=== PATIENT | male | born 1960 | race African-American/Black ===

== ENCOUNTER 2016-05-21 05:55 | Inpatient (IN) | payer OTHER ==
[2016-05-21 06:09] VITALS: BMI 34.2
[2016-05-21] MEDS ORDERED: ASPIRIN 81 MG CHEWABLE TABLETS PO ONE (06:12)
--- NOTE | 2016-05-21 06:12 | PDOC ---
History of Present Illness - General Chief Complaint: Chest Pain Stated Complaint: CHEST PAIN Time Seen by Provider: 05/21/16 06:07 History Source: Patient Exam Limitations: No Limitations - History of Present Illness Initial Comments: CHIEF COMPLAINT: 56 y/o afebrile male with PMH asthma, HLD, HTN, NIDDM, angina , ACS with 3 prior MIs (not currently on an anticoagulant) c/o chest tightness and SOB. HISTORY OF PRESENT ILLNESS: The patient states he woke up with his symptoms, took a shower and while in the shower began feeling lightheaded. He states he' s had a productive cough of green sputum for the past 2 days and currently has a slight headache. He denies fever, chills, syncope, runny nose, n/v/d, palpitations, abd pain, back pain. PCP is Dr. Hernandez. No Director Mortgage currently. Vital signs on arrival are notable for pulse of 110, temp of 99.3, BP of 190/ 127. REVIEW OF SYSTEMS: GENERAL/CONSTITUTIONAL: No fever/chills. No weakness. No weight change. HEAD, EYES, EARS, NOSE AND THROAT: No change in vision. No ear pain or discharge. No sore throat. CARDIOVASCULAR: +chest pain and shortness of breath. RESPIRATORY: +productive cough of green sputum. No wheezing or hemoptysis. GASTROINTESTINAL: No abd pain, nausea, vomiting, diarrhea. GENITOURINARY: No dysuria, frequency, or change in urination. MUSCULOSKELETAL: No joint or muscle swelling or pain. No neck or back pain. SKIN: No rash or easy bruising. NEUROLOGIC: +headache. No vertigo, loss of consciousness, or loss of sensation. PHYSICAL EXAM: GENERAL: The patient is awake, alert, and fully oriented, in no acute distress. HEAD: Normal with no signs of trauma. ENT: Pupils equal, round and reactive to light, extraocular movements intact, sclera anicteric, conjunctiva clear. Neck supple. LUNGS: Clear to auscultation bilaterally. Normal excursion. No respiratory distress or use of accessory muscles. Cough with deep inspiration. CV: Rapid rate/regular rhythm, S1/S2, no MRG. Cap refill < 2 sec. ABDOMEN: Soft, non-distended, non-tender even to deep palpation, no hepatomegaly or splenomegaly, no masses. EXTREMITIES: Normal range of motion, no edema. NEUROLOGICAL: Normal speech, normal gait. CN II-XII grossly intact. PSYCH: Normal mood, normal affect. SKIN: Warm, dry, normal turgor, no rashes or lesions noted. Past History - Past Medical History Allergies/Adverse Reactions: Allergies Allergy/AdvReac Type Severity Reaction Status Date / Time IRMA Inhibitors Allergy Verified 02/18/16 16:56 Home Medications: Ambulatory Orders Albuterol Sulfate Inhaler - [Ventolin HFA Inhaler -] 2 inh PO Q4H #1 inh Atorvastatin Ca [Lipitor] 40 mg PO HS 30 Days 12/19/15 Nicotine [Nicotine Patch] 1 each TD DAILY 14 Days 12/19/15 Amlodipine Besylate [Norvasc -] 10 mg PO DAILY #30 tablet 02/22/16 Carvedilol [Coreg -] 25 mg PO BID #30 tablet 02/22/16 Furosemide [Lasix -] 40 mg PO BID@0600,1400 #60 tablet 02/22/16 Glipizide Xl [Glucotrol Xl -] 5 mg PO DAILY@0700 #60 tab.er.24 02/22/16 Hydralazine HCl [Apresoline -] 100 mg PO TID #180 tablet 02/22/16 Isosorbide Mononitrate [Imdur -] 30 mg PO DAILY #30 tab.sr.24h 02/22/16 Spironolactone [Aldactone] 50 mg PO DAILY #30 tablet 02/22/16 Valsartan [Diovan] 320 mg PO DAILY #60 tablet 02/22/16 Anemia: No Asthma: No Cancer: No Cardiac Disorders: Yes (CARDIOMEGALY, heart attack-1995, no stents) CVA: No COPD: No CHF: No Dementia: No Diabetes: Yes GI Disorders: No Disorders: No HTN: Yes Hypercholesterolemia: Yes Kidney Stones: No Liver Disease: No Suicide Attempt (Hx): No Seizures: No Thyroid Disease: No - Surgical History Abdominal Surgery: No Appendectomy: No Cardiac Surgery: No Cholecystectomy: No Lung Surgery: No Neurologic Surgery: No Orthopedic Surgery: Yes (old orthopedic injury fractured left ankle x2) - Reproductive History Testicular Surgery: No - Immunization History Immunization Up to Date: Yes - Psycho/Social/Smoking Cessation Hx Anxiety: No Suicidal Ideation: No Smoking Status: No Smoking History: Unknown if ever smoked Have you smoked in the past 12 months: Yes Number of Cigarettes Smoked Daily: 4 'Breaking Loose' booklet given: 02/18/16 Hx Alcohol Use: No Drug/Substance Use Hx: No Substance Use Type: Cocaine Hx Substance Use Treatment: No Cardiac Specific PMH - Complaint Specific PMHX Pacemaker: No *Physical Exam - Vital Signs Last Vital Signs Temp Pulse Resp BP Pulse Ox 99.3 F 112 H 14 190/127 97 05/21/16 06:05 05/21/16 06:05 05/21/16 06:05 05/21/16 06:05 05/21/16 06:05 Heart Score/ECG Review - ECG Intrepretation Comment:: Twelve-lead EKG was performed and reviewed by Dr. Craig. There is sinus tachycardia. The axis is normal. The intervals are normal. There is a nonspecific T wave abnormality. Impression: Abnormal twelve-lead EKG ED Treatment Course - LABORATORY CBC & Chemistry Diagram: 05/21/16 05:17 05/21/16 05:17 - ADDITIONAL ORDERS Additional order review: 05/21/16 05:17 RBC 3.78 L MCV 90.2 MCHC 32.6 RDW 14.4 MPV 7.2 L Neutrophils % Y Lymphocytes % Y - RADIOLOGY Radiology Studies Ordered: Category Date Time Status CHEST PA & LAT [RAD] Stat Radiology 05/21/16 06:12 Taken - Medications Given in the ED: ED Medications Discontinued Medications Generic Name Dose Route Start Last Admin Trade Name Freq PRN Reason Stop Dose Admin Aspirin 162 mg 05/21/16 06:12 05/21/16 06:52 Asa - PO 05/21/16 06:13 162 mg ONCE ONE Administration Nitroglycerin 1 inch 05/21/16 06:24 05/21/16 06:52 Nitro-Bid 2% Paste - TD 05/21/16 06:25 1 inch ONCE ONE Administration Medical Decision Making - Medical Decision Making A/P: 56 y/o tachycardic male with CP and SOB this morning with 2 days of green productive cough. Will do Chest pain and Septic work up. CXR IMPRESSION: Minimal bilateral pleural effusions with questionable left basilar infiltrate. I am signing this patient out to my colleague: MAHENDRA Mckoy In brief, this patient is being seen in the ED for a chief complaint of: CP and SOB I have completed the initial assessment interview note and have ordered: Labs, EKG, CXR, UA, ASA, 1 inch nitro paste I have reviewed the following results: EKG, CXR Pending results are: rest Please call the PCP: Mary Plan for disposition is as follows: Pending *DC/Admit/Observation/Transfer Diagnosis at time of Disposition: Chest pain, Shortness of breath - Referrals Referrals: Lenny Hernandez MD [Primary Care Provider] -
--- NOTE | 2016-05-21 06:22 | PDOC ---
*Physical Exam - Vital Signs Last Vital Signs Temp Pulse Resp BP Pulse Ox 99.3 F 112 H 14 190/127 97 05/21/16 06:05 05/21/16 06:05 05/21/16 06:05 05/21/16 06:05 05/21/16 06:05 Medical Decision Making - Medical Decision Making 05/21/16 06:22 agree with care from ADELA Henning *DC/Admit/Observation/Transfer Diagnosis at time of Disposition: Chest pain, Shortness of breath - Referrals Referrals: Lenny Hernandez MD [Primary Care Provider] - - Patient Instructions - Post Discharge Activity
[2016-05-21] MEDS ORDERED: NITROGLYCERIN 2% OINTMENT - 1GM PACKET TD ONE (06:24)
[2016-05-21 06:35] LABS: MCH 29.4 pg (25.7-33.7); MCHC 32.6 g/dl (32.0-35.9); MEAN CELL VOLUME 90.2 fl (80-96); MEAN PLT VOLUME 7.2 fl (7.5-11.1); PLATELET COUNT 441 K/MM3 (134-434); RDW 14.4 % (11.9-15.9); WHITE BLOOD COUNT 14.5 K/mm3 (4.0-10.0)
[2016-05-21 06:48] LABS: INR 1.18 (0.82-1.09)
[2016-05-21 06:59] LABS: ALBUMIN 3.4 g/dl (3.4-5.0); BILIRUBIN,TOTAL 0.6 mg/dL (0.2-1.0); CALCIUM 8.5 mg/dL (8.5-10.1); CREATININE 1.5 mg/dL (0.7-1.3); MAGNESIUM 2.3 mg/dL (1.8-2.4); TOT PROT 7.4 g/dl (6.4-8.2)
[2016-05-21 07:01] LABS: TROPONIN I 0.05 ng/ml (0.00-0.05)
--- NOTE | 2016-05-21 07:40 | PDOC ---
*Physical Exam - Vital Signs Last Vital Signs Temp Pulse Resp BP Pulse Ox 99.3 F 103 H 20 178/128 98 05/21/16 06:05 05/21/16 07:31 05/21/16 07:31 05/21/16 07:31 05/21/16 07:31 ED Treatment Course - LABORATORY CBC & Chemistry Diagram: 05/21/16 05:17 05/21/16 05:17 - ADDITIONAL ORDERS Additional order review: Laboratory Results 05/21/16 05/21/16 05/21/16 05:17 05:17 05:17 INR Sodium Potassium Chloride Carbon Dioxide Anion Gap BUN Creatinine Creat Clearance w eGFR Random Glucose Lactic Acid 1.295 Calcium Magnesium Total Bilirubin AST ALT Alkaline Phosphatase Creatine Kinase Creatine Kinase Index CK-MB (CK-2) CK-MB (CK-2) Rel Index Cancelled Troponin I Total Protein Albumin Blood Type O POSITIVE Antibody Screen Negative 05/21/16 05/21/16 05:17 05:17 INR 1.18 H Sodium 139 Potassium 4.2 Chloride 103 Carbon Dioxide 23 Anion Gap 13 BUN 12 D Creatinine 1.5 H Creat Clearance w eGFR 48.59 Random Glucose 228 H D Lactic Acid Calcium 8.5 Magnesium 2.3 Total Bilirubin 0.6 AST 34 D ALT 54 Alkaline Phosphatase 166 H Creatine Kinase 181 D Creatine Kinase Index 0.8 CK-MB (CK-2) 1.400 CK-MB (CK-2) Rel Index Troponin I 0.05 D Total Protein 7.4 Albumin 3.4 Blood Type Antibody Screen 05/21/16 05:17 RBC 3.78 L MCV 90.2 MCHC 32.6 RDW 14.4 MPV 7.2 L Neutrophils % 72.0 Lymphocytes % 21.0 Monocytes % 6.0 Eosinophils % 1.0 - Medications Given in the ED: ED Medications Discontinued Medications Generic Name Dose Route Start Last Admin Trade Name Freq PRN Reason Stop Dose Admin Aspirin 162 mg 05/21/16 06:12 05/21/16 06:52 Asa - PO 05/21/16 06:13 162 mg ONCE ONE Administration Nitroglycerin 1 inch 05/21/16 06:24 05/21/16 06:52 Nitro-Bid 2% Paste - TD 05/21/16 06:25 1 inch ONCE ONE Administration Medical Decision Making - Medical Decision Making 05/21/16 07:40 Signout received from ADELA Henning. Briefly, this is a 56 year old male with a history of asthma, HLD, HTN, NIDDM, angina, CAD with 3 prior MIs who presented to the ED overnight complaining of chest tightness, SOB, and cough productive of green sputum. V/s on arrival were notable for BP 190/127 and P 112. BP did not improve significantly with administration of 1" nitro paste. ASA given. Labs notable for WBC 14.5, Cr 1.5 (baseline), troponin 0.[address] Hernandez. He does not follow with a information systems consultant. Xray reviewed with radiologist: Left base infiltrate, pulmonary vascular congestion, small pleural effusions L>R. Patient re-examined and complaining of chest pain. EKG repeated: Sinus tachycardia at 101bpm with 1.5mm JADA in V3, TWI in V5 V6, inferior q waves all seen on prior EKG of seen on prior EKG of 03/21/25 Plan: -Ceftriaxone/Azithromycin for CAP -20mg Lasix IVP x 1 -Administer home Coreg/hydralazine/aldtactone/Diovan/Imdur -Admit *DC/Admit/Observation/Transfer Diagnosis at time of Disposition: Chest pain, Shortness of breath, Hypertensive urgency Pneumonia Qualifiers: Pneumonia type: due to unspecified organism Laterality: left Lung location: lower lobe of lung Qualified Code(s): J18.1 - Lobar pneumonia, unspecified organism - Discharge Dispostion Admit: Yes - Referrals - Patient Instructions - Post Discharge Activity
[2016-05-21] MEDS ORDERED: AZITHROMYCIN IVPB 500 MG in DEXTROSE 5%-WATER - 250 ML IVPB ONE (07:43)
[2016-05-21] MEDS ORDERED: CEFTRIAXONE 1 GM in DEXTROSE 5%-WATER - 50 ML IVPB ONE (07:43)
[2016-05-21] MEDS ORDERED: FUROSEMIDE 40 MG/4 ML INJECTABLE VIAL IVPUSH ONE (07:46)
[2016-05-21] MEDS ORDERED: ISOSORBIDE MONONITRATE 30 MG TAB.SR.24H (FP) PO ONE (07:57)
[2016-05-21] MEDS ORDERED: SPIRONOLACTONE 25 MG TABLET (FP) PO ONE (07:57)
[2016-05-21] MEDS ORDERED: amLODIPine BESYLATE 10 MG TABLET (FP) PO ONE (07:57)
[2016-05-21] MEDS ORDERED: CARVEDILOL 25 MG TABLET (FP) PO ONE (07:57)
[2016-05-21] MEDS ORDERED: VALSARTAN 160 MG TABLET (UD) PO ONE (07:57)
[2016-05-21 09:16] LABS: URINE APPEARANCE CLEAR; URINE BILIRUBIN NEGATIVE (NEGATIVE); URINE BLOOD NEGATIVE (NEGATIVE); URINE COLOR STRAW; URINE GLUCOSE (UA) 1+ (NEGATIVE); URINE KETONE NEGATIVE (NEGATIVE); URINE LEUK ESTERASE NEGATIVE (NEGATIVE); URINE NITRITE NEGATIVE (NEGATIVE); URINE UROBILINOGEN NEGATIVE E.U./dl (0.2-1.0)
[2016-05-21 09:17] LABS: URINE PROTEIN 1+ (NEGATIVE)
[2016-05-21 10:02] LABS: URINE HYALINE CAST 3 /lpf; URINE RBC <1 /hpf (0-3)
--- NOTE | 2016-05-21 10:17 | PN ---
Progress Note (short form) - Note Progress Note: IMP: Chronic uncontrolled HTN CAD, non-obstructive Chronic Diastolic CHF secondary to HTN heart dz DM CKD Dilated aortic root, mild PNA Cocaine abuse REC: IV Lasix Abx as per primary team Utox Last admission regimen included: Diovan 320, Hydralazine 100mg TID, Norvasc 10, Aldactone 50 and Coreg 25 BID. Would try to avoid beta blockers with hx cocaine use.
--- NOTE | 2016-05-21 10:20 | HP ---
CHIEF COMPLAINT: midsternal chest pain and shortness of breath on exertion PCP: Dr. Hernandez HISTORY OF PRESENT ILLNESS: This is a 56 year old male with a past medical history of MIx3 (no cardiac stents), HTN, CKD, HLD, AAA 3.6 cm, cardiomegaly who presented to the ED today with a one day history of CP and SOB and cough beginning last evening. Pt was at home relaxing when pain occurred. Denies abdominal pain, N/V/D, fever. ER course was notable for: (1) BP 190/127 treated with 1" NTG paste and home meds restarted with current relief of 139/79 (2) troponin negative 0.05 (3) CXR with finding of LLL PNA on ceftriaxone and zithromax Recent Travel: pt denies PAST MEDICAL HISTORY: CA x 3 NIDDM HTN CKD HLD AAA 3.6cm on 08/03/15 chronic lower back pain PAST SURGICAL HISTORY: R Testicular torsion s/p repair Social History: Smokinppw Alcohol: 3 beers almost every day ( had 2 last evening) Drugs: marijuana daily, h/o cocaine, last use 05/17/16 Family History: mother alive with HTN father in his 20s or 30s, carbon monoxide poisoning 2 brothers, 1 with knee problems, 1 with HTN 1 sister with HTN and DM allergies: IRMA Inhibitors Allergy (Verified 02/18/16 16:56) HOME MEDICATIONS: Home Medications Medication Instructions Recorded Albuterol Sulfate Inhaler - 2 inh PO Q4H #1 inh 12/05/15 [Ventolin HFA Inhaler -] Atorvastatin Ca [Lipitor] 40 mg PO HS 30 Days 12/19/15 Nicotine [Nicotine Patch] 1 each TD DAILY 14 Days 12/19/15 Amlodipine Besylate [Norvasc -] 10 mg PO DAILY #30 tablet 02/22/16 Carvedilol [Coreg -] 25 mg PO BID #30 tablet 02/22/16 Furosemide [Lasix -] 40 mg PO BID@0600,1400 #60 tablet 02/22/16 Glipizide Xl [Glucotrol Xl -] 5 mg PO DAILY@0700 #60 tab.er.24 02/22/16 Hydralazine HCl [Apresoline -] 100 mg PO TID #180 tablet 02/22/16 Isosorbide Mononitrate [Imdur -] 30 mg PO DAILY #30 tab.sr.24h 02/22/16 Spironolactone [Aldactone] 50 mg PO DAILY #30 tablet 02/22/16 Valsartan [Diovan] 320 mg PO DAILY #60 tablet 02/22/16 REVIEW OF SYSTEMS CONSTITUTIONAL: Absent: fever, chills, diaphoresis, +generalized weakness, malaise, loss of appetite, weight change HEENT: Absent: rhinorrhea, nasal congestion, throat pain, throat swelling, difficulty swallowing, mouth swelling, ear pain, eye pain, visual changes CARDIOVASCULAR: Absent: , syncope, palpitations, irregular heart rate, lightheadedness, peripheral edema with + CP RESPIRATORY: Absent: , dyspnea with exertion, orthopnea, wheezing, stridor, hemoptysis with + sob, cough GASTROINTESTINAL: Absent: abdominal pain, abdominal distension, nausea, vomiting, diarrhea, constipation, melena, hematochezia GENITOURINARY: Absent: dysuria, frequency, urgency, hesitancy, hematuria, flank pain, genital pain MUSCULOSKELETAL: Absent: myalgia, arthralgia, joint swelling, back pain, neck pain SKIN: Absent: rash, itching, pallor HEMATOLOGIC/IMMUNOLOGIC: Absent: easy bleeding, easy bruising, lymphadenopathy, frequent infections ENDOCRINE: Absent: unexplained weight gain, unexplained weight loss, heat intolerance, cold intolerance NEUROLOGIC: Absent: headache, focal weakness or paresthesias, dizziness, unsteady gait, seizure, mental status changes, bladder or bowel incontinence PSYCHIATRIC: Absent: anxiety, depression, suicidal or homicidal ideation, hallucinations. PHYSICAL EXAMINATION GENERAL: Awake, alert, and fully oriented, in no acute distress. HEAD: Normal with no signs of trauma. EYES: Pupils equal, round and reactive to light, extraocular movements intact, sclera anicteric, conjunctiva clear. No lid lag. EARS, NOSE, THROAT: Ears normal, nares patent, oropharynx clear without exudates. Moist mucous membranes. NECK: Normal range of motion, supple without lymphadenopathy, JVD, or masses. LUNGS: Breath sounds equal, diminished bilaterally to auscultation. No wheezes, and no crackles. No accessory muscle use. On 4 L n/c HEART: Regular rate and rhythm, normal S1 and S2 without murmur, rub or gallop. ABDOMEN: Soft, nontender, not distended, normoactive bowel sounds, no guarding, no rebound, no masses. No hepatomegaly or splenomegaly. MUSCULOSKELETAL: Normal range of motion at all joints. No bony deformities or tenderness. No CVA tenderness. UPPER EXTREMITIES: 2+ pulses, warm, well-perfused. No cyanosis. No clubbing. No peripheral edema. LOWER EXTREMITIES: 2+ pulses, warm, well-perfused. No calf tenderness. No peripheral edema. NEUROLOGICAL: Cranial nerves II-XII intact. Normal speech. Normal gait. PSYCHIATRIC: Cooperative. Good eye contact. Appropriate mood and affect. SKIN: Warm, dry, normal turgor, no rashes or lesions noted, normal capillary refill. ASSESSMENT/PLAN: 1. Sepsis 2nd to CAP -ceftriaxone 1 gm and azithromycin 250 mg daily -follow blood cultures -monitor WBC, temp 2. Drug abuse -cessation discussion 3. chest pain -monitor cardiac on telemetry for arrythmia -cardiology consult -trend troponins -continue home meds 4. HTN -continue hypertension home meds -monitor trends of blood pressures -educate compliance with medications 5. smoking -cessation discussion 6. NIDDM -nutrition education -fingerstick monitoring -hold home med -insulin sliding scale -DM diet 7. CKD -avoid nephrotoxic meds as possible -at baseline 8. Prophylaxis -SQ heparin 5000 bid -early ambulation Visit type - Emergency Visit Emergency Visit: Yes ED Registration Date: 05/21/16 Care time: The patient presented to the Emergency Department on the above date and was hospitalized for further evaluation of their emergent condition. - New Patient This patient is new to me today: Yes Date on this admission: 05/21/16 - Critical Care Critical Care patient: No
[2016-05-21] MEDS ORDERED: ALBUTEROL SO4 6.7 GM HFA INHALER IH PRN (11:02)
[2016-05-21] MEDS ORDERED: NICOTINE TD SCH (11:15)
--- NOTE | 2016-05-21 11:26 | EKG ---
Test Reason : Blood Pressure : / mmHG Vent. Rate : 112 BPM Atrial Rate : 112 BPM P-R Int : 158 ms QRS Dur : 090 ms QT Int : 354 ms P-R-T Axes : 054 027 040 degrees QTc Int : 483 ms SINUS TACHYCARDIA POSSIBLE LEFT ATRIAL ENLARGEMENT NONSPECIFIC T WAVE ABNORMALITY ABNORMAL ECG WHEN COMPARED WITH ECG OF 19-FEB-2016 09:33, PREMATURE VENTRICULAR COMPLEXES ARE NO LONGER PRESENT Confirmed by KIKI CHILDRESS, NIK ([id number]) on 05/21/2016 11:25:59 AM Referred By: Confirmed By:NIK SWANSON MD
--- NOTE | 2016-05-21 11:29 | EKG ---
Test Reason : Blood Pressure : / mmHG Vent. Rate : 101 BPM Atrial Rate : 101 BPM P-R Int : 164 ms QRS Dur : 100 ms QT Int : 372 ms P-R-T Axes : 056 019 035 degrees QTc Int : 482 ms SINUS TACHYCARDIA POSSIBLE LEFT ATRIAL ENLARGEMENT NONSPECIFIC T WAVE ABNORMALITY ABNORMAL ECG WHEN COMPARED WITH ECG OF 21-MAY-2016 06:03, NO SIGNIFICANT CHANGE WAS FOUND Confirmed by NIK SWANSON MD ([id number]) on 05/21/2016 11:28:51 AM Referred By: Confirmed By:NIK SWANSON MD
[2016-05-21 11:57] LABS: URINE MARIJUANA THC NEGATIVE ng/ml (CUTOFF=50)
[2016-05-21 13:04] LABS: TROPONIN I 0.04 ng/ml (0.00-0.05)
[2016-05-21] MEDS: hydrALAZINE HCL 50 MG TABLET (FP) PO SCH ×2 (14:01→21:04)
[2016-05-21] MEDS: FUROSEMIDE 40 MG TABLET (FP) PO SCH (14:01)
--- NOTE | 2016-05-21 14:19 | CONS ---
DATE OF CONSULTATION: 05/21/2016 REQUESTING PROVIDER: Elvira Mckoy NP REASON FOR CONSULTATION: Hypertensive urgency. HISTORY OF PRESENT ILLNESS: This 56-year-old man with chronic diastolic CHF secondary to chronic uncontrolled hypertension, hypertensive heart disease, nonadherence to medical therapy, diabetes, chronic renal insufficiency, anemia, moderate 2-vessel CAD on catheterization in 2010, mildly dilated ascending aorta , who presented to the ER with several days of cough, chills, found to have right lower lobe infiltrate on chest x-ray. Blood pressure was found to be markedly elevated 178/128. He states he has not been taking his medications regularly and used cocaine 3-4 days ago. He denies edema, PND, orthopnea, or syncope. No recent palpitations. PAST MEDICAL HISTORY: As above. ALLERGIES: He is allergic to IRMA INHIBITORS. MEDICATIONS: His oral antihypertensive regimen on the last admission included Coreg 25 b.i.d., Diovan 320, hydralazine 100 mg 3 times daily, Norvasc 10 daily, Lasix 40 daily, Aldactone 50 daily. FAMILY HISTORY: Noncontributory. SOCIAL HISTORY: He smokes 1 pack of cigarettes per week. He uses cocaine, lastly 3 days ago. He drinks beer daily. PHYSICAL EXAMINATION: Vital signs: Temperature 99.3, blood pressure 170/120, pulse 103, O2 saturation 98 on room air. HEENT: Anicteric. Neck: No bruits. 2+ carotid pulses. Heart: S1, S2, regular. S4 gallop. Chest: Rales at the right base. Abdomen: Soft. Extremities: No edema. DIAGNOSTIC DATA: EKG with sinus tachycardia, non-specific ST changes. LABORATORIES: White count 14.5, hematocrit 34, platelets 441. INR 1.2. Sodium 139, creatinine 1.5, alkaline phosphatase 166, CK troponin negative. BNP 1650. Urine with 1+ protein, 1+ glucose. IMPRESSION: 1. Pneumonia. 2. Chronic uncontrolled hypertension. 3. Coronary artery disease, nonobstructive. 4. Chronic diastolic CHF secondary to hypertensive heart disease. 5. Diabetes. 6. Chronic renal insufficiency. 7. Mildly dilated aortic root. 8. Cocaine abuse. RECOMMENDATIONS: 1. IV Lasix. 2. Antibiotics as per primary team. 3. Check uTox. 4. Oral antihypertensive regimen. Last admission included Diovan 320, hydralazine 100 t.i.d., Norvasc 10, Aldactone 50, and carvedilol 25 b.i.d. Will try to avoid beta-blockers if possible given his history of cocaine use; if to be resumed would use agent with mixed alpha and beta effect Thank you for the consultation. LETTY JESUS M.D. [id number] MTDD
[2016-05-21] MEDS ORDERED: INSULIN (NOVOLOG) ASPART 100 UNITS/ML 10ML VIAL ONE (17:40)
[2016-05-21] MEDS: INSULIN SLIDING SCALE (NOVOLOG) 1 VIAL SQ SCH ×2 (17:46→21:49)
[2016-05-21] MEDS: HEPARIN NA (PORCINE) 5,000 UNITS/ML 1ML VIAL SQ SCH (17:47)
[2016-05-21] MEDS: ATORVASTATIN CA 40 MG TABLET (FP) PO SCH (21:04)
[2016-05-21] MEDS ORDERED: CARVEDILOL 25 MG TABLET (FP) PO SCH (22:00)
[2016-05-22] MEDS: HEPARIN NA (PORCINE) 5,000 UNITS/ML 1ML VIAL SQ SCH ×3 (03:38→17:44)
[2016-05-22] MEDS: FUROSEMIDE 40 MG TABLET (FP) PO SCH ×2 (05:51→13:10)
[2016-05-22] MEDS: hydrALAZINE HCL 50 MG TABLET (FP) PO SCH ×3 (05:52→21:53)
[2016-05-22] MEDS: INSULIN SLIDING SCALE (NOVOLOG) 1 VIAL SQ SCH ×4 (06:06→21:58)
[2016-05-22 07:34] LABS: BASOPHIL 0.6 % (0-2.0); EOSINOPHIL 2.6 % (0-4.5); MCH 30.1 pg (25.7-33.7); MCHC 32.3 g/dl (32.0-35.9); MEAN CELL VOLUME 93.2 fl (80-96); MEAN PLT VOLUME 7.7 fl (7.5-11.1); NEUTROPHILS 70.1 % (42.8-82.8); PLATELET COUNT 389 K/MM3 (134-434); RDW 14.6 % (11.9-15.9); WHITE BLOOD COUNT 9.1 K/mm3 (4.0-10.0)
[2016-05-22 08:20] LABS: BILIRUBIN,TOTAL 0.4 mg/dL (0.2-1.0); CALCIUM 8.8 mg/dL (8.5-10.1); CREATININE 1.4 mg/dL (0.7-1.3); TOT PROT 6.9 g/dl (6.4-8.2)
[2016-05-22] MEDS: VALSARTAN 160 MG TABLET (UD) PO SCH ×2 (08:25→09:42)
[2016-05-22] MEDS: SPIRONOLACTONE 25 MG TABLET (FP) PO SCH ×2 (08:25→09:43)
[2016-05-22] MEDS: ISOSORBIDE MONONITRATE 30 MG TAB.SR.24H (FP) PO SCH ×2 (08:25→09:39)
[2016-05-22] MEDS: amLODIPine BESYLATE 10 MG TABLET (FP) PO SCH ×2 (08:26→09:38)
[2016-05-22] MEDS: NICOTINE 14 MG/24 HOURS TOPICAL PATCH TD SCH (09:33)
--- NOTE | 2016-05-22 09:33 | PN ---
Progress Note, Physician Chief Complaint: feeling better TELE: 7 beat runs NSVT - Current Medication List Current Medications: Active Medications Albuterol Sulfate (Ventolin Hfa Inhaler -) 2 puff IH Q4H PRN PRN Reason: WHEEZING Amlodipine Besylate (Norvasc -) 10 mg PO DAILY [facility] Last Admin: 05/22/16 08:26 Dose: 10 mg Aspirin (Ecotrin -) 81 mg PO DAILY [facility] Atorvastatin Calcium (Lipitor -) 40 mg PO HS [facility] Last Admin: 05/21/16 21:04 Dose: 40 mg Furosemide (Lasix -) 40 mg PO BID@0600,1400 [facility] Last Admin: 05/22/16 05:51 Dose: 40 mg Heparin Sodium (Porcine) (Heparin -) 5,000 unit SQ Q8H-IV [facility] Last Admin: 05/22/16 03:38 Dose: 5,000 unit Hydralazine HCl (Apresoline -) 100 mg PO TID [facility] Last Admin: 05/22/16 05:52 Dose: 100 mg Azithromycin 250 mg/ Dextrose 250 mls @ 250 mls/hr IVPB DAILY [facility] Stop: 05/25/16 10:59 Ceftriaxone Sodium (Rocephin 1gm Ivpb (Pre-Docked)) 50 mls @ 100 mls/hr IVPB DAILY [facility] Insulin Aspart (Novolog Vial Sliding Scale -) 0 vial SQ ACHS [facility] PRN Reason: Protocol Last Admin: 05/22/16 06:06 Dose: 4 units Isosorbide Mononitrate (Imdur -) 30 mg PO DAILY [facility] Last Admin: 05/22/16 08:25 Dose: 30 mg Nicotine (Nicoderm Patch -) 14 mg TD DAILY [facility] Spironolactone (Aldactone -) 50 mg PO DAILY [facility] Last Admin: 05/22/16 08:25 Dose: 50 mg Valsartan (Diovan -) 320 mg PO DAILY [facility] Last Admin: 05/22/16 08:25 Dose: 320 mg - Objective Vital Signs: Vital Signs Temperature 97.8 F 05/22/16 07:39 Pulse Rate 94 H 05/22/16 07:39 Respiratory Rate 18 05/22/16 07:39 Blood Pressure 164/117 05/22/16 07:39 O2 Sat by Pulse Oximetry (%) 97 05/21/16 21:00 Constitutional: Yes: No Distress Cardiovascular: Yes: Regular Rate and Rhythm Respiratory: Yes: CTA Bilaterally Gastrointestinal: Yes: Soft Edema: No Neurological: Yes: Alert Labs: CBC, BMP 05/22/16 05:10 05/22/16 05:10 INR, PTT INR 1.18 (0.82-1.09) H 05/21/16 05:17 Assessment/Plan Chronic uncontrolled HTN CAD, non-obstructive NSVT Chronic Diastolic CHF secondary to HTN heart dz DM CKD Dilated aortic root, mild PNA Cocaine abuse REC: IV Lasix Change Norvasc to Procardia Repeat echo Keep lytes normalized Abx as per primary team Utox + cocaine, avoid beta blockers
[2016-05-22] MEDS: CEFTRIAXONE 50 ML IVPB SCH (09:34)
[2016-05-22] MEDS: ASPIRIN COATED 81 MG TABLET.EC PO SCH (09:34)
[2016-05-22] MEDS ORDERED: NIFEdipine E.R. 30 MG TABLET (FP) PO SCH (10:00)
[2016-05-22] MEDS: AZITHROMYCIN IVPB 250 MG in DEXTROSE 5%-WATER - 250 ML IVPB SCH (10:30)
[2016-05-22 11:57] LABS: MAGNESIUM 2.3 mg/dL (1.8-2.4)
[2016-05-22 13:35] LABS: TROPONIN I 0.02 ng/ml (0.00-0.05)
--- NOTE | 2016-05-22 17:07 | PN ---
Physical Exam: SUBJECTIVE: Patient seen and examined at bedside wants to go home "I Feel Great" telemetry reviewed shows NSVT OBJECTIVE: Vital Signs Period Temp Pulse Resp BP Sys/Caal Pulse Ox Last 24 Hr 97.4 F-99.1 F 86-94 18-20 164-173/103-117 96-97 GENERAL: The patient is awake, alert, and fully oriented, in no acute distress. ENT: moist mucous membranes. NECK: Trachea midline, full range of motion, supple. LUNGS: Breath sounds equal, clear to auscultation bilaterally HEART: Regular rate and rhythm, S1, S2 without murmur. No JVD no hepatojugular reflux ABDOMEN: Soft, nontender, nondistended, normoactive bowel sounds, no guarding, no rebound EXTREMITIES: Trace non pitting LLE edema. 1+ pitting RLE edema NEUROLOGICAL: Cranial nerves II through XII grossly intact. Normal speech PSYCH: Normal mood, normal affect. Laboratory Results - last 24 hr 05/21/16 05/22/16 05/22/16 21:35 05:10 05:10 WBC 9.1 D RBC 3.80 L Hgb 11.4 L Hct 35.4 MCV 93.2 MCHC 32.3 RDW 14.6 Plt Count 389 MPV 7.7 Neutrophils % 70.1 Lymphocytes % 20.7 Monocytes % 6.0 Eosinophils % 2.6 D Basophils % 0.6 Sodium 139 Potassium 4.2 Chloride 103 Carbon Dioxide 27 Anion Gap 9 BUN 17 D Creatinine 1.4 H Creat Clearance w eGFR 52.62 POC Glucometer 265 Random Glucose 199 H Hemoglobin A1c % Calcium 8.8 Magnesium 2.3 Total Bilirubin 0.4 D AST 21 D ALT 45 Alkaline Phosphatase 150 H Creatine Kinase 103 Troponin I 0.02 D Total Protein 6.9 Albumin 3.0 L Triglycerides 181 H D Cholesterol 177 D Total LDL Cholesterol 97 D HDL Cholesterol 40 D 05/22/16 05/22/16 05/22/16 05:10 05:35 05:49 WBC RBC Hgb Hct MCV MCHC RDW Plt Count MPV Neutrophils % Lymphocytes % Monocytes % Eosinophils % Basophils % Sodium Potassium Chloride Carbon Dioxide Anion Gap BUN Creatinine Creat Clearance w eGFR POC Glucometer 233 Random Glucose Hemoglobin A1c % 6.7 H Calcium Magnesium Cancelled Total Bilirubin AST ALT Alkaline Phosphatase Creatine Kinase Troponin I Total Protein Albumin Triglycerides Cholesterol Total LDL Cholesterol HDL Cholesterol 05/22/16 05/22/16 11:52 15:30 WBC RBC Hgb Hct MCV MCHC RDW Plt Count MPV Neutrophils % Lymphocytes % Monocytes % Eosinophils % Basophils % Sodium Potassium Chloride Carbon Dioxide Anion Gap BUN Creatinine Creat Clearance w eGFR POC Glucometer 255 148 Random Glucose Hemoglobin A1c % Calcium Magnesium Total Bilirubin AST ALT Alkaline Phosphatase Creatine Kinase Troponin I Total Protein Albumin Triglycerides Cholesterol Total LDL Cholesterol HDL Cholesterol Active Medications Generic Name Dose Route Start Last Admin Trade Name Freq PRN Reason Stop Dose Admin Albuterol Sulfate 2 puff 05/21/16 11:02 Ventolin Hfa Inhaler - IH Q4H PRN WHEEZING Aspirin 81 mg 05/22/16 10:00 05/22/16 09:34 Ecotrin - PO 81 mg DAILY PUSHPA Administration Atorvastatin Calcium 40 mg 05/21/16 22:00 05/21/16 21:04 Lipitor - PO 40 mg HS PUSHPA Administration Furosemide 40 mg 05/21/16 14:00 05/22/16 13:10 Lasix - PO 40 mg BID@0600,1400 PUSHPA Administration Heparin Sodium (Porcine) 5,000 unit 05/21/16 18:00 05/22/16 09:34 Heparin - SQ 5,000 unit Q8H-IV PUSHPA Administration Hydralazine HCl 100 mg 05/21/16 14:00 05/22/16 13:10 Apresoline - PO 100 mg TID PUSHPA Administration Azithromycin 250 mg/ Dextrose 250 mls @ 250 mls/hr 05/22/16 10:00 05/22/16 10: 30 IVPB 05/25/16 10:59 250 mls/hr DAILY PUSHPA Administration Ceftriaxone Sodium 50 mls @ 100 mls/hr 05/22/16 10:00 05/22/16 09:34 Rocephin 1gm Ivpb (Pre-Docked) IVPB 100 mls/hr DAILY PUSHPA Administration Insulin Aspart 0 vial 05/21/16 16:30 05/22/16 16:05 Novolog Vial Sliding Scale - SQ Not Given ACHS PUSHPA Protocol Isosorbide Mononitrate 30 mg 05/22/16 10:00 05/22/16 09:39 Imdur - PO Not Given DAILY PUSHPA Nicotine 14 mg 05/22/16 10:00 05/22/16 09:33 Nicoderm Patch - TD 14 mg DAILY PUSHPA Administration Nifedipine 30 mg 05/22/16 16:00 Procardia Xl - PO DAILY [facility] Nifedipine 60 mg 05/23/16 10:00 Procardia Xl - PO DAILY PUSHPA Spironolactone 50 mg 05/22/16 10:00 05/22/16 09:43 Aldactone - PO Not Given DAILY PUSHPA Valsartan 320 mg 05/22/16 10:00 05/22/16 09:42 Diovan - PO Not Given DAILY PUSHPA ASSESSMENT/PLAN: 56M with extensive cardiac history presents to the hospital with chest pain in the setting of recent cocaine use and sepsis found to have a Pneumonia. Sepsis secondary to community acquired pneumonia: leukocystosis resolved tachycardia resolved continue ceftriaxone and azithromycin day 2 trend CBC atypical chest pain: r/o ACS troponin negative x3 lipid profile noted HbA1C 6.7 cardiology consult appreciated possibly secondary to recent cocaine use avoid beta blockers due to recent cocaine use CAD: s/p OH x3 in the past continue baby aspirin continue antihypertensives continue statin cardiology consult appreciated Chronic diastolic CHF: Continue lasix IV per cardiology Echo done and results noted: concentric Moderate LVH. LVEF WNL Moderate MR trace TR Trace AR no beta ar as recent cocaine use uncontrolled hypertension: SBP still in 160's-170's will give another dose of procardia 30mg now and increase procardia to 60mg po daily continue hydralazine continue Imdur Continue diovan continue aldactone continue lasix DM: fingersticks for BGM ACHS ISS Diabetic diet HLD: lipid profile noted continue statin CKD: patient has a documented history of chronic kidney disease Cr today is 1.4 which seems to be around his baseline after reviewing his labs on previous visits renally dose all medications avoid nephrotoxic meds Nicotine dependance: nicotine patch patient counselled in detail about harmful effects of smoking does not seem interested in smoking cessation Cocaine abuse: counselled in detail about the harmful cardiac effects especially given the fact that he has an extensive cardiac history including heart failure patient states he is not a regular user. i continued to explain that even occasional use can lead to cardiac complications including OH and sudden cardiac abdominal aortic aneurysm: 3.6cm will need outpatient follow up and routine ultrasonography for monitoring as patient is a smoker FEN: No IVF no electrolyte issues Diabetic diet PPx: HSQ no GI PPx needed as no major or minor criteria met no need for physical therapy as patient is ambulating will assess need for PT consult on a daily basis Visit type - Emergency Visit Emergency Visit: Yes ED Registration Date: 05/21/16 Care time: The patient presented to the Emergency Department on the above date and was hospitalized for further evaluation of their emergent condition. - New Patient This patient is new to me today: Yes Date on this admission: 05/22/16 - Critical Care Critical Care patient: No - Discharge Referral Physician Referral: Lenny Esquivel MD ([facility]) (this is his PMD )
[2016-05-22] MEDS ORDERED: NIFEdipine E.R. 30 MG TABLET (FP) PO ONE ×2 (17:10→17:15)
--- NOTE | 2016-05-22 17:14 | PN ---
Teaching Attending Note Name of Resident: Lavell Castro ATTENDING PHYSICIAN STATEMENT I saw and evaluated the patient. I reviewed the resident's note and discussed the case with the resident. I agree with the resident's findings and plan as documented. Patient is comfortable, no further chest pain, but c/o headache due to nitro- paste Vital Signs Temperature 99.1 F 05/22/16 13:36 Pulse Rate 86 05/22/16 13:36 Respiratory Rate 18 05/22/16 09:00 Blood Pressure 171/110 05/22/16 13:36 O2 Sat by Pulse Oximetry (%) 96 05/22/16 09:00 CBCD WBC 9.1 K/mm3 (4.0-10.0) D 05/22/16 05:10 RBC 3.80 M/mm3 (4.00-5.60) L 05/22/16 05:10 Hgb 11.4 GM/dL (11.7-16.9) L 05/22/16 05:10 Hct 35.4 % (35.4-49) 05/22/16 05:10 MCV 93.2 fl (80-96) 05/22/16 05:10 MCHC 32.3 g/dl (32.0-35.9) 05/22/16 05:10 RDW 14.6 % (11.9-15.9) 05/22/16 05:10 Plt Count 389 K/MM3 (134-434) 05/22/16 05:10 MPV 7.7 fl (7.5-11.1) 05/22/16 05:10 CMP Sodium 139 mmol/L (136-145) 05/22/16 05:10 Potassium 4.2 mmol/L (3.5-5.1) 05/22/16 05:10 Chloride 103 mmol/L (98-107) 05/22/16 05:10 Carbon Dioxide 27 mmol/L (21-32) 05/22/16 05:10 Anion Gap 9 (8-16) 05/22/16 05:10 BUN 17 mg/dL (7-18) D 05/22/16 05:10 Creatinine 1.4 mg/dL (0.7-1.3) H 05/22/16 05:10 Creat Clearance w eGFR 52.62 (>60) 05/22/16 05:10 Random Glucose 199 mg/dL (74-106) H 05/22/16 05:10 Calcium 8.8 mg/dL (8.5-10.1) 05/22/16 05:10 Total Bilirubin 0.4 mg/dL (0.2-1.0) D 05/22/16 05:10 AST 21 U/L (15-37) D 05/22/16 05:10 ALT 45 U/L (12-78) 05/22/16 05:10 Alkaline Phosphatase 150 U/L (45-117) H 05/22/16 05:10 Total Protein 6.9 g/dl (6.4-8.2) 05/22/16 05:10 Albumin 3.0 g/dl (3.4-5.0) L 05/22/16 05:10 CARDIAC ENZYMES Creatine Kinase 103 IU/L (39-308) 05/22/16 05:10 Troponin I 0.02 ng/ml (0.00-0.05) D 05/22/16 05:10 Current Medications Generic Name Dose Route Start Last Admin Trade Name Freq PRN Reason Stop Dose Admin Albuterol Sulfate 2 puff 05/21/16 11:02 Ventolin Hfa Inhaler - IH Q4H PRN WHEEZING Aspirin 81 mg 05/22/16 10:00 05/22/16 09:34 Ecotrin - PO 81 mg DAILY PUSHPA Administration Atorvastatin Calcium 40 mg 05/21/16 22:00 05/21/16 21:04 Lipitor - PO 40 mg HS PUSHPA Administration Furosemide 40 mg 05/21/16 14:00 05/22/16 13:10 Lasix - PO 40 mg BID@0600,1400 PUSHPA Administration Heparin Sodium (Porcine) 5,000 unit 05/21/16 18:00 05/22/16 09:34 Heparin - SQ 5,000 unit Q8H-IV PUSHPA Administration Hydralazine HCl 100 mg 05/21/16 14:00 05/22/16 13:10 Apresoline - PO 100 mg TID PUSHPA Administration Azithromycin 250 mg/ Dextrose 250 mls @ 250 mls/hr 05/22/16 10:00 05/22/16 10: 30 IVPB 05/25/16 10:59 250 mls/hr DAILY PUSHPA Administration Ceftriaxone Sodium 50 mls @ 100 mls/hr 05/22/16 10:00 05/22/16 09:34 Rocephin 1gm Ivpb (Pre-Docked) IVPB 100 mls/hr DAILY PUSHPA Administration Insulin Aspart 0 vial 05/21/16 16:30 05/22/16 16:05 Novolog Vial Sliding Scale - SQ Not Given ACHS PUSHPA Protocol Isosorbide Mononitrate 30 mg 05/22/16 10:00 05/22/16 09:39 Imdur - PO Not Given DAILY PUSHPA Nicotine 14 mg 05/22/16 10:00 05/22/16 09:33 Nicoderm Patch - TD 14 mg DAILY PUSHPA Administration Nifedipine 60 mg 05/23/16 10:00 Procardia Xl - PO DAILY PUSHPA Nifedipine 30 mg 05/22/16 17:10 Procardia Xl - PO 05/22/16 17:11 ONCE ONE Spironolactone 50 mg 05/22/16 10:00 05/22/16 09:43 Aldactone - PO Not Given DAILY [facility] Valsartan 320 mg 05/22/16 10:00 05/22/16 09:42 Diovan - PO Not Given DAILY [facility] Home Medications Medication Instructions Recorded Albuterol Sulfate Inhaler - 2 inh PO Q4H #1 inh 12/05/15 [Ventolin HFA Inhaler -] Atorvastatin Ca [Lipitor] 40 mg PO HS 30 Days 12/19/15 Nicotine [Nicotine Patch] 1 each TD DAILY 14 Days 12/19/15 Amlodipine Besylate [Norvasc -] 10 mg PO DAILY #30 tablet 02/22/16 Carvedilol [Coreg -] 25 mg PO BID #30 tablet 02/22/16 Furosemide [Lasix -] 40 mg PO BID@0600,1400 #60 tablet 02/22/16 Glipizide Xl [Glucotrol Xl -] 5 mg PO DAILY@0700 #60 tab.er.24 02/22/16 Hydralazine HCl [Apresoline -] 100 mg PO TID #180 tablet 02/22/16 Isosorbide Mononitrate [Imdur -] 30 mg PO DAILY #30 tab.sr.24h 02/22/16 Spironolactone [Aldactone] 50 mg PO DAILY #30 tablet 02/22/16 Valsartan [Diovan] 320 mg PO DAILY #60 tablet 02/22/16 CXR: CM, Left basilar infiltrate ASSESSMENT AND PLAN: # Acute left basilar Infiltrate ; Pneumonia on IV antibiotic Rocephin/Zithromax continue # Acute chest pain most likely due to cocaine use with hx of CAD, AAA bypass continue ASA, LAsix continue Cardiology consult, seen by . # Hypertensive Urgency on Diovan , Procardia xl 60mg added, Hydralazine # T2DM on sliding scale continue # Cocaine abuse ,Coreg was on hold due to Cocaine use DVT Px; continue Coumadin
[2016-05-22] MEDS: ATORVASTATIN CA 40 MG TABLET (FP) PO SCH (21:53)
[2016-05-23] MEDS: HEPARIN NA (PORCINE) 5,000 UNITS/ML 1ML VIAL SQ SCH ×2 (01:23→09:03)
[2016-05-23] MEDS: hydrALAZINE HCL 50 MG TABLET (FP) PO SCH (06:04)
[2016-05-23] MEDS: INSULIN SLIDING SCALE (NOVOLOG) 1 VIAL SQ SCH (06:05)
[2016-05-23] MEDS: FUROSEMIDE 40 MG TABLET (FP) PO SCH (06:11)
[2016-05-23 08:14] LABS: MCH 29.7 pg (25.7-33.7); MCHC 32.2 g/dl (32.0-35.9); MEAN PLT VOLUME 7.5 fl (7.5-11.1); PLATELET COUNT 463 K/MM3 (134-434); RDW 14.4 % (11.9-15.9); WHITE BLOOD COUNT 10.7 K/mm3 (4.0-10.0)
[2016-05-23 08:45] LABS: ALBUMIN 3.3 g/dl (3.4-5.0); CALCIUM 9.4 mg/dL (8.5-10.1)
[2016-05-23 08:49] LABS: BILIRUBIN,TOTAL 0.7 mg/dL (0.2-1.0); CREATININE 1.5 mg/dL (0.7-1.3); TOT PROT 7.5 g/dl (6.4-8.2)
[2016-05-23] MEDS: NICOTINE 14 MG/24 HOURS TOPICAL PATCH TD SCH (09:03)
[2016-05-23] MEDS: VALSARTAN 160 MG TABLET (UD) PO SCH (09:03)
[2016-05-23] MEDS: ASPIRIN COATED 81 MG TABLET.EC PO SCH (09:03)
[2016-05-23] MEDS: SPIRONOLACTONE 25 MG TABLET (FP) PO SCH (09:03)
[2016-05-23] MEDS: ISOSORBIDE MONONITRATE 30 MG TAB.SR.24H (FP) PO SCH (09:03)
[2016-05-23 09:15] VITALS: TEMP 98
[2016-05-23] MEDS ORDERED: PT OWN MED DRAWER 7, Y5N ONE (09:29)
--- NOTE | 2016-05-23 09:40 | PN ---
Teaching Attending Note Name of Resident: Lavell Castro ATTENDING PHYSICIAN STATEMENT I saw and evaluated the patient. I reviewed the resident's note and discussed the case with the resident. I agree with the resident's findings and plan as documented. Patient is comfortable with no acute distress, wants to go home. Vital Signs Temperature 98 F 05/23/16 09:15 Pulse Rate 98 H 05/23/16 09:15 Respiratory Rate 18 05/23/16 09:15 Blood Pressure 165/100 05/23/16 09:15 O2 Sat by Pulse Oximetry (%) 96 05/22/16 21:00 CBCD WBC 10.7 K/mm3 (4.0-10.0) H 05/23/16 06:07 RBC 4.27 M/mm3 (4.00-5.60) 05/23/16 06:07 Hgb 12.7 GM/dL (11.7-16.9) D 05/23/16 06:07 Hct 39.3 % (35.4-49) 05/23/16 06:07 MCV 92.0 fl (80-96) 05/23/16 06:07 MCHC 32.2 g/dl (32.0-35.9) 05/23/16 06:07 RDW 14.4 % (11.9-15.9) 05/23/16 06:07 Plt Count 463 K/MM3 (134-434) H 05/23/16 06:07 MPV 7.5 fl (7.5-11.1) 05/23/16 06:07 CMP Sodium 137 mmol/L (136-145) 05/23/16 06:07 Potassium 4.1 mmol/L (3.5-5.1) 05/23/16 06:07 Chloride 99 mmol/L (98-107) 05/23/16 06:07 Carbon Dioxide 28 mmol/L (21-32) 05/23/16 06:07 Anion Gap 10 (8-16) 05/23/16 06:07 BUN 14 mg/dL (7-18) 05/23/16 06:07 Creatinine 1.5 mg/dL (0.7-1.3) H 05/23/16 06:07 Creat Clearance w eGFR 48.59 (>60) 05/23/16 06:07 Random Glucose 159 mg/dL (74-106) H D 05/23/16 06:07 Calcium 9.4 mg/dL (8.5-10.1) 05/23/16 06:07 Total Bilirubin 0.7 mg/dL (0.2-1.0) D 05/23/16 06:07 AST 15 U/L (15-37) D 05/23/16 06:07 ALT 40 U/L (12-78) 05/23/16 06:07 Alkaline Phosphatase 156 U/L (45-117) H 05/23/16 06:07 Total Protein 7.5 g/dl (6.4-8.2) 05/23/16 06:07 Albumin 3.3 g/dl (3.4-5.0) L 05/23/16 06:07 CARDIAC ENZYMES Creatine Kinase 103 IU/L (39-308) 05/22/16 05:10 Troponin I 0.02 ng/ml (0.00-0.05) D 05/22/16 05:10 Current Medications Generic Name Dose Route Start Last Admin Trade Name Freq PRN Reason Stop Dose Admin Albuterol Sulfate 2 puff 05/21/16 11:02 Ventolin Hfa Inhaler - IH Q4H PRN WHEEZING Aspirin 81 mg 05/22/16 10:00 05/23/16 09:03 Ecotrin - PO 81 mg DAILY PUSHPA Administration Atorvastatin Calcium 40 mg 05/21/16 22:00 05/22/16 21:53 Lipitor - PO 40 mg HS PUSHPA Administration Furosemide 40 mg 05/21/16 14:00 05/23/16 06:11 Lasix - PO 40 mg BID@0600,1400 PUSHPA Administration Heparin Sodium (Porcine) 5,000 unit 05/21/16 18:00 05/23/16 09:03 Heparin - SQ 5,000 unit Q8H-IV PUSHPA Administration Hydralazine HCl 100 mg 05/21/16 14:00 05/23/16 06:04 Apresoline - PO 100 mg TID PUSHPA Administration Azithromycin 250 mg/ Dextrose 250 mls @ 250 mls/hr 05/22/16 10:00 05/22/16 10: 30 IVPB 05/25/16 10:59 250 mls/hr DAILY PUSHPA Administration Ceftriaxone Sodium 50 mls @ 100 mls/hr 05/22/16 10:00 05/22/16 09:34 Rocephin 1gm Ivpb (Pre-Docked) IVPB 100 mls/hr DAILY PUSHPA Administration Insulin Aspart 0 vial 05/21/16 16:30 05/23/16 06:05 Novolog Vial Sliding Scale - SQ 2 units ACHS PUSHPA Administration Protocol Isosorbide Mononitrate 30 mg 05/22/16 10:00 05/23/16 09:03 Imdur - PO 30 mg DAILY PUSHPA Administration Nicotine 14 mg 05/22/16 10:00 05/23/16 09:03 Nicoderm Patch - TD 14 mg DAILY PUSHPA Administration Nifedipine 60 mg 05/23/16 10:00 05/23/16 09:03 Procardia Xl - PO 60 mg DAILY PUSHPA Administration Spironolactone 50 mg 05/22/16 10:00 05/23/16 09:03 Aldactone - PO 50 mg DAILY PUSHPA Administration Valsartan 320 mg 05/22/16 10:00 05/23/16 09:03 Diovan - PO 320 mg DAILY PUSHPA Administration Home Medications Medication Instructions Recorded Glipizide Xl [Glucotrol Xl -] 5 mg PO DAILY@0700 #60 tab.er.24 02/22/16 Albuterol Sulfate Inhaler - 2 inh PO Q4H #1 inh 05/23/16 [Ventolin HFA Inhaler -] Aspirin Coated [Ecotrin -] 81 mg PO DAILY #30 tab 05/23/16 Atorvastatin Ca [Lipitor] 40 mg PO HS #30 tablet 05/23/16 Carvedilol 12.5 mg PO BID #60 tablet 05/23/16 Cefuroxime Axetil [Ceftin -] 500 mg PO Q12H #10 tablet 05/23/16 Furosemide [Lasix -] 40 mg PO DAILY #30 tablet 05/23/16 Hydralazine HCl [Apresoline -] 100 mg PO TID #180 tablet 05/23/16 Isosorbide Mononitrate [Imdur -] 30 mg PO DAILY #30 tab 05/23/16 Nifedipine ER [Procardia XL -] 60 mg PO DAILY #30 tab 05/23/16 Spironolactone [Aldactone] 50 mg PO DAILY #30 tablet 05/23/16 Valsartan [Diovan] 320 mg PO DAILY #60 tablet 05/23/16 CXR: CM, Left basilar infiltrate ASSESSMENT AND PLAN: This is a 56 year old male with a past medical history of MIx3 (no cardiac stents), HTN, CKD, HLD, AAA 3.6 cm, cardiomegaly who presented to the ED today with a one day history of CP and SOB and cough beginning last evening. # Acute left basilar Infiltrate ; Pneumonia . will discharge the patient on Ceftin 500mg po bid for 5 more days received Zitromax in the hospital. # Acute chest pain most likely due to cocaine use with hx of CAD, AAA bypass continue ASA, LAsix continue also will continue oreg 12.5mg po bid, discussed with , decreased the dose from 25mg to 12.5mg since Procardia Xl was increased to 60mg. # Hypertensive Urgency on Diovan , Procardia xl 60mg added, Hydralazine continue ; BP was on high side since patient was just getting his meds to take. # Cocaine abuse , patient was adviced to stop doing cocaine even occasionally as per will dicharge the patient
--- NOTE | 2016-05-23 09:42 | DS ---
Physical Exam: SUBJECTIVE: Patient seen and examined at bedside feels well wants to go home OBJECTIVE: Vital Signs Period Temp Pulse Resp BP Sys/Caal Pulse Ox Last 24 Hr 98 F-978.2 F 86-100 18-20 146-171/97-110 96 PHYSICAL EXAM GENERAL: The patient is awake, alert, and fully oriented, in no acute distress. ENT: moist mucous membranes. NECK: Trachea midline, full range of motion, supple. LUNGS: Breath sounds equal, clear to auscultation bilaterally HEART: Regular rate and rhythm, S1, S2 without murmur. No JVD no hepatojugular reflux ABDOMEN: Soft, nontender, nondistended, normoactive bowel sounds, no guarding, no rebound EXTREMITIES: Trace edema bilateral lower extremities-improved NEUROLOGICAL: Cranial nerves II through XII grossly intact. Normal speech PSYCH: Normal mood, normal affect. LABS Laboratory Results - last 24 hr 05/22/16 05/22/16 05/22/16 05:10 05:10 05:35 WBC RBC Hgb Hct MCV MCHC RDW Plt Count MPV Sodium Potassium Chloride Carbon Dioxide Anion Gap BUN Creatinine Creat Clearance w eGFR POC Glucometer Random Glucose Hemoglobin A1c % 6.7 H Calcium Magnesium 2.3 Cancelled Total Bilirubin AST ALT Alkaline Phosphatase Creatine Kinase 103 Troponin I 0.02 D Total Protein Albumin 05/22/16 05/22/16 05/22/16 11:52 15:30 21:56 WBC RBC Hgb Hct MCV MCHC RDW Plt Count MPV Sodium Potassium Chloride Carbon Dioxide Anion Gap BUN Creatinine Creat Clearance w eGFR POC Glucometer 255 148 251 Random Glucose Hemoglobin A1c % Calcium Magnesium Total Bilirubin AST ALT Alkaline Phosphatase Creatine Kinase Troponin I Total Protein Albumin 05/23/16 05/23/16 05/23/16 05:58 06:07 06:07 WBC 10.7 H RBC 4.27 Hgb 12.7 D Hct 39.3 MCV 92.0 MCHC 32.2 RDW 14.4 Plt Count 463 H MPV 7.5 Sodium 137 Potassium 4.1 Chloride 99 Carbon Dioxide 28 Anion Gap 10 BUN 14 Creatinine 1.5 H Creat Clearance w eGFR 48.59 POC Glucometer 165 Random Glucose 159 H D Hemoglobin A1c % Calcium 9.4 Magnesium Total Bilirubin 0.7 D AST 15 D ALT 40 Alkaline Phosphatase 156 H Creatine Kinase Troponin I Total Protein 7.5 Albumin 3.3 L HOSPITAL COURSE: Date of Admission:05/21/16 Date of Discharge: 05/23/16 56M with multiple medical problems presented to the hospital with chest pain and shortness of breath. Also found to be in hypertensive urgency. Met SIRS criteria with WBC count of 14 and tachycardia on presentation found to have possible PNA on CXR and treated for community acquired pneumonia. ACS ruled out as troponins negative x3. Found to have positive Utox for cocaine. patient admitted to mixing it with a cigarette and smoking it. COunselled extensively on drug and smoking cessation. Patient seen by cardiology and blood pressure was managed with medication adjusted. patient given follow up with cardiology. Asymptomatic currently. Stable for discharge. Minutes to complete discharge: 50 Discharge Summary Reason For Visit: HYPERTENSIVE,CHEST PAIN,PNEUMONIA Current Active Problems Abdominal pain (Acute) Acute on chronic diastolic (congestive) heart failure (Acute) CAP (community acquired pneumonia) (Acute) CHF (congestive heart failure) (Acute) Chest pain (Acute) Chest pain at rest (Acute) Cocaine abuse (Acute) Cocaine dependence (Acute) Cocaine dependence in early, early partial, sustained full, or sustained partial remission (Acute 09/05/13) DVT prophylaxis (Acute) Hypertensive emergency (Acute) Hypertensive urgency (Acute) Orthopnea (Acute) Pneumonia (Acute) Pulmonary edema (Acute) Reactive airway disease (Acute) Shortness of breath (Acute) Abnormal EKG (Chronic) CKD (chronic kidney disease) stage 3, GFR 30-59 ml/min (Chronic) Diabetes (Chronic) HTN (hypertension) (Chronic 09/05/13) History of myocardial infarction (Chronic) Hyperglycemia due to type 2 diabetes mellitus (Chronic) Hyperlipidemia (Chronic 09/05/13) Nicotine dependence (Chronic 09/05/13) Uncontrolled type 2 diabetes mellitus (Chronic) Condition: Guarded - Instructions Diet, Activity, Other Instructions: eat a low sodium low sugar low carbohydrate and low fat diet if you experience symptoms again go to the nearest emergency room continue your medications as prescribed you must take your medications follow up with the heart doctos call Dr. Knight or Dr. Orquidea ambriz and make an appointment for 1-2 weeks from now do not use any more drugs especially cocaine feel better and good luck follow up with Dr. Esquivel in 1-2 weeks you have a one month supple for all medications Referrals: Lenny Hernandez MD [Primary Care Provider] - 2 Weeks Mingo Knight MD [Staff Physician] - 2 Weeks (please call for appointment with either Dr. Knight or Dr. Adhikari ) Disposition: HOME - Home Medications Comprehensive Discharge Medication List: Ambulatory Orders Glipizide Xl [Glucotrol Xl -] 5 mg PO DAILY@0700 #60 tab.er.24 02/22/16 Albuterol Sulfate Inhaler - [Ventolin HFA Inhaler -] 2 inh PO Q4H #1 inh Aspirin Coated [Ecotrin -] 81 mg PO DAILY #30 tab 05/23/16 Atorvastatin Ca [Lipitor] 40 mg PO HS #30 tablet 05/23/16 Carvedilol 12.5 mg PO BID #60 tablet 05/23/16 Cefuroxime Axetil [Ceftin -] 500 mg PO Q12H #10 tablet 05/23/16 Furosemide [Lasix -] 40 mg PO DAILY #30 tablet 05/23/16 Hydralazine HCl [Apresoline -] 100 mg PO TID #180 tablet 05/23/16 Isosorbide Mononitrate [Imdur -] 30 mg PO DAILY #30 tab 05/23/16 Nifedipine ER [Procardia XL -] 60 mg PO DAILY #30 tab 05/23/16 Spironolactone [Aldactone] 50 mg PO DAILY #30 tablet 05/23/16 Valsartan [Diovan] 320 mg PO DAILY #60 tablet 05/23/16 This patient is new to me today: No Emergency Visit: Yes ED Registration Date: 05/21/16 Care time: The patient presented to the Emergency Department on the above date and was hospitalized for further evaluation of their emergent condition. Critical Care patient: No - Discharge Referral Referred to [facility] Yes Physician Referral: Lenny Esquivel MD ([facility]) (this is his PMD )
--- NOTE | 2016-05-23 09:42 | PN ---
Progress Note, Physician Chief Complaint: feels well wants to go home has important housing meeting TELE: NSr, NSVT Echo : nl EF - Current Medication List Current Medications: Active Medications Albuterol Sulfate (Ventolin Hfa Inhaler -) 2 puff IH Q4H PRN PRN Reason: WHEEZING Aspirin (Ecotrin -) 81 mg PO DAILY [facility] Last Admin: 05/23/16 09:03 Dose: 81 mg Atorvastatin Calcium (Lipitor -) 40 mg PO HS [facility] Last Admin: 05/22/16 21:53 Dose: 40 mg Furosemide (Lasix -) 40 mg PO BID@0600,1400 [facility] Last Admin: 05/23/16 06:11 Dose: 40 mg Heparin Sodium (Porcine) (Heparin -) 5,000 unit SQ Q8H-IV [facility] Last Admin: 05/23/16 09:03 Dose: 5,000 unit Hydralazine HCl (Apresoline -) 100 mg PO TID [facility] Last Admin: 05/23/16 06:04 Dose: 100 mg Azithromycin 250 mg/ Dextrose 250 mls @ 250 mls/hr IVPB DAILY [facility] Stop: 05/25/16 10:59 Last Admin: 05/22/16 10:30 Dose: 250 mls/hr Ceftriaxone Sodium (Rocephin 1gm Ivpb (Pre-Docked)) 50 mls @ 100 mls/hr IVPB DAILY [facility] Last Admin: 05/22/16 09:34 Dose: 100 mls/hr Insulin Aspart (Novolog Vial Sliding Scale -) 0 vial SQ ACHS [facility] PRN Reason: Protocol Last Admin: 05/23/16 06:05 Dose: 2 units Isosorbide Mononitrate (Imdur -) 30 mg PO DAILY [facility] Last Admin: 05/23/16 09:03 Dose: 30 mg Nicotine (Nicoderm Patch -) 14 mg TD DAILY [facility] Last Admin: 05/23/16 09:03 Dose: 14 mg Nifedipine (Procardia Xl -) 60 mg PO DAILY [facility] Last Admin: 05/23/16 09:03 Dose: 60 mg Spironolactone (Aldactone -) 50 mg PO DAILY [facility] Last Admin: 05/23/16 09:03 Dose: 50 mg Valsartan (Diovan -) 320 mg PO DAILY [facility] Last Admin: 05/23/16 09:03 Dose: 320 mg - Objective Vital Signs: Vital Signs Temperature 98 F 05/23/16 09:15 Pulse Rate 98 H 05/23/16 09:15 Respiratory Rate 18 05/23/16 09:15 Blood Pressure 165/100 05/23/16 09:15 O2 Sat by Pulse Oximetry (%) 96 05/22/16 21:00 Constitutional: Yes: No Distress Cardiovascular: Yes: Regular Rate and Rhythm Respiratory: Yes: CTA Bilaterally Gastrointestinal: Yes: Soft Edema: No Neurological: Yes: Alert, Oriented Labs: CBC, BMP 05/23/16 06:07 05/23/16 06:07 INR, PTT INR 1.18 (0.82-1.09) H 05/21/16 05:17 Laboratory Tests 05/21/16 05/21/16 05/22/16 05:17 12:00 05:10 WBC Hct Plt Count Potassium Creatinine Troponin I 0.05 D 0.04 0.02 D 05/23/16 05/23/16 06:07 06:07 WBC 10.7 H Hct 39.3 Plt Count 463 H Potassium 4.1 Creatinine 1.5 H Troponin I Assessment/Plan Assessment/Plan Chronic uncontrolled HTN CAD, non-obstructive NSVT Chronic Diastolic CHF secondary to HTN heart dz DM CKD Dilated aortic root, mild PNA Cocaine abuse REC: Titrated Procardia EF nl and cardiac enzymes Nl Ok to d/c home with close outpatient f/u. Strongly counselled on importance of cessation of his occasional recreational cocain use. Explained possible lethal side effects and interaction with meds. Reasonable to resume Coreg (mixed beta and some alpha effect) as he was on it before. Outpatient stress test recommended and d/w patient and he assured me he would f/ u in office in 1-2 weeks.
[2016-05-23] MEDS ORDERED: NIFEdipine E.R 60 MG TABLET (UD) PO SCH (10:00)
[2016-05-23 11:14] VITALS: BP 160/90; PULSE 90
[2016-05-23] MEDS: AZITHROMYCIN IVPB 250 MG in DEXTROSE 5%-WATER - 250 ML IVPB SCH (11:22)
[2016-05-23] MEDS: CEFTRIAXONE 50 ML IVPB SCH (11:22)
== END 2016-05-23 11:27 | disposition home or self-care (01) | DRG 720 ==
LOC: JER 05:55 → JERBED 09:22 → J4W 11:56
PROVIDERS: ADMIT Internal Medicine; ATTEND Internal Medicine
DX: A41.9 Sepsis, unspecified organism (principal); J18.9 Pneumonia, unspecified organism; J90 Pleural effusion, not elsewhere classified; E78.5 Hyperlipidemia, unspecified; I25.10 Atherosclerotic heart disease of native coronary artery without angina pectoris; I25.2 Old myocardial infarction; I50.32 Chronic diastolic (congestive) heart failure; I12.9 Hypertensive chronic kidney disease with stage 1 through stage 4 chronic kidney disease, or unspecified chronic kidney disease; E11.22 Type 2 diabetes mellitus with diabetic chronic kidney disease; N18.9 Chronic kidney disease, unspecified; F14.10 Cocaine abuse, uncomplicated; I47.1 Supraventricular tachycardia; I16.0 Hypertensive urgency
CPT/HCPCS: 36415; 71020-TC; 80053; 80061; 80307; 81003; 81015; 82550; 82553; 83036; 83605; 83721; 83735; 83880; 84484; 85025; 85027; 85610; 86850; 86900; 86901; 87040; 93005; 93010; 93306-TC; 99284-25; J1644

== ENCOUNTER 2016-09-09 09:00 | Inpatient (IN) | payer OTHER ==
[2016-09-09 09:17] VITALS: BMI 34.2
--- NOTE | 2016-09-09 09:33 | PDOC ---
Attending Attestation - Resident Resident Name: Najma Fang - ED Attending Attestation I have performed the following: I have examined & evaluated the patient, The case was reviewed & discussed with the resident, I agree w/resident's findings & plan, Exceptions are as noted - HPI HPI: 09/09/16 10:37 56y M hx of htn, hl, cad s/p multiple MIs (no stetnts, last cath ~4 yrs ago and was negative), cocaine use (last use last week) presents with chest pain and sob. Pt endorses a chest sharp tightness/sob since awakening this morning. No associated diarphoesis, n/v, cough, hemoptysis, leg swelling. on exam pt in no distress, his vitals noted to be mild tachycardic, otherwise well apeparing. vitals noted for severe hypertension - [t states he hasnt had any of his meds in ~1 week since moving out of his house and being unabl to find his meds. ekg noted for sinus tach but no changes from prior ekg bp noted severely htn - pt given labetalol 20mg for control as pt unclera which meds he is on pts PMD is dr. Matthew but states he has not seen him since last year hypertensive emergency chest pain - will r/o acs, considered PE/dissection, however do not feel his clnical symptoms and presentation c/w with dissection 09/09/16 11:25 trop neg x 1 pt will be placed in observation in cardiac telemetry for management of hypertensive emergency and ACS risk stratefication CRITICAL CARE DOCUMENTATION: I spent ~35 minutes of Critical Care time, excluding separately billable procedures, involving high complexity decision making to assess, manipulate and support vital system function(s) to treat single or multiple vital organ system failure and/or to prevent further life threatening deterioration of the patient' s condition. - Physicial Exam PE: 09/10/16 08:03 see above - Medical Decision Making 09/10/16 08:03 see above Heart Score/ECG Review - ECG Impressions Comment:: 09/09/16 10:31 Twelve-lead EKG was performed and reviewed by me. There is normal sinus rhythm with a rate of 110 q waves in III Nonspecific T wave change No significant change when compare with prior ekg in 04/2016
[2016-09-09 09:58] LABS: BASOPHIL 0.5 % (0-2.0); EOSINOPHIL 0.6 % (0-4.5); MCHC 32.9 g/dl (32.0-35.9); MEAN CELL VOLUME 94.2 fl (80-96); MEAN PLT VOLUME 7.9 fl (7.5-11.1); NEUTROPHILS 79.6 % (42.8-82.8); PLATELET COUNT 278 K/MM3 (134-434); RDW 14.4 % (11.9-15.9); WHITE BLOOD COUNT 11.5 K/mm3 (4.0-10.0)
[2016-09-09] MEDS ORDERED: morphine CARPU-JECT 4 MG/1 ML DISP.SYRIN IVPUSH ONE (10:00)
[2016-09-09] MEDS ORDERED: LABETALOL HCL 5 MG/1 ML (100MG/20 ML VIAL) IVPUSH ONE (10:00)
[2016-09-09] MEDS ORDERED: LABETALOL HCL 5 MG/1 ML (200MG/40ML VIAL) IVPB ONE (10:06)
[2016-09-09] MEDS ORDERED: morphine CARPU-JECT 4 MG/1 ML DISP.SYRIN ONE (10:06)
[2016-09-09] MEDS ORDERED: ALBUTEROL SO4 2.5/IPRATROPIUM 0.5 INH SOL 3 ML VIAL.NEB. NEB ONE (10:15)
[2016-09-09 10:19] LABS: INR 1.07 (0.82-1.09); PROTHROMBIN TIME (PATIENT) 11.8 SEC (9.98-11.88)
[2016-09-09 10:23] LABS: ALBUMIN 3.3 g/dl (3.4-5.0); ANION GAP 10 (8-16); BILIRUBIN,TOTAL 0.7 mg/dL (0.2-1.0); CALCIUM 8.9 mg/dL (8.5-10.1); CO2 21 mmol/L (21-32); CREATININE 1.4 mg/dL (0.7-1.3); GLUCOSE,RANDOM 162 mg/dL (74-106); SGOT/AST 27 U/L (15-37); SGPT/ALT 37 U/L (12-78); TOT PROT 7.3 g/dl (6.4-8.2)
[2016-09-09 10:26] LABS: ALK PHOS 139 U/L (45-117); TROPONIN I 0.03 ng/ml (0.00-0.05)
--- NOTE | 2016-09-09 10:43 | PDOC ---
History of Present Illness <MarybelCordell - Last Filed: 09/09/16 12:42> <Najma Fang - Last Filed: 09/09/16 14:33> - General Chief Complaint: Chest Pain Stated Complaint: CHEST PAIN, SOB ` Time Seen by Provider: 09/09/16 09:19 - History of Present Illness Initial Comments: 09/09/16 10:36 This is a 56 yo male with h/o HTN, ACS (prior PA x3), HLD, NIDDM, asthma, cocaine use (most recently last week), and medication non-adherence (especially in the past week) who presents c/o chest pain. The onset was today at 7 am while he was getting his little nephew dressed to go [facility]. It is 8/10, constant, worsens when he walks, feels as if someone is sticking a pin in his heart on the left side of his chest, and it radiates to his left mid-back and left upper abdomen. He has not taken any medications for the pain or other symptoms this morning. He denies any tearing or ripping sensation, and denies radiation to the jaw or shoulder/arm. He states that this pain is the same as prior episodes of chest pain for which he has been admitted here at [facility] for hypertensive emergency. He denies that this pain is similar to that from his prior heart attacks. The patient notes SOB, wheezing, cough productive of yellow sputum, mild headache and mild sweats today, as well as recent mild swelling in the extremities and subjective weight gain over the past few days. He denies fever, chills, nausea, vomiting, diarrhea, constipation, numbness, tingling, focal weakness, or other symptoms. He also recalls that over the past week, he has not been taking any of his normal medications because he moved out of his mother's residence, is now living alone in an apartment, and does not know where his medications are. (Najma Fang) Past History <Cordell No - Last Filed: 09/09/16 12:42> - Past Medical History Anemia: No Asthma: No Cancer: No Cardiac Disorders: Yes (CARDIOMEGALY, heart attack-1995, no stents) CVA: No COPD: No CHF: No Dementia: No Diabetes: Yes GI Disorders: No Disorders: No HTN: Yes Hypercholesterolemia: Yes Kidney Stones: No Liver Disease: No Suicide Attempt (Hx): No Seizures: No Thyroid Disease: No - Surgical History Abdominal Surgery: No Appendectomy: No Cardiac Surgery: No Cholecystectomy: No Lung Surgery: No Neurologic Surgery: No Orthopedic Surgery: Yes (old orthopedic injury fractured left ankle x2) - Reproductive History Testicular Surgery: No - Immunization History Immunization Up to Date: Yes - Psycho/Social/Smoking Cessation Hx Anxiety: No Suicidal Ideation: No Smoking Status: No Smoking History: Former smoker Have you smoked in the past 12 months: Yes Number of Cigarettes Smoked Daily: 4 Information on smoking cessation initiated: No 'Breaking Loose' booklet given: 02/18/16 Hx Alcohol Use: No Drug/Substance Use Hx: No Substance Use Type: Cocaine Hx Substance Use Treatment: No <Najma Fang - Last Filed: 09/09/16 14:33> - Past Medical History Allergies/Adverse Reactions: Allergies Allergy/AdvReac Type Severity Reaction Status Date / Time IRMA Inhibitors Allergy Verified 09/09/16 09:17 Home Medications: Ambulatory Orders Glipizide Xl [Glucotrol Xl -] 5 mg PO DAILY@0700 #60 tab.er.24 02/22/16 Albuterol Sulfate Inhaler - [Ventolin HFA Inhaler -] 2 inh PO Q4H #1 inh Aspirin Coated [Ecotrin -] 81 mg PO DAILY #30 tab 05/23/16 Atorvastatin Ca [Lipitor] 40 mg PO HS #30 tablet 05/23/16 Carvedilol 12.5 mg PO BID #60 tablet 05/23/16 Furosemide [Lasix -] 40 mg PO DAILY #30 tablet 05/23/16 Hydralazine HCl [Apresoline -] 100 mg PO TID #180 tablet 05/23/16 Isosorbide Mononitrate [Imdur -] 30 mg PO DAILY #30 tab 05/23/16 Nifedipine ER [Procardia XL -] 60 mg PO DAILY #30 tab 05/23/16 Spironolactone [Aldactone] 50 mg PO DAILY #30 tablet 05/23/16 Valsartan [Diovan] 320 mg PO DAILY #60 tablet 05/23/16 Cardiac Specific PMH - Complaint Specific PMHX Pacemaker: No <Najma Fang - Last Filed: 09/09/16 14:33> Review of Systems - Review of Systems Able to Perform ROS?: Yes Is the patient limited Maori proficient: Yes Constitutional: Yes: Other (mild sweats). No: Chills, Fever, Unexplained wgt Loss HEENTM: No: Nose Congestion, Throat Pain Respiratory: Yes: Cough (past day only), Shortness of Breath, Wheezing, Productive cough (yellow-whie phlegm) Cardiac (ROS): Yes: Chest Pain, Edema. No: Palpitations ABD/GI: No: Constipated, Diarrhea, Nausea, Vomiting : No: Burning, Dysuria Musculoskeletal: No: Back Pain, Neck Pain Integumentary: No: Bruising, Rash Neurological: Yes: Headache. No: Numbness, Tingling, Weakness, Dizziness Endocrine: Yes: Excessive Sweating (this morning, mild), Unexplained Weight Gain (subjective over the past few days). No: Unexplained Weight Loss <FangNajma - Last Filed: 09/09/16 14:33> *Physical Exam - Physical Exam General Appearance: Yes: Nourished, Mild Distress, Obese, Other (conversive and appropriate male) HEENT: positive: EOMI, Normal Voice, Hearing Grossly Normal. negative: Scleral Icterus (R), Scleral Icterus (L), Nasal Congestion Neck: positive: Trachea midline, Supple. negative: Tender, Rigid Respiratory/Chest: positive: Lungs Clear, Rapid RR, Wheezing (end expiratory, mild). negative: Respiratory Distress, Crackles, Rhonchi, Stridor Cardiovascular: positive: Regular Rhythm, Regular Rate, Tachycardia, Other ( radial pulses 2+ symmetric bilaterally) Gastrointestinal/Abdominal: positive: Normal Bowel Sounds, Soft. negative: Tender, Organomegaly, Pulsatile Mass, Guarding Musculoskeletal: positive: Normal Inspection. negative: CVA Tenderness, Decreased Range of Motion, Vertebral Tenderness Extremity: positive: Normal Capillary Refill, Normal Inspection, Normal Range of Motion. negative: Tender, Cyanosis Integumentary: positive: Normal Color, Dry, Warm. negative: Erythema, Rash, Bruising Neurologic: positive: welfare specialist II-XII NML intact, Fully Oriented, Alert, Normal Mood/ Affect, Normal Response, Motor Strength 5/5. negative: Numbness, Sensory Deficit, Disoriented <Fang,Najma - Last Filed: 09/09/16 14:33> - Vital Signs Last Vital Signs Temp Pulse Resp BP Pulse Ox 98.9 F 92 H 18 176/140 100 09/09/16 09:13 09/09/16 12:07 09/09/16 12:07 09/09/16 12:07 09/09/16 12:07 ED Treatment Course - LABORATORY CBC & Chemistry Diagram: 09/09/16 09:46 09/09/16 09:46 <Cordell No - Last Filed: 09/09/16 12:42> - LABORATORY CBC & Chemistry Diagram: 09/09/16 09:46 09/09/16 09:46 <Najma Fang - Last Filed: 09/09/16 14:33> - ADDITIONAL ORDERS Additional order review: Laboratory Results 09/09/16 09/09/16 09/09/16 09:54 09:46 09:46 INR 1.07 Sodium 138 Potassium 3.8 Chloride 107 Carbon Dioxide 21 D Anion Gap 10 BUN 16 Creatinine 1.4 H Creat Clearance w eGFR 52.62 Random Glucose 162 H Calcium 8.9 Total Bilirubin 0.7 AST 27 D ALT 37 Alkaline Phosphatase 139 H Creatine Kinase 96 Troponin I 0.03 D B-Natriuretic Peptide 2154.04 H Total Protein 7.3 Albumin 3.3 L Urine Color Yellow Urine Appearance Clear Urine pH 5.0 Urine Protein Negative Urine Glucose (UA) Negative Urine Ketones Trace H Urine Blood 1+ H Urine Nitrite Negative Urine Bilirubin Negative Urine Urobilinogen Negative Ur Leukocyte Esterase Negative Urine RBC <1 Urine WBC 1 Hyaline Casts 1 Urine Mucus Rare 09/09/16 09:46 RBC 3.77 L MCV 94.2 MCHC 32.9 RDW 14.4 MPV 7.9 Neutrophils % 79.6 Lymphocytes % 11.0 D Monocytes % 8.3 Eosinophils % 0.6 Basophils % 0.5 - Medications Given in the ED: ED Medications Discontinued Medications Generic Name Dose Route Start Last Admin Trade Name Freq PRN Reason Stop Dose Admin Aspirin 162 mg 09/09/16 13:04 09/09/16 13:28 Asa - PO 09/09/16 13:05 162 mg ONCE ONE Administration Atorvastatin Calcium 80 mg 09/09/16 13:30 09/09/16 14:16 Lipitor - PO 09/09/16 13:31 80 mg ONCE ONE Administration Furosemide 40 mg 09/09/16 13:30 09/09/16 13:29 Lasix Injection - IVPUSH 09/09/16 13:31 40 mg ONCE ONE Administration Labetalol HCl 20 mg 09/09/16 10:00 09/09/16 10:14 Normodyne Injection - IVPUSH 09/09/16 10:01 20 mg ONCE ONE Administration Morphine Sulfate 4 mg 09/09/16 10:00 09/09/16 10:13 Morphine Injection - IVPUSH 09/09/16 10:01 4 mg ONCE ONE Administration Medical Decision Making <Cordell No - Last Filed: 09/09/16 12:42> <Najma Fang - Last Filed: 09/09/16 14:33> - Medical Decision Making 56 yo male with c/o ACS, HTN with hypertensive emergency, HLD, cocaine use who p /w chest pain. Has not taken antihypertensives or other meds x1 week. Reports headache but in ED there are no neuro focal deficits, pulse asymmetry, cardiac exam findings. Primary concern is for hypertensive emergency given that the patient's initial BP is 227/149 and Pt has CP. Also considered on ddx are aortic dissection, PE, ACS, pneumothorax, pneumonia, chest wall pain. Unlikely to be AD d/t lack of neurological findings, tearing/ripping sensation, or pulse strength asymmetry (2+ BUE radial). No mediastinal widening on CXR, no e/o pneumothorax or obvious e/o pneumonia. Compression of the chest wall does not reproduce the CC. The patient is in the Well's score low-risk category for PE and does not have signs/symptoms or hx risky for DVT. Tachycardia resolves with improved symptom control. Troponin is negative, EKG shows no new ST-T changes or other ischemic changes. BNP is >2000. The patient is admitted to telemetry by Dr. Quevedo. (Najma Fang) *DC/Admit/Observation/Transfer - Discharge Dispostion Admit: Yes <Cordell No - Last Filed: 09/09/16 12:42> - Discharge Dispostion Admit: Yes <Najma Fang - Last Filed: 09/09/16 14:33> Diagnosis at time of Disposition: History of myocardial infarction, Hypertensive emergency Chest pain Qualifiers: Chest pain type: unspecified Qualified Code(s): R07.9 - Chest pain, unspecified - Discharge Dispostion Condition at time of disposition: Guarded - Referrals - Attestations Physician Attestion: 09/09/16 14:31 I, Dr. Najma Fang, attest that this document has been prepared under my direction and personally reviewed by me in its entirety. I further attest, that it accurately reflects all work, treatment, procedures and medical decision -making performed by me. (Najma Fang)
[2016-09-09 11:04] LABS: URINE APPEARANCE CLEAR; URINE BILIRUBIN NEGATIVE (NEGATIVE); URINE COLOR YELLOW; URINE GLUCOSE (UA) NEGATIVE (NEGATIVE); URINE KETONE TRACE (NEGATIVE); URINE LEUK ESTERASE NEGATIVE (NEGATIVE); URINE NITRITE NEGATIVE (NEGATIVE); URINE PROTEIN NEGATIVE (NEGATIVE); URINE UROBILINOGEN NEGATIVE mg/dL (0.2-1.0)
[2016-09-09 11:10] LABS: URINE BLOOD 1+ (NEGATIVE)
[2016-09-09 11:35] LABS: URINE HYALINE CAST 1 /lpf; URINE MUCUS RARE; URINE RBC <1 /hpf (0-3); URINE WBC 1 /hpf (3-5)
--- NOTE | 2016-09-09 12:57 | HP ---
CHIEF COMPLAINT: " I have chest pain and cough" PCP: Dr Haile HISTORY OF PRESENT ILLNESS: This is a 56 yo M with PMH of HTN, admitted for HTN urgency and PNA 05/09, ACS ( CA x3), HLD, NIDDM, asthma, cocaine use (most recently smoked last week), daily EtOH use and medication non-adherence (especially in the past week) who presents due to chest pain since 7 am that started during activity of daily living. He describes pain as mid sternal, nonradiating, pressure like, aggravated by deep inspiration, constant, 8/10. He has pain like this at the time of his last admission mentioned above. He reports associated resting sob, severe exertional dyspnea (walks 3 steps before breaking), palpitations, dizziness and new cough productive of yellow sputum. He reports increased abd distention over past few days. He denies f/c, recent abx use or sick contacts. He denies recent travel, hospitalization, leg pain or swelling, hemoptysis. He states that he has not taken any of his meds for the past week. he denies loss of appetite, n/v, diarrhea, constipation, melena, hematochezia, dysuria, hematuria. His chest pain stooped with morphine adm. ER course was notable for: (1)labs (2)EKG : no change from prior, no acs, no new strain CXR cardiomegaly, L atrium is larger than 3 mo ago (3)nebs, morphine Recent Travel: denies PAST MEDICAL HISTORY: as above PAST SURGICAL HISTORY: denies Social History: lives at home, recently moved Smoking: daily 5 cig/day x 35 yrs Alcohol: 4 beers/day Drugs: smokes cocaine Family History: HTN, DM Allergies IRMA Inhibitors Allergy (Verified 09/09/16 09:17) HOME MEDICATIONS: Home Medications Medication Instructions Recorded Glipizide Xl [Glucotrol Xl -] 5 mg PO DAILY@0700 #60 tab.er.24 02/22/16 Albuterol Sulfate Inhaler - 2 inh PO Q4H #1 inh 05/23/16 [Ventolin HFA Inhaler -] Aspirin Coated [Ecotrin -] 81 mg PO DAILY #30 tab 05/23/16 Atorvastatin Ca [Lipitor] 40 mg PO HS #30 tablet 05/23/16 Carvedilol 12.5 mg PO BID #60 tablet 05/23/16 Furosemide [Lasix -] 40 mg PO DAILY #30 tablet 05/23/16 Hydralazine HCl [Apresoline -] 100 mg PO TID #180 tablet 05/23/16 Isosorbide Mononitrate [Imdur -] 30 mg PO DAILY #30 tab 05/23/16 Nifedipine ER [Procardia XL -] 60 mg PO DAILY #30 tab 05/23/16 Spironolactone [Aldactone] 50 mg PO DAILY #30 tablet 05/23/16 Valsartan [Diovan] 320 mg PO DAILY #60 tablet 05/23/16 REVIEW OF SYSTEMS CONSTITUTIONAL: Absent: fever, chills, diaphoresis,loss of appetite, weight change HEENT: Absent: rhinorrhea, nasal congestion, throat pain CARDIOVASCULAR: Absent: syncope, peripheral edema RESPIRATORY: Absent: hemoptysis GASTROINTESTINAL: Absent: abdominal pain, abdominal distension, nausea, vomiting, diarrhea, constipation, melena, hematochezia GENITOURINARY: Absent: dysuria MUSCULOSKELETAL: Absent: back pain, neck pain SKIN: Absent: rash, itching, pallor HEMATOLOGIC/IMMUNOLOGIC: Absent: frequent infections ENDOCRINE: Absent: unexplained weight gain, unexplained weight loss NEUROLOGIC: Absent: headache, focal weakness or paresthesias, dizziness, PSYCHIATRIC: Absent: anxiety, depression PHYSICAL EXAMINATION Vital Signs - 24 hr 09/09/16 09/09/16 09/09/16 09:13 09:54 10:18 Temperature 98.9 F Pulse Rate 111 H 110 H Pulse Rate [ 96 H Apical] Respiratory 18 22 Rate Blood Pressure 202/121 227/149 Blood Pressure 207/138 [Left Arm] O2 Sat by Pulse 96 98 Oximetry (%) 09/09/16 12:07 Temperature Pulse Rate Pulse Rate [ 92 H Apical] Respiratory 18 Rate Blood Pressure Blood Pressure 176/140 [Left Arm] O2 Sat by Pulse 100 Oximetry (%) GENERAL: Awake, alert, and fully oriented, in no acute distress. HEAD: Normal with no signs of trauma. EYES: Pupils equal, round and reactive to light, extraocular movements intact, sclera anicteric, conjunctiva clear. No lid lag Fundoscopic exam unremarkable. EARS, NOSE, THROAT: Moist mucous membranes. NECK: supple +JVD at 30 degree incline, + hepatojugular reflex LUNGS: diffuse expiratory wheezes, LLL crackles, RLL ronchi HEART: Regular rate and rhythm, normal S1 and S2 ABDOMEN: Soft, nontender, not distended, normoactive bowel sounds, no guarding, no rebound, no masses. No hepatomegaly or splenomegaly. MUSCULOSKELETAL: Normal range of motion at all joints. No bony deformities or tenderness. No CVA tenderness. UPPER EXTREMITIES: 2+ pulses, warm, well-perfused. No cyanosis. No clubbing. No peripheral edema. LOWER EXTREMITIES: 2+ pulses, warm, well-perfused. No calf tenderness. No peripheral edema. NEUROLOGICAL: Cranial nerves II-XII intact. Normal speech. Normal gait. PSYCHIATRIC: Cooperative. Good eye contact. Appropriate mood and affect. SKIN: Warm, dry, normal turgor, no rashes or lesions noted, normal capillary refill. Laboratory Results - last 24 hr 09/09/16 09/09/16 09/09/16 09:46 09:46 09:46 WBC 11.5 H RBC 3.77 L Hgb 11.7 Hct 35.5 MCV 94.2 MCH 31.0 MCHC 32.9 RDW 14.4 Plt Count 278 D MPV 7.9 Neutrophils % 79.6 Lymphocytes % 11.0 D Monocytes % 8.3 Eosinophils % 0.6 Basophils % 0.5 INR 1.07 Sodium 138 Potassium 3.8 Chloride 107 Carbon Dioxide 21 D Anion Gap 10 BUN 16 Creatinine 1.4 H Creat Clearance w eGFR 52.62 Random Glucose 162 H Calcium 8.9 Total Bilirubin 0.7 AST 27 D ALT 37 Alkaline Phosphatase 139 H Creatine Kinase 96 Troponin I 0.03 D B-Natriuretic Peptide 2154.04 H Total Protein 7.3 Albumin 3.3 L Urine Color Urine Appearance Urine pH Urine Protein Urine Glucose (UA) Urine Ketones Urine Blood Urine Nitrite Urine Bilirubin Urine Urobilinogen Ur Leukocyte Esterase Urine RBC Urine WBC Hyaline Casts Urine Mucus 09/09/16 09:54 WBC RBC Hgb Hct MCV MCH MCHC RDW Plt Count MPV Neutrophils % Lymphocytes % Monocytes % Eosinophils % Basophils % INR Sodium Potassium Chloride Carbon Dioxide Anion Gap BUN Creatinine Creat Clearance w eGFR Random Glucose Calcium Total Bilirubin AST ALT Alkaline Phosphatase Creatine Kinase Troponin I B-Natriuretic Peptide Total Protein Albumin Urine Color Yellow Urine Appearance Clear Urine pH 5.0 Urine Protein Negative Urine Glucose (UA) Negative Urine Ketones Trace H Urine Blood 1+ H Urine Nitrite Negative Urine Bilirubin Negative Urine Urobilinogen Negative Ur Leukocyte Esterase Negative Urine RBC <1 Urine WBC 1 Hyaline Casts 1 Urine Mucus Rare ASSESSMENT/PLAN: 56M with extensive cardiac history presents to the hospital with chest pain in the setting of recent cocaine use and sepsis found to have a Pneumonia. Pleuritic chest pain in setting of prior CA and chronic HFPEF -unlikely ACS (EKG negative, trop #1 negative), trend trop -possibly exacerbated HFPEF; patient exhibits LV strain pattern on EKG, has inlarged LA (new) and cardiomegaly (stable) on CXR, vesssel cephalizationon CXR (stable) and a severely hypertrophied LV with dilated LA and dilated IVC on bedside echo performed by resident; BNP >2100 above baseline of 1600. -will diurese with IV lasix, fluid restrict to 1L daily, record I and O, weights -has been medication noncompliant, will restart asa, statin, coreg, arb, imdur in addition to IV lasix -cardiologyconsult -last TTE 05/09 shows normal ef, moderately hypertrophic LV, normal LA; Repeat TTE -TFT, Lipid panel, A1c -potentially needs stress test Sepsis secondary to recurrent community acquired pneumonia in smoker: -leukocystosis 11.5 with neutropenic predominance, tachypnea, new productive cought, R basilar ronhi -cxr negative for infiltrate but PNA tends to appear later on imaging -treated 05/08 with rocephin and axithro, will initiate levaquin IV -sputum and blood sulture -esr r/o vasculitis Hypertensive urgency -s/o labetalol IV in ED -likley due to med noncompliance -resume hime meds as above, diurese RLQ pain -+ ultrasound murphys -bedside US distended gb withslightly thickened wall, no sludge or stones, normal ducts -normal t cesar -possible pain due to ischemic cholecystitis due to CHF exacerbation, trend bili -levaquin is adequate ppx coverage ETOH dependance -librium protocol -Dr Farr consult FEN: fluid restrict lytes stable Diabetic Na restricted diet ppi, hep Dispo: adm tele Problem List - Problem (1) Abdominal pain Code(s): R10.9 - UNSPECIFIED ABDOMINAL PAIN (2) Acute on chronic diastolic (congestive) heart failure Code(s): I50.33 - ACUTE ON CHRONIC DIASTOLIC (CONGESTIVE) HEART FAILURE (3) CAP (community acquired pneumonia) Code(s): J18.9 - PNEUMONIA, UNSPECIFIED ORGANISM (4) CHF (congestive heart failure) Code(s): I50.9 - HEART FAILURE, UNSPECIFIED Qualifiers: Congestive heart failure type: unspecified congestive heart failure type Congestive heart failure chronicity: unspecified congestive heart failure chronicity Qualified Code(s): I50.9 - Heart failure, unspecified (5) Chest pain Code(s): R07.9 - CHEST PAIN, UNSPECIFIED Qualifiers: Chest pain type: unspecified Qualified Code(s): R07.9 - Chest pain, unspecified (6) Cocaine abuse Code(s): F14.10 - COCAINE ABUSE, UNCOMPLICATED (7) DVT prophylaxis Code(s): PBV8591 - (8) Pulmonary edema Code(s): J81.1 - CHRONIC PULMONARY EDEMA Qualifiers: Chronicity: acute Qualified Code(s): J81.0 - Acute pulmonary edema (9) Abnormal EKG Code(s): R94.31 - ABNORMAL ELECTROCARDIOGRAM [ECG] [EKG] (10) CKD (chronic kidney disease) stage 3, GFR 30-59 ml/min Code(s): N18.3 - CHRONIC KIDNEY DISEASE, STAGE 3 (MODERATE) (11) Diabetes Code(s): E11.9 - TYPE 2 DIABETES MELLITUS WITHOUT COMPLICATIONS Qualifiers: Diabetes mellitus type: type 2 Chronic kidney disease stage: stage 2 ( mild) (12) HTN (hypertension) Code(s): I10 - ESSENTIAL (PRIMARY) HYPERTENSION Qualifiers: Hypertension type: essential hypertension Qualified Code(s): I10 - Essential (primary) hypertension (13) History of myocardial infarction Code(s): I25.2 - OLD MYOCARDIAL INFARCTION (14) Hyperlipidemia Code(s): E78.5 - HYPERLIPIDEMIA, UNSPECIFIED Qualifiers: Hyperlipidemia type: pure hypercholesterolemia (15) Nicotine dependence Code(s): F17.200 - NICOTINE DEPENDENCE, UNSPECIFIED, UNCOMPLICATED Qualifiers : Nicotine product type: cigarettes (16) Alcohol dependence with uncomplicated withdrawal Code(s): F10.230 - ALCOHOL DEPENDENCE WITH WITHDRAWAL, UNCOMPLICATED (17) Hypertensive urgency Code(s): I16.0 - HYPERTENSIVE URGENCY (18) Pneumonia Code(s): J18.9 - PNEUMONIA, UNSPECIFIED ORGANISM Qualifiers: Pneumonia type: due to unspecified organism Laterality: left Lung location: lower lobe of lung Qualified Code(s): J18.1 - Lobar pneumonia, unspecified organism (19) Shortness of breath Code(s): R06.02 - SHORTNESS OF BREATH (20) Alcohol dependence Code(s): F10.20 - ALCOHOL DEPENDENCE, UNCOMPLICATED Visit type - Emergency Visit Emergency Visit: Yes ED Registration Date: 09/09/16 Care time: The patient presented to the Emergency Department on the above date and was hospitalized for further evaluation of their emergent condition. - New Patient This patient is new to me today: Yes Date on this admission: 09/09/16 - Critical Care Critical Care patient: No
[2016-09-09] MEDS ORDERED: ASPIRIN 81 MG CHEWABLE TABLETS PO ONE (13:04)
[2016-09-09] MEDS ORDERED: ISOSORBIDE MONONITRATE 60 MG TAB.SR.24H (FP) PO ONE (13:23)
[2016-09-09] MEDS: ISOSORBIDE MONONITRATE 30 MG TAB.SR.24H (FP) PO SCH (13:28)
[2016-09-09] MEDS: CARVEDILOL 12.5 MG TABLET (FP) PO SCH ×2 (13:28→22:19)
[2016-09-09] MEDS ORDERED: FUROSEMIDE 40 MG/4 ML INJECTABLE VIAL IVPUSH ONE (13:30)
[2016-09-09] MEDS ORDERED: LEVOFLOXACIN 750 MG IVPB 150 ML IVPB ONE ×2 (13:30→13:59)
[2016-09-09] MEDS ORDERED: ATORVASTATIN CA 80 MG TABLET (FP) PO ONE (13:30)
[2016-09-09] MEDS ORDERED: PATIENT'S OWN MEDICATION (NON-FORMULARY) (Spironolactone [Aldactone] 50 MG) PO SCH (13:30)
[2016-09-09] MEDS ORDERED: chlordiazePOXIDE 5 MG CAPSULE PO PRN (13:41)
[2016-09-09] MEDS ORDERED: ATORVASTATIN CA 80 MG TABLET (FP) ONE (13:59)
[2016-09-09] MEDS ORDERED: SPIRONOLACTONE 25 MG TABLET (FP) ONE (13:59)
[2016-09-09] MEDS: SPIRONOLACTONE 25 MG TABLET (FP) PO SCH (14:16)
[2016-09-09] MEDS: ALBUTEROL SO4 6.7 GM HFA INHALER IH SCH ×2 (14:24→17:21)
--- NOTE | 2016-09-09 15:08 | HP ---
CHIEF COMPLAINT: chest pain and cough PCP: HISTORY OF PRESENT ILLNESS: This is a 56 y/o M with PMH of HTN, HTN urgency and pneumonia April, MIx3, HLD, NIDDM, asthma, cocaine use- last week, medication non-adherence, who came to the ED with chest pain since 7am. As per patient, pain is mid-sternal, 8/10 and pressure like, and is constant. It radiates to his L mid back and LUQ. Pain is worse with deep inspiration. Patient states that pain is like his past HTN emergency episodes for which he was admitted for. Pt also has cough with whitish-yellow sputum during this time and associated shortness of breath on exertion. He has also noted recent abdominal distension this past week. Denies diaphoresis, sick contacts, hemoptysis, dizziness, fever , chills, blurred vision, N/V, leg edema. ER course was notable for: (1) morphine- alleviated chest pain (2) (3) Recent Travel: none PAST MEDICAL HISTORY: HTN, ACS (MIx3), last cath 3 years ago negative, NIDDM, recent cocaine use, asthma PAST SURGICAL HISTORY: L ankle fracture- twice Social History: Smoking: does not know when he quit, but used to smoke 25 years - pack per day Alcohol: drinks 4 beers every other day, last drink yesterday Drugs: cocaine use 1 week ago Family History: non contributory Allergies IRMA Inhibitors Allergy (Verified 09/09/16 09:17) - causes lip edema HOME MEDICATIONS: Home Medications Medication Instructions Recorded Glipizide Xl [Glucotrol Xl -] 5 mg PO DAILY@0700 #60 tab.er.24 02/22/16 Albuterol Sulfate Inhaler - 2 inh PO Q4H #1 inh 05/23/16 [Ventolin HFA Inhaler -] Aspirin Coated [Ecotrin -] 81 mg PO DAILY #30 tab 05/23/16 Atorvastatin Ca [Lipitor] 40 mg PO HS #30 tablet 05/23/16 Carvedilol 12.5 mg PO BID #60 tablet 05/23/16 Furosemide [Lasix -] 40 mg PO DAILY #30 tablet 05/23/16 Hydralazine HCl [Apresoline -] 100 mg PO TID #180 tablet 05/23/16 Isosorbide Mononitrate [Imdur -] 30 mg PO DAILY #30 tab 05/23/16 Nifedipine ER [Procardia XL -] 60 mg PO DAILY #30 tab 05/23/16 Spironolactone [Aldactone] 50 mg PO DAILY #30 tablet 05/23/16 Valsartan [Diovan] 320 mg PO DAILY #60 tablet 05/23/16 REVIEW OF SYSTEMS CONSTITUTIONAL: +weight gain over past week Absent: fever, chills, diaphoresis, generalized weakness, malaise, loss of appetite, weight change HEENT: Absent: rhinorrhea, nasal congestion, throat pain, throat swelling, difficulty swallowing, mouth swelling, ear pain, eye pain, visual changes CARDIOVASCULAR: +chest pain Absent: chest pain, syncope, palpitations, irregular heart rate, lightheadedness , peripheral edema RESPIRATORY: +SOB, +CORDON Absent: cough, shortness of breath, dyspnea with exertion, orthopnea, wheezing, stridor, hemoptysis GASTROINTESTINAL: +abdominal distension Absent: abdominal pain, abdominal distension, nausea, vomiting, diarrhea, constipation, melena, hematochezia GENITOURINARY: Absent: dysuria, frequency, urgency, hesitancy, hematuria, flank pain, genital pain MUSCULOSKELETAL: + L sided back pain (from chest pain radiation) Absent: myalgia, arthralgia, joint swelling, back pain, neck pain SKIN: Absent: rash, itching, pallor HEMATOLOGIC/IMMUNOLOGIC: Absent: easy bleeding, easy bruising, lymphadenopathy, frequent infections ENDOCRINE: +weight gain over past week Absent: unexplained weight gain, unexplained weight loss, heat intolerance, cold intolerance NEUROLOGIC: Absent: headache, focal weakness or paresthesias, dizziness, unsteady gait, seizure, mental status changes, bladder or bowel incontinence PSYCHIATRIC: Absent: anxiety, depression, suicidal or homicidal ideation, hallucinations. VITALS on admission 98.9F, pulse 92, 176/140 (was given labetalol 120 mg in ED), RR21 PHYSICAL EXAMINATION GENERAL: Awake, alert, short of breath, in mild distress HEAD: Normal with no signs of trauma. EYES: Pupils equal, round and reactive to light, extraocular movements intact, sclera anicteric, conjunctiva clear. EARS, NOSE, THROAT: oropharynx clear without exudates. Moist mucous membranes. NECK: JVD present LUNGS: wheezing in upper lobes, rhonchi in R lower lobe HEART: Regular rate and rhythm, normal S1 and S2 without murmur, rub or gallop. ABDOMEN: distended, normoactive bowel sounds, tender to palpation RUQ. MUSCULOSKELETAL: Normal range of motion at all joints. UPPER EXTREMITIES: 2+ radial pulses, warm, well-perfused. No peripheral edema. LOWER EXTREMITIES: 2+ pulses, warm, well-perfused. No calf tenderness. No peripheral edema. NEUROLOGICAL: Cranial nerves II-XII intact. Laboratory Results - last 24 hr 09/09/16 13:50 Troponin I 0.03 ASSESSMENT/PLAN: This is a 56 y/o M with PMH of HTN, HTN urgency and pneumonia April, MIx3, HLD, NIDDM, asthma, cocaine use- last week, medication non-adherence, who came to the ED with chest pain since 7am. Patient admitted for chest pain r/o ACS, sepsis seconday to possible pneumonia. 1. Chest pain r/o ACS -First troponin negative, trend -EKG: sinus tachycardia, non specific T wave changes, no significant changes from past EKG (04/2016) -CXR: cardiomegaly -Received morphine in ED, helped chest pain -Aspirin, statin -Stress test -CBC, BMP, Lipid panel, TSH -Cardio on -call Andreicz consulted 2. Sepsis secondary to possible pneumonia -Sepsis: white count 11.5, tachypnea, 110 HR on EKG -yellow-white sputum, pleuritic chest pain -Start Levaquin IV -Urine cx, blood cx -Continue albuterol nebs 3. CHF -Start on ramipril, carvedilol- for cardiac remodeling -Lasix 40mg IV -Echo 4. HTN urgency -BP in ED 176/140, but no signs end organ damage- so urgency -Was given labetalol 20mg in ED 5. NIDDM -Insulin sliding scale -Monitor sugars 6. Alcohol use -Start on librium protocol -Addiction counseling F/E/N -Fluid restrict, Strict I's & O's -Diabetic diet Prophylaxis Heparin 500 BID Disposition Telemetry Visit type - Emergency Visit Emergency Visit: Yes ED Registration Date: 09/09/16 Care time: The patient presented to the Emergency Department on the above date and was hospitalized for further evaluation of their emergent condition. - New Patient This patient is new to me today: Yes Date on this admission: 09/09/16 - Critical Care Critical Care patient: No
--- NOTE | 2016-09-09 15:55 | EKG ---
Test Reason : Blood Pressure : / mmHG Vent. Rate : 110 BPM Atrial Rate : 110 BPM P-R Int : 160 ms QRS Dur : 090 ms QT Int : 356 ms P-R-T Axes : 059 023 019 degrees QTc Int : 481 ms SINUS TACHYCARDIA POSSIBLE LEFT ATRIAL ENLARGEMENT NONSPECIFIC T WAVE ABNORMALITY ABNORMAL ECG WHEN COMPARED WITH ECG OF 21-MAY-2016 08:15, NO SIGNIFICANT CHANGE WAS FOUND Confirmed by ANGELIQUE NELSON MD ([id number] on 09/09/2016 3:54:37 PM Referred By: Confirmed By:ANGELIQUE NELSON MD
[2016-09-09] MEDS ORDERED: chlordiazePOXIDE HCL 25 MG CAPSULE PO PRN (17:00)
[2016-09-09] MEDS: INSULIN SLIDING SCALE (NOVOLOG) 1 VIAL SQ SCH ×2 (17:26→23:14)
--- NOTE | 2016-09-09 18:06 | PN ---
Teaching Attending Note Name of Resident: Ev Toth ATTENDING PHYSICIAN STATEMENT I saw and evaluated the patient. I reviewed the resident's note and discussed the case with the resident. I agree with the resident's findings and plan as documented. SUBJECTIVE: This is a 56-year-old man with a history of HTN, CAD, AK, hyperlipidemia, type 2 DM, asthma, cocaine and alcohol abuse who comes to the ER complaining of sharp stabbing pain in the left side of his chest. He also feels SOB with wheezing and a cough productive of yellow sputum. He denies fever , chills, palpitations, nausea. He has not been taking his medications for about one week. He has gained weight during this period. OBJECTIVE: Vital Signs Period Temp Pulse Resp BP Sys/Caal Pulse Ox Last 24 Hr 98.9 F 86-111 18-22 156-227/99-149 95-100 HEART: S1S2, tachycardic LUNGS: Bilateral rhonchi and wheezes ABDOMEN: Soft, non-tender, non-distended, normal BS EXTREMITIES: No edema Glipizide Xl [Glucotrol Xl -] 5 mg PO DAILY@0700 #60 tab.er.24 02/22/16 Albuterol Sulfate Inhaler - 2 inh PO Q4H #1 inh 05/23/16 [Ventolin HFA Inhaler -] Aspirin Coated [Ecotrin -] 81 mg PO DAILY #30 tab 05/23/16 Atorvastatin Ca [Lipitor] 40 mg PO HS #30 tablet 05/23/16 Carvedilol 12.5 mg PO BID #60 tablet 05/23/16 Furosemide [Lasix -] 40 mg PO DAILY #30 tablet 05/23/16 Hydralazine HCl [Apresoline -] 100 mg PO TID #180 tablet 05/23/16 Isosorbide Mononitrate [Imdur -] 30 mg PO DAILY #30 tab 05/23/16 Nifedipine ER [Procardia XL -] 60 mg PO DAILY #30 tab 05/23/16 Spironolactone [Aldactone] 50 mg PO DAILY #30 tablet 05/23/16 Valsartan [Diovan] ASSESSMENT AND PLAN: This is a 56-year-old man with a history of HTN, CAD, AK, hyperlipidemia, type 2 DM, asthma, cocaine and alcohol abuse who presented to the ER with left-sided sharp stabbing chest pain. 1. Chest pain - Monitor on telemetry - Serial troponins - Cardiology consult 2. CAD, history of AK - Continue aspirin, Procardia, Imdur, Lipitor - Caution with Coreg given patient's recent cocaine use 3. Acute diastolic heart failure - Lasix IV - Continue Aldactone - Echocardiogram - Daily weight - I&O 4. Hypertensive heart disease with chronic diastolic heart failure 5. Hypertensive urgency - Given Labetalol in ER - Restart antihypertensive meds 6. HTN - Continue Procardia, Hydralazine, Imdur, Diovan, Lasix, Aldactone - Caution with Coreg given patient's recent cocaine use 7. Hyperlipidemia - Continue Lipitor 8. Type 2 DM - Hold Glipizide - Fingersticks with Novolog sliding scale 9. Asthma - Wheezing likely secondary to CHF - Albuterol as needed 10. Stage 3 CKD - Stable - Monitor creatinine with diuresis 11. Cocaine abuse 12. Alcohol dependence - Start Librium detox 13. Nicotine dependence - Nicotine patch
[2016-09-09] MEDS ORDERED: hydrALAZINE HCL 50 MG TABLET (FP) PO ONE (21:46)
[2016-09-09] MEDS ORDERED: VALSARTAN 160 MG TABLET (UD) PO ONE (21:46)
[2016-09-09] MEDS ORDERED: ACETAMINOPHEN 325 MG TABLET (FP) PO ONE (21:47)
[2016-09-09] MEDS ORDERED: ATORVASTATIN CA 40 MG TABLET (FP) PO SCH (22:00)
[2016-09-09] MEDS: HEPARIN NA (PORCINE) 5,000 UNITS/ML 1ML VIAL SQ SCH (22:20)
[2016-09-10] MEDS: ALBUTEROL SO4 6.7 GM HFA INHALER IH SCH ×7 (01:15→21:13)
[2016-09-10] MEDS ORDERED: ALBUTEROL SO4 0.083% IH SOL 2.5 MG/3 ML VIAL.NEB. NEB ONE ×2 (04:54→05:26)
[2016-09-10] MEDS: INSULIN SLIDING SCALE (NOVOLOG) 1 VIAL SQ SCH ×4 (06:37→21:42)
[2016-09-10 07:22] LABS: BASOPHIL 0.9 % (0-2.0); EOSINOPHIL 1.8 % (0-4.5); MCH 30.6 pg (25.7-33.7); MCHC 32.1 g/dl (32.0-35.9); MEAN CELL VOLUME 95.4 fl (80-96); MEAN PLT VOLUME 8.4 fl (7.5-11.1); NEUTROPHILS 71.5 % (42.8-82.8); PLATELET COUNT 284 K/MM3 (134-434); RDW 14.7 % (11.9-15.9); WHITE BLOOD COUNT 8.3 K/mm3 (4.0-10.0)
[2016-09-10 07:45] LABS: INR 1.05 (0.82-1.09); PROTHROMBIN TIME (PATIENT) 11.6 SEC (9.98-11.88)
[2016-09-10 07:53] LABS: ANION GAP 9 (8-16); CALCIUM 8.3 mg/dL (8.5-10.1); CO2 23 mmol/L (21-32); GLUCOSE,RANDOM 188 mg/dL (74-106)
[2016-09-10 08:01] LABS: ALK PHOS 131 U/L (45-117); BILIRUBIN,TOTAL 0.6 mg/dL (0.2-1.0); CHOLESTEROL 161 mg/dL (50-200); CREATININE 1.4 mg/dL (0.7-1.3); LDL CHOLESTEROL (ONLY SJRH) 79 mg/dL (5-100); MAGNESIUM 2.2 mg/dL (1.8-2.4); PHOSPHOROUS 3.3 mg/dL (2.5-4.9); SGOT/AST 33 U/L (15-37); SGPT/ALT 41 U/L (12-78); TOT PROT 6.6 g/dl (6.4-8.2)
[2016-09-10] MEDS: hydrALAZINE HCL 50 MG TABLET (FP) PO SCH ×3 (08:16→21:12)
[2016-09-10 10:03] LABS: URINE MARIJUANA THC NEGATIVE ng/ml (CUTOFF=50)
[2016-09-10] MEDS: ISOSORBIDE MONONITRATE 30 MG TAB.SR.24H (FP) PO SCH (11:14)
[2016-09-10] MEDS: CARVEDILOL 12.5 MG TABLET (FP) PO SCH ×2 (11:14→21:12)
[2016-09-10] MEDS: VALSARTAN 160 MG TABLET (UD) PO SCH (11:14)
[2016-09-10] MEDS: SPIRONOLACTONE 25 MG TABLET (FP) PO SCH (11:14)
[2016-09-10] MEDS: ASPIRIN COATED 81 MG TABLET.EC PO SCH (11:14)
[2016-09-10] MEDS: PANTOPRAZOLE 20 MG TABLET (FP) PO SCH (11:14)
[2016-09-10] MEDS ORDERED: morphine CARPU-JECT 2 MG/1 ML DISP.SYRIN IVPUSH ONE (11:17)
--- NOTE | 2016-09-10 12:07 | CON.CARD ---
Consult Consult Specialty:: cardiology Reason for Consultation:: cp - History of Present Illness History of Present Illness: 56y M hx of htn, hl, cad s/p multiple MIs (no stetnts, last cath ~4 yrs ago and was negative), cocaine use (last use last week) presents with chest pain and sob. Pt endorses a chest sharp tightness/sob since awakening this morning. No associated diarphoesis, n/v, cough, hemoptysis, leg swelling. on exam pt in no distress, his vitals noted to be mild tachycardic, otherwise well apeparing. vitals noted for severe hypertension - [t states he hasnt had any of his meds in ~1 week since moving out of his house and being unabl to find his meds. ekg noted for sinus tach but no changes from prior ekg bp noted severely htn - pt given labetalol 20mg for control as pt unclera which meds he is on pts PMD is dr. Matthew but states he has not seen him since last year hypertensive emergency chest pain - will r/o acs, considered PE/dissection, however do not feel his clnical symptoms and presentation c/w with dissection 09/09/16 11:25 trop neg x 1 pt will be placed in observation in cardiac telemetry for management of hypertensive emergency and ACS risk stratefication - History Source History Provided By: Patient, Medical Record - Past Medical History Cardio/Vascular: Yes: HTN, Hyperlipdemia, [place] Gastrointestinal: Yes: GERD Renal/: Yes: Renal Inusuff Musculoskeletal: Yes: Chronic low back pain - Alcohol/Substance Use Hx Alcohol Use: No Number of Drinks Daily: 3 (beer) History of Substance Use: reports: Cocaine - Smoking History Smoking history: Former smoker Have you smoked in the past 12 months: Yes Aproximately how many cigarettes per day: 10 - Social History ADL: Independent Occupation: Employed History of Recent Travel: No Home Medications - Allergies Allergies/Adverse Reactions: Allergies Allergy/AdvReac Type Severity Reaction Status Date / Time IRMA Inhibitors Allergy Verified 09/09/16 09:17 - Home Medications Home Medications: Ambulatory Orders Glipizide Xl [Glucotrol Xl -] 5 mg PO DAILY@0700 #60 tab.er.24 02/22/16 Albuterol Sulfate Inhaler - [Ventolin HFA Inhaler -] 2 inh PO Q4H #1 inh Aspirin Coated [Ecotrin -] 81 mg PO DAILY #30 tab 05/23/16 Atorvastatin Ca [Lipitor] 40 mg PO HS #30 tablet 05/23/16 Carvedilol 12.5 mg PO BID #60 tablet 05/23/16 Furosemide [Lasix -] 40 mg PO DAILY #30 tablet 05/23/16 Hydralazine HCl [Apresoline -] 100 mg PO TID #180 tablet 05/23/16 Isosorbide Mononitrate [Imdur -] 30 mg PO DAILY #30 tab 05/23/16 Nifedipine ER [Procardia XL -] 60 mg PO DAILY #30 tab 05/23/16 Spironolactone [Aldactone] 50 mg PO DAILY #30 tablet 05/23/16 Valsartan [Diovan] 320 mg PO DAILY #60 tablet 05/23/16 Family Disease History - Family Disease History Family Disease History: Diabetes: Sister, Other: Brother (DRUGS) Review of Systems - Review of Systems Constitutional: reports: No Symptoms Eyes: reports: No Symptoms HENT: reports: No Symptoms Neck: reports: No Symptoms Cardiovascular: reports: Chest Pain Gastrointestinal: reports: No Symptoms Genitourinary: reports: No Symptoms Breasts: reports: No Symptoms Reported Musculoskeletal: reports: No Symptoms Integumentary: reports: No Symptoms Neurological: reports: No Symptoms Endocrine: reports: No Symptoms Hematology/Lymphatic: reports: No Symptoms Psychiatric: reports: No Symptoms Vital Signs: Vital Signs Temperature 97.8 F 09/10/16 06:00 Pulse Rate 83 09/10/16 06:00 Respiratory Rate 20 09/10/16 06:00 Blood Pressure 160/108 09/10/16 06:00 O2 Sat by Pulse Oximetry (%) 96 09/09/16 21:17 Constitutional: Yes: Well Nourished, No Distress, Calm Eyes: Yes: WNL, Conjunctiva Clear, EOM Intact HENT: Yes: WNL, Atraumatic, Normocephalic Neck: Yes: WNL, Supple, Trachea Midline Respiratory: Yes: WNL, Regular, CTA Bilaterally Gastrointestinal: Yes: WNL, Normal Bowel Sounds Renal/: Yes: WNL Cardiovascular: Yes: WNL, Regular Rate and Rhythm Musculoskeletal: Yes: WNL Extremities: Yes: WNL Integumentary: Yes: WNL Neurological: Yes: WNL, Alert, Oriented ...Motor Strength: WNL Psychiatric: Yes: WNL, Alert, Oriented - Other Data Labs, Other Data: CBC, BMP 09/10/16 05:35 09/10/16 05:35 INR, PTT INR 1.05 (0.82-1.09) 09/10/16 05:35 Troponin, BNP 09/09/16 13:50 Troponin I 0.03 Troponin, BNP 09/09/16 13:50 Troponin I 0.03 Imaging - Results Chest X-ray: Image Reviewed (no i/e) EKG: Image Reviewed (s tachy) Problem List - Problems (1) Abdominal pain Code(s): R10.9 - UNSPECIFIED ABDOMINAL PAIN (2) Acute on chronic diastolic (congestive) heart failure Code(s): I50.33 - ACUTE ON CHRONIC DIASTOLIC (CONGESTIVE) HEART FAILURE (3) CAP (community acquired pneumonia) Code(s): J18.9 - PNEUMONIA, UNSPECIFIED ORGANISM (4) CHF (congestive heart failure) Code(s): I50.9 - HEART FAILURE, UNSPECIFIED Qualifiers: Congestive heart failure type: unspecified congestive heart failure type Congestive heart failure chronicity: unspecified congestive heart failure chronicity Qualified Code(s): I50.9 - Heart failure, unspecified (5) Chest pain Code(s): R07.9 - CHEST PAIN, UNSPECIFIED Qualifiers: Chest pain type: unspecified Qualified Code(s): R07.9 - Chest pain, unspecified (6) Chest pain at rest Code(s): R07.9 - CHEST PAIN, UNSPECIFIED (7) Cocaine abuse Code(s): F14.10 - COCAINE ABUSE, UNCOMPLICATED (8) Cocaine dependence Code(s): F14.20 - COCAINE DEPENDENCE, UNCOMPLICATED Qualifiers: Substance use status: uncomplicated Qualified Code(s): F14.20 - Cocaine dependence, uncomplicated (9) Cocaine dependence in early, early partial, sustained full, or sustained partial remission Code(s): F14.21 - COCAINE DEPENDENCE, IN REMISSION (10) DVT prophylaxis Code(s): OIU2153 - (11) Hypertensive emergency Code(s): I10 - ESSENTIAL (PRIMARY) HYPERTENSION (12) Orthopnea Code(s): R06.01 - ORTHOPNEA (13) Pulmonary edema Code(s): J81.1 - CHRONIC PULMONARY EDEMA Qualifiers: Chronicity: acute Qualified Code(s): J81.0 - Acute pulmonary edema (14) Reactive airway disease Code(s): J45.909 - UNSPECIFIED ASTHMA, UNCOMPLICATED Qualifiers: Asthma severity: unspecified severity Asthma complication type: with acute exacerbation Qualified Code(s): J45.901 - Unspecified asthma with ( acute) exacerbation (15) Abnormal EKG Code(s): R94.31 - ABNORMAL ELECTROCARDIOGRAM [ECG] [EKG] (16) CKD (chronic kidney disease) stage 3, GFR 30-59 ml/min Code(s): N18.3 - CHRONIC KIDNEY DISEASE, STAGE 3 (MODERATE) (17) Diabetes Code(s): E11.9 - TYPE 2 DIABETES MELLITUS WITHOUT COMPLICATIONS Qualifiers: Diabetes mellitus type: type 2 Chronic kidney disease stage: stage 2 ( mild) (18) HTN (hypertension) Code(s): I10 - ESSENTIAL (PRIMARY) HYPERTENSION Qualifiers: Hypertension type: essential hypertension Qualified Code(s): I10 - Essential (primary) hypertension (19) History of myocardial infarction Code(s): I25.2 - OLD MYOCARDIAL INFARCTION (20) Hyperglycemia due to type 2 diabetes mellitus Code(s): E11.65 - TYPE 2 DIABETES MELLITUS WITH HYPERGLYCEMIA (21) Hyperlipidemia Code(s): E78.5 - HYPERLIPIDEMIA, UNSPECIFIED Qualifiers: Hyperlipidemia type: pure hypercholesterolemia (22) Nicotine dependence Code(s): F17.200 - NICOTINE DEPENDENCE, UNSPECIFIED, UNCOMPLICATED Qualifiers : Nicotine product type: cigarettes (23) Uncontrolled type 2 diabetes mellitus Code(s): E11.65 - TYPE 2 DIABETES MELLITUS WITH HYPERGLYCEMIA (24) Alcohol dependence with uncomplicated withdrawal Code(s): F10.230 - ALCOHOL DEPENDENCE WITH WITHDRAWAL, UNCOMPLICATED (25) Hypertensive urgency Code(s): I16.0 - HYPERTENSIVE URGENCY (26) Pneumonia Code(s): J18.9 - PNEUMONIA, UNSPECIFIED ORGANISM Qualifiers: Pneumonia type: due to unspecified organism Laterality: left Lung location: lower lobe of lung Qualified Code(s): J18.1 - Lobar pneumonia, unspecified organism (27) Shortness of breath Code(s): R06.02 - SHORTNESS OF BREATH (28) Alcohol dependence Code(s): F10.20 - ALCOHOL DEPENDENCE, UNCOMPLICATED Assessment/Plan noncomplience polysubstance abuse htn hlp ashd cocaine abuse chf dm plan r/o mi echo mibi stress test when stable
[2016-09-10 12:32] LABS: TROPONIN I 0.02 ng/ml (0.00-0.05)
--- NOTE | 2016-09-10 12:51 | PN ---
Progress Note (short form) - Note Progress Note: PULMONARY CONSULTATION DICTATED 09/10/16 IMP CHEST PAIN SYNDROME R/O WA HTN URGENCY LV DYSFUNCTION SUBSTANCE ABUSE DM ASTHMA PLAN NASAL O2 ANTI-HYPERTENSIVE MEDS DIURETICS INHALED BRONCHODILATORS PRN FURTHER W/U PER CARDIOLOGY DR DOYLE Problem List - Problems (1) Chest pain Code(s): R07.9 - CHEST PAIN, UNSPECIFIED Qualifiers: Chest pain type: unspecified Qualified Code(s): R07.9 - Chest pain, unspecified (2) Chest pain at rest Code(s): R07.9 - CHEST PAIN, UNSPECIFIED (3) Cocaine abuse Code(s): F14.10 - COCAINE ABUSE, UNCOMPLICATED (4) Diabetes Code(s): E11.9 - TYPE 2 DIABETES MELLITUS WITHOUT COMPLICATIONS Qualifiers: Diabetes mellitus type: type 2 Chronic kidney disease stage: stage 2 ( mild) (5) History of myocardial infarction Code(s): I25.2 - OLD MYOCARDIAL INFARCTION (6) Hypertensive urgency Code(s): I16.0 - HYPERTENSIVE URGENCY (7) Shortness of breath Code(s): R06.02 - SHORTNESS OF BREATH (8) ASHD (arteriosclerotic heart disease) Code(s): I25.10 - ATHSCL HEART DISEASE OF [place] CORONARY ARTERY W/O ANG PCTRS
--- NOTE | 2016-09-10 13:30 | PN ---
Teaching Attending Note Name of Resident: Ev Toth ATTENDING PHYSICIAN STATEMENT I saw and evaluated the patient. I reviewed the resident's note and discussed the case with the resident. I agree with the resident's findings and plan as documented. SUBJECTIVE: Patient feels SOB. He is tachypneic and dyspneic. OBJECTIVE: Vital Signs Period Temp Pulse Resp BP Sys/Caal Pulse Ox Last 24 Hr 97.6 F-98.6 F 80-86 16-20 143-173/83-118 95-96 HEART: S1S2, RRR LUNGS: Bilateral crackles and wheezes ABDOMEN: Soft, non-tender, non-distended, normal BS EXTREMITIES: No edema ASSESSMENT AND PLAN: This is a 56-year-old man with a history of HTN, CAD, PR, hyperlipidemia, type 2 DM, asthma, cocaine and alcohol abuse who presented to the ER with left-sided sharp stabbing chest pain. 1. Chest pain - Monitor on telemetry - Troponins negative - Cardiology consult appreciated - plan for stress test 2. CAD, history of PR - Continue aspirin, Coreg, Procardia, Imdur, Lipitor 3. Acute diastolic heart failure - Continue Lasix IV, Aldactone - Echocardiogram - Daily weight - I&O 4. Hypertensive heart disease with chronic diastolic heart failure 5. Hypertensive urgency - Given Labetalol in ER 6. HTN - Continue Coreg, Procardia, Hydralazine, Imdur, Diovan, Lasix, Aldactone 7. Hyperlipidemia - Continue Lipitor 8. Type 2 DM - Glipizide held - Continue Novolog sliding scale 9. Asthma - Albuterol as needed - Pulmonary consult 10. Stage 3 CKD - Stable - Monitor creatinine with diuresis 11. Cocaine abuse 12. Alcohol dependence - Continue Librium detox 13. Nicotine dependence - Continue Nicotine patch
[2016-09-10] MEDS ORDERED: hydrALAZINE HCL 50 MG TABLET (FP) PO SCH (14:00)
[2016-09-10] MEDS: HEPARIN NA (PORCINE) 5,000 UNITS/ML 1ML VIAL SQ SCH ×2 (14:00→21:12)
--- NOTE | 2016-09-10 14:57 | EKG ---
Test Reason : Blood Pressure : / mmHG Vent. Rate : 084 BPM Atrial Rate : 084 BPM P-R Int : 174 ms QRS Dur : 102 ms QT Int : 402 ms P-R-T Axes : 056 022 028 degrees QTc Int : 475 ms NORMAL SINUS RHYTHM POSSIBLE LEFT ATRIAL ENLARGEMENT NONSPECIFIC T WAVE ABNORMALITY PROLONGED QT ABNORMAL ECG WHEN COMPARED WITH ECG OF 09-SEP-2016 09:10, NO SIGNIFICANT CHANGE WAS FOUND Confirmed by KIKI CHILDRESS, NIK ([id number]) on 09/10/2016 2:57:36 PM Referred By: Demetria GREENE Confirmed By:NIK SWANSON MD
--- NOTE | 2016-09-10 15:02 | CONSULT ---
Consult Detox [facility] Reason for Current Admission/Consult: chest pain assoc. with sob with positive urine toxicologgy for cocaine and opioids . - History History of Present Illness: 56y/o m pt with h/o CAD(AL's x 3), htn , dm , hyperlipidemia with h/o cocaine abuse came to ED after c/o chest pain assoc. with sob. - History Source History Provided By: Patient Limitations to Obtaining History: No Limitations - Alcohol/Substance Use Hx Alcohol Use: Yes (4- 12oz beers every other day) Hx Substance Use: Yes (cocaine/crack ) Hx Substance Use Treatment: Yes ([facility]2013) - Current Drug/Alcohol Use Alcohol Route: Oral Frequency: 3-6 times per week Amount used: 4- 12oz cans /use Age of first use: 20 Date of Last Use: 09/08/16 Cocaine Route: Inhalation Frequency: 1-3 times last 30 days Amount used: $20. Age of first use: 29 Date of Last Use: 09/05/16 - Past Medical History Cardio/Vascular: Yes: HTN, Hyperlipdemia, [place] Gastrointestinal: Yes: GERD Renal/: Yes: Renal Inusuff Musculoskeletal: Yes: Chronic low back pain Additional Medical History: rt achilles tendon tear. rt testicular torsion - Significant Medical Findings: 56 y/o obese m lying in bed, comfortable,in nad , cooperative ,responding appropriately. skin no diaphoresis eyes small pupils , errl neuro intact ,no tremor COWS - Scale Goose Flesh Skin: 0=Smooth Skin Assessment Plan - Diagnosis (1) Cocaine abuse Status: Acute (2) Diabetes Status: Chronic Qualifiers: Diabetes mellitus type: type 2 Chronic kidney disease stage: stage 2 ( mild) Comment: Harmful effects of cocaine use discussed with this pt who has h/o ASHD. Rehab at [facility] was recommended to pt but he states his use is infrequent and he doesn't need it. (3) HTN (hypertension) Status: Chronic Qualifiers: Hypertension type: essential hypertension Qualified Code(s): I10 - Essential (primary) hypertension (4) Hyperlipidemia Status: Chronic Qualifiers: Hyperlipidemia type: pure hypercholesterolemia (5) Uncontrolled type 2 diabetes mellitus Status: Chronic (6) Nicotine abuse Status: Acute Comment: pt reports smoking 2-3 cigs when he drinks . Need for discontinution of cig. smoking stressed . - Plan Plan: Pt strongly encouraged to attend out pt rehab or out pt treatment program for cocaine and cig smoking cessation . Pt denied opioid /heroin abuse/dep. . He has negative u. tox for opioids on other multiple admissions and there is no evidence of opioid withdrawal at this time. Therefore will not place on detox protocol. - Medication Detox Regimen/Protocol: Not Applicable
--- NOTE | 2016-09-10 16:33 | PN ---
Physical Exam: SUBJECTIVE: Patient seen and examined at bedside. Pt in distress, labored breathing, coughing up mucopurelent sputum. States that he is having trouble getting air in. Denies chest pain or headache. OBJECTIVE: Vital Signs Period Temp Pulse Resp BP Sys/Caal Pulse Ox Last 24 Hr 97.4 F-98.6 F 80-86 16-20 143-173/83-118 95-96 GENERAL: The patient is awake, alert, and fully oriented, in distress HEAD: Normal with no signs of trauma. EYES: PERRL, extraocular movements intact, sclera anicteric, conjunctiva clear. ENT: oropharynx mild erythema, moist mucous membranes. NECK: Trachea midline, supple. LUNGS: Breath sounds equal, clear to auscultation bilaterally, no wheezes, no crackles, no accessory muscle use. HEART: Regular rate and rhythm, S1, S2 without murmur, rub or gallop. ABDOMEN: Soft, nontender, nondistended, normoactive bowel sounds, no guarding, no rebound EXTREMITIES: 2+ posterior tibial pulses, warm, well-perfused, no edema. NEUROLOGICAL: Cranial nerves II through XII grossly intact. Laboratory Results - last 24 hr 09/09/16 09/09/16 09/10/16 17:25 23:08 05:17 WBC RBC Hgb Hct MCV MCH MCHC RDW Plt Count MPV Neutrophils % Lymphocytes % Monocytes % Eosinophils % Basophils % ESR INR Sodium Potassium Chloride Carbon Dioxide Anion Gap BUN Creatinine Creat Clearance w eGFR POC Glucometer 199.37686 204 220 Random Glucose Hemoglobin A1c % Calcium Phosphorus Magnesium Total Bilirubin AST ALT Alkaline Phosphatase Creatine Kinase Troponin I Total Protein Albumin Triglycerides Cholesterol Total LDL Cholesterol HDL Cholesterol TSH Opiates Screen Methadone Screen Barbiturate Screen Phencyclidine Screen Ur Amphetamines Screen MDMA (Ecstasy) Screen Benzodiazepines Screen Cocaine Screen U Marijuana (THC) Screen 09/10/16 09/10/16 09/10/16 05:35 05:35 05:35 WBC 8.3 RBC 3.70 L Hgb 11.3 L Hct 35.3 L MCV 95.4 MCH 30.6 MCHC 32.1 RDW 14.7 Plt Count 284 MPV 8.4 Neutrophils % 71.5 Lymphocytes % 19.3 D Monocytes % 6.5 Eosinophils % 1.8 D Basophils % 0.9 ESR INR 1.05 Sodium 137 Potassium 3.7 Chloride 105 Carbon Dioxide 23 Anion Gap 9 BUN 15 Creatinine 1.4 H Creat Clearance w eGFR 52.62 POC Glucometer Random Glucose 188 H Hemoglobin A1c % Calcium 8.3 L Phosphorus 3.3 Magnesium 2.2 Total Bilirubin 0.6 AST 33 D ALT 41 Alkaline Phosphatase 131 H Creatine Kinase Troponin I Total Protein 6.6 Albumin 3.0 L Triglycerides 152 Cholesterol 161 Total LDL Cholesterol 79 HDL Cholesterol 49 D TSH 1.70 Opiates Screen Methadone Screen Barbiturate Screen Phencyclidine Screen Ur Amphetamines Screen MDMA (Ecstasy) Screen Benzodiazepines Screen Cocaine Screen U Marijuana (THC) Screen 09/10/16 09/10/16 09/10/16 05:35 05:35 07:00 WBC RBC Hgb Hct MCV MCH MCHC RDW Plt Count MPV Neutrophils % Lymphocytes % Monocytes % Eosinophils % Basophils % ESR 60 H INR Sodium Potassium Chloride Carbon Dioxide Anion Gap BUN Creatinine Creat Clearance w eGFR POC Glucometer Random Glucose Hemoglobin A1c % 5.9 D Calcium Phosphorus Magnesium Total Bilirubin AST ALT Alkaline Phosphatase Creatine Kinase Troponin I Total Protein Albumin Triglycerides Cholesterol Total LDL Cholesterol HDL Cholesterol TSH Opiates Screen Positive Methadone Screen Negative Barbiturate Screen Negative Phencyclidine Screen Negative Ur Amphetamines Screen Negative MDMA (Ecstasy) Screen Negative Benzodiazepines Screen Negative Cocaine Screen Positive U Marijuana (THC) Screen Negative 09/10/16 09/10/16 11:25 15:47 WBC RBC Hgb Hct MCV MCH MCHC RDW Plt Count MPV Neutrophils % Lymphocytes % Monocytes % Eosinophils % Basophils % ESR INR Sodium Potassium Chloride Carbon Dioxide Anion Gap BUN Creatinine Creat Clearance w eGFR POC Glucometer 208 Random Glucose Hemoglobin A1c % Calcium Phosphorus Magnesium Total Bilirubin AST ALT Alkaline Phosphatase Creatine Kinase 77 Troponin I 0.02 D Total Protein Albumin Triglycerides Cholesterol Total LDL Cholesterol HDL Cholesterol TSH Opiates Screen Methadone Screen Barbiturate Screen Phencyclidine Screen Ur Amphetamines Screen MDMA (Ecstasy) Screen Benzodiazepines Screen Cocaine Screen U Marijuana (THC) Screen Active Medications Generic Name Dose Route Start Last Admin Trade Name Freq PRN Reason Stop Dose Admin Albuterol Sulfate 2 puff 09/09/16 13:15 09/10/16 04:45 Ventolin Hfa Inhaler - IH 2 puff Q4H PUSHPA Administration Aspirin 81 mg 09/10/16 10:00 09/10/16 11:14 Ecotrin - PO 81 mg DAILY PUSHPA Administration Atorvastatin Calcium 40 mg 09/10/16 22:00 Lipitor - PO HS PUSHPA Carvedilol 12.5 mg 09/09/16 13:30 09/10/16 11:14 Coreg - PO 12.5 mg BID PUSHPA Administration Chlordiazepoxide HCl 25 mg 09/09/16 17:00 Librium - PO 09/11/16 11:01 [id number] PRN WITHDRAWAL(CONT SUBST) Chlordiazepoxide HCl 15 mg 09/09/16 13:41 Librium - PO 09/11/16 06:01 Q6HPO PRN WITHDRAWAL(CONT SUBST) Furosemide 40 mg 09/10/16 14:00 Lasix Injection - IVPB BIDLASIX PUSHPA Heparin Sodium (Porcine) 5,000 unit 09/09/16 22:00 09/09/16 22:20 Heparin - SQ 5,000 unit BID PUSHPA Administration Hydralazine HCl 100 mg 09/10/16 08:15 09/10/16 08:16 Apresoline - PO 100 mg TID PUSHPA Administration Insulin Aspart 1 vial 09/09/16 16:30 09/10/16 12:57 Novolog Vial Sliding Scale - SQ Not Given ACHS [facility] Protocol Isosorbide Mononitrate 30 mg 09/09/16 13:30 09/10/16 11:14 Imdur - PO 30 mg DAILY PUSHPA Administration Nicotine 7 mg 09/10/16 10:00 Nicoderm Patch - TD DAILY [facility] Pantoprazole Sodium 20 mg 09/10/16 10:00 09/10/16 11:14 Protonix - PO 20 mg DAILY PUSHPA Administration Spironolactone 50 mg 09/09/16 13:30 09/10/16 11:14 Aldactone - PO 50 mg DAILY PUSHPA Administration Valsartan 320 mg 09/10/16 10:00 09/10/16 11:14 Diovan - PO 320 mg DAILY PUSHPA Administration ASSESSMENT/PLAN: This is a 56 y/o M with PMH of HTN, HTN urgency and pneumonia April, MIx, HLD, NIDDM, asthma, cocaine use- last week, medication non-adherence, who came to the ED with chest pain since 7am. Patient admitted for chest pain r/o ACS, sepsis secondary to possible pneumonia. 1. Chest pain r/o IA -MIBI stress test ordered 2. Sepsis secondary to possible pneumonia -Sepsis: white count trended down to 8.3, 83 HR, afebrile- resolving -coughing up mucopurulent sputum -CXR: negative 3. CHF -ECHO- completed, waiting for result -Lasix 40 IVPB, aldactone 50mg PO 4. HTN urgency -continue Hydralazine 100 mg P TID, diovan 320 mg, Coreg 12.5 -monitor BP 5. Asthma - continue Ventolin 2 puff q4 5. NIDDM -Insulin sliding scale -Monitor sugars 6. Alcohol use Detox consultation: Pt strongly encouraged to attend out pt rehab or out pt treatment program for cocaine and cig smoking cessation . Pt denied opioid /heroin abuse/dep. He has negative u. tox for opioids on other multiple admissions and there is no evidence of opioid withdrawal at this time. Therefore will not place on detox protocol. F/E/N -Fluid restrict, Strict I's & O's -Diabetic diet Prophylaxis Heparin 500 BID Visit type - Emergency Visit Emergency Visit: No - New Patient This patient is new to me today: No - Critical Care Critical Care patient: No - Discharge Referral Referred to [facility] No
[2016-09-10] MEDS: FUROSEMIDE 40 MG/4 ML INJECTABLE VIAL IVPB SCH (16:43)
[2016-09-10] MEDS: NICOTINE 7 MG/24 HOURS TOPICAL PATCH TD SCH (16:43)
[2016-09-10 18:53] LABS: TROPONIN I 0.02 ng/ml (0.00-0.05)
[2016-09-10] MEDS ORDERED: ACETAMINOPHEN 325 MG TABLET (FP) PO ONE (20:55)
[2016-09-10] MEDS: ATORVASTATIN CA 40 MG TABLET (FP) PO SCH (21:12)
[2016-09-10] MEDS ORDERED: INSULIN (NOVOLOG) ASPART 100 UNITS/ML 10ML VIAL ONE (21:42)
[2016-09-11] MEDS: ALBUTEROL SO4 6.7 GM HFA INHALER IH SCH ×3 (01:30→17:45)
[2016-09-11] MEDS ORDERED: hydrALAZINE HCL 50 MG TABLET (FP) PO ONE (02:46)
[2016-09-11] MEDS: FUROSEMIDE 40 MG/4 ML INJECTABLE VIAL IVPB SCH ×2 (05:25→14:36)
[2016-09-11] MEDS: hydrALAZINE HCL 50 MG TABLET (FP) PO SCH ×3 (05:26→22:08)
[2016-09-11] MEDS: INSULIN SLIDING SCALE (NOVOLOG) 1 VIAL SQ SCH ×4 (06:08→22:08)
[2016-09-11] MEDS: ISOSORBIDE MONONITRATE 30 MG TAB.SR.24H (FP) PO SCH (08:40)
[2016-09-11] MEDS: VALSARTAN 160 MG TABLET (UD) PO SCH (08:41)
--- NOTE | 2016-09-11 09:28 | PN ---
Progress Note, Physician Chief Complaint: Pt ambulatory; no chest pain or dyspnea; no palpitations. History of Present Illness: 56y black man with PM hx of cocaine abuse (reports last use as one week ago) htn , hl, ?cad ?s/p multiple MIs (no stents, had a coronary cath ~4 yrs ago and was reportedly negative), presents with chest pain and sob. Pt endorses a chest sharp tightness/sob since awakening this morning. No associated diarphoresis, n /v, cough, hemoptysis, leg swelling. on exam pt in no distress, his vitals noted to be mild tachycardic, otherwise well-appearing. vitals noted for severe hypertension - [t states he hasnt had any of his meds in ~1 week since moving out of his mother's house and being unable to find his meds. ekg noted for sinus tach but no changes from prior ekg bp noted severely htn - pt given labetalol 20mg for control as pt unclera which meds he is on pts PMD is dr. Purvis but states he has not seen him since last year hypertensive emergency chest pain - will r/o acs, considered PE/dissection, however do not feel his clinical symptoms and presentation c/w with dissection 09/09/16 11:25 trop neg x 1 pt will be placed in observation in cardiac telemetry for management of hypertensive emergency and ACS risk stratefication - Current Medication List Current Medications: Active Medications Albuterol Sulfate (Ventolin Hfa Inhaler -) 2 puff IH Q4H [facility] Last Admin: 09/11/16 06:09 Dose: Not Given Aspirin (Ecotrin -) 81 mg PO DAILY [facility] Last Admin: 09/10/16 11:14 Dose: 81 mg Atorvastatin Calcium (Lipitor -) 40 mg PO HS [facility] Last Admin: 09/10/16 21:12 Dose: 40 mg Carvedilol (Coreg -) 12.5 mg PO BID [facility] Last Admin: 09/10/16 21:12 Dose: 12.5 mg Chlordiazepoxide HCl (Librium -) 25 mg PO [id number] PRN PRN Reason: WITHDRAWAL(CONT SUBST) Stop: 09/11/16 11:01 Furosemide (Lasix Injection -) 40 mg IVPB BIDLASIX [facility] Last Admin: 09/11/16 05:25 Dose: 40 mg Heparin Sodium (Porcine) (Heparin -) 5,000 unit SQ BID [facility] Last Admin: 09/10/16 21:12 Dose: 5,000 unit Hydralazine HCl (Apresoline -) 100 mg PO TID [facility] Last Admin: 09/11/16 05:26 Dose: 100 mg Insulin Aspart (Novolog Vial Sliding Scale -) 1 vial SQ ACHS [facility] PRN Reason: Protocol Last Admin: 09/11/16 06:08 Dose: Not Given Isosorbide Mononitrate (Imdur -) 30 mg PO DAILY [facility] Last Admin: 09/11/16 08:40 Dose: 30 mg Nicotine (Nicoderm Patch -) 7 mg TD DAILY [facility] Last Admin: 09/10/16 16:43 Dose: Not Given Pantoprazole Sodium (Protonix -) 20 mg PO DAILY [facility] Last Admin: 09/10/16 11:14 Dose: 20 mg Spironolactone (Aldactone -) 50 mg PO DAILY [facility] Last Admin: 09/10/16 11:14 Dose: 50 mg Valsartan (Diovan -) 320 mg PO DAILY [facility] Last Admin: 09/11/16 08:41 Dose: 320 mg - Objective Vital Signs: Vital Signs Temperature 98.1 F 09/11/16 08:00 Pulse Rate 90 09/11/16 08:00 Respiratory Rate 20 09/11/16 08:00 Blood Pressure 160/104 09/11/16 08:00 O2 Sat by Pulse Oximetry (%) 98 09/10/16 20:28 Constitutional: Yes: Calm Eyes: Yes: WNL HENT: Yes: WNL Neck: Yes: WNL Cardiovascular: Yes: Regular Rate and Rhythm, S4 Respiratory: Yes: Regular Gastrointestinal: Yes: Soft ...Rectal Exam: Yes: Deferred Genitourinary: No: Anuria Musculoskeletal: Yes: WNL Extremities: Yes: WNL Edema: No Peripheral Pulses WNL: Yes Integumentary: Yes: WNL Neurological: Yes: WNL Psychiatric: Yes: Other (addictice personality) Labs: CBC, BMP 09/10/16 05:35 09/10/16 05:35 INR, PTT INR 1.05 (0.82-1.09) 09/10/16 05:35 - ....Imaging Other: Image Reviewed (telemetry: NSR) Problem List - Problems (1) ASHD (arteriosclerotic heart disease) Code(s): I25.10 - ATHSCL HEART DISEASE OF [place] CORONARY ARTERY W/O ANG PCTRS (2) Chest pain Assessment/Plan: atypical presentation. Multiple CAD risks. TNI 0.03--> 0.02 x 2. Await stress treadmill MIBI. ECHO: mild-moderately reduced LVEF with regional wall motion abnormalities, severe MR. Control BP and HR. (Would gradually decrease and d/c beta blockers due to active cocaine use, though its use would be beneficial for systolic LV dysfunction, CAD). Code(s): R07.9 - CHEST PAIN, UNSPECIFIED Qualifiers: Qualified Code(s): R07.9 - Chest pain, unspecified (3) Cocaine abuse Assessment/Plan: Pt;s insight is poor. Dextox protocol (also for alcohol; pt has at least 4 beers daily). Code(s): F14.10 - COCAINE ABUSE, UNCOMPLICATED (4) HTN (hypertension) Code(s): I10 - ESSENTIAL (PRIMARY) HYPERTENSION Qualifiers: Qualified Code(s): I10 - Essential (primary) hypertension (5) Hyperlipidemia Assessment/Plan: Statin; keep LDL cholesterol < 70 mg/dL. Code(s): E78.5 - HYPERLIPIDEMIA, UNSPECIFIED Qualifiers: Qualified Code(s): E78.00 - Pure hypercholesterolemia, unspecified; E78.0 - Pure hypercholesterolemia (6) Nicotine dependence Code(s): F17.200 - NICOTINE DEPENDENCE, UNSPECIFIED, UNCOMPLICATED (7) Uncontrolled type 2 diabetes mellitus Code(s): E11.65 - TYPE 2 DIABETES MELLITUS WITH HYPERGLYCEMIA (8) Alcohol dependence with uncomplicated withdrawal Code(s): F10.230 - ALCOHOL DEPENDENCE WITH WITHDRAWAL, UNCOMPLICATED (9) Acute on chronic systolic (congestive) heart failure Assessment/Plan: ECHO results noted. Hx coronary angiogram several years ago at [facility]; pt says no stent was placed. Noncompliant to all medications for at least a week. Restarted all medications; f/u BP and HR serially. Problematic using carvedilol (beneficial for pt's systolic dysfunction, but he is an active cocaine user, which generally contraindicates use of beta blockers) . For stress MIBI. Poor understanding of the risks he is taking with his health. Code(s): I50.23 - ACUTE ON CHRONIC SYSTOLIC (CONGESTIVE) HEART FAILURE
[2016-09-11] MEDS ORDERED: DIPYRIDAMOLE 50 MG/10 ML VIAL IVPB ONE (11:55)
[2016-09-11] MEDS ORDERED: DIPYRIDAMOLE STRESS TEST 50 MG in DEXTROSE 5%-WATER - 40 ML IVPB ONE (12:00)
--- NOTE | 2016-09-11 12:03 | PN ---
Physical Exam: SUBJECTIVE: Patient seen and examined at bedside. Pt states that his breathing is better this morning, however pt on 5L 02 NC during this time. Denies chest or lower extremity pain. OBJECTIVE: Vital Signs Period Temp Pulse Resp BP Sys/Caal Pulse Ox Last 24 Hr 97.4 F-98.7 F 81-92 18-20 146-177/93-123 98-100 GENERAL: The patient is awake, alert, and fully oriented, in no acute distress. HEAD: Normal with no signs of trauma. EYES: PERRL, extraocular movements intact, sclera anicteric, conjunctiva clear. ENT: oropharynx clear without exudates, moist mucous membranes. NECK: Trachea midline, supple. LUNGS: Breath sounds equal, clear to auscultation bilaterally. Did not appreciate any wheezes, crackles, rhonchi. HEART: Regular rate and rhythm, S1, S2 without murmur, rub or gallop. ABDOMEN: Soft, nontender, nondistended, normoactive bowel sounds, no guarding, no rebound, no hepatosplenomegaly, no masses. EXTREMITIES: 2+ posterior tibial pulses, warm, well-perfused, no edema. NEUROLOGICAL: Cranial nerves II through XII grossly intact. Normal speech, gait not observed. PSYCH: Normal mood, normal affect. SKIN: Warm, dry, normal turgor, no rashes or lesions noted Laboratory Results - last 24 hr 09/10/16 09/10/16 09/10/16 11:25 15:47 18:00 POC Glucometer 208 Creatine Kinase 77 100 Troponin I 0.02 D 0.02 09/10/16 09/11/16 21:39 06:06 POC Glucometer 223 175 Creatine Kinase Troponin I Active Medications Generic Name Dose Route Start Last Admin Trade Name Freq PRN Reason Stop Dose Admin Albuterol Sulfate 2 puff 09/09/16 13:15 09/11/16 06:09 Ventolin Hfa Inhaler - IH Not Given Q4H [facility] Aspirin 81 mg 09/10/16 10:00 09/10/16 11:14 Ecotrin - PO 81 mg DAILY [facility] Administration Atorvastatin Calcium 40 mg 09/10/16 22:00 09/10/16 21:12 Lipitor - PO 40 mg HS [facility] Administration Carvedilol 12.5 mg 09/09/16 13:30 09/10/16 21:12 Coreg - PO 12.5 mg BID [facility] Administration Furosemide 40 mg 09/10/16 14:00 09/11/16 05:25 Lasix Injection - IVPB 40 mg BIDLASIX [facility] Administration Heparin Sodium (Porcine) 5,000 unit 09/09/16 22:00 09/10/16 21:12 Heparin - SQ 5,000 unit BID [facility] Administration Hydralazine HCl 100 mg 09/10/16 08:15 09/11/16 05:26 Apresoline - PO 100 mg TID [facility] Administration Insulin Aspart 1 vial 09/09/16 16:30 09/11/16 06:08 Novolog Vial Sliding Scale - SQ Not Given ACHS [facility] Protocol Isosorbide Mononitrate 30 mg 09/09/16 13:30 09/11/16 08:40 Imdur - PO 30 mg DAILY [facility] Administration Nicotine 7 mg 09/10/16 10:00 09/10/16 16:43 Nicoderm Patch - TD Not Given DAILY [facility] Pantoprazole Sodium 20 mg 09/10/16 10:00 09/10/16 11:14 Protonix - PO 20 mg DAILY [facility] Administration Spironolactone 50 mg 09/09/16 13:30 09/10/16 11:14 Aldactone - PO 50 mg DAILY [facility] Administration Valsartan 320 mg 09/10/16 10:00 09/11/16 08:41 Diovan - PO 320 mg DAILY [facility] Administration Recent tests undergone Stress test (09/11/16): changed to persantine from MIBI because patient had high BP. Found moderate intensity fixed defect inferior wall, consistent with scar. LVEF 32%. Nondiagnostic EKG because of baseline EKG abnormalities Echo: abnormal LV wall motion, lower IV septal thinning and dyskinesia, focal thickening of R coronary cusp, can't exclude vegetation, severe mitral regurgitation ASSESSMENT/PLAN: This is a 56 y/o M with PMH of HTN, HTN urgency and pneumonia April, MIx3, HLD, NIDDM, asthma, cocaine use- last week, medication non-adherence, who came to the ED with chest pain since 7am. Patient admitted for chest pain r/o ACS, sepsis secondary to possible pneumonia. 1. Chest pain r/o MN -Stress test today (09/11/16): Was changed to persantine from MIBI because patient had high BP. Found moderate intensity fixed defect inferior wall consistent with scar, LVEF 32% -Non diagnostic persantine EKG because of baseline EKG abnormalities 2. Sepsis secondary to possible pneumonia -Sepsis: white count trended down to 8.3, 83 HR, afebrile- resolving (09/10) -CXR: negative 3. CHF -ECHO- abnormal LV wall motion, lower IV septal thinning and dyskinesia, focal thickening of R coronary cusp, can't exclude vegetation, severe mitral regurgitation -Lasix 40 IVPB, aldactone 50mg PO 4. HTN urgency -continue Hydralazine 100 mg P TID, diovan 320 mg, Coreg 12.5 -monitor BP, give few days to normalize since he is non-compliant with medications -However with Coreg: may need to switch because pt is a cocaine user and BB are contraindicated in users -given AM BP meds before stress test 5. Asthma - continue Ventolin 2 puff q4 5. NIDDM -Insulin sliding scale -Monitor sugars (last glucose 175) 6. Alcohol use/Smoking cessation -Utox + for opiates (09/10) -Nicoderm patch- 7 mg TD daily not given yet today F/E/N -Fluid restrict, Strict I's & O's -Diabetic diet Prophylaxis Heparin 500 BID Visit type - Emergency Visit Emergency Visit: No - New Patient This patient is new to me today: No - Critical Care Critical Care patient: No
[2016-09-11] MEDS: HEPARIN NA (PORCINE) 5,000 UNITS/ML 1ML VIAL SQ SCH ×2 (13:15→22:08)
[2016-09-11] MEDS: CARVEDILOL 12.5 MG TABLET (FP) PO SCH (13:16)
[2016-09-11] MEDS: SPIRONOLACTONE 25 MG TABLET (FP) PO SCH (13:16)
[2016-09-11] MEDS: PANTOPRAZOLE 20 MG TABLET (FP) PO SCH (13:16)
[2016-09-11] MEDS: ASPIRIN COATED 81 MG TABLET.EC PO SCH (13:16)
--- NOTE | 2016-09-11 13:33 | CONS ---
PULMONARY CONSULTATION DATE OF CONSULTATION: 09/10/2016 REFERRING PHYSICIAN: Nils Quevedo MD HISTORY OF PRESENT ILLNESS: The patient is a 56-year-old black male with an extensive past medical history which includes hypertension; ASHD status post AR x3, history of cardiac catheterization 4 years ago that apparently showed normal vessels; hyperlipidemia; [id number] diabetes mellitus; asthma; a history of cocaine smoking, most recently 1 week ago, a history of occasional tobacco use. He was admitted to [facility] on September 09, 2016 with a complaint of chest pain. The patient stated that he developed chest pain at approximately 7 a.m. when he was getting his little nephew dressed to go to [place]. He describes the pain as a pressure-like sensation, like somebody was sitting on his chest. He denied any nausea, vomiting or diaphoresis associated with his pain. He states the pain was constant and that it radiated to the left mid-back and left upper arm. He presented to the emergency room as noted above. Of note, he also complains of occasional shortness of breath and dyspnea on exertion. He states that he has a history of asthma during childhood and has a pump but does not use it too frequently. On his most recent hospitalization, he also complained of shortness of breath and occasional bronchospasm, cough productive of yellow sputum, though chest x-ray appeared normal. He denied any fevers, weight loss, or night sweats. Denied any hemoptysis. PAST MEDICAL HISTORY: Again, this includes ASHD status post AR x3, hypertension, [id number] diabetes mellitus, asthma and a history of substance abuse. REVIEW OF SYSTEMS: No orthopnea. Positive chest pain. Positive occasional cough. Positive occasional wheezing. No nausea. No vomiting. No abdominal pain. No fevers. No chills. No lower extremity edema. MEDICATIONS PRIOR TO ADMISSION: Glucotrol XL, albuterol inhaler, Ecotrin, Lipitor, carvedilol, Lasix, Apresoline, Imdur, Procardia, Aldactone and Diovan. CURRENT MEDICATIONS: Diovan, heparin, NicoDerm patch, Librium, albuterol inhaler, Coreg, Apresoline, Lipitor, Lasix, Aldactone, Imdur and Protonix. PHYSICAL EXAMINATION: General: The patient is a well-developed, well-nourished male, awake, alert, in no acute distress. Vital Signs: He is currently afebrile. Blood pressure 160/108, respiratory rate is 20, O2 saturation is 95% on room air. He is afebrile. HEENT: Normocephalic, atraumatic. Neck: Supple. Heart: Regular with S1, S2. Chest: Clear. Abdomen: Soft. Positive bowel sounds. Extremities: No cyanosis or edema. LABORATORY DATA: BUN of 15, creatinine 1.4. WBCs 8.3, hemoglobin 11.3, hematocrit 35.3, platelet count 284,000. A chest x-ray reveals no infiltrates or effusions. An echocardiogram reveals LV normal in size. LV systolic function is mildly to moderately impaired, abnormal LV wall motion with mild to moderate aortic sclerosis. There is severe mitral regurgitation; cannot exclude vegetation. There is focal narrow thickening of the right coronary cusp; cannot exclude vegetation. IMPRESSION: 1. Chest pain syndrome/acute coronary syndrome, myocardial infarction. 2. Hypertensive urgency. 3. History of substance abuse. 4. Hyperlipidemia. 5. Congestive heart failure. 6. Diabetes. PLAN: 1. Continue cardiac enzymes. 2. Further workup as per Cardiology. 3. Antihypertensive medications. 4. Monitor blood pressure. 5. Inhaled bronchodilators p.rying DOYLE M.D. GRISELDA/[id number]
[2016-09-11] MEDS ORDERED: ACETAMINOPHEN 325 MG TABLET (FP) PO ONE (13:55)
[2016-09-11] MEDS: NICOTINE 7 MG/24 HOURS TOPICAL PATCH TD SCH (14:33)
[2016-09-11] MEDS: amLODIPine BESYLATE 5 MG TABLET (FP) PO SCH (15:59)
--- NOTE | 2016-09-11 16:19 | PN ---
Teaching Attending Note Name of Resident: Ev Toth ATTENDING PHYSICIAN STATEMENT I saw and evaluated the patient. I reviewed the resident's note and discussed the case with the resident. I agree with the resident's findings and plan as documented. SUBJECTIVE: Patient feels better. OBJECTIVE: Vital Signs Period Temp Pulse Resp BP Sys/Caal Pulse Ox Last 24 Hr 97.6 F-98.7 F 81-95 18-20 146-180/93-123 98-100 HEART: S1S2, RRR LUNGS: Bibasilar crackles ABDOMEN: Soft, non-tender, non-distended, normal BS EXTREMITIES: No edema ASSESSMENT AND PLAN: This is a 56-year-old man with a history of HTN, CAD, CO, hyperlipidemia, type 2 DM, asthma, cocaine and alcohol abuse who presented to the ER with left-sided sharp stabbing chest pain. 1. Chest pain - Monitor on telemetry - Troponins negative - Plan for stress test today 2. CAD, history of CO - Continue aspirin, Coreg, Procardia, Imdur, Lipitor 3. Acute systolic and diastolic heart failure - Continue Lasix IV, Aldactone, Diovan - On Coreg, however patient uses cocaine - Echocardiogram shows mild to moderately reduced LVEF, regional wall motion abnormalities, severe MR - Daily weight - I&O 4. Hypertensive heart disease with chronic diastolic heart failure 5. Hypertensive urgency - Given Labetalol in ER 6. HTN - Continue Coreg, Procardia, Hydralazine, Imdur, Diovan, Lasix, Aldactone 7. Severe mitral regurgitation 8. Hyperlipidemia - Continue Lipitor 9. Type 2 DM - Glipizide held - Continue Novolog sliding scale 10. Asthma - Continue Albuterol as needed 11. Stage 3 CKD - Stable 12. Cocaine abuse 13. Alcohol dependence - Continue Librium detox 14. Nicotine dependence - Continue Nicotine patch
[2016-09-11] MEDS: ATORVASTATIN CA 40 MG TABLET (FP) PO SCH (22:08)
[2016-09-12] MEDS: hydrALAZINE HCL 50 MG TABLET (FP) PO SCH ×3 (05:38→21:39)
[2016-09-12] MEDS: FUROSEMIDE 40 MG/4 ML INJECTABLE VIAL IVPB SCH ×2 (05:38→14:57)
[2016-09-12] MEDS: INSULIN SLIDING SCALE (NOVOLOG) 1 VIAL SQ SCH ×4 (06:29→21:35)
[2016-09-12] MEDS: SPIRONOLACTONE 25 MG TABLET (FP) PO SCH (09:35)
[2016-09-12] MEDS: PANTOPRAZOLE 20 MG TABLET (FP) PO SCH (09:36)
[2016-09-12] MEDS: VALSARTAN 160 MG TABLET (UD) PO SCH (09:36)
[2016-09-12] MEDS: NICOTINE 7 MG/24 HOURS TOPICAL PATCH TD SCH (09:36)
[2016-09-12] MEDS: ISOSORBIDE MONONITRATE 30 MG TAB.SR.24H (FP) PO SCH (09:37)
[2016-09-12] MEDS: HEPARIN NA (PORCINE) 5,000 UNITS/ML 1ML VIAL SQ SCH ×2 (09:37→21:39)
[2016-09-12] MEDS: ASPIRIN COATED 81 MG TABLET.EC PO SCH (09:37)
[2016-09-12] MEDS: amLODIPine BESYLATE 5 MG TABLET (FP) PO SCH (09:37)
--- NOTE | 2016-09-12 09:56 | PN ---
Progress Note, Physician Chief Complaint: Pt lying in bed; no chest pain or dyspnea; no palpitations. History of Present Illness: 56y black man with PM hx of cocaine abuse (reports last use as one week ago) htn , hl, ?cad ?s/p multiple MIs (no stents, had a coronary cath ~4 yrs ago and was reportedly negative), presents with chest pain and sob. Pt endorses a chest sharp tightness/sob since awakening this morning. No associated diarphoresis, n /v, cough, hemoptysis, leg swelling. on exam pt in no distress, his vitals noted to be mild tachycardic, otherwise well-appearing. vitals noted for severe hypertension - [t states he hasnt had any of his meds in ~1 week since moving out of his mother's house and being unable to find his meds. ekg noted for sinus tach but no changes from prior ekg bp noted severely htn - pt given labetalol 20mg for control as pt unclera which meds he is on pts PMD is dr. Purvis but states he has not seen him since last year hypertensive emergency chest pain - will r/o acs, considered PE/dissection, however do not feel his clinical symptoms and presentation c/w with dissection 09/09/16 11:25 trop neg x 1 pt will be placed in observation in cardiac telemetry for management of hypertensive emergency and ACS risk stratefication - Current Medication List Current Medications: Active Medications Albuterol Sulfate (Ventolin Hfa Inhaler -) 2 puff IH Q4H [facility] Last Admin: 09/11/16 17:45 Dose: Not Given Amlodipine Besylate (Norvasc -) 10 mg PO DAILY [facility] Amlodipine Besylate (Norvasc -) 5 mg PO ONCE ONE Stop: 09/12/16 09:56 Aspirin (Ecotrin -) 81 mg PO DAILY [facility] Last Admin: 09/12/16 09:37 Dose: 81 mg Atorvastatin Calcium (Lipitor -) 40 mg PO HS [facility] Last Admin: 09/11/16 22:08 Dose: 40 mg Furosemide (Lasix Injection -) 40 mg IVPB BIDLASIX [facility] Last Admin: 09/12/16 05:38 Dose: 40 mg Heparin Sodium (Porcine) (Heparin -) 5,000 unit SQ BID [facility] Last Admin: 09/12/16 09:37 Dose: 5,000 unit Hydralazine HCl (Apresoline -) 100 mg PO TID [facility] Last Admin: 09/12/16 05:38 Dose: 100 mg Insulin Aspart (Novolog Vial Sliding Scale -) 1 vial SQ ACHS [facility] PRN Reason: Protocol Last Admin: 09/12/16 06:29 Dose: 2 units Isosorbide Mononitrate (Imdur -) 30 mg PO DAILY [facility] Last Admin: 09/12/16 09:37 Dose: 30 mg Nicotine (Nicoderm Patch -) 7 mg TD DAILY [facility] Last Admin: 09/12/16 09:36 Dose: Not Given Pantoprazole Sodium (Protonix -) 20 mg PO DAILY [facility] Last Admin: 09/12/16 09:36 Dose: 20 mg Spironolactone (Aldactone -) 50 mg PO DAILY [facility] Last Admin: 09/12/16 09:35 Dose: 50 mg Valsartan (Diovan -) 320 mg PO DAILY [facility] Last Admin: 09/12/16 09:36 Dose: 320 mg - Objective Vital Signs: Vital Signs Temperature 98.8 F 09/12/16 08:20 Pulse Rate 90 09/12/16 08:20 Respiratory Rate 20 09/12/16 08:20 Blood Pressure 175/109 09/12/16 08:20 O2 Sat by Pulse Oximetry (%) 96 09/12/16 08:00 Constitutional: Yes: Anxious Eyes: Yes: WNL HENT: Yes: WNL Neck: Yes: WNL Cardiovascular: Yes: Regular Rate and Rhythm, S1, S2, S4 Respiratory: Yes: Regular Gastrointestinal: Yes: Soft ...Rectal Exam: Yes: Deferred Genitourinary: No: Anuria Breast(s): Yes: WNL Musculoskeletal: Yes: WNL Extremities: Yes: WNL Edema: No Peripheral Pulses WNL: Yes Integumentary: Yes: WNL Neurological: Yes: WNL Psychiatric: Yes: Other Labs: CBC, BMP 09/10/16 05:35 09/10/16 05:35 INR, PTT INR 1.05 (0.82-1.09) 09/10/16 05:35 Problem List - Problems (1) ASHD (arteriosclerotic heart disease) Code(s): I25.10 - ATHSCL HEART DISEASE OF [place] CORONARY ARTERY W/O ANG PCTRS (2) Chest pain Assessment/Plan: Stress MIBI: no myocardial ischemia; moderate-sized inferior wall infarct; moderately reduced LVEF. atypical presentation. TNI 0.03--0.02 x 2. ECHO: mild-moderately reduced LVEF with regional wall motion abnormalities, severe MR. Control BP and HR. (Would gradually decrease and d/c beta blockers due to active cocaine use, though its use would be beneficial for systolic LV dysfunction, CAD). Code(s): R07.9 - CHEST PAIN, UNSPECIFIED Qualifiers: Qualified Code(s): R07.9 - Chest pain, unspecified (3) Cocaine abuse Assessment/Plan: Pt;s insight is poor. Dextox protocol (also for alcohol; pt has at least 4 beers daily). Code(s): F14.10 - COCAINE ABUSE, UNCOMPLICATED (4) HTN (hypertension) Assessment/Plan: BP remains elevated. Increase amlodipine to 10 mg daily. If BP remains refractory, consider clonidine (which may also aid in lessening effects of drug withdrawal). Code(s): I10 - ESSENTIAL (PRIMARY) HYPERTENSION Qualifiers: Qualified Code(s): I10 - Essential (primary) hypertension (5) Hyperlipidemia Assessment/Plan: Statin; keep LDL cholesterol < 70 mg/dL. Code(s): E78.5 - HYPERLIPIDEMIA, UNSPECIFIED Qualifiers: Qualified Code(s): E78.00 - Pure hypercholesterolemia, unspecified; E78.0 - Pure hypercholesterolemia (6) Nicotine dependence Code(s): F17.200 - NICOTINE DEPENDENCE, UNSPECIFIED, UNCOMPLICATED (7) Uncontrolled type 2 diabetes mellitus Code(s): E11.65 - TYPE 2 DIABETES MELLITUS WITH HYPERGLYCEMIA (8) Alcohol dependence with uncomplicated withdrawal Code(s): F10.230 - ALCOHOL DEPENDENCE WITH WITHDRAWAL, UNCOMPLICATED (9) Acute on chronic systolic (congestive) heart failure Assessment/Plan: ECHO results noted. Stress MIBI: IWMI; no ishcemia. Hx coronary angiogram several years ago at [facility]; pt says no stent was placed. Noncompliant to all medications for at least a week. Restarted all medications; f/u BP and HR serially. Problematic using carvedilol (beneficial for pt's systolic dysfunction, but he is an active cocaine user, which generally contraindicates use of beta blockers) . For stress MIBI. Poor understanding of the risks he is taking with his health. Code(s): I50.23 - ACUTE ON CHRONIC SYSTOLIC (CONGESTIVE) HEART FAILURE
[2016-09-12] MEDS ORDERED: amLODIPine BESYLATE 5 MG TABLET (FP) PO ONE (10:15)
--- NOTE | 2016-09-12 11:04 | PN ---
Progress Note, Physician History of Present Illness: PULMONARY ALERT,NAD,-SOB,-CP - Current Medication List Current Medications: Active Medications Albuterol Sulfate (Ventolin Hfa Inhaler -) 2 puff IH Q4H [facility] Last Admin: 09/11/16 17:45 Dose: Not Given Amlodipine Besylate (Norvasc -) 10 mg PO DAILY [facility] Aspirin (Ecotrin -) 81 mg PO DAILY [facility] Last Admin: 09/12/16 09:37 Dose: 81 mg Atorvastatin Calcium (Lipitor -) 40 mg PO HS [facility] Last Admin: 09/11/16 22:08 Dose: 40 mg Furosemide (Lasix Injection -) 40 mg IVPB BIDLASIX [facility] Last Admin: 09/12/16 05:38 Dose: 40 mg Heparin Sodium (Porcine) (Heparin -) 5,000 unit SQ BID [facility] Last Admin: 09/12/16 09:37 Dose: 5,000 unit Hydralazine HCl (Apresoline -) 100 mg PO TID [facility] Last Admin: 09/12/16 05:38 Dose: 100 mg Insulin Aspart (Novolog Vial Sliding Scale -) 1 vial SQ ACHS [facility] PRN Reason: Protocol Last Admin: 09/12/16 06:29 Dose: 2 units Isosorbide Mononitrate (Imdur -) 30 mg PO DAILY [facility] Last Admin: 09/12/16 09:37 Dose: 30 mg Nicotine (Nicoderm Patch -) 7 mg TD DAILY [facility] Last Admin: 09/12/16 09:36 Dose: Not Given Pantoprazole Sodium (Protonix -) 20 mg PO DAILY [facility] Last Admin: 09/12/16 09:36 Dose: 20 mg Spironolactone (Aldactone -) 50 mg PO DAILY [facility] Last Admin: 09/12/16 09:35 Dose: 50 mg Valsartan (Diovan -) 320 mg PO DAILY [facility] Last Admin: 09/12/16 09:36 Dose: 320 mg - Objective Vital Signs: Vital Signs Temperature 98.8 F 09/12/16 08:20 Pulse Rate 90 09/12/16 08:20 Respiratory Rate 20 09/12/16 08:20 Blood Pressure 175/109 09/12/16 08:20 O2 Sat by Pulse Oximetry (%) 96 09/12/16 08:00 Constitutional: Yes: Well Nourished, Calm Eyes: Yes: WNL HENT: Yes: WNL Neck: Yes: WNL Cardiovascular: Yes: Regular Rate and Rhythm, S1, S2 Respiratory: Yes: Diminished Gastrointestinal: Yes: Normal Bowel Sounds, Soft Extremities: Yes: WNL Edema: Yes Labs: CBC, BMP 09/10/16 05:35 09/10/16 05:35 INR, PTT INR 1.05 (0.82-1.09) 09/10/16 05:35 Problem List - Problems (1) Chest pain Code(s): R07.9 - CHEST PAIN, UNSPECIFIED Qualifiers: Qualified Code(s): R07.9 - Chest pain, unspecified (2) Chest pain at rest Code(s): R07.9 - CHEST PAIN, UNSPECIFIED (3) Cocaine abuse Code(s): F14.10 - COCAINE ABUSE, UNCOMPLICATED (4) Diabetes Code(s): E11.9 - TYPE 2 DIABETES MELLITUS WITHOUT COMPLICATIONS (5) History of myocardial infarction Code(s): I25.2 - OLD MYOCARDIAL INFARCTION (6) Hypertensive urgency Code(s): I16.0 - HYPERTENSIVE URGENCY (7) Shortness of breath Code(s): R06.02 - SHORTNESS OF BREATH (8) ASHD (arteriosclerotic heart disease) Code(s): I25.10 - ATHSCL HEART DISEASE OF [place] CORONARY ARTERY W/O ANG PCTRS Assessment/Plan IMP CHEST PAIN SYNDROME HTN URGENCY SEVERE LV DYSFUNCTION SUBSTANCE ABUSE DM ASTHMA PLAN NASAL O2 ANTI-HYPERTENSIVE MEDS DIURETICS INHALED BRONCHODILATORS PRN DR DOYLE Problem List - Problems (1) Chest pain Code(s): R07.9 - CHEST PAIN, UNSPECIFIED Qualifiers: Chest pain type: unspecified Qualified Code(s): R07.9 - Chest pain, unspecified (2) Chest pain at rest Code(s): R07.9 - CHEST PAIN, UNSPECIFIED (3) Cocaine abuse Code(s): F14.10 - COCAINE ABUSE, UNCOMPLICATED (4) Diabetes Code(s): E11.9 - TYPE 2 DIABETES MELLITUS WITHOUT COMPLICATIONS Qualifiers: Diabetes mellitus type: type 2 Chronic kidney disease stage: stage 2 ( mild) (5) History of myocardial infarction Code(s): I25.2 - OLD MYOCARDIAL INFARCTION (6) Hypertensive urgency Code(s): I16.0 - HYPERTENSIVE URGENCY (7) Shortness of breath Code(s): R06.02 - SHORTNESS OF BREATH (8) ASHD (arteriosclerotic heart disease) Code(s): I25.10 - ATHSCL HEART DISEASE OF [place] CORONARY ARTERY W/O ANG PCTRS
--- NOTE | 2016-09-12 11:42 | PN ---
Physical Exam: SUBJECTIVE: Patient seen and examined in room today. Patient was comfortably sitting up in chair this morning, did not need NC 02. Denies SOB, chest or extremity pain. OBJECTIVE: Vital Signs Period Temp Pulse Resp BP Sys/Caal Pulse Ox Last 24 Hr 97.8 F-98.8 F 88-95 18-20 156-180/103-118 96-100 GENERAL: The patient is awake, alert, and fully oriented, in no acute distress. HEAD: Normal with no signs of trauma. EYES: PERRL, extraocular movements intact, sclera anicteric, conjunctiva clear. No ptosis. ENT: Ears normal, nares patent, oropharynx clear without exudates, moist mucous membranes. NECK: Trachea midline, full range of motion, supple. LUNGS: Breath sounds equal, clear to auscultation bilaterally. Did not appreciate wheezes, crackles, or accessory muscle use. HEART: Regular rate and rhythm, S1, S2 without murmur, rub or gallop. ABDOMEN: Soft, nontender, nondistended, normoactive bowel sounds, no guarding, no rebound, no hepatosplenomegaly, no masses. EXTREMITIES: 2+ posterior tibial pulses, warm, well-perfused, no edema. NEUROLOGICAL: Cranial nerves II through XII grossly intact. Laboratory Results - last 24 hr 09/11/16 09/12/16 22:04 06:26 POC Glucometer 213 235 Active Medications Generic Name Dose Route Start Last Admin Trade Name Freq PRN Reason Stop Dose Admin Albuterol Sulfate 2 puff 09/09/16 13:15 09/11/16 17:45 Ventolin Hfa Inhaler - IH Not Given Q4H [facility] Amlodipine Besylate 10 mg 09/13/16 10:00 Norvasc - PO DAILY [facility] Aspirin 81 mg 09/10/16 10:00 09/12/16 09:37 Ecotrin - PO 81 mg DAILY [facility] Administration Atorvastatin Calcium 40 mg 09/10/16 22:00 09/11/16 22:08 Lipitor - PO 40 mg HS [facility] Administration Furosemide 40 mg 09/10/16 14:00 09/12/16 05:38 Lasix Injection - IVPB 40 mg BIDLASIX [facility] Administration Heparin Sodium (Porcine) 5,000 unit 09/09/16 22:00 09/12/16 09:37 Heparin - SQ 5,000 unit BID [facility] Administration Hydralazine HCl 100 mg 09/10/16 08:15 09/12/16 05:38 Apresoline - PO 100 mg TID [facility] Administration Insulin Aspart 1 vial 09/09/16 16:30 09/12/16 06:29 Novolog Vial Sliding Scale - SQ 2 units ACHS [facility] Administration Protocol Isosorbide Mononitrate 30 mg 09/09/16 13:30 09/12/16 09:37 Imdur - PO 30 mg DAILY [facility] Administration Nicotine 7 mg 09/10/16 10:00 09/12/16 09:36 Nicoderm Patch - TD Not Given DAILY [facility] Pantoprazole Sodium 20 mg 09/10/16 10:00 09/12/16 09:36 Protonix - PO 20 mg DAILY [facility] Administration Spironolactone 50 mg 09/09/16 13:30 09/12/16 09:35 Aldactone - PO 50 mg DAILY [facility] Administration Valsartan 320 mg 09/10/16 10:00 09/12/16 09:36 Diovan - PO 320 mg DAILY [facility] Administration ASSESSMENT/PLAN: This is a 56 y/o M with PMH of HTN, HTN urgency and pneumonia April, MIx3, HLD, NIDDM, asthma, cocaine use- last week, medication non-adherence, who came to the ED with chest pain since 7am. Patient admitted for chest pain r/o ACS, sepsis secondary to possible pneumonia. 1. Chest pain r/o [place]- resolved -pt denies chest pain for past 2 days -Stress test yesterday (09/11/16): moderate intensity fixed defect inferior wall consistent with scar, LVEF 32% -Non diagnostic persantine EKG because of baseline EKG abnormalities 2. Sepsis secondary to possible pneumonia-resolved -Sepsis: white count trended down to 8.3 (09/10), still afebrile today -CXR: negative 3. CHF -ECHO- abnormal LV wall motion, lower IV septal thinning and dyskinesia, focal thickening of R coronary cusp, can't exclude vegetation, severe mitral regurgitation -Continue Lasix 40 IVPB, aldactone 50mg PO 4. HTN urgency -medications have been adjusted: Imdur 30 mg PO daily, Diovan 320 mg PO daily, Norvasc 10mg PO daily, Aldactone 50 mg PO daily, Hydralazine 100 mg PO TID since patient's last BP was 178/118. -Coreg was discontinued bc pt is a cocaine user and BB are contraindicated in users 5. Asthma - continue Ventolin 2 puff q4 -denies SOB currently 6. NIDDM -Insulin sliding scale -Monitor sugars -Last sugar (09/12): 206 7. Alcohol use/Smoking cessation -Utox + for opiates (09/10) -Continue Nicoderm patch- 7 mg TD daily F/E/N -Fluid restrict, Strict I's & O's -Diabetic diet Prophylaxis Heparin 500 BID Visit type - Emergency Visit Emergency Visit: No - New Patient This patient is new to me today: No - Critical Care Critical Care patient: No
--- NOTE | 2016-09-12 13:03 | PN ---
Teaching Attending Note Name of Resident: Ev Toth ATTENDING PHYSICIAN STATEMENT I saw and evaluated the patient. I reviewed the resident's note and discussed the case with the resident. I agree with the resident's findings and plan as documented. SUBJECTIVE: No complaints. OBJECTIVE: Vital Signs Period Temp Pulse Resp BP Sys/Caal Pulse Ox Last 24 Hr 97.8 F-98.8 F 88-95 18-20 156-178/103-118 96-100 HEART: S1S2, RRR LUNGS: Clear ABDOMEN: Soft, non-tender, non-distended, normal BS EXTREMITIES: No edema ASSESSMENT AND PLAN: This is a 56-year-old man with a history of HTN, CAD, NV, hyperlipidemia, type 2 DM, asthma, cocaine and alcohol abuse who presented to the ER with left-sided sharp stabbing chest pain. 1. Chest pain - Monitor on telemetry - Troponins negative - Stress test shows no ischemia, moderate-sized inferior wall infarct, moderately reduced LVEF 2. CAD, history of NV - Continue aspirin, Imdur, Lipitor 3. Acute systolic and diastolic heart failure - Continue Lasix IV, Aldactone, Diovan, Imdur, Hydralazine - Coreg discontinued secondary to cocaine use - Procardia discontinued secondary to reduced EF - Echocardiogram shows mild to moderately reduced LVEF, regional wall motion abnormalities, severe MR - Daily weight - I&O 4. Hypertensive heart disease with chronic diastolic heart failure 5. Hypertensive urgency - Given Labetalol in ER 6. HTN - Continue Hydralazine, Imdur, Diovan, Lasix, Aldactone - Coreg discontinued secondary to cocaine use - Procardia discontinued secondary to reduced EF - Norvasc increased 7. Severe mitral regurgitation 8. Hyperlipidemia - Continue Lipitor 9. Type 2 DM - Glipizide held - Continue Novolog sliding scale 10. Asthma - Continue Albuterol as needed 11. Stage 3 CKD - Stable 12. Cocaine abuse 13. Alcohol dependence - No signs of withdrawal 14. Nicotine dependence - Continue Nicotine patch
[2016-09-12] MEDS ORDERED: ACETAMINOPHEN 325 MG TABLET (FP) PO ONE (14:55)
--- NOTE | 2016-09-12 16:26 | PN ---
Physical Exam: SUBJECTIVE: Patient seen and examined OBJECTIVE: Vital Signs Period Temp Pulse Resp BP Sys/Caal Pulse Ox Last 24 Hr 97.8 F-98.8 F 88-91 18-20 156-178/103-118 96-100 GENERAL: The patient is awake, alert, and fully oriented, in no acute distress. HEAD: Normal with no signs of trauma. EYES: PERRL, extraocular movements intact, sclera anicteric, conjunctiva clear. No ptosis. ENT: Ears normal, nares patent, oropharynx clear without exudates, moist mucous membranes. NECK: Trachea midline, full range of motion, supple. LUNGS: Breath sounds equal, clear to auscultation bilaterally, no wheezes, no crackles, no accessory muscle use. HEART: Regular rate and rhythm, S1, S2 without murmur, rub or gallop. ABDOMEN: Soft, nontender, nondistended, normoactive bowel sounds, no guarding, no rebound, no hepatosplenomegaly, no masses. EXTREMITIES: 2+ pulses, warm, well-perfused, no edema. NEUROLOGICAL: Cranial nerves II through XII grossly intact. Normal speech, gait not observed. PSYCH: Normal mood, normal affect. SKIN: Warm, dry, normal turgor, no rashes or lesions noted Laboratory Results - last 24 hr 09/11/16 09/12/16 09/12/16 22:04 06:26 11:33 POC Glucometer 213 235 146 09/12/16 15:56 POC Glucometer 206 Active Medications Generic Name Dose Route Start Last Admin Trade Name Freq PRN Reason Stop Dose Admin Albuterol Sulfate 2 puff 09/09/16 13:15 09/11/16 17:45 Ventolin Hfa Inhaler - IH Not Given Q4H [facility] Amlodipine Besylate 10 mg 09/13/16 10:00 Norvasc - PO DAILY [facility] Aspirin 81 mg 09/10/16 10:00 09/12/16 09:37 Ecotrin - PO 81 mg DAILY [facility] Administration Atorvastatin Calcium 40 mg 09/10/16 22:00 09/11/16 22:08 Lipitor - PO 40 mg HS [facility] Administration Furosemide 40 mg 09/10/16 14:00 09/12/16 14:57 Lasix Injection - IVPB 40 mg BIDLASIX [facility] Administration Heparin Sodium (Porcine) 5,000 unit 09/09/16 22:00 09/12/16 09:37 Heparin - SQ 5,000 unit BID [facility] Administration Hydralazine HCl 100 mg 09/10/16 08:15 09/12/16 14:56 Apresoline - PO 100 mg TID [facility] Administration Insulin Aspart 1 vial 09/09/16 16:30 09/12/16 11:48 Novolog Vial Sliding Scale - SQ Not Given [facility]CHS [facility] Protocol Isosorbide Mononitrate 30 mg 09/09/16 13:30 09/12/16 09:37 Imdur - PO 30 mg DAILY [facility] Administration Nicotine 7 mg 09/10/16 10:00 09/12/16 09:36 Nicoderm Patch - TD Not Given DAILY [facility] Pantoprazole Sodium 20 mg 09/10/16 10:00 09/12/16 09:36 Protonix - PO 20 mg DAILY [facility] Administration Spironolactone 50 mg 09/09/16 13:30 09/12/16 09:35 Aldactone - PO 50 mg DAILY [facility] Administration Valsartan 320 mg 09/10/16 10:00 09/12/16 09:36 Diovan - PO 320 mg DAILY [facility] Administration ASSESSMENT/PLAN: This is a 56 y/o M with PMH of HTN, HTN urgency and pneumonia April, MIx3, HLD, NIDDM, asthma, cocaine use- last week, medication non-adherence, who came to the ED with chest pain since 7am. Patient admitted for chest pain r/o ACS, sepsis secondary to possible pneumonia. 1. Chest pain r/o PA -Stress test yesterday (09/11/16): moderate intensity fixed defect inferior wall consistent with scar, LVEF 32% -Non diagnostic persantine EKG because of baseline EKG abnormalities 2. Sepsis secondary to possible pneumonia -Sepsis: white count trended down to 8.3 (09/10), still afebrile today -CXR: negative 3. CHF -ECHO- abnormal LV wall motion, lower IV septal thinning and dyskinesia, focal thickening of R coronary cusp, can't exclude vegetation, severe mitral regurgitation -Lasix 40 IVPB, aldactone 50mg PO 4. HTN urgency -medications have been adjusted: Imdur 30 mg PO daily, Diovan 320 mg PO daily, Norvasc 10mg PO daily, Aldactone 50 mg PO daily, Hydralazine 100 mg PO TID since patient's last BP was 178/118. -Coreg was discontinued bc pt is a cocaine user and BB are contraindicated in users 5. Asthma - continue Ventolin 2 puff q4 -denies SOB currently 5. NIDDM -Insulin sliding scale -Monitor sugars 6. Alcohol use/Smoking cessation -Utox + for opiates (09/10) -Nicoderm patch- 7 mg TD daily
[2016-09-12] MEDS: ATORVASTATIN CA 40 MG TABLET (FP) PO SCH (21:38)
[2016-09-12] MEDS: ALBUTEROL SO4 6.7 GM HFA INHALER IH SCH (21:39)
[2016-09-13] MEDS: ALBUTEROL SO4 6.7 GM HFA INHALER IH SCH ×3 (01:15→21:03)
[2016-09-13] MEDS: hydrALAZINE HCL 50 MG TABLET (FP) PO SCH ×3 (06:00→21:03)
[2016-09-13] MEDS: FUROSEMIDE 40 MG/4 ML INJECTABLE VIAL IVPB SCH (06:00)
[2016-09-13] MEDS: INSULIN SLIDING SCALE (NOVOLOG) 1 VIAL SQ SCH ×4 (06:05→21:04)
[2016-09-13 08:54] LABS: ANION GAP 7 (8-16); CALCIUM 9.9 mg/dL (8.5-10.1); CO2 32 mmol/L (21-32); CREATININE 1.5 mg/dL (0.7-1.3); GLUCOSE,RANDOM 160 mg/dL (74-106); MAGNESIUM 2.1 mg/dL (1.8-2.4); PHOSPHOROUS 3.1 mg/dL (2.5-4.9)
--- NOTE | 2016-09-13 08:54 | PN ---
Progress Note, Physician Chief Complaint: Cardiology for Tori TELE: NSR, PVCs and couplets Stress MIBI: EF 32%, inferior scar, no ischemia Echo: TDS, Mild to mod decrease LV function. Severe MR History of Present Illness: BP still elevated - Current Medication List Current Medications: Active Medications Albuterol Sulfate (Ventolin Hfa Inhaler -) 2 puff IH Q4H [facility] Last Admin: 09/13/16 05:58 Dose: Not Given Amlodipine Besylate (Norvasc -) 10 mg PO DAILY [facility] Aspirin (Ecotrin -) 81 mg PO DAILY [facility] Last Admin: 09/12/16 09:37 Dose: 81 mg Atorvastatin Calcium (Lipitor -) 40 mg PO HS [facility] Last Admin: 09/12/16 21:38 Dose: 40 mg Furosemide (Lasix Injection -) 40 mg IVPB BIDLASIX [facility] Last Admin: 09/13/16 06:00 Dose: 40 mg Heparin Sodium (Porcine) (Heparin -) 5,000 unit SQ BID [facility] Last Admin: 09/12/16 21:39 Dose: 5,000 unit Hydralazine HCl (Apresoline -) 100 mg PO TID [facility] Last Admin: 09/13/16 06:00 Dose: 100 mg Insulin Aspart (Novolog Vial Sliding Scale -) 1 vial SQ ACHS [facility] PRN Reason: Protocol Last Admin: 09/13/16 06:05 Dose: 2 units Isosorbide Mononitrate (Imdur -) 30 mg PO DAILY [facility] Last Admin: 09/12/16 09:37 Dose: 30 mg Nicotine (Nicoderm Patch -) 7 mg TD DAILY [facility] Last Admin: 09/12/16 09:36 Dose: Not Given Pantoprazole Sodium (Protonix -) 20 mg PO DAILY [facility] Last Admin: 09/12/16 09:36 Dose: 20 mg Spironolactone (Aldactone -) 50 mg PO DAILY [facility] Last Admin: 09/12/16 09:35 Dose: 50 mg Valsartan (Diovan -) 320 mg PO DAILY [facility] Last Admin: 09/12/16 09:36 Dose: 320 mg - Objective Vital Signs: Vital Signs Temperature 98.4 F 09/13/16 06:23 Pulse Rate 91 H 09/13/16 06:23 Respiratory Rate 19 09/13/16 06:23 Blood Pressure 164/118 09/13/16 06:23 O2 Sat by Pulse Oximetry (%) 94 L 09/12/16 22:00 Constitutional: Yes: No Distress, Calm Eyes: Yes: Conjunctiva Clear HENT: Yes: Atraumatic Cardiovascular: Yes: Regular Rate and Rhythm Respiratory: Yes: CTA Bilaterally Gastrointestinal: Yes: Soft Edema: No Neurological: Yes: Alert, Oriented ...Motor Strength: WNL Labs: CBC, BMP 09/10/16 05:35 INR, PTT INR 1.05 (0.82-1.09) 09/10/16 05:35 Microbiology 09/09/16 13:55 Blood - Peripheral Venous Blood Culture - Preliminary NO GROWTH OBTAINED AFTER 72 HOURS, INCUBATION TO CONTINUE FOR 2 DAYS. 09/09/16 13:50 Blood - Peripheral Venous Blood Culture - Preliminary NO GROWTH OBTAINED AFTER 72 HOURS, INCUBATION TO CONTINUE FOR 2 DAYS. Selected Entries 09/13/16 09/13/16 03:00 06:23 Blood Pressure 138/80 164/118 Laboratory Tests 09/10/16 09/13/16 07:00 08:10 Sodium Pending Potassium Pending Chloride Pending Carbon Dioxide Pending Anion Gap Pending BUN Pending Creatinine Pending Opiates Screen Positive Cocaine Screen Positive - ....Imaging EKG: Image Reviewed Assessment/Plan Problem List - Problems (1) ASHD (arteriosclerotic heart disease) Code(s): I25.10 - ATHSCL HEART DISEASE OF [place] CORONARY ARTERY W/O ANG PCTRS (2) Chest pain Assessment/Plan: Stress MIBI: no myocardial ischemia; moderate-sized inferior wall infarct; moderately reduced LVEF. Atypical presentation. TNI 0.03--0.02 x 2. ECHO: mild-moderately reduced LVEF with regional wall motion abnormalities, severe MR. Control BP and HR. MR severity should be reassessed when BP well controlled. Code(s): R07.9 - CHEST PAIN, UNSPECIFIED Qualifiers: Qualified Code(s): R07.9 - Chest pain, unspecified (3) Cocaine abuse Assessment/Plan: Pt;s insight is poor. Dextox protocol (also for alcohol; pt has at least 4 beers daily). No beta blockers Code(s): F14.10 - COCAINE ABUSE, UNCOMPLICATED (4) HTN (hypertension) Assessment/Plan: BP remains elevated: d/c norvasc and switch to Procardia XL 30mg BID for smoother control Code(s): I10 - ESSENTIAL (PRIMARY) HYPERTENSION Qualifiers: Qualified Code(s): I10 - Essential (primary) hypertension (5) Hyperlipidemia Assessment/Plan: Statin; keep LDL cholesterol < 70 mg/dL. Code(s): E78.5 - HYPERLIPIDEMIA, UNSPECIFIED Qualifiers: Qualified Code(s): E78.00 - Pure hypercholesterolemia, unspecified; E78.0 - Pure hypercholesterolemia (6) Nicotine dependence Code(s): F17.200 - NICOTINE DEPENDENCE, UNSPECIFIED, UNCOMPLICATED (7) Uncontrolled type 2 diabetes mellitus Code(s): E11.65 - TYPE 2 DIABETES MELLITUS WITH HYPERGLYCEMIA (8) Alcohol dependence with uncomplicated withdrawal Code(s): F10.230 - ALCOHOL DEPENDENCE WITH WITHDRAWAL, UNCOMPLICATED (9) Acute on chronic systolic (congestive) heart failure Assessment/Plan: ECHO results noted. Stress MIBI: IWMI; no ishcemia. Hx coronary angiogram several years ago at [facility]; pt says no stent was placed. Noncompliant to all medications for at least a week. Poor understanding of the risks he is taking with his health. Code(s): I50.23 - ACUTE ON CHRONIC SYSTOLIC (CONGESTIVE) HEART FAILURE
[2016-09-13] MEDS: SPIRONOLACTONE 25 MG TABLET (FP) PO SCH (09:23)
[2016-09-13] MEDS: ASPIRIN COATED 81 MG TABLET.EC PO SCH (09:23)
[2016-09-13] MEDS: NIFEdipine E.R. 30 MG TABLET (FP) PO SCH ×2 (09:23→21:03)
[2016-09-13] MEDS: ISOSORBIDE MONONITRATE 30 MG TAB.SR.24H (FP) PO SCH (09:24)
[2016-09-13] MEDS: PANTOPRAZOLE 20 MG TABLET (FP) PO SCH (09:26)
[2016-09-13] MEDS: VALSARTAN 160 MG TABLET (UD) PO SCH (09:26)
[2016-09-13] MEDS ORDERED: amLODIPine BESYLATE 10 MG TABLET (FP) PO SCH (10:00)
[2016-09-13] MEDS: HEPARIN NA (PORCINE) 5,000 UNITS/ML 1ML VIAL SQ SCH ×2 (10:47→21:04)
--- NOTE | 2016-09-13 11:53 | PN ---
Physical Exam: SUBJECTIVE: Patient seen and examined at bedside. Pt in good spirits, denies SOB or chest pain. OBJECTIVE: Vital Signs Period Temp Pulse Resp BP Sys/Caal Pulse Ox Last 24 Hr 97.8 F-98.4 F 82-100 18-20 138-183/80-118 94-98 GENERAL: The patient is awake, alert, and fully oriented, in no acute distress. HEAD: Normal with no signs of trauma. EYES: PERRL, extraocular movements intact, sclera anicteric, conjunctiva clear. No ptosis. ENT: Ears normal, nares patent, oropharynx clear without exudates, moist mucous membranes. NECK: Trachea midline, full range of motion, supple. LUNGS: Breath sounds equal, clear to auscultation bilaterally, no wheezes, no crackles, no accessory muscle use. HEART: Regular rate and rhythm, S1, S2 without murmur, rub or gallop. ABDOMEN: Soft, nontender, nondistended, normoactive bowel sounds, no guarding, no rebound EXTREMITIES: 2+ posterior tibial pulses, warm, well-perfused, no edema. NEUROLOGICAL: Cranial nerves II through XII grossly intact Laboratory Results - last 24 hr 09/12/16 09/12/16 09/13/16 15:56 21:34 06:03 Sodium Potassium Chloride Carbon Dioxide Anion Gap BUN Creatinine POC Glucometer 206 127 215 Random Glucose Calcium Phosphorus Magnesium 09/13/16 08:10 Sodium 137 Potassium 3.7 Chloride 98 Carbon Dioxide 32 D Anion Gap 7 L BUN 17 Creatinine 1.5 H POC Glucometer Random Glucose 160 H Calcium 9.9 Phosphorus 3.1 Magnesium 2.1 Active Medications Generic Name Dose Route Start Last Admin Trade Name Markyq PRN Reason Stop Dose Admin Albuterol Sulfate 2 puff 09/09/16 13:15 09/13/16 05:58 Ventolin Hfa Inhaler - IH Not Given Q4H [facility] Aspirin 81 mg 09/10/16 10:00 09/13/16 09:23 Ecotrin - PO 81 mg DAILY [facility] Administration Atorvastatin Calcium 40 mg 09/10/16 22:00 09/12/16 21:38 Lipitor - PO 40 mg HS [facility] Administration Furosemide 40 mg 09/10/16 14:00 09/13/16 06:00 Lasix Injection - IVPB 40 mg BIDLASIX [facility] Administration Glipizide 5 mg 09/14/16 07:00 Glucotrol Xl - PO DAILY@0700 [facility] Heparin Sodium (Porcine) 5,000 unit 09/09/16 22:00 09/12/16 21:39 Heparin - SQ 5,000 unit BID [facility] Administration Hydralazine HCl 100 mg 09/10/16 08:15 09/13/16 06:00 Apresoline - PO 100 mg TID [facility] Administration Insulin Aspart 1 vial 09/09/16 16:30 09/13/16 06:05 Novolog Vial Sliding Scale - SQ 2 units ACHS [facility] Administration Protocol Isosorbide Mononitrate 30 mg 09/09/16 13:30 09/13/16 09:24 Imdur - PO 30 mg DAILY [facility] Administration Nicotine 7 mg 09/10/16 10:00 09/12/16 09:36 Nicoderm Patch - TD Not Given DAILY [facility] Nifedipine 30 mg 09/13/16 10:00 09/13/16 09:23 Procardia Xl - PO 30 mg BID [facility] Administration Pantoprazole Sodium 20 mg 09/10/16 10:00 09/13/16 09:26 Protonix - PO 20 mg DAILY [facility] Administration Spironolactone 50 mg 09/09/16 13:30 09/13/16 09:23 Aldactone - PO 50 mg DAILY [facility] Administration Valsartan 320 mg 09/10/16 10:00 09/13/16 09:26 Diovan - PO 320 mg DAILY [facility] Administration ASSESSMENT/PLAN: This is a 56 y/o M with PMH of HTN, HTN urgency and pneumonia April,, HLD, NIDDM, asthma, cocaine use, medication non-adherence, who came to the ED with chest pain. Patient admitted for chest pain r/o ACS, sepsis secondary to possible pneumonia. 1. HTN urgency -medications were adjusted yesterday: Imdur 30 mg PO daily, Diovan 320 mg PO daily, Norvasc 10mg PO daily, Aldactone 50 mg PO daily, Hydralazine 100 mg PO TID -Coreg was discontinued bc pt is a cocaine user and BB are contraindicated in users -When systolic BP < 160, can work on d/c planning 2. CHF -Lasix 40mg PO once daily (changed from Lasix 40 IVPB BID), aldactone 50mg PO -Will monitor bicarb level, since we are diuresing, will monitor electrolytes 3. NIDDM -Insulin sliding scale for added coverage -Resumed glipizide XL 5mg PO daily (home medication) -Monitor blood sugar levels, assess need for continued sliding scale 4. Chest pain r/o MT- resolved -pt denies chest pain for past 3 days 5. Sepsis secondary to possible pneumonia-resolved -afebrile for more than 48 hours 6. Asthma - continue Ventolin 2 puff q4 -denies SOB currently -hasn't required supplemental 02 7. Alcohol use/Smoking cessation -Continue Nicoderm patch- 7 mg TD daily F/E/N -Strict I's & O's -Limit fluids d/t CHF -Diabetic diet Prophylaxis Heparin 500mg BID Visit type - Emergency Visit Emergency Visit: No - New Patient This patient is new to me today: No - Critical Care Critical Care patient: No
[2016-09-13] MEDS: NICOTINE 7 MG/24 HOURS TOPICAL PATCH TD SCH (16:46)
--- NOTE | 2016-09-13 16:50 | PN ---
Teaching Attending Note Name of Resident: Ev Toth ATTENDING PHYSICIAN STATEMENT I saw and evaluated the patient. I reviewed the resident's note and discussed the case with the resident. I agree with the resident's findings and plan as documented. SUBJECTIVE:currently asymptomatic. states he has no sx when his BP is elevated. typically he runs systolic 140's. claims medication compliance except for the week prior to admission as he was moving. denies CP, SOB, fever, chills, blurred vision, HURD, cough, orthopnea OBJECTIVE: Last Vital Signs Temp Pulse Resp BP Pulse Ox 98.3 F 91 H 18 172/96 98 09/13/16 14:30 09/13/16 14:30 09/13/16 14:30 09/13/16 14:30 09/13/16 10:00 General NAD CV S1 S2 RRR no murmur/rub/gallop Lungs CTA B/L no wheezing/rales/rhonchi Extremities no pedal edema ASSESSMENT AND PLAN: 56-year-old man with a history of HTN, CAD, [place], hyperlipidemia, type 2 DM, asthma, cocaine and alcohol abuse who presented to the ER with left-sided sharp stabbing chest pain. 1. Chest pain- CP free. troponins neg x4. stress test with no ischemia. Continue aspirin, Imdur, Lipitor 2. HTN urgency- improved but remains above goal. medications adjusted this AM by cardiology. switched norvasc to procardia. will cont to monitor. 3. Acute systolic and diastolic heart failure- no signs of volume overload. slight uptrend in kidney function likely due to lasix. appears to likely becoming dehydrated with uptrend in Co2. will transition lasix from IV to po. monitor fluid intake. daily weight. 4. Hypertensive heart disease with chronic diastolic heart failure 5. Severe mitral regurgitation 6. Hyperlipidemia- Continue Lipitor 7. Type 2 DM- A1c 5.9. re-start glipizide. cont iss 8. Asthma- Continue Albuterol as needed 9. Stage 3 CKD- Stable 10. Continuous polysusbtance abuse- no signs of withdrawal. does not want inpatient rehab. avoid beta blockers due to cocaine use. cont nicotine patch 11. DVT ppx- hep sq
[2016-09-13] MEDS ORDERED: ACETAMINOPHEN 325 MG TABLET (FP) ONE (17:18)
[2016-09-13] MEDS ORDERED: ACETAMINOPHEN 325 MG TABLET (FP) PO PRN (18:15)
[2016-09-13] MEDS: ATORVASTATIN CA 40 MG TABLET (FP) PO SCH (21:04)
[2016-09-14] MEDS: ALBUTEROL SO4 6.7 GM HFA INHALER IH SCH ×6 (01:30→22:05)
[2016-09-14] MEDS: INSULIN SLIDING SCALE (NOVOLOG) 1 VIAL SQ SCH ×4 (06:11→22:05)
[2016-09-14] MEDS: hydrALAZINE HCL 50 MG TABLET (FP) PO SCH ×3 (06:11→22:05)
[2016-09-14] MEDS: glipiZIDE-XL 5 MG TAB.ER.24 PO SCH (06:11)
[2016-09-14 08:43] LABS: ANION GAP 9 (8-16); CALCIUM 9.3 mg/dL (8.5-10.1); CO2 27 mmol/L (21-32); CREATININE 1.2 mg/dL (0.7-1.3); GLUCOSE,RANDOM 205 mg/dL (74-106)
--- NOTE | 2016-09-14 09:12 | PN ---
Progress Note, Physician Chief Complaint: Coverage for [employer]: no complaints TELE: NSR w/ occasional PVCs BP trend slight improvement on Procardia XL 30 bid Will titrate today - Current Medication List Current Medications: Active Medications Acetaminophen (Tylenol -) 650 mg PO Q4H PRN PRN Reason: FEVER OR PAIN Albuterol Sulfate (Ventolin Hfa Inhaler -) 2 puff IH Q4H [facility] Last Admin: 09/14/16 05:27 Dose: Not Given Aspirin (Ecotrin -) 81 mg PO DAILY [facility] Last Admin: 09/13/16 09:23 Dose: 81 mg Atorvastatin Calcium (Lipitor -) 40 mg PO HS [facility] Last Admin: 09/13/16 21:04 Dose: 40 mg Furosemide (Lasix -) 40 mg PO DAILY [facility] Glipizide (Glucotrol Xl -) 5 mg PO DAILY@0700 [facility] Last Admin: 09/14/16 06:11 Dose: 5 mg Heparin Sodium (Porcine) (Heparin -) 5,000 unit SQ BID [facility] Last Admin: 09/13/16 21:04 Dose: 5,000 unit Hydralazine HCl (Apresoline -) 100 mg PO TID [facility] Last Admin: 09/14/16 06:11 Dose: 100 mg Insulin Aspart (Novolog Vial Sliding Scale -) 1 vial SQ ACHS [facility] PRN Reason: Protocol Last Admin: 09/14/16 06:11 Dose: 2 units Isosorbide Mononitrate (Imdur -) 30 mg PO DAILY [facility] Last Admin: 09/13/16 09:24 Dose: 30 mg Nicotine (Nicoderm Patch -) 7 mg TD DAILY [facility] Last Admin: 09/13/16 16:46 Dose: Not Given Nifedipine (Procardia Xl -) 30 mg PO BID [facility] Last Admin: 09/13/16 21:03 Dose: 30 mg Pantoprazole Sodium (Protonix -) 20 mg PO DAILY [facility] Last Admin: 09/13/16 09:26 Dose: 20 mg Spironolactone (Aldactone -) 50 mg PO DAILY [facility] Last Admin: 09/13/16 09:23 Dose: 50 mg Valsartan (Diovan -) 320 mg PO DAILY [facility] Last Admin: 09/13/16 09:26 Dose: 320 mg - Objective Vital Signs: Vital Signs Temperature 98.1 F 09/14/16 06:00 Pulse Rate 86 09/14/16 06:00 Respiratory Rate 20 09/14/16 06:00 Blood Pressure 159/94 09/14/16 06:00 O2 Sat by Pulse Oximetry (%) 96 09/13/16 22:00 Constitutional: Yes: No Distress, Calm Eyes: Yes: Conjunctiva Clear, EOM Intact HENT: Yes: WNL Cardiovascular: Yes: Regular Rate and Rhythm Respiratory: Yes: CTA Bilaterally Gastrointestinal: Yes: Soft Edema: No Neurological: Yes: Alert, Oriented ...Motor Strength: WNL Psychiatric: Yes: WNL Labs: CBC, BMP 09/10/16 05:35 09/14/16 05:50 INR, PTT INR 1.05 (0.82-1.09) 09/10/16 05:35 Laboratory Tests 09/14/16 05:50 Sodium 136 Potassium 3.9 BUN 21 H D Creatinine 1.2 Calcium 9.3 - ....Imaging EKG: Image Reviewed Assessment/Plan Assessment/Plan Problem List - Problems (1) ASHD (arteriosclerotic heart disease) Code(s): I25.10 - ATHSCL HEART DISEASE OF [place] CORONARY ARTERY W/O ANG PCTRS (2) Chest pain Assessment/Plan: Stress MIBI: no myocardial ischemia; moderate-sized inferior wall infarct; moderately reduced LVEF. Atypical presentation. TNI 0.03--0.02 x 2. ECHO: mild-moderately reduced LVEF with regional wall motion abnormalities, severe MR. MR severity should be reassessed when BP well controlled. Code(s): R07.9 - CHEST PAIN, UNSPECIFIED Qualifiers: Qualified Code(s): R07.9 - Chest pain, unspecified (3) Cocaine abuse Assessment/Plan: Pt;s insight is poor. Dextox protocol (also for alcohol; pt has at least 4 beers daily). No beta blockers Have explained to him that continued use can lead to [place], CVA, aortic dissection and . Code(s): F14.10 - COCAINE ABUSE, UNCOMPLICATED (4) HTN (hypertension) Assessment/Plan: BP slightly better, but still above goal. Will titrate Procardia XL to 60mg BID. Code(s): I10 - ESSENTIAL (PRIMARY) HYPERTENSION Qualifiers: Qualified Code(s): I10 - Essential (primary) hypertension (5) Hyperlipidemia Assessment/Plan: Statin; keep LDL cholesterol < 70 mg/dL. Code(s): E78.5 - HYPERLIPIDEMIA, UNSPECIFIED Qualifiers: Qualified Code(s): E78.00 - Pure hypercholesterolemia, unspecified; E78.0 - Pure hypercholesterolemia (6) Nicotine dependence Code(s): F17.200 - NICOTINE DEPENDENCE, UNSPECIFIED, UNCOMPLICATED (7) Uncontrolled type 2 diabetes mellitus Code(s): E11.65 - TYPE 2 DIABETES MELLITUS WITH HYPERGLYCEMIA (8) Alcohol dependence with uncomplicated withdrawal Code(s): F10.230 - ALCOHOL DEPENDENCE WITH WITHDRAWAL, UNCOMPLICATED (9) Acute on chronic systolic (congestive) heart failure Assessment/Plan: ECHO results noted. Stress MIBI: IWMI; no ishcemia. Hx coronary angiogram several years ago at [facility]; pt says no stent was placed. Code(s): I50.23 - ACUTE ON CHRONIC SYSTOLIC (CONGESTIVE) HEART FAILURE
[2016-09-14] MEDS: VALSARTAN 160 MG TABLET (UD) PO SCH (09:44)
[2016-09-14] MEDS: SPIRONOLACTONE 25 MG TABLET (FP) PO SCH (09:45)
[2016-09-14] MEDS: ISOSORBIDE MONONITRATE 30 MG TAB.SR.24H (FP) PO SCH (09:45)
[2016-09-14] MEDS: ASPIRIN COATED 81 MG TABLET.EC PO SCH (09:45)
[2016-09-14] MEDS: FUROSEMIDE 40 MG TABLET (FP) PO SCH (09:46)
[2016-09-14] MEDS: NICOTINE 7 MG/24 HOURS TOPICAL PATCH TD SCH (09:46)
[2016-09-14] MEDS: PANTOPRAZOLE 20 MG TABLET (FP) PO SCH (09:46)
[2016-09-14] MEDS: NIFEdipine E.R 60 MG TABLET (UD) PO SCH ×2 (09:46→22:05)
[2016-09-14] MEDS: HEPARIN NA (PORCINE) 5,000 UNITS/ML 1ML VIAL SQ SCH ×2 (09:46→22:04)
--- NOTE | 2016-09-14 12:26 | PN ---
Progress Note (short form) - Note Progress Note: asymptomatic. denies CP, SOB, fever, chills, N/V/C/D, blurred vision, tinnitus Current Medications Generic Name Dose Route Start Last Admin Trade Name Rody PRN Reason Stop Dose Admin Acetaminophen 650 mg 09/13/16 18:15 Tylenol - PO Q4H PRN FEVER OR PAIN Albuterol Sulfate 2 puff 09/09/16 13:15 09/14/16 09:42 Ventolin Hfa Inhaler - IH Not Given Q4H [facility] Aspirin 81 mg 09/10/16 10:00 09/14/16 09:45 Ecotrin - PO 81 mg DAILY [facility] Administration Atorvastatin Calcium 40 mg 09/10/16 22:00 09/13/16 21:04 Lipitor - PO 40 mg HS [facility] Administration Furosemide 40 mg 09/14/16 10:00 09/14/16 09:46 Lasix - PO 40 mg DAILY [facility] Administration Glipizide 5 mg 09/14/16 07:00 09/14/16 06:11 Glucotrol Xl - PO 5 mg DAILY@0700 [facility] Administration Heparin Sodium (Porcine) 5,000 unit 09/09/16 22:00 09/14/16 09:46 Heparin - SQ 5,000 unit BID [facility] Administration Hydralazine HCl 100 mg 09/10/16 08:15 09/14/16 06:11 Apresoline - PO 100 mg TID [facility] Administration Insulin Aspart 1 vial 09/09/16 16:30 09/14/16 11:52 Novolog Vial Sliding Scale - SQ Not Given ACHS [facility] Protocol Isosorbide Mononitrate 30 mg 09/09/16 13:30 09/14/16 09:45 Imdur - PO 30 mg DAILY [facility] Administration Nicotine 7 mg 09/10/16 10:00 09/14/16 09:46 Nicoderm Patch - TD Not Given DAILY [facility] Nifedipine 60 mg 09/14/16 10:00 09/14/16 09:46 Procardia Xl - PO 60 mg BID [facility] Administration Pantoprazole Sodium 20 mg 09/10/16 10:00 09/14/16 09:46 Protonix - PO 20 mg DAILY [facility] Administration Spironolactone 50 mg 09/09/16 13:30 09/14/16 09:45 Aldactone - PO 50 mg DAILY [facility] Administration Valsartan 320 mg 09/10/16 10:00 09/14/16 09:44 Diovan - PO 320 mg DAILY [facility] Administration Last Vital Signs Temp Pulse Resp BP Pulse Ox 98.2 F 83 20 152/98 95 09/14/16 10:00 09/14/16 10:00 09/14/16 10:00 09/14/16 10:00 09/14/16 10:00 General NAD CV S1 S2 RRR no murmur/rub/gallop Lungs CTA B/L no wheezing/rales/rhonchi Extremities no pedal edema CMP Sodium 136 mmol/L (136-145) 09/14/16 05:50 Potassium 3.9 mmol/L (3.5-5.1) 09/14/16 05:50 Chloride 100 mmol/L (98-107) 09/14/16 05:50 Carbon Dioxide 27 mmol/L (21-32) 09/14/16 05:50 Anion Gap 9 (8-16) 09/14/16 05:50 BUN 21 mg/dL (7-18) H D 09/14/16 05:50 Creatinine 1.2 mg/dL (0.7-1.3) 09/14/16 05:50 Creat Clearance w eGFR 52.62 (>60) 09/10/16 05:35 Calcium 9.3 mg/dL (8.5-10.1) 09/14/16 05:50 Total Bilirubin 0.6 mg/dL (0.2-1.0) 09/10/16 05:35 AST 33 U/L (15-37) D 09/10/16 05:35 ALT 41 U/L (12-78) 09/10/16 05:35 Alkaline Phosphatase 131 U/L (45-117) H 09/10/16 05:35 Total Protein 6.6 g/dl (6.4-8.2) 09/10/16 05:35 Albumin 3.0 g/dl (3.4-5.0) L 09/10/16 05:35 ASSESSMENT AND PLAN: 56-year-old man with a history of HTN, CAD, [place], hyperlipidemia, type 2 DM, asthma, cocaine and alcohol abuse who presented to the ER with left-sided sharp stabbing chest pain. 1. Chest pain- CP free. troponins neg x4. stress test with no ischemia. but mod inferior infarcted area. d/w cardio and pt may need cardiac catheterization, will await for primary bi data architect to evaluate and determine if required at this time. concern as pt is not compliant with medications and drug use. Continue aspirin, Imdur, Lipitor 2. HTN urgency- improved but remains above goal. procardia increased to 60mg BID. will monitor. increase as needed. 3. Acute systolic and diastolic heart failure- clinically euvolemic. on lasix po. monitor fluid intake. daily weight. 4. Hypertensive heart disease with chronic diastolic heart failure 5. Severe mitral regurgitation 6. Hyperlipidemia- Continue Lipitor 7. Type 2 DM- A1c 5.9. on glipizide. cont iss 8. Asthma- Continue Albuterol as needed 9. Stage 3 CKD- Stable 10. Continuous polysusbtance abuse- no signs of withdrawal. counseled on need for drug abstinence. explained risks of cocaine use with HTN and cardiac disease , and interaction with required medications. counseled on need for drug cessation. does not want inpatient rehab. avoid beta blockers due to cocaine use. cont nicotine patch 11. DVT ppx- hep sq 12. d/c planning awaiting cardio evaluation and possibility of transfer for cardiac cath vs home with outpatient follow up Visit type - Emergency Visit Emergency Visit: Yes ED Registration Date: 09/09/16 Care time: The patient presented to the Emergency Department on the above date and was hospitalized for further evaluation of their emergent condition. - New Patient This patient is new to me today: No - Critical Care Critical Care patient: No - Discharge Referral Referred to [facility] Med [facility].C.: No
[2016-09-14] MEDS: ATORVASTATIN CA 40 MG TABLET (FP) PO SCH (22:05)
[2016-09-15 05:33] VITALS: TEMP 98.1
[2016-09-15] MEDS: INSULIN SLIDING SCALE (NOVOLOG) 1 VIAL SQ SCH ×2 (06:41→12:47)
[2016-09-15] MEDS: glipiZIDE-XL 5 MG TAB.ER.24 PO SCH (06:41)
[2016-09-15] MEDS: hydrALAZINE HCL 50 MG TABLET (FP) PO SCH ×2 (06:41→14:33)
[2016-09-15 07:58] VITALS: BP 140/96; PULSE 87
[2016-09-15] MEDS ORDERED: ALBUTEROL SO4 6.7 GM HFA INHALER IH PRN (09:15)
[2016-09-15] MEDS: FUROSEMIDE 40 MG TABLET (FP) PO SCH (09:45)
[2016-09-15] MEDS: ASPIRIN COATED 81 MG TABLET.EC PO SCH (09:45)
[2016-09-15] MEDS: HEPARIN NA (PORCINE) 5,000 UNITS/ML 1ML VIAL SQ SCH (09:45)
[2016-09-15] MEDS: PANTOPRAZOLE 20 MG TABLET (FP) PO SCH (09:45)
[2016-09-15] MEDS: NIFEdipine E.R 60 MG TABLET (UD) PO SCH (09:45)
[2016-09-15] MEDS: NICOTINE 7 MG/24 HOURS TOPICAL PATCH TD SCH (09:45)
[2016-09-15] MEDS: ISOSORBIDE MONONITRATE 30 MG TAB.SR.24H (FP) PO SCH (09:46)
[2016-09-15] MEDS: SPIRONOLACTONE 25 MG TABLET (FP) PO SCH (09:46)
[2016-09-15] MEDS: VALSARTAN 160 MG TABLET (UD) PO SCH (09:46)
--- NOTE | 2016-09-15 12:36 | PN ---
Progress Note, Physician History of Present Illness: 56y M hx of htn, hl, cad s/p multiple MIs (no stetnts, last cath ~4 yrs ago and was negative), cocaine use (last use last week) presents with chest pain and sob. Pt endorses a chest sharp tightness/sob since awakening this morning. No associated diarphoesis, n/v, cough, hemoptysis, leg swelling. on exam pt in no distress, his vitals noted to be mild tachycardic, otherwise well apeparing. vitals noted for severe hypertension - [t states he hasnt had any of his meds in ~1 week since moving out of his house and being unabl to find his meds. ekg noted for sinus tach but no changes from prior ekg bp noted severely htn - pt given labetalol 20mg for control as pt unclera which meds he is on pts PMD is dr. Matthew but states he has not seen him since last year hypertensive emergency chest pain - will r/o acs, considered PE/dissection, however do not feel his clnical symptoms and presentation c/w with dissection 09/09/16 11:25 trop neg x 1 pt will be placed in observation in cardiac telemetry for management of hypertensive emergency and ACS risk stratefication - Current Medication List Current Medications: Active Medications Acetaminophen (Tylenol -) 650 mg PO Q4H PRN PRN Reason: FEVER OR PAIN Albuterol Sulfate (Ventolin Hfa Inhaler -) 2 puff IH Q4H PRN PRN Reason: WHEEZING Aspirin (Ecotrin -) 81 mg PO DAILY [facility] Last Admin: 09/15/16 09:45 Dose: 81 mg Atorvastatin Calcium (Lipitor -) 40 mg PO HS [facility] Last Admin: 09/14/16 22:05 Dose: 40 mg Furosemide (Lasix -) 40 mg PO DAILY [facility] Last Admin: 09/15/16 09:45 Dose: 40 mg Glipizide (Glucotrol Xl -) 5 mg PO DAILY@0700 [facility] Last Admin: 09/15/16 06:41 Dose: 5 mg Heparin Sodium (Porcine) (Heparin -) 5,000 unit SQ BID [facility] Last Admin: 09/15/16 09:45 Dose: 5,000 unit Hydralazine HCl (Apresoline -) 100 mg PO TID [facility] Last Admin: 09/15/16 06:41 Dose: 100 mg Insulin Aspart (Novolog Vial Sliding Scale -) 1 vial SQ ACHS [facility] PRN Reason: Protocol Last Admin: 09/15/16 06:41 Dose: 2 units Isosorbide Mononitrate (Imdur -) 30 mg PO DAILY [facility] Last Admin: 09/15/16 09:46 Dose: 30 mg Nicotine (Nicoderm Patch -) 7 mg TD DAILY [facility] Last Admin: 09/15/16 09:45 Dose: 7 mg Nifedipine (Procardia Xl -) 60 mg PO BID [facility] Last Admin: 09/15/16 09:45 Dose: 60 mg Pantoprazole Sodium (Protonix -) 20 mg PO DAILY [facility] Last Admin: 09/15/16 09:45 Dose: 20 mg Spironolactone (Aldactone -) 50 mg PO DAILY [facility] Last Admin: 09/15/16 09:46 Dose: 50 mg Valsartan (Diovan -) 320 mg PO DAILY [facility] Last Admin: 09/15/16 09:46 Dose: 320 mg - Objective Vital Signs: Vital Signs Temperature 98.1 F 09/15/16 07:56 Pulse Rate 87 09/15/16 07:56 Respiratory Rate 20 09/15/16 07:58 Blood Pressure 140/96 09/15/16 07:56 O2 Sat by Pulse Oximetry (%) 98 09/15/16 07:58 Eyes: Yes: WNL, Conjunctiva Clear, EOM Intact HENT: Yes: WNL, Atraumatic, Normocephalic Neck: Yes: WNL, Supple, Trachea Midline Cardiovascular: Yes: WNL, Regular Rate and Rhythm Respiratory: Yes: WNL, Regular, CTA Bilaterally Gastrointestinal: Yes: WNL, Normal Bowel Sounds Genitourinary: Yes: WNL Musculoskeletal: Yes: WNL Extremities: Yes: WNL Edema: No Integumentary: Yes: WNL Neurological: Yes: WNL, Alert, Oriented ...Motor Strength: WNL Psychiatric: Yes: WNL Labs: CBC, BMP 09/10/16 05:35 09/14/16 05:50 INR, PTT INR 1.05 (0.82-1.09) 09/10/16 05:35 Problem List - Problems (1) Abdominal pain Code(s): R10.9 - UNSPECIFIED ABDOMINAL PAIN (2) Acute on chronic diastolic (congestive) heart failure Code(s): I50.33 - ACUTE ON CHRONIC DIASTOLIC (CONGESTIVE) HEART FAILURE (3) CAP (community acquired pneumonia) Code(s): J18.9 - PNEUMONIA, UNSPECIFIED ORGANISM (4) CHF (congestive heart failure) Code(s): I50.9 - HEART FAILURE, UNSPECIFIED Qualifiers: Qualified Code(s): I50.9 - Heart failure, unspecified (5) Chest pain Code(s): R07.9 - CHEST PAIN, UNSPECIFIED Qualifiers: Qualified Code(s): R07.9 - Chest pain, unspecified (6) Chest pain at rest Code(s): R07.9 - CHEST PAIN, UNSPECIFIED (7) Cocaine abuse Code(s): F14.10 - COCAINE ABUSE, UNCOMPLICATED (8) Cocaine dependence Code(s): F14.20 - COCAINE DEPENDENCE, UNCOMPLICATED Qualifiers: Qualified Code(s): F14.20 - Cocaine dependence, uncomplicated (9) Cocaine dependence in early, early partial, sustained full, or sustained partial remission Code(s): F14.21 - COCAINE DEPENDENCE, IN REMISSION (10) DVT prophylaxis Code(s): [id number] - (11) Hypertensive emergency Code(s): I10 - ESSENTIAL (PRIMARY) HYPERTENSION (12) Orthopnea Code(s): R06.01 - ORTHOPNEA (13) Pulmonary edema Code(s): J81.1 - CHRONIC PULMONARY EDEMA Qualifiers: Qualified Code(s): J81.0 - Acute pulmonary edema (14) Reactive airway disease Code(s): J45.909 - UNSPECIFIED ASTHMA, UNCOMPLICATED Qualifiers: Qualified Code(s): J45.901 - Unspecified asthma with (acute) exacerbation (15) Abnormal EKG Code(s): R94.31 - ABNORMAL ELECTROCARDIOGRAM [ECG] [EKG] (16) CKD (chronic kidney disease) stage 3, GFR 30-59 ml/min Code(s): N18.3 - CHRONIC KIDNEY DISEASE, STAGE 3 (MODERATE) (17) Diabetes Code(s): E11.9 - TYPE 2 DIABETES MELLITUS WITHOUT COMPLICATIONS (18) HTN (hypertension) Code(s): I10 - ESSENTIAL (PRIMARY) HYPERTENSION Qualifiers: Qualified Code(s): I10 - Essential (primary) hypertension (19) History of myocardial infarction Code(s): I25.2 - OLD MYOCARDIAL INFARCTION (20) Hyperglycemia due to type 2 diabetes mellitus Code(s): E11.65 - TYPE 2 DIABETES MELLITUS WITH HYPERGLYCEMIA (21) Hyperlipidemia Code(s): E78.5 - HYPERLIPIDEMIA, UNSPECIFIED Qualifiers: Qualified Code(s): E78.00 - Pure hypercholesterolemia, unspecified; E78.0 - Pure hypercholesterolemia (22) Nicotine dependence Code(s): F17.200 - NICOTINE DEPENDENCE, UNSPECIFIED, UNCOMPLICATED (23) Uncontrolled type 2 diabetes mellitus Code(s): E11.65 - TYPE 2 DIABETES MELLITUS WITH HYPERGLYCEMIA (24) Alcohol dependence with uncomplicated withdrawal Code(s): F10.230 - ALCOHOL DEPENDENCE WITH WITHDRAWAL, UNCOMPLICATED (25) Hypertensive urgency Code(s): I16.0 - HYPERTENSIVE URGENCY (26) Pneumonia Code(s): J18.9 - PNEUMONIA, UNSPECIFIED ORGANISM Qualifiers: Qualified Code(s): J18.1 - Lobar pneumonia, unspecified organism (27) Shortness of breath Code(s): R06.02 - SHORTNESS OF BREATH (28) Alcohol dependence Code(s): F10.20 - ALCOHOL DEPENDENCE, UNCOMPLICATED Assessment/Plan - Problems (1) ASHD (arteriosclerotic heart disease) Code(s): I25.10 - ATHSCL HEART DISEASE OF [place] CORONARY ARTERY W/O ANG PCTRS (2) Chest pain Assessment/Plan: Stress MIBI: no myocardial ischemia; moderate-sized inferior wall infarct; moderately reduced LVEF. Atypical presentation. TNI 0.03--0.02 x 2. ECHO: mild-moderately reduced LVEF with regional wall motion abnormalities, severe MR. MR severity should be reassessed when BP well controlled. Code(s): R07.9 - CHEST PAIN, UNSPECIFIED Qualifiers: Qualified Code(s): R07.9 - Chest pain, unspecified (3) Cocaine abuse Assessment/Plan: Pt;s insight is poor. Dextox protocol (also for alcohol; pt has at least 4 beers daily). No beta blockers Have explained to him that continued use can lead to [place], CVA, aortic dissection and . Code(s): F14.10 - COCAINE ABUSE, UNCOMPLICATED (4) HTN (hypertension) Assessment/Plan: BP slightly better, but still above goal. Will titrate Procardia XL to 60mg BID. Code(s): I10 - ESSENTIAL (PRIMARY) HYPERTENSION Qualifiers: Qualified Code(s): I10 - Essential (primary) hypertension (5) Hyperlipidemia Assessment/Plan: Statin; keep LDL cholesterol < 70 mg/dL. Code(s): E78.5 - HYPERLIPIDEMIA, UNSPECIFIED Qualifiers: Qualified Code(s): E78.00 - Pure hypercholesterolemia, unspecified; E78.0 - Pure hypercholesterolemia (6) Nicotine dependence Code(s): F17.200 - NICOTINE DEPENDENCE, UNSPECIFIED, UNCOMPLICATED (7) Uncontrolled type 2 diabetes mellitus Code(s): E11.65 - TYPE 2 DIABETES MELLITUS WITH HYPERGLYCEMIA (8) Alcohol dependence with uncomplicated withdrawal Code(s): F10.230 - ALCOHOL DEPENDENCE WITH WITHDRAWAL, UNCOMPLICATED (9) Acute on chronic systolic (congestive) heart failure Assessment/Plan: ECHO results noted. Stress MIBI: IWMI; no ishcemia. Hx coronary angiogram several years ago at [facility]; pt says no stent was placed. Code(s): I50.23 - ACUTE ON CHRONIC SYSTOLIC (CONGESTIVE) HEART FAILURE
--- NOTE | 2016-09-15 15:00 | PN ---
Teaching Attending Note Name of Resident: Ev Toth ATTENDING PHYSICIAN STATEMENT I saw and evaluated the patient. I reviewed the resident's note and discussed the case with the resident. I agree with the resident's findings and plan as documented. SUBJECTIVE:asymptomatic. state he was standing rocking back and forth in the doorway when the RN saw NSVT on the monitor. states he had no CP, SOB or palpitations during this event. denies CP, SOB, fever, chills, palpitaitons, N/V /C/D OBJECTIVE: Last Vital Signs Temp Pulse Resp BP Pulse Ox 98.1 F 87 20 140/96 98 09/15/16 07:56 09/15/16 07:56 09/15/16 07:58 09/15/16 07:56 09/15/16 07:58 General NAD CV S1 S2 RRR no murmur/rub/gallop Lungs CTA B/L no wheezing/rales/rhonchi ASSESSMENT AND PLAN: 56-year-old man with a history of HTN, CAD, [place], hyperlipidemia, type 2 DM, asthma, cocaine and alcohol abuse who presented to the ER with left-sided sharp stabbing chest pain. 1. Chest pain- CP free. troponins neg x4. stress test with no ischemia. but mod inferior infarcted area. resident spoke with cardiology who states no cardiac cath at this time. NSVT noted on monitor. no other events noted. cardio aware of NSVT. not a candidate for beta ar due to active cocaine use. Continue aspirin, Imdur, Lipitor 2. HTN urgency- improved. cont current management. stressed to pt need to be compliant with medications. will likely require further adjustment to antihypertensives. 3. Acute systolic and diastolic heart failure- clinically euvolemic. on lasix po. monitor fluid intake. daily weight. 4. Hypertensive heart disease with chronic diastolic heart failure 5. Severe mitral regurgitation 6. Hyperlipidemia- Continue Lipitor 7. Type 2 DM- A1c 5.9. on glipizide. cont iss 8. Asthma- Continue Albuterol as needed 9. Stage 3 CKD- Stable 10. Continuous polysusbtance abuse- no signs of withdrawal. counseled on need for drug abstinence. explained risks of cocaine use with HTN and cardiac disease , and interaction with required medications. counseled on need for drug cessation. does not want inpatient rehab. avoid beta blockers due to cocaine use. cont nicotine patch 11. DVT ppx- hep sq 12. d/c home with cardiac followup. concern for medication compliance and active drug use. counseled pt on these risks
--- NOTE | 2016-09-15 17:01 | DS ---
Physical Exam: SUBJECTIVE: Patient seen and examined at bedside. Pt comfortable and feeling well this morning. Denied chest pain, SOB, extremity pain. OBJECTIVE: Vital Signs Period Temp Pulse Resp BP Sys/Caal Pulse Ox Last 24 Hr 97.9 F-98.6 F 80-88 18-20 137-153/80-105 98-98 PHYSICAL EXAM GENERAL: The patient is awake, alert, and fully oriented, in no acute distress. Does not need 02 via NC HEAD: Normal with no signs of trauma. EYES: PERRL, extraocular movements intact, sclera anicteric, conjunctiva clear. ENT: oropharynx clear without exudates, moist mucous membranes. NECK: Trachea midline, supple. LUNGS: Breath sounds equal, clear to auscultation bilaterally, no wheezes, no crackles, no accessory muscle use. HEART: Regular rate and rhythm, S1, S2 without murmur, rub or gallop. ABDOMEN: Soft, nontender, nondistended, normoactive bowel sounds, no guarding, no rebound EXTREMITIES: 2+ pulses, warm, well-perfused, no edema. NEUROLOGICAL: Cranial nerves II through XII grossly intact VITALS TREND/LABS Vitals Trend 09/09/16 09/09/16 09/10/16 10:18 12:07 02:00 Temperature 97.6 F Pulse Rate Pulse Rate [ 96 H 92 H Apical] Respiratory Rate Blood Pressure O2 Sat by Pulse Oximetry (%) 09/10/16 09/10/16 09/10/16 06:00 10:00 13:51 Temperature 97.8 F 98.1 F 97.4 F L Pulse Rate Pulse Rate [ Apical] Respiratory Rate Blood Pressure O2 Sat by Pulse Oximetry (%) 09/10/16 09/10/16 09/11/16 17:00 21:00 01:00 Temperature 98.0 F 98.7 F 97.6 F Pulse Rate Pulse Rate [ Apical] Respiratory 20 Rate Blood Pressure 156/100 O2 Sat by Pulse Oximetry (%) 09/11/16 09/11/16 09/11/16 05:00 08:00 09:37 Temperature 97.7 F 98.1 F Pulse Rate Pulse Rate [ Apical] Respiratory 20 20 18 Rate Blood Pressure 173/117 160/104 146/93 O2 Sat by Pulse Oximetry (%) 09/11/16 09/11/16 09/11/16 10:00 10:22 11:03 Temperature Pulse Rate Pulse Rate [ Apical] Respiratory 18 Rate Blood Pressure 169/109 167/106 O2 Sat by Pulse Oximetry (%) 09/11/16 09/11/16 09/11/16 12:35 14:10 17:00 Temperature 98.2 F 98.0 F Pulse Rate Pulse Rate [ Apical] Respiratory 20 18 Rate Blood Pressure 180/112 170/109 169/103 O2 Sat by Pulse Oximetry (%) 09/11/16 09/11/16 09/12/16 21:00 22:00 01:00 Temperature 98.4 F 98.5 F Pulse Rate Pulse Rate [ Apical] Respiratory 18 18 20 Rate Blood Pressure 162/113 156/107 O2 Sat by Pulse Oximetry (%) 09/12/16 09/12/16 09/12/16 05:00 08:00 08:20 Temperature 97.8 F 98.8 F Pulse Rate Pulse Rate [ Apical] Respiratory 20 20 20 Rate Blood Pressure 178/118 175/109 O2 Sat by Pulse 96 Oximetry (%) 09/12/16 09/12/16 09/12/16 15:43 18:00 22:00 Temperature 97.9 F 98.2 F 98.1 F Pulse Rate Pulse Rate [ Apical] Respiratory 20 19 20 Rate Blood Pressure 165/115 149/102 170/108 O2 Sat by Pulse 94 L Oximetry (%) 09/12/16 09/13/16 09/13/16 23:40 03:00 06:23 Temperature 97.8 F 98.4 F Pulse Rate Pulse Rate [ Apical] Respiratory 19 Rate Blood Pressure 145/101 138/80 164/118 O2 Sat by Pulse Oximetry (%) 09/13/16 09/13/16 09/13/16 09:00 10:00 14:30 Temperature 98.4 F 98.3 F Pulse Rate Pulse Rate [ Apical] Respiratory Rate Blood Pressure 183/112 172/96 O2 Sat by Pulse 98 Oximetry (%) 09/13/16 09/13/16 09/13/16 17:00 21:26 22:00 Temperature 98.0 F 98 F Pulse Rate Pulse Rate [ Apical] Respiratory Rate Blood Pressure 153/104 157/107 O2 Sat by Pulse 96 Oximetry (%) 09/14/16 09/14/16 09/14/16 02:00 06:00 10:00 Temperature Pulse Rate 82 86 83 Pulse Rate [ Apical] Respiratory Rate Blood Pressure 178/105 159/94 152/98 O2 Sat by Pulse 95 Oximetry (%) 09/14/16 09/14/16 09/14/16 14:00 17:00 21:00 Temperature Pulse Rate 89 88 85 Pulse Rate [ Apical] Respiratory Rate Blood Pressure 127/67 153/95 152/105 O2 Sat by Pulse Oximetry (%) 09/14/16 09/15/16 09/15/16 22:00 01:00 01:05 Temperature Pulse Rate 82 80 Pulse Rate [ Apical] Respiratory Rate Blood Pressure 140/100 137/80 O2 Sat by Pulse 98 Oximetry (%) 09/15/16 09/15/16 09/15/16 02:15 05:32 07:56 Temperature 97.9 F 98.1 F 98.1 F Pulse Rate 85 87 Pulse Rate [ Apical] Respiratory Rate Blood Pressure 138/93 140/96 O2 Sat by Pulse Oximetry (%) 09/15/16 07:58 Temperature Pulse Rate Pulse Rate [ Apical] Respiratory Rate Blood Pressure O2 Sat by Pulse 98 Oximetry (%) Laboratory Tests 09/09/16 09/10/16 09/10/16 09:46 05:35 05:35 WBC 8.3 RBC 3.70 L Hgb 11.3 L Hct 35.3 L MCV 95.4 ESR BUN 16 Creatinine 1.4 H Random Glucose B-Natriuretic Peptide 2154.04 H Albumin 3.3 L 3.0 L 09/10/16 09/13/16 09/14/16 05:35 08:10 05:50 WBC RBC Hgb Hct MCV ESR 60 H BUN 17 21 H D Creatinine 1.5 H 1.2 Random Glucose 160 H 205 H D B-Natriuretic Peptide Albumin TROPONINS (09/09/2016, 09/10/2016): 0.03, 0.02 (WNL) IMAGING EKG 09/09/16: sinus tachycardia, possible L atrial enlargement, nonspecific T wave abnormality, abnormal EKG compared to April 2016, no significant change was found CXR 09/09/16: cardiomegaly, no evidence of CHF, pulmonary consolidations, no pneumothorax seen RUQ US 09/09/16: hepatomegaly with coarse echotexture, rule out fatty infiltration vs. hepatocelular. correlate with liver enzymes. no gallstones. incidental R pleural effusion EKG 09/10/16: normal sinus rhythm, nonspecific T wave abnormality, prolonged QT, abnormal EKG compared to September 09, no significant change was found ECHO 09/10/16 : LV systolic function mild to moderately impaired, RA dilated , abnormal LV wall motion abnormality with lower IV septal thinning and dyskinesia and severe apical hypokinesis, severe mitral regurgitation, recommend color flow doppler of lower IVS, may need to consider ISABELLA MYOCARDIAL PERFUSION SCAN 09/11/16: exercise results: non diagnostic persantine EKG due to baseline EKG abnormalities. Nuclear results: moderate size inferior scar with no ischemia, LVEF 32%. LV cavity enlarged MICROBIOLOGY 09/09/16 13:55 Blood - Peripheral Venous Blood Culture - Final NO GROWTH AFTER 5 DAYS INCUBATION 09/09/16 13:50 Blood - Peripheral Venous Blood Culture - Final NO GROWTH AFTER 5 DAYS INCUBATION HOSPITAL COURSE: Date of Admission:09/09/16 Date of Discharge: 09/15/16 Admit diagnosis: chest pain r/o ACS Pre-admission course This is a 56 y/o M with PMH of HTN, HTN urgency and pneumonia April, MIx3, HLD, NIDDM, asthma, cocaine use- last week, medication non-adherence, who came to the ED with chest pain since 7am. As per patient, pain is mid-sternal, 8/10 and pressure like, and is constant. It radiates to his L mid back and LUQ. Pain is worse with deep inspiration. Patient states that pain is like his past HTN emergency episodes for which he was admitted for. Pt also has cough with whitish-yellow sputum during this time and associated shortness of breath on exertion. He has also noted recent abdominal distension this past week. Denies diaphoresis, sick contacts, hemoptysis, dizziness, fever , chills, blurred vision, N/V, leg edema. ER course was notable for: (1) morphine- alleviated chest pain Hospital course After admission, patient's troponins were followed and were negative x2. Cardio was consulted and stress test revealed moderate sized inferior scar with no ischemia, and an LVEF of 32%. During this time, patient's BP was uncontrolled wth HTN urgency. His medications were changed, initially by adding Norvasc 10mg to his regime, and later by adding Procardia XL first at 30mg BID then 60 BID. He went home on this dose. His carvedilol was held due to his recent cocaine use (1 week before admission), and he was continued on Lasix and aldactone for CHF. Pt is non-compliant with medication and was urged to follow-through with medication and see his insulation inspector after discharge. He is a high risk pt as he has had 3 MO's in the past. He was counseled on smoking cessation and cocaine use, and suggested to find a 12-step meeting program such as NA. Concerning patient's pneumonia, it resolved within the first two days of admission, as he remained afebrile and his WBC count normalized. Pt was not SOB and did not need supplemental oxygen upon discharge. Minutes to complete discharge: 32 Discharge Summary Reason For Visit: HYPERTENSIVE CRISIS,CHEST PAIN Current Active Problems Abnormal EKG (Acute) CAP (community acquired pneumonia) (Acute) Chest pain (Acute) Cocaine abuse (Acute) Hypertensive emergency (Acute) Nicotine abuse (Acute) Acute on chronic diastolic (congestive) heart failure (Chronic) CKD (chronic kidney disease) stage 3, GFR 30-59 ml/min (Chronic) Diabetes (Chronic) HTN (hypertension) (Chronic 09/05/13) History of myocardial infarction (Chronic) Hyperglycemia due to type 2 diabetes mellitus (Chronic) Hyperlipidemia (Chronic 09/05/13) Condition: Stable - Instructions Diet, Activity, Other Instructions: You were recently in the hospital for chest pain. Please take the following medications for your high blood pressure and heart health at home: -Aldactone 50 mg (1 tablet) by mouth daily -Apresoline (Hydralazine) 100 mg *1 tablet) by mouth, three times a day -Diovan 320 mg (1 tablet) by mouth daily -Ecotrin 81 mg (1 tablet) by mouth daily -Imdur 30 mg (1 tablet) by mouth daily -Lasix 40 mg (1 tablet) by mouth daily -Procardia XL 60 mg (1 tablet) twice a day -Lipitor 40 mg (1 tablet) by mouth daily It is important that you take these medications on a daily basis. It will benefit your heart health. Please do not take your carvedilol. Please follow-up with your primary care physician and a insulation inspector, Dr. Cabezas in 1 week. You may require further testing including cardiac catheterization. You may discuss use of nicotine patch with your primary care physician for smoking cessation. You were also in the hospital for recent cocaine use. We recommend that you look into a 12-step meeting, or Narcotics Anonymous group near you. It may be beneficial, and also benefit your overall health. If you develop chest pain, shortness of breath, or any new symptoms, please go to the hospital. We hope you feel better soon. Referrals: Lenny Hernandez MD [Primary Care Provider] - Tristan Cabezas MD [Staff Physician] - Disposition: HOME - Home Medications Comprehensive Discharge Medication List: Ambulatory Orders Glipizide Xl [Glucotrol Xl -] 5 mg PO DAILY@0700 #60 tab.er.24 02/22/16 Albuterol Sulfate Inhaler - [Ventolin HFA Inhaler -] 2 inh PO Q4H #1 inh Aspirin Coated [Ecotrin -] 81 mg PO DAILY #30 tab 05/23/16 Atorvastatin Ca [Lipitor] 40 mg PO HS #30 tablet 05/23/16 Furosemide [Lasix -] 40 mg PO DAILY #30 tablet 05/23/16 Hydralazine HCl [Apresoline -] 100 mg PO TID #180 tablet 05/23/16 Isosorbide Mononitrate [Imdur -] 30 mg PO DAILY #30 tab 05/23/16 Spironolactone [Aldactone] 50 mg PO DAILY #30 tablet 05/23/16 Valsartan [Diovan] 320 mg PO DAILY #60 tablet 05/23/16 Nifedipine ER [Procardia XL -] 60 mg PO BID #60 tab 09/15/16 This patient is new to me today: No Emergency Visit: No Critical Care patient: No - Discharge Referral Referred to [facility] No
== END 2016-09-15 16:25 | disposition home or self-care (01) | DRG 720 ==
LOC: JER 09:00 → JERBED 12:43 → J4W 20:21
PROVIDERS: ADMIT Internal Medicine; ATTEND Internal Medicine
DX: A41.9 Sepsis, unspecified organism (principal); E78.5 Hyperlipidemia, unspecified; J45.909 Unspecified asthma, uncomplicated; F14.10 Cocaine abuse, uncomplicated; I25.2 Old myocardial infarction; F10.10 Alcohol abuse, uncomplicated; F17.210 Nicotine dependence, cigarettes, uncomplicated; J18.9 Pneumonia, unspecified organism; R07.89 Other chest pain; I25.10 Atherosclerotic heart disease of native coronary artery without angina pectoris; I16.0 Hypertensive urgency; K21.9 Gastro-esophageal reflux disease without esophagitis; M54.5 Low back pain; I13.0 Hypertensive heart and chronic kidney disease with heart failure and stage 1 through stage 4 chronic kidney disease, or unspecified chronic kidney disease; E11.22 Type 2 diabetes mellitus with diabetic chronic kidney disease; E11.65 Type 2 diabetes mellitus with hyperglycemia; N18.3 Chronic kidney disease, stage 3 (moderate); I50.23 Acute on chronic systolic (congestive) heart failure; I34.0 Nonrheumatic mitral (valve) insufficiency; Z91.14 Patient's other noncompliance with medication regimen
CPT/HCPCS: 36415; 71010-TC; 76705-TC; 78452-TC; 80048; 80053; 80061; 80307; 81003; 81015; 82550; 83036; 83721; 83735; 83880; 84100; 84443; 84484; 85025; 85610; 85651; 87040; 93005; 93010; 93017; 93306-TC; 94640; 99285-25; A9502; J1644

== ENCOUNTER 2017-01-12 09:44 | Emergency (ER) | payer OTHER ==
[2017-01-12 09:54] VITALS: TEMP 98.3; BMI 34.2
--- NOTE | 2017-01-12 10:10 | PDOC ---
History of Present Illness - General Chief Complaint: Shortness of Breath Stated Complaint: SOB Time Seen by Provider: 01/12/17 09:59 History Source: Patient - History of Present Illness Timing/Duration: reports: this morning Associated Symptoms: reports: shortness of breath. denies: chest pain/soreness , wheezing Past History - Past Medical History Allergies/Adverse Reactions: Allergies Allergy/AdvReac Type Severity Reaction Status Date / Time IRMA Inhibitors Allergy Verified 01/12/17 09:47 Home Medications: Ambulatory Orders Albuterol Sulfate [Proair Respiclick] 90 mcg IH Q4H PRN #1 aer.[email or web address] 11/22/16 Aspirin [Lo-Dose Aspirin EC] 81 mg PO DAILY #10 tablet.dr 11/22/16 Atorvastatin Ca [Lipitor] 40 mg PO HS #10 tablet 11/22/16 Furosemide [Lasix -] 40 mg PO DAILY #10 tablet 11/22/16 Glipizide Xl [Glucotrol Xl -] 5 mg PO DAILY@0700 #10 tab.er.24 11/22/16 Hydralazine HCl [Apresoline -] 100 mg PO TID #30 tablet 11/22/16 Isosorbide Mononitrate [Imdur -] 30 mg PO DAILY #10 tab 11/22/16 Nifedipine ER [Procardia XL -] 60 mg PO BID #20 tab 11/22/16 Spironolactone [Aldactone] 50 mg PO DAILY #10 tablet 11/22/16 Valsartan [Diovan] 320 mg PO DAILY #10 tablet 11/22/16 Glipizide Xl [Glucotrol Xl -] 5 mg PO DAILY #10 tab.er.24 01/12/17 Hydralazine HCl 100 mg PO TID #10 tablet 01/12/17 Nifedipine ER [Procardia XL -] 60 mg PO BID #10 tab.er.24 01/12/17 Valsartan 320 mg PO DAILY #10 tablet 01/12/17 Anemia: No Asthma: Yes Cancer: No Cardiac Disorders: Yes (ACS,NE X 3,NO STENTS) CVA: No COPD: No CHF: No Dementia: No Diabetes: Yes GI Disorders: No Disorders: No HTN: Yes Hypercholesterolemia: Yes Kidney Stones: No Liver Disease: No Seizures: No Thyroid Disease: No - Surgical History Abdominal Surgery: No Appendectomy: No Cardiac Surgery: No Cholecystectomy: No Lung Surgery: No Neurologic Surgery: No Orthopedic Surgery: Yes (old orthopedic injury fractured left ankle x2) - Reproductive History Testicular Surgery: No - Immunization History Immunization Up to Date: Yes - Suicide/Smoking/Psychosocial Hx Smoking Status: No Smoking History: Current every day smoker Have you smoked in the past 12 months: Yes Number of Cigarettes Smoked Daily: 3 Information on smoking cessation initiated: Yes 'Breaking Loose' booklet given: 01/12/17 Hx Alcohol Use: Yes (beer) Drug/Substance Use Hx: Yes (cocaine 1x) Substance Use Type: Cocaine Hx Substance Use Treatment: Yes ([facility]- 2013) Respiratory Specific PMHX - Complaint Specific PMHX TB (Tuberculosis): No Review of Systems - Review of Systems Constitutional: No: Chills, Fever Respiratory: Yes: Cough, Shortness of Breath. No: Wheezing Cardiac (ROS): No: Chest Pain, Edema, Lightheadedness, Palpitations, Syncope *Physical Exam - Vital Signs Last Vital Signs Temp Pulse Resp BP Pulse Ox 98.3 F 106 H 24 240/130 100 01/12/17 09:48 01/12/17 09:48 01/12/17 09:48 01/12/17 09:48 01/12/17 09:48 - Physical Exam General Appearance: Yes: Appropriately Dressed, Mild Distress HEENT: positive: Normal Voice Neck: positive: Supple Respiratory/Chest: positive: Lungs Clear, Normal Breath Sounds. negative: Respiratory Distress Cardiovascular: positive: Regular Rate, Tachycardia Extremity: negative: Pedal Edema Integumentary: positive: Dry, Warm Neurologic: positive: Fully Oriented, Alert, Normal Mood/Affect ED Treatment Course - LABORATORY CBC & Chemistry Diagram: 01/12/17 10:35 01/12/17 10:35 - RADIOLOGY Radiology Studies Ordered: Category Date Time Status CHEST X-RAY PORTABLE* [RAD] Stat Radiology 01/12/17 10:00 Ordered Medical Decision Making - Medical Decision Making 01/12/17 10:06 56-year-old AA male, w/ history of cocaine abuse, former smoker, ?asthma, DM, HLD, HTN w/ multiple ER admissions for hypertensive urgencies/emergencies, MIs x 3, has non-compliance issues w/ medicatipns, s/p unremarkable stress test 7/ 17 with reportedly non-obstructive cath 4 years ago, here with shortness of breath with productive cough that started this a.m. Also reports orthopnea. No chest pain, edema, palpitations, fever or chills. States he has been taking his medications and took last dose was last night, but did not take meds this am as he has since ran out. Has appointment with PMD in 2 days for refills as per patient See exam SOB Significantly hypertensive in ED w/ tachycardia to 106 and appears mildly uncomfortable Chest/lungs clear w/ no edema R/o ACS vs CHF vs PNA (given cough) vs asthma flare, less likely dissection or PE, -ekg -cxr -labs -will give BP home meds as did not take today -anticipate admission 01/12/17 10:37 01/12/17 10:39 Pt currently receiving albuterol neb and states he is able to breathe better. Chest x-ray read as new congestive changes. In addition to home BP meds, will also give patient a dose of lasix in ED, which patient is also on at home. 01/12/17 10:58 Patient requesting to leave. States he feels a lot better. Vitals, including blood pressure also significantly improved with home meds. Pt refusing IV and lasix. I explained to patient that given his presentation, that we would still want to admit him. Patient verbalized understanding, but still states he wants to leave, but at least willing to wait for his labs to come back. Will have patient sign an AMA after that. ED attending aware 01/12/17 11:15 01/12/17 12:05 BNP >1300, similar to in the past. Pt made b[place]an[place]ra and still refusing dose of IV lasix in ED. Pt reports feeling well and still prefers to leave. Aware of medical risks and appears to have capacity. Given refill on BP meds until he sees his PMD in 2 days for refills. Signed AMA form 01/12/17 12:06 01/12/17 12:07 *DC/Admit/Observation/Transfer Diagnosis at time of Disposition: Shortness of breath, Hypertensive urgency - Discharge Dispostion Disposition: AGAINST MEDICAL ADVICE - Prescriptions Prescriptions: Glipizide Xl [Glucotrol Xl -] 5 mg PO DAILY #10 tab.er.24 Hydralazine HCl 100 mg PO TID #10 tablet Nifedipine ER [Procardia XL -] 60 mg PO BID #10 tab.er.24 Valsartan 320 mg PO DAILY #10 tablet - Referrals Referrals: Lenny Hernandez MD [Primary Care Provider] - - Patient Instructions Printed Discharge Instructions: High Blood Pressure Additional Instructions: You have signed out AGAINST MEDICAL ADVICE and refused admission. You are aware that you can return to ER at any time. Your blood pressure was significantly elevated in the ER, please take your medication as prescribed and follow-up with your doctor on Thursday as already scheduled - Post Discharge Activity
[2017-01-12] MEDS ORDERED: NIFEdipine 10 MG CAPSULE (FP) PO ONE (10:16)
[2017-01-12] MEDS ORDERED: VALSARTAN 160 MG TABLET (UD) PO ONE (10:17)
[2017-01-12] MEDS ORDERED: hydrALAZINE HCL 50 MG TABLET (FP) PO ONE (10:17)
[2017-01-12] MEDS ORDERED: VALSARTAN 80 MG TABLET (UD) ONE (10:24)
[2017-01-12] MEDS ORDERED: ALBUTEROL SO4 2.5/IPRATROPIUM 0.5 INH SOL 3 ML VIAL.NEB. NEB ONE (10:24)
[2017-01-12] MEDS ORDERED: hydrALAZINE HCL 25 MG TABLET (FP) ONE (10:24)
[2017-01-12] MEDS: ALBUTEROL SO4 2.5/IPRATROPIUM 0.5 INH SOL 3 ML VIAL.NEB. NEB SCH ×4 (10:28→11:09)
[2017-01-12] MEDS ORDERED: NIFEdipine 10 MG CAPSULE (FP) ONE (10:32)
[2017-01-12] MEDS ORDERED: FUROSEMIDE 40 MG/4 ML INJECTABLE VIAL IVPUSH ONE (10:37)
[2017-01-12 10:49] LABS: BASOPHIL 0.8 % (0-2.0); EOSINOPHIL 0.9 % (0-4.5); MCH 29.3 pg (25.7-33.7); MCHC 32.1 g/dl (32.0-35.9); MEAN CELL VOLUME 91.5 fl (80-96); MEAN PLT VOLUME 7.4 fl (7.5-11.1); PLATELET COUNT 344 K/MM3 (134-434); RDW 13.7 % (11.9-15.9); WHITE BLOOD COUNT 10.2 K/mm3 (4.0-10.0)
[2017-01-12 11:26] LABS: ALBUMIN 3.5 g/dl (3.4-5.0); ANION GAP 10 (8-16); BILIRUBIN,TOTAL 0.6 mg/dL (0.2-1.0); CALCIUM 8.5 mg/dL (8.5-10.1); CO2 20 mmol/L (21-32); CREATININE 1.3 mg/dL (0.7-1.3); GLUCOSE,RANDOM 236 mg/dL (74-106); SGOT/AST 39 U/L (15-37); SGPT/ALT 75 U/L (12-78); TOT PROT 7.3 g/dl (6.4-8.2)
[2017-01-12 11:29] LABS: ALK PHOS 181 U/L (45-117); CPK 143 IU/L (39-308); TROPONIN I 0.03 ng/ml (0.00-0.05)
[2017-01-12 12:09] VITALS: BP 150/91; PULSE 106
--- NOTE | 2017-01-12 13:54 | EKG ---
Test Reason : Blood Pressure : / mmHG Vent. Rate : 101 BPM Atrial Rate : 101 BPM P-R Int : 174 ms QRS Dur : 092 ms QT Int : 370 ms P-R-T Axes : 049 029 022 degrees QTc Int : 479 ms SINUS TACHYCARDIA POSSIBLE LEFT ATRIAL ENLARGEMENT NONSPECIFIC ST AND T WAVE ABNORMALITY ABNORMAL ECG WHEN COMPARED WITH ECG OF 21-NOV-2016 22:27, Confirmed by ALLEN CESPEDES MD ([id number]) on 01/12/2017 1:53:46 PM Referred By: Confirmed By:ALLEN CESPEDES MD
== END 2017-01-12 12:15 | disposition left against medical advice (07) ==
LOC: JER 09:44
PROC: 3E0F7GC Introduction of Other Therapeutic Substance into Respiratory Tract, Via Natural or Artificial Opening (ICD-10-PCS; principal; 2017-01-12)
DX: I16.0 Hypertensive urgency (principal); I25.10 Atherosclerotic heart disease of native coronary artery without angina pectoris; I25.2 Old myocardial infarction; E78.00 Pure hypercholesterolemia, unspecified; E11.9 Type 2 diabetes mellitus without complications; Z79.84 Long term (current) use of oral hypoglycemic drugs
CPT/HCPCS: 36415; 71010-TC; 80053; 82550; 83880; 84484; 85025; 93005; 93010; 94640; 99283-25

== ENCOUNTER 2017-02-23 09:04 | Inpatient (IN) | payer OTHER ==
[2017-02-23 09:14] VITALS: BMI 33.2
[2017-02-23] MEDS ORDERED: ALBUTEROL SO4 2.5/IPRATROPIUM 0.5 INH SOL 3 ML VIAL.NEB. NEB ONE (09:22)
[2017-02-23] MEDS ORDERED: ALBUTEROL SO4 0.083% IH SOL 2.5 MG/3 ML VIAL.NEB. NEB ONE (09:22)
--- NOTE | 2017-02-23 09:24 | PDOC ---
History of Present Illness - General History Source: Patient Exam Limitations: No Limitations - History of Present Illness Initial Comments: 02/23/17 10:06 The patient is a 56-year-old male with a significant past medical history of asthma, ACS (prior VT x 3, no stents), HTN, HLD, NIDDM, asthma, and cocaine use , and presents to the emergency department with shortness of breath and wheezing since last night. He reports breathing is slightly better when sitting up and he has been sitting up all night for relief. He used his inhaler with no significant relief. He also reports associated productive cough with production of yellow sputum. He states that his legs swell when his blood pressure is high , but did not notice today if there is swelling to his legs. The patient denies chest pain, headache and dizziness. The patient denies fever , chills, abdominal pain, nausea, vomit, diarrhea and constipation. The patient denies dysuria, frequency, urgency and hematuria. Allergies: IRMA inhibitors Past Surgical History: old orthopedic injury fractured left ankle x2 Social History: Cocaine use. Current everyday smoker. Alcohol use. PCP: Dr. Hernandez <Alyse Gimenez - Last Filed: 02/23/17 11:14> <Beatriz Roldan - Last Filed: 02/23/17 11:47> - General Chief Complaint: Shortness of Breath Stated Complaint: SOB Time Seen by Provider: 02/23/17 09:24 Past History <Alyse Gimenez - Last Filed: 02/23/17 11:14> - Past Medical History Anemia: No Asthma: Yes Cancer: No Cardiac Disorders: Yes (ACS,VT X 3,NO STENTS) CVA: No COPD: No CHF: No Dementia: No Diabetes: Yes GI Disorders: No Disorders: No HTN: Yes Hypercholesterolemia: Yes Kidney Stones: No Liver Disease: No Seizures: No Thyroid Disease: No - Surgical History Abdominal Surgery: No Appendectomy: No Cardiac Surgery: No Cholecystectomy: No Lung Surgery: No Neurologic Surgery: No Orthopedic Surgery: Yes (old orthopedic injury fractured left ankle x2) - Reproductive History Testicular Surgery: No - Immunization History Immunization Up to Date: Yes - Suicide/Smoking/Psychosocial Hx Smoking Status: No Smoking History: Current every day smoker Have you smoked in the past 12 months: Yes Number of Cigarettes Smoked Daily: 3 Information on smoking cessation initiated: No 'Breaking Loose' booklet given: 01/12/17 Hx Alcohol Use: Yes (beer) Drug/Substance Use Hx: Yes (cocaine 1x) Substance Use Type: Cocaine Hx Substance Use Treatment: Yes ([facility]- 2013) <YuliSreekanthBeatriz - Last Filed: 02/23/17 11:47> - Past Medical History Allergies/Adverse Reactions: Allergies Allergy/AdvReac Type Severity Reaction Status Date / Time IRMA Inhibitors Allergy Verified 02/23/17 09:14 Home Medications: Ambulatory Orders Aspirin [Lo-Dose Aspirin EC] 81 mg PO DAILY #10 tablet. 11/22/16 Atorvastatin Ca [Lipitor] 40 mg PO HS #10 tablet 11/22/16 Furosemide [Lasix -] 40 mg PO DAILY #10 tablet 11/22/16 Hydralazine HCl [Apresoline -] 100 mg PO TID #30 tablet 11/22/16 Valsartan [Diovan] 320 mg PO DAILY #10 tablet 11/22/16 Budesonide/Formeterol Fumarate [SYMBICORT 160/4.5mcg -] 1 inh PO DAILY 02/23/17 Glipizide Xl [Glucotrol Xl -] 5 mg PO BID 02/23/17 Nifedipine ER [Procardia XL -] 60 mg PO DAILY 02/23/17 Review of Systems - Review of Systems Able to Perform ROS?: Yes Comments:: 02/23/17 10:06 GENERAL/CONSTITUTIONAL: No fever or chills. No weakness. HEAD, EYES, EARS, NOSE AND THROAT: No change in vision. No ear pain or discharge. No sore throat. CARDIOVASCULAR: (+) Shortness of breath. No chest pain. RESPIRATORY: (+) Cough. (+) Wheezing. No hemoptysis. GASTROINTESTINAL: No nausea, vomiting, diarrhea or constipation. GENITOURINARY: No dysuria, frequency, or change in urination. MUSCULOSKELETAL: No joint or muscle swelling or pain. No neck or back pain. SKIN: No rash NEUROLOGIC: No headache, vertigo, loss of consciousness, or change in strength/ sensation. ENDOCRINE: No increased thirst. No abnormal weight change. HEMATOLOGIC/LYMPHATIC: No anemia, easy bleeding, or history of blood clots. ALLERGIC/IMMUNOLOGIC: No hives or skin allergy. <Alyse Gimenez - Last Filed: 02/23/17 11:14> *Physical Exam - Vital Signs Last Vital Signs Temp Pulse Resp BP Pulse Ox 117 H 24 174/120 94 L 02/23/17 10:03 02/23/17 10:03 02/23/17 10:03 02/23/17 10:03 - Physical Exam Comments: 02/23/17 10:06 GENERAL: Awake, alert, and fully oriented, in no acute distress HEAD: No signs of trauma EYES: PERRLA, EOMI, sclera anicteric, conjunctiva clear ENT: Auricles normal inspection, hearing grossly normal, nares patent, oropharynx clear without exudates. Moist mucosa NECK: Normal ROM, supple, no lymphadenopathy, JVD, or masses LUNGS: (+) Tachypneic. (+) Speaking in 1-2 word sentences. (+) Diffuse wheezes. (+) Using accessory muscles. No crackles HEART: (+) Tachycardic. Regular rhythm, normal S1 and S2, no murmurs, rubs or gallops ABDOMEN: Soft, nontender, normoactive bowel sounds. No guarding, no rebound. No masses EXTREMITIES: Normal range of motion, (+) trace edema up to the knees. No clubbing or cyanosis. No cords, erythema, or tenderness NEUROLOGICAL: Cranial nerves II through XII grossly intact. SKIN: Warm, Dry, normal turgor, no rashes or lesions noted. <PernellAlyse - Last Filed: 02/23/17 11:14> - Vital Signs Last Vital Signs Temp Pulse Resp BP Pulse Ox 121 H 24 167/121 96 02/23/17 09:12 02/23/17 09:12 02/23/17 09:12 02/23/17 09:12 <Beatriz Roldan - Last Filed: 02/23/17 11:47> ED Treatment Course - LABORATORY CBC & Chemistry Diagram: 02/23/17 09:50 02/23/17 09:50 - ADDITIONAL ORDERS Additional order review: 02/23/17 09:50 RBC 3.99 L MCV 90.7 MCHC 31.9 L RDW 14.9 MPV 7.0 L Neutrophils % 78.8 Lymphocytes % 9.6 Monocytes % 8.3 Eosinophils % 2.7 D Basophils % 0.6 - Medications Given in the ED: ED Medications Discontinued Medications Generic Name Dose Route Start Last Admin Trade Name Rody PRN Reason Stop Dose Admin Acetaminophen 1,000 mg 02/23/17 09:45 02/23/17 09:55 Tylenol - PO 02/23/17 09:46 1,000 mg ONCE ONE Administration Furosemide 40 mg 02/23/17 09:33 02/23/17 09:54 Lasix Injection - IVPB 02/23/17 09:34 40 mg ONCE ONE Administration Nitroglycerin 0.4 mg 02/23/17 09:34 02/23/17 09:54 Nitrostat - SL 02/23/17 09:35 0.4 mg ONCE ONE Administration <Alyse Gimenez - Last Filed: 02/23/17 11:14> - LABORATORY CBC & Chemistry Diagram: 02/23/17 09:50 02/23/17 09:50 <Beatriz Roldan - Last Filed: 02/23/17 11:47> Medical Decision Making - Medical Decision Making 02/23/17 09:54 pt presents to the ED complaining of shortness of breath, CORDON and orthopnea for one day. Hypertensive and edematous, with diffuse wheezes. No relief with albuterol inhaler at home or by EMS. Tachycardic and tachypneic on arrival to the ED. Differential includes CHF exacerbation, less likely COPd exacerbation or PNA, ACS. EKG shows no acute ischemia. Will treat with bipap, lasix and nitro, check CXR, admit to medicine for likely CHF exacerbation. Will check labs to look for ACS or elevated WBC count consistent with infection. <Beatriz Roldan - Last Filed: 02/23/17 11:47> *DC/Admit/Observation/Transfer - Attestations Scribe Attestion: 02/23/17 10:07 Documentation prepared by Alyse Gimenez, acting as medical charge entry specialist for Beatriz Roldan MD, MD/. <Alyse Gimenez - Last Filed: 02/23/17 11:14> - Discharge Dispostion Admit: Yes <Beatriz Roldan - Last Filed: 02/23/17 11:47> Diagnosis at time of Disposition: Asthma exacerbation Qualifiers: Asthma severity: severe Asthma persistence: persistent Qualified Code(s): J45.51 - Severe persistent asthma with (acute) exacerbation - Discharge Dispostion Condition at time of disposition: Good - Referrals Referrals: Lenny Hernandez MD [Primary Care Provider] -
[2017-02-23] MEDS ORDERED: FUROSEMIDE 100 MG/10 ML INJECTABLE VIAL IVPB ONE (09:33)
[2017-02-23] MEDS ORDERED: NITROGLYCERIN SUBLINGUAL 1/150 0.4 MG TAB SL ONE (09:34)
[2017-02-23] MEDS ORDERED: ACETAMINOPHEN 500 MG TABLET (FP) PO ONE (09:45)
[2017-02-23] MEDS ORDERED: FUROSEMIDE 40 MG/4 ML INJECTABLE VIAL ONE (09:45)
[2017-02-23] MEDS ORDERED: ACETAMINOPHEN 325 MG TABLET (FP) ONE (09:48)
[2017-02-23 09:58] LABS: BASO % 0.6 % (0-2.0); EOS % 2.7 % (0-4.5); HEMATOCRIT 36.2 % (35.4-49); HEMOGLOBIN 11.5 GM/dL (11.7-16.9); LYMPH % 9.6 % (8-40); MCH 28.9 pg (25.7-33.7); MCHC 31.9 g/dl (32.0-35.9); MEAN CELL VOLUME 90.7 fl (80-96); MONO % 8.3 % (3.8-10.2); NEUT % 78.8 % (42.8-82.8); PLATELET COUNT 328 K/MM3 (134-434); RBC 3.99 M/mm3 (4.00-5.60); RDW 14.9 % (11.9-15.9); WHITE BLOOD COUNT 9.6 K/mm3 (4.0-10.0)
[2017-02-23 10:37] LABS: ALBUMIN 3.6 g/dl (3.4-5.0); ANION GAP 12 (8-16); BILIRUBIN,TOTAL 0.6 mg/dL (0.2-1.0); BLOOD UREA NITROGEN 25 mg/dL (7-18); CALCIUM 8.9 mg/dL (8.5-10.1); CHLORIDE 103 mmol/L (98-107); CO2 21 mmol/L (21-32); CREATININE 1.5 mg/dL (0.7-1.3); GLUCOSE,RANDOM 149 mg/dL (74-106); POTASSIUM 4.4 mmol/L (3.5-5.1); SGOT/AST 21 U/L (15-37); SGPT/ALT 32 U/L (12-78); SODIUM 136 mmol/L (136-145); TOT PROT 7.7 g/dl (6.4-8.2)
[2017-02-23 10:39] LABS: ALK PHOS 156 U/L (45-117); N-TERMINAL BNP 709.32 pg/ml (5-125)
[2017-02-23] MEDS ORDERED: methylPREDNISolone NA SUCC 125 MG/2 ML VIAL IVPUSH ONE (11:05)
[2017-02-23] MEDS ORDERED: methylPREDNISolone NA SUCC 125 MG/2 ML VIAL ONE (11:17)
[2017-02-23] MEDS ORDERED: NIFEdipine E.R 60 MG TABLET (UD) PO SCH ×3 (11:45→22:00)
[2017-02-23] MEDS ORDERED: VALSARTAN 160 MG TABLET (UD) PO SCH (11:45)
[2017-02-23] MEDS ORDERED: hydrALAZINE HCL 20 MG/ML VIAL IVPUSH ONE (11:46)
[2017-02-23] MEDS ORDERED: hydrALAZINE HCL 20 MG/ML VIAL ONE (12:23)
--- NOTE | 2017-02-23 13:24 | HP ---
CHIEF COMPLAINT: shortness of breath PCP: Dr. Hernandez HISTORY OF PRESENT ILLNESS: This is a 56 year old male with PMHx of HTN, hyperlipidemia, medication non- adherence, NV x3 (no cardiac stents), systolic CHF, NIDDM, asthma, cocaine use, who presented to the ED with shortness of breath that began last night. The patient reports he was at home when he began to notice shortness of breath when he walked and a productive cough with yellowish sputum. The patient reports he was not able to catch his breath because he was coughing so much. He denies any fever, chills, or sick contacts. He reports he used his inhaler at home with no relief (showed me he used his symbicort as rescue). The patient denies any chest pain, palpitations, dizziness, headache, nausea, vomiting, diarrhea, leg swelling. ER course was notable for: (1) Temp 98.2, pulse 117, BP 174/120, resp 24, O2 94% on RA (2) Cr 1.5 (3) BNP 709 (4) Chest x-ray: large heart, unfolded aorta, no acute chest pathology Recent Travel: denies PAST MEDICAL HISTORY: as above PAST SURGICAL HISTORY: denies Social History: Smokin.5 cigarettes/day Alcohol: 1 beer every other day Drugs: Cocaine (last use 5 weeks ago), marijuana (last use 3 weeks ago) Family History: Allergies IRMA Inhibitors Allergy (Verified 02/23/17 09:14) HOME MEDICATIONS: Home Medications Medication Instructions Recorded Aspirin [Lo-Dose Aspirin EC] 81 mg PO DAILY #10 tablet. 11/22/16 Atorvastatin Ca [Lipitor] 40 mg PO HS #10 tablet 11/22/16 Furosemide [Lasix -] 40 mg PO DAILY #10 tablet 11/22/16 Hydralazine HCl [Apresoline -] 100 mg PO TID #30 tablet 11/22/16 Valsartan [Diovan] 320 mg PO DAILY #10 tablet 11/22/16 Budesonide/Formeterol Fumarate 1 inh PO DAILY 02/23/17 [SYMBICORT 160/4.5mcg -] Glipizide Xl [Glucotrol Xl -] 5 mg PO BID 02/23/17 Nifedipine ER [Procardia XL -] 60 mg PO DAILY 02/23/17 REVIEW OF SYSTEMS CONSTITUTIONAL: Absent: fever, chills, diaphoresis, generalized weakness, malaise, loss of appetite, weight change HEENT: Rhinorrhea started yesterday. Absent: nasal congestion, throat pain, throat swelling, difficulty swallowing, mouth swelling, ear pain, eye pain, visual changes CARDIOVASCULAR: Absent: chest pain, syncope, palpitations, irregular heart rate , lightheadedness, peripheral edema RESPIRATORY: + cough with yellow sputum and shortness of breath with wheezing that starting yesterday evening. Absent: orthopnea, wheezing, stridor, hemoptysis GASTROINTESTINAL:Absent: abdominal pain, abdominal distension, nausea, vomiting , diarrhea, constipation, melena, hematochezia GENITOURINARY: Absent: dysuria, frequency, urgency, hesitancy, hematuria, flank pain, genital pain MUSCULOSKELETAL: Absent: myalgia, arthralgia, joint swelling, back pain, neck pain SKIN: Absent: rash, itching, pallor HEMATOLOGIC/IMMUNOLOGIC: Absent: easy bleeding, easy bruising, lymphadenopathy, frequent infections ENDOCRINE:Absent: unexplained weight gain, unexplained weight loss, heat intolerance, cold intolerance NEUROLOGIC: Absent: headache, focal weakness or paresthesias, dizziness, unsteady gait, seizure, mental status changes, bladder or bowel incontinence PSYCHIATRIC: Absent: anxiety, depression, suicidal or homicidal ideation, hallucinations. PHYSICAL EXAMINATION Vital Signs - 24 hr 02/23/17 02/23/17 02/23/17 09:12 09:56 10:03 Temperature Pulse Rate 121 H Pulse Rate [ 117 H Apical] Respiratory 24 24 Rate Blood Pressure 167/121 Blood Pressure 174/120 [Left Arm] O2 Sat by Pulse 96 94 L 94 L Oximetry (%) 02/23/17 02/23/17 10:33 12:34 Temperature 98.2 F Pulse Rate Pulse Rate [ 107 H 104 H Apical] Respiratory 24 18 Rate Blood Pressure Blood Pressure 165/114 164/104 [Left Arm] O2 Sat by Pulse 98 98 Oximetry (%) GENERAL: Awake, alert, and fully oriented, on bipap HEAD: Normal with no signs of trauma. EYES: Pupils equal, round and reactive to light, extraocular movements intact, sclera anicteric, conjunctiva clear. No lid lag. EARS, NOSE, THROAT: Ears normal, nares patent, oropharynx clear without exudates. Moist mucous membranes. NECK: Normal range of motion, supple without lymphadenopathy, JVD, or masses. LUNGS: Breath sounds equal, clear to auscultation bilaterally. No wheezes, and no crackles. No accessory muscle use. HEART: Regular rate and rhythm, normal S1 and S2 without murmur, rub or gallop. ABDOMEN: Soft, nontender, not distended, normoactive bowel sounds, no guarding, no rebound, no masses. No hepatomegaly or splenomegaly. MUSCULOSKELETAL: Normal range of motion at all joints. No bony deformities or tenderness. No CVA tenderness. UPPER EXTREMITIES: 2+ pulses, warm, well-perfused. No cyanosis. No clubbing. No peripheral edema. LOWER EXTREMITIES: 2+ pulses, warm, well-perfused. No calf tenderness. No peripheral edema. NEUROLOGICAL: Cranial nerves II-XII intact. Normal speech. Normal gait. PSYCHIATRIC: Cooperative. Good eye contact. Appropriate mood and affect. SKIN: Warm, dry, normal turgor, no rashes or lesions noted, normal capillary refill. Laboratory Results - last 24 hr 02/23/17 02/23/17 02/23/17 09:50 09:50 09:55 WBC 9.6 RBC 3.99 L Hgb 11.5 L Hct 36.2 MCV 90.7 MCH 28.9 MCHC 31.9 L RDW 14.9 Plt Count 328 MPV 7.0 L Neutrophils % 78.8 Lymphocytes % 9.6 Monocytes % 8.3 Eosinophils % 2.7 D Basophils % 0.6 Sodium 136 Potassium 4.4 Chloride 103 Carbon Dioxide 21 Anion Gap 12 BUN 25 H D Creatinine 1.5 H Creat Clearance w eGFR 48.59 Random Glucose 149 H D Lactic Acid 1.0 Calcium 8.9 Total Bilirubin 0.6 AST 21 D ALT 32 D Alkaline Phosphatase 156 H Creatine Kinase 260 Creatine Kinase Index 0.8 CK-MB (CK-2) 2.219 Troponin I 0.04 D B-Natriuretic Peptide 709.32 H Total Protein 7.7 Albumin 3.6 Assessment: This is a 56 year old male with PMHx of HTN, hyperlipidemia, medication non-adherence, NV x3 (no cardiac stents), systolic heart failure, NIDDM, asthma, cocaine use, who presented to the ED with shortness of breath that began last night. Plan: 1) Shortness of breath - Likely 2/2 to acute asthma exacerbation vs. viral bronchitis (no wbc, fever, chills) - Cannot rule out possible PE, d-dimer elevated. Will start Lovenox 110mg sq bid (no dose adjustment needed as CrCl 39). F/u lower extremity doppler to r/o DVT. F/u pulmonary consult for V/Q scan. Will hold off on CTA chest given CKD and hx of heart failure as we will not be able to give IV hydration prior to or after contrast - Influenza A&B negative - Chest x-ray with no acute pathology - Given Solu-medrol 125mg IV in the ED - Will continue Solu-medrol 40mg IV q8h - Continue Symbicort - Continue Duonebs - Trend troponins - F/u pulmonary consult 2) Cardiology: Hypertensive urgency - Hx of medication non-adherence - Last admission 11/22/16: was on Diovan 320mg daily, Aldactone 50mg daily, Procardia XL 60mg bid, Imdur 30mg daily, hydralazine 100mg tid, lasix 40mg daily - Will resume those medications - Given hydralazine IV in the ED, monitor BP closely - F/u cardiology consult (patient does not have outpatient leguillon debeader) Chronic systolic and diastolic heart failure - Appears euvolemic now - Continue Lasix - Medications as above - Previous ECHO from 08/2016 reviewed CAD s/p NV x3 - Continue ASA - Continue Lipitor 4) CKD stage 3 - At baseline - Continue to monitor creatinine 5) NIDDM - [facility] ACHS - ISS ACHS 6) Continuous polysubstance abuse - Patient reports last use of cocaine was about 5 weeks ago - Counseled on need for drug abstinence and explained the risks of cocaine use with HTN and cardiac disease as well as interaction with required medications. Patient verbalizes and understanding of the risks. Will continue to avoid beta blockers due to cocaine use - Patient refusing a nicotine patch at this time - No signs of acute alcohol withdrawal, continue to monitor 7) F/E/N: - NPO while on bipap - Sodium controlled, diabetic diet - Monitor electrolytes 8) Prophylaxis: - OOB ambulating as tolerated - Heparin 5,000u sq tid 9) Dispo: - Requires continued inpatient care CODE STATUS: FULL CODE Problem List - Problem (1) Asthma exacerbation Code(s): J45.901 - UNSPECIFIED ASTHMA WITH (ACUTE) EXACERBATION Qualifiers: Asthma severity: severe Asthma persistence: persistent Qualified Code(s) : J45.51 - Severe persistent asthma with (acute) exacerbation Visit type - Emergency Visit Emergency Visit: Yes ED Registration Date: 02/23/17 Care time: The patient presented to the Emergency Department on the above date and was hospitalized for further evaluation of their emergent condition. - New Patient This patient is new to me today: Yes Date on this admission: 02/23/17 - Critical Care Critical Care patient: No
[2017-02-23] MEDS ORDERED: HEPARIN NA (PORCINE) 5,000 UNITS/ML 1ML VIAL SQ SCH (14:00)
--- NOTE | 2017-02-23 14:12 | EKG ---
Test Reason : Blood Pressure : / mmHG Vent. Rate : 114 BPM Atrial Rate : 114 BPM P-R Int : 174 ms QRS Dur : 080 ms QT Int : 392 ms P-R-T Axes : 063 018 059 degrees QTc Int : 540 ms SINUS TACHYCARDIA POSSIBLE LEFT ATRIAL ENLARGEMENT PROLONGED QT ABNORMAL ECG WHEN COMPARED WITH ECG OF 12-JAN-2017 10:22, NONSPECIFIC T WAVE ABNORMALITY, WORSE IN INFERIOR LEADS BASELINE ARTIFACT RECOMMEND REPEAT TRACING Confirmed by SOPHIA CHILDRESS, JOSEPH ([id number]) on 02/23/2017 2:11:25 PM Referred By: Confirmed By:JOSEPH CORTES MD
[2017-02-23] MEDS: ALBUTEROL SO4 2.5/IPRATROPIUM 0.5 INH SOL 3 ML VIAL.NEB. NEB SCH ×3 (14:41→22:17)
[2017-02-23] MEDS: hydrALAZINE HCL 50 MG TABLET (FP) PO SCH ×3 (15:09→21:44)
[2017-02-23] MEDS: INSULIN SLIDING SCALE (NOVOLOG) 1 VIAL SQ SCH ×2 (17:30→21:50)
[2017-02-23] MEDS: ENOXAPARIN NA (PORCINE) 100 MG/1 ML DISP.SYRIN SQ SCH ×2 (17:31→21:45)
[2017-02-23] MEDS: methylPREDNISolone NA SUCC 40 MG/1 ML VIAL IVPUSH SCH (17:32)
[2017-02-23] MEDS: ATORVASTATIN CA 40 MG TABLET (FP) PO SCH (21:45)
[2017-02-23] MEDS: NIFEdipine E.R 60 MG TABLET (UD) PO SCH (21:45)
[2017-02-24] MEDS: guaiFENesin 200 MG/10 ML 10 ML UNIT-DOSE CUPS PO PRN ×2 (00:10→23:25)
[2017-02-24] MEDS: ALBUTEROL SO4 2.5/IPRATROPIUM 0.5 INH SOL 3 ML VIAL.NEB. NEB SCH ×6 (02:23→22:35)
[2017-02-24] MEDS: methylPREDNISolone NA SUCC 40 MG/1 ML VIAL IVPUSH SCH ×3 (02:27→17:44)
[2017-02-24] MEDS: INSULIN SLIDING SCALE (NOVOLOG) 1 VIAL SQ SCH ×4 (06:16→21:26)
[2017-02-24] MEDS: hydrALAZINE HCL 50 MG TABLET (FP) PO SCH ×3 (06:16→21:22)
[2017-02-24 08:04] LABS: HEMATOCRIT 33.9 % (35.4-49); HEMOGLOBIN 10.6 GM/dL (11.7-16.9); MCH 28.8 pg (25.7-33.7); MCHC 31.4 g/dl (32.0-35.9); MEAN CELL VOLUME 91.9 fl (80-96); MEAN PLT VOLUME 7.5 fl (7.5-11.1); PLATELET COUNT 321 K/MM3 (134-434); RBC 3.69 M/mm3 (4.00-5.60); RDW 15.1 % (11.9-15.9); WHITE BLOOD COUNT 9.1 K/mm3 (4.0-10.0)
[2017-02-24 08:26] LABS: CHLORIDE 101 mmol/L (98-107); POTASSIUM 4.3 mmol/L (3.5-5.1); SODIUM 133 mmol/L (136-145)
[2017-02-24] MEDS ORDERED: ALBUTEROL SO4 0.083% IH SOL 2.5 MG/3 ML VIAL.NEB. NEB ONE (08:26)
[2017-02-24 08:35] LABS: ALBUMIN 3.4 g/dl (3.4-5.0); ALK PHOS 148 U/L (45-117); ANION GAP 9 (8-16); BILIRUBIN,TOTAL 0.6 mg/dL (0.2-1.0); BLOOD UREA NITROGEN 20 mg/dL (7-18); CALCIUM 8.7 mg/dL (8.5-10.1); CO2 23 mmol/L (21-32); CREATININE 1.4 mg/dL (0.7-1.3); MAGNESIUM 2.3 mg/dL (1.8-2.4); PHOSPHOROUS 3.6 mg/dL (2.5-4.9); SGOT/AST 16 U/L (15-37); SGPT/ALT 28 U/L (12-78); TOT PROT 7.6 g/dl (6.4-8.2)
[2017-02-24] MEDS: VALSARTAN 160 MG TABLET (UD) PO SCH (09:01)
[2017-02-24] MEDS: SPIRONOLACTONE 25 MG TABLET (FP) PO SCH (09:01)
[2017-02-24] MEDS: ASPIRIN COATED 81 MG TABLET.EC PO SCH (09:02)
[2017-02-24] MEDS: FUROSEMIDE 40 MG TABLET (FP) PO SCH (09:02)
[2017-02-24] MEDS: ISOSORBIDE MONONITRATE 30 MG TAB.SR.24H (FP) PO SCH (09:02)
[2017-02-24] MEDS: NIFEdipine E.R 60 MG TABLET (UD) PO SCH ×2 (09:03→21:23)
[2017-02-24] MEDS: ENOXAPARIN NA (PORCINE) 100 MG/1 ML DISP.SYRIN SQ SCH (09:03)
[2017-02-24 09:10] LABS: GLUCOSE,RANDOM 352 mg/dL (74-106)
[2017-02-24] MEDS ORDERED: BUDESONIDE/FORMETEROL FUMARATE 160/4.5 mcg INHALER IH SCH (10:00)
--- NOTE | 2017-02-24 11:53 | PN ---
Progress Note (short form) - Note Progress Note: Subjective: The patient was seen and examined at the bedside, he reports he is feeling better today and his breathing has improved Current Medications Generic Name Dose Route Start Last Admin Trade Name Rody PRN Reason Stop Dose Admin Albuterol/Ipratropium 1 amp 02/23/17 14:00 02/24/17 10:20 Duoneb - NEB 1 amp Q4HPO PUSHPA Administration Aspirin 81 mg 02/24/17 10:00 02/24/17 09:02 Ecotrin - PO 81 mg DAILY PUSHPA Administration Atorvastatin Calcium 40 mg 02/23/17 22:00 02/23/17 21:45 Lipitor - PO 40 mg HS PUSHPA Administration Budesonide/Formoterol Fumarate 1 puff 02/24/17 10:00 02/24/17 11:59 Symbicort 160/4.5mcg - IH 1 puff DAILY PUSHPA Administration Enoxaparin Sodium 110 mg 02/23/17 16:15 02/24/17 09:03 Lovenox - SQ 110 mg BID PUSHPA Administration Furosemide 40 mg 02/24/17 10:00 02/24/17 09:02 Lasix - PO 40 mg DAILY PUSHPA Administration Guaifenesin 10 ml 02/23/17 23:58 02/24/17 00:10 Robitussin - PO 10 ml Q4H PRN Administration COUGH Hydralazine HCl 100 mg 02/23/17 14:00 02/24/17 06:16 Apresoline - PO 100 mg TID PUSHPA Administration Insulin Aspart 1 vial 02/23/17 16:30 02/24/17 11:58 Novolog Vial Sliding Scale - SQ 10 units ACHS PUSHPA Administration Protocol Isosorbide Mononitrate 30 mg 02/24/17 10:00 02/24/17 09:02 Imdur - PO 30 mg DAILY PUSHPA Administration Methylprednisolone Sodium Succinate 40 mg 02/23/17 18:00 02/24/17 09:03 Solu-Medrol - IVPUSH 40 mg Q8H-IV PUSHPA Administration Nifedipine 60 mg 02/23/17 22:00 02/24/17 09:03 Procardia Xl - PO 60 mg BID PUSHPA Administration Spironolactone 50 mg 02/24/17 10:00 02/24/17 09:01 Aldactone - PO 50 mg DAILY PUSHPA Administration Valsartan 320 mg 02/24/17 10:00 02/24/17 09:01 Diovan - PO 320 mg DAILY PUSHPA Administration Objective: Vital Signs Period Temp Pulse Resp BP Sys/Caal Pulse Ox Last 24 Hr 97.1 F-98.0 F 101-108 18-22 147-180/84-106 94-100 Physical Exam: General: NAD, A&Ox3 Lungs: B/l rhonchi, diminished breath sounds with end expiratory wheezing Heart: RRR, S1S2 Abd: Soft, non-tender, non-distended. Normoactive bowel sounds Ext: Warm, well-perfused CBCD WBC 9.1 K/mm3 (4.0-10.0) 02/24/17 07:34 RBC 3.69 M/mm3 (4.00-5.60) L 02/24/17 07:34 Hgb 10.6 GM/dL (11.7-16.9) L 02/24/17 07:34 Hct 33.9 % (35.4-49) L 02/24/17 07:34 MCV 91.9 fl (80-96) 02/24/17 07:34 MCHC 31.4 g/dl (32.0-35.9) L 02/24/17 07:34 RDW 15.1 % (11.9-15.9) 02/24/17 07:34 Plt Count 321 K/MM3 (134-434) 02/24/17 07:34 MPV 7.5 fl (7.5-11.1) 02/24/17 07:34 CMP Sodium 133 mmol/L (136-145) L 02/24/17 07:34 Potassium 4.3 mmol/L (3.5-5.1) 02/24/17 07:34 Chloride 101 mmol/L (98-107) 02/24/17 07:34 Carbon Dioxide 23 mmol/L (21-32) 02/24/17 07:34 Anion Gap 9 (8-16) 02/24/17 07:34 BUN 20 mg/dL (7-18) H 02/24/17 07:34 Creatinine 1.4 mg/dL (0.7-1.3) H 02/24/17 07:34 Creat Clearance w eGFR 52.62 (>60) 02/24/17 07:34 Random Glucose 352 mg/dL (74-106) H* D 02/24/17 07:34 Calcium 8.7 mg/dL (8.5-10.1) 02/24/17 07:34 Total Bilirubin 0.6 mg/dL (0.2-1.0) 02/24/17 07:34 AST 16 U/L (15-37) D 02/24/17 07:34 ALT 28 U/L (12-78) 02/24/17 07:34 Alkaline Phosphatase 148 U/L (45-117) H 02/24/17 07:34 Total Protein 7.6 g/dl (6.4-8.2) 02/24/17 07:34 Albumin 3.4 g/dl (3.4-5.0) 02/24/17 07:34 CARDIAC ENZYMES Creatine Kinase 179 IU/L (39-308) 02/24/17 07:34 Troponin I < 0.02 ng/ml (0.00-0.05) 02/24/17 07:34 Microbiology 02/23/17 12:45 Nasopharyngeal Swab Influenza Types A,B Antigen (SHYANN) - Final 02/23/17 12:45 Nasopharyngeal Swab - Final Assessment: This is a 56 year old male with PMHx of HTN, hyperlipidemia, medication non-adherence, NC x3 (no cardiac stents), systolic heart failure, NIDDM, asthma, cocaine use, who presented to the ED with shortness of breath that began last night. Plan: 1) Shortness of breath - Likely 2/2 to acute asthma exacerbation vs. viral bronchitis (no wbc, fever, chills) - Elevated d-dimer, lower extremity doppler negative for DVT. Discussed with Dr. Azar who states low probability for PE, can discontinue Lovenox, no need for V/Q scan at this time - Influenza A&B negative - Chest x-ray with no acute pathology - Given Solu-medrol 125mg IV in the ED - Will continue Solu-medrol 40mg IV q8h - Continue Symbicort - Continue Duonebs - Appreciate pulmonary consult 2) Cardiology: Hypertensive urgency - Hx of medication non-adherence - Last admission 11/22/16: was on Diovan 320mg daily, Aldactone 50mg daily, Imdur 30mg daily, hydralazine 100mg tid, lasix 40mg daily - Change Procardia XL to Norvasc - Consider adding Coreg, however patient has history of cocaine use so will hold off for now - Appreciate cardiology consult Chronic systolic and diastolic heart failure - Appears euvolemic now - Continue Lasix - Medications as above - Previous ECHO from 08/2016 reviewed CAD s/p NC x3 - Trop x3 negative - Continue ASA - Continue Lipitor 4) CKD stage 3 - At baseline - Continue to monitor creatinine 5) NIDDM - [facility] ACHS - ISS ACHS 6) Continuous polysubstance abuse - Patient reports last use of cocaine was about 5 weeks ago - Counseled on need for drug abstinence and explained the risks of cocaine use with HTN and cardiac disease as well as interaction with required medications. Patient verbalizes and understanding of the risks. Will continue to avoid beta blockers due to cocaine use - Patient refusing a nicotine patch at this time - No signs of acute alcohol withdrawal, continue to monitor 7) F/E/N: - Sodium controlled, diabetic diet - Monitor electrolytes 8) Prophylaxis: - OOB ambulating as tolerated - Heparin 5,000u sq tid 9) Dispo: - Requires continued inpatient care CODE STATUS: FULL CODE Problem List - Problems (1) Asthma exacerbation Code(s): J45.901 - UNSPECIFIED ASTHMA WITH (ACUTE) EXACERBATION Qualifiers: Asthma severity: severe Asthma persistence: persistent Qualified Code(s) : J45.51 - Severe persistent asthma with (acute) exacerbation Visit type - Emergency Visit Emergency Visit: Yes ED Registration Date: 02/23/17 Care time: The patient presented to the Emergency Department on the above date and was hospitalized for further evaluation of their emergent condition. - New Patient This patient is new to me today: No - Critical Care Critical Care patient: No
--- NOTE | 2017-02-24 14:11 | CON.PULM ---
Consult Consult Specialty:: PULM/CCM Referred by:: HALIE Reason for Consultation:: SOB - History of Present Illness Chief Complaint: SOB History of Present Illness: 56 M, supposed Asthma, history of cocaine abuse (3 admissions last year where toxicology +), HTN, hyperlipidemia, medication non-adherence, SC x3 (no cardiac stents), systolic CHF, and NIDDM. Admitted via the ER due to progressive SOB x 1 to 2 days. He reports concomitant productive cough with yellow sputum, but no hemoptysis. Reports using his Symbicort for rescue. He was placed on NIPPV for respiratory distress. No apparent travel history or sick contacts. CXR: cardiomegaly, no acute infiltrate, possible minimal pleural effusion - History Source History Provided By: Patient Limitations to Obtaining History: No Limitations - Past Medical History Cardio/Vascular: Yes: HTN, Hyperlipdemia, SC Gastrointestinal: Yes: GERD Renal/: Yes: Renal Inusuff Musculoskeletal: Yes: Chronic low back pain Additional Medical History: rt achilles tendon tear. rt testicular torsion - Alcohol/Substance Use Hx Alcohol Use: Yes (beer) Number of Drinks Daily: 3 (beer) History of Substance Use: reports: Cocaine - Smoking History Smoking history: Current every day smoker Have you smoked in the past 12 months: Yes Aproximately how many cigarettes per day: 3 - Social History ADL: Independent Occupation: Employed History of Recent Travel: No Home Medications - Allergies Allergies/Adverse Reactions: Allergies Allergy/AdvReac Type Severity Reaction Status Date / Time IRMA Inhibitors Allergy Verified 02/23/17 09:14 - Home Medications Home Medications: Ambulatory Orders Aspirin [Lo-Dose Aspirin EC] 81 mg PO DAILY #10 tablet. 11/22/16 Atorvastatin Ca [Lipitor] 40 mg PO HS #10 tablet 11/22/16 Furosemide [Lasix -] 40 mg PO DAILY #10 tablet 11/22/16 Hydralazine HCl [Apresoline -] 100 mg PO TID #30 tablet 11/22/16 Valsartan [Diovan] 320 mg PO DAILY #10 tablet 11/22/16 Budesonide/Formeterol Fumarate [SYMBICORT 160/4.5mcg -] 1 inh PO DAILY 02/23/17 Glipizide Xl [Glucotrol Xl -] 5 mg PO BID 02/23/17 Nifedipine ER [Procardia XL -] 60 mg PO DAILY 02/23/17 Family Disease History - Family Disease History Family Disease History: Diabetes: Sister, Other: Brother (DRUGS) Review of Systems - Review of Systems Constitutional: reports: Malaise, Weakness. denies: Chills, Fever, Night Sweats , Unintentional Wgt. Loss Eyes: reports: No Symptoms HENT: reports: Nasal Congestion. denies: Ear Pain, Epistaxis, Throat Pain, Toothache, Ringing in Ears Neck: reports: No Symptoms Cardiovascular: reports: Shortness of Breath. denies: Chest Pain, Palpitations Respiratory: reports: Cough, Exercise Intolerance, Snoring, SOB, SOB on Exertion , Wheezing. denies: Hemoptysis Gastrointestinal: reports: No Symptoms Genitourinary: reports: No Symptoms Breasts: reports: No Symptoms Reported Musculoskeletal: reports: No Symptoms Integumentary: reports: No Symptoms Neurological: reports: No Symptoms Endocrine: reports: No Symptoms Hematology/Lymphatic: reports: No Symptoms Psychiatric: reports: No Symptoms Physical Exam Vital Sings: Vital Signs Temperature 98 F 02/24/17 10:00 Pulse Rate 105 H 02/24/17 10:00 Respiratory Rate 02/24/17 10:00 Blood Pressure 147/88 02/24/17 10:00 O2 Sat by Pulse Oximetry (%) 100 02/24/17 09:00 Constitutional: Yes: No Distress, Obese Eyes: Yes: Conjunctiva Clear, EOM Intact HENT: Yes: Atraumatic, Normocephalic Neck: Yes: Supple, Trachea Midline Cardiovascular: Yes: Regular Rate and Rhythm Respiratory: Yes: Cough, Diminished, On Venti-Mask, Rhonchi, SOB, Tachypnea, Wheezes. No: Accessory Muscle Use, Stridor ...Inspection: Yes: WNL ...Clubbing: No Gastrointestinal: Yes: Normal Bowel Sounds, Soft, Abdomen, Obese Renal/: Yes: WNL Musculoskeletal: Yes: WNL Extremities: Yes: WNL Edema: Yes Peripheral Pulses WNL: Yes Integumentary: Yes: WNL Neurological: Yes: WNL, Alert, Oriented ...Motor Strength: WNL Psychiatric: Yes: WNL, Alert, Oriented Labs: CBC, BMP 02/24/17 07:34 02/24/17 07:34 Imaging - Results Chest X-ray: Report Reviewed, Image Reviewed Problem List - Problems (1) Pleural effusion Code(s): J90 - PLEURAL EFFUSION, NOT ELSEWHERE CLASSIFIED (2) Asthma exacerbation Code(s): J45.901 - UNSPECIFIED ASTHMA WITH (ACUTE) EXACERBATION Qualifiers: Asthma severity: severe Asthma persistence: persistent Qualified Code(s) : J45.51 - Severe persistent asthma with (acute) exacerbation (3) Cocaine abuse Code(s): F14.10 - COCAINE ABUSE, UNCOMPLICATED (4) Tobacco use Code(s): Z72.0 - TOBACCO USE (5) Acute on chronic diastolic (congestive) heart failure Code(s): I50.33 - ACUTE ON CHRONIC DIASTOLIC (CONGESTIVE) HEART FAILURE (6) Diabetes Code(s): E11.9 - TYPE 2 DIABETES MELLITUS WITHOUT COMPLICATIONS Qualifiers: Diabetes mellitus type: type 2 Chronic kidney disease stage: stage 2 (mild ) (7) HTN (hypertension) Code(s): I10 - ESSENTIAL (PRIMARY) HYPERTENSION Qualifiers: Hypertension type: essential hypertension Qualified Code(s): I10 - Essential (primary) hypertension (8) History of myocardial infarction Code(s): I25.2 - OLD MYOCARDIAL INFARCTION (9) Hyperlipidemia Code(s): E78.5 - HYPERLIPIDEMIA, UNSPECIFIED Qualifiers: Hyperlipidemia type: pure hypercholesterolemia Qualified Code(s): E78.00 - Pure hypercholesterolemia, unspecified Assessment/Plan Check U tox Medrol BD TX Would monitor ABX for now Duoneb Q4 Lasix VM O2 NIPPV if needed Will follow Dr Azar
--- NOTE | 2017-02-24 14:20 | CON.CARD ---
Consult Consult Specialty:: Cardiology Referred by:: Hospitalist Reason for Consultation:: Cardiac evaluation - History of Present Illness Chief Complaint: Shortness of breath History of Present Illness: Patient is a 56 year old male with underlying history of bronchial asthma, coronary artery disease s/p PCI/stent, CA, history of ACS, hypertension, NIDDM, non-ischemic dilated cardiomopathy with congestive heart failure, systolic/diastolic left ventricular dysfinction and substance abuse ( cocaine) who presents to ED with shortness of breath and wheezing. He denies chest pain or palpitations. He denies fever or chlls. He denies paroxsmal nocturnal dysopea of orthopnea. He denies fever or chills. He denies nausea, vomiting, diarrhea or abdominal pain. He denies headache or lightheadedness. - History Source History Provided By: Patient, Medical Record Limitations to Obtaining History: No Limitations - Past Medical History Cardio/Vascular: Yes: CAD (S/P PCI), HTN, Hyperlipdemia, CA, Other (dilated cardiomyopathy (nonischemic), LV systolic dysfunction, ) Gastrointestinal: Yes: GERD Renal/: Yes: Renal Inusuff Musculoskeletal: Yes: Chronic low back pain Additional Medical History: rt achilles tendon tear. rt testicular torsion - Past Surgical History Additional Surgical History: Testicular torsion - Alcohol/Substance Use Hx Alcohol Use: Yes (beer) Number of Drinks Daily: 3 (beer) History of Substance Use: reports: Cocaine - Smoking History Smoking history: Current every day smoker Have you smoked in the past 12 months: Yes Aproximately how many cigarettes per day: 3 - Social History ADL: Independent Occupation: Employed History of Recent Travel: No Home Medications - Allergies Allergies/Adverse Reactions: Allergies Allergy/AdvReac Type Severity Reaction Status Date / Time IRMA Inhibitors Allergy Verified 02/23/17 09:14 - Home Medications Home Medications: Ambulatory Orders Aspirin [Lo-Dose Aspirin EC] 81 mg PO DAILY #10 tablet. 11/22/16 Atorvastatin Ca [Lipitor] 40 mg PO HS #10 tablet 11/22/16 Furosemide [Lasix -] 40 mg PO DAILY #10 tablet 11/22/16 Hydralazine HCl [Apresoline -] 100 mg PO TID #30 tablet 11/22/16 Valsartan [Diovan] 320 mg PO DAILY #10 tablet 11/22/16 Budesonide/Formeterol Fumarate [SYMBICORT 160/4.5mcg -] 1 inh PO DAILY 02/23/17 Glipizide Xl [Glucotrol Xl -] 5 mg PO BID 02/23/17 Nifedipine ER [Procardia XL -] 60 mg PO DAILY 02/23/17 Family Disease History - Family Disease History Family Disease History: Diabetes: Sister, Other: Brother (DRUGS) Other Family History: History of CAD, HTN, diabetes mellitus Review of Systems - Review of Systems Constitutional: denies: Chills, Fever Cardiovascular: denies: Chest Pain, Palpitations, Shortness of Breath Respiratory: denies: Cough, Hemoptysis, Orthopnea, PND, SOB, SOB on Exertion Gastrointestinal: denies: Abdominal Pain, Constipation, Diarrhea, Melena, Nausea , Rectal Bleeding, Vomiting Genitourinary: denies: Dysuria, Hematuria, Incontinence Musculoskeletal: denies: Joint Pain Neurological: denies: Dizziness, Headache, Seizure, Syncope, Weakness Vital Signs: Vital Signs Temperature 98 F 02/24/17 10:00 Pulse Rate 105 H 02/24/17 10:00 Respiratory Rate 02/24/17 10:00 Blood Pressure 147/88 02/24/17 10:00 O2 Sat by Pulse Oximetry (%) 100 02/24/17 09:00 Eyes: Yes: PERRL HENT: Yes: Atraumatic Neck: Yes: Supple Respiratory: Yes: Diminished Gastrointestinal: Yes: Normal Bowel Sounds, Soft. No: Tenderness Cardiovascular: Yes: Regular Rate and Rhythm JVD: No Carotid Bruit: No PMI: Non-Displaced Heart Sounds: Yes: S1, S2 Murmur: Yes: Systolic Murmur, Grade 1 Edema: No - Other Data Labs, Other Data: CBC, BMP 02/24/17 07:34 02/24/17 07:34 Troponin, BNP 02/23/17 02/24/17 02/24/17 16:00 07:34 07:34 Troponin I 0.02 D < 0.02 Cancelled Troponin, BNP Imaging - Results Chest X-ray: Report Reviewed (Cardiomegaly) EKG: Report Reviewed Assessment/Plan 1. Clinical presentation compatible with class 2-3 NYHA classification LV failure 2. Acute on chronic LV systolic and diastolic failure 3. Coronary artery disease, history of CA, PCI/stent, history of CA 4. Hypertension 5. Hypercholesterolemia 6. Diabetes mellitus 7. CKD PLAN: 1. Continue Diovan, Hydralazine and change Procardia XL to Amlodipine. 2. Continue Lasix and Aldactone 3. Continue Imdur 4. Continue ASA 5. Consider Carvedilol if tolerated and would be OK despite history of cocaine use. 6. Continue Lipitor 7. Steroid and nebulizer Further plans are to follow Nicholas Singletary MD
[2017-02-24 17:38] LABS: COCAINE, UR NEGATIVE ng/ml (CUTOFF=300); METHADONE, UR NEGATIVE ng/ml (CUTOFF=300); OPIATES, URI NEGATIVE ng/ml (CUTOFF=300); PHENCYCLIDINE,URINE NEGATIVE ng/ml (CUTOFF=25); URINE AMPHETAMINES NEGATIVE ng/ml (CUTOFF=500); URINE BARBITURATES NEGATIVE ng/ml (CUTOFF=200); URINE BENZODIAZEPINES NEGATIVE ng/ml (CUTOFF=200)
[2017-02-24] MEDS: glipiZIDE-XL 5 MG TAB.ER.24 PO SCH (17:43)
[2017-02-24] MEDS: HEPARIN NA (PORCINE) 5,000 UNITS/ML 1ML VIAL SQ SCH (21:23)
[2017-02-24] MEDS: ATORVASTATIN CA 40 MG TABLET (FP) PO SCH (21:23)
[2017-02-24] MEDS: BUDESONIDE/FORMETEROL FUMARATE 160/4.5 mcg INHALER IH SCH (21:24)
[2017-02-25] MEDS: methylPREDNISolone NA SUCC 40 MG/1 ML VIAL IVPUSH SCH ×4 (01:10→21:40)
[2017-02-25] MEDS: ALBUTEROL SO4 2.5/IPRATROPIUM 0.5 INH SOL 3 ML VIAL.NEB. NEB SCH ×6 (02:25→22:21)
[2017-02-25] MEDS: HEPARIN NA (PORCINE) 5,000 UNITS/ML 1ML VIAL SQ SCH ×3 (05:50→21:41)
[2017-02-25] MEDS: hydrALAZINE HCL 50 MG TABLET (FP) PO SCH ×3 (05:50→21:41)
[2017-02-25] MEDS: glipiZIDE-XL 5 MG TAB.ER.24 PO SCH ×2 (06:02→17:08)
[2017-02-25] MEDS: INSULIN SLIDING SCALE (NOVOLOG) 1 VIAL SQ SCH ×4 (06:02→21:43)
[2017-02-25 06:17] LABS: HEMATOCRIT 32.2 % (35.4-49); HEMOGLOBIN 10.4 GM/dL (11.7-16.9); MCH 29.6 pg (25.7-33.7); MCHC 32.2 g/dl (32.0-35.9); MEAN CELL VOLUME 91.7 fl (80-96); MEAN PLT VOLUME 7.4 fl (7.5-11.1); PLATELET COUNT 336 K/MM3 (134-434); RBC 3.51 M/mm3 (4.00-5.60); RDW 15.3 % (11.9-15.9); WHITE BLOOD COUNT 10.9 K/mm3 (4.0-10.0)
[2017-02-25 06:39] LABS: ANION GAP 10 (8-16); BLOOD UREA NITROGEN 17 mg/dL (7-18); CALCIUM 8.9 mg/dL (8.5-10.1); CHLORIDE 101 mmol/L (98-107); CO2 24 mmol/L (21-32); CREATININE 1.3 mg/dL (0.7-1.3); GLUCOSE,RANDOM 255 mg/dL (74-106); POTASSIUM 4.6 mmol/L (3.5-5.1); SODIUM 135 mmol/L (136-145)
[2017-02-25] MEDS: FUROSEMIDE 40 MG TABLET (FP) PO SCH (09:47)
[2017-02-25] MEDS: SPIRONOLACTONE 25 MG TABLET (FP) PO SCH (09:47)
[2017-02-25] MEDS: ISOSORBIDE MONONITRATE 30 MG TAB.SR.24H (FP) PO SCH (09:47)
[2017-02-25] MEDS: ASPIRIN COATED 81 MG TABLET.EC PO SCH (09:47)
[2017-02-25] MEDS: VALSARTAN 160 MG TABLET (UD) PO SCH (09:47)
[2017-02-25] MEDS: BUDESONIDE/FORMETEROL FUMARATE 160/4.5 mcg INHALER IH SCH ×2 (09:48→21:45)
[2017-02-25] MEDS: NIFEdipine E.R 60 MG TABLET (UD) PO SCH ×2 (09:48→21:41)
--- NOTE | 2017-02-25 11:07 | PN ---
Progress Note, Physician History of Present Illness: PULMONARY AWAKE,STILL DYSPNEIC,+ COUGH,+ WHEEZING - Current Medication List Current Medications: Active Medications Albuterol/Ipratropium (Duoneb -) 1 amp NEB Q4HPO [facility] Last Admin: 02/25/17 06:35 Dose: 1 amp Aspirin (Ecotrin -) 81 mg PO DAILY [facility] Last Admin: 02/25/17 09:47 Dose: 81 mg Atorvastatin Calcium (Lipitor -) 40 mg PO HS [facility] Last Admin: 02/24/17 21:23 Dose: 40 mg Budesonide/Formoterol Fumarate (Symbicort 160/4.5mcg -) 2 puff IH BID [facility] Last Admin: 02/25/17 09:48 Dose: 2 puff Furosemide (Lasix -) 40 mg PO DAILY [facility] Last Admin: 02/25/17 09:47 Dose: 40 mg Glipizide (Glucotrol Xl -) 5 mg PO BIDAC [facility] Last Admin: 02/25/17 06:02 Dose: 5 mg Guaifenesin (Robitussin -) 10 ml PO Q4H PRN PRN Reason: COUGH Last Admin: 02/24/17 23:25 Dose: 10 ml Heparin Sodium (Porcine) (Heparin -) 5,000 unit SQ TID [facility] Last Admin: 02/25/17 05:50 Dose: 5,000 unit Hydralazine HCl (Apresoline -) 100 mg PO TID [facility] Last Admin: 02/25/17 05:50 Dose: 100 mg Insulin Aspart (Novolog Vial Sliding Scale -) 1 vial SQ ACHS [facility] PRN Reason: Protocol Last Admin: 02/25/17 06:02 Dose: 6 units Isosorbide Mononitrate (Imdur -) 30 mg PO DAILY [facility] Last Admin: 02/25/17 09:47 Dose: 30 mg Methylprednisolone Sodium Succinate (Solu-Medrol -) 40 mg IVPUSH Q8H-IV [facility] Last Admin: 02/25/17 09:48 Dose: 40 mg Nifedipine (Procardia Xl -) 60 mg PO BID [facility] Last Admin: 02/25/17 09:48 Dose: 60 mg Spironolactone (Aldactone -) 50 mg PO DAILY [facility] Last Admin: 02/25/17 09:47 Dose: 50 mg Valsartan (Diovan -) 320 mg PO DAILY [facility] Last Admin: 02/25/17 09:47 Dose: 320 mg - Objective Vital Signs: Vital Signs Temperature 98 F 02/25/17 10:00 Pulse Rate 108 H 02/25/17 10:00 Respiratory Rate 20 02/25/17 10:00 Blood Pressure 168/94 02/25/17 10:00 O2 Sat by Pulse Oximetry (%) 100 02/25/17 09:00 Constitutional: Yes: Calm, Obese, Other (DYSPNEIC) Eyes: Yes: WNL HENT: Yes: WNL Neck: Yes: WNL Cardiovascular: Yes: Regular Rate and Rhythm, S1, S2 Respiratory: Yes: Wheezes (BILATERAL WHEEZES) Gastrointestinal: Yes: Normal Bowel Sounds, Soft Extremities: Yes: WNL Edema: Yes Labs: CBC, BMP 02/25/17 06:05 02/25/17 06:05 Assessment/Plan Problem List - Problems (1) Pleural effusion Code(s): J90 - PLEURAL EFFUSION, NOT ELSEWHERE CLASSIFIED (2) Asthma exacerbation Code(s): J45.901 - UNSPECIFIED ASTHMA WITH (ACUTE) EXACERBATION Qualifiers: Asthma severity: severe Asthma persistence: persistent Qualified Code(s) : J45.51 - Severe persistent asthma with (acute) exacerbation (3) Cocaine abuse Code(s): F14.10 - COCAINE ABUSE, UNCOMPLICATED (4) Tobacco use Code(s): Z72.0 - TOBACCO USE (5) Acute on chronic diastolic (congestive) heart failure Code(s): I50.33 - ACUTE ON CHRONIC DIASTOLIC (CONGESTIVE) HEART FAILURE (6) Diabetes Code(s): E11.9 - TYPE 2 DIABETES MELLITUS WITHOUT COMPLICATIONS Qualifiers: Diabetes mellitus type: type 2 Chronic kidney disease stage: stage 2 (mild ) (7) HTN (hypertension) Code(s): I10 - ESSENTIAL (PRIMARY) HYPERTENSION Qualifiers: Hypertension type: essential hypertension Qualified Code(s): I10 - Essential (primary) hypertension (8) History of myocardial infarction Code(s): I25.2 - OLD MYOCARDIAL INFARCTION (9) Hyperlipidemia Code(s): E78.5 - HYPERLIPIDEMIA, UNSPECIFIED Qualifiers: Hyperlipidemia type: pure hypercholesterolemia Qualified Code(s): E78.00 - Pure hypercholesterolemia, unspecified Assessment/Plan Medrol will increase to q6h BD TX Duoneb Q4 Lasix VM O2 NIPPV if needed Chest ct DR DOYLE
--- NOTE | 2017-02-25 11:58 | PN ---
Progress Note, Physician History of Present Illness: Cough, dyspnea, wheezes improving. - Current Medication List Current Medications: Active Medications Albuterol/Ipratropium (Duoneb -) 1 amp NEB Q4HPO [facility] Last Admin: 02/25/17 06:35 Dose: 1 amp Aspirin (Ecotrin -) 81 mg PO DAILY [facility] Last Admin: 02/25/17 09:47 Dose: 81 mg Atorvastatin Calcium (Lipitor -) 40 mg PO HS [facility] Last Admin: 02/24/17 21:23 Dose: 40 mg Budesonide/Formoterol Fumarate (Symbicort 160/4.5mcg -) 2 puff IH BID [facility] Last Admin: 02/25/17 09:48 Dose: 2 puff Furosemide (Lasix -) 40 mg PO DAILY [facility] Last Admin: 02/25/17 09:47 Dose: 40 mg Glipizide (Glucotrol Xl -) 5 mg PO BIDAC [facility] Last Admin: 02/25/17 06:02 Dose: 5 mg Guaifenesin (Robitussin -) 10 ml PO Q4H PRN PRN Reason: COUGH Last Admin: 02/24/17 23:25 Dose: 10 ml Heparin Sodium (Porcine) (Heparin -) 5,000 unit SQ TID [facility] Last Admin: 02/25/17 05:50 Dose: 5,000 unit Hydralazine HCl (Apresoline -) 100 mg PO TID [facility] Last Admin: 02/25/17 05:50 Dose: 100 mg Insulin Aspart (Novolog Vial Sliding Scale -) 1 vial SQ ACHS [facility] PRN Reason: Protocol Last Admin: 02/25/17 11:44 Dose: 10 units Isosorbide Mononitrate (Imdur -) 30 mg PO DAILY [facility] Last Admin: 02/25/17 09:47 Dose: 30 mg Methylprednisolone Sodium Succinate (Solu-Medrol -) 60 mg IVPUSH Q6H-IV [facility] Nifedipine (Procardia Xl -) 60 mg PO BID [facility] Last Admin: 02/25/17 09:48 Dose: 60 mg Spironolactone (Aldactone -) 50 mg PO DAILY [facility] Last Admin: 02/25/17 09:47 Dose: 50 mg Valsartan (Diovan -) 320 mg PO DAILY [facility] Last Admin: 02/25/17 09:47 Dose: 320 mg - Objective Vital Signs: Vital Signs Temperature 98 F 02/25/17 10:00 Pulse Rate 108 H 02/25/17 10:00 Respiratory Rate 20 02/25/17 10:00 Blood Pressure 168/94 02/25/17 10:00 O2 Sat by Pulse Oximetry (%) 100 02/25/17 09:00 Constitutional: Yes: No Distress, Calm Neck: Yes: Supple Cardiovascular: Yes: Tachycardia Respiratory: Yes: Regular, Cough, Diminished, Wheezes Gastrointestinal: Yes: Normal Bowel Sounds, Soft Edema: No Labs: CBC, BMP 02/25/17 06:05 02/25/17 06:05 - ....Imaging EKG: Report Reviewed (Sinus tachycardia) Problem List - Problems (1) Asthma exacerbation Code(s): J45.901 - UNSPECIFIED ASTHMA WITH (ACUTE) EXACERBATION Qualifiers: Asthma severity: severe Asthma persistence: persistent Qualified Code(s) : J45.51 - Severe persistent asthma with (acute) exacerbation (2) Shortness of breath Code(s): R06.02 - SHORTNESS OF BREATH (3) CKD (chronic kidney disease) stage 3, GFR 30-59 ml/min Code(s): N18.3 - CHRONIC KIDNEY DISEASE, STAGE 3 (MODERATE) (4) Diabetes Code(s): E11.9 - TYPE 2 DIABETES MELLITUS WITHOUT COMPLICATIONS Qualifiers: Diabetes mellitus type: type 2 Diabetes mellitus continuous churn buttermaker insulin use: without care home use Chronic kidney disease stage: stage 2 (mild) (5) HTN (hypertension) Code(s): I10 - ESSENTIAL (PRIMARY) HYPERTENSION Qualifiers: Hypertension type: essential hypertension Qualified Code(s): I10 - Essential (primary) hypertension (6) History of myocardial infarction Code(s): I25.2 - OLD MYOCARDIAL INFARCTION (7) Hyperlipidemia Code(s): E78.5 - HYPERLIPIDEMIA, UNSPECIFIED Qualifiers: Hyperlipidemia type: pure hypercholesterolemia Qualified Code(s): E78.00 - Pure hypercholesterolemia, unspecified (8) Diastolic dysfunction without heart failure Code(s): I51.9 - HEART DISEASE, UNSPECIFIED Assessment/Plan 1. Acute asthma exacerbation 2. Diastolic dysfunction 3. Coronary artery disease, history of ME, PCI/stent, history of ME 4. Hypertension 5. Hypercholesterolemia 6. Diabetes mellitus 7. CKD PLAN: 1. Continue Diovan 320 qd, Hydralazine 100 tid and Procardia XL 60 bid. 2. Continue Lasix 40 qd and Aldactone 50 qd 3. Continue Imdur 30 qd 4. Continue ASA 81 qd 5. Continue Lipitor 40 qhs 6. Steroid, nebulizer, O2, f/u chest CT 7. DVT prophylaxis
--- NOTE | 2017-02-25 16:51 | PN ---
Progress Note (short form) - Note Progress Note: Subjective: The patient was seen and examined at the bedside, he reports he is feeling better today and was seen ambulating around the hallways Increased Solu-medrol to 60mg q6h Hyperglycemia, start Levemir Current Medications Generic Name Dose Route Start Last Admin Trade Name Freq PRN Reason Stop Dose Admin Albuterol/Ipratropium 1 amp 02/23/17 14:00 02/25/17 14:00 Duoneb - NEB 1 amp Q4HPO PUSHPA Administration Aspirin 81 mg 02/24/17 10:00 02/25/17 09:47 Ecotrin - PO 81 mg DAILY PUSHPA Administration Atorvastatin Calcium 40 mg 02/23/17 22:00 02/24/17 21:23 Lipitor - PO 40 mg HS PUSHPA Administration Budesonide/Formoterol Fumarate 2 puff 02/24/17 22:00 02/25/17 09:48 Symbicort 160/4.5mcg - IH 2 puff BID PUSHPA Administration Furosemide 40 mg 02/24/17 10:00 02/25/17 09:47 Lasix - PO 40 mg DAILY PUSHPA Administration Glipizide 5 mg 02/24/17 16:30 02/25/17 06:02 Glucotrol Xl - PO 5 mg BIDAC PUSHPA Administration Guaifenesin 10 ml 02/23/17 23:58 02/24/17 23:25 Robitussin - PO 10 ml Q4H PRN Administration COUGH Heparin Sodium (Porcine) 5,000 unit 02/24/17 22:00 02/25/17 14:03 Heparin - SQ 5,000 unit TID PUSHPA Administration Hydralazine HCl 100 mg 02/23/17 14:00 02/25/17 14:03 Apresoline - PO 100 mg TID PUSHPA Administration Insulin Aspart 1 vial 02/24/17 13:53 02/25/17 11:44 Novolog Vial Sliding Scale - SQ 10 units ACHS PUSHPA Administration Protocol Insulin Detemir 5 units 02/25/17 22:00 Levemir Vial SQ HS PUSHPA Isosorbide Mononitrate 30 mg 02/24/17 10:00 02/25/17 09:47 Imdur - PO 30 mg DAILY PUSHPA Administration Methylprednisolone Sodium Succinate 60 mg 02/25/17 15:00 02/25/17 15:26 Solu-Medrol - IVPUSH 60 mg Q6H-IV PUSHPA Administration Nifedipine 60 mg 02/23/17 22:00 02/25/17 09:48 Procardia Xl - PO 60 mg BID PUSHPA Administration Spironolactone 50 mg 02/24/17 10:00 02/25/17 09:47 Aldactone - PO 50 mg DAILY PUSHPA Administration Valsartan 320 mg 02/24/17 10:00 02/25/17 09:47 Diovan - PO 320 mg DAILY PUSHPA Administration Objective: Vital Signs Period Temp Pulse Resp BP Sys/Caal Pulse Ox Last 24 Hr 97.4 F-98.7 F 88-108 20-20 123-168/71-95 98-100 Physical Exam: General: NAD, A&Ox3 Lungs: B/l rhonchi, diminished breath sounds with end expiratory wheezing Heart: RRR, S1S2 Abd: Soft, non-tender, non-distended. Normoactive bowel sounds Ext: Warm, well-perfused CBCD WBC 10.9 K/mm3 (4.0-10.0) H 02/25/17 06:05 RBC 3.51 M/mm3 (4.00-5.60) L 02/25/17 06:05 Hgb 10.4 GM/dL (11.7-16.9) L 02/25/17 06:05 Hct 32.2 % (35.4-49) L 02/25/17 06:05 MCV 91.7 fl (80-96) 02/25/17 06:05 MCHC 32.2 g/dl (32.0-35.9) 02/25/17 06:05 RDW 15.3 % (11.9-15.9) 02/25/17 06:05 Plt Count 336 K/MM3 (134-434) 02/25/17 06:05 MPV 7.4 fl (7.5-11.1) L 02/25/17 06:05 CMP Sodium 135 mmol/L (136-145) L 02/25/17 06:05 Potassium 4.6 mmol/L (3.5-5.1) 02/25/17 06:05 Chloride 101 mmol/L (98-107) 02/25/17 06:05 Carbon Dioxide 24 mmol/L (21-32) 02/25/17 06:05 Anion Gap 10 (8-16) 02/25/17 06:05 BUN 17 mg/dL (7-18) 02/25/17 06:05 Creatinine 1.3 mg/dL (0.7-1.3) 02/25/17 06:05 Creat Clearance w eGFR 52.62 (>60) 02/24/17 07:34 Random Glucose 255 mg/dL (74-106) H D 02/25/17 06:05 Calcium 8.9 mg/dL (8.5-10.1) 02/25/17 06:05 Total Bilirubin 0.6 mg/dL (0.2-1.0) 02/24/17 07:34 AST 16 U/L (15-37) D 02/24/17 07:34 ALT 28 U/L (12-78) 02/24/17 07:34 Alkaline Phosphatase 148 U/L (45-117) H 02/24/17 07:34 Total Protein 7.6 g/dl (6.4-8.2) 02/24/17 07:34 Albumin 3.4 g/dl (3.4-5.0) 02/24/17 07:34 CARDIAC ENZYMES Creatine Kinase 179 IU/L (39-308) 02/24/17 07:34 Troponin I < 0.02 ng/ml (0.00-0.05) 02/24/17 07:34 Microbiology 02/23/17 18:00 Sputum - Expectorated Gram Stain - Final 02/23/17 18:00 Sputum - Expectorated Sputum Culture - Preliminary NORMAL RESPIRATORY RAS 02/23/17 12:45 Nasopharyngeal Swab Influenza Types A,B Antigen (SHYANN) - Final 02/23/17 12:45 Nasopharyngeal Swab - Final Assessment: This is a 56 year old male with PMHx of HTN, hyperlipidemia, medication non-adherence, [place] x3 (no cardiac stents), systolic heart failure, NIDDM, asthma, cocaine use, who presented to the ED with shortness of breath that began last night. Plan: 1) Shortness of breath - Likely 2/2 to acute asthma exacerbation vs. viral bronchitis (no wbc, fever, chills) - Elevated d-dimer, lower extremity doppler negative for DVT. Discussed with Dr. Azar who states low probability for PE, Lovenox discontinued, no need for V/Q scan at this time per pulmonary - Influenza A&B negative - Chest x-ray with no acute pathology - Will increase Solu-medrol 60mg IV q6h - Continue Symbicort - Continue Duonebs - F/u Chest CT - Appreciate pulmonary consult 2) Cardiology: Hypertensive urgency - Hx of medication non-adherence - Last admission 11/22/16: was on Diovan 320mg daily, Aldactone 50mg daily, Imdur 30mg daily, hydralazine 100mg tid, lasix 40mg daily - Continue Procardia XL - Start Coreg, discussed with Dr. Ro - Appreciate cardiology consult Chronic systolic and diastolic heart failure - Appears euvolemic now - Continue Lasix - Medications as above - Previous ECHO from 08/2016 reviewed CAD s/p [place] x3 - Trop x3 negative - Continue ASA - Continue Lipitor 4) CKD stage 3 - At baseline - Continue to monitor creatinine 5) NIDDM - Uncontrolled - Will add Levemir tonight - Stop Glipizide - BGM ACHS - ISS ACHS 6) Continuous polysubstance abuse - Patient reports last use of cocaine was about 5 weeks ago - Counseled on need for drug abstinence and explained the risks of cocaine use with HTN and cardiac disease as well as interaction with required medications. Patient verbalizes and understanding of the risks. Will continue to avoid beta blockers due to cocaine use - Patient refusing a nicotine patch at this time - No signs of acute alcohol withdrawal, continue to monitor 7) F/E/N: - Sodium controlled, diabetic diet - Monitor electrolytes 8) Prophylaxis: - OOB ambulating as tolerated - Heparin 5,000u sq tid 9) Dispo: - Requires continued inpatient care CODE STATUS: FULL CODE Problem List - Problems (1) Asthma exacerbation Code(s): J45.901 - UNSPECIFIED ASTHMA WITH (ACUTE) EXACERBATION Qualifiers: Asthma severity: severe Asthma persistence: persistent Qualified Code(s) : J45.51 - Severe persistent asthma with (acute) exacerbation Visit type - Emergency Visit Emergency Visit: Yes ED Registration Date: 02/23/17 Care time: The patient presented to the Emergency Department on the above date and was hospitalized for further evaluation of their emergent condition. - New Patient This patient is new to me today: No - Critical Care Critical Care patient: No
[2017-02-25] MEDS: CARVEDILOL 6.25 MG TABLET (FP) PO SCH ×2 (17:42→21:41)
[2017-02-25] MEDS: ATORVASTATIN CA 40 MG TABLET (FP) PO SCH (21:41)
[2017-02-25] MEDS: INSULIN DETEMIR 100 UNITS/ML MDV SQ SCH (21:44)
[2017-02-26] MEDS: ALBUTEROL SO4 2.5/IPRATROPIUM 0.5 INH SOL 3 ML VIAL.NEB. NEB SCH ×6 (02:32→22:11)
[2017-02-26] MEDS: methylPREDNISolone NA SUCC 40 MG/1 ML VIAL IVPUSH SCH ×4 (03:49→21:20)
[2017-02-26] MEDS: HEPARIN NA (PORCINE) 5,000 UNITS/ML 1ML VIAL SQ SCH ×3 (06:10→21:49)
[2017-02-26] MEDS: INSULIN SLIDING SCALE (NOVOLOG) 1 VIAL SQ SCH ×4 (06:11→22:07)
[2017-02-26] MEDS: hydrALAZINE HCL 50 MG TABLET (FP) PO SCH ×3 (06:12→21:49)
[2017-02-26 08:14] LABS: ALBUMIN 3.5 g/dl (3.4-5.0); ANION GAP 10 (8-16); BLOOD UREA NITROGEN 22 mg/dL (7-18); CALCIUM 9.9 mg/dL (8.5-10.1); CHLORIDE 95 mmol/L (98-107); CO2 28 mmol/L (21-32); CREATININE 1.4 mg/dL (0.7-1.3); GLUCOSE,RANDOM 284 mg/dL (74-106); POTASSIUM 4.5 mmol/L (3.5-5.1); SGOT/AST 17 U/L (15-37); SGPT/ALT 30 U/L (12-78); SODIUM 133 mmol/L (136-145)
[2017-02-26 08:16] LABS: ALK PHOS 135 U/L (45-117); BILIRUBIN,TOTAL 0.7 mg/dL (0.2-1.0); TOT PROT 7.9 g/dl (6.4-8.2)
[2017-02-26 08:25] LABS: HEMATOCRIT 34.6 % (35.4-49); HEMOGLOBIN 10.9 GM/dL (11.7-16.9); MCH 28.8 pg (25.7-33.7); MCHC 31.6 g/dl (32.0-35.9); MEAN CELL VOLUME 91.4 fl (80-96); MEAN PLT VOLUME 7.9 fl (7.5-11.1); PLATELET COUNT 378 K/MM3 (134-434); RBC 3.79 M/mm3 (4.00-5.60); RDW 15.1 % (11.9-15.9); WHITE BLOOD COUNT 13.2 K/mm3 (4.0-10.0)
[2017-02-26] MEDS: NIFEdipine E.R 60 MG TABLET (UD) PO SCH ×2 (09:48→21:48)
[2017-02-26] MEDS: VALSARTAN 160 MG TABLET (UD) PO SCH (09:48)
[2017-02-26] MEDS: FUROSEMIDE 40 MG TABLET (FP) PO SCH (09:48)
[2017-02-26] MEDS: CARVEDILOL 6.25 MG TABLET (FP) PO SCH ×2 (09:48→21:49)
[2017-02-26] MEDS: SPIRONOLACTONE 25 MG TABLET (FP) PO SCH (09:48)
[2017-02-26] MEDS: ASPIRIN COATED 81 MG TABLET.EC PO SCH (09:48)
[2017-02-26] MEDS: ISOSORBIDE MONONITRATE 30 MG TAB.SR.24H (FP) PO SCH (09:48)
[2017-02-26] MEDS: BUDESONIDE/FORMETEROL FUMARATE 160/4.5 mcg INHALER IH SCH ×2 (10:03→21:51)
--- NOTE | 2017-02-26 12:00 | PN ---
Progress Note (short form) - Note Progress Note: PULMONARY AMBULATING IN HALLWAY NO RESP DIFFICULTY OBSERVED NO COUGHING NOTED VSS/AFEBRILE ANICTERIC CLEAR B/L LUNG MCDOWELL NO WHEEZE/RHONCHI APPRECIATED S1S2 OBESE NO EDEMA LABS/CT/NOTES/MEDS/MICRO REVIEWED CT CHEST WITH B/L NODULAR SCATTERED INFILTRATES COULD BE C/W BRONCHIOLITIS NO PREVIOUS CT CHEST DONE FOR COMPARISON CT ABD DONE 2016 DID NOT REVEAL ANY INFILTRATES IN THE PORTION OF LUNG VISUALIZED (1) Pleural effusion Code(s): J90 - PLEURAL EFFUSION, NOT ELSEWHERE CLASSIFIED (2) Asthma exacerbation Code(s): J45.901 - UNSPECIFIED ASTHMA WITH (ACUTE) EXACERBATION Qualifiers: Asthma severity: severe Asthma persistence: persistent Qualified Code(s) : J45.51 - Severe persistent asthma with (acute) exacerbation (3) Cocaine abuse Code(s): F14.10 - COCAINE ABUSE, UNCOMPLICATED (4) Tobacco use Code(s): Z72.0 - TOBACCO USE (5) Acute on chronic diastolic (congestive) heart failure Code(s): I50.33 - ACUTE ON CHRONIC DIASTOLIC (CONGESTIVE) HEART FAILURE (6) Diabetes Code(s): E11.9 - TYPE 2 DIABETES MELLITUS WITHOUT COMPLICATIONS Qualifiers: Diabetes mellitus type: type 2 Chronic kidney disease stage: stage 2 (mild ) (7) HTN (hypertension) Code(s): I10 - ESSENTIAL (PRIMARY) HYPERTENSION Qualifiers: Hypertension type: essential hypertension Qualified Code(s): I10 - Essential (primary) hypertension (8) History of myocardial infarction Code(s): I25.2 - OLD MYOCARDIAL INFARCTION (9) Hyperlipidemia Code(s): E78.5 - HYPERLIPIDEMIA, UNSPECIFIED Qualifiers: Hyperlipidemia type: pure hypercholesterolemia Qualified Code(s): E78.00 - Pure hypercholesterolemia, unspecified Assessment/Plan Steroids to be changed to oral BD TX Duoneb Q4 Lasix VM O2 NIPPV if needed Would start antibiotics Will need outpatient f/u ct chest suggest ID consult Terri MULLIGAN MD
--- NOTE | 2017-02-26 13:27 | PN ---
Progress Note, Physician History of Present Illness: Cough, dyspnea, wheezes improving. - Current Medication List Current Medications: Active Medications Albuterol/Ipratropium (Duoneb -) 1 amp NEB Q4HPO [facility] Last Admin: 02/26/17 10:11 Dose: 1 amp Aspirin (Ecotrin -) 81 mg PO DAILY [facility] Last Admin: 02/26/17 09:48 Dose: 81 mg Atorvastatin Calcium (Lipitor -) 40 mg PO HS [facility] Last Admin: 02/25/17 21:41 Dose: 40 mg Budesonide/Formoterol Fumarate (Symbicort 160/4.5mcg -) 2 puff IH BID [facility] Last Admin: 02/26/17 10:03 Dose: 2 puff Carvedilol (Coreg -) 6.25 mg PO BID [facility] Last Admin: 02/26/17 09:48 Dose: 6.25 mg Furosemide (Lasix -) 40 mg PO DAILY [facility] Last Admin: 02/26/17 09:48 Dose: 40 mg Guaifenesin (Robitussin -) 10 ml PO Q4H PRN PRN Reason: COUGH Last Admin: 02/24/17 23:25 Dose: 10 ml Heparin Sodium (Porcine) (Heparin -) 5,000 unit SQ TID [facility] Last Admin: 02/26/17 06:10 Dose: 5,000 unit Hydralazine HCl (Apresoline -) 100 mg PO TID [facility] Last Admin: 02/26/17 06:12 Dose: 100 mg Insulin Aspart (Novolog Vial Sliding Scale -) 1 vial SQ [facility] PRN Reason: Protocol Last Admin: 02/26/17 11:14 Dose: 10 units Insulin Detemir (Levemir Vial) 5 units SQ [facility] Last Admin: 02/25/17 21:44 Dose: 5 units Isosorbide Mononitrate (Imdur -) 30 mg PO DAILY [facility] Last Admin: 02/26/17 09:48 Dose: 30 mg Methylprednisolone Sodium Succinate (Solu-Medrol -) 60 mg IVPUSH Q6H-IV [facility] Last Admin: 02/26/17 09:47 Dose: 60 mg Nifedipine (Procardia Xl -) 60 mg PO BID [facility] Last Admin: 02/26/17 09:48 Dose: 60 mg Spironolactone (Aldactone -) 50 mg PO DAILY [facility] Last Admin: 02/26/17 09:48 Dose: 50 mg Valsartan (Diovan -) 320 mg PO DAILY [facility] Last Admin: 02/26/17 09:48 Dose: 320 mg - Objective Vital Signs: Vital Signs Temperature 98.2 F 02/26/17 08:37 Pulse Rate 89 02/26/17 10:08 Respiratory Rate 18 02/26/17 08:37 Blood Pressure 150/90 02/26/17 08:37 O2 Sat by Pulse Oximetry (%) 99 02/26/17 10:08 Constitutional: Yes: No Distress, Calm Neck: Yes: Supple Cardiovascular: Yes: Regular Rate and Rhythm Respiratory: Yes: Regular, Diminished Gastrointestinal: Yes: Normal Bowel Sounds, Soft Edema: No Labs: CBC, BMP 02/26/17 06:00 02/26/17 06:00 Problem List - Problems (1) Asthma exacerbation Code(s): J45.901 - UNSPECIFIED ASTHMA WITH (ACUTE) EXACERBATION Qualifiers: Asthma severity: severe Asthma persistence: persistent Qualified Code(s) : J45.51 - Severe persistent asthma with (acute) exacerbation (2) Shortness of breath Code(s): R06.02 - SHORTNESS OF BREATH (3) CKD (chronic kidney disease) stage 3, GFR 30-59 ml/min Code(s): N18.3 - CHRONIC KIDNEY DISEASE, STAGE 3 (MODERATE) (4) Diabetes Code(s): E11.9 - TYPE 2 DIABETES MELLITUS WITHOUT COMPLICATIONS Qualifiers: Diabetes mellitus type: type 2 Diabetes mellitus snf insulin use: 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 Chronic kidney disease stage: stage 2 (mild) (5) HTN (hypertension) Code(s): I10 - ESSENTIAL (PRIMARY) HYPERTENSION Qualifiers: Hypertension type: essential hypertension Qualified Code(s): I10 - Essential (primary) hypertension (6) History of myocardial infarction Code(s): I25.2 - OLD MYOCARDIAL INFARCTION (7) Hyperlipidemia Code(s): E78.5 - HYPERLIPIDEMIA, UNSPECIFIED Qualifiers: Hyperlipidemia type: pure hypercholesterolemia Qualified Code(s): E78.00 - Pure hypercholesterolemia, unspecified (8) Diastolic dysfunction without heart failure Code(s): I51.9 - HEART DISEASE, UNSPECIFIED Assessment/Plan 1. Acute asthma exacerbation, bronchiolitis 2. Diastolic dysfunction 3. Coronary artery disease, history of [place], PCI/stent, history of [place] 4. Hypertension 5. Hypercholesterolemia 6. Diabetes mellitus 7. CKD PLAN: 1. Continue Diovan 320 qd, Hydralazine 100 tid and Procardia XL 60 bid. 2. Continue Lasix 40 qd and Aldactone 50 qd 3. Continue Imdur 30 qd and carvedilol 6.25 bid 4. Continue ASA 81 qd 5. Continue Lipitor 40 qhs 6. Oral steroid taper, nebulizer, O2, f/u outpatient chest CT 7. DVT prophylaxis, d/c planning
[2017-02-26] MEDS ORDERED: CARVEDILOL 6.25 MG TABLET (FP) PO SCH (17:21)
--- NOTE | 2017-02-26 18:35 | PN ---
Physical Exam: SUBJECTIVE: Patient seen and examined. No events overnight. OBJECTIVE: Vital Signs Period Temp Pulse Resp BP Sys/Caal Pulse Ox Last 24 Hr 98.1 F-98.2 F 87-94 18-20 142-172/80-106 94-99 GENERAL: The patient is awake, alert, and fully oriented, in no acute distress. LUNGS: Bibasilar rhonchi present. HEART: Regular rate and rhythm, S1, S2 without murmur, rub or gallop. ABDOMEN: SNTND NEUROLOGICAL: Cranial nerves II through XII grossly intact. Normal speech, gait not observed. SKIN: Warm, dry Laboratory Results - last 24 hr 02/25/17 02/26/17 02/26/17 21:43 06:00 06:00 WBC 13.2 H RBC 3.79 L Hgb 10.9 L Hct 34.6 L MCV 91.4 MCH 28.8 MCHC 31.6 L RDW 15.1 Plt Count 378 MPV 7.9 Sodium 133 L Potassium 4.5 Chloride 95 L Carbon Dioxide 28 Anion Gap 10 BUN 22 H D Creatinine 1.4 H Creat Clearance w eGFR 52.62 POC Glucometer 340 Random Glucose 284 H Calcium 9.9 Total Bilirubin 0.7 AST 17 ALT 30 Alkaline Phosphatase 135 H Total Protein 7.9 Albumin 3.5 02/26/17 02/26/17 06:09 11:06 WBC RBC Hgb Hct MCV MCH MCHC RDW Plt Count MPV Sodium Potassium Chloride Carbon Dioxide Anion Gap BUN Creatinine Creat Clearance w eGFR POC Glucometer 277 396 Random Glucose Calcium Total Bilirubin AST ALT Alkaline Phosphatase Total Protein Albumin Active Medications Generic Name Dose Route Start Last Admin Trade Name Markyq PRN Reason Stop Dose Admin Albuterol/Ipratropium 1 amp 02/23/17 14:00 02/26/17 18:20 Duoneb - NEB 1 amp Q4HPO PUSHPA Administration Aspirin 81 mg 02/24/17 10:00 02/26/17 09:48 Ecotrin - PO 81 mg DAILY PUSHPA Administration Atorvastatin Calcium 40 mg 02/23/17 22:00 02/25/17 21:41 Lipitor - PO 40 mg HS PUSHPA Administration Budesonide/Formoterol Fumarate 2 puff 02/24/17 22:00 02/26/17 10:03 Symbicort 160/4.5mcg - IH 2 puff BID [facility]SUHPA Administration Carvedilol 6.25 mg 02/25/17 17:45 02/26/17 09:48 Coreg - PO 6.25 mg BID PUSHPA Administration Furosemide 40 mg 02/24/17 10:00 02/26/17 09:48 Lasix - PO 40 mg DAILY PUSHPA Administration Guaifenesin 10 ml 02/23/17 23:58 02/24/17 23:25 Robitussin - PO 10 ml Q4H PRN Administration COUGH Heparin Sodium (Porcine) 5,000 unit 02/24/17 22:00 02/26/17 14:34 Heparin - SQ 5,000 unit TID PUSHPA Administration Hydralazine HCl 100 mg 02/23/17 14:00 02/26/17 14:34 Apresoline - PO 100 mg TID PUSHPA Administration Insulin Aspart 1 vial 02/24/17 13:53 02/26/17 17:23 Novolog Vial Sliding Scale - SQ 10 units ACHS PUSHPA Administration Protocol Insulin Detemir 5 units 02/25/17 22:00 02/25/17 21:44 Levemir Vial SQ 5 units HS PUSHPA Administration Isosorbide Mononitrate 30 mg 02/24/17 10:00 02/26/17 09:48 Imdur - PO 30 mg DAILY PUSHPA Administration Methylprednisolone Sodium Succinate 60 mg 02/25/17 15:00 02/26/17 14:34 Solu-Medrol - IVPUSH 60 mg Q6H-IV PUSHPA Administration Nifedipine 60 mg 02/23/17 22:00 02/26/17 09:48 Procardia Xl - PO 60 mg BID PUSHPA Administration Spironolactone 50 mg 02/24/17 10:00 02/26/17 09:48 Aldactone - PO 50 mg DAILY PUSHPA Administration Valsartan 320 mg 02/24/17 10:00 02/26/17 09:48 Diovan - PO 320 mg DAILY [facility]USH[facility] Administration ASSESSMENT/PLAN: A: 56 year old male with PMH of HTN, hyperlipidemia, medication non-adherence, [place] x3 (no cardiac stents), systolic heart failure, NIDDM, asthma, cocaine use, who presented to the ED with shortness of breath P: Shortness of breath - Likely 2/2 to acute asthma exacerbation vs. viral bronchitis (no wbc, fever, chills) - Elevated d-dimer, lower extremity doppler negative for DVT. low probability for PE per pulm, no need for V/Q scan at this time per pulmonary - Influenza negative for A and B - Solu-medrol 60mg IV q6h - Symbicort - Duonebs - F/u Chest CT - Pulm following - ID Bobde consult Hypertensive urgency - Continue Procardia XL - Coreg 6.25 - Continue Diovan 320 qd - Hydralazine 100 tid - Procardia XL 60 bid - Lasix 40 qd and - Aldactone 50 qd - Imdur 30 qd d - Cards following Chronic systolic and diastolic heart failure - Appears euvolemic now - Continue Lasix - Medications as above - Previous ECHO from 08/2016 reviewed CAD s/p [place] x3 - Trop x3 negative - Continue ASA - Continue Lipitor CKD - At baseline - trend Cr NIDDM - FSBG ACHS - ISS - Uncontrolled - Levemir started 02/25 - continue to hold Glipizide Continuous polysubstance abuse - No signs of acute alcohol withdrawal, continue to monitor - last cocaine~5 weeks ago - avoid beta blockers due to cocaine use - Smoking cessation counseling offered and refused F/E/N - Low Na ADA diet - Monitor electrolytes PPX - OOB - sqh Dispo- Requires continued inpatient care Visit type - Emergency Visit Emergency Visit: Yes ED Registration Date: 02/23/17 Care time: The patient presented to the Emergency Department on the above date and was hospitalized for further evaluation of their emergent condition. - New Patient This patient is new to me today: No - Critical Care Critical Care patient: No
[2017-02-26] MEDS: ATORVASTATIN CA 40 MG TABLET (FP) PO SCH (21:48)
[2017-02-26] MEDS: INSULIN DETEMIR 100 UNITS/ML MDV SQ SCH (21:50)
[2017-02-27] MEDS: ALBUTEROL SO4 2.5/IPRATROPIUM 0.5 INH SOL 3 ML VIAL.NEB. NEB SCH ×6 (01:36→22:01)
[2017-02-27] MEDS: methylPREDNISolone NA SUCC 40 MG/1 ML VIAL IVPUSH SCH ×2 (02:18→09:34)
[2017-02-27] MEDS: hydrALAZINE HCL 50 MG TABLET (FP) PO SCH ×3 (06:31→21:01)
[2017-02-27] MEDS: HEPARIN NA (PORCINE) 5,000 UNITS/ML 1ML VIAL SQ SCH ×3 (06:31→21:06)
[2017-02-27] MEDS: INSULIN SLIDING SCALE (NOVOLOG) 1 VIAL SQ SCH ×4 (06:32→21:06)
[2017-02-27] MEDS: ISOSORBIDE MONONITRATE 30 MG TAB.SR.24H (FP) PO SCH (09:34)
[2017-02-27] MEDS: FUROSEMIDE 40 MG TABLET (FP) PO SCH (09:34)
[2017-02-27] MEDS: ASPIRIN COATED 81 MG TABLET.EC PO SCH (09:34)
[2017-02-27] MEDS: NIFEdipine E.R 60 MG TABLET (UD) PO SCH ×2 (09:35→21:02)
[2017-02-27] MEDS: CARVEDILOL 6.25 MG TABLET (FP) PO SCH ×2 (09:35→21:02)
[2017-02-27] MEDS: VALSARTAN 160 MG TABLET (UD) PO SCH (09:35)
[2017-02-27] MEDS: SPIRONOLACTONE 25 MG TABLET (FP) PO SCH (09:35)
[2017-02-27] MEDS: BUDESONIDE/FORMETEROL FUMARATE 160/4.5 mcg INHALER IH SCH ×2 (09:40→21:03)
--- NOTE | 2017-02-27 10:38 | CON.ID ---
Consult Consult Specialty:: infectious diseases Reason for Consultation:: pneumonia - History of Present Illness Chief Complaint: cough,sputum production History of Present Illness: 56 M, with, history of cocaine abuse , HTN, hyperlipidemia, medication non- adherence, [place] x3 , systolic CHF, and NIDDM. Patient was admitted because he became sob since last couple of days.Patient mentions that he is producing yellow sputum ,denies any other color or hemoptysis patient still with yellow sputum production needing oxygen, patient has no sick contacts - History Source History Provided By: Patient, Medical Record Limitations to Obtaining History: Poor Historian - Past Medical History Cardio/Vascular: Yes: CAD (S/P PCI), HTN, Hyperlipdemia, [place], Other (dilated cardiomyopathy (nonischemic), LV systolic dysfunction, ) Gastrointestinal: Yes: GERD Renal/: Yes: Renal Inusuff Musculoskeletal: Yes: Chronic low back pain Additional Medical History: rt achilles tendon tear. rt testicular torsion - Past Surgical History Additional Surgical History: Testicular torsion - Alcohol/Substance Use Hx Alcohol Use: Yes (beer) Number of Drinks Daily: 3 (beer) History of Substance Use: reports: Cocaine - Smoking History Smoking history: Current every day smoker Have you smoked in the past 12 months: Yes Aproximately how many cigarettes per day: 3 - Social History ADL: Independent Occupation: Employed History of Recent Travel: No Home Medications - Allergies Allergies/Adverse Reactions: Allergies Allergy/AdvReac Type Severity Reaction Status Date / Time IRMA Inhibitors Allergy Verified 02/23/17 09:14 - Home Medications Home Medications: Ambulatory Orders Aspirin [Lo-Dose Aspirin EC] 81 mg PO DAILY #10 tablet. 11/22/16 Atorvastatin Ca [Lipitor] 40 mg PO HS #10 tablet 11/22/16 Furosemide [Lasix -] 40 mg PO DAILY #10 tablet 11/22/16 Hydralazine HCl [Apresoline -] 100 mg PO TID #30 tablet 11/22/16 Valsartan [Diovan] 320 mg PO DAILY #10 tablet 11/22/16 Budesonide/Formeterol Fumarate [SYMBICORT 160/4.5mcg -] 1 inh PO DAILY 02/23/17 Glipizide Xl [Glucotrol Xl -] 5 mg PO BID 02/23/17 Nifedipine ER [Procardia XL -] 60 mg PO DAILY 02/23/17 Family Disease History - Family Disease History Family Disease History: Diabetes: Sister, Other: Brother (DRUGS) Other Family History: History of CAD, HTN, diabetes mellitus Review of Systems - Review of Systems Constitutional: reports: No Symptoms Eyes: reports: No Symptoms HENT: reports: No Symptoms Neck: reports: No Symptoms Cardiovascular: reports: No Symptoms Respiratory: reports: Cough, Other (sputum production) Gastrointestinal: reports: No Symptoms Genitourinary: reports: No Symptoms Musculoskeletal: reports: No Symptoms Integumentary: reports: No Symptoms Neurological: reports: No Symptoms Endocrine: reports: No Symptoms Hematology/Lymphatic: reports: No Symptoms Psychiatric: reports: No Symptoms Physical Exam Vital Signs: Vital Signs Temperature 97.7 F 02/27/17 09:00 Pulse Rate 79 02/27/17 09:45 Respiratory Rate 18 02/27/17 09:00 Blood Pressure 166/109 02/27/17 09:00 O2 Sat by Pulse Oximetry (%) 98 02/27/17 09:45 Constitutional: Yes: Well Nourished, No Distress, Calm Eyes: Yes: Conjunctiva Clear Cardiovascular: Yes: Regular Rate and Rhythm Respiratory: Yes: On Nasal O2, Poor Air Entry, Wheezes Gastrointestinal: Yes: Normal Bowel Sounds, Soft Musculoskeletal: Yes: WNL Extremities: Yes: WNL Neurological: Yes: Alert, Oriented Psychiatric: Yes: Alert, Oriented Labs: CBC, BMP 02/26/17 06:00 02/26/17 06:00 Imaging - Results Chest X-ray: Report Reviewed, Image Reviewed Cat Scan: Report Reviewed, Image Reviewed Assessment/Plan Problem List - Problems (1) Pleural effusion Code(s): J90 - PLEURAL EFFUSION, NOT ELSEWHERE CLASSIFIED (2) Asthma exacerbation Code(s): J45.901 - UNSPECIFIED ASTHMA WITH (ACUTE) EXACERBATION Qualifiers: Asthma severity: severe Asthma persistence: persistent Qualified Code(s) : J45.51 - Severe persistent asthma with (acute) exacerbation (3) Cocaine abuse Code(s): F14.10 - COCAINE ABUSE, UNCOMPLICATED (4) Tobacco use Code(s): Z72.0 - TOBACCO USE (5) Acute on chronic diastolic (congestive) heart failure Code(s): I50.33 - ACUTE ON CHRONIC DIASTOLIC (CONGESTIVE) HEART FAILURE (6) Diabetes Code(s): E11.9 - TYPE 2 DIABETES MELLITUS WITHOUT COMPLICATIONS Qualifiers: Diabetes mellitus type: type 2 Chronic kidney disease stage: stage 2 (mild ) (7) HTN (hypertension) Code(s): I10 - ESSENTIAL (PRIMARY) HYPERTENSION Qualifiers: Hypertension type: essential hypertension Qualified Code(s): I10 - Essential (primary) hypertension (8) History of myocardial infarction Code(s): I25.2 - OLD MYOCARDIAL INFARCTION (9) Hyperlipidemia Code(s): E78.5 - HYPERLIPIDEMIA, UNSPECIFIED Qualifiers: Hyperlipidemia type: pure hypercholesterolemia Qualified Code(s): E78.00 - Pure hypercholesterolemia, unspecified pneumonia patient looked at and imaging studies looked,patient was watched without abx now patients wbc has started to increase as well as he continues to ahve yellowish sputum production plan i am going to start patient on abx watch wbc rest as per primary team incentive bayron if wbc continues to go up inspite of abx do sputum cx
--- NOTE | 2017-02-27 10:59 | PN ---
Progress Note, Physician History of Present Illness: Cough, dyspnea, wheezes improving. - Current Medication List Current Medications: Active Medications Albuterol/Ipratropium (Duoneb -) 1 amp NEB Q4HPO [facility] Last Admin: 02/27/17 09:47 Dose: 1 amp Aspirin (Ecotrin -) 81 mg PO DAILY [facility] Last Admin: 02/27/17 09:34 Dose: 81 mg Atorvastatin Calcium (Lipitor -) 40 mg PO HS [facility] Last Admin: 02/26/17 21:48 Dose: 40 mg Azithromycin (Zithromax -) 500 mg PO DAILY [facility] Budesonide/Formoterol Fumarate (Symbicort 160/4.5mcg -) 2 puff IH BID [facility] Last Admin: 02/27/17 09:40 Dose: 2 puff Carvedilol (Coreg -) 6.25 mg PO BID [facility] Last Admin: 02/27/17 09:35 Dose: 6.25 mg Furosemide (Lasix -) 40 mg PO DAILY [facility] Last Admin: 02/27/17 09:34 Dose: 40 mg Guaifenesin (Robitussin -) 10 ml PO Q4H PRN PRN Reason: COUGH Last Admin: 02/24/17 23:25 Dose: 10 ml Heparin Sodium (Porcine) (Heparin -) 5,000 unit SQ TID [facility] Last Admin: 02/27/17 06:31 Dose: 5,000 unit Hydralazine HCl (Apresoline -) 100 mg PO TID [facility] Last Admin: 02/27/17 06:31 Dose: 100 mg Ceftriaxone Sodium 1 gm/ (Dextrose) 50 mls @ 100 mls/hr IVPB DAILY [facility] Insulin Aspart (Novolog Vial Sliding Scale -) 1 vial SQ ACHS [facility] PRN Reason: Protocol Last Admin: 02/27/17 06:32 Dose: 10 units Insulin Detemir (Levemir Vial) 5 units SQ HS [facility] Last Admin: 02/26/17 21:50 Dose: 5 units Isosorbide Mononitrate (Imdur -) 30 mg PO DAILY [facility] Last Admin: 02/27/17 09:34 Dose: 30 mg Methylprednisolone Sodium Succinate (Solu-Medrol -) 60 mg IVPUSH Q6H-IV [facility] Last Admin: 02/27/17 09:34 Dose: 60 mg Nifedipine (Procardia Xl -) 60 mg PO BID [facility] Last Admin: 02/27/17 09:35 Dose: 60 mg Spironolactone (Aldactone -) 50 mg PO DAILY [facility] Last Admin: 02/27/17 09:35 Dose: 50 mg Valsartan (Diovan -) 320 mg PO DAILY [facility] Last Admin: 02/27/17 09:35 Dose: 320 mg - Objective Vital Signs: Vital Signs Temperature 97.7 F 02/27/17 09:00 Pulse Rate 79 02/27/17 09:45 Respiratory Rate 18 02/27/17 09:00 Blood Pressure 166/109 02/27/17 09:00 O2 Sat by Pulse Oximetry (%) 98 02/27/17 09:45 Constitutional: Yes: No Distress, Calm Neck: Yes: Supple Cardiovascular: Yes: Regular Rate and Rhythm Respiratory: Yes: Regular, Diminished Gastrointestinal: Yes: Normal Bowel Sounds, Soft Edema: No Labs: CBC, BMP 02/26/17 06:00 02/26/17 06:00 Problem List - Problems (1) Asthma exacerbation Code(s): J45.901 - UNSPECIFIED ASTHMA WITH (ACUTE) EXACERBATION Qualifiers: Qualified Code(s): J45.51 - Severe persistent asthma with (acute) exacerbation (2) Shortness of breath Code(s): R06.02 - SHORTNESS OF BREATH (3) CKD (chronic kidney disease) stage 3, GFR 30-59 ml/min Code(s): N18.3 - CHRONIC KIDNEY DISEASE, STAGE 3 (MODERATE) (4) Diabetes Code(s): E11.9 - TYPE 2 DIABETES MELLITUS WITHOUT COMPLICATIONS Qualifiers: Qualified Code(s): E11.22 - Type 2 diabetes mellitus with diabetic chronic kidney disease; N18.2 - Chronic kidney disease, stage 2 (mild); N18.2 - Chronic kidney disease, stage 2 (mild) (5) HTN (hypertension) Code(s): I10 - ESSENTIAL (PRIMARY) HYPERTENSION Qualifiers: Qualified Code(s): I10 - Essential (primary) hypertension (6) History of myocardial infarction Code(s): I25.2 - OLD MYOCARDIAL INFARCTION (7) Hyperlipidemia Code(s): E78.5 - HYPERLIPIDEMIA, UNSPECIFIED Qualifiers: Qualified Code(s): E78.00 - Pure hypercholesterolemia, unspecified; E78.0 - Pure hypercholesterolemia (8) Diastolic dysfunction without heart failure Code(s): I51.9 - HEART DISEASE, UNSPECIFIED Assessment/Plan 1. Acute asthma exacerbation, bronchiolitis resolving 2. Diastolic dysfunction 3. Coronary artery disease, history of TN, PCI/stent, history of TN 4. Hypertension 5. Hypercholesterolemia 6. Diabetes mellitus 7. CKD PLAN: 1. Continue Diovan 320 qd, Hydralazine 100 tid and Procardia XL 60 bid. 2. Continue Lasix 40 qd and Aldactone 50 qd 3. Continue Imdur 30 qd and carvedilol 6.25 bid 4. Continue ASA 81 qd 5. Continue Lipitor 40 qhs 6. Oral steroid taper, nebulizer, O2, empiric abx, f/u outpatient chest CT 7. DVT prophylaxis, d/c planning
[2017-02-27] MEDS: CEFTRIAXONE 1 G/50 ML PREMIX 50 ML IVPB SCH (12:00)
[2017-02-27] MEDS: AZITHROMYCIN 250 MG TABLET PO SCH (12:00)
--- NOTE | 2017-02-27 12:11 | PN ---
Physical Exam: SUBJECTIVE: Patient seen and examined. He is feeling better, ambulating the halls, denies productive cough. OBJECTIVE: Vital Signs Period Temp Pulse Resp BP Sys/Caal Pulse Ox Last 24 Hr 97.7 F-98.8 F 79-91 18-20 142-166/82-109 95-98 PE Neuro: alert, awake, cn 2-12 intact Pulm: course bs, no cough, no wheezing + nc CV:s1 s2 rrr no mrg Abd: s nt nd + bs Ext: warm, no le edema Laboratory Results - last 24 hr 02/26/17 02/26/17 02/27/17 16:42 21:43 00:02 POC Glucometer 385 458 360 02/27/17 02/27/17 06:30 11:28 POC Glucometer 380 361 Active Medications Generic Name Dose Route Start Last Admin Trade Name Freq PRN Reason Stop Dose Admin Albuterol/Ipratropium 1 amp 02/23/17 14:00 02/27/17 09:47 Duoneb - NEB 1 amp Q4HPO [facility] Administration Aspirin 81 mg 02/24/17 10:00 02/27/17 09:34 Ecotrin - PO 81 mg DAILY [facility] Administration Atorvastatin Calcium 40 mg 02/23/17 22:00 02/26/17 21:48 Lipitor - PO 40 mg HS [facility] Administration Azithromycin 500 mg 02/27/17 11:00 02/27/17 12:00 Zithromax - PO 500 mg DAILY [facility] Administration Budesonide/Formoterol Fumarate 2 puff 02/24/17 22:00 02/27/17 09:40 Symbicort 160/4.5mcg - IH 2 puff BID [facility] Administration Carvedilol 6.25 mg 02/25/17 17:45 02/27/17 09:35 Coreg - PO 6.25 mg BID [facility] Administration Furosemide 40 mg 02/24/17 10:00 02/27/17 09:34 Lasix - PO 40 mg DAILY [facility] Administration Guaifenesin 10 ml 02/23/17 23:58 02/24/17 23:25 Robitussin - PO 10 ml Q4H PRN Administration COUGH Heparin Sodium (Porcine) 5,000 unit 02/24/17 22:00 02/27/17 06:31 Heparin - SQ 5,000 unit TID [facility] Administration Hydralazine HCl 100 mg 02/23/17 14:00 02/27/17 06:31 Apresoline - PO 100 mg TID [facility] Administration CEFTRIAXONE 1 G/50 ML PREMIX 50 mls @ 100 mls/hr 02/27/17 11:00 02/27/17 12: 00 Ceftriaxone 1 Gm-D5w Bag IVPB 100 mls/hr DAILY [facility] Administration Insulin Aspart 1 vial 02/24/17 13:53 02/27/17 11:45 Novolog Vial Sliding Scale - SQ 10 units ACHS [facility] Administration Protocol Insulin Detemir 5 units 02/25/17 22:00 02/26/17 21:50 Levemir Vial SQ 5 units HS [facility] Administration Isosorbide Mononitrate 30 mg 02/24/17 10:00 02/27/17 09:34 Imdur - PO 30 mg DAILY [facility] Administration Methylprednisolone Sodium Succinate 60 mg 02/27/17 22:00 Solu-Medrol - IVPB HS [facility] Nifedipine 60 mg 02/23/17 22:00 02/27/17 09:35 Procardia Xl - PO 60 mg BID [facility] Administration Prednisone 60 mg 02/28/17 10:00 Deltasone - PO DAILY [facility] Spironolactone 50 mg 02/24/17 10:00 02/27/17 09:35 Aldactone - PO 50 mg DAILY [facility] Administration Valsartan 320 mg 02/24/17 10:00 02/27/17 09:35 Diovan - PO 320 mg DAILY [facility] Administration Assessment: 56 year old male with PMHx of HTN, hyperlipidemia, medication non- adherence, [place] x3 (no cardiac stents), systolic heart failure, NIDDM, asthma, cocaine use admitted with shortness of breath . Plan: 1. Shortness of breath - Likely 2/2 to acute asthma exacerbation vs. viral bronchitis - Taper medrol, final IV dose tonight - Start PO prednisone 60mg daily tomorrow - Continue Symbicort - Continue ceftriaxone/azithro (day 1) - Leukocytosis due to steroids partially - Per Pulm low probability for PE, Lovenox discontinued, no need for V/Q scan at this time per pulmonary 2. Hypertensive urgency - Hx of medication non-adherence - Last admission 11/22/16: was on Diovan 320mg daily, Aldactone 50mg daily, Imdur 30mg daily, hydralazine 100mg tid, lasix 40mg daily - Continue Procardia XL - Start Coreg 6.25mg BID 3. Chronic systolic and diastolic heart failure - Not in exacerbation - Continue Lasix - Medications as above - Previous ECHO from 08/2016 reviewed 4. CAD s/p [place] x3 - Trop x3 negative - Continue ASA - Continue Lipitor 5. CKD stage 3 - Slight increase, however likely due to steroids causing elevated BUN - Baseline ~1.5 - Will monitor 6. NIDDM - Uncontrolled - Increase levemir 10units HS - Stop Glipizide - BGM, ISS ACHS 7. Continuous polysubstance abuse - Patient reports last use of cocaine was about 5 weeks ago - Counseled on need for drug abstinence and explained the risks of cocaine use with HTN and cardiac disease as well as interaction with required medications. Patient verbalizes and understanding of the risks. Will continue to avoid beta blockers due to cocaine use - Patient refusing a nicotine patch at this time - No signs of acute alcohol withdrawal, continue to monitor 8. Prophylaxis - OOB ambulating as tolerated - Heparin 5,000u sq tid Visit type - Emergency Visit Emergency Visit: Yes ED Registration Date: 02/23/17 Care time: The patient presented to the Emergency Department on the above date and was hospitalized for further evaluation of their emergent condition. - New Patient This patient is new to me today: Yes Date on this admission: 02/27/17 - Critical Care Critical Care patient: No
[2017-02-27 13:20] LABS: HEMATOCRIT 36.9 % (35.4-49); HEMOGLOBIN 11.6 GM/dL (11.7-16.9); MCH 28.6 pg (25.7-33.7); MCHC 31.5 g/dl (32.0-35.9); MEAN CELL VOLUME 90.9 fl (80-96); MEAN PLT VOLUME 7.5 fl (7.5-11.1); PLATELET COUNT 435 K/MM3 (134-434); RBC 4.05 M/mm3 (4.00-5.60); RDW 14.9 % (11.9-15.9); WHITE BLOOD COUNT 18.9 K/mm3 (4.0-10.0)
[2017-02-27 13:34] LABS: ANION GAP 6 (8-16); BLOOD UREA NITROGEN 28 mg/dL (7-18); CALCIUM 9.2 mg/dL (8.5-10.1); CHLORIDE 93 mmol/L (98-107); CO2 30 mmol/L (21-32); CREATININE 1.6 mg/dL (0.7-1.3); POTASSIUM 4.7 mmol/L (3.5-5.1); SODIUM 129 mmol/L (136-145)
[2017-02-27 13:51] LABS: GLUCOSE,RANDOM 371 mg/dL (74-106)
[2017-02-27 14:16] LABS: ACANTHOCYTES 0; ANISOCYTOSIS 0; HELMET CELLS 0; HOWELL-JOLLY BODIES 0; MACROCYTOSIS 0; OVALOCYTE 0; PLATELET ESTIMATE NORMAL; SICKELED CELLS 0; TARGET CELLS 0; TEAR DROP CELLS 0; TOXIC GRANULATION 0
--- NOTE | 2017-02-27 14:55 | PN ---
Progress Note, Physician History of Present Illness: pulmonary alert,nad,-sob,-cough - Current Medication List Current Medications: Active Medications Albuterol/Ipratropium (Duoneb -) 1 amp NEB Q4HPO [facility] Last Admin: 02/27/17 13:48 Dose: 1 amp Aspirin (Ecotrin -) 81 mg PO DAILY [facility] Last Admin: 02/27/17 09:34 Dose: 81 mg Atorvastatin Calcium (Lipitor -) 40 mg PO [facility] Last Admin: 02/26/17 21:48 Dose: 40 mg Azithromycin (Zithromax -) 500 mg PO DAILY [facility] Last Admin: 02/27/17 12:00 Dose: 500 mg Budesonide/Formoterol Fumarate (Symbicort 160/4.5mcg -) 2 puff IH BID [facility] Last Admin: 02/27/17 09:40 Dose: 2 puff Carvedilol (Coreg -) 6.25 mg PO BID [facility] Last Admin: 02/27/17 09:35 Dose: 6.25 mg Furosemide (Lasix -) 40 mg PO DAILY [facility] Last Admin: 02/27/17 09:34 Dose: 40 mg Guaifenesin (Robitussin -) 10 ml PO Q4H PRN PRN Reason: COUGH Last Admin: 02/24/17 23:25 Dose: 10 ml Heparin Sodium (Porcine) (Heparin -) 5,000 unit SQ TID [facility] Last Admin: 02/27/17 06:31 Dose: 5,000 unit Hydralazine HCl (Apresoline -) 100 mg PO TID [facility] Last Admin: 02/27/17 06:31 Dose: 100 mg CEFTRIAXONE 1 G/50 ML PREMIX (Ceftriaxone 1 Gm-D5w Bag) 50 mls @ 100 mls/hr IVPB DAILY [facility] Last Admin: 02/27/17 12:00 Dose: 100 mls/hr Insulin Aspart (Novolog Vial Sliding Scale -) 1 vial SQ ACHS [facility] PRN Reason: Protocol Last Admin: 02/27/17 11:45 Dose: 10 units Insulin Detemir (Levemir Vial) 10 units SQ [facility] Isosorbide Mononitrate (Imdur -) 30 mg PO DAILY [facility] Last Admin: 02/27/17 09:34 Dose: 30 mg Methylprednisolone Sodium Succinate (Solu-Medrol -) 60 mg IVPUSH [facility] Stop: 02/27/17 22:01 Nifedipine (Procardia Xl -) 60 mg PO BID [facility] Last Admin: 02/27/17 09:35 Dose: 60 mg Prednisone (Deltasone -) 60 mg PO DAILY [facility] Spironolactone (Aldactone -) 50 mg PO DAILY [facility] Last Admin: 02/27/17 09:35 Dose: 50 mg Valsartan (Diovan -) 320 mg PO DAILY [facility] Last Admin: 02/27/17 09:35 Dose: 320 mg - Objective Vital Signs: Vital Signs Temperature 97.9 F 02/27/17 14:36 Pulse Rate 94 H 02/27/17 14:36 Respiratory Rate 18 02/27/17 14:36 Blood Pressure 139/82 02/27/17 14:36 O2 Sat by Pulse Oximetry (%) 98 02/27/17 09:45 Constitutional: Yes: Well Nourished, Calm Eyes: Yes: WNL HENT: Yes: WNL Neck: Yes: WNL Cardiovascular: Yes: Regular Rate and Rhythm, S1, S2 Respiratory: Yes: CTA Bilaterally Gastrointestinal: Yes: Normal Bowel Sounds, Soft Extremities: Yes: WNL Edema: No Labs: CBC, BMP 02/27/17 12:56 02/27/17 12:56 Assessment/Plan Problem List - Problems (1) Pleural effusion Code(s): J90 - PLEURAL EFFUSION, NOT ELSEWHERE CLASSIFIED (2) Asthma exacerbation Code(s): J45.901 - UNSPECIFIED ASTHMA WITH (ACUTE) EXACERBATION Qualifiers: Asthma severity: severe Asthma persistence: persistent Qualified Code(s) : J45.51 - Severe persistent asthma with (acute) exacerbation (3) Cocaine abuse Code(s): F14.10 - COCAINE ABUSE, UNCOMPLICATED (4) Tobacco use Code(s): Z72.0 - TOBACCO USE (5) Acute on chronic diastolic (congestive) heart failure Code(s): I50.33 - ACUTE ON CHRONIC DIASTOLIC (CONGESTIVE) HEART FAILURE (6) Diabetes Code(s): E11.9 - TYPE 2 DIABETES MELLITUS WITHOUT COMPLICATIONS Qualifiers: Diabetes mellitus type: type 2 Chronic kidney disease stage: stage 2 (mild ) (7) HTN (hypertension) Code(s): I10 - ESSENTIAL (PRIMARY) HYPERTENSION Qualifiers: Hypertension type: essential hypertension Qualified Code(s): I10 - Essential (primary) hypertension (8) History of myocardial infarction Code(s): I25.2 - OLD MYOCARDIAL INFARCTION (9) Hyperlipidemia Code(s): E78.5 - HYPERLIPIDEMIA, UNSPECIFIED Qualifiers: Hyperlipidemia type: pure hypercholesterolemia Qualified Code(s): E78.00 - Pure hypercholesterolemia, unspecified Assessment/Plan Prednisone BD TX Duoneb Q4 Lasix VM O2 NIPPV if needed f/u chest ct [address] DOYLE
[2017-02-27] MEDS ORDERED: INSULIN (NOVOLOG) ASPART 100 UNITS/ML 10ML VIAL SQ ONE (17:45)
[2017-02-27] MEDS ORDERED: methylPREDNISolone NA SUCC 40 MG/1 ML VIAL IVPUSH SCH (18:00)
[2017-02-27] MEDS ORDERED: INSULIN (NOVOLOG) ASPART 100 UNITS/ML 10ML VIAL ONE (20:58)
[2017-02-27] MEDS ORDERED: PT OWN MED DRAWER 7, Y5N ONE (20:59)
[2017-02-27] MEDS: ATORVASTATIN CA 40 MG TABLET (FP) PO SCH (21:01)
[2017-02-27] MEDS ORDERED: methylPREDNISolone NA SUCC 125 MG/2 ML VIAL IVPUSH SCH (22:00)
[2017-02-27] MEDS ORDERED: INSULIN DETEMIR 100 UNITS/ML MDV SQ SCH (22:00)
[2017-02-28] MEDS ORDERED: PT OWN MED DRAWER 7, Y5N ONE (01:31)
[2017-02-28] MEDS: guaiFENesin 200 MG/10 ML 10 ML UNIT-DOSE CUPS PO PRN ×2 (01:34→21:52)
[2017-02-28] MEDS: ALBUTEROL SO4 2.5/IPRATROPIUM 0.5 INH SOL 3 ML VIAL.NEB. NEB SCH ×6 (01:46→22:45)
[2017-02-28] MEDS: INSULIN SLIDING SCALE (NOVOLOG) 1 VIAL SQ SCH ×4 (06:34→21:50)
[2017-02-28] MEDS: HEPARIN NA (PORCINE) 5,000 UNITS/ML 1ML VIAL SQ SCH ×3 (06:35→21:46)
[2017-02-28] MEDS: hydrALAZINE HCL 50 MG TABLET (FP) PO SCH ×3 (06:35→21:48)
[2017-02-28 08:06] LABS: BASO % 0.6 % (0-2.0); HEMATOCRIT 37.1 % (35.4-49); HEMOGLOBIN 11.7 GM/dL (11.7-16.9); LYMPH % 9.3 % (8-40); MCH 28.7 pg (25.7-33.7); MCHC 31.5 g/dl (32.0-35.9); MEAN CELL VOLUME 91.3 fl (80-96); MEAN PLT VOLUME 7.9 fl (7.5-11.1); NEUT % 86.1 % (42.8-82.8); PLATELET COUNT 433 K/MM3 (134-434); RBC 4.07 M/mm3 (4.00-5.60); RDW 14.6 % (11.9-15.9); WHITE BLOOD COUNT 17.4 K/mm3 (4.0-10.0)
[2017-02-28 08:23] LABS: ANION GAP 11 (8-16); BLOOD UREA NITROGEN 32 mg/dL (7-18); CALCIUM 9.9 mg/dL (8.5-10.1); CHLORIDE 92 mmol/L (98-107); CO2 28 mmol/L (21-32); CREATININE 1.7 mg/dL (0.7-1.3); POTASSIUM 4.9 mmol/L (3.5-5.1); SODIUM 131 mmol/L (136-145)
[2017-02-28] MEDS: VALSARTAN 160 MG TABLET (UD) PO SCH (09:12)
[2017-02-28] MEDS: predniSONE 20 MG TABLET (UD) PO SCH (09:12)
[2017-02-28] MEDS: CARVEDILOL 6.25 MG TABLET (FP) PO SCH (09:13)
[2017-02-28] MEDS: ASPIRIN COATED 81 MG TABLET.EC PO SCH (09:13)
[2017-02-28] MEDS: FUROSEMIDE 40 MG TABLET (FP) PO SCH (09:13)
[2017-02-28] MEDS: ISOSORBIDE MONONITRATE 30 MG TAB.SR.24H (FP) PO SCH (09:13)
[2017-02-28] MEDS: NIFEdipine E.R 60 MG TABLET (UD) PO SCH ×2 (09:13→21:48)
[2017-02-28] MEDS: AZITHROMYCIN 250 MG TABLET PO SCH (09:13)
[2017-02-28] MEDS: CEFTRIAXONE 1 G/50 ML PREMIX 50 ML IVPB SCH (09:13)
[2017-02-28] MEDS: BUDESONIDE/FORMETEROL FUMARATE 160/4.5 mcg INHALER IH SCH ×2 (09:14→21:56)
[2017-02-28] MEDS: SPIRONOLACTONE 25 MG TABLET (FP) PO SCH (09:14)
[2017-02-28 09:25] LABS: GLUCOSE,RANDOM 446 mg/dL (74-106)
[2017-02-28] MEDS ORDERED: INSULIN (NOVOLOG) ASPART 100 UNITS/ML 10ML VIAL SQ ONE (09:55)
[2017-02-28] MEDS ORDERED: INSULIN DETEMIR 100 UNITS/ML MDV SQ SCH (10:00)
--- NOTE | 2017-02-28 12:50 | PN ---
Progress Note, Physician History of Present Illness: Infectious Disease f/u note: Pt seen and examined. Records reviewed, events noted. Pt states he feels well. Denies shortness of breath but with yellow sputum production. No new complaints. - Current Medication List Current Medications: Active Medications Albuterol/Ipratropium (Duoneb -) 1 amp NEB Q4HPO [facility] Last Admin: 02/28/17 10:27 Dose: 1 amp Aspirin (Ecotrin -) 81 mg PO DAILY [facility] Last Admin: 02/28/17 09:13 Dose: 81 mg Atorvastatin Calcium (Lipitor -) 40 mg PO HS [facility] Last Admin: 02/27/17 21:01 Dose: 40 mg Azithromycin (Zithromax -) 500 mg PO DAILY [facility] Last Admin: 02/28/17 09:13 Dose: 500 mg Budesonide/Formoterol Fumarate (Symbicort 160/4.5mcg -) 2 puff IH BID [facility] Last Admin: 02/28/17 09:14 Dose: 2 puff Carvedilol (Coreg -) 6.25 mg PO BID [facility] Last Admin: 02/28/17 09:13 Dose: 6.25 mg Furosemide (Lasix -) 40 mg PO DAILY [facility] Last Admin: 02/28/17 09:13 Dose: 40 mg Guaifenesin (Robitussin -) 10 ml PO Q4H PRN PRN Reason: COUGH Last Admin: 02/28/17 01:34 Dose: 10 ml Heparin Sodium (Porcine) (Heparin -) 5,000 unit SQ TID [facility] Last Admin: 02/28/17 06:35 Dose: 5,000 unit Hydralazine HCl (Apresoline -) 100 mg PO TID [facility] Last Admin: 02/28/17 06:35 Dose: 100 mg CEFTRIAXONE 1 G/50 ML PREMIX (Ceftriaxone 1 Gm-D5w Bag) 50 mls @ 100 mls/hr IVPB DAILY [facility] Last Admin: 02/28/17 09:13 Dose: 100 mls/hr Insulin Aspart (Novolog Vial Sliding Scale -) 1 vial SQ ACHS [facility] PRN Reason: Protocol Last Admin: 02/28/17 11:51 Dose: 6 unit Insulin Detemir (Levemir Vial) 10 units SQ BID@0700,2200 [facility] Isosorbide Mononitrate (Imdur -) 30 mg PO DAILY [facility] Last Admin: 02/28/17 09:13 Dose: 30 mg Nifedipine (Procardia Xl -) 60 mg PO BID [facility] Last Admin: 02/28/17 09:13 Dose: 60 mg Prednisone (Deltasone -) 60 mg PO DAILY [facility] Last Admin: 02/28/17 09:12 Dose: 60 mg Spironolactone (Aldactone -) 50 mg PO DAILY [facility] Last Admin: 02/28/17 09:14 Dose: 50 mg Valsartan (Diovan -) 320 mg PO DAILY [facility] Last Admin: 02/28/17 09:12 Dose: 320 mg - Objective Vital Signs: Vital Signs Temperature 97.9 F 02/28/17 08:30 Pulse Rate 83 02/28/17 08:30 Respiratory Rate 16 02/28/17 08:30 Blood Pressure 165/103 02/28/17 08:30 O2 Sat by Pulse Oximetry (%) 99 02/28/17 10:26 Constitutional: Yes: No Distress, Calm HENT: Yes: Atraumatic Neck: Yes: Supple Cardiovascular: Yes: Regular Rate and Rhythm Respiratory: Yes: CTA Bilaterally Gastrointestinal: Yes: Normal Bowel Sounds, Soft Genitourinary: Yes: WNL Extremities: Yes: WNL Integumentary: Yes: WNL Neurological: Yes: Alert, Oriented Labs: CBC, BMP 02/28/17 06:20 02/28/17 06:20 - ....Imaging Cat Scan: Report Reviewed (Chest: nonspecific opacities) Problem List - Problems (1) Asthma exacerbation Code(s): J45.901 - UNSPECIFIED ASTHMA WITH (ACUTE) EXACERBATION Qualifiers: Asthma severity: severe Asthma persistence: persistent Qualified Code(s) : J45.51 - Severe persistent asthma with (acute) exacerbation (2) Cocaine abuse Code(s): F14.10 - COCAINE ABUSE, UNCOMPLICATED (3) Acute on chronic diastolic (congestive) heart failure Code(s): I50.33 - ACUTE ON CHRONIC DIASTOLIC (CONGESTIVE) HEART FAILURE (4) Diabetes Code(s): E11.9 - TYPE 2 DIABETES MELLITUS WITHOUT COMPLICATIONS Qualifiers: Diabetes mellitus type: type 2 Diabetes mellitus 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 treater helper insulin use: without termite treater helper use Chronic kidney disease stage: stage 2 (mild) (5) HTN (hypertension) Code(s): I10 - ESSENTIAL (PRIMARY) HYPERTENSION Qualifiers: Hypertension type: essential hypertension Qualified Code(s): I10 - Essential (primary) hypertension (6) History of myocardial infarction Code(s): I25.2 - OLD MYOCARDIAL INFARCTION Assessment/Plan Pt with leukocytosis, on steroids started empirically on antibiotics for possible CAP wbc slightly improved - suggest f/u blood culture results, wbc tomorrow - if no growth and wbc continues to improve, plan switch to po antibiotics - pt currently stable
--- NOTE | 2017-02-28 13:47 | PN ---
Progress Note, Physician History of Present Illness: pulmonary alert,nad,-sob,-cp,-cough - Current Medication List Current Medications: Active Medications Albuterol/Ipratropium (Duoneb -) 1 amp NEB Q4HPO [facility] Last Admin: 02/28/17 10:27 Dose: 1 amp Aspirin (Ecotrin -) 81 mg PO DAILY [facility] Last Admin: 02/28/17 09:13 Dose: 81 mg Atorvastatin Calcium (Lipitor -) 40 mg PO HS [facility] Last Admin: 02/27/17 21:01 Dose: 40 mg Azithromycin (Zithromax -) 500 mg PO DAILY [facility] Last Admin: 02/28/17 09:13 Dose: 500 mg Budesonide/Formoterol Fumarate (Symbicort 160/4.5mcg -) 2 puff IH BID [facility] Last Admin: 02/28/17 09:14 Dose: 2 puff Carvedilol (Coreg -) 6.25 mg PO BID [facility] Last Admin: 02/28/17 09:13 Dose: 6.25 mg Furosemide (Lasix -) 40 mg PO DAILY [facility] Last Admin: 02/28/17 09:13 Dose: 40 mg Guaifenesin (Robitussin -) 10 ml PO Q4H PRN PRN Reason: COUGH Last Admin: 02/28/17 01:34 Dose: 10 ml Heparin Sodium (Porcine) (Heparin -) 5,000 unit SQ TID [facility] Last Admin: 02/28/17 06:35 Dose: 5,000 unit Hydralazine HCl (Apresoline -) 100 mg PO TID [facility] Last Admin: 02/28/17 06:35 Dose: 100 mg CEFTRIAXONE 1 G/50 ML PREMIX (Ceftriaxone 1 Gm-D5w Bag) 50 mls @ 100 mls/hr IVPB DAILY [facility] Last Admin: 02/28/17 09:13 Dose: 100 mls/hr Insulin Aspart (Novolog Vial Sliding Scale -) 1 vial SQ ACHS [facility] PRN Reason: Protocol Last Admin: 02/28/17 11:51 Dose: 6 unit Insulin Detemir (Levemir Vial) 10 units SQ BID@0700,2200 [facility] Isosorbide Mononitrate (Imdur -) 30 mg PO DAILY [facility] Last Admin: 02/28/17 09:13 Dose: 30 mg Nifedipine (Procardia Xl -) 60 mg PO BID [facility] Last Admin: 02/28/17 09:13 Dose: 60 mg Prednisone (Deltasone -) 60 mg PO DAILY [facility] Last Admin: 02/28/17 09:12 Dose: 60 mg Spironolactone (Aldactone -) 50 mg PO DAILY [facility] Last Admin: 02/28/17 09:14 Dose: 50 mg Valsartan (Diovan -) 320 mg PO DAILY [facility] Last Admin: 02/28/17 09:12 Dose: 320 mg - Objective Vital Signs: Vital Signs Temperature 97.7 F 02/28/17 13:40 Pulse Rate 82 02/28/17 13:40 Respiratory Rate 18 02/28/17 13:40 Blood Pressure 144/96 02/28/17 13:40 O2 Sat by Pulse Oximetry (%) 99 02/28/17 10:26 Constitutional: Yes: Well Nourished, Calm Eyes: Yes: WNL HENT: Yes: WNL Neck: Yes: WNL Cardiovascular: Yes: Regular Rate and Rhythm, S1, S2 Respiratory: Yes: CTA Bilaterally Gastrointestinal: Yes: Normal Bowel Sounds, Soft Extremities: Yes: WNL Edema: No Labs: CBC, BMP 02/28/17 06:20 02/28/17 06:20 Assessment/Plan Problem List - Problems (1) Pleural effusion Code(s): J90 - PLEURAL EFFUSION, NOT ELSEWHERE CLASSIFIED (2) Asthma exacerbation Code(s): J45.901 - UNSPECIFIED ASTHMA WITH (ACUTE) EXACERBATION Qualifiers: Asthma severity: severe Asthma persistence: persistent Qualified Code(s) : J45.51 - Severe persistent asthma with (acute) exacerbation (3) Cocaine abuse Code(s): F14.10 - COCAINE ABUSE, UNCOMPLICATED (4) Tobacco use Code(s): Z72.0 - TOBACCO USE (5) Acute on chronic diastolic (congestive) heart failure Code(s): I50.33 - ACUTE ON CHRONIC DIASTOLIC (CONGESTIVE) HEART FAILURE (6) Diabetes Code(s): E11.9 - TYPE 2 DIABETES MELLITUS WITHOUT COMPLICATIONS Qualifiers: Diabetes mellitus type: type 2 Chronic kidney disease stage: stage 2 (mild ) (7) HTN (hypertension) Code(s): I10 - ESSENTIAL (PRIMARY) HYPERTENSION Qualifiers: Hypertension type: essential hypertension Qualified Code(s): I10 - Essential (primary) hypertension (8) History of myocardial infarction Code(s): I25.2 - OLD MYOCARDIAL INFARCTION (9) Hyperlipidemia Code(s): E78.5 - HYPERLIPIDEMIA, UNSPECIFIED Qualifiers: Hyperlipidemia type: pure hypercholesterolemia Qualified Code(s): E78.00 - Pure hypercholesterolemia, unspecified Assessment/Plan Prednisone BD TX Duoneb Q4 Lasix VM O2 NIPPV if needed f/u chest ct [address] DOYLE
--- NOTE | 2017-02-28 15:47 | PN ---
Progress Note, Physician Chief Complaint: Not in distress History of Present Illness: Patient was seen and examined. Awake and alert. Chart was reviewed Denies chest pain, SOB or palpitations - Current Medication List Current Medications: Active Medications Albuterol/Ipratropium (Duoneb -) 1 amp NEB Q4HPO [facility] Last Admin: 02/28/17 15:00 Dose: 1 amp Aspirin (Ecotrin -) 81 mg PO DAILY [facility] Last Admin: 02/28/17 09:13 Dose: 81 mg Atorvastatin Calcium (Lipitor -) 40 mg PO HS [facility] Last Admin: 02/27/17 21:01 Dose: 40 mg Azithromycin (Zithromax -) 500 mg PO DAILY [facility] Last Admin: 02/28/17 09:13 Dose: 500 mg Budesonide/Formoterol Fumarate (Symbicort 160/4.5mcg -) 2 puff IH BID [facility] Last Admin: 02/28/17 09:14 Dose: 2 puff Carvedilol (Coreg -) 6.25 mg PO BID [facility] Last Admin: 02/28/17 09:13 Dose: 6.25 mg Furosemide (Lasix -) 40 mg PO DAILY [facility] Last Admin: 02/28/17 09:13 Dose: 40 mg Guaifenesin (Robitussin -) 10 ml PO Q4H PRN PRN Reason: COUGH Last Admin: 02/28/17 01:34 Dose: 10 ml Heparin Sodium (Porcine) (Heparin -) 5,000 unit SQ TID [facility] Last Admin: 02/28/17 06:35 Dose: 5,000 unit Hydralazine HCl (Apresoline -) 100 mg PO TID [facility] Last Admin: 02/28/17 06:35 Dose: 100 mg CEFTRIAXONE 1 G/50 ML PREMIX (Ceftriaxone 1 Gm-D5w Bag) 50 mls @ 100 mls/hr IVPB DAILY [facility] Last Admin: 02/28/17 09:13 Dose: 100 mls/hr Insulin Aspart (Novolog Vial Sliding Scale -) 1 vial SQ ACHS [facility] PRN Reason: Protocol Last Admin: 02/28/17 11:51 Dose: 6 unit Insulin Detemir (Levemir Vial) 10 units SQ BID@0700,2200 [facility] Isosorbide Mononitrate (Imdur -) 30 mg PO DAILY [facility] Last Admin: 02/28/17 09:13 Dose: 30 mg Nifedipine (Procardia Xl -) 60 mg PO BID [facility] Last Admin: 02/28/17 09:13 Dose: 60 mg Prednisone (Deltasone -) 60 mg PO DAILY [facility] Last Admin: 02/28/17 09:12 Dose: 60 mg Spironolactone (Aldactone -) 50 mg PO DAILY [facility] Last Admin: 02/28/17 09:14 Dose: 50 mg Valsartan (Diovan -) 320 mg PO DAILY [facility] Last Admin: 02/28/17 09:12 Dose: 320 mg - Objective Vital Signs: Vital Signs Temperature 97.7 F 02/28/17 13:40 Pulse Rate 82 02/28/17 13:40 Respiratory Rate 18 02/28/17 13:40 Blood Pressure 144/96 02/28/17 13:40 O2 Sat by Pulse Oximetry (%) 99 02/28/17 10:26 Eyes: Yes: PERRL HENT: Yes: Atraumatic Neck: Yes: Supple Cardiovascular: Yes: Regular Rate and Rhythm, S1, S2 Respiratory: Yes: CTA Bilaterally Gastrointestinal: Yes: Normal Bowel Sounds, Soft. No: Tenderness Edema: No Labs: CBC, BMP 02/28/17 06:20 02/28/17 06:20 Problem List - Problems (1) CAD (coronary artery disease) Code(s): I25.10 - ATHSCL HEART DISEASE OF [place] CORONARY ARTERY W/O ANG PCTRS Qualifiers: Coronary Disease-Associated Artery/Lesion type: [place] artery [place] vs. transplanted heart: [place] heart Associated angina: without angina Qualified Code(s): I25.10 - Atherosclerotic heart disease of [place] coronary artery without angina pectoris (2) History of percutaneous coronary intervention Code(s): Z98.890 - OTHER SPECIFIED POSTPROCEDURAL STATES (3) Cocaine abuse Code(s): F14.10 - COCAINE ABUSE, UNCOMPLICATED (4) Shortness of breath Code(s): R06.02 - SHORTNESS OF BREATH (5) Acute on chronic diastolic (congestive) heart failure Code(s): I50.33 - ACUTE ON CHRONIC DIASTOLIC (CONGESTIVE) HEART FAILURE (6) CKD (chronic kidney disease) stage 3, GFR 30-59 ml/min Code(s): N18.3 - CHRONIC KIDNEY DISEASE, STAGE 3 (MODERATE) (7) Diabetes Code(s): E11.9 - TYPE 2 DIABETES MELLITUS WITHOUT COMPLICATIONS Qualifiers: Diabetes mellitus type: type 2 Diabetes mellitus intermediate card tender insulin use: without intermediate card tender use Chronic kidney disease stage: stage 2 (mild) (8) HTN (hypertension) Code(s): I10 - ESSENTIAL (PRIMARY) HYPERTENSION Qualifiers: Hypertension type: essential hypertension Qualified Code(s): I10 - Essential (primary) hypertension (9) History of myocardial infarction Code(s): I25.2 - OLD MYOCARDIAL INFARCTION (10) Hyperlipidemia Code(s): E78.5 - HYPERLIPIDEMIA, UNSPECIFIED Qualifiers: Hyperlipidemia type: pure hypercholesterolemia Qualified Code(s): E78.00 - Pure hypercholesterolemia, unspecified Assessment/Plan 1. Clinical presentation compatible with class 2-3 NYHA classification LV failure - improving 2. Acute on chronic LV systolic and diastolic failure 3. Coronary artery disease, history of MD, PCI/stent, history of MD 4. Hypertension 5. Hypercholesterolemia 6. Diabetes mellitus 7. CKD - creatinine increased PLAN: 1. Continue Hydralazine and Procardia XL as tolerated. Hold Diovan 2. Continue Lasix and Aldactone 3. Continue Imdur 4. Continue ASA 5. Increase Carvedilol to 12.5 mg BID 6. Continue Lipitor 7. Monitor electrolytes and renal function Further plans are to follow. Discussed with hospitalist service Nicholas Singletary MD
--- NOTE | 2017-02-28 15:48 | PN ---
Physical Exam: SUBJECTIVE: Patient seen and examined. He feels well, ambulating w/o oxygen, no wheezing, no cough. Eager to go home OBJECTIVE: Vital Signs Period Temp Pulse Resp BP Sys/Caal Pulse Ox Last 24 Hr 97.5 F-98 F 78-91 16-18 134-183/84-120 94-99 PE Neuro: alert, awake, cn 2-12 intact Pulm: course bs CV:s1 s2 rrr no mrg Abd: s nt nd + bs Ext: warm, no le edema Laboratory Results - last 24 hr 02/27/17 02/28/17 02/28/17 20:47 06:20 06:20 WBC 17.4 H RBC 4.07 Hgb 11.7 Hct 37.1 MCV 91.3 MCH 28.7 MCHC 31.5 L RDW 14.6 Plt Count 433 MPV 7.9 Neutrophils % 86.1 H Lymphocytes % 9.3 Monocytes % 4.0 Eosinophils % 0.0 D Basophils % 0.6 Sodium 131 L Potassium 4.9 Chloride 92 L Carbon Dioxide 28 Anion Gap 11 BUN 32 H Creatinine 1.7 H POC Glucometer 381 Random Glucose 446 H* D Calcium 9.9 Active Medications Generic Name Dose Route Start Last Admin Trade Name Freq PRN Reason Stop Dose Admin Albuterol/Ipratropium 1 amp 02/23/17 14:00 02/28/17 15:00 Duoneb - NEB 1 amp Q4HPO [facility] Administration Aspirin 81 mg 02/24/17 10:00 02/28/17 09:13 Ecotrin - PO 81 mg DAILY [facility] Administration Atorvastatin Calcium 40 mg 02/23/17 22:00 02/27/17 21:01 Lipitor - PO 40 mg HS [facility] Administration Azithromycin 500 mg 02/27/17 11:00 02/28/17 09:13 Zithromax - PO 500 mg DAILY [facility] Administration Budesonide/Formoterol Fumarate 2 puff 02/24/17 22:00 02/28/17 09:14 Symbicort 160/4.5mcg - IH 2 puff BID [facility] Administration Carvedilol 6.25 mg 02/25/17 17:45 02/28/17 09:13 Coreg - PO 6.25 mg BID [facility] Administration Furosemide 40 mg 02/24/17 10:00 02/28/17 09:13 Lasix - PO 40 mg DAILY [facility] Administration Guaifenesin 10 ml 02/23/17 23:58 02/28/17 01:34 Robitussin - PO 10 ml Q4H PRN Administration COUGH Heparin Sodium (Porcine) 5,000 unit 02/24/17 22:00 02/28/17 06:35 Heparin - SQ 5,000 unit TID [facility] Administration Hydralazine HCl 100 mg 02/23/17 14:00 02/28/17 06:35 Apresoline - PO 100 mg TID [facility] Administration CEFTRIAXONE 1 G/50 ML PREMIX 50 mls @ 100 mls/hr 02/27/17 11:00 02/28/17 09: 13 Ceftriaxone 1 Gm-D5w Bag IVPB 100 mls/hr DAILY [facility] Administration Insulin Aspart 1 vial 02/27/17 17:32 02/28/17 11:51 Novolog Vial Sliding Scale - SQ 6 unit ACHS [facility] Administration Protocol Insulin Detemir 10 units 02/28/17 11:55 Levemir Vial SQ BID@0700,2200 [facility] Isosorbide Mononitrate 30 mg 02/24/17 10:00 02/28/17 09:13 Imdur - PO 30 mg DAILY [facility] Administration Nifedipine 60 mg 02/23/17 22:00 02/28/17 09:13 Procardia Xl - PO 60 mg BID [facility] Administration Prednisone 60 mg 02/28/17 10:00 02/28/17 09:12 Deltasone - PO 60 mg DAILY [facility] Administration Spironolactone 50 mg 02/24/17 10:00 02/28/17 09:14 Aldactone - PO 50 mg DAILY [facility] Administration Valsartan 320 mg 02/24/17 10:00 02/28/17 09:12 Diovan - PO 320 mg DAILY [facility] Administration Assessment: 56 year old male with PMHx of HTN, hyperlipidemia, medication non- adherence, [place] x3 (no cardiac stents), systolic heart failure, NIDDM, asthma, cocaine use admitted with shortness of breath . Plan: 1. Shortness of breath - Likely 2/2 to acute asthma exacerbation vs. viral bronchitis - Daily po prednisone taper today - Continue ceftriaxone/azithro (day 2) - Symbicort - If wbc continue to down trend tomorrow, home w/ po abx 2. Hypertensive urgency - Hx of medication non-adherence, BP stable with current regimen - Diovan 320mg daily, Aldactone 50mg daily, Imdur 30mg daily, hydralazine 100mg tid, lasix 40mg daily - Continue Procardia XL - Increase Coreg 12.5mg BID 3. Chronic systolic and diastolic heart failure - Not in exacerbation - Continue Lasix - Medications as above - Previous ECHO from 08/2016 reviewed 4. CAD s/p [place] x3 - Trop x3 negative - Continue ASA - Continue Lipitor 5. CKD stage 3 - Cr uptrends - Baseline ~1.5 - Hold lasix/diovan - BMP in am - Encourage PO fluids, caution with IVF d/t HTN 6. NIDDM - Uncontrolled - Increase levemir 10units BID - Stop Glipizide - BGM, ISS ACHS 7. Continuous polysubstance abuse - Patient reports last use of cocaine was about 5 weeks ago - Counseled on need for drug abstinence and explained the risks of cocaine use with HTN and cardiac disease as well as interaction with required medications. Patient verbalizes and understanding of the risks. Will continue to avoid beta blockers due to cocaine use - Patient refusing a nicotine patch at this time - No signs of acute alcohol withdrawal, continue to monitor 8. Prophylaxis - OOB ambulating as tolerated - Heparin 5,000u sq tid Visit type - Emergency Visit Emergency Visit: Yes ED Registration Date: 02/23/17 Care time: The patient presented to the Emergency Department on the above date and was hospitalized for further evaluation of their emergent condition. - New Patient This patient is new to me today: No - Critical Care Critical Care patient: No
[2017-02-28] MEDS ORDERED: INSULIN (NOVOLOG) ASPART 100 UNITS/ML 10ML VIAL ONE ×2 (17:02→21:24)
[2017-02-28] MEDS: CARVEDILOL 12.5 MG TABLET (FP) PO SCH (21:48)
[2017-02-28] MEDS: ATORVASTATIN CA 40 MG TABLET (FP) PO SCH (21:48)
[2017-02-28] MEDS: INSULIN DETEMIR 100 UNITS/ML MDV SQ SCH (21:49)
[2017-03-01] MEDS: ALBUTEROL SO4 2.5/IPRATROPIUM 0.5 INH SOL 3 ML VIAL.NEB. NEB SCH ×3 (02:35→10:00)
[2017-03-01] MEDS: INSULIN DETEMIR 100 UNITS/ML MDV SQ SCH ×2 (06:46→09:11)
[2017-03-01] MEDS: HEPARIN NA (PORCINE) 5,000 UNITS/ML 1ML VIAL SQ SCH (06:46)
[2017-03-01] MEDS: hydrALAZINE HCL 50 MG TABLET (FP) PO SCH (06:46)
[2017-03-01] MEDS: INSULIN SLIDING SCALE (NOVOLOG) 1 VIAL SQ SCH (06:49)
[2017-03-01] MEDS ORDERED: INSULIN DETEMIR 100 UNITS/ML MDV SQ ONE (07:03)
[2017-03-01] MEDS ORDERED: INSULIN (NOVOLOG) ASPART 100 UNITS/ML 10ML VIAL ONE (07:03)
[2017-03-01] MEDS ORDERED: PT OWN MED DRAWER 7, Y5N ONE (08:23)
[2017-03-01] MEDS: CEFTRIAXONE 1 G/50 ML PREMIX 50 ML IVPB SCH (08:59)
[2017-03-01] MEDS: SPIRONOLACTONE 25 MG TABLET (FP) PO SCH (09:07)
[2017-03-01] MEDS: ISOSORBIDE MONONITRATE 30 MG TAB.SR.24H (FP) PO SCH (09:07)
[2017-03-01] MEDS: ASPIRIN COATED 81 MG TABLET.EC PO SCH (09:07)
[2017-03-01] MEDS: predniSONE 20 MG TABLET (UD) PO SCH (09:07)
[2017-03-01] MEDS: CARVEDILOL 12.5 MG TABLET (FP) PO SCH (09:07)
[2017-03-01] MEDS: NIFEdipine E.R 60 MG TABLET (UD) PO SCH (09:08)
[2017-03-01] MEDS: AZITHROMYCIN 250 MG TABLET PO SCH (09:08)
[2017-03-01 09:15] VITALS: BP 160/113; PULSE 85; TEMP 97.4
[2017-03-01] MEDS: BUDESONIDE/FORMETEROL FUMARATE 160/4.5 mcg INHALER IH SCH (09:37)
[2017-03-01 10:06] LABS: BASO % 0.6 % (0-2.0); EOS % 0.6 % (0-4.5); HEMATOCRIT 38.7 % (35.4-49); HEMOGLOBIN 12.3 GM/dL (11.7-16.9); LYMPH % 19.5 % (8-40); MCH 29.1 pg (25.7-33.7); MCHC 31.8 g/dl (32.0-35.9); MEAN CELL VOLUME 91.6 fl (80-96); MEAN PLT VOLUME 7.6 fl (7.5-11.1); MONO % 6.4 % (3.8-10.2); NEUT % 72.9 % (42.8-82.8); PLATELET COUNT 501 K/MM3 (134-434); RBC 4.22 M/mm3 (4.00-5.60); RDW 14.5 % (11.9-15.9); WHITE BLOOD COUNT 16.1 K/mm3 (4.0-10.0)
[2017-03-01 13:20] LABS: ANION GAP 5 (8-16); BLOOD UREA NITROGEN 25 mg/dL (7-18); CALCIUM 9.3 mg/dL (8.5-10.1); CHLORIDE 95 mmol/L (98-107); CO2 32 mmol/L (21-32); CREATININE 1.6 mg/dL (0.7-1.3); GLUCOSE,RANDOM 256 mg/dL (74-106); POTASSIUM 4.1 mmol/L (3.5-5.1); SODIUM 132 mmol/L (136-145)
--- NOTE | 2017-03-01 18:38 | DS ---
Physical Exam: SUBJECTIVE: Patient seen and examined. He wants to leave AMA after his morning dose of abx he refuses to stay for his blood work to return and ID evaluation. OBJECTIVE: Vital Signs Period Temp Pulse Resp BP Sys/Caal Pulse Ox Last 24 Hr 97.4 F-98 F 82-85 20-20 158-172/104-113 96-99 PE Neuro: alert, awake, cn 2-12 intact Pulm: clear, course bs CV:s1 s2 rrr no mrg Abd: s nt nd + bs Ext: warm, no le edema Laboratory Results - last 24 hr 02/28/17 03/01/17 03/01/17 21:40 06:45 09:28 WBC 16.1 H RBC 4.22 Hgb 12.3 Hct 38.7 MCV 91.6 MCH 29.1 MCHC 31.8 L RDW 14.5 Plt Count 501 H MPV 7.6 Neutrophils % 72.9 Lymphocytes % 19.5 D Monocytes % 6.4 Eosinophils % 0.6 D Basophils % 0.6 Sodium Potassium Chloride Carbon Dioxide Anion Gap BUN Creatinine POC Glucometer 393 251 Random Glucose Calcium 03/01/17 09:28 WBC RBC Hgb Hct MCV MCH MCHC RDW Plt Count MPV Neutrophils % Lymphocytes % Monocytes % Eosinophils % Basophils % Sodium 132 L Potassium 4.1 Chloride 95 L Carbon Dioxide 32 Anion Gap 5 L BUN 25 H D Creatinine 1.6 H POC Glucometer Random Glucose 256 H D Calcium 9.3 HOSPITAL COURSE: Date of Admission:02/23/17 Date of Discharge: 03/01/17 Minutes to complete discharge: 38 Discharge Summary Reason For Visit: EXACERBATION OF ASTHMA Hospital Course: Pt left AMA prior to complete to medical clearance for discharge Initial Hospital Course: Briefly, 56 year old male with PMHx of HTN, HLD, medication non-adherence, [place] x3 (no cardiac stents), systolic CHF, NIDDM, asthma, cocaine use, presented to the ED with shortness of breath that began last night. The patient reports he was at home when he began to notice shortness of breath when he walked and a productive cough with yellowish sputum. The patient reports he was not able to catch his breath because he was coughing so much. He denies any fever, chills, or sick contacts. He reports he used his inhaler at home with no relief (showed me he used his symbicort as rescue). Subsequent Hospital Course/Progress Note/ DC summary: Assessment: 56 year old male with PMHx of HTN, hyperlipidemia, medication non- adherence, [place] x3 (no cardiac stents), systolic heart failure, NIDDM, asthma, cocaine use admitted with shortness of breath . Plan: 1. Shortness of breath - Likely 2/2 to acute asthma exacerbation vs. viral bronchitis - Prednisone 60mg daily - Completed ceftriaxone/azithro (day 3) - Symbicort 2. Hypertensive urgency - Hx of medication non-adherence - Hold diovan/ lasix 40mg daily pending renal recovery - Diovan 320mg daily, Aldactone 50mg daily, Imdur 30mg daily, hydralazine 100mg tid, Procardia XL 60mg BID - Increased Coreg 12.5mg BID 3. Chronic systolic and diastolic heart failure - Not in exacerbation - Hold Lasix - Medications as above - Previous ECHO from 08/2016 reviewed 4. CAD s/p [place] x3 - Trop x3 negative - Continue ASA - Continue Lipitor 5. CKD stage 3 - Cr improved today, would continue to hold lasix until repeat labs next week with PCP - Baseline ~1.5 - Hold lasix/diovan 6. NIDDM - Uncontrolled - Increased levemir 10units BID - Stop Glipizide 7. Continuous polysubstance abuse - Patient reports last use of cocaine was about 5 weeks ago - Counseled on need for drug abstinence and explained the risks of cocaine use with HTN and cardiac disease as well as interaction with required medications. Patient verbalizes and understanding of the risks. Will continue to avoid beta blockers due to cocaine use - Patient refusing a nicotine patch at this time 8. Hyponatremia - Corrected 135.7 Dispo: - Pt signed out AMA. He did not want to wait for returned blood levels and clearance from ID. He was advised he could be at risk for respiratory distress , CVA, [place], worsening kidney damage. He is aware and understands, he verbalized he will follow up with PCP Dr. Boone next week. Condition: Good - Instructions Referrals: Lenny Hernandez MD [Primary Care Provider] - Disposition: AGAINST MEDICAL ADVICE - Home Medications Comprehensive Discharge Medication List: Ambulatory Orders Aspirin [Lo-Dose Aspirin EC] 81 mg PO DAILY #10 tablet. 09/30/17 Atorvastatin Ca [Lipitor] 40 mg PO HS #10 tablet 11/22/16 Furosemide [Lasix -] 40 mg PO DAILY #10 tablet 11/22/16 Hydralazine HCl [Apresoline -] 100 mg PO TID #30 tablet 11/22/16 Valsartan [Diovan] 320 mg PO DAILY #10 tablet 11/22/16 Budesonide/Formeterol Fumarate [SYMBICORT 160/4.5mcg -] 1 inh PO DAILY 02/23/17 Glipizide Xl [Glucotrol Xl -] 5 mg PO BID 02/23/17 Nifedipine ER [Procardia XL -] 60 mg PO DAILY 02/23/17 This patient is new to me today: No Emergency Visit: Yes ED Registration Date: 02/23/17 Care time: The patient presented to the Emergency Department on the above date and was hospitalized for further evaluation of their emergent condition. Critical Care patient: No - Discharge Referral Referred to [facility] Med [facility] Yes Physician Referral: Lenny Esquivel MD ([facility])
== END 2017-03-01 12:52 | disposition left against medical advice (07) | DRG 141 ==
LOC: JER 09:04 → JERBED 11:47 → J4W 14:50 → J7W 02-25 13:56
PROVIDERS: ADMIT Internal Medicine; ATTEND Nurse Practitioner Acute Care
DX: J45.901 Unspecified asthma with (acute) exacerbation (principal); J20.9 Acute bronchitis, unspecified; I13.0 Hypertensive heart and chronic kidney disease with heart failure and stage 1 through stage 4 chronic kidney disease, or unspecified chronic kidney disease; E11.22 Type 2 diabetes mellitus with diabetic chronic kidney disease; N18.3 Chronic kidney disease, stage 3 (moderate); I25.10 Atherosclerotic heart disease of native coronary artery without angina pectoris; E87.1 Hypo-osmolality and hyponatremia; I25.2 Old myocardial infarction; Z98.61 Coronary angioplasty status; E78.5 Hyperlipidemia, unspecified; I16.0 Hypertensive urgency; F17.210 Nicotine dependence, cigarettes, uncomplicated; F14.10 Cocaine abuse, uncomplicated; E11.65 Type 2 diabetes mellitus with hyperglycemia; I42.0 Dilated cardiomyopathy; I50.42 Chronic combined systolic (congestive) and diastolic (congestive) heart failure; J18.9 Pneumonia, unspecified organism
CPT/HCPCS: 36415; 71045-TC; 71250-TC; 80048; 80053; 80307; 82550; 82553; 82962; 83605; 83735; 83880; 84100; 84484; 85025; 85027; 85379; 87040; 87070; 87205; 87804; 93005; 93010; 93970-TC; 94640; 94660; 99284-25; J1644

== ENCOUNTER 2017-05-10 07:27 | Inpatient (IN) | payer OTHER ==
[2017-05-10 07:53] VITALS: BMI 32.9
--- NOTE | 2017-05-10 08:19 | PDOC ---
History of Present Illness - General Chief Complaint: Back Pain Stated Complaint: R SIDED BACK PAIN Time Seen by Provider: 05/10/17 08:05 History Source: Patient - History of Present Illness Initial Comments: 05/10/17 08:54 57 y.o. male with a PMH of CHF, Dilated ischemic cardiomyopathy, CAD s/p NH + stent, NIDDM, HTN and HLD presents with stabbing back pain that radiates to his chest. Patient states back pain started acutely 3 hours prior to presentation, is 10/10, radiates to his substernal chest and is exacerbated by taking deep breaths. Patient denies any associated lightheadedness, palpations or diaphoresis. Patient does endorse shortness of breath on exertion, however notes this is his baseline. Patient states his current pain is unlike his previous chest pain during his NH. Patient denies any fevers/chills, abdominal pain, recent travel or sick contacts. Allergy: IRMA-I Surgical: stent x2 PMD: Dr. Esquivel Past History - Past Medical History Allergies/Adverse Reactions: Allergies Allergy/AdvReac Type Severity Reaction Status Date / Time IRMA Inhibitors Allergy Verified 05/10/17 07:32 Home Medications: Ambulatory Orders Aspirin 81 mg PO DAILY 05/10/17 Atorvastatin Ca [Lipitor] 40 mg PO HS 05/10/17 Ergocalciferol [Vitamin D2] 50,000 unit PO FR 05/10/17 Furosemide [Lasix -] 40 mg PO DAILY 05/10/17 Glipizide 5 mg PO BID 05/10/17 Hydralazine HCl 100 mg PO BID 05/10/17 Isosorbide Mononitrate [Imdur -] 30 mg PO DAILY 05/10/17 Meloxicam [Mobic (Nf) -] 15 mg PO DAILY 05/10/17 Nifedipine [Procardia Xl] 60 mg PO DAILY 05/10/17 Spironolactone [Aldactone] 50 mg PO DAILY 05/10/17 Valsartan 320 mg PO DAILY 05/10/17 Anemia: No Asthma: Yes Cancer: No Cardiac Disorders: Yes (ACS,NH X 3,NO STENTS) CVA: No COPD: No CHF: No Dementia: No Diabetes: Yes GI Disorders: No Disorders: No HTN: Yes Hypercholesterolemia: Yes Kidney Stones: No Liver Disease: No Seizures: No Thyroid Disease: No - Surgical History Abdominal Surgery: No Appendectomy: No Cardiac Surgery: No Cholecystectomy: No Lung Surgery: No Neurologic Surgery: No Orthopedic Surgery: Yes (old orthopedic injury fractured left ankle x2) - Reproductive History Testicular Surgery: No - Immunization History Immunization Up to Date: Yes - Suicide/Smoking/Psychosocial Hx Smoking Status: No Smoking History: Current some day smoker Have you smoked in the past 12 months: Yes Number of Cigarettes Smoked Daily: 3 Information on smoking cessation initiated: No 'Breaking Loose' booklet given: 01/12/17 Hx Alcohol Use: Yes (beer) Drug/Substance Use Hx: Yes (cocaine 1x) Substance Use Type: Cocaine Hx Substance Use Treatment: Yes ([facility]- 2013) Review of Systems - Review of Systems Constitutional: No: Chills, Fever HEENTM: No: Recent change in vision Respiratory: No: Cough, Shortness of Breath Cardiac (ROS): Yes: Chest Pain, Syncope. No: Palpitations ABD/GI: No: Diarrhea, Nausea, Vomiting, Abdominal cramping : No: Burning, Dysuria *Physical Exam - Vital Signs Last Vital Signs Temp Pulse Resp BP Pulse Ox 98.2 F 98 H 19 162/107 96 05/10/17 07:33 05/10/17 07:33 05/10/17 07:33 05/10/17 07:33 05/10/17 07:33 - Physical Exam General Appearance: Yes: Nourished, Obese HEENT: positive: EOMI, TATIANNA Neck: positive: Trachea midline, Supple Respiratory/Chest: positive: Lungs Clear Cardiovascular: positive: S1, S2, Other (SPB 170's B/L @ presentation) Vascular Pulses: Dorsalis-Pedis (R): 2+, Doralis-Pedis (L): 2+ Gastrointestinal/Abdominal: positive: Normal Bowel Sounds, Soft. negative: Protuberent, Distended, Guarding, Rebound Musculoskeletal: positive: Other (R mid parasternal TTP). negative: CVA Tenderness (R), CVA Tenderness (L) Extremity: positive: Normal Capillary Refill, Normal Inspection Neurologic: positive: Alert ED Treatment Course - LABORATORY CBC & Chemistry Diagram: 05/10/17 08:55 05/10/17 08:55 Medical Decision Making - Medical Decision Making 05/10/17 11:41 57 y.o. male with significant cardiac history presents with acute onset of stabbing back pain that radiates to his chest. DDx includes aortic dissection, AAA, NH, CHF exacerbation, HTN emergency. Will obtain basic labs and likely Abdominal CTA pending renal function. Repeat SBP 170's --> will give Labetalol and monitor closely. 05/10/17 12:32 Repeat SBP 140's. Patient resting comfortably. CT Abdomen reviewed -- wet read shows normal sized aorta. Case d/w Cardiology, agree with plan for inpatient admission and ISABELLA. 05/10/17 12:46 UDS positive for cocaine and opiates -- likely source of hypertensive emergency however given h/o HTN, obesity, nicotine use, aortic dissection remains on differential. Repeat BP 140's/80's. Patient admitted to inpatient medicine service will continue to monitor while in ED. *DC/Admit/Observation/Transfer Diagnosis at time of Disposition: Back pain Qualifiers: Back pain location: thoracic back pain Chronicity: acute - Referrals - Patient Instructions - Post Discharge Activity
--- NOTE | 2017-05-10 08:21 | PDOC ---
Attending Attestation - Resident Resident Name: Marlene Buchanan - HPI HPI: 05/10/17 11:14 Pt presents to the ED complaining of the acute onset of chest and back pain that woke him from sleep at 4 am. Patient has an extensive cardiac history. Pain is worse with twisting motions of the chest and back. - Physicial Exam PE: 05/10/17 11:38 Agree with resident exam. Patient is alert and oriented and in no acute distress. No abdominal tenderness. Normal aortic outflow tract on POCUS. He is ambulatory in the Ed. - Medical Decision Making 05/10/17 11:44 Pt presents to the ED complaining of chest pain and back pain. Differential includes musculoskeletal pain, ACS, less likely AAA or dissection. Patient is comfortable and we believe him to be low risk for dissection. However, given his hypertension and other risk factors, it does remain on the differential. Cr is 2.3--we do not feel that the risk of CTA outweighs the benefits, given that he is low risk for dissection Cardiology paged for ECHO--marketing writer is unable to perform ECHO at this time but recommends CTA. CTA performed which shows apparently normal LV outflow tract. Will admit to medicine and give BP control.
--- NOTE | 2017-05-10 08:22 | PDOC ---
History of Present Illness - General Chief Complaint: Back Pain Stated Complaint: R SIDED BACK PAIN Time Seen by Provider: 05/10/17 08:05 History Source: Patient Exam Limitations: No Limitations - History of Present Illness Initial Comments: 05/10/17 08:18 CHIEF COMPLAINT: [Lower back pain] HISTORY OF PRESENT ILLNESS: 57-year-old male with history of ID, chronic mid back pain and right knee pain presents with sudden onset of right lateral lower and mid back pain described as stabbing which started approximately 3 hours prior to arrival, woke him up from sleep. Denies similar pain in the past. Denies any urinary symptoms. No hematuria. Occasional radiating pain to right upper thigh, no neurosensory deficits, no bowel or bladder difficulty incontinence or urinary retention, no saddle anesthesia, no footdrop. No history of IVDU or history of cancer. ] REVIEW OF SYSTEMS: GENERAL: Afebrile, denies any weakness RESPIRATORY: No cough, wheezing, or hemoptysis. CARDIAC: No chest pain or shortness of breath MUSCULOSKELETAL: Pain to right lateral lower and mid back. No point tenderness. SKIN : No erythema, no bruising, no deformity. GI/: Denies any abdominal pain, no urinary difficulty, incontinence or urinary retention. RECTAL: Denies any difficulty this A.m. NEUROLOGICAL: Denies any numbness or tingling. No neurosensory deficits. PHYSICAL EXAM: GENERAL: The patient is awake, alert, and fully oriented, in no acute distress. RESPIRATORY: Lungs clear bilaterally, no rhonchi wheezes or crackles CARDIAC: S1-S2 audible, no murmur rub or gallop MUSCULOSKELETAL: Pain to right mid and lower back, nonradiating, no direct spinal point tenderness. No tingling or sensory deficit. Less than 2 second cap refill, +4 popliteal and pedal pulses. No CVA tenderness. GI/: Abdomen soft, nontender, nondistended. No rebound tenderness. No masses palpable. MUSCULOSKELETAL: No spinal point tenderness. Normal reflexive and no deficits to sensation or strength. RECTAL: [Deferred patient with no neurological findings] SKIN: Warm, Dry, normal turgor, no erythema, no edema no bruising. 05/10/17 08:32 Past History - Past Medical History Allergies/Adverse Reactions: Allergies Allergy/AdvReac Type Severity Reaction Status Date / Time IRMA Inhibitors Allergy Verified 05/10/17 07:32 Home Medications: Ambulatory Orders Aspirin 81 mg PO DAILY 05/10/17 Atorvastatin Ca [Lipitor] 40 mg PO HS 05/10/17 Ergocalciferol [Vitamin D2] 50,000 unit PO Q7D@1000 05/10/17 Furosemide [Lasix -] 40 mg PO DAILY 05/10/17 Glipizide 5 mg PO BID 05/10/17 Hydralazine HCl 100 mg PO TID 05/10/17 Meloxicam [Mobic (Nf) -] 15 mg PO DAILY 05/10/17 Nifedipine [Procardia Xl] 60 mg PO DAILY 05/10/17 Valsartan 320 mg PO DAILY 05/10/17 Anemia: No Asthma: Yes Cancer: No Cardiac Disorders: Yes (ACS,ID X 3,NO STENTS) CVA: No COPD: No CHF: No Dementia: No Diabetes: Yes GI Disorders: No Disorders: No HTN: Yes Hypercholesterolemia: Yes Kidney Stones: No Liver Disease: No Seizures: No Thyroid Disease: No - Surgical History Abdominal Surgery: No Appendectomy: No Cardiac Surgery: No Cholecystectomy: No Lung Surgery: No Neurologic Surgery: No Orthopedic Surgery: Yes (old orthopedic injury fractured left ankle x2) - Reproductive History Testicular Surgery: No - Immunization History Immunization Up to Date: Yes - Suicide/Smoking/Psychosocial Hx Smoking Status: No Smoking History: Current some day smoker Have you smoked in the past 12 months: Yes Number of Cigarettes Smoked Daily: 3 Information on smoking cessation initiated: No 'Breaking Loose' booklet given: 01/12/17 Hx Alcohol Use: Yes (beer) Drug/Substance Use Hx: Yes (cocaine 1x) Substance Use Type: Cocaine Hx Substance Use Treatment: Yes ([facility]- 2013) Trauma Specific PMHX - Complaint Specific PMHX Arthritis: Yes (BACK, RIGHT KNEE AND ANKLE) *Physical Exam - Vital Signs Last Vital Signs Temp Pulse Resp BP Pulse Ox 98.2 F 98 H 19 162/107 96 05/10/17 07:33 05/10/17 07:33 05/10/17 07:33 05/10/17 07:33 05/10/17 07:33 ED Treatment Course - LABORATORY CBC & Chemistry Diagram: 05/10/17 08:55 05/10/17 08:55 Medical Decision Making - Medical Decision Making 05/10/17 08:35 A/P: Patient with right lateral mid and lower back pain sudden onset 3 hours prior to arrival. During examination patient started to pound on his chest asking if it's normal for his heart flutter. He reports after he hit his chest fluttering stops. Reports pain to left upper arm. Patient sent to main emergency department for higher level of care report to Dr. Buchanan and Gabriella RN. Patient stable for transfer. *DC/Admit/Observation/Transfer Diagnosis at time of Disposition: Back pain - Referrals Referrals: Lenny Hernandez MD [Primary Care Provider] - - Patient Instructions - Post Discharge Activity
[2017-05-10 09:15] LABS: BASO % 0.3 % (0-2.0); EOS % 0.4 % (0-4.5); HEMATOCRIT 37.5 % (35.4-49); HEMOGLOBIN 12.3 GM/dL (11.7-16.9); LYMPH % 5.9 % (8-40); MCH 30.2 pg (25.7-33.7); MCHC 32.7 g/dl (32.0-35.9); MEAN CELL VOLUME 92.4 fl (80-96); MEAN PLT VOLUME 7.3 fl (7.5-11.1); MONO % 4.1 % (3.8-10.2); NEUT % 89.3 % (42.8-82.8); PLATELET COUNT 359 K/MM3 (134-434); RBC 4.06 M/mm3 (4.00-5.60); RDW 14.6 % (11.9-15.9); WHITE BLOOD COUNT 11.9 K/mm3 (4.0-10.0)
[2017-05-10 09:36] LABS: ALBUMIN 3.7 g/dl (3.4-5.0); ANION GAP 10 (8-16); BILIRUBIN,TOTAL 0.4 mg/dL (0.2-1.0); BLOOD UREA NITROGEN 29 mg/dL (7-18); CALCIUM 8.5 mg/dL (8.5-10.1); CHLORIDE 103 mmol/L (98-107); CO2 22 mmol/L (21-32); CREATININE 2.3 mg/dL (0.7-1.3); GLUCOSE,RANDOM 197 mg/dL (74-106); POTASSIUM 4.3 mmol/L (3.5-5.1); SGOT/AST 19 U/L (15-37); SGPT/ALT 22 U/L (12-78); SODIUM 135 mmol/L (136-145); TOT PROT 7.5 g/dl (6.4-8.2)
[2017-05-10 09:37] LABS: ALK PHOS 135 U/L (45-117); N-TERMINAL BNP 250.62 pg/ml (5-125)
[2017-05-10] MEDS ORDERED: LABETALOL HCL 5 MG/1 ML (100MG/20 ML VIAL) IVPUSH ONE (09:57)
[2017-05-10] MEDS ORDERED: morphine CARPU-JECT 4 MG/1 ML DISP.SYRIN IVPUSH ONE (10:02)
--- NOTE | 2017-05-10 10:34 | HP ---
CHIEF COMPLAINT: "I had the worst back pain" PCP: Dr. Hernandez HISTORY OF PRESENT ILLNESS: Patient is a 56 year old male with underlying history of bronchial asthma, coronary artery disease s/p PCI/stent, [place], history of ACS, hypertension, NIDDM, non-ischemic dilated cardiomopathy with congestive heart failure, systolic/diastolic left ventricular dysfinction and substance abuse ( cocaine) who presents to ED due to severe R flank pain that radiates to L lower sternal boarder. patient states that he has never had tis type of pain befre, it was 10/10, sharp, aggravated by deep inspiration and movement and woke him up from sleep. It is now completely remitted s/p morphine. He denies palpitations, sob, chest pressure, cough, diaphoresis, h/a, dizziness, peripheral edema, weight gain, appetite change. Denies recent cocaine use. States he drinks 8-10 botles of water/day (4-5L). He ate a light vegetable meal last night. he denies f/c, n/v, diarrhea, constipation, melena, hematochezia, dysuria but does report transient pelvic pain 3 days ago. he states his abdomen is more distended than usual today. Last normal bm 3 days ago ER course was notable for: (1) labs (2) ekg: no evidence of acs; CXR: cardiomegaly, stable from before; abd ct: no acute pathology (3) labetalol, morphine Recent Travel: denies PAST MEDICAL HISTORY: as above PAST SURGICAL HISTORY: denies Social History: Smokin.5 cigarettes/day Alcohol: 1 beer every other day Drugs: Cocaine (last use 4 weeks ago), marijuana Family History: unknown Allergies IRMA Inhibitors Allergy (Verified 05/10/17 07:32) HOME MEDICATIONS: Home Medications Medication Instructions Recorded Aspirin 81 mg PO DAILY 05/10/17 Atorvastatin Ca [Lipitor] 40 mg PO HS 05/10/17 Ergocalciferol [Vitamin D2] 50,000 unit PO Q7D@1000 05/10/17 Furosemide [Lasix -] 40 mg PO DAILY 05/10/17 Glipizide 5 mg PO BID 05/10/17 Hydralazine HCl 100 mg PO TID 05/10/17 Meloxicam [Mobic (Nf) -] 15 mg PO DAILY 05/10/17 Nifedipine [Procardia Xl] 60 mg PO DAILY 05/10/17 Valsartan 320 mg PO DAILY 05/10/17 REVIEW OF SYSTEMS CONSTITUTIONAL: Absent: fever, chills, diaphoresis, generalized weakness, malaise, loss of appetite, weight change HEENT: Absent: rhinorrhea, nasal congestion, throat pain CARDIOVASCULAR: Absent: syncope, palpitations, irregular heart rate, lightheadedness, peripheral edema RESPIRATORY: Absent: cough, shortness of breath, orthopnea, wheezing, stridor, hemoptysis GASTROINTESTINAL: Absent: abdominal pain, nausea, vomiting, diarrhea, constipation, melena, hematochezia GENITOURINARY: Absent: dysuria MUSCULOSKELETAL: Absent: myalgia, arthralgia SKIN: Absent: rash, itching, pallor HEMATOLOGIC/IMMUNOLOGIC: Absent: easy bleeding, easy bruising, lymphadenopathy, frequent infections ENDOCRINE: Absent: unexplained weight gain, unexplained weight loss, heat intolerance, cold intolerance NEUROLOGIC: Absent: headache, focal weakness or paresthesias PSYCHIATRIC: Absent: anxiety, depression PHYSICAL EXAMINATION Vital Signs - 24 hr 05/10/17 05/10/17 05/10/17 07:33 08:55 08:57 Temperature 98.2 F Pulse Rate 98 H Pulse Rate [ 93 H 91 H Right Radial] Respiratory 19 16 18 Rate Blood Pressure 162/107 Blood Pressure 182/118 177/113 [Left Arm] Blood Pressure [Right Arm] O2 Sat by Pulse 96 98 98 Oximetry (%) 05/10/17 08:59 Temperature Pulse Rate Pulse Rate [ 91 H Right Radial] Respiratory 18 Rate Blood Pressure Blood Pressure [Left Arm] Blood Pressure 176/109 [Right Arm] O2 Sat by Pulse 98 Oximetry (%) Patient examined after morphine administration GENERAL: Awake, alert, and fully oriented, in no acute distress. HEAD: Normal with no signs of trauma. EYES: Pupils equal, round and reactive to light, extraocular movements intact, sclera anicteric, conjunctiva clear. No lid lag. EARS, NOSE, THROAT: Moist mucous membranes. NECK: supple + JVD LUNGS: Breath sounds equal, clear to auscultation bilaterally. HEART: Regular rate and rhythm, normal S1 and S2 systolic murmur at L upper sternal boarder, split s1 ABDOMEN: Soft, mildly tender RUQ, mildly distended, hyperactive bowel sounds, no guarding, no rebound, no masses. MUSCULOSKELETAL: No CVA tenderness. UPPER EXTREMITIES: 2+ pulses, warm, well-perfused. No cyanosis. No clubbing. No peripheral edema. LOWER EXTREMITIES: 2+ pulses, warm, well-perfused. No calf tenderness. trace peripheral edema. NEUROLOGICAL: Cranial nerves II-XII grossly intact. Normal speech. PSYCHIATRIC: Cooperative. Good eye contact. Appropriate mood and affect. SKIN: Warm, dry Laboratory Results - last 24 hr 05/10/17 05/10/17 08:55 08:55 WBC 11.9 H RBC 4.06 Hgb 12.3 Hct 37.5 MCV 92.4 MCH 30.2 MCHC 32.7 RDW 14.6 Plt Count 359 D MPV 7.3 L Neutrophils % 89.3 H D Lymphocytes % 5.9 L D Monocytes % 4.1 Eosinophils % 0.4 Basophils % 0.3 Sodium 135 L Potassium 4.3 Chloride 103 Carbon Dioxide 22 D Anion Gap 10 BUN 29 H Creatinine 2.3 H D Creat Clearance w eGFR 29.56 Random Glucose 197 H D Calcium 8.5 Total Bilirubin 0.4 D AST 19 ALT 22 D Alkaline Phosphatase 135 H Creatine Kinase 126 Troponin I < 0.02 B-Natriuretic Peptide 250.62 H Total Protein 7.5 Albumin 3.7 ASSESSMENT/PLAN: Patient is a 56 year old male with underlying history of bronchial asthma, coronary artery disease s/p PCI/stent, [place], history of ACS, hypertension, NIDDM, non-ischemic dilated cardiomopathy with congestive heart failure, systolic/diastolic left ventricular dysfinction and substance abuse ( cocaine) who presents to ED due to severe R flank pain that radiates to L lower sternal boarder. R Flank Pain -renal vs GB vs musculoskeletal -mild leukocytosis 11 with left shift -T bili, LFTs wnl -f/u renal US and GB US -tylenol PRN for pain Atypical chest pain -resolved -possibly radiation from above back pain -musculoskeletal vs gi/gu -unlikley cardiac -trop - x 1, trend one more; BNP below baseline; ekg unremarkable; evidence of dissection on CT -f/u cardiology consult -tte -tele monitoring -f/u u tox known cocaine user GOGO -BUN/Cret 29/2.3 above baseline 1.6; GRT9 below baseline 52 -Ct abd w/o contrast possibly dilated R renal pelvis, possible hydro on bedside US -f/u official Renal/bladder US; suspect obstruction Hyponatremia -Na 135; likely due to polydypsia -fluid restrict to 2L/day NIDDM -hold po meds; -ISS, BGM CAD -Increase Carvedilol to 12.5 mg BID -continue asa HTN -Hold Diovan -Continue lasix, aldctone, imdur, Hydralazine, Procardia XL HLD -continue statin FEN no IVF hyponatremia will correct with fluid restriction diabetic low na diet hep sq Adm tele Problem List - Problem (1) Kogyo-ap-uthhlzf kidney injury Code(s): N17.9 - ACUTE KIDNEY FAILURE, UNSPECIFIED; N18.9 - CHRONIC KIDNEY DISEASE, UNSPECIFIED Qualifiers: Chronic kidney disease stage: stage 3 (moderate) (2) Back pain Code(s): M54.9 - DORSALGIA, UNSPECIFIED Qualifiers: Back pain location: thoracic back pain Chronicity: acute (3) CAD (coronary artery disease) Code(s): I25.10 - ATHSCL HEART DISEASE OF [place] CORONARY ARTERY W/O ANG PCTRS Qualifiers: Coronary Disease-Associated Artery/Lesion type: [place] artery [place] vs. transplanted heart: [place] heart Associated angina: without angina Qualified Code(s): I25.10 - Atherosclerotic heart disease of [place] coronary artery without angina pectoris (4) Chest pain Code(s): R07.9 - CHEST PAIN, UNSPECIFIED Qualifiers: Chest pain type: pleurodynia Qualified Code(s): R07.81 - Pleurodynia (5) Cocaine abuse Code(s): F14.10 - COCAINE ABUSE, UNCOMPLICATED (6) History of percutaneous coronary intervention Code(s): Z98.890 - OTHER SPECIFIED POSTPROCEDURAL STATES (7) Hypertensive emergency Code(s): I10 - ESSENTIAL (PRIMARY) HYPERTENSION (8) Nicotine abuse Code(s): Z72.0 - TOBACCO USE (9) Shortness of breath Code(s): R06.02 - SHORTNESS OF BREATH (10) CKD (chronic kidney disease) stage 3, GFR 30-59 ml/min Code(s): N18.3 - CHRONIC KIDNEY DISEASE, STAGE 3 (MODERATE) (11) Diabetes Code(s): E11.9 - TYPE 2 DIABETES MELLITUS WITHOUT COMPLICATIONS Qualifiers: Diabetes mellitus type: type 2 Diabetes mellitus snf insulin use: without snf use Chronic kidney disease stage: stage 2 (mild) (12) HTN (hypertension) Code(s): I10 - ESSENTIAL (PRIMARY) HYPERTENSION Qualifiers: Hypertension type: essential hypertension Qualified Code(s): I10 - Essential (primary) hypertension (13) History of myocardial infarction Code(s): I25.2 - OLD MYOCARDIAL INFARCTION (14) Hyperglycemia due to type 2 diabetes mellitus Code(s): E11.65 - TYPE 2 DIABETES MELLITUS WITH HYPERGLYCEMIA (15) Hyperlipidemia Code(s): E78.5 - HYPERLIPIDEMIA, UNSPECIFIED Qualifiers: Hyperlipidemia type: pure hypercholesterolemia Qualified Code(s): E78.00 - Pure hypercholesterolemia, unspecified Visit type - Emergency Visit Emergency Visit: Yes ED Registration Date: 05/10/17 Care time: The patient presented to the Emergency Department on the above date and was hospitalized for further evaluation of their emergent condition. - New Patient This patient is new to me today: Yes Date on this admission: 05/11/17 - Critical Care Critical Care patient: No Hospitalist Screening - Colonoscopy Questionnaire Colonoscopy Questionnaire: Colonoscopy Questionnaire - Patient: 50 - 75 years old and never had a screening colonoscopy: Yes History of colon or rectal polyps, or CA: No History of IBD, Crohn's disease or UC: No History of abdominal radiation therapy as a child: No - Relative: 1 with colon or rectal CA, or polyps at age 60 or younger: No Colon or rectal CA diagnosed at age 45 or younger: No Multiple relatives with colon or rectal CA: No - Outcome: Screening Result: Positive Screen
[2017-05-10] MEDS ORDERED: morphine SULFATE 4 MG/ML VIAL ONE (10:42)
[2017-05-10] MEDS ORDERED: LABETALOL HCL 5 MG/1 ML (200MG/40ML VIAL) IVPB ONE (10:42)
[2017-05-10] MEDS ORDERED: ACETAMINOPHEN 325 MG TABLET (FP) PO PRN (12:15)
[2017-05-10 12:27] LABS: URINE APPEARANCE CLEAR; URINE BILIRUBIN NEGATIVE (NEGATIVE); URINE BLOOD NEGATIVE (NEGATIVE); URINE COLOR STRAW; URINE GLUCOSE (UA) NEGATIVE (NEGATIVE); URINE KETONE NEGATIVE (NEGATIVE); URINE LEUK ESTERASE NEGATIVE (NEGATIVE); URINE NITRITE NEGATIVE (NEGATIVE); URINE PROTEIN NEGATIVE (NEGATIVE); URINE UROBILINOGEN NEGATIVE mg/dL (0.2-1.0)
[2017-05-10 12:30] LABS: COCAINE, UR POSITIVE ng/ml (CUTOFF=300); METHADONE, UR NEGATIVE ng/ml (CUTOFF=300); PHENCYCLIDINE,URINE NEGATIVE ng/ml (CUTOFF=25); URINE AMPHETAMINES NEGATIVE ng/ml (CUTOFF=500); URINE BARBITURATES NEGATIVE ng/ml (CUTOFF=200); URINE BENZODIAZEPINES NEGATIVE ng/ml (CUTOFF=200)
[2017-05-10] MEDS ORDERED: VALSARTAN 160 MG TABLET (UD) PO SCH (12:30)
[2017-05-10 12:31] LABS: OPIATES, URI POSITIVE ng/ml (CUTOFF=300)
--- NOTE | 2017-05-10 12:49 | CON.CARD ---
Consult Consult Specialty:: Cardiology Referred by:: Hospitalist Medicine Reason for Consultation:: Back and Chest pain - History of Present Illness Chief Complaint: Back and Chest pain History of Present Illness: Patient is a 56 year old male with underlying history of bronchial asthma, coronary artery disease s/p PCI/stent, [place], history of ACS, hypertension, NIDDM, non-ischemic dilated cardiomopathy with congestive heart failure, systolic/diastolic left ventricular dysfunction and substance abuse ( cocaine) who presents to ED with acute onset of chest and back pain that woke him from sleep at 4 am. Pain is worse with twisting motions of the chest and back, improved with morphine, some pleurisy. He reports dyspnea on exertion at baseline, denies chest pain or palpitations, near ot true syncope paroxysmal nocturnal dyspnea, orthopnea, lower extremity edema. - History Source History Provided By: Patient Limitations to Obtaining History: No Limitations - Past Medical History Cardio/Vascular: Yes: CAD (S/P PCI), HTN, Hyperlipdemia, [place], Other (dilated cardiomyopathy (nonischemic), LV systolic dysfunction, ) Gastrointestinal: Yes: GERD Renal/: Yes: Renal Inusuff Musculoskeletal: Yes: Chronic low back pain Additional Medical History: rt achilles tendon tear. rt testicular torsion - Alcohol/Substance Use Hx Alcohol Use: Yes (beer) Number of Drinks Daily: 3 (beer) History of Substance Use: reports: Cocaine - Smoking History Smoking history: Current some day smoker Have you smoked in the past 12 months: Yes Aproximately how many cigarettes per day: 3 - Social History ADL: Independent Occupation: Employed History of Recent Travel: No Home Medications - Allergies Allergies/Adverse Reactions: Allergies Allergy/AdvReac Type Severity Reaction Status Date / Time IRMA Inhibitors Allergy Verified 05/10/17 07:32 - Home Medications Home Medications: Ambulatory Orders Aspirin 81 mg PO DAILY 05/10/17 Atorvastatin Ca [Lipitor] 40 mg PO HS 05/10/17 Carvedilol [Coreg -] 12.5 mg PO DAILY 05/10/17 Ergocalciferol [Vitamin D2] 50,000 unit PO Q7D@1000 05/10/17 Furosemide [Lasix -] 40 mg PO DAILY 05/10/17 Glipizide 5 mg PO BID 05/10/17 Hydralazine HCl 100 mg PO TID 05/10/17 Isosorbide Mononitrate [Imdur -] 30 mg PO DAILY 05/10/17 Meloxicam [Mobic (Nf) -] 15 mg PO DAILY 05/10/17 Nifedipine [Procardia Xl] 60 mg PO DAILY 05/10/17 Spironolactone [Aldactone] 50 mg PO DAILY 05/10/17 Valsartan 320 mg PO DAILY 05/10/17 Family Disease History - Family Disease History Family Disease History: Diabetes: Sister, Other: Brother (DRUGS) Review of Systems - Review of Systems Cardiovascular: reports: Chest Pain Musculoskeletal: reports: Back Pain Vital Signs: Vital Signs Temperature 98.2 F 05/10/17 07:33 Pulse Rate 83 05/10/17 12:02 Respiratory Rate 17 05/10/17 12:02 Blood Pressure 164/112 05/10/17 12:02 O2 Sat by Pulse Oximetry (%) 98 05/10/17 12:02 Constitutional: Yes: No Distress, Calm Neck: Yes: Supple Respiratory: Yes: Regular, CTA Bilaterally Gastrointestinal: Yes: Normal Bowel Sounds, Soft Cardiovascular: Yes: Regular Rate and Rhythm JVD: No Carotid Bruit: No Heart Sounds: Yes: S1, S2 Edema: No - Other Data Labs, Other Data: CBC, BMP 05/10/17 08:55 05/10/17 08:55 Troponin, BNP 05/10/17 08:55 Troponin I < 0.02 B-Natriuretic Peptide 250.62 H Troponin, BNP 05/10/17 08:55 Troponin I < 0.02 B-Natriuretic Peptide 250.62 H NSR @ 92 PVC Imaging - Results Chest X-ray: Report Reviewed (NAD) Cat Scan: Report Reviewed (Resolution of bilateral patchy infiltrates) Problem List - Problems (1) Akquv-bu-mguobck kidney injury Code(s): N17.9 - ACUTE KIDNEY FAILURE, UNSPECIFIED; N18.9 - CHRONIC KIDNEY DISEASE, UNSPECIFIED Qualifiers: Chronic kidney disease stage: stage 3 (moderate) (2) Back pain Code(s): M54.9 - DORSALGIA, UNSPECIFIED Qualifiers: Back pain location: thoracic back pain Chronicity: acute (3) CAD (coronary artery disease) Code(s): I25.10 - ATHSCL HEART DISEASE OF [place] CORONARY ARTERY W/O ANG PCTRS Qualifiers: Coronary Disease-Associated Artery/Lesion type: [place] artery [place] vs. transplanted heart: [place] heart Associated angina: without angina Qualified Code(s): I25.10 - Atherosclerotic heart disease of [place] coronary artery without angina pectoris (4) Chest pain Code(s): R07.9 - CHEST PAIN, UNSPECIFIED Qualifiers: Chest pain type: pleurodynia Qualified Code(s): R07.81 - Pleurodynia (5) Diastolic dysfunction without heart failure Code(s): I51.9 - HEART DISEASE, UNSPECIFIED (6) History of percutaneous coronary intervention Code(s): Z98.890 - OTHER SPECIFIED POSTPROCEDURAL STATES (7) Hypertensive urgency Code(s): I16.0 - HYPERTENSIVE URGENCY (8) Diabetes Code(s): E11.9 - TYPE 2 DIABETES MELLITUS WITHOUT COMPLICATIONS Qualifiers: Diabetes mellitus type: type 2 Diabetes mellitus senior care insulin use: without senior care use Chronic kidney disease stage: stage 2 (mild) (9) HTN (hypertension) Code(s): I10 - ESSENTIAL (PRIMARY) HYPERTENSION Qualifiers: Hypertension type: essential hypertension Qualified Code(s): I10 - Essential (primary) hypertension (10) History of myocardial infarction Code(s): I25.2 - OLD MYOCARDIAL INFARCTION (11) Hyperlipidemia Code(s): E78.5 - HYPERLIPIDEMIA, UNSPECIFIED Qualifiers: Hyperlipidemia type: pure hypercholesterolemia Qualified Code(s): E78.00 - Pure hypercholesterolemia, unspecified Assessment/Plan 05/22/2016 Mod cLVH, normal LV fxn, mod MR 1. Atypical chest pain, suspect musculoskeletal etiology 2. Chronic diastolic dysfunction 3. Coronary artery disease, history of ME, PCI/stent, history of ME 4. Hypertension 5. Hypercholesterolemia 6. Diabetes mellitus 7. Acute on CKD PLAN: 1. Ruling out for ME, f/u repeat echo results 2. Continue Hydralazine and Procardia XL 60 qd, Diovan once renal fxn stable 3. Continue Lasix 40 qd, Carvedilol 12.5 bid, Lipitor 40 qhs, ASA 81 qd 4. Thank you for consultative opportunity, analgesia as needed
[2017-05-10] MEDS: CARVEDILOL 12.5 MG TABLET (FP) PO SCH (16:08)
[2017-05-10] MEDS: ISOSORBIDE MONONITRATE 30 MG TAB.SR.24H (FP) PO SCH (16:09)
[2017-05-10] MEDS: INSULIN SLIDING SCALE (NOVOLOG) 1 VIAL SQ SCH ×2 (17:19→22:37)
--- NOTE | 2017-05-10 17:37 | PN ---
Teaching Attending Note Name of Resident: Jessica Henson ATTENDING PHYSICIAN STATEMENT I saw and evaluated the patient. I reviewed the resident's note and discussed the case with the resident. I agree with the resident's findings and plan as documented. SUBJECTIVE: presents with sharp constant 12/10 rt lower back pain, now resolved with morphine but having a chest pressure on the left side. OBJECTIVE: currently comfortable, NAD CV: RRR nom/r/g US abd negative CT Chest non contrast negative BNP 250 Cr 2.3 UTox cocaine positive ASSESSMENT AND PLAN: 57M with diastolic heart failure presents with atypical likely musculoskeletal pains initially in lower back and now in chest. Also has GOGO, unclear etiology, though vasospasm from cocaine possiblity as well check urine lytes , monitor Cr continue Heart failure meds trend troponins
--- NOTE | 2017-05-10 17:37 | EKG ---
Test Reason : Blood Pressure : / mmHG Vent. Rate : 092 BPM Atrial Rate : 092 BPM P-R Int : 174 ms QRS Dur : 100 ms QT Int : 380 ms P-R-T Axes : 065 025 050 degrees QTc Int : 469 ms SINUS RHYTHM WITH OCCASIONAL PREMATURE VENTRICULAR COMPLEXES POSSIBLE LEFT ATRIAL ENLARGEMENT POSSIBLE INFERIOR INFARCT (CITED ON OR BEFORE 10-MAY-2017) ABNORMAL ECG WHEN COMPARED WITH ECG OF 23-FEB-2017 09:37, PREMATURE VENTRICULAR COMPLEXES ARE NOW PRESENT ST NO LONGER ELEVATED IN INFERIOR LEADS T WAVE INVERSION NO LONGER EVIDENT IN ANTERIOR LEADS Confirmed by ANTONIO MCCAULEY MD ([id number]) on 05/10/2017 5:36:44 PM Referred By: Confirmed By:ANTONIO MCCAULEY MD
[2017-05-10] MEDS: HEPARIN NA (PORCINE) 5,000 UNITS/ML 1ML VIAL SQ SCH (22:36)
[2017-05-10] MEDS: ATORVASTATIN CA 40 MG TABLET (FP) PO SCH (22:36)
[2017-05-10] MEDS: hydrALAZINE HCL 25 MG TABLET (FP) PO SCH (22:36)
[2017-05-11] MEDS: INSULIN SLIDING SCALE (NOVOLOG) 1 VIAL SQ SCH ×4 (06:27→21:37)
[2017-05-11 08:02] LABS: BASO % 0.4 % (0-2.0); EOS % 2.1 % (0-4.5); HEMATOCRIT 33.5 % (35.4-49); HEMOGLOBIN 11.1 GM/dL (11.7-16.9); LYMPH % 19.3 % (8-40); MCH 30.6 pg (25.7-33.7); MEAN CELL VOLUME 92.7 fl (80-96); MEAN PLT VOLUME 7.5 fl (7.5-11.1); MONO % 8.7 % (3.8-10.2); NEUT % 69.5 % (42.8-82.8); PLATELET COUNT 327 K/MM3 (134-434); RBC 3.62 M/mm3 (4.00-5.60); RDW 14.6 % (11.9-15.9); WHITE BLOOD COUNT 8.1 K/mm3 (4.0-10.0)
[2017-05-11 08:24] LABS: ALBUMIN 3.2 g/dl (3.4-5.0); ANION GAP 8 (8-16); BLOOD UREA NITROGEN 28 mg/dL (7-18); CALCIUM 8.1 mg/dL (8.5-10.1); CHLORIDE 105 mmol/L (98-107); CHOLESTEROL 135 mg/dL (50-200); CO2 25 mmol/L (21-32); CREATININE 2.4 mg/dL (0.7-1.3); GLUCOSE,RANDOM 184 mg/dL (74-106); MAGNESIUM 2.3 mg/dL (1.8-2.4); SGOT/AST 12 U/L (15-37); SGPT/ALT 15 U/L (12-78); SODIUM 138 mmol/L (136-145)
[2017-05-11 08:27] LABS: ALK PHOS 106 U/L (45-117); BILIRUBIN,TOTAL 0.3 mg/dL (0.2-1.0); HDL CHOLESTEROL 38 mg/dL (40-60); LDL CHOLESTEROL (ONLY SJRH) 70 mg/dL (5-100); PHOSPHOROUS 4.3 mg/dL (2.5-4.9); TOT PROT 6.6 g/dl (6.4-8.2); TRIGLYCERIDES 69 mg/dL (35-160)
[2017-05-11] MEDS ORDERED: FUROSEMIDE 40 MG TABLET (FP) PO SCH (10:00)
--- NOTE | 2017-05-11 10:13 | PN ---
Progress Note, Physician History of Present Illness: No further chest discomfort, ruled out for ME. - Current Medication List Current Medications: Active Medications Acetaminophen (Tylenol -) 650 mg PO Q4H PRN PRN Reason: PAIN LEVEL 1-5 Aspirin (Asa -) 81 mg PO DAILY [facility] Atorvastatin Calcium (Lipitor -) 40 mg PO HS [facility] Last Admin: 05/10/17 22:36 Dose: 40 mg Carvedilol (Coreg -) 12.5 mg PO DAILY [facility] Last Admin: 05/10/17 16:08 Dose: 12.5 mg Ergocalciferol (Drisdol -) 50,000 unit PO Q7D@1000 [facility] Furosemide (Lasix -) 40 mg PO DAILY [facility] Heparin Sodium (Porcine) (Heparin -) 5,000 unit SQ TID [facility] Last Admin: 05/10/17 22:36 Dose: 5,000 unit Hydralazine HCl (Apresoline -) 100 mg PO TID [facility] Last Admin: 05/10/17 22:36 Dose: 100 mg Insulin Aspart (Novolog Vial Sliding Scale -) 1 vial SQ ACHS [facility] PRN Reason: Protocol Last Admin: 05/11/17 06:27 Dose: 2 units Isosorbide Mononitrate (Imdur -) 30 mg PO DAILY [facility] Last Admin: 05/10/17 16:09 Dose: 30 mg Nifedipine (Procardia Xl -) 60 mg PO DAILY [facility] - Objective Vital Signs: Vital Signs Temperature 97.8 F 05/11/17 06:40 Pulse Rate 82 05/11/17 06:40 Respiratory Rate 18 05/11/17 06:40 Blood Pressure 151/99 05/11/17 06:40 O2 Sat by Pulse Oximetry (%) 98 05/10/17 21:00 Constitutional: Yes: No Distress, Calm Neck: Yes: Supple Cardiovascular: Yes: Regular Rate and Rhythm Respiratory: Yes: Regular, CTA Bilaterally Gastrointestinal: Yes: Normal Bowel Sounds, Soft Edema: No Labs: CBC, BMP 05/11/17 07:30 05/11/17 07:30 Problem List - Problems (1) [id number] kidney injury Code(s): N17.9 - ACUTE KIDNEY FAILURE, UNSPECIFIED; N18.9 - CHRONIC KIDNEY DISEASE, UNSPECIFIED Qualifiers: Chronic kidney disease stage: stage 3 (moderate) (2) Back pain Code(s): M54.9 - DORSALGIA, UNSPECIFIED Qualifiers: Back pain location: thoracic back pain Chronicity: acute (3) CAD (coronary artery disease) Code(s): I25.10 - ATHSCL HEART DISEASE OF [place] CORONARY ARTERY W/O ANG PCTRS Qualifiers: Coronary Disease-Associated Artery/Lesion type: [place] artery [place] vs. transplanted heart: [place] heart Associated angina: without angina Qualified Code(s): I25.10 - Atherosclerotic heart disease of [place] coronary artery without angina pectoris (4) Chest pain Code(s): R07.9 - CHEST PAIN, UNSPECIFIED Qualifiers: Chest pain type: pleurodynia Qualified Code(s): R07.81 - Pleurodynia (5) Diastolic dysfunction without heart failure Code(s): I51.9 - HEART DISEASE, UNSPECIFIED (6) History of percutaneous coronary intervention Code(s): Z98.890 - OTHER SPECIFIED POSTPROCEDURAL STATES (7) Hypertensive urgency Code(s): I16.0 - HYPERTENSIVE URGENCY (8) Diabetes Code(s): E11.9 - TYPE 2 DIABETES MELLITUS WITHOUT COMPLICATIONS Qualifiers: Diabetes mellitus type: type 2 Diabetes mellitus alf insulin use: without dedicated intermodal truck driver use Chronic kidney disease stage: stage 2 (mild) (9) HTN (hypertension) Code(s): I10 - ESSENTIAL (PRIMARY) HYPERTENSION Qualifiers: Hypertension type: essential hypertension Qualified Code(s): I10 - Essential (primary) hypertension (10) History of myocardial infarction Code(s): I25.2 - OLD MYOCARDIAL INFARCTION (11) Hyperlipidemia Code(s): E78.5 - HYPERLIPIDEMIA, UNSPECIFIED Qualifiers: Hyperlipidemia type: pure hypercholesterolemia Qualified Code(s): E78.00 - Pure hypercholesterolemia, unspecified Assessment/Plan 05/22/2016 Mod cLVH, normal LV fxn, mod MR 1. Atypical chest pain, suspect musculoskeletal etiology 2. Chronic diastolic dysfunction 3. Coronary artery disease, history of ME, PCI/stent, history of ME 4. Hypertension 5. Hypercholesterolemia 6. Diabetes mellitus 7. Acute on CKD PLAN: 1. Ruled out for ME, f/u repeat echo results 2. Continue Hydralazine 100 tid, Imdur 30 qd and Procardia XL 60 qd, Diovan once renal fxn stable 3. Continue Lasix 40 qd, increase Carvedilol 12.5 bid, Lipitor 40 qhs, ASA 81 qd 4. D/c planning pending above study results
[2017-05-11] MEDS: FUROSEMIDE 40 MG TABLET (FP) PO SCH (11:44)
[2017-05-11] MEDS: CARVEDILOL 12.5 MG TABLET (FP) PO SCH ×2 (11:44→21:33)
[2017-05-11] MEDS: ISOSORBIDE MONONITRATE 30 MG TAB.SR.24H (FP) PO SCH (11:44)
[2017-05-11] MEDS: ASPIRIN 81 MG CHEWABLE TABLETS PO SCH (11:45)
[2017-05-11] MEDS: NIFEdipine E.R 60 MG TABLET (UD) PO SCH (11:45)
[2017-05-11] MEDS ORDERED: INSULIN (NOVOLOG) ASPART 100 UNITS/ML 10ML VIAL ONE ×2 (11:50→22:09)
--- NOTE | 2017-05-11 14:35 | PN ---
Teaching Attending Note Name of Resident: Siva Peterson ATTENDING PHYSICIAN STATEMENT I saw and evaluated the patient. I reviewed the resident's note and discussed the case with the resident. I agree with the resident's findings and plan as documented. SUBJECTIVE: Pain has resolved. He has no complaints. OBJECTIVE: Vital Signs Period Temp Pulse Resp BP Sys/Caal Pulse Ox Last 24 Hr 97.5 F-98.6 F 82-89 18-23 127-159/84-99 98-98 Laboratory Results - last 24 hr 05/10/17 05/10/17 05/10/17 17:18 19:00 22:34 WBC RBC Hgb Hct MCV MCH MCHC RDW Plt Count MPV Neutrophils % Lymphocytes % Monocytes % Eosinophils % Basophils % Sodium Potassium Chloride Carbon Dioxide Anion Gap BUN Creatinine Creat Clearance w eGFR POC Glucometer 168 159 Random Glucose Hemoglobin A1c % Calcium Phosphorus Magnesium Total Bilirubin AST ALT Alkaline Phosphatase Troponin I 0.02 Total Protein Albumin Triglycerides Cholesterol Total LDL Cholesterol HDL Cholesterol 05/11/17 05/11/17 05/11/17 06:27 07:30 07:30 WBC 8.1 D RBC 3.62 L Hgb 11.1 L Hct 33.5 L MCV 92.7 MCH 30.6 MCHC 33.0 RDW 14.6 Plt Count 327 MPV 7.5 Neutrophils % 69.5 D Lymphocytes % 19.3 D Monocytes % 8.7 D Eosinophils % 2.1 D Basophils % 0.4 Sodium 138 Potassium 4.0 Chloride 105 Carbon Dioxide 25 Anion Gap 8 BUN 28 H Creatinine 2.4 H Creat Clearance w eGFR 28.14 POC Glucometer 191 Random Glucose 184 H Hemoglobin A1c % Calcium 8.1 L Phosphorus 4.3 Magnesium 2.3 Total Bilirubin 0.3 D AST 12 L D ALT 15 D Alkaline Phosphatase 106 D Troponin I Total Protein 6.6 Albumin 3.2 L Triglycerides 69 D Cholesterol 135 D Total LDL Cholesterol 70 D HDL Cholesterol 38 L 05/11/17 05/11/17 07:30 11:48 WBC RBC Hgb Hct MCV MCH MCHC RDW Plt Count MPV Neutrophils % Lymphocytes % Monocytes % Eosinophils % Basophils % Sodium Potassium Chloride Carbon Dioxide Anion Gap BUN Creatinine Creat Clearance w eGFR POC Glucometer 173 Random Glucose Hemoglobin A1c % 7.2 H D Calcium Phosphorus Magnesium Total Bilirubin AST ALT Alkaline Phosphatase Troponin I Total Protein Albumin Triglycerides Cholesterol Total LDL Cholesterol HDL Cholesterol Current Medications Generic Name Dose Route Start Last Admin Trade Name Freq PRN Reason Stop Dose Admin Acetaminophen 650 mg 05/10/17 12:15 Tylenol - PO Q4H PRN PAIN LEVEL 1-5 Aspirin 81 mg 05/11/17 10:00 05/11/17 11:45 Asa - PO 81 mg DAILY [facility] Administration Atorvastatin Calcium 40 mg 05/10/17 22:00 05/10/17 22:36 Lipitor - PO 40 mg HS [facility] Administration Carvedilol 12.5 mg 05/11/17 22:00 Coreg - PO BID [facility] Ergocalciferol 50,000 unit 05/17/17 10:00 Drisdol - PO Q7D@1000 [facility] Furosemide 40 mg 05/10/17 12:23 05/11/17 11:44 Lasix - PO 40 mg DAILY [facility] Administration Heparin Sodium (Porcine) 5,000 unit 05/10/17 14:00 05/10/17 22:36 Heparin - SQ 5,000 unit TID [facility] Administration Hydralazine HCl 100 mg 05/10/17 14:00 05/10/17 22:36 Apresoline - PO 100 mg TID [facility] Administration Insulin Aspart 1 vial 05/10/17 16:30 05/11/17 11:51 Novolog Vial Sliding Scale - SQ 2 units ACHS [facility] Administration Protocol Isosorbide Mononitrate 30 mg 05/10/17 13:30 05/11/17 11:44 Imdur - PO 30 mg DAILY [facility] Administration Nifedipine 60 mg 05/10/17 12:30 05/11/17 11:45 Procardia Xl - PO 60 mg DAILY [facility] Administration ASSESSMENT AND PLAN: This is a 56 year old man with a history of asthma, CAD, [place], stent, HTN, type 2 DM, dilated cardiomopathy, chronic systolic and diastolic heart failure, substance abuse who presented to the ED with right flank pain. 1. Right flank pain radiating to chest, likely musculoskeletal - Resolved - Troponins negative - Abd US normal 2. Acute kidney injury - Normal kidneys on abd US - Bladder US shows 118 cc post-void residual and mildly enlarged prostate - Creatinine 2.4 (baseline 1.6 03/01/17) - Nephrology consult 3. Hyponatremia - Improved with fluid restriction 4. Type 2 DM - Continue Novolog sliding scale 5. CAD, history of [place], stent - Continue aspirin, Coreg, Imdur, Procardia XL, Lipitor 6. HTN - Diovan, Aldactone held secondary to GOGO - Continue Coreg, Lasix, Hydralazine, Procardia XL 7. Hyperlipidemia - Continue Lipitor 8. Asthma - Stable 9. Dilated cardiomyopathy with chronic systolic and diastolic heart failure - Stable - Continue Coreg, Procardia XL, Lasix - Aldactone, Diovan held secondary to GOGO
--- NOTE | 2017-05-11 15:37 | PN ---
Physical Exam: SUBJECTIVE: Patient seen and examined Patient states flank pain has resolved. Currently asymptomatic. OBJECTIVE: Vital Signs Period Temp Pulse Resp BP Sys/Caal Pulse Ox Last 24 Hr 97.5 F-98.6 F 82-89 18-23 127-159/84-99 98-98 GENERAL: Awake, alert, and fully oriented, in no acute distress. HEAD: Normal with no signs of trauma. EYES: Pupils equal, round and reactive to light, extraocular movements intact, sclera anicteric, conjunctiva clear. No lid lag. EARS, NOSE, THROAT: Moist mucous membranes. NECK: supple, no jvd LUNGS: Breath sounds equal, clear to auscultation bilaterally. HEART: Regular rate and rhythm, normal S1 and S2, +mack @ left upper sternal border ABDOMEN: Soft, nontender, nondistended no guarding, no rebound, no masses. MUSCULOSKELETAL: No CVA tenderness. UPPER EXTREMITIES: 2+ pulses, warm, well-perfused. No cyanosis. No clubbing. No peripheral edema. LOWER EXTREMITIES: 2+ pulses, warm, well-perfused. No calf tenderness. trace peripheral edema. NEUROLOGICAL: Cranial nerves II-XII grossly intact. Normal speech. PSYCHIATRIC: Cooperative. Good eye contact. Appropriate mood and affect. SKIN: Warm, dry Laboratory Results - last 24 hr 05/10/17 05/10/17 05/10/17 17:18 19:00 22:34 WBC RBC Hgb Hct MCV MCH MCHC RDW Plt Count MPV Neutrophils % Lymphocytes % Monocytes % Eosinophils % Basophils % Sodium Potassium Chloride Carbon Dioxide Anion Gap BUN Creatinine Creat Clearance w eGFR POC Glucometer 168 159 Random Glucose Hemoglobin A1c % Calcium Phosphorus Magnesium Total Bilirubin AST ALT Alkaline Phosphatase Troponin I 0.02 Total Protein Albumin Triglycerides Cholesterol Total LDL Cholesterol HDL Cholesterol 05/11/17 05/11/17 05/11/17 06:27 07:30 07:30 WBC 8.1 D RBC 3.62 L Hgb 11.1 L Hct 33.5 L MCV 92.7 MCH 30.6 MCHC 33.0 RDW 14.6 Plt Count 327 MPV 7.5 Neutrophils % 69.5 D Lymphocytes % 19.3 D Monocytes % 8.7 D Eosinophils % 2.1 D Basophils % 0.4 Sodium 138 Potassium 4.0 Chloride 105 Carbon Dioxide 25 Anion Gap 8 BUN 28 H Creatinine 2.4 H Creat Clearance w eGFR 28.14 POC Glucometer 191 Random Glucose 184 H Hemoglobin A1c % Calcium 8.1 L Phosphorus 4.3 Magnesium 2.3 Total Bilirubin 0.3 D AST 12 L D ALT 15 D Alkaline Phosphatase 106 D Troponin I Total Protein 6.6 Albumin 3.2 L Triglycerides 69 D Cholesterol 135 D Total LDL Cholesterol 70 D HDL Cholesterol 38 L 05/11/17 05/11/17 07:30 11:48 WBC RBC Hgb Hct MCV MCH MCHC RDW Plt Count MPV Neutrophils % Lymphocytes % Monocytes % Eosinophils % Basophils % Sodium Potassium Chloride Carbon Dioxide Anion Gap BUN Creatinine Creat Clearance w eGFR POC Glucometer 173 Random Glucose Hemoglobin A1c % 7.2 H D Calcium Phosphorus Magnesium Total Bilirubin AST ALT Alkaline Phosphatase Troponin I Total Protein Albumin Triglycerides Cholesterol Total LDL Cholesterol HDL Cholesterol Active Medications Generic Name Dose Route Start Last Admin Trade Name Freq PRN Reason Stop Dose Admin Acetaminophen 650 mg 05/10/17 12:15 Tylenol - PO Q4H PRN PAIN LEVEL 1-5 Aspirin 81 mg 05/11/17 10:00 05/11/17 11:45 Asa - PO 81 mg DAILY [facility] Administration Atorvastatin Calcium 40 mg 05/10/17 22:00 05/10/17 22:36 Lipitor - PO 40 mg HS [facility] Administration Carvedilol 12.5 mg 05/11/17 22:00 Coreg - PO BID [facility] Ergocalciferol 50,000 unit 05/17/17 10:00 Drisdol - PO Q7D@1000 [facility] Furosemide 40 mg 05/10/17 12:23 05/11/17 11:44 Lasix - PO 40 mg DAILY [facility] Administration Heparin Sodium (Porcine) 5,000 unit 05/10/17 14:00 05/10/17 22:36 Heparin - SQ 5,000 unit TID [facility] Administration Hydralazine HCl 100 mg 05/10/17 14:00 05/10/17 22:36 Apresoline - PO 100 mg TID [facility] Administration Insulin Aspart 1 vial 05/10/17 16:30 05/11/17 11:51 Novolog Vial Sliding Scale - SQ 2 units ACHS [facility] Administration Protocol Isosorbide Mononitrate 30 mg 05/10/17 13:30 05/11/17 11:44 Imdur - PO 30 mg DAILY [facility] Administration Nifedipine 60 mg 05/10/17 12:30 05/11/17 11:45 Procardia Xl - PO 60 mg DAILY [facility] Administration ASSESSMENT/PLAN: Patient is a 56 year old male with underlying history of bronchial asthma, coronary artery disease s/p PCI/stent, [place], history of ACS, hypertension, NIDDM, non-ischemic dilated cardiomopathy with congestive heart failure, systolic/diastolic left ventricular dysfinction and substance abuse ( cocaine) who presents to ED due to severe R flank pain that radiates to L lower sternal boarder. R Flank Pain, resolved likely MSK -u/s unremarkable -T bili, LFTs wnl -tylenol PRN for pain Atypical chest pain, resolved -musculoskeletal vs gi/gu -[facility] cardiac -Cardiology consult, Dr. Ro -Echo results reviewed -tele monitoring -avoid beta blockers given cocaine history GOGO -Cr 2.4 -Patient has been taking meloxicam for back pain -Renal consult, Dr. Gilmore -Avoid nephrotoxic medications -Monitor urine output/cr -Hold diovan and meloxicam Hyponatremia, resolved -monitor sodium NIDDM -hold po meds; -ISS, BGM CAD -Continue Carvedilol 12.5 mg BID -continue asa HTN -Hold Diovan -Continue lasix, aldctone, imdur, Hydralazine, Procardia XL HLD -continue statin FEN no IVF hyponatremia will correct with fluid restriction diabetic low na diet hep sq Adm tele Visit type - Emergency Visit Emergency Visit: Yes ED Registration Date: 05/10/17 Care time: The patient presented to the Emergency Department on the above date and was hospitalized for further evaluation of their emergent condition. - New Patient This patient is new to me today: Yes Date on this admission: 05/11/17 - Critical Care Critical Care patient: No
[2017-05-11] MEDS: hydrALAZINE HCL 25 MG TABLET (FP) PO SCH ×3 (16:40→21:36)
[2017-05-11] MEDS: HEPARIN NA (PORCINE) 5,000 UNITS/ML 1ML VIAL SQ SCH ×3 (16:40→21:37)
--- NOTE | 2017-05-11 19:45 | CONSULT ---
Consult - text type - Consultation Consultation Note: Renal Consult for GOGO Home Medications Medication Instructions Recorded Aspirin 81 mg PO DAILY 05/10/17 Atorvastatin Ca [Lipitor] 40 mg PO HS 05/10/17 Ergocalciferol [Vitamin D2] 50,000 unit PO FR 05/10/17 Furosemide [Lasix -] 40 mg PO DAILY 05/10/17 Glipizide 5 mg PO BID 05/10/17 Hydralazine HCl 100 mg PO BID 05/10/17 Isosorbide Mononitrate [Imdur -] 30 mg PO DAILY 05/10/17 Meloxicam [Mobic (Nf) -] 15 mg PO DAILY 05/10/17 Nifedipine [Procardia Xl] 60 mg PO DAILY 05/10/17 Spironolactone [Aldactone] 50 mg PO DAILY 05/10/17 Valsartan 320 mg PO DAILY 05/10/17 Vital Signs Temperature 97.7 F 05/11/17 17:00 Pulse Rate 77 05/11/17 17:00 Respiratory Rate 18 05/11/17 17:00 Blood Pressure 150/90 05/11/17 17:00 O2 Sat by Pulse Oximetry (%) 97 05/11/17 09:00 Intake & Output 05/08/17 05/09/17 05/10/17 05/11/17 23:59 23:59 23:59 23:59 Intake Total 330 440 Balance 330 440 Weight 107.048 kg 108.068 kg CBC, BMP 05/11/17 07:30 05/11/17 07:30 Current Medications Acetaminophen (Tylenol -) 650 mg PO Q4H PRN PRN Reason: PAIN LEVEL 1-5 Aspirin (Asa -) 81 mg PO DAILY [facility] Last Admin: 05/11/17 11:45 Dose: 81 mg Atorvastatin Calcium (Lipitor -) 40 mg PO HS [facility] Last Admin: 05/10/17 22:36 Dose: 40 mg Carvedilol (Coreg -) 12.5 mg PO BID [facility] Ergocalciferol (Drisdol -) 50,000 unit PO Q7D@1000 [facility] Furosemide (Lasix -) 40 mg PO DAILY [facility] Last Admin: 05/11/17 11:44 Dose: 40 mg Heparin Sodium (Porcine) (Heparin -) 5,000 unit SQ TID [facility] Last Admin: 05/11/17 16:40 Dose: 5,000 unit Hydralazine HCl (Apresoline -) 100 mg PO TID [facility] Last Admin: 05/11/17 16:40 Dose: 100 mg Insulin Aspart (Novolog Vial Sliding Scale -) 1 vial SQ ACHS [facility] PRN Reason: Protocol Last Admin: 05/11/17 16:43 Dose: 4 units Isosorbide Mononitrate (Imdur -) 30 mg PO DAILY [facility] Last Admin: 05/11/17 11:44 Dose: 30 mg Nifedipine (Procardia Xl -) 60 mg PO DAILY [facility] Last Admin: 05/11/17 11:45 Dose: 60 mg 57 year old gentleman with PMhx Cardiomyopathy, Hypertension, DM, CAD who presented with CP/Back pain and found to have Cr of 2.4 #Acute Renal Insuffiency Differential includes pre-renal injury vs. ATN in setting of ARB and NSAID Check Urine for FeNa Us showed no obstruction UA was bland hold ARB and nsaids for now will not give IVF given hx of cardiomyopathy can continue lasix, no evidence of hypovolemia at the present time Trend BUN/Cr avoid Nephrotoxins and IV contrast Full consult to follow David Gilmore
[2017-05-11] MEDS: ATORVASTATIN CA 40 MG TABLET (FP) PO SCH (21:33)
[2017-05-12] MEDS ORDERED: INSULIN (NOVOLOG) ASPART 100 UNITS/ML 10ML VIAL ONE (06:03)
[2017-05-12] MEDS: HEPARIN NA (PORCINE) 5,000 UNITS/ML 1ML VIAL SQ SCH ×3 (06:08→22:40)
[2017-05-12] MEDS: hydrALAZINE HCL 25 MG TABLET (FP) PO SCH ×3 (06:08→22:40)
[2017-05-12] MEDS: INSULIN SLIDING SCALE (NOVOLOG) 1 VIAL SQ SCH ×4 (06:08→22:40)
[2017-05-12 09:00] LABS: BASO % 0.6 % (0-2.0); EOS % 2.6 % (0-4.5); HEMATOCRIT 35.1 % (35.4-49); HEMOGLOBIN 11.5 GM/dL (11.7-16.9); LYMPH % 21.3 % (8-40); MCH 30.4 pg (25.7-33.7); MCHC 32.8 g/dl (32.0-35.9); MEAN CELL VOLUME 92.8 fl (80-96); MEAN PLT VOLUME 7.4 fl (7.5-11.1); MONO % 9.2 % (3.8-10.2); NEUT % 66.3 % (42.8-82.8); PLATELET COUNT 327 K/MM3 (134-434); RBC 3.78 M/mm3 (4.00-5.60); RDW 14.2 % (11.9-15.9); WHITE BLOOD COUNT 7.1 K/mm3 (4.0-10.0)
[2017-05-12 09:40] LABS: ANION GAP 8 (8-16); BLOOD UREA NITROGEN 27 mg/dL (7-18); CALCIUM 8.5 mg/dL (8.5-10.1); CHLORIDE 106 mmol/L (98-107); CO2 25 mmol/L (21-32); GLUCOSE,RANDOM 118 mg/dL (74-106); MAGNESIUM 2.4 mg/dL (1.8-2.4); POTASSIUM 4.2 mmol/L (3.5-5.1); SODIUM 139 mmol/L (136-145)
[2017-05-12 09:41] LABS: CREATININE 2.5 mg/dL (0.7-1.3); PHOSPHOROUS 3.9 mg/dL (2.5-4.9)
[2017-05-12] MEDS ORDERED: PT OWN MED DRAWER 7, Y5N ONE (10:11)
[2017-05-12] MEDS: ISOSORBIDE MONONITRATE 30 MG TAB.SR.24H (FP) PO SCH (10:18)
[2017-05-12] MEDS: NIFEdipine E.R 60 MG TABLET (UD) PO SCH (10:18)
[2017-05-12] MEDS: FUROSEMIDE 40 MG TABLET (FP) PO SCH (10:18)
[2017-05-12] MEDS: CARVEDILOL 12.5 MG TABLET (FP) PO SCH ×2 (10:18→22:39)
[2017-05-12] MEDS: ASPIRIN 81 MG CHEWABLE TABLETS PO SCH (10:18)
--- NOTE | 2017-05-12 11:24 | PN ---
Progress Note, Physician Chief Complaint: Events noted Not in distress History of Present Illness: Patient was seen and examined. Awake and alert. Chart was reviewed Denies chest pain, SOB or palpitations - Current Medication List Current Medications: Active Medications Acetaminophen (Tylenol -) 650 mg PO Q4H PRN PRN Reason: PAIN LEVEL 1-5 Aspirin (Asa -) 81 mg PO DAILY [facility] Last Admin: 05/12/17 10:18 Dose: 81 mg Atorvastatin Calcium (Lipitor -) 40 mg PO HS [facility] Last Admin: 05/11/17 21:33 Dose: 40 mg Carvedilol (Coreg -) 12.5 mg PO BID [facility] Last Admin: 05/12/17 10:18 Dose: 12.5 mg Ergocalciferol (Drisdol -) 50,000 unit PO Q7D@1000 [facility] Furosemide (Lasix -) 40 mg PO DAILY [facility] Last Admin: 05/12/17 10:18 Dose: 40 mg Heparin Sodium (Porcine) (Heparin -) 5,000 unit SQ TID [facility] Last Admin: 05/12/17 06:08 Dose: 5,000 unit Hydralazine HCl (Apresoline -) 100 mg PO TID [facility] Last Admin: 05/12/17 06:08 Dose: 100 mg Insulin Aspart (Novolog Vial Sliding Scale -) 1 vial SQ ACHS [facility] PRN Reason: Protocol Last Admin: 05/12/17 06:08 Dose: 2 units Isosorbide Mononitrate (Imdur -) 30 mg PO DAILY [facility] Last Admin: 05/12/17 10:18 Dose: 30 mg Nifedipine (Procardia Xl -) 60 mg PO DAILY [facility] Last Admin: 05/12/17 10:18 Dose: 60 mg - Objective Vital Signs: Vital Signs Temperature 98.9 F 05/12/17 06:00 Pulse Rate 81 05/12/17 06:00 Respiratory Rate 18 05/12/17 06:00 Blood Pressure 159/99 05/12/17 06:00 O2 Sat by Pulse Oximetry (%) 95 05/11/17 21:00 HENT: Yes: Atraumatic Neck: Yes: Supple Cardiovascular: Yes: Regular Rate and Rhythm, S1, S2 Respiratory: Yes: CTA Bilaterally Gastrointestinal: Yes: Normal Bowel Sounds, Soft. No: Tenderness Edema: No Additional Findings/Remarks: - Review of Systems Constitutional: denies: Chills, Fever Cardiovascular: denies: Chest Pain, Palpitations, Shortness of Breath Respiratory: denies: Cough, Hemoptysis, Orthopnea, PND, SOB, SOB on Exertion Gastrointestinal: denies: Abdominal Pain, Rectal Bleeding, (-) Vomiting Genitourinary: denies urologic symptoms Neurological: denies: Dizziness, Headache, Seizure, Syncope Labs: CBC, BMP 05/12/17 08:36 05/12/17 08:36 Problem List - Problems (1) [id number] kidney injury Code(s): N17.9 - ACUTE KIDNEY FAILURE, UNSPECIFIED; N18.9 - CHRONIC KIDNEY DISEASE, UNSPECIFIED Qualifiers: Chronic kidney disease stage: stage 3 (moderate) (2) CAD (coronary artery disease) Code(s): I25.10 - ATHSCL HEART DISEASE OF [place] CORONARY ARTERY W/O ANG PCTRS Qualifiers: Coronary Disease-Associated Artery/Lesion type: [place] artery [place] vs. transplanted heart: [place] heart Associated angina: without angina Qualified Code(s): I25.10 - Atherosclerotic heart disease of [place] coronary artery without angina pectoris (3) Chest pain Code(s): R07.9 - CHEST PAIN, UNSPECIFIED Qualifiers: Chest pain type: pleurodynia Qualified Code(s): R07.81 - Pleurodynia (4) Diastolic dysfunction without heart failure Code(s): I51.9 - HEART DISEASE, UNSPECIFIED (5) History of percutaneous coronary intervention Code(s): Z98.890 - OTHER SPECIFIED POSTPROCEDURAL STATES (6) Shortness of breath Code(s): R06.02 - SHORTNESS OF BREATH (7) Acute on chronic diastolic (congestive) heart failure Code(s): I50.33 - ACUTE ON CHRONIC DIASTOLIC (CONGESTIVE) HEART FAILURE (8) Diabetes Code(s): E11.9 - TYPE 2 DIABETES MELLITUS WITHOUT COMPLICATIONS Qualifiers: Diabetes mellitus type: type 2 Diabetes mellitus intermediate insulin use: without intermediate use Chronic kidney disease stage: stage 2 (mild) (9) HTN (hypertension) Code(s): I10 - ESSENTIAL (PRIMARY) HYPERTENSION Qualifiers: Hypertension type: essential hypertension Qualified Code(s): I10 - Essential (primary) hypertension (10) Hyperlipidemia Code(s): E78.5 - HYPERLIPIDEMIA, UNSPECIFIED Qualifiers: Hyperlipidemia type: pure hypercholesterolemia Qualified Code(s): E78.00 - Pure hypercholesterolemia, unspecified Assessment/Plan 1. Atypical chest pain, suspect musculoskeletal etiology 2. Chronic diastolic dysfunction 3. Coronary artery disease, history of MD, PCI/stent, history of MD 4. Hypertension 5. Hypercholesterolemia 6. Diabetes mellitus 7. Acute on CKD PLAN: 1. Transthoracic echocardiography revealed normal left ventricular systolic function, moderate MR and moderate LVH 2. Continue Hydralazine 100 tid, Imdur 30 qd and Procardia XL 60 qd. Consider Diovan once renal function stabilizes 3. Continue Lasix 40 qd, Carvedilol 12.5 bid, Lipitor 40 qhs and ASA 81 qd 4. D/c planning Further plans are to follow Nicholas Singletary MD
--- NOTE | 2017-05-12 14:19 | PN ---
Physical Exam: SUBJECTIVE: Patient seen and examined No acute events overnight. Flank pain has resolved. OBJECTIVE: Vital Signs Period Temp Pulse Resp BP Sys/Caal Pulse Ox Last 24 Hr 97.4 F-98.9 F 77-90 16-18 128-174/81-100 95-95 GENERAL: Awake, alert, and fully oriented, in no acute distress. HEAD: Normal with no signs of trauma. EYES: Pupils equal, round and reactive to light, extraocular movements intact, sclera anicteric, conjunctiva clear. No lid lag. EARS, NOSE, THROAT: Moist mucous membranes. NECK: supple, no jvd LUNGS: Breath sounds equal, clear to auscultation bilaterally. HEART: Regular rate and rhythm, normal S1 and S2, +mack @ left upper sternal border ABDOMEN: Soft, nontender, nondistended no guarding, no rebound, no masses. MUSCULOSKELETAL: No CVA tenderness. UPPER EXTREMITIES: 2+ pulses, warm, well-perfused. No cyanosis. No clubbing. No peripheral edema. LOWER EXTREMITIES: 2+ pulses, warm, well-perfused. No calf tenderness. trace peripheral edema. NEUROLOGICAL: Cranial nerves II-XII grossly intact. Normal speech. PSYCHIATRIC: Cooperative. Good eye contact. Appropriate mood and affect. SKIN: Warm, dry Laboratory Results - last 24 hr 05/11/17 05/11/17 05/11/17 16:42 21:32 22:50 WBC RBC Hgb Hct MCV MCH MCHC RDW Plt Count MPV Neutrophils % Lymphocytes % Monocytes % Eosinophils % Basophils % Sodium Potassium Chloride Carbon Dioxide Anion Gap BUN Creatinine POC Glucometer 206 124 Random Glucose Calcium Phosphorus Magnesium U Random Total Protein Ur Random Sodium Cancelled Ur Random Potassium Cancelled Ur Random Chloride Cancelled Ur Random Urea Nitrogn Urine Creatinine 05/11/17 05/11/17 05/11/17 22:50 22:50 22:50 WBC RBC Hgb Hct MCV MCH MCHC RDW Plt Count MPV Neutrophils % Lymphocytes % Monocytes % Eosinophils % Basophils % Sodium Potassium Chloride Carbon Dioxide Anion Gap BUN Creatinine POC Glucometer Random Glucose Calcium Phosphorus Magnesium U Random Total Protein Ur Random Sodium Cancelled Ur Random Potassium Ur Random Chloride Ur Random Urea Nitrogn Cancelled Urine Creatinine Cancelled 05/11/17 05/12/17 05/12/17 22:50 06:08 08:36 WBC 7.1 RBC 3.78 L Hgb 11.5 L Hct 35.1 L MCV 92.8 MCH 30.4 MCHC 32.8 RDW 14.2 Plt Count 327 MPV 7.4 L Neutrophils % 66.3 Lymphocytes % 21.3 Monocytes % 9.2 Eosinophils % 2.6 Basophils % 0.6 Sodium Potassium Chloride Carbon Dioxide Anion Gap BUN Creatinine POC Glucometer 179 Random Glucose Calcium Phosphorus Magnesium U Random Total Protein 10 Ur Random Sodium 87 Ur Random Potassium 22.8 Ur Random Chloride 103 Ur Random Urea Nitrogn 382 Urine Creatinine 56.0 05/12/17 05/12/17 08:36 12:15 WBC RBC Hgb Hct MCV MCH MCHC RDW Plt Count MPV Neutrophils % Lymphocytes % Monocytes % Eosinophils % Basophils % Sodium 139 Potassium 4.2 Chloride 106 Carbon Dioxide 25 Anion Gap 8 BUN 27 H Creatinine 2.5 H POC Glucometer 166 Random Glucose 118 H D Calcium 8.5 Phosphorus 3.9 Magnesium 2.4 U Random Total Protein Ur Random Sodium Ur Random Potassium Ur Random Chloride Ur Random Urea Nitrogn Urine Creatinine Active Medications Generic Name Dose Route Start Last Admin Trade Name Freq PRN Reason Stop Dose Admin Acetaminophen 650 mg 05/10/17 12:15 Tylenol - PO Q4H PRN PAIN LEVEL 1-5 Aspirin 81 mg 05/11/17 10:00 05/12/17 10:18 Asa - PO 81 mg DAILY [facility] Administration Atorvastatin Calcium 40 mg 05/10/17 22:00 05/11/17 21:33 Lipitor - PO 40 mg HS [facility] Administration Carvedilol 12.5 mg 05/11/17 22:00 05/12/17 10:18 Coreg - PO 12.5 mg BID [facility] Administration Ergocalciferol 50,000 unit 05/17/17 10:00 Drisdol - PO Q7D@1000 [facility] Furosemide 40 mg 05/10/17 12:23 05/12/17 10:18 Lasix - PO 40 mg DAILY [facility] Administration Heparin Sodium (Porcine) 5,000 unit 05/10/17 14:00 05/12/17 14:06 Heparin - SQ 5,000 unit TID [facility] Administration Hydralazine HCl 100 mg 05/10/17 14:00 05/12/17 14:06 Apresoline - PO 100 mg TID [facility] Administration Insulin Aspart 1 vial 05/10/17 16:30 05/12/17 12:20 Novolog Vial Sliding Scale - SQ 2 units ACHS [facility] Administration Protocol Isosorbide Mononitrate 30 mg 05/10/17 13:30 05/12/17 10:18 Imdur - PO 30 mg DAILY [facility] Administration Nifedipine 90 mg 05/13/17 10:00 Procardia Xl - PO DAILY [facility] ASSESSMENT/PLAN: Patient is a 56 year old male with underlying history of bronchial asthma, coronary artery disease s/p PCI/stent, [place], history of ACS, hypertension, NIDDM, non-ischemic dilated cardiomopathy with congestive heart failure, systolic/diastolic left ventricular dysfunction and substance abuse ( cocaine) who presents to ED due to severe R flank pain that radiates to L lower sternal boarder. R Flank Pain, resolved likely MSK -u/s unremarkable -T bili, LFTs wnl -tylenol PRN for pain Atypical chest pain, resolved -musculoskeletal vs gi/gu -unlikely cardiac -Cardiology consult, Dr. Ro -Echo results reviewed -tele monitoring -avoid beta blockers given cocaine history GOGO -Cr 2.5 -Patient has been taking meloxicam for back pain -Renal consult, Dr. Gilmore -Avoid nephrotoxic medications -Monitor urine output/cr -Hold diovan and meloxicam Hyponatremia, resolved -monitor sodium NIDDM -hold po meds -ISS, BGM CAD -Continue Carvedilol 12.5 mg BID -continue asa HTN -Hold Diovan -Continue lasix, aldctone, imdur, Hydralazine, Procardia XL HLD -continue statin FEN no IVF hyponatremia will correct with fluid restriction diabetic low na diet hep sq transfer to med/surg Dispo: once cr begins resolving, pt can be d/c Visit type - Emergency Visit Emergency Visit: Yes ED Registration Date: 05/10/17 Care time: The patient presented to the Emergency Department on the above date and was hospitalized for further evaluation of their emergent condition. - New Patient This patient is new to me today: No - Critical Care Critical Care patient: No
--- NOTE | 2017-05-12 17:46 | PN ---
Progress Note (short form) - Note Progress Note: Renal Follow up for GOGO Pt seen and examined at the bedside no acute complaints denies any sob, CP, N/V/D Vital Signs Temperature 98.2 F 05/12/17 13:59 Pulse Rate 86 05/12/17 13:59 Respiratory Rate 16 05/12/17 13:59 Blood Pressure 128/81 05/12/17 13:59 O2 Sat by Pulse Oximetry (%) 95 05/12/17 10:00 Intake & Output 05/09/17 05/10/17 05/11/17 05/12/17 23:59 23:59 23:59 23:59 Intake Total 330 840 240 Balance 330 840 240 Weight 107.048 kg 108.068 kg 110.229 kg NAD awake and alert RRR CTA NO LE edema CBC, BMP 05/12/17 08:36 05/12/17 08:36 Current Medications Acetaminophen (Tylenol -) 650 mg PO Q4H PRN PRN Reason: PAIN LEVEL 1-5 Aspirin (Asa -) 81 mg PO DAILY [facility] Last Admin: 05/12/17 10:18 Dose: 81 mg Atorvastatin Calcium (Lipitor -) 40 mg PO HS [facility] Last Admin: 05/11/17 21:33 Dose: 40 mg Carvedilol (Coreg -) 12.5 mg PO BID [facility] Last Admin: 05/12/17 10:18 Dose: 12.5 mg Ergocalciferol (Drisdol -) 50,000 unit PO Q7D@1000 [facility] Furosemide (Lasix -) 40 mg PO DAILY [facility] Last Admin: 05/12/17 10:18 Dose: 40 mg Heparin Sodium (Porcine) (Heparin -) 5,000 unit SQ TID [facility] Last Admin: 05/12/17 14:06 Dose: 5,000 unit Hydralazine HCl (Apresoline -) 100 mg PO TID [facility] Last Admin: 05/12/17 14:06 Dose: 100 mg Insulin Aspart (Novolog Vial Sliding Scale -) 1 vial SQ ACHS [facility] PRN Reason: Protocol Last Admin: 05/12/17 17:08 Dose: 2 units Isosorbide Mononitrate (Imdur -) 30 mg PO DAILY [facility] Last Admin: 05/12/17 10:18 Dose: 30 mg Nifedipine (Procardia Xl -) 90 mg PO DAILY [facility] 57 year old gentleman with PMhx Cardiomyopathy, Hypertension, DM, CAD who presented with CP/Back pain and found to have Cr of 2.4 #Acute Renal Insufficiency Renal function unchanged urine studies consistent with tubular injury no overt proteinuria or hematuria to suggest GN would continue to withhold IRMA/ARB and nsaids Trend Renal function, if stable or improved tomorrow can be discharged with outpatient follow up Oral intake as tolerated David Gilmore DO
--- NOTE | 2017-05-12 18:09 | PN ---
Teaching Attending Note Name of Resident: Siva Peterson ATTENDING PHYSICIAN STATEMENT I saw and evaluated the patient. I reviewed the resident's note and discussed the case with the resident. I agree with the resident's findings and plan as documented. SUBJECTIVE: No complaints. OBJECTIVE: Vital Signs Period Temp Pulse Resp BP Sys/Caal Pulse Ox Last 24 Hr 97.4 F-98.9 F 81-90 16-18 128-174/81-100 95-95 HEART: S1S2, RRR LUNGS: Clear ABDOMEN: Obese, soft, non-tender, non-distended, normal BS EXTREMITIES: No edema Laboratory Results - last 24 hr 05/11/17 05/11/17 05/11/17 21:32 22:50 22:50 WBC RBC Hgb Hct MCV MCH MCHC RDW Plt Count MPV Neutrophils % Lymphocytes % Monocytes % Eosinophils % Basophils % Sodium Potassium Chloride Carbon Dioxide Anion Gap BUN Creatinine POC Glucometer 124 Random Glucose Calcium Phosphorus Magnesium U Random Total Protein Ur Random Sodium Cancelled Ur Random Potassium Cancelled Ur Random Chloride Cancelled Ur Random Urea Nitrogn Cancelled Urine Creatinine 05/11/17 05/11/17 05/11/17 22:50 22:50 22:50 WBC RBC Hgb Hct MCV MCH MCHC RDW Plt Count MPV Neutrophils % Lymphocytes % Monocytes % Eosinophils % Basophils % Sodium Potassium Chloride Carbon Dioxide Anion Gap BUN Creatinine POC Glucometer Random Glucose Calcium Phosphorus Magnesium U Random Total Protein 10 Ur Random Sodium Cancelled 87 Ur Random Potassium 22.8 Ur Random Chloride 103 Ur Random Urea Nitrogn 382 Urine Creatinine Cancelled 56.0 05/12/17 05/12/17 05/12/17 06:08 08:36 08:36 WBC 7.1 RBC 3.78 L Hgb 11.5 L Hct 35.1 L MCV 92.8 MCH 30.4 MCHC 32.8 RDW 14.2 Plt Count 327 MPV 7.4 L Neutrophils % 66.3 Lymphocytes % 21.3 Monocytes % 9.2 Eosinophils % 2.6 Basophils % 0.6 Sodium 139 Potassium 4.2 Chloride 106 Carbon Dioxide 25 Anion Gap 8 BUN 27 H Creatinine 2.5 H POC Glucometer 179 Random Glucose 118 H D Calcium 8.5 Phosphorus 3.9 Magnesium 2.4 U Random Total Protein Ur Random Sodium Ur Random Potassium Ur Random Chloride Ur Random Urea Nitrogn Urine Creatinine 05/12/17 05/12/17 12:15 17:07 WBC RBC Hgb Hct MCV MCH MCHC RDW Plt Count MPV Neutrophils % Lymphocytes % Monocytes % Eosinophils % Basophils % Sodium Potassium Chloride Carbon Dioxide Anion Gap BUN Creatinine POC Glucometer 166 156 Random Glucose Calcium Phosphorus Magnesium U Random Total Protein Ur Random Sodium Ur Random Potassium Ur Random Chloride Ur Random Urea Nitrogn Urine Creatinine Current Medications Generic Name Dose Route Start Last Admin Trade Name Freq PRN Reason Stop Dose Admin Acetaminophen 650 mg 05/10/17 12:15 Tylenol - PO Q4H PRN PAIN LEVEL 1-5 Aspirin 81 mg 05/11/17 10:00 05/12/17 10:18 Asa - PO 81 mg DAILY [facility] Administration Atorvastatin Calcium 40 mg 05/10/17 22:00 05/11/17 21:33 Lipitor - PO 40 mg HS [facility] Administration Carvedilol 12.5 mg 05/11/17 22:00 05/12/17 10:18 Coreg - PO 12.5 mg BID [facility] Administration Ergocalciferol 50,000 unit 05/17/17 10:00 Drisdol - PO Q7D@1000 [facility] Furosemide 40 mg 05/10/17 12:23 05/12/17 10:18 Lasix - PO 40 mg DAILY [facility] Administration Heparin Sodium (Porcine) 5,000 unit 05/10/17 14:00 05/12/17 14:06 Heparin - SQ 5,000 unit TID [facility] Administration Hydralazine HCl 100 mg 05/10/17 14:00 05/12/17 14:06 Apresoline - PO 100 mg TID [facility] Administration Insulin Aspart 1 vial 05/10/17 16:30 05/12/17 17:08 Novolog Vial Sliding Scale - SQ 2 units ACHS [facility] Administration Protocol Isosorbide Mononitrate 30 mg 05/10/17 13:30 05/12/17 10:18 Imdur - PO 30 mg DAILY [facility] Administration Nifedipine 90 mg 05/13/17 10:00 Procardia Xl - PO DAILY [facility] ASSESSMENT AND PLAN: This is a 56 year old man with a history of asthma, CAD, [place], stent, HTN, type 2 DM, dilated cardiomyopathy, chronic systolic and diastolic heart failure, substance abuse who presented to the ED with right flank pain. 1. Right flank pain radiating to chest, likely musculoskeletal - Resolved - Troponins negative - Abd US normal 2. Acute kidney injury - Creatinine 2.3 -> 2.4 -> 2.5 (baseline 1.6) - Normal kidneys on abd US - Nephrology input appreciated - urine studies consistent with tubular injury - Diovan, Aldactone, Mobic held 3. Hyponatremia - Improved with fluid restriction 4. Type 2 DM - Continue Novolog sliding scale 5. CAD, history of [place], stent - Continue aspirin, Coreg, Imdur, Procardia XL, Lipitor 6. HTN - Diovan, Aldactone held secondary to GOGO - Continue Coreg, Lasix, Hydralazine, Procardia XL 7. Hyperlipidemia - Continue Lipitor 8. Asthma - Stable 9. Dilated cardiomyopathy with chronic systolic and diastolic heart failure - Stable - Continue Coreg, Procardia XL, Lasix - Aldactone, Diovan held secondary to GOGO
[2017-05-12] MEDS: ATORVASTATIN CA 40 MG TABLET (FP) PO SCH (22:39)
[2017-05-13] MEDS: HEPARIN NA (PORCINE) 5,000 UNITS/ML 1ML VIAL SQ SCH (06:13)
[2017-05-13] MEDS: hydrALAZINE HCL 25 MG TABLET (FP) PO SCH (06:13)
[2017-05-13] MEDS: INSULIN SLIDING SCALE (NOVOLOG) 1 VIAL SQ SCH ×2 (06:14→12:26)
[2017-05-13 07:49] LABS: BASO % 0.6 % (0-2.0); EOS % 2.5 % (0-4.5); HEMATOCRIT 35.2 % (35.4-49); HEMOGLOBIN 11.5 GM/dL (11.7-16.9); LYMPH % 20.4 % (8-40); MCH 30.4 pg (25.7-33.7); MCHC 32.7 g/dl (32.0-35.9); MEAN PLT VOLUME 7.8 fl (7.5-11.1); MONO % 9.9 % (3.8-10.2); NEUT % 66.6 % (42.8-82.8); PLATELET COUNT 331 K/MM3 (134-434); RBC 3.79 M/mm3 (4.00-5.60); RDW 14.4 % (11.9-15.9); WHITE BLOOD COUNT 7.6 K/mm3 (4.0-10.0)
[2017-05-13 08:11] LABS: ANION GAP 11 (8-16); BLOOD UREA NITROGEN 31 mg/dL (7-18); CALCIUM 8.8 mg/dL (8.5-10.1); CHLORIDE 103 mmol/L (98-107); CO2 24 mmol/L (21-32); GLUCOSE,RANDOM 171 mg/dL (74-106); MAGNESIUM 2.6 mg/dL (1.8-2.4); POTASSIUM 4.3 mmol/L (3.5-5.1); SODIUM 138 mmol/L (136-145)
[2017-05-13 08:12] LABS: CREATININE 2.4 mg/dL (0.7-1.3); PHOSPHOROUS 4.4 mg/dL (2.5-4.9)
--- NOTE | 2017-05-13 09:06 | PN ---
Progress Note, Physician History of Present Illness: No further chest discomfort, dyspnea, palpitations, ruled out for WI. - Current Medication List Current Medications: Active Medications Acetaminophen (Tylenol -) 650 mg PO Q4H PRN PRN Reason: PAIN LEVEL 1-5 Aspirin (Asa -) 81 mg PO DAILY [facility] Last Admin: 05/12/17 10:18 Dose: 81 mg Atorvastatin Calcium (Lipitor -) 40 mg PO HS [facility] Last Admin: 05/12/17 22:39 Dose: 40 mg Carvedilol (Coreg -) 12.5 mg PO BID [facility] Last Admin: 05/12/17 22:39 Dose: 12.5 mg Ergocalciferol (Drisdol -) 50,000 unit PO Q7D@1000 [facility] Furosemide (Lasix -) 40 mg PO DAILY [facility] Last Admin: 05/12/17 10:18 Dose: 40 mg Heparin Sodium (Porcine) (Heparin -) 5,000 unit SQ TID [facility] Last Admin: 05/13/17 06:13 Dose: 5,000 unit Hydralazine HCl (Apresoline -) 100 mg PO TID [facility] Insulin Aspart (Novolog Vial Sliding Scale -) 1 vial SQ ACHS [facility] PRN Reason: Protocol Last Admin: 05/13/17 06:14 Dose: 4 units Isosorbide Mononitrate (Imdur -) 30 mg PO DAILY [facility] Last Admin: 05/12/17 10:18 Dose: 30 mg Nifedipine (Procardia Xl -) 90 mg PO DAILY [facility] - Objective Vital Signs: Vital Signs Temperature 98.6 F 05/13/17 05:43 Pulse Rate 83 05/13/17 05:43 Respiratory Rate 18 05/13/17 05:43 Blood Pressure 153/101 05/13/17 05:43 O2 Sat by Pulse Oximetry (%) 95 05/12/17 21:00 Constitutional: Yes: No Distress, Calm Neck: Yes: Supple Cardiovascular: Yes: Regular Rate and Rhythm, Murmur (2/6 SM) Respiratory: Yes: Regular, CTA Bilaterally Gastrointestinal: Yes: Normal Bowel Sounds, Soft Edema: No Labs: CBC, BMP 05/13/17 06:15 05/13/17 06:15 - ....Imaging EKG: Report Reviewed (Tele: NSR) Problem List - Problems (1) [id number] kidney injury Code(s): N17.9 - ACUTE KIDNEY FAILURE, UNSPECIFIED; N18.9 - CHRONIC KIDNEY DISEASE, UNSPECIFIED Qualifiers: Chronic kidney disease stage: stage 3 (moderate) (2) Back pain Code(s): M54.9 - DORSALGIA, UNSPECIFIED Qualifiers: Back pain location: thoracic back pain Chronicity: acute (3) CAD (coronary artery disease) Code(s): I25.10 - ATHSCL HEART DISEASE OF [place] CORONARY ARTERY W/O ANG PCTRS Qualifiers: Coronary Disease-Associated Artery/Lesion type: [place] artery [place] vs. transplanted heart: [place] heart Associated angina: without angina Qualified Code(s): I25.10 - Atherosclerotic heart disease of [place] coronary artery without angina pectoris (4) Chest pain Code(s): R07.9 - CHEST PAIN, UNSPECIFIED Qualifiers: Chest pain type: pleurodynia Qualified Code(s): R07.81 - Pleurodynia (5) Diastolic dysfunction without heart failure Code(s): I51.9 - HEART DISEASE, UNSPECIFIED (6) History of percutaneous coronary intervention Code(s): Z98.890 - OTHER SPECIFIED POSTPROCEDURAL STATES (7) Hypertensive urgency Code(s): I16.0 - HYPERTENSIVE URGENCY (8) Diabetes Code(s): E11.9 - TYPE 2 DIABETES MELLITUS WITHOUT COMPLICATIONS Qualifiers: Diabetes mellitus type: type 2 Diabetes mellitus shelter insulin use: without shelter use Chronic kidney disease stage: stage 2 (mild) (9) HTN (hypertension) Code(s): I10 - ESSENTIAL (PRIMARY) HYPERTENSION Qualifiers: Hypertension type: essential hypertension Qualified Code(s): I10 - Essential (primary) hypertension (10) History of myocardial infarction Code(s): I25.2 - OLD MYOCARDIAL INFARCTION (11) Hyperlipidemia Code(s): E78.5 - HYPERLIPIDEMIA, UNSPECIFIED Qualifiers: Hyperlipidemia type: pure hypercholesterolemia Qualified Code(s): E78.00 - Pure hypercholesterolemia, unspecified Assessment/Plan 05/11/2017 Echo: Mod cLVH, normal biventricular size and fxn, mod SHAHANA, mod MR 1. Atypical chest pain, suspect musculoskeletal etiology 2. Chronic diastolic dysfunction 3. Coronary artery disease, history of WI, PCI/stent, history of WI 4. Hypertension 5. Hypercholesterolemia 6. Diabetes mellitus 7. Acute on CKD PLAN: 1. Transthoracic echocardiography revealed normal left ventricular systolic function, moderate MR and moderate LVH 2. Continue Hydralazine 100 tid, Imdur 30 qd and Procardia XL 90 qd. Consider resuming Diovan once renal function stabilizes 3. Continue Lasix 40 qd, increase Carvedilol 25 bid, Lipitor 40 qhs and ASA 81 qd 4. D/c planning
[2017-05-13] MEDS ORDERED: CARVEDILOL 25 MG TABLET (FP) PO SCH (09:11)
[2017-05-13] MEDS: FUROSEMIDE 40 MG TABLET (FP) PO SCH (09:45)
[2017-05-13] MEDS: ISOSORBIDE MONONITRATE 30 MG TAB.SR.24H (FP) PO SCH (09:45)
[2017-05-13] MEDS: ASPIRIN 81 MG CHEWABLE TABLETS PO SCH (09:45)
[2017-05-13 09:58] VITALS: BP 168/116; PULSE 78; TEMP 97.9
[2017-05-13] MEDS ORDERED: NIFEdipine E.R. 90 MG TABLET (FP) PO SCH (10:00)
--- NOTE | 2017-05-13 12:44 | PN ---
Progress Note (short form) - Note Progress Note: Renal Follow up for GOGO Pt seen and examined at the bedside no acute complaints denies any sob, CP, N/V/D Vital Signs Temperature 97.9 F 05/13/17 08:15 Pulse Rate 78 05/13/17 08:15 Respiratory Rate 18 05/13/17 08:15 Blood Pressure 168/116 05/13/17 08:15 O2 Sat by Pulse Oximetry (%) 96 05/13/17 08:00 Intake & Output 05/10/17 05/11/17 05/12/17 05/13/17 23:59 23:59 23:59 23:59 Intake Total 515 020 4562 360 Balance 818 391 2202 360 Weight 107.048 kg 108.068 kg 110.229 kg 108.125 kg NAD awake and alert RRR CTA NO LE edema CBC, BMP 05/13/17 06:15 05/13/17 06:15 Current Medications Acetaminophen (Tylenol -) 650 mg PO Q4H PRN PRN Reason: PAIN LEVEL 1-5 Aspirin (Asa -) 81 mg PO DAILY [facility] Last Admin: 05/13/17 09:45 Dose: 81 mg Atorvastatin Calcium (Lipitor -) 40 mg PO HS [facility] Last Admin: 05/12/17 22:39 Dose: 40 mg Carvedilol (Coreg -) 25 mg PO BID [facility] Last Admin: 05/13/17 09:45 Dose: 25 mg Ergocalciferol (Drisdol -) 50,000 unit PO Q7D@1000 [facility] Furosemide (Lasix -) 40 mg PO DAILY [facility] Last Admin: 05/13/17 09:45 Dose: 40 mg Heparin Sodium (Porcine) (Heparin -) 5,000 unit SQ TID [facility] Last Admin: 05/13/17 06:13 Dose: 5,000 unit Hydralazine HCl (Apresoline -) 100 mg PO TID [facility] Insulin Aspart (Novolog Vial Sliding Scale -) 1 vial SQ ACHS [facility] PRN Reason: Protocol Last Admin: 05/13/17 12:26 Dose: 2 units Isosorbide Mononitrate (Imdur -) 30 mg PO DAILY [facility] Last Admin: 05/13/17 09:45 Dose: 30 mg Nifedipine (Procardia Xl -) 90 mg PO DAILY [facility] Last Admin: 05/13/17 09:45 Dose: 90 mg 57 year old gentleman with PMhx Cardiomyopathy, Hypertension, DM, CAD who presented with CP/Back pain and found to have Cr of 2.4 #Acute Renal Insufficiency Renal function stable likely etiology of injury is normotensive ATN (NSAIDs, IRMA/ARB) stable for discharge at this time with outpatient follow up advised to remain off ARB and to avoid any further NSAIDs oral intake as tolerated our office contract information was provided to make follow up Thank you for allowing us to take part in the care of this patient David Bustamante
--- NOTE | 2017-05-13 13:14 | DS ---
Physical Exam: Selected Entries 05/13/17 05/13/17 05/13/17 02:00 05:43 08:00 Temperature Pulse Rate Respiratory Rate Blood Pressure 167/102 153/101 O2 Sat by Pulse 96 Oximetry (%) Oxygen Delivery Room Air Method 05/13/17 08:15 Temperature 97.9 F Pulse Rate 78 Respiratory 18 Rate Blood Pressure 168/116 O2 Sat by Pulse Oximetry (%) Oxygen Delivery Method Laboratory Tests 05/10/17 05/10/17 05/10/17 08:55 08:55 19:00 WBC 11.9 H Hgb Hct Plt Count Sodium Potassium Chloride Carbon Dioxide BUN Creatinine 2.3 H D Hemoglobin A1c % Troponin I < 0.02 0.02 B-Natriuretic Peptide 250.62 H Triglycerides Cholesterol Total LDL Cholesterol HDL Cholesterol 05/11/17 05/11/17 05/12/17 07:30 07:30 08:36 WBC Hgb Hct Plt Count Sodium Potassium Chloride Carbon Dioxide BUN Creatinine 2.4 H 2.5 H Hemoglobin A1c % 7.2 H D Troponin I B-Natriuretic Peptide Triglycerides 69 D Cholesterol 135 D Total LDL Cholesterol 70 D HDL Cholesterol 38 L 05/13/17 05/13/17 06:15 06:15 WBC 7.6 Hgb 11.5 L Hct 35.2 L Plt Count 331 Sodium 138 Potassium 4.3 Chloride 103 Carbon Dioxide 24 BUN 31 H Creatinine 2.4 H Hemoglobin A1c % Troponin I B-Natriuretic Peptide Triglycerides Cholesterol Total LDL Cholesterol HDL Cholesterol IMAGING CXR 05/10- No acute chest pathology CHEST CT 05/10- No evidence of thoracic aortic aneurysm. Enlargement of central lymph nodes, unchanged. ABD U/S- Normal abdominal sonogram BLADDER U/S- Large post void residual. Echocardiogram- Trace AR, RV normal in size/fxn, moderate concentric LVH, LV normal, LV fxn normal, LA is moderately dilated, trace TR, Trace KS, RA is moderately dilated, moderate MR HOSPITAL COURSE: Date of Admission:05/10/17 Date of Discharge: 05/13/17 56 year old male with underlying history of bronchial asthma, coronary artery disease s/p PCI/stent, [place], history of ACS, hypertension, NIDDM, non-ischemic dilated cardiomopathy with congestive heart failure, systolic/ diastolic left ventricular dysfinction and substance abuse (cocaine) who presented with severe R flank pain that radiated to his L lower sternal boarder. Patient also found to have an acute kidney injury with a Cr of 2.4 ( baseline 1.6). Patient admitted for atypical chest pain and GOGO. Troponins were negative x 2, echocardogram results were noted above, and patient's t bili/LFTs were unremarkable. Patient underwent abdominal u/s, which was also unremarkable. For the GOGO, patient has been on meloxicam for pain and diovan for BP. Both of these medications were held. Creatinine romaine x 2 days and then stabilized. We believe the flank pain was muscoloskeletal. The GOGO may be 2/2 to his medication use or a progression of his CKD. Patient was told to stop Meloxicam, Diovan, and Aldactone. We increased his procardia XL to 90 mg daily for BP control. He will f/u with his PCP and nephrology within 1 week. Minutes to complete discharge: 45 Discharge Summary Reason For Visit: BACK PAIN Current Active Problems Ezzpv-ew-xlnosde kidney injury (Acute) CAD (coronary artery disease) (Chronic) Diabetes (Chronic) HTN (hypertension) (Chronic 09/05/13) Hyperlipidemia (Chronic 09/05/13) Condition: Stable - Instructions Diet, Activity, Other Instructions: You were in the hospital for flank pain, which has resolved. We believe this is most likely musculoskeletal. In addition, you had an acute kidney injury. We believe this is due to a few medications (Meloxicam/Diovan), which you were taking. The following changes have been made to your medications: Please do not take Meloxicam, Diovan, or Aldactone Since we have stopped your Diovan, we have increased your Procardia XL to 90 mg daily to better control your blood pressure avoid naproxen, ibuprofen , motrin, and similar medications Continue your other home medications as prescribed. Please follow up with your primary care provider within 1 week. Please follow up with the radiology assistant within 1 week (Dr. Gilmore). If you have chest pain, shortness of breath, or new/worsening symptoms please come back to the hospital immediately. Referrals: Lenny Hernandez MD [Primary Care Provider] - David Gilmore MD [Staff Physician] - 1 Week Disposition: HOME - Home Medications Comprehensive Discharge Medication List: Ambulatory Orders Aspirin 81 mg PO DAILY 05/10/17 Atorvastatin Ca [Lipitor] 40 mg PO HS 05/10/17 Ergocalciferol [Vitamin D2] 50,000 unit PO FR 05/10/17 Furosemide [Lasix -] 40 mg PO DAILY 05/10/17 Glipizide 5 mg PO BID 05/10/17 Hydralazine HCl 100 mg PO TID 05/10/17 Isosorbide Mononitrate [Imdur -] 30 mg PO DAILY 05/10/17 Carvedilol [Coreg -] 12.5 mg PO BID tablet 05/13/17 Nifedipine ER [Procardia XL -] 90 mg PO DAILY #30 tab.er.24 05/13/17 This patient is new to me today: No Emergency Visit: Yes ED Registration Date: 05/10/17 Care time: The patient presented to the Emergency Department on the above date and was hospitalized for further evaluation of their emergent condition. Critical Care patient: No - Discharge Referral Referred to [facility] Yes Physician Referral: Lenny Esquivel MD ([facility])
[2017-05-13] MEDS ORDERED: hydrALAZINE HCL 50 MG TABLET (FP) PO SCH (14:00)
--- NOTE | 2017-05-13 18:55 | PN ---
Teaching Attending Note Name of Resident: Siva Peterson ATTENDING PHYSICIAN STATEMENT I saw and evaluated the patient. I reviewed the resident's note and discussed the case with the resident. I agree with the resident's findings and plan as documented. SUBJECTIVE: no pain , no SOB or any other complaints OBJECTIVE: NAD Cv: RRR Lungs: CTAB ext: no edema ASSESSMENT AND PLAN: 57 y/o man with h/o CKD , DM , CAD , Dilated CMP , chronic S and D CHF , who presented with R flank pain . He was found to have GOGO 1- GOGO : could be progresson of his CKD VS new injury form possible hypovolemia and meds cont to hold ARB , and aldactone at dc.avoid NSIDs f/u with nephrology 2- DM II" cont glipizide at dc 3- HTN: cont increased dose procardia , coreg, lasix, HZN dispo dc home f/u with renal .
[2017-05-17] MEDS ORDERED: ERGOCALCIFEROL (VITAMIN D2) 50,000 UNIT CAPSULE (FP) PO SCH (10:00)
== END 2017-05-13 13:16 | disposition home or self-care (01) | DRG 460 ==
LOC: JER 07:27 → JERBED 11:38 → J4S 16:45
PROVIDERS: ADMIT Internal Medicine; ATTEND Internal Medicine
DX: N17.0 Acute kidney failure with tubular necrosis (principal); I25.10 Atherosclerotic heart disease of native coronary artery without angina pectoris; E78.5 Hyperlipidemia, unspecified; M54.9 Dorsalgia, unspecified; R07.89 Other chest pain; Z98.61 Coronary angioplasty status; E87.1 Hypo-osmolality and hyponatremia; I13.0 Hypertensive heart and chronic kidney disease with heart failure and stage 1 through stage 4 chronic kidney disease, or unspecified chronic kidney disease; E11.22 Type 2 diabetes mellitus with diabetic chronic kidney disease; N18.9 Chronic kidney disease, unspecified; I50.42 Chronic combined systolic (congestive) and diastolic (congestive) heart failure; I42.0 Dilated cardiomyopathy; K21.9 Gastro-esophageal reflux disease without esophagitis; Z72.0 Tobacco use; F14.10 Cocaine abuse, uncomplicated
CPT/HCPCS: 36415; 71045-TC-FY; 71250-TC; 76700-TC; 76856-TC; 80048; 80053; 80061; 80307; 81003; 82436; 82550; 82570; 82962; 83036; 83721; 83735; 83880; 84100; 84133; 84156; 84300; 84484; 84540; 85025; 93005; 93010; 93306-TC; 99284-25; J1644

== ENCOUNTER 2017-10-26 17:02 | Observation (INO) | payer OTHER ==
[2017-10-26 17:09] VITALS: BMI 34.2
--- NOTE | 2017-10-26 17:20 | PDOC ---
Attending Attestation - Medical Decision Making 10/26/17 18:[address] Savage, admitting physician, case was discussed with resident. Call placed to Dr. Ro's answering service, cardiology precision machine operator, awaiting call back. 10/26/17 19:[address] Ro, case was discussed with resident. <Olga Mcbride - Last Filed: 10/26/17 19:17> - Resident Resident Name: Ry Alston - ED Attending Attestation I have performed the following: I have examined & evaluated the patient, The case was reviewed & discussed with the resident, I agree w/resident's findings & plan, Exceptions are as noted - HPI HPI: 10/26/17 17:29 57-year-old male with a history of coronary artery disease, [place],diastolic heart congestive heart failure and cocaine abuse presents with chest pain and left arm pain 10/26/17 17:35 - Physicial Exam PE: 10/26/17 19:35 wnwd 57 male p/w chest pain radiating down his arm head ncat eyes eomi neck no JVD lungs cta b/l, no wheezing abd protuberant,nontender ext no erythema.no pitting edema neuro axox3,motor 5/5 b\l, no gross focal neuro deficits skin no rashes,warm and dry psych appropriate 10/26/17 21:11 - Medical Decision Making 10/26/17 21:14 57 yo male p/w chest pain and numerous cardiac risk factors was admitted to telemetry to r/o [place] <Lauren Raza - Last Filed: 10/26/17 21:15> Attestations - Attestations 10/26/17 18:53 Documentation prepared by Olga Mcbride, acting as medical social consultant for Lauren Raza MD. <Olga Mcbride - Last Filed: 10/26/17 19:17>
[2017-10-26] MEDS ORDERED: ACETAMINOPHEN 325 MG TABLET (FP) PO ONE (17:31)
[2017-10-26] MEDS ORDERED: NITROGLYCERIN SUBLINGUAL 1/150 0.4 MG TAB SL ONE ×3 (17:31→19:17)
[2017-10-26 17:37] LABS: BASO % 0.8 % (0-2.0); EOS % 1.3 % (0-4.5); HEMATOCRIT 38.3 % (35.4-49); HEMOGLOBIN 12.9 GM/dL (11.7-16.9); LYMPH % 19.2 % (8-40); MCH 30.4 pg (25.7-33.7); MCHC 33.7 g/dl (32.0-35.9); MEAN CELL VOLUME 90.3 fl (80-96); MEAN PLT VOLUME 7.2 fl (7.5-11.1); MONO % 6.4 % (3.8-10.2); NEUT % 72.3 % (42.8-82.8); PLATELET COUNT 399 K/MM3 (134-434); RBC 4.25 M/mm3 (4.00-5.60); RDW 14.3 % (11.9-15.9); WHITE BLOOD COUNT 9.6 K/mm3 (4.0-10.0)
[2017-10-26] MEDS ORDERED: NITROGLYCERIN SUBLINGUAL 1/150 0.4 MG TAB ONE (17:41)
[2017-10-26] MEDS ORDERED: ACETAMINOPHEN 325 MG TABLET (FP) ONE (17:41)
[2017-10-26 18:00] LABS: ALBUMIN 3.5 g/dl (3.4-5.0); ANION GAP 10 MMOL/L (8-16); BILIRUBIN,TOTAL 0.4 mg/dL (0.2-1.0); BLOOD UREA NITROGEN 17 mg/dL (7-18); CALCIUM 8.5 mg/dL (8.5-10.1); CHLORIDE 106 mmol/L (98-107); CO2 24 mmol/L (21-32); CREATININE 1.1 mg/dL (0.7-1.3); GLUCOSE,RANDOM 133 mg/dL (74-106); MAGNESIUM 2.3 mg/dL (1.8-2.4); POTASSIUM 3.7 mmol/L (3.5-5.1); SGOT/AST 18 U/L (15-37); SGPT/ALT 25 U/L (12-78); SODIUM 140 mmol/L (136-145); TOT PROT 7.8 g/dl (6.4-8.2)
[2017-10-26 18:03] LABS: ALK PHOS 144 U/L (45-117)
--- NOTE | 2017-10-26 18:09 | PDOC ---
History of Present Illness - General Chief Complaint: Chest Pain Stated Complaint: CHEST PAIN Time Seen by Provider: 10/26/17 17:12 History Source: Patient Exam Limitations: No Limitations - History of Present Illness Initial Comments: 10/26/17 18:02 Patient is a 57M with history of HTN, DM, cocaine abuse, non-ischemic cardiomyopathy here today complaining of chest pain that onset 1 hour prior to arrival while dancing at a barbeque. Chest pain radiates to the left shoulder with tingling down his left arm. Vomited as pain onset. Denies fevers, chills. Review of records shows prior STEMI, but patient states that he was transferred and his cath was normal. Denies history of blood clots, recent travel leg swelling. States that he took his blood pressure medication today, but states that he does not know what medications he takes. Past History - Past Medical History Allergies/Adverse Reactions: Allergies Allergy/AdvReac Type Severity Reaction Status Date / Time IRMA Inhibitors Allergy Verified 10/26/17 17:05 Home Medications: Ambulatory Orders Aspirin 81 mg PO DAILY 05/10/17 Atorvastatin Ca [Lipitor] 40 mg PO HS 05/10/17 Ergocalciferol [Vitamin D2] 50,000 unit PO FR 05/10/17 Furosemide [Lasix -] 40 mg PO DAILY 05/10/17 Glipizide 5 mg PO BID 05/10/17 Hydralazine HCl 100 mg PO TID 05/10/17 Isosorbide Mononitrate [Imdur -] 30 mg PO DAILY 05/10/17 Carvedilol [Coreg -] 12.5 mg PO BID tablet 05/13/17 Nifedipine ER [Procardia XL -] 90 mg PO DAILY #30 tab.er.24 05/13/17 Anemia: No Asthma: Yes Cancer: No Cardiac Disorders: Yes (ACS,KS X 3,NO STENTS) CVA: No COPD: No CHF: No DVT: No Dementia: No Diabetes: Yes GI Disorders: No Disorders: No HTN: Yes Hypercholesterolemia: Yes Kidney Stones: No Liver Disease: No Seizures: No Thyroid Disease: No - Surgical History Abdominal Surgery: No Appendectomy: No Cardiac Surgery: No Cholecystectomy: No Lung Surgery: No Neurologic Surgery: No Orthopedic Surgery: Yes (old orthopedic injury fractured left ankle x2) - Reproductive History Testicular Surgery: No - Immunization History Immunization Up to Date: Yes - Suicide/Smoking/Psychosocial Hx Smoking Status: No Smoking History: Current some day smoker Have you smoked in the past 12 months: Yes Number of Cigarettes Smoked Daily: 3 Information on smoking cessation initiated: Yes 'Breaking Loose' booklet given: 10/26/17 Hx Alcohol Use: Yes (beer) Drug/Substance Use Hx: Yes (cocaine 1x) Substance Use Type: Cocaine Hx Substance Use [facility]: [facility]) Review of Systems - Review of Systems Comments:: 10/26/17 18:09 GENERAL/CONSTITUTIONAL: No fever or chills. No weakness. HEAD, EYES, EARS, NOSE AND THROAT: No change in vision. No sore throat. CARDIOVASCULAR: +chest pain +shortness of breath RESPIRATORY: No cough, wheezing, or hemoptysis. GASTROINTESTINAL: No nausea, vomiting, diarrhea or constipation. GENITOURINARY: No dysuria, frequency, or change in urination. MUSCULOSKELETAL: No joint or muscle swelling or pain. No neck or back pain. SKIN: No rash NEUROLOGIC: No headache, vertigo, loss of consciousness, or change in strength/ sensation. ENDOCRINE: No increased thirst. No abnormal weight change HEMATOLOGIC/LYMPHATIC: No anemia, easy bleeding, or history of blood clots. ALLERGIC/IMMUNOLOGIC: No hives or skin allergy. *Physical Exam - Vital Signs Last Vital Signs Temp Pulse Resp BP Pulse Ox 98.2 F 92 H 17 173/125 98 10/26/17 17:05 10/26/17 18:00 10/26/17 18:00 10/26/17 18:00 10/26/17 18:00 - Physical Exam Comments: 10/26/17 18:09 GENERAL: Awake, alert, and fully oriented, in no acute distress HEAD: No signs of trauma, normocephalic, atraumatic EYES: PERRLA, EOMI, sclera anicteric, conjunctiva clear ENT: Auricles normal inspection, hearing grossly normal, nares patent, oropharynx clear without exudates. Moist mucosa NECK: Normal ROM, supple, no lymphadenopathy, JVD, or masses LUNGS: No distress, speaks full sentences, clear to auscultation bilaterally HEART: Regular rate and rhythm, normal S1 and S2, no murmurs, rubs or gallops, peripheral pulses normal and equal bilaterally. ABDOMEN: Soft, nontender, normoactive bowel sounds. No guarding, no rebound. No masses EXTREMITIES: Normal inspection, Normal range of motion, no edema. No clubbing or cyanosis. NEUROLOGICAL: Cranial nerves II through XII grossly intact. Normal speech, normal gait, no focal sensorimotor deficits SKIN: Warm, Dry, normal turgor, no rashes or lesions noted. Heart Score/ECG Review - History History: Highly suspicious - Electrocardiogram EKG: Non specific repolarization disturbance - Age Age: 45-65 - Risk Factors Risk Factors Heart Score: Yes Hx Hypercholesterolemia, Yes Hx Hypertension, Yes Hx Diabetes, Yes Hx Obesity Based on the list above the patient has:: >/=3 risk factors or Hx atherosclerotic disease - Troponin Troponin: </= normal limit - Score Heart Score - Total: 6 ED Treatment Course - LABORATORY CBC & Chemistry Diagram: 10/26/17 17:30 10/26/17 17:30 - ADDITIONAL ORDERS Additional order review: 10/26/17 17:30 RBC 4.25 MCV 90.3 MCHC 33.7 RDW 14.3 MPV 7.2 L Neutrophils % 72.3 Lymphocytes % 19.2 Monocytes % 6.4 Eosinophils % 1.3 Basophils % 0.8 - RADIOLOGY Radiology Studies Ordered: Category Date Time Status CHEST CTA [CT] Stat CT Scan 10/26/17 17:19 Ordered CHEST X-RAY PORTABLE* [RAD] Stat Radiology 10/26/17 17:19 Taken - Medications Given in the ED: ED Medications Discontinued Medications Generic Name Dose Route Start Last Admin Trade Name Freq PRN Reason Stop Dose Admin Acetaminophen 650 mg 10/26/17 17:31 10/26/17 17:50 Tylenol - PO 10/26/17 17:32 650 mg ONCE ONE Administration Nitroglycerin 0.4 mg 10/26/17 17:31 10/26/17 17:45 Nitrostat - SL 10/26/17 17:32 0.4 mg ONCE ONE Administration Nitroglycerin 0.4 mg 10/26/17 17:58 10/26/17 18:02 Nitrostat - SL 10/26/17 17:59 0.4 mg ONCE ONE Administration Medical Decision Making - Medical Decision Making 10/26/17 18:10 Patient is 57M with history of CKD, HTN, DM, cocaine abuse, non-ischemic cardiomyopathy here today with chest pain. Vital signs notable for BP 192/126, HR 102. Given nitro for chest pain with some improvement. SBP now in 170s, given second nitro. DDx includes, but is not limited to: ACS, arrhythmia, pericarditis Bedside ultrasound demonstrates now pericardial effusion, normal squeeze, hypertrophic myocardium. EKG shows sinus tachycardia with rate of 101. No st elevations/depressions. J point elevation in V3. Normal axis. Flattened t waves in I, aVL, V6. Normal axis. Normal intervals. CXR shows no acute cardiopulmonary process. Normal mediastinum. CMP shows normal kidney function. Trop detectable at 0.02. Pending CT. 10/26/17 18:22 Pain relieved by nitro. Given aspirin. Believe risk of dissection low given history and resolution of pain. 10/26/17 19:20 Dr Ro contacted, discussed patient. Will give labetalol, drug screen ordered. Admitted to [facility]. *DC/Admit/Observation/Transfer Diagnosis at time of Disposition: Chest pain - Discharge Dispostion Condition at time of disposition: Stable Decision to Admit order: Yes - Referrals Referrals: Lenny Hernandez MD [Primary Care Provider] - - Patient Instructions - Post Discharge Activity
[2017-10-26 18:11] LABS: INR 1.03 (0.83-1.09); PROTHROMBIN TIME (PATIENT) 11.6 SEC (9.7-13.0)
[2017-10-26] MEDS ORDERED: SODIUM CHLORIDE 1,000 ML IV STA (18:23)
[2017-10-26] MEDS ORDERED: ASPIRIN 81 MG CHEWABLE TABLETS PO ONE (18:23)
[2017-10-26] MEDS ORDERED: ASPIRIN 81 MG CHEWABLE TABLETS ONE (19:02)
[2017-10-26] MEDS ORDERED: LABETALOL HCL 5 MG/1 ML (100MG/20 ML VIAL) IVPUSH ONE (19:19)
[2017-10-26] MEDS ORDERED: LABETALOL HCL 5 MG/1 ML (200MG/40ML VIAL) IVPB ONE (19:40)
--- NOTE | 2017-10-26 21:03 | HP ---
Admitting History and Physical - Primary Care Physician PCP: Kiko Savage - Admission History of Present Illness: 57M with history of HTN, DM, cocaine abuse, non-ischemic cardiomyopathy here today complaining of chest pain that onset 1 hour prior to arrival while dancing at a barbeque. Chest pain radiates to the left shoulder with tingling down his left arm. Vomited as pain onset. Denies fevers, chills. Review of records shows prior STEMI, but patient states that he was transferred and his cath was normal. Denies history of blood clots, recent travel leg swelling. States that he took his blood pressure medication today, but states that he does not know what medications he takes. - Past Medical History Cardiovascular: Yes: CAD (S/P PCI), HTN, Hyperlipdemia, [place], Other (dilated cardiomyopathy (nonischemic), LV systolic dysfunction, ) Gastrointestinal: Yes: GERD Renal/: Yes: Renal Inusuff Musculoskeletal: Yes: Chronic low back pain - Smoking History Smoking history: Current some day smoker Have you smoked in the past 12 months: Yes Aproximately how many cigarettes per day: 3 - Alcohol/Substance Use Hx Alcohol Use: Yes (beer) Number of Drinks Daily: 3 (beer) History of Substance Use: reports: Cocaine - Social History ADL: Independent Occupation: Employed History of Recent Travel: No Home Medications - Allergies Allergies/Adverse Reactions: Allergies Allergy/AdvReac Type Severity Reaction Status Date / Time IRMA Inhibitors Allergy Verified 10/26/17 17:05 - Home Medications Home Medications: Ambulatory Orders Aspirin 81 mg PO DAILY 05/10/17 Atorvastatin Ca [Lipitor] 40 mg PO HS 05/10/17 Ergocalciferol [Vitamin D2] 50,000 unit PO FR 05/10/17 Furosemide [Lasix -] 40 mg PO DAILY 05/10/17 Glipizide 5 mg PO BID 05/10/17 Hydralazine HCl 100 mg PO TID 05/10/17 Isosorbide Mononitrate [Imdur -] 30 mg PO DAILY 05/10/17 Carvedilol [Coreg -] 12.5 mg PO BID tablet 05/13/17 Nifedipine ER [Procardia XL -] 90 mg PO DAILY #30 tab.er.24 05/13/17 Family Disease History - Family Disease History Family Disease History: Diabetes: Sister, Other: Brother (DRUGS) Review of Systems - Review of Systems Cardiovascular: reports: Chest Pain Physical Examination Vital Signs: Vital Signs Temperature 98.2 F 10/26/17 17:05 Pulse Rate 79 10/26/17 20:17 Respiratory Rate 20 10/26/17 20:17 Blood Pressure 161/112 10/26/17 20:17 O2 Sat by Pulse Oximetry (%) 100 10/26/17 20:17 Constitutional: Yes: No Distress HENT: Yes: Atraumatic Neck: Yes: Supple Cardiovascular: Yes: Regular Rate and Rhythm Respiratory: Yes: CTA Bilaterally Gastrointestinal: Yes: Normal Bowel Sounds Extremities: Yes: WNL Neurological: Yes: Alert, Oriented Labs: CBC, BMP 10/26/17 17:30 10/26/17 17:30 Problem List - Problems (1) Chest pain Assessment/Plan: chset pain free fu cardiac enzymes tele monitoring Code(s): R07.9 - CHEST PAIN, UNSPECIFIED Qualifiers: (2) Diabetes Assessment/Plan: on po meds monitor bgms Code(s): E11.9 - TYPE 2 DIABETES MELLITUS WITHOUT COMPLICATIONS (3) HTN (hypertension) Assessment/Plan: on meds stable Code(s): I10 - ESSENTIAL (PRIMARY) HYPERTENSION Qualifiers: Assessment/Plan Laboratory Tests 10/26/17 10/26/17 10/26/17 17:30 17:30 17:30 WBC 9.6 RBC 4.25 Hgb 12.9 Hct 38.3 MCV 90.3 MCH 30.4 MCHC 33.7 RDW 14.3 Plt Count 399 D MPV 7.2 L Absolute Neuts (auto) 7.0 Neutrophils % 72.3 Lymphocytes % 19.2 Monocytes % 6.4 Eosinophils % 1.3 Basophils % 0.8 Nucleated RBC % 0 PT with INR 11.60 INR 1.03 Sodium 140 Potassium 3.7 Chloride 106 Carbon Dioxide 24 Anion Gap 10 BUN 17 Creatinine 1.1 Creat Clearance w eGFR > 60 Random Glucose 133 H D Calcium 8.5 Magnesium 2.3 Total Bilirubin 0.4 AST 18 D ALT 25 D Alkaline Phosphatase 144 H Creatine Kinase 173 Creatine Kinase Index 0.5 CK-MB (CK-2) < 1.00 Troponin I 0.02 Total Protein 7.8 Albumin 3.5 Blood Type Antibody Screen 10/26/17 17:30 WBC RBC Hgb Hct MCV MCH MCHC RDW Plt Count MPV Absolute Neuts (auto) Neutrophils % Lymphocytes % Monocytes % Eosinophils % Basophils % Nucleated RBC % PT with INR INR Sodium Potassium Chloride Carbon Dioxide Anion Gap BUN Creatinine Creat Clearance w eGFR Random Glucose Calcium Magnesium Total Bilirubin AST ALT Alkaline Phosphatase Creatine Kinase Creatine Kinase Index CK-MB (CK-2) Troponin I Total Protein Albumin Blood Type O POSITIVE Antibody Screen Negative Active Medications Generic Name Dose Route Start Last Admin Trade Name Freq PRN Reason Stop Dose Admin Aspirin 81 mg 10/27/17 10:00 10/27/17 10:11 Asa - PO 81 mg DAILY PUSHPA Administration Atorvastatin Calcium 40 mg 10/26/17 22:00 10/26/17 22:46 Lipitor - PO 40 mg HS PUSHPA Administration Carvedilol 12.5 mg 10/26/17 22:00 10/27/17 10:11 Coreg - PO 12.5 mg BID PUSHPA Administration Furosemide 40 mg 10/27/17 10:00 10/27/17 10:12 Lasix - PO 40 mg DAILY PUSHPA Administration Glipizide 5 mg 10/27/17 07:00 10/27/17 16:23 Glucotrol - PO 5 mg BIDAC PUSHPA Administration Hydralazine HCl 100 mg 10/26/17 22:00 10/27/17 15:58 Apresoline - PO 100 mg TID PUSHPA Administration Isosorbide Mononitrate 30 mg 10/27/17 10:00 10/27/17 10:11 Imdur - PO 30 mg DAILY PUSHPA Administration Nifedipine 90 mg 10/27/17 10:00 10/27/17 10:12 Procardia Xl - PO 90 mg DAILY PUSHPA Administration
[2017-10-26] MEDS ORDERED: HEMOQUE TEST 1 EACH EACH ONE (22:35)
[2017-10-26] MEDS: CARVEDILOL 12.5 MG TABLET (FP) PO SCH (22:45)
[2017-10-26] MEDS: hydrALAZINE HCL 50 MG TABLET (FP) PO SCH (22:45)
[2017-10-26] MEDS: ATORVASTATIN CA 40 MG TABLET (FP) PO SCH (22:46)
[2017-10-27 00:04] LABS: COCAINE, UR POSITIVE ng/ml (CUTOFF=300); METHADONE, UR NEGATIVE ng/ml (CUTOFF=300); OPIATES, URI NEGATIVE ng/ml (CUTOFF=300); PHENCYCLIDINE,URINE NEGATIVE ng/ml (CUTOFF=25); URINE AMPHETAMINES NEGATIVE ng/ml (CUTOFF=500); URINE BARBITURATES NEGATIVE ng/ml (CUTOFF=200); URINE BENZODIAZEPINES NEGATIVE ng/ml (CUTOFF=200)
[2017-10-27] MEDS ORDERED: hydrALAZINE HCL 25 MG TABLET (FP) ONE (05:00)
[2017-10-27] MEDS ORDERED: glipiZIDE 5 MG TABLET (FP) ONE (05:00)
[2017-10-27] MEDS: glipiZIDE 5 MG TABLET (FP) PO SCH ×2 (06:04→16:23)
[2017-10-27] MEDS: hydrALAZINE HCL 50 MG TABLET (FP) PO SCH ×3 (06:04→22:12)
[2017-10-27 08:44] LABS: BASO % 0.9 % (0-2.0); EOS % 1.9 % (0-4.5); HEMATOCRIT 34.8 % (35.4-49); HEMOGLOBIN 11.6 GM/dL (11.7-16.9); LYMPH % 15.3 % (8-40); MCH 30.7 pg (25.7-33.7); MCHC 33.4 g/dl (32.0-35.9); MEAN CELL VOLUME 91.7 fl (80-96); MEAN PLT VOLUME 6.9 fl (7.5-11.1); MONO % 7.4 % (3.8-10.2); NEUT % 74.5 % (42.8-82.8); PLATELET COUNT 337 K/MM3 (134-434); RDW 14.1 % (11.9-15.9); WHITE BLOOD COUNT 7.9 K/mm3 (4.0-10.0)
[2017-10-27 09:10] LABS: ALBUMIN 3.1 g/dl (3.4-5.0); ANION GAP 9 MMOL/L (8-16); BILIRUBIN,TOTAL 0.3 mg/dL (0.2-1.0); BLOOD UREA NITROGEN 18 mg/dL (7-18); CALCIUM 8.5 mg/dL (8.5-10.1); CHLORIDE 105 mmol/L (98-107); CO2 25 mmol/L (21-32); CREATININE 1.3 mg/dL (0.7-1.3); GLUCOSE,RANDOM 265 mg/dL (74-106); POTASSIUM 4.2 mmol/L (3.5-5.1); SGOT/AST 15 U/L (15-37); SGPT/ALT 22 U/L (12-78); SODIUM 139 mmol/L (136-145); TOT PROT 6.8 g/dl (6.4-8.2)
[2017-10-27 09:11] LABS: ALK PHOS 125 U/L (45-117)
[2017-10-27] MEDS: ISOSORBIDE MONONITRATE 30 MG TAB.SR.24H (FP) PO SCH (10:11)
[2017-10-27] MEDS: ASPIRIN 81 MG CHEWABLE TABLETS PO SCH (10:11)
[2017-10-27] MEDS: CARVEDILOL 12.5 MG TABLET (FP) PO SCH ×2 (10:11→22:12)
[2017-10-27] MEDS: NIFEdipine E.R. 90 MG TABLET (FP) PO SCH (10:12)
[2017-10-27] MEDS: FUROSEMIDE 40 MG TABLET (FP) PO SCH (10:12)
--- NOTE | 2017-10-27 11:05 | CON.CARD ---
Consult Consult Specialty:: Cardiology Referred by:: Dr. Savage Reason for Consultation:: Cardiac evaluation - History of Present Illness Chief Complaint: Chest pain History of Present Illness: Patient is a 57 year old male previously seen by our group in the hospital in April of this year, with underlying history of bronchial asthma, CAD s/p PCI/ stent, [place], history of ACS, NIDDM, non-ischemic dilated cardiomyopathy with history of congestive heart failure, systolic/diastolic LV dysfunction and substance abuse (cocaine) who presents again with left sided chest pain radiating to shoulder yesterday during barbecue outing. Currently he remains asymptomatic. He states that he had smoked cigarette and used cocaine 1 week ago. He denies SOB or palpitation. He denies nausea, vomiting, diarrhea or abdominal pain. He denies fever or chills. He denies headache or lightheadedness. His last nuclear MPI was August of 2016. Echocardiography was done in April of this year (please refer to medical records) - History Source History Provided By: Patient, Medical Record Limitations to Obtaining History: No Limitations - Past Medical History Cardio/Vascular: Yes: CAD (S/P PCI), HTN, Hyperlipdemia, [place], Other (dilated cardiomyopathy (nonischemic), LV systolic dysfunction, ) Pulmonary: Yes: Asthma Gastrointestinal: Yes: GERD Renal/: Yes: Renal Inusuff Musculoskeletal: Yes: Chronic low back pain Additional Medical History: Rightt achilles tendon tear. Rightt testicular torsion. Angioedema due to ACEI - Alcohol/Substance Use Hx Alcohol Use: Yes (beer) Number of Drinks Daily: 3 (beer) History of Substance Use: reports: Cocaine - Smoking History Smoking history: Current some day smoker Have you smoked in the past 12 months: Yes Aproximately how many cigarettes per day: 3 - Social History ADL: Independent Occupation: Employed History of Recent Travel: No Home Medications - Allergies Allergies/Adverse Reactions: Allergies Allergy/AdvReac Type Severity Reaction Status Date / Time IRMA Inhibitors Allergy Verified 10/26/17 17:05 - Home Medications Home Medications: Ambulatory Orders Aspirin 81 mg PO DAILY 05/10/17 Atorvastatin Ca [Lipitor] 40 mg PO HS 05/10/17 Ergocalciferol [Vitamin D2] 50,000 unit PO FR 05/10/17 Furosemide [Lasix -] 40 mg PO DAILY 05/10/17 Glipizide 5 mg PO BID 05/10/17 Hydralazine HCl 100 mg PO TID 05/10/17 Isosorbide Mononitrate [Imdur -] 30 mg PO DAILY 05/10/17 Carvedilol [Coreg -] 12.5 mg PO BID tablet 05/13/17 Nifedipine ER [Procardia XL -] 90 mg PO DAILY #30 tab.er.24 05/13/17 Family Disease History - Family Disease History Family Disease History: Diabetes: Sister, Other: Brother (DRUGS) Review of Systems - Review of Systems Constitutional: denies: Chills, Fever Cardiovascular: reports: Chest Pain. denies: Palpitations, Shortness of Breath Respiratory: denies: Cough, Hemoptysis, Orthopnea, PND, SOB, SOB on Exertion Gastrointestinal: denies: Abdominal Pain, Constipation, Diarrhea, Melena, Nausea , Rectal Bleeding, Vomiting Genitourinary: denies: Dysuria, Hematuria Musculoskeletal: denies: Back Pain, Joint Pain Neurological: denies: Dizziness, Headache, Seizure, Syncope Vital Signs: Vital Signs Temperature 97.7 F 10/27/17 09:44 Pulse Rate 89 10/27/17 09:44 Respiratory Rate 18 10/27/17 09:44 Blood Pressure 161/107 10/27/17 09:44 O2 Sat by Pulse Oximetry (%) 100 10/27/17 00:08 HENT: Yes: Atraumatic Neck: Yes: Supple Respiratory: Yes: CTA Bilaterally Gastrointestinal: Yes: Normal Bowel Sounds, Soft. No: Tenderness Cardiovascular: Yes: Regular Rate and Rhythm JVD: No Carotid Bruit: No PMI: Non-Displaced Heart Sounds: Yes: S1, S2 Edema: No - Other Data Labs, Other Data: CBC, BMP 10/27/17 08:35 10/27/17 08:35 INR, PTT INR 1.03 (0.83-1.09) 10/26/17 17:30 Troponin, BNP 10/26/17 10/26/17 10/27/17 17:30 22:53 08:35 Troponin I 0.02 0.02 0.02 Laboratory Results - last 24 hr 10/26/17 10/26/17 10/26/17 11:39 17:30 17:30 WBC 9.6 RBC 4.25 Hgb 12.9 Hct 38.3 MCV 90.3 MCH 30.4 MCHC 33.7 RDW 14.3 Plt Count 399 D MPV 7.2 L Absolute Neuts (auto) 7.0 Neutrophils % 72.3 Lymphocytes % 19.2 Monocytes % 6.4 Eosinophils % 1.3 Basophils % 0.8 Nucleated RBC % 0 PT with INR 11.60 INR 1.03 Sodium Potassium Chloride Carbon Dioxide Anion Gap BUN Creatinine Cancelled Creat Clearance w eGFR POC Glucometer Random Glucose Specific [place] Cancelled Calcium Magnesium Total Bilirubin AST ALT Alkaline Phosphatase Creatine Kinase Creatine Kinase Index CK-MB (CK-2) Troponin I Total Protein Albumin Urine Butalbital Cancelled Ur Butalbital Confirm Cancelled Opiates Screen Urine Opiates Screen Cancelled Meperidine Cancelled Urine Normeperidine Cancelled U Normeperidine GC/MS Cancelled Urine Codeine Cancelled U Codeine Confrm GC/MS Cancelled Urine Morphine Cancelled Morphine Confirm GC/MS Cancelled Urine Hydrocodone Cancelled Ur Hydrocodone (GC/MS) Cancelled Urine Oxycodone Cancelled Ur Oxycodone GC/MS Cancelled Oxymorphone Confirm Cancelled Urine Oxymorphone Cancelled U Oxycodone/Oxymorphon Cancelled Methadone Screen Ur Methadone Cancelled Ur Methadone Confirm Cancelled Ur Hydromorphone Cancelled Ur Hydromorphone (GC/MS) Cancelled Urine Propoxyphene Cancelled U Propoxyphene/M GC/MS Cancelled Barbiturate Screen Ur Barbiturates Screen Cancelled Urine Barbiturates Cancelled Phencyclidine Screen Ur Phencyclidine (PCP) Cancelled Ur PCP Confirm (GC/MS) Cancelled Amphetamines Cancelled Amphetamines Grp GC/MS Cancelled Ur Amphetamines Screen Urine Amphetamine Cancelled Ur Amphetamines, Quant Cancelled Methamphetamine Cancelled Methamphetamine GC/MS Cancelled MDMA (Ecstasy) Screen Urine Amobarbital Cancelled Ur Amobarbital GC/MS Cancelled Urine Pentobarbital Cancelled U Pentobarbital GC/MS Cancelled Urine Phenobarbital Cancelled U Phenobarbital GC/MS Cancelled Urine Secobarbital Cancelled U Secobarbital GC/MS Cancelled Urine Alprazolam Cancelled U [place]-Alprazolam GC/MS Cancelled Benzodiazepines Screen U Benzodiazepines Scrn Cancelled Urine Clonazepam Cancelled U 7-Amino Clonazep GC/MS Cancelled Ur Nordiazepam Cancelled Ur Nordiazepam GC/MS Cancelled Flurazepam Cancelled Flurazepam Confirm Cancelled Lorazepam Cancelled Urine Lorazepam Cancelled Ur Oxazepam Cancelled U Oxazepam Confm GC/MS Cancelled Urine Temazepam Cancelled Ur Temazepam (GC/MS) Cancelled Urine Triazolam Cancelled Ur Triazolam (GC/MS) Cancelled Meperidine (GC/MS) Cancelled Ur Meperidine Cancelled Cocaine Screen Cocaine & Metabolite Cancelled Urine Cocaine Cancelled Benzoylecgonine Cancelled Cannabinoids Cancelled Urine Cannabinoids Cancelled U Marijuana (THC) Screen Urine Marijuana (THC) Cancelled Urine Ethyl Alcohol Cancelled Blood Type Antibody Screen 10/26/17 10/26/17 10/26/17 17:30 17:30 22:39 WBC RBC Hgb Hct MCV MCH MCHC RDW Plt Count MPV Absolute Neuts (auto) Neutrophils % Lymphocytes % Monocytes % Eosinophils % Basophils % Nucleated RBC % PT with INR INR Sodium 140 Potassium 3.7 Chloride 106 Carbon Dioxide 24 Anion Gap 10 BUN 17 Creatinine 1.1 Creat Clearance w eGFR > 60 POC Glucometer [id number] Random Glucose 133 H D Specific [place] Calcium 8.5 Magnesium 2.3 Total Bilirubin 0.4 AST 18 D ALT 25 D Alkaline Phosphatase 144 H Creatine Kinase 173 Creatine Kinase Index 0.5 CK-MB (CK-2) < 1.00 Troponin I 0.02 Total Protein 7.8 Albumin 3.5 Urine Butalbital Ur Butalbital Confirm Opiates Screen Urine Opiates Screen Meperidine Urine Normeperidine U Normeperidine GC/MS Urine Codeine U Codeine Confrm GC/MS Urine Morphine Morphine Confirm GC/MS Urine Hydrocodone Ur Hydrocodone (GC/MS) Urine Oxycodone Ur Oxycodone GC/MS Oxymorphone Confirm Urine Oxymorphone U Oxycodone/Oxymorphon Methadone Screen Ur Methadone Ur Methadone Confirm Ur Hydromorphone Ur Hydromorphone (GC/MS) Urine Propoxyphene U Propoxyphene/M GC/MS Barbiturate Screen Ur Barbiturates Screen Urine Barbiturates Phencyclidine Screen Ur Phencyclidine (PCP) Ur PCP Confirm (GC/MS) Amphetamines Amphetamines Grp GC/MS Ur Amphetamines Screen Urine Amphetamine Ur Amphetamines, Quant Methamphetamine Methamphetamine GC/MS MDMA (Ecstasy) Screen Urine Amobarbital Ur Amobarbital GC/MS Urine Pentobarbital U Pentobarbital GC/MS Urine Phenobarbital U Phenobarbital GC/MS Urine Secobarbital U Secobarbital GC/MS Urine Alprazolam U [place]-Alprazolam GC/MS Benzodiazepines Screen U Benzodiazepines Scrn Urine Clonazepam U 7-Amino Clonazep GC/MS Ur Nordiazepam Ur Nordiazepam GC/MS Flurazepam Flurazepam Confirm Lorazepam Urine Lorazepam Ur Oxazepam U Oxazepam Confm GC/MS Urine Temazepam Ur Temazepam (GC/MS) Urine Triazolam Ur Triazolam (GC/MS) Meperidine (GC/MS) Ur Meperidine Cocaine Screen Cocaine & Metabolite Urine Cocaine Benzoylecgonine Cannabinoids Urine Cannabinoids U Marijuana (THC) Screen Urine Marijuana (THC) Urine Ethyl Alcohol Blood Type O POSITIVE Antibody Screen Negative 10/26/17 10/26/17 10/27/17 22:53 23:39 08:35 WBC RBC Hgb Hct MCV MCH MCHC RDW Plt Count MPV Absolute Neuts (auto) Neutrophils % Lymphocytes % Monocytes % Eosinophils % Basophils % Nucleated RBC % PT with INR INR Sodium Potassium Chloride Carbon Dioxide Anion Gap BUN Creatinine Creat Clearance w eGFR POC Glucometer Random Glucose Specific [place] Calcium Magnesium Total Bilirubin AST ALT Alkaline Phosphatase Creatine Kinase 176 126 Creatine Kinase Index 0.5 CK-MB (CK-2) < 1.00 Troponin I 0.02 0.02 Total Protein Albumin Urine Butalbital Ur Butalbital Confirm Opiates Screen Negative Urine Opiates Screen Meperidine Urine Normeperidine U Normeperidine GC/MS Urine Codeine U Codeine Confrm GC/MS Urine Morphine Morphine Confirm GC/MS Urine Hydrocodone Ur Hydrocodone (GC/MS) Urine Oxycodone Ur Oxycodone GC/MS Oxymorphone Confirm Urine Oxymorphone U Oxycodone/Oxymorphon Methadone Screen Negative Ur Methadone Ur Methadone Confirm Ur Hydromorphone Ur Hydromorphone (GC/MS) Urine Propoxyphene U Propoxyphene/M GC/MS Barbiturate Screen Negative Ur Barbiturates Screen Urine Barbiturates Phencyclidine Screen Negative Ur Phencyclidine (PCP) Ur PCP Confirm (GC/MS) Amphetamines Amphetamines Grp GC/MS Ur Amphetamines Screen Negative Urine Amphetamine Ur Amphetamines, Quant Methamphetamine Methamphetamine GC/MS MDMA (Ecstasy) Screen Negative Urine Amobarbital Ur Amobarbital GC/MS Urine Pentobarbital U Pentobarbital GC/MS Urine Phenobarbital U Phenobarbital GC/MS Urine Secobarbital U Secobarbital GC/MS Urine Alprazolam U [place]-Alprazolam GC/MS Benzodiazepines Screen Negative U Benzodiazepines Scrn Urine Clonazepam U 7-Amino Clonazep GC/MS Ur Nordiazepam Ur Nordiazepam GC/MS Flurazepam Flurazepam Confirm Lorazepam Urine Lorazepam Ur Oxazepam U Oxazepam Confm GC/MS Urine Temazepam Ur Temazepam (GC/MS) Urine Triazolam Ur Triazolam (GC/MS) Meperidine (GC/MS) Ur Meperidine Cocaine Screen Positive Cocaine & Metabolite Urine Cocaine Benzoylecgonine Cannabinoids Urine Cannabinoids U Marijuana (THC) Screen Negative Urine Marijuana (THC) Urine Ethyl Alcohol Blood Type Antibody Screen 10/27/17 10/27/17 08:35 08:35 WBC 7.9 RBC 3.80 L Hgb 11.6 L Hct 34.8 L MCV 91.7 MCH 30.7 MCHC 33.4 RDW 14.1 Plt Count 337 MPV 6.9 L Absolute Neuts (auto) 5.9 Neutrophils % 74.5 Lymphocytes % 15.3 D Monocytes % 7.4 Eosinophils % 1.9 Basophils % 0.9 Nucleated RBC % 0 PT with INR INR Sodium 139 Potassium 4.2 Chloride 105 Carbon Dioxide 25 Anion Gap 9 BUN 18 Creatinine 1.3 Creat Clearance w eGFR 57.10 POC Glucometer Random Glucose 265 H D Specific [place] Calcium 8.5 Magnesium Total Bilirubin 0.3 AST 15 ALT 22 Alkaline Phosphatase 125 H D Creatine Kinase Creatine Kinase Index CK-MB (CK-2) Troponin I Total Protein 6.8 Albumin 3.1 L Urine Butalbital Ur Butalbital Confirm Opiates Screen Urine Opiates Screen Meperidine Urine Normeperidine U Normeperidine GC/MS Urine Codeine U Codeine Confrm GC/MS Urine Morphine Morphine Confirm GC/MS Urine Hydrocodone Ur Hydrocodone (GC/MS) Urine Oxycodone Ur Oxycodone GC/MS Oxymorphone Confirm Urine Oxymorphone U Oxycodone/Oxymorphon Methadone Screen Ur Methadone Ur Methadone Confirm Ur Hydromorphone Ur Hydromorphone (GC/MS) Urine Propoxyphene U Propoxyphene/M GC/MS Barbiturate Screen Ur Barbiturates Screen Urine Barbiturates Phencyclidine Screen Ur Phencyclidine (PCP) Ur PCP Confirm (GC/MS) Amphetamines Amphetamines Grp GC/MS Ur Amphetamines Screen Urine Amphetamine Ur Amphetamines, Quant Methamphetamine Methamphetamine GC/MS MDMA (Ecstasy) Screen Urine Amobarbital Ur Amobarbital GC/MS Urine Pentobarbital U Pentobarbital GC/MS Urine Phenobarbital U Phenobarbital GC/MS Urine Secobarbital U Secobarbital GC/MS Urine Alprazolam U [place]-Alprazolam GC/MS Benzodiazepines Screen U Benzodiazepines Scrn Urine Clonazepam U 7-Amino Clonazep GC/MS Ur Nordiazepam Ur Nordiazepam GC/MS Flurazepam Flurazepam Confirm Lorazepam Urine Lorazepam Ur Oxazepam U Oxazepam Confm GC/MS Urine Temazepam Ur Temazepam (GC/MS) Urine Triazolam Ur Triazolam (GC/MS) Meperidine (GC/MS) Ur Meperidine Cocaine Screen Cocaine & Metabolite Urine Cocaine Benzoylecgonine Cannabinoids Urine Cannabinoids U Marijuana (THC) Screen Urine Marijuana (THC) Urine Ethyl Alcohol Blood Type Antibody Screen NSR, nonspecific T wave abnormality Echo: Report Reviewed Imaging - Results Chest X-ray: Report Reviewed (No acute pathology) EKG: Report Reviewed Problem List - Problems (1) Chest pain Code(s): R07.9 - CHEST PAIN, UNSPECIFIED Qualifiers: (2) Ayixr-qu-zsnwtsy kidney injury Code(s): N17.9 - ACUTE KIDNEY FAILURE, UNSPECIFIED; N18.9 - CHRONIC KIDNEY DISEASE, UNSPECIFIED Qualifiers: Chronic kidney disease stage: stage 3 (moderate) (3) Cocaine abuse Code(s): F14.10 - COCAINE ABUSE, UNCOMPLICATED (4) History of percutaneous coronary intervention Code(s): Z98.890 - OTHER SPECIFIED POSTPROCEDURAL STATES (5) Hypertensive urgency Code(s): I16.0 - HYPERTENSIVE URGENCY (6) CAD (coronary artery disease) Code(s): I25.10 - ATHSCL HEART DISEASE OF [place] CORONARY ARTERY W/O ANG PCTRS Qualifiers: Coronary Disease-Associated Artery/Lesion type: [place] artery [place] vs. transplanted heart: [place] heart Associated angina: without angina Qualified Code(s): I25.10 - Atherosclerotic heart disease of [place] coronary artery without angina pectoris (7) Diabetes Code(s): E11.9 - TYPE 2 DIABETES MELLITUS WITHOUT COMPLICATIONS (8) Diastolic dysfunction without heart failure Code(s): I51.9 - HEART DISEASE, UNSPECIFIED (9) HTN (hypertension) Code(s): I10 - ESSENTIAL (PRIMARY) HYPERTENSION Qualifiers: (10) History of myocardial infarction Code(s): I25.2 - OLD MYOCARDIAL INFARCTION (11) Hyperlipidemia Code(s): E78.5 - HYPERLIPIDEMIA, UNSPECIFIED Qualifiers: Hyperlipidemia type: pure hypercholesterolemia Qualified Code(s): E78.00 - Pure hypercholesterolemia, unspecified Assessment/Plan 1. Chest pain syndrome with underlying CAD s/p PCI/stent, history of [place]/ACS 2. HTN 3. Hypercholesterolemia 4. DM 5. History of CKD 6. History of angioedema due to ACEI 7. History of systolic/diastolic dysfunction, currently euvolemic 8. Substance abuse (Cocaine) PLAN: 1. Serial cardiac enzymes negative X 3 sets 2. Continue Procardia XL, Hydralazine, Carvedilol and ASA 3. Statin 4. Diuretics 5. Echocardiography may be repeated to assess LV/RV and valvular function 6. Nuclear MPI may be considered (however, had had breakfast this morning including tea, therefore, this can be done tomorrow) Patient may be downgraded to floor care since troponin is negative 3 sets. Further plans are to follow Nicholas Singletary MD
--- NOTE | 2017-10-27 16:29 | EKG ---
Test Reason : Blood Pressure : / mmHG Vent. Rate : 101 BPM Atrial Rate : 101 BPM P-R Int : 164 ms QRS Dur : 102 ms QT Int : 360 ms P-R-T Axes : 062 011 070 degrees QTc Int : 466 ms SINUS TACHYCARDIA POSSIBLE LEFT ATRIAL ENLARGEMENT NONSPECIFIC T WAVE ABNORMALITY ABNORMAL ECG WHEN COMPARED WITH ECG OF 10-MAY-2017 08:23, PREMATURE VENTRICULAR COMPLEXES ARE NO LONGER PRESENT BORDERLINE CRITERIA FOR INFERIOR INFARCT ARE NO LONGER PRESENT Confirmed by Jake Mclean ([id number]) on 10/27/2017 4:29:12 PM Referred By: Confirmed By:Jake Mclean
--- NOTE | 2017-10-27 18:12 | PN ---
Progress Note, Physician - Current Medication List Current Medications: Active Medications Aspirin (Asa -) 81 mg PO DAILY [facility] Last Admin: 10/27/17 10:11 Dose: 81 mg Atorvastatin Calcium (Lipitor -) 40 mg PO HS [facility] Last Admin: 10/26/17 22:46 Dose: 40 mg Carvedilol (Coreg -) 12.5 mg PO BID [facility] Last Admin: 10/27/17 10:11 Dose: 12.5 mg Furosemide (Lasix -) 40 mg PO DAILY [facility] Last Admin: 10/27/17 10:12 Dose: 40 mg Glipizide (Glucotrol -) 5 mg PO BIDAC [facility] Last Admin: 10/27/17 16:23 Dose: 5 mg Hydralazine HCl (Apresoline -) 100 mg PO TID [facility] Last Admin: 10/27/17 15:58 Dose: 100 mg Isosorbide Mononitrate (Imdur -) 30 mg PO DAILY [facility] Last Admin: 10/27/17 10:11 Dose: 30 mg Nifedipine (Procardia Xl -) 90 mg PO DAILY [facility] Last Admin: 10/27/17 10:12 Dose: 90 mg - Objective Vital Signs: Vital Signs Temperature 98.4 F 10/27/17 14:00 Pulse Rate 84 10/27/17 14:00 Respiratory Rate 18 10/27/17 14:41 Blood Pressure 165/116 10/27/17 14:00 O2 Sat by Pulse Oximetry (%) 98 10/27/17 14:41 Constitutional: Yes: No Distress HENT: Yes: Atraumatic Neck: Yes: Supple Cardiovascular: Yes: Regular Rate and Rhythm Respiratory: Yes: CTA Bilaterally Gastrointestinal: Yes: Normal Bowel Sounds Extremities: Yes: WNL Labs: CBC, BMP 10/27/17 08:35 10/27/17 08:35 INR, PTT INR 1.03 (0.83-1.09) 10/26/17 17:30 Problem List - Problems (1) Chest pain Assessment/Plan: troponins negative for stress test in am Code(s): R07.9 - CHEST PAIN, UNSPECIFIED Qualifiers: (2) Diabetes Assessment/Plan: on po meds monitor bgms Code(s): E11.9 - TYPE 2 DIABETES MELLITUS WITHOUT COMPLICATIONS (3) HTN (hypertension) Assessment/Plan: on meds stable Code(s): I10 - ESSENTIAL (PRIMARY) HYPERTENSION Qualifiers:
--- NOTE | 2017-10-27 18:25 | ECHO ---
Name: KEMAL GAN Exam:Adult Echocardiogram Study Date: 10/27/2017 03:48 PM Age: 57 yrs Reason For Study: CHEST PAIN Height: 71 in Weight: 246 lb BSA: 2.3 m2 MMode/2D Measurements & Calculations IVSd: 1.8 cm Ao root diam: 3.1 cm LVIDd: 5.6 cm LA dimension: 3.9 cm LVIDs: 4.1 cm LVPWd: 1.2 cm EDV(Teich): 151.2 ml LAV(MOD-sp2): 59.1 ml ESV(Teich): 74.3 ml LAV(MOD-sp4): 63.9 ml LAV(MOD-bp): 61.5 ml LAV(MOD-bp) Indexed: 26.7 ml/m2 Doppler Measurements & Calculations MV E max darrion: 107.0 cm/sec Ao V2 max: 127.7 cm/sec MV A max darrion: 53.4 cm/sec Ao max P.5 mmHg MV E/A: 2.0 AI P1/2t: 336.8 msec AI max darrion: 277.1 cm/sec LV V1 max P.4 mmHg AI max P.7 mmHg LV V1 max: 60.0 cm/sec AI dec slope: 241.0 cm/sec2 MR max darrion: 458.5 cm/sec TV V2 max: 233.5 cm/sec MR max P.0 mmHg TV max P.8 mmHg Procedure A two-dimensional transthoracic echocardiogram with color flow and Doppler was performed in [facility] only. Left Ventricle There is mild concentric left ventricular hypertrophy. The left ventricular ejection fraction is norm al. Ejection Fraction = 55%. Right Ventricle The right ventricle is normal in size and function. Atria Normal left and right atrial size and function. Mitral Valve The mitral valve is normal. There is mild to moderate mitral regurgitation. Tricuspid Valve The tricuspid valve is normal in structure and function. Aortic Valve There is mild aortic sclerosis.;. The aortic valve is trileaflet. Mild aortic regurgitation. Great Vessels The aortic root is normal size. Pericardium/Pleura There is no pericardial effusion. Interpretation Summary There is mild concentric left ventricular hypertrophy. The left ventricular ejection fraction is normal. The right ventricle is normal in size and function. Jake Mclean 10/27/2017 04:39 PM
[2017-10-27] MEDS: ATORVASTATIN CA 40 MG TABLET (FP) PO SCH (22:12)
[2017-10-27] MEDS ORDERED: hydrALAZINE HCL 20 MG/ML VIAL IVPUSH ONE (23:00)
[2017-10-28] MEDS: hydrALAZINE HCL 50 MG TABLET (FP) PO SCH ×3 (06:40→22:31)
[2017-10-28] MEDS: glipiZIDE 5 MG TABLET (FP) PO SCH ×2 (06:40→17:10)
[2017-10-28] MEDS ORDERED: PT OWN MED DRAWER 7, Y5N ONE ×2 (08:39→13:37)
[2017-10-28] MEDS: FUROSEMIDE 40 MG TABLET (FP) PO SCH ×2 (08:41→10:00)
[2017-10-28] MEDS: ASPIRIN 81 MG CHEWABLE TABLETS PO SCH ×2 (08:41→10:00)
[2017-10-28] MEDS: ISOSORBIDE MONONITRATE 30 MG TAB.SR.24H (FP) PO SCH ×2 (08:41→10:00)
[2017-10-28] MEDS: CARVEDILOL 12.5 MG TABLET (FP) PO SCH ×2 (08:41→10:00)
[2017-10-28] MEDS: NIFEdipine E.R. 90 MG TABLET (FP) PO SCH ×2 (08:42→10:00)
[2017-10-28] MEDS ORDERED: REGADENOSON 0.4 MG/5 ML PRE-FILLED SYRINGE IVPUSH ONE ×2 (09:15→10:28)
--- NOTE | 2017-10-28 11:27 | PN ---
Progress Note, Physician History of Present Illness: Denies further chest pain or dyspnea. - Current Medication List Current Medications: Active Medications Aspirin (Asa -) 81 mg PO DAILY [facility] Last Admin: 10/28/17 08:41 Dose: 81 mg Atorvastatin Calcium (Lipitor -) 40 mg PO HS [facility] Last Admin: 10/27/17 22:12 Dose: 40 mg Carvedilol (Coreg -) 12.5 mg PO BID [facility] Last Admin: 10/28/17 08:41 Dose: 12.5 mg Furosemide (Lasix -) 40 mg PO DAILY [facility] Last Admin: 10/28/17 08:41 Dose: 40 mg Glipizide (Glucotrol -) 5 mg PO BIDAC [facility] Last Admin: 10/28/17 06:40 Dose: 5 mg Hydralazine HCl (Apresoline -) 100 mg PO TID [facility] Last Admin: 10/28/17 06:40 Dose: 100 mg Isosorbide Mononitrate (Imdur -) 30 mg PO DAILY [facility] Last Admin: 10/28/17 08:41 Dose: 30 mg Nifedipine (Procardia Xl -) 90 mg PO DAILY [facility] Last Admin: 10/28/17 08:42 Dose: 90 mg - Objective Vital Signs: Vital Signs Temperature 99.0 F 10/28/17 06:00 Pulse Rate 85 10/28/17 06:00 Respiratory Rate 20 10/28/17 06:49 Blood Pressure 152/93 10/28/17 06:00 O2 Sat by Pulse Oximetry (%) 98 10/28/17 06:49 Constitutional: Yes: No Distress, Calm Neck: Yes: Supple Cardiovascular: Yes: Regular Rate and Rhythm Respiratory: Yes: Regular, CTA Bilaterally Gastrointestinal: Yes: Normal Bowel Sounds, Soft Edema: No Labs: CBC, BMP 10/27/17 08:35 10/27/17 08:35 INR, PTT INR 1.03 (0.83-1.09) 10/26/17 17:30 Problem List - Problems (1) Chest pain Code(s): R07.9 - CHEST PAIN, UNSPECIFIED Qualifiers: Chest pain type: unspecified Qualified Code(s): R07.9 - Chest pain, unspecified (2) Cocaine abuse Code(s): F14.10 - COCAINE ABUSE, UNCOMPLICATED (3) History of percutaneous coronary intervention Code(s): Z98.890 - OTHER SPECIFIED POSTPROCEDURAL STATES (4) CAD (coronary artery disease) Code(s): I25.10 - ATHSCL HEART DISEASE OF [place] CORONARY ARTERY W/O ANG PCTRS Qualifiers: Coronary Disease-Associated Artery/Lesion type: [place] artery [place] vs. transplanted heart: [place] heart Associated angina: without angina Qualified Code(s): I25.10 - Atherosclerotic heart disease of [place] coronary artery without angina pectoris (5) CKD (chronic kidney disease) stage 3, GFR 30-59 ml/min Code(s): N18.3 - CHRONIC KIDNEY DISEASE, STAGE 3 (MODERATE) (6) Diabetes Code(s): E11.9 - TYPE 2 DIABETES MELLITUS WITHOUT COMPLICATIONS Qualifiers: Diabetes mellitus type: type 2 (7) Diastolic dysfunction without heart failure Code(s): I51.9 - HEART DISEASE, UNSPECIFIED (8) HTN (hypertension) Code(s): I10 - ESSENTIAL (PRIMARY) HYPERTENSION Qualifiers: Hypertension type: essential hypertension (9) History of myocardial infarction Code(s): I25.2 - OLD MYOCARDIAL INFARCTION (10) Hyperglycemia due to type 2 diabetes mellitus Code(s): E11.65 - TYPE 2 DIABETES MELLITUS WITH HYPERGLYCEMIA Qualifiers: Diabetes mellitus correction insulin use: without correction use Qualified Code(s): E11.65 - Type 2 diabetes mellitus with hyperglycemia (11) Hyperlipidemia Code(s): E78.5 - HYPERLIPIDEMIA, UNSPECIFIED Qualifiers: Hyperlipidemia type: pure hypercholesterolemia Qualified Code(s): E78.00 - Pure hypercholesterolemia, unspecified Assessment/Plan 10/27/2017 Echo: Mild cLVH, normal RV and LV size and fxn, mild-mod MR, mild AR 1. Chest pain syndrome with underlying CAD s/p PCI/stent, history of [place]/ACS 2. HTN 3. Hypercholesterolemia 4. DM 5. History of CKD 6. History of angioedema due to ACEI 7. History of systolic/diastolic dysfunction, currently euvolemic 8. Substance abuse (Cocaine) PLAN: 1. Serial cardiac enzymes negative X 3 sets 2. Continue Procardia XL 90 qd, Hydralazine 100 tid, Imdur 30 qd, Carvedilol 12.5 bid, Lipitor 40 qhs, Lasix 40 qd and ASA 81 qd 3. F/u nuclear MPI results
--- NOTE | 2017-10-28 16:02 | PN ---
Progress Note, Physician History of Present Illness: feeling good no chest pain - Current Medication List Current Medications: Active Medications Aspirin (Asa -) 81 mg PO DAILY [facility] Last Admin: 10/28/17 10:00 Dose: Not Given Atorvastatin Calcium (Lipitor -) 40 mg PO HS [facility] Last Admin: 10/27/17 22:12 Dose: 40 mg Carvedilol (Coreg -) 12.5 mg PO BID [facility] Last Admin: 10/28/17 10:00 Dose: Not Given Furosemide (Lasix -) 40 mg PO DAILY [facility] Last Admin: 10/28/17 10:00 Dose: Not Given Glipizide (Glucotrol -) 5 mg PO BIDAC [facility] Last Admin: 10/28/17 06:40 Dose: 5 mg Hydralazine HCl (Apresoline -) 100 mg PO TID [facility] Last Admin: 10/28/17 13:39 Dose: 100 mg Isosorbide Mononitrate (Imdur -) 30 mg PO DAILY [facility] Last Admin: 10/28/17 10:00 Dose: Not Given Nifedipine (Procardia Xl -) 90 mg PO DAILY [facility] Last Admin: 10/28/17 10:00 Dose: Not Given - Objective Vital Signs: Vital Signs Temperature 98.7 F 10/28/17 09:00 Pulse Rate 81 10/28/17 09:55 Respiratory Rate 18 10/28/17 09:55 Blood Pressure 143/99 10/28/17 09:55 O2 Sat by Pulse Oximetry (%) 98 10/28/17 09:00 Constitutional: Yes: No Distress HENT: Yes: Atraumatic Neck: Yes: Supple Cardiovascular: Yes: Regular Rate and Rhythm Respiratory: Yes: CTA Bilaterally Gastrointestinal: Yes: Normal Bowel Sounds Extremities: Yes: WNL Edema: No Peripheral Pulses WNL: Yes Neurological: Yes: Alert, Oriented Labs: CBC, BMP 10/27/17 08:35 10/27/17 08:35 INR, PTT INR 1.03 (0.83-1.09) 10/26/17 17:30 Problem List - Problems (1) Chest pain Assessment/Plan: resolved troponins negative tele monitoring Code(s): R07.9 - CHEST PAIN, UNSPECIFIED Qualifiers: Chest pain type: unspecified Qualified Code(s): R07.9 - Chest pain, unspecified (2) Diabetes Assessment/Plan: on po meds monitor bgms Code(s): E11.9 - TYPE 2 DIABETES MELLITUS WITHOUT COMPLICATIONS Qualifiers: Diabetes mellitus type: type 2 (3) HTN (hypertension) Assessment/Plan: on meds bp still high but better Code(s): I10 - ESSENTIAL (PRIMARY) HYPERTENSION Qualifiers: Hypertension type: essential hypertension Qualified Code(s): I10 - Essential (primary) hypertension
--- NOTE | 2017-10-28 16:02 | DS ---
Physical Examination Vital Signs: Vital Signs Temperature 98.7 F 10/28/17 09:00 Pulse Rate 81 10/28/17 09:55 Respiratory Rate 18 10/28/17 09:55 Blood Pressure 143/99 10/28/17 09:55 O2 Sat by Pulse Oximetry (%) 98 10/28/17 09:00 Labs: CBC, BMP 10/27/17 08:35 10/27/17 08:35 Discharge Summary Reason For Visit: CHEST PAIN Current Active Problems Chest pain (Acute) Condition: Stable - Instructions Referrals: Lenny Hernandez MD [Primary Care Provider] - - Home Medications Comprehensive Discharge Medication List: Ambulatory Orders Aspirin 81 mg PO DAILY 05/10/17 Atorvastatin Ca [Lipitor] 40 mg PO HS 05/10/17 Ergocalciferol [Vitamin D2] 50,000 unit PO FR 05/10/17 Furosemide [Lasix -] 40 mg PO DAILY 05/10/17 Glipizide 5 mg PO BID 05/10/17 Hydralazine HCl 100 mg PO TID 05/10/17 Isosorbide Mononitrate [Imdur -] 30 mg PO DAILY 05/10/17 Carvedilol [Coreg -] 12.5 mg PO BID tablet 05/13/17 Nifedipine ER [Procardia XL -] 90 mg PO DAILY #30 tab.er.24 05/13/17
[2017-10-28] MEDS: CARVEDILOL 25 MG TABLET (FP) PO SCH (22:31)
[2017-10-28] MEDS: ATORVASTATIN CA 40 MG TABLET (FP) PO SCH (22:31)
[2017-10-29] MEDS: glipiZIDE 5 MG TABLET (FP) PO SCH ×2 (06:47→16:40)
[2017-10-29] MEDS: hydrALAZINE HCL 50 MG TABLET (FP) PO SCH ×3 (06:48→23:28)
[2017-10-29] MEDS ORDERED: PT OWN MED DRAWER 7, Y5N ONE (11:05)
[2017-10-29] MEDS: ISOSORBIDE MONONITRATE 30 MG TAB.SR.24H (FP) PO SCH (11:06)
[2017-10-29] MEDS: ASPIRIN 81 MG CHEWABLE TABLETS PO SCH (11:06)
[2017-10-29] MEDS: NIFEdipine E.R. 90 MG TABLET (FP) PO SCH (11:06)
[2017-10-29] MEDS: CARVEDILOL 25 MG TABLET (FP) PO SCH ×2 (11:06→23:28)
[2017-10-29] MEDS: FUROSEMIDE 40 MG TABLET (FP) PO SCH (11:06)
[2017-10-29] MEDS ORDERED: REGADENOSON 0.4 MG/5 ML PRE-FILLED SYRINGE IVPUSH ONE ×2 (11:57→14:30)
--- NOTE | 2017-10-29 12:23 | PN ---
Progress Note, Physician History of Present Illness: Denies further chest pain or dyspnea. BP elevated this AM as medications were withheld prior to stress test. Subsequently, I asked nurse to administer prior to stress. Clarification with patient, previous cath showed no sig stenosis and did not receive stent. - Current Medication List Current Medications: Active Medications Aspirin (Asa -) 81 mg PO DAILY [facility] Last Admin: 10/29/17 11:06 Dose: 81 mg Atorvastatin Calcium (Lipitor -) 40 mg PO HS [facility] Last Admin: 10/28/17 22:31 Dose: 40 mg Carvedilol (Coreg -) 25 mg PO BID [facility] Last Admin: 10/29/17 11:06 Dose: 25 mg Furosemide (Lasix -) 40 mg PO DAILY [facility] Last Admin: 10/29/17 11:06 Dose: 40 mg Glipizide (Glucotrol -) 5 mg PO BIDAC [facility] Last Admin: 10/29/17 06:47 Dose: 5 mg Hydralazine HCl (Apresoline -) 100 mg PO TID [facility] Last Admin: 10/29/17 06:48 Dose: 100 mg Isosorbide Mononitrate (Imdur -) 30 mg PO DAILY [facility] Last Admin: 10/29/17 11:06 Dose: 30 mg Nifedipine (Procardia Xl -) 90 mg PO DAILY [facility] Last Admin: 10/29/17 11:06 Dose: 90 mg - Objective Vital Signs: Vital Signs Temperature 98.6 F 10/29/17 06:00 Pulse Rate 85 10/29/17 06:00 Respiratory Rate 20 10/29/17 06:23 Blood Pressure 116/100 10/29/17 06:00 O2 Sat by Pulse Oximetry (%) 98 10/29/17 06:23 Constitutional: Yes: No Distress, Calm Neck: Yes: Supple Cardiovascular: Yes: Regular Rate and Rhythm Respiratory: Yes: Regular, CTA Bilaterally Gastrointestinal: Yes: Normal Bowel Sounds, Soft Edema: No Labs: CBC, BMP 10/27/17 08:35 10/27/17 08:35 INR, PTT INR 1.03 (0.83-1.09) 10/26/17 17:30 Problem List - Problems (1) Chest pain Code(s): R07.9 - CHEST PAIN, UNSPECIFIED Qualifiers: Chest pain type: unspecified Qualified Code(s): R07.9 - Chest pain, unspecified (2) Cocaine abuse Code(s): F14.10 - COCAINE ABUSE, UNCOMPLICATED (3) CAD (coronary artery disease) Code(s): I25.10 - ATHSCL HEART DISEASE OF [place] CORONARY ARTERY W/O ANG PCTRS Qualifiers: Coronary Disease-Associated Artery/Lesion type: [place] artery [place] vs. transplanted heart: [place] heart Associated angina: without angina Qualified Code(s): I25.10 - Atherosclerotic heart disease of [place] coronary artery without angina pectoris (4) CKD (chronic kidney disease) stage 3, GFR 30-59 ml/min Code(s): N18.3 - CHRONIC KIDNEY DISEASE, STAGE 3 (MODERATE) (5) Diabetes Code(s): E11.9 - TYPE 2 DIABETES MELLITUS WITHOUT COMPLICATIONS Qualifiers: Diabetes mellitus type: type 2 (6) Diastolic dysfunction without heart failure Code(s): I51.9 - HEART DISEASE, UNSPECIFIED (7) HTN (hypertension) Code(s): I10 - ESSENTIAL (PRIMARY) HYPERTENSION Qualifiers: Hypertension type: essential hypertension Qualified Code(s): I10 - Essential (primary) hypertension (8) History of myocardial infarction Code(s): I25.2 - OLD MYOCARDIAL INFARCTION (9) Hyperglycemia due to type 2 diabetes mellitus Code(s): E11.65 - TYPE 2 DIABETES MELLITUS WITH HYPERGLYCEMIA Qualifiers: Diabetes mellitus long-term insulin use: without truck terminal manager use Qualified Code(s): E11.65 - Type 2 diabetes mellitus with hyperglycemia (10) Hyperlipidemia Code(s): E78.5 - HYPERLIPIDEMIA, UNSPECIFIED Qualifiers: Hyperlipidemia type: pure hypercholesterolemia Qualified Code(s): E78.00 - Pure hypercholesterolemia, unspecified Assessment/Plan 10/27/2017 Echo: Mild cLVH, normal RV and LV size and fxn, mild-mod MR, mild AR 1. Chest pain syndrome with underlying non-obstructive CAD, history of [place]/ACS 2. HTN 3. Hypercholesterolemia 4. DM 5. History of CKD 6. History of angioedema due to ACEI 7. History of systolic/diastolic dysfunction, currently euvolemic 8. Substance abuse (Cocaine) PLAN: 1. Serial cardiac enzymes negative X 3 sets 2. Continue Procardia XL 90 qd, Hydralazine 100 tid, Imdur 30 qd, Carvedilol 25 bid, Lipitor 40 qhs, Lasix 40 qd and ASA 81 qd 3. F/u nuclear MPI results
[2017-10-29] MEDS ORDERED: hydrALAZINE HCL 25 MG TABLET (FP) ONE (13:51)
--- NOTE | 2017-10-29 17:59 | PN ---
Progress Note, Physician History of Present Illness: feeling good no chest pain - Current Medication List Current Medications: Active Medications Aspirin (Asa -) 81 mg PO DAILY [facility] Last Admin: 10/29/17 11:06 Dose: 81 mg Atorvastatin Calcium (Lipitor -) 40 mg PO HS [facility] Last Admin: 10/28/17 22:31 Dose: 40 mg Carvedilol (Coreg -) 25 mg PO BID [facility] Last Admin: 10/29/17 11:06 Dose: 25 mg Furosemide (Lasix -) 40 mg PO DAILY [facility] Last Admin: 10/29/17 11:06 Dose: 40 mg Glipizide (Glucotrol -) 5 mg PO BIDAC [facility] Last Admin: 10/29/17 16:40 Dose: 5 mg Hydralazine HCl (Apresoline -) 100 mg PO TID [facility] Last Admin: 10/29/17 13:54 Dose: 100 mg Isosorbide Mononitrate (Imdur -) 30 mg PO DAILY [facility] Last Admin: 10/29/17 11:06 Dose: 30 mg Nifedipine (Procardia Xl -) 90 mg PO DAILY [facility] Last Admin: 10/29/17 11:06 Dose: 90 mg - Objective Vital Signs: Vital Signs Temperature 98.6 F 10/29/17 17:01 Pulse Rate 84 10/29/17 17:01 Respiratory Rate 20 10/29/17 17:01 Blood Pressure 161/110 10/29/17 17:01 O2 Sat by Pulse Oximetry (%) 98 10/29/17 08:00 Constitutional: Yes: No Distress HENT: Yes: Atraumatic Neck: Yes: Supple Cardiovascular: Yes: Regular Rate and Rhythm Respiratory: Yes: CTA Bilaterally Gastrointestinal: Yes: Normal Bowel Sounds Extremities: Yes: WNL Neurological: Yes: Alert, Oriented Labs: CBC, BMP 10/27/17 08:35 10/27/17 08:35 INR, PTT INR 1.03 (0.83-1.09) 10/26/17 17:30 Problem List - Problems (1) Chest pain Assessment/Plan: resolved troponins negative tele monitoring Code(s): R07.9 - CHEST PAIN, UNSPECIFIED Qualifiers: Chest pain type: unspecified Qualified Code(s): R07.9 - Chest pain, unspecified (2) Diabetes Assessment/Plan: on po meds monitor bgms Code(s): E11.9 - TYPE 2 DIABETES MELLITUS WITHOUT COMPLICATIONS Qualifiers: Diabetes mellitus type: type 2 (3) HTN (hypertension) Assessment/Plan: on meds bp still high but better Code(s): I10 - ESSENTIAL (PRIMARY) HYPERTENSION Qualifiers: Hypertension type: essential hypertension Qualified Code(s): I10 - Essential (primary) hypertension
[2017-10-29] MEDS: ATORVASTATIN CA 40 MG TABLET (FP) PO SCH (23:29)
[2017-10-30] MEDS: hydrALAZINE HCL 50 MG TABLET (FP) PO SCH ×2 (05:38→14:25)
[2017-10-30] MEDS: glipiZIDE 5 MG TABLET (FP) PO SCH (06:03)
[2017-10-30] MEDS ORDERED: PT OWN MED DRAWER 7, Y5N ONE (09:11)
[2017-10-30] MEDS: CARVEDILOL 25 MG TABLET (FP) PO SCH (09:13)
[2017-10-30] MEDS: ASPIRIN 81 MG CHEWABLE TABLETS PO SCH (09:13)
[2017-10-30] MEDS: NIFEdipine E.R. 90 MG TABLET (FP) PO SCH (09:13)
[2017-10-30] MEDS: ISOSORBIDE MONONITRATE 30 MG TAB.SR.24H (FP) PO SCH (09:13)
[2017-10-30] MEDS: FUROSEMIDE 40 MG TABLET (FP) PO SCH (09:13)
[2017-10-30 09:51] VITALS: TEMP 99
[2017-10-30 10:09] VITALS: BP 151/101; PULSE 81
--- NOTE | 2017-10-30 11:27 | PN ---
Progress Note, Physician History of Present Illness: Denies further chest pain or dyspnea. BP elevated this AM as medications were withheld prior to stress test. Subsequently, I asked nurse to administer prior to stress. Clarification with patient, previous cath showed no sig stenosis and did not receive stent. - Current Medication List Current Medications: Active Medications Aspirin (Asa -) 81 mg PO DAILY [facility] Last Admin: 10/30/17 09:13 Dose: 81 mg Atorvastatin Calcium (Lipitor -) 40 mg PO HS [facility] Last Admin: 10/29/17 23:29 Dose: 40 mg Carvedilol (Coreg -) 25 mg PO BID [facility] Last Admin: 10/30/17 09:13 Dose: 25 mg Furosemide (Lasix -) 40 mg PO DAILY [facility] Last Admin: 10/30/17 09:13 Dose: 40 mg Glipizide (Glucotrol -) 5 mg PO BIDAC [facility] Last Admin: 10/30/17 06:03 Dose: 5 mg Hydralazine HCl (Apresoline -) 100 mg PO TID [facility] Last Admin: 10/30/17 05:38 Dose: 100 mg Isosorbide Mononitrate (Imdur -) 30 mg PO DAILY [facility] Last Admin: 10/30/17 09:13 Dose: 30 mg Nifedipine (Procardia Xl -) 90 mg PO DAILY [facility] Last Admin: 10/30/17 09:13 Dose: 90 mg - Objective Vital Signs: Vital Signs Temperature 99.0 F 10/30/17 09:00 Pulse Rate 81 10/30/17 10:09 Respiratory Rate 20 10/30/17 10:09 Blood Pressure 151/101 10/30/17 10:09 O2 Sat by Pulse Oximetry (%) 97 10/29/17 23:00 Constitutional: Yes: No Distress, Calm Neck: Yes: Supple Cardiovascular: Yes: Regular Rate and Rhythm Respiratory: Yes: Regular, CTA Bilaterally Gastrointestinal: Yes: Normal Bowel Sounds, Soft Edema: No Labs: CBC, BMP 10/27/17 08:35 10/27/17 08:35 INR, PTT INR 1.03 (0.83-1.09) 10/26/17 17:30 Problem List - Problems (1) Chest pain Code(s): R07.9 - CHEST PAIN, UNSPECIFIED Qualifiers: Chest pain type: unspecified Qualified Code(s): R07.9 - Chest pain, unspecified (2) Cocaine abuse Code(s): F14.10 - COCAINE ABUSE, UNCOMPLICATED (3) CAD (coronary artery disease) Code(s): I25.10 - ATHSCL HEART DISEASE OF [place] CORONARY ARTERY W/O ANG PCTRS Qualifiers: Coronary Disease-Associated Artery/Lesion type: [place] artery [place] vs. transplanted heart: [place] heart Associated angina: without angina Qualified Code(s): I25.10 - Atherosclerotic heart disease of [place] coronary artery without angina pectoris (4) CKD (chronic kidney disease) stage 3, GFR 30-59 ml/min Code(s): N18.3 - CHRONIC KIDNEY DISEASE, STAGE 3 (MODERATE) (5) Diabetes Code(s): E11.9 - TYPE 2 DIABETES MELLITUS WITHOUT COMPLICATIONS Qualifiers: Diabetes mellitus type: type 2 (6) Diastolic dysfunction without heart failure Code(s): I51.9 - HEART DISEASE, UNSPECIFIED (7) HTN (hypertension) Code(s): I10 - ESSENTIAL (PRIMARY) HYPERTENSION Qualifiers: Hypertension type: essential hypertension Qualified Code(s): I10 - Essential (primary) hypertension (8) History of myocardial infarction Code(s): I25.2 - OLD MYOCARDIAL INFARCTION (9) Hyperglycemia due to type 2 diabetes mellitus Code(s): E11.65 - TYPE 2 DIABETES MELLITUS WITH HYPERGLYCEMIA Qualifiers: Diabetes mellitus detention insulin use: without termite control technician use Qualified Code(s): E11.65 - Type 2 diabetes mellitus with hyperglycemia (10) Hyperlipidemia Code(s): E78.5 - HYPERLIPIDEMIA, UNSPECIFIED Qualifiers: Hyperlipidemia type: pure hypercholesterolemia Qualified Code(s): E78.00 - Pure hypercholesterolemia, unspecified Assessment/Plan 10/27/2017 Echo: Mild cLVH, normal RV and LV size and fxn, mild-mod MR, mild AR 10/29/2017 Regadenoson stress: Large inferior, inferolateral and apical infarct without ischemia, LVEF 29% 1. Chest pain syndrome with underlying non-obstructive CAD, history of [place]/ACS with scar on MPI 2. HTN 3. Hypercholesterolemia 4. DM 5. History of CKD 6. History of angioedema due to ACEI 7. History of systolic/diastolic dysfunction, currently euvolemic 8. Substance abuse (Cocaine) PLAN: 1. Ruled out for [place] 2. Continue Procardia XL 90 qd, Hydralazine 100 tid, Imdur 30 qd, Carvedilol 25 bid, Lipitor 40 qhs, Lasix 40 qd and ASA 81 qd 3. Plan for continued optimal medical therapy given absence of ischemia on MPI 4. Will review imaging studies given discrepancy in LV fxn assessment 5. Abstinence from cocaine
--- NOTE | 2017-10-30 14:36 | DS ---
Physical Examination Vital Signs: Vital Signs Temperature 99.0 F 10/30/17 09:00 Pulse Rate 81 10/30/17 10:09 Respiratory Rate 20 10/30/17 10:09 Blood Pressure 151/101 10/30/17 10:09 O2 Sat by Pulse Oximetry (%) 97 10/29/17 23:00 Constitutional: Yes: No Distress HENT: Yes: Atraumatic Neck: Yes: Supple Cardiovascular: Yes: Regular Rate and Rhythm Respiratory: Yes: CTA Bilaterally Gastrointestinal: Yes: Normal Bowel Sounds Extremities: Yes: WNL Neurological: Yes: Alert, Oriented Labs: CBC, BMP 10/27/17 08:35 10/27/17 08:35 Discharge Summary Reason For Visit: CHEST PAIN Current Active Problems Chest pain (Acute) Condition: Stable - Instructions Referrals: Lenny Hernandez MD [Primary Care Provider] - - Home Medications Comprehensive Discharge Medication List: Ambulatory Orders Aspirin 81 mg PO DAILY 05/10/17 Atorvastatin Ca [Lipitor] 40 mg PO HS 05/10/17 Ergocalciferol [Vitamin D2] 50,000 unit PO FR 05/10/17 Furosemide [Lasix -] 40 mg PO DAILY 05/10/17 Glipizide 5 mg PO BID 05/10/17 Hydralazine HCl 100 mg PO TID 05/10/17 Isosorbide Mononitrate [Imdur -] 30 mg PO DAILY 05/10/17 Carvedilol [Coreg -] 12.5 mg PO BID tablet 05/13/17 Nifedipine ER [Procardia XL -] 90 mg PO DAILY #30 tab.er.24 05/13/17 Carvedilol [Coreg -] 25 mg PO BID #60 tablet 10/30/17 dc home fu pmd and cardiology
== END 2017-10-30 15:04 | disposition home or self-care (01) | DRG 198 ==
LOC: JER 17:02 → JERBED 18:24 → UNDOADMOB 18:24 → INTOOBSV 18:24 → JERBED 21:06 → J6S 10-27 13:44 → UNDODISOB 10-30 15:04
PROVIDERS: ADMIT Internal Medicine; ATTEND Internal Medicine
DX: I25.10 Atherosclerotic heart disease of native coronary artery without angina pectoris (principal); R07.89 Other chest pain; I25.2 Old myocardial infarction; F14.10 Cocaine abuse, uncomplicated; I42.8 Other cardiomyopathies; E78.5 Hyperlipidemia, unspecified; F17.210 Nicotine dependence, cigarettes, uncomplicated; E66.8 Other obesity; Z68.34 Body mass index [BMI] 34.0-34.9, adult; R00.0 Tachycardia, unspecified; M54.5 Low back pain; K21.9 Gastro-esophageal reflux disease without esophagitis; J45.909 Unspecified asthma, uncomplicated; I12.9 Hypertensive chronic kidney disease with stage 1 through stage 4 chronic kidney disease, or unspecified chronic kidney disease; E11.22 Type 2 diabetes mellitus with diabetic chronic kidney disease; N18.3 Chronic kidney disease, stage 3 (moderate); Z95.5 Presence of coronary angioplasty implant and graft
CPT/HCPCS: 36415; 71045-TC-FY; 78452-TC; 80053; 80307; 82550; 82553; 82962; 83735; 84484; 85025; 85610; 86850; 86900; 86901; 93005; 93010; 93017; 93306-TC; 96374; 96375; 99285-25; A9502; G0378; J2785

== ENCOUNTER 2018-04-12 15:03 | Inpatient (IN) | payer OTHER ==
--- NOTE | 2018-04-12 15:43 | PDOC ---
History of Present Illness - General Chief Complaint: Respiratory Stated Complaint: CHEST PAIN Time Seen by Provider: 04/12/18 15:43 History Source: Patient Exam Limitations: No Limitations - History of Present Illness Initial Comments: 57 yo M w a pmh of HTN, HLD, CAD, CO s/p PCI, DM, cocaine abuse, non-ischemic dilated cardiomyopathy, LV systolic dysfunction, GERD, Renal insufficiency, chronic low back pain, presents to the ER via private auto with left sided chest pain, a productive cough, SOB, difficulty breathing, and dyspnea on exertion. He states he has had the cough associated with a significant amount of sputum production for the past 7 days. He states the left sided chest pain which is 8/10 in intensity and described as sharp and stabbing in character is associated with mild radiation to his left arm and he feels left hand numbness but no radiation to the back or jaw. He states that for the past 2 hours any physical activity is extremely tiring and he endorses significant dyspnea on exertion. He endorses mild nausea but no emesis. He does not believe he had a fever over the past few days but says he always feels warm. Denies recent fevers, headache, neck pain, vomiting, diarrhea, constipation, leg pain, leg/arm swelling, blurry vision, back pain, dysuria, frequency, urgency, or vertigo. PCP: Lenny Hernandez Allergies: IRMA inhibitors Social Hx: Endorses using cocaine, alcohol, and smoking. PSH: Right testicle orchiopexy, stent Past History - Past Medical History Allergies/Adverse Reactions: Allergies Allergy/AdvReac Type Severity Reaction Status Date / Time IRMA Inhibitors Allergy Verified 04/12/18 15:11 Home Medications: Ambulatory Orders Aspirin 81 mg PO DAILY 05/10/17 Atorvastatin Ca [Lipitor] 40 mg PO HS 05/10/17 Ergocalciferol [Vitamin D2] 50,000 unit PO FR 05/10/17 Furosemide [Lasix -] 40 mg PO DAILY 05/10/17 Glipizide 5 mg PO BID 05/10/17 Hydralazine HCl 100 mg PO TID 05/10/17 Isosorbide Mononitrate [Imdur -] 30 mg PO DAILY 05/10/17 Carvedilol [Coreg -] 12.5 mg PO BID tablet 05/13/17 Nifedipine ER [Procardia XL -] 90 mg PO DAILY #30 tab.er.24 05/13/17 Carvedilol [Coreg -] 25 mg PO BID #60 tablet 10/30/17 Anemia: No Asthma: Yes Cancer: No Cardiac Disorders: Yes (ACS,CO X 3,NO STENTS) CVA: No COPD: No CHF: No DVT: No Dementia: No Diabetes: Yes GI Disorders: No Disorders: No HTN: Yes Hypercholesterolemia: Yes Kidney Stones: No Liver Disease: No Seizures: No Thyroid Disease: No - Surgical History Abdominal Surgery: No Appendectomy: No Cardiac Surgery: No Cholecystectomy: No Lung Surgery: No Neurologic Surgery: No Orthopedic Surgery: Yes (old orthopedic injury fractured left ankle x2) - Reproductive History Testicular Surgery: No - Immunization History Immunization Up to Date: Yes - Suicide/Smoking/Psychosocial Hx Smoking Status: No Smoking History: Current some day smoker Have you smoked in the past 12 months: Yes Number of Cigarettes Smoked Daily: 3 Information on smoking cessation initiated: No 'Breaking Loose' booklet given: 10/27/17 Hx Alcohol Use: Yes (beer) Drug/Substance Use Hx: Yes Substance Use Type: Alcohol, Cocaine Hx Substance Use Treatment: No (Drug use in the past) Review of Systems - Review of Systems Able to Perform ROS?: Yes Comments:: CONSTITUTIONAL: Present: Fatigue Absent: fever, no chills EYES: Absent: visual changes ENT: Absent: ear pain, no sore throat CARDIOVASCULAR: Present: Chest pain Absent: no palpitations RESPIRATORY: Present: Cough, SOB GI: Present: Nausea Absent: abdominal pain, no vomiting, no constipation, no diarrhea GENITOURINARY: Absent: dysuria, no frequency, no hematuria MUSKULOSKELETAL: Absent: back pain, no arthralgia, no myalgia SKIN: Absent: rash NEURO: Absent: headache *Physical Exam - Vital Signs Last Vital Signs Temp Pulse Resp BP Pulse Ox 98.2 F 111 H 28 H 149/92 97 04/12/18 15:11 04/12/18 15:11 04/12/18 15:11 04/12/18 15:11 04/12/18 15:11 - Physical Exam Comments: GENERAL: Well-appearing, well-nourished. Moderate distress. HEENT: Normocephalic, atraumatic. PERRL, EOM intact. CARDIOVASCULAR: Tachycardic rate. Normal S1, S2. Regular rhythm. No M/r/g appreciated. PULMONARY: There is significant bilateral wheezes and rhonchi in the lower lung garcia. No crackles. ABDOMEN: Soft, non-distended, non-tender. EXTREMITIES: Normal ROM in all four extremities. No gross deformities. SKIN: Warm, dry. No rash NEUROLOGICAL: No focal neurological deficits. Moderate Sedation - Procedure Monitoring Vital Signs: Procedure Monitoring Vital Signs Temperature 98.2 F 04/12/18 15:11 Pulse Rate 111 H 04/12/18 15:11 Respiratory Rate 28 H 04/12/18 15:11 Blood Pressure 149/92 04/12/18 15:11 O2 Sat by Pulse Oximetry (%) 97 04/12/18 15:11 ED Treatment Course - LABORATORY CBC & Chemistry Diagram: 04/12/18 17:00 04/12/18 17:00 Medical Decision Making - Medical Decision Making 57 yo M w a pmh of HTN, HLD, CAD, CO s/p PCI, DM, cocaine abuse, non-ischemic dilated cardiomyopathy, LV systolic dysfunction, GERD, Renal insufficiency, chronic low back pain, presents to the ER via private auto with left sided chest pain, a productive cough, SOB, difficulty breathing, and dyspnea on exertion. He states he has had the cough associated with a significant amount of sputum production for the past 7 days. He states the left sided chest pain which is 8/10 in intensity and described as sharp and stabbing in character is associated with mild radiation to his left arm and he feels left hand numbness but no radiation to the back or jaw. He states that for the past 2 hours any physical activity is extremely tiring and he endorses significant dyspnea on exertion. He endorses mild nausea but no emesis. He does not believe he had a fever over the past few days but says he always feels warm. VS: Tachycardic and tachypneic DDx IBNLT: ACS/CO, PNA, Heart failure, pulmonary edema, pleural effusion, pneumothorax, GERD, PE Plan: EKG, Labs, cultures, urine, Sepsis workup, Duonebs, aspirin, re-assess. Trop elevated to 0.11 Cardio consulted - Dr. Singletary - Giving aspirin and lovenox and will admit to Tele after ER workup. *DC/Admit/Observation/Transfer Diagnosis at time of Disposition: Chest pain - Discharge Dispostion Condition at time of disposition: Guarded Decision to Admit order: Yes - Referrals Referrals: Lenny Hernandez MD [Primary Care Provider] - - Patient Instructions - Post Discharge Activity
[2018-04-12] MEDS ORDERED: ALBUTEROL SO4 2.5/IPRATROPIUM 0.5 INH SOL 3 ML VIAL.NEB. NEB ONE ×3 (16:04→22:52)
[2018-04-12] MEDS ORDERED: ASPIRIN 81 MG CHEWABLE TABLETS PO ONE (16:13)
[2018-04-12] MEDS ORDERED: ASPIRIN 81 MG CHEWABLE TABLETS ONE (16:32)
--- NOTE | 2018-04-12 17:17 | PDOC ---
Attending Attestation - Resident Resident Name: Campos Tomlin - ED Attending Attestation I have performed the following: I have examined & evaluated the patient, The case was reviewed & discussed with the resident, I agree w/resident's findings & plan, Exceptions are as noted - HPI HPI: 04/12/18 17:16 57-year-old male presents with chest pain, shortness of breath and fatigue. This started 45 minutes prior to arrival. History of present illness he has one week of cough that then developed into a productive cough and then within the last 24 hours he became dyspneic on exertion. - Physicial Exam PE: 04/12/18 18:53 obese 57 yo male p/w cough,chest pain and exertional dyspnea head ncat neck no bruits lungs scattered rhonchi cvs tachycardia abd protuberant, no rebound,no guarding ext mild pitting edema no cva tenderness skin warm and dry neuro axox3, ambulatory psych appropriate - Medical Decision Making 04/12/18 17:17 61-year-old male with significant comorbidities presents with chest pain and exertional dyspnea. He states the pain has no radiation and that is sharp and stabbing. Past medical history significant for ACS, status post stents, hypertension, dilated cardiomyopathy, diabetes Echo was done 10/27/2017 that showed normal function, ejection fraction of 55%. However, on 10/28/2017 he had a perfusion stress test that showed a large inferior, inferior lateral, apical infarct 04/12/18 17:19 Plan EKG, cardiac enzymes, CBC, chemistry, chest x-ray, BNP, coags, and telemetry admission 04/12/18 18:44 CBC is unremarkable. Chemistries show glucose of 341 Troponin needs to be trended because first troponin 0.11. Patient was given aspirin Chest x-rays shows chronic cardiomegaly, no appreciable infiltrates, no ptx pt admitted to telemetry
[2018-04-12 17:25] LABS: BASO % 0.5 % (0-2.0); EOS % 2.1 % (0-4.5); HEMOGLOBIN 12.5 GM/dL (11.7-16.9); LYMPH % 13.1 % (8-40); MCH 31.2 pg (25.7-33.7); MCHC 33.7 g/dl (32.0-35.9); MEAN CELL VOLUME 92.6 fl (80-96); MEAN PLT VOLUME 7.8 fl (7.5-11.1); MONO % 4.4 % (3.8-10.2); NEUT % 79.9 % (42.8-82.8); PLATELET COUNT 344 K/MM3 (134-434); RDW 14.6 % (11.9-15.9); WHITE BLOOD COUNT 10.4 K/mm3 (4.0-10.0)
[2018-04-12 17:29] LABS: VENOUS PC02 42.6 mmHg (38-52); VENOUS PH 7.39 (7.32-7.42)
[2018-04-12 17:36] LABS: INR 1.06 (0.83-1.09); PROTHROMBIN TIME (PATIENT) 12.5 SEC (9.7-13.0)
[2018-04-12 18:02] LABS: ALBUMIN 3.2 g/dl (3.4-5.0); ALK PHOS 187 U/L (45-117); ANION GAP 9 MMOL/L (8-16); BILIRUBIN,TOTAL 0.4 mg/dL (0.2-1); BLOOD UREA NITROGEN 17 mg/dL (7-18); CHLORIDE 99 mmol/L (98-107); CO2 27 mmol/L (21-32); CREATININE 1.3 mg/dL (0.55-1.3); SGOT/AST 18 U/L (15-37); SGPT/ALT 39 U/L (13-61); SODIUM 135 mmol/L (136-145); TOT PROT 7.6 g/dl (6.4-8.2)
[2018-04-12 18:03] LABS: GLUCOSE,RANDOM 341 mg/dL (74-106)
[2018-04-12] MEDS ORDERED: ENOXAPARIN NA (PORCINE) 100 MG/1 ML DISP.SYRIN SQ ONE ×2 (18:14→18:28)
[2018-04-12] MEDS ORDERED: ENOXAPARIN NA (PORCINE) 40 MG/0.4 ML DISP.SYRIN SQ ONE (18:28)
[2018-04-12] MEDS ORDERED: ACETAMINOPHEN 325 MG TABLET (FP) PO ONE (19:19)
[2018-04-12] MEDS ORDERED: CARVEDILOL 25 MG TABLET (FP) PO ONE (19:20)
[2018-04-12] MEDS ORDERED: ISOSORBIDE MONONITRATE 60 MG TAB.SR.24H (FP) PO ONE ×2 (19:20→20:46)
--- NOTE | 2018-04-12 19:24 | PN ---
Teaching Attending Note Name of Resident: Fiorella Romano ATTENDING PHYSICIAN STATEMENT I saw and evaluated the patient. I reviewed the resident's note and discussed the case with the resident. I agree with the resident's findings and plan as documented. SUBJECTIVE: Patient is a 57 year old man with PMH of alcohol abuse, tobacco use, angioedema due to ACEI, HTN, HLD, CAD, AR s/p PCI, DM, cocaine abuse, non-ischemic dilated cardiomyopathy, LV systolic dysfunction, GERD, ?CKD and chronic low back pain who presents to the ER via private auto with left sided chest pain, a productive cough, SOB, difficulty breathing, and dyspnea on exertion. He states he has had the cough associated with a significant amount of sputum production for the past 7 days. He states the left sided chest pain which is 8/10 in intensity and described as sharp and stabbing in character is associated with mild radiation to his left arm and he feels left hand numbness but no radiation to the back or jaw. He states that for the past 2 hours any physical activity is extremely tiring and he endorses significant dyspnea on exertion. He endorses mild nausea but no emesis. He does not believe he had a fever over the past few days but says he always feels warm. Denies recent fevers, headache, neck pain, vomiting, diarrhea , constipation, leg pain, leg/arm swelling, blurry vision, back pain, dysuria, frequency, urgency, or vertigo. OBJECTIVE: Alert Vital Signs Period Temp Pulse Resp BP Sys/Caal Pulse Ox Last 24 Hr 98.2 F 93-111 20-28 149-178/92-113 94-97 HEENT: No Jaundice, eye redness or discharge, PERRLA, EOMI. Normocephalic, atraumatic. External ears are normal and hearing is grossly intact. No nasal discharge. Neck: Supple, nontender. No palpable adenopathy or thyromegaly. No JVD Chest: Good effort. Bibasilar wheezing. Clear to percussion. Heart: Regular. No S3, rub or murmur Abdomen: Not distended, soft, nontender and no HSM. No rebound or guarding. Normoactive bowel sounds. Ext: Peripheral pulses intact. Leg edema. Skin: Warm and dry. No petechiae, rash or ecchymosis. Neuro: Alert. Oriented x3. CN 2-12 grossly intact. Sensation grossly intact in all four extremities and DTR are symmetric. Current Medications Generic Name Dose Route Start Last Admin Trade Name Rody PRN Reason Stop Dose Admin Enoxaparin Sodium 110 mg 04/13/18 08:00 Lovenox - SQ BID PUSHPA Insulin Aspart 0 vial 04/12/18 22:00 Novolog Vial Sliding Scale - SQ ACHS [facility] Protocol Home Medications Medication Instructions Recorded Aspirin 81 mg PO DAILY 05/10/17 Atorvastatin Ca [Lipitor] 40 mg PO HS 05/10/17 Ergocalciferol [Vitamin D2] 50,000 unit PO FR 05/10/17 Furosemide [Lasix -] 40 mg PO DAILY 05/10/17 Glipizide 5 mg PO BID 05/10/17 Hydralazine HCl 100 mg PO TID 05/10/17 Isosorbide Mononitrate [Imdur -] 30 mg PO DAILY 05/10/17 Carvedilol [Coreg -] 12.5 mg PO BID tablet 05/13/17 Nifedipine ER [Procardia XL -] 90 mg PO DAILY #30 tab.er.24 05/13/17 Carvedilol [Coreg -] 25 mg PO BID #60 tablet 10/30/17 Abnormal Lab Results 04/12/18 04/12/18 04/12/18 17:00 17:00 17:00 WBC 10.4 H Absolute Neuts (auto) 8.3 H POC VBG pO2 Mixed VBG HCO3 Sodium 135 L Random Glucose 341 H* Alkaline Phosphatase 187 H CK-MB (CK-2) 4.7 H Troponin I 0.11 H Albumin 3.2 L 04/12/18 17:00 WBC Absolute Neuts (auto) POC VBG pO2 76.0 H Mixed VBG HCO3 25.4 H Sodium Random Glucose Alkaline Phosphatase CK-MB (CK-2) Troponin I Albumin ASSESSMENT AND PLAN: 1. Chest pain/NSTEMI - EKG showed sinus tachycardia with nonspecific ST-T wave changes that were present in his EKG from Oct 2017. Based on risk factors and elevated troponin, patient started on full dose Lovenox (110 mg SQ q 12 hours) as per cardiology and also got Aspirin. Will admit to telemetry and continue to trend troponin. Get ECHO, continue lipitor and beta blcoker. Ask central station operator about adding Plavix. Flu swab was negative. CXR shows cardiomegaly. increased interstitial markings and prominent cristin. ECHO from 10/27/17 showed mild concentric LV hypertrophy with normal LVEF (55%); RV was normal in size and function. Will treat with IV lasix 40 mg qd in view of history of diastolic dysfunction. Get daily standing weights and restrict dietary salt intake. Has features of COPD exacerbation - felt better after initial duoneb. Will continue duoneb and solumedrol. 2. Hypoalbuminemia - Possibly due to combined effects of malnutrition and inflammation associated with comorbid chronic conditions. Must rule out proteinuria in view of long history of NIDDM. Will ensure adequate dietary protein intake and also consult steam shovel oiler. 3. Uncontrolled DM For now, we will hold the home diabetes drugs and implement sliding scale insulin regimen. Provide comprehensive diabetes care with patient teaching and counseling about the importance of adherence to prescribed diabetes regimen, euglycemia, eye care and foot care. 4. Tobacco Use We will provide patient all the necessary assistance to facilitate smoking cessation and prescribe Nicotine patch. 5. Obesity - Will provide patient all the necessary assistance, counseling and positive reinforcement to facilitate weight loss. Consult steam shovel oiler. 6. Drug and Alcohol abuse - Implement [facility] alcohol withdrawal protocol, fall and aspiration precautions. Treat with thiamine and folic acid and monitor electrolytes (Ca,Mg,K,P). User Experience Developer patient about abstaining from alcohol and refer to alcohol and drug detox upon discharge. Consult ear specialist. 7. Restart outpatient antihypertensive drugs as clinically warranted. Revise regimen to ensure smooth [id number] good BP control. Nonpharmacologic measures to control hypertension like weight loss, salt restriction and exercise discussed. 8. DVT prophylaxis - On full dose Lovenox for NSTEMI. 9. Advance directives - Full code
[2018-04-12] MEDS ORDERED: CARVEDILOL 12.5 MG TABLET (FP) ONE (20:46)
[2018-04-12] MEDS ORDERED: ACETAMINOPHEN 325 MG TABLET (FP) ONE (20:49)
--- NOTE | 2018-04-12 20:56 | HP ---
CHIEF COMPLAINT:shortness of breath, chest pain PCP:Dr. Hernandez HISTORY OF PRESENT ILLNESS: Patient is a 57 year old male with past medical history of asthma, CAD, HTN, HLD , CKD, NIDDM, nonischemic dilated cardiomyopathy, diastolic CHF, substance abuse (cocaine), presented with worsening productive cough and shortness of breath for 7 days, and left sided chest pain for 1 day. Patient reported having worsening productive cough of yellowish sputum that started about 1 week ago. This was accompanied by SOB, dyspnea on exertion and orthopnea. Patient would take about 30 puffs of his albuterol inhaler per day which would provide some relief. Today, patient's cough got worse, minimally relieved by albuterol inhaler, now accompanied by left sided chest pain with lightheadedness. Chest pain was sharp 8/10 nonradiating, aggravated with coughing, relieved when he's not coughing. Patient called a cab and came to the ED. Patient denies any fever , chills, headache, nausea, vomiting, abdominal pain, diarrhea, constipation, dysuria or hematuria. ER course was notable for: (1)Trop 0.11 (2)Aspirin given, Lovenox 110mg sq started (3)Duonebs Recent Travel:denies PAST MEDICAL HISTORY: asthma CAD HTN HLD CKD NIDDM nonischemic dilated cardiomyopathy diastolic CHF substance abuse (cocaine) PAST SURGICAL HISTORY: Right testicular orchiopexy Social History: Smoking:used to smoke 1ppd x >30 years, decreased to 1/2 ppd/month Alcohol:4 beers/day x > 35 years Drugs: denies (last cocaine use 10/2017) Family History: Mother - HTN Sister - DM Allergies IRMA Inhibitors Allergy (Verified 04/12/18 15:11) - angioedema HOME MEDICATIONS: Home Medications Medication Instructions Recorded Aspirin 81 mg PO DAILY 05/10/17 Atorvastatin Ca [Lipitor] 40 mg PO HS 05/10/17 Ergocalciferol [Vitamin D2] 50,000 unit PO FR 05/10/17 Furosemide [Lasix -] 40 mg PO DAILY 05/10/17 Glipizide 5 mg PO BID 05/10/17 Hydralazine HCl 100 mg PO TID 05/10/17 Isosorbide Mononitrate [Imdur -] 30 mg PO DAILY 05/10/17 Nifedipine ER [Procardia XL -] 90 mg PO DAILY #30 tab.er.24 05/13/17 Carvedilol [Coreg -] 25 mg PO BID #60 tablet 10/30/17 REVIEW OF SYSTEMS CONSTITUTIONAL: Absent: fever, chills, diaphoresis, generalized weakness, malaise, loss of appetite, weight change HEENT: Absent: rhinorrhea, nasal congestion, throat pain, throat swelling, difficulty swallowing, mouth swelling, ear pain, eye pain, visual changes CARDIOVASCULAR: Absent: chest pain, syncope, palpitations, irregular heart rate, lightheadedness , peripheral edema RESPIRATORY: Absent: cough, shortness of breath, dyspnea with exertion, orthopnea, wheezing, stridor, hemoptysis GASTROINTESTINAL: Absent: abdominal pain, abdominal distension, nausea, vomiting, diarrhea, constipation, melena, hematochezia GENITOURINARY: Absent: dysuria, frequency, urgency, hesitancy, hematuria, flank pain, genital pain MUSCULOSKELETAL: Absent: myalgia, arthralgia, joint swelling, back pain, neck pain SKIN: Absent: rash, itching, pallor HEMATOLOGIC/IMMUNOLOGIC: Absent: easy bleeding, easy bruising, lymphadenopathy, frequent infections ENDOCRINE: Absent: unexplained weight gain, unexplained weight loss, heat intolerance, cold intolerance NEUROLOGIC: Absent: headache, focal weakness or paresthesias, dizziness, unsteady gait, seizure, mental status changes, bladder or bowel incontinence PSYCHIATRIC: Absent: anxiety, depression, suicidal or homicidal ideation, hallucinations. PHYSICAL EXAMINATION Vital Signs - 24 hr 04/12/18 04/12/18 15:11 18:44 Temperature 98.2 F Pulse Rate 111 H Pulse Rate [ 93 H Right Radial] Respiratory 28 H 20 Rate Blood Pressure 149/92 Blood Pressure 178/113 H [Right Arm] O2 Sat by Pulse 97 94 L Oximetry (%) GENERAL: Awake, alert, and fully oriented, in no acute distress. HEAD: Normal with no signs of trauma. EYES: PERRLA, EOMI, sclera anicteric, conjunctiva clear. EARS, NOSE, THROAT: Ears normal,oropharynx clear without exudates. Moist mucous membranes. NECK: Normal range of motion, supple without lymphadenopathy, JVD, or masses. LUNGS: +Diffuse wheezing bilaterally HEART: Regular rate and rhythm, normal S1 and S2 without murmur, rub or gallop. ABDOMEN: Soft, nontender, not distended, normoactive bowel sounds. MUSCULOSKELETAL: Normal range of motion at all joints. No bony deformities or tenderness. UPPER EXTREMITIES: 2+ pulses, warm, well-perfused. No peripheral edema. LOWER EXTREMITIES: 2+ pulses, warm, well-perfused. No peripheral edema. NEUROLOGICAL: AAOx3, Cranial nerves II-XII intact. Motor strength 5/5 on all extremities, sensation intact. Normal speech. Normal gait. PSYCHIATRIC: Cooperative. Good eye contact. Appropriate mood and affect. SKIN: Warm, dry, normal turgor, no rashes or lesions noted. Laboratory Results - last 24 hr 04/12/18 04/12/18 04/12/18 17:00 17:00 17:00 WBC 10.4 H RBC 4.00 Hgb 12.5 Hct 37.0 MCV 92.6 MCH 31.2 MCHC 33.7 RDW 14.6 Plt Count 344 MPV 7.8 D Absolute Neuts (auto) 8.3 H Neutrophils % 79.9 Lymphocytes % 13.1 Monocytes % 4.4 Eosinophils % 2.1 Basophils % 0.5 Nucleated RBC % 0 PT with INR 12.50 INR 1.06 PTT (Actin FS) VBG pH POC VBG pCO2 POC VBG pO2 Mixed VBG HCO3 Sodium 135 L Potassium 4.0 Chloride 99 Carbon Dioxide 27 Anion Gap 9 BUN 17 Creatinine 1.3 Creat Clearance w eGFR 57.10 Random Glucose 341 H* Lactic Acid Calcium 9.0 Magnesium 2.0 Total Bilirubin 0.4 AST 18 ALT 39 Alkaline Phosphatase 187 H Creatine Kinase Creatine Kinase Index CK-MB (CK-2) Troponin I B-Natriuretic Peptide Total Protein 7.6 Albumin 3.2 L Influenza A (Rapid) Influenza B (Rapid) 04/12/18 04/12/18 04/12/18 17:00 17:00 17:00 WBC RBC Hgb Hct MCV MCH MCHC RDW Plt Count MPV Absolute Neuts (auto) Neutrophils % Lymphocytes % Monocytes % Eosinophils % Basophils % Nucleated RBC % PT with INR INR PTT (Actin FS) 29.7 VBG pH 7.39 POC VBG pCO2 42.6 POC VBG pO2 76.0 H Mixed VBG HCO3 25.4 H Sodium Potassium Chloride Carbon Dioxide Anion Gap BUN Creatinine Creat Clearance w eGFR Random Glucose Lactic Acid Calcium Magnesium Total Bilirubin AST ALT Alkaline Phosphatase Creatine Kinase 212 Creatine Kinase Index 2.2 CK-MB (CK-2) 4.7 H Troponin I 0.11 H B-Natriuretic Peptide No Result Required. Total Protein Albumin Influenza A (Rapid) Influenza B (Rapid) 04/12/18 04/12/18 17:00 17:09 WBC RBC Hgb Hct MCV MCH MCHC RDW Plt Count MPV Absolute Neuts (auto) Neutrophils % Lymphocytes % Monocytes % Eosinophils % Basophils % Nucleated RBC % PT with INR INR PTT (Actin FS) VBG pH POC VBG pCO2 POC VBG pO2 Mixed VBG HCO3 Sodium Potassium Chloride Carbon Dioxide Anion Gap BUN Creatinine Creat Clearance w eGFR Random Glucose Lactic Acid 1.2 Calcium Magnesium Total Bilirubin AST ALT Alkaline Phosphatase Creatine Kinase Creatine Kinase Index CK-MB (CK-2) Troponin I B-Natriuretic Peptide Total Protein Albumin Influenza A (Rapid) Negative Influenza B (Rapid) Negative ASSESSMENT/PLAN: Patient is a 57 year old male with past medical history of asthma, CAD, HTN, HLD , CKD, NIDDM, nonischemic dilated cardiomyopathy, diastolic CHF, substance abuse (cocaine), presented with worsening productive cough and shortness of breath for 7 days, and left sided chest pain for 1 day. #SOB likely 2/2 asthma/COPD exacerbation -rule out CHF exacerbation, PE -CXR: Slightly increased interstitial markings, no evidence of PNA -Duonebs RQID and q6h PRN -Symbicort IH BID -IV Solu-medrol 40mg q6h -Daily peak flow -Will give IV lasix 40mg daily #Chest pain, rule out ACS -Trop 0.11, EKG showed sinus tachycardia with nonspecific ST-T wave changes on V3-V4 (seen on previous EKG 10/2017) -Will continue to trend trop and EKG -Cardiology (Dr. Singletary) consulted. Recommendations appreciated. -Will start anticoagulation with Lovenox 110mg sq BID -Continue home Hydralazine, Coreg, Procardia, Lipitor #NIDDM -Hold home glipizide 5mg daily -Insulin sliding scale implemented -BGM ACHS -HbA1c #Diastolic CHF -CXR revealed slightly increased interstitial markings -Will treat with IV Lasix 40mg daily for now #Hypertension -Continue [id number] TID, Coreg 25mg BID, Procardia XL 90mg daily #Hyperlipidemia -Continue Atorvastatin 40mg PO HS CKD: chronic -BUN/Cr 17/1.3 -baseline Cr 1.3 -will continue to monitor #FEN -Not on any standing fluids -Electrolytes wnl, routine bmp monitoring -Diabetic/Sodium restricted diet #Prophylaxis -On Lovenox 110mg sq BID #Disposition -full code -admit to tele Visit type - Emergency Visit Emergency Visit: Yes ED Registration Date: 04/12/18 Care time: The patient presented to the Emergency Department on the above date and was hospitalized for further evaluation of their emergent condition. - New Patient This patient is new to me today: Yes Date on this admission: 04/13/18 - Critical Care Critical Care patient: No
[2018-04-12 21:14] LABS: URINE APPEARANCE SLCLOUDY; URINE BILIRUBIN NEGATIVE (<2.0 mg/dL); URINE COLOR YELLOW; URINE GLUCOSE (UA) 3+ (NEGATIVE); URINE KETONE NEGATIVE (NEGATIVE); URINE LEUK ESTERASE NEGATIVE (NEGATIVE); URINE NITRITE NEGATIVE (NEGATIVE); URINE PROTEIN 2+ (NEGATIVE)
[2018-04-12 21:25] LABS: EPI CELLS RARE /HPF (FEW); URINE MUCUS RARE
[2018-04-12] MEDS ORDERED: methylPREDNISolone NA SUCC 40 MG/1 ML VIAL ONE (22:32)
[2018-04-12] MEDS ORDERED: hydrALAZINE HCL 25 MG TABLET (FP) ONE (22:32)
[2018-04-12] MEDS ORDERED: ATORVASTATIN CA 40 MG TABLET (FP) ONE (22:32)
[2018-04-12] MEDS ORDERED: guaiFENesin 200 MG/10 ML 10 ML UNIT-DOSE CUPS PO ONE (22:34)
[2018-04-12] MEDS: methylPREDNISolone NA SUCC 40 MG/1 ML VIAL IVPUSH SCH (22:46)
[2018-04-12] MEDS: CARVEDILOL 25 MG TABLET (FP) PO SCH (22:47)
[2018-04-12] MEDS: hydrALAZINE HCL 50 MG TABLET (FP) PO SCH (22:47)
[2018-04-12] MEDS: ATORVASTATIN CA 40 MG TABLET (FP) PO SCH (22:47)
[2018-04-12] MEDS ORDERED: INSULIN (NOVOLOG) ASPART 100 UNITS/ML 10ML VIAL ONE (22:52)
[2018-04-12] MEDS ORDERED: guaiFENesin 200 MG/10 ML 10 ML UNIT-DOSE CUPS ONE (22:52)
[2018-04-12] MEDS: ALBUTEROL SO4 2.5/IPRATROPIUM 0.5 INH SOL 3 ML VIAL.NEB. NEB PRN (23:00)
[2018-04-12] MEDS: INSULIN SLIDING SCALE (NOVOLOG) 1 VIAL SQ SCH (23:01)
[2018-04-12] MEDS: BUDESONIDE/FORMETEROL FUMARATE 80/4.5 mcg INHALER IH SCH (23:02)
[2018-04-13] MEDS ORDERED: methylPREDNISolone NA SUCC 40 MG/1 ML VIAL ONE ×2 (03:16→15:27)
[2018-04-13] MEDS: methylPREDNISolone NA SUCC 40 MG/1 ML VIAL IVPUSH SCH ×4 (03:25→20:47)
[2018-04-13] MEDS ORDERED: ALBUTEROL SO4 2.5/IPRATROPIUM 0.5 INH SOL 3 ML VIAL.NEB. NEB ONE ×2 (05:55→15:10)
[2018-04-13 06:35] LABS: BASO % 0.3 % (0-2.0); EOS % 0.1 % (0-4.5); HEMATOCRIT 37.3 % (35.4-49); HEMOGLOBIN 12.3 GM/dL (11.7-16.9); LYMPH % 3.4 % (8-40); MCH 31.1 pg (25.7-33.7); MCHC 33.1 g/dl (32.0-35.9); MEAN CELL VOLUME 94.2 fl (80-96); MEAN PLT VOLUME 7.9 fl (7.5-11.1); MONO % 1.4 % (3.8-10.2); NEUT % 94.8 % (42.8-82.8); PLATELET COUNT 375 K/MM3 (134-434); RBC 3.96 M/mm3 (4.00-5.60); RDW 14.4 % (11.9-15.9)
[2018-04-13] MEDS: hydrALAZINE HCL 50 MG TABLET (FP) PO SCH ×3 (06:54→21:30)
[2018-04-13] MEDS ORDERED: INSULIN (NOVOLOG) ASPART 100 UNITS/ML 10ML VIAL ONE ×3 (06:57→17:45)
[2018-04-13] MEDS: INSULIN SLIDING SCALE (NOVOLOG) 1 VIAL SQ SCH ×4 (07:01→21:31)
[2018-04-13 07:15] LABS: ALBUMIN 3.3 g/dl (3.4-5.0); ALK PHOS 220 U/L (45-117); ANION GAP 11 MMOL/L (8-16); BILIRUBIN,TOTAL 0.4 mg/dL (0.2-1); BLOOD UREA NITROGEN 24 mg/dL (7-18); CALCIUM 8.7 mg/dL (8.5-10.1); CHLORIDE 97 mmol/L (98-107); CO2 21 mmol/L (21-32); CREATININE 1.6 mg/dL (0.55-1.3); PHOSPHOROUS 3.4 mg/dL (2.5-4.9); POTASSIUM 5.2 mmol/L (3.5-5.1); SGOT/AST 29 U/L (15-37); SGPT/ALT 41 U/L (13-61); SODIUM 129 mmol/L (136-145)
[2018-04-13 07:32] LABS: GLUCOSE,RANDOM 451 mg/dL (74-106)
--- NOTE | 2018-04-13 08:09 | EKG ---
Test Reason : Blood Pressure : / mmHG Vent. Rate : 111 BPM Atrial Rate : 111 BPM P-R Int : 162 ms QRS Dur : 110 ms QT Int : 350 ms P-R-T Axes : 059 031 085 degrees QTc Int : 476 ms SINUS TACHYCARDIA POSSIBLE LEFT ATRIAL ENLARGEMENT NONSPECIFIC T WAVE ABNORMALITY ABNORMAL ECG WHEN COMPARED WITH ECG OF 26-OCT-2017 17:04, T WAVE INVERSION NOW EVIDENT IN LATERAL LEADS Confirmed by MD SILVESTRE, KARTIK ([id number]) on 04/13/2018 8:08:51 AM Referred By: Confirmed By:KARTIK RIVERS MD
[2018-04-13] MEDS: ALBUTEROL SO4 2.5/IPRATROPIUM 0.5 INH SOL 3 ML VIAL.NEB. NEB SCH ×4 (08:21→21:10)
[2018-04-13] MEDS: INSULIN (LEVEMIR) 100 UNITS/ML UNITS SQ SCH ×2 (08:21→21:30)
[2018-04-13] MEDS ORDERED: ENOXAPARIN NA (PORCINE) 120 MG/0.8 ML DISP.SYRIN SQ SCH (10:00)
[2018-04-13] MEDS ORDERED: FUROSEMIDE 40 MG/4 ML INJECTABLE VIAL IVPUSH SCH (10:00)
[2018-04-13] MEDS: CARVEDILOL 25 MG TABLET (FP) PO SCH ×2 (10:21→21:30)
[2018-04-13] MEDS: NIFEdipine E.R. 90 MG TABLET (FP) PO SCH (10:21)
[2018-04-13] MEDS: BUDESONIDE/FORMETEROL FUMARATE 80/4.5 mcg INHALER IH SCH (10:26)
[2018-04-13] MEDS ORDERED: INSULIN (LEVEMIR) 100 UNITS/ML UNITS SQ ONE ×2 (11:49→13:09)
--- NOTE | 2018-04-13 11:52 | EKG ---
Test Reason : Blood Pressure : / mmHG Vent. Rate : 090 BPM Atrial Rate : 090 BPM P-R Int : 174 ms QRS Dur : 110 ms QT Int : 406 ms P-R-T Axes : 060 029 086 degrees QTc Int : 496 ms NORMAL SINUS RHYTHM POSSIBLE LEFT ATRIAL ENLARGEMENT NONSPECIFIC T WAVE ABNORMALITY PROLONGED QT ABNORMAL ECG WHEN COMPARED WITH ECG OF 12-APR-2018 15:06, NO SIGNIFICANT CHANGE WAS FOUND Confirmed by MD SILVESTRE, KARTIK ([id number]) on 04/13/2018 11:52:23 AM Referred By: Confirmed By:KARTIK RIVERS MD
[2018-04-13 12:13] LABS: PLATELET ESTIMATE NORMAL
--- NOTE | 2018-04-13 13:55 | PN ---
Physical Exam: SUBJECTIVE: Patient seen this morning and reports he is feeling much better, but still has some wheezing. Patient had no acute events overnight. OBJECTIVE: Vital Signs Temperature 97.4 F L 04/13/18 06:34 Pulse Rate 89 04/13/18 11:24 Respiratory Rate 18 04/13/18 11:24 Blood Pressure 163/105 H 04/13/18 11:24 O2 Sat by Pulse Oximetry (%) 99 04/13/18 11:24 GENERAL: The patient is awake, alert, and fully oriented, in no acute distress. HEAD: Normal with no signs of trauma. EYES: PERRL, extraocular movements intact, sclera anicteric, conjunctiva clear. No ptosis. ENT: Ears normal, nares patent, oropharynx clear without exudates, moist mucous membranes. NECK: Trachea midline, full range of motion, supple. LUNGS: Breath sounds equal, clear to auscultation bilaterally, no wheezes, no crackles, no accessory muscle use. HEART: Regular rate and rhythm, S1, S2 without murmur, rub or gallop. ABDOMEN: Soft, nontender, nondistended, normoactive bowel sounds, no guarding, no rebound, no hepatosplenomegaly, no masses. EXTREMITIES: 2+ pulses, warm, well-perfused, no edema. NEUROLOGICAL: Cranial nerves II through XII grossly intact. Normal speech, gait not observed. PSYCH: Normal mood, normal affect. SKIN: Warm, dry, normal turgor, no rashes or lesions noted CBCD WBC 9.0 K/mm3 (4.0-10.0) 04/13/18 06:05 RBC 3.96 M/mm3 (4.00-5.60) L 04/13/18 06:05 Hgb 12.3 GM/dL (11.7-16.9) 04/13/18 06:05 Hct 37.3 % (35.4-49) 04/13/18 06:05 MCV 94.2 fl (80-96) 04/13/18 06:05 MCHC 33.1 g/dl (32.0-35.9) 04/13/18 06:05 RDW 14.4 % (11.9-15.9) 04/13/18 06:05 Plt Count 375 K/MM3 (134-434) 04/13/18 06:05 MPV 7.9 fl (7.5-11.1) 04/13/18 06:05 CMP Sodium 129 mmol/L (136-145) L 04/13/18 06:05 Potassium 5.2 mmol/L (3.5-5.1) H 04/13/18 06:05 Chloride 97 mmol/L (98-107) L 04/13/18 06:05 Carbon Dioxide 21 mmol/L (21-32) 04/13/18 06:05 Anion Gap 11 MMOL/L (8-16) 04/13/18 06:05 BUN 24 mg/dL (7-18) H 04/13/18 06:05 Creatinine 1.6 mg/dL (0.55-1.3) H 04/13/18 06:05 Creat Clearance w eGFR 44.94 (>60) 04/13/18 06:05 Random Glucose 451 mg/dL (74-106) H* 04/13/18 06:05 Calcium 8.7 mg/dL (8.5-10.1) 04/13/18 06:05 Total Bilirubin 0.4 mg/dL (0.2-1) 04/13/18 06:05 AST 29 U/L (15-37) 04/13/18 06:05 ALT 41 U/L (13-61) 04/13/18 06:05 Alkaline Phosphatase 220 U/L (45-117) H 04/13/18 06:05 Total Protein 8.0 g/dl (6.4-8.2) 04/13/18 06:05 Albumin 3.3 g/dl (3.4-5.0) L 04/13/18 06:05 CARDIAC ENZYMES Creatine Kinase 217 U/L (26-308) 04/13/18 06:05 Troponin I 0.39 ng/ml (0.00-0.05) H 04/13/18 11:45 Active Medications Albuterol/Ipratropium (Duoneb -) 1 amp NEB Q6H PRN PRN Reason: SHORTNESS OF BREATH Last Admin: 04/12/18 23:00 Dose: 1 amp Albuterol/Ipratropium (Duoneb -) 1 amp NEB RQID PUSHPA Last Admin: 04/13/18 08:21 Dose: 1 amp Atorvastatin Calcium (Lipitor -) 40 mg PO HS [facility] Last Admin: 04/12/18 22:47 Dose: 40 mg Budesonide/Formoterol Fumarate (Symbicort 80/4.5mcg -) 2 puff IH BID [facility] Last Admin: 04/13/18 10:26 Dose: Not Given Carvedilol (Coreg -) 25 mg PO BID [facility] Last Admin: 04/13/18 10:21 Dose: 25 mg Enoxaparin Sodium (Lovenox -) 40 mg SQ DAILY [facility] Hydralazine HCl (Apresoline -) 100 mg PO TID [facility] Last Admin: 04/13/18 06:54 Dose: 100 mg Insulin Aspart (Novolog Vial Sliding Scale -) 1 vial SQ [facility]; Protocol Last Admin: 04/13/18 11:18 Dose: 10 units Insulin Detemir (Levemir Vial) 10 units SQ BID@0700,2200 [facility] Last Admin: 04/13/18 08:21 Dose: Not Given Methylprednisolone Sodium Succinate (Solu-Medrol -) 40 mg IVPUSH Q6H-IV [facility] Last Admin: 04/13/18 10:20 Dose: 40 mg Nifedipine (Procardia Xl -) 90 mg PO DAILY [facility] Last Admin: 04/13/18 10:21 Dose: 90 mg ASSESSMENT/PLAN: Patient is a 57 y/o male with a history of asthma, CAD, HTN, HLD, CKD, NIDDM, nonischemic dilated cardiomyopathy, diastolic CHF, substance abuse who is admitted for HTN emergency and acute bronchitis. #HTN emergecny - currently uncontrolled - hydralazine 100 mg po TID - carvedilol 25 mg po bid - nifedipine 90 mg po daily - imdur 30 mg po daily - continue to monitor can increase nifedipine - end organ damage; gogo #asthma exacerbation, controlled - symbicort 2 puff BID - Solu-medrol 40 mg IV push q6h - duoneb 1 amp nebs q6h #GOGO, 2/2 to lasix vs CHF - hold furosemide 40 mg po daily - Cr: 1.6, f/u tomorrow #HLD - atorvastatin 40 mg po hs #Chest pressure - last stress test 10/26/17: large inferior, inferolateral and apical infarct. no ischemia. LVEF 29% #preserved EF CHF - f/u echo - 10/27/17 last echo: mild concentric left ventricular hypertrophy, left ventricular ejection fraction is normal, right ventricle is normal in size and function. - f/u Dr. Singletary #tropinemia - likely due to CHF exacerbation - continue to trend #DM - A1C 10.6 % - Levemir 10 units sq today 20 tomorrow #dvt ppx - lovenox 40 mg sq Dispo: monitor clinically Visit type - Emergency Visit Emergency Visit: Yes ED Registration Date: 04/12/18 Care time: The patient presented to the Emergency Department on the above date and was hospitalized for further evaluation of their emergent condition. - New Patient This patient is new to me today: Yes Date on this admission: 04/13/18 - Critical Care Critical Care patient: No
--- NOTE | 2018-04-13 14:15 | CON.CARD ---
Consult Consult Specialty:: Cardiology Referred by:: Hospitalist Reason for Consultation:: Cardiac evaluation - History of Present Illness Chief Complaint: Chest pain, shortness of breath and productive cough History of Present Illness: Patient is a 57 year old male with underlying history of bronchial asthma, CAD s /p PCI/stent, OK, ACS, NIDDM, non-ischemic dilated cardiomyopathy with history of congestive heart failure, systolic/diastolic LV dysfuntion and substance abuse (Cocaine) in the past who presents with left sided chest pain, productive cough and shortness breath on exertion. He states productive cough for past 1 week. Chest pain is sharp and stabbing in character and it radiates to left arm. He denies palpitations. He denies paroxysmal nocturnal dyspnea or orthopnea. He denies fever or chills. He denies nausea, vomiting, diarrhea or abdominal pain at this time but states mild nausea earlier. He denies headache or lightheadedness. Nuclear MPI (Oct 28 2017) revealed large inferior, inferolateral and apical infarct with LVEF of 29%. Echocardiography (10/27/17) was reported normal LV systolic function. Despite this discrepancy, patient was continued on medical therapy in view of absence of ischemic symptoms - History Source History Provided By: Patient, Medical Record Limitations to Obtaining History: No Limitations - Past Medical History Cardio/Vascular: Yes: CAD (S/P PCI), HTN, Hyperlipdemia, OK, Other (dilated cardiomyopathy (nonischemic), LV systolic dysfunction, ) Pulmonary: Yes: Asthma Gastrointestinal: Yes: GERD Renal/: Yes: Renal Inusuff Musculoskeletal: Yes: Chronic low back pain Additional Medical History: Rightt achilles tendon tear. Rightt testicular torsion. Angioedema due to ACEI - Alcohol/Substance Use Hx Alcohol Use: Yes (beer) Number of Drinks Daily: 3 (beer) History of Substance Use: reports: Cocaine - Smoking History Smoking history: Current some day smoker Have you smoked in the past 12 months: Yes Aproximately how many cigarettes per day: 3 - Social History ADL: Independent Occupation: Employed History of Recent Travel: No Home Medications - Allergies Allergies/Adverse Reactions: Allergies Allergy/AdvReac Type Severity Reaction Status Date / Time IRMA Inhibitors Allergy Verified 04/12/18 15:11 - Home Medications Home Medications: Ambulatory Orders Aspirin 81 mg PO DAILY 05/10/17 Atorvastatin Ca [Lipitor] 40 mg PO HS 05/10/17 Ergocalciferol [Vitamin D2] 50,000 unit PO FR 05/10/17 Furosemide [Lasix -] 40 mg PO DAILY 05/10/17 Glipizide 5 mg PO BID 05/10/17 Hydralazine HCl 100 mg PO TID 05/10/17 Isosorbide Mononitrate [Imdur -] 30 mg PO DAILY 05/10/17 Nifedipine ER [Procardia XL -] 90 mg PO DAILY #30 tab.er.24 05/13/17 Carvedilol [Coreg -] 25 mg PO BID #60 tablet 10/30/17 Family Disease History - Family Disease History Family Disease History: Diabetes: Sister, Other: Brother (DRUGS) Review of Systems - Review of Systems Constitutional: reports: Chills. denies: Fever Cardiovascular: reports: Chest Pain, Shortness of Breath. denies: Palpitations Respiratory: reports: Cough, SOB, SOB on Exertion. denies: Hemoptysis, Orthopnea, PND Gastrointestinal: reports: Nausea. denies: Abdominal Pain, Constipation, Diarrhea, Melena, Rectal Bleeding, Vomiting Genitourinary: denies: Dysuria, Hematuria Musculoskeletal: denies: Joint Pain Neurological: denies: Dizziness, Headache, Seizure, Syncope Vital Signs: Vital Signs Temperature 97.4 F L 04/13/18 06:34 Pulse Rate 89 04/13/18 11:24 Respiratory Rate 18 04/13/18 11:24 Blood Pressure 163/105 H 04/13/18 11:24 O2 Sat by Pulse Oximetry (%) 99 04/13/18 11:24 HENT: Yes: Atraumatic Neck: Yes: Supple Respiratory: Yes: Diminished Gastrointestinal: Yes: Normal Bowel Sounds, Soft. No: Tenderness Cardiovascular: Yes: Regular Rate and Rhythm JVD: No PMI: Non-Displaced Heart Sounds: Yes: S1, S2 Edema: No - Other Data Labs, Other Data: CBC, BMP 04/13/18 06:05 04/13/18 06:05 INR, PTT INR 1.06 (0.83-1.09) 04/12/18 17:00 Troponin, BNP 04/12/18 04/12/18 04/13/18 17:00 22:25 06:05 Troponin I 0.11 H 0.13 H 0.20 H B-Natriuretic Peptide No Result Required. 04/13/18 11:45 Troponin I 0.39 H B-Natriuretic Peptide NSR with nonspecific T abnormality Echo: Report Reviewed (Normal LV systolic function. trace TR, mild MR, mild AR, grade 2 diastolic dysfunction) Problem List - Problems (1) Chest pain Code(s): R07.9 - CHEST PAIN, UNSPECIFIED Qualifiers: (2) Abnormal EKG Code(s): R94.31 - ABNORMAL ELECTROCARDIOGRAM [ECG] [EKG] (3) Smerd-wd-gmjzezl kidney injury Code(s): N17.9 - ACUTE KIDNEY FAILURE, UNSPECIFIED; N18.9 - CHRONIC KIDNEY DISEASE, UNSPECIFIED Qualifiers: Chronic kidney disease stage: stage 3 (moderate) (4) Cocaine abuse Code(s): F14.10 - COCAINE ABUSE, UNCOMPLICATED (5) Shortness of breath Code(s): R06.02 - SHORTNESS OF BREATH (6) Acute on chronic diastolic (congestive) heart failure Code(s): I50.33 - ACUTE ON CHRONIC DIASTOLIC (CONGESTIVE) HEART FAILURE (7) CAD (coronary artery disease) Code(s): I25.10 - ATHSCL HEART DISEASE OF [place] CORONARY ARTERY W/O ANG PCTRS Qualifiers: Coronary Disease-Associated Artery/Lesion type: cahto artery [place] vs. transplanted heart: cahto heart Associated angina: without angina Qualified Code(s): I25.10 - Atherosclerotic heart disease of [place] coronary artery without angina pectoris (8) CKD (chronic kidney disease) stage 3, GFR 30-59 ml/min Code(s): N18.3 - CHRONIC KIDNEY DISEASE, STAGE 3 (MODERATE) (9) Diastolic dysfunction without heart failure Code(s): I51.9 - HEART DISEASE, UNSPECIFIED (10) HTN (hypertension) Code(s): I10 - ESSENTIAL (PRIMARY) HYPERTENSION Qualifiers: Hypertension type: essential hypertension Qualified Code(s): I10 - Essential (primary) hypertension (11) Hyperlipidemia Code(s): E78.5 - HYPERLIPIDEMIA, UNSPECIFIED Qualifiers: Hyperlipidemia type: pure hypercholesterolemia Qualified Code(s): E78.00 - Pure hypercholesterolemia, unspecified Assessment/Plan 1. Clinical presentation suggests demand ischemia with underlying CAD and history of PCI/stent 2. URI vs. COPD exacerbation 3. HTN 4. Hypercholesterolemia 5. DM 6. CKD 7. History of LV systolic/diastolic heart failure 8. Substance abuse (Cocaine) PLAN: 1. Echocardiography report noted with normal LV systolic function. There is a discrepancy nuclear MPI done in October 2017 2. Continue Carvedilol, Hydralazine and Procardia XL 3. Statin therapy 4. Add ASA 5. Diuretics 6. Lovenox was given 7. Trend troponin 8. Further cardiac work up will be decided Nicholas Singletary MD
--- NOTE | 2018-04-13 14:34 | PN ---
Teaching Attending Note Name of Resident: Faby Sidhu ATTENDING PHYSICIAN STATEMENT I saw and evaluated the patient. I reviewed the resident's note and discussed the case with the resident. I agree with the resident's findings and plan as documented. SUBJECTIVE:asymptomatic. states pain came due to sudden onset of chest tightness. states he been having productive cough for the past week assoc iwth dyspnea on exertion. has been using rescue inhaler frequently during this time. denies fever, chills, N/V/C/D. states there are other family members with similar symptoms. claims medicaition compliance however was not taking symbicort only his rescue inhaler. OBJECTIVE: Last Vital Signs Temp Pulse Resp BP Pulse Ox 97.4 F L 89 18 163/105 H 99 04/13/18 06:34 04/13/18 11:24 04/13/18 11:24 04/13/18 11:24 04/13/18 11:24 General NAD CV S1 S2 RRR no murmur/rub/gallop Lungs diffuse wheezing, +rhonchi Extremities pedal edema ASSESSMENT AND PLAN: 57yo M with PMH HTN, CAD, systolic CHF, CKD, DM, COPD and remote polysubstance abuse presented to the ER wtih CP and dyspnea and found to have elevated troponin wioth HTN urgency 1. NSTEMI- likely demand from HTN urgency. flat trend to troponins. started on full dose lovenox and asa loaded in the ER. echo ordered. cardio onboard. NMST done 10/28/17 showed fixed defect with no active ischemia. pt has not followed up with cardio since then. f/u echo for new WMA 2. HTN urgency- re-started home medications with improvement. claims med compliance. if remains elevated will titrate to maximize control 3. ACute COPD exacerbation- started on steroids. will cont at this time with plan to quickly de-escalate. appears pt was not using inhaler appropriately. cont steroids, nebs and inhalers 4. Acute on CKD- baseline Cr 1.3. possible medication induced from lasix IV given. will hold at this time 5. Hyperglycemia- A1c 10.6. counselled patient on need for insulin going forward. hesitant on using insulin at home. educated on risks assoc with persistent hypergylcemia. will have RN teaching on how to self inject and re- discuss options. informed him oral medications will not be optimal at this time. start levemir 10 units and titrate to optimize control 6. pseudohyponatremia- corrected Na 135 7. Systolic CHF- does not appear to be volume overloaded at this time. will d/c lasix iv and re-start home dose 8. remote polysubstance abuse- denies ETOH and cocaine use 9. DVT ppx- full dose lovenox
[2018-04-13] MEDS ORDERED: hydrALAZINE HCL 25 MG TABLET (FP) ONE (15:27)
--- NOTE | 2018-04-13 16:39 | ECHO ---
Name: KEMAL GAN Exam:Adult Echocardiogram Study Date: 04/13/2018 02:14 PM Age: 57 yrs Reason For Study: NSTEMI Height: 71 in Weight: 236 lb BSA: 2.3 m2 MMode/2D Measurements & Calculations IVSd: 1.2 cm Ao root diam: 3.0 cm LVIDd: 5.2 cm LA dimension: 5.1 cm LVIDs: 4.0 cm LVPWd: 1.1 cm EDV(Teich): 128.4 ml LVOT diam: 2.2 cm ESV(Teich): 71.6 ml Doppler Measurements & Calculations MV E max kevin: 102.0 cm/sec Ao V2 max: 157.1 cm/sec MV A max kevin: 36.9 cm/sec Ao max P.9 mmHg MV E/A: 2.8 Ao V2 mean: 124.2 cm/sec MV dec time: 0.13 sec Ao mean P.8 mmHg Ao V2 VTI: 29.3 cm MONIKA(I,D): 1.7 cm2 AI P1/2t: 713.2 msec MONIKA(V,D): 2.1 cm2 AI max kevin: 259.0 cm/sec LV V1 max P.7 mmHg AI max P.8 mmHg LV V1 mean P.5 mmHg AI dec slope: 106.3 cm/sec2 LV V1 max: 82.6 cm/sec LV V1 mean: 57.2 cm/sec LV V1 VTI: 12.5 cm MR max kevin: 392.0 cm/sec SV(LVOT): 48.7 ml MR max P.4 mmHg TR max kevin: 204.6 cm/sec Med Peak E' Kevin: 3.5 cm/sec TR max P.8 mmHg Med E/e': 29.2 Lat Peak E' Kevin: 6.5 cm/sec Lat E/e': 15.7 Procedure A two-dimensional transthoracic echocardiogram with color flow and Doppler was performed. The patient was in normal sinus rhythm during the exam. Left Ventricle The left ventricle is normal in size. There is mild concentric left ventricular hypertrophy. Left debra tricular systolic function is normal. Ejection Fraction = 55%. Diastolic dysfunction, Grade II, consistent wit h elevated left atrial pressure. Right Ventricle The right ventricle is normal in size and function. Atria The left atrium is moderately dilated. Right atrial size is normal. Mitral Valve The mitral valve is grossly normal. There is mild mitral regurgitation. Tricuspid Valve The tricuspid valve is not well visualized, but is grossly normal. There is trace tricuspid regurgita tion. There was insufficient TR detected to calculate RV systolic pressure. Aortic Valve The aortic valve opens well. The aortic valve is trileaflet. There is moderate aortic sclerosis.;. No hemodynamically significant valvular aortic stenosis. Mild aortic regurgitation. Pulmonic Valve The pulmonic valve is not well visualized. Great Vessels The aortic root is normal size. Pericardium/Pleura There is no pericardial effusion. Interpretation Summary The left ventricle is normal in size. There is mild concentric left ventricular hypertrophy. Left ventricular systolic function is normal. Diastolic dysfunction, Grade II, consistent with elevated left atrial pressure. The left atrium is moderately dilated. There is trace tricuspid regurgitation. There is mild mitral regurgitation. There is moderate aortic sclerosis.; No hemodynamically significant valvular aortic stenosis. Mild aortic regurgitation. There was insufficient TR detected to calculate RV systolic pressure. MD Michael Chen 04/13/2018 04:38 PM
[2018-04-13] MEDS: ATORVASTATIN CA 40 MG TABLET (FP) PO SCH (21:31)
[2018-04-14] MEDS: BUDESONIDE/FORMETEROL FUMARATE 80/4.5 mcg INHALER IH SCH ×3 (01:14→21:57)
[2018-04-14] MEDS ORDERED: PT OWN MED DRAWER 7, Y5N ONE ×2 (01:16→09:39)
[2018-04-14] MEDS: methylPREDNISolone NA SUCC 40 MG/1 ML VIAL IVPUSH SCH ×4 (02:01→21:59)
[2018-04-14] MEDS: ALBUTEROL SO4 2.5/IPRATROPIUM 0.5 INH SOL 3 ML VIAL.NEB. NEB PRN ×4 (04:08→21:09)
[2018-04-14] MEDS: hydrALAZINE HCL 50 MG TABLET (FP) PO SCH ×3 (05:41→21:56)
[2018-04-14] MEDS: INSULIN (LEVEMIR) 100 UNITS/ML UNITS SQ SCH (06:08)
[2018-04-14] MEDS: INSULIN SLIDING SCALE (NOVOLOG) 1 VIAL SQ SCH ×4 (06:08→23:08)
[2018-04-14 07:22] LABS: HEMATOCRIT 34.8 % (35.4-49); HEMOGLOBIN 11.4 GM/dL (11.7-16.9); MCH 30.7 pg (25.7-33.7); MCHC 32.7 g/dl (32.0-35.9); MEAN CELL VOLUME 93.9 fl (80-96); MEAN PLT VOLUME 8.2 fl (7.5-11.1); PLATELET COUNT 374 K/MM3 (134-434); RBC 3.71 M/mm3 (4.00-5.60); RDW 14.4 % (11.9-15.9); WHITE BLOOD COUNT 12.3 K/mm3 (4.0-10.0)
[2018-04-14] MEDS: ALBUTEROL SO4 2.5/IPRATROPIUM 0.5 INH SOL 3 ML VIAL.NEB. NEB SCH (07:31)
[2018-04-14 07:57] VITALS: BMI 36.8
[2018-04-14 08:00] LABS: ALBUMIN 3.1 g/dl (3.4-5.0); ALK PHOS 168 U/L (45-117); ANION GAP 9 MMOL/L (8-16); BILIRUBIN,TOTAL 0.4 mg/dL (0.2-1); BLOOD UREA NITROGEN 28 mg/dL (7-18); CHLORIDE 97 mmol/L (98-107); CO2 24 mmol/L (21-32); CREATININE 1.6 mg/dL (0.55-1.3); POTASSIUM 5.2 mmol/L (3.5-5.1); SGOT/AST 15 U/L (15-37); SGPT/ALT 33 U/L (13-61); SODIUM 129 mmol/L (136-145); TOT PROT 7.4 g/dl (6.4-8.2)
[2018-04-14 08:04] LABS: GLUCOSE,RANDOM 416 mg/dL (74-106)
[2018-04-14] MEDS ORDERED: INSULIN (LEVEMIR) 100 UNITS/ML UNITS SQ ONE (08:15)
--- NOTE | 2018-04-14 08:54 | PN ---
Physical Exam: SUBJECTIVE: Patient examined and notes he still has wheezing. He feels as if his legs are more swollen. Patient denies any other complaints, no events overnight. OBJECTIVE: Vital Signs Temperature 98.0 F 04/14/18 07:49 Pulse Rate 82 04/14/18 07:49 Respiratory Rate 18 04/14/18 07:49 Blood Pressure 157/102 H 04/14/18 07:49 O2 Sat by Pulse Oximetry (%) 99 04/14/18 07:41 GENERAL: The patient is awake, alert, and fully oriented, in no acute distress. HEAD: Normal with no signs of trauma. EYES: PERRL, extraocular movements intact, NECK: Trachea midline, full range of motion, supple. LUNGS: diffuse crackles, with rhonci HEART: Regular rate and rhythm, S1, S2 ABDOMEN: Soft, nontender, nondistended, EXTREMITIES:2+ pitting edema SKIN: Warm, dry, normal turgor, no rashes or lesions noted CBC, BMP 04/14/18 05:30 04/14/18 05:30 Active Medications Albuterol/Ipratropium (Duoneb -) 1 amp NEB Q6H PRN PRN Reason: SHORTNESS OF BREATH Last Admin: 04/14/18 04:08 Dose: 1 amp Albuterol/Ipratropium (Duoneb -) 1 amp NEB RQID [facility] Last Admin: 04/14/18 07:31 Dose: 1 amp Aspirin (Asa -) 81 mg PO DAILY [facility] Atorvastatin Calcium (Lipitor -) 40 mg PO HS [facility] Last Admin: 04/13/18 21:31 Dose: 40 mg Budesonide/Formoterol Fumarate (Symbicort 80/4.5mcg -) 2 puff IH BID [facility] Last Admin: 04/14/18 01:14 Dose: 2 puff Carvedilol (Coreg -) 25 mg PO BID [facility] Last Admin: 04/13/18 21:30 Dose: 25 mg Enoxaparin Sodium (Lovenox -) 40 mg SQ DAILY [facility] Furosemide (Lasix -) 40 mg PO DAILY [facility] Hydralazine HCl (Apresoline -) 100 mg PO TID [facility] Last Admin: 04/14/18 05:41 Dose: 100 mg Insulin Aspart (Novolog Vial Sliding Scale -) 1 vial SQ ACHS [facility]; Protocol Last Admin: 04/14/18 06:08 Dose: 10 units Insulin Detemir (Levemir Vial) 20 units SQ 0700 [facility] Methylprednisolone Sodium Succinate (Solu-Medrol -) 40 mg IVPUSH Q6H-IV [facility] Last Admin: 04/14/18 02:01 Dose: 40 mg Nifedipine (Procardia Xl -) 90 mg PO DAILY [facility] Last Admin: 04/13/18 10:21 Dose: 90 mg ASSESSMENT/PLAN: Patient is a 57 y/o male with a history of asthma, CAD, HTN, HLD, CKD, NIDDM, nonischemic dilated cardiomyopathy, diastolic CHF, substance abuse who is admitted for HTN emergency and acute bronchitis. #HTN emergecny - currently uncontrolled - hydralazine 100 mg po TID - carvedilol 25 mg po bid - nifedipine 90 mg po daily - imdur 30 mg po daily - continue to monitor can increase nifedipine - end organ damage; gogo #asthma exacerbation, controlled - symbicort 2 puff BID - Solu-medrol 40 mg IV push q12h - duoneb 1 amp nebs q6h prn - robitussin as needed #GOGO, 2/2 to lasix vs CHF - hold furosemide 40 mg po daily - Cr: 1.6, f/u #HLD - atorvastatin 40 mg po hs - aspirin 81 mg #Chest pressure - last stress test 10/26/17: large inferior, inferolateral and apical infarct. no ischemia. LVEF 29% - likely needs stress test once medically optimized #preserved EF CHF - echo: LV normal size, mild concentric left ventricular hypertrophy, systolic function normal, diastolic dysfunction grade II, moderate - 10/27/17 last echo: mild concentric left ventricular hypertrophy, left ventricular ejection fraction is normal, right ventricle is normal in size and function. - Dr. Singletary: continue management #tropinemia, resolved - likely due to cardiogenic stress #DM - A1C 10.6 % - Levemir 20 units sq #dvt ppx - lovenox 40 mg sq FEN - dietary consult Dispo: monitor clinically Visit type - Emergency Visit Emergency Visit: No - New Patient This patient is new to me today: No - Critical Care Critical Care patient: No
[2018-04-14] MEDS: ENOXAPARIN NA (PORCINE) 40 MG/0.4 ML DISP.SYRIN SQ SCH (09:57)
[2018-04-14] MEDS: NIFEdipine E.R. 90 MG TABLET (FP) PO SCH (09:59)
[2018-04-14] MEDS: CARVEDILOL 25 MG TABLET (FP) PO SCH ×2 (09:59→21:57)
[2018-04-14] MEDS: ASPIRIN 81 MG CHEWABLE TABLETS PO SCH (09:59)
[2018-04-14] MEDS ORDERED: FUROSEMIDE 40 MG TABLET (FP) PO SCH (10:00)
--- NOTE | 2018-04-14 10:47 | PN ---
Teaching Attending Note Name of Resident: Faby Sidhu ATTENDING PHYSICIAN STATEMENT I saw and evaluated the patient. I reviewed the resident's note and discussed the case with the resident. I agree with the resident's findings and plan as documented. SUBJECTIVE:breathing improved. able to walk to solarium prior to becoming dyspnic. cough less productve. denies Cp, fever, chills, N/V/C/D OBJECTIVE: Last Vital Signs Temp Pulse Resp BP Pulse Ox 98.0 F 82 18 157/102 H 99 04/14/18 07:49 04/14/18 07:49 04/14/18 07:49 04/14/18 07:49 04/14/18 07:41 Intake & Output 04/11/18 04/12/18 04/13/18 04/14/18 23:59 23:59 23:59 23:59 Intake Total 300 450 Balance 300 450 Weight 236 lb 236 lb 263 lb 12.8 oz General NAD CV S1 S2 RRR no murmur/rub/gallop Lungs scattered wheezing Extremities trace pedal edema ASSESSMENT AND PLAN: 57yo M with PMH HTN, CAD, systolic CHF, CKD, DM, COPD and remote polysubstance abuse presented to the ER wtih CP and dyspnea and found to have elevated troponin wioth HTN urgency 1. NSTEMI- likely demand from HTN urgency. flat trend to troponins. echo reviewed with no WMA. may benefit from ischemia eval. unclear if inpatient vs outpatient as pt has issues with compliance. will d/w cardio. full dose lovenox d/c. 2. HTN urgency-overall improved however remains above goal. will increase nifedipine. cont other meds. 3. ACute COPD exacerbation-overall improved. reduce medrol to BID, nebs prn. robitussin prn. 4. Acute on CKD- baseline Cr 1.3. possible medication induced from lasix IV given. will hold at this time 5. Hyperglycemia- A1c 10.6. increased levemir to 20units this AM will likley require higher doses. cont to titrate. diabetic teaching, valve pipe irrigator. 6. pseudohyponatremia- corrected Na 135 7. Systolic CHF- does not appear to be volume overloaded at this time. lasix po 8. remote polysubstance abuse- denies ETOH and cocaine use 9. DVT ppx-lovenox
[2018-04-14] MEDS ORDERED: guaiFENesin 200 MG/10 ML 10 ML UNIT-DOSE CUPS PO PRN (10:51)
--- NOTE | 2018-04-14 13:20 | PN ---
Progress Note, Physician History of Present Illness: Cough, dyspnea and wheeze improving with treatment. - Current Medication List Current Medications: Active Medications Albuterol/Ipratropium (Duoneb -) 1 amp NEB Q6H PRN PRN Reason: SHORTNESS OF BREATH Last Admin: 04/14/18 11:04 Dose: 1 amp Aspirin (Asa -) 81 mg PO DAILY [facility] Last Admin: 04/14/18 09:59 Dose: 81 mg Atorvastatin Calcium (Lipitor -) 40 mg PO HS [facility] Last Admin: 04/13/18 21:31 Dose: 40 mg Budesonide/Formoterol Fumarate (Symbicort 80/4.5mcg -) 2 puff IH BID [facility] Last Admin: 04/14/18 10:00 Dose: 2 puff Carvedilol (Coreg -) 25 mg PO BID [facility] Last Admin: 04/14/18 09:59 Dose: 25 mg Enoxaparin Sodium (Lovenox -) 40 mg SQ DAILY [facility] Last Admin: 04/14/18 09:57 Dose: 40 mg Furosemide (Lasix -) 40 mg PO DAILY [facility] Last Admin: 04/14/18 09:59 Dose: 40 mg Guaifenesin (Robitussin -) 10 ml PO Q8H PRN PRN Reason: COUGH Hydralazine HCl (Apresoline -) 100 mg PO TID [facility] Last Admin: 04/14/18 13:12 Dose: 100 mg Insulin Aspart (Novolog Vial Sliding Scale -) 1 vial SQ ACHS [facility]; Protocol Last Admin: 04/14/18 11:39 Dose: 10 units Insulin Detemir (Levemir Vial) 20 units SQ 0700 [facility] Methylprednisolone Sodium Succinate (Solu-Medrol -) 40 mg IVPUSH Q12H [facility] Last Admin: 04/14/18 13:13 Dose: Not Given Nifedipine (Procardia Xl -) 90 mg PO DAILY [facility] Last Admin: 04/14/18 09:59 Dose: 90 mg - Objective Vital Signs: Vital Signs Temperature 97.9 F 04/14/18 12:10 Pulse Rate 84 04/14/18 12:10 Respiratory Rate 18 04/14/18 12:10 Blood Pressure 156/99 04/14/18 12:10 O2 Sat by Pulse Oximetry (%) 97 04/14/18 11:55 Constitutional: Yes: No Distress, Calm Neck: Yes: Supple Cardiovascular: Yes: Regular Rate and Rhythm Respiratory: Yes: Regular, Cough, Diminished, On Nasal O2, Wheezes Gastrointestinal: Yes: Normal Bowel Sounds, Soft Edema: No Labs: CBC, BMP 04/14/18 05:30 04/14/18 05:30 INR, PTT INR 1.06 (0.83-1.09) 04/12/18 17:00 - ....Imaging EKG: Report Reviewed (Tele: NSR) Problem List - Problems (1) Ryfal-ma-wxbhwrl kidney injury Code(s): N17.9 - ACUTE KIDNEY FAILURE, UNSPECIFIED; N18.9 - CHRONIC KIDNEY DISEASE, UNSPECIFIED Qualifiers: Chronic kidney disease stage: stage 3 (moderate) (2) Hypertensive urgency Code(s): I16.0 - HYPERTENSIVE URGENCY (3) Shortness of breath Code(s): R06.02 - SHORTNESS OF BREATH (4) History of myocardial infarction Code(s): I25.2 - OLD MYOCARDIAL INFARCTION (5) Hyperlipidemia Code(s): E78.5 - HYPERLIPIDEMIA, UNSPECIFIED Qualifiers: Hyperlipidemia type: pure hypercholesterolemia Qualified Code(s): E78.00 - Pure hypercholesterolemia, unspecified (6) COPD exacerbation Code(s): J44.1 - CHRONIC OBSTRUCTIVE PULMONARY DISEASE W (ACUTE) EXACERBATION (7) Diastolic dysfunction without heart failure Code(s): I51.9 - HEART DISEASE, UNSPECIFIED Assessment/Plan 04/13/2018 Echo: Normal LV size and fxn with mild cLVH, grade II diastolic dysfunction, mod LAE, mild MR, mild AR 10/27/2017 Echo: Mild cLVH, normal RV and LV size and fxn, mild-mod MR, mild AR 10/29/2017 Regadenoson stress: Large inferior, inferolateral and apical infarct without ischemia, LVEF 29% 1. CAD and history of [place], PCI/stent with demand ischemia 2. URI triggered COPD exacerbation 3. HTN 4. Hypercholesterolemia 5. DM not well controlled 10.6% 6. CKD 7. History of LV systolic/diastolic heart failure 8. Substance abuse (Cocaine) 9. History of angioedema due to ACEI PLAN: 1. Echocardiography report noted with normal LV systolic function. There is a discrepancy nuclear MPI done in October 2017 2. Continue Carvedilol 25 bid, Hydralazine 100 tid, ASA 81 qd, Lipitor 40 qhs, Lasix 40 qd and Procardia XL 90 qd 3. DVT prophylaxis with Lovenox 4. Troponins are downtrending 5. BD, IV steroid taper, O2 as needed, d/c telemetry
[2018-04-14] MEDS: ATORVASTATIN CA 40 MG TABLET (FP) PO SCH (21:55)
[2018-04-15] MEDS: ALBUTEROL SO4 2.5/IPRATROPIUM 0.5 INH SOL 3 ML VIAL.NEB. NEB PRN ×3 (03:44→20:54)
[2018-04-15] MEDS ORDERED: PT OWN MED DRAWER 7, Y5N ONE (06:38)
[2018-04-15] MEDS: hydrALAZINE HCL 50 MG TABLET (FP) PO SCH ×3 (06:40→22:27)
[2018-04-15] MEDS: INSULIN SLIDING SCALE (NOVOLOG) 1 VIAL SQ SCH ×4 (06:42→22:43)
[2018-04-15] MEDS ORDERED: INSULIN (LEVEMIR) 100 UNITS/ML UNITS SQ SCH (07:00)
[2018-04-15 07:17] LABS: HEMATOCRIT 36.3 % (35.4-49); HEMOGLOBIN 11.7 GM/dL (11.7-16.9); MCH 30.5 pg (25.7-33.7); MCHC 32.4 g/dl (32.0-35.9); MEAN CELL VOLUME 94.1 fl (80-96); MEAN PLT VOLUME 8.2 fl (7.5-11.1); PLATELET COUNT 399 K/MM3 (134-434); RBC 3.85 M/mm3 (4.00-5.60); RDW 14.9 % (11.9-15.9); WHITE BLOOD COUNT 13.1 K/mm3 (4.0-10.0)
[2018-04-15 08:01] LABS: ALBUMIN 3.2 g/dl (3.4-5.0); ALK PHOS 163 U/L (45-117); ANION GAP 8 MMOL/L (8-16); BILIRUBIN,TOTAL 0.6 mg/dL (0.2-1); BLOOD UREA NITROGEN 34 mg/dL (7-18); CALCIUM 8.8 mg/dL (8.5-10.1); CHLORIDE 96 mmol/L (98-107); CO2 26 mmol/L (21-32); CREATININE 1.7 mg/dL (0.55-1.3); POTASSIUM 5.6 mmol/L (3.5-5.1); SGOT/AST 36 U/L (15-37); SGPT/ALT 54 U/L (13-61); SODIUM 130 mmol/L (136-145); TOT PROT 7.3 g/dl (6.4-8.2)
[2018-04-15 08:15] LABS: GLUCOSE,RANDOM 382 mg/dL (74-106)
[2018-04-15] MEDS ORDERED: SODIUM POLYSTYRENE SULFONATE 15 GM/60 ML BOTTLE PO ONE (08:30)
[2018-04-15] MEDS ORDERED: INSULIN (LEVEMIR) 100 UNITS/ML UNITS SQ ONE (09:00)
--- NOTE | 2018-04-15 09:35 | PN ---
Progress Note, Physician History of Present Illness: Cough, dyspnea and wheeze improving with treatment. OOB in chair. - Current Medication List Current Medications: Active Medications Albuterol/Ipratropium (Duoneb -) 1 amp NEB Q6H PRN PRN Reason: SHORTNESS OF BREATH Last Admin: 04/15/18 08:30 Dose: 1 amp Aspirin (Asa -) 81 mg PO DAILY [facility] Last Admin: 04/14/18 09:59 Dose: 81 mg Atorvastatin Calcium (Lipitor -) 40 mg PO HS [facility] Last Admin: 04/14/18 21:55 Dose: 40 mg Budesonide/Formoterol Fumarate (Symbicort 80/4.5mcg -) 2 puff IH BID [facility] Last Admin: 04/14/18 21:57 Dose: 2 puff Carvedilol (Coreg -) 25 mg PO BID [facility] Last Admin: 04/14/18 21:57 Dose: 25 mg Enoxaparin Sodium (Lovenox -) 40 mg SQ DAILY [facility] Last Admin: 04/14/18 09:57 Dose: 40 mg Guaifenesin (Robitussin -) 10 ml PO Q8H PRN PRN Reason: COUGH Hydralazine HCl (Apresoline -) 100 mg PO TID [facility] Last Admin: 04/15/18 06:40 Dose: 100 mg Insulin Aspart (Novolog Vial Sliding Scale -) 1 vial SQ ACHS [facility]; Protocol Last Admin: 04/15/18 06:42 Dose: 10 units Insulin Detemir (Levemir Vial) 30 units SQ AM [facility] Methylprednisolone Sodium Succinate (Solu-Medrol -) 40 mg IVPUSH BID [facility] Nifedipine (Procardia Xl -) 90 mg PO DAILY [facility] Last Admin: 04/14/18 09:59 Dose: 90 mg - Objective Vital Signs: Vital Signs Temperature 97.3 F L 04/15/18 08:44 Pulse Rate 97 H 04/15/18 08:44 Respiratory Rate 16 04/15/18 08:54 Blood Pressure 160/93 04/15/18 08:44 O2 Sat by Pulse Oximetry (%) 98 04/15/18 08:54 Constitutional: Yes: No Distress, Calm Neck: Yes: Supple Cardiovascular: Yes: Regular Rate and Rhythm Respiratory: Yes: Regular, Diminished, Wheezes Gastrointestinal: Yes: Normal Bowel Sounds, Soft Edema: No Labs: CBC, BMP 04/15/18 06:00 04/15/18 06:00 INR, PTT INR 1.06 (0.83-1.09) 04/12/18 17:00 - ....Imaging EKG: Report Reviewed (Tele: NSR) Problem List - Problems (1) [id number] kidney injury Code(s): N17.9 - ACUTE KIDNEY FAILURE, UNSPECIFIED; N18.9 - CHRONIC KIDNEY DISEASE, UNSPECIFIED Qualifiers: Chronic kidney disease stage: stage 3 (moderate) (2) Hypertensive urgency Code(s): I16.0 - HYPERTENSIVE URGENCY (3) Shortness of breath Code(s): R06.02 - SHORTNESS OF BREATH (4) History of myocardial infarction Code(s): I25.2 - OLD MYOCARDIAL INFARCTION (5) Hyperlipidemia Code(s): E78.5 - HYPERLIPIDEMIA, UNSPECIFIED Qualifiers: Hyperlipidemia type: pure hypercholesterolemia Qualified Code(s): E78.00 - Pure hypercholesterolemia, unspecified (6) COPD exacerbation Code(s): J44.1 - CHRONIC OBSTRUCTIVE PULMONARY DISEASE W (ACUTE) EXACERBATION (7) Diastolic dysfunction without heart failure Code(s): I51.9 - HEART DISEASE, UNSPECIFIED Assessment/Plan 04/13/2018 Echo: Normal LV size and fxn with mild cLVH, grade II diastolic dysfunction, mod LAE, mild MR, mild AR 10/27/2017 Echo: Mild cLVH, normal RV and LV size and fxn, mild-mod MR, mild AR 10/29/2017 Regadenoson stress: Large inferior, inferolateral and apical infarct without ischemia, LVEF 29% 1. CAD and history of CA, PCI/stent with demand ischemia 2. URI triggered COPD exacerbation 3. HTN 4. Hypercholesterolemia 5. DM not well controlled 10.6% 6. Acute on CKD 7. History of LV systolic/diastolic heart failure 8. Substance abuse (Cocaine) 9. History of angioedema due to ACEI PLAN: 1. D/c Lasix and observe for renal recovery and electrolytes 2. Continue Carvedilol 25 bid, Hydralazine 100 tid, ASA 81 qd, Lipitor 40 qhs, and Procardia XL 90 qd 3. DVT prophylaxis with Lovenox 4. Troponins are downtrending 5. BD, IV steroid taper, O2 as needed, d/c telemetry
[2018-04-15] MEDS: NIFEdipine E.R. 90 MG TABLET (FP) PO SCH (09:37)
[2018-04-15] MEDS: ENOXAPARIN NA (PORCINE) 40 MG/0.4 ML DISP.SYRIN SQ SCH (09:37)
[2018-04-15] MEDS: ASPIRIN 81 MG CHEWABLE TABLETS PO SCH (09:37)
[2018-04-15] MEDS: CARVEDILOL 25 MG TABLET (FP) PO SCH ×2 (09:37→22:28)
[2018-04-15] MEDS: BUDESONIDE/FORMETEROL FUMARATE 80/4.5 mcg INHALER IH SCH ×2 (09:42→22:43)
[2018-04-15] MEDS: SODIUM POLYSTYRENE SULFONATE 15 GM/60 ML BOTTLE PO ONE ×2 (09:42→10:18)
[2018-04-15] MEDS ORDERED: methylPREDNISolone NA SUCC 40 MG/1 ML VIAL IVPUSH SCH (10:00)
--- NOTE | 2018-04-15 11:45 | PN ---
Teaching Attending Note Name of Resident: Faby Sidhu ATTENDING PHYSICIAN STATEMENT I saw and evaluated the patient. I reviewed the resident's note and discussed the case with the resident. I agree with the resident's findings and plan as documented. SUBJECTIVE:breathing is the same. feels better with neb treatments. denies Cp, SOB, fever, chills, cough, difficulty urinating OBJECTIVE: Last Vital Signs Temp Pulse Resp BP Pulse Ox 97.3 F L 97 H 16 160/93 98 04/15/18 08:44 04/15/18 08:44 04/15/18 08:54 04/15/18 08:44 04/15/18 08:54 General NAD CV S1 S2 RRR no murmur/rub/gallop Lungs scattered wheezing Extremities trace pedal edema ASSESSMENT AND PLAN: 57yo M with PMH HTN, CAD, systolic CHF, CKD, DM, COPD and remote polysubstance abuse presented to the ER wtih CP and dyspnea and found to have elevated troponin wioth HTN urgency 1. NSTEMI- likely demand from HTN urgency. flat trend to troponins. echo reviewed with no WMA. will need ischemia eval. can be done as outpatient. will need to show compliance. 2. HTN urgency-overall improved. hesitant on adding additional medications due to non compliance. cont meds. 3. ACute COPD exacerbation-overall improved. cont meds at present time, nebs prn. robitussin prn. 4. Acute on CKD- baseline Cr 1.3. possible medication induced from lasix IV given.slowly trending up. check renal u/s. has enlarged prostate on previous imaging. hold lasix. 5. hyperkaelmia- liekly due to GOGO. not on medications causing hyperkalemia. give kayexylate. 5. Hyperglycemia- A1c 10.6. increased levemir to 30units this AM will likley require higher doses. cont to titrate. 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 6. pseudohyponatremia- corrected Na 135 7. Systolic CHF- does not appear to be volume overloaded at this time.hold lasix given GOGO 8. remote polysubstance abuse- denies ETOH and cocaine use 9. DVT ppx-lovenox 10. d/c cardiac monitoring
--- NOTE | 2018-04-15 13:54 | PN ---
Physical Exam: SUBJECTIVE: Patient examined this morning and wheezing has improved. Patient denies any other complaints, no events overnight. OBJECTIVE: Vital Signs Temperature 97.3 F L 04/15/18 08:44 Pulse Rate 97 H 04/15/18 08:44 Respiratory Rate 16 04/15/18 08:54 Blood Pressure 160/93 04/15/18 08:44 O2 Sat by Pulse Oximetry (%) 98 04/15/18 08:54 GENERAL: The patient is awake, alert, and fully oriented, in no acute distress. HEAD: Normal with no signs of trauma. EYES: PERRL, extraocular movements intact, NECK: Trachea midline, full range of motion, supple. LUNGS: diffuse crackles, with rhonci HEART: Regular rate and rhythm, S1, S2 ABDOMEN: Soft, nontender, nondistended, EXTREMITIES:2+ pitting edema SKIN: Warm, dry, normal turgor, no rashes or lesions noted CBC, BMP 04/15/18 06:00 04/15/18 06:00 Active Medications Albuterol/Ipratropium (Duoneb -) 1 amp NEB Q6H PRN PRN Reason: SHORTNESS OF BREATH Last Admin: 04/15/18 08:30 Dose: 1 amp Aspirin (Asa -) 81 mg PO DAILY [facility] Last Admin: 04/15/18 09:37 Dose: 81 mg Atorvastatin Calcium (Lipitor -) 40 mg PO HS [facility] Last Admin: 04/14/18 21:55 Dose: 40 mg Budesonide/Formoterol Fumarate (Symbicort 80/4.5mcg -) 2 puff IH BID [facility] Last Admin: 04/15/18 09:42 Dose: 2 puff Carvedilol (Coreg -) 25 mg PO BID [facility] Last Admin: 04/15/18 09:37 Dose: 25 mg Enoxaparin Sodium (Lovenox -) 40 mg SQ DAILY [facility] Last Admin: 04/15/18 09:37 Dose: 40 mg Guaifenesin (Robitussin -) 10 ml PO Q8H PRN PRN Reason: COUGH Last Admin: 04/15/18 09:41 Dose: 10 ml Hydralazine HCl (Apresoline -) 100 mg PO TID [facility] Last Admin: 04/15/18 06:40 Dose: 100 mg Insulin Aspart (Novolog Vial Sliding Scale -) 1 vial SQ ACHS [facility]; Protocol Last Admin: 04/15/18 10:53 Dose: 10 units Insulin Detemir (Levemir Vial) 30 units SQ AM [facility] Methylprednisolone Sodium Succinate (Solu-Medrol -) 40 mg IVPUSH BID [facility] Last Admin: 04/15/18 09:37 Dose: 40 mg Nifedipine (Procardia Xl -) 90 mg PO DAILY [facility] Last Admin: 04/15/18 09:37 Dose: 90 mg ASSESSMENT/PLAN: Patient is a 57 y/o male with a history of asthma, CAD, HTN, HLD, CKD, NIDDM, nonischemic dilated cardiomyopathy, diastolic CHF, substance abuse who is admitted for HTN emergency and acute bronchitis. #HTN emergency, resolved - hydralazine 100 mg po TID - carvedilol 25 mg po bid - nifedipine 90 mg po daily - imdur 30 mg po daily - continue to monitor can increase nifedipine - end organ damage; gogo #asthma exacerbation, controlled - symbicort 2 puff BID - Solu-medrol 40 mg IV push q12h - duoneb 1 amp nebs q6h prn - robitussin as needed #GOGO, possible CKD - Cr: 1.7, f/u renal ultrasound - baseline Cr 1.5 #HLD - atorvastatin 40 mg po hs - aspirin 81 mg #Chest pressure - last stress test 10/26/17: large inferior, inferolateral and apical infarct. no ischemia. LVEF 29% - likely needs stress test once medically optimized #preserved EF CHF - echo: LV normal size, mild concentric left ventricular hypertrophy, systolic function normal, diastolic dysfunction grade II, moderate - 10/27/17 last echo: mild concentric left ventricular hypertrophy, left ventricular ejection fraction is normal, right ventricle is normal in size and function. - Dr. Singletary: continue management - furosemide 40 mg po daily #tropinemia, resolved - likely due to demand ischemia #DM - A1C 10.6 % - Levemir 30 units sq - SS - diabetic teaching #dvt ppx - lovenox 40 mg sq FEN - dietary consult Dispo: monitor clinically Visit type - Emergency Visit Emergency Visit: No - New Patient This patient is new to me today: No - Critical Care Critical Care patient: No
[2018-04-15] MEDS ORDERED: INSULIN (NOVOLOG) ASPART 100 UNITS/ML 10ML VIAL ONE (16:25)
[2018-04-15] MEDS: guaiFENesin 200 MG/10 ML 10 ML UNIT-DOSE CUPS PO PRN (19:36)
[2018-04-15] MEDS: ATORVASTATIN CA 40 MG TABLET (FP) PO SCH (22:27)
[2018-04-15] MEDS: methylPREDNISolone NA SUCC 40 MG/1 ML VIAL IVPUSH SCH (22:27)
[2018-04-16] MEDS ORDERED: NIFEdipine E.R. 30 MG TABLET (FP) PO ONE (01:33)
[2018-04-16] MEDS: ALBUTEROL SO4 2.5/IPRATROPIUM 0.5 INH SOL 3 ML VIAL.NEB. NEB PRN ×6 (01:48→21:06)
[2018-04-16] MEDS: hydrALAZINE HCL 50 MG TABLET (FP) PO SCH ×4 (05:42→21:54)
[2018-04-16] MEDS: INSULIN SLIDING SCALE (NOVOLOG) 1 VIAL SQ SCH ×4 (06:39→21:56)
[2018-04-16] MEDS ORDERED: PT OWN MED DRAWER 7, Y5N ONE (06:49)
[2018-04-16] MEDS ORDERED: INSULIN (NOVOLOG) ASPART 100 UNITS/ML 10ML VIAL ONE ×3 (06:50→18:07)
[2018-04-16 06:52] LABS: HEMATOCRIT 36.7 % (35.4-49); HEMOGLOBIN 11.9 GM/dL (11.7-16.9); MCH 30.4 pg (25.7-33.7); MCHC 32.4 g/dl (32.0-35.9); MEAN CELL VOLUME 93.8 fl (80-96); MEAN PLT VOLUME 8.3 fl (7.5-11.1); PLATELET COUNT 370 K/MM3 (134-434); RBC 3.91 M/mm3 (4.00-5.60); RDW 14.7 % (11.9-15.9); WHITE BLOOD COUNT 11.6 K/mm3 (4.0-10.0)
[2018-04-16] MEDS ORDERED: INSULIN (LEVEMIR) 100 UNITS/ML UNITS SQ SCH ×5 (07:00→11:46)
[2018-04-16 07:32] LABS: ALK PHOS 148 U/L (45-117); ANION GAP 9 MMOL/L (8-16); BILIRUBIN,TOTAL 0.3 mg/dL (0.2-1); BLOOD UREA NITROGEN 32 mg/dL (7-18); CALCIUM 8.5 mg/dL (8.5-10.1); CHLORIDE 98 mmol/L (98-107); CO2 26 mmol/L (21-32); CREATININE 1.5 mg/dL (0.55-1.3); POTASSIUM 4.9 mmol/L (3.5-5.1); SGOT/AST 43 U/L (15-37); SGPT/ALT 74 U/L (13-61); SODIUM 133 mmol/L (136-145); TOT PROT 6.9 g/dl (6.4-8.2)
[2018-04-16] MEDS ORDERED: INSULIN (LEVEMIR) 100 UNITS/ML UNITS SQ STA (07:54)
[2018-04-16] MEDS: NIFEdipine E.R 60 MG TABLET (UD) PO SCH ×2 (08:30→11:06)
[2018-04-16] MEDS ORDERED: NIFEdipine E.R. 90 MG TABLET (FP) PO SCH (10:00)
--- NOTE | 2018-04-16 10:06 | PN ---
Physical Exam: SUBJECTIVE: Patient examined this morning and wheezing has improved. Patient denies any other complaints, no events overnight. OBJECTIVE: Vital Signs Temperature 97.5 F L 04/16/18 08:30 Pulse Rate 92 H 04/16/18 09:27 Respiratory Rate 20 04/16/18 09:27 Blood Pressure 156/124 H 04/16/18 09:27 O2 Sat by Pulse Oximetry (%) 98 04/15/18 21:00 GENERAL: The patient is awake, alert, and fully oriented, in no acute distress. HEAD: Normal with no signs of trauma. EYES: PERRL, extraocular movements intact, NECK: Trachea midline, full range of motion, supple. LUNGS: diffuse crackles, with rhonci HEART: Regular rate and rhythm, S1, S2 ABDOMEN: Soft, nontender, nondistended, EXTREMITIES:2+ pitting edema SKIN: Warm, dry, normal turgor, no rashes or lesions noted CBC, BMP 04/16/18 05:20 04/16/18 05:20 Active Medications Albuterol/Ipratropium (Duoneb -) 1 amp NEB Q6H PRN PRN Reason: SHORTNESS OF BREATH Last Admin: 04/16/18 08:06 Dose: 1 amp Aspirin (Asa -) 81 mg PO DAILY [facility] Atorvastatin Calcium (Lipitor -) 40 mg PO HS [facility] Last Admin: 04/15/18 22:27 Dose: 40 mg Budesonide/Formoterol Fumarate (Symbicort 80/4.5mcg -) 2 puff IH BID [facility] Last Admin: 04/15/18 22:43 Dose: 2 puff Carvedilol (Coreg -) 25 mg PO BID [facility] Last Admin: 04/15/18 22:28 Dose: 25 mg Enoxaparin Sodium (Lovenox -) 40 mg SQ DAILY [facility] Guaifenesin (Robitussin -) 10 ml PO Q8H PRN PRN Reason: COUGH Last Admin: 04/15/18 19:36 Dose: 10 ml Hydralazine HCl (Apresoline -) 100 mg PO TID [facility] Last Admin: 04/16/18 05:42 Dose: 100 mg Insulin Aspart (Novolog Vial Sliding Scale -) 1 vial SQ ACHS [facility]; Protocol Last Admin: 04/16/18 06:39 Dose: 10 units Insulin Detemir (Levemir Vial) 30 units SQ AM [facility] Last Admin: 04/16/18 06:39 Dose: 30 units Methylprednisolone Sodium Succinate (Solu-Medrol -) 40 mg IVPUSH BID [facility] Last Admin: 04/15/18 22:27 Dose: 40 mg Nifedipine (Procardia Xl -) 120 mg PO DAILY [facility] Last Admin: 04/16/18 08:30 Dose: 120 mg ASSESSMENT/PLAN: Patient is a 57 y/o male with a history of asthma, CAD, HTN, HLD, CKD, NIDDM, nonischemic dilated cardiomyopathy, diastolic CHF, substance abuse who is admitted for HTN emergency and acute bronchitis. #HTN - hydralazine 100 mg po TID - carvedilol 25 mg po bid - nifedipine 120 mg po daily - continue to monitor can increase nifedipine - discuss with Cardio, can add imdur if HTN still uncontrolled with increased nifedipine #asthma exacerbation, controlled - symbicort 2 puff BID - prednisone 40 mg po daily - duoneb 1 amp nebs q6h prn - robitussin as needed #GOGO, at baseline - Cr: 1.5 - US: kidneys unremarkable, post void 36 #infrarenal aortic aneryusm - CT from 2016 3.6 infrarenal aortic aneurysm extending into common iliac artery - repeat abdominal & pelvis CT: 4.3 cm distal AAA #HLD - atorvastatin 40 mg po hs - aspirin 81 mg #Chest pressure - last stress test 10/26/17: large inferior, inferolateral and apical infarct. no ischemia. LVEF 29% - likely needs stress test once medically optimized #preserved EF CHF - echo: LV normal size, mild concentric left ventricular hypertrophy, systolic function normal, diastolic dysfunction grade II, moderate - 10/27/17 last echo: mild concentric left ventricular hypertrophy, left ventricular ejection fraction is normal, right ventricle is normal in size and function. - Dr. Ro: continue management - furosemide 40 mg po daily #tropinemia, resolved - likely due to demand ischemia #DM - A1C 10.6 % - Levemir 40 units sq - SS - diabetic teaching #dvt ppx - lovenox 40 mg sq FEN - dietary consult Dispo: monitor clinically Visit type - Emergency Visit Emergency Visit: No - New Patient This patient is new to me today: No - Critical Care Critical Care patient: No
--- NOTE | 2018-04-16 10:13 | PN ---
Teaching Attending Note Name of Resident: Faby Sidhu ATTENDING PHYSICIAN STATEMENT I saw and evaluated the patient. I reviewed the resident's note and discussed the case with the resident. I agree with the resident's findings and plan as documented. SUBJECTIVE:asymptomatic. states breathing is at baseline. denies CP, SOB< fever , chills, N/V/C/D OBJECTIVE: Last Vital Signs Temp Pulse Resp BP Pulse Ox 97.5 F L 92 H 20 156/124 H 98 04/16/18 08:30 04/16/18 09:27 04/16/18 09:27 04/16/18 09:27 04/15/18 21:00 General NAD CV S1 S2 RRR no murmur/rub/gallop Lungs CTA B/L no wheezing/rales/rhonchi Extremities trace pedal edema ASSESSMENT AND PLAN: 57yo M with PMH HTN, CAD, systolic CHF, CKD, DM, COPD and remote polysubstance abuse presented to the ER wtih CP and dyspnea and found to have elevated troponin wioth HTN urgency 1. NSTEMI- likely demand from HTN urgency. flat trend to troponins. echo reviewed with no WMA. will need ischemia eval. can be done as outpatient. will need to show compliance. 2. HTN urgency-resistant HTN. on max doses of nifedipine and hydralazine. would like to start chlorathiadone however may need to wait for renal impaoirment. will d/w cardio. 3. ACute COPD exacerbation-overall improved. will switch to pred po tomorrow. nebs prn. robitussin prn. 4. Acute on CKD- baseline Cr 1.3. possible medication induced from lasix IV given. now stabilized. renal u/s not revealing. 5. AAA- infrarenal AAA 3.6cm seen on CT and not appreciated on this exam. pt never followed it up. will get CT abdomen/pelvis to evaluate if growing in size 6. hyperkaelmia- liekly due to GOGO. not on medications causing hyperkalemia. give kayexylate. 7. Hyperglycemia- A1c 10.6. increased levemir to 40units this AM will likley require higher doses. cont to titrate. 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 8. pseudohyponatremia- corrected Na 135 9. Systolic CHF- does not appear to be volume overloaded at this time. hold lasix given GOGO 10. remote polysubstance abuse- denies ETOH and cocaine use 11. DVT ppx-lovenox
[2018-04-16] MEDS: predniSONE 20 MG TABLET (UD) PO SCH (10:58)
[2018-04-16] MEDS: ASPIRIN 81 MG CHEWABLE TABLETS PO SCH (10:58)
[2018-04-16] MEDS: ENOXAPARIN NA (PORCINE) 40 MG/0.4 ML DISP.SYRIN SQ SCH (10:58)
[2018-04-16] MEDS: CARVEDILOL 25 MG TABLET (FP) PO SCH ×2 (10:59→21:55)
[2018-04-16] MEDS: BUDESONIDE/FORMETEROL FUMARATE 80/4.5 mcg INHALER IH SCH ×2 (11:09→21:57)
--- NOTE | 2018-04-16 11:40 | PN ---
Progress Note, Physician History of Present Illness: Cough, dyspnea and wheeze improving with treatment to baseline status. OOB in chair. - Current Medication List Current Medications: Active Medications Albuterol/Ipratropium (Duoneb -) 1 amp NEB Q6H PRN PRN Reason: SHORTNESS OF BREATH Last Admin: 04/16/18 11:32 Dose: 1 amp Aspirin (Asa -) 81 mg PO DAILY [facility] Last Admin: 04/16/18 10:58 Dose: 81 mg Atorvastatin Calcium (Lipitor -) 40 mg PO HS [facility] Last Admin: 04/15/18 22:27 Dose: 40 mg Budesonide/Formoterol Fumarate (Symbicort 80/4.5mcg -) 2 puff IH BID [facility] Last Admin: 04/16/18 11:09 Dose: 2 puff Carvedilol (Coreg -) 25 mg PO BID [facility] Last Admin: 04/16/18 10:59 Dose: 25 mg Enoxaparin Sodium (Lovenox -) 40 mg SQ DAILY [facility] Last Admin: 04/16/18 10:58 Dose: 40 mg Guaifenesin (Robitussin -) 10 ml PO Q8H PRN PRN Reason: COUGH Last Admin: 04/15/18 19:36 Dose: 10 ml Hydralazine HCl (Apresoline -) 100 mg PO TID [facility] Last Admin: 04/16/18 05:42 Dose: 100 mg Insulin Aspart (Novolog Vial Sliding Scale -) 1 vial SQ ACHS [facility]; Protocol Last Admin: 04/16/18 06:39 Dose: 10 units Insulin Detemir (Levemir Vial) 30 units SQ AM [facility] Last Admin: 04/16/18 06:39 Dose: 30 units Nifedipine (Procardia Xl -) 120 mg PO DAILY [facility] Last Admin: 04/16/18 11:06 Dose: Not Given Prednisone (Deltasone -) 40 mg PO DAILY [facility] Last Admin: 04/16/18 10:58 Dose: 40 mg - Objective Vital Signs: Vital Signs Temperature 97.5 F L 04/16/18 08:30 Pulse Rate 92 H 04/16/18 09:27 Respiratory Rate 20 04/16/18 09:27 Blood Pressure 156/124 H 04/16/18 09:27 O2 Sat by Pulse Oximetry (%) 98 04/15/18 21:00 Constitutional: Yes: No Distress, Calm Neck: Yes: Supple Cardiovascular: Yes: Regular Rate and Rhythm Respiratory: Yes: Regular, CTA Bilaterally Gastrointestinal: Yes: Normal Bowel Sounds, Soft Edema: No Labs: CBC, BMP 04/16/18 05:20 04/16/18 05:20 INR, PTT INR 1.06 (0.83-1.09) 04/12/18 17:00 Problem List - Problems (1) [id number] kidney injury Code(s): N17.9 - ACUTE KIDNEY FAILURE, UNSPECIFIED; N18.9 - CHRONIC KIDNEY DISEASE, UNSPECIFIED Qualifiers: Chronic kidney disease stage: stage 3 (moderate) (2) Hypertensive urgency Code(s): I16.0 - HYPERTENSIVE URGENCY (3) Shortness of breath Code(s): R06.02 - SHORTNESS OF BREATH (4) History of myocardial infarction Code(s): I25.2 - OLD MYOCARDIAL INFARCTION (5) Hyperlipidemia Code(s): E78.5 - HYPERLIPIDEMIA, UNSPECIFIED Qualifiers: Hyperlipidemia type: pure hypercholesterolemia Qualified Code(s): E78.00 - Pure hypercholesterolemia, unspecified (6) COPD exacerbation Code(s): J44.1 - CHRONIC OBSTRUCTIVE PULMONARY DISEASE W (ACUTE) EXACERBATION (7) Diastolic dysfunction without heart failure Code(s): I51.9 - HEART DISEASE, UNSPECIFIED Assessment/Plan 04/13/2018 Echo: Normal LV size and fxn with mild cLVH, grade II diastolic dysfunction, mod LAE, mild MR, mild AR 10/27/2017 Echo: Mild cLVH, normal RV and LV size and fxn, mild-mod MR, mild AR 10/29/2017 Regadenoson stress: Large inferior, inferolateral and apical infarct without ischemia, LVEF 29% 1. CAD and history of ID, PCI/stent with demand ischemia 2. URI triggered COPD exacerbation 3. HTN, BP not at goal 4. Hypercholesterolemia 5. DM not well controlled 10.6% 6. Acute on CKD resolving 7. History of LV systolic/diastolic heart failure 8. Substance abuse (Cocaine) 9. History of angioedema due to ACEI PLAN: 1. Holding Lasix and observe for renal recovery and electrolytes 2. Continue Carvedilol 25 bid, Hydralazine 100 tid, ASA 81 qd, Lipitor 40 qhs, and increased Procardia XL 120 qd, resume Imdur 30 qd and uptitrate as tolerated 3. DVT prophylaxis with Lovenox 4. Troponins are downtrending 5. BD, oral steroid taper, O2 as needed
[2018-04-16 12:08] LABS: GLUCOSE,RANDOM 397 mg/dL (74-106)
[2018-04-16] MEDS: ISOSORBIDE MONONITRATE 30 MG TAB.SR.24H (FP) PO SCH (12:34)
[2018-04-16] MEDS: methylPREDNISolone NA SUCC 40 MG/1 ML VIAL IVPUSH SCH (12:38)
[2018-04-16] MEDS: ATORVASTATIN CA 40 MG TABLET (FP) PO SCH (21:54)
[2018-04-17] MEDS ORDERED: INSULIN (NOVOLOG) ASPART 100 UNITS/ML 10ML VIAL SQ ONE (00:11)
[2018-04-17] MEDS ORDERED: ISOSORBIDE MONONITRATE 30 MG TAB.SR.24H (FP) PO ONE ×2 (01:34→11:00)
[2018-04-17] MEDS: guaiFENesin 200 MG/10 ML 10 ML UNIT-DOSE CUPS PO PRN (02:48)
[2018-04-17] MEDS: hydrALAZINE HCL 50 MG TABLET (FP) PO SCH (06:49)
[2018-04-17] MEDS: INSULIN SLIDING SCALE (NOVOLOG) 1 VIAL SQ SCH ×2 (06:50→11:36)
[2018-04-17] MEDS: ALBUTEROL SO4 2.5/IPRATROPIUM 0.5 INH SOL 3 ML VIAL.NEB. NEB PRN (07:45)
[2018-04-17 08:35] LABS: ALK PHOS 127 U/L (45-117); ANION GAP 5 MMOL/L (8-16); BILIRUBIN,TOTAL 0.4 mg/dL (0.2-1); BLOOD UREA NITROGEN 26 mg/dL (7-18); CALCIUM 9.1 mg/dL (8.5-10.1); CHLORIDE 101 mmol/L (98-107); CO2 31 mmol/L (21-32); CREATININE 1.4 mg/dL (0.55-1.3); GLUCOSE,RANDOM 152 mg/dL (74-106); POTASSIUM 4.4 mmol/L (3.5-5.1); SGOT/AST 30 U/L (15-37); SGPT/ALT 68 U/L (13-61); SODIUM 137 mmol/L (136-145); TOT PROT 6.6 g/dl (6.4-8.2)
[2018-04-17] MEDS: ISOSORBIDE MONONITRATE 30 MG TAB.SR.24H (FP) PO SCH ×2 (08:36→10:09)
[2018-04-17] MEDS: NIFEdipine E.R 60 MG TABLET (UD) PO SCH ×2 (08:36→10:09)
[2018-04-17] MEDS: CARVEDILOL 25 MG TABLET (FP) PO SCH ×2 (08:36→10:10)
[2018-04-17] MEDS ORDERED: PT OWN MED DRAWER 7, Y5N ONE (09:59)
[2018-04-17 10:05] VITALS: TEMP 97.3
[2018-04-17] MEDS: predniSONE 20 MG TABLET (UD) PO SCH (10:08)
[2018-04-17] MEDS: ASPIRIN 81 MG CHEWABLE TABLETS PO SCH (10:08)
[2018-04-17] MEDS: ENOXAPARIN NA (PORCINE) 40 MG/0.4 ML DISP.SYRIN SQ SCH (10:08)
[2018-04-17] MEDS: BUDESONIDE/FORMETEROL FUMARATE 80/4.5 mcg INHALER IH SCH (10:10)
[2018-04-17] MEDS ORDERED: FUROSEMIDE 40 MG TABLET (FP) PO ONE (11:15)
--- NOTE | 2018-04-17 11:55 | PN ---
Progress Note (short form) - Note Progress Note: asymptomatic. wants to go home. denies CP, SOB, fever, chills, cough, N/V/c/D Current Medications Generic Name Dose Route Start Last Admin Trade Name Freq PRN Reason Stop Dose Admin Albuterol/Ipratropium 1 amp 04/15/18 14:47 04/17/18 07:45 Duoneb - NEB 1 amp Q6H PRN Administration SHORTNESS OF BREATH Aspirin 81 mg 04/16/18 10:00 04/17/18 10:08 Asa - PO 81 mg DAILY PUSHPA Administration Atorvastatin Calcium 40 mg 04/15/18 22:00 04/16/18 21:54 Lipitor - PO 40 mg HS PUSHPA Administration Budesonide/Formoterol Fumarate 2 puff 04/15/18 22:00 04/17/18 10:10 Symbicort 80/4.5mcg - IH 2 puff BID PUSHPA Administration Carvedilol 25 mg 04/15/18 22:00 04/17/18 10:10 Coreg - PO Not Given BID PUSHPA Enoxaparin Sodium 40 mg 04/16/18 10:00 04/17/18 10:08 Lovenox - SQ 40 mg DAILY PUSHPA Administration Guaifenesin 10 ml 04/15/18 14:47 04/17/18 02:48 Robitussin - PO 10 ml Q8H PRN Administration COUGH Hydralazine HCl 100 mg 04/15/18 22:00 04/17/18 06:49 Apresoline - PO 100 mg TID PUSHPA Administration Insulin Aspart 1 vial 04/15/18 16:30 04/17/18 11:36 Novolog Vial Sliding Scale - SQ 6 units ACHS PUSHPA Administration Protocol Insulin Detemir 40 units 04/16/18 11:46 04/17/18 06:50 Levemir Vial SQ 40 units AM PUSHPA Administration Isosorbide Mononitrate 30 mg 04/16/18 12:00 04/17/18 10:09 Imdur - PO Not Given DAILY PUSHPA Nifedipine 120 mg 04/16/18 10:00 04/17/18 10:09 Procardia Xl - PO Not Given DAILY PUSHPA Prednisone 40 mg 04/16/18 10:00 04/17/18 10:08 Deltasone - PO 40 mg DAILY PUSHPA Administration Last Vital Signs Temp Pulse Resp BP Pulse Ox 97.3 F L 90 24 H 149/97 96 04/17/18 10:02 04/17/18 11:40 04/17/18 11:40 04/17/18 11:40 04/17/18 10:34 General NAD CV S1 S2 RRR no murmur/rub/gallop Lungs CTA B/L no wheezing/rales/rhonchi Extremities trace pedal edema CMP Sodium 137 mmol/L (136-145) 04/17/18 06:30 Potassium 4.4 mmol/L (3.5-5.1) 04/17/18 06:30 Chloride 101 mmol/L (98-107) 04/17/18 06:30 Carbon Dioxide 31 mmol/L (21-32) 04/17/18 06:30 Anion Gap 5 MMOL/L (8-16) L 04/17/18 06:30 BUN 26 mg/dL (7-18) H 04/17/18 06:30 Creatinine 1.4 mg/dL (0.55-1.3) H 04/17/18 06:30 Creat Clearance w eGFR 52.42 (>60) 04/17/18 06:30 Calcium 9.1 mg/dL (8.5-10.1) 04/17/18 06:30 Total Bilirubin 0.4 mg/dL (0.2-1) 04/17/18 06:30 AST 30 U/L (15-37) 04/17/18 06:30 ALT 68 U/L (13-61) H 04/17/18 06:30 Alkaline Phosphatase 127 U/L (45-117) H 04/17/18 06:30 Total Protein 6.6 g/dl (6.4-8.2) 04/17/18 06:30 Albumin 3.0 g/dl (3.4-5.0) L 04/17/18 06:30 ASSESSMENT AND PLAN: 57yo M with PMH HTN, CAD, systolic CHF, CKD, DM, COPD and remote polysubstance abuse presented to the ER wtih CP and dyspnea and found to have elevated troponin wioth HTN urgency 1. NSTEMI- likely demand from HTN urgency. flat trend to troponins. echo reviewed with no WMA. will need ischemia eval. can be done as outpatient. will need to show compliance. 2. HTN urgency-resistant HTN. increase imdur. re-start lasix. states he has not had workup for 2ndary causes of HTN. should see a HTN specialist. 3. ACute COPD exacerbation-overall improved. will do quick steroid taper. decrease by 10mg every 2 days. symbicort and albuterol. 4. Acute on CKD- baseline Cr 1.3. possible medication induced from lasix IV given. now stabilized. renal u/s not revealing. 5. AAA- infrarenal AAA now 4.3cm. will need routine surveillance. repeat in 6 months. explained risks of rupture if this is not monitored. 6. hyperkaelmia- liekly due to GOGO. not on medications causing hyperkalemia. resolved 7. Hyperglycemia- A1c 10.6. slightly improved but not controlled. switch to levemir 30 units BID for better control. instucted pt to keep log and bring to next PMD appt. 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 8. pseudohyponatremia- corrected Na 135 9. Systolic CHF- does not appear to be volume overloaded at this time. re-start lasix 10. remote polysubstance abuse- denies ETOH and cocaine use 11. DVT ppx-lovenox 12. pt wants to leave AMA. counselled on serious implications with such high BP and risk for stroke, cardiac event, and . verbalized understanding. counselled in detail how to monitor BP and sugars going further. stressed importance of following with PMD on Thursday Visit type - Emergency Visit Emergency Visit: Yes ED Registration Date: 04/12/18 Care time: The patient presented to the Emergency Department on the above date and was hospitalized for further evaluation of their emergent condition. - New Patient This patient is new to me today: No - Critical Care Critical Care patient: No - Discharge Referral Referred to [facility] Yes Physician Referral: Lenny Esquivel MD ([facility])
[2018-04-17 12:47] VITALS: BP 151/93; PULSE 86
--- NOTE | 2018-04-19 06:13 | DS ---
Physical Exam: SUBJECTIVE: Patient seen and examined OBJECTIVE: PHYSICAL EXAM GENERAL: The patient is awake, alert, and fully oriented, in no acute distress. HEAD: Normal with no signs of trauma. EYES: PERRL, extraocular movements intact, sclera anicteric, conjunctiva clear. ENT: Ears normal, nares patent, oropharynx clear without exudates, moist mucous membranes. NECK: Trachea midline, full range of motion, supple. LUNGS: Breath sounds equal, clear to auscultation bilaterally, no wheezes, no crackles, no accessory muscle use. HEART: Regular rate and rhythm, S1, S2 without murmur, rub or gallop. ABDOMEN: Soft, nontender, nondistended, normoactive bowel sounds, no guarding, no rebound, no hepatosplenomegaly, no masses. EXTREMITIES: 2+ pulses, warm, well-perfused, no edema. NEUROLOGICAL: Cranial nerves II through XII grossly intact. Normal speech, gait not observed. PSYCH: Normal mood, normal affect. SKIN: Warm, dry, normal turgor, no rashes or lesions noted. LABS HOSPITAL COURSE: Date of Admission:04/12/18 Patient was admitted to the hospital for chest pain. EKG was found to have st t wave changes, but these changes seen on ekg from last hospital admission. Troponemia present but likely 2/2 to demand ischemia. Patient presented SOB 2/2 to asthma exacerbation. Treated with steroids and symbicort and albuterol. Patient non compliant with his medications at home. Patient wheezing significantly improved over hospital course. Patient presented with hypertensive urgency. Home medications restarted, procardia increased and imdur. Extensively consulted on importance of continuing home medications. Patient had a AAA eevaluated on ABD/CT in 2015, repeat imagin shows increase in size to 4.3cm. Discussed following up in 6 months for repeat scan follow up. A1C 10.6, patient started on levemir and sliding scale. Glucose better under control. US: kidneys unremarkable, post void 36 CT from 2016 3.6 infrarenal aortic aneurysm extending into common iliac artery last stress test 10/26/17: large inferior, inferolateral and apical infarct. no ischemia. LVEF 29% echo: LV normal size, mild concentric left ventricular hypertrophy, systolic function normal, diastolic dysfunction grade II, moderate Urine CX and blood CX: no growth Date of Discharge: 04/19/18 Minutes to complete discharge: 50 Discharge Summary Reason For Visit: CHEST PAIN Condition: Guarded - Instructions Diet, Activity, Other Instructions: You were admitted to the hospital for shortness of breath. This was due to an exacerbation of your asthma. We treated you with inhalers and steroids. To continue treatment of your asthma please take: Prednisone taper (30mg x2 days then 20mg x2 days then 10mg x2days) Symbicort 2 puffs daily, this is regardless if your having symptoms or not. While you were here your blood pressure was found to be elevated. We have adjusted your medications to treat your high blood pressure. To continue to treat your high blood pressure please take: Coreg 25 mg by mouth twice a day Imdur 60 mg by mouth once a day Procardia Xl 120 mg by mouth once a day Hydralazine HCl 100 mg by mouth three times a day lasix 40mg by mouth daily PLease follow up with your primary care doctor to investigate alternative causes of why your blood pressure is difficult to control. Please use a blood pressure cuff and check your blood pressure daily. IF you receive >180/100 COME TO THE ER. or if your ever having any symptoms of headache, blurred vision, tingling around your mouth or fingers. We also managed your diabetes while you were here. It is very important to control your sugars every day. Uncontrolled sugars can lead to worsening of your blood pressure and damage on your organs including kidney, brain, eyes, and more. check your sugars 3x a day (prior to each meal) and document these. BRing this with you to your next doctors appointment To continue to treat your diabetes please take: Levemir 30 units twice a day. In 2016 you were found to have a slight increase in the size of your aorta ( blood vessel in your stomach). While you were here we did a CT scan that found the aorta has increased slightly in size. You do not need any management for this at this time. Please report these findings to your primary care physician so they can continue to follow the size of your aorta. You should have a repeat CT scan in 6 months Please see your Primary care doctor on thursday Please also continue to take: Aspirin 81 mg by mouth daily Atorvastatin 40 mg by mouth at night Return to the Emergency Department if you have any shortness of breath, nausea, vomiting, chest pain, or headache. Referrals: Lenny Hernandez MD [Primary Care Provider] - Disposition: AGAINST MEDICAL ADVICE - Home Medications Comprehensive Discharge Medication List: Ambulatory Orders Aspirin 81 mg PO DAILY 05/10/17 Atorvastatin Ca [Lipitor] 40 mg PO HS 05/10/17 Ergocalciferol [Vitamin D2] 50,000 unit PO FR 05/10/17 Furosemide [Lasix -] 40 mg PO DAILY 05/10/17 Hydralazine HCl 100 mg PO TID 05/10/17 Carvedilol [Coreg -] 25 mg PO BID #60 tablet 10/30/17 Albuterol Sulfate Inhaler - [Ventolin HFA Inhaler -] 1 - 2 inh PO Q4H #1 inhaler 04/17/18 Budesonide/Formeterol Fumarate [SYMBICORT 80/4.5mcg -] 2 puff IH BID #1 inhaler 04/17/18 Insulin (Levemir) [Levemir Vial] 30 units SQ BID #1 units 04/17/18 Isosorbide Mononitrate [Imdur -] 60 mg PO DAILY #30 tab.sr.24h 04/17/18 Medical Supply, Miscellaneous [Blood Pressure Cuff] 1 each MC DAILY #1 each Miscellaneous Medical Supply [Glucometer Device] 1 each NR ASDIR #1 kit Miscellaneous Medical Supply [Glucometer Test Strips #100] 1 each NR ASDIR #1 box 04/17/18 Nifedipine ER [Procardia XL -] 120 mg PO DAILY #60 tab.er.24 04/17/18 Prednisone 10 mg PO DAILY #12 tablet 04/17/18 This patient is new to me today: No Emergency Visit: No Critical Care patient: No - Discharge Referral Referred to [facility] Yes Physician Referral: Lenny Esquivel MD ([facility])
== END 2018-04-17 12:50 | disposition left against medical advice (07) | DRG 190 ==
LOC: JER 15:03 → JERBED 18:23 → J4W 04-13 18:47 → J5S 04-15 14:43
PROVIDERS: ADMIT Internal Medicine; ATTEND Internal Medicine
DX: I21.4 Non-ST elevation (NSTEMI) myocardial infarction (principal); I25.10 Atherosclerotic heart disease of native coronary artery without angina pectoris; E87.5 Hyperkalemia; I16.0 Hypertensive urgency; F17.210 Nicotine dependence, cigarettes, uncomplicated; I71.4 Abdominal aortic aneurysm, without rupture; F14.11 Cocaine abuse, in remission; K21.9 Gastro-esophageal reflux disease without esophagitis; M54.9 Dorsalgia, unspecified; I13.0 Hypertensive heart and chronic kidney disease with heart failure and stage 1 through stage 4 chronic kidney disease, or unspecified chronic kidney disease; E11.65 Type 2 diabetes mellitus with hyperglycemia; N17.9 Acute kidney failure, unspecified; J45.901 Unspecified asthma with (acute) exacerbation; J44.1 Chronic obstructive pulmonary disease with (acute) exacerbation; I42.0 Dilated cardiomyopathy; E87.1 Hypo-osmolality and hyponatremia; J06.9 Acute upper respiratory infection, unspecified; E78.5 Hyperlipidemia, unspecified; Z98.61 Coronary angioplasty status; I50.30 Unspecified diastolic (congestive) heart failure; N18.3 Chronic kidney disease, stage 3 (moderate); R00.0 Tachycardia, unspecified; E66.9 Obesity, unspecified; Z68.37 Body mass index [BMI] 37.0-37.9, adult
CPT/HCPCS: 36415; 71046-TC-FY; 74176-TC; 76775-TC; 76856-TC; 80053; 81003; 81015; 82550; 82553; 82803; 82947; 82962; 83036; 83605; 83735; 83880; 84100; 84484; 85025; 85027; 85379; 85610; 85730; 87040; 87086; 87804; 93005; 93010; 93306-TC; 94150; 94640; 99285-25

== ENCOUNTER 2018-07-01 06:41 | Inpatient (IN) | payer OTHER ==
--- NOTE | 2018-07-01 07:54 | PDOC ---
History of Present Illness - General Chief Complaint: Shortness of Breath Stated Complaint: DIFFICULTY BREATHING,CUGH History Source: Patient Exam Limitations: No Limitations - History of Present Illness Initial Comments: 07/01/18 07:52 58 yo M with a hx of DM (on insulin), CHF, CAD (3x MIs), COPD, and HLD presents to the emergency department with SOB. Per the patient, it began abruptly at 4: 30 am today. States he ran out of his medications 2 days ago and did not take his medications yesterday. He states he does not know what medications he takes , stating "they are in the system". Denies the following: fever, chills, chest pain, nausea, vomiting, abdominal pain, dysuria, hematuria, diarrhea, and hematochezia. Endorses cough without production for 3 days. Allergies: IRMA inhibitors. Past History - Past Medical History Allergies/Adverse Reactions: Allergies Allergy/AdvReac Type Severity Reaction Status Date / Time IRMA Inhibitors Allergy Verified 07/01/18 06:59 Home Medications: Ambulatory Orders Aspirin 81 mg PO DAILY 05/10/17 Atorvastatin Ca [Lipitor] 40 mg PO HS 05/10/17 Ergocalciferol [Vitamin D2] 50,000 unit PO FR 05/10/17 Furosemide [Lasix -] 40 mg PO DAILY 05/10/17 Hydralazine HCl 100 mg PO TID 05/10/17 Carvedilol [Coreg -] 25 mg PO BID #60 tablet 10/30/17 Albuterol Sulfate Inhaler - [Ventolin HFA Inhaler -] 1 - 2 inh PO Q4H #1 inhaler 04/17/18 Budesonide/Formeterol Fumarate [SYMBICORT 80/4.5mcg -] 2 puff IH BID #1 inhaler 04/17/18 Insulin (Levemir) [Levemir Vial] 30 units SQ BID #1 units 04/17/18 Isosorbide Mononitrate [Imdur -] 60 mg PO DAILY #30 tab.sr.24h 04/17/18 Medical Supply, Miscellaneous [Blood Pressure Cuff] 1 each MC DAILY #1 each Miscellaneous Medical Supply [Glucometer Device] 1 each NR ASDIR #1 kit Miscellaneous Medical Supply [Glucometer Test Strips #100] 1 each NR ASDIR #1 box 04/17/18 Nifedipine ER [Procardia XL -] 120 mg PO DAILY #60 tab.er.24 04/17/18 Prednisone 10 mg PO DAILY #12 tablet 04/17/18 Anemia: No Asthma: Yes Cancer: No Cardiac Disorders: Yes (ACS, CAD - s/p PCI/Stents, [place] X3, non-ischemic Cardiomyopathy) CVA: No COPD: Yes CHF: Yes (Diastolic CHF) DVT: No Dementia: No Diabetes: Yes GI Disorders: No Disorders: No HTN: Yes Hypercholesterolemia: Yes Kidney Stones: No Liver Disease: No Seizures: No Thyroid Disease: No - Surgical History Abdominal Surgery: No Appendectomy: No Cardiac Surgery: No Cholecystectomy: No Lung Surgery: No Neurologic Surgery: No Orthopedic Surgery: Yes (Old injury fractured left ankle x2) - Reproductive History Testicular Surgery: No - Immunization History Immunization Up to Date: Yes - Suicide/Smoking/Psychosocial Hx Smoking Status: No Smoking History: Current every day smoker Have you smoked in the past 12 months: Yes Number of Cigarettes Smoked Daily: 3 Information on smoking cessation initiated: No 'Breaking Loose' booklet given: 04/13/18 Hx Alcohol Use: Yes Drug/Substance Use Hx: Yes (Cocaine) Substance Use Type: Cocaine Hx Substance Use Treatment: No *Physical Exam - Vital Signs Last Vital Signs Temp Pulse Resp BP Pulse Ox 98.7 F 117 H 22 H 169/86 96 07/01/18 06:41 07/01/18 06:41 07/01/18 06:41 07/01/18 06:41 07/01/18 06:41 ED Treatment Course - LABORATORY CBC & Chemistry Diagram: 07/01/18 08:46 07/01/18 08:46 - RADIOLOGY Radiology Studies Ordered: Category Date Time Status CHEST PA & LAT [RAD] Stat Radiology 07/01/18 07:51 Ordered *DC/Admit/Observation/Transfer Diagnosis at time of Disposition: CHF exacerbation Qualifiers: Heart failure type: unspecified Qualified Code(s): I50.9 - Heart failure, unspecified - Discharge Dispostion Condition at time of disposition: Fair - Referrals - Patient Instructions - Post Discharge Activity
[2018-07-01] MEDS ORDERED: FUROSEMIDE 40 MG/4 ML INJECTABLE VIAL IVPUSH ONE (08:27)
[2018-07-01] MEDS ORDERED: ALBUTEROL SO4 2.5/IPRATROPIUM 0.5 INH SOL 3 ML VIAL.NEB. NEB ONE ×2 (08:39→13:14)
[2018-07-01] MEDS: ALBUTEROL SO4 2.5/IPRATROPIUM 0.5 INH SOL 3 ML VIAL.NEB. NEB SCH ×3 (08:48→21:00)
[2018-07-01] MEDS ORDERED: FUROSEMIDE 40 MG/4 ML INJECTABLE VIAL ONE (08:48)
[2018-07-01 09:18] LABS: BASO % 0.8 % (0-2.0); EOS % 1.3 % (0-4.5); HEMATOCRIT 36.3 % (35.4-49); HEMOGLOBIN 11.5 GM/dL (11.7-16.9); LYMPH % 16.5 % (8-40); MCHC 31.6 g/dl (32.0-35.9); MEAN CELL VOLUME 94.7 fl (80-96); MEAN PLT VOLUME 7.2 fl (7.5-11.1); MONO % 7.7 % (3.8-10.2); NEUT % 73.7 % (42.8-82.8); PLATELET COUNT 399 K/MM3 (134-434); RBC 3.83 M/mm3 (4.00-5.60); RDW 14.8 % (11.9-15.9); WHITE BLOOD COUNT 11.2 K/mm3 (4.0-10.0)
[2018-07-01 09:49] LABS: ALBUMIN 3.2 g/dl (3.4-5.0); BILIRUBIN,TOTAL 0.4 mg/dL (0.2-1); CALCIUM 9.1 mg/dL (8.5-10.1); CREATININE 1.5 mg/dL (0.55-1.3); POTASSIUM 4.9 mmol/L (3.5-5.1); TOT PROT 7.2 g/dl (6.4-8.2)
--- NOTE | 2018-07-01 10:50 | PDOC ---
Attending Attestation - Resident Resident Name: Ernesto Bynum - ED Attending Attestation I have performed the following: I have examined & evaluated the patient, The case was reviewed & discussed with the resident, I agree w/resident's findings & plan - HPI HPI: 07/01/18 10:44 58-year-old male with history of COPD, CAD/CHF presents with shortness of breath and cough worse overnight, no fevers or chills or chest pain. Ran out of his Lasix yesterday, otherwise states he has been compliant. He notes increased bilateral leg swelling over the last week. - Physicial Exam PE: 07/01/18 10:46 tachypneic and tachycardic at triage, but on my evaluation seated in stretcher is breathing at about 18 and satting well on room air No JVD Heart is regular with 2/6 murmur, lungs have slight crackles at the bases with expiratory wheezing bilaterally 2+ pitting edema bilaterally - Medical Decision Making 07/01/18 10:47 58-year-old male with history of CHF and COPD presents with shortness of breath and cough over the last 24 hours, crackle/wheezing on exam but with evidence of volume overload and peripheral edema more suggestive of CHF exacerbation/ pulmonary edema plus or minus COPD. Received nebulizers, EKG, supplemental oxygen immediately upon arrival Labs, chest x-ray IV Lasix Admission Heart Score/ECG Review #1 ECG reviewed & interpreted by me at: 09:06 General ECG Interpretation: Sinus Rhythm (with PVC x2 noted), Normal Rate ( slight tachy at 105), Normal Intervals, No acute ischemic changes (TWI I/AVL)
[2018-07-01] MEDS ORDERED: hydrALAZINE HCL 25 MG TABLET (FP) ONE (11:51)
[2018-07-01] MEDS: hydrALAZINE HCL 50 MG TABLET (FP) PO SCH ×3 (11:55→23:32)
[2018-07-01] MEDS ORDERED: ISOSORBIDE MONONITRATE 60 MG TAB.SR.24H (FP) PO ONE (12:03)
[2018-07-01] MEDS ORDERED: NIFEdipine E.R. 30 MG TABLET (FP) ONE (12:03)
[2018-07-01] MEDS: NIFEdipine E.R 60 MG TABLET (UD) PO SCH (12:07)
[2018-07-01] MEDS: ISOSORBIDE MONONITRATE 60 MG TAB.SR.24H (FP) PO SCH (12:07)
--- NOTE | 2018-07-01 12:08 | HP ---
CHIEF COMPLAINT: SOB x 1 day PCP: Dr. Esquivel HISTORY OF PRESENT ILLNESS: 58 y/o M with hx HTN, CAD (3x [place], denies stent), CKD, DM, COPD, polysubstance abuse (cocaine), who presents to the ED c/o SOB that started this morning. As per pt, he became SOB at rest at 4:30AM. States that he ran out of his medications yesterday, missing all doses. During this time, he states that he has also been SOB on exertion when ambulating up hills, and has had increased LE edema. Mentions that his legs have felt "very hard," subsequently making it hard for him to ambulate. Pt also endorses a productive cough over the past 2-3 days with yellow/green sputum without blood. He has also been actively smoking daily (1 pack/wk), and last used cocaine three days ago. Has been discharged previously, recommended cardio f/u, however never f/u. Denies HURD, fever, chills , chest pain or pressure, or changes or urinary or bowel function. Of note, pt was hospitalized in 03/2018 for HTN urgency (meds were optimized by cardio w/ procardia, imdur, hydralazine), COPD exacerbation (tx with medrol, symbicort, nebs), elevated trop and chest pain. Pt had left AMA at the time. ER course was notable for: (1) duoneb x 1 (2) lasix 40mg IVP x 1 (3) Recent Travel: denies PAST MEDICAL HISTORY: as above PAST SURGICAL HISTORY: R testic torsion repair Social History: has been on disability for 3 years. used to work at a [employer] Smokin pack/week Alcohol: beer 3 cans /day . does not feel as if he is withdrawing now. Drugs: cocaine - 3 days ago, prior use 9 months ago Family History: DM- sis, HTN-mom Allergies IRMA Inhibitors Allergy (Verified 07/01/18 06:59) ANGIOEDEMA HOME MEDICATIONS: Home Medications Medication Instructions Recorded Aspirin 81 mg PO DAILY 05/10/17 Atorvastatin Ca [Lipitor] 40 mg PO HS 05/10/17 Ergocalciferol [Vitamin D2] 50,000 unit PO FR 05/10/17 Furosemide [Lasix -] 40 mg PO DAILY 05/10/17 Hydralazine HCl 100 mg PO TID 05/10/17 Carvedilol [Coreg -] 25 mg PO BID #60 tablet 10/30/17 Albuterol Sulfate Inhaler - 1 - 2 inh PO Q4H #1 inhaler 04/17/18 [Ventolin HFA Inhaler -] Budesonide/Formeterol Fumarate 2 puff IH BID #1 inhaler 04/17/18 [SYMBICORT 80/4.5mcg -] Insulin (Levemir) [Levemir Vial] 30 units SQ BID #1 units 04/17/18 Isosorbide Mononitrate [Imdur -] 60 mg PO DAILY #30 tab.sr.24h 04/17/18 Medical Supply, Miscellaneous 1 each MC DAILY #1 each 04/17/18 [Blood Pressure Cuff] Miscellaneous Medical Supply 1 each NR ASDIR #1 kit 04/17/18 [Glucometer Device] Miscellaneous Medical Supply 1 each NR ASDIR #1 box 04/17/18 [Glucometer Test Strips #100] Nifedipine ER [Procardia XL -] 120 mg PO DAILY #60 tab.er.24 04/17/18 Pt states that he is on the same meds he was d/c on previously. REVIEW OF SYSTEMS CONSTITUTIONAL: Absent: fever, chills, diaphoresis, generalized weakness, malaise, loss of appetite, weight change HEENT: Absent: rhinorrhea, nasal congestion, throat pain, throat swelling, difficulty swallowing, mouth swelling, ear pain, eye pain, visual changes CARDIOVASCULAR: Absent: chest pain, syncope, palpitations, irregular heart rate, lightheadedness , peripheral edema RESPIRATORY: +SOB Absent: cough, shortness of breath, dyspnea with exertion, orthopnea, wheezing, stridor, hemoptysis GASTROINTESTINAL: Absent: abdominal pain, abdominal distension, nausea, vomiting, diarrhea, constipation, melena, hematochezia GENITOURINARY: Absent: dysuria, frequency, urgency, hesitancy, hematuria, flank pain, genital pain MUSCULOSKELETAL: Absent: myalgia, arthralgia, joint swelling, back pain, neck pain SKIN: Absent: rash, itching, pallor HEMATOLOGIC/IMMUNOLOGIC: Absent: easy bleeding, easy bruising, lymphadenopathy, frequent infections ENDOCRINE: Absent: unexplained weight gain, unexplained weight loss, heat intolerance, cold intolerance NEUROLOGIC: Absent: headache, focal weakness or paresthesias, dizziness, unsteady gait, seizure, mental status changes, bladder or bowel incontinence PSYCHIATRIC: Absent: anxiety, depression, suicidal or homicidal ideation, hallucinations. PHYSICAL EXAMINATION Vital Signs - 24 hr 07/01/18 07/01/18 06:41 11:31 Temperature 98.7 F Pulse Rate 117 H Pulse Rate [ 107 H Apical] Respiratory 22 H 20 Rate Blood Pressure 169/86 Blood Pressure 191/123 H [Right Arm] O2 Sat by Pulse 96 97 Oximetry (%) GENERAL: Sitting up comfortably. Awake, alert, and fully oriented, in no acute distress. HEAD: Normal with no signs of trauma. EYES: Pupils equal, round and reactive to light, extraocular movements intact, sclera anicteric, conjunctiva clear. EARS, NOSE, THROAT: Ears normal, nares patent, oropharynx clear without exudates. Moist mucous membranes. NECK: Normal range of motion, supple LUNGS: +bibasilar crackles. no accessory m usage. HEART: Regular rate and rhythm, normal S1 and S2 without murmur, rub or gallop. ABDOMEN: Soft, obese, nontender, not distended, normoactive bowel sounds LOWER EXTREMITIES: 2+ pt pulses, warm, well-perfused. No calf tenderness. 1+ pitting edema b/l NEUROLOGICAL: Cranial nerves II-XII intact. 5/5 motor strength UE, LE. sensation intact PSYCHIATRIC: Cooperative. SKIN: Warm, dry Laboratory Results - last 24 hr 07/01/18 07/01/18 08:46 08:46 WBC 11.2 H RBC 3.83 L Hgb 11.5 L Hct 36.3 MCV 94.7 MCH 30.0 MCHC 31.6 L RDW 14.8 Plt Count 399 MPV 7.2 L D Absolute Neuts (auto) 8.2 H Neutrophils % 73.7 D Lymphocytes % 16.5 D Monocytes % 7.7 D Eosinophils % 1.3 D Basophils % 0.8 Nucleated RBC % 0 Sodium 138 Potassium 4.9 Chloride 106 Carbon Dioxide 25 Anion Gap 7 L BUN 20 H Creatinine 1.5 H Est GFR (CKD-EPI)AfAm 59.05 Est GFR (CKD-EPI)NonAf 50.95 Random Glucose 144 H Calcium 9.1 Total Bilirubin 0.4 AST 20 ALT 27 Alkaline Phosphatase 156 H Creatine Kinase 98 Troponin I 0.16 H B-Natriuretic Peptide 1714.0 H Total Protein 7.2 Albumin 3.2 L CXR: +cardiomegaly, R perihilar infiltrate. chronic atelectasis L base. minor blunting costophrenic angles. EKG: +sinus tach, rate 105bpm, qtc 483ms. no acute st-t wave changes. similar to previous, except w/PVC's ASSESSMENT/PLAN: 58 y/o M with hx HTN, CAD (3x [place], denies stent), CKD, DM, COPD, polysubstance abuse (cocaine), who presents to the ED c/o SOB that started this morning. #HTN urgency likely 2/2 non-compliance -pt with elevated BP into 200/100's on presentation. -ordered stat doses of home meds, as has not taken in 1 day. -if does not improve, will need to retitrate doses. do not drop BP quickly to avoid ischemic events -c/w procardia, hydralazine, imdur -hold coreg as pt recently used cocaine. no BB -cont w/close BP monitoring -tele monitoring #Demand ischemia likely 2/2 HTN urgency -trop 0.16>0.16. cont to trend. -without EKG changes #SOB 2/2 acute on chronic diastolic CHF -without significant vol overload currently. not requiring 02. sat well -c/w lasix 40mg IVP qd -will not repeat ECHO at this time as had recently (03/2018) -strict i/o, na 2g control, daily wts #COPD -not requiring 02 -c/w duonebs, nebs PRN #HLD -c/w lipitor #CKD -at baseline Cr -cont to monitor, as cont on lasix #IDDM -c/w ISS, BGM ACHS -f/u repeat a1c -on levemir 30 sq bid at home can restart tomorrow. will manage w/ISS for now unless BG increases #Cocaine use -hold coreg as above -f/u utox to check for other ingestions -consider outpt detox f/u #F/E/N no IVF at this time continue to follow lytes na controlled, diabetic, cholesterol controlled diet #PPX DVT: Hep 5k SQ TID #Dispo admit to tele Visit type - Emergency Visit Emergency Visit: Yes ED Registration Date: 07/01/18 Care time: The patient presented to the Emergency Department on the above date and was hospitalized for further evaluation of their emergent condition. - New Patient This patient is new to me today: Yes Date on this admission: 07/01/18 - Critical Care Critical Care patient: No
[2018-07-01] MEDS ORDERED: ALBUTEROL SO4 0.083% IH SOL 2.5 MG/3 ML VIAL.NEB. NEB PRN (12:36)
[2018-07-01] MEDS ORDERED: HEPARIN NA (PORCINE) 5,000 UNITS/ML 1ML VIAL ONE (13:14)
[2018-07-01] MEDS: HEPARIN NA (PORCINE) 5,000 UNITS/ML 1ML VIAL SQ SCH ×2 (13:19→22:42)
[2018-07-01 13:34] LABS: METHADONE, UR NEGATIVE ng/ml (CUTOFF=300); OPIATES, URI NEGATIVE ng/ml (CUTOFF=300); PHENCYCLIDINE,URINE NEGATIVE ng/ml (CUTOFF=25); URINE AMPHETAMINES NEGATIVE ng/ml (CUTOFF=500); URINE BARBITURATES NEGATIVE ng/ml (CUTOFF=200); URINE BENZODIAZEPINES NEGATIVE ng/ml (CUTOFF=200)
[2018-07-01 13:42] LABS: COCAINE, UR POSITIVE ng/ml (CUTOFF=300)
--- NOTE | 2018-07-01 16:20 | PN ---
Teaching Attending Note Name of Resident: Ev Toth ATTENDING PHYSICIAN STATEMENT I saw and evaluated the patient. I reviewed the resident's note and discussed the case with the resident. I agree with the resident's findings and plan as documented. SUBJECTIVE: Dyspnea improving. Cough +. No fever/chills. No hemoptysis. OBJECTIVE: Afebrile, Hemodynamically Stable. Last Vital Signs Temp Pulse Resp BP Pulse Ox 98.7 F 105 H 20 160/95 97 07/01/18 06:41 07/01/18 15:10 07/01/18 15:10 07/01/18 15:10 07/01/18 15:10 HEENT - Atraumatic, Normocephalic. Heart - S1, S2, RRR Lungs - bibasal crackles. Abdomen - Soft, non-tender, mild distension. Bowel Sounds normal. Extremities - bilateral edema+ Laboratory Results - last 24 hr 07/01/18 07/01/18 07/01/18 08:46 08:46 08:46 WBC 11.2 H RBC 3.83 L Hgb 11.5 L Hct 36.3 MCV 94.7 MCH 30.0 MCHC 31.6 L RDW 14.8 Plt Count 399 MPV 7.2 L D Absolute Neuts (auto) 8.2 H Neutrophils % 73.7 D Lymphocytes % 16.5 D Monocytes % 7.7 D Eosinophils % 1.3 D Basophils % 0.8 Nucleated RBC % 0 Sodium 138 Potassium 4.9 Chloride 106 Carbon Dioxide 25 Anion Gap 7 L BUN 20 H Creatinine 1.5 H Est GFR (CKD-EPI)AfAm 59.05 Est GFR (CKD-EPI)NonAf 50.95 Random Glucose 144 H Hemoglobin A1c % 7.4 H Calcium 9.1 Total Bilirubin 0.4 AST 20 ALT 27 Alkaline Phosphatase 156 H Creatine Kinase 98 Troponin I 0.16 H B-Natriuretic Peptide 1714.0 H Total Protein 7.2 Albumin 3.2 L Opiates Screen Methadone Screen Barbiturate Screen Phencyclidine Screen Ur Amphetamines Screen MDMA (Ecstasy) Screen Benzodiazepines Screen Cocaine Screen U Marijuana (THC) Screen 07/01/18 07/01/18 12:10 14:30 WBC RBC Hgb Hct MCV MCH MCHC RDW Plt Count MPV Absolute Neuts (auto) Neutrophils % Lymphocytes % Monocytes % Eosinophils % Basophils % Nucleated RBC % Sodium Potassium Chloride Carbon Dioxide Anion Gap BUN Creatinine Est GFR (CKD-EPI)AfAm Est GFR (CKD-EPI)NonAf Random Glucose Hemoglobin A1c % Calcium Total Bilirubin AST ALT Alkaline Phosphatase Creatine Kinase Troponin I 0.16 H B-Natriuretic Peptide Total Protein Albumin Opiates Screen Negative Methadone Screen Negative Barbiturate Screen Negative Phencyclidine Screen Negative Ur Amphetamines Screen Negative MDMA (Ecstasy) Screen Negative Benzodiazepines Screen Negative Cocaine Screen Positive A* U Marijuana (THC) Screen Negative Current Medications Generic Name Dose Route Start Last Admin Trade Name Freq PRN Reason Stop Dose Admin Albuterol Sulfate 1 amp 07/01/18 12:36 Ventolin 0.083% Nebulizer Soln - NEB Q4H PRN SHORT OF BREATH/WHEEZING Albuterol/Ipratropium 1 amp 07/01/18 08:00 07/01/18 13:19 Duoneb - NEB 1 amp RTID PUSHPA Administration Aspirin 81 mg 07/02/18 10:00 Asa - PO DAILY PUSHPA Atorvastatin Calcium 40 mg 07/01/18 22:00 Lipitor - PO HS PUSHPA Furosemide 40 mg 07/02/18 10:00 Lasix Injection - IVPUSH DAILY PUSHPA Heparin Sodium (Porcine) 5,000 unit 07/01/18 14:00 07/01/18 13:19 Heparin - SQ 5,000 unit TID PUSHPA Administration Hydralazine HCl 100 mg 07/01/18 11:45 07/01/18 11:55 Apresoline - PO 100 mg TID PUSHPA Administration Insulin Aspart 1 vial 07/01/18 16:30 Novolog Vial Sliding Scale - SQ ACHS PUSHPA Protocol Isosorbide Mononitrate 60 mg 07/01/18 12:00 07/01/18 12:07 Imdur - PO 60 mg DAILY PUSHPA Administration Nifedipine 120 mg 07/01/18 12:00 07/01/18 12:07 Procardia Xl - PO 120 mg DAILY PUSHPA Administration ASSESSMENT AND PLAN: 58 year old male with history of HTN, CAD s/p ID x 3, CKD 3, DM 2, COPD, Polysubstance Abuse (Alcohol, Cocaine), presents with increasing SOB and LE edema, found to have hypertensive urgency after runing out of home anti- hypertensive medications. CXR: Cardiomegaly, R yumiko-hilar infiltrate, Chronic atelectasis L base 1. Chronic Diastolic CHF sec to Hypertensive Urgency Due to medication non-compliance. Recent Echo 2/19 - Grade II Diastolic Dysfunction Received IV Lasix in ED Resumed on home anti-hypertensive medication including Procardia, Hydralazine, Imdur along with IV Lasix diuresis. Coreg held due to active cocaine use. Telemonitoring Strict I/Os and daily weights. 2. Demand Ischemia secondary to Hypertenisve Urgency/acute diastolic CHF Troponin elevated but flat at 0.16 No acute ECG changes Cardiology consultation 3. COPD - Stable. DuoNebs prn. 4. HLD - continue Lipitor. 5. DM 2, uncontrolled, A1C 7.4 - Continue Levemir and Novolog sliding scale. 6. Polysubstance Abuse (Cocaine, Alcohol) No evidence of alcohol withdrawal Addiction Consult. 7. CKD 3 - Stable. DVT Px - Heparin SQ
[2018-07-01 19:18] VITALS: BMI 35.9
[2018-07-01 21:36] VITALS: TEMP 98.2
[2018-07-01] MEDS: INSULIN SLIDING SCALE (NOVOLOG) 1 VIAL SQ SCH (21:47)
[2018-07-01] MEDS ORDERED: ATORVASTATIN CA 40 MG TABLET (FP) PO SCH (22:00)
[2018-07-02] MEDS: INSULIN SLIDING SCALE (NOVOLOG) 1 VIAL SQ SCH ×2 (06:14→11:21)
[2018-07-02] MEDS: HEPARIN NA (PORCINE) 5,000 UNITS/ML 1ML VIAL SQ SCH ×2 (06:14→14:19)
[2018-07-02] MEDS: hydrALAZINE HCL 50 MG TABLET (FP) PO SCH ×2 (06:14→14:18)
[2018-07-02] MEDS ORDERED: INSULIN (LEVEMIR) 100 UNITS/ML UNITS SQ SCH (07:00)
[2018-07-02 07:15] LABS: EOS % 1.9 % (0-4.5); HEMATOCRIT 34.4 % (35.4-49); HEMOGLOBIN 10.9 GM/dL (11.7-16.9); MCH 29.7 pg (25.7-33.7); MCHC 31.8 g/dl (32.0-35.9); MEAN CELL VOLUME 93.3 fl (80-96); MEAN PLT VOLUME 7.1 fl (7.5-11.1); MONO % 6.5 % (3.8-10.2); NEUT % 76.6 % (42.8-82.8); PLATELET COUNT 439 K/MM3 (134-434); RBC 3.69 M/mm3 (4.00-5.60); RDW 14.7 % (11.9-15.9); WHITE BLOOD COUNT 9.3 K/mm3 (4.0-10.0)
[2018-07-02] MEDS: ALBUTEROL SO4 2.5/IPRATROPIUM 0.5 INH SOL 3 ML VIAL.NEB. NEB SCH (07:40)
[2018-07-02 07:55] LABS: ALBUMIN 3.1 g/dl (3.4-5.0); BILIRUBIN,TOTAL 0.9 mg/dL (0.2-1); CALCIUM 8.9 mg/dL (8.5-10.1); CREATININE 1.4 mg/dL (0.55-1.3); MAGNESIUM 2.2 mg/dL (1.8-2.4); PHOSPHOROUS 3.8 mg/dL (2.5-4.9); POTASSIUM 4.3 mmol/L (3.5-5.1); TOT PROT 6.9 g/dl (6.4-8.2)
--- NOTE | 2018-07-02 09:32 | CON.CARD ---
Consult Consult Specialty:: Cardiology Referred by:: Hospitalist Reason for Consultation:: Recurrent dCHF - History of Present Illness Chief Complaint: Dyspnea History of Present Illness: Patient is a 58 year old male with history of bronchial asthma, CAD s/p [place] PCI/ stent, COPD. NIDDM, ischemic dilated cardiomyopathy with history of congestive heart failure, systolic/diastolic LV dysfuntion and substance abuse (Cocaine) in the past who presents with [place], LE edema, orthopnea, cough in context of running out of medications, active smoker, last used cocaine 3 days ago, found to be in hypertensive urgency, received diuresis with symptom improvement, denies chest pain, palpitations, near or true syncope. - History Source History Provided By: Patient Limitations to Obtaining History: No Limitations - Past Medical History Cardio/Vascular: Yes: CAD (S/P PCI), HTN, Hyperlipdemia, [place], Other (dilated cardiomyopathy (nonischemic), LV systolic dysfunction, ) Pulmonary: Yes: Asthma Gastrointestinal: Yes: GERD Renal/: Yes: Renal Inusuff Musculoskeletal: Yes: Chronic low back pain Additional Medical History: Rightt achilles tendon tear. Rightt testicular torsion. Angioedema due to ACEI - Alcohol/Substance Use Hx Alcohol Use: Yes Number of Drinks Daily: 3 (beer) History of Substance Use: reports: Cocaine - Smoking History Smoking history: Current every day smoker Have you smoked in the past 12 months: Yes Aproximately how many cigarettes per day: 3 - Social History ADL: Independent Occupation: Employed History of Recent Travel: No Home Medications - Allergies Allergies/Adverse Reactions: Allergies Allergy/AdvReac Type Severity Reaction Status Date / Time IRMA Inhibitors Allergy Verified 07/01/18 06:59 - Home Medications Home Medications: Ambulatory Orders Aspirin 81 mg PO DAILY 05/10/17 Atorvastatin Ca [Lipitor] 40 mg PO HS 05/10/17 Ergocalciferol [Vitamin D2] 50,000 unit PO FR 05/10/17 Furosemide [Lasix -] 40 mg PO DAILY 05/10/17 Hydralazine HCl 100 mg PO TID 05/10/17 Carvedilol [Coreg -] 25 mg PO BID #60 tablet 10/30/17 Albuterol Sulfate Inhaler - [Ventolin HFA Inhaler -] 1 - 2 inh PO Q4H #1 inhaler 04/17/18 Budesonide/Formeterol Fumarate [SYMBICORT 80/4.5mcg -] 2 puff IH BID #1 inhaler 04/17/18 Insulin (Levemir) [Levemir Vial] 30 units SQ BID #1 units 04/17/18 Isosorbide Mononitrate [Imdur -] 60 mg PO DAILY #30 tab.sr.24h 04/17/18 Medical Supply, Miscellaneous [Blood Pressure Cuff] 1 each MC DAILY #1 each Miscellaneous Medical Supply [Glucometer Device] 1 each NR ASDIR #1 kit Miscellaneous Medical Supply [Glucometer Test Strips #100] 1 each NR ASDIR #1 box 04/17/18 Nifedipine ER [Procardia XL -] 120 mg PO DAILY #60 tab.er.24 04/17/18 Prednisone 10 mg PO DAILY #12 tablet 04/17/18 Family Disease History - Family Disease History Family Disease History: Diabetes: Sister, Other: Brother (DRUGS) Review of Systems - Review of Systems Cardiovascular: reports: Edema Respiratory: reports: Exercise Intolerance, Orthopnea, SOB, SOB on Exertion Vital Signs: Vital Signs Temperature 98.2 F 07/02/18 08:26 Pulse Rate 104 H 07/02/18 08:26 Respiratory Rate 20 07/02/18 08:30 Blood Pressure 139/90 07/02/18 08:26 O2 Sat by Pulse Oximetry (%) 100 07/02/18 08:30 Constitutional: Yes: No Distress, Calm Neck: Yes: Supple Respiratory: Yes: Regular, Diminished Gastrointestinal: Yes: Normal Bowel Sounds, Soft Cardiovascular: Yes: Regular Rate and Rhythm JVD: No Carotid Bruit: No Heart Sounds: Yes: S1, S2 Murmur: Yes: Systolic Murmur, Grade 1 Edema: Yes Edema: LLE: 1+, RLE: 1+ - Other Data Labs, Other Data: CBC, BMP 07/02/18 06:38 07/02/18 06:38 Troponin, BNP 07/01/18 07/01/18 07/01/18 08:46 14:30 20:53 Troponin I 0.16 H 0.16 H 0.15 H B-Natriuretic Peptide 1714.0 H Troponin, BNP 07/01/18 07/01/18 07/01/18 08:46 14:30 20:53 Troponin I 0.16 H 0.16 H 0.15 H B-Natriuretic Peptide 1714.[address] H [address] @ 105 with freq PVC Ejection Fraction %: LVEF > or = 40 % Imaging - Results Chest X-ray: Report Reviewed (Cardiomegaly, R yumiko-hilar infiltrate, Chronic atelectasis L base) Problem List - Problems (1) CHF exacerbation Code(s): I50.9 - HEART FAILURE, UNSPECIFIED Qualifiers: Heart failure type: diastolic Qualified Code(s): I50.33 - Acute on chronic diastolic (congestive) heart failure (2) Cocaine abuse Code(s): F14.10 - COCAINE ABUSE, UNCOMPLICATED (3) Hypertensive urgency Code(s): I16.0 - HYPERTENSIVE URGENCY (4) Shortness of breath Code(s): R06.02 - SHORTNESS OF BREATH (5) Tobacco use Code(s): Z72.0 - TOBACCO USE (6) Acute on chronic diastolic (congestive) heart failure Code(s): I50.33 - ACUTE ON CHRONIC DIASTOLIC (CONGESTIVE) HEART FAILURE (7) CAD (coronary artery disease) Code(s): I25.10 - ATHSCL HEART DISEASE OF [place] CORONARY ARTERY W/O ANG PCTRS Qualifiers: Coronary Disease-Associated Artery/Lesion type: [place] artery [place] vs. transplanted heart: [place] heart Associated angina: without angina Qualified Code(s): I25.10 - Atherosclerotic heart disease of [place] coronary artery without angina pectoris (8) CKD (chronic kidney disease) stage 3, GFR 30-59 ml/min Code(s): N18.3 - CHRONIC KIDNEY DISEASE, STAGE 3 (MODERATE) (9) Diabetes Code(s): E11.9 - TYPE 2 DIABETES MELLITUS WITHOUT COMPLICATIONS Qualifiers: Diabetes mellitus type: type 2 (10) History of myocardial infarction Code(s): I25.2 - OLD MYOCARDIAL INFARCTION (11) Hyperglycemia due to type 2 diabetes mellitus Code(s): E11.65 - TYPE 2 DIABETES MELLITUS WITH HYPERGLYCEMIA Qualifiers: Diabetes mellitus long-term insulin use: without long-term use Qualified Code(s): E11.65 - Type 2 diabetes mellitus with hyperglycemia (12) Hyperlipidemia Code(s): E78.5 - HYPERLIPIDEMIA, UNSPECIFIED Qualifiers: Hyperlipidemia type: pure hypercholesterolemia Qualified Code(s): E78.00 - Pure hypercholesterolemia, unspecified Assessment/Plan 04/13/2018 Echo: Normal LV size and fxn with mild cLVH, grade II diastolic dysfunction, mod LAE, mild MR, mild AR 10/27/2017 Echo: Mild cLVH, normal RV and LV size and fxn, mild-mod MR, mild AR 10/29/2017 Regadenoson stress: Large inferior, inferolateral and apical infarct without ischemia, LVEF 29% 1. Recurrent acute on chronic diastolic heart failure referable to 2. Hypertensive urgency due to medication noncompliance 3. CAD and history of [place], PCI/stent with demand ischemia 4. PVC 5. COPD h/o exacerbation 6. Hypercholesterolemia 7. DM not well controlled 7.4% 8. Acute on CKD3 resolving 9. Substance abuse (Cocaine) 10. History of angioedema due to ACEI PLAN: 1. IV diuresis and monitor for diuretic response, renal fxn and electrolytes 2. Resume Carvedilol 6.25 bid, Hydralazine 100 tid, ASA 81 qd, Lipitor 40 qhs, Procardia XL 120 qd, Imdur 60 qd and uptitrate as tolerated 3. DVT prophylaxis with Lovenox 4. Troponins have plateuaed 5. BD, O2 as needed, addressed importance of diet and medication compliance 6. Thank you for consultative opportunity
[2018-07-02] MEDS: NIFEdipine E.R 60 MG TABLET (UD) PO SCH (09:34)
[2018-07-02] MEDS: ISOSORBIDE MONONITRATE 60 MG TAB.SR.24H (FP) PO SCH (09:34)
[2018-07-02] MEDS ORDERED: ASPIRIN 81 MG CHEWABLE TABLETS PO SCH (10:00)
[2018-07-02] MEDS ORDERED: FUROSEMIDE 40 MG/4 ML INJECTABLE VIAL IVPUSH SCH (10:00)
[2018-07-02] MEDS ORDERED: CARVEDILOL 6.25 MG TABLET (FP) PO SCH (12:00)
[2018-07-02] MEDS ORDERED: FUROSEMIDE 40 MG/4 ML INJECTABLE VIAL IVPUSH ONE (14:00)
--- NOTE | 2018-07-02 14:03 | PN ---
Teaching Attending Note Name of Resident: Dimitrios Rosa ATTENDING PHYSICIAN STATEMENT I saw and evaluated the patient. I reviewed the resident's note and discussed the case with the resident. I agree with the resident's findings and plan as documented. SUBJECTIVE: Dyspnea much improved. No fever/chills. No hemoptysis. OBJECTIVE: Afebrile, Hemodynamically Stable. Last Vital Signs Temp Pulse Resp BP Pulse Ox 98.2 F 104 H 20 139/90 100 07/02/18 08:26 07/02/18 08:26 07/02/18 08:30 07/02/18 08:26 07/02/18 08:30 Heart - S1, S2, RRR Lungs - few bibasal crackles. Abdomen - Soft, non-tender, mild distension. Bowel Sounds normal. Extremities - bilateral edema improving Laboratory Results - last 24 hr 07/01/18 07/01/18 07/01/18 14:30 20:53 21:42 WBC RBC Hgb Hct MCV MCH MCHC RDW Plt Count MPV Absolute Neuts (auto) Neutrophils % Lymphocytes % Monocytes % Eosinophils % Basophils % Nucleated RBC % Sodium Potassium Chloride Carbon Dioxide Anion Gap BUN Creatinine Est GFR (CKD-EPI)AfAm Est GFR (CKD-EPI)NonAf POC Glucometer 240 Random Glucose Calcium Phosphorus Magnesium Total Bilirubin AST ALT Alkaline Phosphatase Troponin I 0.16 H 0.15 H Total Protein Albumin 07/02/18 07/02/18 07/02/18 06:07 06:38 06:38 WBC 9.3 RBC 3.69 L Hgb 10.9 L Hct 34.4 L MCV 93.3 MCH 29.7 MCHC 31.8 L RDW 14.7 Plt Count 439 H MPV 7.1 L Absolute Neuts (auto) 7.1 Neutrophils % 76.6 Lymphocytes % 14.0 Monocytes % 6.5 Eosinophils % 1.9 Basophils % 1.0 Nucleated RBC % 0 Sodium 138 Potassium 4.3 Chloride 105 Carbon Dioxide 26 Anion Gap 7 L BUN 20 H Creatinine 1.4 H Est GFR (CKD-EPI)AfAm 64.18 Est GFR (CKD-EPI)NonAf 55.38 POC Glucometer 239 Random Glucose 223 H Calcium 8.9 Phosphorus 3.8 Magnesium 2.2 Total Bilirubin 0.9 AST 12 L ALT 22 Alkaline Phosphatase 135 H Troponin I Total Protein 6.9 Albumin 3.1 L 07/02/18 11:18 WBC RBC Hgb Hct MCV MCH MCHC RDW Plt Count MPV Absolute Neuts (auto) Neutrophils % Lymphocytes % Monocytes % Eosinophils % Basophils % Nucleated RBC % Sodium Potassium Chloride Carbon Dioxide Anion Gap BUN Creatinine Est GFR (CKD-EPI)AfAm Est GFR (CKD-EPI)NonAf POC Glucometer 306 Random Glucose Calcium Phosphorus Magnesium Total Bilirubin AST ALT Alkaline Phosphatase Troponin I Total Protein Albumin Current Medications Generic Name Dose Route Start Last Admin Trade Name Freq PRN Reason Stop Dose Admin Albuterol Sulfate 1 amp 07/01/18 12:36 Ventolin 0.083% Nebulizer Soln - NEB Q4H PRN SHORT OF BREATH/WHEEZING Albuterol/Ipratropium 1 amp 07/01/18 08:00 07/02/18 07:40 Duoneb - NEB 1 amp RTID PUSHPA Administration Aspirin 81 mg 07/02/18 10:00 07/02/18 09:34 Asa - PO 81 mg DAILY PUSHPA Administration Atorvastatin Calcium 40 mg 07/01/18 22:00 07/01/18 23:33 Lipitor - PO 40 mg HS PUSHPA Administration Carvedilol 6.25 mg 07/02/18 12:00 Coreg - PO BID PUSHPA Furosemide 40 mg 07/02/18 10:00 07/02/18 09:34 Lasix Injection - IVPUSH 40 mg DAILY PUSHPA Administration Furosemide 40 mg 07/02/18 14:00 Lasix Injection - IVPUSH 07/02/18 14:01 ONCE ONE Heparin Sodium (Porcine) 5,000 unit 07/01/18 14:00 07/02/18 06:14 Heparin - SQ 5,000 unit TID PUSHPA Administration Hydralazine HCl 100 mg 07/01/18 11:45 07/02/18 06:14 Apresoline - PO 100 mg TID PUSHPA Administration Insulin Aspart 1 vial 07/01/18 16:30 07/02/18 11:21 Novolog Vial Sliding Scale - SQ 8 units ACHS PUSHPA Administration Protocol Insulin Detemir 30 units 07/02/18 07:00 07/02/18 08:34 Levemir Vial SQ 30 units AM PUSHPA Administration Isosorbide Mononitrate 60 mg 07/01/18 12:00 07/02/18 09:34 Imdur - PO 60 mg DAILY PUSHPA Administration Nifedipine 120 mg 07/01/18 12:00 07/02/18 09:34 Procardia Xl - PO 120 mg DAILY PUSHPA Administration ASSESSMENT AND PLAN: 58 year old male with history of HTN, CAD s/p [place] x 3, CKD 3, DM 2, COPD, Polysubstance Abuse (Alcohol, Cocaine), presents with increasing SOB and LE edema, found to have hypertensive urgency after running out of home anti- hypertensive medications. CXR: Cardiomegaly, R yumiko-hilar infiltrate, Chronic atelectasis L base 1. Acute on Chronic Diastolic CHF sec to Hypertensive Urgency - resolved. Secondary to medication non-compliance (ran out of meds for 2-3 days). Recent Echo 04/13 - Grade II Diastolic Dysfunction Responded to IV Lasix diuresis and BP control. Resumed on home anti-hypertensive medication including Procardia, Hydralazine, Imdur. Evaluated by Cardiology and recommended to continue Coreg. Medically and Hemodynamically Stable for discharge with Cardiology and PCP follow ups. 2. Demand Ischemia secondary to Hypertenisve Urgency/acute diastolic CHF Troponin elevated but flat at 0.16 No acute ECG changes Cardiology evaluated - no further evaluation as in-patient - for out-patient follow up. 3. COPD - Stable. DuoNebs prn. 4. HLD - continue Lipitor. 5. DM 2, uncontrolled, A1C 7.4 - Continue Metformin and Levemir. 6. Polysubstance Abuse (Cocaine, Alcohol) No evidence of alcohol withdrawal 7. CKD 3 - Stable. DVT Px - Heparin SQ Medically Stable for discharge - prescriptions sent to pharmacy - importance of medication compliance and physician follow up impressed on patient.
--- NOTE | 2018-07-02 14:09 | DS ---
Physical Exam: SUBJECTIVE: Patient seen and examined OBJECTIVE: Vital Signs Period Temp Pulse Resp BP Sys/Caal Pulse Ox Last 24 Hr 98.0 F-98.6 F 94-108 18-20 137-160/90-106 97-100 PHYSICAL EXAM GENERAL: The patient is awake, alert, and fully oriented, in no acute distress. HEAD: Normal with no signs of trauma. EYES: PERRL, extraocular movements intact, sclera anicteric, conjunctiva clear. ENT: Ears normal, nares patent, oropharynx clear without exudates, moist mucous membranes. NECK: Trachea midline, full range of motion, supple. LUNGS: Breath sounds equal, clear to auscultation bilaterally, no wheezes, no crackles, no accessory muscle use. HEART: Regular rate and rhythm, S1, S2 without murmur, rub or gallop. ABDOMEN: Soft, nontender, nondistended, normoactive bowel sounds, no guarding, no rebound, no hepatosplenomegaly, no masses. EXTREMITIES: 2+ pulses, warm, well-perfused, no edema. NEUROLOGICAL: Cranial nerves II through XII grossly intact. Normal speech, gait not observed. PSYCH: Normal mood, normal affect. SKIN: Warm, dry, normal turgor, no rashes or lesions noted. LABS Laboratory Results - last 24 hr 07/01/18 07/01/18 07/01/18 14:30 20:53 21:42 WBC RBC Hgb Hct MCV MCH MCHC RDW Plt Count MPV Absolute Neuts (auto) Neutrophils % Lymphocytes % Monocytes % Eosinophils % Basophils % Nucleated RBC % Sodium Potassium Chloride Carbon Dioxide Anion Gap BUN Creatinine Est GFR (CKD-EPI)AfAm Est GFR (CKD-EPI)NonAf POC Glucometer 240 Random Glucose Calcium Phosphorus Magnesium Total Bilirubin AST ALT Alkaline Phosphatase Troponin I 0.16 H 0.15 H Total Protein Albumin 07/02/18 07/02/18 07/02/18 06:07 06:38 06:38 WBC 9.3 RBC 3.69 L Hgb 10.9 L Hct 34.4 L MCV 93.3 MCH 29.7 MCHC 31.8 L RDW 14.7 Plt Count 439 H MPV 7.1 L Absolute Neuts (auto) 7.1 Neutrophils % 76.6 Lymphocytes % 14.0 Monocytes % 6.5 Eosinophils % 1.9 Basophils % 1.0 Nucleated RBC % 0 Sodium 138 Potassium 4.3 Chloride 105 Carbon Dioxide 26 Anion Gap 7 L BUN 20 H Creatinine 1.4 H Est GFR (CKD-EPI)AfAm 64.18 Est GFR (CKD-EPI)NonAf 55.38 POC Glucometer 239 Random Glucose 223 H Calcium 8.9 Phosphorus 3.8 Magnesium 2.2 Total Bilirubin 0.9 AST 12 L ALT 22 Alkaline Phosphatase 135 H Troponin I Total Protein 6.9 Albumin 3.1 L 07/02/18 11:18 WBC RBC Hgb Hct MCV MCH MCHC RDW Plt Count MPV Absolute Neuts (auto) Neutrophils % Lymphocytes % Monocytes % Eosinophils % Basophils % Nucleated RBC % Sodium Potassium Chloride Carbon Dioxide Anion Gap BUN Creatinine Est GFR (CKD-EPI)AfAm Est GFR (CKD-EPI)NonAf POC Glucometer 306 Random Glucose Calcium Phosphorus Magnesium Total Bilirubin AST ALT Alkaline Phosphatase Troponin I Total Protein Albumin HOSPITAL COURSE: Date of Admission:07/01/18 Date of Discharge: 07/02/18 Discharge Summary Reason For Visit: SOB Current Active Problems CHF exacerbation (Acute) Condition: Improved - Instructions Diet, Activity, Other Instructions: You came in for shortness of breath and leg swelling because of running out of medications and cocaine use. Please STOP using cocaine, this will further damage your heart. Please resume your home medications as they were prescribed. We have sent refills on all your medications to your pharmacy. Please follow up with your PCP within 1 week and have your labs (including chemistry), sent to your PCP's office. Please return to the ED if you are having worsening chest pain, shortness of breath, swelling or any other concerning symptoms. Referrals: Lenny Hernandez MD [Primary Care Provider] - 1 Week Nils oR MD [Staff Physician] - 1 Week Disposition: HOME - Home Medications Comprehensive Discharge Medication List: Ambulatory Orders Hydralazine HCl 100 mg PO TID 05/10/17 Albuterol Sulfate Inhaler - [Ventolin HFA Inhaler -] 1 - 2 inh PO Q4H #1 inhaler 07/02/18 Aspirin 81 mg PO DAILY #30 tab.chew 07/02/18 Atorvastatin Ca [Lipitor] 40 mg PO HS #30 tablet 07/02/18 Budesonide/Formeterol Fumarate [SYMBICORT 80/4.5mcg -] 2 puff IH BID #1 inhaler 07/02/18 Carvedilol [Coreg -] 6.25 mg PO BID #60 tablet 07/02/18 Diltiazem HCl [Diltiazem 24Hr Cd] 240 mg PO DAILY #30 cap.er.24h 07/02/18 Ergocalciferol [Vitamin D2] 50,000 unit PO FR #30 capsule 07/02/18 Furosemide [Lasix -] 40 mg PO DAILY #30 tablet 07/02/18 Insulin (Levemir) [Levemir Vial] 30 units SQ BID #1 units 07/02/18 Isosorbide Mononitrate [Imdur -] 60 mg PO DAILY #30 tab.sr.24h 07/02/18 Medical Supply, Miscellaneous [Blood Pressure Cuff] 1 each MC DAILY #1 each 12/11 Metformin HCl [Glucophage] 1,000 mg PO BID #60 tablet 07/02/18 Miscellaneous Medical Supply [Glucometer Device] 1 each NR ASDIR #1 kit Miscellaneous Medical Supply [Glucometer Test Strips #100] 1 each NR ASDIR #1 box 07/02/18 Nifedipine ER [Procardia XL -] 120 mg PO DAILY #60 tab.er.24 07/02/18
[2018-07-02 14:18] VITALS: PULSE 100
--- NOTE | 2018-07-02 15:03 | EKG ---
Test Reason : Blood Pressure : / mmHG Vent. Rate : 105 BPM Atrial Rate : 105 BPM P-R Int : 168 ms QRS Dur : 098 ms QT Int : 366 ms P-R-T Axes : 050 -14 078 degrees QTc Int : 483 ms SINUS TACHYCARDIA WITH FREQUENT PREMATURE VENTRICULAR COMPLEXES POSSIBLE LEFT ATRIAL ENLARGEMENT NONSPECIFIC T WAVE ABNORMALITY ABNORMAL ECG WHEN COMPARED WITH ECG OF 12-APR-2018 23:44, PREMATURE VENTRICULAR COMPLEXES ARE NOW PRESENT T WAVE AMPLITUDE HAS INCREASED IN ANTERIOR LEADS Confirmed by LETTY JSEUS MD ([id number]) on 07/02/2018 3:03:04 PM Referred By: Confirmed By:LETTY JESUS MD
[2018-07-02 15:30] VITALS: BP 130/87
== END 2018-07-02 16:14 | disposition home or self-care (01) | DRG 199 ==
LOC: JER 06:41 → JERBED 10:47 → J4W 15:43
DX: I16.0 Hypertensive urgency (principal); I13.0 Hypertensive heart and chronic kidney disease with heart failure and stage 1 through stage 4 chronic kidney disease, or unspecified chronic kidney disease; I50.33 Acute on chronic diastolic (congestive) heart failure; E11.22 Type 2 diabetes mellitus with diabetic chronic kidney disease; I24.8 Other forms of acute ischemic heart disease; I42.8 Other cardiomyopathies; E11.65 Type 2 diabetes mellitus with hyperglycemia; N18.3 Chronic kidney disease, stage 3 (moderate); Z91.14 Patient's other noncompliance with medication regimen; F14.10 Cocaine abuse, uncomplicated; F17.210 Nicotine dependence, cigarettes, uncomplicated; Z79.4 Long term (current) use of insulin; J44.9 Chronic obstructive pulmonary disease, unspecified; E78.5 Hyperlipidemia, unspecified; I25.2 Old myocardial infarction; I25.10 Atherosclerotic heart disease of native coronary artery without angina pectoris; Z95.5 Presence of coronary angioplasty implant and graft; F10.10 Alcohol abuse, uncomplicated
CPT/HCPCS: 36415; 71046-TC-FY; 80053; 80307; 82550; 82962; 83036; 83735; 83880; 84100; 84484; 85025; 93005; 93010; 94640; 99283-25; J1644

== ENCOUNTER 2018-08-05 10:47 | Inpatient (IN) | payer OTHER | END 2018-08-17 13:51 | disposition home or self-care (01) | LOC: J8W 08-09 17:19 → JICU 08-09 17:21 → JER 10:47 → JERBED 13:31 → JICU 20:39 ==

== ENCOUNTER 2018-09-04 21:22 | Emergency (ER) | payer OTHER ==
[2018-09-04 21:36] VITALS: BP 140/89; PULSE 99; TEMP 98.5; BMI 33.5
--- NOTE | 2018-09-04 22:01 | PDOC ---
History of Present Illness - General Chief Complaint: Lightheaded Stated Complaint: HEADACHE Time Seen by Provider: 09/04/18 21:56 History Source: Patient - History of Present Illness Initial Comments: 09/04/18 22:28 Mr. Ernandez is a 58 y/o man with hx of polysubstance use (cocaine), HTN, HLD, DM, COPD, CHF, prior [place], recent hospitalization 08/12/2018 for chest pain/SOB hospital course complicated by TIA with following R carotid endarterectomy, presenting for 2-3 hours of dizziness, headache, and vision change (now resolved ) while at a picnic. He reports that his last food intake was breakfast at approx 0800, and endorses drinking alcohol at the picnic. He reports being unsure of how much, but states having "a lot" of beer and mixed drinks. He denies feeling intoxicated, and denies any drug use today. He reports that the headache is localized to the back of his head, and rates it a 6/10. He reports feeling his vision become blurry while at the picnic and becoming concerned for both his blood pressure and his blood sugar but reports that his vision is now back to normal. He reports that the isa for his carotid endarterectomy were removed yesterday. He also endorses ongoing chronic, debilitating R knee pain, as well as some RUQ pain that he noticed today. He denies any weakness, confusion, sensory changes, difficulty swallowing, new paresthesias, chest pain , or shortness of breath. Last echocardiogram - during recent admission - EF = 50-55% 09/04/18 22:49 Timing/Duration: 1-3 hours Severity: mild, moderate Associated Symptoms: reports: headaches (Back of head, 6/10). denies: chest pain, fever/chills, rash, shortness of breath, syncope, weakness Past History - Past Medical History Allergies/Adverse Reactions: Allergies Allergy/AdvReac Type Severity Reaction Status Date / Time IRMA Inhibitors Allergy Verified 08/05/18 10:54 Home Medications: Ambulatory Orders Albuterol Sulfate Inhaler - [Ventolin HFA Inhaler -] 1 - 2 inh PO Q4H #1 inhaler 07/02/18 Budesonide/Formeterol Fumarate [SYMBICORT 80/4.5mcg -] 2 puff IH BID #1 inhaler 07/02/18 Furosemide [Lasix -] 40 mg PO DAILY #30 tablet 07/02/18 Isosorbide Mononitrate [Imdur -] 60 mg PO DAILY #30 tab.sr.24h 07/02/18 Medical Supply, Miscellaneous [Blood Pressure Cuff] 1 each MC DAILY #1 each 12/11 Hydralazine HCl 100 mg PO TID 08/09/18 Aspirin Coated [Ecotrin -] 325 mg PO DAILY #30 tablet.dr 08/17/18 Atorvastatin Ca [Lipitor] 80 mg PO HS #30 tablet 08/17/18 Carvedilol [Coreg -] 25 mg PO BID #60 tablet 08/17/18 Insulin (Levemir) [Levemir Vial] 20 unit SQ HS #1 vial 08/17/18 Insulin (Levemir) [Levemir Vial] 40 unit SQ AM #1 vial 08/17/18 Nifedipine ER [Procardia XL -] 60 mg PO DAILY #30 tab.er.24 08/17/18 Spironolactone [Aldactone -] 50 mg PO DAILY #30 tablet 08/17/18 Anemia: No Asthma: Yes Cancer: No Cardiac Disorders: Yes (ACS, CAD - s/p PCI/Stents, [place] X3, non-ischemic Cardiomyopathy,) CVA: Yes (2019) COPD: Yes CHF: Yes (Diastolic CHF) DVT: No Dementia: No Diabetes: Yes GI Disorders: No Disorders: No HTN: Yes Hypercholesterolemia: Yes Kidney Stones: No Liver Disease: No Seizures: No Thyroid Disease: No - Surgical History Abdominal Surgery: No Appendectomy: No Cardiac Surgery: Yes (Carotid endareterectomy) Cholecystectomy: No Lung Surgery: No Neurologic Surgery: No Orthopedic Surgery: Yes (Old injury fractured left ankle x2) - Reproductive History Testicular Surgery: No - Immunization History Immunization Up to Date: Yes - Suicide/Smoking/Psychosocial Hx Smoking Status: No Smoking History: Never smoked Have you smoked in the past 12 months: No Number of Cigarettes Smoked Daily: 3 'Breaking Loose' booklet given: 04/13/18 Hx Alcohol Use: No Drug/Substance Use Hx: No Substance Use Type: Cocaine Hx Substance Use Treatment: No Review of Systems - Review of Systems Able to Perform ROS?: Yes Constitutional: Yes: See HPI. No: Chills, Diaphoresis, Fever, Night Sweats, Weakness HEENTM: Yes: See HPI, Blurred Vision (resolved prior to arrival at ED), Recent change in vision Respiratory: Yes: See HPI, Cough. No: Shortness of Breath, SOB with Exertion, SOB at Rest, Stridor, Wheezing, Hemoptysis Cardiac (ROS): Yes: See HPI, Lightheadedness. No: Chest Pain, Irregular Heart Rate, Palpitations, Syncope ABD/GI: Yes: See HPI. No: Constipated, Diarrhea, Nausea, Poor Appetite, Vomiting Musculoskeletal: Yes: See HPI, Joint Pain (Chronic R Knee pain) Integumentary: No: Bruising, Erythema, Lesions, Rash Neurological: Yes: See HPI, Headache, Dizziness (Vertigo). No: Numbness, Paresthesia, Tingling, Weakness, Unsteady Gait *Physical Exam - Vital Signs Last Vital Signs Temp Pulse Resp BP Pulse Ox 98.5 F 99 H 20 140/89 96 09/04/18 21:33 09/04/18 21:33 09/04/18 21:33 09/04/18 21:33 09/04/18 21:33 - Physical Exam General Appearance: Yes: Nourished, Appropriately Dressed, Apparent Distress, Mild Distress HEENT: positive: EOMI, TATIANNA, Normal Voice Neck: positive: Trachea midline. negative: Tender Respiratory/Chest: positive: Lungs Clear, Normal Breath Sounds. negative: Chest Tender, Respiratory Distress, Accessory Muscle Use, Labored Respiration, Rapid RR, Crackles, Stridor, Wheezing Cardiovascular: positive: Regular Rhythm, Regular Rate, S1, S2. 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 negative: Facial Droop , Confused Heart Score/ECG Review - History History: Slightly suspicious - Age Age: </= 45 - Risk Factors Risk Factors Heart Score: Yes Hx Hypercholesterolemia, Yes Hx Hypertension, Yes Hx Diabetes, Yes Hx Obesity Based on the list above the patient has:: >/=3 risk factors or Hx atherosclerotic disease - Troponin Troponin: </= normal limit ED Treatment Course - LABORATORY CBC & Chemistry Diagram: 09/04/18 22:30 09/04/18 22:30 Medical Decision Making - Medical Decision Making 09/04/18 22:42 58 y/o M with hx polysubstance use, recent hospitalization with TIA, DM, prior [place] p/w new onset dizziness and vertigo with headache and vision change (now resolved). Most likely differential for him includes dehydration given outdoor picnic with alcohol intake, although cannot rule out TIA, given vertigo with vision change, or cardiovascular disease given risk factors and PMH including prior [place]. Recent carotid endarterectomy makes TIA less likely, but given prior recent TIA and recent hospitalization will plan for head CT without contrast, alongside full cardiac workup. Plan: CBC CMP Head CT non-contrast Cardiac profile/troponin POC Blood Glucose Serum EtOH level IV Normal Saline 1L bolus EKG Dispo: Pending imaging and lab results 09/05/18 03:29 Repeat troponin negative, CT negative for acute process. Plan to discharge home with PCP follow up. Patient counseled re: importance of follow up. Vital signs remain stable. *DC/Admit/Observation/Transfer Diagnosis at time of Disposition: Lightheadedness - Discharge Dispostion Disposition: HOME Condition at time of disposition: Good Decision to Admit order: No - Referrals Referrals: Lenny Hernandez MD [Primary Care Provider] - - Patient Instructions Printed Discharge Instructions: DI for Dehydration -- Adult, DI for Dizziness- Nonvertigo Additional Instructions: You were evaluated in the Emergency Department by Dr. Palacios and Dr. Espinal. We evaluated your symptoms, took a medical history, and evaluated blood work. We believe that it is safe to discharge you home at this time. Your lab results returned within normal limits, and your heart and blood sugar tests came back normal as well. You may have become dizzy due to dehydration during the picnic. Please follow up with your primary care provider as soon as possible. Please return if you develop any weakness, confusion, high fevers, chest pain, or any other symptoms that are concerning to you. - Post Discharge Activity
[2018-09-04] MEDS ORDERED: SODIUM CHLORIDE 0.9% 500 ML INFUS.BAG IV ONE (22:25)
[2018-09-04 22:41] LABS: BASO % 1.2 % (0-2.0); EOS % 3.5 % (0-4.5); HEMATOCRIT 32.5 % (35.4-49); HEMOGLOBIN 10.4 GM/dL (11.7-16.9); MCH 29.8 pg (25.7-33.7); MCHC 32.1 g/dl (32.0-35.9); MEAN CELL VOLUME 92.9 fl (80-96); MEAN PLT VOLUME 6.6 fl (7.5-11.1); MONO % 7.6 % (3.8-10.2); NEUT % 63.7 % (42.8-82.8); PLATELET COUNT 346 K/MM3 (134-434); RDW 14.7 % (11.9-15.9); WHITE BLOOD COUNT 8.3 K/mm3 (4.0-10.0)
[2018-09-04 23:14] LABS: ALBUMIN 3.5 g/dl (3.4-5.0); BILIRUBIN,TOTAL 0.1 mg/dL (0.2-1); CALCIUM 9.1 mg/dL (8.5-10.1); CREATININE 1.7 mg/dL (0.55-1.3); TOT PROT 7.2 g/dl (6.4-8.2)
[2018-09-04 23:43] LABS: PLATELET ESTIMATE NORMAL
--- NOTE | 2018-09-05 02:23 | PDOC ---
Documentation entered by Lottie Witt SCRIBE, acting as scribe for Yael Espinal MD. Yael Espinal MD: This documentation has been prepared by the scribe, Lottie Witt SCRIBE, under my direction and personally reviewed by me in its entirety. I confirm that the documentation accurately reflects all work, treatment, procedures, and medical decision making performed by me. Attending Attestation - Resident Resident Name: Iban Palacios - ED Attending Attestation I have performed the following: I have examined & evaluated the patient, The case was reviewed & discussed with the resident, I agree w/resident's findings & plan, Exceptions are as noted - HPI HPI: 09/04/18 23:08 The patient is a 58-year-old male, with a past medical history of HTN, HLD, CAD , [place] s/p PCI, DM, cocaine abuse, non-ischemic dilated cardiomyopathy, LV systolic dysfunction, GERD, Renal insufficiency, chronic low back pain, who presents to the ED with headache, lightheadedness, and blurred vision. The patient states that his symptoms began 2.5 hours ago while he was at a BBQ. He stood up and began to feel lightheaded and unsteady on his feet. He denies any loss of consciousness. He reports drinking alcoholic beverages throughout the day, but was also drinking water. The patient did not eat since 8 AM this morning. The patient fevers, chills, nausea, vomiting, diarrhea, or abdominal pain. Denies any chest pain, palpitations, or shortness of breath. Denies any urinary symptoms. Denies any numbness, tingling, or lower extremity swelling. Allergies: IRMA Inhibitors PCP: Dr. Hernandez - Physicial Exam PE: 09/04/18 23:10 GENERAL: Awake, alert, and fully oriented, in no acute distress HEAD: No signs of trauma EYES: PERRLA, EOMI, sclera anicteric, conjunctiva clear ENT: Auricles normal inspection, hearing grossly normal, nares patent, oropharynx clear without exudates. Moist mucosa NECK: Normal ROM, supple, no lymphadenopathy, JVD, or masses LUNGS: Breath sounds equal, clear to auscultation bilaterally. No wheezes, and no crackles HEART: Regular rate and rhythm, normal S1 and S2, no murmurs, rubs or gallops ABDOMEN: (+)Protuberant abdomen. Soft, nontender, normoactive bowel sounds. No guarding, no rebound. No masses EXTREMITIES: Normal range of motion, no edema. No clubbing or cyanosis. No cords, erythema, or tenderness NEUROLOGICAL: Cranial nerves II through XII grossly intact. Normal speech, normal gait SKIN: Warm, Dry, normal turgor, no rashes or lesions noted - Medical Decision Making 09/05/18 02:22 Patient Name: KEMAL GAN THIS IS A PRELIMINARY REPORT FROM [facility] DATE OF SERVICE: 2018-09-05 00:11:30 IMAGES: 176 EXAM: HEAD CT WITHOUT CONTRAST HISTORY: Dizziness COMPARISON: None. FINDINGS: The ventricular system is midline and nondilated. Cortical atrophy and small vessel ischemic changes are advanced for the patient's age. There is an old infarct in the posterior right parietal lobe as well as in the right frontal lobe. There is no bleed, mass, extra-axial fluid collection or mass effect. No skull fracture or skull lesion is identified. A large retention cyst or polyp is noted in the right maxillary sinus. The visualized paranasal sinuses and mastoid air cells are clear. IMPRESSION: No evidence of acute pathology
--- NOTE | 2018-09-05 08:53 | EKG ---
Test Reason : Blood Pressure : / mmHG Vent. Rate : 096 BPM Atrial Rate : 096 BPM P-R Int : 170 ms QRS Dur : 100 ms QT Int : 380 ms P-R-T Axes : 050 029 020 degrees QTc Int : 480 ms SINUS RHYTHM WITH OCCASIONAL PREMATURE VENTRICULAR COMPLEXES POSSIBLE LEFT ATRIAL ENLARGEMENT PROLONGED QT ABNORMAL ECG WHEN COMPARED WITH ECG OF 08-AUG-2018 10:31, T WAVE INVERSION LESS EVIDENT IN LATERAL LEADS Confirmed by KIKI CHILDRESS, NIK ([id number]) on 09/05/2018 8:53:10 AM Referred By: Confirmed By:NIK SWANSON MD
== END 2018-09-05 03:27 | disposition home or self-care (01) ==
LOC: JER 21:22
PROC: 3E0337Z Introduction of Electrolytic and Water Balance Substance into Peripheral Vein, Percutaneous Approach (ICD-10-PCS; principal; 2018-09-04)
DX: E86.0 Dehydration (principal); R42 Dizziness and giddiness; I25.10 Atherosclerotic heart disease of native coronary artery without angina pectoris; I11.0 Hypertensive heart disease with heart failure; Z95.5 Presence of coronary angioplasty implant and graft; I50.9 Heart failure, unspecified; I42.9 Cardiomyopathy, unspecified; J44.9 Chronic obstructive pulmonary disease, unspecified; J45.909 Unspecified asthma, uncomplicated; E11.9 Type 2 diabetes mellitus without complications; Z79.4 Long term (current) use of insulin; Z86.73 Personal history of transient ischemic attack (TIA), and cerebral infarction without residual deficits
CPT/HCPCS: 36415; 70450-TC; 80053; 80307; 82009; 82550; 82962; 84484; 85025; 93005; 93010; 99282-25

== ENCOUNTER 2018-09-24 06:33 | Emergency (ER) | payer OTHER ==
[2018-09-24] MEDS ORDERED: ACETAMINOPHEN 1000 MG/100 ML VIAL (NON FORMULARY) IVPB ONE (07:32)
--- NOTE | 2018-09-24 07:36 | PDOC ---
Attending Attestation - Resident Resident Name: Clementina Morales - ED Attending Attestation I have performed the following: I have examined & evaluated the patient, The case was reviewed & discussed with the resident, I agree w/resident's findings & plan, Exceptions are as noted - HPI HPI: 09/24/18 07:37 58y M hx of IDDM, chf, CAD (sp 3MI), COPD, HL, scva p recent carotid endardectomy, presents to the ED for complaing of back pain/neck pain this morning when he woke. Pt deneis any cp, sob, fever/chills, numbness/tinglig, urinary or bowel incontinence. no new wekneas (pt has weak RLE at baseline). - Medical Decision Making 09/24/18 11:59 pt reassessed labs and imaging [facility] fu Heart Score/ECG Review - ECG Impressions Comment:: 09/24/18 08:32 Twelve-lead EKG was performed and reviewed by me. There is normal sinus rhythm with a normal rate. rate of 86, PACs present qTC interval of 478 T-wave inversion in the lateral leads
[2018-09-24] MEDS ORDERED: ACETAMINOPHEN INJECTION 100 ML IVPB ONE (08:03)
[2018-09-24 08:16] VITALS: BMI 32.8
[2018-09-24 08:25] LABS: INR 1.08 (0.83-1.09); PROTHROMBIN TIME (PATIENT) 12.8 SEC (9.7-13.0)
[2018-09-24] MEDS ORDERED: CYCLOBENZAPRINE HCL 10 MG TABLET (FP) PO ONE (08:25)
--- NOTE | 2018-09-24 08:28 | PDOC ---
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 Pt states he was sleeping when he felt a sharp pain in the R lower back. Pain does not radiate, is sharp and is associated with difficulty ambulating due to the pain. Pt also endorses pain at the surgical site which does not radiate. He is also complaining of dizziness, lightheadedness and bilateral blurry vision. He has not experienced a pain like this before. Denies numbness/tingling, weakness, midline back pain, injury, chest pain, sob, abdominal pain, n/v/d, dysuria, hematuria, falls, tinnitus, fevers, chills, incontinence. He states that last night he drank 2 cans of beer and smoked cocaine. PMD: PMH: see hpi PSH: see hpi Meds: see med rec Allergies: IRMA-I Social: alcohol use, 5 cigarettes/day, occasional cocaine use Past History - Past Medical History Allergies/Adverse Reactions: Allergies Allergy/AdvReac Type Severity Reaction Status Date / Time IRMA Inhibitors Allergy Verified 09/24/18 08:02 Home Medications: Ambulatory Orders Albuterol Sulfate Inhaler - [Ventolin HFA Inhaler -] 1 - 2 inh PO Q4H #1 inhaler 07/02/18 Budesonide/Formeterol Fumarate [SYMBICORT 80/4.5mcg -] 2 puff IH BID #1 inhaler 07/02/18 Furosemide [Lasix -] 40 mg PO DAILY #30 tablet 07/02/18 Isosorbide Mononitrate [Imdur -] 60 mg PO DAILY #30 tab.sr.24h 07/02/18 Medical Supply, Miscellaneous [Blood Pressure Cuff] 1 each MC DAILY #1 each 12/11 Hydralazine HCl 100 mg PO TID 08/09/18 Aspirin Coated [Ecotrin -] 325 mg PO DAILY #30 tablet. 08/17/18 Atorvastatin Ca [Lipitor] 80 mg PO HS #30 tablet 08/17/18 Carvedilol [Coreg -] 25 mg PO BID #60 tablet 08/17/18 Insulin (Levemir) [Levemir Vial] 20 unit SQ HS #1 vial 08/17/18 Insulin (Levemir) [Levemir Vial] 40 unit SQ AM #1 vial 08/17/18 Nifedipine ER [Procardia XL -] 60 mg PO DAILY #30 tab.er.24 08/17/18 Spironolactone [Aldactone -] 50 mg PO DAILY #30 tablet 08/17/18 Anemia: No Asthma: Yes Cancer: No Cardiac Disorders: Yes (ACS, CAD - s/p PCI/Stents, [place] X3, non-ischemic Cardiomyopathy,) CVA: Yes (2019) COPD: Yes CHF: Yes (Diastolic CHF) DVT: No Dementia: No Diabetes: Yes GI Disorders: No Disorders: No HTN: Yes Hypercholesterolemia: Yes Kidney Stones: No Liver Disease: No Seizures: No Thyroid Disease: No - Surgical History Abdominal Surgery: No Appendectomy: No Cardiac Surgery: Yes (Carotid endareterectomy) Cholecystectomy: No Lung Surgery: No Neurologic Surgery: No Orthopedic Surgery: Yes (Old injury fractured left ankle x2) - Reproductive History Testicular Surgery: No - Immunization History Immunization Up to Date: Yes - Suicide/Smoking/Psychosocial Hx Smoking Status: No Smoking History: Former smoker Have you smoked in the past 12 months: No Number of Cigarettes Smoked Daily: 3 Information on smoking cessation initiated: No 'Breaking Loose' booklet given: 04/13/18 Hx Alcohol Use: No Drug/Substance Use Hx: No Substance Use Type: Cocaine Hx Substance Use Treatment: No Review of Systems - Review of Systems Constitutional: No: Symptoms Reported HEENTM: Yes: Blurred Vision Respiratory: No: Symptoms reported Cardiac (ROS): No: Symptoms Reported ABD/GI: No: Symptoms Reported : No: Symptoms Reported Musculoskeletal: Yes: See HPI, Back Pain Integumentary: No: Symptoms Reported Neurological: No: Symptoms reported *Physical Exam - Vital Signs Last Vital Signs Temp Pulse Resp BP Pulse Ox 98 F 86 18 157/101 H 98 09/24/18 07:46 09/24/18 07:46 09/24/18 07:46 09/24/18 07:46 09/24/18 07:46 - Physical Exam General Appearance: Yes: Appropriately Dressed, Mild Distress, Obese HEENT: positive: EOMI, TATIANNA Neck: positive: Trachea midline, Supple. negative: Carotid bruit Respiratory/Chest: positive: Lungs Clear, Normal Breath Sounds Cardiovascular: positive: Regular Rate, S1, S2. negative: Edema, JVD, Murmur Vascular Pulses: Dorsalis-Pedis (R): 2+, Doralis-Pedis (L): 2+ Gastrointestinal/Abdominal: positive: Normal Bowel Sounds, Soft. negative: Tender Musculoskeletal: positive: Muscle Spasm. negative: CVA Tenderness, Vertebral Tenderness Extremity: positive: Normal Capillary Refill, Pelvis Stable. negative: Calf Tenderness Integumentary: positive: Normal Color, Dry, Warm Neurologic: positive: cyberathlete II-XII NML intact, Fully Oriented, Alert, Normal Mood/ Affect, Normal Response, Motor Strength 06/27 ED Treatment Course - LABORATORY CBC & Chemistry Diagram: 09/24/18 07:55 09/24/18 07:55 - RADIOLOGY Radiology Studies Ordered: Category Date Time Status HEAD CT WITHOUT CONTRAST [CT] Stat CT Scan 09/24/18 07:31 Ordered CHEST X-RAY PORTABLE* [RAD] Stat Radiology 09/24/18 07:32 Ordered - Medications Given in the ED: ED Medications Discontinued Medications Generic Name Dose Route Start Last Admin Trade Name Freq PRN Reason Stop Dose Admin Acetaminophen 1,000 mg 09/24/18 07:32 09/24/18 08:06 Ofirmev Injection - IVPB 09/24/18 07:33 1,000 mg ONCE ONE Administration Medical Decision Making - Medical Decision Making 09/24/18 08:28 58yo M with PMH of CVA/TIA s/p R carotid endarterectomy 07/2018, diastolic CHF, CAD s/p stent, COPD, HTN, HLD presenting to ED with complaints of R sided lower back pain, R neck pain that 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 Pt states he was sleeping when he felt a sharp pain in the R lower back. Pain does not radiate, is sharp and is associated with difficulty ambulating due to the pain. Pt also endorses pain at the surgical site which does not radiate. He is also complaining of dizziness, lightheadedness and bilateral blurry vision. He has not experienced a pain like this before. Denies numbness/tingling, weakness, midline back pain, injury, chest pain, sob, abdominal pain, n/v/d, dysuria, hematuria, falls, tinnitus, fevers, chills, incontinence. He states that last night he drank 2 cans of beer and smoked cocaine. Vitals: bp 150s/101 otherwise wnl PE: CN normal, normal neurological exam, lower extremity exam limited to pain. no abdominal tenderness, no cva tenderness, no midline spinal tenderness. pain likely msk in nature. normal neurological exam but pt complaining of dizziness and headache. could be due to drug use however given recent carotid endarterectomy, will obtain labs including troponin and ekg. giving tylenol for pain, flexeril 10mg. 09/24/18 10:57 labs wnl ekg: sinus rhythm at 86 with pvc. twi n v5-v6. similar to ekg 7.15. cxr: no acute process. UA negative for infection pt sleeping in stretcher. upon waking, says pain is improved. will ambulate patient. if gait is normal, can be dc home. 09/24/18 11:00 Pt able to ambulate without difficulty. Pain improved. Safe for dc home. given return precautions and dc instructions. *DC/Admit/Observation/Transfer Diagnosis at time of Disposition: Muscle spasm Back pain Qualifiers: Back pain location: low back pain Chronicity: acute Back pain laterality: right Sciatica presence: without sciatica Qualified Code(s): M54.5 - Low back pain - Discharge Dispostion Disposition: HOME Condition at time of disposition: Improved - Referrals Referrals: [facility] [place] [Provider Group] Charanjit Jett MD [Staff Physician] - - Patient Instructions Printed Discharge Instructions: DI for Low Back Pain, DI for Back Spasm Additional Instructions: You were seen in the emergency room today for pain in the back. This is most likely a muscle spasm. You can take Tylenol for the pain as needed. I highly recommend that you see your primary care doctor for the pain. If you do not have one, you can go to the clinic listed below. I a Come back to the emergency room if pain worsens, you are unable to walk, have numbness in your legs, have abdominal pain or if any new concerning symptom develops. Thank you - Post Discharge Activity
[2018-09-24] MEDS ORDERED: LIDOCAINE 5% TOPICAL PATCH TP ONE (08:33)
[2018-09-24 08:35] LABS: BASO % 0.7 % (0-2.0); EOS % 0.9 % (0-4.5); HEMATOCRIT 32.4 % (35.4-49); HEMOGLOBIN 11.1 GM/dL (11.7-16.9); LYMPH % 15.3 % (8-40); MCHC 34.2 g/dl (32.0-35.9); MEAN CELL VOLUME 90.8 fl (80-96); MEAN PLT VOLUME 7.2 fl (7.5-11.1); MONO % 9.1 % (3.8-10.2); PLATELET COUNT 458 K/MM3 (134-434); RBC 3.57 M/mm3 (4.00-5.60); RDW 13.8 % (11.9-15.9); WHITE BLOOD COUNT 10.5 K/mm3 (4.0-10.0)
[2018-09-24] MEDS ORDERED: LIDOCAINE 5% TOPICAL PATCH ONE (08:41)
[2018-09-24] MEDS ORDERED: CYCLOBENZAPRINE HCL 10 MG TABLET (FP) ONE (08:41)
[2018-09-24 08:43] LABS: ALBUMIN 3.5 g/dl (3.4-5.0); ALK PHOS 100 U/L (45-117); ANION GAP 8 MMOL/L (8-16); BILIRUBIN,TOTAL 0.5 mg/dL (0.2-1); CHLORIDE 97 mmol/L (98-107); CO2 25 mmol/L (21-32); CREATININE 1.3 mg/dL (0.55-1.3); GLUCOSE,RANDOM 80 mg/dL (74-106); POTASSIUM 4.8 mmol/L (3.5-5.1); SGOT/AST 41 U/L (15-37); SGPT/ALT 37 U/L (13-61); SODIUM 130 mmol/L (136-145); TOT PROT 7.6 g/dl (6.4-8.2)
[2018-09-24 09:59] LABS: URINE APPEARANCE CLEAR; URINE BILIRUBIN NEGATIVE (NEGATIVE); URINE COLOR YELLOW; URINE GLUCOSE (UA) NEGATIVE (NEGATIVE); URINE KETONE NEGATIVE (NEGATIVE); URINE LEUK ESTERASE NEGATIVE (NEGATIVE); URINE NITRITE NEGATIVE (NEGATIVE); URINE PROTEIN TRACE (NEGATIVE); URINE UROBILINOGEN 0.2 mg/dL (0.2-1.0)
[2018-09-24 12:13] VITALS: BP 146/80; PULSE 88; TEMP 98.5
--- NOTE | 2018-09-24 14:02 | EKG ---
Test Reason : Blood Pressure : / mmHG Vent. Rate : 086 BPM Atrial Rate : 086 BPM P-R Int : 190 ms QRS Dur : 094 ms QT Int : 400 ms P-R-T Axes : 058 -04 047 degrees QTc Int : 478 ms SINUS RHYTHM WITH FREQUENT PREMATURE VENTRICULAR COMPLEXES POSSIBLE LEFT ATRIAL ENLARGEMENT T WAVE ABNORMALITY, CONSIDER LATERAL ISCHEMIA PROLONGED QT ABNORMAL ECG WHEN COMPARED WITH ECG OF 05-SEP-2018 00:02, NO SIGNIFICANT CHANGE WAS FOUND Confirmed by LETTY JESUS MD ([id number]) on 09/24/2018 2:02:32 PM Referred By: Confirmed By:LETTY JESUS MD
[2018-09-24] MEDS ORDERED: LIDOCAINE PATCH REMOVAL MC SCH (22:00)
== END 2018-09-24 12:23 | disposition home or self-care (01) ==
LOC: JER 06:33
PROC: 3E033NZ Introduction of Analgesics, Hypnotics, Sedatives into Peripheral Vein, Percutaneous Approach (ICD-10-PCS; principal; 2018-09-24)
DX: M62.830 Muscle spasm of back (principal); I25.10 Atherosclerotic heart disease of native coronary artery without angina pectoris; I11.0 Hypertensive heart disease with heart failure; Z95.5 Presence of coronary angioplasty implant and graft; I25.2 Old myocardial infarction; I50.9 Heart failure, unspecified; J44.9 Chronic obstructive pulmonary disease, unspecified; Z86.73 Personal history of transient ischemic attack (TIA), and cerebral infarction without residual deficits
CPT/HCPCS: 36415; 70450-TC; 71045-TC-FY; 80053; 81003; 84484; 85025; 85610; 87086; 93005; 93010; 96374; 99282-25; J0131

== ENCOUNTER 2018-10-07 09:50 | Emergency (ER) | payer OTHER | END 2018-10-07 12:23 | disposition left against medical advice (07) | LOC: JER 09:50 ==

== ENCOUNTER 2018-10-19 11:28 | Observation (INO) | payer OTHER ==
--- NOTE | 2018-10-19 12:19 | PDOC ---
*Physical Exam - Vital Signs Last Vital Signs Temp Pulse Resp BP Pulse Ox 97.4 F L 99 H 18 174/112 H 97 10/19/18 11:35 10/19/18 11:35 10/19/18 11:35 10/19/18 11:35 10/19/18 11:35 ED Treatment Course - LABORATORY CBC & Chemistry Diagram: 10/19/18 12:50 10/19/18 12:50 Medical Decision Making - Medical Decision Making 10/19/18 13:47 58 year old male with -- h/o chest pain that radiates to his back and shoulder pain. Case d/w Dr. Johnson who notes patient has a h/o malignant HTN Will r/o ACS, given patient's h/o malignant HTN *DC/Admit/Observation/Transfer - Referrals Referrals: Lenny Hernandez MD [Primary Care Provider] - - Patient Instructions - Post Discharge Activity
--- NOTE | 2018-10-19 12:39 | PDOC ---
History of Present Illness - General Chief Complaint: Chest Pain Stated Complaint: CHEST PAIN Time Seen by Provider: 10/19/18 12:08 - History of Present Illness Initial Comments: 10/19/18 14:18 58yo M hx CVA/TIA (s/p R carotid endarterectomy 07/2018, w/residual vision loss) , diastolic CHF, CAD s/p stent, COPD, HTN, and HLD presents from home c/o chest pain. Pt states pain started this AM, constant pressure-type 10/10 R-sided chest pain radiating to R neck and R shoulder blade, worse with movement of R shoulder and neck. Complains of pulsating feeling in R nck. States can't turn head but is doing so easily. Denies falls, trauma, sleeping oddly, hx of similar sx, headache, dizziness, vertigo, vision changes, SOB, abdominal pain, N /V, D/C, blood in stool, dysuria, hematuria, numbness/tingling, weakness. Past History - Past Medical History Allergies/Adverse Reactions: Allergies Allergy/AdvReac Type Severity Reaction Status Date / Time IRMA Inhibitors Allergy Verified 10/19/18 11:38 Home Medications: Ambulatory Orders Furosemide [Lasix -] 40 mg PO DAILY #30 tablet 07/02/18 Isosorbide Mononitrate [Imdur -] 60 mg PO DAILY #30 tab.sr.24h 07/02/18 Hydralazine HCl 100 mg PO TID 08/09/18 Atorvastatin Ca [Lipitor] 80 mg PO HS #30 tablet 08/17/18 Carvedilol [Coreg -] 25 mg PO BID #60 tablet 08/17/18 Nifedipine ER [Procardia XL -] 60 mg PO DAILY #30 tab.er.24 08/17/18 Spironolactone [Aldactone -] 50 mg PO DAILY #30 tablet 08/17/18 Aspirin Coated [Ecotrin -] 3.25 mg PO DAILY 10/19/18 Clopidogrel Bisulfate [Plavix] 75 mg PO DAILY 10/19/18 Glipizide Xl [Glucotrol Xl -] 2.5 mg PO DAILY 10/19/18 metFORMIN HCL [Metformin ER Osmotic] 1,000 mg PO DAILY 10/19/18 Anemia: No Asthma: Yes Cancer: No Cardiac Disorders: Yes (ACS, CAD - s/p PCI/Stents, OR X3, non-ischemic Cardiomyopathy,) CVA: Yes (2019) COPD: Yes CHF: Yes (Diastolic CHF) DVT: No Dementia: No Diabetes: Yes GI Disorders: No Disorders: No HTN: Yes Hypercholesterolemia: Yes Kidney Stones: No Liver Disease: No Seizures: No Thyroid Disease: No - Surgical History Abdominal Surgery: No Appendectomy: No Cardiac Surgery: Yes (Carotid endareterectomy) Cholecystectomy: No Lung Surgery: No Neurologic Surgery: No Orthopedic Surgery: Yes (Old injury fractured left ankle x2) - Reproductive History Testicular Surgery: No - Immunization History Immunization Up to Date: Yes - Suicide/Smoking/Psychosocial Hx Smoking Status: No Smoking History: Current some day smoker Have you smoked in the past 12 months: No Number of Cigarettes Smoked Daily: 2 Information on smoking cessation initiated: No 'Breaking Loose' booklet given: 04/13/18 Hx Alcohol Use: No Drug/Substance Use Hx: No Substance Use Type: Cocaine Hx Substance Use Treatment: No Review of Systems - Review of Systems Comments:: 10/19/18 22:22 Constitutional: Negative for chills, fever, fatigue. HENT: Negative for sore throat, rhinorrhea, congestion. Eyes: Negative for visual disturbance. Respiratory: Negative for shortness of breath, cough, and wheezing. Cardiovascular: Positive for chest pain. Negative for palpitations, and leg swelling. Gastrointestinal: Negative for abdominal pain, blood in stool, constipation, diarrhea, nausea, and vomiting. Genitourinary: Negative for dysuria, flank pain, and hematuria. Musculoskeletal: Positive for R neck pain, R shoulder pain, and R trapezius/ deltoid pain. Negative for myalgias. Skin: Negative for rash. Neurological: Negative for light-headedness, dizziness, syncope, weakness, numbness and headaches. Psychiatric/Behavioral: Negative for behavioral problems and confusion. *Physical Exam - Vital Signs Last Vital Signs Temp Pulse Resp BP Pulse Ox 97.4 F L 99 H 18 174/112 H 97 10/19/18 11:35 10/19/18 11:35 10/19/18 11:35 10/19/18 11:35 10/19/18 11:35 - Physical Exam Comments: 10/19/18 22:24 Gen: Alert, NAD, comfortable-appearing. HEENT: PERRL, EOMI, MMM, NCAT. No conjunctival pallor. Sclera are non-icteric. Full ROM of neck. CV: Regular rate and rhythm. No murmurs, rubs, or gallops. PULM: No resp distress. CTAB, no wheezes, rales, or rhonchi. ABD: soft, NT/ND, no rebound tenderness or guarding, no CVA tenderness. BACK: +TTP paraspinal T-spine/R trapezius/R deltoid. No TTP of c/t/l-spine. No step-offs or deformities. MSK: +TTP of R shoulder diffusely. Full ROM of R shoulder, 5/5 strength, sensation intact in RUE. No bony deformities. 2+ pulses in all extremities. NEURO: AAOx3. PERRL. No gross CN deficits. Strength and sensation grossly intact throughout. EXTREMITIES: No cyanosis. No clubbing. No edema. No calf tenderness. PSYCH: Normal mood and thought pattern. SKIN: Warm and dry. Normal capillary refill. No rashes. No jaundice. Heart Score/ECG Review - ECG Impressions Comment:: 10/19/18 22:26 1132: NSR, 99bpm, QTc 497ms, normal axis, TWIs in I/aVL/V6, biphasic T wave V5, no STEs. Compared to 10/07/18, PVCs no longer present and flattened T waves in I/ aVL now inverted. ED Treatment Course - LABORATORY CBC & Chemistry Diagram: 10/19/18 12:50 10/19/18 12:50 Medical Decision Making - Medical Decision Making 58yo M hx CVA/TIA (s/p R carotid endarterectomy 07/2018, w/residual vision loss) , diastolic CHF, CAD s/p stent, COPD, HTN, and HLD presents from home c/o constant pressure-type 10/10 R-sided chest pain radiating to R neck and R shoulder blade, worse with movement of R shoulder and neck. Atraumatic, TTP of R shoulder and R trapezius, hemodynamically stable except for hypertension which pt states is normal. 168/107 on repeat. Due to reproducibility of pain, most likely muscle strain or musculoskeletal injury - XR R shoulder due to TTP, though low concern for fx or dislocation due to full ROM. Also consider and r/o more emergent conditions due to significant RFs, including ACS/OR vs CHF vs COPD exacerbation. HEART score moderate 4. Low concern for PE due to hx/presentation and Wells 0 - no testing indicated at this time. Due to reproducibility of back pain and pain with movement of shoulder and hx/presentation, low concern for dissection at this time - will discuss CTA with Dr Johnson and attending. -EKG -Labs: CBC, CMP, Cardiac profile, BNP, Coags -XR R shoulder, CXR, US carotid -Dispo: likely admit tele obs pending w/u Labs reviewed. No concerning findings. BNP 549 (3513 on 07/2018). XR R shoulder: no acute changes, arthritic changes CXR: no acute pathology EKG 1132: NSR, 99bpm, QTc 497ms, normal axis, TWIs in I/aVL/V6, biphasic T wave V5, no STEs. Compared to 10/07/18, PVCs no longer present and flattened T waves in I/aVL now inverted. 10/19/18 13:[address] Johnson on phone - states that pt has hx of malignant hypertension so his BP is usually that high. Discussed US vs CTA. Agrees with US carotid and will follow peripherally. 10/19/18 17:[address] Johnson and informed on US results: of note, tubular anechoic density along anterior margin of R common carotid bifurcation approx 6mm in depth suggestive of fluid, likely postoperative. Signed out to admitting team. *DC/Admit/Observation/Transfer Diagnosis at time of Disposition: Chest pain - Discharge Dispostion Condition at time of disposition: Stable Decision to Admit order: Yes - Referrals - Patient Instructions - Post Discharge Activity
[2018-10-19 13:12] LABS: BASO % 0.7 % (0-2.0); EOS % 0.8 % (0-4.5); LYMPH % 10.5 % (8-40); MCH 30.9 pg (25.7-33.7); MCHC 33.3 g/dl (32.0-35.9); MEAN CELL VOLUME 92.9 fl (80-96); MEAN PLT VOLUME 7.4 fl (7.5-11.1); MONO % 5.8 % (3.8-10.2); NEUT % 82.2 % (42.8-82.8); PLATELET COUNT 462 K/MM3 (134-434); RBC 3.88 M/mm3 (4.00-5.60); RDW 14.4 % (11.9-15.9); WHITE BLOOD COUNT 9.3 K/mm3 (4.0-10.0)
[2018-10-19 13:28] LABS: PROTHROMBIN TIME (PATIENT) 11.8 SEC (9.7-13.0)
[2018-10-19 13:47] LABS: ALBUMIN 3.6 g/dl (3.4-5.0); ALK PHOS 118 U/L (45-117); ANION GAP 12 MMOL/L (8-16); BILIRUBIN,TOTAL 0.5 mg/dL (0.2-1); BLOOD UREA NITROGEN 18.7 mg/dL (7-18); CALCIUM 9.5 mg/dL (8.5-10.1); CHLORIDE 102 mmol/L (98-107); CO2 21 mmol/L (21-32); CREATININE 1.3 mg/dL (0.55-1.3); GLUCOSE,RANDOM 111 mg/dL (74-106); POTASSIUM 4.1 mmol/L (3.5-5.1); SGOT/AST 24 U/L (15-37); SGPT/ALT 29 U/L (13-61); SODIUM 135 mmol/L (136-145)
--- NOTE | 2018-10-19 13:58 | PDOC ---
Attending Attestation - Resident Resident Name: Ariella Amador - ED Attending Attestation I have performed the following: I have examined & evaluated the patient, The case was reviewed & discussed with the resident, I agree w/resident's findings & plan, Exceptions are as noted - HPI HPI: Mr Ernandez is a 58 yo M h/o HTN, HLD, medication non-adherence, PR x3 (no cardiac stents), systolic CHF, NIDDM, carotid stenosis s/p Right CEA, asthma, who presents to the ER with a complaint of chest pain, upper back pain, neck pain. Pt reports these symptoms began this morning He notes chest pain, upper back pain and right neck pain No trauma Did not sleep awkwardly on his neck or side No fevers or chills - Physicial Exam PE: 10/19/18 13:53 GENERAL: The patient is in no acute distress. ENT: Ears normal, nares patent, oropharynx clear without exudates. NECK: Normal range of motion, supple, right neck pain, neck turning limited by pain, no midline tenderness LUNGS: Breath sounds equal, clear to auscultation bilaterally. No wheezes, and no crackles. HEART:Regular rate and rhythm, normal S1 and S2 ABDOMEN: Soft, nontender, normoactive bowel sounds. EXTREMITIES: Normal range of motion, no edema. NEUROLOGICAL: Cranial nerves II through XII grossly intact. Normal speech. No focal neurological deficits. SKIN: Warm, Dry, normal turgor, no rashes or lesions noted. 10/19/18 14:03 - Medical Decision Making 10/19/18 14:20 58 yo M presenting with chest, upper back and neck pain Pain in the upper back is reproducible with palpation of the back No chest wall tenderness No fevers, chills, cough Call placed to Dr. Johnson Would recommend US as opposed to CTA 10/19/18 14:23 Laboratory Tests 10/19/18 10/19/18 12:50 12:50 WBC 9.3 Hgb 12.0 Hct 36.0 Plt Count 462 H Alkaline Phosphatase 118 H Creatine Kinase 152 CK-MB (CK-2) 1.5 Troponin I < 0.02 Carotid duplex pending 10/20/18 08:02 Carotid duplex - tubular density along the anterior margin of the right common carotid bifurcation approx 6mm Pt has chest pain and multiple risk factors Will plan to admit to hospitalist service Clinical impression: chest pain, initial presentation
[2018-10-19 14:59] LABS: N-TERMINAL BNP 548.9 pg/ml (5-125)
--- NOTE | 2018-10-19 15:08 | EKG ---
Test Reason : Blood Pressure : / mmHG Vent. Rate : 099 BPM Atrial Rate : 099 BPM P-R Int : 168 ms QRS Dur : 108 ms QT Int : 388 ms P-R-T Axes : 060 028 101 degrees QTc Int : 497 ms NORMAL SINUS RHYTHM POSSIBLE LEFT ATRIAL ENLARGEMENT T WAVE ABNORMALITY, CONSIDER LATERAL ISCHEMIA PROLONGED QT ABNORMAL ECG WHEN COMPARED WITH ECG OF 07-OCT-2018 10:00, PREMATURE VENTRICULAR COMPLEXES ARE NO LONGER PRESENT Confirmed by Jake Mclean ([id number]) on 10/19/2018 3:08:43 PM Referred By: Confirmed By:Jake Mclean
[2018-10-19] MEDS ORDERED: KETOROLAC TROMETHAMINE 30 MG/1 ML VIAL IVPUSH ONE (15:37)
[2018-10-19] MEDS ORDERED: KETOROLAC TROMETHAMINE 30 MG/1 ML VIAL ONE (15:48)
--- NOTE | 2018-10-19 18:06 | PN ---
Teaching Attending Note Name of Resident: Harley Colón ATTENDING PHYSICIAN STATEMENT I saw and evaluated the patient. I reviewed the resident's note and discussed the case with the resident. I agree with the resident's findings and plan as documented with exceptions below. SUBJECTIVE: 58 yom with PMhx of CAD s/p PCI/stent, OK/Angina pectoris, Diastolic Heart failure, Uncontrolled HTN, from med non compliance, Cocaine use, HLD, carotid stenosis s/p Rt CEA 07/2018, comes with c/o neck pain/back pain/chest pain. On detailed questioning, states symptoms started this AM, reports more of like neck pain and back pain in scapular region, reports like 'spasm', tender to touch, worse with movements at the right shoulder, prompting him to come to ED. Has been non compliant with his medications and states his BP has always been high. Denies any dyspnea, palpitations, dizziness, weight gain, leg swelling, orthopnea/PND, recent prolonged travel, fevers/chills/sputum, pleuritic symptoms. Currently denies any chest pain. Upper neck and back pain in scapular region, only with touch and shoulder movements. Last cocaine use 3 days ago. OBJECTIVE: Vital Signs Period Temp Pulse Resp BP Sys/Caal Pulse Ox Last 24 Hr 97.4 F 99 18 174-182/112-114 97 Intake & Output 10/16/18 10/17/18 10/18/18 10/19/18 23:59 23:59 23:59 23:59 Weight 240 lb GENERAL: Awake, alert, and fully oriented, in no acute distress. HEAD: Normal with no signs of trauma. EYES: Pupils equal, round and reactive to light, extraocular movements intact, sclera anicteric, conjunctiva clear. No lid lag. EARS, NOSE, THROAT: Ears normal, nares patent, oropharynx clear without exudates. Moist mucous membranes. NECK: Normal range of motion, supple without lymphadenopathy, right CEA well healed scar, small area of numbness in the surgical site (reports since surgery) LUNGS: Breath sounds equal, clear to auscultation bilaterally. No wheezes, and no crackles. No accessory muscle use. HEART: Regular rate and rhythm, normal S1 and S2 ABDOMEN: Soft, obese, NT, weakened rectus abdominus muscle with bulge, non tender MUSCULOSKELETAL: point tenderness tenderness over right posterior neck region in clavicular/scapular region, worsened with Movement of shoulders, UPPER EXTREMITIES: 2+ pulses, warm, well-perfused. No cyanosis. No clubbing. No peripheral edema. LOWER EXTREMITIES: 2+ pulses, warm, well-perfused. No calf tenderness. No peripheral edema. NEUROLOGICAL: AAOx3, mild area of numbness around right CEA scar, otherwise sensation intact and symmetric, power 5/5, facial symmetry, tongue midline, EOMICranial nerves II-XII intact. Normal speech. Gait not observed PSYCHIATRIC: Cooperative. Good eye contact. Appropriate mood and affect. SKIN: Warm, dry, normal turgor, no rashes or lesions noted, normal capillary refill. Home Medications Medication Instructions Recorded Furosemide [Lasix -] 40 mg PO DAILY #30 tablet 07/02/18 Isosorbide Mononitrate [Imdur -] 60 mg PO DAILY #30 tab.sr.24h 07/02/18 Hydralazine HCl 100 mg PO TID 08/09/18 Atorvastatin Ca [Lipitor] 80 mg PO HS #30 tablet 08/17/18 Carvedilol [Coreg -] 25 mg PO BID #60 tablet 08/17/18 Nifedipine ER [Procardia XL -] 60 mg PO DAILY #30 tab.er.24 08/17/18 Spironolactone [Aldactone -] 50 mg PO DAILY #30 tablet 08/17/18 Aspirin Coated [Ecotrin -] 3.25 mg PO DAILY 10/19/18 Clopidogrel Bisulfate [Plavix] 75 mg PO DAILY 10/19/18 Glipizide Xl [Glucotrol Xl -] 2.5 mg PO DAILY 10/19/18 metFORMIN HCL [Metformin ER 1,000 mg PO DAILY 10/19/18 Osmotic] Active Medications Acetaminophen (Tylenol -) 650 mg PO Q4H PRN PRN Reason: MODERATE PAIN Aspirin (Ecotrin -) 3.25 mg PO DAILY [facility] Atorvastatin Calcium (Lipitor -) 80 mg PO HS [facility] Carvedilol (Coreg -) 25 mg PO BID [facility] Clopidogrel Bisulfate (Plavix -) 75 mg PO DAILY [facility] Furosemide (Lasix -) 40 mg PO DAILY [facility] Glipizide (Glucotrol Xl -) 2.5 mg PO DAILY [facility] Heparin Sodium (Porcine) (Heparin -) 5,000 unit SQ TID [facility] Isosorbide Mononitrate (Imdur -) 60 mg PO DAILY [facility] Nifedipine (Procardia Xl -) 60 mg PO DAILY [facility] Non-Formulary Medication (Hydralazine Hcl [Hydralazine Hcl]) 100 mg PO TID [facility] Non-Formulary Medication (Metformin Hcl [Metformin Er Osmotic]) 1,000 mg PO DAILY [facility] Spironolactone (Aldactone -) 50 mg PO DAILY [facility] Laboratory Results - last 24 hr 10/19/18 10/19/18 10/19/18 12:50 12:50 12:50 WBC 9.3 RBC 3.88 L Hgb 12.0 Hct 36.0 MCV 92.9 MCH 30.9 MCHC 33.3 RDW 14.4 Plt Count 462 H MPV 7.4 L Absolute Neuts (auto) 7.7 Neutrophils % 82.2 Lymphocytes % 10.5 D Monocytes % 5.8 Eosinophils % 0.8 Basophils % 0.7 Nucleated RBC % 0 PT with INR 11.80 INR 1.00 Sodium 135 L Potassium 4.1 Chloride 102 Carbon Dioxide 21 Anion Gap 12 BUN 18.7 H Creatinine 1.3 Est GFR (CKD-EPI)AfAm 70.20 Est GFR (CKD-EPI)NonAf 60.57 Random Glucose 111 H Calcium 9.5 Total Bilirubin 0.5 AST 24 ALT 29 Alkaline Phosphatase 118 H Creatine Kinase 152 Creatine Kinase Index 0.9 CK-MB (CK-2) 1.5 Troponin I < 0.02 B-Natriuretic Peptide 548.9 H Total Protein 8.0 Albumin 3.6 Carotid duplex results reviewed EKG NSR, LVH, strain pattern, QTC 497 CXR results and images reviewed, no acute process ASSESSMENT AND PLAN: 58 yom with PMhx of CAD s/p PCI/stent, OK/Angina pectoris, Diastolic Heart failure, Uncontrolled HTN, from med non compliance, Cocaine use, HLD, carotid stenosis s/p Rt CEA 07/2018 admitted with neck/back pain and found hypertensives -Neck/back pain, suspect musculoskeletal given point tenderness and worsening with Right shoulder movements -Atypical chest pain -Hypertensive urgency, from medication non compliance -Chronic diastolic heart failure -CAD s/p PCI/stent, OK/Angina pectoris -Cocaine use -HLD -Carotid stenosis s/p rt CEA 07/2018 with post operative fluid collection Plan: Dr. Johnson consulted from ED, carotid duplex reviewed. Monitor for now. Tylenol/flexeril/lidocaine patch. Current exam with spasm like symptoms, point tenderness and worsening with shoulder movements suggest musculoskeletal etiology. Long standing h/o uncontrolled BP in the setting of medication non compliance. Current presentation not suggestive of dissection or PE Will resume home meds including Imdur, coreg, hydralazine, lasix, spirinolactone and monitor for now. Avoid acute aggressive drop in BP given chronicity of symptoms. telemetry, repeat trop but low suspicion for ACS. ASA/plavix/statin. Check lipid panel. Cocaine cessation counseling DVTPPX heparin Dispo pending clinical improvement, in 24 hours if symptoms better, BP improved and no new concerns. Discussed with patient in detail,. Total admit time 65 min.
--- NOTE | 2018-10-19 18:22 | HP ---
CHIEF COMPLAINT: Neck pain PCP: [facility] HISTORY OF PRESENT ILLNESS: Pt is a 58 y/o M with PMH HTN, HLD, NV x 3 (no pci), HFrEF, R carotid stenosis s /p CEA 4 weeks ago (Johnson), NIDDM who presented to ED with complaint of R neck pain. Pain is at the back of the base of the R side of the neck and radiates to the chest and mid back on the right side. Pt states that the pain has been constant since 8 am today. It is pressure like. ER course was notable for: (1) XRAY, US remarkable for 6mm density (2) HTN, (3) Recent Travel: denies PAST MEDICAL HISTORY: as above PAST SURGICAL HISTORY: as above Social History: Smoking: twice / week Alcohol: twice / week Drugs: cocaine 3 d ago Family History: HTN, DM Allergies IRMA Inhibitors Allergy (Verified 10/19/18 11:38) HOME MEDICATIONS: Home Medications Medication Instructions Recorded Furosemide [Lasix -] 40 mg PO DAILY #30 tablet 07/02/18 Isosorbide Mononitrate [Imdur -] 60 mg PO DAILY #30 tab.sr.24h 07/02/18 Hydralazine HCl 100 mg PO TID 08/09/18 Atorvastatin Ca [Lipitor] 80 mg PO HS #30 tablet 08/17/18 Carvedilol [Coreg -] 25 mg PO BID #60 tablet 08/17/18 Nifedipine ER [Procardia XL -] 60 mg PO DAILY #30 tab.er.24 08/17/18 Spironolactone [Aldactone -] 50 mg PO DAILY #30 tablet 08/17/18 Aspirin Coated [Ecotrin -] 3.25 mg PO DAILY 10/19/18 Clopidogrel Bisulfate [Plavix] 75 mg PO DAILY 10/19/18 Glipizide Xl [Glucotrol Xl -] 2.5 mg PO DAILY 10/19/18 metFORMIN HCL [Metformin ER 1,000 mg PO DAILY 10/19/18 Osmotic] REVIEW OF SYSTEMS CONSTITUTIONAL: Absent: fever, chills, diaphoresis, generalized weakness, malaise, loss of appetite, weight change HEENT: Absent: rhinorrhea, nasal congestion, throat pain, throat swelling, difficulty swallowing, mouth swelling, ear pain, eye pain, visual changes CARDIOVASCULAR: Absent: chest pain, syncope, palpitations, irregular heart rate, lightheadedness , peripheral edema RESPIRATORY: Absent: cough, shortness of breath, dyspnea with exertion, orthopnea, wheezing, stridor, hemoptysis GASTROINTESTINAL: Absent: abdominal pain, abdominal distension, nausea, vomiting, diarrhea, constipation, melena, hematochezia GENITOURINARY: Absent: dysuria, frequency, urgency, hesitancy, hematuria, flank pain, genital pain MUSCULOSKELETAL: neck pain Absent: myalgia, arthralgia, joint swelling, back pain, neck pain SKIN: Absent: rash, itching, pallor HEMATOLOGIC/IMMUNOLOGIC: Absent: easy bleeding, easy bruising, lymphadenopathy, frequent infections ENDOCRINE: Absent: unexplained weight gain, unexplained weight loss, heat intolerance, cold intolerance NEUROLOGIC: Absent: headache, focal weakness or paresthesias, dizziness, unsteady gait, seizure, mental status changes, bladder or bowel incontinence PSYCHIATRIC: Absent: anxiety, depression, suicidal or homicidal ideation, hallucinations. PHYSICAL EXAMINATION Vital Signs - 24 hr 10/19/18 10/19/18 11:35 12:55 Temperature 97.4 F L Pulse Rate 99 H Respiratory 18 Rate Blood Pressure 174/112 H Blood Pressure 182/114 H [Right Arm] O2 Sat by Pulse 97 Oximetry (%) GEN: Comfortable, NAD HEENT: NCAT, EOMI Neck: supple, no jvd. Pain with movement in any direction Cardio: rrr, normal s1s2, no mrg Pulm: cta b/l Abd: soft nondistended, nontender, no organomegally Ext: no edema Neuro: R lower facial numbness (pt states present since CEA). Otherwise, CN 2- 12 intact, sensation and strength intact distally Laboratory Results - last 24 hr 10/19/18 10/19/18 10/19/18 12:50 12:50 12:50 WBC 9.3 RBC 3.88 L Hgb 12.0 Hct 36.0 MCV 92.9 MCH 30.9 MCHC 33.3 RDW 14.4 Plt Count 462 H MPV 7.4 L Absolute Neuts (auto) 7.7 Neutrophils % 82.2 Lymphocytes % 10.5 D Monocytes % 5.8 Eosinophils % 0.8 Basophils % 0.7 Nucleated RBC % 0 PT with INR 11.80 INR 1.00 Sodium 135 L Potassium 4.1 Chloride 102 Carbon Dioxide 21 Anion Gap 12 BUN 18.7 H Creatinine 1.3 Est GFR (CKD-EPI)AfAm 70.20 Est GFR (CKD-EPI)NonAf 60.57 Random Glucose 111 H Calcium 9.5 Total Bilirubin 0.5 AST 24 ALT 29 Alkaline Phosphatase 118 H Creatine Kinase 152 Creatine Kinase Index 0.9 CK-MB (CK-2) 1.5 Troponin I < 0.02 B-Natriuretic Peptide 548.9 H Total Protein 8.0 Albumin 3.6 ASSESSMENT/PLAN: This is a 58 y/o M with PMH HTN, HLD, NV x 3 (no pci), HFrEF, R carotid stenosis s/p CEA 4 weeks ago ([facility]), NIDDM who presented to ED with complaint of R neck pain. #Neck pain -pt has a strong cardiovascular history with risk factors -complaint of chest/back/neck pain with htn -will observe on tele -r/o ACS, trend trops #htn -resume home meds -Procardia, Hydralazine, Isosorbide, Spironolactone, Lasix, coreg -pt is reportedly malignant HTN and refractory - #HFrEF -not in exacerbation -continue home meds -Lasix, spironolactone, coreg, procardia #HLD -c/w atorvastatin #R Carotid stenosis -recent CEA -Vascular consult -US: 6mm denisty anterior to R carotid bifurcation -control BP as above #NIDDM -DM diet -BGM ACHS -ISS ACHS -Hold po meds Glipizide, Metformin Visit type - Emergency Visit Emergency Visit: Yes ED Registration Date: 10/19/18 Care time: The patient presented to the Emergency Department on the above date and was hospitalized for further evaluation of their emergent condition. - New Patient This patient is new to me today: Yes Date on this admission: 10/19/18 - Critical Care Critical Care patient: No ATTENDING PHYSICIAN STATEMENT I saw and evaluated the patient. I reviewed the resident's note and discussed the case with the resident. I agree with the resident's findings and plan as documented. SUBJECTIVE: OBJECTIVE: ASSESSMENT AND PLAN:
[2018-10-19] MEDS ORDERED: ISOSORBIDE MONONITRATE 60 MG TAB.SR.24H (FP) PO ONE (18:27)
[2018-10-19] MEDS ORDERED: FUROSEMIDE 40 MG TABLET (FP) PO ONE (18:27)
[2018-10-19] MEDS ORDERED: NIFEdipine E.R 60 MG TABLET (UD) PO ONE (18:31)
[2018-10-19] MEDS ORDERED: hydrALAZINE HCL 50 MG TABLET (FP) PO ONE (18:32)
[2018-10-19] MEDS ORDERED: SPIRONOLACTONE 25 MG TABLET (FP) PO ONE (18:32)
[2018-10-19] MEDS: CYCLOBENZAPRINE HCL 5 MG TABLET PO PRN (20:04)
[2018-10-19] MEDS: ACETAMINOPHEN 325 MG TABLET (FP) PO PRN (20:05)
[2018-10-19] MEDS: hydrALAZINE HCL 50 MG TABLET (FP) PO SCH (21:18)
[2018-10-19] MEDS: CARVEDILOL 25 MG TABLET (FP) PO SCH (21:27)
[2018-10-19] MEDS: HEPARIN NA (PORCINE) 5,000 UNITS/ML 1ML VIAL SQ SCH (21:27)
[2018-10-19] MEDS: INSULIN SLIDING SCALE (NOVOLOG) 1 VIAL SQ SCH (21:32)
[2018-10-19] MEDS ORDERED: ATORVASTATIN CA 80 MG TABLET (FP) PO SCH (22:00)
[2018-10-19] MEDS ORDERED: PT OWN MED DRAWER 7, Y5N ONE (22:46)
[2018-10-20] MEDS: ACETAMINOPHEN 325 MG TABLET (FP) PO PRN ×3 (00:11→08:48)
[2018-10-20 00:46] VITALS: BMI 32.1
[2018-10-20] MEDS ORDERED: PT OWN MED DRAWER 7, Y5N ONE (04:05)
[2018-10-20] MEDS: CYCLOBENZAPRINE HCL 5 MG TABLET PO PRN (04:07)
[2018-10-20] MEDS: INSULIN SLIDING SCALE (NOVOLOG) 1 VIAL SQ SCH (06:00)
[2018-10-20] MEDS: hydrALAZINE HCL 50 MG TABLET (FP) PO SCH (06:00)
[2018-10-20] MEDS: HEPARIN NA (PORCINE) 5,000 UNITS/ML 1ML VIAL SQ SCH (06:00)
[2018-10-20 06:50] LABS: EOS % 2.7 % (0-4.5); HEMATOCRIT 33.3 % (35.4-49); HEMOGLOBIN 10.9 GM/dL (11.7-16.9); LYMPH % 18.9 % (8-40); MCH 30.7 pg (25.7-33.7); MCHC 32.6 g/dl (32.0-35.9); MEAN CELL VOLUME 94.1 fl (80-96); MEAN PLT VOLUME 7.6 fl (7.5-11.1); MONO % 8.9 % (3.8-10.2); NEUT % 68.5 % (42.8-82.8); PLATELET COUNT 423 K/MM3 (134-434); RBC 3.54 M/mm3 (4.00-5.60); RDW 14.9 % (11.9-15.9); WHITE BLOOD COUNT 7.2 K/mm3 (4.0-10.0)
[2018-10-20] MEDS ORDERED: glipiZIDE-XL 2.5 MG TAB.ER.24 PO SCH (07:00)
[2018-10-20 07:21] LABS: BILIRUBIN,TOTAL 0.4 mg/dL (0.2-1); BLOOD UREA NITROGEN 21.2 mg/dL (7-18); CALCIUM 8.7 mg/dL (8.5-10.1); CHOLESTEROL 137 mg/dL (50-200); CREATININE 1.5 mg/dL (0.55-1.3); HDL CHOLESTEROL 47 mg/dL (40-60); TOT PROT 6.7 g/dl (6.4-8.2); TRIGLYCERIDES 114 mg/dL (0-150)
--- NOTE | 2018-10-20 08:43 | CONSULT ---
- Consultation REQUESTING PROVIDER: CONSULT REQUEST: We have been asked to surgically evaluate this patient for s/p r cea. PCP:David Bolivar MD HISTORY OF PRESENT ILLNESS: 58 y/o M w/ PMHx HTN, NIDDM, HLD, MD x 3 (no pci), HFrEF, cocaine use, recent admission 08/05-08/17 for TIA found to have high grade R carotid stenosis s/p CEA on 08/[address] Johnson now a/w neck/upper back pain. Vascular contacted for evaluation. Pt reports he began having right neck and shoulder pain since yesterday morning. Denies any injury. Reports his walking has improved since his surgery. Denies any ue/le weakness, amaurosis fugax, difficulty speaking/confusion. PMHx: as above PSHx: as above Home Medications Medication Instructions Recorded Furosemide [Lasix -] 40 mg PO DAILY #30 tablet 07/02/18 Isosorbide Mononitrate [Imdur -] 60 mg PO DAILY #30 tab.sr.24h 07/02/18 Hydralazine HCl 100 mg PO TID 08/09/18 Atorvastatin Ca [Lipitor] 80 mg PO HS #30 tablet 08/17/18 Carvedilol [Coreg -] 25 mg PO BID #60 tablet 08/17/18 Nifedipine ER [Procardia XL -] 60 mg PO DAILY #30 tab.er.24 08/17/18 Spironolactone [Aldactone -] 50 mg PO DAILY #30 tablet 08/17/18 Aspirin Coated [Ecotrin -] 3.25 mg PO DAILY 10/19/18 Clopidogrel Bisulfate [Plavix] 75 mg PO DAILY 10/19/18 Glipizide Xl [Glucotrol Xl -] 2.5 mg PO DAILY 10/19/18 metFORMIN HCL [Metformin ER 1,000 mg PO DAILY 10/19/18 Osmotic] Cyclobenzaprine HCl 5 mg PO Q8H PRN #6 tablet 10/20/18 Allergies Allergy/AdvReac Type Severity Reaction Status Date / Time IRMA Inhibitors Allergy Verified 10/19/18 11:38 REVIEW OF SYSTEMS: CONSTITUTIONAL: Absent: fever, chills CARDIOVASCULAR: Absent: chest pain, syncope RESPIRATORY: Absent: cough, shortness of breath GASTROINTESTINAL: Absent: abdominal pain MUSCULOSKELETAL: + back pain PHYSICAL EXAM: GENERAL: Awake, alert, and fully oriented, in no acute distress. HEAD: Normal with no signs of trauma. Neck: R neck incision healing well, no erythema. LUNGS: Unlabored on RA, No accessory muscle use. NEUROLOGICAL: No facial asymmetry, tongue protrudes midline, speech fluent. B/L UE senior insight manager international strength intact and equal, b/l ue biceps/triceps 5/5, b/l le dorsi/ plantarflexion 5/5. SILT b/l ue/le. Vital Signs Temperature 97.7 F 10/20/18 06:00 Pulse Rate 81 10/20/18 06:00 Respiratory Rate 20 10/20/18 06:00 Blood Pressure 135/80 10/20/18 06:00 O2 Sat by Pulse Oximetry (%) 99 10/20/18 04:00 Lab Results WBC 7.2 K/mm3 (4.0-10.0) 10/20/18 05:50 RBC 3.54 M/mm3 (4.00-5.60) L 10/20/18 05:50 Hgb 10.9 GM/dL (11.7-16.9) L 10/20/18 05:50 Hct 33.3 % (35.4-49) L 10/20/18 05:50 MCV 94.1 fl (80-96) 10/20/18 05:50 MCHC 32.6 g/dl (32.0-35.9) 10/20/18 05:50 RDW 14.9 % (11.9-15.9) 10/20/18 05:50 Plt Count 423 K/MM3 (134-434) 10/20/18 05:50 Sodium 140 mmol/L (136-145) 10/20/18 05:50 Potassium 4.0 mmol/L (3.5-5.1) 10/20/18 05:50 Chloride 106 mmol/L (98-107) 10/20/18 05:50 Carbon Dioxide 26 mmol/L (21-32) 10/20/18 05:50 Anion Gap 7 MMOL/L (8-16) L 10/20/18 05:50 BUN 21.2 mg/dL (7-18) H 10/20/18 05:50 Creatinine 1.5 mg/dL (0.55-1.3) H 10/20/18 05:50 Random Glucose 205 mg/dL (74-106) H 10/20/18 05:50 Calcium 8.7 mg/dL (8.5-10.1) 10/20/18 05:50 INR 1.00 (0.83-1.09) 10/19/18 12:50 Carotid duplex: (10/19): There is a tubular anechoic density seen along anterior margin of the right common carotid bifurcation measuring approximately 6mm in depth suggestive of fluid, likely postoperative. A/P: 58 y/o M w/ PMHx HTN, NIDDM, HLD, MD x 3 (no pci), HFrEF, cocaine use, recent admission 08/05-08/17 for TIA found to have high grade R carotid stenosis s /p CEA on 08/[address] Johnson now a/w neck/upper back pain. Vascular contacted for evaluation. -No acute vascular intervention, pain appear muscultoskeletal in origin -Pt should f/u in October for repeat scan -Continue ASA 81mg qd and PLavix 75mg qd d/w attending Dr Johnson
[2018-10-20] MEDS ORDERED: METHYL SALICYLATE/MENTHOL OINT 30 GM TUBE TP PRN (08:44)
--- NOTE | 2018-10-20 08:50 | PN ---
Teaching Attending Note Name of Resident: Harley Colón ATTENDING PHYSICIAN STATEMENT I saw and evaluated the patient. I reviewed the resident's note and discussed the case with the resident. I agree with the resident's findings and plan as documented with exceptions below. SUBJECTIVE: Patient seen and examined, symptoms improved, no chest pain, dyspnea, dizziness or new concerns. OBJECTIVE: Vital Signs Period Temp Pulse Resp BP Sys/Caal Pulse Ox Last 24 Hr 97.4 F-98.6 F 77-99 16-20 127-182/72-114 97-99 Intake & Output 10/17/18 10/18/18 10/19/18 10/20/18 23:59 23:59 23:59 23:59 Intake Total 500 Balance 500 Weight 230 lb General: lying in bed in no acute distress neck: right neck well healed scar, no palpable mass or swelling or fluctuation CVS:S1S2 regular, telemetry NSVT (6 beats,aymp, overnight) Chest:CTAB, no rales or wheezing Abdomen:Soft, NT, ND Extremities: no edema Home Medications Medication Instructions Recorded Furosemide [Lasix -] 40 mg PO DAILY #30 tablet 07/02/18 Isosorbide Mononitrate [Imdur -] 60 mg PO DAILY #30 tab.sr.24h 07/02/18 Hydralazine HCl 100 mg PO TID 08/09/18 Atorvastatin Ca [Lipitor] 80 mg PO HS #30 tablet 08/17/18 Carvedilol [Coreg -] 25 mg PO BID #60 tablet 08/17/18 Nifedipine ER [Procardia XL -] 60 mg PO DAILY #30 tab.er.24 08/17/18 Spironolactone [Aldactone -] 50 mg PO DAILY #30 tablet 08/17/18 Aspirin Coated [Ecotrin -] 3.25 mg PO DAILY 10/19/18 Clopidogrel Bisulfate [Plavix] 75 mg PO DAILY 10/19/18 Glipizide Xl [Glucotrol Xl -] 2.5 mg PO DAILY 10/19/18 metFORMIN HCL [Metformin ER 1,000 mg PO DAILY 10/19/18 Osmotic] Cyclobenzaprine HCl 5 mg PO Q8H PRN #6 tablet 10/20/18 Methyl Salicylate/Menthol Oint 1 applic TP DAILY PRN #1 applic 10/20/18 [Analgesic Buckner -] Laboratory Results - last 24 hr 10/19/18 10/19/18 10/19/18 12:50 12:50 12:50 WBC 9.3 RBC 3.88 L Hgb 12.0 Hct 36.0 MCV 92.9 MCH 30.9 MCHC 33.3 RDW 14.4 Plt Count 462 H MPV 7.4 L Absolute Neuts (auto) 7.7 Neutrophils % 82.2 Lymphocytes % 10.5 D Monocytes % 5.8 Eosinophils % 0.8 Basophils % 0.7 Nucleated RBC % 0 PT with INR 11.80 INR 1.00 Sodium 135 L Potassium 4.1 Chloride 102 Carbon Dioxide 21 Anion Gap 12 BUN 18.7 H Creatinine 1.3 Est GFR (CKD-EPI)AfAm 70.20 Est GFR (CKD-EPI)NonAf 60.57 POC Glucometer Random Glucose 111 H Hemoglobin A1c % Calcium 9.5 Total Bilirubin 0.5 AST 24 ALT 29 Alkaline Phosphatase 118 H Creatine Kinase 152 Creatine Kinase Index 0.9 CK-MB (CK-2) 1.5 Troponin I < 0.02 B-Natriuretic Peptide 548.9 H Total Protein 8.0 Albumin 3.6 Triglycerides Cholesterol Total LDL Cholesterol HDL Cholesterol 10/19/18 10/19/18 10/20/18 21:00 21:26 05:50 WBC 7.2 RBC 3.54 L Hgb 10.9 L Hct 33.3 L MCV 94.1 MCH 30.7 MCHC 32.6 RDW 14.9 Plt Count 423 MPV 7.6 Absolute Neuts (auto) 4.9 Neutrophils % 68.5 Lymphocytes % 18.9 D Monocytes % 8.9 Eosinophils % 2.7 D Basophils % 1.0 Nucleated RBC % 0 PT with INR INR Sodium Potassium Chloride Carbon Dioxide Anion Gap BUN Creatinine Est GFR (CKD-EPI)AfAm Est GFR (CKD-EPI)NonAf POC Glucometer 161 Random Glucose Hemoglobin A1c % Calcium Total Bilirubin AST ALT Alkaline Phosphatase Creatine Kinase Creatine Kinase Index CK-MB (CK-2) Troponin I < 0.02 B-Natriuretic Peptide Total Protein Albumin Triglycerides Cholesterol Total LDL Cholesterol HDL Cholesterol 10/20/18 10/20/18 10/20/18 05:50 05:50 05:50 WBC RBC Hgb Hct MCV MCH MCHC RDW Plt Count MPV Absolute Neuts (auto) Neutrophils % Lymphocytes % Monocytes % Eosinophils % Basophils % Nucleated RBC % PT with INR INR Sodium 140 Potassium 4.0 Chloride 106 Carbon Dioxide 26 Anion Gap 7 L BUN 21.2 H Creatinine 1.5 H Est GFR (CKD-EPI)AfAm 59.05 Est GFR (CKD-EPI)NonAf 50.95 POC Glucometer Random Glucose 205 H Hemoglobin A1c % 5.1 Calcium 8.7 Total Bilirubin 0.4 AST 16 ALT 24 Alkaline Phosphatase 109 Creatine Kinase Creatine Kinase Index CK-MB (CK-2) Troponin I B-Natriuretic Peptide Total Protein 6.7 Albumin 3.0 L Triglycerides 114 Cholesterol 137 Total LDL Cholesterol 60 HDL Cholesterol 47 10/20/18 05:57 WBC RBC Hgb Hct MCV MCH MCHC RDW Plt Count MPV Absolute Neuts (auto) Neutrophils % Lymphocytes % Monocytes % Eosinophils % Basophils % Nucleated RBC % PT with INR INR Sodium Potassium Chloride Carbon Dioxide Anion Gap BUN Creatinine Est GFR (CKD-EPI)AfAm Est GFR (CKD-EPI)NonAf POC Glucometer 231 Random Glucose Hemoglobin A1c % Calcium Total Bilirubin AST ALT Alkaline Phosphatase Creatine Kinase Creatine Kinase Index CK-MB (CK-2) Troponin I B-Natriuretic Peptide Total Protein Albumin Triglycerides Cholesterol Total LDL Cholesterol HDL Cholesterol ASSESSMENT AND PLAN: 58 yom with PMhx of CAD s/p PCI/stent, PR/Angina pectoris, Diastolic Heart failure, Uncontrolled HTN, from med non compliance, Cocaine use, HLD, carotid stenosis s/p Rt CEA 07/2018 admitted with neck/back pain and found hypertensives -Neck/back pain, suspect musculoskeletal given point tenderness and worsening with Right shoulder movements -Atypical chest pain -Hypertensive urgency, from medication non compliance -Chronic diastolic heart failure -CAD s/p PCI/stent, PR/Angina pectoris -Cocaine use -NSVT -HLD -Carotid stenosis s/p rt CEA 07/2018 with post operative fluid collection Plan: ACS ruled out, symptoms improved. Vascular surgery input, conservative management, outpatient follow up. BP improved with resumption of meds Counseled on medication compliance and cocaine cessation with close outpatient follow up with PCP/cardiology and with vascular surgery flexeril/tylenol/bengay prn. D/c home today. Discussed with patient and nursing, all questions answered.
[2018-10-20] MEDS ORDERED: ASPIRIN 325 MG TABLET PO SCH (10:00)
[2018-10-20] MEDS ORDERED: FUROSEMIDE 40 MG TABLET (FP) PO SCH (10:00)
[2018-10-20] MEDS ORDERED: NIFEdipine E.R 60 MG TABLET (UD) PO SCH (10:00)
[2018-10-20] MEDS ORDERED: ISOSORBIDE MONONITRATE 60 MG TAB.SR.24H (FP) PO SCH (10:00)
[2018-10-20] MEDS ORDERED: SPIRONOLACTONE 25 MG TABLET (FP) PO SCH (10:00)
[2018-10-20] MEDS ORDERED: CLOPIDOGREL BISULFATE 75 MG TABLET (FP) PO SCH (10:00)
[2018-10-20] MEDS: CARVEDILOL 25 MG TABLET (FP) PO SCH (10:14)
[2018-10-20 10:20] VITALS: BP 148/91; PULSE 85; TEMP 97.8
--- NOTE | 2018-10-20 14:03 | DS ---
Physical Exam: SUBJECTIVE: Patient seen and examined at bedside. Pain persists and is related to movement. OBJECTIVE: Vital Signs Period Temp Pulse Resp BP Sys/Caal Pulse Ox Last 24 Hr 97.7 F-98.6 F 77-96 16-20 127-175/72-111 98-99 PHYSICAL EXAM Exam unchanged. GEN: Comfortable, NAD HEENT: NCAT, EOMI Neck: supple, no jvd. Pain with movement in any direction Cardio: rrr, normal s1s2, no mrg Pulm: cta b/l Abd: soft nondistended, nontender, no organomegally Ext: no edema Neuro: R lower facial numbness (pt states present since CEA). Otherwise, CN 2- 12 intact, sensation and strength intact distally LABS Laboratory Results - last 24 hr 10/19/18 10/19/18 10/19/18 12:50 21:00 21:26 WBC RBC Hgb Hct MCV MCH MCHC RDW Plt Count MPV Absolute Neuts (auto) Neutrophils % Lymphocytes % Monocytes % Eosinophils % Basophils % Nucleated RBC % Sodium 135 L Potassium 4.1 Chloride 102 Carbon Dioxide 21 Anion Gap 12 BUN 18.7 H Creatinine 1.3 Est GFR (CKD-EPI)AfAm 70.20 Est GFR (CKD-EPI)NonAf 60.57 POC Glucometer 161 Random Glucose 111 H Hemoglobin A1c % Calcium 9.5 Total Bilirubin 0.5 AST 24 ALT 29 Alkaline Phosphatase 118 H Creatine Kinase 152 Creatine Kinase Index 0.9 CK-MB (CK-2) 1.5 Troponin I < 0.02 < 0.02 B-Natriuretic Peptide 548.9 H Total Protein 8.0 Albumin 3.6 Triglycerides Cholesterol Total LDL Cholesterol HDL Cholesterol 10/20/18 10/20/18 10/20/18 05:50 05:50 05:50 WBC 7.2 RBC 3.54 L Hgb 10.9 L Hct 33.3 L MCV 94.1 MCH 30.7 MCHC 32.6 RDW 14.9 Plt Count 423 MPV 7.6 Absolute Neuts (auto) 4.9 Neutrophils % 68.5 Lymphocytes % 18.9 D Monocytes % 8.9 Eosinophils % 2.7 D Basophils % 1.0 Nucleated RBC % 0 Sodium 140 Potassium 4.0 Chloride 106 Carbon Dioxide 26 Anion Gap 7 L BUN 21.2 H Creatinine 1.5 H Est GFR (CKD-EPI)AfAm 59.05 Est GFR (CKD-EPI)NonAf 50.95 POC Glucometer Random Glucose 205 H Hemoglobin A1c % Calcium 8.7 Total Bilirubin 0.4 AST 16 ALT 24 Alkaline Phosphatase 109 Creatine Kinase Creatine Kinase Index CK-MB (CK-2) Troponin I B-Natriuretic Peptide Total Protein 6.7 Albumin 3.0 L Triglycerides 114 Cholesterol 137 Total LDL Cholesterol 60 HDL Cholesterol 47 10/20/18 10/20/18 05:50 05:57 WBC RBC Hgb Hct MCV MCH MCHC RDW Plt Count MPV Absolute Neuts (auto) Neutrophils % Lymphocytes % Monocytes % Eosinophils % Basophils % Nucleated RBC % Sodium Potassium Chloride Carbon Dioxide Anion Gap BUN Creatinine Est GFR (CKD-EPI)AfAm Est GFR (CKD-EPI)NonAf POC Glucometer 231 Random Glucose Hemoglobin A1c % 5.1 Calcium Total Bilirubin AST ALT Alkaline Phosphatase Creatine Kinase Creatine Kinase Index CK-MB (CK-2) Troponin I B-Natriuretic Peptide Total Protein Albumin Triglycerides Cholesterol Total LDL Cholesterol HDL Cholesterol HOSPITAL COURSE: Date of Admission:10/19/18 Date of Discharge: 10/20/18 This is a 58 y/o M with PMH HTN, HLD, PA x 3 (no pci), HFrEF, R carotid stenosis s/p CEA 4 weeks ago (Alex), NIDDM who presented to ED with complaint of R neck pain. His neck pain raised concern for atypical presentation of angina considering his strong cardiovascular history. ACS was ruled out. The patient's chronic medical problems were managed with home meds, Procardia, Hydralazine, Isosorbide , Spironolactone, Lasix, coreg. His oral diabetic medications were held and he was maintained on sliding scale. Pt stable for discharge. He was discharged with Flexeril for his neck muscle spasm and pain. Minutes to complete discharge: 30 Discharge Summary Reason For Visit: CHEST PAIN Condition: Stable - Instructions Diet, Activity, Other Instructions: You were in the hospital because of neck muscle spasms. You need to follow up with your primary doctor and with your vascular surgeon, Dr. Johnson. You had an ultrasound of the neck which showed a density at the site of your carotid surgery which is likely fluid from surgery, You were seen by surgeon team and you are advised outpatient follow up with him in 1-2 weeks to monitor the same. You can continue taking your home medications as before. You have been given a prescription for a muscle relaxant. Take Flexeril 5 mg three times per day as needed for muscle spasms Can apply bethany-estrada over the site Avoid heavy lifting or strenuous exercise. Please note that flexeril can cause dizziness, drowsiness. Do not drive or operate heavy machinery while on this medication. Do not take if sleepy or drowsy and taper as symptoms improve. Strictly advise cocaine cessation and follow up with your dicer machine operator and compliance with your home medications. If you have new symptoms or if your symptoms get worse, return to the emergency department or call your doctor. Referrals: Lenny Hernandez MD [Primary Care Provider] - Rajeev Johnson DO [Staff Physician] - Disposition: HOME - Home Medications Comprehensive Discharge Medication List: Ambulatory Orders Furosemide [Lasix -] 40 mg PO DAILY #30 tablet 07/02/18 Isosorbide Mononitrate [Imdur -] 60 mg PO DAILY #30 tab.sr.24h 07/02/18 Hydralazine HCl 100 mg PO TID 08/09/18 Atorvastatin Ca [Lipitor] 80 mg PO HS #30 tablet 08/17/18 Carvedilol [Coreg -] 25 mg PO BID #60 tablet 08/17/18 Nifedipine ER [Procardia XL -] 60 mg PO DAILY #30 tab.er.24 08/17/18 Spironolactone [Aldactone -] 50 mg PO DAILY #30 tablet 08/17/18 Aspirin Coated [Ecotrin -] 3.25 mg PO DAILY 10/19/18 Clopidogrel Bisulfate [Plavix] 75 mg PO DAILY 10/19/18 Glipizide Xl [Glucotrol Xl -] 2.5 mg PO DAILY 10/19/18 metFORMIN HCL [Metformin ER Osmotic] 1,000 mg PO DAILY 10/19/18 Cyclobenzaprine HCl 5 mg PO Q8H PRN #6 tablet 10/20/18 Methyl Salicylate/Menthol Oint [Analgesic Amenia -] 1 applic TP DAILY PRN #1 applic 10/20/18 This patient is new to me today: No Emergency Visit: No Critical Care patient: No - Discharge Referral Referred to [facility] Yes Physician Referral: Rajeev Johnson DO ([facility]) ATTENDING PHYSICIAN STATEMENT I saw and evaluated the patient. I reviewed the resident's note and discussed the case with the resident. I agree with the resident's findings and plan as documented. SUBJECTIVE: OBJECTIVE: ASSESSMENT AND PLAN:
== END 2018-10-20 11:18 | disposition home or self-care (01) ==
LOC: JER 11:28 → JERBED 16:19 → J4S 19:49
PROVIDERS: ADMIT Hospitalist; ATTEND Hospitalist
PROC: 3E0333Z Introduction of Anti-inflammatory into Peripheral Vein, Percutaneous Approach (ICD-10-PCS; principal; 2018-10-19)
PROC: 3E013VG Introduction of Insulin into Subcutaneous Tissue, Percutaneous Approach (ICD-10-PCS; 2018-10-19)
PROC: 3E013GC Introduction of Other Therapeutic Substance into Subcutaneous Tissue, Percutaneous Approach (ICD-10-PCS; 2018-10-19)
DX: R07.89 Other chest pain (principal); I16.0 Hypertensive urgency; M54.2 Cervicalgia; I11.0 Hypertensive heart disease with heart failure; I50.32 Chronic diastolic (congestive) heart failure; I25.119 Atherosclerotic heart disease of native coronary artery with unspecified angina pectoris; I25.2 Old myocardial infarction; F14.90 Cocaine use, unspecified, uncomplicated; E78.5 Hyperlipidemia, unspecified; I65.29 Occlusion and stenosis of unspecified carotid artery; F17.210 Nicotine dependence, cigarettes, uncomplicated; J44.9 Chronic obstructive pulmonary disease, unspecified; E11.9 Type 2 diabetes mellitus without complications; I42.0 Dilated cardiomyopathy; Z91.14 Patient's other noncompliance with medication regimen; Z95.5 Presence of coronary angioplasty implant and graft; Z86.73 Personal history of transient ischemic attack (TIA), and cerebral infarction without residual deficits; Z79.82 Long term (current) use of aspirin; Z79.84 Long term (current) use of oral hypoglycemic drugs
CPT/HCPCS: 36415; 71046-TC-FY; 73030-TC-RT-FY; 80053; 80061; 82550; 82553; 82962; 83036; 83721; 83880; 84484; 85025; 85610; 93005; 93010; 93880-TC; 96372; 96374; 99283-25; G0378; J1644

== ENCOUNTER 2018-10-30 06:58 | Inpatient (IN) | payer OTHER ==
--- NOTE | 2018-10-30 07:36 | PDOC ---
History of Present Illness - General Chief Complaint: Shortness of Breath Stated Complaint: DIFF BREATHING/ASTHMA Time Seen by Provider: 10/30/18 07:23 - History of Present Illness Initial Comments: Tank Ernandez is a 58yo man with a PMH of HTN, HLD, HFrEF, CAD s/p AL x3 (no PCI), Rt carotid stenosis s/p CEA (07/2018), NIDDM, COPD/asthma who presents with SOB starting approximately 1 hour prior to presentation. He additionally reports a cough but denies any other recent complaints or current symptoms including fever, chills, sick contacts, or travel. Mr Ernandez reports that he has been compliant with his medications at home but did not have a chance to take them yet this morning. He says that he tried using his home inhalers without relief of his SOB, and he says that he feels if he had a nebulizer at home he would not be here. Past History - Past Medical History Allergies/Adverse Reactions: Allergies Allergy/AdvReac Type Severity Reaction Status Date / Time IRMA Inhibitors Allergy Verified 10/30/18 07:13 Home Medications: Ambulatory Orders Furosemide [Lasix -] 40 mg PO DAILY #30 tablet 07/02/18 Isosorbide Mononitrate [Imdur -] 60 mg PO DAILY #30 tab.sr.24h 07/02/18 Hydralazine HCl 100 mg PO TID 08/09/18 Atorvastatin Ca [Lipitor] 80 mg PO HS #30 tablet 08/17/18 Carvedilol [Coreg -] 25 mg PO BID #60 tablet 08/17/18 Nifedipine ER [Procardia XL -] 60 mg PO DAILY #30 tab.er.24 08/17/18 Spironolactone [Aldactone -] 50 mg PO DAILY #30 tablet 08/17/18 Aspirin Coated [Ecotrin -] 3.25 mg PO DAILY 10/19/18 Clopidogrel Bisulfate [Plavix] 75 mg PO DAILY 10/19/18 Glipizide Xl [Glucotrol Xl -] 2.5 mg PO DAILY 10/19/18 metFORMIN HCL [Metformin ER Osmotic] 1,000 mg PO DAILY 10/19/18 Cyclobenzaprine HCl 5 mg PO Q8H PRN #6 tablet 10/20/18 Methyl Salicylate/Menthol Oint [Analgesic Bassett -] 1 applic TP DAILY PRN #1 applic 10/20/18 Anemia: No Asthma: Yes Cancer: No Cardiac Disorders: Yes (ACS, CAD - s/p PCI/Stents, AL X3, non-ischemic Cardiomyopathy,) CVA: Yes (2019) COPD: Yes CHF: Yes (Diastolic CHF) DVT: No Dementia: No Diabetes: Yes GI Disorders: No Disorders: No HTN: Yes Hypercholesterolemia: Yes Kidney Stones: No Liver Disease: No Seizures: No Thyroid Disease: No - Surgical History Abdominal Surgery: No Appendectomy: No Cardiac Surgery: Yes (Carotid endareterectomy) Cholecystectomy: No Lung Surgery: No Neurologic Surgery: No Orthopedic Surgery: Yes (Old injury fractured left ankle x2) - Reproductive History Testicular Surgery: No - Immunization History Immunization Up to Date: Yes - Suicide/Smoking/Psychosocial Hx Smoking Status: No Smoking History: Current some day smoker Have you smoked in the past 12 months: No Number of Cigarettes Smoked Daily: 2 If you are a former smoker, when did you quit?: smokes 2 x per week Information on smoking cessation initiated: No 'Breaking Loose' booklet given: 04/13/18 Hx Alcohol Use: No Drug/Substance Use Hx: No Substance Use Type: Cocaine Hx Substance Use Treatment: No Review of Systems - Review of Systems Comments:: General: No fevers, no chills, no weight or appetite change, no malaise HEENT: No changes in vision, no changes in hearing, no congestion, no sore throat CV: No chest pain, no palpitations, + LE edema Pulm: See HPI GI: No nausea or vomiting, no change in bowel habits, no melena : No frequency, no urgency, no dysuria Musc: No back pain, no joint swelling, no recent injury Skin: No rash, no lesions, no erythema Endo: No excessive thirst, no heat/cold intolerance Heme: No unusual bruising or bleeding, no swollen glands Neuro: No syncope, no numbness/tingling, no focal weakness Vasc: No claudication Psych: No recent change in mood, no SI or HI *Physical Exam - Vital Signs Last Vital Signs Temp Pulse Resp BP Pulse Ox 98 F 117 H 22 H 225/153 H 96 10/30/18 07:11 10/30/18 07:11 10/30/18 07:11 10/30/18 07:11 10/30/18 07:11 - Physical Exam Comments: General: Comfortable, no acute distress HEENT: PERRL, EOMI, MMM, voice normal, normal neck ROM, no LAD Cards: RRR, no murmur appreciated Pulm: Mild respiratory distress, tripoding. No wheezing clear Abd: Soft, nontender, nondistended Ext: Atraumatic. 2+ LE edema. ROM intact. WWP Skin: Normal color, no rashes or lesions Neuro: A&Ox3, CN grossly intact, normal speech, motor/sensory grossly intact and symmetric Psych: Mood appropriate to situation ED Treatment Course - LABORATORY CBC & Chemistry Diagram: 10/30/18 07:55 10/30/18 07:55 Medical Decision Making - Medical Decision Making 10/30/18 07:36 Tank Ernandez is a 58yo man with a PMH of HTN, HLD, HFrEF, CAD s/p AL x3 (no PCI), Rt carotid stenosis s/p CEA (07/2018), NIDDM, COPD/asthma who presents with SOB starting approximately 1 hour prior to presentation. - Appears to be in some distress on arrival, very poor air movement on exam - Duonebs q15min for SBO - CBC, CMP, CHF, trop, EKG, CXR - Reasses 10/30/18 09:09 - Pt given home BP meds due to significant HTN to SBP over 200. Pt reported not taking his medications today - Labs completed, reviewed. CBC and chemistry without significant change from baseline. BNP significantly elevated at over 6000, highest recorded here per chart review - Lungs exam significantly improved, good air movement b/l, after nebs - Xray w/ congestion and small left effusion 10/30/18 09:34 - BP decreased to 157/104 after meds - Pt now feeling improved. Re-examined; slight crackles in L lung base noted - [employer] sent for admission for CHF exacerbation given edema, SOB, congestion on xray and h/o noncompliance with meds at home 10/30/18 11:46 - Spoke to MAHENDRA Espinoza. Will accept to telemetry on Dr Menendez's service Discussed with Dr No. Pippa Kelly PGY2 *DC/Admit/Observation/Transfer Diagnosis at time of Disposition: Hypertensive urgency CHF exacerbation Qualifiers: Heart failure type: unspecified Qualified Code(s): I50.9 - Heart failure, unspecified - Discharge Dispostion Decision to Admit order: Yes - Referrals Referrals: Lenny Hernandez MD [Primary Care Provider] - - Patient Instructions - Post Discharge Activity
--- NOTE | 2018-10-30 07:37 | PDOC ---
Attending Attestation - Resident Resident Name: Pippa Kelly - ED Attending Attestation I have performed the following: I have examined & evaluated the patient, The case was reviewed & discussed with the resident, I agree w/resident's findings & plan, Exceptions are as noted - HPI HPI: 10/30/18 07:47 58y M hx of CVA sp R caroid endarecomy, diastolic CHF, CAD sp stent, COPD, HTN, HLD, presenst with complint of sob and cough producive of clear sputum since last night. Pt denies any fever/chills, nv, ches tpain, n/v, diaphoresis, back pain, leg pain. Ptes some leg swelling. mentions he was here a fe week ago with similar syptoms, got some nebs and felt better but never got refill of nebs at home. Pt has been using his inhalers without significant improvement. social: social smoker and etoh PMH: see hpi PSH: see hpi Meds: see med rec Allergies: IRMA-I Social: alcohol use, 5 cigarettes/day, occasional cocaine use Physical Exam Card: tachycardic pulm: deminished berath sounds, b/l wheezing diffusely, tachypneic, moderate respiratory disress abd: soft nontender ex: b/l pitting edema b/l suspect asthma exacerbation, abby obtain labs to r/o metabolic derangemnt, chf exacerbation will give duo nebs, steroids, cxr, will reassess - Physicial Exam PE: 10/30/18 10:14 see above - Critical Care Time Total Critical Care Time: 35 Critical Care Statement: The care of this patient involved high complexity decision making to prevent further life threatening deterioration of the patient 's condition and/or to evaluate & treat vital organ system(s) failure or risk of failure. - Medical Decision Making 10/30/18 10:13 pt doing better RR and breath sounds improved, no respiratory distress currently vitals noramlied pts labs / cxr suggests an element chf will admit for further management pt was also notably hypertensive - he hadnt taken his bp meds du eot his sob - we gave him his meds with improvement of his BP Heart Score/ECG Review - ECG Impressions Comment:: 10/30/18 10:23 Twelve-lead EKG was performed and reviewed by me. There is normal sinus rhythm with a normal rate. Rate of 91 The axis is normal. QTc interval of 489 There is normal R wave progression Nonspecific T wave abnormality
[2018-10-30] MEDS ORDERED: methylPREDNISolone NA SUCC 125 MG/2 ML VIAL IVPUSH ONE (07:46)
[2018-10-30] MEDS ORDERED: MAGNESIUM SULF 50% (8.12 MEQ/2 ML-1 GM VIAL) IVPB ONE (07:46)
[2018-10-30] MEDS ORDERED: ALBUTEROL SO4 2.5/IPRATROPIUM 0.5 INH SOL 3 ML VIAL.NEB. NEB ONE (07:51)
[2018-10-30] MEDS ORDERED: methylPREDNISolone NA SUCC 125 MG/2 ML VIAL ONE (07:51)
[2018-10-30] MEDS ORDERED: MAGNESIUM 1GM/D5W - 2 GM/200 ML IVPB IVPB ONE (07:52)
[2018-10-30] MEDS: ALBUTEROL SO4 2.5/IPRATROPIUM 0.5 INH SOL 3 ML VIAL.NEB. NEB SCH ×4 (08:11→08:54)
[2018-10-30 08:21] LABS: BASO % 0.9 % (0-2.0); EOS % 1.5 % (0-4.5); HEMATOCRIT 30.1 % (35.4-49); HEMOGLOBIN 9.8 GM/dL (11.7-16.9); LYMPH % 10.9 % (8-40); MCH 30.8 pg (25.7-33.7); MCHC 32.6 g/dl (32.0-35.9); MEAN CELL VOLUME 94.5 fl (80-96); MEAN PLT VOLUME 7.4 fl (7.5-11.1); MONO % 7.4 % (3.8-10.2); NEUT % 79.3 % (42.8-82.8); PLATELET COUNT 429 K/MM3 (134-434); RBC 3.19 M/mm3 (4.00-5.60); RDW 14.7 % (11.9-15.9); WHITE BLOOD COUNT 11.1 K/mm3 (4.0-10.0)
[2018-10-30] MEDS ORDERED: ISOSORBIDE MONONITRATE 60 MG TAB.SR.24H (FP) PO ONE ×2 (08:31→08:41)
[2018-10-30] MEDS ORDERED: FUROSEMIDE 40 MG TABLET (FP) PO ONE (08:31)
[2018-10-30] MEDS ORDERED: SPIRONOLACTONE 25 MG TABLET (FP) PO ONE (08:31)
[2018-10-30] MEDS ORDERED: CARVEDILOL 25 MG TABLET (FP) PO ONE (08:31)
[2018-10-30] MEDS ORDERED: hydrALAZINE HCL 50 MG TABLET (FP) PO ONE (08:31)
[2018-10-30 08:39] LABS: ALBUMIN 3.4 g/dl (3.4-5.0); BILIRUBIN,TOTAL 0.5 mg/dL (0.2-1); BLOOD UREA NITROGEN 25.5 mg/dL (7-18); CALCIUM 8.9 mg/dL (8.5-10.1); CREATININE 1.5 mg/dL (0.55-1.3); POTASSIUM 4.7 mmol/L (3.5-5.1); TOT PROT 7.3 g/dl (6.4-8.2)
[2018-10-30] MEDS ORDERED: FUROSEMIDE 40 MG TABLET (FP) ONE (08:40)
[2018-10-30] MEDS ORDERED: hydrALAZINE HCL 25 MG TABLET (FP) ONE (08:41)
[2018-10-30] MEDS ORDERED: CARVEDILOL 12.5 MG TABLET (FP) ONE (08:41)
[2018-10-30] MEDS ORDERED: SPIRONOLACTONE 25 MG TABLET (FP) ONE (08:42)
[2018-10-30] MEDS ORDERED: NIFEdipine E.R. 30 MG TABLET (FP) ONE (10:49)
[2018-10-30] MEDS: NIFEdipine E.R 60 MG TABLET (UD) PO SCH (10:55)
[2018-10-30] MEDS ORDERED: CYCLOBENZAPRINE HCL 5 MG TABLET PO PRN (14:52)
--- NOTE | 2018-10-30 14:55 | HP ---
CHIEF COMPLAINT: shortness of breath PCP: Dr. Esquivel HISTORY OF PRESENT ILLNESS: Patient is a 58 year old male with a significant past medical history of hypertension, diabetes, hyperlipidemia, AR x 3, cocaine use, COPD/asthma. Patient with a recent admission for TIA and found to have high grade right carotid stenosis. He is s/p CEA on 08/[address] Johnson. Patient presents to the ED today with c/o shortness of breath that started starting today. He also reports a non producitve cough but denies any other symptoms such as fever, chills, sick contacts or travel. No chest pain reported. He usually ambulates with a cane for right knee arthritis. He reports that he has been compliant with his medications at home but did not have a chance to take them yet this morning. He says that he tried using his home inhalers without relief of his shortness of breath whic prompted an ED visit. ER course was notable for: (1) bnp 6884.6 (2) bun/creat: 28/1.5 (3) hypertensive urgency 193/145 Recent Travel: none PAST MEDICAL/MEDICAL HISTORY: hypertension, diabetes, hyperlipidemia, AR x 3, cocaine use, COPD/asthma. Patient with a recent admission for TIA and found to have high grade right carotid stenosis. He is s/p CEA on 08/[address] Johnson Social History: Smoking: occasionally a few times per week Alcohol: few beers, denies daily alcohol use Drugs: cocaine Family History: Allergies IRMA Inhibitors Allergy (Verified 10/30/18 07:13) HOME MEDICATIONS: Home Medications Medication Instructions Recorded Furosemide [Lasix -] 40 mg PO DAILY #30 tablet 07/02/18 Isosorbide Mononitrate [Imdur -] 60 mg PO DAILY #30 tab.sr.24h 07/02/18 Hydralazine HCl 100 mg PO TID 08/09/18 Atorvastatin Ca [Lipitor] 80 mg PO HS #30 tablet 08/17/18 Carvedilol [Coreg -] 25 mg PO BID #60 tablet 08/17/18 Nifedipine ER [Procardia XL -] 60 mg PO DAILY #30 tab.er.24 08/17/18 Spironolactone [Aldactone -] 50 mg PO DAILY #30 tablet 08/17/18 Aspirin Coated [Ecotrin -] 3.25 mg PO DAILY 10/19/18 Clopidogrel Bisulfate [Plavix] 75 mg PO DAILY 10/19/18 Glipizide Xl [Glucotrol Xl -] 2.5 mg PO DAILY 10/19/18 metFORMIN HCL [Metformin ER 1,000 mg PO DAILY 10/19/18 Osmotic] Cyclobenzaprine HCl 5 mg PO Q8H PRN #6 tablet 10/20/18 Methyl Salicylate/Menthol Oint 1 applic TP DAILY PRN #1 applic 10/20/18 [Analgesic [place] -] REVIEW OF SYSTEMS CONSTITUTIONAL: Absent: fever, chills, diaphoresis, generalized weakness, malaise, loss of appetite, weight change HEENT: Absent: rhinorrhea, nasal congestion, throat pain, throat swelling, difficulty swallowing, mouth swelling, ear pain, eye pain, visual changes CARDIOVASCULAR: Absent: chest pain, syncope, palpitations, irregular heart rate, lightheadedness RESPIRATORY: Absent: stridor, hemoptysis GASTROINTESTINAL: Absent: abdominal pain, abdominal distension, nausea, vomiting, diarrhea, constipation, melena, hematochezia GENITOURINARY: Absent: dysuria, frequency, urgency, hesitancy, hematuria, flank pain, genital pain MUSCULOSKELETAL: Absent: myalgia, arthralgia, joint swelling, back pain, neck pain SKIN: Absent: rash, itching, pallor HEMATOLOGIC/IMMUNOLOGIC: Absent: easy bleeding, easy bruising, lymphadenopathy, frequent infections NEUROLOGIC: Absent: headache, focal weakness or paresthesias, dizziness, unsteady gait, seizure, mental status changes, bladder or bowel incontinence PSYCHIATRIC: Absent: anxiety, depression, suicidal or homicidal ideation, hallucinations. PHYSICAL EXAMINATION Vital Signs - 24 hr 10/30/18 10/30/18 10/30/18 07:11 08:05 09:15 Temperature 98 F Pulse Rate 117 H Pulse Rate [ 115 H 104 H Left Apical] Respiratory 22 H 18 18 Rate Blood Pressure 225/153 H Blood Pressure 193/145 H 182/117 H [Left Arm] O2 Sat by Pulse 96 100 94 L Oximetry (%) 10/30/18 10/30/18 10:56 11:08 Temperature Pulse Rate 92 H Pulse Rate [ 92 H Left Apical] Respiratory 18 Rate Blood Pressure Blood Pressure 155/106 H [Left Arm] O2 Sat by Pulse 93 L 93 L Oximetry (%) GENERAL: Awake, alert, and fully oriented, in no acute distress. HEAD: Normal with no signs of trauma. EYES: Pupils equal, round and reactive to light, extraocular movements intact, sclera anicteric, conjunctiva clear. No lid lag. EARS, NOSE, THROAT: Ears normal, nares patent, oropharynx clear without exudates. Moist mucous membranes. NECK: Normal range of motion, supple without lymphadenopathy, JVD, or masses. LUNGS: diminished bilaterally, short of breath with exertion HEART: tachycardia ABDOMEN: Soft, nontender, not distended, normoactive bowel sounds, no guarding, no rebound, no masses. No hepatomegaly or splenomegaly. MUSCULOSKELETAL: Normal range of motion at all joints. No bony deformities or tenderness. No CVA tenderness. UPPER EXTREMITIES: +2 lower ext edema LOWER EXTREMITIES: 2+ pulses, warm, well-perfused. No calf tenderness. No peripheral edema. Laboratory Results - last 24 hr 10/30/18 10/30/18 10/30/18 07:55 07:55 07:55 WBC 11.1 H RBC 3.19 L Hgb 9.8 L Hct 30.1 L MCV 94.5 MCH 30.8 MCHC 32.6 RDW 14.7 Plt Count 429 MPV 7.4 L Absolute Neuts (auto) 8.8 H Neutrophils % 79.3 Lymphocytes % 10.9 D Monocytes % 7.4 Eosinophils % 1.5 Basophils % 0.9 Nucleated RBC % 0 Sodium 139 Potassium 4.7 Chloride 104 Carbon Dioxide 25 Anion Gap 10 BUN 25.5 H Creatinine 1.5 H Est GFR (CKD-EPI)AfAm 59.05 Est GFR (CKD-EPI)NonAf 50.95 Random Glucose 209 H Calcium 8.9 Total Bilirubin 0.5 AST 55 H ALT 71 H Alkaline Phosphatase 242 H Creatine Kinase 122 Troponin I 0.02 B-Natriuretic Peptide 6884.6 H Total Protein 7.3 Albumin 3.4 ASSESSMENT/PLAN: Problem List - Problem (1) CHF exacerbation Assessment/Plan: elevated BNP, greater than previous admission. 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 Also has +2 lower ext edema. Monitor BP q 4 until stable continue home medications on hydralazine 100mg tid Code(s): I16.0 - HYPERTENSIVE URGENCY (3) [id number] kidney injury Assessment/Plan: monitor with daily labs Code(s): N17.9 - ACUTE KIDNEY FAILURE, UNSPECIFIED; N18.9 - CHRONIC KIDNEY DISEASE, UNSPECIFIED Qualifiers: Chronic kidney disease stage: stage 3 (moderate) (4) Cerebrovascular disease Assessment/Plan: on lipitor Code(s): I67.9 - CEREBROVASCULAR DISEASE, UNSPECIFIED (5) Cocaine abuse Assessment/Plan: admits to recent cocaine use Code(s): F14.10 - COCAINE ABUSE, UNCOMPLICATED (6) Nicotine abuse Assessment/Plan: cessation discussed. Code(s): Z72.0 - TOBACCO USE (7) Shortness of breath Assessment/Plan: chest xray with increased congestive changes will order oxygen and duonebs scheduled. pulmonary consulted. Code(s): R06.02 - SHORTNESS OF BREATH (8) Acute on chronic diastolic (congestive) heart failure Code(s): I50.33 - ACUTE ON CHRONIC DIASTOLIC (CONGESTIVE) HEART FAILURE (9) Diabetes Assessment/Plan: on novolog ss, add levemir Code(s): E11.9 - TYPE 2 DIABETES MELLITUS WITHOUT COMPLICATIONS (10) COPD (chronic obstructive pulmonary disease) Assessment/Plan: oxygen 2 liters with scheduled duonebs. may need systemic steriods if not improving. received solumedrol 125 mg in the ED. Code(s): J44.9 - CHRONIC OBSTRUCTIVE PULMONARY DISEASE, UNSPECIFIED (11) Prophylactic measure Assessment/Plan: fen tolerating po monitor electrolytes full code Code(s): Z29.9 - ENCOUNTER FOR PROPHYLACTIC MEASURES, UNSPECIFIED Visit type - Emergency Visit Emergency Visit: Yes ED Registration Date: 10/30/18 Care time: The patient presented to the Emergency Department on the above date and was hospitalized for further evaluation of their emergent condition. - New Patient This patient is new to me today: Yes Date on this admission: 10/30/18 - Critical Care Critical Care patient: No
[2018-10-30] MEDS: INSULIN SLIDING SCALE (NOVOLOG) 1 VIAL SQ SCH ×2 (16:37→23:46)
[2018-10-30] MEDS ORDERED: INSULIN (LEVEMIR) 100 UNITS/ML UNITS SQ SCH (22:00)
[2018-10-30] MEDS: CARVEDILOL 25 MG TABLET (FP) PO SCH (23:45)
[2018-10-30] MEDS: methylPREDNISolone NA SUCC 40 MG/1 ML VIAL IVPUSH SCH (23:45)
[2018-10-30] MEDS: ATORVASTATIN CA 80 MG TABLET (FP) PO SCH (23:45)
[2018-10-30] MEDS: hydrALAZINE HCL 50 MG TABLET (FP) PO SCH (23:45)
[2018-10-31] MEDS: ALBUTEROL SO4 2.5/IPRATROPIUM 0.5 INH SOL 3 ML VIAL.NEB. NEB SCH ×7 (00:55→23:49)
[2018-10-31] MEDS: methylPREDNISolone NA SUCC 40 MG/1 ML VIAL IVPUSH SCH ×3 (02:29→17:16)
[2018-10-31] MEDS: hydrALAZINE HCL 50 MG TABLET (FP) PO SCH ×3 (06:35→21:51)
[2018-10-31] MEDS: FUROSEMIDE 40 MG/4 ML INJECTABLE VIAL IVPUSH SCH ×2 (06:36→13:56)
[2018-10-31 07:24] LABS: BASO % 0.1 % (0-2.0); HEMATOCRIT 31.2 % (35.4-49); HEMOGLOBIN 9.8 GM/dL (11.7-16.9); LYMPH % 3.3 % (8-40); MCH 30.1 pg (25.7-33.7); MCHC 31.5 g/dl (32.0-35.9); MEAN CELL VOLUME 95.5 fl (80-96); MONO % 1.8 % (3.8-10.2); NEUT % 94.8 % (42.8-82.8); PLATELET COUNT 409 K/MM3 (134-434); RBC 3.27 M/mm3 (4.00-5.60); WHITE BLOOD COUNT 14.5 K/mm3 (4.0-10.0)
[2018-10-31 07:39] LABS: ALBUMIN 3.3 g/dl (3.4-5.0); BILIRUBIN,TOTAL 0.4 mg/dL (0.2-1); BLOOD UREA NITROGEN 30.8 mg/dL (7-18); CALCIUM 9.2 mg/dL (8.5-10.1); CREATININE 1.7 mg/dL (0.55-1.3); MAGNESIUM 2.5 mg/dL (1.8-2.4); POTASSIUM 5.1 mmol/L (3.5-5.1); TOT PROT 7.4 g/dl (6.4-8.2)
[2018-10-31] MEDS ORDERED: INSULIN (LEVEMIR) 100 UNITS/ML UNITS SQ ONE (08:30)
[2018-10-31] MEDS ORDERED: INSULIN (NOVOLOG) ASPART 100 UNITS/ML 10ML VIAL SQ ONE ×3 (09:12→17:19)
[2018-10-31] MEDS: CLOPIDOGREL BISULFATE 75 MG TABLET (FP) PO SCH (09:13)
[2018-10-31] MEDS: NIFEdipine E.R 60 MG TABLET (UD) PO SCH (09:13)
[2018-10-31] MEDS: ISOSORBIDE MONONITRATE 60 MG TAB.SR.24H (FP) PO SCH (09:14)
[2018-10-31] MEDS: SPIRONOLACTONE 25 MG TABLET (FP) PO SCH (09:15)
[2018-10-31] MEDS: ASPIRIN COATED 81 MG TABLET.EC PO SCH (09:16)
[2018-10-31] MEDS: CARVEDILOL 25 MG TABLET (FP) PO SCH ×2 (09:17→21:51)
[2018-10-31] MEDS: INSULIN SLIDING SCALE (NOVOLOG) 1 VIAL SQ SCH ×4 (09:21→21:52)
[2018-10-31] MEDS ORDERED: NIFEdipine E.R 60 MG TABLET (UD) PO SCH (10:00)
[2018-10-31] MEDS ORDERED: FUROSEMIDE 40 MG/4 ML INJECTABLE VIAL IVPUSH SCH (10:00)
[2018-10-31] MEDS ORDERED: ASPIRIN 325 MG ENTERIC COATED TABLET (FP) PO SCH (10:00)
--- NOTE | 2018-10-31 10:31 | CON.CARD ---
Consult Consult Specialty:: Cardiology Referred by:: Hospitalist Reason for Consultation:: Cardiac evaluation - History of Present Illness Chief Complaint: Shortness of breath History of Present Illness: Patient is a 58 year old male with underlying history of bronchial asthma, CAD s /p [place], PCI/stent, COPD, NIDDM, diastolic dysfunction with h/o failure, TIA, carotid stenosis s/p CEA and substance abuse (Cocaine) in the past who presents with shortness of breath and non-productive cough. Patient denies chest pain or palpitations. He denies paroxysmal nocturnal dyspnea or orthopnea. He denies fever or chills. He denies nausea, vomiting, diarrhea or abdominal pain. He denies headache or lightheadedness. - History Source History Provided By: Patient, Medical Record Limitations to Obtaining History: No Limitations - Past Medical History Cardio/Vascular: Yes: CAD (S/P PCI), HTN, Hyperlipdemia, [place], Other (dilated cardiomyopathy (nonischemic), LV systolic dysfunction, ) Pulmonary: Yes: Asthma Gastrointestinal: Yes: GERD Renal/: Yes: Renal Inusuff Musculoskeletal: Yes: Chronic low back pain Additional Medical History: Rightt achilles tendon tear. Rightt testicular torsion. Angioedema due to ACEI - Alcohol/Substance Use Hx Alcohol Use: No Number of Drinks Daily: 3 (beer) History of Substance Use: reports: Cocaine - Smoking History Smoking history: Current some day smoker Have you smoked in the past 12 months: No Aproximately how many cigarettes per day: 2 If you are a former smoker, when did you quit?: smokes 2 x per week - Social History ADL: Independent Occupation: Employed History of Recent Travel: No Home Medications - Allergies Allergies/Adverse Reactions: Allergies Allergy/AdvReac Type Severity Reaction Status Date / Time IRMA Inhibitors Allergy Verified 10/30/18 07:13 - Home Medications Home Medications: Ambulatory Orders Furosemide [Lasix -] 40 mg PO DAILY #30 tablet 07/02/18 Isosorbide Mononitrate [Imdur -] 60 mg PO DAILY #30 tab.sr.24h 07/02/18 Hydralazine HCl 100 mg PO TID 08/09/18 Atorvastatin Ca [Lipitor] 80 mg PO HS #30 tablet 08/17/18 Carvedilol [Coreg -] 25 mg PO BID #60 tablet 08/17/18 Nifedipine ER [Procardia XL -] 60 mg PO DAILY #30 tab.er.24 08/17/18 Spironolactone [Aldactone -] 50 mg PO DAILY #30 tablet 08/17/18 Aspirin Coated [Ecotrin -] 3.25 mg PO DAILY 10/19/18 Clopidogrel Bisulfate [Plavix] 75 mg PO DAILY 10/19/18 Glipizide Xl [Glucotrol Xl -] 2.5 mg PO DAILY 10/19/18 metFORMIN HCL [Metformin ER Osmotic] 1,000 mg PO DAILY 10/19/18 Cyclobenzaprine HCl 5 mg PO Q8H PRN #6 tablet 10/20/18 Methyl Salicylate/Menthol Oint [Analgesic [place] -] 1 applic TP DAILY PRN #1 applic 10/20/18 Family Disease History - Family Disease History Family Disease History: Diabetes: Sister, Other: Brother (DRUGS) Review of Systems - Review of Systems Constitutional: denies: Chills, Fever Cardiovascular: reports: Shortness of Breath. denies: Chest Pain, Palpitations Respiratory: reports: Cough, SOB. denies: Orthopnea, PND Gastrointestinal: denies: Abdominal Pain, Melena, Nausea, Rectal Bleeding, Vomiting Neurological: denies: Dizziness, Headache, Seizure, Syncope Vital Signs: Vital Signs Temperature 98.8 F 10/31/18 09:15 Pulse Rate 88 10/31/18 09:15 Respiratory Rate 18 10/31/18 09:15 Blood Pressure 161/91 10/31/18 09:15 O2 Sat by Pulse Oximetry (%) 98 10/31/18 01:47 Eyes: Yes: PERRL HENT: Yes: Atraumatic Neck: Yes: Supple Respiratory: Yes: Diminished Gastrointestinal: Yes: Normal Bowel Sounds, Soft. No: Tenderness Cardiovascular: Yes: Regular Rate and Rhythm JVD: No PMI: Non-Displaced Heart Sounds: Yes: S1, S2 Edema: Yes Edema: LLE: Trace, RLE: Trace - Other Data Labs, Other Data: CBC, BMP 10/31/18 06:30 10/31/18 06:30 Troponin, BNP 10/30/18 18:30 Troponin I < 0.02 Normal sinus rhythm with nonspecific T abnormality Imaging - Results Chest X-ray: Report Reviewed (Congestive changes and possible infiltrates) EKG: Report Reviewed Problem List - Problems (1) CHF exacerbation Code(s): I50.9 - HEART FAILURE, UNSPECIFIED Qualifiers: Heart failure type: unspecified Qualified Code(s): I50.9 - Heart failure, unspecified (2) COPD (chronic obstructive pulmonary disease) Code(s): J44.9 - CHRONIC OBSTRUCTIVE PULMONARY DISEASE, UNSPECIFIED (3) Diabetes Code(s): E11.9 - TYPE 2 DIABETES MELLITUS WITHOUT COMPLICATIONS (4) Qvtaz-id-fxqltgf kidney injury Code(s): N17.9 - ACUTE KIDNEY FAILURE, UNSPECIFIED; N18.9 - CHRONIC KIDNEY DISEASE, UNSPECIFIED Qualifiers: Chronic kidney disease stage: stage 3 (moderate) (5) Cerebrovascular disease Code(s): I67.9 - CEREBROVASCULAR DISEASE, UNSPECIFIED (6) Cocaine abuse Code(s): F14.10 - COCAINE ABUSE, UNCOMPLICATED (7) Shortness of breath Code(s): R06.02 - SHORTNESS OF BREATH (8) Acute on chronic diastolic (congestive) heart failure Code(s): I50.33 - ACUTE ON CHRONIC DIASTOLIC (CONGESTIVE) HEART FAILURE (9) CAD (coronary artery disease) Code(s): I25.10 - ATHSCL HEART DISEASE OF [place] CORONARY ARTERY W/O ANG PCTRS Qualifiers: Coronary Disease-Associated Artery/Lesion type: [place] artery [place] vs. transplanted heart: [place] heart Associated angina: without angina Qualified Code(s): I25.10 - Atherosclerotic heart disease of [place] coronary artery without angina pectoris (10) Diastolic dysfunction without heart failure Code(s): I51.9 - HEART DISEASE, UNSPECIFIED (11) HTN (hypertension) Code(s): I10 - ESSENTIAL (PRIMARY) HYPERTENSION Qualifiers: Hypertension type: essential hypertension Qualified Code(s): I10 - Essential (primary) hypertension (12) Hyperlipidemia Code(s): E78.5 - HYPERLIPIDEMIA, UNSPECIFIED Qualifiers: Hyperlipidemia type: pure hypercholesterolemia Qualified Code(s): E78.00 - Pure hypercholesterolemia, unspecified Assessment/Plan 1. Acute on chronic class I-II NYHA classification diastolic LV failure 2. HTN 3. CAD history of [place], PCI/stent, angina pectoris 4. DM 5. Hypercholesterolemia 6. Cerebrovascular disease 7. TIA post CEA 8. COPD 9. Acute on CKD 10. Substance abuse (Cocaine) 11. History of angioedema related to ACEI PLAN: 1. Continue ASA and Plavix 2. IV Furosemide and Spironolactone. Monitor renal function and electrolytes 3. Continue Carvedilol, Procardia XL and Hydralazine 4. Imdur 5. ASA 6. Lipitor 7. Imdur 8. Steroids and bronchodilators Further plans are to follow Nicholas Singletary MD
--- NOTE | 2018-10-31 11:14 | CON.PULM ---
Consult Consult Specialty:: PULMONARY Referred by:: HALIE Reason for Consultation:: COPD - History of Present Illness Chief Complaint: SOB History of Present Illness: 58y M hx of CVA sp R caroid endarterectomy, diastolic CHF, CAD sp stent, COPD, HTN, HLD, presenst with complaint of sob and cough productive of clear sputum . Pt denies any fever/chills, nv, ches pain, n/v, diaphoresis, back pain, leg pain. Has some leg swelling, mentions he was here a few weeks ago with similar symptoms, got some nebs and felt better but never got refill of nebs at home. Pt has been using his inhalers without significant improvement. 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 Rightt testicular torsion. Angioedema due to ACEI - Alcohol/Substance Use Hx Alcohol Use: No Number of Drinks Daily: 3 (beer) History of Substance Use: reports: Cocaine - Smoking History Smoking history: Current some day smoker Have you smoked in the past 12 months: No Aproximately how many cigarettes per day: 2 If you are a former smoker, when did you quit?: smokes 2 x per week - Social History ADL: Independent Occupation: Employed History of Recent Travel: No Home Medications - Allergies Allergies/Adverse Reactions: Allergies Allergy/AdvReac Type Severity Reaction Status Date / Time IRMA Inhibitors Allergy Verified 10/30/18 07:13 - Home Medications Home Medications: Ambulatory Orders Furosemide [Lasix -] 40 mg PO DAILY #30 tablet 07/02/18 Isosorbide Mononitrate [Imdur -] 60 mg PO DAILY #30 tab.sr.24h 07/02/18 Hydralazine HCl 100 mg PO TID 08/09/18 Atorvastatin Ca [Lipitor] 80 mg PO HS #30 tablet 08/17/18 Carvedilol [Coreg -] 25 mg PO BID #60 tablet 08/17/18 Nifedipine ER [Procardia XL -] 60 mg PO DAILY #30 tab.er.24 08/17/18 Spironolactone [Aldactone -] 50 mg PO DAILY #30 tablet 08/17/18 Aspirin Coated [Ecotrin -] 3.25 mg PO DAILY 10/19/18 Clopidogrel Bisulfate [Plavix] 75 mg PO DAILY 10/19/18 Glipizide Xl [Glucotrol Xl -] 2.5 mg PO DAILY 10/19/18 metFORMIN HCL [Metformin ER Osmotic] 1,000 mg PO DAILY 10/19/18 Cyclobenzaprine HCl 5 mg PO Q8H PRN #6 tablet 10/20/18 Methyl Salicylate/Menthol Oint [Analgesic [place] -] 1 applic TP DAILY PRN #1 applic 10/20/18 Family Disease History - Family Disease History Family Disease History: Diabetes: Sister, Other: Brother (DRUGS) Review of Systems - Review of Systems Constitutional: denies: Fever, Loss of Appetite Eyes: denies: Double Vision HENT: denies: Ear Discharge Neck: denies: Decreased ROM Cardiovascular: reports: Shortness of Breath. denies: Chest Pain Respiratory: reports: Cough, SOB on Exertion. denies: Hemoptysis, Wheezing Gastrointestinal: denies: Abdominal Pain Genitourinary: denies: Burning Breasts: reports: No Symptoms Reported Musculoskeletal: reports: No Symptoms Integumentary: reports: No Symptoms Physical Exam Vital Sings: Vital Signs Temperature 98.8 F 10/31/18 09:15 Pulse Rate 88 10/31/18 09:15 Respiratory Rate 18 10/31/18 09:15 Blood Pressure 161/91 10/31/18 09:15 O2 Sat by Pulse Oximetry (%) 98 10/31/18 01:47 Constitutional: Yes: Calm Eyes: Yes: EOM Intact HENT: Yes: Normocephalic Neck: Yes: Trachea Midline Cardiovascular: Yes: S1, S2 Respiratory: Yes: Diminished, Rales Gastrointestinal: Yes: Normal Bowel Sounds, Abdomen, Obese Edema: Yes Edema: LLE: 2+, RLE: 1+ Integumentary: Yes: WNL Neurological: Yes: Alert Psychiatric: Yes: Alert Labs: CBC, BMP 10/31/18 06:30 10/31/18 06:30 rest reviewed Imaging - Results Chest X-ray: Report Reviewed, Image Reviewed Problem List - Problems (1) CHF exacerbation Code(s): I50.9 - HEART FAILURE, UNSPECIFIED Qualifiers: Heart failure type: unspecified Qualified Code(s): I50.9 - Heart failure, unspecified (2) COPD (chronic obstructive pulmonary disease) Code(s): J44.9 - CHRONIC OBSTRUCTIVE PULMONARY DISEASE, UNSPECIFIED (3) Diabetes Code(s): E11.9 - TYPE 2 DIABETES MELLITUS WITHOUT COMPLICATIONS (4) Hypertensive urgency Code(s): I16.0 - HYPERTENSIVE URGENCY (5) Sepoe-jy-apvpfne kidney injury Code(s): N17.9 - ACUTE KIDNEY FAILURE, UNSPECIFIED; N18.9 - CHRONIC KIDNEY DISEASE, UNSPECIFIED Qualifiers: Chronic kidney disease stage: stage 3 (moderate) (6) Cocaine abuse Code(s): F14.10 - COCAINE ABUSE, UNCOMPLICATED (7) Nicotine abuse Code(s): Z72.0 - TOBACCO USE (8) Pleural effusion Code(s): J90 - PLEURAL EFFUSION, NOT ELSEWHERE CLASSIFIED (9) Shortness of breath Code(s): R06.02 - SHORTNESS OF BREATH Assessment/Plan BP CONTROL O2/NEBS/DIURETICS/TAPER STEROIDS GLYCEMIC CONTROL PLAVIX/DAILY WEIGHTS SMOKING CESSATION Terri MULLIGAN MD
[2018-10-31 12:04] LABS: ANISOCYTOSIS 1+; MACROCYTOSIS 1+; PLATELET ESTIMATE NORMAL
[2018-10-31] MEDS ORDERED: INSULIN (LEVEMIR) 100 UNITS/ML UNITS SQ SCH (13:09)
--- NOTE | 2018-10-31 16:56 | EKG ---
Test Reason : Blood Pressure : / mmHG Vent. Rate : 091 BPM Atrial Rate : 091 BPM P-R Int : 162 ms QRS Dur : 098 ms QT Int : 398 ms P-R-T Axes : 060 041 065 degrees QTc Int : 489 ms POOR DATA QUALITY, INTERPRETATION MAY BE ADVERSELY AFFECTED NORMAL SINUS RHYTHM POSSIBLE LEFT ATRIAL ENLARGEMENT NONSPECIFIC T WAVE ABNORMALITY PROLONGED QT ABNORMAL ECG WHEN COMPARED WITH ECG OF 19-OCT-2018 11:32, NO SIGNIFICANT CHANGE WAS FOUND Confirmed by JUAN MORAN MD ([id number]) on 10/31/2018 4:55:59 PM Referred By: Confirmed By:JUAN MORAN MD
--- NOTE | 2018-10-31 17:12 | PN ---
Progress Note, Physician Chief Complaint: breathing improved. History of Present Illness: Patient is a 58 year old male with a significant past medical history of hypertension, diabetes, hyperlipidemia, [place] x 3, cocaine use, COPD/asthma. Patient with a recent admission for TIA and found to have high grade right carotid stenosis. He is s/p CEA on 08/[address] Johnson. Patient presents to the ED on 10/30 with c/o shortness of breath =. He also reports a non productive cough but denies any other symptoms such as fever, chills, sick contacts or travel. No chest pain reported. He usually ambulates with a cane for right knee arthritis. He reports that he has been compliant with his medications at home but did not have a chance to take them yet this morning. He says that he tried using his home inhalers without relief of his shortness of breath which prompted an ED visit. ER course was notable for: (1) bnp 6884.6 (2) bun/creat: 28/1.5 (3) hypertensive urgency 193/145 - Current Medication List Current Medications: Active Medications Albuterol/Ipratropium (Duoneb -) 1 amp NEB RQ4H [facility] Last Admin: 10/31/18 16:36 Dose: 1 amp Aspirin (Ecotrin -) 81 mg PO DAILY [facility] Last Admin: 10/31/18 09:16 Dose: 81 mg Atorvastatin Calcium (Lipitor -) 80 mg PO HS [facility] Last Admin: 10/30/18 23:45 Dose: 80 mg Carvedilol (Coreg -) 25 mg PO BID [facility] Last Admin: 10/31/18 09:17 Dose: 25 mg Clopidogrel Bisulfate (Plavix -) 75 mg PO DAILY [facility] Last Admin: 10/31/18 09:13 Dose: 75 mg Cyclobenzaprine HCl (Cyclobenzaprine Hcl) 5 mg PO Q8H PRN PRN Reason: BACK PAIN Furosemide (Lasix Injection -) 40 mg IVPUSH BIDLASIX [facility] Last Admin: 10/31/18 13:56 Dose: 40 mg Hydralazine HCl (Apresoline -) 100 mg PO TID [facility] Last Admin: 10/31/18 13:57 Dose: 100 mg Insulin Aspart (Novolog Vial Sliding Scale -) [address] [facility]; Protocol Insulin Detemir (Levemir Vial) 15 units SQ [facility] Isosorbide Mononitrate (Imdur -) 60 mg PO DAILY [facility] Last Admin: 10/31/18 09:14 Dose: 60 mg Methylprednisolone Sodium Succinate (Solu-Medrol -) 40 mg IVPUSH Q8H-IV [facility] Last Admin: 10/31/18 09:17 Dose: 40 mg Nifedipine (Procardia Xl -) 60 mg PO DAILY [facility] Last Admin: 10/31/18 09:13 Dose: 60 mg Spironolactone (Aldactone -) 50 mg PO DAILY [facility] Last Admin: 10/31/18 09:15 Dose: 50 mg - Objective Vital Signs: Vital Signs Temperature 97.5 F L 10/31/18 13:30 Pulse Rate 80 10/31/18 13:30 Respiratory Rate 18 10/31/18 13:30 Blood Pressure 130/94 10/31/18 13:30 O2 Sat by Pulse Oximetry (%) 96 10/31/18 10:00 Constitutional: Yes: No Distress, Calm Eyes: Yes: WNL HENT: Yes: Atraumatic Neck: Yes: Supple Cardiovascular: Yes: Regular Rate and Rhythm Respiratory: Yes: CTA Bilaterally Gastrointestinal: Yes: Normal Bowel Sounds ...Rectal Exam: Yes: Deferred Extremities: Yes: WNL Edema: RUE: 1+, LLE: 1+ Integumentary: Yes: WNL Neurological: Yes: Alert, Oriented ...Motor Strength: WNL (walks with cane) Labs: CBC, BMP 10/31/18 06:30 10/31/18 06:30 Problem List - Problems (1) CHF exacerbation Assessment/Plan: elevated BNP, greater than previous admission. Likely in the setting of medication non compliance and uncontrolled hypertension. Monitor daily weight on lasix 40 iv to BID On lasix, spironolactone, coreq, procardia and hydralazine. Monitor on tele. Code(s): I50.9 - HEART FAILURE, UNSPECIFIED Qualifiers: Heart failure type: unspecified Qualified Code(s): I50.9 - Heart failure, unspecified (2) Hypertensive urgency Assessment/Plan: BP elevated on admission, improved when home medications resumed. Also has +2 lower ext edema. Monitor BP q 4 until stable continue home medications Code(s): I16.0 - HYPERTENSIVE URGENCY (3) [id number]-mzgcnen kidney injury Assessment/Plan: monitor with daily labs Code(s): N17.9 - ACUTE KIDNEY FAILURE, UNSPECIFIED; N18.9 - CHRONIC KIDNEY DISEASE, UNSPECIFIED Qualifiers: Chronic kidney disease stage: stage 3 (moderate) (4) Cerebrovascular disease Assessment/Plan: on lipitor Code(s): I67.9 - CEREBROVASCULAR DISEASE, UNSPECIFIED (5) Cocaine abuse Assessment/Plan: admits to recent cocaine use Code(s): F14.10 - COCAINE ABUSE, UNCOMPLICATED (6) Nicotine abuse Assessment/Plan: cessation discussed. Code(s): Z72.0 - TOBACCO USE (7) Shortness of breath Assessment/Plan: chest xray with increased congestive changes will order oxygen and duonebs scheduled. pulmonary consulted. Code(s): R06.02 - SHORTNESS OF BREATH (8) Acute on chronic diastolic (congestive) heart failure Code(s): I50.33 - ACUTE ON CHRONIC DIASTOLIC (CONGESTIVE) HEART FAILURE (9) Diabetes Assessment/Plan: on novolog ss, add levemir Code(s): E11.9 - TYPE 2 DIABETES MELLITUS WITHOUT COMPLICATIONS (10) COPD (chronic obstructive pulmonary disease) Assessment/Plan: oxygen 2 liters with scheduled duonebs. on systemic steriods. will taper off since he has improved. Code(s): J44.9 - CHRONIC OBSTRUCTIVE PULMONARY DISEASE, UNSPECIFIED (11) Prophylactic measure Assessment/Plan: fen tolerating po monitor electrolytes full code Code(s): Z29.9 - ENCOUNTER FOR PROPHYLACTIC MEASURES, UNSPECIFIED Visit type - Emergency Visit Emergency Visit: Yes ED Registration Date: 10/30/18 Care time: The patient presented to the Emergency Department on the above date and was hospitalized for further evaluation of their emergent condition. - New Patient This patient is new to me today: No - Critical Care Critical Care patient: No - Discharge Referral Referred to [facility] Med P.C.: No
[2018-10-31] MEDS: ATORVASTATIN CA 80 MG TABLET (FP) PO SCH (21:51)
[2018-11-01] MEDS: methylPREDNISolone NA SUCC 40 MG/1 ML VIAL IVPUSH SCH ×3 (01:31→17:55)
[2018-11-01] MEDS: ALBUTEROL SO4 2.5/IPRATROPIUM 0.5 INH SOL 3 ML VIAL.NEB. NEB SCH ×5 (04:02→20:15)
[2018-11-01] MEDS: INSULIN SLIDING SCALE (NOVOLOG) 1 VIAL SQ SCH ×4 (06:15→21:29)
[2018-11-01] MEDS: INSULIN (LEVEMIR) 100 UNITS/ML UNITS SQ SCH ×2 (06:16→16:39)
[2018-11-01] MEDS: FUROSEMIDE 40 MG/4 ML INJECTABLE VIAL IVPUSH SCH ×2 (06:16→14:32)
[2018-11-01] MEDS: hydrALAZINE HCL 50 MG TABLET (FP) PO SCH ×3 (06:16→21:29)
[2018-11-01] MEDS ORDERED: INSULIN SLIDING SCALE (NOVOLOG) 1 VIAL SQ ONE (07:47)
[2018-11-01] MEDS ORDERED: INSULIN (LEVEMIR) 100 UNITS/ML UNITS SQ ONE (07:47)
[2018-11-01 08:20] LABS: BASO % 0.1 % (0-2.0); HEMATOCRIT 32.2 % (35.4-49); HEMOGLOBIN 10.3 GM/dL (11.7-16.9); LYMPH % 2.5 % (8-40); MCH 30.5 pg (25.7-33.7); MEAN CELL VOLUME 95.5 fl (80-96); MEAN PLT VOLUME 8.2 fl (7.5-11.1); MONO % 1.8 % (3.8-10.2); NEUT % 95.6 % (42.8-82.8); PLATELET COUNT 463 K/MM3 (134-434); RBC 3.37 M/mm3 (4.00-5.60); RDW 15.2 % (11.9-15.9)
[2018-11-01 08:37] LABS: ALBUMIN 3.3 g/dl (3.4-5.0); BILIRUBIN,TOTAL 0.4 mg/dL (0.2-1); BLOOD UREA NITROGEN 34.5 mg/dL (7-18); CALCIUM 9.5 mg/dL (8.5-10.1); CREATININE 1.5 mg/dL (0.55-1.3); MAGNESIUM 2.2 mg/dL (1.8-2.4); POTASSIUM 4.3 mmol/L (3.5-5.1); TOT PROT 7.5 g/dl (6.4-8.2)
--- NOTE | 2018-11-01 09:23 | PN ---
Progress Note, Physician Chief Complaint: breathing at baseline. lungs are clear to auscultation. wants to go home. admits to missing some of his bp meds at home. History of Present Illness: Patient is a 58 year old male with a significant past medical history of hypertension, diabetes, hyperlipidemia, [place] x 3, cocaine use, COPD/asthma. Patient with a recent admission for TIA and found to have high grade right carotid stenosis. He is s/p CEA on 08/[address] Johnson. Patient presents to the ED on 10/30 with c/o shortness of breath. He also reports a non productive cough but denies any other symptoms such as fever, chills, sick contacts or travel. No chest pain reported. He usually ambulates with a cane for right knee arthritis. He said that he tried using his home inhalers without relief of his shortness of breath which prompted an ED visit. - Current Medication List Current Medications: Active Medications Albuterol/Ipratropium (Duoneb -) 1 amp NEB RQ4H [facility] Last Admin: 11/01/18 04:02 Dose: Not Given Aspirin (Ecotrin -) 81 mg PO DAILY [facility] Last Admin: 10/31/18 09:16 Dose: 81 mg Atorvastatin Calcium (Lipitor -) 80 mg PO HS [facility] Last Admin: 10/31/18 21:51 Dose: 80 mg Carvedilol (Coreg -) 25 mg PO BID [facility] Last Admin: 10/31/18 21:51 Dose: 25 mg Clopidogrel Bisulfate (Plavix -) 75 mg PO DAILY [facility] Last Admin: 10/31/18 09:13 Dose: 75 mg Cyclobenzaprine HCl (Cyclobenzaprine Hcl) 5 mg PO Q8H PRN PRN Reason: BACK PAIN Furosemide (Lasix Injection -) 40 mg IVPUSH BIDLASIX [facility] Last Admin: 11/01/18 06:16 Dose: 40 mg Hydralazine HCl (Apresoline -) 100 mg PO TID [facility] Last Admin: 11/01/18 06:16 Dose: 100 mg Insulin Aspart (Novolog Vial Sliding Scale -) 1 vial SQ ACHS [facility]; Protocol Last Admin: 11/01/18 06:15 Dose: 14 units Insulin Detemir (Levemir Vial) 15 units SQ BIDI [facility] Last Admin: 11/01/18 06:16 Dose: 15 units Isosorbide Mononitrate (Imdur -) 60 mg PO DAILY [facility] Last Admin: 10/31/18 09:14 Dose: 60 mg Methylprednisolone Sodium Succinate (Solu-Medrol -) 40 mg IVPUSH Q8H-IV [facility] Last Admin: 11/01/18 01:31 Dose: 40 mg Nifedipine (Procardia Xl -) 60 mg PO DAILY [facility] Last Admin: 10/31/18 09:13 Dose: 60 mg Spironolactone (Aldactone -) 50 mg PO DAILY [facility] Last Admin: 10/31/18 09:15 Dose: 50 mg - Objective Vital Signs: Vital Signs Temperature 98.2 F 11/01/18 08:35 Pulse Rate 58 L 11/01/18 08:35 Respiratory Rate 18 11/01/18 08:35 Blood Pressure 178/95 H 11/01/18 08:35 O2 Sat by Pulse Oximetry (%) 96 10/31/18 21:00 Constitutional: Yes: Well Nourished Eyes: Yes: Conjunctiva Clear HENT: Yes: Atraumatic Neck: Yes: Trachea Midline Cardiovascular: Yes: Regular Rate and Rhythm Respiratory: Yes: CTA Bilaterally Gastrointestinal: Yes: Soft ...Rectal Exam: Yes: Deferred Extremities: Yes: WNL Edema: Yes Edema: LLE: Trace, RLE: Trace Integumentary: Yes: WNL Neurological: Yes: WNL, Alert, Oriented ...Motor Strength: WNL Psychiatric: Yes: Alert, Oriented Labs: CBC, BMP 11/01/18 07:20 11/01/18 07:20 Problem List - Problems (1) CHF exacerbation Assessment/Plan: elevated BNP, greater than previous admission. Likely in the setting of medication non compliance and uncontrolled hypertension. No decrease in weights, but clinically improved. tolerating room air and ambulates without shortness of breath. on lasix 40 iv BID On lasix, spironolactone, coreq, procardia and hydralazine. Monitor on tele. BP improved Code(s): I50.9 - HEART FAILURE, UNSPECIFIED Qualifiers: Heart failure type: unspecified Qualified Code(s): I50.9 - Heart failure, unspecified (2) Hypertensive urgency Assessment/Plan: BP elevated on admission, improved when home medications resumed. Also had +2 lower ext edema also improved. cardiology following Code(s): I16.0 - HYPERTENSIVE URGENCY (3) Lzywt-oc-nrwinde kidney injury Assessment/Plan: monitor with daily labs Code(s): N17.9 - ACUTE KIDNEY FAILURE, UNSPECIFIED; N18.9 - CHRONIC KIDNEY DISEASE, UNSPECIFIED Qualifiers: Chronic kidney disease stage: stage 3 (moderate) (4) Cerebrovascular disease Assessment/Plan: on lipitor Code(s): I67.9 - CEREBROVASCULAR DISEASE, UNSPECIFIED (5) Cocaine abuse Assessment/Plan: admits to recent cocaine use. Code(s): F14.10 - COCAINE ABUSE, UNCOMPLICATED (6) Nicotine abuse Assessment/Plan: cessation discussed. Code(s): Z72.0 - TOBACCO USE (7) Shortness of breath Assessment/Plan: chest xray with increased congestive changes will order oxygen and duonebs scheduled. pulmonary consulted. Code(s): R06.02 - SHORTNESS OF BREATH (8) Acute on chronic diastolic (congestive) heart failure Code(s): I50.33 - ACUTE ON CHRONIC DIASTOLIC (CONGESTIVE) HEART FAILURE (9) Diabetes Assessment/Plan: on novolog ss, add levemir. elevated bgms in the setting of steriod therapy. states his bgms are more controlled at home. on metformin. hmga1c 6.1. Code(s): E11.9 - TYPE 2 DIABETES MELLITUS WITHOUT COMPLICATIONS (10) COPD (chronic obstructive pulmonary disease) Assessment/Plan: oxygen 2 liters with scheduled duonebs. on systemic steriods. tapered off to soludemrol 40 bid. Code(s): J44.9 - CHRONIC OBSTRUCTIVE PULMONARY DISEASE, UNSPECIFIED (11) Prophylactic measure Assessment/Plan: fen tolerating po monitor electrolytes full code ambulatory Code(s): Z29.9 - ENCOUNTER FOR PROPHYLACTIC MEASURES, UNSPECIFIED (12) DVT prophylaxis Assessment/Plan: ambulatory. Code(s): Z29.9 - ENCOUNTER FOR PROPHYLACTIC MEASURES, UNSPECIFIED Visit type - Emergency Visit Emergency Visit: Yes ED Registration Date: 10/30/18 Care time: The patient presented to the Emergency Department on the above date and was hospitalized for further evaluation of their emergent condition. - New Patient This patient is new to me today: No - Critical Care Critical Care patient: No - Discharge Referral Referred to [facility] Med P.C.: No
[2018-11-01 10:26] LABS: ANISOCYTOSIS 1+; MACROCYTOSIS 1+; OVALOCYTE 1+; PLATELET ESTIMATE NORMAL
[2018-11-01] MEDS: SPIRONOLACTONE 25 MG TABLET (FP) PO SCH (10:29)
[2018-11-01] MEDS: CARVEDILOL 25 MG TABLET (FP) PO SCH ×2 (10:30→21:29)
[2018-11-01] MEDS: ASPIRIN COATED 81 MG TABLET.EC PO SCH (10:32)
[2018-11-01] MEDS: ISOSORBIDE MONONITRATE 60 MG TAB.SR.24H (FP) PO SCH (10:32)
[2018-11-01] MEDS: CLOPIDOGREL BISULFATE 75 MG TABLET (FP) PO SCH (10:33)
[2018-11-01] MEDS: NIFEdipine E.R 60 MG TABLET (UD) PO SCH (10:34)
--- NOTE | 2018-11-01 11:35 | PN ---
Progress Note, Physician History of Present Illness: PULMONARY ALERT,OOB-CHAIR,FEELING BETTER,LESS DYSPNEIC - Current Medication List Current Medications: Active Medications Albuterol/Ipratropium (Duoneb -) 1 amp NEB RQ4H [facility] Last Admin: 11/01/18 04:02 Dose: Not Given Aspirin (Ecotrin -) 81 mg PO DAILY [facility] Last Admin: 11/01/18 10:32 Dose: 81 mg Atorvastatin Calcium (Lipitor -) 80 mg PO HS [facility] Last Admin: 10/31/18 21:51 Dose: 80 mg Carvedilol (Coreg -) 25 mg PO BID [facility] Last Admin: 11/01/18 10:30 Dose: 25 mg Clopidogrel Bisulfate (Plavix -) 75 mg PO DAILY [facility] Last Admin: 11/01/18 10:33 Dose: 75 mg Cyclobenzaprine HCl (Cyclobenzaprine Hcl) 5 mg PO Q8H PRN PRN Reason: BACK PAIN Furosemide (Lasix Injection -) 40 mg IVPUSH BIDLASIX [facility] Last Admin: 11/01/18 06:16 Dose: 40 mg Hydralazine HCl (Apresoline -) 100 mg PO TID [facility] Last Admin: 11/01/18 06:16 Dose: 100 mg Insulin Aspart (Novolog Vial Sliding Scale -) 1 vial SQ ACHS [facility]; Protocol Last Admin: 11/01/18 06:15 Dose: 14 units Insulin Detemir (Levemir Vial) 15 units SQ BIDI [facility] Last Admin: 11/01/18 06:16 Dose: 15 units Isosorbide Mononitrate (Imdur -) 60 mg PO DAILY [facility] Last Admin: 11/01/18 10:32 Dose: 60 mg Methylprednisolone Sodium Succinate (Solu-Medrol -) 40 mg IVPUSH Q8H-IV [facility] Last Admin: 11/01/18 10:36 Dose: 40 mg Nifedipine (Procardia Xl -) 60 mg PO DAILY [facility] Last Admin: 11/01/18 10:34 Dose: 60 mg Spironolactone (Aldactone -) 50 mg PO DAILY [facility] Last Admin: 11/01/18 10:29 Dose: 50 mg - Objective Vital Signs: Vital Signs Temperature 98.2 F 11/01/18 08:35 Pulse Rate 58 L 11/01/18 08:35 Respiratory Rate 18 11/01/18 08:35 Blood Pressure 178/95 H 11/01/18 08:35 O2 Sat by Pulse Oximetry (%) 97 11/01/18 10:00 Constitutional: Yes: Well Nourished, Calm Eyes: Yes: WNL HENT: Yes: WNL Neck: Yes: WNL Cardiovascular: Yes: Regular Rate and Rhythm, S1, S2 Respiratory: Yes: Wheezes (FEW SCATTERED WHEEZES) Gastrointestinal: Yes: Normal Bowel Sounds, Soft Extremities: Yes: WNL Edema: Yes Labs: CBC, BMP 11/01/18 07:20 11/01/18 07:20 Assessment/Plan - Problems (1) CHF exacerbation Code(s): I50.9 - HEART FAILURE, UNSPECIFIED Qualifiers: Heart failure type: unspecified Qualified Code(s): I50.9 - Heart failure, unspecified (2) COPD (chronic obstructive pulmonary disease) Code(s): J44.9 - CHRONIC OBSTRUCTIVE PULMONARY DISEASE, UNSPECIFIED (3) Diabetes Code(s): E11.9 - TYPE 2 DIABETES MELLITUS WITHOUT COMPLICATIONS (4) Hypertensive urgency Code(s): I16.0 - HYPERTENSIVE URGENCY (5) Uybwg-gd-gqfcrbk kidney injury Code(s): N17.9 - ACUTE KIDNEY FAILURE, UNSPECIFIED; N18.9 - CHRONIC KIDNEY DISEASE, UNSPECIFIED Qualifiers: Chronic kidney disease stage: stage 3 (moderate) (6) Cocaine abuse Code(s): F14.10 - COCAINE ABUSE, UNCOMPLICATED (7) Nicotine abuse Code(s): Z72.0 - TOBACCO USE (8) Pleural effusion Code(s): J90 - PLEURAL EFFUSION, NOT ELSEWHERE CLASSIFIED (9) Shortness of breath Code(s): R06.02 - SHORTNESS OF BREATH Assessment/Plan BP CONTROL O2 NEBS DIURETICS TAPER STEROIDS GLYCEMIC CONTROL DAILY WEIGHTS SMOKING CESSATION DR DOYLE
--- NOTE | 2018-11-01 14:30 | PN ---
Progress Note, Physician Chief Complaint: Feels better Clinically improved History of Present Illness: Patient was seen and examined. Awake and alert. Chart was reviewed Denies chest pain or palpitations Less SOB - Current Medication List Current Medications: Active Medications Albuterol/Ipratropium (Duoneb -) 1 amp NEB RQ4H [facility] Last Admin: 11/01/18 12:04 Dose: 1 amp Aspirin (Ecotrin -) 81 mg PO DAILY [facility] Last Admin: 11/01/18 10:32 Dose: 81 mg Atorvastatin Calcium (Lipitor -) 80 mg PO HS [facility] Last Admin: 10/31/18 21:51 Dose: 80 mg Carvedilol (Coreg -) 25 mg PO BID [facility] Last Admin: 11/01/18 10:30 Dose: 25 mg Clopidogrel Bisulfate (Plavix -) 75 mg PO DAILY [facility] Last Admin: 11/01/18 10:33 Dose: 75 mg Cyclobenzaprine HCl (Cyclobenzaprine Hcl) 5 mg PO Q8H PRN PRN Reason: BACK PAIN Furosemide (Lasix Injection -) 40 mg IVPUSH BIDLASIX [facility] Last Admin: 11/01/18 06:16 Dose: 40 mg Hydralazine HCl (Apresoline -) 100 mg PO TID [facility] Last Admin: 11/01/18 06:16 Dose: 100 mg Insulin Aspart (Novolog Vial Sliding Scale -) 1 vial SQ ACHS [facility]; Protocol Last Admin: 11/01/18 11:44 Dose: 18 units Insulin Detemir (Levemir Vial) 15 units SQ BIDI [facility] Last Admin: 11/01/18 06:16 Dose: 15 units Isosorbide Mononitrate (Imdur -) 60 mg PO DAILY [facility] Last Admin: 11/01/18 10:32 Dose: 60 mg Methylprednisolone Sodium Succinate (Solu-Medrol -) 40 mg IVPUSH Q8H-IV [facility] Last Admin: 11/01/18 10:36 Dose: 40 mg Nifedipine (Procardia Xl -) 60 mg PO DAILY [facility] Last Admin: 11/01/18 10:34 Dose: 60 mg Spironolactone (Aldactone -) 50 mg PO DAILY [facility] Last Admin: 11/01/18 10:29 Dose: 50 mg - Objective Vital Signs: Vital Signs Temperature 98.2 F 11/01/18 14:00 Pulse Rate 79 09/09/19 14:00 Respiratory Rate 18 11/01/18 14:00 Blood Pressure 161/79 11/01/18 14:00 O2 Sat by Pulse Oximetry (%) 97 11/01/18 10:00 Eyes: Yes: PERRL HENT: Yes: Atraumatic Neck: Yes: Supple Cardiovascular: Yes: Regular Rate and Rhythm, S1, S2 Respiratory: Yes: Diminished Gastrointestinal: Yes: Normal Bowel Sounds, Soft. No: Tenderness Edema: Yes Edema: LLE: Trace, RLE: Trace Additional Findings/Remarks: - Review of Systems Constitutional: denies: Chills, Fever Cardiovascular: reports: Shortness of Breath. denies: Chest Pain, Palpitations Respiratory: reports: Cough, SOB. denies: Orthopnea, PND Gastrointestinal: denies: Abdominal Pain, Melena, Nausea, Rectal Bleeding, Vomiting Neurological: denies: Dizziness, Headache, Seizure, Syncope Labs: CBC, BMP 11/01/18 07:20 11/01/18 07:20 Problem List - Problems (1) CHF exacerbation Code(s): I50.9 - HEART FAILURE, UNSPECIFIED Qualifiers: Heart failure type: unspecified Qualified Code(s): I50.9 - Heart failure, unspecified (2) COPD (chronic obstructive pulmonary disease) Code(s): J44.9 - CHRONIC OBSTRUCTIVE PULMONARY DISEASE, UNSPECIFIED (3) Diabetes Code(s): E11.9 - TYPE 2 DIABETES MELLITUS WITHOUT COMPLICATIONS (4) Zierj-hz-abdmryn kidney injury Code(s): N17.9 - ACUTE KIDNEY FAILURE, UNSPECIFIED; N18.9 - CHRONIC KIDNEY DISEASE, UNSPECIFIED Qualifiers: Chronic kidney disease stage: stage 3 (moderate) (5) Cerebrovascular disease Code(s): I67.9 - CEREBROVASCULAR DISEASE, UNSPECIFIED (6) Cocaine abuse Code(s): F14.10 - COCAINE ABUSE, UNCOMPLICATED (7) Shortness of breath Code(s): R06.02 - SHORTNESS OF BREATH (8) Acute on chronic diastolic (congestive) heart failure Code(s): I50.33 - ACUTE ON CHRONIC DIASTOLIC (CONGESTIVE) HEART FAILURE (9) CAD (coronary artery disease) Code(s): I25.10 - ATHSCL HEART DISEASE OF [place] CORONARY ARTERY W/O ANG PCTRS Qualifiers: Coronary Disease-Associated Artery/Lesion type: [place] artery [place] vs. transplanted heart: [place] heart Associated angina: without angina Qualified Code(s): I25.10 - Atherosclerotic heart disease of [place] coronary artery without angina pectoris (10) Diastolic dysfunction without heart failure Code(s): I51.9 - HEART DISEASE, UNSPECIFIED (11) HTN (hypertension) Code(s): I10 - ESSENTIAL (PRIMARY) HYPERTENSION Qualifiers: Hypertension type: essential hypertension Qualified Code(s): I10 - Essential (primary) hypertension (12) Hyperlipidemia Code(s): E78.5 - HYPERLIPIDEMIA, UNSPECIFIED Qualifiers: Hyperlipidemia type: pure hypercholesterolemia Qualified Code(s): E78.00 - Pure hypercholesterolemia, unspecified Assessment/Plan 1. Acute on chronic class I-II NYHA classification diastolic LV failure 2. HTN 3. CAD history of [place], PCI/stent, angina pectoris 4. DM 5. Hypercholesterolemia 6. Cerebrovascular disease 7. TIA post CEA 8. COPD 9. Acute on CKD 10. Substance abuse (Cocaine) 11. History of angioedema related to ACEI PLAN: 1. Continue ASA and Plavix 2. IV Furosemide and Spironolactone. Monitor renal function and electrolytes 3. Continue Carvedilol, Procardia XL and Hydralazine 4. Continue Imdur 5. Continue ASA 6. Continue Lipitor 7. Continue Imdur 8. Steroids and bronchodilators Further plans are to follow Nicholas Singletary MD
[2018-11-01] MEDS: ATORVASTATIN CA 80 MG TABLET (FP) PO SCH (21:29)
[2018-11-02] MEDS: ALBUTEROL SO4 2.5/IPRATROPIUM 0.5 INH SOL 3 ML VIAL.NEB. NEB SCH ×6 (00:16→20:50)
[2018-11-02] MEDS ORDERED: hydrALAZINE HCL 50 MG TABLET (FP) PO ONE (03:17)
[2018-11-02] MEDS ORDERED: INSULIN (NOVOLOG) ASPART 100 UNITS/ML 10ML VIAL SQ ONE (06:32)
[2018-11-02] MEDS: hydrALAZINE HCL 50 MG TABLET (FP) PO SCH ×3 (06:55→22:49)
[2018-11-02] MEDS: INSULIN SLIDING SCALE (NOVOLOG) 1 VIAL SQ SCH ×4 (06:55→22:49)
[2018-11-02] MEDS: FUROSEMIDE 40 MG/4 ML INJECTABLE VIAL IVPUSH SCH ×2 (06:55→13:52)
[2018-11-02] MEDS: INSULIN (LEVEMIR) 100 UNITS/ML UNITS SQ SCH ×2 (06:55→22:49)
--- NOTE | 2018-11-02 07:41 | PN ---
Progress Note, Physician Chief Complaint: No complaints offered. Stated breathing is much improved History of Present Illness: Patient is a 58 year old male with a significant past medical history of hypertension, diabetes, hyperlipidemia, [place] x 3, cocaine use, COPD/asthma. Patient with a recent admission for TIA and found to have high grade right carotid stenosis. He is s/p CEA on 08/[address] Johsnon. Patient presents to the ED today with c/o shortness of breath that started starting today. He also reports a non producitve cough but denies any other symptoms such as fever, chills, sick contacts or travel. No chest pain reported. He usually ambulates with a cane for right knee arthritis. He reports that he has been compliant with his medications at home but did not have a chance to take them yet this morning. He says that he tried using his home inhalers without relief of his shortness of breath whic prompted an ED visit. - Current Medication List Current Medications: Active Medications Albuterol/Ipratropium (Duoneb -) 1 amp NEB RQ4H [facility] Last Admin: 11/02/18 04:00 Dose: Not Given Aspirin (Ecotrin -) 81 mg PO DAILY [facility] Last Admin: 11/01/18 10:32 Dose: 81 mg Atorvastatin Calcium (Lipitor -) 80 mg PO HS [facility] Last Admin: 11/01/18 21:29 Dose: 80 mg Carvedilol (Coreg -) 25 mg PO BID [facility] Last Admin: 11/01/18 21:29 Dose: 25 mg Clopidogrel Bisulfate (Plavix -) 75 mg PO DAILY [facility] Last Admin: 11/01/18 10:33 Dose: 75 mg Cyclobenzaprine HCl (Cyclobenzaprine Hcl) 5 mg PO Q8H PRN PRN Reason: BACK PAIN Furosemide (Lasix Injection -) 40 mg IVPUSH BIDLASIX [facility] Last Admin: 11/02/18 06:55 Dose: 40 mg Hydralazine HCl (Apresoline -) 100 mg PO TID [facility] Last Admin: 11/02/18 06:55 Dose: 100 mg Insulin Aspart (Novolog Vial Sliding Scale -) 1 vial SQ ACHS [facility]; Protocol Last Admin: 11/02/18 06:55 Dose: 18 units Insulin Detemir (Levemir Vial) 15 units SQ BIDI [facility] Last Admin: 11/02/18 06:55 Dose: 15 units Isosorbide Mononitrate (Imdur -) 60 mg PO DAILY [facility] Last Admin: 11/01/18 10:32 Dose: 60 mg Methylprednisolone Sodium Succinate (Solu-Medrol -) 40 mg IVPUSH BID [facility] Nifedipine (Procardia Xl -) 60 mg PO DAILY [facility] Last Admin: 11/01/18 10:34 Dose: 60 mg Spironolactone (Aldactone -) 50 mg PO DAILY [facility] Last Admin: 11/01/18 10:29 Dose: 50 mg - Objective Vital Signs: Vital Signs Temperature 98.2 F 11/02/18 06:00 Pulse Rate 84 11/02/18 06:00 Respiratory Rate 20 11/02/18 06:00 Blood Pressure 207/119 H 11/02/18 06:00 O2 Sat by Pulse Oximetry (%) 98 11/01/18 21:00 Constitutional: Yes: Well Nourished, No Distress, Calm Eyes: Yes: WNL, Conjunctiva Clear, EOM Intact HENT: Yes: WNL, Atraumatic, Normocephalic Neck: Yes: WNL, Supple, Trachea Midline Cardiovascular: Yes: WNL, Regular Rate and Rhythm Respiratory: Yes: WNL, Regular, CTA Bilaterally Gastrointestinal: Yes: WNL, Normal Bowel Sounds, Soft ...Rectal Exam: Yes: Deferred Genitourinary: Yes: WNL Breast(s): Yes: WNL Musculoskeletal: Yes: WNL Extremities: Yes: WNL Edema: Yes Edema: LLE: Trace, RLE: Trace Peripheral Pulses WNL: Yes Peripheral Pulses: Left Radial: 2+, Right Radial: 2+, Left Doralis Pedis: 2+, Right Dorsalis Pedis: 2+, Left Femoral: 2+, Right Femoral: 2+ Integumentary: Yes: WNL Neurological: Yes: WNL, Alert, Oriented ...Motor Strength: WNL Psychiatric: Yes: WNL, Alert, Oriented Problem List - Problems (1) CHF exacerbation Assessment/Plan: elevated BNP, greater than previous admission. Likely in the setting of medication non compliance and uncontrolled hypertension. No decrease in weights, but clinically improved. tolerating room air and ambulates without shortness of breath. on lasix 40 iv BID On lasix, spironolactone, coreq, procardia and hydralazine. Monitor on tele. BP much improved Code(s): I50.9 - HEART FAILURE, UNSPECIFIED Qualifiers: Heart failure type: unspecified Qualified Code(s): I50.9 - Heart failure, unspecified (2) Diabetes Assessment/Plan: BGM remains in mid to high 400s, currently 467. Patient found with packet of candy at bedside c/w BGM ac/Qhs with novolog sliding scale increase levemir to 20u bid will consult trade manager for nutritional counseling BGM may remain high on IV steroids, will continue to monitor Code(s): E11.9 - TYPE 2 DIABETES MELLITUS WITHOUT COMPLICATIONS (3) Hypertensive urgency Assessment/Plan: BP elevated on admission, improved when home medications resumed. LE edema improved appreciate cardiology consultation Code(s): I16.0 - HYPERTENSIVE URGENCY (4) Pxokr-yb-lkkmjee kidney injury Assessment/Plan: Cr 1.8 avoiid nephrotoxic agents monitor daily Cr Code(s): N17.9 - ACUTE KIDNEY FAILURE, UNSPECIFIED; N18.9 - CHRONIC KIDNEY DISEASE, UNSPECIFIED Qualifiers: Chronic kidney disease stage: stage 3 (moderate) (5) Cerebrovascular disease Assessment/Plan: h/p CVA no residual deficits Code(s): I67.9 - CEREBROVASCULAR DISEASE, UNSPECIFIED (6) Cocaine abuse Assessment/Plan: reports no current use Code(s): F14.10 - COCAINE ABUSE, UNCOMPLICATED (7) Nicotine abuse Code(s): Z72.0 - TOBACCO USE (8) Shortness of breath Assessment/Plan: much improved, no dyspnea off supplemental O2 Code(s): R06.02 - SHORTNESS OF BREATH (9) COPD (chronic obstructive pulmonary disease) Assessment/Plan: on systemic steriods. tapered off to soludemrol 40 bid. supplemental O2 Code(s): J44.9 - CHRONIC OBSTRUCTIVE PULMONARY DISEASE, UNSPECIFIED Visit type - Emergency Visit Emergency Visit: Yes ED Registration Date: 10/30/18 Care time: The patient presented to the Emergency Department on the above date and was hospitalized for further evaluation of their emergent condition. - New Patient This patient is new to me today: Yes Date on this admission: 11/02/18 - Critical Care Critical Care patient: No - Discharge Referral [facility]erred to [facility] Med P.C.: No
[2018-11-02 08:04] LABS: BASO % 0.3 % (0-2.0); HEMATOCRIT 34.1 % (35.4-49); HEMOGLOBIN 10.9 GM/dL (11.7-16.9); MCH 30.5 pg (25.7-33.7); MCHC 31.9 g/dl (32.0-35.9); MEAN CELL VOLUME 95.5 fl (80-96); MONO % 4.7 % (3.8-10.2); PLATELET COUNT 528 K/MM3 (134-434); RBC 3.57 M/mm3 (4.00-5.60); RDW 15.6 % (11.9-15.9)
[2018-11-02 08:06] LABS: ALBUMIN 3.2 g/dl (3.4-5.0); BILIRUBIN,TOTAL 0.4 mg/dL (0.2-1); BLOOD UREA NITROGEN 36.5 mg/dL (7-18); CALCIUM 9.8 mg/dL (8.5-10.1); CREATININE 1.8 mg/dL (0.55-1.3); MAGNESIUM 2.4 mg/dL (1.8-2.4); POTASSIUM 4.3 mmol/L (3.5-5.1); TOT PROT 7.4 g/dl (6.4-8.2)
[2018-11-02] MEDS ORDERED: INSULIN (LEVEMIR) 100 UNITS/ML UNITS SQ ONE (09:00)
[2018-11-02] MEDS: methylPREDNISolone NA SUCC 40 MG/1 ML VIAL IVPUSH SCH ×2 (09:12→22:47)
[2018-11-02] MEDS: ASPIRIN COATED 81 MG TABLET.EC PO SCH (09:12)
[2018-11-02] MEDS: CLOPIDOGREL BISULFATE 75 MG TABLET (FP) PO SCH (09:13)
[2018-11-02] MEDS: NIFEdipine E.R 60 MG TABLET (UD) PO SCH (09:13)
[2018-11-02] MEDS: SPIRONOLACTONE 25 MG TABLET (FP) PO SCH (09:13)
[2018-11-02] MEDS: ISOSORBIDE MONONITRATE 60 MG TAB.SR.24H (FP) PO SCH (09:13)
[2018-11-02] MEDS: CARVEDILOL 25 MG TABLET (FP) PO SCH ×2 (09:13→22:47)
[2018-11-02 11:15] LABS: ANISOCYTOSIS 1+; MACROCYTOSIS 1+; PLATELET ESTIMATE INCREASED
[2018-11-02] MEDS ORDERED: hydrALAZINE HCL 20 MG/ML VIAL IVPUSH ONE (11:34)
--- NOTE | 2018-11-02 11:34 | PN ---
Progress Note, Physician Chief Complaint: Feels better Not in distress History of Present Illness: Patient was seen and examined. Awake and alert. Chart was reviewed Denies chest pain or palpitations Less SOB but hypertensive - Current Medication List Current Medications: Active Medications Albuterol/Ipratropium (Duoneb -) 1 amp NEB RQ4H [facility] Last Admin: 11/02/18 08:00 Dose: 1 amp Aspirin (Ecotrin -) 81 mg PO DAILY [facility] Last Admin: 11/02/18 09:12 Dose: 81 mg Atorvastatin Calcium (Lipitor -) 80 mg PO HS [facility] Last Admin: 11/01/18 21:29 Dose: 80 mg Carvedilol (Coreg -) 25 mg PO BID [facility] Last Admin: 11/02/18 09:13 Dose: 25 mg Clopidogrel Bisulfate (Plavix -) 75 mg PO DAILY [facility] Last Admin: 11/02/18 09:13 Dose: 75 mg Cyclobenzaprine HCl (Cyclobenzaprine Hcl) 5 mg PO Q8H PRN PRN Reason: BACK PAIN Furosemide (Lasix Injection -) 40 mg IVPUSH BIDLASIX [facility] Last Admin: 11/02/18 06:55 Dose: 40 mg Hydralazine HCl (Apresoline -) 100 mg PO TID [facility] Last Admin: 11/02/18 06:55 Dose: 100 mg Insulin Aspart (Novolog Vial Sliding Scale -) 1 vial SQ ACHS [facility]; Protocol Last Admin: 11/02/18 06:55 Dose: 18 units Insulin Detemir (Levemir Vial) 20 units SQ 0700,2200 [facility] Isosorbide Mononitrate (Imdur -) 60 mg PO DAILY [facility] Last Admin: 11/02/18 09:13 Dose: 60 mg Methylprednisolone Sodium Succinate (Solu-Medrol -) 40 mg IVPUSH BID [facility] Last Admin: 11/02/18 09:12 Dose: 40 mg Nifedipine (Procardia Xl -) 60 mg PO DAILY [facility] Last Admin: 11/02/18 09:13 Dose: 60 mg Spironolactone (Aldactone -) 50 mg PO DAILY [facility] Last Admin: 11/02/18 09:13 Dose: 50 mg - Objective Vital Signs: Vital Signs Temperature 97.9 F 11/02/18 08:49 Pulse Rate 83 11/02/18 08:49 Respiratory Rate 19 11/02/18 08:49 Blood Pressure 197/112 H 11/02/18 08:49 O2 Sat by Pulse Oximetry (%) 98 11/01/18 21:00 Eyes: Yes: PERRL HENT: Yes: Atraumatic Neck: Yes: Supple Cardiovascular: Yes: Regular Rate and Rhythm, S1, S2 Respiratory: Yes: CTA Bilaterally Gastrointestinal: Yes: Normal Bowel Sounds, Soft. No: Tenderness Edema: Yes Edema: LLE: Trace, RLE: Trace Additional Findings/Remarks: - Review of Systems Constitutional: denies: Chills, Fever Cardiovascular: reports: Shortness of Breath. denies: Chest Pain, Palpitations Respiratory: reports: Cough, SOB. denies: Orthopnea, PND Gastrointestinal: denies: Abdominal Pain, Melena, Nausea, Rectal Bleeding, Vomiting Neurological: denies: Dizziness, Headache, Seizure, Syncope Labs: CBC, BMP 11/02/18 07:15 11/02/18 07:15 Problem List - Problems (1) CHF exacerbation Code(s): I50.9 - HEART FAILURE, UNSPECIFIED Qualifiers: Heart failure type: unspecified Qualified Code(s): I50.9 - Heart failure, unspecified (2) COPD (chronic obstructive pulmonary disease) Code(s): J44.9 - CHRONIC OBSTRUCTIVE PULMONARY DISEASE, UNSPECIFIED (3) Diabetes Code(s): E11.9 - TYPE 2 DIABETES MELLITUS WITHOUT COMPLICATIONS (4) Izxob-fk-ymmvkjo kidney injury Code(s): N17.9 - ACUTE KIDNEY FAILURE, UNSPECIFIED; N18.9 - CHRONIC KIDNEY DISEASE, UNSPECIFIED Qualifiers: Chronic kidney disease stage: stage 3 (moderate) (5) Cerebrovascular disease Code(s): I67.9 - CEREBROVASCULAR DISEASE, UNSPECIFIED (6) Cocaine abuse Code(s): F14.10 - COCAINE ABUSE, UNCOMPLICATED (7) Shortness of breath Code(s): R06.02 - SHORTNESS OF BREATH (8) Acute on chronic diastolic (congestive) heart failure Code(s): I50.33 - ACUTE ON CHRONIC DIASTOLIC (CONGESTIVE) HEART FAILURE (9) CAD (coronary artery disease) Code(s): I25.10 - ATHSCL HEART DISEASE OF [place] CORONARY ARTERY W/O ANG PCTRS Qualifiers: Coronary Disease-Associated Artery/Lesion type: [place] artery [place] vs. transplanted heart: [place] heart Associated angina: without angina Qualified Code(s): I25.10 - Atherosclerotic heart disease of [place] coronary artery without angina pectoris (10) Diastolic dysfunction without heart failure Code(s): I51.9 - HEART DISEASE, UNSPECIFIED (11) HTN (hypertension) Code(s): I10 - ESSENTIAL (PRIMARY) HYPERTENSION Qualifiers: Hypertension type: essential hypertension Qualified Code(s): I10 - Essential (primary) hypertension (12) Hyperlipidemia Code(s): E78.5 - HYPERLIPIDEMIA, UNSPECIFIED Qualifiers: Hyperlipidemia type: pure hypercholesterolemia Qualified Code(s): E78.00 - Pure hypercholesterolemia, unspecified Assessment/Plan 1. Acute on chronic class I-II NYHA classification diastolic LV failure 2. HTN - not at goal 3. CAD history of MT, PCI/stent, angina pectoris 4. DM 5. Hypercholesterolemia 6. Cerebrovascular disease 7. TIA post CEA 8. COPD 9. Acute on CKD 10. Substance abuse (Cocaine) 11. History of angioedema related to ACEI PLAN: 1. Continue ASA and Plavix 2. IV Furosemide and Spironolactone. Monitor renal function and electrolytes 3. Continue Carvedilol, Procardia XL and Hydralazine - May need to give IV Hydralazine additional to PO for elevated BP 4. Continue Imdur 5. Continue ASA 6. Continue Lipitor 7. Steroids (need to taper) and bronchodilators Further plans are to follow Nicholas Singletary MD
[2018-11-02] MEDS ORDERED: hydrALAZINE HCL 20 MG/ML VIAL IVPUSH PRN (11:35)
--- NOTE | 2018-11-02 12:35 | PN ---
Progress Note, Physician History of Present Illness: PULMONARY ALERT,COMFORTABLE ,OOB-CHAIR,DYSPNEA IMPROVING - Current Medication List Current Medications: Active Medications Albuterol/Ipratropium (Duoneb -) 1 amp NEB RQ4H [facility] Last Admin: 11/02/18 08:00 Dose: 1 amp Aspirin (Ecotrin -) 81 mg PO DAILY [facility] Last Admin: 11/02/18 09:12 Dose: 81 mg Atorvastatin Calcium (Lipitor -) 80 mg PO HS [facility] Last Admin: 11/01/18 21:29 Dose: 80 mg Carvedilol (Coreg -) 25 mg PO BID [facility] Last Admin: 11/02/18 09:13 Dose: 25 mg Clopidogrel Bisulfate (Plavix -) 75 mg PO DAILY [facility] Last Admin: 11/02/18 09:13 Dose: 75 mg Cyclobenzaprine HCl (Cyclobenzaprine Hcl) 5 mg PO Q8H PRN PRN Reason: BACK PAIN Furosemide (Lasix Injection -) 40 mg IVPUSH BIDLASIX [facility] Last Admin: 11/02/18 06:55 Dose: 40 mg Hydralazine HCl (Apresoline -) 100 mg PO TID [facility] Last Admin: 11/02/18 06:55 Dose: 100 mg Hydralazine HCl (Apresoline Injection -) 10 mg IVPUSH Q6H PRN PRN Reason: HYPERTENSION Insulin Aspart (Novolog Vial Sliding Scale -) 1 vial SQ ACHS [facility]; Protocol Last Admin: 11/02/18 11:57 Dose: 18 units Insulin Detemir (Levemir Vial) 20 units SQ 0700,2200 [facility] Isosorbide Mononitrate (Imdur -) 60 mg PO DAILY [facility] Last Admin: 11/02/18 09:13 Dose: 60 mg Methylprednisolone Sodium Succinate (Solu-Medrol -) 40 mg IVPUSH BID [facility] Last Admin: 11/02/18 09:12 Dose: 40 mg Nifedipine (Procardia Xl -) 60 mg PO DAILY [facility] Last Admin: 11/02/18 09:13 Dose: 60 mg Spironolactone (Aldactone -) 50 mg PO DAILY [facility] Last Admin: 11/02/18 09:13 Dose: 50 mg - Objective Vital Signs: Vital Signs Temperature 97.9 F 11/02/18 08:49 Pulse Rate 83 11/02/18 08:49 Respiratory Rate 19 11/02/18 08:49 Blood Pressure 197/112 H 11/02/18 08:49 O2 Sat by Pulse Oximetry (%) 97 11/02/18 09:00 Constitutional: Yes: Well Nourished, Calm Eyes: Yes: WNL HENT: Yes: WNL Neck: Yes: WNL Cardiovascular: Yes: Regular Rate and Rhythm, S1, S2 Respiratory: Yes: Rales ([place]ILAR RALES) Gastrointestinal: Yes: Normal Bowel Sounds, Soft Extremities: Yes: WNL Edema: Yes Labs: CBC, BMP 11/02/18 07:15 11/02/18 07:15 Assessment/Plan - Problems (1) CHF exacerbation Code(s): I50.9 - HEART FAILURE, UNSPECIFIED Qualifiers: Heart failure type: unspecified Qualified Code(s): I50.9 - Heart failure, unspecified (2) COPD (chronic obstructive pulmonary disease) Code(s): J44.9 - CHRONIC OBSTRUCTIVE PULMONARY DISEASE, UNSPECIFIED (3) Diabetes Code(s): E11.9 - TYPE 2 DIABETES MELLITUS WITHOUT COMPLICATIONS (4) Hypertensive urgency Code(s): I16.0 - HYPERTENSIVE URGENCY (5) Fbrao-zr-bsrjner kidney injury Code(s): N17.9 - ACUTE KIDNEY FAILURE, UNSPECIFIED; N18.9 - CHRONIC KIDNEY DISEASE, UNSPECIFIED Qualifiers: Chronic kidney disease stage: stage 3 (moderate) (6) Cocaine abuse Code(s): F14.10 - COCAINE ABUSE, UNCOMPLICATED (7) Nicotine abuse Code(s): Z72.0 - TOBACCO USE (8) Pleural effusion Code(s): J90 - PLEURAL EFFUSION, NOT ELSEWHERE CLASSIFIED (9) Shortness of breath Code(s): R06.02 - SHORTNESS OF BREATH Assessment/Plan BP CONTROL O2 INHALED BRONCHODILATORS DIURETICS TAPER STEROIDS GLYCEMIC CONTROL DAILY WEIGHTS SMOKING CESSATION CHEST CT DR DOYLE
[2018-11-02] MEDS ORDERED: INSULIN REGULAR HUMAN 100 UNITS/ML *VIAL IVPUSH ONE (18:55)
[2018-11-02] MEDS ORDERED: PT OWN MED DRAWER 7, Y5N ONE (22:29)
[2018-11-02] MEDS: ATORVASTATIN CA 80 MG TABLET (FP) PO SCH (22:47)
[2018-11-03] MEDS: ALBUTEROL SO4 2.5/IPRATROPIUM 0.5 INH SOL 3 ML VIAL.NEB. NEB SCH ×7 (00:38→23:43)
[2018-11-03] MEDS ORDERED: INSULIN (NOVOLOG) ASPART 100 UNITS/ML 10ML VIAL SQ ONE (03:22)
[2018-11-03] MEDS: INSULIN SLIDING SCALE (NOVOLOG) 1 VIAL SQ SCH ×4 (06:52→23:42)
[2018-11-03] MEDS: hydrALAZINE HCL 50 MG TABLET (FP) PO SCH ×3 (06:52→23:37)
[2018-11-03] MEDS: INSULIN (LEVEMIR) 100 UNITS/ML UNITS SQ SCH (06:52)
[2018-11-03] MEDS: FUROSEMIDE 40 MG/4 ML INJECTABLE VIAL IVPUSH SCH ×2 (06:52→13:23)
[2018-11-03] MEDS ORDERED: INSULIN (LEVEMIR) 100 UNITS/ML UNITS SQ ONE (07:26)
[2018-11-03] MEDS ORDERED: INSULIN (LEVEMIR) 100 UNITS/ML UNITS SQ SCH ×3 (07:26→23:36)
--- NOTE | 2018-11-03 07:35 | PN ---
Progress Note, Physician Chief Complaint: Patient stated woke at 3am to go to [employer] machine for snacks. Stated breathing is much improved. History of Present Illness: Patient is a 58 year old male with a significant past medical history of hypertension, diabetes, hyperlipidemia, [place] x 3, cocaine use, COPD/asthma. Patient with a recent admission for TIA and found to have high grade right carotid stenosis. He is s/p CEA on 08/[address] Johnson. Patient presents to the ED today with c/o shortness of breath that started starting today. He also reports a non producitve cough but denies any other symptoms such as fever, chills, sick contacts or travel. No chest pain reported. He usually ambulates with a cane for right knee arthritis. He reports that he has been compliant with his medications at home but did not have a chance to take them yet this morning. He says that he tried using his home inhalers without relief of his shortness of breath whic prompted an ED visit. - Current Medication List Current Medications: Active Medications Albuterol/Ipratropium (Duoneb -) 1 amp NEB RQ4H [facility] Last Admin: 11/03/18 04:30 Dose: 1 amp Aspirin (Ecotrin -) 81 mg PO DAILY [facility] Last Admin: 11/02/18 09:12 Dose: 81 mg Atorvastatin Calcium (Lipitor -) 80 mg PO HS [facility] Last Admin: 11/02/18 22:47 Dose: 80 mg Carvedilol (Coreg -) 25 mg PO BID [facility] Last Admin: 11/02/18 22:47 Dose: 25 mg Clopidogrel Bisulfate (Plavix -) 75 mg PO DAILY [facility] Last Admin: 11/02/18 09:13 Dose: 75 mg Cyclobenzaprine HCl (Cyclobenzaprine Hcl) 5 mg PO Q8H PRN PRN Reason: BACK PAIN Furosemide (Lasix Injection -) 40 mg IVPUSH BIDLASIX [facility] Last Admin: 11/03/18 06:52 Dose: 40 mg Hydralazine HCl (Apresoline -) 100 mg PO TID [facility] Last Admin: 11/03/18 06:52 Dose: 100 mg Hydralazine HCl (Apresoline Injection -) 10 mg IVPUSH Q6H PRN PRN Reason: HYPERTENSION Last Admin: 11/03/18 02:40 Dose: 10 mg Insulin Aspart (Novolog Vial Sliding Scale -) 1 vial SQ ACHS [facility]; Protocol Last Admin: 11/03/18 06:52 Dose: 16 units Insulin Detemir (Levemir Vial) 30 units SQ 0700,2200 [facility] Isosorbide Mononitrate (Imdur -) 60 mg PO DAILY [facility] Last Admin: 11/02/18 09:13 Dose: 60 mg Methylprednisolone Sodium Succinate (Solu-Medrol -) 40 mg IVPUSH BID [facility] Last Admin: 11/02/18 22:47 Dose: 40 mg Nifedipine (Procardia Xl -) 60 mg PO DAILY [facility] Last Admin: 11/02/18 09:13 Dose: 60 mg Spironolactone (Aldactone -) 50 mg PO DAILY [facility] Last Admin: 11/02/18 09:13 Dose: 50 mg - Objective Vital Signs: Vital Signs Temperature 98.3 F 11/03/18 06:39 Pulse Rate 54 L 11/03/18 06:39 Respiratory Rate 18 11/03/18 06:39 Blood Pressure 193/85 H 11/03/18 06:39 O2 Sat by Pulse Oximetry (%) 96 11/02/18 21:00 Additional Findings/Remarks: Constitutional: Yes: Well Nourished, No Distress, Calm Eyes: Yes: WNL, Conjunctiva Clear, EOM Intact HENT: Yes: WNL, Atraumatic, Normocephalic Neck: Yes: WNL, Supple, Trachea Midline Cardiovascular: Yes: WNL, Regular Rate and Rhythm Respiratory: Yes: WNL, Regular, CTA Bilaterally Gastrointestinal: Yes: WNL, Normal Bowel Sounds, Soft ...Rectal Exam: Yes: Deferred Genitourinary: Yes: WNL Breast(s): Yes: WNL Musculoskeletal: Yes: WNL Extremities: Yes: WNL Edema: Yes Edema: LLE: Trace, RLE: Trace Peripheral Pulses WNL: Yes Peripheral Pulses: Left Radial: 2+, Right Radial: 2+, Left Doralis Pedis: 2+, Right Dorsalis Pedis: 2+, Left Femoral: 2+, Right Femoral: 2+ Integumentary: Yes: WNL Neurological: Yes: WNL, Alert, Oriented ...Motor Strength: WNL Psychiatric: Yes: WNL, Alert, Oriented Labs: CBC, BMP 11/02/18 07:15 11/02/18 07:15 Problem List - Problems (1) CHF exacerbation Assessment/Plan: elevated BNP, greater than previous admission. Likely in the setting of medication non compliance and uncontrolled hypertension. No decrease in weights, but clinically improved. tolerating room air and ambulates without shortness of breath. c/w lasix, spironolactone, coreq, procardia and hydralazine. Monitor on tele. BP much improved Code(s): I50.9 - HEART FAILURE, UNSPECIFIED Qualifiers: Heart failure type: unspecified Qualified Code(s): I50.9 - Heart failure, unspecified (2) Diabetes Assessment/Plan: BGM remains in mid to high 400s poor compliance with diet, found patient at vending machine several times during day and cookies and sandwiches at bedside c/w BGM ac/Qhs with novolog sliding scale-increasing scale increase levemir to 40u bid new product trainer for nutritional counseling will consult endocrinology if BGM is not better controlled tomorrow patient refused ABG to determine acidosis, but anion gap on chemistry is 9 and absence of ketones in urine so unlikely to be in DKA BGM may remain high on IV steroids, will continue to monitor Code(s): E11.9 - TYPE 2 DIABETES MELLITUS WITHOUT COMPLICATIONS Qualifiers: Diabetes mellitus type: type 2 (3) Hypertensive urgency Assessment/Plan: BP labile, hign this am prior to meds 193/85 increased procardia to 90 mg LE edema improved appreciate cardiology consultation Code(s): I16.0 - HYPERTENSIVE URGENCY (4) [id number] kidney injury Assessment/Plan: Cr 1.8 avoid nephrotoxic agents monitor daily Cr Code(s): N17.9 - ACUTE KIDNEY FAILURE, UNSPECIFIED; N18.9 - CHRONIC KIDNEY DISEASE, UNSPECIFIED Qualifiers: Chronic kidney disease stage: stage 3 (moderate) (5) Cerebrovascular disease Assessment/Plan: h/p CVA no residual deficits Code(s): I67.9 - CEREBROVASCULAR DISEASE, UNSPECIFIED (6) Cocaine abuse Assessment/Plan: reports no current use Code(s): F14.10 - COCAINE ABUSE, UNCOMPLICATED (7) Nicotine abuse Code(s): Z72.0 - TOBACCO USE (8) Shortness of breath Assessment/Plan: much improved, no dyspnea off supplemental O2 Code(s): R06.02 - SHORTNESS OF BREATH (9) COPD (chronic obstructive pulmonary disease) Assessment/Plan: on systemic steriods decreased steroids to 40mg qd in am and then to PO supplemental O2 prn Code(s): J44.9 - CHRONIC OBSTRUCTIVE PULMONARY DISEASE, UNSPECIFIED Qualifiers: COPD type: unspecified COPD Qualified Code(s): J44.9 - Chronic obstructive pulmonary disease, unspecified Visit type - Emergency Visit Emergency Visit: Yes ED Registration Date: 10/30/18 Care time: The patient presented to the Emergency Department on the above date and was hospitalized for further evaluation of their emergent condition. - New Patient This patient is new to me today: No - Critical Care Critical Care patient: No - Discharge Referral Referred to [facility] No
[2018-11-03] MEDS: ISOSORBIDE MONONITRATE 60 MG TAB.SR.24H (FP) PO SCH (09:09)
[2018-11-03] MEDS: methylPREDNISolone NA SUCC 40 MG/1 ML VIAL IVPUSH SCH (09:09)
[2018-11-03] MEDS: SPIRONOLACTONE 25 MG TABLET (FP) PO SCH (09:09)
[2018-11-03] MEDS: NIFEdipine E.R. 90 MG TABLET (FP) PO SCH (09:10)
[2018-11-03] MEDS: ASPIRIN COATED 81 MG TABLET.EC PO SCH (09:10)
[2018-11-03] MEDS: CLOPIDOGREL BISULFATE 75 MG TABLET (FP) PO SCH (09:10)
[2018-11-03] MEDS: CARVEDILOL 25 MG TABLET (FP) PO SCH ×2 (09:10→23:37)
--- NOTE | 2018-11-03 10:52 | PN ---
Progress Note, Physician History of Present Illness: Dyspnea and cough improving with IV diuresis. - Current Medication List Current Medications: Active Medications Albuterol/Ipratropium (Duoneb -) 1 amp NEB RQ4H [facility] Last Admin: 11/03/18 04:30 Dose: 1 amp Aspirin (Ecotrin -) 81 mg PO DAILY [facility] Last Admin: 11/03/18 09:10 Dose: 81 mg Atorvastatin Calcium (Lipitor -) 80 mg PO HS [facility] Last Admin: 11/02/18 22:47 Dose: 80 mg Carvedilol (Coreg -) 25 mg PO BID [facility] Last Admin: 11/03/18 09:10 Dose: 25 mg Clopidogrel Bisulfate (Plavix -) 75 mg PO DAILY [facility] Last Admin: 11/03/18 09:10 Dose: 75 mg Cyclobenzaprine HCl (Cyclobenzaprine Hcl) 5 mg PO Q8H PRN PRN Reason: BACK PAIN Furosemide (Lasix Injection -) 40 mg IVPUSH BIDLASIX [facility] Last Admin: 11/03/18 06:52 Dose: 40 mg Hydralazine HCl (Apresoline -) 100 mg PO TID [facility] Last Admin: 11/03/18 06:52 Dose: 100 mg Hydralazine HCl (Apresoline Injection -) 10 mg IVPUSH Q6H PRN PRN Reason: HYPERTENSION Last Admin: 11/03/18 02:40 Dose: 10 mg Insulin Aspart (Novolog Vial Sliding Scale -) 1 vial SQ [facility]; Protocol Insulin Detemir (Levemir Vial) 30 units SQ 0700,2200 [facility] Isosorbide Mononitrate (Imdur -) 60 mg PO DAILY [facility] Last Admin: 11/03/18 09:09 Dose: 60 mg Methylprednisolone Sodium Succinate (Solu-Medrol -) 40 mg IVPUSH BID [facility] Last Admin: 11/03/18 09:09 Dose: 40 mg Nifedipine (Procardia Xl -) 90 mg PO DAILY [facility] Last Admin: 11/03/18 09:10 Dose: 90 mg Spironolactone (Aldactone -) 50 mg PO DAILY [facility] Last Admin: 11/03/18 09:09 Dose: 50 mg - Objective Vital Signs: Vital Signs Temperature 97.9 F 11/03/18 09:08 Pulse Rate 87 11/03/18 09:08 Respiratory Rate 18 11/03/18 09:08 Blood Pressure 157/77 11/03/18 09:08 O2 Sat by Pulse Oximetry (%) 96 11/02/18 21:00 Constitutional: Yes: No Distress, Calm Neck: Yes: Supple Cardiovascular: Yes: Regular Rate and Rhythm Respiratory: Yes: Regular, Diminished Gastrointestinal: Yes: Normal Bowel Sounds, Soft Edema: Yes Edema: LLE: 1+, RLE: 1+ Labs: CBC, BMP 11/02/18 07:15 11/02/18 07:15 - ....Imaging EKG: Report Reviewed (Tele: SR with BAKARI) Problem List - Problems (1) COPD (chronic obstructive pulmonary disease) Code(s): J44.9 - CHRONIC OBSTRUCTIVE PULMONARY DISEASE, UNSPECIFIED Qualifiers: COPD type: unspecified COPD Qualified Code(s): J44.9 - Chronic obstructive pulmonary disease, unspecified (2) Diabetes Code(s): E11.9 - TYPE 2 DIABETES MELLITUS WITHOUT COMPLICATIONS Qualifiers: Diabetes mellitus type: type 2 (3) Glyok-zj-flhjwvk kidney injury Code(s): N17.9 - ACUTE KIDNEY FAILURE, UNSPECIFIED; N18.9 - CHRONIC KIDNEY DISEASE, UNSPECIFIED Qualifiers: Chronic kidney disease stage: stage 3 (moderate) (4) Cerebrovascular disease Code(s): I67.9 - CEREBROVASCULAR DISEASE, UNSPECIFIED (5) Shortness of breath Code(s): R06.02 - SHORTNESS OF BREATH (6) Acute on chronic diastolic (congestive) heart failure Code(s): I50.33 - ACUTE ON CHRONIC DIASTOLIC (CONGESTIVE) HEART FAILURE (7) CKD (chronic kidney disease) stage 3, GFR 30-59 ml/min Code(s): N18.3 - CHRONIC KIDNEY DISEASE, STAGE 3 (MODERATE) (8) Hyperlipidemia Code(s): E78.5 - HYPERLIPIDEMIA, UNSPECIFIED Qualifiers: Hyperlipidemia type: pure hypercholesterolemia Qualified Code(s): E78.00 - Pure hypercholesterolemia, unspecified Assessment/Plan 11/02/[address]: Bilateral min-mild upper and lower lung opacity c/w congestion, mild LAE, LV dilatation 04/13/2018 Echo: Normal LV size and fxn with mild cLVH, grade II diastolic dysfunction, mod LAE, mild MR, mild AR 10/27/2017 Echo: Mild cLVH, normal RV and LV size and fxn, mild-mod MR, mild AR 10/29/2017 Regadenoson stress: Large inferior, inferolateral and apical infarct without ischemia, LVEF 29% 1. Recurrent acute on chronic diastolic heart failure referable to 2. Hypertensive urgency due to medication noncompliance 3. CAD and history of [place], PCI/stent with h/o demand ischemia 4. PVC 5. COPD h/o exacerbation 6. Hypercholesterolemia 7. DM improved controlled 6.1% 8. Acute on CKD3 with hyponatremia 9. Substance abuse (Cocaine) 10. History of angioedema due to ACEI 11. TIA post right CEA 12. Leukocytosis on steroids PLAN: 1. IV diuresis and spirinolactone 50 qd with monitor for diuretic response, renal fxn and electrolytes 2. Continue Carvedilol 25 bid, Hydralazine 100 tid, ASA 81 qd, Plavix 75 qd, Lipitor 80 qhs, Procardia XL 90 qd, Imdur 60 qd and uptitrate as tolerated 3. DVT prophylaxis with Lovenox 4. BD, O2 as needed, IV steroid taper, addressed importance of diet and medication compliance
--- NOTE | 2018-11-03 14:18 | PN ---
Progress Note, Physician History of Present Illness: pulmonary alert,comfortable,oob-chair,-sob - Current Medication List Current Medications: Active Medications Albuterol/Ipratropium (Duoneb -) 1 amp NEB RQ4H [facility] Last Admin: 11/03/18 11:40 Dose: 1 amp Aspirin (Ecotrin -) 81 mg PO DAILY [facility] Last Admin: 11/03/18 09:10 Dose: 81 mg Atorvastatin Calcium (Lipitor -) 80 mg PO HS [facility] Last Admin: 11/02/18 22:47 Dose: 80 mg Carvedilol (Coreg -) 25 mg PO BID [facility] Last Admin: 11/03/18 09:10 Dose: 25 mg Clopidogrel Bisulfate (Plavix -) 75 mg PO DAILY [facility] Last Admin: 11/03/18 09:10 Dose: 75 mg Cyclobenzaprine HCl (Cyclobenzaprine Hcl) 5 mg PO Q8H PRN PRN Reason: BACK PAIN Furosemide (Lasix Injection -) 40 mg IVPUSH BIDLASIX [facility] Last Admin: 11/03/18 13:23 Dose: 40 mg Hydralazine HCl (Apresoline -) 100 mg PO TID [facility] Last Admin: 11/03/18 13:23 Dose: 100 mg Hydralazine HCl (Apresoline Injection -) 10 mg IVPUSH Q6H PRN PRN Reason: HYPERTENSION Last Admin: 11/03/18 02:40 Dose: 10 mg Insulin Aspart (Novolog Vial Sliding Scale -) 1 vial SQ ACHS [facility]; Protocol Last Admin: 11/03/18 11:54 Dose: 20 unit Insulin Detemir (Levemir Vial) 30 units SQ 0700,2200 [facility] Isosorbide Mononitrate (Imdur -) 60 mg PO DAILY [facility] Last Admin: 11/03/18 09:09 Dose: 60 mg Methylprednisolone Sodium Succinate (Solu-Medrol -) 40 mg IVPUSH BID [facility] Last Admin: 11/03/18 09:09 Dose: 40 mg Nifedipine (Procardia Xl -) 90 mg PO DAILY [facility] Last Admin: 11/03/18 09:10 Dose: 90 mg Spironolactone (Aldactone -) 50 mg PO DAILY [facility] Last Admin: 11/03/18 09:09 Dose: 50 mg - Objective Vital Signs: Vital Signs Temperature 98.8 F 11/03/18 13:46 Pulse Rate 102 H 11/03/18 13:46 Respiratory Rate 18 11/03/18 13:46 Blood Pressure 136/85 11/03/18 13:46 O2 Sat by Pulse Oximetry (%) 87 L 11/03/18 09:00 Constitutional: Yes: Well Nourished, Calm Eyes: Yes: WNL HENT: Yes: WNL Neck: Yes: WNL Cardiovascular: Yes: Regular Rate and Rhythm, S1, S2 Respiratory: Yes: Diminished Gastrointestinal: Yes: Normal Bowel Sounds, Soft Extremities: Yes: WNL Edema: Yes - ....Imaging Cat Scan: Report Reviewed, Image Reviewed Assessment/Plan - Problems (1) CHF exacerbation Code(s): I50.9 - HEART FAILURE, UNSPECIFIED Qualifiers: Heart failure type: unspecified Qualified Code(s): I50.9 - Heart failure, unspecified (2) COPD (chronic obstructive pulmonary disease) Code(s): J44.9 - CHRONIC OBSTRUCTIVE PULMONARY DISEASE, UNSPECIFIED (3) Diabetes Code(s): E11.9 - TYPE 2 DIABETES MELLITUS WITHOUT COMPLICATIONS (4) Hypertensive urgency Code(s): I16.0 - HYPERTENSIVE URGENCY (5) Kvedx-xj-gmbubfo kidney injury Code(s): N17.9 - ACUTE KIDNEY FAILURE, UNSPECIFIED; N18.9 - CHRONIC KIDNEY DISEASE, UNSPECIFIED Qualifiers: Chronic kidney disease stage: stage 3 (moderate) (6) Cocaine abuse Code(s): F14.10 - COCAINE ABUSE, UNCOMPLICATED (7) Nicotine abuse Code(s): Z72.0 - TOBACCO USE (8) Pleural effusion Code(s): J90 - PLEURAL EFFUSION, NOT ELSEWHERE CLASSIFIED (9) Shortness of breath Code(s): R06.02 - SHORTNESS OF BREATH 10 RUL NODULE Assessment/Plan BP CONTROL O2 INHALED BRONCHODILATORS DIURETICS TAPER STEROIDS GLYCEMIC CONTROL DAILY WEIGHTS SMOKING CESSATION F/U CHEST CT [address] DOYLE
[2018-11-03 14:22] VITALS: BMI 33.2
[2018-11-03 16:30] LABS: URINE APPEARANCE CLEAR; URINE BILIRUBIN NEGATIVE (NEGATIVE); URINE COLOR YELLOW; URINE GLUCOSE (UA) 3+ (NEGATIVE); URINE KETONE NEGATIVE (NEGATIVE); URINE LEUK ESTERASE NEGATIVE (NEGATIVE); URINE NITRITE NEGATIVE (NEGATIVE); URINE PROTEIN NEGATIVE (NEGATIVE); URINE UROBILINOGEN 0.2 mg/dL (0.2-1.0)
--- NOTE | 2018-11-03 23:29 | CONSULT ---
Consult Consult Specialty:: endocrine Referred by:: ras Caba Reason for Consultation:: DM2 uncontrolled - History of Present Illness Chief Complaint: high sugar and cant breath History of Present Illness: 58 year old male with a significant past medical history of DM2,hypertension, ckd, hyperlipidemia, SD x 3, cocaine use, COPD/asthma. Patient with a recent admission for TIA and found to have high grade right carotid stenosis. He is s/ p carotid surgery on 08/[address] Johnson. Patient presented with c/o shortness of breath , a non productive cough wheezing and difficulty with simple tasks walking and ambulation but denies fever chills nausea or vomiting. - Past Medical History THERAPEUTIC RADIOLOGIST: No: CVA Cardio/Vascular: Yes: CAD (S/P PCI), HTN, Hyperlipdemia, SD, Other (dilated cardiomyopathy (nonischemic), LV systolic dysfunction, ) Pulmonary: Yes: Asthma Gastrointestinal: Yes: GERD Renal/: Yes: Renal Inusuff Musculoskeletal: Yes: Chronic low back pain Additional Medical History: Rightt achilles tendon tear. Rightt testicular torsion. Angioedema due to ACEI - Alcohol/Substance Use Hx Alcohol Use: No Number of Drinks Daily: 3 (beer) History of Substance Use: reports: Cocaine - Smoking History Smoking history: Current some day smoker Have you smoked in the past 12 months: No Aproximately how many cigarettes per day: 2 If you are a former smoker, when did you quit?: smokes 2 x per week - Social History ADL: Independent Occupation: Employed History of Recent Travel: No Home Medications - Allergies Allergies/Adverse Reactions: Allergies Allergy/AdvReac Type Severity Reaction Status Date / Time IRMA Inhibitors Allergy Verified 10/30/18 07:13 - Home Medications Home Medications: Ambulatory Orders Furosemide [Lasix -] 40 mg PO DAILY #30 tablet 07/02/18 Isosorbide Mononitrate [Imdur -] 60 mg PO DAILY #30 tab.sr.24h 07/02/18 Hydralazine HCl 100 mg PO TID 08/09/18 Atorvastatin Ca [Lipitor] 80 mg PO HS #30 tablet 08/17/18 Carvedilol [Coreg -] 25 mg PO BID #60 tablet 08/17/18 Nifedipine ER [Procardia XL -] 60 mg PO DAILY #30 tab.er.24 08/17/18 Spironolactone [Aldactone -] 50 mg PO DAILY #30 tablet 08/17/18 Aspirin Coated [Ecotrin -] 3.25 mg PO DAILY 10/19/18 Clopidogrel Bisulfate [Plavix] 75 mg PO DAILY 10/19/18 Glipizide Xl [Glucotrol Xl -] 2.5 mg PO DAILY 10/19/18 metFORMIN HCL [Metformin ER Osmotic] 1,000 mg PO DAILY 10/19/18 Cyclobenzaprine HCl 5 mg PO Q8H PRN #6 tablet 10/20/18 Methyl Salicylate/Menthol Oint [Analgesic [place] -] 1 applic TP DAILY PRN #1 applic 10/20/18 Albuterol 0.083% Nebulizer Jane [Ventolin 0.083% Nebulizer Soln -] 1 amp NEB Q4H #10 amp 11/01/18 Furosemide [Lasix] 40 mg PO DAILY #90 tablet 11/01/18 Miscellaneous Medical Supply [Glucometer Device] 1 each .ROUTE ASDIR #1 kit 01/11 Miscellaneous [employer] Supply [Glucometer Test Strips #100] 1 each .ROUTE ASDIR # 1 box 11/03/18 Family Disease History - Family Disease History Family Disease History: Diabetes: Sister, Other: Brother (DRUGS) Review of Systems - Review of Systems Constitutional: reports: Lethargy, Weakness Eyes: reports: Blurred Vision, Recent Change in Vision HENT: reports: No Symptoms Neck: reports: No Symptoms Cardiovascular: reports: Palpitations, Shortness of Breath Respiratory: reports: Exercise Intolerance, SOB on Exertion, Wheezing Gastrointestinal: reports: Bloating, Nausea Genitourinary: reports: No Symptoms Breasts: reports: No Symptoms Reported Musculoskeletal: reports: Joint Pain, Joint Swelling, Muscle Pain, Muscle Cramps Integumentary: reports: No Symptoms Neurological: reports: Numbness, Weakness Endocrine: reports: Unexplained Weight Gain Physical Exam Vital Signs: Vital Signs Temperature 98.5 F 11/03/18 18:00 Pulse Rate 81 11/03/18 18:00 Respiratory Rate 18 11/03/18 18:00 Blood Pressure 166/102 H 11/03/18 18:00 O2 Sat by Pulse Oximetry (%) 87 L 11/03/18 09:00 Constitutional: Yes: Anxious Eyes: Yes: EOM Intact HENT: Yes: Normocephalic Neck: Yes: Trachea Midline Cardiovascular: Yes: Tachycardia, Murmur Respiratory: Yes: On Nasal O2, Rhonchi, SOB, Tachypnea, Wheezes Gastrointestinal: Yes: Abdomen, Obese ...Rectal Exam: Yes: Deferred Musculoskeletal: Yes: Muscle Pain, Muscle Weakness Extremities: Yes: WNL Neurological: Yes: Alert, Oriented Labs: CBC, BMP 11/02/18 07:15 11/02/18 07:15 Problem List - Problems (1) Diabetic nephropathy associated with type 2 diabetes mellitus Code(s): E11.21 - TYPE 2 DIABETES MELLITUS WITH DIABETIC NEPHROPATHY (2) CHF exacerbation Code(s): I50.9 - HEART FAILURE, UNSPECIFIED Qualifiers: Heart failure type: unspecified Qualified Code(s): I50.9 - Heart failure, unspecified (3) Hypertensive urgency Code(s): I16.0 - HYPERTENSIVE URGENCY Assessment/Plan Current Active Problems CHF exacerbation (Acute) COPD (chronic obstructive pulmonary disease) (Acute) DVT prophylaxis (Acute) Diabetes (Acute) Hypertensive urgency (Acute) Prophylactic measure (Acute) ckd Abnormal Lab Results 11/03/18 14:45 Urine Glucose (UA) 3+ H Laboratory Results - last 24 hr 11/03/18 11/03/18 11/03/18 06:22 08:17 11:53 POC Glucometer 352 362 463 Urine Color Urine Appearance Urine pH Ur Specific [place] Urine Protein Urine Glucose (UA) Urine Ketones Urine Blood Urine Nitrite Urine Bilirubin Urine Urobilinogen Ur Leukocyte Esterase 11/03/18 11/03/18 14:45 16:49 POC Glucometer 417 Urine Color Yellow Urine Appearance Clear Urine pH 5.0 Ur Specific [place] 1.010 Urine Protein Negative Urine Glucose (UA) 3+ H Urine Ketones Negative Urine Blood Negative Urine Nitrite Negative Urine Bilirubin Negative Urine Urobilinogen 0.2 Ur Leukocyte Esterase Negative ) plan: renal consult ckd no metformin titrate insulin doses as hba1c is low will need low dose januvia 25mg daily bgm novolog scale
[2018-11-03] MEDS ORDERED: INSULIN SLIDING SCALE (NOVOLOG) 1 VIAL SQ SCH (23:30)
[2018-11-03] MEDS: ATORVASTATIN CA 80 MG TABLET (FP) PO SCH (23:37)
[2018-11-04] MEDS: ALBUTEROL SO4 2.5/IPRATROPIUM 0.5 INH SOL 3 ML VIAL.NEB. NEB SCH ×3 (04:28→12:08)
[2018-11-04] MEDS: INSULIN SLIDING SCALE (NOVOLOG) 1 VIAL SQ SCH ×2 (05:43→10:40)
[2018-11-04] MEDS: FUROSEMIDE 40 MG/4 ML INJECTABLE VIAL IVPUSH SCH (05:43)
[2018-11-04] MEDS: hydrALAZINE HCL 50 MG TABLET (FP) PO SCH ×2 (05:43→13:36)
--- NOTE | 2018-11-04 07:46 | PN ---
Progress Note, Physician Chief Complaint: Patient stated woke at 3am [facility] [employer] [facility]. Stated breathing is much improved. History of Present Illness: Patient is a 58 year old male with a significant past medical history of hypertension, diabetes, hyperlipidemia, CT x 3, cocaine use, COPD/asthma. Patient with a recent admission for TIA and found to have high grade right carotid stenosis. He is s/p CEA on 08/[address] Johnson. Patient presents to the ED today with c/o shortness of breath that started starting today. He also reports a non producitve cough but denies any other symptoms such as fever, chills, sick contacts or travel. No chest pain reported. He usually ambulates with a cane for right knee arthritis. He reports that he has been compliant with his medications at home but did not have a chance to take them yet this morning. He says that he tried using his home inhalers without relief of his shortness of breath whic prompted an ED visit. - Current Medication List Current Medications: Active Medications Albuterol/Ipratropium (Duoneb -) 1 amp NEB RQ4H [facility] Last Admin: 11/04/18 04:28 Dose: Not Given Aspirin (Ecotrin -) 81 mg PO DAILY [facility] Last Admin: 11/03/18 09:10 Dose: 81 mg Atorvastatin Calcium (Lipitor -) 80 mg PO HS [facility] Last Admin: 11/03/18 23:37 Dose: 80 mg Carvedilol (Coreg -) 25 mg PO BID [facility] Last Admin: 11/03/18 23:37 Dose: 25 mg Clopidogrel Bisulfate (Plavix -) 75 mg PO DAILY [facility] Last Admin: 11/03/18 09:10 Dose: 75 mg Cyclobenzaprine HCl (Cyclobenzaprine Hcl) 5 mg PO Q8H PRN PRN Reason: BACK PAIN Furosemide (Lasix Injection -) 40 mg IVPUSH BIDLASIX [facility] Last Admin: 11/04/18 05:43 Dose: 40 mg Hydralazine HCl (Apresoline -) 100 mg PO TID [facility] Last Admin: 11/04/18 05:43 Dose: 100 mg Hydralazine HCl (Apresoline Injection -) 10 mg IVPUSH Q6H PRN PRN Reason: HYPERTENSION Last Admin: 11/03/18 02:40 Dose: 10 mg Insulin Aspart (Novolog Vial Sliding Scale -) 1 vial SQ Q4HPO [facility]; Protocol Last Admin: 11/04/18 05:43 Dose: 5 units Insulin Detemir (Levemir Vial) 40 units SQ BID@0700,2200 [facility] Last Admin: 11/04/18 07:18 Dose: 40 units Isosorbide Mononitrate (Imdur -) 60 mg PO DAILY [facility] Last Admin: 11/03/18 09:09 Dose: 60 mg Methylprednisolone Sodium Succinate (Solu-Medrol -) 40 mg IVPUSH DAILY [facility] Nifedipine (Procardia Xl -) 90 mg PO DAILY [facility] Last Admin: 11/03/18 09:10 Dose: 90 mg Spironolactone (Aldactone -) 50 mg PO DAILY [facility] Last Admin: 11/03/18 09:09 Dose: 50 mg - Objective Vital Signs: Vital Signs Temperature 98.0 F 11/04/18 06:00 Pulse Rate 83 11/04/18 06:00 Respiratory Rate 18 11/04/18 06:00 Blood Pressure 157/106 H 11/04/18 06:00 O2 Sat by Pulse Oximetry (%) 95 11/03/18 21:00 Labs: CBC, BMP 11/02/18 07:15 11/02/18 07:15 Problem List - Problems (1) CHF exacerbation Code(s): I50.9 - HEART FAILURE, UNSPECIFIED Qualifiers: Heart failure type: unspecified Qualified Code(s): I50.9 - Heart failure, unspecified (2) Diabetes Code(s): E11.9 - TYPE 2 DIABETES MELLITUS WITHOUT COMPLICATIONS Qualifiers: Diabetes mellitus type: type 2 (3) Hypertensive urgency Code(s): I16.0 - HYPERTENSIVE URGENCY (4) Vhrwp-bd-emmsxvd kidney injury Code(s): N17.9 - ACUTE KIDNEY FAILURE, UNSPECIFIED; N18.9 - CHRONIC KIDNEY DISEASE, UNSPECIFIED Qualifiers: Chronic kidney disease stage: stage 3 (moderate) (5) Cerebrovascular disease Code(s): I67.9 - CEREBROVASCULAR DISEASE, UNSPECIFIED (6) Cocaine abuse Code(s): F14.10 - COCAINE ABUSE, UNCOMPLICATED (7) Nicotine abuse Code(s): Z72.0 - TOBACCO USE (8) Shortness of breath Code(s): R06.02 - SHORTNESS OF BREATH (9) COPD (chronic obstructive pulmonary disease) Code(s): J44.9 - CHRONIC OBSTRUCTIVE PULMONARY DISEASE, UNSPECIFIED Qualifiers: COPD type: unspecified COPD Qualified Code(s): J44.9 - Chronic obstructive pulmonary disease, unspecified
[2018-11-04] MEDS: SPIRONOLACTONE 25 MG TABLET (FP) PO SCH (09:08)
[2018-11-04] MEDS: CLOPIDOGREL BISULFATE 75 MG TABLET (FP) PO SCH (09:08)
[2018-11-04] MEDS: CARVEDILOL 25 MG TABLET (FP) PO SCH (09:08)
[2018-11-04] MEDS: NIFEdipine E.R. 90 MG TABLET (FP) PO SCH (09:08)
[2018-11-04] MEDS: ISOSORBIDE MONONITRATE 60 MG TAB.SR.24H (FP) PO SCH (09:08)
[2018-11-04] MEDS: ASPIRIN COATED 81 MG TABLET.EC PO SCH (09:09)
[2018-11-04] MEDS ORDERED: methylPREDNISolone NA SUCC 40 MG/1 ML VIAL IVPUSH SCH (10:00)
--- NOTE | 2018-11-04 10:24 | PN ---
Progress Note, Physician History of Present Illness: Dyspnea on exertion and cough improving with IV diuresis, feels back to baseline and ready to return home. - Current Medication List Current Medications: Active Medications Albuterol/Ipratropium (Duoneb -) 1 amp NEB RQ4H [facility] Last Admin: 11/04/18 08:04 Dose: 1 amp Aspirin (Ecotrin -) 81 mg PO DAILY [facility] Last Admin: 11/04/18 09:09 Dose: 81 mg Atorvastatin Calcium (Lipitor -) 80 mg PO HS [facility] Last Admin: 11/03/18 23:37 Dose: 80 mg Carvedilol (Coreg -) 25 mg PO BID [facility] Last Admin: 11/04/18 09:08 Dose: 25 mg Clopidogrel Bisulfate (Plavix -) 75 mg PO DAILY [facility] Last Admin: 11/04/18 09:08 Dose: 75 mg Cyclobenzaprine HCl (Cyclobenzaprine Hcl) 5 mg PO Q8H PRN PRN Reason: BACK PAIN Furosemide (Lasix Injection -) 40 mg IVPUSH BIDLASIX [facility] Last Admin: 11/04/18 05:43 Dose: 40 mg Hydralazine HCl (Apresoline -) 100 mg PO TID [facility] Last Admin: 11/04/18 05:43 Dose: 100 mg Hydralazine HCl (Apresoline Injection -) 10 mg IVPUSH Q6H PRN PRN Reason: HYPERTENSION Last Admin: 11/03/18 02:40 Dose: 10 mg Insulin Aspart (Novolog Vial Sliding Scale -) 1 vial SQ Q4HPO [facility]; Protocol Last Admin: 11/04/18 05:43 Dose: 5 units Insulin Detemir (Levemir Vial) 40 units SQ BID@0700,2200 [facility] Last Admin: 11/04/18 07:18 Dose: 40 units Isosorbide Mononitrate (Imdur -) 60 mg PO DAILY [facility] Last Admin: 11/04/18 09:08 Dose: 60 mg Methylprednisolone Sodium Succinate (Solu-Medrol -) 40 mg IVPUSH DAILY [facility] Last Admin: 11/04/18 09:09 Dose: Not Given Nifedipine (Procardia Xl -) 90 mg PO DAILY [facility] Last Admin: 11/04/18 09:08 Dose: 90 mg Spironolactone (Aldactone -) 50 mg PO DAILY [facility] Last Admin: 11/04/18 09:08 Dose: 50 mg - Objective Vital Signs: Vital Signs Temperature 98.0 F 11/04/18 06:00 Pulse Rate 83 11/04/18 06:00 Respiratory Rate 18 11/04/18 06:00 Blood Pressure 157/106 H 11/04/18 06:00 O2 Sat by Pulse Oximetry (%) 95 11/03/18 21:00 Constitutional: Yes: No Distress, Calm Neck: Yes: Supple Cardiovascular: Yes: Regular Rate and Rhythm Respiratory: Yes: Regular, CTA Bilaterally Gastrointestinal: Yes: Normal Bowel Sounds, Soft Edema: Yes Edema: LLE: Trace, RLE: Trace Labs: CBC, BMP 11/02/18 07:15 11/02/18 07:15 - ....Imaging EKG: Report Reviewed (Tele: NSR occ [facility]) Problem List - Problems (1) COPD (chronic obstructive pulmonary disease) Code(s): J44.9 - CHRONIC OBSTRUCTIVE PULMONARY DISEASE, UNSPECIFIED Qualifiers: COPD type: unspecified COPD Qualified Code(s): J44.9 - Chronic obstructive pulmonary disease, unspecified (2) Diabetes Code(s): E11.9 - TYPE 2 DIABETES MELLITUS WITHOUT COMPLICATIONS Qualifiers: Diabetes mellitus type: type 2 (3) Azwyj-sm-fcypsrb kidney injury Code(s): N17.9 - ACUTE KIDNEY FAILURE, UNSPECIFIED; N18.9 - CHRONIC KIDNEY DISEASE, UNSPECIFIED Qualifiers: Chronic kidney disease stage: stage 3 (moderate) (4) Cerebrovascular disease Code(s): I67.9 - CEREBROVASCULAR DISEASE, UNSPECIFIED (5) Shortness of breath Code(s): R06.02 - SHORTNESS OF BREATH (6) Acute on chronic diastolic (congestive) heart failure Code(s): I50.33 - ACUTE ON CHRONIC DIASTOLIC (CONGESTIVE) HEART FAILURE (7) CKD (chronic kidney disease) stage 3, GFR 30-59 ml/min Code(s): N18.3 - CHRONIC KIDNEY DISEASE, STAGE 3 (MODERATE) (8) Hyperlipidemia Code(s): E78.5 - HYPERLIPIDEMIA, UNSPECIFIED Qualifiers: Hyperlipidemia type: pure hypercholesterolemia Qualified Code(s): E78.00 - Pure hypercholesterolemia, unspecified Assessment/Plan 11/02/[address]: Bilateral min-mild upper and lower lung opacity c/w congestion, mild LAE, LV dilatation 04/13/2018 Echo: Normal LV size and fxn with mild cLVH, grade II diastolic dysfunction, mod LAE, mild MR, mild AR 10/27/2017 Echo: Mild cLVH, normal RV and LV size and fxn, mild-mod MR, mild AR 10/29/2017 Regadenoson stress: Large inferior, inferolateral and apical infarct without ischemia, LVEF 29% 1. Recurrent acute on chronic diastolic heart failure referable to 2. Hypertensive urgency due to diet and medication noncompliance 3. CAD and history of [place], PCI/stent with h/o demand ischemia 4. PVC 5. COPD h/o exacerbation 6. Hypercholesterolemia 7. DM improved controlled 6.1% 8. Acute on CKD3 with hyponatremia resolving 9. Substance abuse (Cocaine) 10. History of angioedema due to ACEI 11. TIA post right CEA 12. Leukocytosis on steroids PLAN: 1. Resume oral diuresis and spirinolactone 50 qd with monitor for diuretic response, renal fxn and electrolytes 2. Continue Carvedilol 25 bid, Hydralazine 100 tid, ASA 81 qd, Plavix 75 qd, Lipitor 80 qhs, Procardia XL 90 qd, Imdur 60 qd and uptitrate as tolerated 3. DVT prophylaxis with Lovenox 4. BD, O2 as needed, oral steroid taper, addressed importance of diet and medication compliance 5. F/u in cardiology office upon d/c
[2018-11-04 10:29] VITALS: BP 173/106; PULSE 76; TEMP 98.4
[2018-11-04 11:57] LABS: BASO % 0.4 % (0-2.0); EOS % 1.8 % (0-4.5); HEMATOCRIT 39.1 % (35.4-49); HEMOGLOBIN 12.5 GM/dL (11.7-16.9); LYMPH % 16.2 % (8-40); MEAN CELL VOLUME 93.7 fl (80-96); MEAN PLT VOLUME 7.5 fl (7.5-11.1); MONO % 5.9 % (3.8-10.2); NEUT % 75.7 % (42.8-82.8); PLATELET COUNT 538 K/MM3 (134-434); RBC 4.17 M/mm3 (4.00-5.60); RDW 15.1 % (11.9-15.9); WHITE BLOOD COUNT 16.9 K/mm3 (4.0-10.0)
[2018-11-04 12:32] LABS: ALBUMIN 3.2 g/dl (3.4-5.0); BILIRUBIN,TOTAL 0.6 mg/dL (0.2-1); BLOOD UREA NITROGEN 36.4 mg/dL (7-18); CREATININE 1.6 mg/dL (0.55-1.3); MAGNESIUM 2.4 mg/dL (1.8-2.4); POTASSIUM 3.8 mmol/L (3.5-5.1); TOT PROT 6.9 g/dl (6.4-8.2)
--- NOTE | 2018-11-04 13:05 | DS ---
Physical Exam: SUBJECTIVE: Patient seen and examined History of Present Illness: Patient is a 58 year old male with a significant past medical history of hypertension, diabetes, hyperlipidemia, [place] x 3, cocaine use, COPD/asthma. Patient with a recent admission for TIA and found to have high grade right carotid stenosis. He is s/p CEA on 08/[address] Johnson. Patient presents to the ED today with c/o shortness of breath that started starting today. He also reports a non producitve cough but denies any other symptoms such as fever, chills, sick contacts or travel. No chest pain reported. He usually ambulates with a cane for right knee arthritis. He reports that he has been compliant with his medications at home but did not have a chance to take them yet this morning. He says that he tried using his home inhalers without relief of his shortness of breath whic prompted an ED visit. - Current Medication List Current Medications: Active Medications Albuterol/Ipratropium (Duoneb -) 1 amp NEB RQ4H [facility] Last Admin: 11/03/18 04:30 Dose: 1 amp Aspirin (Ecotrin -) 81 mg PO DAILY [facility] Last Admin: 11/02/18 09:12 Dose: 81 mg Atorvastatin Calcium (Lipitor -) 80 mg PO HS [facility] Last Admin: 11/02/18 22:47 Dose: 80 mg Carvedilol (Coreg -) 25 mg PO BID [facility] Last Admin: 11/02/18 22:47 Dose: 25 mg Clopidogrel Bisulfate (Plavix -) 75 mg PO DAILY [facility] Last Admin: 11/02/18 09:13 Dose: 75 mg Cyclobenzaprine HCl (Cyclobenzaprine Hcl) 5 mg PO Q8H PRN PRN Reason: BACK PAIN Furosemide (Lasix Injection -) 40 mg IVPUSH BIDLASIX [facility] Last Admin: 11/03/18 06:52 Dose: 40 mg Hydralazine HCl (Apresoline -) 100 mg PO TID [facility] Last Admin: 11/03/18 06:52 Dose: 100 mg Hydralazine HCl (Apresoline Injection -) 10 mg IVPUSH Q6H PRN PRN Reason: HYPERTENSION Last Admin: 11/03/18 02:40 Dose: 10 mg Insulin Aspart (Novolog Vial Sliding Scale -) 1 vial SQ [facility]; Protocol Last Admin: 11/03/18 06:52 Dose: 16 units Insulin Detemir (Levemir Vial) 30 units SQ 0700,2200 [facility] Isosorbide Mononitrate (Imdur -) 60 mg PO DAILY [facility] Last Admin: 11/02/18 09:13 Dose: 60 mg Methylprednisolone Sodium Succinate (Solu-Medrol -) 40 mg IVPUSH BID [facility] Last Admin: 11/02/18 22:47 Dose: 40 mg Nifedipine (Procardia Xl -) 60 mg PO DAILY [facility] Last Admin: 11/02/18 09:13 Dose: 60 mg Spironolactone (Aldactone -) 50 mg PO DAILY [facility] Last Admin: 11/02/18 09:13 Dose: 50 mg - Objective Vital Signs: Vital Signs Temperature 98.3 F 11/03/18 06:39 Pulse Rate 54 L 11/03/18 06:39 Respiratory Rate 18 11/03/18 06:39 Blood Pressure 193/85 H 11/03/18 06:39 O2 Sat by Pulse Oximetry (%) 96 11/02/18 21:00 Additional Findings/Remarks: Constitutional: Yes: Well Nourished, No Distress, Calm Eyes: Yes: WNL, Conjunctiva Clear, EOM Intact HENT: Yes: WNL, Atraumatic, Normocephalic Neck: Yes: WNL, Supple, Trachea Midline Cardiovascular: Yes: WNL, Regular Rate and Rhythm Respiratory: Yes: WNL, Regular, CTA Bilaterally Gastrointestinal: Yes: WNL, Normal Bowel Sounds, Soft ...Rectal Exam: Yes: Deferred Genitourinary: Yes: WNL Breast(s): Yes: WNL Musculoskeletal: Yes: WNL Extremities: Yes: WNL Edema: Yes Edema: LLE: Trace, RLE: Trace Peripheral Pulses WNL: Yes Peripheral Pulses: Left Radial: 2+, Right Radial: 2+, Left Doralis Pedis: 2+, Right Dorsalis Pedis: 2+, Left Femoral: 2+, Right Femoral: 2+ Integumentary: Yes: WNL Neurological: Yes: WNL, Alert, Oriented ...Motor Strength: WNL Psychiatric: Yes: WNL, Alert, Oriented Labs: CBC, BMP 11/02/18 07:15 11/02/18 07:15 Laboratory Results - last 24 hr 11/03/18 11/03/18 11/03/18 14:45 16:49 23:35 WBC RBC Hgb Hct MCV MCH MCHC RDW Plt Count MPV Absolute Neuts (auto) Neutrophils % Lymphocytes % Monocytes % Eosinophils % Basophils % Nucleated RBC % Sodium Potassium Chloride Carbon Dioxide Anion Gap BUN Creatinine Est GFR (CKD-EPI)AfAm Est GFR (CKD-EPI)NonAf POC Glucometer 417 364 Random Glucose Calcium Magnesium Total Bilirubin AST ALT Alkaline Phosphatase Total Protein Albumin Urine Color Yellow Urine Appearance Clear Urine pH 5.0 Ur Specific [place] 1.010 Urine Protein Negative Urine Glucose (UA) 3+ H Urine Ketones Negative Urine Blood Negative Urine Nitrite Negative Urine Bilirubin Negative Urine Urobilinogen 0.2 Ur Leukocyte Esterase Negative 11/04/18 11/04/18 11/04/18 03:04 05:42 10:39 WBC RBC Hgb Hct MCV MCH MCHC RDW Plt Count MPV Absolute Neuts (auto) Neutrophils % Lymphocytes % Monocytes % Eosinophils % Basophils % Nucleated RBC % Sodium Potassium Chloride Carbon Dioxide Anion Gap BUN Creatinine Est GFR (CKD-EPI)AfAm Est GFR (CKD-EPI)NonAf POC Glucometer 218 165 190 Random Glucose Calcium Magnesium Total Bilirubin AST ALT Alkaline Phosphatase Total Protein Albumin Urine Color Urine Appearance Urine pH Ur Specific [place] Urine Protein Urine Glucose (UA) Urine Ketones Urine Blood Urine Nitrite Urine Bilirubin Urine Urobilinogen Ur Leukocyte Esterase 11/04/18 11/04/18 11:30 11:30 WBC 16.9 H RBC 4.17 Hgb 12.5 Hct 39.1 MCV 93.7 MCH 30.0 MCHC 32.0 RDW 15.1 Plt Count 538 H MPV 7.5 Absolute Neuts (auto) 12.8 H Neutrophils % 75.7 Lymphocytes % 16.2 D Monocytes % 5.9 Eosinophils % 1.8 D Basophils % 0.4 Nucleated RBC % 0 Sodium 138 Potassium 3.8 Chloride 96 L Carbon Dioxide 33 H Anion Gap 9 BUN 36.4 H Creatinine 1.6 H Est GFR (CKD-EPI)AfAm 54.61 Est GFR (CKD-EPI)NonAf 47.12 POC Glucometer Random Glucose 197 H Calcium 10.0 Magnesium 2.4 Total Bilirubin 0.6 AST 34 ALT 90 H Alkaline Phosphatase 160 H Total Protein 6.9 Albumin 3.2 L Urine Color Urine Appearance Urine pH Ur Specific [place] Urine Protein Urine Glucose (UA) Urine Ketones Urine Blood Urine Nitrite Urine Bilirubin Urine Urobilinogen Ur Leukocyte Esterase HOSPITAL COURSE: Date of Admission:10/30/18 Date of Discharge: 11/04/18 Problem List - Problems (1) CHF exacerbation Assessment/Plan: elevated BNP, greater than previous admission. Likely in the setting of medication non compliance and uncontrolled hypertension. No decrease in weights, but clinically improved. tolerating room air and ambulates without shortness of breath. c/w lasix, spironolactone, coreq, procardia and hydralazine. (2) Diabetes Assessment/Plan: BGM remains in mid to high 400s on admission . poor compliance with diet, found patient at vending machine several times during day and cookies and sandwiches at bedside ac/Qhs with novolog sliding scale-increasing scale increased levemir to 40u bid yard coordinator for nutritional counseling With increased levemir doses BGM in 160s now and januvia with be started on discharged (3) Hypertensive urgency Assessment/Plan: BP labile initially increased procardia to 90 mg and BP better controlled LE edema improved and diuretics retarted Code(s): I16.0 - HYPERTENSIVE URGENCY (4) Nydvu-of-bterxxh kidney injury Assessment/Plan: Cr 1.8 peaked. Backed to baseline (5) Cerebrovascular disease Assessment/Plan: h/p CVA no residual deficits Code(s): I67.9 - CEREBROVASCULAR DISEASE, UNSPECIFIED (6) Cocaine abuse Assessment/Plan: reports no current use (7) Nicotine abuse (8) Shortness of breath Assessment/Plan: much improved, no dyspnea off supplemental O2 (9) COPD (chronic obstructive pulmonary disease) Assessment/Plan: on systemic steriods. IV initially and then transitioned to oral Will continue a taper over next 2 weeks Patient is medically stable for discharge to home with follow up with PCP in 1-2 weeks Minutes to complete discharge: 45 Discharge Summary Reason For Visit: HYPERTENSIVE URGENCY,ACUTE ON CHRONIC CHF, SOB Current Active Problems CHF exacerbation (Acute) COPD (chronic obstructive pulmonary disease) (Acute) DVT prophylaxis (Acute) Diabetes (Acute) Diabetic nephropathy associated with type 2 diabetes mellitus (Acute) Hypertensive urgency (Acute) Prophylactic measure (Acute) Hospital Course: Problem List - Problems (1) CHF exacerbation Assessment/Plan: elevated BNP, greater than previous admission. Likely in the setting of medication non compliance and uncontrolled hypertension. No decrease in weights, but clinically improved. tolerating room air and ambulates without shortness of breath. c/w lasix, spironolactone, coreq, procardia and hydralazine. (2) Diabetes Assessment/Plan: BGM remains in mid to high 400s on admission . poor compliance with diet, found patient at vending machine several times during day and cookies and sandwiches at bedside ac/Qhs with novolog sliding scale-increasing scale increased levemir to 40u bid yard coordinator for nutritional counseling With increased levemir doses BGM in 160s now and januvia with be started on discharged (3) Hypertensive urgency Assessment/Plan: BP labile initially increased procardia to 90 mg and BP better controlled LE edema improved and diuretics retarted Code(s): I16.0 - HYPERTENSIVE URGENCY (4) Fymdt-se-upjdgyf kidney injury Assessment/Plan: Cr 1.8 peaked. Backed to baseline (5) Cerebrovascular disease Assessment/Plan: h/p CVA no residual deficits Code(s): I67.9 - CEREBROVASCULAR DISEASE, UNSPECIFIED (6) Cocaine abuse Assessment/Plan: reports no current use (7) Nicotine abuse (8) Shortness of breath Assessment/Plan: much improved, no dyspnea off supplemental O2 (9) COPD (chronic obstructive pulmonary disease) Assessment/Plan: on systemic steriods. IV initially and then transitioned to oral Will continue a taper over next 2 weeks Patient is medically stable for discharge to home with follow up with PCP in 1-2 weeks Condition: Improved - Instructions Diet, Activity, Other Instructions: PREDNISONE TAPER 11/04 40 mg (4- 10mg tablets) 11/05 40 mg (4- 10mg tablets) 14 40 mg (4- 10mg tablets) 15 30 mg (3- 10mg tablets) 16 30 mg (3- 10mg tablets) 11/09 30 mg (3- 10mg tablets) 11/10 20 mg (2- 10mg tablets) 11/11 20 mg (2- 10mg tablets) 11/12 20 mg (2- 10mg tablets) 11/13 10 mg (1- 10mg tablets) 11/14 10 mg (1- 10mg tablets) 11/15 10 mg (1- 10mg tablets) 11/16 5 mg (1/2- 10mg tablets) 11/17 NO PILLS Disposition: HOME - Home Medications Comprehensive Discharge Medication List: Ambulatory Orders Furosemide [Lasix -] 40 mg PO DAILY #30 tablet 07/02/18 Isosorbide Mononitrate [Imdur -] 60 mg PO DAILY #30 tab.sr.24h 07/02/18 Hydralazine HCl 100 mg PO TID 08/09/18 Atorvastatin Ca [Lipitor] 80 mg PO HS #30 tablet 08/17/18 Carvedilol [Coreg -] 25 mg PO BID #60 tablet 08/17/18 Spironolactone [Aldactone -] 50 mg PO DAILY #30 tablet 08/17/18 Aspirin Coated [Ecotrin -] 3.25 mg PO DAILY 10/19/18 Clopidogrel Bisulfate [Plavix] 75 mg PO DAILY 10/19/18 Cyclobenzaprine HCl 5 mg PO Q8H PRN #6 tablet 10/20/18 Methyl Salicylate/Menthol Oint [Analgesic [place] -] 1 applic TP DAILY PRN #1 applic 10/20/18 Albuterol 0.083% Nebulizer Jane [Ventolin 0.083% Nebulizer Soln -] 1 amp NEB Q4H #10 amp 11/01/18 Furosemide [Lasix] 40 mg PO DAILY #90 tablet 11/01/18 Miscellaneous Medical Supply [Glucometer Device] 1 each .ROUTE ASDIR #1 kit 01/11 [facility]isc[facility] [employer] [Glucometer Test Strips #100] 1 each .ROUTE ASDIR # 1 box 11/03/18 Aspirin Coated [Ecotrin -] 81 mg PO DAILY tablet.ec 11/04/18 Furosemide [Lasix -] 40 mg PO DAILY tablet 11/04/18 Insulin (Levemir) [Levemir Vial] 30 units SQ 0700,2200 units 11/04/18 Insulin Sliding Scale [Novolog Vial Sliding Scale -] 1 vial SQ ACHS units 11/04 Nifedipine ER [Procardia XL -] 90 mg PO DAILY tab.er.24 11/04/18 Sitagliptin Phosphate [Januvia -] 25 mg PO DAILY@0700 #30 tab 11/04/18 predniSONE [Deltasone -] 10 mg PO DAILY #32 tablet 11/04/18 Problem List - Problems (1) CHF exacerbation Code(s): I50.9 - HEART FAILURE, UNSPECIFIED Qualifiers: Heart failure type: unspecified Qualified Code(s): I50.9 - Heart failure, unspecified (2) Diabetes Code(s): E11.9 - TYPE 2 DIABETES MELLITUS WITHOUT COMPLICATIONS Qualifiers: Diabetes mellitus type: type 2 (3) Hypertensive urgency Code(s): I16.0 - HYPERTENSIVE URGENCY (4) Xcgnz-kh-[id number] kidney injury Code(s): N17.9 - ACUTE KIDNEY FAILURE, UNSPECIFIED; N18.9 - CHRONIC KIDNEY DISEASE, UNSPECIFIED Qualifiers: Chronic kidney disease stage: stage 3 (moderate) (5) Cerebrovascular disease Code(s): I67.9 - CEREBROVASCULAR DISEASE, UNSPECIFIED (6) Cocaine abuse Code(s): F14.10 - COCAINE ABUSE, UNCOMPLICATED (7) Nicotine abuse Code(s): Z72.0 - TOBACCO USE (8) Shortness of breath Code(s): R06.02 - SHORTNESS OF BREATH (9) COPD (chronic obstructive pulmonary disease) Code(s): J44.9 - CHRONIC OBSTRUCTIVE PULMONARY DISEASE, UNSPECIFIED Qualifiers: COPD type: unspecified COPD Qualified Code(s): J44.9 - Chronic obstructive pulmonary disease, unspecified This patient is new to me today: Yes Date on this admission: 11/04/18 Emergency Visit: No Critical Care patient: No - Discharge Referral Referred to [facility] Med [facility] No
--- NOTE | 2018-11-04 13:23 | PN ---
Progress Note (short form) - Note Progress Note: PULMONARY Denies shortness of breath, cough or wheezing. Vital Signs Period Temp Pulse Resp BP Sys/Caal Pulse Ox Last 24 Hr 97.6 F-98.8 F 62-102 18-18 136-173/84-106 95-96 Gen: NAD at rest Heart: RRR Lung: decreased breath sounds at the bases Abd: soft, nontender Ext: no edema CBC, BMP 11/04/18 11:30 11/04/18 11:30 Active Medications Albuterol/Ipratropium (Duoneb -) 1 amp NEB RQ4H [facility] Last Admin: 11/04/18 12:08 Dose: Not Given Aspirin (Ecotrin -) 81 mg PO DAILY [facility] Last Admin: 11/04/18 09:09 Dose: 81 mg Atorvastatin Calcium (Lipitor -) 80 mg PO HS [facility] Last Admin: 11/03/18 23:37 Dose: 80 mg Carvedilol (Coreg -) 25 mg PO BID [facility] Last Admin: 11/04/18 09:08 Dose: 25 mg Clopidogrel Bisulfate (Plavix -) 75 mg PO DAILY [facility] Last Admin: 11/04/18 09:08 Dose: 75 mg Cyclobenzaprine HCl (Cyclobenzaprine Hcl) 5 mg PO Q8H PRN PRN Reason: BACK PAIN Furosemide (Lasix -) 40 mg PO DAILY [facility] Hydralazine HCl (Apresoline -) 100 mg PO TID [facility] Last Admin: 11/04/18 05:43 Dose: 100 mg Hydralazine HCl (Apresoline Injection -) 10 mg IVPUSH Q6H PRN PRN Reason: HYPERTENSION Last Admin: 11/03/18 02:40 Dose: 10 mg Insulin Aspart (Novolog Vial Sliding Scale -) 1 vial SQ Q4HPO [facility]; Protocol Last Admin: 11/04/18 10:40 Dose: 5 units Insulin Detemir (Levemir Vial) 40 units SQ BID@0700,2200 [facility] Last Admin: 11/04/18 07:18 Dose: 40 units Isosorbide Mononitrate (Imdur -) 60 mg PO DAILY [facility] Last Admin: 11/04/18 09:08 Dose: 60 mg Nifedipine (Procardia Xl -) 90 mg PO DAILY [facility] Last Admin: 11/04/18 09:08 Dose: 90 mg Prednisone (Deltasone -) 40 mg PO DAILY [facility] Stop: 11/07/18 10:01 Sitagliptin Phosphate (Januvia -) 25 mg PO DAILY@0700 [facility] Spironolactone (Aldactone -) 50 mg PO DAILY [facility] Last Admin: 11/04/18 09:08 Dose: 50 mg A/P Acute on Chronic Diastolic Heart Failure Hypertensive Urgency resolved CAD Acute COPD Exacerbation Acute on Chronic Renal Failure Cocaine Abuse HTN DM Hypercholesterolemia h/o TIA - complete prednisone course - inhaled bronchodilators - continue PO lasix, aldactone - monitor urine output, creatinine - O2 as needed - DVT prophylaxis - d/c planning in progress
[2018-11-05] MEDS ORDERED: FUROSEMIDE 40 MG TABLET (FP) PO SCH (10:00)
[2018-11-05] MEDS ORDERED: predniSONE 20 MG TABLET (UD) PO SCH (10:00)
== END 2018-11-04 15:12 | disposition home or self-care (01) | DRG 194 ==
LOC: JER 06:58 → JERBED 09:52 → J4S 23:10
PROVIDERS: ADMIT Internal Medicine; ATTEND Nurse Practitioner Acute Care
PROC: 3E0F7GC Introduction of Other Therapeutic Substance into Respiratory Tract, Via Natural or Artificial Opening (ICD-10-PCS; principal; 2018-10-30)
DX: I13.0 Hypertensive heart and chronic kidney disease with heart failure and stage 1 through stage 4 chronic kidney disease, or unspecified chronic kidney disease (principal); I16.0 Hypertensive urgency; N17.9 Acute kidney failure, unspecified; J44.1 Chronic obstructive pulmonary disease with (acute) exacerbation; I50.33 Acute on chronic diastolic (congestive) heart failure; E87.1 Hypo-osmolality and hyponatremia; I42.8 Other cardiomyopathies; N18.3 Chronic kidney disease, stage 3 (moderate); Z86.73 Personal history of transient ischemic attack (TIA), and cerebral infarction without residual deficits; I25.10 Atherosclerotic heart disease of native coronary artery without angina pectoris; I25.2 Old myocardial infarction; Z95.5 Presence of coronary angioplasty implant and graft; E78.5 Hyperlipidemia, unspecified; F17.210 Nicotine dependence, cigarettes, uncomplicated; F14.10 Cocaine abuse, uncomplicated; Z79.84 Long term (current) use of oral hypoglycemic drugs; Z91.14 Patient's other noncompliance with medication regimen; K21.9 Gastro-esophageal reflux disease without esophagitis; D72.829 Elevated white blood cell count, unspecified
CPT/HCPCS: 36415; 71045-TC-FY; 71046-TC-FY; 71250-TC; 80053; 81003; 82550; 82962; 83036; 83735; 83880; 84484; 85025; 93005; 93010; 94640; 99284-25

== ENCOUNTER 2018-12-01 18:38 | Inpatient (IN) | payer OTHER ==
[2018-12-01] MEDS ORDERED: morphine CARPU-JECT 4 MG/1 ML DISP.SYRIN IVPUSH ONE (20:10)
[2018-12-01] MEDS ORDERED: FUROSEMIDE 40 MG/4 ML INJECTABLE VIAL IVPUSH ONE (20:16)
[2018-12-01] MEDS ORDERED: NITROGLYCERIN 2% OINTMENT - 1GM PACKET TD ONE ×2 (20:17→20:23)
[2018-12-01] MEDS ORDERED: morphine SULFATE 4 MG/ML VIAL ONE (20:22)
[2018-12-01] MEDS ORDERED: FUROSEMIDE 40 MG/4 ML INJECTABLE VIAL ONE (20:23)
[2018-12-01 20:24] LABS: BASO % 0.9 % (0-2.0); EOS % 0.9 % (0-4.5); HEMATOCRIT 34.1 % (35.4-49); HEMOGLOBIN 10.8 GM/dL (11.7-16.9); MCH 30.8 pg (25.7-33.7); MCHC 31.6 g/dl (32.0-35.9); MEAN CELL VOLUME 97.5 fl (80-96); MEAN PLT VOLUME 7.9 fl (7.5-11.1); MONO % 6.3 % (3.8-10.2); NEUT % 76.9 % (42.8-82.8); PLATELET COUNT 384 K/MM3 (134-434); RDW 17.3 % (11.9-15.9); WHITE BLOOD COUNT 11.3 K/mm3 (4.0-10.0)
[2018-12-01 20:30] LABS: INR 1.22 (0.83-1.09); PROTHROMBIN TIME (PATIENT) 14.4 SEC (9.7-13.0)
--- NOTE | 2018-12-01 20:44 | PDOC ---
Documentation entered by Lauren Craig SCRIBE, acting as scribe for Pema Wright DO. Pema Wright DO: This documentation has been prepared by the Kiara devi Adrianna, SCRIBE, under my direction and personally reviewed by me in its entirety. I confirm that the documentation accurately reflects all work, treatment, procedures, and medical decision making performed by me. Attending Attestation - Resident Resident Name: Javan Fowler - ED Attending Attestation I have performed the following: I have examined & evaluated the patient, The case was reviewed & discussed with the resident, I agree w/resident's findings & plan - HPI HPI: The patient is a 58 year old male, with a significant PMH of HTN, HLD, DM, diastolic CHF, HFrEF, CAD (s/p [place] x3- no PCI), Rt carotid stenosis s/p CEA (2018), COPD/asthma Allergies: IRMA inhibitors Surgical History: Carotid endarterectomy, left ankle ORIF Social History: Current smoker (2 cigarettes per week). Cocaine use. PCP: Dr. Esquivel - Physicial Exam PE: Agree with resident exam - Medical Decision Making 12/01/18 20:41 58-year-old male with history of polysubstance abuse complaining of chest pain and abdominal distention Patient's blood pressure on arrival markedly elevated Nitropaste, Lasix 40 mg and morphine Plan for admission to medical service, will consider ICU if antihypertensive drip necessary
[2018-12-01 20:54] LABS: ALBUMIN 2.9 g/dl (3.4-5.0); BILIRUBIN,TOTAL 0.7 mg/dL (0.2-1); CALCIUM 8.5 mg/dL (8.5-10.1); CREATININE 1.6 mg/dL (0.55-1.3); TOT PROT 6.8 g/dl (6.4-8.2)
[2018-12-01 20:56] LABS: POTASSIUM 6.5 mmol/L (3.5-5.1)
[2018-12-01 22:04] LABS: N-TERMINAL BNP 5649.8 pg/ml (5-125)
--- NOTE | 2018-12-01 22:22 | PDOC ---
History of Present Illness - General Chief Complaint: Chest Pain Stated Complaint: CHEST PAINS Time Seen by Provider: 12/01/18 19:25 History Source: Patient Exam Limitations: No Limitations - History of Present Illness Initial Comments: 12/01/18 22:22 58 yo male pmh of HTN, HLD, DM, 3 [place] with stents, cocaine use, Diastolic dysfunction, COPD/asthma presents to the ED after 3 hours of non exertional CP. Pt states the pain started while resting at home, described as pressure like with radiation down left arm. Pt states he ran out of all his medications including BP and lasix 2 days ago and notes worsening SOB and bilateral lower limb swelling over the past 2 days. Pt also admits to epigastric pain. Denies F/ C/N/V, changes in bowel or bladder habits or weakness on 1 side of his body. Past History - Past Medical History Allergies/Adverse Reactions: Allergies Allergy/AdvReac Type Severity Reaction Status Date / Time IRMA Inhibitors Allergy Verified 12/01/18 18:50 Home Medications: Ambulatory Orders Isosorbide Mononitrate [Imdur -] 60 mg PO DAILY #30 tab.sr.24h 07/02/18 Hydralazine HCl 100 mg PO TID 08/09/18 Atorvastatin Ca [Lipitor] 80 mg PO HS #30 tablet 08/17/18 Carvedilol [Coreg -] 25 mg PO BID #60 tablet 08/17/18 Spironolactone [Aldactone -] 50 mg PO DAILY #30 tablet 08/17/18 Clopidogrel Bisulfate [Plavix] 75 mg PO DAILY 10/19/18 Cyclobenzaprine HCl 5 mg PO Q8H PRN #6 tablet 10/20/18 Methyl Salicylate/Menthol Oint [Analgesic [place] -] 1 applic TP DAILY PRN #1 applic 10/20/18 Albuterol 0.083% Nebulizer Jane [Ventolin 0.083% Nebulizer Soln -] 1 amp NEB Q4H #10 amp 11/01/18 Miscellaneous Medical Supply [Glucometer Device] 1 each .ROUTE ASDIR #1 kit 01/11 Miscellaneous Medical Supply [Glucometer Test Strips #100] 1 each .ROUTE ASDIR # 1 box 11/03/18 Aspirin Coated [Ecotrin -] 81 mg PO DAILY tablet.ec 11/04/18 Furosemide [Lasix -] 40 mg PO DAILY tablet 11/04/18 Insulin (Levemir) [Levemir Vial] 30 units SQ 0700,2200 units 11/04/18 Insulin Sliding Scale [Novolog Vial Sliding Scale -] 1 vial SQ ACHS units 11/04 Nifedipine ER [Procardia XL -] 90 mg PO DAILY tab.er.24 11/04/18 Sitagliptin Phosphate [Januvia -] 25 mg PO DAILY@0700 #30 tab 11/04/18 Anemia: No Asthma: Yes Cancer: No Cardiac Disorders: Yes (ACS, CAD - s/p PCI/Stents, [place] X3, non-ischemic Cardiomyopathy,) CVA: Yes (2019) COPD: Yes CHF: Yes (Diastolic CHF) DVT: No Dementia: No Diabetes: Yes GI Disorders: No Disorders: No HTN: Yes Hypercholesterolemia: Yes Kidney Stones: No Liver Disease: No Seizures: No Thyroid Disease: No - Surgical History Abdominal Surgery: No Appendectomy: No Cardiac Surgery: Yes (Carotid endareterectomy) Cholecystectomy: No Lung Surgery: No Neurologic Surgery: No Orthopedic Surgery: Yes (Old injury fractured left ankle x2) - Reproductive History Testicular Surgery: No - Immunization History Immunization Up to Date: Yes - Psycho Social/Smoking Cessation Hx Smoking Status: No Smoking History: Current every day smoker Have you smoked in the past 12 months: No Number of Cigarettes Smoked Daily: 2 If you are a former smoker, when did you quit?: smokes 2 x per week Information on smoking cessation initiated: No 'Breaking Loose' booklet given: 04/13/18 Hx Alcohol Use: Yes Drug/Substance Use Hx: No Substance Use Type: Cocaine Hx Substance Use Treatment: No Review of Systems - Review of Systems Constitutional: No: Chills, Fever HEENTM: No: Blurred Vision Respiratory: Yes: Shortness of Breath Cardiac (ROS): Yes: Chest Pain, Edema ABD/GI: No: Constipated, Diarrhea, Nausea, Vomiting : No: Burning, Dysuria, Frequency, Flank Pain Musculoskeletal: No: Back Pain Integumentary: No: Change in Color Neurological: No: Headache, Numbness, Paresthesia, Weakness, Unsteady Gait, Ataxia, Dizziness *Physical Exam - Vital Signs Last Vital Signs Temp Pulse Resp BP Pulse Ox 98.9 F 94 H 18 144/62 98 12/01/18 19:04 12/01/18 19:04 12/01/18 19:04 12/01/18 19:04 12/01/18 21:03 - Physical Exam General Appearance: Yes: Nourished, Appropriately Dressed, Apparent Distress HEENT: positive: EOMI, TATIANNA Neck: positive: Supple. negative: Carotid bruit Respiratory/Chest: positive: Lungs Clear, Normal Breath Sounds. negative: Respiratory Distress Cardiovascular: positive: Regular Rhythm, S1, S2, Edema (bilateral 3+ pitting), Tachycardia. negative: JVD, Murmur Vascular Pulses: Dorsalis-Pedis (R): 3+, Doralis-Pedis (L): 3+ Gastrointestinal/Abdominal: positive: Flat, Soft, Protuberent, Tenderness ( epigastric). negative: Distended, Guarding, Rebound Musculoskeletal: negative: CVA Tenderness Extremity: positive: Normal Capillary Refill, Normal Inspection, Normal Range of Motion Integumentary: positive: Normal Color, Dry, Warm Neurologic: positive: Fully Oriented, Alert, Normal Mood/Affect, Normal Response , Motor Strength 5/5. negative: Confused, Disoriented ED Treatment Course - LABORATORY CBC & Chemistry Diagram: 12/07/18 05:40 12/07/18 05:40 - ADDITIONAL ORDERS Additional order review: Laboratory Results 12/01/18 12/01/18 12/01/18 20:10 20:10 20:10 WBC 11.3 H RBC 3.50 L Hgb 10.8 L Hct 34.1 L MCV 97.5 H MCH 30.8 MCHC 31.6 L RDW 17.3 H Plt Count 384 D MPV 7.9 Absolute Neuts (auto) 8.7 H Neutrophils % 76.9 Lymphocytes % 15.0 Monocytes % 6.3 Eosinophils % 0.9 Basophils % 0.9 Nucleated RBC % 0 PT with INR 14.40 H INR 1.22 H Sodium 135 L Potassium 6.5 H* Chloride 106 Carbon Dioxide 24 Anion Gap 5 L BUN 22.0 H Creatinine 1.6 H Est GFR (CKD-EPI)AfAm 54.61 Est GFR (CKD-EPI)NonAf 47.12 Random Glucose 274 H Calcium 8.5 Total Bilirubin 0.7 AST 114 H ALT 137 H Alkaline Phosphatase 249 H Creatine Kinase Creatine Kinase Index CK-MB (CK-2) Troponin I B-Natriuretic Peptide 5649.8 H Total Protein 6.8 Albumin 2.9 L 12/01/18 20:10 WBC RBC Hgb Hct MCV MCH MCHC RDW Plt Count MPV Absolute Neuts (auto) Neutrophils % Lymphocytes % Monocytes % Eosinophils % Basophils % Nucleated RBC % PT with INR INR Sodium Potassium Chloride Carbon Dioxide Anion Gap BUN Creatinine Est GFR (CKD-EPI)AfAm Est GFR (CKD-EPI)NonAf Random Glucose Calcium Total Bilirubin AST ALT Alkaline Phosphatase Creatine Kinase 160 Creatine Kinase Index 1.1 CK-MB (CK-2) 1.8 Troponin I 0.07 H B-Natriuretic Peptide Total Protein Albumin 12/01/18 20:10 RBC 3.50 L MCV 97.5 H MCHC 31.6 L RDW 17.3 H MPV 7.9 Neutrophils % 76.9 Lymphocytes % 15.0 Monocytes % 6.3 Eosinophils % 0.9 Basophils % 0.9 - RADIOLOGY Radiology Studies Ordered: Category Date Time Status ABDOMEN & PELVIS CT WITH CONTR [CT] Stat CT Scan 12/01/18 20:11 Taken CHEST CTA [CT] Stat CT Scan 12/01/18 20:[address] WITHOUT CONTRAST [CT] Stat CT Scan 12/01/18 20:45 Completed CHEST X-RAY PORTABLE* [RAD] Stat Radiology 12/01/18 19:56 Ordered Medical Decision Making - Medical Decision Making 12/01/18 22:31 58 yo male pmh of HTN, HLD, DM, 3 [place] with stents, cocaine use, Diastolic dysfunction, COPD/asthma presents to the ED after 3 hours of non exertional CP. Pt states the pain started while resting at home, described as pressure like with radiation down left arm. Pt states he ran out of all his medications including BP and lasix 2 days ago and notes worsening SOB and bilateral lower limb swelling over the past 2 days. Pt also admits to epigastric pain. Denies F/ C/N/V, changes in bowel or bladder habits or weakness on 1 side of his body. vitals show elevated BP, basline is elevated however, pt admits when on medication, averages in the 160s pt has epigastric pain and a protuberant abdomen, will do Chest and A/P CTA to r /o dissection also head CT for r/o bleed will treat with nitro paste, morphine and lasix for overload 40 mg lasix IV given BP still elvated in the 190s, will try Ativan 2 mg IV, pt admits to drinking and Cocaine abuse Pt symptomatically improved, more alert and ambulates without difficulty Labs slightly hemolyzed, K not accurate will repeat before treating due to likely false number will reassess and treat likely with cardene drip if it does not improve pt will be s/o to night team for admission and further care Discharge - Discharge Information Problems reviewed: Yes Clinical Impression/Diagnosis: Hypertensive emergency CHF (congestive heart failure) Qualifiers: Heart failure type: unspecified Heart failure chronicity: acute on chronic Qualified Code(s): I50.9 - Heart failure, unspecified - Follow up/Referral - Patient Discharge Instructions - Post Discharge Activity
[2018-12-01] MEDS ORDERED: LORazepam 2 MG/ML SDV VIAL ONE (22:42)
--- NOTE | 2018-12-01 23:22 | PDOC ---
*Physical Exam - Vital Signs Last Vital Signs Temp Pulse Resp BP Pulse Ox 98.9 F 93 H 27 H 208/131 H 98 12/01/18 19:04 12/01/18 22:48 12/01/18 20:30 12/01/18 22:48 12/01/18 21:03 ED Treatment Course - LABORATORY CBC & Chemistry Diagram: 12/01/18 20:10 12/01/18 22:52 - ADDITIONAL ORDERS Additional order review: Laboratory Results 12/01/18 12/01/18 12/01/18 20:10 20:10 20:10 PT with INR 14.40 H INR 1.22 H Sodium 135 L Potassium 6.5 H* Chloride 106 Carbon Dioxide 24 Anion Gap 5 L BUN 22.0 H Creatinine 1.6 H Est GFR (CKD-EPI)AfAm 54.61 Est GFR (CKD-EPI)NonAf 47.12 Random Glucose 274 H Calcium 8.5 Total Bilirubin 0.7 AST 114 H ALT 137 H Alkaline Phosphatase 249 H Creatine Kinase 160 Creatine Kinase Index 1.1 CK-MB (CK-2) 1.8 Troponin I 0.07 H B-Natriuretic Peptide 5649.8 H Total Protein 6.8 Albumin 2.9 L 12/01/18 20:10 RBC 3.50 L MCV 97.5 H MCHC 31.6 L RDW 17.3 H MPV 7.9 Neutrophils % 76.9 Lymphocytes % 15.0 Monocytes % 6.3 Eosinophils % 0.9 Basophils % 0.9 - Medications Given in the ED: ED Medications Discontinued Medications Generic Name Dose Route Start Last Admin Trade Name Freq PRN Reason Stop Dose Admin Furosemide 40 mg 12/01/18 20:16 12/01/18 20:40 Lasix Injection - IVPUSH 12/01/18 20:17 40 mg ONCE ONE Administration Lorazepam 2 mg 12/01/18 22:36 12/01/18 22:47 Ativan Injection - IVPUSH 12/01/18 22:37 2 mg ONCE ONE Administration Morphine Sulfate 4 mg 12/01/18 20:10 12/01/18 20:40 Morphine Injection - IVPUSH 12/01/18 20:11 4 mg ONCE ONE Administration Nitroglycerin 1 inch 12/01/18 20:17 12/01/18 20:40 Nitro-Bid 2% Paste - TD 12/01/18 20:18 1 inch ONCE ONE Administration Medical Decision Making - Medical Decision Making 12/01/18 23:22 WBC 11.7, Cr 1.4 (baseline), ALT 125, ALP 243. trop 0.07, BNP 5600 EKG unchanged CXR cardiomegaly, increased braulio basilar infiltrates CTA shows no dissection, stable 4.3cm infrarenal aorta aneurysm, 0.7x0.2cm non obstructing R renal calculus, 2mm RUL lung nodule, dilated main pulmonary artery , Signed out from Dr Fowler --- 58 yo male pmh of HTN, HLD, DM, 3 [place] with stents, cocaine use, Diastolic dysfunction, COPD/asthma presents to the ED after 3 hours of non exertional chest pain, SOB, and HTN d/t medication non compliance and substance abuse (EtOH , cocaine) BP elevated to 200/130, treated with nitro paste, morphine, 40 lasix for overload, 2 ativan, cardene drip without improvement. Also has CHF exacerbation w BLE edema, elevated BNP, given 40 lasix. Trop slightly elevated. Pt has epigastric pain and a protuberant abdomen, chest/AB/pelvis CTA did not show dissection Admit to ICU for refractory hypertensive emergency, CHF exacerbation Discharge - Discharge Information Problems reviewed: Yes Clinical Impression/Diagnosis: Hypertensive emergency CHF (congestive heart failure) Qualifiers: Heart failure type: unspecified Heart failure chronicity: acute on chronic Qualified Code(s): I50.9 - Heart failure, unspecified - Follow up/Referral Referrals: Lenny Hernandez MD [Primary Care Provider] - - Patient Discharge Instructions - Post Discharge Activity
[2018-12-01 23:29] LABS: BILIRUBIN,TOTAL 0.8 mg/dL (0.2-1); BLOOD UREA NITROGEN 21.6 mg/dL (7-18); CALCIUM 8.6 mg/dL (8.5-10.1); CREATININE 1.4 mg/dL (0.55-1.3); POTASSIUM 3.7 mmol/L (3.5-5.1); TOT PROT 6.3 g/dl (6.4-8.2)
[2018-12-01] MEDS ORDERED: NICARDIPINE 25 MG in DEXTROSE 5%-WATER - 240 ML IVPB SCH (23:30)
[2018-12-01] MEDS ORDERED: niCARdipine HCL 25 MG/10 ML AMPUL IVPB ONE (23:34)
--- NOTE | 2018-12-02 00:29 | CONSULT ---
Consultation: REQUESTING PROVIDER: ED team CONSULT REQUEST: We have been asked to medically evaluate this patient for ( Hypertensive emergency). HISTORY OF PRESENT ILLNESS: 58 yo male pmh of HTN, HLD, DM, 3 [place] with stents, cocaine use, Diastolic dysfunction, COPD/asthma presents to the ED after 3 hours of non exertional CP. Pt states the pain started while resting at home, described as pressure like with radiation down left arm. Pt states he ran out of all his medications including BP and lasix 2 days ago and notes worsening SOB and bilateral lower limb swelling over the past 2 days. Pt also admits to epigastric pain. Denies F/ C/N/V, changes in bowel or bladder habits or weakness on 1 side of his body. REVIEW OF SYSTEMS: unable to obtain as pt is very lethargic 2/2 Ativan given in ED PHYSICAL EXAMINATION Vital Signs - 24 hr 12/01/18 12/01/18 12/01/18 18:47 19:04 20:30 Temperature 97.7 F 98.9 F Pulse Rate 108 H Pulse Rate [ 94 H 83 Right Radial] Respiratory 28 H 18 27 H Rate Blood Pressure 205/128 H Blood Pressure 144/62 195/133 H [Right Arm] O2 Sat by Pulse 95 96 98 Oximetry (%) 12/01/18 12/01/18 12/01/18 21:03 22:48 23:46 Temperature Pulse Rate 101 H Pulse Rate [ 93 H Right Radial] Respiratory Rate Blood Pressure 204/130 H Blood Pressure 208/131 H [Right Arm] O2 Sat by Pulse 98 Oximetry (%) 12/02/18 12/02/18 00:07 00:15 Temperature Pulse Rate Pulse Rate [ 101 H Right Radial] Respiratory 22 H Rate Blood Pressure Blood Pressure 204/130 H 190/114 H [Right Arm] O2 Sat by Pulse 96 Oximetry (%) GENERAL: lethargic follow commands , HEAD: Normal with no signs of trauma. EYES: Pupils equal, round and reactive to light, extraocular movements intact, sclera anicteric, NECK: supple LUNGS: decrease breath sound at the bases HEART: Regular rate and rhythm, normal S1 and S2 without murmur, rub or gallop. ABDOMEN:obese Soft, nontender, not distended, normoactive bowel sounds, NEUROLOGICAL: Cranial nerves II-XII intact. slurred speech. right upper arm weakness 3/5 proximal , 4/5 distal , right lower ext weakness 3-4/5 proximal , 5 /5 distal , left arm and leg 5/5 proximal and distal. PSYCHIATRIC: lethargic drowsy SKIN: Warm, dry, Laboratory Results - last 24 hr 12/01/18 12/01/18 12/01/18 20:10 20:10 20:10 WBC 11.3 H RBC 3.50 L Hgb 10.8 L Hct 34.1 L MCV 97.5 H MCH 30.8 MCHC 31.6 L RDW 17.3 H Plt Count 384 D MPV 7.9 Absolute Neuts (auto) 8.7 H Neutrophils % 76.9 Lymphocytes % 15.0 Monocytes % 6.3 Eosinophils % 0.9 Basophils % 0.9 Nucleated RBC % 0 PT with INR INR Sodium 135 L Potassium 6.5 H* Chloride 106 Carbon Dioxide 24 Anion Gap 5 L BUN 22.0 H Creatinine 1.6 H Est GFR (CKD-EPI)AfAm 54.61 Est GFR (CKD-EPI)NonAf 47.12 Random Glucose 274 H Calcium 8.5 Total Bilirubin 0.7 AST 114 H ALT 137 H Alkaline Phosphatase 249 H Creatine Kinase 160 Creatine Kinase Index 1.1 CK-MB (CK-2) 1.8 Troponin I 0.07 H B-Natriuretic Peptide 5649.8 H Total Protein 6.8 Albumin 2.9 L 12/01/18 12/01/18 20:10 22:52 WBC RBC Hgb Hct MCV MCH MCHC RDW Plt Count MPV Absolute Neuts (auto) Neutrophils % Lymphocytes % Monocytes % Eosinophils % Basophils % Nucleated RBC % PT with INR 14.40 H INR 1.22 H Sodium 139 Potassium 3.7 Chloride 108 H Carbon Dioxide 25 Anion Gap 6 L BUN 21.6 H Creatinine 1.4 H Est GFR (CKD-EPI)AfAm 64.18 Est GFR (CKD-EPI)NonAf 55.38 Random Glucose 254 H Calcium 8.6 Total Bilirubin 0.8 AST 37 ALT 125 H Alkaline Phosphatase 243 H Creatine Kinase Creatine Kinase Index CK-MB (CK-2) Troponin I B-Natriuretic Peptide Total Protein 6.3 L Albumin 3.0 L Active Medications Generic Name Dose Route Start Last Admin Trade Name Freq PRN Reason Stop Dose Admin Nicardipine HCl 25 mg/ 250 mls @ 25 mls/hr 12/01/18 23:30 12/01/18 23:46 Dextrose IVPB 2.5 mg/hr TITR PUSHPA 25 mls/hr Administration Protocol 2.5 MG/HR CBC, BMP 12/01/18 20:10 12/01/18 22:52 CT Chest, Abd/ pel:The thoracoabdominal aorta demonstrates no CT evidence of dissection. As on the prior CT exam of 04/16/2018 there is stable fusiform aneurysmal dilatation of the infrarenal aorta with a 4.3 cm diameter. Interval development of mild pericolonic soft tissue edema is noted adjacent to the mid and lower thirds of the descending colon as well as the upper third of the sigmoid colon. There is possible associated mild concentric wall thickening along the same region. Numerous diverticula are seen. On the basis of the current exam it is uncertain whether these findings are due to acute colitis ( ischemic versus inflammatory/infectious) or acute uncomplicated diverticulitis. Correlate clinically. Development of a very small amount of free fluid is seen within the abdomen and pelvis. 0.7 x 0.2 cm nonobstructing right renal calculus. In comparison to a chest CT exam of 11/02/2018 interval development of small bilateral pleural effusions is noted as well as mild increase concentric subcutaneous soft tissue stranding at the level of the abdomen and pelvis. Note is again made of minimal to mild bilateral pneumonitis groundglass interstitial opacity which may be mildly increased - ? due to vascular congestion. Increased nonspecific mediastinal lymphadenopathy is noted. Mild cardiomegaly. Note is again made of dilatation of the main pulmonary artery with a 4.3 cm diameter consistent with debris hypertension. A 2 mm right upper lobe nodule noted on the previous exam is difficult to visualize on the current exam. Correlate with 3-4 month follow-up CT Head CT: No CT evidence of intracranial hemorrhage. A chronic right posterior temporal cortical infarct is noted which was not present at the time of a CT exam of 08/06/2018. Note is again made of chronic right frontal and right parietal cortical infarcts. ASSESSMENT/PLAN: 58 yo male pmh of HTN, HLD, DM, 3 MA with stents, cocaine use, Diastolic dysfunction, COPD/asthma presents to the ED with chest pain , admitted to ICU with hypertensive emergency, and was found to have right arm weakness admitted to ICU for possible stroke and HTN emergency. #HTN emergency presented with BP 214/130 with left side chest pain radiated to the arm. # Right arm weakness R.O Stroke , will do CT head , MRI head , MRA,carotid doppler , echo cardiogram, neuro informed by primary team , NPO , permissive HTN , aspiration and seizure precautions. # Acute on chronic class I-II NYHA classification diastolic LV failure BMP 5000 #CAD history of MA, PCI/stent, angina pectoris # DM #Hypercholesterolemia # Cerebrovascular disease #TIA post CEA #COPD duoneb and albuterol as needed , #Acute on CKD base line CR 1.2 to 1.3 # Substance abuse (Cocaine) #History of angioedema related to ACEI # AAA stable PLAN: * started on necardipine drip by ED team , IV push of nicardipin and nitro IV push in ED * pt develop right arm weakness, will allow for permissive HTN till [place] ruled out will DC the drip for now as his BP 190/127 * cont ASA and Plavix and statin * hold IV Furosemide and Spironolactone 50 QD. * Monitor renal function and electrolytes * hold Carvedilol 25 BID in term of recent cocaine use, hold Procardia XL 90 Qd , and Hydrazine 100 TID hold Imdur 60 QD * Steroids and bronchodilators * maintain o2 sat > 90 % * DVT prophylaxis, GI prophylaxis * NPO except meds * Speech and swallow eval * neuro consult * cessation of cocain Dispo: We will continue to follow the patient. Thank you for this consultative opportunity. Visit type - Emergency Visit Emergency Visit: Yes ED Registration Date: 12/01/18 Care time: The patient presented to the Emergency Department on the above date and was hospitalized for further evaluation of their emergent condition. - New Patient This patient is new to me today: Yes Date on this admission: 12/01/18 - Critical Care Critical Care patient: Yes Total Critical Care Time (in minutes): 50 Critical Care Statement: The care of this patient involved high complexity decision making to prevent further life threatening deterioration of the patient 's condition and/or to evaluate & treat vital organ system(s) failure or risk of failure. ATTENDING PHYSICIAN STATEMENT I saw and evaluated the patient. I reviewed the resident's note and discussed the case with the resident. I agree with the resident's findings and plan as documented. SUBJECTIVE: OBJECTIVE: ASSESSMENT AND PLAN:
--- NOTE | 2018-12-02 00:57 | PN ---
Teaching Attending Note Name of Resident: Jack Matson ATTENDING PHYSICIAN STATEMENT I saw and evaluated the patient. I reviewed the resident's note and discussed the case with the resident. I agree with the resident's findings and plan as documented. SUBJECTIVE: The patient is a 58 year old male, with a significant PMH of Polysubstance abuse (alcohol and cocaine) HTN, HLD, DM, Diastolic CHF, HFrEF, CAD (s/p MS x3- no PCI), Carotid endarterectomy for right carotid stenosis (07/2018), Left ankle ORIF, Tobacco use and COPD/asthma presents to the ER after 3 hours of chest pain , SOB, abdominal distension and uncontrolled hypertension. Patient has history of nonadherence to medication regimen. Does not remember the last time he used cocaine. No significant FH of chronic illness. On arrival BP was noted to be 200 /130 and he was treated with nitropaste, morphine, IV lasix, ativan and started on cardene drip by the ER staff. OBJECTIVE: Somnolent but arousable Vital Signs Period Temp Pulse Resp BP Sys/Caal Pulse Ox Last 24 Hr 97.7 F-98.9 F 83-108 18-28 144-208/62-133 95-98 HEENT: No Jaundice, eye redness or discharge, PERRLA, EOMI. Normocephalic, atraumatic. External ears are normal and hearing is grossly intact. No nasal discharge. Neck: Supple, nontender. No palpable adenopathy or thyromegaly. No JVD Chest: Good effort. Clear to auscultation and percussion. Heart: Regular. No S3, rub or murmur Abdomen: Distended, soft, mild tenderness and no HSM. No rebound or guarding. Normal bowel sounds. Ext: Peripheral pulses intact. No leg edema. Skin: Warm and dry. No petechiae, rash or ecchymosis. Neuro: Somnolent but arousable. Oriented to person and place. CN 2-12 grossly intact. Sensation grossly intact in all four extremities; right hemiparesis. Gait cannot be tested for safety reasons. Psych: Appropriate mood and affect. Current Medications Generic Name Dose Route Start Last Admin Trade Name Freq PRN Reason Stop Dose Admin Nicardipine HCl 25 mg/ 250 mls @ 25 mls/hr 12/01/18 23:30 12/01/18 23:46 Dextrose IVPB 2.5 mg/hr TITR PUSHPA 25 mls/hr Administration Protocol 2.5 MG/HR Home Medications Medication Instructions Recorded Furosemide [Lasix -] 40 mg PO DAILY #30 tablet 07/02/18 Isosorbide Mononitrate [Imdur -] 60 mg PO DAILY #30 tab.sr.24h 07/02/18 Hydralazine HCl 100 mg PO TID 08/09/18 Atorvastatin Ca [Lipitor] 80 mg PO HS #30 tablet 08/17/18 Carvedilol [Coreg -] 25 mg PO BID #60 tablet 08/17/18 Spironolactone [Aldactone -] 50 mg PO DAILY #30 tablet 08/17/18 Aspirin Coated [Ecotrin -] 3.25 mg PO DAILY 10/19/18 Clopidogrel Bisulfate [Plavix] 75 mg PO DAILY 10/19/18 Cyclobenzaprine HCl 5 mg PO Q8H PRN #6 tablet 10/20/18 Methyl Salicylate/Menthol Oint 1 applic TP DAILY PRN #1 applic 10/20/18 [Analgesic [place] -] Albuterol 0.083% Nebulizer Jane 1 amp NEB Q4H #10 amp 11/01/18 [Ventolin 0.083% Nebulizer Soln -] Furosemide [Lasix] 40 mg PO DAILY #90 tablet 11/01/18 Miscellaneous Medical Supply 1 each .ROUTE ASDIR #1 kit 11/03/18 [Glucometer Device] Miscellaneous Medical Supply 1 each .ROUTE ASDIR #1 box 11/03/18 [Glucometer Test Strips #100] Aspirin Coated [Ecotrin -] 81 mg PO DAILY tablet.ec 11/04/18 Furosemide [Lasix -] 40 mg PO DAILY tablet 11/04/18 Insulin (Levemir) [Levemir Vial] 30 units SQ 0700,2200 units 11/04/18 Insulin Sliding Scale [Novolog 1 vial SQ ACHS units 11/04/18 Vial Sliding Scale -] Nifedipine ER [Procardia XL -] 90 mg PO DAILY tab.er.24 11/04/18 Sitagliptin Phosphate [Januvia -] 25 mg PO DAILY@0700 #30 tab 11/04/18 predniSONE [Deltasone -] 10 mg PO DAILY #32 tablet 11/04/18 Abnormal Lab Results 12/01/18 12/01/18 12/01/18 20:10 20:10 20:10 WBC 11.3 H RBC 3.50 L Hgb 10.8 L Hct 34.1 L MCV 97.5 H MCHC 31.6 L RDW 17.3 H Absolute Neuts (auto) 8.7 H PT with INR INR Sodium 135 L Potassium 6.5 H* Chloride Anion Gap 5 L BUN 22.0 H Creatinine 1.6 H Random Glucose 274 H AST 114 H ALT 137 H Alkaline Phosphatase 249 H Troponin I 0.07 H B-Natriuretic Peptide 5649.8 H Total Protein Albumin 2.9 L 12/01/18 12/01/18 20:10 22:52 WBC RBC Hgb Hct MCV MCHC RDW Absolute Neuts (auto) PT with INR 14.40 H INR 1.22 H Sodium Potassium Chloride 108 H Anion Gap 6 L BUN 21.6 H Creatinine 1.4 H Random Glucose 254 H AST ALT 125 H Alkaline Phosphatase 243 H Troponin I B-Natriuretic Peptide Total Protein 6.3 L Albumin 3.0 L ASSESSMENT AND PLAN: 1. Chest pain and Hypertensive emergency/Possible CVA/Possible colitis- It is possible that most of his clinical findings may be attributable to hypertensive emergency. Patient is outside the window for tPA and hypertensive encephalopathy may explain the stroke-like symptoms. Will get an MRI of brain, speech and swallow evaluation, carotid doppler, ECHO, PT consult, Neurology consult, optimize statin therapy and continue aspirin and plavix. Will do neurochecks and implement fall, aspiration and seizure precautions. Head CT showed chronic right frontal and parietal infarcts. CTA chest/abdomen/ pelvis shows no dissection, stable 4.3cm infrarenal aorta aneurysm, 0.7x0.2cm non obstructing R renal calculus, 2mm RUL lung nodule, and dilated main pulmonary artery. CXR showed cardiomegaly and increased bilateral basilar infiltrates. Got IV lasix and has been diuresing well. Leukocytosis may be due to recent steroid therapy but CT suggests possible infectious vs ischemic colitis/diverticulitis. Will get lactic acid, treat with levofloxacin and flagyl and consult GI/ID. Monitor closely for any signs of bowel ischemia. infection. Elevated LFTs may be due to CHF and/or uncontrolled hypertension. Will get hepatitis serology, RUQ sonogram and trend LFTs. Troponin is elevated but no changes of ischemia on EKG. EKG shows sinus tachycardia, PVCs and nonspecific t wave changes. Will rule out ACS with repeat troponin and EKG. UA is pending. Will practice permissive hypertension for now and restart suitable outpatient antihypertensive drugs when clinically appropriate. Revise regimen to ensure [id number] excellent BP control and counselor aid patient on the injurious effects of uncontrolled hypertension. Nonpharmacologic measures to control hypertension like weight loss, salt restriction and exercise discussed. Importance of adherence to treatment regimen and attainment of normotension emphasized. Will continue comprehensive care for all of patients comorbid conditions. 2. Hypoalbuminemia - Possibly due to combined effects of malnutrition and inflammation associated with comorbid chronic conditions. Will ensure adequate dietary protein intake and also consult sliver cutter. 3. Uncontrolled DM For now, we will hold the home diabetes drugs and implement sliding scale insulin regimen. Provide comprehensive diabetes care with patient teaching and counseling about the importance of adherence to prescribed diabetes regimen, euglycemia, eye care and foot care. 4. Tobacco Use Counseled on risks associated with tobacco use. We will provide patient all the necessary assistance to facilitate smoking cessation and prescribe Nicotine patch. 5. CKD - Has multiple risk factors for CKD. Will consult nephrology and avoid nephrotoxic agents such as NSAIDS, aminoglycosides, contrast dyes and certain Alternative medicine products. 6. Anemia - Likely multifactorial. Will do basic anemia work up including serial stool guaiacs, reticulocyte count and iron studies. 7. Polypharmacy - Will liaise with patient's PCP to discontinue medications that are not absolutely essential. This strategy may also enhance compliance with medication regimen. 8. Obesity Counseled on the risks associated with obesity. Will provide patient all the necessary assistance, counseling and positive reinforcement to facilitate weight loss. Consult sliver cutter. 9. Cocaine and Alcohol abuse - Monitor closely for drug withdrawal. Implement CIWA ativan alcohol withdrawal protocol and do neurochecks. Implement seizure, fall and aspiration precautions. Treat with thiamine and folic acid and monitor electrolytes (Ca,Mg,K,P). Counseled patient about abstaining from alcohol and illicit drug use. Will consult client renewal specialist and refer to alcohol/drug detox upon discharge. 10. DVT prophylaxis - Heparin 5000u sq tid. 11. Advance directives - Full code
[2018-12-02 01:50] LABS: METHADONE, UR NEGATIVE ng/ml (CUTOFF=300); PHENCYCLIDINE,URINE NEGATIVE ng/ml (CUTOFF=25); URINE AMPHETAMINES NEGATIVE ng/ml (CUTOFF=500); URINE BARBITURATES NEGATIVE ng/ml (CUTOFF=200); URINE BENZODIAZEPINES NEGATIVE ng/ml (CUTOFF=200)
[2018-12-02 01:52] LABS: COCAINE, UR POSITIVE ng/ml (CUTOFF=300); OPIATES, URI POSITIVE ng/ml (CUTOFF=300)
--- NOTE | 2018-12-02 04:39 | HP ---
CHIEF COMPLAINT: chest pain PCP: Mary HISTORY OF PRESENT ILLNESS: 58 y.o. M PMH HTN, DM, HLD, CAD s/p 3x DC, COPD/asthma, R carotid stenosis s/p endarterectomy 07/2018, diastolic CHF, CKD, TIA, stable AAA, cocaine and alcohol abuse presenting for substernal chest pain for 1 day duration. The pain began at rest, is sharp, radiates to R chest and down left arm. The patient states that he ran out of all of his medications 2 days ago including all of his anti hypertensive medications and hasnt taken any meds in this time. He also says that he is feeling weaker than his usual self. During my interview the patient urinated in the bed and seem to have urinated on the floor as well. On ROS: +chest pain, LE edema x2 days, abdominal distension Denies: SOB, HURD, chills, nausea, vomiting, diarrhea ER course was notable for: (1) BP 208/131 (2) Nitropaste, morphine 4mgIV, lasix 40mg IV, ativan 2mg IV (3) Recent Travel: PAST MEDICAL HISTORY: as per HPI PAST SURGICAL HISTORY: carotid endarterectomy, L ankle ORIF Social History: Smokin cigarettes daily Alcohol: 2 beers daily unknown how many years Drugs: cocaine use unknown quantity/ length of use Allergies IRMA Inhibitors Allergy (Verified 12/01/18 18:50) HOME MEDICATIONS: Home Medications Medication Instructions Recorded Furosemide [Lasix -] 40 mg PO DAILY #30 tablet 07/02/18 Isosorbide Mononitrate [Imdur -] 60 mg PO DAILY #30 tab.sr.24h 07/02/18 Hydralazine HCl 100 mg PO TID 08/09/18 Atorvastatin Ca [Lipitor] 80 mg PO HS #30 tablet 08/17/18 Carvedilol [Coreg -] 25 mg PO BID #60 tablet 08/17/18 Spironolactone [Aldactone -] 50 mg PO DAILY #30 tablet 08/17/18 Aspirin Coated [Ecotrin -] 3.25 mg PO DAILY 10/19/18 Clopidogrel Bisulfate [Plavix] 75 mg PO DAILY 10/19/18 Cyclobenzaprine HCl 5 mg PO Q8H PRN #6 tablet 10/20/18 Methyl Salicylate/Menthol Oint 1 applic TP DAILY PRN #1 applic 10/20/18 [Analgesic [place] -] Albuterol 0.083% Nebulizer Jane 1 amp NEB Q4H #10 amp 11/01/18 [Ventolin 0.083% Nebulizer Soln -] Furosemide [Lasix] 40 mg PO DAILY #90 tablet 11/01/18 Miscellaneous Medical Supply 1 each .ROUTE ASDIR #1 kit 11/03/18 [Glucometer Device] Miscellaneous Medical Supply 1 each .ROUTE ASDIR #1 box 11/03/18 [Glucometer Test Strips #100] Aspirin Coated [Ecotrin -] 81 mg PO DAILY tablet.ec 11/04/18 Furosemide [Lasix -] 40 mg PO DAILY tablet 11/04/18 Insulin (Levemir) [Levemir Vial] 30 units SQ 0700,2200 units 11/04/18 Insulin Sliding Scale [Novolog 1 vial SQ ACHS units 11/04/18 Vial Sliding Scale -] Nifedipine ER [Procardia XL -] 90 mg PO DAILY tab.er.24 11/04/18 Sitagliptin Phosphate [Januvia -] 25 mg PO DAILY@0700 #30 tab 11/04/18 predniSONE [Deltasone -] 10 mg PO DAILY #32 tablet 11/04/18 PHYSICAL EXAMINATION Vital Signs - 24 hr 12/01/18 12/01/18 12/01/18 18:47 19:04 20:30 Temperature 97.7 F 98.9 F Pulse Rate 108 H Pulse Rate [ 94 H 83 Right Radial] Respiratory 28 H 18 27 H Rate Blood Pressure 205/128 H Blood Pressure 144/62 195/133 H [Right Arm] O2 Sat by Pulse 95 96 98 Oximetry (%) 12/01/18 12/01/18 12/01/18 21:03 22:48 23:46 Temperature Pulse Rate 101 H Pulse Rate [ 93 H Right Radial] Respiratory Rate Blood Pressure 204/130 H Blood Pressure 208/131 H [Right Arm] O2 Sat by Pulse 98 Oximetry (%) 12/02/18 12/02/18 12/02/18 00:07 00:15 02:03 Temperature Pulse Rate Pulse Rate [ 101 H 85 Right Radial] Respiratory 22 H 20 Rate Blood Pressure Blood Pressure 204/130 H 190/114 H 179/110 H [Right Arm] O2 Sat by Pulse 96 99 Oximetry (%) 12/02/18 03:56 Temperature Pulse Rate Pulse Rate [ Right Radial] Respiratory 20 Rate Blood Pressure Blood Pressure [Right Arm] O2 Sat by Pulse 99 Oximetry (%) GENERAL: AOx2 oriented to place and self not month or year. Somnolent, difficult to arouse. Responsive to sternal rub. HEENT: No scleral icterus, no conjunctival injection. Pupils constricted ( morphine in ED) but reactive to light b/l. LUNGS: CTABL. HEART: Tachycardic. No murmurs appreciated. ABDOMEN: Soft but grossly distended. No tenderness to palpation. Whiteford & mcburneys negative. No rebound or guarding. + fluid wave. UPPER EXTREMITIES: 2+ pulses palpated. No peripheral edema. + RUE motor drift w / outstretched arms. No tremors. LOWER EXTREMITIES: 2+ pulses palpated. No calf tenderness. 2+ pitting edema b/ l. RLE motor drift. NEUROLOGICAL: Unable to assess cranial nerves d/t patient somnolence. Motor strength diminished RUE & RLE. 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 Sensory intact b/ l UE & LE. Laboratory Results - last 24 hr 12/01/18 12/01/18 12/01/18 20:10 20:10 20:10 WBC 11.3 H RBC 3.50 L Hgb 10.8 L Hct 34.1 L MCV 97.5 H MCH 30.8 MCHC 31.6 L RDW 17.3 H Plt Count 384 D MPV 7.9 Absolute Neuts (auto) 8.7 H Neutrophils % 76.9 Lymphocytes % 15.0 Monocytes % 6.3 Eosinophils % 0.9 Basophils % 0.9 Nucleated RBC % 0 PT with INR INR Sodium 135 L Potassium 6.5 H* Chloride 106 Carbon Dioxide 24 Anion Gap 5 L BUN 22.0 H Creatinine 1.6 H Est GFR (CKD-EPI)AfAm 54.61 Est GFR (CKD-EPI)NonAf 47.12 Random Glucose 274 H Calcium 8.5 Total Bilirubin 0.7 AST 114 H ALT 137 H Alkaline Phosphatase 249 H Creatine Kinase 160 Creatine Kinase Index 1.1 CK-MB (CK-2) 1.8 Troponin I 0.07 H B-Natriuretic Peptide 5649.8 H Total Protein 6.8 Albumin 2.9 L Opiates Screen Methadone Screen Barbiturate Screen Phencyclidine Screen Ur Amphetamines Screen MDMA (Ecstasy) Screen Benzodiazepines Screen Cocaine Screen U Marijuana (THC) Screen 12/01/18 12/01/18 12/02/18 20:10 22:52 00:30 WBC RBC Hgb Hct MCV MCH MCHC RDW Plt Count MPV Absolute Neuts (auto) Neutrophils % Lymphocytes % Monocytes % Eosinophils % Basophils % Nucleated RBC % PT with INR 14.40 H INR 1.22 H Sodium 139 Potassium 3.7 Chloride 108 H Carbon Dioxide 25 Anion Gap 6 L BUN 21.6 H Creatinine 1.4 H Est GFR (CKD-EPI)AfAm 64.18 Est GFR (CKD-EPI)NonAf 55.38 Random Glucose 254 H Calcium 8.6 Total Bilirubin 0.8 AST 37 ALT 125 H Alkaline Phosphatase 243 H Creatine Kinase Creatine Kinase Index CK-MB (CK-2) Troponin I B-Natriuretic Peptide Total Protein 6.3 L Albumin 3.0 L Opiates Screen Positive A* Methadone Screen Negative Barbiturate Screen Negative Phencyclidine Screen Negative Ur Amphetamines Screen Negative MDMA (Ecstasy) Screen Negative Benzodiazepines Screen Negative Cocaine Screen Positive A* U Marijuana (THC) Screen Negative CT Chest, Abd/ pel:The thoracoabdominal aorta demonstrates no CT evidence of dissection. As on the prior CT exam of 04/16/2018 there is stable fusiform aneurysmal dilatation of the infrarenal aorta with a 4.3 cm diameter. Interval development of mild pericolonic soft tissue edema is noted adjacent to the mid and lower thirds of the descending colon as well as the upper third of the sigmoid colon. There is possible associated mild concentric wall thickening along the same region. Numerous diverticula are seen. On the basis of the current exam it is uncertain whether these findings are due to acute colitis ( ischemic versus inflammatory/infectious) or acute uncomplicated diverticulitis. Correlate clinically. Development of a very small amount of free fluid is seen within the abdomen and pelvis. 0.7 x 0.2 cm nonobstructing right renal calculus. In comparison to a chest CT exam of 11/02/2018 interval development of small bilateral pleural effusions is noted as well as mild increase concentric subcutaneous soft tissue stranding at the level of the abdomen and pelvis. Note is again made of minimal to mild bilateral pneumonitis groundglass interstitial opacity which may be mildly increased - ? due to vascular congestion. Increased nonspecific mediastinal lymphadenopathy is noted. Mild cardiomegaly. Note is again made of dilatation of the main pulmonary artery with a 4.3 cm diameter consistent with debris hypertension. A 2 mm right upper lobe nodule noted on the previous exam is difficult to visualize on the current exam. Correlate with 3-4 month follow-up CT Head CT: No CT evidence of intracranial hemorrhage. A chronic right posterior temporal cortical infarct is noted which was not present at the time of a CT exam of 08/06/2018. Note is again made of chronic right frontal and right parietal cortical infarcts. ASSESSMENT/PLAN: 58 y.o. M PMH HTN, DM2, HLD, CAD s/p 3x DC, COPD/asthma, R carotid stenosis s/p endarterectomy 07/2018, diastolic CHF, CKD, TIA, stable AAA, cocaine and alcohol abuse presenting with chest pain. #CVA vs. HTN encephalopathy -NIHSS 9 -NPO -Atorvastatin 80mg daily, asa 81mg daily, plavix 75mg daily -F/u Brain MRI w/o contrast, carotid doppler, echo -Neuro consulted (Dr. Kent) -fall/ seizure/ aspiration precautions -Frequent neuro checks -Speech & swallow eval -Physical therapy eval #Hypertensive emergency -Hold cardine drip d/t new onset cva -Holding home anti HTN meds to allow permissive HTN -EKG in ED:qtc 489, sinus tach-- trop 0.07 -F/u repeat trop & EKG #Leukocytosis -Pt recently completed steroid course -F/u cultures -ID consulted (Dr. Miller) -CT abd pel findings as above #Colitis -Protonix 40mg IV daily -GI consulted (Dr. Lowe) -Hold steroids at this time; recently completed course on last d/c 1 month ago #CHF -BNP 5649.8 (6880 1 mo ago) -Hold lasix to allow for permissive HTN -daily weights -Is & Os #GOGO on CKD -Cr 1.6 baseline 1.2 -Dr. Gilmore (nephro)consulted -Avoid nephrotoxic medications #DM type 2 -ISS -BGMs #Transaminitis -Hepatitis panel neg as per 07/2018 labs -F/u AM labs -F/u RUQ U/S #Polysubstance abuse -PRN ativan if withdrawal -Utox + for cocaine, opioids (given morphine in ED) #FEN -No standing fluids -Trend lytes, replete PRN -NPO #DVT PPX -SCDs #Dispo ICU Visit type - Emergency Visit Emergency Visit: Yes ED Registration Date: 12/01/18 Care time: The patient presented to the Emergency Department on the above date and was hospitalized for further evaluation of their emergent condition. - New Patient This patient is new to me today: Yes Date on this admission: 12/02/18 - Critical Care Critical Care patient: Yes Total Critical Care Time (in minutes): 36 Critical Care Statement: The care of this patient involved high complexity decision making to prevent further life threatening deterioration of the patient 's condition and/or to evaluate & treat vital organ system(s) failure or risk of failure. ATTENDING PHYSICIAN STATEMENT I saw and evaluated the patient. I reviewed the resident's note and discussed the case with the resident. I agree with the resident's findings and plan as documented. SUBJECTIVE: OBJECTIVE: ASSESSMENT AND PLAN:
[2018-12-02] MEDS ORDERED: LORazepam 2 MG/ML SDV VIAL IVPUSH PRN (05:55)
[2018-12-02] MEDS ORDERED: HEPARIN NA (PORCINE) 5,000 UNITS/ML 1ML VIAL SQ SCH (06:00)
--- NOTE | 2018-12-02 06:00 | PN.NIHSS ---
NIH Stroke Scale - Last Known Well Date/Time & Onset Date Last Known Well: 11/29/18 - Initial Evaluation Level of consciousness: Not alert, requires repeat stimulation to attend Ask patient the month and their age: Answers one correctly Ask patient to open & close eyes; make fist and let go: Obeys both correctly Best gaze (horizontal eye movement): Normal Facial paresis (Show teeth/raise eyebrows/close eyes tight): Normal symmetrical movement Motor Function: Left Arm: Normal Motor Function: Right Arm: Drift Motor Function: Left Leg: Normal (extends leg 30 degrees for 5 seconds without drift) Motor Function: Right Leg: Drift Limb Ataxia: No ataxia Sensory(Use pinprick test arms,legs,trunk,face/side to side): Normal Best language (Describe picture, name items, read sentences): No Aphasia Dysarthria (read several words): Mild to moderate slurring of words Extinction and Inattention: No abnormality
[2018-12-02] MEDS ORDERED: ISOSORBIDE MONONITRATE 30 MG TAB.SR.24H (FP) PO ONE (06:21)
[2018-12-02 06:36] LABS: BASO % 0.7 % (0-2.0); EOS % 1.8 % (0-4.5); HEMATOCRIT 33.9 % (35.4-49); HEMOGLOBIN 11.1 GM/dL (11.7-16.9); LYMPH % 13.1 % (8-40); MCH 31.5 pg (25.7-33.7); MCHC 32.6 g/dl (32.0-35.9); MEAN CELL VOLUME 96.7 fl (80-96); MEAN PLT VOLUME 7.4 fl (7.5-11.1); NEUT % 77.4 % (42.8-82.8); PLATELET COUNT 365 K/MM3 (134-434); RBC 3.51 M/mm3 (4.00-5.60); RDW 17.2 % (11.9-15.9)
[2018-12-02 06:58] LABS: ALBUMIN 2.9 g/dl (3.4-5.0); BILIRUBIN,TOTAL 0.9 mg/dL (0.2-1); BLOOD UREA NITROGEN 17.3 mg/dL (7-18); CALCIUM 8.9 mg/dL (8.5-10.1); CREATININE 1.2 mg/dL (0.55-1.3); MAGNESIUM 1.6 mg/dL (1.8-2.4); PHOSPHOROUS 3.3 mg/dL (2.5-4.9); POTASSIUM 3.6 mmol/L (3.5-5.1); TOT PROT 6.4 g/dl (6.4-8.2)
[2018-12-02] MEDS: INSULIN SLIDING SCALE (NOVOLOG) 1 VIAL SQ SCH ×4 (07:13→22:00)
--- NOTE | 2018-12-02 08:31 | PN ---
Teaching Attending Note Name of Resident: Graciela Ames ATTENDING PHYSICIAN STATEMENT I saw and evaluated the patient. I reviewed the resident's note and discussed the case with the resident. I agree with the resident's findings and plan as documented. SUBJECTIVE: Patient is NPO now. C/o feeling hungry. OBJECTIVE: Vital Signs Temperature 98.8 F 12/02/18 04:29 Pulse Rate 95 H 12/02/18 04:29 Respiratory Rate 24 H 12/02/18 05:00 Blood Pressure 218/143 H 12/02/18 05:04 O2 Sat by Pulse Oximetry (%) 99 12/02/18 05:00 GENERAL: The patient is awake, alert, and fully oriented, in no acute distress. HEAD: Normal with no signs of trauma. EYES: PERRL, extraocular movements intact, sclera anicteric, conjunctiva clear. ENT: Ears normal, oropharynx clear without exudates, moist mucous membranes. NECK: Trachea midline, full range of motion, supple. LUNGS: Breath sounds equal, clear to auscultation bilaterally, no wheezes, no crackles, no accessory muscle use. HEART: Regular rate and rhythm, S1, S2 without murmur, rub or gallop. ABDOMEN: Soft, nontender, nondistended, normoactive bowel sounds, no guarding, no rebound, no hepatosplenomegaly, no masses. EXTREMITIES: 2+ pulses, warm, well-perfused, no edema. NEUROLOGICAL: Cranial nerves II through XII grossly intact. Normal speech, gait not observed. PSYCH: Normal mood, normal affect. SKIN: Warm, dry, normal turgor, no rashes or lesions noted CBCD WBC 9.0 K/mm3 (4.0-10.0) 12/02/18 05:45 RBC 3.51 M/mm3 (4.00-5.60) L 12/02/18 05:45 Hgb 11.1 GM/dL (11.7-16.9) L 12/02/18 05:45 Hct 33.9 % (35.4-49) L 12/02/18 05:45 MCV 96.7 fl (80-96) H 12/02/18 05:45 MCHC 32.6 g/dl (32.0-35.9) 12/02/18 05:45 RDW 17.2 % (11.9-15.9) H 12/02/18 05:45 Plt Count 365 K/MM3 (134-434) 12/02/18 05:45 MPV 7.4 fl (7.5-11.1) L 12/02/18 05:45 CMP Sodium 142 mmol/L (136-145) 12/02/18 05:45 Potassium 3.6 mmol/L (3.5-5.1) 12/02/18 05:45 Chloride 108 mmol/L (98-107) H 12/02/18 05:45 Carbon Dioxide 28 mmol/L (21-32) 12/02/18 05:45 Anion Gap 6 MMOL/L (8-16) L 12/02/18 05:45 BUN 17.3 mg/dL (7-18) 12/02/18 05:45 Creatinine 1.2 mg/dL (0.55-1.3) 12/02/18 05:45 Random Glucose 219 mg/dL (74-106) H 12/02/18 05:45 Calcium 8.9 mg/dL (8.5-10.1) 12/02/18 05:45 Total Bilirubin 0.9 mg/dL (0.2-1) 12/02/18 05:45 AST 27 U/L (15-37) 12/02/18 05:45 ALT 116 U/L (13-61) H 12/02/18 05:45 Alkaline Phosphatase 236 U/L (45-117) H 12/02/18 05:45 Total Protein 6.4 g/dl (6.4-8.2) 12/02/18 05:45 Albumin 2.9 g/dl (3.4-5.0) L 12/02/18 05:45 CARDIAC ENZYMES Creatine Kinase 160 U/L (26-308) 12/01/18 20:10 Troponin I 0.07 ng/ml (0.00-0.05) H 12/01/18 20:10 Current Medications Generic Name Dose Route Start Last Admin Trade Name Freq PRN Reason Stop Dose Admin Aspirin 81 mg 12/02/18 10:00 Ecotrin - PO DAILY [facility] Atorvastatin Calcium 80 mg 12/02/18 22:00 Lipitor - PO HS PUSH[facility] Clopidogrel Bisulfate 75 mg 12/02/18 10:00 Plavix - PO DAILY [facility] Heparin Sodium (Porcine) 5,000 unit 10/10/19 06:00 12/02/18 07:10 Heparin - SQ 5,000 unit TID [facility] Administration Insulin Aspart 1 vial 12/02/18 07:00 12/02/18 07:13 Novolog Vial Sliding Scale - SQ 2 applic ACHS [facility] Administration Protocol Lorazepam 2 mg 12/02/18 05:55 Ativan Injection - IVPUSH Q2H PRN AGITATION Pantoprazole Sodium 40 mg 12/02/18 10:00 Protonix Iv IVPUSH DAILY [facility] Home Medications Medication Instructions Recorded Furosemide [Lasix -] 40 mg PO DAILY #30 tablet 07/02/18 Isosorbide Mononitrate [Imdur -] 60 mg PO DAILY #30 tab.sr.24h 07/02/18 Hydralazine HCl 100 mg PO TID 08/09/18 Atorvastatin Ca [Lipitor] 80 mg PO HS #30 tablet 08/17/18 Carvedilol [Coreg -] 25 mg PO BID #60 tablet 08/17/18 Spironolactone [Aldactone -] 50 mg PO DAILY #30 tablet 08/17/18 Aspirin Coated [Ecotrin -] 3.25 mg PO DAILY 10/19/18 Clopidogrel Bisulfate [Plavix] 75 mg PO DAILY 10/19/18 Cyclobenzaprine HCl 5 mg PO Q8H PRN #6 tablet 10/20/18 Methyl Salicylate/Menthol Oint 1 applic TP DAILY PRN #1 applic 10/20/18 [Analgesic [place] -] Albuterol 0.083% Nebulizer Jane 1 amp NEB Q4H #10 amp 11/01/18 [Ventolin 0.083% Nebulizer Soln -] Furosemide [Lasix] 40 mg PO DAILY #90 tablet 11/01/18 Miscellaneous Medical Supply 1 each .ROUTE ASDIR #1 kit 11/03/18 [Glucometer Device] Miscellaneous Medical Supply 1 each .ROUTE ASDIR #1 box 11/03/18 [Glucometer Test Strips #100] Aspirin Coated [Ecotrin -] 81 mg PO DAILY tablet.ec 11/04/18 Furosemide [Lasix -] 40 mg PO DAILY tablet 11/04/18 Insulin (Levemir) [Levemir Vial] 30 units SQ 0700,2200 units 11/04/18 Insulin Sliding Scale [Novolog 1 vial SQ ACHS units 11/04/18 Vial Sliding Scale -] Nifedipine ER [Procardia XL -] 90 mg PO DAILY tab.er.24 11/04/18 Sitagliptin Phosphate [Januvia -] 25 mg PO DAILY@0700 #30 tab 11/04/18 predniSONE [Deltasone -] 10 mg PO DAILY #32 tablet 11/04/18 Laboratory Tests 08/02/15 08/13/18 08/14/18 23:30 07:30 05:35 Sodium 131 L 133 L Opiates Screen Negative Methadone Screen Negative Barbiturate Screen Negative Phencyclidine Screen Negative Ur Amphetamines Screen Negative MDMA (Ecstasy) Screen Negative Benzodiazepines Screen Negative Cocaine Screen Positive U Marijuana (THC) Screen Negative 12/02/18 00:30 Sodium Opiates Screen Positive A* Methadone Screen Negative Barbiturate Screen Negative Phencyclidine Screen Negative Ur Amphetamines Screen Negative MDMA (Ecstasy) Screen Negative Benzodiazepines Screen Negative Cocaine Screen Positive A* U Marijuana (THC) Screen Negative Us of carotids: small to moderate size soft plaque at the right common carotid bifurcation/bulb without evidence of significant stenosis. ASSESSMENT AND PLAN: Patient is a 58yo male with PMHx of HTN, cocaine use, HLP, CAD s/p CT , chronic diastolic CHF, COPD, nicotine dependence, DM , who presented with CP. He was found to have acute pulm edema with HTN emergency. #Hypertensive Emergency: added hydralazine IV, prn, #Chronic right posterior temporal cortical infarct and chronic right frontal and right parietal cortical infarcts.on Lipitor 80mg hs, will add aspirin once Bp below 180 # Polysubstance abuse: detox consult #Right maxillary sinus mucus retention cyst/polyp # Hx of CAD: continue home meds #Hx of HLD : continue lipitor #T2DM on levemir 30 ( home dose 30 BID) , cont SSI #Hx of R Carotid artery stenosis (95% blockage) s/p endarterectomy by dr. Johnson #chronic diastolic heart failure : Continue lasix, spironolactone, coreg #COPD: on Nebulizer txments. DVT PX :SCds for now , once blood pressure below 180 will restart Heparin SQ. Dysphagia screening.
--- NOTE | 2018-12-02 08:51 | PN ---
Progress Note (short form) - Note Progress Note: Patient was seen as service case in 2013 and has not followed up in office. Please refer case to service.
[2018-12-02 09:02] LABS: ANISOCYTOSIS 1+; MACROCYTOSIS 1+; PLATELET ESTIMATE NORMAL
--- NOTE | 2018-12-02 09:07 | CON.NEURO ---
Consult - Past Medical History Cardio/Vascular: Yes: CAD (S/P PCI), HTN, Hyperlipdemia, [place], Other (dilated cardiomyopathy (nonischemic), LV systolic dysfunction, ) Pulmonary: Yes: Asthma Gastrointestinal: Yes: GERD Renal/: Yes: Renal Inusuff Musculoskeletal: Yes: Chronic low back pain Additional Medical History: Rightt achilles tendon tear. Rightt testicular torsion. Angioedema due to ACEI - Alcohol/Substance Use Hx Alcohol Use: Yes Number of Drinks Daily: 3 (beer) History of Substance Use: reports: Cocaine - Smoking History Smoking history: Current every day smoker Have you smoked in the past 12 months: No Aproximately how many cigarettes per day: 2 If you are a former smoker, when did you quit?: smokes 2 x per week - Social History ADL: Independent Occupation: Employed History of Recent Travel: No Home Medications - Allergies Allergies/Adverse Reactions: Allergies Allergy/AdvReac Type Severity Reaction Status Date / Time IRMA Inhibitors Allergy Verified 12/01/18 18:50 - Home Medications Home Medications: Ambulatory Orders Furosemide [Lasix -] 40 mg PO DAILY #30 tablet 07/02/18 Isosorbide Mononitrate [Imdur -] 60 mg PO DAILY #30 tab.sr.24h 07/02/18 Hydralazine HCl 100 mg PO TID 08/09/18 Atorvastatin Ca [Lipitor] 80 mg PO HS #30 tablet 08/17/18 Carvedilol [Coreg -] 25 mg PO BID #60 tablet 08/17/18 Spironolactone [Aldactone -] 50 mg PO DAILY #30 tablet 08/17/18 Aspirin Coated [Ecotrin -] 3.25 mg PO DAILY 10/19/18 Clopidogrel Bisulfate [Plavix] 75 mg PO DAILY 10/19/18 Cyclobenzaprine HCl 5 mg PO Q8H PRN #6 tablet 10/20/18 Methyl Salicylate/Menthol Oint [Analgesic [place] -] 1 applic TP DAILY PRN #1 applic 10/20/18 Albuterol 0.083% Nebulizer Jane [Ventolin 0.083% Nebulizer Soln -] 1 amp NEB Q4H #10 amp 11/01/18 Furosemide [Lasix] 40 mg PO DAILY #90 tablet 11/01/18 Miscellaneous Medical Supply [Glucometer Device] 1 each .ROUTE ASDIR #1 kit 01/11 Miscellaneous Medical Supply [Glucometer Test Strips #100] 1 each .ROUTE ASDIR # 1 box 11/03/18 Aspirin Coated [Ecotrin -] 81 mg PO DAILY tablet.ec 11/04/18 Furosemide [Lasix -] 40 mg PO DAILY tablet 11/04/18 Insulin (Levemir) [Levemir Vial] 30 units SQ 0700,2200 units 11/04/18 Insulin Sliding Scale [Novolog Vial Sliding Scale -] 1 vial SQ ACHS units 11/04 Nifedipine ER [Procardia XL -] 90 mg PO DAILY tab.er.24 11/04/18 Sitagliptin Phosphate [Januvia -] 25 mg PO DAILY@0700 #30 tab 11/04/18 predniSONE [Deltasone -] 10 mg PO DAILY #32 tablet 11/04/18 Physical Exam-Neuro Vital Signs: Vital Signs Temperature 98.8 F 12/02/18 04:29 Pulse Rate 95 H 12/02/18 04:29 Respiratory Rate 24 H 12/02/18 05:00 Blood Pressure 218/143 H 12/02/18 05:04 O2 Sat by Pulse Oximetry (%) 99 12/02/18 05:00 Labs: CBC, BMP 12/02/18 05:45 12/02/18 05:45 INR, PTT INR 1.22 (0.83-1.09) H 12/01/18 20:10 Assessment/Plan cc Sudden onset Right sided hemiparesis and slurring of speech HPI 58 year old male history of DM,HLD,CAD, COPD, Right carotid endartectomy, chf, ckd, stable aa. Patient has came with right arm and leg weakenss with slurred of speech, his ct head unremarkable. Patient has cocaine positive and he ran out of medication recently. PAST MEDICAL HISTORY: as per HPI PAST SURGICAL HISTORY: carotid endarterectomy, L ankle ORIF Social History: Smokin cigarettes daily Alcohol: 2 beers daily unknown how many years Drugs: cocaine use unknown quantity/ length of use Allergies IRMA Inhibitors Allergy (Verified 12/01/18 18:50) HOME MEDICATIONS: Home Medications Medication Instructions Recorded Furosemide [Lasix -] 40 mg PO DAILY #30 tablet 07/02/18 Isosorbide Mononitrate [Imdur -] 60 mg PO DAILY #30 tab.sr.24h 07/02/18 Hydralazine HCl 100 mg PO TID 08/09/18 Atorvastatin Ca [Lipitor] 80 mg PO HS #30 tablet 08/17/18 Carvedilol [Coreg -] 25 mg PO BID #60 tablet 08/17/18 Spironolactone [Aldactone -] 50 mg PO DAILY #30 tablet 08/17/18 Aspirin Coated [Ecotrin -] 3.25 mg PO DAILY 10/19/18 Clopidogrel Bisulfate [Plavix] 75 mg PO DAILY 10/19/18 Cyclobenzaprine HCl 5 mg PO Q8H PRN #6 tablet 10/20/18 Methyl Salicylate/Menthol Oint 1 applic TP DAILY PRN #1 applic 10/20/18 [Analgesic [place] -] Albuterol 0.083% Nebulizer Jane 1 amp NEB Q4H #10 amp 11/01/18 [Ventolin 0.083% Nebulizer Soln -] Furosemide [Lasix] 40 mg PO DAILY #90 tablet 11/01/18 Miscellaneous Medical Supply 1 each .ROUTE ASDIR #1 kit 11/03/18 [Glucometer Device] Miscellaneous Medical Supply 1 each .ROUTE ASDIR #1 box 11/03/18 [Glucometer Test Strips #100] Aspirin Coated [Ecotrin -] 81 mg PO DAILY tablet.ec 11/04/18 Furosemide [Lasix -] 40 mg PO DAILY tablet 11/04/18 Insulin (Levemir) [Levemir Vial] 30 units SQ 0700,2200 units 11/04/18 Insulin Sliding Scale [Novolog 1 vial SQ ACHS units 11/04/18 Vial Sliding Scale -] Nifedipine ER [Procardia XL -] 90 mg PO DAILY tab.er.24 11/04/18 Sitagliptin Phosphate [Januvia -] 25 mg PO DAILY@0700 #30 tab 11/04/18 predniSONE [Deltasone -] 10 mg PO DAILY #32 tablet 11/04/18 ROS,FH,SH reviewed in chart NEUROLOGICAL EXAMIATNION Alert oriented x 3, speech is slurred, neck is supple vss eomi, pupils reactive, no face asymmetry Right arm and leg weakess ct head right old posterior temoral lobe infarct identified Assessment : Right sided hemiparesis with slurring of speech , history of cocaine abuse and noncompliant with his bp medication. Plan: suggest to keep treat bp if goes above 220/120 - mri of brain and carotid ultrasound - continue aspirin, plavix and statin -pt, speech and dvt prophylaxis - stroke education - cessation of drug abuse Thanking you so much Yadiel Kent MD
[2018-12-02] MEDS ORDERED: DEXTROSE 5%-WATER - 50 ML IVPB ONE (09:47)
[2018-12-02] MEDS ORDERED: cefTRIAXone SODIUM 1 GM VIAL ONE (09:47)
[2018-12-02] MEDS: PANTOPRAZOLE SODIUM 40 MG VIAL IVPUSH SCH (09:57)
[2018-12-02] MEDS: CEFTRIAXONE 1 GM in DEXTROSE 5%-WATER - 50 ML IVPB SCH (09:57)
[2018-12-02] MEDS ORDERED: ASPIRIN COATED 81 MG TABLET.EC PO SCH (10:00)
[2018-12-02] MEDS: CLOPIDOGREL BISULFATE 75 MG TABLET (FP) PO SCH (11:06)
[2018-12-02] MEDS ORDERED: hydrALAZINE HCL 20 MG/ML VIAL IVPUSH PRN (11:20)
[2018-12-02] MEDS ORDERED: NIFEdipine E.R. 30 MG TABLET (FP) PO ONE (11:36)
--- NOTE | 2018-12-02 11:39 | CON.CARD ---
Consult Consult Specialty:: Cardiology Referred by:: Hospitalist Medicine Reason for Consultation:: HTN urgency - History of Present Illness Chief Complaint: Chest pain, dyspnea History of Present Illness: Patient is a 58 year old male with underlying history of bronchial asthma, CAD s /p OR, PCI/stent, COPD, NIDDM, diastolic dysfunction with h/o failure, TIA, carotid stenosis s/p right CEA and poluysubstance abuse (alcohol and cocaine), left ankle ORIF presents to the ER after 3 hours of chest pain, SOB, abdominal distension, uncontrolled hypertension BP 200/130, right UE weakness with slurring of speech. Patient has history of nonadherence to medication regimen. Does not remember the last time he used cocaine. He denies palpitations, near or true syncope, orthopnea, PND or LE edema. In ED, he was treated with nitropaste, morphine, IV lasix, ativan and started on cardene drip by the ER staff, currently chest pain free, was allowed to have permissive hypertension due to suspected acute CVA. - History Source History Provided By: Patient Limitations to Obtaining History: Poor Historian - Past Medical History Cardio/Vascular: Yes: CAD (S/P PCI), HTN, Hyperlipdemia, [place], Other (dilated cardiomyopathy (nonischemic), LV systolic dysfunction, ) Pulmonary: Yes: Asthma Gastrointestinal: Yes: GERD Renal/: Yes: Renal Inusuff Musculoskeletal: Yes: Chronic low back pain Additional Medical History: Rightt achilles tendon tear. Rightt testicular torsion. Angioedema due to ACEI - Alcohol/Substance Use Hx Alcohol Use: Yes Number of Drinks Daily: 3 (beer) History of Substance Use: reports: Cocaine - Smoking History Smoking history: Current every day smoker Have you smoked in the past 12 months: No Aproximately how many cigarettes per day: 2 If you are a former smoker, when did you quit?: smokes 2 x per week - Social History ADL: Independent Occupation: Employed History of Recent Travel: No Home Medications - Allergies Allergies/Adverse Reactions: Allergies Allergy/AdvReac Type Severity Reaction Status Date / Time IRMA Inhibitors Allergy Verified 12/01/18 18:50 - Home Medications Home Medications: Ambulatory Orders Isosorbide Mononitrate [Imdur -] 60 mg PO DAILY #30 tab.sr.24h 07/02/18 Hydralazine HCl 100 mg PO TID 08/09/18 Atorvastatin Ca [Lipitor] 80 mg PO HS #30 tablet 08/17/18 Carvedilol [Coreg -] 25 mg PO BID #60 tablet 08/17/18 Spironolactone [Aldactone -] 50 mg PO DAILY #30 tablet 08/17/18 Clopidogrel Bisulfate [Plavix] 75 mg PO DAILY 10/19/18 Cyclobenzaprine HCl 5 mg PO Q8H PRN #6 tablet 10/20/18 Methyl Salicylate/Menthol Oint [Analgesic [place] -] 1 applic TP DAILY PRN #1 applic 10/20/18 Albuterol 0.083% Nebulizer Jane [Ventolin 0.083% Nebulizer Soln -] 1 amp NEB Q4H #10 amp 11/01/18 Miscellaneous Medical Supply [Glucometer Device] 1 each .ROUTE ASDIR #1 kit 01/11 Miscellaneous Medical Supply [Glucometer Test Strips #100] 1 each .ROUTE ASDIR # 1 box 11/03/18 Aspirin Coated [Ecotrin -] 81 mg PO DAILY tablet.ec 11/04/18 Furosemide [Lasix -] 40 mg PO DAILY tablet 11/04/18 Insulin (Levemir) [Levemir Vial] 30 units SQ 0700,2200 units 11/04/18 Insulin Sliding Scale [Novolog Vial Sliding Scale -] 1 vial SQ ACHS units 11/04 Nifedipine ER [Procardia XL -] 90 mg PO DAILY tab.er.24 11/04/18 Sitagliptin Phosphate [Januvia -] 25 mg PO DAILY@0700 #30 tab 11/04/18 Review of Systems - Review of Systems Neurological: reports: Change in Speech, Weakness Vital Signs: Vital Signs Temperature 98.8 F 12/02/18 04:29 Pulse Rate 92 H 12/02/18 08:50 Respiratory Rate 17 12/02/18 08:50 Blood Pressure 210/131 H 12/02/18 08:50 O2 Sat by Pulse Oximetry (%) 99 12/02/18 05:00 Constitutional: Yes: No Distress, Calm Neck: Yes: Supple Respiratory: Yes: Regular, CTA Bilaterally Gastrointestinal: Yes: Normal Bowel Sounds, Soft Cardiovascular: Yes: Regular Rate and Rhythm JVD: No Carotid Bruit: No Heart Sounds: Yes: S1, S2 Murmur: Yes: Systolic Murmur, Grade 1 Edema: No - Other Data Labs, Other Data: CBC, BMP 12/02/18 05:45 12/02/18 05:45 INR, PTT INR 1.22 (0.83-1.09) H 12/01/18 20:10 Troponin, BNP 12/01/18 12/01/18 12/02/18 20:10 20:10 09:55 Troponin I 0.07 H 0.06 H B-Natriuretic Peptide 5649.8 H Troponin, BNP 12/01/18 12/01/18 12/02/18 20:10 20:10 09:55 Troponin I 0.07 H 0.06 H B-Natriuretic Peptide 5649.8 H ST @ 104 PVC Imaging - Results Chest X-ray: Report Reviewed (Congestion) Problem List - Problems (1) Hypertensive emergency Code(s): I16.1 - HYPERTENSIVE EMERGENCY (2) Cerebrovascular disease Code(s): I67.9 - CEREBROVASCULAR DISEASE, UNSPECIFIED (3) Chest pain Code(s): R07.9 - CHEST PAIN, UNSPECIFIED Qualifiers: Chest pain type: precordial pain Qualified Code(s): R07.2 - Precordial pain (4) Cocaine abuse Code(s): F14.10 - COCAINE ABUSE, UNCOMPLICATED (5) Diabetic nephropathy associated with type 2 diabetes mellitus Code(s): E11.21 - TYPE 2 DIABETES MELLITUS WITH DIABETIC NEPHROPATHY (6) Shortness of breath Code(s): R06.02 - SHORTNESS OF BREATH (7) Acute on chronic diastolic (congestive) heart failure Code(s): I50.33 - ACUTE ON CHRONIC DIASTOLIC (CONGESTIVE) HEART FAILURE (8) Alcohol dependence Code(s): F10.20 - ALCOHOL DEPENDENCE, UNCOMPLICATED Qualifiers: Substance use status: unspecified alcohol-induced disorder Qualified Code(s ): F10.29 - Alcohol dependence with unspecified alcohol-induced disorder (9) CAD (coronary artery disease) Code(s): I25.10 - ATHSCL HEART DISEASE OF [place] CORONARY ARTERY W/O ANG PCTRS Qualifiers: Coronary Disease-Associated Artery/Lesion type: [place] artery [place] vs. transplanted heart: [place] heart Associated angina: without angina Qualified Code(s): I25.10 - Atherosclerotic heart disease of [place] coronary artery without angina pectoris (10) Hyperlipidemia Code(s): E78.5 - HYPERLIPIDEMIA, UNSPECIFIED Qualifiers: Hyperlipidemia type: pure hypercholesterolemia Qualified Code(s): E78.00 - Pure hypercholesterolemia, unspecified (11) Postop carotid endarterectomy surveillance, encounter for Code(s): Z48.812 - ENCNTR FOR SURGICAL AFTCR FOLLOWING SURGERY ON THE CIRC SYS Assessment/Plan 12/01/2018 Ct head right 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 Acute stroke vs hypertensive encephelopathy 2. Hypertensive emergency due to medication noncompliance 3. Diastolic dysfunction 4. CAD and history of OR, PCI/stent with h/o demand ischemia 5. PVC 6. COPD h/o exacerbation 7. Hypercholesterolemia 8. 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 Substance abuse (Cocaine) with + UDS 11. History of angioedema due to ACEI 12. TIA post right CEA 13. Leukocytosis on steroids 14. 4.3 cm infrarenal AAA with mural thrombus PLAN: 1. Wean Cardene gtt, echo to assess ventricular and valve fxn, mri of brain and carotid ultrasound 2. IV diuresis and spirinolactone 50 qd with monitor for diuretic response, renal fxn and electrolytes 3. Continue Carvedilol 25 bid, Hydralazine 100 tid, ASA 81 qd, Plavix 75 qd, Lipitor 80 qhs, Procardia XL 90 qd, Imdur 60 qd and uptitrate as tolerated 4. DVT prophylaxis with Lovenox, monitor for withdrawal, f/u S&S evaluation 5. BD, O2 as needed, addressed importance of diet and medication compliance 6. Thank you for consultative opportunity
--- NOTE | 2018-12-02 11:57 | PN ---
Teaching Attending Note Name of Resident: Stanley Palacios ATTENDING PHYSICIAN STATEMENT I saw and evaluated the patient. I reviewed the resident's note and discussed the case with the resident. I agree with the resident's findings and plan as documented. SUBJECTIVE: Patient seen and examined in the ICU. Awake and alert. Denies CP but does report dizziness. RUE weakness 2/5. MAP > 150 throughout the night. Intake & Output 11/29/18 11/30/18 12/01/18 12/02/18 23:59 23:59 23:59 23:59 Intake Total 25 Output Total 1700 800 Balance -1700 -775 Weight 240 lb 254 lb 6 oz Last Vital Signs Temp Pulse Resp BP Pulse Ox 98.8 F 92 H 17 210/131 H 99 12/02/18 04:29 12/02/18 08:50 12/02/18 08:50 12/02/18 08:50 12/02/18 05:00 Active Medications Albuterol Sulfate (Ventolin 0.083% Nebulizer Soln -) 1 amp NEB Q6H PRN PRN Reason: SHORT OF BREATH/WHEEZING Aspirin (Ecotrin -) 81 mg PO DAILY PUSHPA Last Admin: 12/02/18 09:58 Dose: 81 mg Atorvastatin Calcium (Lipitor -) 80 mg PO HS PUSHPA Clopidogrel Bisulfate (Plavix -) 75 mg PO DAILY [facility] Last Admin: 12/02/18 11:06 Dose: 75 mg Hydralazine HCl (Apresoline Injection -) 10 mg IVPUSH Q6H PRN PRN Reason: HYPERTENSION Ceftriaxone Sodium 1 gm/ (Dextrose) 50 mls @ 200 mls/hr IVPB DAILY PUSHPA; Protocol Last Admin: 12/02/18 09:57 Dose: 200 mls/hr Metronidazole (Flagyl 500mg Premixed Ivpb -) 500 mg in 100 mls @ 100 mls/hr IVPB Q8H-IV PUSHPA Last Admin: 12/02/18 11:41 Dose: 100 mls/hr Insulin Aspart (Novolog Vial Sliding Scale -) 1 vial SQ ACHS PUSHPA; Protocol Last Admin: 12/02/18 10:58 Dose: Not Given Lorazepam (Ativan Injection -) 2 mg IVPUSH Q2H PRN PRN Reason: AGITATION Pantoprazole Sodium (Protonix Iv) 40 mg IVPUSH DAILY PUSHPA Last Admin: 12/02/18 09:57 Dose: 40 mg GENERAL: Awake and alert, NAD HEAD: Normal with no signs of trauma. EYES: Pupils equal, round and reactive to light, extraocular movements intact, sclera anicteric, conjunctiva clear. No lid lag. EARS, NOSE, THROAT: Ears normal, nares patent, oropharynx clear without exudates. Moist mucous membranes. NECK: Normal range of motion, supple without lymphadenopathy, JVD, or masses. LUNGS: Breath sounds equal, clear to auscultation bilaterally. No wheezes, and no crackles. No accessory muscle use. HEART: Regular rate and rhythm, normal S1 and S2 without murmur, rub or gallop. ABDOMEN: Soft, nontender, not distended, normoactive bowel sounds, no guarding, no rebound, no masses. No hepatomegaly or splenomegaly. MUSCULOSKELETAL: Normal range of motion at all joints. No bony deformities or tenderness. No CVA tenderness. UPPER EXTREMITIES: 2+ pulses, warm, well-perfused. No cyanosis. No clubbing. Cap refill <2 seconds. No peripheral edema. LOWER EXTREMITIES: 2+ pulses, warm, well-perfused. No calf tenderness. No peripheral edema. NEUROLOGICAL: RUE: 2/5, Cranial nerves II-XII intact. Normal speech. PSYCHIATRIC: Cooperative. Good eye contact. SKIN: Warm, dry, normal turgor, no rashes or lesions noted. Laboratory Results - last 24 hr 12/01/18 12/01/18 12/01/18 20:10 20:10 20:10 WBC 11.3 H RBC 3.50 L Hgb 10.8 L Hct 34.1 L MCV 97.5 H MCH 30.8 MCHC 31.6 L RDW 17.3 H Plt Count 384 D MPV 7.9 Absolute Neuts (auto) 8.7 H Neutrophils % 76.9 Lymphocytes % 15.0 Monocytes % 6.3 Eosinophils % 0.9 Basophils % 0.9 Nucleated RBC % 0 PT with INR INR Sodium 135 L Potassium 6.5 H* Chloride 106 Carbon Dioxide 24 Anion Gap 5 L BUN 22.0 H Creatinine 1.6 H Est GFR (CKD-EPI)AfAm 54.61 Est GFR (CKD-EPI)NonAf 47.12 Random Glucose 274 H Calcium 8.5 Total Bilirubin 0.7 AST 114 H ALT 137 H Alkaline Phosphatase 249 H Creatine Kinase 160 Creatine Kinase Index 1.1 CK-MB (CK-2) 1.8 Troponin I 0.07 H B-Natriuretic Peptide 5649.8 H Total Protein 6.8 Albumin 2.9 L 12/01/18 12/01/18 20:10 22:52 WBC RBC Hgb Hct MCV MCH MCHC RDW Plt Count MPV Absolute Neuts (auto) Neutrophils % Lymphocytes % Monocytes % Eosinophils % Basophils % Nucleated RBC % PT with INR 14.40 H INR 1.22 H Sodium 139 Potassium 3.7 Chloride 108 H Carbon Dioxide 25 Anion Gap 6 L BUN 21.6 H Creatinine 1.4 H Est GFR (CKD-EPI)AfAm 64.18 Est GFR (CKD-EPI)NonAf 55.38 Random Glucose 254 H Calcium 8.6 Total Bilirubin 0.8 AST 37 ALT 125 H Alkaline Phosphatase 243 H Creatine Kinase Creatine Kinase Index CK-MB (CK-2) Troponin I B-Natriuretic Peptide Total Protein 6.3 L Albumin 3.0 L ASSESSMENT/PLAN: Acute CVA Cocaine abuse Hypertensive Urgency HTN HLD DM S/P AMI with PCI Diastolic dysfunction COPD/asthma MAy IV therapy ffor MAP > 150 if sustained readings Can start Procardia after swallow has been assessed No smoking Monitor for withdrawal ECHO Carotids Antiplatelet to be started O2 as needed BD TX PRN Requires ICU monitoring for possible evolving CVA and close BP monitoring Dr Azar Critical care time spent in reviewing chart, evaluating patient and formulating plan - 36 minutes.
--- NOTE | 2018-12-02 12:10 | CONSULT ---
Admitting History and Physical - Primary Care Physician PCP: Marcie Noel - Admission History of Present Illness: Patient is a 58yo male with PMHx of HTN, cocaine use, HLP, CAD s/p KS , chronic diastolic CHF, COPD, nicotine dependence, DM , who presented with CP. He was found to have acute pulm edema with HTN emergency. Chronic right posterior temporal cortical infarct and chronic right frontal and right parietal cortical infarcts. Known to me from 07/2018 admission - CTA: 70 to 95% stenosis in the STEVEN 50 to 70% stenosis in the LICA Had right enarterectomy. Neuro- Assessment : Right sided hemiparesis with slurring of speech , history of cocaine abuse and noncompliant with his bp medication. Pending-mri of brain and carotid ultrasound History Source: Patient, Medical Record Limitations to Obtaining History: Clinical Condition - Past Medical History Cardiovascular: Yes: CAD (S/P PCI), HTN, Hyperlipdemia, KS, Other (dilated cardiomyopathy (nonischemic), LV systolic dysfunction, ) Pulmonary: Yes: Asthma Gastrointestinal: Yes: GERD Renal/: Yes: Renal Inusuff Musculoskeletal: Yes: Chronic low back pain - Smoking History Smoking history: Current every day smoker Have you smoked in the past 12 months: No Aproximately how many cigarettes per day: 2 If you are a former smoker, when did you quit?: smokes 2 x per week - Alcohol/Substance Use Hx Alcohol Use: Yes Number of Drinks Daily: 3 (beer) History of Substance Use: reports: Cocaine - Social History ADL: Independent Occupation: Employed History of Recent Travel: No History - Admission Reason For Visit: CHEST PAINS - Diagnostics X-ray: Report Reviewed CT Scan: Report Reviewed MRI: Pending - General Mental Status: Alert and Oriented, Awake and Alert, Able to Follow Commands Attention: Intact Ability to Follow Directions: Excellent Head/Neck Control: WFL - Hearing Hearing: Normal Speech Evaluation - Communication Primary Language: HAITIAN Communication: Yes: Within Normal Limits Oral Expression Ability: Yes: No Impairment - Speech Production Able to Make Needs Known: Yes: WNL Intelligibility: Yes: WNL - Speech Characteristics Voice Loudness: Normal Voice Pitch: Yes: Normal Voice Phonatory-based Quality: Yes: Normal Speech Pattern: Normal Speech Clarity: < 100% Nasal Resonance: Normal Articulation: Yes: Precise Rate of Speech: Intact - Language/Auditory Comprehension Follows: Yes: 2 Stage Simple Commands Observation: Able to respond to yes/no queries: Yes, Yes/No Confusion: No, Comprehends Conversational Speech: Yes - Language/Verbal Expression Able to Respond to Simple Queries: Yes: WNL Able to Communicate Wants and Needs: Yes: WNL Functional Communication Status: Yes: WNL - Memory/Perception FDC Memory: Yes: WNL Short Term Memory: Yes: WNL - Swallow Evaluation/Bedside Assessment Current Nutritional Intake: NPO, Other (receiving meds with water with good tolerance) Oral Secretions: Yes: WFL Dentition: Yes: Adequate, Missing Teeth Facial Symmetry at Rest: Symmetrical Facial Symmetry on Retraction: Symmetrical Facial Movement: Controlled Sensation: Normal Against Resistance Opening: Normal Against Resistance Closing: Normal Pucker Lips: Normal Smile: Normal Lingual Movement: Normal, Symmetric Lingual Speed of Movement: Normal Lingual Movement Strgth Against Opposition: Normal Lingual Movement Characteristics: Normal Velopharyngeal Movement: Normal Laryngeal Elevation: WFL Laryngeal Movement: Able to Palpate Rate of Intake: WFL Bolus Size: WFL Labial Seal: WFL Chewing: WFL Oral Prep Time: WFL A-P Transit: WFL Timing of Swallow: WFL Coughing/Throat Clear: No (3 oz water (-)) Change in Voice: No Recommendations - Speech Evaluation, Impression/Plan Impression: Right hemiparesis, spech.language, cognition, swallowing intact. - Disposition Discharge to: Rehabilitation Center, To be Determined - Dysphagia Impressions/Plan Swallowing Skills: WF Dysphagia Impressions: No Impairment *Silent aspiration: cannot be R/O at bedside Dysphagia Treatment Plan: Trial Feedings, Safe Rate, 1/2 tsp. at a time, Elevate HOB during feed - Recommendations Diet Consistency: Regular Medication Administration: Whole with water Liquids: Thin Liquids
--- NOTE | 2018-12-02 12:19 | EKG ---
Test Reason : Blood Pressure : / mmHG Vent. Rate : 104 BPM Atrial Rate : 104 BPM P-R Int : 166 ms QRS Dur : 096 ms QT Int : 372 ms P-R-T Axes : 056 043 074 degrees QTc Int : 489 ms SINUS TACHYCARDIA WITH FREQUENT PREMATURE VENTRICULAR COMPLEXES POSSIBLE LEFT ATRIAL ENLARGEMENT NONSPECIFIC T WAVE ABNORMALITY ABNORMAL ECG WHEN COMPARED WITH ECG OF 30-OCT-2018 09:42, PREMATURE VENTRICULAR COMPLEXES ARE NOW PRESENT Confirmed by ABHIJIT CHILDRESS, ROSEY ([id number]) on 12/02/2018 12:19:22 PM Referred By: Confirmed By:ROSEY LACEY MD
--- NOTE | 2018-12-02 12:20 | EKG ---
Test Reason : Blood Pressure : / mmHG Vent. Rate : 101 BPM Atrial Rate : 101 BPM P-R Int : 178 ms QRS Dur : 104 ms QT Int : 382 ms P-R-T Axes : 057 003 111 degrees QTc Int : 495 ms SINUS TACHYCARDIA WITH FREQUENT PREMATURE VENTRICULAR COMPLEXES POSSIBLE LEFT ATRIAL ENLARGEMENT NONSPECIFIC T WAVE ABNORMALITY ABNORMAL ECG WHEN COMPARED WITH ECG OF 30-OCT-2018 09:42, PREMATURE VENTRICULAR COMPLEXES ARE NOW PRESENT Confirmed by ABHIJIT CHILDRESS, ROSEY ([id number]) on 12/02/2018 12:20:22 PM Referred By: Confirmed By:ROSEY LACEY MD
--- NOTE | 2018-12-02 12:28 | CONSULT ---
Consult - text type - Consultation Consultation Note: Renal consult for CKD This is a 58 year old gentleman with history of Hypertension, hyperlipidemia, CAD s/p PCI and stenting, HF with diastolic dysfunction, COPD who presented to the ED with chest pain and noted to have right upper extremity weakness/CVA and hypertensive emergency. Pt known to have Cr that ranges from 1.3-1.5 but has had several episodes of GOGO in the past. Pt is groggy but awake. Denies any chest pain now. Arm continues to feel weak. Making urine. Denies any flank pain, dysuria. No Abd pain, fever or chills. Was allowed to have permissive hypertension due to suspected acute CVA. PMHx: as above Allergies: ACEi Family hx: NC Social Hx: + cocaine use history ROS: as per HPI Home Medications Medication Instructions Recorded Furosemide [Lasix -] 40 mg PO DAILY #30 tablet 07/02/18 Isosorbide Mononitrate [Imdur -] 60 mg PO DAILY #30 tab.sr.24h 07/02/18 Hydralazine HCl 100 mg PO TID 08/09/18 Atorvastatin Ca [Lipitor] 80 mg PO HS #30 tablet 08/17/18 Carvedilol [Coreg -] 25 mg PO BID #60 tablet 08/17/18 Spironolactone [Aldactone -] 50 mg PO DAILY #30 tablet 08/17/18 Aspirin Coated [Ecotrin -] 3.25 mg PO DAILY 10/19/18 Clopidogrel Bisulfate [Plavix] 75 mg PO DAILY 10/19/18 Cyclobenzaprine HCl 5 mg PO Q8H PRN #6 tablet 10/20/18 Methyl Salicylate/Menthol Oint 1 applic TP DAILY PRN #1 applic 10/20/18 [Analgesic Dawson -] Albuterol 0.083% Nebulizer Jane 1 amp NEB Q4H #10 amp 11/01/18 [Ventolin 0.083% Nebulizer Soln -] Furosemide [Lasix] 40 mg PO DAILY #90 tablet 11/01/18 Miscellaneous Medical Supply 1 each .ROUTE ASDIR #1 kit 11/03/18 [Glucometer Device] Miscellaneous Medical Supply 1 each .ROUTE ASDIR #1 box 11/03/18 [Glucometer Test Strips #100] Aspirin Coated [Ecotrin -] 81 mg PO DAILY tablet.ec 11/04/18 Furosemide [Lasix -] 40 mg PO DAILY tablet 11/04/18 Insulin (Levemir) [Levemir Vial] 30 units SQ 0700,2200 units 11/04/18 Insulin Sliding Scale [Novolog 1 vial SQ ACHS units 11/04/18 Vial Sliding Scale -] Nifedipine ER [Procardia XL -] 90 mg PO DAILY tab.er.24 11/04/18 Sitagliptin Phosphate [Januvia -] 25 mg PO DAILY@0700 #30 tab 11/04/18 predniSONE [Deltasone -] 10 mg PO DAILY #32 tablet 11/04/18 Vital Signs Temperature 98.8 F 12/02/18 04:29 Pulse Rate 92 H 12/02/18 08:50 Respiratory Rate 17 12/02/18 09:00 Blood Pressure 210/131 H 12/02/18 08:50 O2 Sat by Pulse Oximetry (%) 99 12/02/18 09:00 Intake & Output 11/29/18 11/30/18 12/01/18 12/02/18 23:59 23:59 23:59 23:59 Intake Total 25 Output Total 1700 800 Balance -1700 -775 Weight 108.862 kg 115.383 kg NAD awake and alert neck supple RRR CTA soft NT/ND no LE edema CBC, BMP 12/02/18 05:45 12/02/18 05:45 Current Medications Albuterol Sulfate (Ventolin 0.083% Nebulizer Soln -) 1 amp NEB Q6H PRN PRN Reason: SHORT OF BREATH/WHEEZING Aspirin (Ecotrin -) 81 mg PO DAILY [facility] Last Admin: 12/02/18 09:58 Dose: 81 mg Atorvastatin Calcium (Lipitor -) 80 mg PO HS P[facility] Clopidogrel Bisulfate (Plavix -) 75 mg PO DAILY [facility] Last Admin: 12/02/18 11:06 Dose: 75 mg Hydralazine HCl (Apresoline Injection -) 10 mg IVPUSH Q6H PRN PRN Reason: HYPERTENSION Ceftriaxone Sodium 1 gm/ (Dextrose) 50 mls @ 200 mls/hr IVPB DAILY [facility]; Protocol Last Admin: 12/02/18 09:57 Dose: 200 mls/hr Metronidazole (Flagyl 500mg Premixed Ivpb -) 500 mg in 100 mls @ 100 mls/hr IVPB Q8H-IV [facility] Last Admin: 12/02/18 11:41 Dose: 100 mls/hr Insulin Aspart (Novolog Vial Sliding Scale -) 1 vial SQ ACHS PUSHPA; Protocol Last Admin: 12/02/18 10:58 Dose: Not Given Lorazepam (Ativan Injection -) 2 mg IVPUSH Q2H PRN PRN Reason: AGITATION Pantoprazole Sodium (Protonix Iv) 40 mg IVPUSH DAILY [facility] Last Admin: 12/02/18 09:57 Dose: 40 mg 58 year old gentleman with history of Hypertension, hyperlipidemia, CAD s/p PCI and stenting, HF with diastolic dysfunction, COPD who presented to the ED with chest pain and noted to have right upper extremity weakness/CVA and hypertensive emergency. 1. Hypertensive emergency 2. 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 hyperlipidemia BP management as per Neurology recs. Typically allow permissive hypertension in first 24 hours. Would avoid beta blockers as pt has had recent cocaine use by toxicology screen Continue hydralzine IV PRN. can consider addition of oral CCB once stricter BP control is required Trend renal function and electrolytes continue statin Neurology and cardiology follow up Thank you David Gilmore DO
--- NOTE | 2018-12-02 13:06 | ECHO ---
Name: KEMAL GAN Exam:Adult Echocardiogram Study Date: 12/02/2018 07:51 AM Age: 58 yrs Reason For Study: evaluate cardiac function Height: 71 in Weight: 254 lb BSA: 2.3 m2 MMode/2D Measurements & Calculations IVSd: 1.4 cm Ao root diam: 3.1 cm LVIDd: 5.2 cm LA dimension: 4.7 cm LVIDs: 3.7 cm LVPWd: 1.4 cm LVPWs: 2.2 cm EDV(Teich): 128.4 ml ESV(Teich): 57.6 ml LVOT diam: 2.2 cm LAV (MOD-bp): 92.9 ml TAPSE: 1.9 cm RV S Kevin: 12.0 cm/sec Doppler Measurements & Calculations MVA(VTI): 2.2 cm2 MV E max kevin: 141.0 cm/sec MV V2 max: 131.0 cm/sec MV A max kevin: 70.4 cm/sec MV max P.9 mmHg MV E/A: 2.0 MV V2 mean: 82.7 cm/sec MV dec time: 0.12 sec MV mean P.3 mmHg MV V2 VTI: 25.8 cm Ao V2 max: 175.6 cm/sec AI max kevin: 388.2 cm/sec Ao max P.3 mmHg AI max P.7 mmHg Ao V2 mean: 131.7 cm/sec Ao mean P.8 mmHg AI dec slope: 249.8 cm/sec2 Ao V2 VTI: 31.1 cm MONIKA(I,D): 1.8 cm2 AI P1/2t: 455.2 msec MONIKA(V,D): 2.1 cm2 LV V1 max P.8 mmHg MR max kevin: 663.3 cm/sec LV V1 mean P.0 mmHg MR max P.3 mmHg LV V1 max: 97.4 cm/sec LV V1 mean: 62.7 cm/sec LV V1 VTI: 14.8 cm SV(LVOT): 57.2 ml TR max kevin: 296.8 cm/sec TR max P.2 mmHg PA V2 max: 96.4 cm/sec Med Peak E' Kevin: 5.1 cm/sec PA max P.7 mmHg Med E/e': 27.6 Lat Peak E' Kevin: 6.7 cm/sec Lat E/e': 20.9 Procedure A complete two-dimensional transthoracic echocardiogram was performed (2D, M-mode, Doppler and color flow Doppler). Left Ventricle There is moderate concentric left ventricular hypertrophy. The left ventricular ejection fraction is normal. Ejection Fraction = 55-60%. The left ventricular wall motion is normal. Right Ventricle The right ventricle is normal in size and function. Atria The left atrium is mildly dilated. The right atrium is mildly dilated. Mitral Valve There is mild mitral regurgitation. Tricuspid Valve There is mild tricuspid regurgitation. Right ventricular systolic pressure is normal. Aortic Valve No hemodynamically significant valvular aortic stenosis. Mild aortic regurgitation. Pulmonic Valve There is no pulmonic valvular regurgitation. Great Vessels The aortic root is normal size. Pericardium/Pleura There is no pericardial effusion. Interpretation Summary There is moderate concentric left ventricular hypertrophy. The left ventricular ejection fraction is normal. The right ventricle is normal in size and function. The left atrium is mildly dilated. The right atrium is mildly dilated. There is mild mitral regurgitation. There is mild tricuspid regurgitation. Mild aortic regurgitation. MD Ryan Jin 12/02/2018 01:05 PM
--- NOTE | 2018-12-02 16:14 | PN ---
Progress Note (short form) - Note Progress Note: Patient found to have a BP: 202/145 (MAP 161), associated with chest pressure at this time. Call placed to cardiology who recommends carvedilol 25 BID initiation at this time given procardia 30mg failed to work earlier. Will send trop and stat ekg for patient as well.
[2018-12-02] MEDS ORDERED: CARVEDILOL 25 MG TABLET (FP) PO SCH (16:15)
[2018-12-02] MEDS ORDERED: NIFEdipine 10 MG CAPSULE (FP) PO ONE ×2 (17:13→17:15)
--- NOTE | 2018-12-02 17:18 | PN ---
Physical Exam: SUBJECTIVE: Patient seen and examined at the bedside, there were no acute events overnight, patient still extremely hypertensive. OBJECTIVE: Vital Signs Period Temp Pulse Resp BP Sys/Caal Pulse Ox Last 24 Hr 97.7 F-98.9 F 83-108 17-28 92-218/60-145 95-99 GENERAL: The patient is awake, alert, and fully oriented, in no acute distress. HEAD: Normal with no signs of trauma. EYES: PERRL, extraocular movements intact, sclera anicteric, conjunctiva clear. ENT: Ears normal, oropharynx clear without exudates, moist mucous membranes. NECK: Trachea midline, full range of motion, supple. LUNGS: Breath sounds equal, clear to auscultation bilaterally, no wheezes, no crackles, no accessory muscle use. HEART: Regular rate and rhythm, S1, S2 without murmur, rub or gallop. ABDOMEN: Soft, NT,ND, normoactive bowel sounds, no guarding, no rebound, no hepatosplenomegaly, no masses. EXTREMITIES: 2+ pulses, warm, well-perfused, 2+ edema. NEUROLOGICAL: Cranial nerves II through XII grossly intact. Normal speech now , gait not observed. R sided weakness and decreased R sided facial sensation compared to L. PSYCH: Normal mood, normal affect. SKIN: Warm, dry, normal turgor, no rashes or lesions noted Laboratory Results - last 24 hr 12/01/18 12/01/18 12/01/18 20:10 20:10 20:10 WBC 11.3 H RBC 3.50 L Hgb 10.8 L Hct 34.1 L MCV 97.5 H MCH 30.8 MCHC 31.6 L RDW 17.3 H Plt Count 384 D MPV 7.9 Absolute Neuts (auto) 8.7 H Neutrophils % 76.9 Neutrophils % (Manual) Band Neutrophils % Lymphocytes % 15.0 Lymphocytes % (Manual) Monocytes % 6.3 Monocytes % (Manual) Eosinophils % 0.9 Eosinophils % (Manual) Basophils % 0.9 Basophils % (Manual) Myelocytes % (Man) Promyelocytes % (Man) Blast Cells % (Manual) Nucleated RBC % 0 Metamyelocytes Hypochromia Platelet Estimate Polychromasia Poikilocytosis Anisocytosis Microcytosis Macrocytosis PT with INR INR Sodium 135 L Potassium 6.5 H* Chloride 106 Carbon Dioxide 24 Anion Gap 5 L BUN 22.0 H Creatinine 1.6 H Est GFR (CKD-EPI)AfAm 54.61 Est GFR (CKD-EPI)NonAf 47.12 POC Glucometer Random Glucose 274 H Lactic Acid Calcium 8.5 Phosphorus Magnesium Total Bilirubin 0.7 AST 114 H ALT 137 H Alkaline Phosphatase 249 H Creatine Kinase 160 Creatine Kinase Index 1.1 CK-MB (CK-2) 1.8 Troponin I 0.07 H B-Natriuretic Peptide 5649.8 H Total Protein 6.8 Albumin 2.9 L Opiates Screen Methadone Screen Barbiturate Screen Phencyclidine Screen Ur Amphetamines Screen MDMA (Ecstasy) Screen Benzodiazepines Screen Cocaine Screen U Marijuana (THC) Screen 12/01/18 12/01/18 12/02/18 20:10 22:52 00:30 WBC RBC Hgb Hct MCV MCH MCHC RDW Plt Count MPV Absolute Neuts (auto) Neutrophils % Neutrophils % (Manual) Band Neutrophils % Lymphocytes % Lymphocytes % (Manual) Monocytes % Monocytes % (Manual) Eosinophils % Eosinophils % (Manual) Basophils % Basophils % (Manual) Myelocytes % (Man) Promyelocytes % (Man) Blast Cells % (Manual) Nucleated RBC % Metamyelocytes Hypochromia Platelet Estimate Polychromasia Poikilocytosis Anisocytosis Microcytosis Macrocytosis PT with INR 14.40 H INR 1.22 H Sodium 139 Potassium 3.7 Chloride 108 H Carbon Dioxide 25 Anion Gap 6 L BUN 21.6 H Creatinine 1.4 H Est GFR (CKD-EPI)AfAm 64.18 Est GFR (CKD-EPI)NonAf 55.38 POC Glucometer Random Glucose 254 H Lactic Acid Calcium 8.6 Phosphorus Magnesium Total Bilirubin 0.8 AST 37 ALT 125 H Alkaline Phosphatase 243 H Creatine Kinase Creatine Kinase Index CK-MB (CK-2) Troponin I B-Natriuretic Peptide Total Protein 6.3 L Albumin 3.0 L Opiates Screen Positive A* Methadone Screen Negative Barbiturate Screen Negative Phencyclidine Screen Negative Ur Amphetamines Screen Negative MDMA (Ecstasy) Screen Negative Benzodiazepines Screen Negative Cocaine Screen Positive A* U Marijuana (THC) Screen Negative 12/02/18 12/02/18 12/02/18 05:45 05:45 05:45 WBC 9.0 RBC 3.51 L Hgb 11.1 L Hct 33.9 L MCV 96.7 H MCH 31.5 MCHC 32.6 RDW 17.2 H Plt Count 365 MPV 7.4 L Absolute Neuts (auto) 7.0 Neutrophils % 77.4 Neutrophils % (Manual) 72.0 Band Neutrophils % 0.0 Lymphocytes % 13.1 Lymphocytes % (Manual) 16.0 D Monocytes % 7.0 Monocytes % (Manual) 11 H D Eosinophils % 1.8 D Eosinophils % (Manual) 1.0 D Basophils % 0.7 Basophils % (Manual) 0.0 Myelocytes % (Man) 0 Promyelocytes % (Man) 0 Blast Cells % (Manual) 0 Nucleated RBC % 0 Metamyelocytes 0 Hypochromia 0 Platelet Estimate Normal Polychromasia 2+ Poikilocytosis 0 Anisocytosis 1+ Microcytosis 0 Macrocytosis 1+ PT with INR INR Sodium 142 Potassium 3.6 Chloride 108 H Carbon Dioxide 28 Anion Gap 6 L BUN 17.3 Creatinine 1.2 Est GFR (CKD-EPI)AfAm 77.33 Est GFR (CKD-EPI)NonAf 66.72 POC Glucometer Random Glucose 219 H Lactic Acid 1.0 Calcium 8.9 Phosphorus 3.3 Magnesium 1.6 L Total Bilirubin 0.9 AST 27 ALT 116 H Alkaline Phosphatase 236 H Creatine Kinase Creatine Kinase Index CK-MB (CK-2) Troponin I 0.06 H B-Natriuretic Peptide Total Protein 6.4 Albumin 2.9 L Opiates Screen Methadone Screen Barbiturate Screen Phencyclidine Screen Ur Amphetamines Screen MDMA (Ecstasy) Screen Benzodiazepines Screen Cocaine Screen U Marijuana (THC) Screen 12/02/18 12/02/18 12/02/18 06:02 09:55 10:56 WBC RBC Hgb Hct MCV MCH MCHC RDW Plt Count MPV Absolute Neuts (auto) Neutrophils % Neutrophils % (Manual) Band Neutrophils % Lymphocytes % Lymphocytes % (Manual) Monocytes % Monocytes % (Manual) Eosinophils % Eosinophils % (Manual) Basophils % Basophils % (Manual) Myelocytes % (Man) Promyelocytes % (Man) Blast Cells % (Manual) Nucleated RBC % Metamyelocytes Hypochromia Platelet Estimate Polychromasia Poikilocytosis Anisocytosis Microcytosis Macrocytosis PT with INR INR Sodium Potassium Chloride Carbon Dioxide Anion Gap BUN Creatinine Est GFR (CKD-EPI)AfAm Est GFR (CKD-EPI)NonAf POC Glucometer 199 150 Random Glucose Lactic Acid Calcium Phosphorus Magnesium Total Bilirubin AST ALT Alkaline Phosphatase Creatine Kinase Creatine Kinase Index CK-MB (CK-2) Troponin I 0.06 H B-Natriuretic Peptide Total Protein Albumin Opiates Screen Methadone Screen Barbiturate Screen Phencyclidine Screen Ur Amphetamines Screen MDMA (Ecstasy) Screen Benzodiazepines Screen Cocaine Screen U Marijuana (THC) Screen 12/02/18 16:33 WBC RBC Hgb Hct MCV MCH MCHC RDW Plt Count MPV Absolute Neuts (auto) Neutrophils % Neutrophils % (Manual) Band Neutrophils % Lymphocytes % Lymphocytes % (Manual) Monocytes % Monocytes % (Manual) Eosinophils % Eosinophils % (Manual) Basophils % Basophils % (Manual) Myelocytes % (Man) Promyelocytes % (Man) Blast Cells % (Manual) Nucleated RBC % Metamyelocytes Hypochromia Platelet Estimate Polychromasia Poikilocytosis Anisocytosis Microcytosis Macrocytosis PT with INR INR Sodium Potassium Chloride Carbon Dioxide Anion Gap BUN Creatinine Est GFR (CKD-EPI)AfAm Est GFR (CKD-EPI)NonAf POC Glucometer 208 Random Glucose Lactic Acid Calcium Phosphorus Magnesium Total Bilirubin AST ALT Alkaline Phosphatase Creatine Kinase Creatine Kinase Index CK-MB (CK-2) Troponin I B-Natriuretic Peptide Total Protein Albumin Opiates Screen Methadone Screen Barbiturate Screen Phencyclidine Screen Ur Amphetamines Screen MDMA (Ecstasy) Screen Benzodiazepines Screen Cocaine Screen U Marijuana (THC) Screen Active Medications Generic Name Dose Route Start Last Admin Trade Name Freq PRN Reason Stop Dose Admin Albuterol Sulfate 1 amp 12/02/18 11:21 Ventolin 0.083% Nebulizer Soln - NEB Q6H PRN SHORT OF BREATH/WHEEZING Aspirin 81 mg 12/02/18 10:00 12/02/18 09:58 Ecotrin - PO 81 mg DAILY PUSHPA Administration Atorvastatin Calcium 80 mg 12/02/18 22:00 Lipitor - PO HS PUSHPA Clopidogrel Bisulfate 75 mg 12/02/18 10:00 12/02/18 11:06 Plavix - PO 75 mg DAILY PUSHPA Administration Ceftriaxone Sodium 1 gm/ 50 mls @ 200 mls/hr 12/02/18 10:00 12/02/18 09:57 Dextrose IVPB 200 mls/hr DAILY PUSHPA Administration Protocol Metronidazole 500 mg in 100 mls @ 100 mls/hr 12/02/18 10:00 12/02/18 11:41 Flagyl 500mg Premixed Ivpb - IVPB 100 mls/hr Q8H-IV PUSHPA Administration Insulin Aspart 1 vial 12/02/18 07:00 12/02/18 16:36 Novolog Vial Sliding Scale - SQ 4 applic ACHS PUSHPA Administration Protocol Lorazepam 2 mg 12/02/18 05:55 Ativan Injection - IVPUSH Q2H PRN AGITATION Pantoprazole Sodium 40 mg 12/02/18 10:00 12/02/18 09:57 Protonix Iv IVPUSH 40 mg DAILY PUSHPA Administration Imaging: CT Chest, Abd/ pel:The thoracoabdominal aorta demonstrates no CT evidence of dissection. As on the prior CT exam of 04/16/2018 there is stable fusiform aneurysmal dilatation of the infrarenal aorta with a 4.3 cm diameter. Interval development of mild pericolonic soft tissue edema is noted adjacent to the mid and lower thirds of the descending colon as well as the upper third of the sigmoid colon. There is possible associated mild concentric wall thickening along the same region. Numerous diverticula are seen. On the basis of the current exam it is uncertain whether these findings are due to acute colitis ( ischemic versus inflammatory/infectious) or acute uncomplicated diverticulitis. Correlate clinically. Development of a very small amount of free fluid is seen within the abdomen and pelvis. 0.7 x 0.2 cm nonobstructing right renal calculus. In comparison to a chest CT exam of 11/02/2018 interval development of small bilateral pleural effusions is noted as well as mild increase concentric subcutaneous soft tissue stranding at the level of the abdomen and pelvis. Note is again made of minimal to mild bilateral pneumonitis groundglass interstitial opacity which may be mildly increased - ? due to vascular congestion. Increased nonspecific mediastinal lymphadenopathy is noted. Mild cardiomegaly. Note is again made of dilatation of the main pulmonary artery with a 4.3 cm diameter consistent with debris hypertension. A 2 mm right upper lobe nodule noted on the previous exam is difficult to visualize on the current exam. Correlate with 3-4 month follow-up CT Head CT: No CT evidence of intracranial hemorrhage. A chronic right posterior temporal cortical infarct is noted which was not present at the time of a CT exam of 08/06/2018. Note is again made of chronic right frontal and right parietal cortical infarcts. ASSESSMENT/PLAN: 58 y.o. M PMH HTN, DM2, HLD, CAD s/p 3x MN, COPD/asthma, R carotid stenosis s/p endarterectomy 07/2018, diastolic CHF, CKD, TIA, stable AAA, cocaine and alcohol abuse presenting with chest pain. #CVA vs. HTN encephalopathy - NIHSS 8 - Permissive HTN but per neurology, suggest treating bp if above 220/120 - Continue Atorvastatin 80mg daily, asa 81mg daily, plavix 75mg daily - F/u Brain MRI w/o contrast, carotid doppler, echo - Neuro consulted (Dr. Kent), appreciate recommendations - PT, speech and dvt prophylaxis - stroke education - cessation of drug abuse #Hypertensive emergency - Cardiology consulted, appreciate recommendations - Wean Cardene gtt - f/u echo to assess ventricular and valve fxn, mri of brain and carotid ultrasound - Holding home anti HTN meds to allow permissive HTN - F/u repeat trop & EKG #Colitis -Protonix 40mg IV daily -GI consulted (Dr. Lowe) -Hold steroids at this time; recently completed course on last d/c 1 month ago #CHF -BNP 5649.8 (6880 1 mo ago) -Hold lasix to allow for permissive HTN -daily weights -Is & Os #GOGO on CKD- resolved -Dr. Gilmore (nephro)consulted, appreciate recommendations - Continue hydralzine IV PRN. can consider addition of oral CCB once stricter BP control is required - Trend renal function and electrolytes continue statin - Avoid nephrotoxic medications - avoid beta blockers as pt has had recent cocaine use by toxicology screen #DM type 2 -ISS -BGMs #Transaminitis -Hepatitis panel neg as per 07/2018 labs -F/u AM labs -F/u RUQ U/S #Polysubstance abuse -PRN ativan if withdrawal -Utox + for cocaine, opioids (given morphine in ED) #FEN -No standing fluids -Trend lytes, replete PRN -NPO #DVT PPX -SCDs #Dispo ICU Visit type - Emergency Visit Emergency Visit: Yes ED Registration Date: 12/01/18 Care time: The patient presented to the Emergency Department on the above date and was hospitalized for further evaluation of their emergent condition. - New Patient This patient is new to me today: No - Critical Care Critical Care patient: Yes Total Critical Care Time (in minutes): 40 Critical Care Statement: The care of this patient involved high complexity decision making to prevent further life threatening deterioration of the patient 's condition and/or to evaluate & treat vital organ system(s) failure or risk of failure. - Discharge Referral Referred to [facility] No ATTENDING PHYSICIAN STATEMENT I saw and evaluated the patient. I reviewed the resident's note and discussed the case with the resident. I agree with the resident's findings and plan as documented. SUBJECTIVE: OBJECTIVE: ASSESSMENT AND PLAN:
[2018-12-02] MEDS ORDERED: PT OWN MED DRAWER 7, Y5N ONE (21:51)
[2018-12-02] MEDS: hydrALAZINE HCL 50 MG TABLET (FP) PO SCH (21:52)
[2018-12-02] MEDS: CARVEDILOL 25 MG TABLET (FP) PO SCH (21:52)
[2018-12-02] MEDS ORDERED: ATORVASTATIN CA 80 MG TABLET (FP) PO SCH ×2 (22:00)
[2018-12-03] MEDS: ALBUTEROL SO4 0.083% IH SOL 2.5 MG/3 ML VIAL.NEB. NEB PRN ×2 (01:39→06:12)
[2018-12-03 05:55] LABS: EPI CELLS 1.4 /HPF (0-5/HPF); HYALINE CASTS 2 /lpf (0-8); PH,URINE 5.5 (5.0-8.0); URINE APPEARANCE CLEAR; URINE BACTERIA 2.4 /hpf (NEGATIVE); URINE BILIRUBIN NEGATIVE (NEGATIVE); URINE COLOR YELLOW; URINE GLUCOSE (UA) TRACE (NEGATIVE); URINE KETONE NEGATIVE (NEGATIVE); URINE LEUK ESTERASE NEGATIVE (NEGATIVE); URINE NITRITE NEGATIVE (NEGATIVE); URINE PROTEIN 2+ (NEGATIVE); URINE RBC 1 /hpf (0-4); URINE UROBILINOGEN 0.2 mg/dL (0.2-1.0); URINE WBC 1 /hpf (0-5)
[2018-12-03] MEDS: INSULIN SLIDING SCALE (NOVOLOG) 1 VIAL SQ SCH ×4 (06:00→22:16)
[2018-12-03] MEDS: hydrALAZINE HCL 50 MG TABLET (FP) PO SCH ×3 (06:01→19:53)
[2018-12-03 07:10] LABS: EOS % 1.1 % (0-4.5); HEMATOCRIT 34.3 % (35.4-49); HEMOGLOBIN 10.9 GM/dL (11.7-16.9); LYMPH % 15.5 % (8-40); MCH 31.2 pg (25.7-33.7); MCHC 31.8 g/dl (32.0-35.9); MEAN CELL VOLUME 98.1 fl (80-96); MEAN PLT VOLUME 7.7 fl (7.5-11.1); MONO % 8.3 % (3.8-10.2); NEUT % 74.1 % (42.8-82.8); PLATELET COUNT 322 K/MM3 (134-434); RBC 3.49 M/mm3 (4.00-5.60); RDW 17.3 % (11.9-15.9); WHITE BLOOD COUNT 8.5 K/mm3 (4.0-10.0)
[2018-12-03 07:30] LABS: ALBUMIN 2.8 g/dl (3.4-5.0); BILIRUBIN,TOTAL 0.7 mg/dL (0.2-1); BLOOD UREA NITROGEN 18.5 mg/dL (7-18); CALCIUM 8.7 mg/dL (8.5-10.1); CREATININE 1.4 mg/dL (0.55-1.3); MAGNESIUM 1.7 mg/dL (1.8-2.4); POTASSIUM 3.6 mmol/L (3.5-5.1)
[2018-12-03] MEDS ORDERED: MAGNESIUM SULF 50% (8.12 MEQ/2 ML-1 GM VIAL) IVPB ONE (07:35)
[2018-12-03] MEDS ORDERED: ALBUTEROL SO4 0.083% IH SOL 2.5 MG/3 ML VIAL.NEB. NEB PRN ×2 (07:37→16:52)
[2018-12-03] MEDS ORDERED: cefTRIAXone SODIUM 1 GM VIAL ONE (08:09)
[2018-12-03] MEDS ORDERED: DEXTROSE 5%-WATER - 50 ML IVPB ONE (08:09)
[2018-12-03] MEDS ORDERED: PT OWN MED DRAWER 7, Y5N ONE (08:11)
--- NOTE | 2018-12-03 08:48 | PN ---
Teaching Attending Note Name of Resident: Graciela Ames ATTENDING PHYSICIAN STATEMENT I saw and evaluated the patient. I reviewed the resident's note and discussed the case with the resident. I agree with the resident's findings and plan as documented. SUBJECTIVE: Patient is feeling better , still mild labored breathing. BP is improving , still reports right UE weakness, but slurring of speech has resolved. Patient is sitting on the chair. OBJECTIVE: Vital Signs Temperature 98.1 F 12/03/18 06:00 Pulse Rate 80 12/03/18 07:49 Respiratory Rate 21 H 12/03/18 07:49 Blood Pressure 152/120 H 12/03/18 07:49 O2 Sat by Pulse Oximetry (%) 98 12/02/18 21:00 GENERAL: The patient is awake, alert, and fully oriented, in no acute distress. HEAD: Normal with no signs of trauma. EYES: PERRL, extraocular movements intact, sclera anicteric, conjunctiva clear. ENT: Ears normal, oropharynx clear without exudates, moist mucous membranes. NECK: Trachea midline, full range of motion, supple. LUNGS: Breath sounds equal, clear to auscultation bilaterally, no wheezes, no crackles, no accessory muscle use. HEART: Regular rate and rhythm, S1, S2 without murmur, rub or gallop. ABDOMEN: Soft, NT,ND, normoactive bowel sounds, no guarding, no rebound, no hepatosplenomegaly, no masses. EXTREMITIES: 2+ pulses, warm, well-perfused, no edema. NEUROLOGICAL: Cranial nerves II through XII grossly intact. Normal speech now , gait not observed. PSYCH: Normal mood, normal affect. SKIN: Warm, dry, normal turgor, no rashes or lesions noted WBC 8.5 K/mm3 (4.0-10.0) 12/03/18 06:35 RBC 3.49 M/mm3 (4.00-5.60) L 12/03/18 06:35 Hgb 10.9 GM/dL (11.7-16.9) L 12/03/18 06:35 Hct 34.3 % (35.4-49) L 12/03/18 06:35 MCV 98.1 fl (80-96) H 12/03/18 06:35 MCHC 31.8 g/dl (32.0-35.9) L 12/03/18 06:35 RDW 17.3 % (11.9-15.9) H 12/03/18 06:35 Plt Count 322 K/MM3 (134-434) 12/03/18 06:35 MPV 7.7 fl (7.5-11.1) 12/03/18 06:35 CMP Sodium 139 mmol/L (136-145) 12/03/18 06:35 Potassium 3.6 mmol/L (3.5-5.1) 12/03/18 06:35 Chloride 104 mmol/L (98-107) 12/03/18 06:35 Carbon Dioxide 26 mmol/L (21-32) 12/03/18 06:35 Anion Gap 9 MMOL/L (8-16) 12/03/18 06:35 BUN 18.5 mg/dL (7-18) H 12/03/18 06:35 Creatinine 1.4 mg/dL (0.55-1.3) H 12/03/18 06:35 Random Glucose 223 mg/dL (74-106) H 12/03/18 06:35 Calcium 8.7 mg/dL (8.5-10.1) 12/03/18 06:35 Total Bilirubin 0.7 mg/dL (0.2-1) 12/03/18 06:35 AST 40 U/L (15-37) H 12/03/18 06:35 ALT 102 U/L (13-61) H 12/03/18 06:35 Alkaline Phosphatase 221 U/L (45-117) H 12/03/18 06:35 Total Protein 6.0 g/dl (6.4-8.2) L 12/03/18 06:35 Albumin 2.8 g/dl (3.4-5.0) L 12/03/18 06:35 CARDIAC ENZYMES Creatine Kinase 160 U/L (26-308) 12/01/18 20:10 Troponin I 0.06 ng/ml (0.00-0.05) H 12/02/18 18:30 Current Medications Generic Name Dose Route Start Last Admin Trade Name Freq PRN Reason Stop Dose Admin Albuterol Sulfate 1 amp 12/03/18 07:37 Ventolin 0.083% Nebulizer Soln - NEB RQID PRN SHORT OF BREATH/WHEEZING Aspirin 81 mg 12/03/18 10:00 Ecotrin - PO DAILY PUSHPA Carvedilol 25 mg 12/02/18 22:00 12/02/18 21:52 Coreg - PO 25 mg BID PUSHPA Administration Clopidogrel Bisulfate 75 mg 12/02/18 10:00 12/02/18 11:06 Plavix - PO 75 mg DAILY PUSHPA Administration Hydralazine HCl 100 mg 12/02/18 22:00 12/03/18 06:01 Apresoline - PO 100 mg TID PUSHPA Administration Ceftriaxone Sodium 1 gm/ 50 mls @ 200 mls/hr 12/02/18 10:00 12/02/18 09:57 Dextrose IVPB 200 mls/hr DAILY PUSHPA Administration Protocol Metronidazole 500 mg in 100 mls @ 100 mls/hr 12/02/18 10:00 12/03/18 02:45 Flagyl 500mg Premixed Ivpb - IVPB 100 mls/hr Q8H-IV PUSHPA Administration Insulin Aspart 1 vial 12/02/18 07:00 12/03/18 06:00 Novolog Vial Sliding Scale - SQ 2 units ACHS PUSHPA Administration Protocol Lorazepam 2 mg 12/02/18 05:55 Ativan Injection - IVPUSH Q2H PRN AGITATION Nifedipine 30 mg 12/03/18 10:00 Procardia Xl - PO DAILY PUSHPA Pantoprazole Sodium 40 mg 12/02/18 10:00 12/02/18 09:57 Protonix Iv IVPUSH 40 mg DAILY PUSHPA Administration Home Medications Medication Instructions Recorded Isosorbide Mononitrate [Imdur -] 60 mg PO DAILY #30 tab.sr.24h 07/02/18 Hydralazine HCl 100 mg PO TID 08/09/18 Atorvastatin Ca [Lipitor] 80 mg PO HS #30 tablet 08/17/18 Carvedilol [Coreg -] 25 mg PO BID #60 tablet 08/17/18 Spironolactone [Aldactone -] 50 mg PO DAILY #30 tablet 08/17/18 Clopidogrel Bisulfate [Plavix] 75 mg PO DAILY 10/19/18 Cyclobenzaprine HCl 5 mg PO Q8H PRN #6 tablet 10/20/18 Methyl Salicylate/Menthol Oint 1 applic TP DAILY PRN #1 applic 10/20/18 [Analgesic [place] -] Albuterol 0.083% Nebulizer Jane 1 amp NEB Q4H #10 amp 11/01/18 [Ventolin 0.083% Nebulizer Soln -] Miscellaneous Medical Supply 1 each .ROUTE ASDIR #1 kit 11/03/18 [Glucometer Device] Miscellaneous Medical Supply 1 each .ROUTE ASDIR #1 box 11/03/18 [Glucometer Test Strips #100] Aspirin Coated [Ecotrin -] 81 mg PO DAILY tablet.ec 11/04/18 Furosemide [Lasix -] 40 mg PO DAILY tablet 11/04/18 Insulin (Levemir) [Levemir Vial] 30 units SQ 0700,2200 units 11/04/18 Insulin Sliding Scale [Novolog 1 vial SQ ACHS units 11/04/18 Vial Sliding Scale -] Nifedipine ER [Procardia XL -] 90 mg PO DAILY tab.er.24 11/04/18 Sitagliptin Phosphate [Januvia -] 25 mg PO DAILY@0700 #30 tab 11/04/18 Us of carotids: small to moderate size soft plaque at the right common carotid bifurcation/bulb without evidence of significant stenosis. ASSESSMENT AND PLAN: Patient is a 58yo male with PMHx of HTN, cocaine use, HLP, CAD s/p ND , chronic diastolic CHF, COPD, nicotine dependence, DM , who presented with CP. He was found to have acute pulm edema with HTN emergency. #Hypertensive Emergency: s/p cardene drip, continue with hydralazine po, procardia xl, #Chronic right posterior temporal cortical infarct and chronic right frontal and right parietal cortical infarcts.on Lipitor 80mg hs, will add aspirin once Bp below 180 # Polysubstance abuse: detox consult , patient was informed that if he does not stop , he can damage all his organs. #Right maxillary sinus mucus retention cyst/polyp # Hx of CAD: continue home meds, plavix/asa/lipitor/imdur 60mg #Hx of HLD : continue lipitor #T2DM on levemir 30 ( home dose 30 BID) , cont SSI #Hx of R Carotid artery stenosis (95% blockage) s/p endarterectomy by dr. Johnson #chronic diastolic heart failure : Continue lasix, spironolactone 50mg , coreg 25mg bid #COPD: on Nebulizer txments. # Acute colitis (ischemic vs inflammatory/infectious) /acute uncomplicated diverticulitis: on IV antibiotic will treat him one more day and dc #Infrarenal aortic aneurysm: 4.3 cm in diameter ; will have Johnson evaluate the patient # Right renal calculus: nonobstructing 0.7x0.2cm continue hydration #Mediastinal lymphadenopathy increased; nonspecific DVT PX :SCds for now heparin sq Dysphagia screening. follow MRI
[2018-12-03] MEDS: PANTOPRAZOLE SODIUM 40 MG VIAL IVPUSH SCH (09:12)
[2018-12-03] MEDS: CLOPIDOGREL BISULFATE 75 MG TABLET (FP) PO SCH (09:12)
[2018-12-03] MEDS: CARVEDILOL 25 MG TABLET (FP) PO SCH ×2 (09:12→19:53)
[2018-12-03] MEDS: CEFTRIAXONE 1 GM in DEXTROSE 5%-WATER - 50 ML IVPB SCH (09:13)
--- NOTE | 2018-12-03 09:32 | PN ---
Progress Note, JUDGE - Note Progress Note: Right facial weakness mostly resolved. R side weakness pt says is the same. Pending MRI. Tolerating diet well. Selected Entries 12/02/18 12/02/18 12/02/18 04:29 10:00 14:00 Diet Tolerated Supper Temperature 98.8 F 97.8 F 97.9 F 12/02/18 12/02/18 12/02/18 18:00 20:00 22:00 Diet Tolerated Supper Temperature 98 F 98.2 F 98.2 F 12/02/18 12/03/18 12/03/18 22:41 00:00 00:39 Diet Tolerated Well Well Supper 100% 100% Temperature 98.5 F 12/03/18 12/03/18 12/03/18 00:48 04:00 06:00 Diet Tolerated Supper Temperature 98.4 F 98.1 F 98.1 F Laboratory Tests 12/03/18 06:35 WBC 8.5 No further f/u indicated.
[2018-12-03] MEDS ORDERED: CLOPIDOGREL BISULFATE 75 MG TABLET (FP) PO SCH (10:00)
[2018-12-03] MEDS ORDERED: NIFEdipine E.R. 90 MG TABLET (FP) PO SCH (10:00)
[2018-12-03] MEDS ORDERED: ASPIRIN COATED 81 MG TABLET.EC PO SCH (10:00)
[2018-12-03] MEDS ORDERED: NIFEdipine E.R. 30 MG TABLET (FP) PO SCH (10:00)
[2018-12-03] MEDS ORDERED: SPIRONOLACTONE 25 MG TABLET (FP) PO SCH (10:00)
[2018-12-03] MEDS ORDERED: ISOSORBIDE MONONITRATE 60 MG TAB.SR.24H (FP) PO SCH (10:00)
--- NOTE | 2018-12-03 10:26 | PN ---
Progress Note, Physician History of Present Illness: Chest pain, SOB, abdominal distension, hypertensive urgency improving, still reports right UE weakness, but slurring of speech has resolved. Now OOB to chair. - Current Medication List Current Medications: Active Medications Albuterol Sulfate (Ventolin 0.083% Nebulizer Soln -) 1 amp NEB RQID PRN PRN Reason: SHORT OF BREATH/WHEEZING Aspirin (Ecotrin -) 81 mg PO DAILY [facility] Last Admin: 12/03/18 09:12 Dose: 81 mg Carvedilol (Coreg -) 25 mg PO BID [facility] Last Admin: 12/03/18 09:12 Dose: 25 mg Clopidogrel Bisulfate (Plavix -) 75 mg PO DAILY [facility] Last Admin: 12/03/18 09:12 Dose: 75 mg Hydralazine HCl (Apresoline -) 100 mg PO TID [facility] Last Admin: 12/03/18 06:01 Dose: 100 mg Ceftriaxone Sodium 1 gm/ (Dextrose) 50 mls @ 200 mls/hr IVPB DAILY [facility]; Protocol Last Admin: 12/03/18 09:13 Dose: 200 mls/hr Metronidazole (Flagyl 500mg Premixed Ivpb -) 500 mg in 100 mls @ 100 mls/hr IVPB Q8H-IV [facility] Last Admin: 12/03/18 09:38 Dose: 100 mls/hr Insulin Aspart (Novolog Vial Sliding Scale -) 1 vial SQ ACHS [facility]; Protocol Last Admin: 12/03/18 06:00 Dose: 2 units Lorazepam (Ativan Injection -) 2 mg IVPUSH Q2H PRN PRN Reason: AGITATION Nifedipine (Procardia Xl -) 30 mg PO DAILY [facility] Last Admin: 12/03/18 09:12 Dose: 30 mg Pantoprazole Sodium (Protonix Iv) 40 mg IVPUSH DAILY [facility] Last Admin: 12/03/18 09:12 Dose: 40 mg - Objective Vital Signs: Vital Signs Temperature 97.8 F 12/03/18 10:00 Pulse Rate 82 12/03/18 10:00 Respiratory Rate 24 H 12/03/18 10:00 Blood Pressure 164/103 H 12/03/18 10:00 O2 Sat by Pulse Oximetry (%) 98 12/03/18 08:57 Constitutional: Yes: No Distress, Calm Neck: Yes: Supple Cardiovascular: Yes: Regular Rate and Rhythm Respiratory: Yes: Regular, Diminished, On Nasal O2 Gastrointestinal: Yes: Normal Bowel Sounds, Soft Edema: Yes Edema: LLE: Trace, RLE: Trace Labs: CBC, BMP 12/03/18 06:35 12/03/18 06:35 INR, PTT INR 1.22 (0.83-1.09) H 12/01/18 20:10 - ....Imaging Ultrasound: Report Reviewed (Right effusion, fatty liver) Problem List - Problems (1) Hypertensive emergency Code(s): I16.1 - HYPERTENSIVE EMERGENCY (2) Cerebrovascular disease Code(s): I67.9 - CEREBROVASCULAR DISEASE, UNSPECIFIED (3) Chest pain Code(s): R07.9 - CHEST PAIN, UNSPECIFIED Qualifiers: Chest pain type: precordial pain Qualified Code(s): R07.2 - Precordial pain (4) Cocaine abuse Code(s): F14.10 - COCAINE ABUSE, UNCOMPLICATED (5) Diabetic nephropathy associated with type 2 diabetes mellitus Code(s): E11.21 - TYPE 2 DIABETES MELLITUS WITH DIABETIC NEPHROPATHY (6) Shortness of breath Code(s): R06.02 - SHORTNESS OF BREATH (7) Acute on chronic diastolic (congestive) heart failure Code(s): I50.33 - ACUTE ON CHRONIC DIASTOLIC (CONGESTIVE) HEART FAILURE (8) Alcohol dependence Code(s): F10.20 - ALCOHOL DEPENDENCE, UNCOMPLICATED Qualifiers: Substance use status: unspecified alcohol-induced disorder Qualified Code(s ): F10.29 - Alcohol dependence with unspecified alcohol-induced disorder (9) CAD (coronary artery disease) Code(s): I25.10 - ATHSCL HEART DISEASE OF [place] CORONARY ARTERY W/O ANG PCTRS Qualifiers: Coronary Disease-Associated Artery/Lesion type: [place] artery [place] vs. transplanted heart: [place] heart Associated angina: without angina Qualified Code(s): I25.10 - Atherosclerotic heart disease of [place] coronary artery without angina pectoris (10) Hyperlipidemia Code(s): E78.5 - HYPERLIPIDEMIA, UNSPECIFIED Qualifiers: Hyperlipidemia type: pure hypercholesterolemia Qualified Code(s): E78.00 - Pure hypercholesterolemia, unspecified (11) Postop carotid endarterectomy surveillance, encounter for Code(s): Z48.812 - ENCNTR FOR SURGICAL AFTCR FOLLOWING SURGERY ON THE CIRC SYS Assessment/Plan 12/02/2018 Echo: Normal LV size and fxn with mod cLVH, normal RV size and fxn, mild SHAHANA, mild MR, TR, AR 12/01/2018 Ct head right 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 Acute stroke vs hypertensive encephelopathy 2. Hypertensive emergency due to medication noncompliance 3. Diastolic dysfunction 4. CAD and history of VA, PCI/stent with demand ischemia 5. PVC 6. COPD h/o exacerbation 7. Hypercholesterolemia 8. 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 Substance abuse (Cocaine) with + UDS 11. History of angioedema due to ACEI 12. TIA post right CEA, 50-69% left carotid 13. Leukocytosis on steroids 14. 4.3 cm infrarenal AAA with mural thrombus PLAN: 1. Weaned off Cardene gtt, f/u mri of brain 2. Resume spirinolactone 50 qd with monitor for diuretic response, renal fxn and electrolytes 3. Continue Carvedilol 25 bid, Hydralazine 100 tid, ASA 81 qd, Plavix 75 qd, Lipitor 80 qhs, Procardia XL 90 qd, Imdur 60 qd and uptitrate as tolerated 4. DVT prophylaxis with Lovenox, monitor for withdrawal, S&S evaluation appreciated 5. BD, O2 as needed, empiric abx, addressed importance of diet and medication compliance
--- NOTE | 2018-12-03 10:31 | CON.GI ---
Consult Consult Specialty:: GI Referred by:: Hospitalist Service Reason for Consultation:: "colitis" - History of Present Illness History of Present Illness: 58M admitted through [facility] 12/01 for evaluation of chest pain / shortness of breath and LE swelling. BP was 200's/100's and had CVA. Called to evaluate non oral contrast CT finding of thickening of sigmoid colon. Patient denies abdominal pain, rectal bleeding, diarrhea. He abuses smoked/intranasal cocaine and last used 4 days ago. He has never had a colonoscopy. There is no family history of colorectal cancer or other GI malignancy. He has chronic LFTs abnormalities and had negative hepatitis B/C serologies 08/11. - History Source History Provided By: Patient, Medical Record - Past Medical History Cardio/Vascular: Yes: CAD (S/P PCI), HTN, Hyperlipdemia, PR, Other (dilated cardiomyopathy (nonischemic), LV systolic dysfunction, ) Pulmonary: Yes: Asthma Gastrointestinal: Yes: GERD Renal/: Yes: Renal Inusuff Musculoskeletal: Yes: Chronic low back pain Additional Medical History: Rightt achilles tendon tear. Rightt testicular torsion. Angioedema due to ACEI - Past Surgical History Past Surgical History: Yes: AAA Repair, Carotid Endarterectomy (right) Additional Surgical History: Ankle surgery, right testicular torsion surgery - Alcohol/Substance Use Hx Alcohol Use: Yes ("2 beers per week") Number of Drinks Daily: 3 (beer) History of Substance Use: reports: Cocaine - Smoking History Smoking history: Current every day smoker Have you smoked in the past 12 months: No Aproximately how many cigarettes per day: 2 If you are a former smoker, when did you quit?: smokes 2 x per week - Social History Usual Living Arrangement: Alone ADL: Independent Occupation: No working. On disability Place of : [facility] History of Recent Travel: No Home Medications - Allergies Allergies/Adverse Reactions: Allergies Allergy/AdvReac Type Severity Reaction Status Date / Time IRMA Inhibitors Allergy Verified 12/01/18 18:50 - Home Medications Home Medications: Ambulatory Orders Isosorbide Mononitrate [Imdur -] 60 mg PO DAILY #30 tab.sr.24h 07/02/18 Hydralazine HCl 100 mg PO TID 08/09/18 Atorvastatin Ca [Lipitor] 80 mg PO HS #30 tablet 08/17/18 Carvedilol [Coreg -] 25 mg PO BID #60 tablet 08/17/18 Spironolactone [Aldactone -] 50 mg PO DAILY #30 tablet 08/17/18 Clopidogrel Bisulfate [Plavix] 75 mg PO DAILY 10/19/18 Cyclobenzaprine HCl 5 mg PO Q8H PRN #6 tablet 10/20/18 Methyl Salicylate/Menthol Oint [Analgesic [place] -] 1 applic TP DAILY PRN #1 applic 10/20/18 Albuterol 0.083% Nebulizer Jane [Ventolin 0.083% Nebulizer Soln -] 1 amp NEB Q4H #10 amp 11/01/18 Miscellaneous Medical Supply [Glucometer Device] 1 each .ROUTE ASDIR #1 kit 01/11 Miscellaneous Medical Supply [Glucometer Test Strips #100] 1 each .ROUTE ASDIR # 1 box 11/03/18 Aspirin Coated [Ecotrin -] 81 mg PO DAILY tablet.ec 11/04/18 Furosemide [Lasix -] 40 mg PO DAILY tablet 11/04/18 Insulin (Levemir) [Levemir Vial] 30 units SQ 0700,2200 units 11/04/18 Insulin Sliding Scale [Novolog Vial Sliding Scale -] 1 vial SQ ACHS units 11/04 Nifedipine ER [Procardia XL -] 90 mg PO DAILY tab.er.24 11/04/18 Sitagliptin Phosphate [Januvia -] 25 mg PO DAILY@0700 #30 tab 11/04/18 Family Medical History Other Family History: Mother: Alive: healthy. Father: . 1 sister: healthy. 2 brothers: healthy. 1 son, 1 daughter: healthy. No family history of colorectal cancer, liver disease Review of Systems - Review of Systems Cardiovascular: reports: Chest Pain, Edema, Shortness of Breath, Other ( Orthopnea) Respiratory: reports: SOB on Exertion Gastrointestinal: reports: Bloating. denies: Constipation, Diarrhea, Dysphagia , Indigestion, Melena, Nausea, Rectal Bleeding, Vomiting, Vomiting Blood Musculoskeletal: reports: Back Pain Physical Exam-GI Vital Signs: Vital Signs Temperature 97.8 F 12/03/18 09:32 Pulse Rate 82 12/03/18 09:20 Respiratory Rate 19 12/03/18 09:20 Blood Pressure 165/107 H 12/03/18 09:20 O2 Sat by Pulse Oximetry (%) 98 10/11/19 08:57 Constitutional: Yes: Calm Eyes: No: Sclera Icterus Cardiovascular: Yes: Regular Rate and Rhythm. No: Murmur Respiratory: Yes: Wheezes (bilaterally) Gastrointestinal Inspection: No: Distention, Scars ...Auscultate: Yes: Normoactive Bowel Sounds ...Palpate: Yes: Soft, Tenderness (mild TTP along right lower ribs). No: Guarding, Tenderness, Rebound ...Percussion: No: Tympanitic Edema: Yes Edema: LLE: 2+, RLE: 2+ Neurological: Yes: Alert Labs: CBC, BMP 12/03/18 06:35 12/03/18 06:35 INR, PTT INR 1.22 (0.83-1.09) H 12/01/18 20:10 Hepatic Panel Total Bilirubin 0.7 mg/dL (0.2-1) 12/03/18 06:35 AST 40 U/L (15-37) H 12/03/18 06:35 ALT 102 U/L (13-61) H 12/03/18 06:35 Alkaline Phosphatase 221 U/L (45-117) H 12/03/18 06:35 Albumin 2.8 g/dl (3.4-5.0) L 12/03/18 06:35 Problem List - Problems (1) Abnormal findings on diagnostic imaging of abdomen Assessment/Plan: Thickening of sigmoid colon. No oral contrast utilized. No clinical evidence of ongoing colitis or diverticulitis. There are diverticula noted. Diverticulosis itself can lead to colonic wall hypertrophy. ? if the pericolonic fluid secondary to overall volume overload in setting of heart failure. Monitor for now If diarrhea, stool for C. Diff Inpatient care per primary team / critical care Has macrocytic anemia. advised alcohol cessation. Consider heme evaluation. Outpatient evaluation for colonoscopy when able to do so Code(s): R93.5 - ABN FINDINGS ON DX IMAGING OF ABD REGIONS, INC RETROPERITON (2) Abnormal liver enzymes Assessment/Plan: Appear chronic in review of the [employer] system with negative hepatitis serologies 08/11. Suspect component of passive congestion and from fatty alcoholic liver disease. Advised the need for complete alcohol cessaiton. Check abdominal US Code(s): R74.8 - ABNORMAL LEVELS OF OTHER SERUM ENZYMES
--- NOTE | 2018-12-03 10:43 | PN ---
Teaching Attending Note Name of Resident: Roxane Lauren ATTENDING PHYSICIAN STATEMENT I saw and evaluated the patient. I reviewed the resident's note and discussed the case with the resident. I agree with the resident's findings and plan as documented. SUBJECTIVE: Patient seen and examined in the ICU. Awake and alert. Denies CP or dizziness. Still with RUE weakness 2/5 and pain. MAP are generally improving Intake & Output 11/30/18 12/01/18 12/02/18 12/03/18 23:59 23:59 23:59 23:59 Intake Total 2125 350 Output Total 1700 3300 900 Balance -1700 -1175 -550 Weight 240 lb 254 lb 6 oz 254 lb 9.6 oz Last Vital Signs Temp Pulse Resp BP Pulse Ox 97.8 F 82 24 H 164/103 H 98 12/03/18 10:00 12/03/18 10:00 12/03/18 10:00 12/03/18 10:00 12/03/18 08:57 Active Medications Albuterol Sulfate (Ventolin 0.083% Nebulizer Soln -) 1 amp NEB RQID PRN PRN Reason: SHORT OF BREATH/WHEEZING Aspirin (Ecotrin -) 81 mg PO DAILY [facility] Last Admin: 12/03/18 09:12 Dose: 81 mg Carvedilol (Coreg -) 25 mg PO BID [facility] Last Admin: 12/03/18 09:12 Dose: 25 mg Clopidogrel Bisulfate (Plavix -) 75 mg PO DAILY [facility] Last Admin: 12/03/18 09:12 Dose: 75 mg Furosemide (Lasix -) 40 mg PO DAILY [facility] Hydralazine HCl (Apresoline -) 100 mg PO TID [facility] Last Admin: 12/03/18 06:01 Dose: 100 mg Ceftriaxone Sodium 1 gm/ (Dextrose) 50 mls @ 200 mls/hr IVPB DAILY [facility]; Protocol Last Admin: 12/03/18 09:13 Dose: 200 mls/hr Metronidazole (Flagyl 500mg Premixed Ivpb -) 500 mg in 100 mls @ 100 mls/hr IVPB Q8H-IV [facility] Last Admin: 12/03/18 09:38 Dose: 100 mls/hr Insulin Aspart (Novolog Vial Sliding Scale -) 1 vial SQ ACHS [facility]; Protocol Last Admin: 12/03/18 06:00 Dose: 2 units Lorazepam (Ativan Injection -) 2 mg IVPUSH Q2H PRN PRN Reason: AGITATION Nifedipine (Procardia Xl -) 30 mg PO DAILY [facility] Last Admin: 12/03/18 09:12 Dose: 30 mg Pantoprazole Sodium (Protonix Iv) 40 mg IVPUSH DAILY [facility] Last Admin: 12/03/18 09:12 Dose: 40 mg GENERAL: Awake and alert, NAD HEAD: Normal with no signs of trauma. EYES: Pupils equal, round and reactive to light, extraocular movements intact, sclera anicteric, conjunctiva clear. No lid lag. EARS, NOSE, THROAT: Ears normal, nares patent, oropharynx clear without exudates. Moist mucous membranes. NECK: Normal range of motion, supple without lymphadenopathy, JVD, or masses. LUNGS: Breath sounds equal, clear to auscultation bilaterally. No wheezes, and no crackles. No accessory muscle use. HEART: Regular rate and rhythm, normal S1 and S2 without murmur, rub or gallop. ABDOMEN: Soft, nontender, not distended, normoactive bowel sounds, no guarding, no rebound, no masses. No hepatomegaly or splenomegaly. MUSCULOSKELETAL: Normal range of motion at all joints. No bony deformities or tenderness. No CVA tenderness. UPPER EXTREMITIES: 2+ pulses, warm, well-perfused. No cyanosis. No clubbing. Cap refill <2 seconds. No peripheral edema. LOWER EXTREMITIES: 2+ pulses, warm, well-perfused. No calf tenderness. No peripheral edema. NEUROLOGICAL: RUE: 2/5, Cranial nerves II-XII intact. Normal speech. PSYCHIATRIC: Cooperative. Good eye contact. SKIN: Warm, dry, normal turgor, no rashes or lesions noted. Laboratory Results - last 24 hr 12/02/18 12/02/18 12/02/18 05:45 09:55 10:56 WBC RBC Hgb Hct MCV MCH MCHC RDW Plt Count MPV Absolute Neuts (auto) Neutrophils % Lymphocytes % Monocytes % Eosinophils % Basophils % Nucleated RBC % Sodium 142 Potassium 3.6 Chloride 108 H Carbon Dioxide 28 Anion Gap 6 L BUN 17.3 Creatinine 1.2 Est GFR (CKD-EPI)AfAm 77.33 Est GFR (CKD-EPI)NonAf 66.72 POC Glucometer 150 Random Glucose 219 H Calcium 8.9 Phosphorus 3.3 Magnesium 1.6 L Total Bilirubin 0.9 AST 27 ALT 116 H Alkaline Phosphatase 236 H Troponin I 0.06 H 0.06 H Total Protein 6.4 Albumin 2.9 L Urine Color Urine Appearance Urine pH Ur Specific [place] Urine Protein Urine Glucose (UA) Urine Ketones Urine Blood Urine Nitrite Urine Bilirubin Urine Urobilinogen Ur Leukocyte Esterase Urine WBC (Auto) Urine RBC (Auto) Urine Casts (Auto) U Epithel Cells (Auto) Urine Bacteria (Auto) 12/02/18 12/02/18 12/02/18 16:33 18:30 22:06 WBC RBC Hgb Hct MCV MCH MCHC RDW Plt Count MPV Absolute Neuts (auto) Neutrophils % Lymphocytes % Monocytes % Eosinophils % Basophils % Nucleated RBC % Sodium Potassium Chloride Carbon Dioxide Anion Gap BUN Creatinine Est GFR (CKD-EPI)AfAm Est GFR (CKD-EPI)NonAf POC Glucometer 208 243 Random Glucose Calcium Phosphorus Magnesium Total Bilirubin AST ALT Alkaline Phosphatase Troponin I 0.06 H Total Protein Albumin Urine Color Urine Appearance Urine pH Ur Specific [place] Urine Protein Urine Glucose (UA) Urine Ketones Urine Blood Urine Nitrite Urine Bilirubin Urine Urobilinogen Ur Leukocyte Esterase Urine WBC (Auto) Urine RBC (Auto) Urine Casts (Auto) U Epithel Cells (Auto) Urine Bacteria (Auto) 12/03/18 12/03/18 12/03/18 05:00 05:54 06:35 WBC 8.5 RBC 3.49 L Hgb 10.9 L Hct 34.3 L MCV 98.1 H MCH 31.2 MCHC 31.8 L RDW 17.3 H Plt Count 322 MPV 7.7 Absolute Neuts (auto) 6.3 Neutrophils % 74.1 Lymphocytes % 15.5 Monocytes % 8.3 Eosinophils % 1.1 Basophils % 1.0 Nucleated RBC % 0 Sodium Potassium Chloride Carbon Dioxide Anion Gap BUN Creatinine Est GFR (CKD-EPI)AfAm Est GFR (CKD-EPI)NonAf POC Glucometer 184 Random Glucose Calcium Phosphorus Magnesium Total Bilirubin AST ALT Alkaline Phosphatase Troponin I Total Protein Albumin Urine Color Yellow Urine Appearance Clear Urine pH 5.5 Ur Specific [place] 1.025 Urine Protein 2+ H Urine Glucose (UA) Trace Urine Ketones Negative Urine Blood Negative Urine Nitrite Negative Urine Bilirubin Negative Urine Urobilinogen 0.2 Ur Leukocyte Esterase Negative Urine WBC (Auto) 1 Urine RBC (Auto) 1 Urine Casts (Auto) 2 U Epithel Cells (Auto) 1.4 Urine Bacteria (Auto) 2.4 12/03/18 06:35 WBC RBC Hgb Hct MCV MCH MCHC RDW Plt Count MPV Absolute Neuts (auto) Neutrophils % Lymphocytes % Monocytes % Eosinophils % Basophils % Nucleated RBC % Sodium 139 Potassium 3.6 Chloride 104 Carbon Dioxide 26 Anion Gap 9 BUN 18.5 H Creatinine 1.4 H Est GFR (CKD-EPI)AfAm 64.18 Est GFR (CKD-EPI)NonAf 55.38 POC Glucometer Random Glucose 223 H Calcium 8.7 Phosphorus 3.0 Magnesium 1.7 L Total Bilirubin 0.7 AST 40 H ALT 102 H Alkaline Phosphatase 221 H Troponin I Total Protein 6.0 L Albumin 2.8 L Urine Color Urine Appearance Urine pH Ur Specific [place] Urine Protein Urine Glucose (UA) Urine Ketones Urine Blood Urine Nitrite Urine Bilirubin Urine Urobilinogen Ur Leukocyte Esterase Urine WBC (Auto) Urine RBC (Auto) Urine Casts (Auto) U Epithel Cells (Auto) Urine Bacteria (Auto) ASSESSMENT/PLAN: Acute CVA Cocaine abuse Hypertensive Urgency HTN HLD DM S/P AMI with PCI Diastolic dysfunction COPD/asthma Titrate BP Meds for SBP 140 to 160 No smoking Monitor for withdrawal Check ECHO Vascular evaluation Antiplatelet O2 as needed BD TX PRN Cardiac Telemetry monitoring Dr Azar
[2018-12-03] MEDS ORDERED: FUROSEMIDE 40 MG TABLET (FP) PO SCH (11:30)
--- NOTE | 2018-12-03 13:39 | PN ---
Physical Exam: SUBJECTIVE: Patient seen and examined at bedside. pt states he feels SOB.pt denies chest pain or palpitations. pt was seen eating breakfast in bed. OBJECTIVE: Vital Signs Period Temp Pulse Resp BP Sys/Caal Pulse Ox Last 24 Hr 97.8 F-98.5 F 76-96 16-25 147-212/100-145 98-98 GENERAL: The patient is awake, alert, and fully oriented, in no acute distress. LUNGS: Breath sounds equal, clear to auscultation bilaterally, no wheezes, no crackles, no accessory muscle use. HEART: Regular rate and rhythm, S1, S2 ABDOMEN: Soft, nontender, nondistended, normoactive bowel sounds, no guarding EXTREMITIES: 2+ pulses, warm, well-perfused, +2 pitting edema on LE b/l NEUROLOGICAL: Cranial nerves II through XII grossly intact. Normal speech, gait not observed. SKIN: Warm, dry, normal turgor, no rashes or lesions noted Laboratory Last Values WBC 8.5 K/mm3 (4.0-10.0) 12/03/18 06:35 RBC 3.49 M/mm3 (4.00-5.60) L 12/03/18 06:35 Hgb 10.9 GM/dL (11.7-16.9) L 12/03/18 06:35 Hct 34.3 % (35.4-49) L 12/03/18 06:35 MCV 98.1 fl (80-96) H 12/03/18 06:35 MCH 31.2 pg (25.7-33.7) 12/03/18 06:35 MCHC 31.8 g/dl (32.0-35.9) L 12/03/18 06:35 RDW 17.3 % (11.9-15.9) H 12/03/18 06:35 Plt Count 322 K/MM3 (134-434) 12/03/18 06:35 MPV 7.7 fl (7.5-11.1) 12/03/18 06:35 Absolute Neuts (auto) 6.3 K/mm3 (1.5-8.0) 12/03/18 06:35 Neutrophils % 74.1 % (42.8-82.8) 12/03/18 06:35 Neutrophils % (Manual) 72.0 % (42.8-82.8) 12/02/18 05:45 Band Neutrophils % 0.0 % 12/02/18 05:45 Lymphocytes % 15.5 % (8-40) 12/03/18 06:35 Lymphocytes % (Manual) 16.0 % (8-40) D 12/02/18 05:45 Monocytes % 8.3 % (3.8-10.2) 12/03/18 06:35 Monocytes % (Manual) 11 % (3.8-10.2) H D 12/02/18 05:45 Eosinophils % 1.1 % (0-4.5) 12/03/18 06:35 Eosinophils % (Manual) 1.0 % (0-4.5) D 12/02/18 05:45 Basophils % 1.0 % (0-2.0) 12/03/18 06:35 Basophils % (Manual) 0.0 % (0-2.0) 12/02/18 05:45 Myelocytes % (Man) 0 % (0-2) 12/02/18 05:45 Promyelocytes % (Man) 0 % (0-2) 12/02/18 05:45 Blast Cells % (Manual) 0 % (0-0) 12/02/18 05:45 Nucleated RBC % 0 % (0-0) 12/03/18 06:35 Metamyelocytes 0 % (0-2) 12/02/18 05:45 Hypochromia 0 12/02/18 05:45 Platelet Estimate Normal 12/02/18 05:45 Polychromasia 2+ 12/02/18 05:45 Poikilocytosis 0 12/02/18 05:45 Anisocytosis 1+ 12/02/18 05:45 Microcytosis 0 12/02/18 05:45 Macrocytosis 1+ 12/02/18 05:45 PT with INR 14.40 SEC (9.7-13.0) H 12/01/18 20:10 INR 1.22 (0.83-1.09) H 12/01/18 20:10 Sodium 139 mmol/L (136-145) 12/03/18 06:35 Potassium 3.6 mmol/L (3.5-5.1) 12/03/18 06:35 Chloride 104 mmol/L (98-107) 12/03/18 06:35 Carbon Dioxide 26 mmol/L (21-32) 12/03/18 06:35 Anion Gap 9 MMOL/L (8-16) 12/03/18 06:35 BUN 18.5 mg/dL (7-18) H 12/03/18 06:35 Creatinine 1.4 mg/dL (0.55-1.3) H 12/03/18 06:35 Est GFR (CKD-EPI)AfAm 64.18 12/03/18 06:35 Est GFR (CKD-EPI)NonAf 55.38 12/03/18 06:35 POC Glucometer 312 UNITS (80-120) 12/03/18 11:59 Random Glucose 223 mg/dL (74-106) H 12/03/18 06:35 Lactic Acid 1.0 mmol/L (0.4-2.0) 12/02/18 05:45 Calcium 8.7 mg/dL (8.5-10.1) 12/03/18 06:35 Phosphorus 3.0 mg/dL (2.5-4.9) 12/03/18 06:35 Magnesium 1.7 mg/dL (1.8-2.4) L 12/03/18 06:35 Total Bilirubin 0.7 mg/dL (0.2-1) 12/03/18 06:35 AST 40 U/L (15-37) H 12/03/18 06:35 ALT 102 U/L (13-61) H 12/03/18 06:35 Alkaline Phosphatase 221 U/L (45-117) H 12/03/18 06:35 Creatine Kinase 160 U/L (26-308) 12/01/18 20:10 Creatine Kinase Index 1.1 % (0.0-5.0) 12/01/18 20:10 CK-MB (CK-2) 1.8 ng/mL (0.5-3.6) 12/01/18 20:10 Troponin I 0.06 ng/ml (0.00-0.05) H 12/02/18 18:30 B-Natriuretic Peptide 5649.8 pg/ml (5-125) H 12/01/18 20:10 Total Protein 6.0 g/dl (6.4-8.2) L 12/03/18 06:35 Albumin 2.8 g/dl (3.4-5.0) L 12/03/18 06:35 Urine Color Yellow 12/03/18 05:00 Urine Appearance Clear 12/03/18 05:00 Urine pH 5.5 (5.0-8.0) 12/03/18 05:00 Ur Specific [place] 1.025 (1.010-1.035) 12/03/18 05:00 Urine Protein 2+ (NEGATIVE) H 12/03/18 05:00 Urine Glucose (UA) Trace (NEGATIVE) 12/03/18 05:00 Urine Ketones Negative (NEGATIVE) 12/03/18 05:00 Urine Blood Negative (NEGATIVE) 12/03/18 05:00 Urine Nitrite Negative (NEGATIVE) 12/03/18 05:00 Urine Bilirubin Negative (NEGATIVE) 12/03/18 05:00 Urine Urobilinogen 0.2 mg/dL (0.2-1.0) 12/03/18 05:00 Ur Leukocyte Esterase Negative (NEGATIVE) 12/03/18 05:00 Urine WBC (Auto) 1 /hpf (0-5) 12/03/18 05:00 Urine RBC (Auto) 1 /hpf (0-4) 12/03/18 05:00 Urine Casts (Auto) 2 /lpf (0-8) 12/03/18 05:00 U Epithel Cells (Auto) 1.4 /HPF (0-5/HPF) 12/03/18 05:00 Urine Bacteria (Auto) 2.4 /hpf (NEGATIVE) 12/03/18 05:00 Opiates Screen Positive ng/ml (ERRRAS=892) A* 12/02/18 00:30 Methadone Screen Negative ng/ml (XYUURK=285) 12/02/18 00:30 Barbiturate Screen Negative ng/ml (QCINLQ=018) 12/02/18 00:30 Phencyclidine Screen Negative ng/ml (CUTOFF=25) 12/02/18 00:30 Ur Amphetamines Screen Negative ng/ml (WBVFVK=554) 12/02/18 00:30 MDMA (Ecstasy) Screen Negative ng/ml (TVUXZT=297) 12/02/18 00:30 Benzodiazepines Screen Negative ng/ml (TOGACL=571) 12/02/18 00:30 Cocaine Screen Positive ng/ml (CPPNUC=960) A* 12/02/18 00:30 U Marijuana (THC) Screen Negative ng/ml (CUTOFF=50) 12/02/18 00:30 Current Medications Albuterol Sulfate (Ventolin 0.083% Nebulizer Soln -) 1 amp NEB RQID PRN PRN Reason: SHORT OF BREATH/WHEEZING Aspirin (Ecotrin -) 81 mg PO DAILY [facility] Last Admin: 12/03/18 09:12 Dose: 81 mg Carvedilol (Coreg -) 25 mg PO BID [facility] Last Admin: 12/03/18 09:12 Dose: 25 mg Clopidogrel Bisulfate (Plavix -) 75 mg PO DAILY [facility] Last Admin: 12/03/18 09:12 Dose: 75 mg Furosemide (Lasix -) 40 mg PO DAILY [facility] Last Admin: 12/03/18 11:31 Dose: 40 mg Hydralazine HCl (Apresoline -) 100 mg PO TID [facility] Last Admin: 12/03/18 13:04 Dose: 100 mg Ceftriaxone Sodium 1 gm/ (Dextrose) 50 mls @ 200 mls/hr IVPB DAILY [facility]; Protocol Last Admin: 12/03/18 09:13 Dose: 200 mls/hr Metronidazole (Flagyl 500mg Premixed Ivpb -) 500 mg in 100 mls @ 100 mls/hr IVPB Q8H-IV [facility] Last Admin: 12/03/18 09:38 Dose: 100 mls/hr Insulin Aspart (Novolog Vial Sliding Scale -) 1 vial SQ ACHS [facility]; Protocol Last Admin: 12/03/18 12:06 Dose: 8 units Lorazepam (Ativan Injection -) 2 mg IVPUSH Q2H PRN PRN Reason: AGITATION Nifedipine (Procardia Xl -) 30 mg PO DAILY [facility] Last Admin: 12/03/18 09:12 Dose: 30 mg Pantoprazole Sodium (Protonix Iv) 40 mg IVPUSH DAILY [facility] Last Admin: 12/03/18 09:12 Dose: 40 mg Spironolactone (Aldactone -) 50 mg PO DAILY [facility] CT Chest, Abd/ pel:The thoracoabdominal aorta demonstrates no CT evidence of dissection. As on the prior CT exam of 04/16/2018 there is stable fusiform aneurysmal dilatation of the infrarenal aorta with a 4.3 cm diameter. Interval development of mild pericolonic soft tissue edema is noted adjacent to the mid and lower thirds of the descending colon as well as the upper third of the sigmoid colon. There is possible associated mild concentric wall thickening along the same region. Numerous diverticula are seen. On the basis of the current exam it is uncertain whether these findings are due to acute colitis ( ischemic versus inflammatory/infectious) or acute uncomplicated diverticulitis. Correlate clinically. Development of a very small amount of free fluid is seen within the abdomen and pelvis. 0.7 x 0.2 cm nonobstructing right renal calculus. In comparison to a chest CT exam of 11/02/2018 interval development of small bilateral pleural effusions is noted as well as mild increase concentric subcutaneous soft tissue stranding at the level of the abdomen and pelvis. Note is again made of minimal to mild bilateral pneumonitis groundglass interstitial opacity which may be mildly increased - ? due to vascular congestion. Increased nonspecific mediastinal lymphadenopathy is noted. Mild cardiomegaly. Note is again made of dilatation of the main pulmonary artery with a 4.3 cm diameter consistent with debris hypertension. A 2 mm right upper lobe nodule noted on the previous exam is difficult to visualize on the current exam. Correlate with 3-4 month follow-up CT Head CT: No CT evidence of intracranial hemorrhage. A chronic right posterior temporal cortical infarct is noted which was not present at the time of a CT exam of 08/06/2018. Note is again made of chronic right frontal and right parietal cortical infarcts. Shoulder XR: 2 views of the right shoulder reveal some arthritic changes with possible old Hill-Sachs deformity but no sign of an acute fracture or subluxation and no sign of blastic or lytic changes. Since 2018, there is no sign of an acute change. Correlation recommended Carotid u/s Impression: There is a [id number] sized soft plaque at the right common carotid bifurcation/bulb without evidence of hemodynamically significant stenosis. There are also moderate-sized plaques with calcifications at the left common carotid bifurcation/ bulb with borderline hemodynamically significant stenosis. Post plaque peak systolic velocity obtained is 124 cm/s. A peak systolic velocity of 125 -230 cm/s is compatible with hemodynamically significant stenosis of 50-69%, NASCET criteria. Correlation with CTA would be helpful for further evaluation of the degree of stenosis Abdomen u/s IMPRESSION: 1. Right pleural effusion. 2. Probable diffuse fatty infiltration of the liver. Limited study as described above. ASSESSMENT/PLAN: 58 yo M w/ PMH of HTN, HLD, DM, CT (x3 w/ stents), substance abuse ( cocaine), HFpEF, COPD presented to the ED with chest pain and hypertensive emergency. Pt is admitted to ICU for management of hypertensive emergency. On admission, pt was found to have right arm weakness prompting stroke workup. Neuro: Acute stroke vs hypertensive encephalopathy , TIA post right CEA, 50-69% left carotid AAOx3 NIHSS 3 -Neuro recs appreciated -awaiting brain MRI -carotid u/s showing hemodynamic stenosis of L common carotid, see above report. vascular recs appreciated Cardio: Hypertensive emergency 2/2 medication noncompliance, CAD , Hx of CT, ( s /p PCI/ stent w/ demand ischemia) , HLD, HFpEF, 4.3 cm infrarenal AAA with mural thrombus -s/p nicardipine drip -c/w asa, plavix, statin -c/w PO lasix 40 -counselled on importance of drug cessation -c/w coreg 25 BID, aldactone 50 daily, hydralazine 100 tid, asa , plavix 75, lipitor 80, procardia 90, imdur 60 Pulm: COPD -on NC saturating well -SpO2>90% -ventolin prn GI: transaminitis, fatty liver disease -abdomen u/s noted above -Ct abdomen shows thickening of sigmoid colon although no clinical evidence of ongoing colitis or diverticulitis. There are diverticula noted. -continue to monitor - colonoscopy as outpt -GI recs appreciated Nephro: CKD -monitor Cr, baseline 1.3-1.4 -avoid nephrotoxic agents Endo: DM -BGM -ISS ID - leukocytosis improving -lactate 1.0 -c/w ceftriaxone -will d/c metronidazole since colitis suspicion is low. DVT ppx: Lovenox F/E/N -diabetic/ sodium diet -monitor lytes Dispo: transfer to tele Visit type - Emergency Visit Emergency Visit: No - New Patient This patient is new to me today: No - Critical Care Critical Care patient: Yes Total Critical Care Time (in minutes): 36 Critical Care Statement: The care of this patient involved high complexity decision making to prevent further life threatening deterioration of the patient 's condition and/or to evaluate & treat vital organ system(s) failure or risk of failure. ATTENDING PHYSICIAN STATEMENT I saw and evaluated the patient. I reviewed the resident's note and discussed the case with the resident. I agree with the resident's findings and plan as documented. SUBJECTIVE: OBJECTIVE: ASSESSMENT AND PLAN:
--- NOTE | 2018-12-03 15:13 | PN ---
Progress Note (short form) - Note Progress Note: Renal follow up for CKD and hypertension Seen and examined in the ICU awake and alert continues to have right arm weakness denies any headache, blurry vision, chest pain, fever or chills making urine Vital Signs Temperature 97.8 F 12/03/18 10:00 Pulse Rate 81 12/03/18 13:06 Respiratory Rate 19 12/03/18 13:06 Blood Pressure 163/104 H 12/03/18 13:06 O2 Sat by Pulse Oximetry (%) 98 12/03/18 08:57 Intake & Output 11/30/18 12/01/18 12/02/18 12/03/18 23:59 23:59 23:59 23:59 Intake Total 2125 350 Output Total 1700 3300 900 Balance -1700 -1175 -550 Weight 108.862 kg 115.383 kg 115.212 kg NAD awake and alert neck supple, no JVD RRR CTA soft NT/ND no LE edema CBC, BMP 12/03/18 06:35 12/03/18 06:35 Current Medications Albuterol Sulfate (Ventolin 0.083% Nebulizer Soln -) 1 amp NEB RQID PRN PRN Reason: SHORT OF BREATH/WHEEZING Aspirin (Ecotrin -) 81 mg PO DAILY [facility] Last Admin: 12/03/18 09:12 Dose: 81 mg Atorvastatin Calcium (Lipitor -) 80 mg PO HS [facility] Carvedilol (Coreg -) 25 mg PO BID [facility] Last Admin: 12/03/18 09:12 Dose: 25 mg Clopidogrel Bisulfate (Plavix -) 75 mg PO DAILY [facility] Last Admin: 12/03/18 09:12 Dose: 75 mg Enoxaparin Sodium (Lovenox -) 40 mg SQ DAILY [facility] Furosemide (Lasix -) 40 mg PO DAILY [facility] Last Admin: 12/03/18 11:31 Dose: 40 mg Hydralazine HCl (Apresoline -) 100 mg PO TID [facility] Last Admin: 12/03/18 13:04 Dose: 100 mg Ceftriaxone Sodium 1 gm/ (Dextrose) 50 mls @ 200 mls/hr IVPB DAILY [facility]; Protocol Last Admin: 12/03/18 09:13 Dose: 200 mls/hr Insulin Aspart (Novolog Vial Sliding Scale -) 1 vial SQ ACHS [facility]; Protocol Last Admin: 10/11/19 12:06 Dose: 8 units Isosorbide Mononitrate (Imdur -) 60 mg PO DAILY [facility] Lorazepam (Ativan Injection -) 2 mg IVPUSH Q2H PRN PRN Reason: AGITATION Nifedipine (Procardia Xl -) 90 mg PO DAILY [facility] Pantoprazole Sodium (Protonix Iv) 40 mg IVPUSH DAILY [facility] Last Admin: 12/03/18 09:12 Dose: 40 mg Spironolactone (Aldactone -) 50 mg PO DAILY [facility] 58 year old gentleman with history of Hypertension, hyperlipidemia, CAD s/p PCI and stenting, HF with diastolic dysfunction, COPD who presented to the ED with chest pain and noted to have right upper extremity weakness/CVA and hypertensive emergency. 1. Hypertensive emergency 2. 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 hyperlipidemia BP is improved now. Continue Nifedpine, Coreg, Aldactone and hydrazline. Renal function essentially stable. No overt electrolyte or acid base disturbance noted. Trend renal function and electrolytes continue statin Neurology and cardiology follow up Thank you David Gilmore DO
[2018-12-03] MEDS: ENOXAPARIN NA (PORCINE) 40 MG/0.4 ML DISP.SYRIN SQ SCH (15:33)
[2018-12-03] MEDS ORDERED: LORazepam 2 MG/ML SDV VIAL IVPUSH PRN (16:52)
--- NOTE | 2018-12-03 17:34 | PN ---
Physical Exam: SUBJECTIVE: Patient seen and examined at the bedside, patient still hypertensive with R side UE weakness, resumed home meds and HTN improving. OBJECTIVE: Vital Signs Period Temp Pulse Resp BP Sys/Caal Pulse Ox Last 24 Hr 97.0 F-98.5 F 76-95 16-25 147-168/100-128 98-98 GENERAL: The patient is awake, alert, and fully oriented, in no acute distress. HEAD: Normal with no signs of trauma. EYES: PERRL, extraocular movements intact, sclera anicteric, conjunctiva clear. ENT: Ears normal, oropharynx clear without exudates, moist mucous membranes. NECK: Trachea midline, full range of motion, supple. LUNGS: Breath sounds equal, clear to auscultation bilaterally, no wheezes, no crackles, no accessory muscle use. HEART: Regular rate and rhythm, S1, S2 without murmur, rub or gallop. ABDOMEN: Soft, NT,ND, normoactive bowel sounds, no guarding, no rebound, no hepatosplenomegaly, no masses. EXTREMITIES: 2+ pulses, warm, well-perfused, no edema. NEUROLOGICAL: Cranial nerves II through XII grossly intact. Normal speech now , gait not observed. PSYCH: Normal mood, normal affect. SKIN: Warm, dry, normal turgor, no rashes or lesions noted Laboratory Results - last 24 hr 12/02/18 12/02/18 12/03/18 18:30 22:06 05:00 WBC RBC Hgb Hct MCV MCH MCHC RDW Plt Count MPV Absolute Neuts (auto) Neutrophils % Lymphocytes % Monocytes % Eosinophils % Basophils % Nucleated RBC % Sodium Potassium Chloride Carbon Dioxide Anion Gap BUN Creatinine Est GFR (CKD-EPI)AfAm Est GFR (CKD-EPI)NonAf POC Glucometer 243 Random Glucose Calcium Phosphorus Magnesium Total Bilirubin AST ALT Alkaline Phosphatase Troponin I 0.06 H Total Protein Albumin Urine Color Yellow Urine Appearance Clear Urine pH 5.5 Ur Specific [place] 1.025 Urine Protein 2+ H Urine Glucose (UA) Trace Urine Ketones Negative Urine Blood Negative Urine Nitrite Negative Urine Bilirubin Negative Urine Urobilinogen 0.2 Ur Leukocyte Esterase Negative Urine WBC (Auto) 1 Urine RBC (Auto) 1 Urine Casts (Auto) 2 U Epithel Cells (Auto) 1.4 Urine Bacteria (Auto) 2.4 12/03/18 12/03/18 12/03/18 05:54 06:35 06:35 WBC 8.5 RBC 3.49 L Hgb 10.9 L Hct 34.3 L MCV 98.1 H MCH 31.2 MCHC 31.8 L RDW 17.3 H Plt Count 322 MPV 7.7 Absolute Neuts (auto) 6.3 Neutrophils % 74.1 Lymphocytes % 15.5 Monocytes % 8.3 Eosinophils % 1.1 Basophils % 1.0 Nucleated RBC % 0 Sodium 139 Potassium 3.6 Chloride 104 Carbon Dioxide 26 Anion Gap 9 BUN 18.5 H Creatinine 1.4 H Est GFR (CKD-EPI)AfAm 64.18 Est GFR (CKD-EPI)NonAf 55.38 POC Glucometer 184 Random Glucose 223 H Calcium 8.7 Phosphorus 3.0 Magnesium 1.7 L Total Bilirubin 0.7 AST 40 H ALT 102 H Alkaline Phosphatase 221 H Troponin I Total Protein 6.0 L Albumin 2.8 L Urine Color Urine Appearance Urine pH Ur Specific [place] Urine Protein Urine Glucose (UA) Urine Ketones Urine Blood Urine Nitrite Urine Bilirubin Urine Urobilinogen Ur Leukocyte Esterase Urine WBC (Auto) Urine RBC (Auto) Urine Casts (Auto) U Epithel Cells (Auto) Urine Bacteria (Auto) 12/03/18 12/03/18 11:59 16:31 WBC RBC Hgb Hct MCV MCH MCHC RDW Plt Count MPV Absolute Neuts (auto) Neutrophils % Lymphocytes % Monocytes % Eosinophils % Basophils % Nucleated RBC % Sodium Potassium Chloride Carbon Dioxide Anion Gap BUN Creatinine Est GFR (CKD-EPI)AfAm Est GFR (CKD-EPI)NonAf POC Glucometer 312 161 Random Glucose Calcium Phosphorus Magnesium Total Bilirubin AST ALT Alkaline Phosphatase Troponin I Total Protein Albumin Urine Color Urine Appearance Urine pH Ur Specific [place] Urine Protein Urine Glucose (UA) Urine Ketones Urine Blood Urine Nitrite Urine Bilirubin Urine Urobilinogen Ur Leukocyte Esterase Urine WBC (Auto) Urine RBC (Auto) Urine Casts (Auto) U Epithel Cells (Auto) Urine Bacteria (Auto) Active Medications Generic Name Dose Route Start Last Admin Trade Name Freq PRN Reason Stop Dose Admin Albuterol Sulfate 1 amp 12/03/18 16:52 Ventolin 0.083% Nebulizer Soln - NEB RQID PRN SHORT OF BREATH/WHEEZING Aspirin 81 mg 12/04/18 10:00 Ecotrin - PO DAILY [facility] Atorvastatin Calcium 80 mg 12/03/18 22:00 Lipitor - PO HS [facility] Carvedilol 25 mg 12/03/18 22:00 Coreg - PO BID [facility] Clopidogrel Bisulfate 75 mg 12/04/18 10:00 Plavix - PO DAILY [facility] Enoxaparin Sodium 40 mg 12/03/18 14:15 12/03/18 15:33 Lovenox - SQ 40 mg DAILY [facility] Administration Furosemide 40 mg 12/04/18 10:00 Lasix - PO DAILY [facility] Hydralazine HCl 100 mg 12/03/18 22:00 Apresoline - PO TID [facility] Ceftriaxone Sodium 1 gm/ 50 mls @ 200 mls/hr 12/04/18 10:00 Dextrose IVPB DAILY [facility] Protocol Insulin Aspart 1 vial 12/03/18 22:00 Novolog Vial Sliding Scale - SQ ACHS [facility] Protocol Isosorbide Mononitrate 60 mg 12/04/18 10:00 Imdur - PO DAILY [facility] Lorazepam 2 mg 12/03/18 16:52 Ativan Injection - IVPUSH Q2H PRN AGITATION Nifedipine 90 mg 12/03/18 14:56 Procardia Xl - PO DAILY [facility] Pantoprazole Sodium 40 mg 12/04/18 10:00 Protonix Iv IVPUSH DAILY [facility] Spironolactone 50 mg 12/04/18 10:00 Aldactone - PO DAILY [facility] ASSESSMENT/PLAN: 58 y.o. M PMH HTN, DM2, HLD, CAD s/p 3x PR, COPD/asthma, R carotid stenosis s/p endarterectomy 07/2018, diastolic CHF, CKD, TIA, stable AAA, cocaine and alcohol abuse presenting with chest pain. #CVA vs. HTN encephalopathy - NIHSS 8 - Permissive HTN but per neurology, suggest treating bp if above 220/120 - Continue Atorvastatin 80mg daily, asa 81mg daily, plavix 75mg daily - F/u Brain MRI w/o contrast, carotid doppler, echo - Neuro consulted (Dr. Kent), appreciate recommendations - PT, speech and dvt prophylaxis - stroke education - cessation of drug abuse - IV diuresis and spirinolactone 50 qd with monitor for diuretic response, renal fxn and electrolytes - Continue Carvedilol 25 bid, Hydralazine 100 tid, ASA 81 qd, Plavix 75 qd, Lipitor 80 qhs, Procardia XL 90 qd, Imdur 60 qd and uptitrate as tolerated #Hypertensive emergency - Cardiology consulted, appreciate recommendations - Wean Cardene gtt - f/u echo to assess ventricular and valve fxn, mri of brain and carotid ultrasound - Holding home anti HTN meds to allow permissive HTN - F/u repeat trop & EKG #Colitis -Protonix 40mg IV daily -GI consulted (Dr. Lowe) -Hold steroids at this time; recently completed course on last d/c 1 month ago #CHF -BNP 5649.8 (6880 1 mo ago) -Hold lasix to allow for permissive HTN -daily weights -Is & Os #GOGO on CKD- resolved -Dr. Gilmore (nephro)consulted, appreciate recommendations - Continue hydralzine IV PRN. can consider addition of oral CCB once stricter BP control is required - Trend renal function and electrolytes continue statin - Avoid nephrotoxic medications - avoid beta blockers as pt has had recent cocaine use by toxicology screen #DM type 2 -ISS -BGMs #Transaminitis -Hepatitis panel neg as per 07/2018 labs -F/u AM labs -F/u RUQ U/S #Polysubstance abuse -PRN ativan if withdrawal -Utox + for cocaine, opioids (given morphine in ED) #FEN -No standing fluids -Trend lytes, replete PRN -NPO #DVT PPX -SCDs -Lovenox #Dispo ICU Visit type - Emergency Visit Emergency Visit: Yes ED Registration Date: 12/01/18 Care time: The patient presented to the Emergency Department on the above date and was hospitalized for further evaluation of their emergent condition. - New Patient This patient is new to me today: No - Critical Care Critical Care patient: No - Discharge Referral Referred to [facility] No ATTENDING PHYSICIAN STATEMENT I saw and evaluated the patient. I reviewed the resident's note and discussed the case with the resident. I agree with the resident's findings and plan as documented. SUBJECTIVE: OBJECTIVE: ASSESSMENT AND PLAN:
[2018-12-03] MEDS: ATORVASTATIN CA 80 MG TABLET (FP) PO SCH (22:16)
[2018-12-04] MEDS ORDERED: NICARDIPINE 25 MG in DEXTROSE 5%-WATER - 240 ML IVPB SCH (02:45)
[2018-12-04] MEDS ORDERED: DEXTROSE 5% IVPB SCH (06:13)
[2018-12-04] MEDS ORDERED: WATER IVPB SCH (06:13)
[2018-12-04] MEDS ORDERED: NICARDIPINE HCL IVPB SCH (06:13)
[2018-12-04] MEDS: hydrALAZINE HCL 50 MG TABLET (FP) PO SCH ×3 (06:42→21:47)
[2018-12-04] MEDS: INSULIN SLIDING SCALE (NOVOLOG) 1 VIAL SQ SCH ×4 (06:43→22:50)
[2018-12-04 07:52] LABS: EOS % 1.2 % (0-4.5); HEMATOCRIT 34.8 % (35.4-49); HEMOGLOBIN 11.3 GM/dL (11.7-16.9); LYMPH % 12.4 % (8-40); MCH 31.5 pg (25.7-33.7); MCHC 32.5 g/dl (32.0-35.9); MEAN CELL VOLUME 96.9 fl (80-96); MEAN PLT VOLUME 7.8 fl (7.5-11.1); MONO % 7.8 % (3.8-10.2); NEUT % 77.6 % (42.8-82.8); PLATELET COUNT 395 K/MM3 (134-434); RBC 3.59 M/mm3 (4.00-5.60); RDW 17.2 % (11.9-15.9); WHITE BLOOD COUNT 7.6 K/mm3 (4.0-10.0)
[2018-12-04 08:13] LABS: ALBUMIN 2.9 g/dl (3.4-5.0); BILIRUBIN,TOTAL 0.7 mg/dL (0.2-1); BLOOD UREA NITROGEN 19.6 mg/dL (7-18); CALCIUM 8.7 mg/dL (8.5-10.1); CREATININE 1.3 mg/dL (0.55-1.3); MAGNESIUM 1.8 mg/dL (1.8-2.4); PHOSPHOROUS 3.3 mg/dL (2.5-4.9); POTASSIUM 3.7 mmol/L (3.5-5.1); TOT PROT 6.3 g/dl (6.4-8.2)
[2018-12-04] MEDS ORDERED: DEXTROSE 5%-WATER - 50 ML IVPB ONE (08:33)
[2018-12-04] MEDS ORDERED: cefTRIAXone SODIUM 1 GM VIAL ONE (08:33)
[2018-12-04] MEDS: PANTOPRAZOLE SODIUM 40 MG VIAL IVPUSH SCH (09:16)
[2018-12-04] MEDS: CEFTRIAXONE 1 GM in DEXTROSE 5%-WATER - 50 ML IVPB SCH (09:16)
[2018-12-04] MEDS: FUROSEMIDE 40 MG TABLET (FP) PO SCH (09:17)
[2018-12-04] MEDS: ASPIRIN COATED 81 MG TABLET.EC PO SCH (09:17)
[2018-12-04] MEDS: ENOXAPARIN NA (PORCINE) 40 MG/0.4 ML DISP.SYRIN SQ SCH (09:17)
[2018-12-04] MEDS: CLOPIDOGREL BISULFATE 75 MG TABLET (FP) PO SCH (09:18)
[2018-12-04] MEDS: NIFEdipine E.R. 30 MG TABLET (FP) PO SCH (09:18)
[2018-12-04] MEDS: CARVEDILOL 25 MG TABLET (FP) PO SCH ×2 (09:18→21:47)
[2018-12-04] MEDS: SPIRONOLACTONE 25 MG TABLET (FP) PO SCH (09:18)
[2018-12-04] MEDS ORDERED: PT OWN MED DRAWER 7, Y5N ONE (09:22)
[2018-12-04] MEDS: ISOSORBIDE MONONITRATE 60 MG TAB.SR.24H (FP) PO SCH (09:23)
--- NOTE | 2018-12-04 10:05 | PN ---
Teaching Attending Note Name of Resident: Roxane Lauren ATTENDING PHYSICIAN STATEMENT I saw and evaluated the patient. I reviewed the resident's note and discussed the case with the resident. I agree with the resident's findings and plan as documented. SUBJECTIVE: Patient seen and examined in the ICU. Awake and alert. Denies CP or dizziness. Still with RUE weakness 2/5 and pain. Placed back on Cardene due to elevated BP overnight. Intake & Output 12/01/18 12/02/18 12/03/18 12/04/18 23:59 23:59 23:59 23:59 Intake Total 2125 1650 Output Total 1700 3300 1400 Balance -1700 -1175 250 Weight 240 lb 254 lb 6 oz 254 lb Last Vital Signs Temp Pulse Resp BP Pulse Ox 97.3 F L 83 22 H 155/102 H 98 12/04/18 05:30 12/04/18 06:30 12/04/18 06:30 12/04/18 06:30 12/04/18 00:27 Active Medications Albuterol Sulfate (Ventolin 0.083% Nebulizer Soln -) 1 amp NEB RQID PRN PRN Reason: SHORT OF BREATH/WHEEZING Last Admin: 12/03/18 20:04 Dose: 1 amp Aspirin (Ecotrin -) 81 mg PO DAILY [facility] Last Admin: 12/04/18 09:17 Dose: 81 mg Atorvastatin Calcium (Lipitor -) 80 mg PO HS [facility] Last Admin: 12/03/18 22:16 Dose: 80 mg Carvedilol (Coreg -) 25 mg PO BID [facility] Last Admin: 12/04/18 09:18 Dose: 25 mg Clopidogrel Bisulfate (Plavix -) 75 mg PO DAILY [facility] Last Admin: 12/04/18 09:18 Dose: 75 mg Enoxaparin Sodium (Lovenox -) 40 mg SQ DAILY [facility] Last Admin: 12/04/18 09:17 Dose: 40 mg Furosemide (Lasix -) 40 mg PO DAILY [facility] Last Admin: 12/04/18 09:17 Dose: 40 mg Hydralazine HCl (Apresoline -) 100 mg PO TID [facility] Last Admin: 12/04/18 06:42 Dose: 100 mg Ceftriaxone Sodium 1 gm/ (Dextrose) 50 mls @ 200 mls/hr IVPB DAILY [facility]; Protocol Last Admin: 12/04/18 09:16 Dose: 200 mls/hr Insulin Aspart (Novolog Vial Sliding Scale -) 1 vial SQ ACHS [facility]; Protocol Last Admin: 12/04/18 06:43 Dose: 6 units Isosorbide Mononitrate (Imdur -) 60 mg PO DAILY [facility] Last Admin: 12/04/18 09:23 Dose: 60 mg Lorazepam (Ativan Injection -) 2 mg IVPUSH Q2H PRN PRN Reason: AGITATION Nifedipine (Procardia Xl -) 90 mg PO DAILY [facility] Last Admin: 12/04/18 09:18 Dose: 90 mg Pantoprazole Sodium (Protonix Iv) 40 mg IVPUSH DAILY [facility] Last Admin: 12/04/18 09:16 Dose: 40 mg Spironolactone (Aldactone -) 50 mg PO DAILY [facility] Last Admin: 12/04/18 09:18 Dose: 50 mg GENERAL: Awake and alert, NAD HEAD: Normal with no signs of trauma. EYES: Pupils equal, round and reactive to light, extraocular movements intact, sclera anicteric, conjunctiva clear. No lid lag. EARS, NOSE, THROAT: Ears normal, nares patent, oropharynx clear without exudates. Moist mucous membranes. NECK: Normal range of motion, supple without lymphadenopathy, JVD, or masses. LUNGS: Breath sounds equal, clear to auscultation bilaterally. No wheezes, and no crackles. No accessory muscle use. HEART: Regular rate and rhythm, normal S1 and S2 without murmur, rub or gallop. ABDOMEN: Soft, nontender, not distended, normoactive bowel sounds, no guarding, no rebound, no masses. No hepatomegaly or splenomegaly. MUSCULOSKELETAL: Normal range of motion at all joints. No bony deformities or tenderness. No CVA tenderness. UPPER EXTREMITIES: 2+ pulses, warm, well-perfused. No cyanosis. No clubbing. Cap refill <2 seconds. No peripheral edema. LOWER EXTREMITIES: 2+ pulses, warm, well-perfused. No calf tenderness. No peripheral edema. NEUROLOGICAL: RUE: 2/5, Cranial nerves II-XII intact. Normal speech. PSYCHIATRIC: Cooperative. Good eye contact. SKIN: Warm, dry, normal turgor, no rashes or lesions noted. Laboratory Results - last 24 hr 12/03/18 12/03/18 12/03/18 11:59 16:31 22:00 WBC RBC Hgb Hct MCV MCH MCHC RDW Plt Count MPV Absolute Neuts (auto) Neutrophils % Lymphocytes % Monocytes % Eosinophils % Basophils % Nucleated RBC % Sodium Potassium Chloride Carbon Dioxide Anion Gap BUN Creatinine Est GFR (CKD-EPI)AfAm Est GFR (CKD-EPI)NonAf POC Glucometer 312 161 253 Random Glucose Calcium Phosphorus Magnesium Total Bilirubin AST ALT Alkaline Phosphatase Total Protein Albumin 12/04/18 12/04/18 12/04/18 05:44 05:44 06:36 WBC 7.6 RBC 3.59 L Hgb 11.3 L Hct 34.8 L MCV 96.9 H MCH 31.5 MCHC 32.5 RDW 17.2 H Plt Count 395 D MPV 7.8 Absolute Neuts (auto) 5.9 Neutrophils % 77.6 Lymphocytes % 12.4 Monocytes % 7.8 Eosinophils % 1.2 Basophils % 1.0 Nucleated RBC % 0 Sodium 138 Potassium 3.7 Chloride 103 Carbon Dioxide 26 Anion Gap 9 BUN 19.6 H Creatinine 1.3 Est GFR (CKD-EPI)AfAm 70.20 Est GFR (CKD-EPI)NonAf 60.57 POC Glucometer 261 Random Glucose 290 H Calcium 8.7 Phosphorus 3.3 Magnesium 1.8 Total Bilirubin 0.7 AST 27 ALT 85 H Alkaline Phosphatase 228 H Total Protein 6.3 L Albumin 2.9 L ASSESSMENT/PLAN: Acute CVA Cocaine abuse Hypertensive Urgency HTN HLD DM S/P AMI with PCI Diastolic dysfunction COPD/asthma Restart home BP meds Titrate for SBP 140 to 160 No smoking Monitor for withdrawal Antiplatelet O2 as needed BD TX PRN Cardiac Telemetry monitoring Dr Azar
--- NOTE | 2018-12-04 10:33 | PN ---
Physical Exam: SUBJECTIVE: Patient seen and examined seated at chair eating breakfast. pt states he is feeling better but still states that his sensation is impaired on RUE and RLE. pt states he still is having a hard time moving RUE. OBJECTIVE: Vital Signs Period Temp Pulse Resp BP Sys/Caal Pulse Ox Last 24 Hr 97.0 F-98 F 77-94 16-24 144-186/87-126 98 GENERAL: The patient is awake, alert, and fully oriented, in no acute distress. LUNGS: Breath sounds equal, clear to auscultation bilaterally, no wheezes, no crackles, no accessory muscle use. HEART: Regular rate and rhythm, S1, S2 without murmur, rub or gallop. ABDOMEN: Soft, nontender, nondistended, normoactive bowel sounds, no guarding EXTREMITIES: 2+ pulses, warm, well-perfused, 1+ nonpitting edema. decreased ROM of RUE. NEUROLOGICAL: Cranial nerves II through XII grossly intact. Normal speech, gait not observed. SKIN: Warm, dry, normal turgor, no rashes or lesions noted Laboratory Results - last 24 hr 12/04/18 12/04/18 12/04/18 05:44 05:44 06:36 WBC 7.6 RBC 3.59 L Hgb 11.3 L Hct 34.8 L MCV 96.9 H MCH 31.5 MCHC 32.5 RDW 17.2 H Plt Count 395 D MPV 7.8 Absolute Neuts (auto) 5.9 Neutrophils % 77.6 Lymphocytes % 12.4 Monocytes % 7.8 Eosinophils % 1.2 Basophils % 1.0 Nucleated RBC % 0 Sodium 138 Potassium 3.7 Chloride 103 Carbon Dioxide 26 Anion Gap 9 BUN 19.6 H Creatinine 1.3 Est GFR (CKD-EPI)AfAm 70.20 Est GFR (CKD-EPI)NonAf 60.57 POC Glucometer 261 Random Glucose 290 H Calcium 8.7 Phosphorus 3.3 Magnesium 1.8 Total Bilirubin 0.7 AST 27 ALT 85 H Alkaline Phosphatase 228 H Total Protein 6.3 L Albumin 2.9 L Current Medications Albuterol Sulfate (Ventolin 0.083% Nebulizer Soln -) 1 amp NEB RQID PRN PRN Reason: SHORT OF BREATH/WHEEZING Last Admin: 12/03/18 20:04 Dose: 1 amp Aspirin (Ecotrin -) 81 mg PO DAILY [facility] Last Admin: 12/04/18 09:17 Dose: 81 mg Atorvastatin Calcium (Lipitor -) 80 mg PO HS [facility] Last Admin: 12/03/18 22:16 Dose: 80 mg Carvedilol (Coreg -) 25 mg PO BID [facility] Last Admin: 12/04/18 09:18 Dose: 25 mg Clopidogrel Bisulfate (Plavix -) 75 mg PO DAILY [facility] Last Admin: 12/04/18 09:18 Dose: 75 mg Enoxaparin Sodium (Lovenox -) 40 mg SQ DAILY [facility] Last Admin: 12/04/18 09:17 Dose: 40 mg Furosemide (Lasix -) 40 mg PO DAILY [facility] Last Admin: 12/04/18 09:17 Dose: 40 mg Hydralazine HCl (Apresoline -) 100 mg PO TID [facility] Last Admin: 12/04/18 06:42 Dose: 100 mg Ceftriaxone Sodium 1 gm/ (Dextrose) 50 mls @ 200 mls/hr IVPB DAILY [facility]; Protocol Last Admin: 12/04/18 09:16 Dose: 200 mls/hr Insulin Aspart (Novolog Vial Sliding Scale -) 1 vial SQ ACHS [facility]; Protocol Last Admin: 12/04/18 06:43 Dose: 6 units Isosorbide Mononitrate (Imdur -) 60 mg PO DAILY [facility] Last Admin: 12/04/18 09:23 Dose: 60 mg Lorazepam (Ativan Injection -) 2 mg IVPUSH Q2H PRN PRN Reason: AGITATION Nifedipine (Procardia Xl -) 90 mg PO DAILY [facility] Last Admin: 12/04/18 09:18 Dose: 90 mg Pantoprazole Sodium (Protonix Iv) 40 mg IVPUSH DAILY [facility] Last Admin: 12/04/18 09:16 Dose: 40 mg Spironolactone (Aldactone -) 50 mg PO DAILY [facility] Last Admin: 12/04/18 09:18 Dose: 50 mg IMAGING: CT Chest, Abd/ pel:The thoracoabdominal aorta demonstrates no CT evidence of dissection. As on the prior CT exam of 04/16/2018 there is stable fusiform aneurysmal dilatation of the infrarenal aorta with a 4.3 cm diameter. Interval development of mild pericolonic soft tissue edema is noted adjacent to the mid and lower thirds of the descending colon as well as the upper third of the sigmoid colon. There is possible associated mild concentric wall thickening along the same region. Numerous diverticula are seen. On the basis of the current exam it is uncertain whether these findings are due to acute colitis ( ischemic versus inflammatory/infectious) or acute uncomplicated diverticulitis. Correlate clinically. Development of a very small amount of free fluid is seen within the abdomen and pelvis. 0.7 x 0.2 cm nonobstructing right renal calculus. In comparison to a chest CT exam of 11/02/2018 interval development of small bilateral pleural effusions is noted as well as mild increase concentric subcutaneous soft tissue stranding at the level of the abdomen and pelvis. Note is again made of minimal to mild bilateral pneumonitis groundglass interstitial opacity which may be mildly increased - ? due to vascular congestion. Increased nonspecific mediastinal lymphadenopathy is noted. Mild cardiomegaly. Note is again made of dilatation of the main pulmonary artery with a 4.3 cm diameter consistent with debris hypertension. A 2 mm right upper lobe nodule noted on the previous exam is difficult to visualize on the current exam. Correlate with 3-4 month follow-up CT Head CT: No CT evidence of intracranial hemorrhage. A chronic right posterior temporal cortical infarct is noted which was not present at the time of a CT exam of 08/06/2018. Note is again made of chronic right frontal and right parietal cortical infarcts. Shoulder XR: 2 views of the right shoulder reveal some arthritic changes with possible old Hill-Sachs deformity but no sign of an acute fracture or subluxation and no sign of blastic or lytic changes. Since 2018, there is no sign of an acute change. Correlation recommended Carotid u/s Impression: There is a [id number]-[id number] sized soft plaque at the right common carotid bifurcation/bulb without evidence of hemodynamically significant stenosis. There are also moderate-sized plaques with calcifications at the left common carotid bifurcation/ bulb with borderline hemodynamically significant stenosis. Post plaque peak systolic velocity obtained is 124 cm/s. A peak systolic velocity of 125 -230 cm/s is compatible with hemodynamically significant stenosis of 50-69%, NASCET criteria. Correlation with CTA would be helpful for further evaluation of the degree of stenosis Abdomen u/s IMPRESSION: 1. Right pleural effusion. 2. Probable diffuse fatty infiltration of the liver. Limited study as described above. Brain MRI: IMPRESSION: No acute infarct is identified. In comparison to a MRI exam of 08/06/2018 interval development of a chronic right posterior temporal cortical infarct is noted. The remainder of the exam appears unchanged. Chronic right frontal cortical infarct. Chronic right parietal cortical infarct. Mild to moderate periventricular chronic microvascular ischemic changes. ASSESSMENT/PLAN: 58 yo M w/ PMH of HTN, HLD, DM, HI (x3 w/ stents), substance abuse ( cocaine), HFpEF, COPD presented to the ED with chest pain and hypertensive emergency. Pt is admitted to ICU for management of hypertensive emergency. On admission, pt was found to have right arm weakness prompting stroke workup. Neuro: Acute stroke vs hypertensive encephalopathy , TIA post right CEA, 50-69% left carotid -AAOx3 -NIHSS 3 -Neuro recs appreciated - brain MRI reviewed, no acute infarct, see above findings -carotid u/s showing hemodynamic stenosis of L common carotid, see above report. vascular recs appreciated Cardio: Hypertensive emergency 2/2 medication noncompliance, CAD , Hx of HI, ( s /p PCI/ stent w/ demand ischemia) , HLD, HFpEF, 4.3 cm infrarenal AAA with mural thrombus -s/p nicardipine drip . nicardipine drip was restarted overnight 2/2 SBP>180s. d /c this am -c/w asa, plavix, statin -c/w PO lasix 40 -counselled on importance of drug cessation -c/w coreg 25 BID, aldactone 50 daily, hydralazine 100 tid, asa , plavix 75, lipitor 80, procardia 90, imdur 60 Pulm: COPD -on RA saturating well -SpO2>90% -ventolin prn GI: transaminitis, fatty liver disease -abdomen u/s noted above -Ct abdomen shows thickening of sigmoid colon although no clinical evidence of ongoing colitis or diverticulitis. There are diverticula noted. -continue to monitor - colonoscopy as outpt -GI recs appreciated Nephro: CKD -monitor Cr, baseline 1.3-1.4 -avoid nephrotoxic agents Endo: DM -BGM -ISS ID - leukocytosis improving -lactate 1.0 -c/w ceftriaxone -will d/c metronidazole since colitis suspicion is low. DVT ppx: Lovenox F/E/N -diabetic/ sodium diet -monitor lytes Dispo: transfer to tele Visit type - Emergency Visit Emergency Visit: No - New Patient This patient is new to me today: No - Critical Care Critical Care patient: Yes Total Critical Care Time (in minutes): 36 Critical Care Statement: The care of this patient involved high complexity decision making to prevent further life threatening deterioration of the patient 's condition and/or to evaluate & treat vital organ system(s) failure or risk of failure. ATTENDING PHYSICIAN STATEMENT I saw and evaluated the patient. I reviewed the resident's note and discussed the case with the resident. I agree with the resident's findings and plan as documented. SUBJECTIVE: OBJECTIVE: ASSESSMENT AND PLAN:
--- NOTE | 2018-12-04 10:48 | PN ---
Progress Note (short form) - Note Progress Note: Patient is feeling better with no acute distress. Vital Signs Temperature 97.2 F L 12/04/18 10:00 Pulse Rate 81 12/04/18 10:00 Respiratory Rate 19 12/04/18 10:00 Blood Pressure 158/92 12/04/18 10:00 O2 Sat by Pulse Oximetry (%) 98 12/04/18 09:00 GENERAL: The patient is awake, alert, and fully oriented, in no acute distress. HEAD: Normal with no signs of trauma. EYES: PERRL, extraocular movements intact, sclera anicteric, conjunctiva clear. ENT: Ears normal, oropharynx clear without exudates, moist mucous membranes. NECK: Trachea midline, full range of motion, supple. LUNGS: decreased Breath sounds bl bilaterally, no wheezes, no crackles, no accessory muscle use. HEART: Regular rate and rhythm, S1, S2 without murmur, rub or gallop. ABDOMEN: Soft, NT,ND, normoactive bowel sounds, no guarding, no rebound, no hepatosplenomegaly, no masses. EXTREMITIES: 2+ pulses, warm, well-perfused, no edema. NEUROLOGICAL: Cranial nerves II through XII grossly intact. Normal speech now , gait not observed. PSYCH: Normal mood, normal affect. SKIN: Warm, dry, normal turgor, no rashes or lesions noted CBCD WBC 7.6 K/mm3 (4.0-10.0) 12/04/18 05:44 RBC 3.59 M/mm3 (4.00-5.60) L 12/04/18 05:44 Hgb 11.3 GM/dL (11.7-16.9) L 12/04/18 05:44 Hct 34.8 % (35.4-49) L 12/04/18 05:44 MCV 96.9 fl (80-96) H 12/04/18 05:44 MCHC 32.5 g/dl (32.0-35.9) 12/04/18 05:44 RDW 17.2 % (11.9-15.9) H 12/04/18 05:44 Plt Count 395 K/MM3 (134-434) D 12/04/18 05:44 MPV 7.8 fl (7.5-11.1) 12/04/18 05:44 CMP Sodium 138 mmol/L (136-145) 12/04/18 05:44 Potassium 3.7 mmol/L (3.5-5.1) 12/04/18 05:44 Chloride 103 mmol/L (98-107) 12/04/18 05:44 Carbon Dioxide 26 mmol/L (21-32) 12/04/18 05:44 Anion Gap 9 MMOL/L (8-16) 12/04/18 05:44 BUN 19.6 mg/dL (7-18) H 12/04/18 05:44 Creatinine 1.3 mg/dL (0.55-1.3) 12/04/18 05:44 Random Glucose 290 mg/dL (74-106) H 12/04/18 05:44 Calcium 8.7 mg/dL (8.5-10.1) 12/04/18 05:44 Total Bilirubin 0.7 mg/dL (0.2-1) 12/04/18 05:44 AST 27 U/L (15-37) 12/04/18 05:44 ALT 85 U/L (13-61) H 12/04/18 05:44 Alkaline Phosphatase 228 U/L (45-117) H 12/04/18 05:44 Total Protein 6.3 g/dl (6.4-8.2) L 12/04/18 05:44 Albumin 2.9 g/dl (3.4-5.0) L 12/04/18 05:44 CARDIAC ENZYMES Creatine Kinase 160 U/L (26-308) 12/01/18 20:10 Troponin I 0.06 ng/ml (0.00-0.05) H 12/02/18 18:30 Current Medications Generic Name Dose Route Start Last Admin Trade Name Freq PRN Reason Stop Dose Admin Albuterol Sulfate 1 amp 12/03/18 16:52 12/03/18 20:04 Ventolin 0.083% Nebulizer Soln - NEB 1 amp RQID PRN Administration SHORT OF BREATH/WHEEZING Aspirin 81 mg 12/04/18 10:00 12/04/18 09:17 Ecotrin - PO 81 mg DAILY [facility] Administration Atorvastatin Calcium 80 mg 12/03/18 22:00 12/03/18 22:16 Lipitor - PO 80 mg HS [facility] Administration Carvedilol 25 mg 12/03/18 19:45 12/04/18 09:18 Coreg - PO 25 mg BID [facility] Administration Clopidogrel Bisulfate 75 mg 12/04/18 10:00 12/04/18 09:18 Plavix - PO 75 mg DAILY [facility] Administration Enoxaparin Sodium 40 mg 12/03/18 14:15 12/04/18 09:17 Lovenox - SQ 40 mg DAILY [facility] Administration Furosemide 40 mg 12/04/18 10:00 12/04/18 09:17 Lasix - PO 40 mg DAILY [facility] Administration Hydralazine HCl 100 mg 12/03/18 19:45 12/04/18 06:42 Apresoline - PO 100 mg TID [facility] Administration Ceftriaxone Sodium 1 gm/ 50 mls @ 200 mls/hr 12/04/18 10:00 12/04/18 09:16 Dextrose IVPB 200 mls/hr DAILY COUNTS INCLUDE 234 BEDS AT THE [facility] Administration Protocol Insulin Aspart 1 vial 12/03/18 22:00 12/04/18 06:43 Novolog Vial Sliding Scale - SQ 6 units ACHS [facility] Administration Protocol Isosorbide Mononitrate 60 mg 12/04/18 10:00 12/04/18 09:23 Imdur - PO 60 mg DAILY [facility] Administration Lorazepam 2 mg 12/03/18 16:52 Ativan Injection - IVPUSH Q2H PRN AGIT[facility] Nifedipine 90 mg 12/03/18 14:56 12/04/18 09:18 Procardia Xl - PO 90 mg DAILY [facility] Administration Pantoprazole Sodium 40 mg 12/04/18 10:00 12/04/18 09:16 Protonix Iv IVPUSH 40 mg DAILY [facility] Administration Spironolactone 50 mg 12/04/18 10:00 12/04/18 09:18 Aldactone - PO 50 mg DAILY [facility] Administration Home Medications Medication Instructions Recorded Isosorbide Mononitrate [Imdur -] 60 mg PO DAILY #30 tab.sr.24h 07/02/18 Hydralazine HCl 100 mg PO TID 08/09/18 Atorvastatin Ca [Lipitor] 80 mg PO HS #30 tablet 08/17/18 Carvedilol [Coreg -] 25 mg PO BID #60 tablet 08/17/18 Spironolactone [Aldactone -] 50 mg PO DAILY #30 tablet 08/17/18 Clopidogrel Bisulfate [Plavix] 75 mg PO DAILY 10/19/18 Cyclobenzaprine HCl 5 mg PO Q8H PRN #6 tablet 10/20/18 Methyl Salicylate/Menthol Oint 1 applic TP DAILY PRN #1 applic 10/20/18 [Analgesic [place] [employer] -] Albuterol 0.083% Nebulizer Jane 1 amp NEB Q4H #10 amp 11/01/18 [Ventolin 0.083% Nebulizer Soln -] Miscellaneous [employer] 1 each .ROUTE ASDIR #1 kit 11/03/18 [Glucometer Device] Miscellaneous Medical Supply 1 each .ROUTE ASDIR #1 box 11/03/18 [Glucometer Test Strips #100] Aspirin Coated [Ecotrin -] 81 mg PO DAILY tablet.ec 11/04/18 Furosemide [Lasix -] 40 mg PO DAILY tablet 11/04/18 Insulin (Levemir) [Levemir Vial] 30 units SQ 0700,2200 units 11/04/18 Insulin Sliding Scale [Novolog 1 vial SQ ACHS units 11/04/18 Vial Sliding Scale -] Nifedipine ER [Procardia XL -] 90 mg PO DAILY tab.er.24 11/04/18 Sitagliptin Phosphate [Januvia -] 25 mg PO DAILY@0700 #30 tab 11/04/18 Us of carotids: small to moderate size soft plaque at the right common carotid bifurcation/bulb without evidence of significant stenosis. MRI of brain: no acute infarct, chronic right posterior temporal cortical infarct. chronic right frontal, and parietal cortical infarct. Mild to moderate periventricular chronic microvascular ischemic changes. ASSESSMENT AND PLAN: Patient is a 58yo male with PMHx of HTN, cocaine use, HLP, CAD s/p PA , chronic diastolic CHF, COPD, nicotine dependence, DM , who presented with CP. He was found to have acute pulm edema with HTN emergency. #Hypertensive Emergency: s/p cardene drip, continue with hydralazine po, procardia xl, coreg, aldactone #Chronic right posterior temporal cortical infarct and chronic right frontal and right parietal cortical infarcts.on Lipitor 80mg hs, aspirin continue. # Polysubstance abuse: detox consult , patient was informed that if he does not stop , he can damage all his organs. #Right maxillary sinus mucus retention cyst/polyp follow outpatient # Hx of CAD: continue home meds, plavix/asa/lipitor/imdur 60mg #Hx of HLD : continue lipitor #T2DM on levemir 30 ( home dose 30 BID) , cont SSI #Hx of R Carotid artery stenosis (95% blockage) s/p endarterectomy by dr. Johnson #chronic diastolic heart failure : Continue lasix, spironolactone 50mg , coreg 25mg bid/imdur continue #COPD: on Nebulizer txments. # Acute colitis (ischemic vs inflammatory/infectious) /acute uncomplicated diverticulitis: no further antibiotic needed as per G #Infrarenal aortic aneurysm: 4.3 cm in diameter ; further w/u as an outpatient by dr Johnson # Right renal calculus: nonobstructing 0.7x0.2cm continue hydration #Mediastinal lymphadenopathy increased; nonspecific DVT PX :SCds for now heparin sq Dysphagia screening. follow MRI Visit type - Emergency Visit Emergency Visit: Yes ED Registration Date: 12/01/18 Care time: The patient presented to the Emergency Department on the above date and was hospitalized for further evaluation of their emergent condition. - New Patient This patient is new to me today: No - Critical Care Critical Care patient: No - Discharge Referral Referred to [facility] No
--- NOTE | 2018-12-04 11:26 | CON.NEURO ---
Consult - Past Medical History Cardio/Vascular: Yes: CAD (S/P PCI), HTN, Hyperlipdemia, GA, Other (dilated cardiomyopathy (nonischemic), LV systolic dysfunction, ) Pulmonary: Yes: Asthma Gastrointestinal: Yes: GERD Renal/: Yes: Renal Inusuff Musculoskeletal: Yes: Chronic low back pain Additional Medical History: Rightt achilles tendon tear. Rightt testicular torsion. Angioedema due to ACEI - Past Surgical History Past Surgical History: Yes: AAA Repair, Carotid Endarterectomy (right) Additional Surgical History: Ankle surgery, right testicular torsion surgery - Alcohol/Substance Use Hx Alcohol Use: Yes ("2 beers per week") Number of Drinks Daily: 3 (beer) History of Substance Use: reports: Cocaine - Smoking History Smoking history: Current every day smoker Have you smoked in the past 12 months: No Aproximately how many cigarettes per day: 2 If you are a former smoker, when did you quit?: smokes 2 x per week - Social History Usual Living Arrangement: Alone ADL: Independent Occupation: No working. On disability History of Recent Travel: No Home Medications - Allergies Allergies/Adverse Reactions: Allergies Allergy/AdvReac Type Severity Reaction Status Date / Time IRMA Inhibitors Allergy Verified 12/01/18 18:50 - Home Medications Home Medications: Ambulatory Orders Isosorbide Mononitrate [Imdur -] 60 mg PO DAILY #30 tab.sr.24h 07/02/18 Hydralazine HCl 100 mg PO TID 08/09/18 Atorvastatin Ca [Lipitor] 80 mg PO HS #30 tablet 08/17/18 Carvedilol [Coreg -] 25 mg PO BID #60 tablet 08/17/18 Spironolactone [Aldactone -] 50 mg PO DAILY #30 tablet 08/17/18 Clopidogrel Bisulfate [Plavix] 75 mg PO DAILY 10/19/18 Cyclobenzaprine HCl 5 mg PO Q8H PRN #6 tablet 10/20/18 Methyl Salicylate/Menthol Oint [Analgesic [place] -] 1 applic TP DAILY PRN #1 applic 10/20/18 Albuterol 0.083% Nebulizer Jane [Ventolin 0.083% Nebulizer Soln -] 1 amp NEB Q4H #10 amp 11/01/18 Miscellaneous Medical Supply [Glucometer Device] 1 each .ROUTE ASDIR #1 kit 01/11 Miscellaneous Medical Supply [Glucometer Test Strips #100] 1 each .ROUTE ASDIR # 1 box 11/03/18 Aspirin Coated [Ecotrin -] 81 mg PO DAILY tablet.ec 11/04/18 Furosemide [Lasix -] 40 mg PO DAILY tablet 11/04/18 Insulin (Levemir) [Levemir Vial] 30 units SQ 0700,2200 units 11/04/18 Insulin Sliding Scale [Novolog Vial Sliding Scale -] 1 vial SQ ACHS units 11/04 Nifedipine ER [Procardia XL -] 90 mg PO DAILY tab.er.24 11/04/18 Sitagliptin Phosphate [Januvia -] 25 mg PO DAILY@0700 #30 tab 11/04/18 Physical Exam-Neuro Vital Signs: Vital Signs Temperature 97.2 F L 12/04/18 10:00 Pulse Rate 81 12/04/18 10:00 Respiratory Rate 19 12/04/18 10:00 Blood Pressure 158/92 12/04/18 10:00 O2 Sat by Pulse Oximetry (%) 98 12/04/18 09:00 Labs: CBC, BMP 12/04/18 05:44 12/04/18 05:44 INR, PTT INR 1.22 (0.83-1.09) H 12/01/18 20:10 Assessment/Plan 58 year old male history of DM,HLD,CAD, COPD, Right carotid endartectomy, chf, ckd, stable aa. Patient has came with right arm and leg weakenss with slurred of speech, his ct head unremarkable. Patient has cocaine positive and he ran out of medication recently. Patient is feeling better adn still have right sided weakness. MRI of brain is normal. no acute distress. 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 Assessment : Right sided hemiparesis with slurring of speech , history of cocaine abuse and noncompliant with his bp medication. mri showed no acute findings. Patient may have hemiparesis due to worsening of old stroke due to cocaine and uncontrolled bp vs sometime small lacunar stroke can be missed on mri of brain. Plan:bp medication has been resumed - mri of brain and carotid ultrasound result reviewed, and vascular surgery consult pending - continue aspirin, plavix and statin -pt, speech and dvt prophylaxis - stroke education - cessation of drug abuse Thanking you so much Yadiel Kent MD
--- NOTE | 2018-12-04 14:32 | PN ---
Progress Note, Physician History of Present Illness: Chest pain, SOB, abdominal distension, hypertensive urgency improving, still reports right UE weakness, but slurring of speech has resolved. Now OOB to chair. - Current Medication List Current Medications: Active Medications Albuterol Sulfate (Ventolin 0.083% Nebulizer Soln -) 1 amp NEB RQID PRN PRN Reason: SHORT OF BREATH/WHEEZING Last Admin: 12/03/18 20:04 Dose: 1 amp Aspirin (Ecotrin -) 81 mg PO DAILY [facility] Last Admin: 12/04/18 09:17 Dose: 81 mg Atorvastatin Calcium (Lipitor -) 80 mg PO HS [facility] Last Admin: 12/03/18 22:16 Dose: 80 mg Carvedilol (Coreg -) 25 mg PO BID [facility] Last Admin: 12/04/18 09:18 Dose: 25 mg Clopidogrel Bisulfate (Plavix -) 75 mg PO DAILY [facility] Last Admin: 12/04/18 09:18 Dose: 75 mg Enoxaparin Sodium (Lovenox -) 40 mg SQ DAILY [facility] Last Admin: 12/04/18 09:17 Dose: 40 mg Furosemide (Lasix -) 40 mg PO DAILY [facility] Last Admin: 12/04/18 09:17 Dose: 40 mg Hydralazine HCl (Apresoline -) 100 mg PO TID [facility] Last Admin: 12/04/18 06:42 Dose: 100 mg Ceftriaxone Sodium 1 gm/ (Dextrose) 50 mls @ 200 mls/hr IVPB DAILY [facility]; Protocol Last Admin: 12/04/18 09:16 Dose: 200 mls/hr Insulin Aspart (Novolog Vial Sliding Scale -) 1 vial SQ ACHS [facility]; Protocol Last Admin: 12/04/18 11:02 Dose: 8 units Isosorbide Mononitrate (Imdur -) 60 mg PO DAILY [facility] Last Admin: 12/04/18 09:23 Dose: 60 mg Lorazepam (Ativan Injection -) 2 mg IVPUSH Q2H PRN PRN Reason: AGITATION Nifedipine (Procardia Xl -) 90 mg PO DAILY [facility] Last Admin: 12/04/18 09:18 Dose: 90 mg Pantoprazole Sodium (Protonix Iv) 40 mg IVPUSH DAILY [facility] Last Admin: 12/04/18 09:16 Dose: 40 mg Spironolactone (Aldactone -) 50 mg PO DAILY [facility] Last Admin: 12/04/18 09:18 Dose: 50 mg - Objective Vital Signs: Vital Signs Temperature 97.6 F 12/04/18 14:00 Pulse Rate 84 12/04/18 14:00 Respiratory Rate 19 12/04/18 14:00 Blood Pressure 161/101 H 12/04/18 14:00 O2 Sat by Pulse Oximetry (%) 98 12/04/18 09:00 Constitutional: Yes: No Distress, Calm, Thin Neck: Yes: Supple Cardiovascular: Yes: Regular Rate and Rhythm Respiratory: Yes: Regular, CTA Bilaterally Gastrointestinal: Yes: Normal Bowel Sounds, Soft Edema: Yes Edema: LLE: Trace, RLE: Trace Labs: CBC, BMP 12/04/18 05:44 12/04/18 05:44 INR, PTT INR 1.22 (0.83-1.09) H 12/01/18 20:10 - ....Imaging EKG: Report Reviewed (Tele: NSR, no PAF) Problem List - Problems (1) Hypertensive emergency Code(s): I16.1 - HYPERTENSIVE EMERGENCY (2) Cerebrovascular disease Code(s): I67.9 - CEREBROVASCULAR DISEASE, UNSPECIFIED (3) Chest pain Code(s): R07.9 - CHEST PAIN, UNSPECIFIED Qualifiers: Chest pain type: precordial pain Qualified Code(s): R07.2 - Precordial pain (4) Cocaine abuse Code(s): F14.10 - COCAINE ABUSE, UNCOMPLICATED (5) Diabetic nephropathy associated with type 2 diabetes mellitus Code(s): E11.21 - TYPE 2 DIABETES MELLITUS WITH DIABETIC NEPHROPATHY (6) Shortness of breath Code(s): R06.02 - SHORTNESS OF BREATH (7) Acute on chronic diastolic (congestive) heart failure Code(s): I50.33 - ACUTE ON CHRONIC DIASTOLIC (CONGESTIVE) HEART FAILURE (8) Alcohol dependence Code(s): F10.20 - ALCOHOL DEPENDENCE, UNCOMPLICATED Qualifiers: Substance use status: unspecified alcohol-induced disorder Qualified Code(s ): F10.29 - Alcohol dependence with unspecified alcohol-induced disorder (9) CAD (coronary artery disease) Code(s): I25.10 - ATHSCL HEART DISEASE OF [place] CORONARY ARTERY W/O ANG PCTRS Qualifiers: Coronary Disease-Associated Artery/Lesion type: [place] artery [place] vs. transplanted heart: [place] heart Associated angina: without angina Qualified Code(s): I25.10 - Atherosclerotic heart disease of [place] coronary artery without angina pectoris (10) Hyperlipidemia Code(s): E78.5 - HYPERLIPIDEMIA, UNSPECIFIED Qualifiers: Hyperlipidemia type: pure hypercholesterolemia Qualified Code(s): E78.00 - Pure hypercholesterolemia, unspecified (11) Postop carotid endarterectomy surveillance, encounter for Code(s): Z48.812 - ENCNTR FOR SURGICAL AFTCR FOLLOWING SURGERY ON THE CIRC SYS Assessment/Plan 12/02/2018 Mri of brain: No acute stroke, old right posterior temporal cortical infarct 12/02/2018 Carotid ultrasound should left moderate stenosis and vacular surgery consult pending 12/02/2018 Echo: Normal LV size and fxn with mod cLVH, normal RV size and fxn, mild SHAHANA, mild MR, TR, AR 12/01/2018 Ct head right 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 Acute stroke vs hypertensive encephelopathy 2. Hypertensive emergency due to medication noncompliance 3. Diastolic dysfunction 4. CAD and history of DE, PCI/stent with demand ischemia 5. PVC 6. COPD h/o exacerbation 7. Hypercholesterolemia 8. 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 Substance abuse (Cocaine) with + UDS 11. History of angioedema due to ACEI 12. TIA post right CEA, 50-69% left carotid 13. Leukocytosis on steroids 14. 4.3 cm infrarenal AAA with mural thrombus PLAN: 1. Resumed Lasix 40 qd, spirinolactone 50 qd with monitor for diuretic response , renal fxn and electrolytes 2. Continue Carvedilol 25 bid, Hydralazine 100 tid, ASA 81 qd, Plavix 75 qd, Lipitor 80 qhs, Procardia XL 90 qd, Imdur 60 qd and uptitrate as tolerated 3. DVT prophylaxis with Lovenox, monitor for withdrawal, drug abstinence 4. BD, O2 as needed, empiric abx, addressed importance of diet and medication compliance
--- NOTE | 2018-12-04 21:25 | PN ---
Progress Note (short form) - Note Progress Note: cva htn emergency bp's lower Current Medications Albuterol Sulfate (Ventolin 0.083% Nebulizer Soln -) 1 amp NEB RQID PRN PRN Reason: SHORT OF BREATH/WHEEZING Last Admin: 12/03/18 20:04 Dose: 1 amp Aspirin (Ecotrin -) 81 mg PO DAILY [facility] Last Admin: 12/04/18 09:17 Dose: 81 mg Atorvastatin Calcium (Lipitor -) 80 mg PO HS [facility] Last Admin: 12/03/18 22:16 Dose: 80 mg Carvedilol (Coreg -) 25 mg PO BID [facility] Last Admin: 12/04/18 09:18 Dose: 25 mg Clopidogrel Bisulfate (Plavix -) 75 mg PO DAILY [facility] Last Admin: 12/04/18 09:18 Dose: 75 mg Enoxaparin Sodium (Lovenox -) 40 mg SQ DAILY [facility] Last Admin: 12/04/18 09:17 Dose: 40 mg Furosemide (Lasix -) 40 mg PO DAILY [facility] Last Admin: 12/04/18 09:17 Dose: 40 mg Hydralazine HCl (Apresoline -) 100 mg PO TID [facility] Last Admin: 12/04/18 14:40 Dose: 100 mg Ceftriaxone Sodium 1 gm/ (Dextrose) 50 mls @ 200 mls/hr IVPB DAILY [facility]; Protocol Last Admin: 12/04/18 09:16 Dose: 200 mls/hr Insulin Aspart (Novolog Vial Sliding Scale -) 1 vial SQ ACHS [facility]; Protocol Last Admin: 12/04/18 17:03 Dose: 10 units Isosorbide Mononitrate (Imdur -) 60 mg PO DAILY [facility] Last Admin: 12/04/18 09:23 Dose: 60 mg Lorazepam (Ativan Injection -) 2 mg IVPUSH Q2H PRN PRN Reason: AGITATION Nifedipine (Procardia Xl -) 90 mg PO DAILY [facility] Last Admin: 12/04/18 09:18 Dose: 90 mg Pantoprazole Sodium (Protonix Iv) 40 mg IVPUSH DAILY [facility] Last Admin: 12/04/18 09:16 Dose: 40 mg Spironolactone (Aldactone -) 50 mg PO DAILY [facility] Last Admin: 12/04/18 09:18 Dose: 50 mg Last Vital Signs Temp Pulse Resp BP Pulse Ox 98 F 90 15 167/105 H 98 12/04/18 16:00 12/04/18 20:00 12/04/18 20:00 12/04/18 20:00 12/04/18 09:00 CBC, BMP 12/04/18 05:44 12/04/18 05:44
[2018-12-04] MEDS: ATORVASTATIN CA 80 MG TABLET (FP) PO SCH (21:46)
[2018-12-05] MEDS: INSULIN SLIDING SCALE (NOVOLOG) 1 VIAL SQ SCH ×4 (06:06→21:34)
[2018-12-05] MEDS: hydrALAZINE HCL 50 MG TABLET (FP) PO SCH ×3 (06:06→21:33)
--- NOTE | 2018-12-05 06:51 | PN ---
Progress Note (short form) - Note Progress Note: Chief Complaint: Events noted, notes reviewed, denies any chest pain or dyspnea , sinus rhythm noted, blood pressure noted History of Present Illness: Seen and examined in the ICU. Events noted, notes reviewed, denies any chest pain or dyspnea, sinus rhythm noted, blood pressure noted - Current Medication List Current Medications Albuterol Sulfate (Ventolin 0.083% Nebulizer Soln -) 1 amp NEB RQID PRN PRN Reason: SHORT OF BREATH/WHEEZING Last Admin: 12/03/18 20:04 Dose: 1 amp Aspirin (Ecotrin -) 81 mg PO DAILY [facility] Last Admin: 12/04/18 09:17 Dose: 81 mg Atorvastatin Calcium (Lipitor -) 80 mg PO HS [facility] Last Admin: 12/04/18 21:46 Dose: 80 mg Carvedilol (Coreg -) 25 mg PO BID [facility] Last Admin: 12/04/18 21:47 Dose: 25 mg Clopidogrel Bisulfate (Plavix -) 75 mg PO DAILY [facility] Last Admin: 12/04/18 09:18 Dose: 75 mg Enoxaparin Sodium (Lovenox -) 40 mg SQ DAILY [facility] Last Admin: 12/04/18 09:17 Dose: 40 mg Furosemide (Lasix -) 40 mg PO DAILY [facility] Last Admin: 12/04/18 09:17 Dose: 40 mg Hydralazine HCl (Apresoline -) 100 mg PO TID [facility] Last Admin: 12/05/18 06:06 Dose: 100 mg Ceftriaxone Sodium 1 gm/ (Dextrose) 50 mls @ 200 mls/hr IVPB DAILY [facility]; Protocol Last Admin: 12/04/18 09:16 Dose: 200 mls/hr Insulin Aspart (Novolog Vial Sliding Scale -) 1 vial SQ ACHS [facility]; Protocol Last Admin: 12/05/18 06:06 Dose: 10 units Isosorbide Mononitrate (Imdur -) 60 mg PO DAILY [facility] Last Admin: 12/04/18 09:23 Dose: 60 mg Lorazepam (Ativan Injection -) 2 mg IVPUSH Q2H PRN PRN Reason: AGITATION Nifedipine (Procardia Xl -) 90 mg PO DAILY [facility] Last Admin: 12/04/18 09:18 Dose: 90 mg Pantoprazole Sodium (Protonix Iv) 40 mg IVPUSH DAILY [facility] Last Admin: 10/12/19 09:16 Dose: 40 mg Spironolactone (Aldactone -) 50 mg PO DAILY [facility] Last Admin: 12/04/18 09:18 Dose: 50 mg - Review of Systems Constitutional: denies: Chills, Fever Cardiovascular: As noted above Respiratory: denies: Cough, Hemoptysis, Orthopnea, PND, SOB Gastrointestinal: denies: Abdominal Pain, Constipation, Diarrhea, Melena, Nausea , Rectal Bleeding, Vomiting Genitourinary: denies: Dysuria, Hematuria Musculoskeletal: denies: Back Pain, Joint Pain Neurological: denies: Dizziness, Syncope. denies: Confusion, Headache, Numbness , Seizure, Unsteady Gait - Objective Vital Signs: Last Vital Signs Temp Pulse Resp BP Pulse Ox 98.1 F 88 16 156/101 H 98 12/05/18 06:00 12/05/18 06:00 12/05/18 06:00 12/05/18 06:00 12/04/18 09:00 Intake & Output 12/02/18 12/03/18 12/04/18 12/05/18 23:59 23:59 23:59 23:59 Intake Total 2125 1650 760 500 Output Total 3300 1400 1700 800 Balance -1175 250 -940 -300 Weight 254 lb 6 oz 254 lb 258 lb 14.4 oz Neck: Supple Negative JVD Cardiovascular: S1 S2 Regular Rate and Rhythm Respiratory: Clear to A&P Bilaterally Gastrointestinal: Soft Benign Normal Bowel Sounds Ext: No Edema Labs: CBC, BMP 12/04/18 05:44 12/04/18 05:44 Hepatic Panel Total Bilirubin 0.7 mg/dL (0.2-1) 12/04/18 05:44 AST 27 U/L (15-37) 12/04/18 05:44 ALT 85 U/L (13-61) H 12/04/18 05:44 Alkaline Phosphatase 228 U/L (45-117) H 12/04/18 05:44 Albumin 2.9 g/dl (3.4-5.0) L 12/04/18 05:44 INR, PTT INR 1.22 (0.83-1.09) H 12/01/18 20:10 Assessment/Plan ASSESSMENT: 1. Acute stroke/CVA versus hypertensive encephelopathy 2. Hypertensive emergency due to medication administration noncompliance 3. CAD history of [place]/PCI/stent angina pectoris 4. Diastolic LV dysfunction with chronic class I-II NYHA classification LV failure, clinically compensated/euvolemic 5. DM 6. Hypercholesterolemia 7. History of old cerebro-vascular disease 8. Post right CEA 9. COPD with history of exacerbation 10. CKD 11. History of substance abuse (Cocaine) 12. History of angioedema related to ACEI PLAN: 1. Continue Furosemide and Spironolactone with close monitoring of renal function and electrolytes 2. Continue Carvedilol 3. Continue Hydralazine 4. Continue Procardia XL, dose titration if needed 5. Continue Imdur 6. Continue ASA 7. Continue Lipitor Fabienne Hayward MD
[2018-12-05 07:57] LABS: HEMATOCRIT 33.4 % (35.4-49); HEMOGLOBIN 10.7 GM/dL (11.7-16.9); MCH 30.9 pg (25.7-33.7); MCHC 32.2 g/dl (32.0-35.9); MEAN PLT VOLUME 7.5 fl (7.5-11.1); PLATELET COUNT 403 K/MM3 (134-434); RBC 3.48 M/mm3 (4.00-5.60); WHITE BLOOD COUNT 8.5 K/mm3 (4.0-10.0)
[2018-12-05 08:18] LABS: BLOOD UREA NITROGEN 16.4 mg/dL (7-18); CALCIUM 9.2 mg/dL (8.5-10.1); CREATININE 1.3 mg/dL (0.55-1.3); MAGNESIUM 1.6 mg/dL (1.8-2.4); PHOSPHOROUS 3.2 mg/dL (2.5-4.9); POTASSIUM 3.6 mmol/L (3.5-5.1)
[2018-12-05] MEDS ORDERED: PT OWN MED DRAWER 7, Y5N ONE (08:23)
[2018-12-05] MEDS ORDERED: DEXTROSE 5%-WATER - 50 ML IVPB ONE (08:24)
[2018-12-05] MEDS ORDERED: cefTRIAXone SODIUM 1 GM VIAL ONE (08:24)
--- NOTE | 2018-12-05 08:29 | EKG ---
Test Reason : Blood Pressure : / mmHG Vent. Rate : 098 BPM Atrial Rate : 098 BPM P-R Int : 166 ms QRS Dur : 104 ms QT Int : 380 ms P-R-T Axes : 064 002 184 degrees QTc Int : 485 ms SINUS RHYTHM WITH FREQUENT PREMATURE VENTRICULAR COMPLEXES POSSIBLE LEFT ATRIAL ENLARGEMENT NONSPECIFIC T WAVE ABNORMALITY PROLONGED QT ABNORMAL ECG WHEN COMPARED WITH ECG OF 01-DEC-2018 18:58, NONSPECIFIC T WAVE ABNORMALITY NOW EVIDENT IN INFERIOR LEADS Confirmed by Judith Funk ([id number]) on 12/05/2018 8:29:13 AM Referred By: Confirmed By:Judith Funk
[2018-12-05] MEDS ORDERED: MAGNESIUM OXIDE 400 MG TABLET (FP) PO ONE (08:36)
[2018-12-05] MEDS: ASPIRIN COATED 81 MG TABLET.EC PO SCH (09:29)
[2018-12-05] MEDS: CARVEDILOL 25 MG TABLET (FP) PO SCH ×2 (09:29→21:33)
[2018-12-05] MEDS: SPIRONOLACTONE 25 MG TABLET (FP) PO SCH (09:29)
[2018-12-05] MEDS: CLOPIDOGREL BISULFATE 75 MG TABLET (FP) PO SCH (09:30)
[2018-12-05] MEDS: CEFTRIAXONE 1 GM in DEXTROSE 5%-WATER - 50 ML IVPB SCH (09:30)
[2018-12-05] MEDS: PANTOPRAZOLE SODIUM 40 MG VIAL IVPUSH SCH (09:30)
[2018-12-05] MEDS: ENOXAPARIN NA (PORCINE) 40 MG/0.4 ML DISP.SYRIN SQ SCH (09:30)
[2018-12-05] MEDS: NIFEdipine E.R. 30 MG TABLET (FP) PO SCH (09:30)
[2018-12-05] MEDS: FUROSEMIDE 40 MG TABLET (FP) PO SCH (09:30)
--- NOTE | 2018-12-05 09:49 | PN ---
Teaching Attending Note Name of Resident: Ev Toth ATTENDING PHYSICIAN STATEMENT I saw and evaluated the patient. I reviewed the resident's note and discussed the case with the resident. I agree with the resident's findings and plan as documented. SUBJECTIVE: Patient seen and examined in the ICU. Awake and alert. Denies CP or dizziness. Still with RUE weakness 2/5 and pain. Currently off IV Cardene. Intake & Output 12/02/18 12/03/18 12/04/18 12/05/18 23:59 23:59 23:59 23:59 Intake Total 2125 1650 760 500 Output Total 3300 1400 1700 800 Balance -1175 250 -940 -300 Weight 254 lb 6 oz 254 lb 258 lb 14.4 oz Last Vital Signs Temp Pulse Resp BP Pulse Ox 98.1 F 94 H 20 176/118 H 98 12/05/18 06:00 12/05/18 08:00 12/05/18 08:00 12/05/18 08:00 12/04/18 09:00 Active Medications Albuterol Sulfate (Ventolin 0.083% Nebulizer Soln -) 1 amp NEB RQID PRN PRN Reason: SHORT OF BREATH/WHEEZING Last Admin: 12/03/18 20:04 Dose: 1 amp Aspirin (Ecotrin -) 81 mg PO DAILY [facility] Last Admin: 12/05/18 09:29 Dose: 81 mg Atorvastatin Calcium (Lipitor -) 80 mg PO HS [facility] Last Admin: 12/04/18 21:46 Dose: 80 mg Carvedilol (Coreg -) 25 mg PO BID [facility] Last Admin: 12/05/18 09:29 Dose: 25 mg Clopidogrel Bisulfate (Plavix -) 75 mg PO DAILY [facility] Last Admin: 12/05/18 09:30 Dose: 75 mg Enoxaparin Sodium (Lovenox -) 40 mg SQ DAILY [facility] Last Admin: 12/05/18 09:30 Dose: 40 mg Furosemide (Lasix -) 40 mg PO DAILY [facility] Last Admin: 12/05/18 09:30 Dose: 40 mg Hydralazine HCl (Apresoline -) 100 mg PO TID [facility] Last Admin: 12/05/18 06:06 Dose: 100 mg Ceftriaxone Sodium 1 gm/ (Dextrose) 50 mls @ 200 mls/hr IVPB DAILY [facility]; Protocol Last Admin: 12/05/18 09:30 Dose: 200 mls/hr Insulin Aspart (Novolog Vial Sliding Scale -) 1 vial SQ ACHS [facility]; Protocol Last Admin: 12/05/18 06:06 Dose: 10 units Isosorbide Mononitrate (Imdur -) 60 mg PO DAILY [facility] Last Admin: 12/04/18 09:23 Dose: 60 mg Lorazepam (Ativan Injection -) 2 mg IVPUSH Q2H PRN PRN Reason: AGITATION Nifedipine (Procardia Xl -) 90 mg PO DAILY [facility] Last Admin: 12/05/18 09:30 Dose: 90 mg Pantoprazole Sodium (Protonix Iv) 40 mg IVPUSH DAILY [facility] Last Admin: 12/05/18 09:30 Dose: 40 mg Spironolactone (Aldactone -) 50 mg PO DAILY [facility] Last Admin: 12/05/18 09:29 Dose: 50 mg GENERAL: Awake and alert, NAD HEAD: Normal with no signs of trauma. EYES: Pupils equal, round and reactive to light, extraocular movements intact, sclera anicteric, conjunctiva clear. No lid lag. EARS, NOSE, THROAT: Ears normal, nares patent, oropharynx clear without exudates. Moist mucous membranes. NECK: Normal range of motion, supple without lymphadenopathy, JVD, or masses. LUNGS: Breath sounds equal, clear to auscultation bilaterally. No wheezes, and no crackles. No accessory muscle use. HEART: Regular rate and rhythm, normal S1 and S2 without murmur, rub or gallop. ABDOMEN: Soft, nontender, not distended, normoactive bowel sounds, no guarding, no rebound, no masses. No hepatomegaly or splenomegaly. MUSCULOSKELETAL: Normal range of motion at all joints. No bony deformities or tenderness. No CVA tenderness. UPPER EXTREMITIES: 2+ pulses, warm, well-perfused. No cyanosis. No clubbing. Cap refill <2 seconds. No peripheral edema. LOWER EXTREMITIES: 2+ pulses, warm, well-perfused. No calf tenderness. No peripheral edema. NEUROLOGICAL: RUE: 2/5, Cranial nerves II-XII intact. Normal speech. PSYCHIATRIC: Cooperative. Good eye contact. SKIN: Warm, dry, normal turgor, no rashes or lesions noted. Laboratory Results - last 24 hr 12/04/18 12/04/18 12/04/18 11:00 17:00 22:01 WBC RBC Hgb Hct MCV MCH MCHC RDW Plt Count MPV Sodium Potassium Chloride Carbon Dioxide Anion Gap BUN Creatinine Est GFR (CKD-EPI)AfAm Est GFR (CKD-EPI)NonAf POC Glucometer 309 372 225 Random Glucose Calcium Phosphorus Magnesium 12/05/18 12/05/18 12/05/18 05:36 07:14 07:14 WBC 8.5 RBC 3.48 L Hgb 10.7 L Hct 33.4 L MCV 96.0 MCH 30.9 MCHC 32.2 RDW 17.0 H Plt Count 403 MPV 7.5 Sodium 138 Potassium 3.6 Chloride 101 Carbon Dioxide 31 Anion Gap 6 L BUN 16.4 Creatinine 1.3 Est GFR (CKD-EPI)AfAm 70.20 Est GFR (CKD-EPI)NonAf 60.57 POC Glucometer 353 Random Glucose 243 H Calcium 9.2 Phosphorus 3.2 Magnesium 1.6 L ASSESSMENT/PLAN: Acute CVA Cocaine abuse Hypertensive Urgency HTN HLD DM S/P AMI with PCI Diastolic dysfunction COPD/asthma BP Meds being titrated No smoking Antiplatelet O2 as needed BD TX PRN Cardiac Telemetry monitoring Dr Azar
--- NOTE | 2018-12-05 10:41 | PN ---
Teaching Attending Note Name of Resident: Graciela Ames ATTENDING PHYSICIAN STATEMENT I saw and evaluated the patient. I reviewed the resident's note and discussed the case with the resident. I agree with the resident's findings and plan as documented. SUBJECTIVE: Patient is feeling better with no acute distress. OBJECTIVE: Vital Signs Temperature 98.0 F 12/05/18 10:00 Pulse Rate 84 12/05/18 10:00 Respiratory Rate 20 12/05/18 10:00 Blood Pressure 163/107 H 12/05/18 10:00 O2 Sat by Pulse Oximetry (%) 98 12/04/18 09:00 GENERAL: The patient is awake, alert, and fully oriented, in no acute distress. HEAD: Normal with no signs of trauma. EYES: PERRL, extraocular movements intact, sclera anicteric, conjunctiva clear. ENT: Ears normal, oropharynx clear without exudates, moist mucous membranes. NECK: Trachea midline, full range of motion, supple. LUNGS: Breath sounds equal, clear to auscultation bilaterally, no wheezes, no crackles, no accessory muscle use. HEART: Regular rate and rhythm, S1, S2 without murmur, rub or gallop. ABDOMEN: Soft, NT,ND, normoactive bowel sounds, no guarding, no rebound, no hepatosplenomegaly, no masses. EXTREMITIES: 2+ pulses, warm, well-perfused, no edema. NEUROLOGICAL: Cranial nerves II through XII grossly intact. Normal speech now , gait not observed. PSYCH: Normal mood, normal affect. SKIN: Warm, dry, normal turgor, no rashes or lesions noted CBCD WBC 8.5 K/mm3 (4.0-10.0) 12/05/18 07:14 RBC 3.48 M/mm3 (4.00-5.60) L 12/05/18 07:14 Hgb 10.7 GM/dL (11.7-16.9) L 12/05/18 07:14 Hct 33.4 % (35.4-49) L 12/05/18 07:14 MCV 96.0 fl (80-96) 12/05/18 07:14 MCHC 32.2 g/dl (32.0-35.9) 12/05/18 07:14 RDW 17.0 % (11.9-15.9) H 12/05/18 07:14 Plt Count 403 K/MM3 (134-434) 12/05/18 07:14 MPV 7.5 fl (7.5-11.1) 12/05/18 07:14 CMP Sodium 138 mmol/L (136-145) 12/05/18 07:14 Potassium 3.6 mmol/L (3.5-5.1) 12/05/18 07:14 Chloride 101 mmol/L (98-107) 12/05/18 07:14 Carbon Dioxide 31 mmol/L (21-32) 12/05/18 07:14 Anion Gap 6 MMOL/L (8-16) L 12/05/18 07:14 BUN 16.4 mg/dL (7-18) 12/05/18 07:14 Creatinine 1.3 mg/dL (0.55-1.3) 12/05/18 07:14 Random Glucose 243 mg/dL (74-106) H 12/05/18 07:14 Calcium 9.2 mg/dL (8.5-10.1) 12/05/18 07:14 Total Bilirubin 0.7 mg/dL (0.2-1) 12/04/18 05:44 AST 27 U/L (15-37) 12/04/18 05:44 ALT 85 U/L (13-61) H 12/04/18 05:44 Alkaline Phosphatase 228 U/L (45-117) H 12/04/18 05:44 Total Protein 6.3 g/dl (6.4-8.2) L 12/04/18 05:44 Albumin 2.9 g/dl (3.4-5.0) L 12/04/18 05:44 CARDIAC ENZYMES Creatine Kinase 160 U/L (26-308) 12/01/18 20:10 Troponin I 0.06 ng/ml (0.00-0.05) H 12/02/18 18:30 Current Medications Generic Name Dose Route Start Last Admin Trade Name Freq PRN Reason Stop Dose Admin Albuterol Sulfate 1 amp 12/03/18 16:52 12/03/18 20:04 Ventolin 0.083% Nebulizer Soln - NEB 1 amp RQID PRN Administration SHORT OF BREATH/WHEEZING Aspirin 81 mg 12/04/18 10:00 12/05/18 09:29 Ecotrin - PO 81 mg DAILY [facility] Administration Atorvastatin Calcium 80 mg 12/03/18 22:00 12/04/18 21:46 Lipitor - PO 80 mg HS [facility] Administration Carvedilol 25 mg 12/03/18 19:45 12/05/18 09:29 Coreg - PO 25 mg BID [facility] Administration Clopidogrel Bisulfate 75 mg 12/04/18 10:00 12/05/18 09:30 Plavix - PO 75 mg DAILY [facility] Administration Enoxaparin Sodium 40 mg 12/03/18 14:15 12/05/18 09:30 Lovenox - SQ 40 mg DAILY [facility] Administration Furosemide 40 mg 12/04/18 10:00 12/05/18 09:30 Lasix - PO 40 mg DAILY [facility] Administration Hydralazine HCl 100 mg 12/03/18 19:45 12/05/18 06:06 Apresoline - PO 100 mg TID [facility] Administration Ceftriaxone Sodium 1 gm/ 50 mls @ 200 mls/hr 12/04/18 10:00 12/05/18 09:30 Dextrose IVPB 200 mls/hr DAILY [facility] Administration Protocol Insulin Aspart 1 vial 12/03/18 22:00 12/05/18 06:06 Novolog Vial Sliding Scale - SQ 10 units ACHS [facility] Administration Protocol Isosorbide Mononitrate 60 mg 12/04/18 10:00 12/04/18 09:23 Imdur - PO 60 mg DAILY [facility] Administration Lorazepam 2 mg 12/03/18 16:52 Ativan Injection - IVPUSH Q2H PRN AGITATION Nifedipine 90 mg 12/03/18 14:56 12/05/18 09:30 Procardia Xl - PO 90 mg DAILY [facility] Administration Pantoprazole Sodium 40 mg 12/04/18 10:00 12/05/18 09:30 Protonix Iv IVPUSH 40 mg DAILY [facility] Administration Spironolactone 50 mg 12/04/18 10:00 12/05/18 09:29 Aldactone - PO 50 mg DAILY [facility] Administration Home Medications Medication Instructions Recorded Isosorbide Mononitrate [Imdur -] 60 mg PO DAILY #30 tab.sr.24h 07/02/18 Hydralazine HCl 100 mg PO TID 08/09/18 Atorvastatin Ca [Lipitor] 80 mg PO HS #30 tablet 08/17/18 Carvedilol [Coreg -] 25 mg PO BID #60 tablet 08/17/18 Spironolactone [Aldactone -] 50 mg PO DAILY #30 tablet 08/17/18 Clopidogrel Bisulfate [Plavix] 75 mg PO DAILY 10/19/18 Cyclobenzaprine HCl 5 mg PO Q8H PRN #6 tablet 10/20/18 Methyl Salicylate/Menthol Oint 1 applic TP DAILY PRN #1 applic 10/20/18 [Analgesic Johnson -] Albuterol 0.083% Nebulizer Jane 1 amp NEB Q4H #10 amp 11/01/18 [Ventolin 0.083% Nebulizer Soln -] Miscellaneous [employer] Supply 1 each .ROUTE ASDIR #1 kit 11/03/18 [Glucometer Device] Miscellaneous [employer] 1 each .ROUTE ASDIR #1 box 11/03/18 [Glucometer Test Strips #100] Aspirin Coated [Ecotrin -] 81 mg PO DAILY tablet.ec 11/04/18 Furosemide [Lasix -] 40 mg PO DAILY tablet 11/04/18 Insulin (Levemir) [Levemir Vial] 30 units SQ 0700,2200 units 11/04/18 Insulin Sliding Scale [Novolog 1 vial SQ ACHS units 11/04/18 Vial Sliding Scale -] Nifedipine ER [Procardia XL -] 90 mg PO DAILY tab.er.24 11/04/18 Sitagliptin Phosphate [Januvia -] 25 mg PO DAILY@0700 #30 tab 11/04/18 Us of carotids: small to moderate size soft plaque at the right common carotid bifurcation/bulb without evidence of significant stenosis. MRI of brain: no acute infarct, chronic right posterior temporal cortical infarct. chronic right frontal, and parietal cortical infarct. Mild to moderate periventricular chronic microvascular ischemic changes. ASSESSMENT AND PLAN: Patient is a 58yo male with PMHx of HTN, cocaine use, HLP, CAD s/p DE , chronic diastolic CHF, COPD, nicotine dependence, DM , who presented with CP. He was found to have acute pulm edema with HTN emergency. #Hypertensive Emergency: s/p cardene drip, continue with Labetolol , since bp is still elevated, hydralazine po, procardia xl, coreg, aldactone #Chronic right posterior temporal cortical infarct and chronic right frontal and right parietal cortical infarcts.on Lipitor 80mg hs, aspirin continue. # Polysubstance abuse: detox consult , patient was informed that if he does not stop , he can damage all his organs. #Right maxillary sinus mucus retention cyst/polyp follow outpatient # Hx of CAD: continue home meds, plavix/asa/lipitor/imdur 60mg #Hx of HLD : continue lipitor #T2DM on levemir 30 ( home dose 30 BID) , cont SSI #Hx of R Carotid artery stenosis (95% blockage) s/p endarterectomy by dr. Johnson #chronic diastolic heart failure : Continue lasix, spironolactone 50mg , coreg 25mg bid/imdur continue #COPD: on Nebulizer txments. # Acute colitis (ischemic vs inflammatory/infectious) /acute uncomplicated diverticulitis: no further antibiotic needed as per G #Infrarenal aortic aneurysm: 4.3 cm in diameter ; further w/u as an outpatient by dr Johnson # Right renal calculus: nonobstructing 0.7x0.2cm continue hydration #Mediastinal lymphadenopathy increased; nonspecific DVT PX :SCds for now heparin sq possible dc in am once BP is stable
--- NOTE | 2018-12-05 11:23 | PN ---
Progress Note (short form) - Note Progress Note: 58 year old male history of DM,HLD,CAD, COPD, Right carotid endartectomy, chf, ckd, stable aa. Patient has came with right arm and leg weakenss with slurred of speech, his ct head unremarkable. Patient has cocaine positive and he ran out of medication recently. Patient is feeling better adn still have right sided weakness. MRI of brain is normal. no acute distress. no new symptoms, NEUROLOGICAL EXAMIATNION Alert oriented x 3, speech is slurred, neck is supple vss eomi, pupils reactive, no face asymmetry Right arm and leg weakess ct head right old posterior temoral lobe infarct identified mri of brain is normal carotid ultrasound should left moderate stenosis and vacular surgery consult pending. Assessment : Right sided hemiparesis with slurring of speech , history of cocaine abuse and noncompliant with his bp medication. mri showed no acute findings. Patient may have hemiparesis due to worsening of old stroke due to cocaine and uncontrolled bp vs sometime small lacunar stroke can be missed on mri of brain. clinical exam is unchanged and waiting to go to floor Plan: - - continue aspirin, plavix and statin -pt, speech and dvt prophylaxis - stroke education - cessation of drug abuse Thanking you so much Yadiel Kent MD
--- NOTE | 2018-12-05 11:37 | PN ---
Physical Exam: SUBJECTIVE: Patient seen and examined at bedside. Feeling well. Improved ROM in RUE, RLE. Ambulated yesterday. OBJECTIVE: Vital Signs Period Temp Pulse Resp BP Sys/Caal Pulse Ox Last 24 Hr 97.6 F-98.2 F 79-96 10- 145-176/86-118 GENERAL: resting comfortably in bed. in NAD HEENT: NCAT NECK: supple CARDIO: S1, S2 RRR. no r/m/g ABDOMEN: obese, nontender, nondistended NEURO: +R hemiparesis, improved. able to flex RUE. sensation intact. regulatory affairs associate 2-12 grossly intact. no facial droop LE: 2+ pt pulses, no edema Laboratory Results 12/05/18 12/05/18 07:14 07:14 WBC 8.5 RBC 3.48 L Hgb 10.7 L Hct 33.4 L MCV 96.0 MCH 30.9 MCHC 32.2 RDW 17.0 H Plt Count 403 MPV 7.5 Sodium 138 Potassium 3.6 Chloride 101 Carbon Dioxide 31 Anion Gap 6 L BUN 16.4 Creatinine 1.3 Est GFR (CKD-EPI)AfAm 70.20 Est GFR (CKD-EPI)NonAf 60.57 POC Glucometer Random Glucose 243 H Calcium 9.2 Phosphorus 3.2 Magnesium 1.6 L ASSESSMENT/PLAN: 58 yo M w/ PMH of HTN, HLD, DM, MA (x3 w/ stents), substance abuse ( cocaine), HFpEF, COPD presented to the ED with chest pain and hypertensive emergency. Pt is admitted to ICU for management of hypertensive emergency. On admission, pt was found to have right arm weakness prompting stroke workup. #Neuro: Acute stroke vs hypertensive encephalopathy , TIA post right CEA, 50-69 % left carotid -AAOx3 -NIHSS 3 -Neuro recs appreciated -brain MRI reviewed, no acute infarct, see above findings -carotid u/s showing hemodynamic stenosis of L common carotid, see above report. vascular recs appreciated #Cardio: Hypertensive emergency 2/2 medication noncompliance, CAD , Hx of MA, ( s/p PCI/ stent w/ demand ischemia) , HLD, HFpEF, 4.3 cm infrarenal AAA with mural thrombus -c/w asa, plavix, statin -c/w PO lasix 40 -counselled on importance of drug cessation -c/w coreg 25 BID, aldactone 50 daily, hydralazine 100 tid, asa , plavix 75, lipitor 80, procardia 90, imdur 60 med titration per primary team #Pulm: COPD -on RA saturating well; not in exacerbation -SpO2>90% -ventolin PRN #GI: transaminitis possible 2/2 HTN -abdomen u/s noted above -Ct abdomen shows thickening of sigmoid colon although no clinical evidence of ongoing colitis or diverticulitis. There are diverticula noted. -continue to monitor -colonoscopy as outpt -GI recs appreciated #Nephro: CKD -avoid nephrotoxic agents #Endo: DM -BGM -ISS #ID - Acute Colitis -c/w ceftriaxone for now #DVT: Lovenox #F/E/N -not on IVF at this time -monitor lytes -diabetic/ sodium diet Dispo transfer to tele Visit type - Emergency Visit Emergency Visit: No - New Patient This patient is new to me today: No - Critical Care Critical Care patient: No Total Critical Care Time (in minutes): 42 Critical Care Statement: The care of this patient involved high complexity decision making to prevent further life threatening deterioration of the patient 's condition and/or to evaluate & treat vital organ system(s) failure or risk of failure.
[2018-12-05] MEDS: ISOSORBIDE MONONITRATE 60 MG TAB.SR.24H (FP) PO SCH (12:00)
--- NOTE | 2018-12-05 14:02 | PN ---
Progress Note (short form) - Note Progress Note: Hypertensive emergency Suspected acute CVA CKD stage 2/3 hyperlipidemia COPD CAD s/p pci and stent HF Current Medications Albuterol Sulfate (Ventolin 0.083% Nebulizer Soln -) 1 amp NEB RQID PRN PRN Reason: SHORT OF BREATH/WHEEZING Last Admin: 12/03/18 20:04 Dose: 1 amp Aspirin (Ecotrin -) 81 mg PO DAILY [facility] Last Admin: 12/05/18 09:29 Dose: 81 mg Atorvastatin Calcium (Lipitor -) 80 mg PO HS [facility] Last Admin: 12/04/18 21:46 Dose: 80 mg Carvedilol (Coreg -) 25 mg PO BID [facility] Last Admin: 12/05/18 09:29 Dose: 25 mg Clopidogrel Bisulfate (Plavix -) 75 mg PO DAILY [facility] Last Admin: 12/05/18 09:30 Dose: 75 mg Enoxaparin Sodium (Lovenox -) 40 mg SQ DAILY [facility] Last Admin: 12/05/18 09:30 Dose: 40 mg Furosemide (Lasix -) 40 mg PO DAILY [facility] Last Admin: 12/05/18 09:30 Dose: 40 mg Hydralazine HCl (Apresoline -) 100 mg PO TID [facility] Last Admin: 12/05/18 06:06 Dose: 100 mg Ceftriaxone Sodium 1 gm/ (Dextrose) 50 mls @ 200 mls/hr IVPB DAILY [facility]; Protocol Last Admin: 12/05/18 09:30 Dose: 200 mls/hr Insulin Aspart (Novolog Vial Sliding Scale -) 1 vial SQ ACHS [facility]; Protocol Last Admin: 12/05/18 12:58 Dose: 4 units Isosorbide Mononitrate (Imdur -) 60 mg PO DAILY [facility] Last Admin: 12/04/18 09:23 Dose: 60 mg Lorazepam (Ativan Injection -) 2 mg IVPUSH Q2H PRN PRN Reason: AGITATION Nifedipine (Procardia Xl -) 90 mg PO DAILY [facility] Last Admin: 12/05/18 09:30 Dose: 90 mg Pantoprazole Sodium (Protonix Iv) 40 mg IVPUSH DAILY [facility] Last Admin: 12/05/18 09:30 Dose: 40 mg Spironolactone (Aldactone -) 50 mg PO DAILY [facility] Last Admin: 12/05/18 09:29 Dose: 50 mg Last Vital Signs Temp Pulse Resp BP Pulse Ox 98.0 F 85 17 180/104 H 98 12/05/18 10:00 12/05/18 12:00 12/05/18 12:00 12/05/18 12:00 12/04/18 09:00 alert in nad Lungs clear heart reg abd soft ext diffuse edema CBC, BMP 12/05/18 07:14 12/05/18 07:14 CBC, BMP 12/04/18 05:44 12/04/18 05:44 IMP- HTN still inadequately controlled generalized edema
--- NOTE | 2018-12-05 19:01 | PN ---
Physical Exam: SUBJECTIVE: Patient seen and examined at the bedside, patient is still hypertensive but improving. Has been resumed on home meds. LE edema improving, still with RUE proximal weakness. OBJECTIVE: Vital Signs Period Temp Pulse Resp BP Sys/Caal Pulse Ox Last 24 Hr 98.0 F-98.2 F 80-96 12-12 145-181/86-118 GENERAL: The patient is awake, alert, and fully oriented, in no acute distress. HEAD: Normal with no signs of trauma. EYES: PERRL, extraocular movements intact, sclera anicteric, conjunctiva clear. ENT: Ears normal, oropharynx clear without exudates, moist mucous membranes. NECK: Trachea midline, full range of motion, supple. LUNGS: Breath sounds equal, clear to auscultation bilaterally, no wheezes, no crackles, no accessory muscle use. HEART: Regular rate and rhythm, S1, S2 without murmur, rub or gallop. ABDOMEN: Soft, NT,ND, normoactive bowel sounds, no guarding, no rebound, no hepatosplenomegaly, no masses. EXTREMITIES: 2+ pulses, warm, well-perfused, 1+ edema. NEUROLOGICAL: Cranial nerves II through XII grossly intact. Normal speech now , gait not observed. PSYCH: Normal mood, normal affect. SKIN: Warm, dry, normal turgor, no rashes or lesions noted Laboratory Results - last 24 hr 12/04/18 12/05/18 12/05/18 22:01 05:36 07:14 WBC 8.5 RBC 3.48 L Hgb 10.7 L Hct 33.4 L MCV 96.0 MCH 30.9 MCHC 32.2 RDW 17.0 H Plt Count 403 MPV 7.5 Sodium Potassium Chloride Carbon Dioxide Anion Gap BUN Creatinine Est GFR (CKD-EPI)AfAm Est GFR (CKD-EPI)NonAf POC Glucometer 225 353 Random Glucose Calcium Phosphorus Magnesium 12/05/18 12/05/18 12/05/18 07:14 12:31 17:38 WBC RBC Hgb Hct MCV MCH MCHC RDW Plt Count MPV Sodium 138 Potassium 3.6 Chloride 101 Carbon Dioxide 31 Anion Gap 6 L BUN 16.4 Creatinine 1.3 Est GFR (CKD-EPI)AfAm 70.20 Est GFR (CKD-EPI)NonAf 60.57 POC Glucometer 246 261 Random Glucose 243 H Calcium 9.2 Phosphorus 3.2 Magnesium 1.6 L Active Medications Generic Name Dose Route Start Last Admin Trade Name Freq PRN Reason Stop Dose Admin Albuterol Sulfate 1 amp 12/03/18 16:52 12/03/18 20:04 Ventolin 0.083% Nebulizer Soln - NEB 1 amp RQID PRN Administration SHORT OF BREATH/WHEEZING Aspirin 81 mg 12/04/18 10:00 12/05/18 09:29 Ecotrin - PO 81 mg DAILY [facility] Administration Atorvastatin Calcium 80 mg 12/03/18 22:00 12/04/18 21:46 Lipitor - PO 80 mg HS [facility] Administration Carvedilol 25 mg 12/03/18 19:45 12/05/18 09:29 Coreg - PO 25 mg BID [facility] Administration Clopidogrel Bisulfate 75 mg 12/04/18 10:00 12/05/18 09:30 Plavix - PO 75 mg DAILY [facility] Administration Enoxaparin Sodium 40 mg 12/03/18 14:15 12/05/18 09:30 Lovenox - SQ 40 mg DAILY [facility] Administration Furosemide 40 mg 12/04/18 10:00 12/05/18 09:30 Lasix - PO 40 mg DAILY [facility] Administration Hydralazine HCl 100 mg 12/03/18 19:45 12/05/18 14:25 Apresoline - PO 100 mg TID [facility] Administration Ceftriaxone Sodium 1 gm/ 50 mls @ 200 mls/hr 12/04/18 10:00 12/05/18 09:30 Dextrose IVPB 200 mls/hr DAILY [facility] Administration Protocol Insulin Aspart 1 vial 12/03/18 22:00 12/05/18 17:54 Novolog Vial Sliding Scale - SQ 6 units ACHS [facility] Administration Protocol Isosorbide Mononitrate 60 mg 12/04/18 10:00 12/05/18 12:00 Imdur - PO 60 mg DAILY [facility] Administration Lorazepam 2 mg 12/03/18 16:52 Ativan Injection - IVPUSH Q2H PRN AGITATION Nifedipine 90 mg 12/03/18 14:56 12/05/18 09:30 Procardia Xl - PO 90 mg DAILY [facility] Administration Pantoprazole Sodium 40 mg 12/04/18 10:00 12/05/18 09:30 Protonix Iv IVPUSH 40 mg DAILY [facility] Administration Spironolactone 50 mg 12/04/18 10:00 12/05/18 09:29 Aldactone - PO 50 mg DAILY [facility] Administration ASSESSMENT/PLAN: 58 y.o. M PMH HTN, DM2, HLD, CAD s/p 3x NM, COPD/asthma, R carotid stenosis s/p endarterectomy 07/2018, diastolic CHF, CKD, TIA, stable AAA, cocaine and alcohol abuse presenting with chest pain. #CVA vs. HTN encephalopathy - NIHSS 8 - Permissive HTN but per neurology, suggest treating bp if above 220/120 - Continue Atorvastatin 80mg daily, asa 81mg daily, plavix 75mg daily - F/u Brain MRI w/o contrast, carotid doppler, echo - Neuro consulted (Dr. Kent), appreciate recommendations - PT, speech and dvt prophylaxis - stroke education - cessation of drug abuse - IV diuresis and spirinolactone 50 qd with monitor for diuretic response, renal fxn and electrolytes - Continue Carvedilol 25 bid, Hydralazine 100 tid, ASA 81 qd, Plavix 75 qd, Lipitor 80 qhs, Procardia XL 90 qd, Imdur 60 qd and uptitrate as tolerated #Hypertensive emergency - Cardiology consulted, appreciate recommendations - Wean Cardene gtt - f/u echo to assess ventricular and valve fxn, mri of brain and carotid ultrasound - Holding home anti HTN meds to allow permissive HTN - F/u repeat trop & EKG #Colitis -Protonix 40mg IV daily -GI consulted (Dr. Lowe) -Hold steroids at this time; recently completed course on last d/c 1 month ago #CHF -BNP 5649.8 (6880 1 mo ago) -Hold lasix to allow for permissive HTN -daily weights -Is & Os #GOGO on CKD- resolved -Dr. Gilmore (nephro)consulted, appreciate recommendations - Continue hydralzine IV PRN. can consider addition of oral CCB once stricter BP control is required - Trend renal function and electrolytes continue statin - Avoid nephrotoxic medications - avoid beta blockers as pt has had recent cocaine use by toxicology screen #DM type 2 -ISS -BGMs #Transaminitis -Hepatitis panel neg as per 07/2018 labs -F/u AM labs -F/u RUQ U/S #Polysubstance abuse -PRN ativan if withdrawal -Utox + for cocaine, opioids (given morphine in ED) #FEN -No standing fluids -Trend lytes, replete PRN -NPO #DVT PPX -SCDs -Lovenox #Dispo ICU Visit type - Emergency Visit Emergency Visit: Yes ED Registration Date: 12/01/18 Care time: The patient presented to the Emergency Department on the above date and was hospitalized for further evaluation of their emergent condition. - New Patient This patient is new to me today: No - Critical Care Critical Care patient: Yes Total Critical Care Time (in minutes): 40 Critical Care Statement: The care of this patient involved high complexity decision making to prevent further life threatening deterioration of the patient 's condition and/or to evaluate & treat vital organ system(s) failure or risk of failure. - Discharge Referral Referred to [facility] No ATTENDING PHYSICIAN STATEMENT I saw and evaluated the patient. I reviewed the resident's note and discussed the case with the resident. I agree with the resident's findings and plan as documented. SUBJECTIVE: OBJECTIVE: ASSESSMENT AND PLAN:
[2018-12-05] MEDS: ATORVASTATIN CA 80 MG TABLET (FP) PO SCH (21:33)
[2018-12-06] MEDS: hydrALAZINE HCL 50 MG TABLET (FP) PO SCH ×3 (05:56→21:52)
[2018-12-06] MEDS: INSULIN SLIDING SCALE (NOVOLOG) 1 VIAL SQ SCH ×4 (05:59→21:53)
[2018-12-06 07:07] LABS: EOS % 0.7 % (0-4.5); HEMATOCRIT 35.8 % (35.4-49); HEMOGLOBIN 11.5 GM/dL (11.7-16.9); LYMPH % 14.5 % (8-40); MCHC 32.2 g/dl (32.0-35.9); MEAN CELL VOLUME 96.5 fl (80-96); MEAN PLT VOLUME 7.7 fl (7.5-11.1); MONO % 7.6 % (3.8-10.2); NEUT % 76.2 % (42.8-82.8); PLATELET COUNT 420 K/MM3 (134-434); RBC 3.71 M/mm3 (4.00-5.60); RDW 16.5 % (11.9-15.9); WHITE BLOOD COUNT 8.6 K/mm3 (4.0-10.0)
[2018-12-06] MEDS ORDERED: NIFEdipine E.R. 90 MG TABLET (FP) PO ONE (07:15)
[2018-12-06 07:37] LABS: ALBUMIN 2.8 g/dl (3.4-5.0); BILIRUBIN,TOTAL 0.6 mg/dL (0.2-1); BLOOD UREA NITROGEN 19.7 mg/dL (7-18); CALCIUM 9.1 mg/dL (8.5-10.1); CREATININE 1.3 mg/dL (0.55-1.3); MAGNESIUM 1.7 mg/dL (1.8-2.4); PHOSPHOROUS 3.4 mg/dL (2.5-4.9); POTASSIUM 3.9 mmol/L (3.5-5.1); TOT PROT 6.4 g/dl (6.4-8.2)
[2018-12-06] MEDS ORDERED: MAGNESIUM SULF 50% (8.12 MEQ/2 ML-1 GM VIAL) IVPB ONE (08:36)
[2018-12-06] MEDS ORDERED: cefTRIAXone SODIUM 1 GM VIAL ONE (09:10)
[2018-12-06] MEDS ORDERED: DEXTROSE 5%-WATER - 50 ML IVPB ONE (09:10)
[2018-12-06] MEDS: PANTOPRAZOLE SODIUM 40 MG VIAL IVPUSH SCH (09:12)
[2018-12-06] MEDS: ASPIRIN COATED 81 MG TABLET.EC PO SCH (09:12)
[2018-12-06] MEDS: CEFTRIAXONE 1 GM in DEXTROSE 5%-WATER - 50 ML IVPB SCH (09:12)
[2018-12-06] MEDS: FUROSEMIDE 40 MG TABLET (FP) PO SCH (09:13)
[2018-12-06] MEDS: ENOXAPARIN NA (PORCINE) 40 MG/0.4 ML DISP.SYRIN SQ SCH (09:13)
[2018-12-06] MEDS: SPIRONOLACTONE 25 MG TABLET (FP) PO SCH ×2 (09:13→21:52)
[2018-12-06] MEDS: CARVEDILOL 25 MG TABLET (FP) PO SCH (09:13)
[2018-12-06] MEDS: CLOPIDOGREL BISULFATE 75 MG TABLET (FP) PO SCH (09:13)
[2018-12-06] MEDS: ISOSORBIDE MONONITRATE 60 MG TAB.SR.24H (FP) PO SCH (09:14)
--- NOTE | 2018-12-06 10:27 | PN ---
Progress Note (short form) - Note Progress Note: 58 year old male history of DM,HLD,CAD, COPD, Right carotid endartectomy, chf, ckd, stable aa. Patient has came with right arm and leg weakenss with slurred of speech, his ct head unremarkable. Patient has cocaine positive and he ran out of medication recently. Patient is feeling better adn still have right sided weakness. MRI of brain is normal. no acute distress. no new symptoms, he is feeling better NEUROLOGICAL EXAMIATNION Alert oriented x 3, speech is slurred, neck is supple vss eomi, pupils reactive, no face asymmetry Right arm and leg weakess ct head right old posterior temoral lobe infarct identified mri of brain is normal carotid ultrasound should left moderate stenosis and vacular surgery consult pending. Assessment : Right sided hemiparesis with slurring of speech , history of cocaine abuse and noncompliant with his bp medication. mri showed no acute findings. Patient may have hemiparesis due to worsening of old stroke due to cocaine and uncontrolled bp vs sometime small lacunar stroke can be missed on mri of brain. he is feeling better and waiting to go to floor Plan: - continue aspirin, plavix and statin -pt, speech and dvt prophylaxis - stroke education - cessation of drug abuse Thanking you so much Yadiel Kent MD
--- NOTE | 2018-12-06 10:38 | PN ---
Progress Note, Physician History of Present Illness: Chest pain, SOB, abdominal distension, hypertensive urgency improving, still reports right UE weakness, but slurring of speech has resolved. - Current Medication List Current Medications: Active Medications Albuterol Sulfate (Ventolin 0.083% Nebulizer Soln -) 1 amp NEB RQID PRN PRN Reason: SHORT OF BREATH/WHEEZING Last Admin: 12/03/18 20:04 Dose: 1 amp Aspirin (Ecotrin -) 81 mg PO DAILY [facility] Last Admin: 12/06/18 09:12 Dose: 81 mg Atorvastatin Calcium (Lipitor -) 80 mg PO HS [facility] Last Admin: 12/05/18 21:33 Dose: 80 mg Carvedilol (Coreg -) 25 mg PO BID [facility] Last Admin: 12/06/18 09:13 Dose: 25 mg Clopidogrel Bisulfate (Plavix -) 75 mg PO DAILY [facility] Last Admin: 12/06/18 09:13 Dose: 75 mg Enoxaparin Sodium (Lovenox -) 40 mg SQ DAILY [facility] Last Admin: 12/06/18 09:13 Dose: 40 mg Furosemide (Lasix -) 40 mg PO DAILY [facility] Last Admin: 12/06/18 09:13 Dose: 40 mg Hydralazine HCl (Apresoline -) 100 mg PO TID [facility] Last Admin: 12/06/18 05:56 Dose: 100 mg Ceftriaxone Sodium 1 gm/ (Dextrose) 50 mls @ 200 mls/hr IVPB DAILY [facility]; Protocol Last Admin: 12/06/18 09:12 Dose: 200 mls/hr Insulin Aspart (Novolog Vial Sliding Scale -) 1 vial SQ ACHS [facility]; Protocol Last Admin: 12/06/18 05:59 Dose: 6 units Isosorbide Mononitrate (Imdur -) 60 mg PO DAILY [facility] Last Admin: 12/06/18 09:14 Dose: 60 mg Lorazepam (Ativan Injection -) 2 mg IVPUSH Q2H PRN PRN Reason: AGITATION Nifedipine (Procardia Xl -) 90 mg PO DAILY [facility] Last Admin: 12/05/18 09:30 Dose: 90 mg Pantoprazole Sodium (Protonix Iv) 40 mg IVPUSH DAILY [facility] Last Admin: 12/06/18 09:12 Dose: 40 mg Spironolactone (Aldactone -) 50 mg PO DAILY [facility] Last Admin: 12/06/18 09:13 Dose: 50 mg - Objective Vital Signs: Vital Signs Temperature 98.0 F 12/06/18 06:00 Pulse Rate 96 H 12/06/18 07:15 Respiratory Rate 23 H 12/06/18 09:00 Blood Pressure 181/112 H 12/06/18 07:15 O2 Sat by Pulse Oximetry (%) 98 12/04/18 09:00 Constitutional: Yes: No Distress, Calm Neck: Yes: Supple Cardiovascular: Yes: Regular Rate and Rhythm Respiratory: Yes: Regular, CTA Bilaterally Gastrointestinal: Yes: Normal Bowel Sounds, Soft Edema: No Labs: CBC, BMP 12/06/18 06:20 12/06/18 06:20 INR, PTT INR 1.22 (0.83-1.09) H 12/01/18 20:10 Problem List - Problems (1) Hypertensive emergency Code(s): I16.1 - HYPERTENSIVE EMERGENCY (2) Cerebrovascular disease Code(s): I67.9 - CEREBROVASCULAR DISEASE, UNSPECIFIED (3) Chest pain Code(s): R07.9 - CHEST PAIN, UNSPECIFIED Qualifiers: Chest pain type: precordial pain Qualified Code(s): R07.2 - Precordial pain (4) Cocaine abuse Code(s): F14.10 - COCAINE ABUSE, UNCOMPLICATED (5) Diabetic nephropathy associated with type 2 diabetes mellitus Code(s): E11.21 - TYPE 2 DIABETES MELLITUS WITH DIABETIC NEPHROPATHY (6) Shortness of breath Code(s): R06.02 - SHORTNESS OF BREATH (7) Acute on chronic diastolic (congestive) heart failure Code(s): I50.33 - ACUTE ON CHRONIC DIASTOLIC (CONGESTIVE) HEART FAILURE (8) Alcohol dependence Code(s): F10.20 - ALCOHOL DEPENDENCE, UNCOMPLICATED Qualifiers: Substance use status: unspecified alcohol-induced disorder Qualified Code(s ): F10.29 - Alcohol dependence with unspecified alcohol-induced disorder (9) CAD (coronary artery disease) Code(s): I25.10 - ATHSCL HEART DISEASE OF [place] CORONARY ARTERY W/O ANG PCTRS Qualifiers: Coronary Disease-Associated Artery/Lesion type: [place] artery [place] vs. transplanted heart: [place] heart Associated angina: without angina Qualified Code(s): I25.10 - Atherosclerotic heart disease of [place] coronary artery without angina pectoris (10) Hyperlipidemia Code(s): E78.5 - HYPERLIPIDEMIA, UNSPECIFIED Qualifiers: Hyperlipidemia type: pure hypercholesterolemia Qualified Code(s): E78.00 - Pure hypercholesterolemia, unspecified Assessment/Plan 12/02/2018 Mri of brain: No acute stroke, old right posterior temporal cortical infarct 12/02/2018 Carotid ultrasound should left moderate stenosis and vacular surgery consult pending 12/02/2018 Echo: Normal LV size and fxn with mod cLVH, normal RV size and fxn, mild SHAHANA, mild MR, TR, AR 12/01/2018 Ct head right 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 Acute stroke vs hypertensive encephelopathy 2. Hypertensive emergency due to medication noncompliance 3. Diastolic dysfunction 4. CAD and history of SD, PCI/stent with demand ischemia 5. PVC 6. COPD h/o exacerbation 7. Hypercholesterolemia 8. 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 Substance abuse (Cocaine) with + UDS 11. History of angioedema due to ACEI 12. TIA post right CEA, 50-69% left carotid 13. Leukocytosis on steroids 14. 4.3 cm infrarenal AAA with mural thrombus PLAN: 1. Continue Lasix 40 qd, increase spirinolactone 50 bid with monitor for diuretic response, renal fxn and electrolytes 2. Continue Carvedilol 25 bid, Hydralazine 100 tid, ASA 81 qd, Plavix 75 qd, Lipitor 80 qhs, Procardia XL 90 qd, Imdur 60 qd and uptitrate as tolerated 3. DVT prophylaxis with Lovenox, monitor for withdrawal, drug abstinence 4. BD, O2 as needed, empiric abx, addressed importance of diet and medication compliance
--- NOTE | 2018-12-06 11:17 | PN ---
Progress Note (short form) - Note Progress Note: Renal follow up for CKD and hypertension Seen and examined at the bedside awake and alert offers no acute complaints arm weakness improving no chest pain or sob making urine BP remains elevated Vital Signs Temperature 98.0 F 12/06/18 06:00 Pulse Rate 96 H 12/06/18 07:15 Respiratory Rate 23 H 12/06/18 09:00 Blood Pressure 181/112 H 12/06/18 07:15 O2 Sat by Pulse Oximetry (%) 98 12/04/18 09:00 Intake & Output 12/03/18 12/04/18 12/05/18 12/06/18 23:59 23:59 23:59 23:59 Intake Total 6188 363 4241 Output Total 1400 1700 3550 600 Balance 250 -990 -2000 -600 Weight 115.212 kg 117.435 kg NAD awake and alert neck supple, no JVD RRR CTA soft NT/ND no LE edema CBC, BMP 12/06/18 06:20 12/06/18 06:20 Current Medications Albuterol Sulfate (Ventolin 0.083% Nebulizer Soln -) 1 amp NEB RQID PRN PRN Reason: SHORT OF BREATH/WHEEZING Last Admin: 12/03/18 20:04 Dose: 1 amp Aspirin (Ecotrin -) 81 mg PO DAILY [facility] Last Admin: 12/06/18 09:12 Dose: 81 mg Atorvastatin Calcium (Lipitor -) 80 mg PO HS [facility] Last Admin: 12/05/18 21:33 Dose: 80 mg Carvedilol (Coreg -) 25 mg PO BID [facility] Last Admin: 12/06/18 09:13 Dose: 25 mg Clopidogrel Bisulfate (Plavix -) 75 mg PO DAILY [facility] Last Admin: 12/06/18 09:13 Dose: 75 mg Enoxaparin Sodium (Lovenox -) 40 mg SQ DAILY [facility] Last Admin: 12/06/18 09:13 Dose: 40 mg Furosemide (Lasix -) 40 mg PO DAILY [facility] Last Admin: 12/06/18 09:13 Dose: 40 mg Hydralazine HCl (Apresoline -) 100 mg PO TID [facility] Last Admin: 12/06/18 05:56 Dose: 100 mg Ceftriaxone Sodium 1 gm/ (Dextrose) 50 mls @ 200 mls/hr IVPB DAILY [facility]; Protocol Last Admin: 12/06/18 09:12 Dose: 200 mls/hr Insulin Aspart (Novolog Vial Sliding Scale -) 1 vial SQ ACHS [facility]; Protocol Last Admin: 12/06/18 05:59 Dose: 6 units Isosorbide Mononitrate (Imdur -) 60 mg PO DAILY [facility] Last Admin: 12/06/18 09:14 Dose: 60 mg Lorazepam (Ativan Injection -) 2 mg IVPUSH Q2H PRN PRN Reason: AGITATION Nifedipine (Procardia Xl -) 90 mg PO DAILY [facility] Last Admin: 12/05/18 09:30 Dose: 90 mg Pantoprazole Sodium (Protonix Iv) 40 mg IVPUSH DAILY [facility] Last Admin: 12/06/18 09:12 Dose: 40 mg Spironolactone (Aldactone -) 50 mg PO DAILY [facility] Last Admin: 12/06/18 09:13 Dose: 50 mg 58 year old gentleman with history of Hypertension, hyperlipidemia, CAD s/p PCI and stenting, HF with diastolic dysfunction, COPD who presented to the ED with chest pain and noted to have right upper extremity weakness/CVA and hypertensive emergency. 1. Hypertensive emergency 2. 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 hyperlipidemia BP is improved now. Continue Nifedpine, Coreg, Aldactone and hydrazline. Continue lasix for fluid management Can consider addition of ARB (i.e. Losartan 25-50mg daily for additional BP control) Renal function essentially stable. No overt electrolyte or acid base disturbance noted. Trend renal function and electrolytes continue statin Neurology and cardiology follow up Thank you David Gilmore DO
--- NOTE | 2018-12-06 11:45 | CONSULT ---
- Consultation REQUESTING PROVIDER: CONSULT REQUEST: We have been asked to surgically evaluate this patient for AAA and carotid stenosis. PCP:Marcie Noel HISTORY OF PRESENT ILLNESS: 58yo M known to the Vascular service s/p Rt carotid endartectomy 08/12/18. Pt admitted for chest pain and SOB workup. Pt had multiple imaging which showed stable unchanged AAA as well as mild Lt carotid stenosis. Pt denies any abd pain, dizziness, vision changes, recent TIAs. Pt mostly complaining of SOB and chest pain. PMHx: HTN, DM, HLD, CAD s/p 3x CO, COPD/asthma, R carotid stenosis s/p endarterectomy 07/2018, diastolic CHF, CKD, TIA, stable AAA, cocaine and alcohol abuse Home Medications Medication Instructions Recorded Isosorbide Mononitrate [Imdur -] 60 mg PO DAILY #30 tab.sr.24h 07/02/18 Hydralazine HCl 100 mg PO TID 08/09/18 Atorvastatin Ca [Lipitor] 80 mg PO HS #30 tablet 08/17/18 Carvedilol [Coreg -] 25 mg PO BID #60 tablet 08/17/18 Spironolactone [Aldactone -] 50 mg PO DAILY #30 tablet 08/17/18 Clopidogrel Bisulfate [Plavix] 75 mg PO DAILY 10/19/18 Cyclobenzaprine HCl 5 mg PO Q8H PRN #6 tablet 10/20/18 Methyl Salicylate/Menthol Oint 1 applic TP DAILY PRN #1 applic 10/20/18 [Analgesic [place] -] Albuterol 0.083% Nebulizer Jane 1 amp NEB Q4H #10 amp 11/01/18 [Ventolin 0.083% Nebulizer Soln -] Miscellaneous Medical Supply 1 each .ROUTE ASDIR #1 kit 11/03/18 [Glucometer Device] Miscellaneous Medical Supply 1 each .ROUTE ASDIR #1 box 11/03/18 [Glucometer Test Strips #100] Aspirin Coated [Ecotrin -] 81 mg PO DAILY tablet.ec 11/04/18 Furosemide [Lasix -] 40 mg PO DAILY tablet 11/04/18 Insulin (Levemir) [Levemir Vial] 30 units SQ 0700,2200 units 11/04/18 Insulin Sliding Scale [Novolog 1 vial SQ ACHS units 11/04/18 Vial Sliding Scale -] Nifedipine ER [Procardia XL -] 90 mg PO DAILY tab.er.24 11/04/18 Sitagliptin Phosphate [Januvia -] 25 mg PO DAILY@0700 #30 tab 11/04/18 Allergies Allergy/AdvReac Type Severity Reaction Status Date / Time IRMA Inhibitors Allergy Verified 12/01/18 18:50 PHYSICAL EXAM: GENERAL: Awake, alert, and fully oriented, in no acute distress. HEAD: Normal with no signs of trauma. EYES: PERRL, sclera anicteric, conjunctiva clear. NECK: Normal ROM, supple without lymphadenopathy, JVD, or masses. No carotid bruits. LUNGS: Clear to auscultation bilat anteriorly. No wheezes, and no crackles. No accessory muscle use. HEART: Regular rate and rhythm. ABDOMEN: Soft, nontender, not distended, no guarding, no rebound, no masses. No organomegaly. UPPER EXTREMITIES: 2+ pulses, warm, well-perfused. No cyanosis. Cap refill <2 seconds. No peripheral edema. LOWER EXTREMITIES: 2+ pulses, warm, well-perfused. No calf tenderness. No peripheral edema. NEUROLOGICAL: Normal speech, gait not observed. PSYCH: Cooperative. Good eye contact. Appropriate mood and affect. SKIN: Warm, dry, normal turgor, no rashes or lesions noted. Vital Signs Temperature 98.0 F 12/06/18 06:00 Pulse Rate 96 H 12/06/18 07:15 Respiratory Rate 23 H 12/06/18 09:00 Blood Pressure 181/112 H 12/06/18 07:15 O2 Sat by Pulse Oximetry (%) 98 12/04/18 09:00 Lab Results WBC 8.6 K/mm3 (4.0-10.0) 12/06/18 06:20 RBC 3.71 M/mm3 (4.00-5.60) L 12/06/18 06:20 Hgb 11.5 GM/dL (11.7-16.9) L 12/06/18 06:20 Hct 35.8 % (35.4-49) 12/06/18 06:20 MCV 96.5 fl (80-96) H 12/06/18 06:20 MCHC 32.2 g/dl (32.0-35.9) 12/06/18 06:20 RDW 16.5 % (11.9-15.9) H 12/06/18 06:20 Plt Count 420 K/MM3 (134-434) 12/06/18 06:20 Sodium 137 mmol/L (136-145) 12/06/18 06:20 Potassium 3.9 mmol/L (3.5-5.1) 12/06/18 06:20 Chloride 99 mmol/L (98-107) 12/06/18 06:20 Carbon Dioxide 30 mmol/L (21-32) 12/06/18 06:20 Anion Gap 8 MMOL/L (8-16) 12/06/18 06:20 BUN 19.7 mg/dL (7-18) H 12/06/18 06:20 Creatinine 1.3 mg/dL (0.55-1.3) 12/06/18 06:20 Random Glucose 273 mg/dL (74-106) H 12/06/18 06:20 Calcium 9.1 mg/dL (8.5-10.1) 12/06/18 06:20 INR 1.22 (0.83-1.09) H 12/01/18 20:10 Problem List - Problems (1) Abnormal findings on diagnostic imaging of abdomen Assessment/Plan: Plan -pt AAA on imaging is unchanged and stable as per previous imaging, no surgical intervention needed at this time. -continue serial imaging monitoring, follow up with Dr. Johnson in clinic. Code(s): R93.5 - ABN FINDINGS ON DX IMAGING OF ABD REGIONS, INC RETROPERITON (2) Carotid stenosis, left Assessment/Plan: Plan -carotid stenosis noted on imaging in the Lt is mild to moderate in nature, and does not require surgical intervention at this time. -pt should continu to follow up with Dr. Johnson in clinic for serial monitoring Code(s): I65.22 - OCCLUSION AND STENOSIS OF LEFT CAROTID ARTERY Visit type - Case Type Case Type: ED Admission - Emergency Emergency Visit: Yes ED Registration Date: 12/01/18 Care time: The patient presented to the Emergency Department on the above date and was hospitalized for further evaluation of their emergent condition. - New patient This patient is new to me today: No - Critical Care Critical Care patient: No
[2018-12-06] MEDS ORDERED: CHLORTHALIDONE 25 MG TABLET PO SCH (12:30)
--- NOTE | 2018-12-06 12:51 | PN ---
Teaching Attending Note Name of Resident: Roxane Lauren ATTENDING PHYSICIAN STATEMENT I saw and evaluated the patient. I reviewed the resident's note and discussed the case with the resident. I agree with the resident's findings and plan as documented. SUBJECTIVE: Pt seen and examined in the ICU. Blood pressures still high. Denies headache, shortness of breath or chest pain. RUE weakness improving. c/o right face numbness ever since his CEA. OBJECTIVE: Vital Signs Period Temp Pulse Resp BP Sys/Caal Pulse Ox Last 24 Hr 98.0 F-98.1 F 84-96 17-23 155-186/96-112 Intake & Output 12/03/18 12/04/18 12/05/18 12/06/18 23:59 23:59 23:59 23:59 Intake Total 8224 311 1004 Output Total 1400 1700 3550 600 Balance 250 -940 -2000 -600 Weight 115.212 kg 117.435 kg Gen: NAD in chair Heart: RRR Lung: decreased breath sounds at the bases Abd: soft, nontender Ext: no edema CBC, BMP 12/06/18 06:20 12/06/18 06:20 Active Medications Albuterol Sulfate (Ventolin 0.083% Nebulizer Soln -) 1 amp NEB RQID PRN PRN Reason: SHORT OF BREATH/WHEEZING Last Admin: 12/03/18 20:04 Dose: 1 amp Aspirin (Ecotrin -) 81 mg PO DAILY [facility] Last Admin: 12/06/18 09:12 Dose: 81 mg Atorvastatin Calcium (Lipitor -) 80 mg PO HS [facility] Last Admin: 12/05/18 21:33 Dose: 80 mg Chlorthalidone (Hygroton -) 25 mg PO DAILY [facility] Clopidogrel Bisulfate (Plavix -) 75 mg PO DAILY [facility] Last Admin: 12/06/18 09:13 Dose: 75 mg Enoxaparin Sodium (Lovenox -) 40 mg SQ DAILY [facility] Last Admin: 12/06/18 09:13 Dose: 40 mg Furosemide (Lasix -) 40 mg PO DAILY [facility] Last Admin: 12/06/18 09:13 Dose: 40 mg Hydralazine HCl (Apresoline -) 100 mg PO TID [facility] Last Admin: 12/06/18 05:56 Dose: 100 mg Ceftriaxone Sodium 1 gm/ (Dextrose) 50 mls @ 200 mls/hr IVPB DAILY [facility]; Protocol Last Admin: 12/06/18 09:12 Dose: 200 mls/hr Insulin Aspart (Novolog Vial Sliding Scale -) 1 vial SQ ACHS [facility]; Protocol Last Admin: 12/06/18 05:59 Dose: 6 units Isosorbide Mononitrate (Imdur -) 60 mg PO DAILY [facility] Last Admin: 12/06/18 09:14 Dose: 60 mg Labetalol HCl (Normodyne -) 300 mg PO TID [facility] Lorazepam (Ativan Injection -) 2 mg IVPUSH Q2H PRN PRN Reason: AGITATION Nifedipine (Procardia Xl -) 90 mg PO DAILY [facility] Last Admin: 12/05/18 09:30 Dose: 90 mg Pantoprazole Sodium (Protonix Iv) 40 mg IVPUSH DAILY [facility] Last Admin: 12/06/18 09:12 Dose: 40 mg Spironolactone (Aldactone -) 50 mg PO BID [facility] ASSESSMENT AND PLAN: Hypertensive Urgency r/o Acute CVA r/o Hypertensive Encephalopathy r/o Acute Colitis CAD LV Diastolic Dysfunction COPD Cocaine Abuse CKD HTN DM Noncompliance - BP control - neuro checks - ASA, plavix - O2 to keep SpO2 >90% - on empiric antibiotics - DVT prophylaxis - can monitor on telemetry
[2018-12-06] MEDS ORDERED: ALBUTEROL SO4 0.083% IH SOL 2.5 MG/3 ML VIAL.NEB. NEB PRN (14:30)
[2018-12-06] MEDS ORDERED: LORazepam 2 MG/ML SDV VIAL IVPUSH PRN (14:30)
--- NOTE | 2018-12-06 16:22 | PN ---
Physical Exam: SUBJECTIVE: Patient seen and examined at bedside. pt is stating that his symptoms are resolving and that he is feeling better. denies SOB and CP OBJECTIVE: Vital Signs Period Temp Pulse Resp BP Sys/Caal Pulse Ox Last 24 Hr 98.0 F-98.1 F 87-96 17-23 155-186/96-112 GENERAL: The patient is awake, alert, and fully oriented, in no acute distress. LUNGS: Breath sounds equal, clear to auscultation bilaterally, no wheezes, no crackles, no accessory muscle use. HEART: Regular rate and rhythm, S1, S2 without murmur, rub or gallop. ABDOMEN: Soft, nontender, nondistended, normoactive bowel sounds, no guarding. EXTREMITIES: 2+ pulses, warm, well-perfused, no edema. NEUROLOGICAL: Cranial nerves II through XII grossly intact. Normal speech, gait not observed. SKIN: Warm, dry, normal turgor, no rashes or lesions noted Laboratory Results - last 24 hr 12/06/18 12/06/18 12/06/18 06:20 06:20 12:26 WBC 8.6 RBC 3.71 L Hgb 11.5 L Hct 35.8 MCV 96.5 H MCH 31.0 MCHC 32.2 RDW 16.5 H Plt Count 420 MPV 7.7 Absolute Neuts (auto) 6.6 Neutrophils % 76.2 Lymphocytes % 14.5 Monocytes % 7.6 Eosinophils % 0.7 Basophils % 1.0 Nucleated RBC % 0 Sodium 137 Potassium 3.9 Chloride 99 Carbon Dioxide 30 Anion Gap 8 BUN 19.7 H Creatinine 1.3 Est GFR (CKD-EPI)AfAm 70.20 Est GFR (CKD-EPI)NonAf 60.57 POC Glucometer 372 Random Glucose 273 H Calcium 9.1 Phosphorus 3.4 Magnesium 1.7 L Total Bilirubin 0.6 AST 53 H ALT 83 H Alkaline Phosphatase 187 H Total Protein 6.4 Albumin 2.8 L Current Medications Albuterol Sulfate (Ventolin 0.083% Nebulizer Soln -) 1 amp NEB RQID PRN PRN Reason: SHORT OF BREATH/WHEEZING Aspirin (Ecotrin -) 81 mg PO DAILY [facility] Atorvastatin Calcium (Lipitor -) 80 mg PO HS [facility] Chlorthalidone (Hygroton -) 25 mg PO DAILY [facility] Clopidogrel Bisulfate (Plavix -) 75 mg PO DAILY [facility] Enoxaparin Sodium (Lovenox -) 40 mg SQ DAILY [facility] Furosemide (Lasix -) 40 mg PO DAILY [facility] Hydralazine HCl (Apresoline -) 100 mg PO TID [facility] Ceftriaxone Sodium 1 gm/ (Dextrose) 50 mls @ 200 mls/hr IVPB DAILY [facility]; Protocol Insulin Aspart (Novolog Vial Sliding Scale -) 1 vial SQ ACHS [facility]; Protocol Isosorbide Mononitrate (Imdur -) 60 mg PO DAILY [facility] Labetalol HCl (Normodyne -) 300 mg PO TID [facility] Lorazepam (Ativan Injection -) 2 mg IVPUSH Q2H PRN PRN Reason: AGITATION Nifedipine (Procardia Xl -) 90 mg PO DAILY [facility] Pantoprazole Sodium (Protonix Iv) 40 mg IVPUSH DAILY [facility] Spironolactone (Aldactone -) 50 mg PO BID [facility] ASSESSMENT/PLAN: 58 yo M w/ PMH of HTN, HLD, DM, DE (x3 w/ stents), substance abuse ( cocaine), HFpEF, COPD presented to the ED with chest pain and hypertensive emergency. Pt is admitted to ICU for management of hypertensive emergency. On admission, pt was found to have right arm weakness prompting stroke workup. Neuro: Acute stroke vs hypertensive encephalopathy , TIA post right CEA, 50-69% left carotid -AAOx3 -Neuro recs appreciated -brain MRI reviewed, no acute infarct, see above findings -carotid u/s showing hemodynamic stenosis of L common carotid, see above report. vascular recs appreciated Cardio: Hypertensive emergency 2/2 medication noncompliance, CAD , Hx of DE, ( s /p PCI/ stent w/ demand ischemia) , HLD, HFpEF, 4.3 cm infrarenal AAA with mural thrombus -c/w asa, plavix, statin -c/w PO lasix 40 -counselled on importance of drug cessation -c/w aldactone 50 daily, hydralazine 100 tid, asa , plavix 75, lipitor 80, procardia 90, imdur 60 -d/c coreg and starting labetalol 300 TID , chlorthalidone -recommending close f/u outpt Pulm: COPD -on RA saturating well; not in exacerbation -SpO2>90% -ventolin PRN GI: transaminitis possible 2/2 HTN -abdomen u/s noted above -Ct abdomen shows thickening of sigmoid colon although no clinical evidence of ongoing colitis or diverticulitis. There are diverticula noted. -continue to monitor -colonoscopy as outpt -GI recs appreciated Nephro: CKD -avoid nephrotoxic agents Endo: DM -BGM, ISS ID - Acute Colitis -c/w ceftriaxone for now DVT: Lovenox F/E/N -not on IVF at this time -monitor lytes -diabetic/ sodium diet Dispo: transfer to tele Visit type - Emergency Visit Emergency Visit: No - New Patient This patient is new to me today: No - Critical Care Critical Care patient: Yes Total Critical Care Time (in minutes): 36 Critical Care Statement: The care of this patient involved high complexity decision making to prevent further life threatening deterioration of the patient 's condition and/or to evaluate & treat vital organ system(s) failure or risk of failure. ATTENDING PHYSICIAN STATEMENT I saw and evaluated the patient. I reviewed the resident's note and discussed the case with the resident. I agree with the resident's findings and plan as documented. SUBJECTIVE: OBJECTIVE: ASSESSMENT AND PLAN:
[2018-12-06] MEDS ORDERED: PT OWN MED DRAWER 7, Y5N ONE (18:05)
[2018-12-06] MEDS: LABETALOL HCL 100 MG TABLET (FP) PO SCH ×2 (18:07→21:55)
[2018-12-06] MEDS ORDERED: INSULIN (NOVOLOG) ASPART 100 UNITS/ML 10ML VIAL ONE (21:16)
[2018-12-06] MEDS: ATORVASTATIN CA 80 MG TABLET (FP) PO SCH (21:52)
[2018-12-07] MEDS: LABETALOL HCL 100 MG TABLET (FP) PO SCH (02:15)
[2018-12-07] MEDS: hydrALAZINE HCL 50 MG TABLET (FP) PO SCH ×3 (06:41→21:15)
[2018-12-07] MEDS: INSULIN SLIDING SCALE (NOVOLOG) 1 VIAL SQ SCH ×4 (06:42→21:15)
[2018-12-07 06:43] LABS: HEMATOCRIT 32.4 % (35.4-49); HEMOGLOBIN 10.4 GM/dL (11.7-16.9); MCH 30.9 pg (25.7-33.7); MCHC 32.2 g/dl (32.0-35.9); MEAN PLT VOLUME 7.5 fl (7.5-11.1); PLATELET COUNT 416 K/MM3 (134-434); RBC 3.38 M/mm3 (4.00-5.60); RDW 16.2 % (11.9-15.9); WHITE BLOOD COUNT 9.4 K/mm3 (4.0-10.0)
[2018-12-07 07:27] LABS: ALBUMIN 2.7 g/dl (3.4-5.0); BILIRUBIN,TOTAL 0.5 mg/dL (0.2-1); BLOOD UREA NITROGEN 20.5 mg/dL (7-18); CALCIUM 8.8 mg/dL (8.5-10.1); CREATININE 1.4 mg/dL (0.55-1.3); MAGNESIUM 1.8 mg/dL (1.8-2.4)
--- NOTE | 2018-12-07 07:39 | PN ---
Physical Exam: SUBJECTIVE: Patient seen and examined at the bedside, no acute events. Patient still hypertensive to the 160s/100s/. Refusing to participate in exam this morning, verbalizes that he still has UE weakness. OBJECTIVE: Vital Signs Period Temp Pulse Resp BP Sys/Caal Pulse Ox Last 24 Hr 97.8 F-98.1 F 86-120 20-23 157-186/97-115 GENERAL: The patient is awake, alert, and fully oriented, in no acute distress. HEAD: Normal with no signs of trauma. EYES: PERRL, extraocular movements intact, sclera anicteric, conjunctiva clear. ENT: Ears normal, oropharynx clear without exudates, moist mucous membranes. NECK: Trachea midline, full range of motion, supple. LUNGS: Breath sounds equal, clear to auscultation bilaterally, no wheezes, no crackles, no accessory muscle use. HEART: Regular rate and rhythm, S1, S2 without murmur, rub or gallop. ABDOMEN: Soft, NT,ND, normoactive bowel sounds, no guarding, no rebound, no hepatosplenomegaly, no masses. EXTREMITIES: 2+ pulses, warm, well-perfused, trace edema. NEUROLOGICAL: Cranial nerves II through XII grossly intact. Normal speech now , gait not observed. PSYCH: Normal mood, normal affect. SKIN: Warm, dry, normal turgor, no rashes or lesions noted Laboratory Results - last 24 hr 12/06/18 12/06/18 12/06/18 12:26 17:45 21:49 WBC RBC Hgb Hct MCV MCH MCHC RDW Plt Count MPV Sodium Potassium Chloride Carbon Dioxide Anion Gap BUN Creatinine Est GFR (CKD-EPI)AfAm Est GFR (CKD-EPI)NonAf POC Glucometer 372 336 364 Random Glucose Calcium Phosphorus Magnesium Total Bilirubin AST ALT Alkaline Phosphatase Total Protein Albumin 12/07/18 12/07/18 12/07/18 05:40 05:40 06:32 WBC 9.4 RBC 3.38 L Hgb 10.4 L Hct 32.4 L MCV 96.0 MCH 30.9 MCHC 32.2 RDW 16.2 H Plt Count 416 MPV 7.5 Sodium 136 Potassium 4.0 Chloride 99 Carbon Dioxide 30 Anion Gap 7 L BUN 20.5 H Creatinine 1.4 H Est GFR (CKD-EPI)AfAm 64.18 Est GFR (CKD-EPI)NonAf 55.38 POC Glucometer 319 Random Glucose 315 H Calcium 8.8 Phosphorus 4.0 Magnesium 1.8 Total Bilirubin 0.5 AST 47 H ALT 80 H Alkaline Phosphatase 178 H Total Protein 6.0 L Albumin 2.7 L Active Medications Generic Name Dose Route Start Last Admin Trade Name Freq PRN Reason Stop Dose Admin Albuterol Sulfate 1 amp 12/06/18 14:30 Ventolin 0.083% Nebulizer Soln - NEB RQID PRN SHORT OF BREATH/WHEEZING Aspirin 81 mg 12/07/18 10:00 Ecotrin - PO DAILY [facility] Atorvastatin Calcium 80 mg 12/06/18 22:00 12/06/18 21:52 Lipitor - PO 80 mg HS [facility] Administration Chlorthalidone 25 mg 12/06/18 12:30 12/06/18 21:51 [place] - PO 25 mg DAILY [facility] Administration Clopidogrel Bisulfate 75 mg 12/07/18 10:00 Plavix - PO DAILY [facility] Enoxaparin Sodium 40 mg 12/07/18 10:00 Lovenox - SQ DAILY [facility] Furosemide 40 mg 12/07/18 10:00 Lasix - PO DAILY [facility] Hydralazine HCl 100 mg 12/06/18 22:00 12/07/18 06:41 Apresoline - PO 100 mg TID [facility] Administration Ceftriaxone Sodium 1 gm/ 50 mls @ 200 mls/hr 12/07/18 10:00 Dextrose IVPB DAILY [facility] Protocol Insulin Aspart 1 vial 12/06/18 16:30 12/07/18 06:42 Novolog Vial Sliding Scale - SQ 8 units ACHS [facility] Administration Protocol Isosorbide Mononitrate 60 mg 12/07/18 10:00 Imdur - PO DAILY [facility] Labetalol HCl 300 mg 12/06/18 14:00 12/07/18 02:15 Normodyne - PO 300 mg TID [facility] Administration Lorazepam 2 mg 12/06/18 14:30 Ativan Injection - IVPUSH Q2H PRN AGITATION Nifedipine 90 mg 12/07/18 10:00 Procardia Xl - PO DAILY [facility] Pantoprazole Sodium 40 mg 12/07/18 10:00 Protonix Iv IVPUSH DAILY [facility] Spironolactone 50 mg 12/06/18 22:00 12/06/18 21:52 Aldactone - PO 50 mg BID [facility] Administration ASSESSMENT/PLAN: 58 y.o. M PMH HTN, DM2, HLD, CAD s/p 3x MS, COPD/asthma, R carotid stenosis s/p endarterectomy 07/2018, diastolic CHF, CKD, TIA, stable AAA, cocaine and alcohol abuse presenting with chest pain. #CVA vs. HTN encephalopathy - NIHSS 8 - Permissive HTN but per neurology, suggest treating bp if above 220/120 - Continue Atorvastatin 80mg daily, asa 81mg daily, plavix 75mg daily - F/u Brain MRI w/o contrast, carotid doppler, echo - Neuro consulted (Dr. Kent), appreciate recommendations - PT, speech and dvt prophylaxis - stroke education - cessation of drug abuse - IV diuresis and spirinolactone 50 qd with monitor for diuretic response, renal fxn and electrolytes - Continue Carvedilol 25 bid, Hydralazine 100 tid, ASA 81 qd, Plavix 75 qd, Lipitor 80 qhs, Procardia XL 90 qd, Imdur 60 qd and uptitrate as tolerated - add chlorthalidone 25mg daily - add labetalol 300 TID #Hypertensive emergency - Cardiology consulted, appreciate recommendations - Wean Cardene gtt - f/u echo to assess ventricular and valve fxn, mri of brain and carotid ultrasound - Holding home anti HTN meds to allow permissive HTN - F/u repeat trop & EKG #Colitis -Protonix 40mg IV daily -GI consulted (Dr. Lowe) -Hold steroids at this time; recently completed course on last d/c 1 month ago #CHF -BNP 5649.8 (6880 1 mo ago) -Hold lasix to allow for permissive HTN -daily weights -Is & Os #GOGO on CKD- resolved -Dr. Gilmore (nephro)consulted, appreciate recommendations - Continue hydralzine IV PRN. can consider addition of oral CCB once stricter BP control is required - Trend renal function and electrolytes continue statin - Avoid nephrotoxic medications - avoid beta blockers as pt has had recent cocaine use by toxicology screen #DM type 2 -ISS -BGMs #Transaminitis -Hepatitis panel neg as per 07/2018 labs -F/u AM labs -F/u RUQ U/S #Polysubstance abuse -PRN ativan if withdrawal -Utox + for cocaine, opioids (given morphine in ED) #FEN -No standing fluids -Trend lytes, replete PRN -NPO #DVT PPX -SCDs -Lovenox #Dispo Transfer to telemetry Visit type - Emergency Visit Emergency Visit: Yes ED Registration Date: 12/01/18 Care time: The patient presented to the Emergency Department on the above date and was hospitalized for further evaluation of their emergent condition. - New Patient This patient is new to me today: No - Critical Care Critical Care patient: No - Discharge Referral Referred to [facility] Med P.C.: No ATTENDING PHYSICIAN STATEMENT I saw and evaluated the patient. I reviewed the resident's note and discussed the case with the resident. I agree with the resident's findings and plan as documented. SUBJECTIVE: OBJECTIVE: ASSESSMENT AND PLAN:
[2018-12-07] MEDS ORDERED: DEXTROSE 5%-WATER - 50 ML IVPB ONE (08:41)
[2018-12-07] MEDS ORDERED: cefTRIAXone SODIUM 1 GM VIAL ONE (08:41)
[2018-12-07] MEDS: ISOSORBIDE MONONITRATE 60 MG TAB.SR.24H (FP) PO SCH (09:11)
[2018-12-07] MEDS: SPIRONOLACTONE 25 MG TABLET (FP) PO SCH ×2 (09:12→21:15)
[2018-12-07] MEDS: CLOPIDOGREL BISULFATE 75 MG TABLET (FP) PO SCH (09:12)
[2018-12-07] MEDS: ASPIRIN COATED 81 MG TABLET.EC PO SCH (09:12)
--- NOTE | 2018-12-07 09:16 | PN ---
Teaching Attending Note Name of Resident: Graciela Ames ATTENDING PHYSICIAN STATEMENT I saw and evaluated the patient. I reviewed the resident's note and discussed the case with the resident. I agree with the resident's findings and plan as documented. SUBJECTIVE: patient is feeling better with no acute distress. OBJECTIVE: Vital Signs Period Temp Pulse Resp BP Sys/Caal Pulse Ox Last 24 Hr 97.8 F-98.1 F 86-120 20-23 157-186/97-115 GENERAL: The patient is awake, alert, and fully oriented, in no acute distress. HEAD: Normal with no signs of trauma. EYES: PERRL, extraocular movements intact, sclera anicteric, conjunctiva clear. ENT: Ears normal, oropharynx clear without exudates, moist mucous membranes. NECK: Trachea midline, full range of motion, supple. LUNGS: decreased BS BL, no accessory muscle use. HEART: Regular rate and rhythm, S1, S2 without murmur, rub or gallop. ABDOMEN: Soft, NT,ND, normoactive bowel sounds, no guarding, no rebound, no hepatosplenomegaly, no masses. EXTREMITIES: 2+ pulses, warm, well-perfused, no edema. NEUROLOGICAL: Cranial nerves II through XII grossly intact. Normal speech now , gait not observed. PSYCH: Normal mood, normal affect. SKIN: Warm, dry, normal turgor, no rashes or lesions noted Laboratory Results - last 24 hr 12/06/18 12/06/18 12/06/18 12:26 17:45 21:49 WBC RBC Hgb Hct MCV MCH MCHC RDW Plt Count MPV Sodium Potassium Chloride Carbon Dioxide Anion Gap BUN Creatinine Est GFR (CKD-EPI)AfAm Est GFR (CKD-EPI)NonAf POC Glucometer 372 336 364 Random Glucose Calcium Phosphorus Magnesium Total Bilirubin AST ALT Alkaline Phosphatase Total Protein Albumin Microbiology 12/02/18 10:50 Blood - Peripheral Venous Blood Culture - Preliminary NO GROWTH OBTAINED AFTER 96 HOURS, INCUBATION TO CONTINUE FOR 1 DAYS. 12/02/18 09:55 Blood - Peripheral Venous Blood Culture - Preliminary NO GROWTH OBTAINED AFTER 96 HOURS, INCUBATION TO CONTINUE FOR 1 DAYS. 12/03/18 05:00 Urine - Urine Clean Catch Urine Culture - Final NO GROWTH OBTAINED Us of carotids: small to moderate size soft plaque at the right common carotid bifurcation/bulb without evidence of significant stenosis. MRI of brain: no acute infarct, chronic right posterior temporal cortical infarct. chronic right frontal, and parietal cortical infarct. Mild to moderate periventricular chronic microvascular ischemic changes. ASSESSMENT AND PLAN: Patient is a 58yo male with PMHx of HTN, cocaine use, HLP, CAD s/p NH , chronic diastolic CHF, COPD, nicotine dependence, DM , who presented with CP. He was found to have acute pulm edema with HTN emergency. #Hypertensive Emergency: s/p cardene drip, continue with Labetolol , since bp is still elevated, hydralazine po, procardia xl, coreg, aldactone #Chronic right posterior temporal cortical infarct and chronic right frontal and right parietal cortical infarcts.on Lipitor 80mg hs, aspirin continue. # Polysubstance abuse: detox consult , patient was informed that if he does not stop , he can damage all his organs. #Right maxillary sinus mucus retention cyst/polyp follow outpatient # Hx of CAD: continue home meds, plavix/asa/lipitor/imdur 60mg #Hx of HLD : continue lipitor #T2DM on levemir 30 ( home dose 30 BID) , cont SSI #Hx of R Carotid artery stenosis (95% blockage) s/p endarterectomy by dr. Johnson #chronic diastolic heart failure : Continue lasix, spironolactone 50mg , coreg 25mg bid/imdur continue #COPD: on Nebulizer txments. # Acute colitis (ischemic vs inflammatory/infectious) /acute uncomplicated diverticulitis: no further antibiotic needed as per G #Infrarenal aortic aneurysm: 4.3 cm in diameter ; further w/u as an outpatient by dr Johnson # Right renal calculus: nonobstructing 0.7x0.2cm continue hydration #Mediastinal lymphadenopathy increased; nonspecific DVT PX :SCds for now heparin sq possible dc in am once BP is stable
[2018-12-07] MEDS ORDERED: PANTOPRAZOLE SODIUM 40 MG VIAL IVPUSH SCH (10:00)
[2018-12-07] MEDS ORDERED: NIFEdipine E.R. 30 MG TABLET (FP) PO SCH (10:00)
[2018-12-07] MEDS ORDERED: FUROSEMIDE 40 MG TABLET (FP) PO SCH (10:00)
[2018-12-07] MEDS ORDERED: CEFTRIAXONE 1 GM in DEXTROSE 5%-WATER - 50 ML IVPB SCH (10:00)
[2018-12-07] MEDS: ENOXAPARIN NA (PORCINE) 40 MG/0.4 ML DISP.SYRIN SQ SCH (10:26)
--- NOTE | 2018-12-07 10:36 | PN ---
Progress Note (short form) - Note Progress Note: 58 year old male history of DM,HLD,CAD, COPD, Right carotid endartectomy, chf, ckd, stable aa. Patient has came with right arm and leg weakenss with slurred of speech, his ct head unremarkable. Patient has cocaine positive and he ran out of medication recently. Patient is feeling better adn still have right sided weakness. MRI of brain is normal. no acute distress. no new symptoms, he is feeling better , no new complain NEUROLOGICAL EXAMIATNION Alert oriented x 3, speech is slurred, neck is supple vss eomi, pupils reactive, no face asymmetry Right arm and leg weakess ct head right old posterior temoral lobe infarct identified mri of brain is normal carotid ultrasound should left moderate stenosis and vacular surgery consult pending. Assessment : Right sided hemiparesis with slurring of speech , history of cocaine abuse and noncompliant with his bp medication. mri showed no acute findings. Patient may have hemiparesis due to worsening of old stroke due to cocaine and uncontrolled bp vs sometime small lacunar stroke can be missed on mri of brain. he is feeling better and waiting to go to floor Plan: - continue aspirin, plavix and statin -pt, speech and dvt prophylaxis - stroke education - cessation of drug abuse Thanking you so much Yadiel Kent MD
--- NOTE | 2018-12-07 11:18 | PN ---
Progress Note, Physician Chief Complaint: Events noted Right UE weakness History of Present Illness: Patient was seen and examined. Awake and alert. Chart was reviewed Denies chest pain, SOB or palpitations - Current Medication List Current Medications: Active Medications Albuterol Sulfate (Ventolin 0.083% Nebulizer Soln -) 1 amp NEB RQID PRN PRN Reason: SHORT OF BREATH/WHEEZING Aspirin (Ecotrin -) 81 mg PO DAILY [facility] Last Admin: 12/07/18 09:12 Dose: 81 mg Atorvastatin Calcium (Lipitor -) 80 mg PO HS [facility] Last Admin: 12/06/18 21:52 Dose: 80 mg Clopidogrel Bisulfate (Plavix -) 75 mg PO DAILY [facility] Last Admin: 12/07/18 09:12 Dose: 75 mg Enoxaparin Sodium (Lovenox -) 40 mg SQ DAILY [facility] Last Admin: 12/07/18 10:26 Dose: 40 mg Furosemide (Lasix -) 40 mg PO DAILY [facility] Last Admin: 12/07/18 09:12 Dose: 40 mg Hydralazine HCl (Apresoline -) 100 mg PO TID [facility] Last Admin: 12/07/18 06:41 Dose: 100 mg Ceftriaxone Sodium 1 gm/ (Dextrose) 50 mls @ 200 mls/hr IVPB DAILY [facility]; Protocol Insulin Aspart (Novolog Vial Sliding Scale -) 1 vial SQ ACHS [facility]; Protocol Last Admin: 12/07/18 06:42 Dose: 8 units Isosorbide Mononitrate (Imdur -) 60 mg PO DAILY [facility] Last Admin: 12/07/18 09:11 Dose: 60 mg Labetalol HCl (Normodyne -) 300 mg PO TID [facility] Last Admin: 12/07/18 02:15 Dose: 300 mg Lorazepam (Ativan Injection -) 2 mg IVPUSH Q2H PRN PRN Reason: AGITATION Nifedipine (Procardia Xl -) 90 mg PO DAILY [facility] Last Admin: 12/07/18 09:12 Dose: 90 mg Pantoprazole Sodium (Protonix Iv) 40 mg IVPUSH DAILY [facility] Spironolactone (Aldactone -) 50 mg PO BID [facility] Last Admin: 12/07/18 09:12 Dose: 50 mg - Objective Vital Signs: Vital Signs Temperature 98.8 F 12/07/18 09:00 Pulse Rate 94 H 12/07/18 09:00 Respiratory Rate 20 12/07/18 09:00 Blood Pressure 186/104 H 12/07/18 09:00 O2 Sat by Pulse Oximetry (%) 96 12/07/18 09:00 Eyes: Yes: PERRL HENT: Yes: Atraumatic Neck: Yes: Supple Cardiovascular: Yes: Regular Rate and Rhythm, S1, S2. No: Murmur Respiratory: Yes: CTA Bilaterally Gastrointestinal: Yes: Normal Bowel Sounds, Soft. No: Tenderness Edema: No Additional Findings/Remarks: - Review of Systems Constitutional: denies: Chills, Fever Cardiovascular: denies: Chest Pain, Palpitations, Shortness of Breath Respiratory: denies: Cough, Hemoptysis, Orthopnea, PND, SOB, SOB on Exertion, Wheezing Gastrointestinal: denies: Abdominal Pain, Constipation, Diarrhea, Melena, Nausea , Rectal Bleeding, Vomiting Genitourinary: denies: Dysuria, Hematuria Musculoskeletal: denies: Back Pain Neurological: denies: Dizziness, Headache, Seizure, Syncope Labs: CBC, BMP 12/07/18 05:40 12/07/18 05:40 Problem List - Problems (1) Abnormal liver enzymes Code(s): R74.8 - ABNORMAL LEVELS OF OTHER SERUM ENZYMES (2) CHF (congestive heart failure) Code(s): I50.9 - HEART FAILURE, UNSPECIFIED Qualifiers: Heart failure type: unspecified Heart failure chronicity: acute on chronic Qualified Code(s): I50.9 - Heart failure, unspecified (3) Carotid stenosis, left Code(s): I65.22 - OCCLUSION AND STENOSIS OF LEFT CAROTID ARTERY (4) Hypertensive emergency Code(s): I16.1 - HYPERTENSIVE EMERGENCY (5) Abnormal EKG Code(s): R94.31 - ABNORMAL ELECTROCARDIOGRAM [ECG] [EKG] (6) Uaoiu-mm-hmeqokw kidney injury Code(s): N17.9 - ACUTE KIDNEY FAILURE, UNSPECIFIED; N18.9 - CHRONIC KIDNEY DISEASE, UNSPECIFIED Qualifiers: Chronic kidney disease stage: stage 3 (moderate) (7) CHF exacerbation Code(s): I50.9 - HEART FAILURE, UNSPECIFIED Qualifiers: Heart failure type: unspecified Qualified Code(s): I50.9 - Heart failure, unspecified (8) COPD (chronic obstructive pulmonary disease) Code(s): J44.9 - CHRONIC OBSTRUCTIVE PULMONARY DISEASE, UNSPECIFIED Qualifiers: COPD type: unspecified COPD Qualified Code(s): J44.9 - Chronic obstructive pulmonary disease, unspecified (9) Cerebrovascular disease Code(s): I67.9 - CEREBROVASCULAR DISEASE, UNSPECIFIED (10) Cocaine abuse Code(s): F14.10 - COCAINE ABUSE, UNCOMPLICATED (11) Diabetes Code(s): E11.9 - TYPE 2 DIABETES MELLITUS WITHOUT COMPLICATIONS Qualifiers: Diabetes mellitus type: type 2 (12) Hypertensive urgency Code(s): I16.0 - HYPERTENSIVE URGENCY (13) Acute on chronic diastolic (congestive) heart failure Code(s): I50.33 - ACUTE ON CHRONIC DIASTOLIC (CONGESTIVE) HEART FAILURE (14) CAD (coronary artery disease) Code(s): I25.10 - ATHSCL HEART DISEASE OF [place] CORONARY ARTERY W/O ANG PCTRS Qualifiers: Coronary Disease-Associated Artery/Lesion type: [place] artery [place] vs. transplanted heart: [place] heart Associated angina: without angina Qualified Code(s): I25.10 - Atherosclerotic heart disease of [place] coronary artery without angina pectoris (15) HTN (hypertension) Code(s): I10 - ESSENTIAL (PRIMARY) HYPERTENSION Qualifiers: Hypertension type: essential hypertension Qualified Code(s): I10 - Essential (primary) hypertension (16) History of myocardial infarction Code(s): I25.2 - OLD MYOCARDIAL INFARCTION (17) Hyperlipidemia Code(s): E78.5 - HYPERLIPIDEMIA, UNSPECIFIED Qualifiers: Hyperlipidemia type: pure hypercholesterolemia Qualified Code(s): E78.00 - Pure hypercholesterolemia, unspecified (18) Carotid artery stenosis with cerebral infarction Code(s): I63.239 - CEREB INFRC DUE TO UNSP OCCLS OR STENOS OF UNSP CRTD ARTERY Assessment/Plan 1. Acute stroke vs hypertensive encephalopathy 2. Hypertensive emergency due to medication noncompliance 3. Diastolic dysfunction 4. CAD and history of UT, PCI/stent with demand ischemia 5. PVC 6. COPD with h/o exacerbation 7. Hypercholesterolemia 8. DM 9. CKD 10. Substance abuse (Cocaine) 11. History of angioedema due to ACEI 12. TIA post right CEA, 50-69% left carotid 13. Leukocytosis 14. 4.3 cm infrarenal AAA with mural thrombus PLAN: 1. Continue Lasix 40 mg BID and Spironolactone 50 mg BID with monitoring renal function and electrolytes 2. Continue Carvedilol 25 mg BID, Hydralazine 100 mg TID, ASA 81 mg QD, Plavix 75 mg QD, Lipitor 80 mg QHS, Procardia XL 90 mg QD and Imdur 60 mg QD and uptitrate as tolerated 3. DVT prophylaxis with Lovenox 4. Bronchodilator, O2 as needed and empiric antibiotics Further plans are to follow Nicholas Singletary MD
--- NOTE | 2018-12-07 11:33 | PN ---
Physical Exam: SUBJECTIVE: Patient seen and examined at the bedside, the patient was uncooperative with exam and stated that "you people are the reason my blood pressure is so high". LE edema improving. OBJECTIVE: Vital Signs Period Temp Pulse Resp BP Sys/Caal Pulse Ox Last 24 Hr 97.8 F-98.8 F 86-120 20-23 157-186/97-115 96 GENERAL: The patient is awake, alert, and fully oriented, in no acute distress. HEAD: Normal with no signs of trauma. EYES: PERRL, extraocular movements intact, sclera anicteric, conjunctiva clear. ENT: Ears normal, oropharynx clear without exudates, moist mucous membranes. NECK: Trachea midline, full range of motion, supple. LUNGS: Breath sounds equal, clear to auscultation bilaterally, no wheezes, no crackles, no accessory muscle use. HEART: Regular rate and rhythm, S1, S2 without murmur, rub or gallop. ABDOMEN: Soft, NT,ND, normoactive bowel sounds, no guarding, no rebound, no hepatosplenomegaly, no masses. EXTREMITIES: 2+ pulses, warm, well-perfused, trace edema. NEUROLOGICAL: Cranial nerves II through XII grossly intact. Normal speech now , gait not observed. PSYCH: Normal mood, normal affect. SKIN: Warm, dry, normal turgor, no rashes or lesions noted Laboratory Results - last 24 hr 12/06/18 12/06/18 12/06/18 12:26 17:45 21:49 WBC RBC Hgb Hct MCV MCH MCHC RDW Plt Count MPV Sodium Potassium Chloride Carbon Dioxide Anion Gap BUN Creatinine Est GFR (CKD-EPI)AfAm Est GFR (CKD-EPI)NonAf POC Glucometer 372 336 364 Random Glucose Calcium Phosphorus Magnesium Total Bilirubin AST ALT Alkaline Phosphatase Total Protein Albumin 12/07/18 12/07/18 12/07/18 05:40 05:40 06:32 WBC 9.4 RBC 3.38 L Hgb 10.4 L Hct 32.4 L MCV 96.0 MCH 30.9 MCHC 32.2 RDW 16.2 H Plt Count 416 MPV 7.5 Sodium 136 Potassium 4.0 Chloride 99 Carbon Dioxide 30 Anion Gap 7 L BUN 20.5 H Creatinine 1.4 H Est GFR (CKD-EPI)AfAm 64.18 Est GFR (CKD-EPI)NonAf 55.38 POC Glucometer 319 Random Glucose 315 H Calcium 8.8 Phosphorus 4.0 Magnesium 1.8 Total Bilirubin 0.5 AST 47 H ALT 80 H Alkaline Phosphatase 178 H Total Protein 6.0 L Albumin 2.7 L Active Medications Generic Name Dose Route Start Last Admin Trade Name Freq PRN Reason Stop Dose Admin Albuterol Sulfate 1 amp 12/06/18 14:30 Ventolin 0.083% Nebulizer Soln - NEB RQID PRN SHORT OF BREATH/WHEEZING Aspirin 81 mg 12/07/18 10:00 12/07/18 09:12 Ecotrin - PO 81 mg DAILY [facility] Administration Atorvastatin Calcium 80 mg 12/06/18 22:00 12/06/18 21:52 Lipitor - PO 80 mg HS [facility] Administration Clopidogrel Bisulfate 75 mg 12/07/18 10:00 12/07/18 09:12 Plavix - PO 75 mg DAILY [facility] Administration Enoxaparin Sodium 40 mg 12/07/18 10:00 12/07/18 10:26 Lovenox - SQ 40 mg DAILY [facility] Administration Furosemide 40 mg 12/07/18 10:00 12/07/18 09:12 Lasix - PO 40 mg DAILY [facility] Administration Hydralazine HCl 100 mg 12/06/18 22:00 12/07/18 06:41 Apresoline - PO 100 mg TID [facility] Administration Ceftriaxone Sodium 1 gm/ 50 mls @ 200 mls/hr 12/07/18 10:00 Dextrose IVPB DAILY [facility] Protocol Insulin Aspart 1 vial 12/06/18 16:30 12/07/18 06:42 Novolog Vial Sliding Scale - SQ 8 units ACHS [facility] Administration Protocol Isosorbide Mononitrate 60 mg 12/07/18 10:00 12/07/18 09:11 Imdur - PO 60 mg DAILY [facility] Administration Labetalol HCl 300 mg 12/06/18 14:00 12/07/18 02:15 Normodyne - PO 300 mg TID [facility] Administration Lorazepam 2 mg 12/06/18 14:30 Ativan Injection - IVPUSH Q2H PRN AGITATION Nifedipine 90 mg 12/07/18 10:00 12/07/18 09:12 Procardia Xl - PO 90 mg DAILY [facility] Administration Pantoprazole Sodium 40 mg 12/07/18 10:00 Protonix Iv IVPUSH DAILY [facility] Spironolactone 50 mg 12/06/18 22:00 12/07/18 09:12 Aldactone - PO 50 mg BID [facility] Administration ASSESSMENT/PLAN: 58 y.o. M PMH HTN, DM2, HLD, CAD s/p 3x NH, COPD/asthma, R carotid stenosis s/p endarterectomy 07/2018, diastolic CHF, CKD, TIA, stable AAA, cocaine and alcohol abuse presenting with chest pain. #CVA vs. HTN encephalopathy - Continue Atorvastatin 80mg daily, asa 81mg daily, plavix 75mg daily - IV diuresis with lasix 40qD and spirinolactone 50 qd with monitor for diuretic response, renal fxn and electrolytes - Continue Carvedilol 25 bid, Hydralazine 100 tid, ASA 81 qd, Plavix 75 qd, Lipitor 80 qhs, Procardia XL 120 qd, Imdur 60 qd and uptitrate as tolerated - add labetalol 400 TID - Neuro consulted (Dr. Kent), appreciate recommendations - Cardiology consulted, appreciate recommendations - PT, speech and dvt prophylaxis - stroke education - cessation of drug abuse #Hypertensive emergency - Cardiology consulted, appreciate recommendations - continue anti-HTN regimen as above, will continue to monitor on telemetry. If BPs stable and below 160/100 can and no events caputred on monitors transfer to [facility] - repeat utox pending #Colitis- resolved -Protonix 40mg PO daily -GI consulted (Dr. Lowe), appreciate reccs - d/c IV abx #CHF -BNP 5649.8 (6880 1 mo ago) -resumed home lasix -daily weights -Is & Os #GOGO on CKD- resolved -Dr. Gilmore (nephro)consulted, appreciate recommendations - Continue hydralzine IV PRN - Trend renal function and electrolytes - continue statin - Avoid nephrotoxic medications #DM type 2 -ISS -BGMs #FEN -No standing fluids -Trend lytes, replete PRN -diabetic diet #DVT PPX -SCDs -Lovenox #Dispo continue telemetry monitoring Visit type - Emergency Visit Emergency Visit: Yes ED Registration Date: 12/01/18 Care time: The patient presented to the Emergency Department on the above date and was hospitalized for further evaluation of their emergent condition. - New Patient This patient is new to me today: No - Critical Care Critical Care patient: No - Discharge Referral [facility]erred to [facility] Med P.C.: No ATTENDING PHYSICIAN STATEMENT I saw and evaluated the patient. I reviewed the resident's note and discussed the case with the resident. I agree with the resident's findings and plan as documented. SUBJECTIVE: OBJECTIVE: ASSESSMENT AND PLAN:
[2018-12-07] MEDS: LABETALOL HCL 200 MG TABLET (FP) PO SCH ×2 (13:42→21:16)
[2018-12-07] MEDS ORDERED: NIFEdipine E.R 60 MG TABLET (UD) PO SCH (14:20)
--- NOTE | 2018-12-07 16:35 | PN ---
Progress Note (short form) - Note Progress Note: Renal follow up for CKD and hypertension Seen and examined at the bedside awake and alert offers no acute complaints Vital Signs Temperature 98.7 F 12/07/18 13:00 Pulse Rate 99 H 12/07/18 13:40 Respiratory Rate 20 12/07/18 13:40 Blood Pressure 162/102 H 12/07/18 13:40 O2 Sat by Pulse Oximetry (%) 96 12/07/18 09:00 Intake & Output 12/04/18 12/05/18 12/06/18 12/07/18 23:59 23:59 23:59 23:59 Intake Total 760 0661 020 7398 Output Total 1700 3550 600 Balance -940 -2000 -200 1250 Weight 117.435 kg 107.32 kg NAD awake and alert neck supple, no JVD RRR CTA soft NT/ND + edema CBC, BMP 12/07/18 05:40 12/07/18 05:40 Current Medications Albuterol Sulfate (Ventolin 0.083% Nebulizer Soln -) 1 amp NEB RQID PRN PRN Reason: SHORT OF BREATH/WHEEZING Aspirin (Ecotrin -) 81 mg PO DAILY [facility] Last Admin: 12/07/18 09:12 Dose: 81 mg Atorvastatin Calcium (Lipitor -) 80 mg PO HS [facility] Last Admin: 12/06/18 21:52 Dose: 80 mg Clopidogrel Bisulfate (Plavix -) 75 mg PO DAILY [facility] Last Admin: 12/07/18 09:12 Dose: 75 mg Enoxaparin Sodium (Lovenox -) 40 mg SQ DAILY [facility] Last Admin: 12/07/18 10:26 Dose: 40 mg Furosemide (Lasix -) 40 mg PO DAILY [facility] Last Admin: 12/07/18 09:12 Dose: 40 mg Hydralazine HCl (Apresoline -) 100 mg PO TID [facility] Last Admin: 12/07/18 13:42 Dose: 100 mg Insulin Aspart (Novolog Vial Sliding Scale -) 1 vial SQ ACHS [facility]; Protocol Last Admin: 12/07/18 11:33 Dose: 6 units Isosorbide Mononitrate (Imdur -) 60 mg PO DAILY [facility] Last Admin: 12/07/18 09:11 Dose: 60 mg Labetalol HCl (Normodyne -) 400 mg PO TID [facility] Last Admin: 12/07/18 13:42 Dose: 400 mg Lorazepam (Ativan Injection -) 2 mg IVPUSH Q2H PRN PRN Reason: AGITATION Nifedipine (Procardia Xl -) 120 mg PO DAILY [facility] Pantoprazole Sodium (Protonix Iv) 40 mg IVPUSH DAILY [facility] Spironolactone (Aldactone -) 50 mg PO BID [facility] Last Admin: 12/07/18 09:12 Dose: 50 mg 58 year old gentleman with history of Hypertension, hyperlipidemia, CAD s/p PCI and stenting, HF with diastolic dysfunction, COPD who presented to the ED with chest pain and noted to have right upper extremity weakness/CVA and hypertensive emergency. 1. Hypertensive emergency 2. 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 hyperlipidemia Renal function essentially stable. No overt electrolyte or acid base disturbance noted. Trend renal function and electrolytes continue statin Neurology and cardiology follow up tirate BP med with goal BP < 140/90 Increase Lasix to BID for edema management Thank you David Gilmore DO
[2018-12-07 18:42] LABS: COCAINE, UR NEGATIVE ng/ml (CUTOFF=300); METHADONE, UR NEGATIVE ng/ml (CUTOFF=300); OPIATES, URI NEGATIVE ng/ml (CUTOFF=300); PHENCYCLIDINE,URINE NEGATIVE ng/ml (CUTOFF=25); URINE AMPHETAMINES NEGATIVE ng/ml (CUTOFF=500); URINE BARBITURATES NEGATIVE ng/ml (CUTOFF=200); URINE BENZODIAZEPINES NEGATIVE ng/ml (CUTOFF=200)
[2018-12-07] MEDS: ATORVASTATIN CA 80 MG TABLET (FP) PO SCH (21:15)
--- NOTE | 2018-12-07 21:21 | PN ---
Teaching Attending Note Name of Resident: Graciela Ames ATTENDING PHYSICIAN STATEMENT I saw and evaluated the patient. I reviewed the resident's note and discussed the case with the resident. I agree with the resident's findings and plan as documented. SUBJECTIVE: Patient is feeling better but continues to have elevated blood pressure. OBJECTIVE: Vital Signs Temperature 97.7 F 12/07/18 17:00 Pulse Rate 90 12/07/18 17:00 Respiratory Rate 20 12/07/18 17:00 Blood Pressure 151/99 12/07/18 17:00 O2 Sat by Pulse Oximetry (%) 96 12/07/18 09:00 GENERAL: The patient is awake, alert, and fully oriented, in no acute distress. HEAD: Normal with no signs of trauma. EYES: PERRL, extraocular movements intact, sclera anicteric, conjunctiva clear. ENT: Ears normal, oropharynx clear without exudates, moist mucous membranes. NECK: Trachea midline, full range of motion, supple. LUNGS: decreased BS BL, no accessory muscle use. HEART: Regular rate and rhythm, S1, S2 without murmur, rub or gallop. ABDOMEN: Soft, NT,ND, normoactive bowel sounds, no guarding, no rebound, no hepatosplenomegaly, no masses. EXTREMITIES: 2+ pulses, warm, well-perfused, no edema. NEUROLOGICAL: Cranial nerves II through XII grossly intact. Normal speech now , gait not observed. PSYCH: Normal mood, normal affect. SKIN: Warm, dry, normal turgor, no rashes or lesions noted CBCD WBC 9.4 K/mm3 (4.0-10.0) 12/07/18 05:40 RBC 3.38 M/mm3 (4.00-5.60) L 12/07/18 05:40 Hgb 10.4 GM/dL (11.7-16.9) L 12/07/18 05:40 Hct 32.4 % (35.4-49) L 12/07/18 05:40 MCV 96.0 fl (80-96) 12/07/18 05:40 MCHC 32.2 g/dl (32.0-35.9) 12/07/18 05:40 RDW 16.2 % (11.9-15.9) H 12/07/18 05:40 Plt Count 416 K/MM3 (134-434) 12/07/18 05:40 MPV 7.5 fl (7.5-11.1) 12/07/18 05:40 CMP Sodium 136 mmol/L (136-145) 12/07/18 05:40 Potassium 4.0 mmol/L (3.5-5.1) 12/07/18 05:40 Chloride 99 mmol/L (98-107) 12/07/18 05:40 Carbon Dioxide 30 mmol/L (21-32) 12/07/18 05:40 Anion Gap 7 MMOL/L (8-16) L 12/07/18 05:40 BUN 20.5 mg/dL (7-18) H 12/07/18 05:40 Creatinine 1.4 mg/dL (0.55-1.3) H 12/07/18 05:40 Random Glucose 315 mg/dL (74-106) H 12/07/18 05:40 Calcium 8.8 mg/dL (8.5-10.1) 12/07/18 05:40 Total Bilirubin 0.5 mg/dL (0.2-1) 12/07/18 05:40 AST 47 U/L (15-37) H 12/07/18 05:40 ALT 80 U/L (13-61) H 12/07/18 05:40 Alkaline Phosphatase 178 U/L (45-117) H 12/07/18 05:40 Total Protein 6.0 g/dl (6.4-8.2) L 12/07/18 05:40 Albumin 2.7 g/dl (3.4-5.0) L 12/07/18 05:40 CARDIAC ENZYMES Creatine Kinase 160 U/L (26-308) 12/01/18 20:10 Troponin I 0.06 ng/ml (0.00-0.05) H 12/02/18 18:30 Current Medications Generic Name Dose Route Start Last Admin Trade Name Freq PRN Reason Stop Dose Admin Albuterol Sulfate 1 amp 12/06/18 14:30 Ventolin 0.083% Nebulizer Soln - NEB RQID PRN SHORT OF BREATH/WHEEZING Aspirin 81 mg 12/07/18 10:00 12/07/18 09:12 Ecotrin - PO 81 mg DAILY [facility] Administration Atorvastatin Calcium 80 mg 12/06/18 22:00 12/07/18 21:15 Lipitor - PO 80 mg HS [facility] Administration Clopidogrel Bisulfate 75 mg 12/07/18 10:00 12/07/18 09:12 Plavix - PO 75 mg DAILY [facility] Administration Enoxaparin Sodium 40 mg 12/07/18 10:00 12/07/18 10:26 Lovenox - SQ 40 mg DAILY [facility] Administration Furosemide 40 mg 12/08/18 06:00 Lasix - PO BID@0600,1400 [facility] Hydralazine HCl 100 mg 12/06/18 22:00 12/07/18 21:15 Apresoline - PO 100 mg TID [facility] Administration Insulin Aspart 1 vial 12/06/18 16:30 12/07/18 21:15 Novolog Vial Sliding Scale - SQ 10 units ACHS [facility] Administration Protocol Isosorbide Mononitrate 60 mg 12/07/18 10:00 12/07/18 09:11 Imdur - PO 60 mg DAILY [facility] Administration Labetalol HCl 400 mg 12/07/18 11:39 12/07/18 21:16 Normodyne - PO 400 mg TID [facility] Administration Lorazepam 2 mg 12/06/18 14:30 Ativan Injection - IVPUSH Q2H PRN AGITATION Nifedipine 120 mg 12/07/18 14:20 Procardia Xl - PO DAILY [facility] Pantoprazole Sodium 40 mg 12/07/18 10:00 12/07/18 11:58 Protonix Iv IVPUSH Not Given DAILY [facility] Spironolactone 50 mg 12/06/18 22:00 12/07/18 21:15 Aldactone - PO 50 mg BID [facility] Administration Home Medications Medication Instructions Recorded Isosorbide Mononitrate [Imdur -] 60 mg PO DAILY #30 tab.sr.24h 07/02/18 Hydralazine HCl 100 mg PO TID 08/09/18 Atorvastatin Ca [Lipitor] 80 mg PO HS #30 tablet 08/17/18 Carvedilol [Coreg -] 25 mg PO BID #60 tablet 08/17/18 Spironolactone [Aldactone -] 50 mg PO DAILY #30 tablet 08/17/18 Clopidogrel Bisulfate [Plavix] 75 mg PO DAILY 10/19/18 Cyclobenzaprine HCl 5 mg PO Q8H PRN #6 tablet 10/20/18 Methyl Salicylate/Menthol Oint 1 applic TP DAILY PRN #1 applic 10/20/18 [Analgesic [place] -] Albuterol 0.083% Nebulizer Jane 1 amp NEB Q4H #10 amp 11/01/18 [Ventolin 0.083% Nebulizer Soln -] Miscellaneous [employer] 1 each .ROUTE ASDIR #1 kit 11/03/18 [Glucometer Device] Miscellaneous [employer] 1 each .ROUTE ASDIR #1 box 11/03/18 [Glucometer Test Strips #100] Aspirin Coated [Ecotrin -] 81 mg PO DAILY tablet.ec 11/04/18 Furosemide [Lasix -] 40 mg PO DAILY tablet 11/04/18 Insulin (Levemir) [Levemir Vial] 30 units SQ 0700,2200 units 11/04/18 Insulin Sliding Scale [Novolog 1 vial SQ ACHS units 11/04/18 Vial Sliding Scale -] Nifedipine ER [Procardia XL -] 90 mg PO DAILY tab.er.24 11/04/18 Sitagliptin Phosphate [Januvia -] 25 mg PO DAILY@0700 #30 tab 11/04/18 Microbiology 12/02/18 10:50 Blood - Peripheral Venous Blood Culture - Preliminary NO GROWTH OBTAINED AFTER 96 HOURS, INCUBATION TO CONTINUE FOR 1 DAYS. 12/02/18 09:55 Blood - Peripheral Venous Blood Culture - Preliminary NO GROWTH OBTAINED AFTER 96 HOURS, INCUBATION TO CONTINUE FOR 1 DAYS. 12/03/18 05:00 Urine - Urine Clean Catch Urine Culture - Final NO GROWTH OBTAINED Us of carotids: small to moderate size soft plaque at the right common carotid bifurcation/bulb without evidence of significant stenosis. MRI of brain: no acute infarct, chronic right posterior temporal cortical infarct. chronic right frontal, and parietal cortical infarct. Mild to moderate periventricular chronic microvascular ischemic changes. ASSESSMENT AND PLAN: Patient is a 58yo male with PMHx of HTN, cocaine use, HLP, CAD s/p NE , chronic diastolic CHF, COPD, nicotine dependence, DM , who presented with CP. He was found to have acute pulm edema with HTN emergency. #Hypertensive Emergency: s/p cardene drip, continue with Labetolol ,increased the dose to 400mg po tid, since bp is still elevated, hydralazine 100mg tid, increased procardia xl to 120mg po daily, off coreg, on aldactone #Chronic right posterior temporal cortical infarct and chronic right frontal and right parietal cortical infarcts.on Lipitor 80mg hs, aspirin continue. # Polysubstance abuse: detox consult , patient was informed that if he does not stop , he can damage all his organs. #Right maxillary sinus mucus retention cyst/polyp follow outpatient # Hx of CAD: continue home meds, plavix/asa/lipitor/imdur 60mg #Hx of HLD : continue lipitor #T2DM on levemir 30 ( home dose 30 BID) , cont SSI #Hx of R Carotid artery stenosis (95% blockage) s/p endarterectomy by dr. Johnson #chronic diastolic heart failure : Continue lasix, spironolactone 50mg , coreg 25mg bid/imdur continue #COPD: on Nebulizer txments. # Acute colitis (ischemic vs inflammatory/infectious) /acute uncomplicated diverticulitis: no further antibiotic needed as per GI #Infrarenal aortic aneurysm: 4.3 cm in diameter ; further w/u as an outpatient by dr Johnson # Right renal calculus: nonobstructing 0.7x0.2cm continue hydration #Mediastinal lymphadenopathy increased; nonspecific DVT PX :SCds for now heparin sq possible dc in am once BP is stable
[2018-12-08] MEDS: LABETALOL HCL 200 MG TABLET (FP) PO SCH ×2 (05:46→14:42)
[2018-12-08] MEDS: hydrALAZINE HCL 50 MG TABLET (FP) PO SCH ×2 (05:46→14:41)
[2018-12-08] MEDS: FUROSEMIDE 40 MG TABLET (FP) PO SCH ×2 (05:46→14:42)
[2018-12-08] MEDS: INSULIN SLIDING SCALE (NOVOLOG) 1 VIAL SQ SCH ×2 (06:18→12:22)
[2018-12-08 07:24] LABS: BASO % 0.6 % (0-2.0); EOS % 1.1 % (0-4.5); HEMATOCRIT 32.2 % (35.4-49); HEMOGLOBIN 10.4 GM/dL (11.7-16.9); LYMPH % 17.1 % (8-40); MCHC 32.3 g/dl (32.0-35.9); MEAN PLT VOLUME 7.4 fl (7.5-11.1); MONO % 7.9 % (3.8-10.2); NEUT % 73.3 % (42.8-82.8); PLATELET COUNT 426 K/MM3 (134-434); RBC 3.35 M/mm3 (4.00-5.60); RDW 16.3 % (11.9-15.9); WHITE BLOOD COUNT 9.1 K/mm3 (4.0-10.0)
[2018-12-08 07:40] LABS: ALBUMIN 2.8 g/dl (3.4-5.0); BILIRUBIN,TOTAL 0.6 mg/dL (0.2-1); BLOOD UREA NITROGEN 17.9 mg/dL (7-18); CALCIUM 8.7 mg/dL (8.5-10.1); CREATININE 1.4 mg/dL (0.55-1.3); POTASSIUM 4.2 mmol/L (3.5-5.1)
[2018-12-08] MEDS: ASPIRIN COATED 81 MG TABLET.EC PO SCH (09:04)
[2018-12-08] MEDS: SPIRONOLACTONE 25 MG TABLET (FP) PO SCH (09:04)
[2018-12-08] MEDS: ISOSORBIDE MONONITRATE 60 MG TAB.SR.24H (FP) PO SCH (09:04)
[2018-12-08] MEDS: ENOXAPARIN NA (PORCINE) 40 MG/0.4 ML DISP.SYRIN SQ SCH (09:04)
[2018-12-08] MEDS: CLOPIDOGREL BISULFATE 75 MG TABLET (FP) PO SCH (09:04)
--- NOTE | 2018-12-08 09:08 | PN ---
Progress Note (short form) - Note Progress Note: 58 year old male history of DM,HLD,CAD, COPD, Right carotid endartectomy, chf, ckd, stable aa. Patient has came with right arm and leg weakenss with slurred of speech, his ct head unremarkable. Patient has cocaine positive and he ran out of medication recently. Patient is feeling better adn still have right sided weakness. MRI of brain is normal. no acute distress. no new symptoms, he is feeling better , no new complain NEUROLOGICAL EXAMIATNION Alert oriented x 3, speech is slurred, neck is supple vss eomi, pupils reactive, no face asymmetry mild right arm weakness, and right leg weakness seems to be recovered ct head right old posterior temoral lobe infarct identified mri of brain is normal carotid ultrasound should left moderate stenosis and vacular surgery consult pending. Assessment : Right sided hemiparesis with slurring of speech , history of cocaine abuse and noncompliant with his bp medication. mri showed no acute findings. Patient may have hemiparesis due to worsening of old stroke due to cocaine and uncontrolled bp vs sometime small lacunar stroke can be missed on mri of brain. Plan: - continue aspirin, plavix and statin -pt, speech and dvt prophylaxis - stroke education - cessation of drug abuse, patient can be discharged from neuro point of view Thanking you so much Yadiel Kent MD
--- NOTE | 2018-12-08 09:39 | PN ---
Progress Note, Physician History of Present Illness: Resting comfortably, still reports right UE weakness, BP control improved. - Current Medication List Current Medications: Active Medications Albuterol Sulfate (Ventolin 0.083% Nebulizer Soln -) 1 amp NEB RQID PRN PRN Reason: SHORT OF BREATH/WHEEZING Aspirin (Ecotrin -) 81 mg PO DAILY [facility] Last Admin: 12/08/18 09:04 Dose: 81 mg Atorvastatin Calcium (Lipitor -) 80 mg PO HS [facility] Last Admin: 12/07/18 21:15 Dose: 80 mg Clopidogrel Bisulfate (Plavix -) 75 mg PO DAILY [facility] Last Admin: 12/08/18 09:04 Dose: 75 mg Enoxaparin Sodium (Lovenox -) 40 mg SQ DAILY [facility] Last Admin: 12/08/18 09:04 Dose: 40 mg Furosemide (Lasix -) 40 mg PO BID@0600,1400 [facility] Last Admin: 12/08/18 05:46 Dose: 40 mg Hydralazine HCl (Apresoline -) 100 mg PO TID [facility] Last Admin: 12/08/18 05:46 Dose: 100 mg Insulin Aspart (Novolog Vial Sliding Scale -) 1 vial SQ [facility]; Protocol Last Admin: 12/08/18 06:18 Dose: 10 units Isosorbide Mononitrate (Imdur -) 60 mg PO DAILY [facility] Last Admin: 12/08/18 09:04 Dose: 60 mg Labetalol HCl (Normodyne -) 400 mg PO TID [facility] Last Admin: 12/08/18 05:46 Dose: 400 mg Nifedipine (Procardia Xl -) 120 mg PO DAILY [facility] Last Admin: 12/08/18 09:04 Dose: 120 mg Spironolactone (Aldactone -) 50 mg PO BID [facility] Last Admin: 12/08/18 09:04 Dose: 50 mg - Objective Vital Signs: Vital Signs Temperature 98.3 F 12/08/18 09:00 Pulse Rate 81 12/08/18 09:00 Respiratory Rate 20 12/08/18 09:00 Blood Pressure 160/96 12/08/18 09:00 O2 Sat by Pulse Oximetry (%) 96 12/08/18 09:00 Constitutional: Yes: No Distress, Calm Neck: Yes: Supple Cardiovascular: Yes: Regular Rate and Rhythm Respiratory: Yes: Regular, CTA Bilaterally Gastrointestinal: Yes: Normal Bowel Sounds, Soft Edema: No Labs: CBC, BMP 12/08/18 06:10 12/08/18 06:10 INR, PTT INR 1.22 (0.83-1.09) H 12/01/18 20:10 Problem List - Problems (1) Hypertensive emergency Code(s): I16.1 - HYPERTENSIVE EMERGENCY (2) Cerebrovascular disease Code(s): I67.9 - CEREBROVASCULAR DISEASE, UNSPECIFIED (3) Chest pain Code(s): R07.9 - CHEST PAIN, UNSPECIFIED Qualifiers: Chest pain type: precordial pain Qualified Code(s): R07.2 - Precordial pain (4) Cocaine abuse Code(s): F14.10 - COCAINE ABUSE, UNCOMPLICATED (5) Diabetic nephropathy associated with type 2 diabetes mellitus Code(s): E11.21 - TYPE 2 DIABETES MELLITUS WITH DIABETIC NEPHROPATHY (6) Shortness of breath Code(s): R06.02 - SHORTNESS OF BREATH (7) Acute on chronic diastolic (congestive) heart failure Code(s): I50.33 - ACUTE ON CHRONIC DIASTOLIC (CONGESTIVE) HEART FAILURE (8) Alcohol dependence Code(s): F10.20 - ALCOHOL DEPENDENCE, UNCOMPLICATED Qualifiers: Substance use status: unspecified alcohol-induced disorder Qualified Code(s ): F10.29 - Alcohol dependence with unspecified alcohol-induced disorder (9) CAD (coronary artery disease) Code(s): I25.10 - ATHSCL HEART DISEASE OF [place] CORONARY ARTERY W/O ANG PCTRS Qualifiers: Coronary Disease-Associated Artery/Lesion type: [place] artery [place] vs. transplanted heart: [place] heart Associated angina: without angina Qualified Code(s): I25.10 - Atherosclerotic heart disease of [place] coronary artery without angina pectoris (10) Hyperlipidemia Code(s): E78.5 - HYPERLIPIDEMIA, UNSPECIFIED Qualifiers: Hyperlipidemia type: pure hypercholesterolemia Qualified Code(s): E78.00 - Pure hypercholesterolemia, unspecified Assessment/Plan 12/02/2018 Mri of brain: No acute stroke, old right posterior temporal cortical infarct 12/02/2018 Carotid ultrasound should left moderate stenosis and vacular surgery consult pending 12/02/2018 Echo: Normal LV size and fxn with mod cLVH, normal RV size and fxn, mild SHAHANA, mild MR, TR, AR 12/01/2018 Ct head right 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 Acute stroke vs hypertensive encephalopathy 2. Hypertensive emergency due to medication noncompliance 3. Diastolic dysfunction 4. CAD and history of MT, PCI/stent with demand ischemia 5. PVC 6. COPD with h/o exacerbation 7. Hypercholesterolemia 8. DM 9. CKD 10. Substance abuse (Cocaine) 11. History of angioedema due to ACEI 12. TIA post right CEA, 50-69% left carotid 13. Leukocytosis 14. 4.3 cm infrarenal AAA with mural thrombus PLAN: 1. Continue Lasix 40 mg BID and Spironolactone 50 mg BID with monitoring renal function and electrolytes 2. Continue Labetolol 400 tid, Hydralazine 100 mg TID, ASA 81 mg QD, Plavix 75 mg QD, Lipitor 80 mg QHS, Procardia XL 120 mg QD and Imdur 60 mg QD and uptitrate as tolerated 3. DVT prophylaxis with Lovenox 4. Bronchodilator, O2 as needed and d/c planning
[2018-12-08 14:46] VITALS: BP 126/75; PULSE 85; TEMP 97.3
--- NOTE | 2018-12-08 15:41 | PN ---
Progress Note (short form) - Note Progress Note: Renal follow up for CKD and hypertension Seen and examined at the bedside awake and alert offers no acute complaints denies any shortness of breath, chest pain, abd pain, fever or chills making urine Vital Signs Temperature 97.3 F L 12/08/18 14:40 Pulse Rate 85 12/08/18 14:40 Respiratory Rate 20 12/08/18 09:00 Blood Pressure 126/75 12/08/18 14:40 O2 Sat by Pulse Oximetry (%) 96 12/08/18 09:00 Intake & Output 12/05/18 12/06/18 12/07/18 12/08/18 23:59 23:59 23:59 23:59 Intake Total 1381 688 4582 600 Output Total 3550 600 Balance -2000 -200 1750 600 Weight 117.435 kg 107.32 kg 105.506 kg NAD awake and alert neck supple, no JVD RRR CTA soft NT/ND + edema CBC, BMP 12/08/18 06:10 12/08/18 06:10 Current Medications Albuterol Sulfate (Ventolin 0.083% Nebulizer Soln -) 1 amp NEB RQID PRN PRN Reason: SHORT OF BREATH/WHEEZING Aspirin (Ecotrin -) 81 mg PO DAILY [facility] Last Admin: 12/08/18 09:04 Dose: 81 mg Atorvastatin Calcium (Lipitor -) 80 mg PO HS [facility] Last Admin: 12/07/18 21:15 Dose: 80 mg Clopidogrel Bisulfate (Plavix -) 75 mg PO DAILY [facility] Last Admin: 12/08/18 09:04 Dose: 75 mg Enoxaparin Sodium (Lovenox -) 40 mg SQ DAILY [facility] Last Admin: 12/08/18 09:04 Dose: 40 mg Furosemide (Lasix -) 40 mg PO BID@0600,1400 [facility] Last Admin: 12/08/18 14:42 Dose: 40 mg Hydralazine HCl (Apresoline -) 100 mg PO TID [facility] Last Admin: 12/08/18 14:41 Dose: 100 mg Insulin Aspart (Novolog Vial Sliding Scale -) 1 vial SQ ACHS [facility]; Protocol Last Admin: 12/08/18 12:22 Dose: 10 units Isosorbide Mononitrate (Imdur -) 60 mg PO DAILY [facility] Last Admin: 12/08/18 09:04 Dose: 60 mg Labetalol HCl (Normodyne -) 400 mg PO TID [facility] Last Admin: 12/08/18 14:42 Dose: 400 mg Nifedipine (Procardia Xl -) 120 mg PO DAILY [facility] Last Admin: 12/08/18 09:04 Dose: 120 mg Spironolactone (Aldactone -) 50 mg PO BID [facility] Last Admin: 12/08/18 09:04 Dose: 50 mg 58 year old gentleman with history of Hypertension, hyperlipidemia, CAD s/p PCI and stenting, HF with diastolic dysfunction, COPD who presented to the ED with chest pain and noted to have right upper extremity weakness/CVA and hypertensive emergency. 1. Hypertensive emergency 2. 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 hyperlipidemia Renal function essentially stable. No overt electrolyte or acid base disturbance noted. BP is improved today Continue lasix BID, spironolactone BID, Labetalol TID, Hydralazine TID. No IRMA/ ARB given history of angioedema. Neurology and cardiology follow up stable for discharge with outpatient follow up Thank you David Gilmore DO
--- NOTE | 2018-12-08 16:16 | DS ---
Physical Exam: SUBJECTIVE: Patient seen and examined OBJECTIVE: Vital Signs Period Temp Pulse Resp BP Sys/Caal Pulse Ox Last 24 Hr 97.3 F-98.3 F 81-90 20-20 126-160/75-99 96-96 PHYSICAL EXAM GENERAL: The patient is awake, alert, and fully oriented, in no acute distress. HEAD: Normal with no signs of trauma. EYES: PERRL, extraocular movements intact, sclera anicteric, conjunctiva clear. ENT: Ears normal, nares patent, oropharynx clear without exudates, moist mucous membranes. NECK: Trachea midline, full range of motion, supple. LUNGS: Breath sounds equal, clear to auscultation bilaterally, no wheezes, no crackles, no accessory muscle use. HEART: Regular rate and rhythm, S1, S2 without murmur, rub or gallop. ABDOMEN: Soft, nontender, nondistended, normoactive bowel sounds, no guarding, no rebound, no hepatosplenomegaly, no masses. EXTREMITIES: 2+ pulses, warm, well-perfused, no edema. NEUROLOGICAL: Cranial nerves II through XII grossly intact. Normal speech, gait not observed. PSYCH: Normal mood, normal affect. SKIN: Warm, dry, normal turgor, no rashes or lesions noted. LABS Laboratory Results - last 24 hr 12/07/18 12/07/18 12/07/18 16:56 17:05 17:05 WBC RBC Hgb Hct MCV MCH MCHC RDW Plt Count MPV Absolute Neuts (auto) Neutrophils % Lymphocytes % Monocytes % Eosinophils % Basophils % Nucleated RBC % Sodium Potassium Chloride Carbon Dioxide Anion Gap BUN Creatinine Est GFR (CKD-EPI)AfAm Est GFR (CKD-EPI)NonAf POC Glucometer 323 Random Glucose Calcium Total Bilirubin AST ALT Alkaline Phosphatase Total Protein Albumin U Random Total Protein 27.2 H Urine Creatinine 32.0 Protein/Creatinin Ratio 0.9 Opiates Screen Negative Methadone Screen Negative Barbiturate Screen Negative Phencyclidine Screen Negative Ur Amphetamines Screen Negative MDMA (Ecstasy) Screen Negative Benzodiazepines Screen Negative Cocaine Screen Negative U Marijuana (THC) Screen Negative 12/07/18 12/08/18 12/08/18 21:00 06:09 06:10 WBC 9.1 RBC 3.35 L Hgb 10.4 L Hct 32.2 L MCV 96.0 MCH 31.0 MCHC 32.3 RDW 16.3 H Plt Count 426 MPV 7.4 L Absolute Neuts (auto) 6.7 Neutrophils % 73.3 Lymphocytes % 17.1 Monocytes % 7.9 Eosinophils % 1.1 Basophils % 0.6 Nucleated RBC % 0 Sodium Potassium Chloride Carbon Dioxide Anion Gap BUN Creatinine Est GFR (CKD-EPI)AfAm Est GFR (CKD-EPI)NonAf POC Glucometer 349 357 Random Glucose Calcium Total Bilirubin AST ALT Alkaline Phosphatase Total Protein Albumin U Random Total Protein Urine Creatinine Protein/Creatinin Ratio Opiates Screen Methadone Screen Barbiturate Screen Phencyclidine Screen Ur Amphetamines Screen MDMA (Ecstasy) Screen Benzodiazepines Screen Cocaine Screen U Marijuana (THC) Screen 12/08/18 12/08/18 06:10 12:20 WBC RBC Hgb Hct MCV MCH MCHC RDW Plt Count MPV Absolute Neuts (auto) Neutrophils % Lymphocytes % Monocytes % Eosinophils % Basophils % Nucleated RBC % Sodium 136 Potassium 4.2 Chloride 98 Carbon Dioxide 29 Anion Gap 8 BUN 17.9 Creatinine 1.4 H Est GFR (CKD-EPI)AfAm 64.18 Est GFR (CKD-EPI)NonAf 55.38 POC Glucometer 392 Random Glucose 361 H Calcium 8.7 Total Bilirubin 0.6 AST 40 H ALT 79 H Alkaline Phosphatase 161 H Total Protein 6.0 L Albumin 2.8 L U Random Total Protein Urine Creatinine Protein/Creatinin Ratio Opiates Screen Methadone Screen Barbiturate Screen Phencyclidine Screen Ur Amphetamines Screen MDMA (Ecstasy) Screen Benzodiazepines Screen Cocaine Screen U Marijuana (THC) Screen HOSPITAL COURSE: Date of Admission:12/01/18 Date of Discharge: 12/08/18 Minutes to complete discharge: 40 Discharge Summary Problems reviewed: Yes Reason For Visit: CHEST PAINS Condition: Improved - Instructions Diet, Activity, Other Instructions: You were in the hospital because you had taken some illegal drugs (cocaine) which caused you blood pressure to be dangerously high and caused your lungs to be fluid filled. You also had some right sided weakness. While in the hospital you had imaging which included an ultrasound of your carotid arteries which revealed a moderately sized plaque on the right side. You also had an MRI of your brain which showed an old stroke but no new strokes and no bleeds. You stayed in the ICU because your blood pressures were extremely high. We discontinued all of your home medications and started you on new medicines in the hospital. We were able to get your blood pressure down to safe levels. Once your blood pressure was better controlled your weakness resolved and your fluid levels decreased so your breathing improved and the swelling in your legs got better. While in the hospital you also completed a course of antibiotics and saw a GI doctor because you had inflammation of your colon. PLEASE DISCONTINUE ALL OF YOUR HOME MEDICINES AND START THE FOLLOWING: - Lasix 40 mg TWICE PER DAY - Spironolactone 50 mg TWICE PER DAY - Labetolol 400 THREE TIMES PER DAY - Hydralazine 100 mg THREE TIMES PER DAY - ASA 81 mg ONCE per day - Plavix 75 mg ONCE per day - Lipitor 80 mg ONCE at night - Procardia XL 120 mg ONCE per day - Imdur 60 mg once per day - Levemir 30u BID - Januvia 25mg daily - Albuterol nebulizer as needed Please follow up with the following doctors within 1 week of discharge from the hospital: - Dr. Esquivel, your PCP, within 1 week. - Dr. Ro, the supervisor assembly room who saw you in the hospital to follow up on your blood pressure medications, heart failure medications, and other cardiac problems including the plaque in your right carotid artery and the abdominal aortic aneurysm you have. It is very important for you to control your blood pressure carefully. - Dr. Kent, the neurologist who saw you in the hospital to make sure you do not have any residual neurologic problems due to your stroke. follow up with Dr Johnson regarding your aneurysm in abdominal aorta PLEASE AVOID COCAINE USE IT INCREASED YOUR BLOOD PRESSURE TO DANGEROUSLY HIGH LEVELS THAT CAN CAUSE Referrals: Yadiel Kent MD [Staff Physician] - 1 Week Lenny Hernandez MD [Primary Care Provider] - 1 Week Rajeev Johnson MD [Non Staff, Medical] - Nils Ro MD [Staff Physician] - 1 Week Disposition: HOME - Home Medications Comprehensive Discharge Medication List: Ambulatory Orders Hydralazine HCl 100 mg PO TID 08/09/18 Clopidogrel Bisulfate [Plavix] 75 mg PO DAILY 10/19/18 Albuterol 0.083% Nebulizer Jane [Ventolin 0.083% Nebulizer Soln -] 1 amp NEB Q4H #10 amp 11/01/18 Aspirin Coated [Ecotrin -] 81 mg PO DAILY tablet.ec 11/04/18 Insulin (Levemir) [Levemir Vial] 30 units SQ 0700,2200 units 11/04/18 Insulin Sliding Scale [Novolog Vial Sliding Scale -] 1 vial SQ ACHS units 11/04 Sitagliptin Phosphate [Januvia -] 25 mg PO DAILY@0700 #30 tab 11/04/18 Atorvastatin Ca [Lipitor] 80 mg PO HS #30 tablet 12/08/18 Furosemide [Lasix -] 40 mg PO BID@0600,1400 #60 tablet 12/08/18 Isosorbide Mononitrate [Imdur -] 60 mg PO DAILY tab.sr.24h 12/08/18 Labetalol HCl [Normodyne -] 400 mg PO TID #60 tablet 12/08/18 Nifedipine ER [Procardia XL -] 120 mg PO DAILY #60 tab.er.24 12/08/18 Spironolactone [Aldactone -] 50 mg PO BID #120 tablet 12/08/18 This patient is new to me today: No Emergency Visit: Yes ED Registration Date: 12/01/18 Care time: The patient presented to the Emergency Department on the above date and was hospitalized for further evaluation of their emergent condition. Critical Care patient: No - Discharge Referral Referred to [facility] Med P.C.: No ATTENDING PHYSICIAN STATEMENT I saw and evaluated the patient. I reviewed the resident's note and discussed the case with the resident. I agree with the resident's findings and plan as documented. SUBJECTIVE: OBJECTIVE: ASSESSMENT AND PLAN:
--- NOTE | 2018-12-08 16:17 | PN ---
Teaching Attending Note Name of Resident: Dimitrios Rosa ATTENDING PHYSICIAN STATEMENT I saw and evaluated the patient. I reviewed the resident's note and discussed the case with the resident. I agree with the resident's findings and plan as documented. SUBJECTIVE: no cp pr SOB . noHA OBJECTIVE: CV: RRR, 2/6 SM at base Lungs: CTAB Ext: No edema ASSESSMENT AND PLAN: 58 y/o man with h/o HTN, cocaine use, HLP, CAD s/p [place] , chronic diastolic CHF, COPD, nicotine dependence, DM , carotid endarerectomy, with complicationof TIA. , h/o CVA , AAA, angioedema from ACEI, CKD, cocaine abuse, who was admitted and treated for HTN emergency 1- Hyoertensive emergency 2- Possible new stroke 3- Dm 4- AAA 5- Fatty liver plan: - cont HTN meds - resume home levemir and regimen - f/u with renal , card, and PCP and vascular - stressed the importance of avoiding cocaine and co mopliance with meds -- cont asa and plavix above was verbally d/w patient, but he refused to wait fro written instructions . he left before that. meds were sent to pharmacy and a hard copy of instructions will be mailed to him
[2018-12-10 21:30] VITALS: BMI 35.9
== END 2018-12-08 15:58 | disposition home or self-care (01) | DRG 45 ==
LOC: JER 18:38 → JERBED 23:33 → JICU 12-02 02:56 → J4W 12-06 10:21
PROVIDERS: ADMIT Internal Medicine; ATTEND Internal Medicine
DX: I63.9 Cerebral infarction, unspecified (principal); E11.22 Type 2 diabetes mellitus with diabetic chronic kidney disease; K76.0 Fatty (change of) liver, not elsewhere classified; I71.9 Aortic aneurysm of unspecified site, without rupture; I25.10 Atherosclerotic heart disease of native coronary artery without angina pectoris; F14.10 Cocaine abuse, uncomplicated; J44.9 Chronic obstructive pulmonary disease, unspecified; G81.91 Hemiplegia, unspecified affecting right dominant side; I16.1 Hypertensive emergency; R74.0 Nonspecific elevation of levels of transaminase and lactic acid dehydrogenase [LDH]; I65.22 Occlusion and stenosis of left carotid artery; D72.829 Elevated white blood cell count, unspecified; E88.09 Other disorders of plasma-protein metabolism, not elsewhere classified; I51.7 Cardiomegaly; I67.4 Hypertensive encephalopathy; D64.9 Anemia, unspecified; E66.9 Obesity, unspecified; F10.10 Alcohol abuse, uncomplicated; E46 Unspecified protein-calorie malnutrition; I13.0 Hypertensive heart and chronic kidney disease with heart failure and stage 1 through stage 4 chronic kidney disease, or unspecified chronic kidney disease; N17.9 Acute kidney failure, unspecified; N18.3 Chronic kidney disease, stage 3 (moderate); Z98.61 Coronary angioplasty status; I50.32 Chronic diastolic (congestive) heart failure; K52.9 Noninfective gastroenteritis and colitis, unspecified; N20.0 Calculus of kidney; R59.1 Generalized enlarged lymph nodes; E78.5 Hyperlipidemia, unspecified; K21.9 Gastro-esophageal reflux disease without esophagitis; I42.0 Dilated cardiomyopathy; F17.210 Nicotine dependence, cigarettes, uncomplicated; E11.65 Type 2 diabetes mellitus with hyperglycemia; R29.709 NIHSS score 9
CPT/HCPCS: 36415; 70450-TC; 70551-TC; 71045-TC-FY; 71275-TC; 73030-TC-RT-FY; 74177-TC; 76705-TC; 80048; 80053; 80307; 81003; 82550; 82553; 82570; 82962; 83605; 83735; 83880; 84100; 84156; 84484; 85025; 85027; 85610; 87040; 87086; 93005; 93010; 93306-TC; 93880-TC; 94640; 97116-GP; 97161-GP; 99285-25; J1644

== ENCOUNTER 2019-01-02 14:04 | Inpatient (IN) | payer OTHER ==
[2019-01-02] MEDS ORDERED: ALBUTEROL SO4 2.5/IPRATROPIUM 0.5 INH SOL 3 ML VIAL.NEB. NEB ONE ×3 (14:27→16:13)
[2019-01-02] MEDS ORDERED: methylPREDNISolone NA SUCC 125 MG/2 ML VIAL IVPUSH ONE (14:27)
[2019-01-02] MEDS ORDERED: methylPREDNISolone NA SUCC 125 MG/2 ML VIAL ONE (14:37)
--- NOTE | 2019-01-02 14:39 | PDOC ---
History of Present Illness - General Chief Complaint: Shortness of Breath Stated Complaint: SOB Time Seen by Provider: 01/02/19 14:23 - History of Present Illness Initial Comments: Mr. Ernandez is a 58 y/o male with PMH significant for COPD, asthma, AK s/p stents, CVA, HTN, HLD, DM, presenting today with shortness of breath that started yesterday evening around 8pm. Reports that he used his albuterol inhaler and nebulizer at home without relief. Reports that he comes to the hospital every 1-2 months for COPD exacerbation and oxygen therapy. Reports that he has been having a subjective fever and a cough over the past couple of days. Reports that he feels that both of his legs have been swelling over the past couple of days. Denies chest pain, weakness, abdominal pain, nausea/vomiting, urinary symptoms, changes in stool. Past History - Past Medical History Allergies/Adverse Reactions: Allergies Allergy/AdvReac Type Severity Reaction Status Date / Time IRMA Inhibitors Allergy Verified 01/02/19 14:08 Home Medications: Ambulatory Orders Hydralazine HCl 100 mg PO TID 08/09/18 Clopidogrel Bisulfate [Plavix] 75 mg PO DAILY 10/19/18 Albuterol 0.083% Nebulizer Jane [Ventolin 0.083% Nebulizer Soln -] 1 amp NEB Q4H #10 amp 11/01/18 Aspirin Coated [Ecotrin -] 81 mg PO DAILY tablet.ec 11/04/18 Insulin (Levemir) [Levemir Vial] 30 units SQ 0700,2200 units 11/04/18 Insulin Sliding Scale [Novolog Vial Sliding Scale -] 1 vial SQ ACHS units 11/04 Sitagliptin Phosphate [Januvia -] 25 mg PO DAILY@0700 #30 tab 11/04/18 Atorvastatin Ca [Lipitor] 80 mg PO HS #30 tablet 12/08/18 Furosemide [Lasix -] 40 mg PO BID@0600,1400 #60 tablet 12/08/18 Isosorbide Mononitrate [Imdur -] 60 mg PO DAILY tab.sr.24h 12/08/18 Labetalol HCl [Normodyne -] 400 mg PO TID #60 tablet 12/08/18 Nifedipine ER [Procardia XL -] 120 mg PO DAILY #60 tab.er.24 12/08/18 Spironolactone [Aldactone -] 50 mg PO BID #120 tablet 12/08/18 Anemia: No Asthma: Yes Cancer: No Cardiac Disorders: Yes (ACS, CAD - s/p PCI/Stents, [place] X3, non-ischemic Cardiomyopathy,) CVA: Yes (2018) COPD: Yes CHF: Yes (Diastolic CHF) DVT: No Dementia: No Diabetes: Yes GI Disorders: No Disorders: No HTN: Yes Hypercholesterolemia: Yes Kidney Stones: No Liver Disease: No Seizures: No Thyroid Disease: No - Surgical History Abdominal Surgery: No Appendectomy: No Cardiac Surgery: Yes (Carotid endareterectomy) Cholecystectomy: No Lung Surgery: No Neurologic Surgery: No Orthopedic Surgery: Yes (Old injury fractured left ankle x2) - Reproductive History Testicular Surgery: No - Immunization History Immunization Up to Date: Yes - Psycho Social/Smoking Cessation Hx Smoking Status: No Smoking History: Current every day smoker Have you smoked in the past 12 months: No Number of Cigarettes Smoked Daily: 2 If you are a former smoker, when did you quit?: smokes 2 x per week Information on smoking cessation initiated: No 'Breaking Loose' booklet given: 04/13/18 Hx Alcohol Use: Yes Drug/Substance Use Hx: No Substance Use Type: Cocaine Hx Substance Use Treatment: No Respiratory Specific PMHX - Complaint Specific PMHX Hx TB (Tuberculosis): No Review of Systems - Review of Systems Comments:: GENERAL/CONSTITUTIONAL: Reports fever. No weakness._ HEAD, EYES, EARS, NOSE AND THROAT: No change in vision. No change in hearing. No sore throat._ CARDIOVASCULAR: No chest pain. Reports shortness of breath. RESPIRATORY: Reports cough. Denies hemoptysis. GASTROINTESTINAL: No nausea, vomiting, diarrhea or constipation._ GENITOURINARY: No dysuria, frequency, or change in urination._ MUSCULOSKELETAL: Reports bilateral leg swelling. No neck or back pain._ SKIN: No rash_ NEUROLOGIC: No headache, vertigo, loss of consciousness, or change in strength/ sensation._ ENDOCRINE: No increased thirst. No abnormal weight change_ HEMATOLOGIC/LYMPHATIC: No anemia, easy bleeding, or history of blood clots._ ALLERGIC/IMMUNOLOGIC: No hives or skin allergy._ *Physical Exam - Vital Signs Last Vital Signs Temp Pulse Resp BP Pulse Ox 97 F L 108 H 24 H 217/136 H 92 L 01/02/19 14:05 01/02/19 14:05 01/02/19 14:05 01/02/19 14:05 01/02/19 14:05 - Physical Exam Comments: GENERAL: Awake, alert, and oriented to person/place/time, in no acute distress_ HEAD: No signs of trauma, normocephalic, atraumatic _ EYES: PERRLA, EOMI, sclera anicteric, conjunctiva clear_ ENT: Hearing grossly normal, nares patent, oropharynx clear without exudates. No uvular deviation. Moist mucosa_ NECK: Normal ROM, supple, no lymphadenopathy, JVD, or masses_ LUNGS: Diffuse wheezes in lower lung garcia bilaterally HEART: Tachycardia, normal S1 and S2, no murmurs appreciated, peripheral pulses normal and equal bilaterally._ ABDOMEN: Soft, nontender, normoactive bowel sounds. No guarding, no rebound. No masses_ EXTREMITIES: Normal inspection, Normal range of motion, 2+ pitting edema bilaterally. No clubbing or cyanosis_ NEUROLOGICAL: Cranial nerves II through XII grossly intact. Normal speech, normal gait, no focal sensorimotor deficits _ SKIN: Warm, Dry, normal turgor, no rashes or lesions noted_ ED Treatment Course - LABORATORY CBC & Chemistry Diagram: 01/04/19 05:40 01/04/19 05:40 - RADIOLOGY Radiology Studies Ordered: Category Date Time Status CHEST X-RAY PORTABLE* [RAD] Stat Radiology 01/02/19 14:38 Ordered - Medications Given in the ED: ED Medications Discontinued Medications Generic Name Dose Route Start Last Admin Trade Name Freq PRN Reason Stop Dose Admin Albuterol/Ipratropium 2 amp 01/02/19 14:27 01/02/19 14:30 Duoneb - NEB 01/02/19 14:28 2 amp ONCE ONE Administration Medical Decision Making - Medical Decision Making 01/02/19 14:38 58M extensive PMH including COPD, asthma, AK, CVA, DM, HTN, HLD, presenting with shortness of breath that started this morning. Diffuse wheezes in bilateral lower lung garcia. -cbc, cmp, coags, bnp -ekg, trop, cxr -duonebs, solumedrol 01/02/19 1515 EKG shows sinus tachycardia, HR 107, no ST elevation/depression, QTc 469. 01/02/19 1530 POCUS shows bilateral pleural effusion and mildly decreased EF. 01/02/19 16:11 Pt reassessed after 1 duoneb and solumedrol. Continues to have wheezes and difficulty breathing. Tachycardic. -3 duonebs -nitroglycerin SL x3 01/02/19 1700 Labs reviewed. BNP elevated in the 6000's. LFTs elevated. Pt BP continues to be in the 200s after medications and nitro drip. -lasix 40 mg x2 -labetalol 10 mg -hydralazine 10 mg -nitro drip -labetalol 20 mg -RUQ US 01/02/19 17:15 Pt's trop elevated at 0.17. D/w Dr. Lim (cardiology) who recommends starting on a heparin drip 5000 unit bolus and 800 units/hr. Plan to admit to tele. 01/02/19 18:00 D/w hospitalist [employer] who accepts the patient for admission. -restart nitro drip for BP in the 200's 01/02/19 1900 D/w ICU team who accepts the patient for ICU. Discharge - Discharge Information Problems reviewed: Yes Clinical Impression/Diagnosis: Shortness of breath Condition: Stable - Admission Yes - Follow up/Referral - Patient Discharge Instructions - Post Discharge Activity
[2019-01-02] MEDS ORDERED: NITROGLYCERIN SUBLINGUAL 1/150 0.4 MG TAB SL PRN (14:57)
[2019-01-02] MEDS ORDERED: FUROSEMIDE 40 MG/4 ML INJECTABLE VIAL IVPUSH ONE ×2 (14:57→16:48)
[2019-01-02 15:04] LABS: EOS % 0.3 % (0-4.5); HEMATOCRIT 33.5 % (35.4-49); HEMOGLOBIN 10.6 GM/dL (11.7-16.9); LYMPH % 15.6 % (8-40); MCH 30.2 pg (25.7-33.7); MCHC 31.7 g/dl (32.0-35.9); MEAN CELL VOLUME 95.2 fl (80-96); MEAN PLT VOLUME 7.5 fl (7.5-11.1); MONO % 8.3 % (3.8-10.2); NEUT % 74.8 % (42.8-82.8); PLATELET COUNT 295 K/MM3 (134-434); RBC 3.53 M/mm3 (4.00-5.60); RDW 16.7 % (11.9-15.9); WHITE BLOOD COUNT 7.4 K/mm3 (4.0-10.0)
[2019-01-02] MEDS ORDERED: FUROSEMIDE 40 MG/4 ML INJECTABLE VIAL ONE ×2 (15:14→16:50)
[2019-01-02 15:44] LABS: ALBUMIN 2.9 g/dl (3.4-5.0); BILIRUBIN,TOTAL 1.2 mg/dL (0.2-1); BLOOD UREA NITROGEN 23.8 mg/dL (7-18); CALCIUM 8.3 mg/dL (8.5-10.1); CREATININE 1.5 mg/dL (0.55-1.3); POTASSIUM 4.8 mmol/L (3.5-5.1); TOT PROT 6.7 g/dl (6.4-8.2)
[2019-01-02 15:51] LABS: INR 1.25 (0.83-1.09); PROTHROMBIN TIME (PATIENT) 14.8 SEC (9.7-13.0)
[2019-01-02 15:54] LABS: ACTIVATED PTT 24.2 SECONDS (25.2-36.5)
[2019-01-02] MEDS ORDERED: NITROGLYCERIN SUBLINGUAL 1/150 0.4 MG TAB SL ONE (16:06)
[2019-01-02] MEDS ORDERED: NITROGLYCERIN SUBLINGUAL 1/150 0.4 MG TAB ONE (16:13)
[2019-01-02] MEDS: NITROGLYCERIN SUBLINGUAL 1/150 0.4 MG TAB SL SCH ×3 (16:17→16:35)
[2019-01-02] MEDS: ALBUTEROL SO4 2.5/IPRATROPIUM 0.5 INH SOL 3 ML VIAL.NEB. NEB SCH (16:17)
[2019-01-02] MEDS ORDERED: NITROGLYCERIN 25MG/D5W 250ML 25 MG/250 ML ML IVPB ONE (16:57)
--- NOTE | 2019-01-02 16:57 | PDOC ---
Documentation entered by Olga Mcbride SCRIBE, acting as scribe for Beatriz Roldan MD. Beatriz Roldan MD: This documentation has been prepared by the Rae devi Nirvannie, SCRIBE, under my direction and personally reviewed by me in its entirety. I confirm that the documentation accurately reflects all work, treatment, procedures, and medical decision making performed by me. Attending Attestation - Resident Resident Name: Nando Novak - ED Attending Attestation I have performed the following: I have examined & evaluated the patient, The case was reviewed & discussed with the resident, I agree w/resident's findings & plan - HPI HPI: 01/02/19 15:21 The patient is a 58 year old male, with a significant past medical history of HTN, HLD, DM, diastolic CHF, reduced EF, CAD (s/p [place] x3), right carotid stenosis (s/p carotid endarterectomy 07/2018), COPD/asthma, who presents to the emergency department with, He denies any recent fevers, chills, headache or dizziness. He denies any recent nausea, vomit, diarrhea or constipation. He denies any recent chest pain or shortness of breath. He denies any recent dysuria, frequency, urgency or hematuria. Allergies: IRMA inhibitors Past surgical history: Carotid endarterectomy, left ankle ORIF Social History: Smoker (2 cigarettes/week). Cocaine abuse. Primary Care Physician: Dr. Hernandez - Physicial Exam PE: 01/02/19 16:53 Agree with resident exam. Gen: patient is alert, in mild respiratory distress. HEENT: normocephalic, atraumatic. CV: rrr no m/r/g. Pulm: + diffuse wheezes b/l, speaking in full sentences. - Medical Decision Making 01/02/19 16:56 Pt presents to the ED complaining of shortness of breath. + wheezes on exam. Extremely hypertensive on arrival to the ED. Labs consistent with CHF. Started on IV lasix and nitro. Will admit to medicine.
[2019-01-02] MEDS ORDERED: NITROGLYCERIN 25MG/D5W 250ML 25 MG/250 ML ML IVPB SCH (17:00)
[2019-01-02 17:11] LABS: ANISOCYTOSIS 1+; MACROCYTOSIS 1+; PLATELET ESTIMATE NORMAL
[2019-01-02] MEDS ORDERED: LABETALOL HCL 5 MG/1 ML (100MG/20 ML VIAL) IVPUSH ONE ×3 (17:24→18:27)
[2019-01-02] MEDS ORDERED: HEPARIN NA (PORCINE) 5,000 UNITS/ML 1ML VIAL IVPUSH PRN ×2 (17:29)
[2019-01-02] MEDS ORDERED: HEPARIN - 25,000 UNIT in SODIUM CHLORIDE 495 ML IV SCH (17:30)
[2019-01-02] MEDS ORDERED: HEPARIN INFUSION - 25,000 UNITS/500 ML INFUS.BAG IVPB ONE ×2 (17:35→18:12)
[2019-01-02] MEDS ORDERED: hydrALAZINE HCL 20 MG/ML VIAL IVPUSH ONE (18:07)
[2019-01-02] MEDS ORDERED: HEPARIN NA (PORCINE) 5,000 UNITS/ML 1ML VIAL IVPUSH ONE (18:08)
--- NOTE | 2019-01-02 18:11 | HP ---
CHIEF COMPLAINT:Shortness of breath PCP: HISTORY OF PRESENT ILLNESS: 58 year old male, with a significant past medical history of HTN, HLD, DM, diastolic CHF, reduced EF, CAD (s/p MN x3), right carotid stenosis (s/p carotid endarterectomy 07/2018), COPD/asthma, complained of shortness of breath Worsening for the last 2 days. She denied any overt chest pain. Increased exercise tolerance, positive orthopnea, planes of nonproductive cough. ER course was notable for: (1) nitroglycerin drip (2) duonebs (3) heparin drip Recent Travel:no PAST MEDICAL HISTORY: HTN, HLD, DM, diastolic CHF, reduced EF, CAD (s/p MN x3), right carotid stenosis (s/p carotid endarterectomy 07/2018), COPD/asthma, PAST SURGICAL HISTORY:carotid endarterectomy 07/2018 Social History: Smoking: yes Alcohol: no Drugs: no Allergies IRMA Inhibitors Allergy (Verified 01/02/19 14:08) HOME MEDICATIONS: Home Medications Medication Instructions Recorded Hydralazine HCl 100 mg PO TID 08/09/18 Clopidogrel Bisulfate [Plavix] 75 mg PO DAILY 10/19/18 Albuterol 0.083% Nebulizer Jane 1 amp NEB Q4H #10 amp 11/01/18 [Ventolin 0.083% Nebulizer Soln -] Aspirin Coated [Ecotrin -] 81 mg PO DAILY tablet.ec 11/04/18 Insulin (Levemir) [Levemir Vial] 30 units SQ 0700,2200 units 11/04/18 Insulin Sliding Scale [Novolog 1 vial SQ ACHS units 11/04/18 Vial Sliding Scale -] Sitagliptin Phosphate [Januvia -] 25 mg PO DAILY@0700 #30 tab 11/04/18 Atorvastatin Ca [Lipitor] 80 mg PO HS #30 tablet 12/08/18 Furosemide [Lasix -] 40 mg PO BID@0600,1400 #60 tablet 12/08/18 Isosorbide Mononitrate [Imdur -] 60 mg PO DAILY tab.sr.24h 12/08/18 Labetalol HCl [Normodyne -] 400 mg PO TID #60 tablet 12/08/18 Nifedipine ER [Procardia XL -] 120 mg PO DAILY #60 tab.er.24 12/08/18 Spironolactone [Aldactone -] 50 mg PO BID #120 tablet 12/08/18 REVIEW OF SYSTEMS CONSTITUTIONAL: Absent: fever, chills, diaphoresis, generalized weakness, malaise, loss of appetite, weight change HEENT: Absent: rhinorrhea, nasal congestion, throat pain, throat swelling, difficulty swallowing, mouth swelling, ear pain, eye pain, visual changes CARDIOVASCULAR: Absent: chest pain, syncope, palpitations, irregular heart rate, lightheadedness , present- peripheral edema RESPIRATORY: Absent: stridor, hemoptysis present- shortness of breath, dyspnea with exertion,cough, orthopnea, wheezing, GASTROINTESTINAL: Absent: abdominal pain, abdominal distension, nausea, vomiting, diarrhea, constipation, melena, hematochezia GENITOURINARY: Absent: dysuria, frequency, urgency, hesitancy, hematuria, flank pain, genital pain MUSCULOSKELETAL: Absent: myalgia, arthralgia, joint swelling, back pain, neck pain SKIN: Absent: rash, itching, pallor HEMATOLOGIC/IMMUNOLOGIC: Absent: easy bleeding, easy bruising, lymphadenopathy, frequent infections ENDOCRINE: Absent: unexplained weight gain, unexplained weight loss, heat intolerance, cold intolerance NEUROLOGIC: Absent: headache, focal weakness or paresthesias, dizziness, unsteady gait, seizure, mental status changes, bladder or bowel incontinence PSYCHIATRIC: Absent: anxiety, depression, suicidal or homicidal ideation, hallucinations. PHYSICAL EXAMINATION Vital Signs - 24 hr 01/02/19 01/02/19 01/02/19 14:05 14:20 15:25 Temperature 97 F L Pulse Rate 108 H Pulse Rate [ 107 H Apical] Respiratory 24 H 35 H Rate Blood Pressure 217/136 H Blood Pressure 200/129 H [Right Arm] O2 Sat by Pulse 92 L 100 100 Oximetry (%) 01/02/19 01/02/19 16:15 16:30 Temperature Pulse Rate Pulse Rate [ 117 H 107 H Apical] Respiratory 29 H 31 H Rate Blood Pressure Blood Pressure 231/142 H 218/141 H [Right Arm] O2 Sat by Pulse 100 Oximetry (%) GENERAL: Awake, alert, and fully oriented, in no acute distress. HEAD: Normal with no signs of trauma. EYES: Pupils equal, round and reactive to light, extraocular movements intact, sclera anicteric, conjunctiva clear. No lid lag. EARS, NOSE, THROAT: Ears normal, nares patent, oropharynx clear without exudates. Moist mucous membranes. NECK: Normal range of motion, supple without lymphadenopathy, JVD, or masses. LUNGS:Bilateral wheezing appreciated, bilateral basilar crackles appreciated on lung auscultation HEART: Regular rate and rhythm, normal S1 and S2 without murmur, rub or gallop. ABDOMEN: Soft, nontender, not distended, normoactive bowel sounds, no guarding, Obese, ventral hernia MUSCULOSKELETAL: Normal range of motion at all joints. No bony deformities or tenderness. No CVA tenderness. UPPER EXTREMITIES: 2+ pulses, warm, well-perfused. No cyanosis. No clubbing. No peripheral edema. LOWER EXTREMITIES:2+ pitting edema bilaterally NEUROLOGICAL: Cranial nerves II-XII intact. Normal speech. Normal gait. PSYCHIATRIC: Cooperative. Good eye contact. Appropriate mood and affect. SKIN: Warm, dry, normal turgor, no rashes or lesions noted, normal capillary refill. Laboratory Results - last 24 hr 01/02/19 01/02/19 01/02/19 14:53 14:53 14:53 WBC 7.4 RBC 3.53 L Hgb 10.6 L Hct 33.5 L MCV 95.2 MCH 30.2 MCHC 31.7 L RDW 16.7 H Plt Count 295 D MPV 7.5 Absolute Neuts (auto) 5.6 Total Counted 100 Neutrophils % 74.8 Neutrophils % (Manual) 66.3 Band Neutrophils % 0.0 Lymphocytes % 15.6 Lymphocytes % (Manual) 24.5 D Monocytes % 8.3 Monocytes % (Manual) 7 Eosinophils % 0.3 Eosinophils % (Manual) 1.0 Basophils % 1.0 Basophils % (Manual) 0.0 Myelocytes % (Man) 0 Promyelocytes % (Man) 0 Blast Cells % (Manual) 0 Nucleated RBC % 0 Metamyelocytes 0 Hypochromia 0 Platelet Estimate Normal Platelet Comment Present Polychromasia 1+ Poikilocytosis 1+ Anisocytosis 1+ Microcytosis 1+ Macrocytosis 1+ Spherocytes 1+ PT with INR INR PTT (Actin FS) Sodium 134 L Potassium 4.8 Chloride 102 Carbon Dioxide 22 Anion Gap 10 BUN 23.8 H Creatinine 1.5 H Est GFR (CKD-EPI)AfAm 59.05 Est GFR (CKD-EPI)NonAf 50.95 Random Glucose 224 H Lactic Acid Calcium 8.3 L Total Bilirubin 1.2 H AST 279 H ALT 225 H Alkaline Phosphatase 252 H Creatine Kinase 194 Creatine Kinase Index 0.8 CK-MB (CK-2) 1.6 Troponin I 0.17 H B-Natriuretic Peptide 6675.0 H Total Protein 6.7 Albumin 2.9 L Lipase 01/02/19 01/02/19 01/02/19 14:53 14:53 17:30 WBC RBC Hgb Hct MCV MCH MCHC RDW Plt Count MPV Absolute Neuts (auto) Total Counted Neutrophils % Neutrophils % (Manual) Band Neutrophils % Lymphocytes % Lymphocytes % (Manual) Monocytes % Monocytes % (Manual) Eosinophils % Eosinophils % (Manual) Basophils % Basophils % (Manual) Myelocytes % (Man) Promyelocytes % (Man) Blast Cells % (Manual) Nucleated RBC % Metamyelocytes Hypochromia Platelet Estimate Platelet Comment Polychromasia Poikilocytosis Anisocytosis Microcytosis Macrocytosis Spherocytes PT with INR 14.80 H INR 1.25 H PTT (Actin FS) 24.2 L Sodium Potassium Chloride Carbon Dioxide Anion Gap BUN Creatinine Est GFR (CKD-EPI)AfAm Est GFR (CKD-EPI)NonAf Random Glucose Lactic Acid 2.0 Calcium Total Bilirubin AST ALT Alkaline Phosphatase Creatine Kinase Creatine Kinase Index CK-MB (CK-2) Troponin I B-Natriuretic Peptide Total Protein Albumin Lipase 155 Imaging reviewed EKG showed sinus tachycardia and no ischemic changes ASSESSMENT/PLAN: Critically ill 58-year-old male with hypertensive emergency, Extremely elevated blood pressure with minimal response to labetalol, hydralazine, furosemide IV pushes. with clinical symptoms of CHF exacerbation. Bilateral lower extremity edema, orthopnea, JVD. Suspect possible NSTEMI in this case as troponin is markedly elevated and patient symptomatic with significant shortness of breath. #Admit to ICU Maintained on nitroglycerin drip Monitor vital signs every 4 hours Trend troponin Echo I's and O's Daily weights Furosemide 40 mg IV twice daily Cardiology evaluation Salt restriction Free water restriction Heparin drip Aspirin Plavix loading dose then maintenance therapy Statin #COPD exacerbation Duo nebs every 6 hours Methylprednisolone 40 mg IV every 8 Azithromycin 500 mg IV daily Supplemental oxygen via nasal cannula if needed Smoking cessation advised Urine toxicology scree #Uncontrolled diabetes mellitus Levemir 10 units nightly NovoLog sliding scale 35 minutes spent on this critically ill patient Visit type - Emergency Visit Emergency Visit: Yes ED Registration Date: 01/02/19 Care time: The patient presented to the Emergency Department on the above date and was hospitalized for further evaluation of their emergent condition. - New Patient This patient is new to me today: Yes Date on this admission: 01/02/19 - Critical Care Critical Care patient: Yes Total Critical Care Time (in minutes): 35 Critical Care Statement: The care of this patient involved high complexity decision making to prevent further life threatening deterioration of the patient 's condition and/or to evaluate & treat vital organ system(s) failure or risk of failure.
[2019-01-02] MEDS ORDERED: HEPARIN NA (PORCINE) 5,000 UNITS/ML 1ML VIAL ONE (18:12)
[2019-01-02] MEDS ORDERED: hydrALAZINE HCL 20 MG/ML VIAL ONE (18:14)
[2019-01-02] MEDS ORDERED: LABETALOL HCL 5 MG/1 ML (200MG/40ML VIAL) IVPB ONE (18:57)
[2019-01-02] MEDS ORDERED: LABETALOL HCL INJECTION 1,000 MG in SODIUM CHLORIDE 800 ML IV SCH (20:15)
[2019-01-02] MEDS ORDERED: ASPIRIN 325 MG TABLET PO ONE (20:24)
[2019-01-02] MEDS ORDERED: CLOPIDOGREL BISULFATE 300 MG TABLET PO ONE (20:24)
--- NOTE | 2019-01-02 20:51 | CONSULT ---
Consultation: REQUESTING PROVIDER: CONSULT REQUEST: ICU HISTORY OF PRESENT ILLNESS: Tank Ernandez is a 58 y/o male with PMHx COPD, asthma, CAD s/p MIx3 and stents , nicotine dependence, AAA, CKD, R carotid stenosis s/p carotid endarterectomy w TIA complication 07/2018, HFrEF, HTN, HLD, DM, cocaine use non compliant on meds presenting w SOB. Started yesterday evening w associated non productive cough. Also complains of BLE edema, AB distension, orthopnea. Used albuterol inhaler and nebulizer w/o relief. Denies fever, headache, vision change, chest pain, AB pain, urinary/bowel movement changes. In ED, given duonebs, lasix, labetalol, solumedrol, nitro drip did not lower BP. Cards consulted for elevated trop, want to r/o ACS, started heparin drip. Pt seen monthly for refractory hypertensive emergency d/t medication non compliance requiring ICU admission. Last month, he was started on cardene drip, hydralazine po, and procardia xl for his HTN. US of carotids revealed small to moderate size soft plaque at the right common carotid bifurcation/bulb without evidence of significant stenosis. The patient was also treated with antibiotics for a few days 2/ to developing diverticulitis during his stay REVIEW OF SYSTEMS: CONSTITUTIONAL: Absent: fever, chills, diaphoresis, generalized weakness, malaise HEENT: Absent: rhinorrhea, nasal congestion, throat pain, visual changes CARDIOVASCULAR: + BLE edema Absent: chest pain, syncope, palpitations, irregular heart rate, lightheadedness RESPIRATORY: + cough, SOB Absent: wheezing, stridor, hemoptysis GASTROINTESTINAL: + AB distension Absent: abdominal pain, nausea, vomiting, diarrhea, constipation GENITOURINARY: Absent: dysuria, frequency, urgency, hesitancy, hematuria MUSCULOSKELETAL: Absent: myalgia, arthralgia, joint swelling SKIN: Absent: rash, itching HEMATOLOGIC/IMMUNOLOGIC: Absent: easy bleeding, easy bruising ENDOCRINE: Absent:heat intolerance, cold intolerance NEUROLOGIC: Absent: headache, focal weakness or paresthesias, dizziness, unsteady gait, seizure PSYCHIATRIC: Absent: anxiety, depression PHYSICAL EXAMINATION Vital Signs - 24 hr 01/02/19 01/02/19 01/02/19 14:05 14:20 15:25 Temperature 97 F L Pulse Rate 108 H Pulse Rate [ 107 H Apical] Respiratory 24 H 35 H Rate Blood Pressure 217/136 H Blood Pressure 200/129 H [Right Arm] O2 Sat by Pulse 92 L 100 100 Oximetry (%) 01/02/19 01/02/19 01/02/19 16:15 16:30 19:04 Temperature Pulse Rate Pulse Rate [ 117 H 107 H 94 H Apical] Respiratory 29 H 31 H Rate Blood Pressure Blood Pressure 231/142 H 218/141 H 204/117 H [Right Arm] O2 Sat by Pulse 100 Oximetry (%) 01/02/19 19:25 Temperature 97.9 F Pulse Rate Pulse Rate [ 86 Apical] Respiratory 26 H Rate Blood Pressure Blood Pressure 165/109 H [Right Arm] O2 Sat by Pulse 98 Oximetry (%) GENERAL: Awake, alert, and fully oriented, in no acute distress. HEAD: Normal with no signs of trauma. EYES: Pupils equal, round and reactive to light, extraocular movements intact, conjunctiva clear. LUNGS: Coarse breath sounds with crackles braulio. Intermittent wheezing. No accessory muscle use. HEART: Regular rate and rhythm, distant S1 and S2 without murmur, rub or gallop. ABDOMEN: Distended AB with epigastric/periumbilical midline hernia. Soft, nontender, normoactive bowel sounds, no guarding, no rebound, no masses. No hepatomegaly or splenomegaly. EXTREMITIES: warm, well-perfused. No cyanosis. Cap refill <2 seconds. LOWER EXTREMITIES: 2+ pitting edema BLE to knees. warm, well-perfused. No calf tenderness. NEUROLOGICAL: AOx3. Normal speech. PSYCHIATRIC: Cooperative. Good eye contact. Appropriate mood and affect. SKIN: Warm, no rashes or lesions noted. Laboratory Results - last 24 hr 01/02/19 01/02/19 01/02/19 14:53 14:53 14:53 WBC 7.4 RBC 3.53 L Hgb 10.6 L Hct 33.5 L MCV 95.2 MCH 30.2 MCHC 31.7 L RDW 16.7 H Plt Count 295 D MPV 7.5 Absolute Neuts (auto) 5.6 Total Counted 100 Neutrophils % 74.8 Neutrophils % (Manual) 66.3 Band Neutrophils % 0.0 Lymphocytes % 15.6 Lymphocytes % (Manual) 24.5 D Monocytes % 8.3 Monocytes % (Manual) 7 Eosinophils % 0.3 Eosinophils % (Manual) 1.0 Basophils % 1.0 Basophils % (Manual) 0.0 Myelocytes % (Man) 0 Promyelocytes % (Man) 0 Blast Cells % (Manual) 0 Nucleated RBC % 0 Metamyelocytes 0 Hypochromia 0 Platelet Estimate Normal Platelet Comment Present Polychromasia 1+ Poikilocytosis 1+ Anisocytosis 1+ Microcytosis 1+ Macrocytosis 1+ Spherocytes 1+ PT with INR INR PTT (Actin FS) Sodium 134 L Potassium 4.8 Chloride 102 Carbon Dioxide 22 Anion Gap 10 BUN 23.8 H Creatinine 1.5 H Est GFR (CKD-EPI)AfAm 59.05 Est GFR (CKD-EPI)NonAf 50.95 Random Glucose 224 H Lactic Acid Calcium 8.3 L Total Bilirubin 1.2 H AST 279 H ALT 225 H Alkaline Phosphatase 252 H Creatine Kinase 194 Creatine Kinase Index 0.8 CK-MB (CK-2) 1.6 Troponin I 0.17 H B-Natriuretic Peptide 6675.0 H Total Protein 6.7 Albumin 2.9 L Lipase 01/02/19 01/02/19 01/02/19 14:53 14:53 17:30 WBC RBC Hgb Hct MCV MCH MCHC RDW Plt Count MPV Absolute Neuts (auto) Total Counted Neutrophils % Neutrophils % (Manual) Band Neutrophils % Lymphocytes % Lymphocytes % (Manual) Monocytes % Monocytes % (Manual) Eosinophils % Eosinophils % (Manual) Basophils % Basophils % (Manual) Myelocytes % (Man) Promyelocytes % (Man) Blast Cells % (Manual) Nucleated RBC % Metamyelocytes Hypochromia Platelet Estimate Platelet Comment Polychromasia Poikilocytosis Anisocytosis Microcytosis Macrocytosis Spherocytes PT with INR 14.80 H INR 1.25 H PTT (Actin FS) 24.2 L Sodium Potassium Chloride Carbon Dioxide Anion Gap BUN Creatinine Est GFR (CKD-EPI)AfAm Est GFR (CKD-EPI)NonAf Random Glucose Lactic Acid 2.0 Calcium Total Bilirubin AST ALT Alkaline Phosphatase Creatine Kinase Creatine Kinase Index CK-MB (CK-2) Troponin I B-Natriuretic Peptide Total Protein Albumin Lipase 155 Active Medications Generic Name Dose Route Start Last Admin Trade Name Freq PRN Reason Stop Dose Admin Albuterol/Ipratropium 1 amp 01/02/19 16:15 01/02/19 16:17 Duoneb - NEB 01/03/19 16:16 1 amp ONCE PUSHPA Administration Heparin Sodium (Porcine) 1,000 unit 01/02/19 17:29 Heparin - IVPUSH PRN PRN Heparin Heparin Sodium (Porcine) 5,000 unit 01/02/19 17:29 Heparin - IVPUSH PRN PRN Heparin Heparin Sodium (Porcine) 25, 500 mls @ 16 mls/hr 01/02/19 17:30 01/02/19 17: 31 000 unit/ Sodium Chloride IV 800 unit/hr TITR PUSHPA 16 mls/hr Administration Protocol 800 UNIT/HR Nitroglycerin/Dextrose 50 mg in 250 mls @ 3 mls/hr 01/02/19 20:15 Nitroglycerin 50mg/D5w 250ml IVPB TITR PUSHPA 10 MCG/MIN ASSESSMENT/PLAN: Tank Ernandez is a 58 y/o male with PMHx COPD, asthma, CAD s/p MIx3 and stents , nicotine dependence, AAA, CKD, R carotid stenosis s/p carotid endarterectomy w TIA complication 07/2018, HFrEF, HTN, HLD, DM, cocaine use non compliant on meds presenting w SOB, peripheral edema, and HTN d/t CHF exacerbation and HTN emergency. Cards - hypertensive emergency, CHF exacerbation d/t med noncompliance - trop 0.17, trend - started nitro drip for HTN - continue home aspirin, lipitor, plavix - pending echo - appreciate cards recs Pulm - hx asthma, COPD - CXR 01/02 showed cardiomegaly w braulio congestion - duonebs GI - elevated LFTs - pending RUQ US - Na diet - hx CKD (Cr baseline 1.3) - Cr 1.5, monitor - I/O Neuro - hx brain infarcts - AOx3, no active issues - pending Utox Endo - hx DM - ISS ID - afebrile, WBC wnl, no active issues PPX - heparin drip - no GI ppx FEN - no fluids - hypoNa - Na diet Dispo: ICU Visit type - Emergency Visit Emergency Visit: Yes ED Registration Date: 01/02/19 Care time: The patient presented to the Emergency Department on the above date and was hospitalized for further evaluation of their emergent condition. - New Patient This patient is new to me today: Yes Date on this admission: 01/02/19 - Critical Care Critical Care patient: Yes Total Critical Care Time (in minutes): 37 Critical Care Statement: The care of this patient involved high complexity decision making to prevent further life threatening deterioration of the patient 's condition and/or to evaluate & treat vital organ system(s) failure or risk of failure. ATTENDING PHYSICIAN STATEMENT I saw and evaluated the patient. I reviewed the resident's note and discussed the case with the resident. I agree with the resident's findings and plan as documented. SUBJECTIVE: OBJECTIVE: ASSESSMENT AND PLAN:
[2019-01-02] MEDS ORDERED: CLOPIDOGREL BISULFATE 300 MG TABLET ONE (21:00)
[2019-01-02] MEDS ORDERED: ASPIRIN 81 MG CHEWABLE TABLETS ONE (21:00)
[2019-01-02] MEDS: NITROGLYCERIN 50MG/D5W 250ML 50 MG/250 ML ML IVPB SCH (21:55)
[2019-01-02] MEDS ORDERED: ATORVASTATIN CA 80 MG TABLET (FP) ONE (22:43)
[2019-01-02] MEDS: ATORVASTATIN CA 80 MG TABLET (FP) PO SCH (22:59)
[2019-01-02] MEDS: INSULIN SLIDING SCALE (NOVOLOG) 1 VIAL SQ SCH (23:21)
[2019-01-03 01:46] VITALS: BMI 33.0
[2019-01-03] MEDS: INSULIN SLIDING SCALE (NOVOLOG) 1 VIAL SQ SCH ×4 (06:40→23:12)
[2019-01-03 07:43] LABS: BASO % 0.8 % (0-2.0); HEMATOCRIT 30.2 % (35.4-49); HEMOGLOBIN 9.8 GM/dL (11.7-16.9); LYMPH % 17.3 % (8-40); MCH 30.4 pg (25.7-33.7); MCHC 32.4 g/dl (32.0-35.9); MEAN CELL VOLUME 93.8 fl (80-96); MEAN PLT VOLUME 7.2 fl (7.5-11.1); MONO % 9.5 % (3.8-10.2); NEUT % 72.4 % (42.8-82.8); PLATELET COUNT 279 K/MM3 (134-434); RBC 3.22 M/mm3 (4.00-5.60); RDW 16.6 % (11.9-15.9); WHITE BLOOD COUNT 5.7 K/mm3 (4.0-10.0)
--- NOTE | 2019-01-03 07:54 | PN ---
Progress Note, Physician Chief Complaint: Pt in ICU with Hypertensive urgency-started on a Ngt drip. States he's very tired but no other complaints History of Present Illness: 58 year old male, with a significant past medical history of HTN, HLD, DM, diastolic CHF, reduced EF, CAD (s/p [place] x3), right carotid stenosis (s/p carotid endarterectomy 07/2018), COPD/asthma, complained of shortness of breath Worsening for the last 2 days. She denied any overt chest pain. Increased exercise tolerance, positive orthopnea, planes of nonproductive cough. ER course was notable for: (1) nitroglycerin drip (2) duonebs (3) heparin drip - Current Medication List Current Medications: Active Medications Albuterol/Ipratropium (Duoneb -) 1 amp NEB ONCE [facility] Stop: 01/03/19 16:16 Last Admin: 01/02/19 16:17 Dose: 1 amp Aspirin (Ecotrin -) 81 mg PO DAILY [facility] Atorvastatin Calcium (Lipitor -) 80 mg PO HS [facility] Last Admin: 01/02/19 22:59 Dose: 80 mg Clopidogrel Bisulfate (Plavix -) 75 mg PO DAILY [facility] Heparin Sodium (Porcine) (Heparin -) 1,000 unit IVPUSH PRN PRN PRN Reason: Heparin Heparin Sodium (Porcine) (Heparin -) 5,000 unit IVPUSH PRN PRN PRN Reason: Heparin Last Admin: 01/03/19 02:15 Dose: 5,000 unit Heparin Sodium (Porcine) 25, (000 unit/ Sodium Chloride) 500 mls @ 16 mls/hr IV TITR [facility]USH[facility]; Protocol Last Titration: 01/03/19 02:15 Dose: 950 unit/hr, 19 mls/hr Nitroglycerin/Dextrose (Nitroglycerin 50mg/D5w 250ml) 50 mg in 250 mls @ 3 mls/ hr IVPB TITR [facility] Last Titration: 01/03/19 04:00 Dose: 50 mcg/min, 15 mls/hr Insulin Aspart (Novolog Vial Sliding Scale -) 1 vial SQ ACHS [facility]; Protocol Last Admin: 01/03/19 06:40 Dose: 12 units Insulin Detemir (Levemir Vial) 30 units SQ BID [facility] - Objective Vital Signs: Vital Signs Temperature 98.6 F 01/03/19 06:00 Pulse Rate 86 01/03/19 07:00 Respiratory Rate 16 01/03/19 07:00 Blood Pressure 167/110 H 01/03/19 07:00 O2 Sat by Pulse Oximetry (%) 96 01/03/19 02:00 Constitutional: Yes: Well Nourished, No Distress, Calm Eyes: Yes: WNL, Conjunctiva Clear, EOM Intact HENT: Yes: WNL, Atraumatic, Normocephalic Neck: Yes: WNL, Supple, Trachea Midline Cardiovascular: Yes: WNL, Regular Rate and Rhythm Respiratory: Yes: WNL, Regular, CTA Bilaterally, Diminished (at bases), Rales ( scattered BL) Gastrointestinal: Yes: WNL, Normal Bowel Sounds ...Rectal Exam: Yes: Deferred Genitourinary: Yes: WNL Breast(s): Yes: WNL Musculoskeletal: Yes: WNL Extremities: Yes: WNL Edema: Yes Edema: LLE: 2+, RLE: 2+ Peripheral Pulses WNL: Yes Peripheral Pulses: Left Radial: 2+, Right Radial: 2+, Left Doralis Pedis: 2+, Right Dorsalis Pedis: 2+, Left Femoral: 2+, Right Femoral: 2+ Integumentary: Yes: WNL Neurological: Yes: WNL, Alert, Oriented ...Motor Strength: WNL Psychiatric: Yes: WNL Additional Findings/Remarks: GENERAL: Awake, alert, and fully oriented, in no acute distress. HEAD: Normal with no signs of trauma. EYES: Pupils equal, round and reactive to light, extraocular movements intact, sclera anicteric, conjunctiva clear. No lid lag. EARS, NOSE, THROAT: Ears normal, nares patent, oropharynx clear without exudates. Moist mucous membranes. NECK: Normal range of motion, supple without lymphadenopathy, JVD, or masses. LUNGS:Bilateral wheezing appreciated, bilateral basilar crackles appreciated on lung auscultation HEART: Regular rate and rhythm, normal S1 and S2 without murmur, rub or gallop. ABDOMEN: Soft, nontender, not distended, normoactive bowel sounds, no guarding, Obese, ventral hernia MUSCULOSKELETAL: Normal range of motion at all joints. No bony deformities or tenderness. No CVA tenderness. UPPER EXTREMITIES: 2+ pulses, warm, well-perfused. No cyanosis. No clubbing. No peripheral edema. LOWER EXTREMITIES:2+ pitting edema bilaterally NEUROLOGICAL: Cranial nerves II-XII intact. Normal speech. Normal gait. PSYCHIATRIC: Cooperative. Good eye contact. Appropriate mood and affect. SKIN: Warm, dry, normal turgor, no rashes or lesions noted, normal capillary refill. Labs: INR, PTT INR 1.25 (0.83-1.09) H 01/02/19 14:53 Problem List - Problems (1) Diastolic CHF Assessment/Plan: elevated BNP, greater than previous admissions. Likely in the setting of medication non compliance and uncontrolled hypertension. c/w lasix, spironolactone, coreq, procardia and hydralazine. Monitor in ICU BP improved with restart og home meds-wean Ntg to off Code(s): I50.30 - UNSPECIFIED DIASTOLIC (CONGESTIVE) HEART FAILURE (2) Carotid stenosis Assessment/Plan: R carotid stenosis s/p carotid endarterectomy w TIA complication 07/2018 poor compliance with medications and diet Code(s): I65.29 - OCCLUSION AND STENOSIS OF UNSPECIFIED CAROTID ARTERY (3) CAD (coronary artery disease) Code(s): I25.10 - ATHSCL HEART DISEASE OF [place] CORONARY ARTERY W/O ANG PCTRS Qualifiers: Coronary Disease-Associated Artery/Lesion type: [place] artery [place] vs. transplanted heart: [place] heart Associated angina: without angina Qualified Code(s): I25.10 - Atherosclerotic heart disease of [place] coronary artery without angina pectoris (4) Diabetes Assessment/Plan: BGM high 400s poor compliance with diet c/w BGM ac/Qhs with novolog sliding scale-increasing scale levemir started yesterday @ 30u. Will increase to 40u BID-dose on discharge last admission pt has been referred to endocriniology on prior admissions and there is not follow up or compliance Code(s): E11.9 - TYPE 2 DIABETES MELLITUS WITHOUT COMPLICATIONS Qualifiers: Diabetes mellitus type: type 2 (5) HTN (hypertension) Code(s): I10 - ESSENTIAL (PRIMARY) HYPERTENSION Qualifiers: Hypertension type: essential hypertension Qualified Code(s): I10 - Essential (primary) hypertension (6) History of myocardial infarction Assessment/Plan: elevated trops most liekly r/t demand ischemia from uncontrolled httn c/w plavix c/w asa cardiology consultation appreciated Code(s): I25.2 - OLD MYOCARDIAL INFARCTION (7) Hypertensive emergency Assessment/Plan: poor compliance with medication pt stated he stopped taking his meds for a few days restart home antihypertensives-procardia,hydralazine,labetolol, imdur wean Ntg to off medication counseling Code(s): I10 - ESSENTIAL (PRIMARY) HYPERTENSION (8) Prophylactic measure Assessment/Plan: FEN low sodium/diabetic diet no additional IVF needed monitor electrolytes DVT heparin gtt stopped Dispo requires ICU monitoring full code discharge planning Code(s): Z29.9 - ENCOUNTER FOR PROPHYLACTIC MEASURES, UNSPECIFIED (9) COPD (chronic obstructive pulmonary disease) Code(s): J44.9 - CHRONIC OBSTRUCTIVE PULMONARY DISEASE, UNSPECIFIED Qualifiers: COPD type: unspecified COPD Qualified Code(s): J44.9 - Chronic obstructive pulmonary disease, unspecified (10) COPD exacerbation Assessment/Plan: CXR 01/02 showed cardiomegaly with BL congestion c/w duonebs Code(s): J44.1 - CHRONIC OBSTRUCTIVE PULMONARY DISEASE W (ACUTE) EXACERBATION Visit type - Emergency Visit Emergency Visit: Yes ED Registration Date: 01/02/19 Care time: The patient presented to the Emergency Department on the above date and was hospitalized for further evaluation of their emergent condition. - New Patient This patient is new to me today: Yes Date on this admission: 01/03/19 - Critical Care Critical Care patient: Yes Total Critical Care Time (in minutes): 55 Critical Care Statement: The care of this patient involved high complexity decision making to prevent further life threatening deterioration of the patient 's condition and/or to evaluate & treat vital organ system(s) failure or risk of failure. - Discharge Referral Referred to [facility] Med [facility].C.: No
[2019-01-03 08:36] LABS: BLOOD UREA NITROGEN 32.8 mg/dL (7-18); CALCIUM 8.2 mg/dL (8.5-10.1); CREATININE 1.6 mg/dL (0.55-1.3); MAGNESIUM 1.9 mg/dL (1.8-2.4); POTASSIUM 3.7 mmol/L (3.5-5.1)
[2019-01-03] MEDS ORDERED: INSULIN (LEVEMIR) 100 UNITS/ML UNITS SQ SCH ×3 (10:00→22:00)
--- NOTE | 2019-01-03 10:08 | EKG ---
Test Reason : Blood Pressure : / mmHG Vent. Rate : 107 BPM Atrial Rate : 107 BPM P-R Int : 164 ms QRS Dur : 094 ms QT Int : 352 ms P-R-T Axes : 064 020 125 degrees QTc Int : 469 ms SINUS TACHYCARDIA WITH OCCASIONAL PREMATURE VENTRICULAR COMPLEXES POSSIBLE LEFT ATRIAL ENLARGEMENT ABNORMAL ECG WHEN COMPARED WITH ECG OF 02-DEC-2018 17:01, T WAVE VARIATION Confirmed by ALLEN CESPEDES MD ([id number]) on 01/03/2019 10:07:53 AM Referred By: Confirmed By:ALLEN CESPEDES MD
[2019-01-03] MEDS ORDERED: PT OWN MED DRAWER 7, Y5N ONE (10:12)
[2019-01-03] MEDS: CLOPIDOGREL BISULFATE 75 MG TABLET (FP) PO SCH (10:20)
[2019-01-03] MEDS: ASPIRIN COATED 81 MG TABLET.EC PO SCH (10:20)
--- NOTE | 2019-01-03 11:19 | PN ---
Teaching Attending Note Name of Resident: Jack Matson ATTENDING PHYSICIAN STATEMENT I saw and evaluated the patient. I reviewed the resident's note and discussed the case with the resident. I agree with the resident's findings and plan as documented. SUBJECTIVE: Pt seen and examined in the ICU. Remains on nitro gtt. Still some shortness of breath. Denies chest pain. OBJECTIVE: Vital Signs Period Temp Pulse Resp BP Sys/Caal Pulse Ox Last 24 Hr 97 F-98.6 F 78-117 15-35 155-231/102-142 92-100 Intake & Output 12/31/18 01/01/19 01/02/19 01/03/19 23:59 23:59 23:59 23:59 Intake Total 428 Output Total 1950 350 Balance -1950 78 Weight 107.048 kg 107.4 kg Gen: NAD at rest Heart: RRR Lung: decreased breath sounds at the bases Abd: soft, nontender Ext: no edema CBC, BMP 01/03/19 07:30 01/03/19 07:30 Active Medications Albuterol/Ipratropium (Duoneb -) 1 amp NEB ONCE [facility] Stop: 01/03/19 16:16 Last Admin: 01/02/19 16:17 Dose: 1 amp Aspirin (Ecotrin -) 81 mg PO DAILY [facility] Last Admin: 01/03/19 10:20 Dose: 81 mg Atorvastatin Calcium (Lipitor -) 80 mg PO HS [facility] Last Admin: 01/02/19 22:59 Dose: 80 mg Clopidogrel Bisulfate (Plavix -) 75 mg PO DAILY [facility] Last Admin: 01/03/19 10:20 Dose: 75 mg Furosemide (Lasix -) 40 mg PO BID@0600,1400 [facility] Hydralazine HCl (Apresoline -) 100 mg PO TID [facility] Nitroglycerin/Dextrose (Nitroglycerin 50mg/D5w 250ml) 50 mg in 250 mls @ 3 mls/ hr IVPB TITR [facility] Last Titration: 01/03/19 09:19 Dose: 110 mcg/min, 33 mls/hr Insulin Aspart (Novolog Vial Sliding Scale -) 1 vial SQ ACHS [facility]; Protocol Last Admin: 01/03/19 06:40 Dose: 12 units Insulin Detemir (Levemir Vial) 30 units SQ BID [facility] Last Admin: 01/03/19 10:20 Dose: 30 units Isosorbide Mononitrate (Imdur -) 60 mg PO DAILY [facility] Nifedipine (Procardia Xl -) 120 mg PO DAILY PUSH[facility] ASSESSMENT AND PLAN: Hypertensive Urgency Acute on Chronic Diastolic Heart Failure +Troponins likely Demand Ischemia CAD COPD Cocaine Use DM CKD Anemia - resume home PO meds - titrate off nitro gtt - send tox screen - lasix - monitor urine output, creatinine - can d/c heparin gtt - O2 to keep SpO2 >90% - cocaine cessation - DVT prophylaxis - ICU monitoring while on nitro gtt
--- NOTE | 2019-01-03 11:23 | ECHO ---
Name: KEMAL GAN Exam:Adult Echocardiogram Study Date: 01/03/2019 09:12 AM Age: 58 yrs Reason For Study: CHF Height: 71 in Weight: 236 lb BSA: 2.3 m2 MMode/2D Measurements & Calculations IVSd: 1.3 cm Ao root diam: 3.0 cm LVIDd: 6.0 cm LA dimension: 5.4 cm LVIDs: 4.3 cm LVPWd: 1.3 cm EDV(Teich): 180.9 ml LVOT diam: 2.0 cm ESV(Teich): 84.3 ml LAV (MOD-bp): 80.6 ml Doppler Measurements & Calculations Ao V2 max: 192.1 cm/sec AI max kevin: 421.8 cm/sec Ao max P.8 mmHg AI max P.4 mmHg AI P1/2t: 753.1 msec AI dec slope: 164.1 cm/sec2 MONIKA(V,D): 1.4 cm2 LV V1 max P.1 mmHg MR max kevin: 584.0 cm/sec LV V1 max: 88.1 cm/sec MR max P.3 mmHg TR max kevin: 304.1 cm/sec PA V2 max: 97.7 cm/sec TR max P.3 mmHg PA max P.8 mmHg Med Peak E' Kevin: 5.8 cm/sec PI Vmax: 165.6 cm/sec Lat Peak E' Kevin: 8.1 cm/sec Procedure A complete two-dimensional transthoracic echocardiogram was performed (2D, M-mode, Doppler and color flow Doppler). Left Ventricle The left ventricle is mildly dilated. There is mild concentric left ventricular hypertrophy. Left debra tricular systolic function is low normal. Ejection Fraction = 50-55%. No regional wall motion abnormalities no delmi. Right Ventricle The right ventricle is normal size. The right ventricular systolic function is normal. Atria The left atrium is mildly dilated. LA volume index is 36 ml/m2. The right atrium is mildly dilated. Mitral Valve There is mild mitral valve thickening. There is moderate to severe mitral regurgitation. The mitral regurgitant jet is eccentrically directed. Tricuspid Valve The tricuspid valve is normal in structure and function. There is mild to moderate tricuspid regurgit ation. Pulmonary artery systolic pressure is at least 58 mmHg if RA pressure is assumed 15 mmHg (dilated IVC with <50% collapse). Aortic Valve There is mild aortic sclerosis.;. Mild aortic regurgitation. Pulmonic Valve The pulmonic valve is not well visualized. Mild pulmonic valvular regurgitation. Great Vessels The aortic root is normal size. Pericardium/Pleura There is no pericardial effusion. Interpretation Summary The left ventricle is mildly dilated. There is mild concentric left ventricular hypertrophy. Left ventricular systolic function is low normal. No regional wall motion abnormalities noted. Ejection Fraction = 50-55%. The right ventricular systolic function is normal. The left atrium is mildly dilated. The right atrium is mildly dilated. There is mild mitral valve thickening. There is moderate to severe mitral regurgitation. The mitral regurgitant jet is eccentrically directed. There is mild to moderate tricuspid regurgitation. Pulmonary artery systolic pressure is at least 58 mmHg if RA pressure is assumed 15 mmHg (dilated IVC with <50% collapse) There is mild aortic sclerosis. Mild aortic regurgitation. Mild pulmonic valvular regurgitation. There is no pericardial effusion. Nicholas Singletary MD 01/03/2019 11:23 AM
[2019-01-03] MEDS: NIFEdipine E.R 60 MG TABLET (UD) PO SCH (11:49)
[2019-01-03] MEDS: ISOSORBIDE MONONITRATE 30 MG TAB.SR.24H (FP) PO SCH (11:49)
[2019-01-03] MEDS ORDERED: NITROGLYCERIN 25MG/D5W 250ML 25 MG/250 ML ML IVPB ONE (12:42)
[2019-01-03] MEDS: NITROGLYCERIN 50MG/D5W 250ML 50 MG/250 ML ML IVPB SCH ×2 (13:08→21:20)
[2019-01-03] MEDS: FUROSEMIDE 40 MG TABLET (FP) PO SCH ×2 (13:25→15:05)
[2019-01-03] MEDS: hydrALAZINE HCL 50 MG TABLET (FP) PO SCH ×3 (13:25→21:38)
[2019-01-03] MEDS ORDERED: LABETALOL HCL 200 MG TABLET (FP) PO SCH (14:00)
--- NOTE | 2019-01-03 14:18 | PN ---
Physical Exam: SUBJECTIVE: Patient seated, drowsy due to lack of sleep. Cooperative, states breathing is better. OBJECTIVE: Vital Signs Period Temp Pulse Resp BP Sys/Caal Pulse Ox Last 24 Hr 97 F-98.6 F 78-117 15-35 155-231/94-142 92-100 GENERAL: AOx3 HEAD: Normal with no signs of trauma. EYES: Pupils equal, round and reactive to light, extraocular movements intact, conjunctiva clear. LUNGS: Decreased breath sounds with crackles B/L HEART: Regular rate and rhythm, distant S1 and S2 without murmur, rub or gallop. ABDOMEN: Distended AB with epigastric/periumbilical midline hernia. Soft, nontender, normoactive bowel sounds, no guarding, no rebound EXTREMITIES: warm, well-perfused. No cyanosis. Cap refill <2 seconds. LOWER EXTREMITIES: 2+ pitting edema BLE to knees. warm, well-perfused. No calf tenderness. NEUROLOGICAL: AOx3. Normal speech. PSYCHIATRIC: Cooperative. Good eye contact. Appropriate mood and affect. SKIN: Warm, no rashes or lesions noted. Laboratory Results - last 24 hr 01/02/19 01/02/19 01/02/19 14:53 14:53 14:53 WBC 7.4 RBC 3.53 L Hgb 10.6 L Hct 33.5 L MCV 95.2 MCH 30.2 MCHC 31.7 L RDW 16.7 H Plt Count 295 D MPV 7.5 Absolute Neuts (auto) 5.6 Total Counted 100 Neutrophils % 74.8 Neutrophils % (Manual) 66.3 Band Neutrophils % 0.0 Lymphocytes % 15.6 Lymphocytes % (Manual) 24.5 D Monocytes % 8.3 Monocytes % (Manual) 7 Eosinophils % 0.3 Eosinophils % (Manual) 1.0 Basophils % 1.0 Basophils % (Manual) 0.0 Myelocytes % (Man) 0 Promyelocytes % (Man) 0 Blast Cells % (Manual) 0 Nucleated RBC % 0 Metamyelocytes 0 Hypochromia 0 Platelet Estimate Normal Platelet Comment Present Polychromasia 1+ Poikilocytosis 1+ Anisocytosis 1+ Microcytosis 1+ Macrocytosis 1+ Spherocytes 1+ PT with INR INR PTT (Actin FS) Sodium 134 L Potassium 4.8 Chloride 102 Carbon Dioxide 22 Anion Gap 10 BUN 23.8 H Creatinine 1.5 H Est GFR (CKD-EPI)AfAm 59.05 Est GFR (CKD-EPI)NonAf 50.95 POC Glucometer Random Glucose 224 H Lactic Acid Calcium 8.3 L Magnesium Total Bilirubin 1.2 H AST 279 H ALT 225 H Alkaline Phosphatase 252 H Creatine Kinase 194 Creatine Kinase Index 0.8 CK-MB (CK-2) 1.6 Troponin I 0.17 H B-Natriuretic Peptide 6675.0 H Total Protein 6.7 Albumin 2.9 L Lipase 01/02/19 01/02/19 01/02/19 14:53 14:53 17:30 WBC RBC Hgb Hct MCV MCH MCHC RDW Plt Count MPV Absolute Neuts (auto) Total Counted Neutrophils % Neutrophils % (Manual) Band Neutrophils % Lymphocytes % Lymphocytes % (Manual) Monocytes % Monocytes % (Manual) Eosinophils % Eosinophils % (Manual) Basophils % Basophils % (Manual) Myelocytes % (Man) Promyelocytes % (Man) Blast Cells % (Manual) Nucleated RBC % Metamyelocytes Hypochromia Platelet Estimate Platelet Comment Polychromasia Poikilocytosis Anisocytosis Microcytosis Macrocytosis Spherocytes PT with INR 14.80 H INR 1.25 H PTT (Actin FS) 24.2 L Sodium Potassium Chloride Carbon Dioxide Anion Gap BUN Creatinine Est GFR (CKD-EPI)AfAm Est GFR (CKD-EPI)NonAf POC Glucometer Random Glucose Lactic Acid 2.0 Calcium Magnesium Total Bilirubin AST ALT Alkaline Phosphatase Creatine Kinase Creatine Kinase Index CK-MB (CK-2) Troponin I B-Natriuretic Peptide Total Protein Albumin Lipase 155 01/02/19 01/02/19 01/03/19 21:15 22:57 02:15 WBC RBC Hgb Hct MCV MCH MCHC RDW Plt Count MPV Absolute Neuts (auto) Total Counted Neutrophils % Neutrophils % (Manual) Band Neutrophils % Lymphocytes % Lymphocytes % (Manual) Monocytes % Monocytes % (Manual) Eosinophils % Eosinophils % (Manual) Basophils % Basophils % (Manual) Myelocytes % (Man) Promyelocytes % (Man) Blast Cells % (Manual) Nucleated RBC % Metamyelocytes Hypochromia Platelet Estimate Platelet Comment Polychromasia Poikilocytosis Anisocytosis Microcytosis Macrocytosis Spherocytes PT with INR INR PTT (Actin FS) 34.9 Sodium Potassium Chloride Carbon Dioxide Anion Gap BUN Creatinine Est GFR (CKD-EPI)AfAm Est GFR (CKD-EPI)NonAf POC Glucometer 488 Random Glucose Lactic Acid Calcium Magnesium Total Bilirubin AST ALT Alkaline Phosphatase Creatine Kinase Creatine Kinase Index CK-MB (CK-2) Troponin I 0.21 H B-Natriuretic Peptide Total Protein Albumin Lipase 01/03/19 01/03/19 01/03/19 02:15 06:34 07:30 WBC 5.7 RBC 3.22 L Hgb 9.8 L Hct 30.2 L MCV 93.8 MCH 30.4 MCHC 32.4 RDW 16.6 H Plt Count 279 MPV 7.2 L Absolute Neuts (auto) 4.2 Total Counted Neutrophils % 72.4 Neutrophils % (Manual) Band Neutrophils % Lymphocytes % 17.3 Lymphocytes % (Manual) Monocytes % 9.5 Monocytes % (Manual) Eosinophils % 0.0 D Eosinophils % (Manual) Basophils % 0.8 Basophils % (Manual) Myelocytes % (Man) Promyelocytes % (Man) Blast Cells % (Manual) Nucleated RBC % 0 Metamyelocytes Hypochromia Platelet Estimate Platelet Comment Polychromasia Poikilocytosis Anisocytosis Microcytosis Macrocytosis Spherocytes PT with INR INR PTT (Actin FS) Sodium Potassium Chloride Carbon Dioxide Anion Gap BUN Creatinine Est GFR (CKD-EPI)AfAm Est GFR (CKD-EPI)NonAf POC Glucometer 469 Random Glucose Lactic Acid Calcium Magnesium Total Bilirubin AST ALT Alkaline Phosphatase Creatine Kinase Creatine Kinase Index CK-MB (CK-2) Troponin I 0.18 H B-Natriuretic Peptide Total Protein Albumin Lipase 01/03/19 01/03/19 01/03/19 07:30 07:30 11:17 WBC RBC Hgb Hct MCV MCH MCHC RDW Plt Count MPV Absolute Neuts (auto) Total Counted Neutrophils % Neutrophils % (Manual) Band Neutrophils % Lymphocytes % Lymphocytes % (Manual) Monocytes % Monocytes % (Manual) Eosinophils % Eosinophils % (Manual) Basophils % Basophils % (Manual) Myelocytes % (Man) Promyelocytes % (Man) Blast Cells % (Manual) Nucleated RBC % Metamyelocytes Hypochromia Platelet Estimate Platelet Comment Polychromasia Poikilocytosis Anisocytosis Microcytosis Macrocytosis Spherocytes PT with INR INR PTT (Actin FS) 73.0 H Sodium 133 L Potassium 3.7 Chloride 100 Carbon Dioxide 25 Anion Gap 8 BUN 32.8 H Creatinine 1.6 H Est GFR (CKD-EPI)AfAm 54.61 Est GFR (CKD-EPI)NonAf 47.12 POC Glucometer 365 Random Glucose 423 H* Lactic Acid Calcium 8.2 L Magnesium 1.9 Total Bilirubin AST ALT Alkaline Phosphatase Creatine Kinase Creatine Kinase Index CK-MB (CK-2) Troponin I 0.18 H B-Natriuretic Peptide Total Protein Albumin Lipase Active Medications Generic Name Dose Route Start Last Admin Trade Name Freq PRN Reason Stop Dose Admin Albuterol/Ipratropium 1 amp 01/02/19 16:15 01/02/19 16:17 Duoneb - NEB 01/03/19 16:16 1 amp ONCE PUSH[facility] Administration Aspirin 81 mg 01/03/19 10:00 01/03/19 10:20 Ecotrin - PO 81 mg DAILY [facility] Administration Atorvastatin Calcium 80 mg 01/02/19 22:00 01/02/19 22:59 Lipitor - PO 80 mg HS [facility] Administration Clopidogrel Bisulfate 75 mg 01/03/19 10:00 01/03/19 10:20 Plavix - PO 75 mg DAILY [facility] Administration Furosemide 40 mg 01/03/19 14:00 01/03/19 13:25 Lasix - PO 40 mg BID@0600,1400 [facility] Administration Hydralazine HCl 100 mg 01/03/19 14:00 01/03/19 13:25 Apresoline - PO 100 mg TID [facility] Administration Nitroglycerin/Dextrose 50 mg in 250 mls @ 3 mls/hr 01/02/19 20:15 01/03/19 13 :08 Nitroglycerin 50mg/D5w 250ml IVPB 120 mcg/min TITR [facility] 36 mls/hr Administration 10 MCG/MIN Insulin Aspart 1 vial 01/02/19 22:00 01/03/19 11:43 Novolog Vial Sliding Scale - SQ 10 units ACHS [facility] Administration Protocol Insulin Detemir 30 units 01/03/19 10:00 01/03/19 10:20 Levemir Vial SQ 30 units BID [facility] Administration Isosorbide Mononitrate 60 mg 01/03/19 11:00 01/03/19 11:49 Imdur - PO 60 mg DAILY [facility] Administration Nifedipine 120 mg 01/03/19 11:00 01/03/19 11:49 Procardia Xl - PO 120 mg DAILY [facility] Administration ASSESSMENT/PLAN: 58 YO M with PMH of COPD, asthma, CAD (s/p 3x stents), AAA, CKD, R carotid stenosis (s/p carotid endarterectomy), TIA, HFrEF, HTN, HLD, DM, and nicotine/ cocaine use. Presented to the ER with complaints of SOB, peripheral edema, and HTN 2/2 CHF exacerbation and HTN emergency. #Cards - Hypertensive emergency, CHF exacerbation d/t med noncompliance - Trops 0.21 -> 0.18 -> 0.18 - Will wean off Nitro drip - Continue home ASA 81mg, Lipitor 80mg, Plavix 75mg - Hx of HTN: cont home meds Hydralazine 100mg TID, Imdur 60mg, Nifedipine 120mg - Hx of CHF: cont home meds Lasix PO 40mg BID - Echo: EF 50-55%, mild LVH, LA RA mildly dilated, mod-severe MV Regurg #Pulm - hx asthma, COPD - CXR 01/03: showed cardiomegaly w braulio congestion, blunting of right, left CP angles - Duonebs #GI - elevated LFTs - pending RUQ US - Na diet # - hx CKD (Cr baseline 1.3) - Cr 1.5, monitor - I/O #Neuro - hx brain infarcts - AOx3, no active issues - UTox ordered #Endo - hx DM - Levemir 30 U SQ BID, Novolog SQ ACHS #DVT PE - Heparin drip D/Garo, was started for concern of NSTEMI #FEN - Na diet #Dispo - Monitor in ICU until weaned off Nitro ATTENDING PHYSICIAN STATEMENT I saw and evaluated the patient. I reviewed the resident's note and discussed the case with the resident. I agree with the resident's findings and plan as documented. SUBJECTIVE: OBJECTIVE: ASSESSMENT AND PLAN:
--- NOTE | 2019-01-03 15:02 | CON.CARD ---
Consult Consult Specialty:: Cardiology Referred by:: Hospitalist Medicine Reason for Consultation:: Recurrent acute on chronic diastolic heart failure - History of Present Illness Chief Complaint: Dyspnea History of Present Illness: Patient is a 58 year old male with underlying history of bronchial asthma, CAD s /p NV, PCI/stent, COPD, NIDDM, diastolic dysfunction with h/o failure, TIA, carotid stenosis s/p right CEA and poluysubstance abuse (alcohol and cocaine), left ankle ORIF, HTN heart disease, non-compliance presented with dyspnea, orthopnea, elevated BP, non-productive cough w/o chest pain, ran out of meds again, started on NTG and heparin gtts. symptoms improving with IV diuresis and resumption of BP control. - History Source History Provided By: Patient Limitations to Obtaining History: No Limitations - Past Medical History Cardio/Vascular: Yes: CAD (S/P PCI), HTN, Hyperlipdemia, NV, Other (dilated cardiomyopathy (nonischemic), LV systolic dysfunction, ) Pulmonary: Yes: Asthma Gastrointestinal: Yes: GERD Renal/: Yes: Renal Inusuff Musculoskeletal: Yes: Chronic low back pain Additional Medical History: Rightt achilles tendon tear. Rightt testicular torsion. Angioedema due to ACEI - Past Surgical History Past Surgical History: Yes: AAA Repair, Carotid Endarterectomy (right) - Alcohol/Substance Use Hx Alcohol Use: Yes Number of Drinks Daily: 3 (beer) History of Substance Use: reports: Cocaine - Smoking History Smoking history: Current every day smoker Have you smoked in the past 12 months: Yes Aproximately how many cigarettes per day: 2 If you are a former smoker, when did you quit?: smokes 2 x per week - Social History Usual Living Arrangement: Alone ADL: Independent Occupation: No working. On disability History of Recent Travel: No Home Medications - Allergies Allergies/Adverse Reactions: Allergies Allergy/AdvReac Type Severity Reaction Status Date / Time IRMA Inhibitors Allergy Verified 01/02/19 14:08 - Home Medications Home Medications: Ambulatory Orders Hydralazine HCl 100 mg PO TID 08/09/18 Clopidogrel Bisulfate [Plavix] 75 mg PO DAILY 10/19/18 Albuterol 0.083% Nebulizer Jane [Ventolin 0.083% Nebulizer Soln -] 1 amp NEB Q4H #10 amp 11/01/18 Aspirin Coated [Ecotrin -] 81 mg PO DAILY tablet.ec 11/04/18 Insulin (Levemir) [Levemir Vial] 30 units SQ 0700,2200 units 11/04/18 Insulin Sliding Scale [Novolog Vial Sliding Scale -] 1 vial SQ ACHS units 11/04 Sitagliptin Phosphate [Januvia -] 25 mg PO DAILY@0700 #30 tab 11/04/18 Atorvastatin Ca [Lipitor] 80 mg PO HS #30 tablet 12/08/18 Furosemide [Lasix -] 40 mg PO BID@0600,1400 #60 tablet 12/08/18 Isosorbide Mononitrate [Imdur -] 60 mg PO DAILY tab.sr.24h 12/08/18 Labetalol HCl [Normodyne -] 400 mg PO TID #60 tablet 12/08/18 Nifedipine ER [Procardia XL -] 120 mg PO DAILY #60 tab.er.24 12/08/18 Spironolactone [Aldactone -] 50 mg PO BID #120 tablet 12/08/18 Review of Systems - Review of Systems Cardiovascular: reports: Edema, Shortness of Breath Respiratory: reports: Cough, Exercise Intolerance, SOB, SOB on Exertion Vital Signs: Vital Signs Temperature 98.2 F 01/03/19 11:00 Pulse Rate 96 H 01/03/19 14:00 Respiratory Rate 24 H 01/03/19 13:00 Blood Pressure 128/80 01/03/19 14:00 O2 Sat by Pulse Oximetry (%) 100 01/03/19 09:00 Constitutional: Yes: No Distress, Calm Neck: Yes: Supple Respiratory: Yes: Regular, Diminished, On Nasal O2 Gastrointestinal: Yes: Normal Bowel Sounds, Soft Cardiovascular: Yes: Regular Rate and Rhythm JVD: No Carotid Bruit: No Heart Sounds: Yes: S1, S2 Murmur: Yes: Systolic Murmur, Grade 2 Edema: No - Other Data Labs, Other Data: CBC, BMP 01/03/19 07:30 01/03/19 07:30 INR, PTT INR 1.25 (0.83-1.09) H 01/02/19 14:53 Troponin, BNP 01/02/19 01/02/19 01/02/19 14:53 14:53 21:15 Troponin I 0.17 H 0.21 H B-Natriuretic Peptide 6675.0 H 01/03/19 01/03/19 02:15 07:30 Troponin I 0.18 H 0.18 H B-Natriuretic Peptide Troponin, BNP 01/02/19 01/02/19 01/02/19 14:53 14:53 21:15 Troponin I 0.17 H 0.21 H B-Natriuretic Peptide 6675.0 H 01/03/19 01/03/19 02:15 07:30 Troponin I 0.18 H 0.18 H B-Natriuretic Peptide ST @ 107 LAE, PVC Ejection Fraction %: LVEF > or = 40 % Imaging - Results Chest X-ray: Report Reviewed (Mild congestion) Problem List - Problems (1) Diastolic CHF Code(s): I50.30 - UNSPECIFIED DIASTOLIC (CONGESTIVE) HEART FAILURE (2) CHF exacerbation Code(s): I50.9 - HEART FAILURE, UNSPECIFIED Qualifiers: Heart failure type: diastolic Qualified Code(s): I50.33 - Acute on chronic diastolic (congestive) heart failure (3) Shortness of breath Code(s): R06.02 - SHORTNESS OF BREATH (4) Acute on chronic diastolic (congestive) heart failure Code(s): I50.33 - ACUTE ON CHRONIC DIASTOLIC (CONGESTIVE) HEART FAILURE (5) CAD (coronary artery disease) Code(s): I25.10 - ATHSCL HEART DISEASE OF [place] CORONARY ARTERY W/O ANG PCTRS Qualifiers: Coronary Disease-Associated Artery/Lesion type: [place] artery [place] vs. transplanted heart: [place] heart Associated angina: without angina Qualified Code(s): I25.10 - Atherosclerotic heart disease of [place] coronary artery without angina pectoris (6) CKD (chronic kidney disease) stage 3, GFR 30-59 ml/min Code(s): N18.3 - CHRONIC KIDNEY DISEASE, STAGE 3 (MODERATE) (7) Cerebrovascular disease Code(s): I67.9 - CEREBROVASCULAR DISEASE, UNSPECIFIED (8) Diabetic nephropathy associated with type 2 diabetes mellitus Code(s): E11.21 - TYPE 2 DIABETES MELLITUS WITH DIABETIC NEPHROPATHY (9) HTN (hypertension) Code(s): I10 - ESSENTIAL (PRIMARY) HYPERTENSION Qualifiers: Hypertension type: essential hypertension Qualified Code(s): I10 - Essential (primary) hypertension (10) History of myocardial infarction Code(s): I25.2 - OLD MYOCARDIAL INFARCTION (11) Hyperglycemia due to type 2 diabetes mellitus Code(s): E11.65 - TYPE 2 DIABETES MELLITUS WITH HYPERGLYCEMIA Qualifiers: Diabetes mellitus halfway insulin use: without halfway use Qualified Code(s): E11.65 - Type 2 diabetes mellitus with hyperglycemia (12) Hyperlipidemia Code(s): E78.5 - HYPERLIPIDEMIA, UNSPECIFIED Qualifiers: Hyperlipidemia type: pure hypercholesterolemia Qualified Code(s): E78.00 - Pure hypercholesterolemia, unspecified (13) Carotid artery stenosis with cerebral infarction Code(s): I63.239 - CEREB INFRC DUE TO UNSP OCCLS OR STENOS OF UNSP CRTD ARTERY (14) Hypertensive emergency Code(s): I10 - ESSENTIAL (PRIMARY) HYPERTENSION Assessment/Plan 01/03/2019 Echo: Mildly dilated, mild cLVH, low normal LVEF 50-55%, normal RV fxn, mild SHAHAAN, mod-severe MR, mild-mod TR RVSP 58 mmHg, mild AR, WA 12/02/2018 Mri of brain: No acute stroke, old right posterior temporal cortical infarct 12/02/2018 Carotid ultrasound should left moderate stenosis and vacular surgery consult pending 12/02/2018 Echo: Normal LV size and fxn with mod cLVH, normal RV size and fxn, mild SHAHANA, mild MR, TR, AR 12/01/2018 Ct head right 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 Acute on Chronic Diastolic Heart Failure with mod-severe MR 2. Hypertensive urgency due to medication noncompliance 3. CAD and history of NV, PCI/stent with demand ischemia 4. PVC 5. COPD with h/o exacerbation 6. Hypercholesterolemia 7. DM 8. CKD 9. Substance abuse (Cocaine) 10. History of angioedema due to ACEI 11. TIA post right CEA, 50-69% left carotid 12. Anemia 13. 4.3 cm infrarenal AAA with mural thrombus PLAN: 1. Continue Lasix 40 mg IV BID and Spironolactone 50 mg BID with monitoring diuretic response, renal function and electrolytes 2. Continue Labetolol 400 tid, Hydralazine 100 mg TID, ASA 81 mg QD, Plavix 75 mg QD, Lipitor 80 mg QHS, Procardia XL 120 mg QD and Imdur 60 mg QD and uptitrate as tolerated, wean off NTG gtt, d/c heparin gtt. 3. DVT prophylaxis with Lovenox 4. Bronchodilator, O2 to keep SpO2 >90%, cocaine cessation 5. Thank you for consultatuve opportunity
[2019-01-03] MEDS: ALBUTEROL SO4 2.5/IPRATROPIUM 0.5 INH SOL 3 ML VIAL.NEB. NEB SCH (16:39)
[2019-01-03 20:54] LABS: METHADONE, UR NEGATIVE ng/ml (CUTOFF=300); OPIATES, URI NEGATIVE ng/ml (CUTOFF=300); PHENCYCLIDINE,URINE NEGATIVE ng/ml (CUTOFF=25); URINE AMPHETAMINES NEGATIVE ng/ml (CUTOFF=500); URINE BARBITURATES NEGATIVE ng/ml (CUTOFF=200); URINE BENZODIAZEPINES NEGATIVE ng/ml (CUTOFF=200)
[2019-01-03 21:20] LABS: COCAINE, UR POSITIVE ng/ml (CUTOFF=300)
[2019-01-03] MEDS: ATORVASTATIN CA 80 MG TABLET (FP) PO SCH (21:38)
[2019-01-04] MEDS ORDERED: hydrALAZINE HCL 50 MG TABLET (FP) PO ONE (00:34)
[2019-01-04] MEDS: INSULIN SLIDING SCALE (NOVOLOG) 1 VIAL SQ SCH ×4 (06:39→21:19)
[2019-01-04] MEDS: hydrALAZINE HCL 50 MG TABLET (FP) PO SCH ×3 (06:40→21:13)
[2019-01-04] MEDS: FUROSEMIDE 40 MG TABLET (FP) PO SCH ×2 (06:44→13:09)
[2019-01-04 07:00] LABS: HEMATOCRIT 33.7 % (35.4-49); HEMOGLOBIN 10.6 GM/dL (11.7-16.9); MCH 30.1 pg (25.7-33.7); MCHC 31.6 g/dl (32.0-35.9); MEAN CELL VOLUME 95.2 fl (80-96); MEAN PLT VOLUME 7.6 fl (7.5-11.1); PLATELET COUNT 369 K/MM3 (134-434); RBC 3.53 M/mm3 (4.00-5.60); RDW 17.2 % (11.9-15.9); WHITE BLOOD COUNT 9.9 K/mm3 (4.0-10.0)
[2019-01-04] MEDS ORDERED: INSULIN (LEVEMIR) 100 UNITS/ML UNITS SQ SCH ×3 (07:00→07:07)
[2019-01-04 07:31] LABS: ALBUMIN 2.8 g/dl (3.4-5.0); BILIRUBIN,TOTAL 0.8 mg/dL (0.2-1); BLOOD UREA NITROGEN 24.9 mg/dL (7-18); CREATININE 1.2 mg/dL (0.55-1.3); POTASSIUM 3.3 mmol/L (3.5-5.1); TOT PROT 6.5 g/dl (6.4-8.2)
[2019-01-04] MEDS: LABETALOL HCL 200 MG TABLET (FP) PO SCH ×3 (08:47→21:13)
[2019-01-04] MEDS: ASPIRIN COATED 81 MG TABLET.EC PO SCH (09:16)
[2019-01-04] MEDS: ISOSORBIDE MONONITRATE 30 MG TAB.SR.24H (FP) PO SCH (09:16)
[2019-01-04] MEDS: NIFEdipine E.R 60 MG TABLET (UD) PO SCH (09:16)
[2019-01-04] MEDS: CLOPIDOGREL BISULFATE 75 MG TABLET (FP) PO SCH (09:17)
--- NOTE | 2019-01-04 09:39 | PN ---
Physical Exam: SUBJECTIVE: Patient seen and examined. No acute events overnight. Denies CP, SOB , or headache. OBJECTIVE: Vital Signs Period Temp Pulse Resp BP Sys/Caal Pulse Ox Last 24 Hr 97.4 F-98.6 F 84-103 17-26 126-174/72-128 97-100 GENERAL: The patient is awake, alert, and fully oriented, in no acute distress. LUNGS: Breath sounds equal, clear to auscultation bilaterally, no wheezes, no crackles, no accessory muscle use. HEART: Regular rate and rhythm, S1, S2 without murmur, rub or gallop. ABDOMEN: Soft, nontender, nondistended, normoactive bowel sounds, no guarding, no rebound, no hepatosplenomegaly, no masses. EXTREMITIES: warm, well-perfused, 2+ pitting edema BLE NEUROLOGICAL:AOx3 Normal speech Laboratory Results - last 24 hr 01/03/19 01/03/19 01/03/19 11:17 13:14 16:43 WBC RBC Hgb Hct MCV MCH MCHC RDW Plt Count MPV PTT (Actin FS) Sodium Potassium Chloride Carbon Dioxide Anion Gap BUN Creatinine Est GFR (CKD-EPI)AfAm Est GFR (CKD-EPI)NonAf POC Glucometer 365 75 Random Glucose Calcium Total Bilirubin AST ALT Alkaline Phosphatase Total Protein Albumin Opiates Screen Negative Methadone Screen Negative Barbiturate Screen Negative Phencyclidine Screen Negative Ur Amphetamines Screen Negative MDMA (Ecstasy) Screen Negative Benzodiazepines Screen Negative Cocaine Screen Positive A* U Marijuana (THC) Screen Negative 01/03/19 01/04/19 01/04/19 21:53 05:40 05:40 WBC 9.9 RBC 3.53 L Hgb 10.6 L Hct 33.7 L MCV 95.2 MCH 30.1 MCHC 31.6 L RDW 17.2 H Plt Count 369 D MPV 7.6 PTT (Actin FS) 28.5 Sodium Potassium Chloride Carbon Dioxide Anion Gap BUN Creatinine Est GFR (CKD-EPI)AfAm Est GFR (CKD-EPI)NonAf POC Glucometer 110 Random Glucose Calcium Total Bilirubin AST ALT Alkaline Phosphatase Total Protein Albumin Opiates Screen Methadone Screen Barbiturate Screen Phencyclidine Screen Ur Amphetamines Screen MDMA (Ecstasy) Screen Benzodiazepines Screen Cocaine Screen U Marijuana (THC) Screen 01/04/19 01/04/19 05:40 06:36 WBC RBC Hgb Hct MCV MCH MCHC RDW Plt Count MPV PTT (Actin FS) Sodium 140 Potassium 3.3 L Chloride 103 Carbon Dioxide 30 Anion Gap 6 L BUN 24.9 H Creatinine 1.2 Est GFR (CKD-EPI)AfAm 77.33 Est GFR (CKD-EPI)NonAf 66.72 POC Glucometer 89 Random Glucose 89 Calcium 8.0 L Total Bilirubin 0.8 AST 143 H ALT 200 H Alkaline Phosphatase 218 H Total Protein 6.5 Albumin 2.8 L Opiates Screen Methadone Screen Barbiturate Screen Phencyclidine Screen Ur Amphetamines Screen MDMA (Ecstasy) Screen Benzodiazepines Screen Cocaine Screen U Marijuana (THC) Screen Active Medications Generic Name Dose Route Start Last Admin Trade Name Freq PRN Reason Stop Dose Admin Aspirin 81 mg 01/03/19 10:00 01/04/19 09:16 Ecotrin - PO 81 mg DAILY PUSHPA Administration Atorvastatin Calcium 80 mg 01/02/19 22:00 01/03/19 21:38 Lipitor - PO 80 mg HS PUSHPA Administration Clopidogrel Bisulfate 75 mg 01/03/19 10:00 01/04/19 09:17 Plavix - PO 75 mg DAILY PUSHPA Administration Furosemide 40 mg 01/03/19 14:00 01/04/19 06:44 Lasix - PO 40 mg BID@0600,1400 PUSHPA Administration Heparin Sodium (Porcine) 5,000 unit 01/04/19 14:00 Heparin - SQ TID PUSHPA Hydralazine HCl 100 mg 01/03/19 14:00 01/04/19 06:40 Apresoline - PO 100 mg TID PUSHPA Administration Nitroglycerin/Dextrose 50 mg in 250 mls @ 3 mls/hr 01/02/19 20:15 01/03/19 21 :20 Nitroglycerin 50mg/D5w 250ml IVPB Not Given TITR PUSHPA 10 MCG/MIN Insulin Aspart 1 vial 01/02/19 22:00 01/04/19 06:39 Novolog Vial Sliding Scale - SQ Not Given ACHS [facility] Protocol Insulin Detemir 10 units 01/04/19 07:07 Levemir Vial SQ HS PUSHPA Insulin Detemir 10 units 01/04/19 07:07 Levemir Vial SQ ACBK [facility] Isosorbide Mononitrate 60 mg 01/03/19 11:00 01/04/19 09:16 Imdur - PO 60 mg DAILY PUSHPA Administration Labetalol HCl 400 mg 01/04/19 08:00 01/04/19 08:47 Normodyne - PO 400 mg TID PUHSPA Administration Nifedipine 120 mg 01/03/19 11:00 01/04/19 09:16 Procardia Xl - PO 120 mg DAILY PUSH[facility] Administration Spironolactone 50 mg 01/04/19 10:00 01/04/19 09:16 Aldactone - PO 50 mg BID PUSHPA Administration ASSESSMENT/PLAN: 58 YO M with PMH of COPD, asthma, CAD (s/p 3x stents), AAA, CKD, R carotid stenosis (s/p carotid endarterectomy), TIA, HFrEF, HTN, HLD, DM, and nicotine/ cocaine use. Presented to the ER with complaints of SOB, peripheral edema, and HTN 2/2 CHF exacerbation and HTN emergency #Cards - Hypertensive emergency, CHF exacerbation d/t med noncompliance - off nitro drip - Continue home ASA, Lipitor, Plavix - HTN: restarted labetalol, spironolactone, cont home Hydralazine, Imdur, Nifedipine - CHF: cont home Lasix - Echo: EF 50-55%, mild LVH, LA RA mildly dilated, mod-severe MV Regurg - started heparin TID for DVT ppx #Pulm - hx asthma, COPD - on 3L NC - Duonebs #GI - elevated LFTs - RUQ US 01/03 showed gallbladder wall thickening, borderline dilated CBD, hepatomegaly - Na diet # - hx CKD (Cr baseline 1.3) - downtrending Cr 1.5 to 1.2, monitor - I/O #Neuro - hx brain infarcts - AOx3, no active issues - UTox + cocaine #Endo - hx DM - reduced Levemir to 10U SQ BID d/t BG 70-100, continue Novolog SQ ACHS #DVT PE - Heparin TID - no GI ppx #FEN - no fluids - hypoK - repleted - Na diet #Dispo - transfer to tele Visit type - Emergency Visit Emergency Visit: Yes ED Registration Date: 01/02/19 Care time: The patient presented to the Emergency Department on the above date and was hospitalized for further evaluation of their emergent condition. - New Patient This patient is new to me today: No - Critical Care Critical Care patient: Yes Total Critical Care Time (in minutes): 38 Critical Care Statement: The care of this patient involved high complexity decision making to prevent further life threatening deterioration of the patient 's condition and/or to evaluate & treat vital organ system(s) failure or risk of failure. ATTENDING PHYSICIAN STATEMENT I saw and evaluated the patient. I reviewed the resident's note and discussed the case with the resident. I agree with the resident's findings and plan as documented. SUBJECTIVE: OBJECTIVE: ASSESSMENT AND PLAN:
[2019-01-04] MEDS ORDERED: POTASSIUM CHLORIDE ORAL LIQUID 20 MEQ/15 ML PO ONE (09:43)
[2019-01-04] MEDS ORDERED: SPIRONOLACTONE 25 MG TABLET (FP) PO SCH (10:00)
--- NOTE | 2019-01-04 11:35 | PN ---
Teaching Attending Note Name of Resident: Sotero Nguyen ATTENDING PHYSICIAN STATEMENT I saw and evaluated the patient. I reviewed the resident's note and discussed the case with the resident. I agree with the resident's findings and plan as documented. SUBJECTIVE: Pt seen and examined in the ICU. Off nitro gtt. States breathing is better. No chest pain. OBJECTIVE: Vital Signs Period Temp Pulse Resp BP Sys/Caal Pulse Ox Last 24 Hr 97.4 F-98.6 F 80-103 15-26 126-174/72-128 97-100 Intake & Output 01/01/19 01/02/19 01/03/19 01/04/19 23:59 23:59 23:59 23:59 Intake Total 1126 1000 Output Total 1950 2150 2300 Balance -1950 -1024 -1300 Weight 107.048 kg 107.4 kg 107.501 kg Gen: NAD in chair Heart: RRR Lung: decreased breath sounds at the bases Abd: soft, nontender Ext: + edema CBC, BMP 01/04/19 05:40 01/04/19 05:40 Active Medications Aspirin (Ecotrin -) 81 mg PO DAILY [facility] Last Admin: 01/04/19 09:16 Dose: 81 mg Atorvastatin Calcium (Lipitor -) 80 mg PO HS [facility] Last Admin: 01/03/19 21:38 Dose: 80 mg Clopidogrel Bisulfate (Plavix -) 75 mg PO DAILY [facility] Last Admin: 01/04/19 09:17 Dose: 75 mg Furosemide (Lasix -) 40 mg PO BID@0600,1400 [facility] Last Admin: 01/04/19 06:44 Dose: 40 mg Heparin Sodium (Porcine) (Heparin -) 5,000 unit SQ TID [facility] Hydralazine HCl (Apresoline -) 100 mg PO TID [facility] Last Admin: 01/04/19 06:40 Dose: 100 mg Nitroglycerin/Dextrose (Nitroglycerin 50mg/D5w 250ml) 50 mg in 250 mls @ 3 mls/ hr IVPB TITR [facility] Last Admin: 01/03/19 21:20 Dose: Not Given Insulin Aspart (Novolog Vial Sliding Scale -) 1 vial SQ [facility]; Protocol Last Admin: 01/04/19 11:18 Dose: 6 units Insulin Detemir (Levemir Vial) 10 units SQ HS [facility] Insulin Detemir (Levemir Vial) 10 units SQ ACBK [facility] Isosorbide Mononitrate (Imdur -) 60 mg PO DAILY [facility] Last Admin: 01/04/19 09:16 Dose: 60 mg Labetalol HCl (Normodyne -) 400 mg PO TID [facility] Last Admin: 01/04/19 08:47 Dose: 400 mg Nifedipine (Procardia Xl -) 120 mg PO DAILY [facility] Last Admin: 01/04/19 09:16 Dose: 120 mg Spironolactone (Aldactone -) 50 mg PO BID [facility] Last Admin: 01/04/19 09:16 Dose: 50 mg ASSESSMENT AND PLAN: Hypertensive Urgency Acute on Chronic Diastolic Heart Failure Mitral Regurgitation +Troponins likely Demand Ischemia CAD COPD Cocaine Use DM CKD Anemia - titrate home PO meds - continue lasix - monitor urine output, creatinine - O2 to keep SpO2 >90% - cocaine cessation - DVT prophylaxis - can monitor on floor
[2019-01-04] MEDS ORDERED: HEPARIN NA (PORCINE) 5,000 UNITS/ML 1ML VIAL SQ SCH (14:00)
--- NOTE | 2019-01-04 14:09 | PN ---
Progress Note, Physician Chief Complaint: Events noted. Seen in ICU Appears comfortable History of Present Illness: Patient was seen and examined. Awake and alert. Chart was reviewed Denies chest pain, SOB or palpitations - Current Medication List Current Medications: Active Medications Aspirin (Ecotrin -) 81 mg PO DAILY [facility] Last Admin: 01/04/19 09:16 Dose: 81 mg Atorvastatin Calcium (Lipitor -) 80 mg PO HS [facility] Last Admin: 01/03/19 21:38 Dose: 80 mg Clopidogrel Bisulfate (Plavix -) 75 mg PO DAILY [facility] Last Admin: 01/04/19 09:17 Dose: 75 mg Furosemide (Lasix -) 40 mg PO BID@0600,1400 [facility] Last Admin: 01/04/19 13:09 Dose: 40 mg Heparin Sodium (Porcine) (Heparin -) 5,000 unit SQ TID [facility] Last Admin: 01/04/19 13:09 Dose: 5,000 unit Hydralazine HCl (Apresoline -) 100 mg PO TID [facility] Last Admin: 01/04/19 13:09 Dose: 100 mg Nitroglycerin/Dextrose (Nitroglycerin 50mg/D5w 250ml) 50 mg in 250 mls @ 3 mls/ hr IVPB TITR [facility] Last Admin: 01/03/19 21:20 Dose: Not Given Insulin Aspart (Novolog Vial Sliding Scale -) 1 vial SQ [facility]; Protocol Last Admin: 01/04/19 11:18 Dose: 6 units Insulin Detemir (Levemir Vial) 10 units SQ [facility] Insulin Detemir (Levemir Vial) 10 units SQ ACBK [facility] Isosorbide Mononitrate (Imdur -) 60 mg PO DAILY [facility] Last Admin: 01/04/19 09:16 Dose: 60 mg Labetalol HCl (Normodyne -) 400 mg PO TID [facility] Last Admin: 01/04/19 13:09 Dose: 400 mg Nifedipine (Procardia Xl -) 120 mg PO DAILY [facility] Last Admin: 01/04/19 09:16 Dose: 120 mg Spironolactone (Aldactone -) 50 mg PO BID [facility] Last Admin: 01/04/19 09:16 Dose: 50 mg - Objective Vital Signs: Vital Signs Temperature 97.9 F 01/04/19 10:00 Pulse Rate 79 01/04/19 12:00 Respiratory Rate 17 01/04/19 12:00 Blood Pressure 139/93 01/04/19 12:00 O2 Sat by Pulse Oximetry (%) 97 01/04/19 09:05 Eyes: Yes: PERRL HENT: Yes: Atraumatic Neck: Yes: Supple Cardiovascular: Yes: Regular Rate and Rhythm, S1, S2 Respiratory: Yes: Diminished Gastrointestinal: Yes: Normal Bowel Sounds, Soft. No: Tenderness Edema: No Labs: CBC, BMP 01/04/19 05:40 01/04/19 05:40 INR, PTT INR 1.25 (0.83-1.09) H 01/02/19 14:53 Problem List - Problems (1) Carotid stenosis Code(s): I65.29 - OCCLUSION AND STENOSIS OF UNSPECIFIED CAROTID ARTERY (2) Diastolic CHF Code(s): I50.30 - UNSPECIFIED DIASTOLIC (CONGESTIVE) HEART FAILURE (3) Heart failure with reduced ejection fraction Code(s): I50.20 - UNSPECIFIED SYSTOLIC (CONGESTIVE) HEART FAILURE (4) [id number] kidney injury Code(s): N17.9 - ACUTE KIDNEY FAILURE, UNSPECIFIED; N18.9 - CHRONIC KIDNEY DISEASE, UNSPECIFIED Qualifiers: Chronic kidney disease stage: stage 3 (moderate) (5) CHF exacerbation Code(s): I50.9 - HEART FAILURE, UNSPECIFIED Qualifiers: Heart failure type: diastolic Qualified Code(s): I50.33 - Acute on chronic diastolic (congestive) heart failure (6) Cocaine abuse Code(s): F14.10 - COCAINE ABUSE, UNCOMPLICATED (7) Hypertensive urgency Code(s): I16.0 - HYPERTENSIVE URGENCY (8) Acute on chronic diastolic (congestive) heart failure Code(s): I50.33 - ACUTE ON CHRONIC DIASTOLIC (CONGESTIVE) HEART FAILURE (9) CAD (coronary artery disease) Code(s): I25.10 - ATHSCL HEART DISEASE OF [place] CORONARY ARTERY W/O ANG PCTRS Qualifiers: Coronary Disease-Associated Artery/Lesion type: [place] artery [place] vs. transplanted heart: [place] heart Associated angina: without angina Qualified Code(s): I25.10 - Atherosclerotic heart disease of [place] coronary artery without angina pectoris (10) CKD (chronic kidney disease) stage 3, GFR 30-59 ml/min Code(s): N18.3 - CHRONIC KIDNEY DISEASE, STAGE 3 (MODERATE) (11) COPD (chronic obstructive pulmonary disease) Code(s): J44.9 - CHRONIC OBSTRUCTIVE PULMONARY DISEASE, UNSPECIFIED Qualifiers: COPD type: unspecified COPD Qualified Code(s): J44.9 - Chronic obstructive pulmonary disease, unspecified (12) Cerebrovascular disease Code(s): I67.9 - CEREBROVASCULAR DISEASE, UNSPECIFIED (13) Diabetes Code(s): E11.9 - TYPE 2 DIABETES MELLITUS WITHOUT COMPLICATIONS Qualifiers: Diabetes mellitus type: type 2 (14) HTN (hypertension) Code(s): I10 - ESSENTIAL (PRIMARY) HYPERTENSION Qualifiers: Hypertension type: essential hypertension Qualified Code(s): I10 - Essential (primary) hypertension (15) Hyperlipidemia Code(s): E78.5 - HYPERLIPIDEMIA, UNSPECIFIED Qualifiers: Hyperlipidemia type: pure hypercholesterolemia Qualified Code(s): E78.00 - Pure hypercholesterolemia, unspecified Assessment/Plan 1. Acute on Chronic Diastolic Heart Failure with moderate - severe MR 2. Hypertensive urgency due to medication noncompliance 3. CAD and history of [place], PCI/stent with demand ischemia 4. PVC 5. COPD with h/o exacerbation 6. Hypercholesterolemia 7. DM 8. CKD 9. Substance abuse (Cocaine) 10. History of angioedema due to ACEI 11. TIA post right CEA, 50-69% left carotid 12. Anemia 13. 4.3 cm infrarenal AAA with mural thrombus PLAN: 1. Continue Lasix 40 mg IV BID and Spironolactone 50 mg BID with monitoring renal function and electrolytes 2. Continue Labetolol 400 mg TID, Hydralazine 100 mg TID, ASA 81 mg QD, Plavix 75 mg QD, Lipitor 80 mg QHS, Procardia XL 120 mg QD and Imdur 60 mg QD and uptitrate as tolerated 3. DVT prophylaxis with Lovenox 4. Bronchodilator, O2 to keep SpO2 >90% and cocaine cessation Nicholas Singletary MD
[2019-01-04] MEDS ORDERED: NITROGLYCERIN 50MG/D5W 250ML 50 MG/250 ML ML IVPB SCH (14:58)
--- NOTE | 2019-01-04 16:06 | PN ---
Physical Exam: SUBJECTIVE: Patient seen and examined, sitting in chair, in no acute distress. wants to go home. OBJECTIVE: patient is a 58 year old male, with a significant past medical history of HTN, HLD, DM, diastolic CHF, reduced EF, CAD (s/p [place] x3), right carotid stenosis (s/ p carotid endarterectomy 07/2018), COPD/asthma, complained of shortness of breath on admission. He is s/p heparin and nitro drip. will be transitioned out of the icu and going to telemetry today. remains on supplemental oxygen. Vital Signs Period Temp Pulse Resp BP Sys/Caal Pulse Ox Last 24 Hr 97.4 F-98.6 F 79-103 15-26 97-167/72-128 97-100 GENERAL: The patient is awake, alert, and fully oriented, in no acute distress. HEAD: Normal with no signs of trauma. EYES: PERRL, extraocular movements intact, sclera anicteric, conjunctiva clear. No ptosis. ENT: Ears normal, nares patent, oropharynx clear without exudates, moist mucous membranes. NECK: Trachea midline, full range of motion, supple. LUNGS: Breath sounds equal, clear to auscultation bilaterally. on supplemental oxygen HEART: Regular rate and rhythm, S1, S2 without murmur, rub or gallop. ABDOMEN: Soft, nontender, nondistended, normoactive bowel sounds, no guarding, no rebound, no hepatosplenomegaly, no masses. EXTREMITIES: 2+ bilateral lower ext edema. NEUROLOGICAL: Normal speech, gait not observed. PSYCH: Normal mood, normal affect. SKIN: Warm, dry, normal turgor, no rashes or lesions noted Laboratory Results - last 24 hr 01/03/19 01/03/19 01/03/19 13:14 16:43 21:53 WBC RBC Hgb Hct MCV MCH MCHC RDW Plt Count MPV PTT (Actin FS) Sodium Potassium Chloride Carbon Dioxide Anion Gap BUN Creatinine Est GFR (CKD-EPI)AfAm Est GFR (CKD-EPI)NonAf POC Glucometer 75 110 Random Glucose Calcium Total Bilirubin AST ALT Alkaline Phosphatase Total Protein Albumin Opiates Screen Negative Methadone Screen Negative Barbiturate Screen Negative Phencyclidine Screen Negative Ur Amphetamines Screen Negative MDMA (Ecstasy) Screen Negative Benzodiazepines Screen Negative Cocaine Screen Positive A* U Marijuana (THC) Screen Negative 01/04/19 01/04/19 01/04/19 05:40 05:40 05:40 WBC 9.9 RBC 3.53 L Hgb 10.6 L Hct 33.7 L MCV 95.2 MCH 30.1 MCHC 31.6 L RDW 17.2 H Plt Count 369 D MPV 7.6 PTT (Actin FS) 28.5 Sodium 140 Potassium 3.3 L Chloride 103 Carbon Dioxide 30 Anion Gap 6 L BUN 24.9 H Creatinine 1.2 Est GFR (CKD-EPI)AfAm 77.33 Est GFR (CKD-EPI)NonAf 66.72 POC Glucometer Random Glucose 89 Calcium 8.0 L Total Bilirubin 0.8 AST 143 H ALT 200 H Alkaline Phosphatase 218 H Total Protein 6.5 Albumin 2.8 L Opiates Screen Methadone Screen Barbiturate Screen Phencyclidine Screen Ur Amphetamines Screen MDMA (Ecstasy) Screen Benzodiazepines Screen Cocaine Screen U Marijuana (THC) Screen 01/04/19 01/04/19 06:36 11:10 WBC RBC Hgb Hct MCV MCH MCHC RDW Plt Count MPV PTT (Actin FS) Sodium Potassium Chloride Carbon Dioxide Anion Gap BUN Creatinine Est GFR (CKD-EPI)AfAm Est GFR (CKD-EPI)NonAf POC Glucometer 89 281 Random Glucose Calcium Total Bilirubin AST ALT Alkaline Phosphatase Total Protein Albumin Opiates Screen Methadone Screen Barbiturate Screen Phencyclidine Screen Ur Amphetamines Screen MDMA (Ecstasy) Screen Benzodiazepines Screen Cocaine Screen U Marijuana (THC) Screen Active Medications Generic Name Dose Route Start Last Admin Trade Name Freq PRN Reason Stop Dose Admin Aspirin 81 mg 01/05/19 10:00 Ecotrin - PO DAILY [facility] Atorvastatin Calcium 80 mg 01/04/19 22:00 Lipitor - PO HS [facility] Clopidogrel Bisulfate 75 mg 01/05/19 10:00 Plavix - PO DAILY [facility] Furosemide 40 mg 01/05/19 06:00 Lasix - PO BID@0600,1400 [facility] Heparin Sodium (Porcine) 5,000 unit 01/04/19 22:00 Heparin - SQ TID [facility] Hydralazine HCl 100 mg 01/04/19 22:00 Apresoline - PO TID [facility] Nitroglycerin/Dextrose 50 mg in 250 mls @ 3 mls/hr 01/04/19 14:58 Nitroglycerin 50mg/D5w 250ml IVPB TITR [facility] 10 MCG/MIN Insulin Aspart 1 vial 01/04/19 16:30 Novolog Vial Sliding Scale - SQ ACHS [facility] Protocol Insulin Detemir 10 units 01/04/19 22:00 Levemir Vial SQ HS [facility] Insulin Detemir 10 units 01/05/19 07:00 Levemir Vial SQ ACBK [facility] Isosorbide Mononitrate 60 mg 01/05/19 10:00 Imdur - PO DAILY [facility] Labetalol HCl 400 mg 01/04/19 22:00 Normodyne - PO TID [facility] Nifedipine 120 mg 01/05/19 10:00 Procardia Xl - PO DAILY [facility] Spironolactone 50 mg 01/04/19 22:00 Aldactone - PO BID [facility] ASSESSMENT/PLAN: Problem List - Problems (1) Diastolic CHF Assessment/Plan: elevated BNP, greater than previous admissions. Likely in the setting of medication non compliance and uncontrolled hypertension. Continue Lasix 40 mg po BID and Spironolactone 50 mg BID with monitoring diuretic response, renal function and electrolytes Code(s): I50.30 - UNSPECIFIED DIASTOLIC (CONGESTIVE) HEART FAILURE (2) Heart failure with reduced ejection fraction Assessment/Plan: monitor intake and output Code(s): I50.20 - UNSPECIFIED SYSTOLIC (CONGESTIVE) HEART FAILURE (3) Shortness of breath Assessment/Plan: resolved. on room air Code(s): R06.02 - SHORTNESS OF BREATH (4) [id number] kidney injury Assessment/Plan: monitor with daily labs Code(s): N17.9 - ACUTE KIDNEY FAILURE, UNSPECIFIED; N18.9 - CHRONIC KIDNEY DISEASE, UNSPECIFIED Qualifiers: Chronic kidney disease stage: stage 3 (moderate) (5) CHF exacerbation Code(s): I50.9 - HEART FAILURE, UNSPECIFIED Qualifiers: Heart failure type: diastolic Qualified Code(s): I50.33 - Acute on chronic diastolic (congestive) heart failure (6) Hypertensive urgency Assessment/Plan: poor compliance with medication continue Labetolol 400 tid, Hydralazine 100 mg TID, ASA 81 mg QD, Plavix 75 mg QD, Lipitor 80 mg QHS, Procardia XL 120 mg QD and Imdur 60 mg QD and uptitrate as tolerated Code(s): I16.0 - HYPERTENSIVE URGENCY (7) Acute on chronic diastolic (congestive) heart failure Code(s): I50.33 - ACUTE ON CHRONIC DIASTOLIC (CONGESTIVE) HEART FAILURE (8) Diabetes Code(s): E11.9 - TYPE 2 DIABETES MELLITUS WITHOUT COMPLICATIONS Qualifiers: Diabetes mellitus type: type 2 Visit type - Emergency Visit Emergency Visit: Yes ED Registration Date: 01/02/19 Care time: The patient presented to the Emergency Department on the above date and was hospitalized for further evaluation of their emergent condition. - New Patient This patient is new to me today: No - Critical Care Critical Care patient: No - Discharge Referral Referred to [facility] Med P.C.: No
[2019-01-04] MEDS: HEPARIN NA (PORCINE) 5,000 UNITS/ML 1ML VIAL SQ SCH (21:14)
[2019-01-04] MEDS: ATORVASTATIN CA 80 MG TABLET (FP) PO SCH (21:14)
[2019-01-04] MEDS: SPIRONOLACTONE 25 MG TABLET (FP) PO SCH (21:15)
[2019-01-04] MEDS: INSULIN (LEVEMIR) 100 UNITS/ML UNITS SQ SCH (21:18)
[2019-01-05] MEDS: FUROSEMIDE 40 MG TABLET (FP) PO SCH ×2 (05:49→15:54)
[2019-01-05] MEDS: LABETALOL HCL 200 MG TABLET (FP) PO SCH ×3 (05:49→22:14)
[2019-01-05] MEDS: hydrALAZINE HCL 50 MG TABLET (FP) PO SCH ×3 (05:49→22:37)
[2019-01-05] MEDS: HEPARIN NA (PORCINE) 5,000 UNITS/ML 1ML VIAL SQ SCH ×3 (05:50→22:14)
[2019-01-05] MEDS: INSULIN SLIDING SCALE (NOVOLOG) 1 VIAL SQ SCH ×4 (06:15→22:25)
[2019-01-05] MEDS: INSULIN (LEVEMIR) 100 UNITS/ML UNITS SQ SCH ×2 (06:16→22:21)
[2019-01-05 06:57] LABS: HEMATOCRIT 32.8 % (35.4-49); HEMOGLOBIN 10.4 GM/dL (11.7-16.9); MCHC 31.6 g/dl (32.0-35.9); MEAN CELL VOLUME 94.9 fl (80-96); MEAN PLT VOLUME 7.4 fl (7.5-11.1); PLATELET COUNT 359 K/MM3 (134-434); RBC 3.46 M/mm3 (4.00-5.60); RDW 16.6 % (11.9-15.9); WHITE BLOOD COUNT 9.1 K/mm3 (4.0-10.0)
[2019-01-05] MEDS: CLOPIDOGREL BISULFATE 75 MG TABLET (FP) PO SCH (11:09)
[2019-01-05] MEDS: NIFEdipine E.R 60 MG TABLET (UD) PO SCH (11:09)
[2019-01-05] MEDS: ASPIRIN COATED 81 MG TABLET.EC PO SCH (11:09)
[2019-01-05] MEDS: ISOSORBIDE MONONITRATE 30 MG TAB.SR.24H (FP) PO SCH (11:09)
[2019-01-05] MEDS: SPIRONOLACTONE 25 MG TABLET (FP) PO SCH ×2 (11:09→22:15)
--- NOTE | 2019-01-05 11:33 | PN ---
Progress Note, Physician History of Present Illness: Denies chest pain, SOB or palpitations, sitting in chair eating lunch. - Current Medication List Current Medications: Active Medications Aspirin (Ecotrin -) 81 mg PO DAILY [facility] Last Admin: 01/05/19 11:09 Dose: 81 mg Atorvastatin Calcium (Lipitor -) 80 mg PO HS [facility] Last Admin: 01/04/19 21:14 Dose: 80 mg Clopidogrel Bisulfate (Plavix -) 75 mg PO DAILY [facility] Last Admin: 01/05/19 11:09 Dose: 75 mg Furosemide (Lasix -) 40 mg PO BID@0600,1400 [facility] Last Admin: 01/05/19 05:49 Dose: 40 mg Heparin Sodium (Porcine) (Heparin -) 5,000 unit SQ TID [facility] Last Admin: 01/05/19 05:50 Dose: 5,000 unit Hydralazine HCl (Apresoline -) 100 mg PO TID [facility] Last Admin: 01/05/19 05:49 Dose: 100 mg Insulin Aspart (Novolog Vial Sliding Scale -) 1 vial SQ [facility]; Protocol Last Admin: 01/05/19 06:15 Dose: 4 units Insulin Detemir (Levemir Vial) 10 units SQ HS [facility] Last Admin: 01/04/19 21:18 Dose: 10 units Insulin Detemir (Levemir Vial) 10 units SQ ACBK [facility] Last Admin: 01/05/19 06:16 Dose: 10 units Isosorbide Mononitrate (Imdur -) 60 mg PO DAILY [facility] Last Admin: 01/05/19 11:09 Dose: 60 mg Labetalol HCl (Normodyne -) 400 mg PO TID [facility] Last Admin: 01/05/19 05:49 Dose: 400 mg Nifedipine (Procardia Xl -) 120 mg PO DAILY [facility] Last Admin: 01/05/19 11:09 Dose: 120 mg Spironolactone (Aldactone -) 50 mg PO BID [facility] Last Admin: 01/05/19 11:09 Dose: 50 mg - Objective Vital Signs: Vital Signs Temperature 97 F L 01/05/19 05:50 Pulse Rate 81 01/05/19 05:50 Respiratory Rate 20 01/05/19 05:50 Blood Pressure 147/104 H 01/05/19 05:50 O2 Sat by Pulse Oximetry (%) 96 01/04/19 21:00 Constitutional: Yes: No Distress, Calm Neck: Yes: Supple Cardiovascular: Yes: Regular Rate and Rhythm, Murmur (2/6 SM) Respiratory: Yes: Regular, Diminished Gastrointestinal: Yes: Normal Bowel Sounds, Soft Edema: Yes Edema: LLE: 1+, RLE: 1+ Labs: CBC, BMP 01/05/19 06:25 01/04/19 05:40 INR, PTT INR 1.25 (0.83-1.09) H 01/02/19 14:53 - ....Imaging EKG: Report Reviewed (Tele: NSR occ PVC) Problem List - Problems (1) Diastolic CHF Code(s): I50.30 - UNSPECIFIED DIASTOLIC (CONGESTIVE) HEART FAILURE (2) CHF exacerbation Code(s): I50.9 - HEART FAILURE, UNSPECIFIED Qualifiers: Heart failure type: diastolic Qualified Code(s): I50.33 - Acute on chronic diastolic (congestive) heart failure (3) Shortness of breath Code(s): R06.02 - SHORTNESS OF BREATH (4) Acute on chronic diastolic (congestive) heart failure Code(s): I50.33 - ACUTE ON CHRONIC DIASTOLIC (CONGESTIVE) HEART FAILURE (5) CAD (coronary artery disease) Code(s): I25.10 - ATHSCL HEART DISEASE OF [place] CORONARY ARTERY W/O ANG PCTRS Qualifiers: Coronary Disease-Associated Artery/Lesion type: [place] artery [place] vs. transplanted heart: [place] heart Associated angina: without angina Qualified Code(s): I25.10 - Atherosclerotic heart disease of [place] coronary artery without angina pectoris (6) CKD (chronic kidney disease) stage 3, GFR 30-59 ml/min Code(s): N18.3 - CHRONIC KIDNEY DISEASE, STAGE 3 (MODERATE) (7) Cerebrovascular disease Code(s): I67.9 - CEREBROVASCULAR DISEASE, UNSPECIFIED (8) Diabetic nephropathy associated with type 2 diabetes mellitus Code(s): E11.21 - TYPE 2 DIABETES MELLITUS WITH DIABETIC NEPHROPATHY (9) HTN (hypertension) Code(s): I10 - ESSENTIAL (PRIMARY) HYPERTENSION Qualifiers: Hypertension type: essential hypertension Qualified Code(s): I10 - Essential (primary) hypertension (10) History of myocardial infarction Code(s): I25.2 - OLD MYOCARDIAL INFARCTION (11) Hyperglycemia due to type 2 diabetes mellitus Code(s): E11.65 - TYPE 2 DIABETES MELLITUS WITH HYPERGLYCEMIA Qualifiers: Diabetes mellitus fpc insulin use: without fpc use Qualified Code(s): E11.65 - Type 2 diabetes mellitus with hyperglycemia (12) Hyperlipidemia Code(s): E78.5 - HYPERLIPIDEMIA, UNSPECIFIED Qualifiers: Hyperlipidemia type: pure hypercholesterolemia Qualified Code(s): E78.00 - Pure hypercholesterolemia, unspecified (13) Carotid artery stenosis with cerebral infarction Code(s): I63.239 - CEREB INFRC DUE TO UNSP OCCLS OR STENOS OF UNSP CRTD ARTERY (14) Hypertensive emergency Code(s): I10 - ESSENTIAL (PRIMARY) HYPERTENSION Assessment/Plan 01/03/2019 Echo: Mildly dilated, mild cLVH, low normal LVEF 50-55%, normal RV fxn, mild SHAHANA, mod-severe MR, mild-mod TR RVSP 58 mmHg, mild AR, MO 12/02/2018 Mri of brain: No acute stroke, old right posterior temporal cortical infarct 12/02/2018 Carotid ultrasound should left moderate stenosis and vacular surgery consult pending 12/02/2018 Echo: Normal LV size and fxn with mod cLVH, normal RV size and fxn, mild SHAHANA, mild MR, TR, AR 12/01/2018 Ct head right 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 Acute on Chronic Diastolic Heart Failure with mod-severe MR 2. Hypertensive urgency due to medication noncompliance 3. CAD and history of RI, PCI/stent with demand ischemia 4. PVC 5. COPD with h/o exacerbation 6. Hypercholesterolemia 7. DM 8. CKD 9. Substance abuse (Cocaine) 10. History of angioedema due to ACEI 11. TIA post right CEA, 50-69% left carotid 12. Anemia 13. 4.3 cm infrarenal AAA with mural thrombus 14. Abnl LFTs 2/2 hepatic congestion resolving PLAN: 1. Continue Lasix 40 mg po BID and Spironolactone 50 mg BID with monitoring diuretic response, renal function and electrolytes, replete K 2. Continue Labetolol 400 tid, Hydralazine 100 mg TID, ASA 81 mg QD, Plavix 75 mg QD, Lipitor 80 mg QHS, Procardia XL 120 mg QD and Imdur 60 mg QD and uptitrate as tolerated 3. DVT prophylaxis 4. Bronchodilator, O2 to keep SpO2 >90%, cocaine cessation 5. D/c planning, emphasized importance of medication and diet compliance
[2019-01-05 12:27] LABS: ALBUMIN 2.9 g/dl (3.4-5.0); BILIRUBIN,TOTAL 1.2 mg/dL (0.2-1); BLOOD UREA NITROGEN 25.6 mg/dL (7-18); CALCIUM 8.4 mg/dL (8.5-10.1); CREATININE 1.4 mg/dL (0.55-1.3); MAGNESIUM 1.8 mg/dL (1.8-2.4); POTASSIUM 3.7 mmol/L (3.5-5.1); TOT PROT 6.3 g/dl (6.4-8.2)
--- NOTE | 2019-01-05 13:12 | PN ---
Physical Exam: SUBJECTIVE: Patient seen and examined OBJECTIVE: Vital Signs Period Temp Pulse Resp BP Sys/Caal Pulse Ox Last 24 Hr 97 F-98.2 F 74-83 18-24 97-149/61-104 96 GENERAL: The patient is awake, alert, and fully oriented, in no acute distress. HEAD: Normal with no signs of trauma. EYES: PERRL, extraocular movements intact, sclera anicteric, conjunctiva clear. No ptosis. ENT: Ears normal, nares patent, oropharynx clear without exudates, moist mucous membranes. NECK: Trachea midline, full range of motion, supple. LUNGS: Breath sounds equal, clear to auscultation bilaterally, no wheezes, no crackles, no accessory muscle use. HEART: Regular rate and rhythm, S1, S2 without murmur, rub or gallop. ABDOMEN: Soft, nontender, nondistended, normoactive bowel sounds, no guarding, no rebound, no hepatosplenomegaly, no masses. EXTREMITIES: 2+ pulses, warm, well-perfused, no edema. NEUROLOGICAL: Cranial nerves II through XII grossly intact. Normal speech, gait not observed. PSYCH: Normal mood, normal affect. SKIN: Warm, dry, normal turgor, no rashes or lesions noted Laboratory Results - last 24 hr 01/04/19 01/04/19 01/05/19 16:55 20:57 06:04 WBC RBC Hgb Hct MCV MCH MCHC RDW Plt Count MPV PTT (Actin FS) Sodium Potassium Chloride Carbon Dioxide Anion Gap BUN Creatinine Est GFR (CKD-EPI)AfAm Est GFR (CKD-EPI)NonAf POC Glucometer 279 323 212 Random Glucose Calcium Magnesium Total Bilirubin AST ALT Alkaline Phosphatase Total Protein Albumin 01/05/19 01/05/19 01/05/19 06:25 06:25 06:25 WBC 9.1 RBC 3.46 L Hgb 10.4 L Hct 32.8 L MCV 94.9 MCH 30.0 MCHC 31.6 L RDW 16.6 H Plt Count 359 MPV 7.4 L PTT (Actin FS) 33.1 Sodium 136 Potassium 3.7 Chloride 101 Carbon Dioxide 29 Anion Gap 6 L BUN 25.6 H Creatinine 1.4 H Est GFR (CKD-EPI)AfAm 64.18 Est GFR (CKD-EPI)NonAf 55.38 POC Glucometer Random Glucose 215 H Calcium 8.4 L Magnesium 1.8 Total Bilirubin 1.2 H AST 184 H ALT 256 H Alkaline Phosphatase 222 H Total Protein 6.3 L Albumin 2.9 L 01/05/19 12:10 WBC RBC Hgb Hct MCV MCH MCHC RDW Plt Count MPV PTT (Actin FS) Sodium Potassium Chloride Carbon Dioxide Anion Gap BUN Creatinine Est GFR (CKD-EPI)AfAm Est GFR (CKD-EPI)NonAf POC Glucometer 243 Random Glucose Calcium Magnesium Total Bilirubin AST ALT Alkaline Phosphatase Total Protein Albumin Active Medications Generic Name Dose Route Start Last Admin Trade Name Freq PRN Reason Stop Dose Admin Aspirin 81 mg 01/05/19 10:00 01/05/19 11:09 Ecotrin - PO 81 mg DAILY [facility] Administration Atorvastatin Calcium 80 mg 01/04/19 22:00 01/04/19 21:14 Lipitor - PO 80 mg HS [facility] Administration Clopidogrel Bisulfate 75 mg 01/05/19 10:00 01/05/19 11:09 Plavix - PO 75 mg DAILY [facility] Administration Furosemide 40 mg 01/05/19 06:00 01/05/19 05:49 Lasix - PO 40 mg BID@0600,1400 [facility] Administration Heparin Sodium (Porcine) 5,000 unit 01/04/19 22:00 01/05/19 05:50 Heparin - SQ 5,000 unit TID [facility] Administration Hydralazine HCl 100 mg 01/04/19 22:00 01/05/19 05:49 Apresoline - PO 100 mg TID [facility] Administration Insulin Aspart 1 vial 01/04/19 16:30 01/05/19 12:19 Novolog Vial Sliding Scale - SQ 4 units ACHS [facility] Administration Protocol Insulin Detemir 10 units 01/04/19 22:00 01/04/19 21:18 Levemir Vial SQ 10 units HS [facility] Administration Insulin Detemir 10 units 01/05/19 07:00 01/05/19 06:16 Levemir Vial SQ 10 units ACBK [facility] Administration Isosorbide Mononitrate 60 mg 01/05/19 10:00 01/05/19 11:09 Imdur - PO 60 mg DAILY [facility] Administration Labetalol HCl 400 mg 01/04/19 22:00 01/05/19 05:49 Normodyne - PO 400 mg TID [facility] Administration Nifedipine 120 mg 01/05/19 10:00 01/05/19 11:09 Procardia Xl - PO 120 mg DAILY [facility] Administration Spironolactone 50 mg 01/04/19 22:00 01/05/19 11:09 Aldactone - PO 50 mg BID [facility] Administration ASSESSMENT/PLAN:
--- NOTE | 2019-01-05 18:42 | PN ---
Physical Exam: SUBJECTIVE: Patient seen and examined OBJECTIVE: patient is a 58 year old male, with a significant past medical history of HTN, HLD, DM, diastolic CHF, reduced EF, CAD (s/p [place] x3), right carotid stenosis (s/ p carotid endarterectomy 07/2018), COPD/asthma, complained of shortness of breath on admission. He is s/p heparin and nitro drip. will be transitioned out of the icu and going to telemetry today. on room air, pre and post prior to dc anticipate d/c tomorrow 01/06/19 Vital Signs Period Temp Pulse Resp BP Sys/Caal Pulse Ox Last 24 Hr 97 F-98.2 F 80-84 18-20 123-149/61-104 96-100 GENERAL: The patient is awake, alert, and fully oriented, in no acute distress. HEAD: Normal with no signs of trauma. EYES: PERRL, extraocular movements intact, sclera anicteric, conjunctiva clear. No ptosis. ENT: Ears normal, nares patent, oropharynx clear without exudates, moist mucous membranes. NECK: Trachea midline, full range of motion, supple. LUNGS: Breath sounds equal, clear to auscultation bilaterally. on supplemental oxygen HEART: Regular rate and rhythm, S1, S2 without murmur, rub or gallop. ABDOMEN: Soft, nontender, nondistended, normoactive bowel sounds, no guarding, no rebound, no hepatosplenomegaly, no masses. EXTREMITIES: 2+ bilateral lower ext edema. NEUROLOGICAL: Normal speech, gait not observed. PSYCH: Normal mood, normal affect. SKIN: Warm, dry, normal turgor, no rashes or lesions noted Laboratory Results - last 24 hr 01/04/19 01/05/19 01/05/19 20:57 06:04 06:25 WBC 9.1 RBC 3.46 L Hgb 10.4 L Hct 32.8 L MCV 94.9 MCH 30.0 MCHC 31.6 L RDW 16.6 H Plt Count 359 MPV 7.4 L PTT (Actin FS) Sodium Potassium Chloride Carbon Dioxide Anion Gap BUN Creatinine Est GFR (CKD-EPI)AfAm Est GFR (CKD-EPI)NonAf POC Glucometer 323 212 Random Glucose Calcium Magnesium Total Bilirubin AST ALT Alkaline Phosphatase Total Protein Albumin 01/05/19 01/05/19 01/05/19 06:25 06:25 12:10 WBC RBC Hgb Hct MCV MCH MCHC RDW Plt Count MPV PTT (Actin FS) 33.1 Sodium 136 Potassium 3.7 Chloride 101 Carbon Dioxide 29 Anion Gap 6 L BUN 25.6 H Creatinine 1.4 H Est GFR (CKD-EPI)AfAm 64.18 Est GFR (CKD-EPI)NonAf 55.38 POC Glucometer 243 Random Glucose 215 H Calcium 8.4 L Magnesium 1.8 Total Bilirubin 1.2 H AST 184 H ALT 256 H Alkaline Phosphatase 222 H Total Protein 6.3 L Albumin 2.9 L 01/05/19 17:20 WBC RBC Hgb Hct MCV MCH MCHC RDW Plt Count MPV PTT (Actin FS) Sodium Potassium Chloride Carbon Dioxide Anion Gap BUN Creatinine Est GFR (CKD-EPI)AfAm Est GFR (CKD-EPI)NonAf POC Glucometer 175 Random Glucose Calcium Magnesium Total Bilirubin AST ALT Alkaline Phosphatase Total Protein Albumin Active Medications Generic Name Dose Route Start Last Admin Trade Name Freq PRN Reason Stop Dose Admin Aspirin 81 mg 01/05/19 10:00 01/05/19 11:09 Ecotrin - PO 81 mg DAILY [facility] Administration Atorvastatin Calcium 80 mg 01/04/19 22:00 01/04/19 21:14 Lipitor - PO 80 mg HS [facility] Administration Clopidogrel Bisulfate 75 mg 01/05/19 10:00 01/05/19 11:09 Plavix - PO 75 mg DAILY [facility] Administration Furosemide 40 mg 01/05/19 06:00 01/05/19 15:54 Lasix - PO 40 mg BID@0600,1400 [facility] Administration Heparin Sodium (Porcine) 5,000 unit 01/04/19 22:00 01/05/19 15:54 Heparin - SQ 5,000 unit TID [facility] Administration Hydralazine HCl 100 mg 01/04/19 22:00 01/05/19 15:54 Apresoline - PO 100 mg TID [facility] Administration Insulin Aspart 1 vial 01/04/19 16:30 01/05/19 17:51 Novolog Vial Sliding Scale - SQ 2 units ACHS [facility] Administration Protocol Insulin Detemir 10 units 01/04/19 22:00 01/04/19 21:18 Levemir Vial SQ 10 units HS [facility] Administration Insulin Detemir 10 units 01/05/19 07:00 01/05/19 06:16 Levemir Vial SQ 10 units ACBK [facility] Administration Isosorbide Mononitrate 60 mg 01/05/19 10:00 01/05/19 11:09 Imdur - PO 60 mg DAILY [facility] Administration Labetalol HCl 400 mg 01/04/19 22:00 01/05/19 15:54 Normodyne - PO 400 mg TID [facility] Administration Nifedipine 120 mg 01/05/19 10:00 01/05/19 11:09 Procardia Xl - PO 120 mg DAILY [facility] Administration Spironolactone 50 mg 01/04/19 22:00 01/05/19 11:09 Aldactone - PO 50 mg BID [facility] Administration ASSESSMENT/PLAN: Problem List - Problems (1) Diastolic CHF Assessment/Plan: elevated BNP, greater than previous admissions. Likely in the setting of medication non compliance and uncontrolled hypertension. Continue Lasix 40 mg po BID and Spironolactone 50 mg BID with monitoring diuretic response, renal function and electrolytes Code(s): I50.30 - UNSPECIFIED DIASTOLIC (CONGESTIVE) HEART FAILURE (2) Heart failure with reduced ejection fraction Assessment/Plan: monitor intake and output Code(s): I50.20 - UNSPECIFIED SYSTOLIC (CONGESTIVE) HEART FAILURE (3) Shortness of breath Assessment/Plan: resolved. on room air Code(s): R06.02 - SHORTNESS OF BREATH (4) [id number] kidney injury Assessment/Plan: monitor with daily labs Code(s): N17.9 - ACUTE KIDNEY FAILURE, UNSPECIFIED; N18.9 - CHRONIC KIDNEY DISEASE, UNSPECIFIED Qualifiers: Chronic kidney disease stage: stage 3 (moderate) (5) CHF exacerbation Code(s): I50.9 - HEART FAILURE, UNSPECIFIED Qualifiers: Heart failure type: diastolic Qualified Code(s): I50.33 - Acute on chronic diastolic (congestive) heart failure (6) Hypertensive urgency Assessment/Plan: poor compliance with medication continue Labetolol 400 tid, Hydralazine 100 mg TID, ASA 81 mg QD, Plavix 75 mg QD, Lipitor 80 mg QHS, Procardia XL 120 mg QD and Imdur 60 mg QD and uptitrate as tolerated Code(s): I16.0 - HYPERTENSIVE URGENCY (7) Acute on chronic diastolic (congestive) heart failure Code(s): I50.33 - ACUTE ON CHRONIC DIASTOLIC (CONGESTIVE) HEART FAILURE (8) Diabetes Code(s): E11.9 - TYPE 2 DIABETES MELLITUS WITHOUT COMPLICATIONS Qualifiers: Diabetes mellitus type: type 2 Visit type - Emergency Visit Emergency Visit: Yes ED Registration Date: 01/02/19 Care time: The patient presented to the Emergency Department on the above date and was hospitalized for further evaluation of their emergent condition. - New Patient This patient is new to me today: No - Critical Care Critical Care patient: No - Discharge Referral [facility]erred to [facility] Med P.C.: No
[2019-01-05] MEDS: ATORVASTATIN CA 80 MG TABLET (FP) PO SCH (22:14)
[2019-01-06] MEDS: FUROSEMIDE 40 MG TABLET (FP) PO SCH (06:32)
[2019-01-06] MEDS: hydrALAZINE HCL 50 MG TABLET (FP) PO SCH (06:32)
[2019-01-06] MEDS: LABETALOL HCL 200 MG TABLET (FP) PO SCH (06:33)
[2019-01-06] MEDS: HEPARIN NA (PORCINE) 5,000 UNITS/ML 1ML VIAL SQ SCH (06:33)
[2019-01-06] MEDS: INSULIN SLIDING SCALE (NOVOLOG) 1 VIAL SQ SCH ×2 (06:35→11:36)
[2019-01-06] MEDS: INSULIN (LEVEMIR) 100 UNITS/ML UNITS SQ SCH (06:39)
[2019-01-06 06:54] LABS: HEMATOCRIT 30.9 % (35.4-49); MCH 30.6 pg (25.7-33.7); MCHC 32.2 g/dl (32.0-35.9); MEAN CELL VOLUME 94.9 fl (80-96); PLATELET COUNT 336 K/MM3 (134-434); RBC 3.26 M/mm3 (4.00-5.60); RDW 16.3 % (11.9-15.9); WHITE BLOOD COUNT 8.2 K/mm3 (4.0-10.0)
[2019-01-06 09:02] LABS: ALBUMIN 2.6 g/dl (3.4-5.0); BILIRUBIN,TOTAL 0.8 mg/dL (0.2-1); BLOOD UREA NITROGEN 23.8 mg/dL (7-18); CALCIUM 8.3 mg/dL (8.5-10.1); CREATININE 1.3 mg/dL (0.55-1.3); POTASSIUM 4.1 mmol/L (3.5-5.1)
[2019-01-06 09:09] VITALS: BP 152/81; PULSE 83; TEMP 97.8
[2019-01-06] MEDS: NIFEdipine E.R 60 MG TABLET (UD) PO SCH (09:09)
[2019-01-06] MEDS: SPIRONOLACTONE 25 MG TABLET (FP) PO SCH (09:09)
[2019-01-06] MEDS: ISOSORBIDE MONONITRATE 30 MG TAB.SR.24H (FP) PO SCH (09:10)
[2019-01-06] MEDS: CLOPIDOGREL BISULFATE 75 MG TABLET (FP) PO SCH (09:10)
[2019-01-06] MEDS: ASPIRIN COATED 81 MG TABLET.EC PO SCH (09:10)
--- NOTE | 2019-01-06 09:56 | PN ---
Progress Note, Physician History of Present Illness: Denies chest pain, SOB or palpitations, ready to return home. - Current Medication List Current Medications: Active Medications Aspirin (Ecotrin -) 81 mg PO DAILY [facility] Last Admin: 01/06/19 09:10 Dose: 81 mg Atorvastatin Calcium (Lipitor -) 80 mg PO HS [facility] Last Admin: 01/05/19 22:14 Dose: 80 mg Clopidogrel Bisulfate (Plavix -) 75 mg PO DAILY [facility] Last Admin: 01/06/19 09:10 Dose: 75 mg Furosemide (Lasix -) 40 mg PO BID@0600,1400 [facility] Last Admin: 01/06/19 06:32 Dose: 40 mg Heparin Sodium (Porcine) (Heparin -) 5,000 unit SQ TID [facility] Last Admin: 01/06/19 06:33 Dose: 5,000 unit Hydralazine HCl (Apresoline -) 100 mg PO TID [facility] Last Admin: 01/06/19 06:32 Dose: 100 mg Insulin Aspart (Novolog Vial Sliding Scale -) 1 vial SQ [facility]; Protocol Last Admin: 01/06/19 06:35 Dose: 4 units Insulin Detemir (Levemir Vial) 10 units SQ HS [facility] Last Admin: 01/05/19 22:21 Dose: 10 units Insulin Detemir (Levemir Vial) 10 units SQ ACBK [facility] Last Admin: 01/06/19 06:39 Dose: 10 units Isosorbide Mononitrate (Imdur -) 60 mg PO DAILY [facility] Last Admin: 01/06/19 09:10 Dose: 60 mg Labetalol HCl (Normodyne -) 400 mg PO TID [facility] Last Admin: 01/06/19 06:33 Dose: 400 mg Nifedipine (Procardia Xl -) 120 mg PO DAILY [facility] Last Admin: 01/06/19 09:09 Dose: 120 mg Spironolactone (Aldactone -) 50 mg PO BID [facility] Last Admin: 01/06/19 09:09 Dose: 50 mg - Objective Vital Signs: Vital Signs Temperature 97.8 F 01/06/19 09:07 Pulse Rate 83 01/06/19 09:07 Respiratory Rate 16 01/06/19 09:07 Blood Pressure 152/81 01/06/19 09:07 O2 Sat by Pulse Oximetry (%) 97 01/06/19 08:55 Constitutional: Yes: No Distress, Calm Neck: Yes: Supple Cardiovascular: Yes: Regular Rate and Rhythm Respiratory: Yes: Regular, CTA Bilaterally Gastrointestinal: Yes: Normal Bowel Sounds, Soft Edema: Yes Edema: LLE: 1+, RLE: 1+ Labs: CBC, BMP 01/06/19 06:40 01/06/19 06:40 INR, PTT INR 1.25 (0.83-1.09) H 01/02/19 14:53 Problem List - Problems (1) Diastolic CHF Code(s): I50.30 - UNSPECIFIED DIASTOLIC (CONGESTIVE) HEART FAILURE (2) CHF exacerbation Code(s): I50.9 - HEART FAILURE, UNSPECIFIED Qualifiers: Heart failure type: diastolic Qualified Code(s): I50.33 - Acute on chronic diastolic (congestive) heart failure (3) Shortness of breath Code(s): R06.02 - SHORTNESS OF BREATH (4) Acute on chronic diastolic (congestive) heart failure Code(s): I50.33 - ACUTE ON CHRONIC DIASTOLIC (CONGESTIVE) HEART FAILURE (5) CAD (coronary artery disease) Code(s): I25.10 - ATHSCL HEART DISEASE OF [place] CORONARY ARTERY W/O ANG PCTRS Qualifiers: Coronary Disease-Associated Artery/Lesion type: [place] artery [place] vs. transplanted heart: [place] heart Associated angina: without angina Qualified Code(s): I25.10 - Atherosclerotic heart disease of [place] coronary artery without angina pectoris (6) CKD (chronic kidney disease) stage 3, GFR 30-59 ml/min Code(s): N18.3 - CHRONIC KIDNEY DISEASE, STAGE 3 (MODERATE) (7) Cerebrovascular disease Code(s): I67.9 - CEREBROVASCULAR DISEASE, UNSPECIFIED (8) Diabetic nephropathy associated with type 2 diabetes mellitus Code(s): E11.21 - TYPE 2 DIABETES MELLITUS WITH DIABETIC NEPHROPATHY (9) HTN (hypertension) Code(s): I10 - ESSENTIAL (PRIMARY) HYPERTENSION Qualifiers: Hypertension type: essential hypertension Qualified Code(s): I10 - Essential (primary) hypertension (10) History of myocardial infarction Code(s): I25.2 - OLD MYOCARDIAL INFARCTION (11) Hyperglycemia due to type 2 diabetes mellitus Code(s): E11.65 - TYPE 2 DIABETES MELLITUS WITH HYPERGLYCEMIA Qualifiers: Diabetes mellitus intermediate insulin use: without intermission coordinator use Qualified Code(s): E11.65 - Type 2 diabetes mellitus with hyperglycemia (12) Hyperlipidemia Code(s): E78.5 - HYPERLIPIDEMIA, UNSPECIFIED Qualifiers: Hyperlipidemia type: pure hypercholesterolemia Qualified Code(s): E78.00 - Pure hypercholesterolemia, unspecified (13) Carotid artery stenosis with cerebral infarction Code(s): I63.239 - CEREB INFRC DUE TO UNSP OCCLS OR STENOS OF UNSP CRTD ARTERY (14) Hypertensive emergency Code(s): I10 - ESSENTIAL (PRIMARY) HYPERTENSION Assessment/Plan 01/03/2019 Echo: Mildly dilated, mild cLVH, low normal LVEF 50-55%, normal RV fxn, mild SHAHANA, mod-severe MR, mild-mod TR RVSP 58 mmHg, mild [place], [place] 12/02/2018 Mri of brain: No acute stroke, old right posterior temporal cortical infarct 12/02/2018 Carotid ultrasound should left moderate stenosis and vacular surgery consult pending 12/02/2018 Echo: Normal LV size and fxn with mod cLVH, normal RV size and fxn, mild SHAHANA, mild MR, TR, [place] 12/01/2018 Ct head right 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 Acute on Chronic Diastolic Heart Failure with mod-severe MR 2. Hypertensive urgency due to medication noncompliance 3. CAD and history of DE, PCI/stent with demand ischemia 4. PVC 5. COPD with h/o exacerbation 6. Hypercholesterolemia 7. DM 8. CKD 9. Substance abuse (Cocaine) 10. History of angioedema due to ACEI 11. TIA post right CEA, 50-69% left carotid 12. Anemia 13. 4.3 cm infrarenal AAA with mural thrombus 14. Abnl LFTs 2/2 hepatic congestion resolving PLAN: 1. Continue Lasix 40 mg po BID and Spironolactone 50 mg BID with monitoring diuretic response, renal function and electrolytes, replete K 2. Continue Labetolol 400 tid, Hydralazine 100 mg TID, ASA 81 mg QD, Plavix 75 mg QD, Lipitor 80 mg QHS, Procardia XL 120 mg QD and Imdur 60 mg QD and uptitrate as tolerated 3. DVT prophylaxis 4. Bronchodilator, O2 to keep SpO2 >90%, cocaine cessation 5. D/c planning, emphasized importance of medication and diet compliance, f/u in office
--- NOTE | 2019-01-06 12:25 | DS ---
Physical Exam: SUBJECTIVE: Patient seen and examined. no chest pain, no shortness of breath. OBJECTIVE: patient is a 58 year old male, with a significant past medical history of HTN, HLD, DM, diastolic CHF, reduced EF, CAD (s/p ND x3), right carotid stenosis (s/ p carotid endarterectomy 07/2018), COPD/asthma, complained of shortness of breath on admission. He is s/p heparin and nitro drip and now on tele. has been cleared for d/c home by cardiology. Importance of medication compliance discussed with patient and all medications called into his pharmacy. Vital Signs Period Temp Pulse Resp BP Sys/Caal Pulse Ox Last 24 Hr 97.6 F-97.9 F 83-88 16-18 123-152/76-88 96-97 PHYSICAL EXAM GENERAL: The patient is awake, alert, and fully oriented, in no acute distress. HEAD: Normal with no signs of trauma. EYES: PERRL, extraocular movements intact, sclera anicteric, conjunctiva clear. No ptosis. ENT: Ears normal, nares patent, oropharynx clear without exudates, moist mucous membranes. NECK: Trachea midline, full range of motion, supple. LUNGS: Breath sounds equal, clear to auscultation bilaterally. on supplemental oxygen HEART: Regular rate and rhythm, S1, S2 without murmur, rub or gallop. ABDOMEN: Soft, nontender, nondistended, normoactive bowel sounds, no guarding, no rebound, no hepatosplenomegaly, no masses. EXTREMITIES: 2+ bilateral lower ext edema. NEUROLOGICAL: Normal speech, gait not observed. PSYCH: Normal mood, normal affect. SKIN: Warm, dry, normal turgor, no rashes or lesions noted LABS Laboratory Results - last 24 hr 01/05/19 01/05/19 01/05/19 06:25 17:20 20:57 WBC RBC Hgb Hct MCV MCH MCHC RDW Plt Count MPV PTT (Actin FS) Sodium 136 Potassium 3.7 Chloride 101 Carbon Dioxide 29 Anion Gap 6 L BUN 25.6 H Creatinine 1.4 H Est GFR (CKD-EPI)AfAm 64.18 Est GFR (CKD-EPI)NonAf 55.38 POC Glucometer 175 267 Random Glucose 215 H Calcium 8.4 L Magnesium 1.8 Total Bilirubin 1.2 H AST 184 H ALT 256 H Alkaline Phosphatase 222 H Total Protein 6.3 L Albumin 2.9 L 01/06/19 01/06/19 01/06/19 06:04 06:40 06:40 WBC 8.2 RBC 3.26 L Hgb 10.0 L Hct 30.9 L MCV 94.9 MCH 30.6 MCHC 32.2 RDW 16.3 H Plt Count 336 MPV 7.0 L PTT (Actin FS) 29.6 Sodium Potassium Chloride Carbon Dioxide Anion Gap BUN Creatinine Est GFR (CKD-EPI)AfAm Est GFR (CKD-EPI)NonAf POC Glucometer 231 Random Glucose Calcium Magnesium Total Bilirubin AST ALT Alkaline Phosphatase Total Protein Albumin 01/06/19 01/06/19 06:40 11:29 WBC RBC Hgb Hct MCV MCH MCHC RDW Plt Count MPV PTT (Actin FS) Sodium 136 Potassium 4.1 Chloride 102 Carbon Dioxide 29 Anion Gap 5 L BUN 23.8 H Creatinine 1.3 Est GFR (CKD-EPI)AfAm 70.20 Est GFR (CKD-EPI)NonAf 60.57 POC Glucometer 175 Random Glucose 233 H Calcium 8.3 L Magnesium Total Bilirubin 0.8 AST 91 H ALT 186 H Alkaline Phosphatase 186 H Total Protein 6.0 L Albumin 2.6 L HOSPITAL COURSE: Date of Admission:01/02/19 Date of Discharge: 01/06/19 Minutes to complete discharge: 60 Discharge Summary Problems reviewed: Yes Reason For Visit: SHORTNESS OF BREATH Current Active Problems Carotid stenosis (Acute) Diastolic CHF (Acute) Heart failure with reduced ejection fraction (Acute) Shortness of breath (Acute) Condition: Stable - Instructions Diet, Activity, Other Instructions: Please follow up with the following doctors within 1 week of discharge from the hospital: - Dr. Esquivel, your PCP, within 1 week. - Dr. Ro, the special delivery mail carrier who saw you in the hospital to follow up on your blood pressure medications, heart failure medications, and other cardiac problems including the plaque in your right carotid artery and the abdominal aortic aneurysm you have. It is very important for you to control your blood pressure carefully. follow up with Dr Johnson regarding your aneurysm in abdominal aorta follow up with Dr. Gilmore , kidney doctor PLEASE AVOID COCAINE USE IT INCREASED YOUR BLOOD PRESSURE TO DANGEROUSLY HIGH LEVELS THAT CAN CAUSE MEDICATIONS: Continue Lasix 40 mg po twice per day Spironolactone 50 mg twice per day Labetalol 400mg THREE times per day 8am, 3pm and 8pm Hydralazine 100 mg THREE 8am, 3pm and 8pm ASA 81 mg DAILY Plavix 75 mg DAILY Lipitor 80 mg AT BEDTIME Procardia XL 120 mg DAILY Imdur 60 mg daily Referrals: Lenny Hernandez MD [Staff Physician] - 1 Week Rajeev Johnson DO [Staff Physician] - David Gilmore MD [Staff Physician] - Nils Ro MD [Staff Physician] - 1 Week Disposition: HOME - Home Medications Comprehensive Discharge Medication List: Ambulatory Orders Hydralazine HCl 100 mg PO TID 08/09/18 Clopidogrel Bisulfate [Plavix] 75 mg PO DAILY 10/19/18 Albuterol 0.083% Nebulizer Jane [Ventolin 0.083% Nebulizer Soln -] 1 amp NEB Q4H #10 amp 11/01/18 Aspirin Coated [Ecotrin -] 81 mg PO DAILY tablet.ec 11/04/18 Insulin (Levemir) [Levemir Vial] 30 units SQ 0700,2200 units 11/04/18 Insulin Sliding Scale [Novolog Vial Sliding Scale -] 1 vial SQ ACHS units 11/04 Sitagliptin Phosphate [Januvia -] 25 mg PO DAILY@0700 #30 tab 11/04/18 Atorvastatin Ca [Lipitor] 80 mg PO HS #30 tablet 12/08/18 Furosemide [Lasix -] 40 mg PO BID@0600,1400 #60 tablet 12/08/18 Isosorbide Mononitrate [Imdur -] 60 mg PO DAILY tab.sr.24h 12/08/18 Labetalol HCl [Normodyne -] 400 mg PO TID #60 tablet 12/08/18 Nifedipine ER [Procardia XL -] 120 mg PO DAILY #60 tab.er.24 12/08/18 Spironolactone [Aldactone -] 50 mg PO BID #120 tablet 12/08/18 Labetalol HCl [Normodyne -] 400 mg PO TID #0 tablet 01/06/19 Problem List - Problems (1) Diastolic CHF Assessment/Plan: elevated BNP, greater than previous admissions. Likely in the setting of medication non compliance and uncontrolled hypertension. Continue Lasix 40 mg po BID and Spironolactone 50 mg BID with monitoring diuretic response, renal function and electrolytes will need outpatient follow up with PCP. patient agrees to see PCP and special delivery mail carrier as an outpatient. Code(s): I50.30 - UNSPECIFIED DIASTOLIC (CONGESTIVE) HEART FAILURE (2) Heart failure with reduced ejection fraction Assessment/Plan: Code(s): I50.20 - UNSPECIFIED SYSTOLIC (CONGESTIVE) HEART FAILURE (3) Shortness of breath Assessment/Plan: resolved. on room air Code(s): R06.02 - SHORTNESS OF BREATH (4) [id number] kidney injury Code(s): N17.9 - ACUTE KIDNEY FAILURE, UNSPECIFIED; N18.9 - CHRONIC KIDNEY DISEASE, UNSPECIFIED Qualifiers: Chronic kidney disease stage: stage 3 (moderate) (5) CHF exacerbation Code(s): I50.9 - HEART FAILURE, UNSPECIFIED Qualifiers: Heart failure type: diastolic Qualified Code(s): I50.33 - Acute on chronic diastolic (congestive) heart failure (6) Hypertensive urgency Assessment/Plan: resolved Code(s): I16.0 - HYPERTENSIVE URGENCY (7) Acute on chronic diastolic (congestive) heart failure Code(s): I50.33 - ACUTE ON CHRONIC DIASTOLIC (CONGESTIVE) HEART FAILURE (8) Diabetes Code(s): E11.9 - TYPE 2 DIABETES MELLITUS WITHOUT COMPLICATIONS Qualifiers: Diabetes mellitus type: type 2 This patient is new to me today: No Emergency Visit: Yes ED Registration Date: 01/02/19 Care time: The patient presented to the Emergency Department on the above date and was hospitalized for further evaluation of their emergent condition. Critical Care patient: No - Discharge Referral Referred to [facility] Med P.C.: No
== END 2019-01-06 14:00 | disposition home or self-care (01) | DRG 194 ==
LOC: JER 14:04 → JERBED 17:55 → JICU 01-03 01:47 → J4W 01-04 15:31
PROVIDERS: ADMIT Internal Medicine; ATTEND Nurse Practitioner Family
DX: I13.0 Hypertensive heart and chronic kidney disease with heart failure and stage 1 through stage 4 chronic kidney disease, or unspecified chronic kidney disease (principal); I16.1 Hypertensive emergency; F14.90 Cocaine use, unspecified, uncomplicated; J44.9 Chronic obstructive pulmonary disease, unspecified; J44.1 Chronic obstructive pulmonary disease with (acute) exacerbation; I25.10 Atherosclerotic heart disease of native coronary artery without angina pectoris; D64.9 Anemia, unspecified; N17.9 Acute kidney failure, unspecified; I25.2 Old myocardial infarction; E78.5 Hyperlipidemia, unspecified; I65.29 Occlusion and stenosis of unspecified carotid artery; I50.33 Acute on chronic diastolic (congestive) heart failure; I24.8 Other forms of acute ischemic heart disease; E11.65 Type 2 diabetes mellitus with hyperglycemia; N18.3 Chronic kidney disease, stage 3 (moderate); I34.0 Nonrheumatic mitral (valve) insufficiency; Z91.14 Patient's other noncompliance with medication regimen
CPT/HCPCS: 36415; 71045-TC-FY; 76705-TC; 80048; 80053; 80307; 82550; 82553; 82962; 83605; 83690; 83735; 83880; 84484; 85025; 85027; 85610; 85730; 93005; 93010; 93306-TC; 94640; 99285-25; J1644

== ENCOUNTER 2019-02-13 16:34 | Emergency (ER) | payer OTHER ==
[2019-02-13 16:58] VITALS: TEMP 98.5; BMI 33.5
[2019-02-13] MEDS ORDERED: SODIUM CHLORIDE 1,000 ML IV SCH (17:15)
--- NOTE | 2019-02-13 17:27 | PDOC ---
History of Present Illness - General Chief Complaint: CVA/TIA Stated Complaint: CHEST PAIN Time Seen by Provider: 02/13/19 17:09 History Source: Patient - History of Present Illness Initial Comments: 02/14/19 01:49 Mr. Ernandez is a 58 y/o man w/hx polysubstance abuse (cocaine, meth), HTN, HLD , TIA s/p carotid endarterectomy (july) non-compliant on plavix, p/w acute onset LUE and LLE weakness 45 minutes before arrival. He reports feeling well while visiting his niece, and becoming acutely weak while walking up the hill after leaving her apartment on the way home. He reports weakness and numbness in his L leg that made ambulation difficult, and severe weakness and numbness in his LUE that made him unable to use that arm. He reports mild R sided facial numbness. He denies changes in vision, headache, chest pain, shortness of breath. He reports that his last cocaine use was two days ago, but denies any drug or alcohol use today. He does not follow with a neurologist and does not take his prescribed medications. He reports that his BP is typically in the 200s systolic when measured at doctor's appointments. Timing/Duration: reports: other (45 minutes prior to arrival) Past History - Past Medical History Allergies/Adverse Reactions: Allergies Allergy/AdvReac Type Severity Reaction Status Date / Time IRMA Inhibitors Allergy Verified 02/13/19 17:19 Home Medications: Ambulatory Orders Clopidogrel Bisulfate [Plavix] 75 mg PO DAILY 10/19/18 Albuterol 0.083% Nebulizer Jane [Ventolin 0.083% Nebulizer Soln -] 1 amp NEB Q4H #10 amp 11/01/18 Aspirin Coated [Ecotrin -] 81 mg PO DAILY tablet.ec 11/04/18 Insulin (Levemir) [Levemir Vial] 30 units SQ 0700,2200 units 11/04/18 Insulin Sliding Scale [Novolog Vial Sliding Scale -] 1 vial SQ ACHS units 11/04 Furosemide [Lasix -] 40 mg PO BID@0600,1400 #60 tablet 12/08/18 Labetalol HCl [Normodyne -] 400 mg PO TID #60 tablet 12/08/18 Atorvastatin Ca [Lipitor] 80 mg PO HS #90 tab 01/06/19 Hydralazine HCl 100 mg PO TID #180 tablet 01/06/19 Isosorbide Mononitrate [Imdur -] 60 mg PO DAILY #90 tab.sr.24h 01/06/19 Nifedipine [Procardia Xl] 120 mg PO DAILY #180 tab.er.24 01/06/19 Spironolactone [Aldactone -] 50 mg PO BID #120 tablet 01/06/19 Ergocalciferol (Vitamin D2) [Vitamin D2] 50,000 unit PO WEEKLY 02/13/19 Anemia: No Asthma: Yes Cancer: No Cardiac Disorders: Yes (ACS, CAD - s/p PCI/Stents, [place] X3, non-ischemic Cardiomyopathy,) CVA: Yes (2019) COPD: Yes CHF: Yes (Diastolic CHF) DVT: No Dementia: No Diabetes: Yes GI Disorders: No Disorders: No HTN: Yes Hypercholesterolemia: Yes Kidney Stones: No Liver Disease: No Seizures: No Thyroid Disease: No - Surgical History Abdominal Surgery: No Appendectomy: No Cardiac Surgery: Yes (Carotid endareterectomy) Cholecystectomy: No Lung Surgery: No Neurologic Surgery: No Orthopedic Surgery: Yes (Old injury fractured left ankle x2) - Reproductive History Testicular Surgery: No - Immunization History Immunization Up to Date: Yes - Psycho Social/Smoking Cessation Hx Smoking Status: No Smoking History: Never smoked Have you smoked in the past 12 months: No Number of Cigarettes Smoked Daily: 2 If you are a former smoker, when did you quit?: smokes 2 x per week Information on smoking cessation initiated: No 'Breaking Loose' booklet given: 04/13/18 Hx Alcohol Use: No Drug/Substance Use Hx: No Substance Use Type: Cocaine Hx Substance Use Treatment: No Neuro Specific PMHX - Complaint Specific PMHX Migraine: No Multiple Sclerosis: No TIA: Yes (July 2018 s/p R carotid endarterectomy) Review of Systems - Review of Systems Able to Perform ROS?: Yes Comments:: 02/13/19 19:25 ROS: GENERAL/CONSTITUTIONAL: No fever or chills. No weakness. HEAD, EYES, EARS, NOSE AND THROAT: No change in vision. No ear pain or discharge. No sore throat. CARDIOVASCULAR: No chest pain or shortness of breath RESPIRATORY: No cough, wheezing, or hemoptysis. GASTROINTESTINAL: No nausea, vomiting, diarrhea or constipation. GENITOURINARY: No dysuria, frequency, or change in urination. MUSCULOSKELETAL: No joint or muscle swelling or pain. No neck or back pain. SKIN: No rash NEUROLOGIC: L sided weakness, diminished L sided sensation. No headache, vertigo , loss of consciousness ENDOCRINE: No increased thirst. No abnormal weight change HEMATOLOGIC/LYMPHATIC: No anemia, easy bleeding, or history of blood clots. ALLERGIC/IMMUNOLOGIC: No hives or skin allergy. *Physical Exam - Vital Signs Last Vital Signs Temp Pulse Resp BP Pulse Ox 98.5 F 108 H 18 254/139 H 99 02/13/19 16:56 02/13/19 16:56 02/13/19 16:56 02/13/19 16:56 02/13/19 16:56 - Physical Exam 02/13/19 19:18 PE: GENERAL: Awake, alert, and fully oriented, in no acute distress HEAD: No signs of trauma, normocephalic, atraumatic EYES: PERRLA, EOMI, sclera anicteric, conjunctiva clear ENT: Auricles normal inspection, hearing grossly normal, nares patent, oropharynx clear without exudates. Moist mucosa NECK: Normal ROM, supple, no lymphadenopathy, JVD, or masses LUNGS: No distress, speaks full sentences, clear to auscultation bilaterally HEART: Regular rate and rhythm, normal S1 and S2, no murmurs, rubs or gallops, peripheral pulses normal and equal bilaterally. ABDOMEN: Soft, nontender, normoactive bowel sounds. No guarding, no rebound. No masses EXTREMITIES : Normal inspection, Normal range of motion, no edema. No clubbing or cyanosis NEUROLOGICAL: See NIHSS section. Diminished sensation LUE, LLE. Minimal resistance to gravity of both RUE and LLE. Cranial nerves II through XII grossly intact. Normal speech. Gait limited by weakness of LLE. SKIN: Warm, Dry, normal turgor, no rashes or lesions noted NIH Stroke Scale - Last Known Well Date/Time & Onset Date Last Known Well: 02/13/19 Time Last Known Well: 16:15 - Initial Evaluation Level of consciousness: Alert Ask patient the month and their age: Answers both correctly Ask patient to open & close eyes; make fist and let go: Obeys both correctly Best gaze (horizontal eye movement): Normal Visual field testing: No visual field loss Facial paresis (Show teeth/raise eyebrows/close eyes tight): Minor paralysis ( flattened nasolabial fold, asymmetry on smiling) Motor Function: Left Arm: Some effort against gravity Motor Function: Right Arm: Normal (extends arm 90 (or 45) degrees for 10 seconds without drift Motor Function: Left Leg: Some effort against gravity Motor Function: Right Leg: Normal (extends leg 30 degrees for 5 seconds without drift) Limb Ataxia: Present in one limb Sensory(Use pinprick test arms,legs,trunk,face/side to side): Mild to moderate decrease in sensation Best language (Describe picture, name items, read sentences): No Aphasia Dysarthria (read several words): Normal articulation Extinction and Inattention: No abnormality - Total Score NIH Stroke Scale Score: 7 tPA Exclusion Checklist 0-3hr - Time Elapsed Date last known well: 02/13/19 Time last known well: 16:15 Elaspsed time: Day(s) and 3 Hour(s) and 48 Minutes - Thrombolytic Therapy Candidate Is the patient eligible for Thrombolytic Therapy?: No - Exclusion Criteria 0-3hr SBP greater than 185 or DBP greater than 110mmHg despite tx: Yes Recent IC/spinal surgery,head trauma or stroke w/in last 3mo: No Hx of previous IC hemorrhage, IC neoplasm, AVM or aneurysm: No Active internal bleeding: No Blding diathesis(low plt ct, inc PTT,INR>1.7 or use of NOAC): No Symptoms suggest subarachnoid hemorrhage: No CT demonstrates multilobar infarct(>1/3 cerebral hemiphere): No Arterial puncture at noncompressible site in previous 7 days: No Blood glucose concentration less than 50mg/dL (2.7mmol/L): No - Relative Exclusion Criteria 0-3h Life expectancy <1yr/severe co-morbid illness/[employer] on admit: No : No Patient/family refused: No Rapid improvement: No Stroke severity too mild: No Recent acute NH (w/in previous 3 months): No Seizure at onset with postictal residual neuro impairments: No Major surgery or serious trauma w/in previous 14 days: No Recent GI or hemorrhage (w/in previous 21 days): No - Ineligibility reason(s) Reasons No tPA given: See reason(s) noted above TIA Risk Factors - ABCD Score Age: Age = or > 60 Blood Pressure: SBP =/> 140 Clinical Features of TIA: Uni wk w/wo speech impair Duration: TIA duration 10-59 min Diabetes: Yes Total ABCD2 Score (0-7):: 6 Heart Score/ECG Review - Electrocardiogram EKG: Normal - Age Age: >/= 65 - Risk Factors Risk Factors Heart Score: Yes Hx Hypercholesterolemia, Yes Hx Hypertension, Yes Hx Diabetes, Yes Smoking History, Yes Positive family hx of cardiac disease, Yes Hx Obesity Based on the list above the patient has:: >/=3 risk factors or Hx atherosclerotic disease - Troponin Troponin: </= normal limit Critical Care Time/MDM Note Total Critical Care Time: 180 (minutes) Critical Care Statement: The care of this patient involved high complexity decision making to prevent further life threatening deterioration of the patient 's condition and/or to evaluate & treat vital organ system(s) failure or risk of failure. - Medical Decision Making Note: 58M with multiple cardiac risk factors, carotid endarterectomy with subsequent TIA in July, polysubstance use, medication non-compliance, non-compliant with Plavix p/w 45 minutes of L sided weakness, R facial droop most concerning for CVA. NIHSS - 7. Last known well time - 45 minutes prior to arrival. 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 Kent (Neurology). Plan for tPA if BP lowers into range, as well as transfer to . CTA pending BP - 254/136, currently 2 hours since last known well time. No recent procedures /surgeries, no active bleeding, no prior administration of tPA. BP currently out of range, plan for tPA administration once BP lowers into threshold. Nicardipine drip ongoing. Plan for tPA administration, risks/benefits discussed with patient who is amenable to the plan. tPA consent form completed, transfer consent form completed. --- Large MCA stroke appreciated on CTA. Repeat BP - 184/120 --- 02/13/19 18:49 Repeat NIHSS - 6 Improved L arm resistance to gravity (some resistance -> drift) --- accepting transfer. EMS ETA 20 min. --- Repeat BP - 178/118 Diastolic BP still out of range. tPA hung (but not started or connected). EMS here ready to take patient to [facility]. Patient still within the tPA window; plan to continue nicardipine drip through transport, reassess BP throughout transport, plan for administration of tPA upon arrival to [facility] if BP within range. Case discussed with EMS. Plan to titrate nicardipine, trend BP - upper limit 180 /110, lower limit 140/90 Patient transferred to [facility]. Discharge - Discharge Information Problems reviewed: Yes Clinical Impression/Diagnosis: CVA (cerebral vascular accident) Qualifiers: CVA mechanism: occlusion Precerebral and cerebral artery: unspecified cerebral artery Qualified Code(s): I63.50 - Cerebral infarction due to unspecified occlusion or stenosis of unspecified cerebral artery Condition: Guarded Disposition: TRANSFER ACUTE CARE/OTHER HOSP - Admission No - Follow up/Referral Referrals: Lenny Hernandez MD [Primary Care Provider] - - Patient Discharge Instructions - Post Discharge Activity
[2019-02-13] MEDS ORDERED: LABETALOL HCL 5 MG/1 ML (100MG/20 ML VIAL) IVPUSH ONE (17:32)
[2019-02-13 17:46] LABS: EOS % 1.3 % (0-4.5); HEMATOCRIT 32.5 % (35.4-49); HEMOGLOBIN 10.3 GM/dL (11.7-16.9); LYMPH % 16.3 % (8-40); MCH 30.1 pg (25.7-33.7); MCHC 31.8 g/dl (32.0-35.9); MEAN CELL VOLUME 94.4 fl (80-96); MEAN PLT VOLUME 7.5 fl (7.5-11.1); MONO % 7.2 % (3.8-10.2); NEUT % 74.2 % (42.8-82.8); PLATELET COUNT 367 K/MM3 (134-434); RBC 3.44 M/mm3 (4.00-5.60); RDW 17.3 % (11.9-15.9)
[2019-02-13] MEDS ORDERED: niCARdipine HCL 25 MG/10 ML AMPUL IVPB ONE (18:06)
[2019-02-13] MEDS ORDERED: NICARDIPINE 25 MG in DEXTROSE 5%-WATER - 240 ML IVPB ONE (18:10)
[2019-02-13 18:14] LABS: CHOLESTEROL 134 mg/dL (50-200); HDL CHOLESTEROL 42 mg/dL (40-60); LDL CHOLESTEROL (ONLY SJRH) 68 mg/dL (5-100); TRIGLYCERIDES 122 mg/dL (0-150)
[2019-02-13 18:27] LABS: ALBUMIN 3.1 g/dl (3.4-5.0); ALK PHOS 234 U/L (45-117); ANION GAP 9 MMOL/L (8-16); BILIRUBIN,TOTAL 0.7 mg/dL (0.2-1); BLOOD UREA NITROGEN 20.1 mg/dL (7-18); CALCIUM 9.1 mg/dL (8.5-10.1); CHLORIDE 106 mmol/L (98-107); CO2 22 mmol/L (21-32); CREATININE 1.4 mg/dL (0.55-1.3); GLUCOSE,RANDOM 233 mg/dL (74-106); POTASSIUM 5.3 mmol/L (3.5-5.1); SGOT/AST 63 U/L (15-37); SGPT/ALT 43 U/L (13-61); SODIUM 137 mmol/L (136-145); TOT PROT 7.4 g/dl (6.4-8.2)
[2019-02-13] MEDS ORDERED: ALTEPLASE 100MG 100 MG IVPB ONE (18:31)
--- NOTE | 2019-02-13 18:32 | PDOC ---
Documentation entered by Sudarshan Dickens SCRIBE, acting as scribe for Lauren Raza MD. Lauren Raza MD: This documentation has been prepared by the Maninder devi Daniel, SCRIBE, under my direction and personally reviewed by me in its entirety. I confirm that the documentation accurately reflects all work, treatment, procedures, and medical decision making performed by me. Attending Attestation - Resident Resident Name: Iban Palacios - ED Attending Attestation I have performed the following: I have examined & evaluated the patient, The case was reviewed & discussed with the resident, I agree w/resident's findings & plan, Exceptions are as noted - HPI HPI: 02/13/19 17:50 The patient is a 58 year old male with a past medical history of COPD, asthma, [place] s/p stents, CVA, HTN, HLD, and diabetes here today for evaluation of left upper extremity weakness. The patient reports that at approximately 50 MINUTES PRIOR TO ARRIVAL the patient developed left arm weakness, chest pain, and shortness of breath. The patient reports that currently he feels like he cant take a full breath. He also notes some lower extremity weakness but states that this is chronic due to knee pain. Patient denies headache, lightheadedness. Denies fever, chills. Denies chest pain. Denies nausea, vomiting, diarrhea, abdominal pain. Allergies: IRMA inhibitors PCP: Lenny Hernandez 02/13/19 18:28 - Physicial Exam PE: 02/13/19 17:50 GENERAL: Well developed, well nourished who has some chronic rt leg pain and uses a cane HEENT: Normocephalic, atraumatic. PERRLA, EOMI. No conjunctival pallor. Sclera are non- icteric. Moist mucous membranes. Oropharynx is clear. NECK: Supple. Full ROM. No JVD. Carotid pulses 2+ and symmetric, without bruits. No thyromegaly. No lymphadenopathy. CARDIOVASCULAR: Regular rate and rhythm. No murmurs, rubs, or gallops. Distal pulses are 2+ and symmetric. PULMONARY: +scant expiratory wheezing. No rales or rhonchi. ABDOMINAL: protuberant , nontender MUSCULOSKELETAL new left arm weakness EXTREMITIES: No cyanosis. No clubbing. No edema. No calf tenderness. SKIN: Warm and dry. Normal capillary refill. No rashes. No jaundice. NEUROLOGICAL: Alert, new left arm weakness,also has chronic rt leg pain and uses cane, no slurred speech or facial droop at the time PSYCHIATRIC: Cooperative. Good eye contact. Appropriate mood and affect. 02/13/19 18:33 02/14/19 02:14 - Medical Decision Making 02/14/19 02:22 58-year-old male brought in by ambulance after having acute left-sided arm weakness that started 50 minutes prior to arrival Past medical history significant for previous stroke, hypertension, hyperlipidemia anemia, diabetes, right endarterectomy Presenting blood pressure was 249/130 CT of the head showed a short segment is stenosis of the right internal carotid artery There appear to be segments of severe stenosis involving the right middle cerebral artery There was poor visualization of the distal aspect of the left anterior cerebral artery. High-grade stenosis or occlusion should be considered There was a 0.3 cm saccular aneurysm extending off the right aspect of the distal basilar artery Stroke center at [facility] was contacted and the patient was transferred to the [facility] stroke center for possible Endovascular neurosurgery or interventional neuroradiology consultation For patient's blood pressure he received labetalol and then a Cardene drip was started He consented for TPA but his blood pressure was too high to initiated TPA was sent with him in the ambulance while he continue the Cardene drip to try to get his systolic blood pressure down to 180/105as recommend by neurosurgical fellow 02/15/19 02:09
[2019-02-13 18:38] LABS: INR 1.14 (0.83-1.09); PROTHROMBIN TIME (PATIENT) 13.5 SEC (9.7-13.0)
[2019-02-13 18:40] LABS: ACTIVATED PTT 29.8 SECONDS (25.2-36.5)
[2019-02-13 18:58] VITALS: BP 178/120; PULSE 87
--- NOTE | 2019-02-15 12:08 | EKG ---
Test Reason : Blood Pressure : / mmHG Vent. Rate : 106 BPM Atrial Rate : 106 BPM P-R Int : 166 ms QRS Dur : 092 ms QT Int : 352 ms P-R-T Axes : 054 003 082 degrees QTc Int : 467 ms SINUS TACHYCARDIA POSSIBLE LEFT ATRIAL ENLARGEMENT NONSPECIFIC ST AND T WAVE ABNORMALITY ABNORMAL ECG WHEN COMPARED WITH ECG OF 02-JAN-2019 15:02, ST NOW DEPRESSED IN LATERAL LEADS T WAVE INVERSION NOW EVIDENT IN LATERAL LEADS Confirmed by MD Gustavo, Michael ([id number]) on 02/15/2019 12:07:32 PM Referred By: Confirmed By:Michael Chen MD
== END 2019-02-13 19:00 | disposition short-term general hospital (02) ==
LOC: JER 16:34
DX: I63.50 Cerebral infarction due to unspecified occlusion or stenosis of unspecified cerebral artery (principal); I25.10 Atherosclerotic heart disease of native coronary artery without angina pectoris; I11.0 Hypertensive heart disease with heart failure; F17.210 Nicotine dependence, cigarettes, uncomplicated; Z95.5 Presence of coronary angioplasty implant and graft; I50.30 Unspecified diastolic (congestive) heart failure; I25.2 Old myocardial infarction; I42.8 Other cardiomyopathies; E78.00 Pure hypercholesterolemia, unspecified; E11.9 Type 2 diabetes mellitus without complications; Z79.4 Long term (current) use of insulin; J44.9 Chronic obstructive pulmonary disease, unspecified; J45.998 Other asthma; Z86.73 Personal history of transient ischemic attack (TIA), and cerebral infarction without residual deficits; Z79.02 Long term (current) use of antithrombotics/antiplatelets; Z91.14 Patient's other noncompliance with medication regimen; F19.10 Other psychoactive substance abuse, uncomplicated; F14.10 Cocaine abuse, uncomplicated; F15.10 Other stimulant abuse, uncomplicated
CPT/HCPCS: 36415; 70450-TC; 70496-TC; 71045-TC-FY; 80053; 82465; 82550; 82553; 82962; 83718; 83721; 84478; 84484; 85025; 85610; 85730; 86850; 86900; 86901; 93005; 93010; 99285-25; Q9967

== ENCOUNTER 2019-04-10 09:14 | Inpatient (IN) | payer OTHER ==
--- NOTE | 2019-04-10 09:40 | PDOC ---
*Physical Exam - Vital Signs Last Vital Signs Temp Pulse Resp BP Pulse Ox 97.2 F L 102 H 30 H 200/123 H 95 04/10/19 09:23 04/10/19 09:23 04/10/19 09:23 04/10/19 09:23 04/10/19 09:23 ED Treatment Course - LABORATORY CBC & Chemistry Diagram: 04/10/19 09:45 04/10/19 09:45 Medical Decision Making - Medical Decision Making 04/10/19 09:42 Patient seen as pre-attending with Dr. Reyes (PGY-1, IM) and Dr. Amaya ( Attending) 58 y/o male with a PMHx of CHF, CAD (s/p stents x3) CEA here w/acute onset of chest pain approximately 45 minutes prior to arrival. Patient was sitting on the couch and suddenly felt a sharp L sided chest pain that lasted 4-5 seconds. Patient became short of breath while on his way to [place] and asked to bring him to the hospital. Reports that he ran out of his blood pressure medications yesterday. H/o cocaine use 3 days previous BP R arm: 203/133 BP L arm: 206/123 Will evaluate for r/o ACS including cocaine induced [place], Hypertensive Urgency/ Emergency, COPD exacerbation and/or CHF exacerbation. Less likely aortic dissection or PE given clinical presentation. As patient reports non-adherence to hypertensive medication regimen will give OTD of PO meds 04/10/19 10:57 S/p BP medications, patient became tachypneic to the 40's, Bedside lung ultrasound showed L sided pleural effusion with B lines, no pericardial effusion , no RV strain. Will give Nitro (0.4 mg) for presumed florid pulmonary edema, venous/arterial dilation CXR with possible effusion Reassessed @ bedside - no RR 20's, speaking in full sentences, will give Lasix for volume overload 04/10/19 12:09 Patient much improved s/p Nitro + Lasix - does not appear to be tiring on respirations, does not require BIPAP at this time, will admit to telemetry Discharge - Discharge Information Problems reviewed: Yes Clinical Impression/Diagnosis: Cocaine abuse CHF (congestive heart failure) Qualifiers: Heart failure type: unspecified Heart failure chronicity: unspecified Qualified Code(s): I50.9 - Heart failure, unspecified COPD (chronic obstructive pulmonary disease) Qualifiers: COPD type: unspecified COPD Qualified Code(s): J44.9 - Chronic obstructive pulmonary disease, unspecified Condition: Fair - Admission Yes - Follow up/Referral - Patient Discharge Instructions - Post Discharge Activity
[2019-04-10] MEDS ORDERED: LABETALOL HCL 200 MG TABLET (FP) PO ONE (09:52)
[2019-04-10] MEDS ORDERED: hydrALAZINE HCL 50 MG TABLET (FP) PO ONE (09:53)
[2019-04-10] MEDS ORDERED: NIFEdipine E.R. 90 MG TABLET PO SCH (10:00)
[2019-04-10] MEDS ORDERED: hydrALAZINE HCL 25 MG TABLET (FP) ONE ×2 (10:01→15:21)
[2019-04-10] MEDS ORDERED: LABETALOL HCL 100 MG TABLET (FP) ONE ×2 (10:01→15:21)
[2019-04-10] MEDS ORDERED: NIFEdipine E.R. 30 MG TABLET ONE (10:02)
--- NOTE | 2019-04-10 10:04 | PDOC ---
History of Present Illness - General Chief Complaint: Respiratory Stated Complaint: SOB/COUGHING Past History - Past Medical History Allergies/Adverse Reactions: Allergies Allergy/AdvReac Type Severity Reaction Status Date / Time IRMA Inhibitors Allergy Verified 04/10/19 09:25 Home Medications: Ambulatory Orders Clopidogrel Bisulfate [Plavix] 75 mg PO DAILY 10/19/18 Albuterol 0.083% Nebulizer Jane [Ventolin 0.083% Nebulizer Soln -] 1 amp NEB Q4H #10 amp 11/01/18 Aspirin Coated [Ecotrin -] 81 mg PO DAILY tablet.ec 11/04/18 Insulin (Levemir) [Levemir Vial] 30 units SQ 0700,2200 units 11/04/18 Insulin Sliding Scale [Novolog Vial Sliding Scale -] 1 vial SQ ACHS units 11/04 Furosemide [Lasix -] 40 mg PO BID@0600,1400 #60 tablet 12/08/18 Labetalol HCl [Normodyne -] 400 mg PO TID #60 tablet 12/08/18 Atorvastatin Ca [Lipitor] 80 mg PO HS #90 tab 01/06/19 Hydralazine HCl 100 mg PO TID #180 tablet 01/06/19 Isosorbide Mononitrate [Imdur -] 60 mg PO DAILY #90 tab.sr.24h 01/06/19 Nifedipine [Procardia Xl] 120 mg PO DAILY #180 tab.er.24 01/06/19 Spironolactone [Aldactone -] 50 mg PO BID #120 tablet 01/06/19 Ergocalciferol (Vitamin D2) [Vitamin D2] 50,000 unit PO WEEKLY 02/13/19 Anemia: No Asthma: Yes Cancer: No Cardiac Disorders: Yes (ACS, CAD - s/p PCI/Stents, [place] X3, non-ischemic Cardiomyopathy,) CVA: Yes (2019) COPD: Yes CHF: Yes (Diastolic CHF) DVT: No Dementia: No Diabetes: Yes GI Disorders: No Disorders: No HTN: Yes Hypercholesterolemia: Yes Kidney Stones: No Liver Disease: No Seizures: No Thyroid Disease: No - Surgical History Abdominal Surgery: No Appendectomy: No Cardiac Surgery: Yes (Carotid endareterectomy) Cholecystectomy: No Lung Surgery: No Neurologic Surgery: No Orthopedic Surgery: Yes (Old injury fractured left ankle x2) - Reproductive History Testicular Surgery: No - Immunization History Immunization Up to Date: Yes - Psycho Social/Smoking Cessation Hx Smoking Status: No Smoking History: Current every day smoker Have you smoked in the past 12 months: No Number of Cigarettes Smoked Daily: 2 If you are a former smoker, when did you quit?: smokes 2 x per week Information on smoking cessation initiated: No 'Breaking Loose' booklet given: 04/13/18 Hx Alcohol Use: No Drug/Substance Use Hx: No Substance Use Type: Cocaine Hx Substance Use Treatment: No *Physical Exam - Vital Signs Last Vital Signs Temp Pulse Resp BP Pulse Ox 97.2 F L 102 H 30 H 200/123 H 95 04/10/19 09:23 04/10/19 09:23 04/10/19 09:23 04/10/19 09:23 04/10/19 09:23 04/10/19 10:03 53 y/o male PMH HTN, HLD, DM, diastolic CHF reduced EF, CAD (s/p [place] x3), right carotid stenosis (s/p carotid endarterectomy 07/2018), COPD/asthma, c/o CP for 45 min. This has happened before. Niece is recent sick contact with cough and diarrhea. Pt presenting 4 days ago with cough and diarrhea. Cough has been productive of small amounts of phlegm; now clear/white, no blood, initially green/yellow. Diarrhea has been x6 per day , non-bloody, non-mucoid. He says there are no other assoc symptoms. He has run out of his home meds and missed a dose yesterday 09 Apr 2019. Cocaine use Mar He has been sleeping upright in a chair. REVIEW OF SYSTEMS CONSTITUTIONAL: Absent: fever, chills, diaphoresis, generalized weakness, malaise, loss of appetite, weight change HEENT: Absent: rhinorrhea, nasal congestion, throat pain, throat swelling, difficulty swallowing, mouth swelling, ear pain, eye pain, visual changes CARDIOVASCULAR: Absent: chest pain, syncope, palpitations, irregular heart rate, lightheadedness , peripheral edema RESPIRATORY: Absent: cough, shortness of breath, dyspnea with exertion, orthopnea, wheezing, stridor, hemoptysis GASTROINTESTINAL: Absent: abdominal pain, abdominal distension, nausea, vomiting, diarrhea, constipation, melena, hematochezia GENITOURINARY: Absent: dysuria, frequency, urgency, hesitancy, hematuria, flank pain, genital pain MUSCULOSKELETAL: Absent: myalgia, arthralgia, joint swelling, back pain, neck pain SKIN: Absent: rash, itching, pallor HEMATOLOGIC/IMMUNOLOGIC: Absent: easy bleeding, easy bruising, lymphadenopathy, frequent infections ENDOCRINE: Absent: unexplained weight gain, unexplained weight loss, heat intolerance, cold intolerance NEUROLOGIC: Absent: headache, focal weakness or paresthesias, dizziness, unsteady gait, seizure, mental status changes, bladder or bowel incontinence PSYCHIATRIC: Absent: anxiety, depression, suicidal or homicidal ideation, hallucinations. GENERAL: AOx3, in mild distress HEAD: NCAT EYES: PABLO, EOMI, conjunctiva clear. ENT: Ears normal, nares patent, oropharynx clear without exudates. Moist mucous membranes. NECK: Normal range of motion, supple without lymphadenopathy, JVD, or masses. LUNGS: Posterior BL lung field end expiratory wheezes. No crackles. No accessory muscle use. HEART: RRR s1 s2 ABDOMEN: Ventral hernia more apparent with cough. Soft, BS present in all 4 quadrants, non-distended, no JVD, MUSCULOSKELETAL: No bony deformities or tenderness. No CVA tenderness. UPPER EXTREMITIES: 2+ pulses, warm, well-perfused. No cyanosis. No clubbing. No peripheral edema. LOWER EXTREMITIES: BL peripheral edema up to knees, non-pitting. 2+ pulses, warm, well-perfused. No calf tenderness. NEUROLOGICAL: No focal deficits. Cranial nerves II-XII intact. Normal speech. Gait not appreciated. PSYCHIATRIC: Cooperative. Good eye contact. Appropriate mood and affect. SKIN: Warm, dry, normal turgor, no rashes or lesions noted, normal capillary refill. A/P htn urgency VS CHF exacerbation 2/2 URI vs cocaine use VS COPD exacerbation VS dissection VS PE VS PNA - CBC, CMP, Cardiac profile, UA, BMP, EKG, CXR - U tox - Provide home meds: Hydralazine 100 mg, labetolol 400 mg, Nifedepine 90 mg - ASA Once HR/BP normalizes will consider duonebs 04/10/19 10:55 Bedside US demonstrates B lines possibly consistent with fluid vs effusion SL nitroglycerin administered now 1g ofirmev now Flu swab CXR being performed now Will consider lasix administration once vasodilatory affects of nitroglycerin 04/10/19 11:03 Plan discussed with team. Will admit to tele. 04/10/19 11:21 BNP 3,576.8 Administer 40 IV lasix Strict i/o 04/10/19 11:[address] Rosa for admission to telemetry ED Treatment Course - LABORATORY CBC & Chemistry Diagram: 04/10/19 09:45 04/10/19 09:45 Discharge - Discharge Information Problems reviewed: Yes Clinical Impression/Diagnosis: Cocaine abuse CHF (congestive heart failure) Qualifiers: Heart failure type: unspecified Heart failure chronicity: unspecified Qualified Code(s): I50.9 - Heart failure, unspecified COPD (chronic obstructive pulmonary disease) Qualifiers: COPD type: unspecified COPD Qualified Code(s): J44.9 - Chronic obstructive pulmonary disease, unspecified - Admission Yes - Follow up/Referral Referrals: Lenny Hernandez MD [Primary Care Provider] - - Patient Discharge Instructions - Post Discharge Activity
[2019-04-10 10:13] LABS: BASO % 0.9 % (0-2.0); EOS % 1.7 % (0-4.5); HEMATOCRIT 32.3 % (35.4-49); HEMOGLOBIN 10.7 GM/dL (11.7-16.9); LYMPH % 13.5 % (8-40); MCH 31.3 pg (25.7-33.7); MCHC 33.1 g/dl (32.0-35.9); MEAN CELL VOLUME 94.4 fl (80-96); MEAN PLT VOLUME 7.2 fl (7.5-11.1); MONO % 6.9 % (3.8-10.2); PLATELET COUNT 355 K/MM3 (134-434); RBC 3.42 M/mm3 (4.00-5.60); RDW 15.4 % (11.9-15.9); WHITE BLOOD COUNT 8.9 K/mm3 (4.0-10.0)
[2019-04-10 10:35] LABS: BILIRUBIN,TOTAL 0.5 mg/dL (0.2-1); BLOOD UREA NITROGEN 20.5 mg/dL (7-18); CALCIUM 8.7 mg/dL (8.5-10.1); CREATININE 1.3 mg/dL (0.55-1.3); POTASSIUM 4.5 mmol/L (3.5-5.1); TOT PROT 7.6 g/dl (6.4-8.2)
[2019-04-10] MEDS ORDERED: ALBUTEROL SO4 2.5/IPRATROPIUM 0.5 INH SOL 3 ML VIAL.NEB. NEB ONE ×2 (10:42→10:43)
[2019-04-10] MEDS ORDERED: NITROGLYCERIN SUBLINGUAL 1/150 0.4 MG TAB SL ONE (10:48)
[2019-04-10] MEDS ORDERED: NITROGLYCERIN SUBLINGUAL 1/150 0.4 MG TAB ONE (10:50)
[2019-04-10] MEDS ORDERED: ACETAMINOPHEN 1000 MG/100 ML VIAL (NON FORMULARY) IVPB ONE (10:55)
[2019-04-10] MEDS ORDERED: ACETAMINOPHEN INJECTION 100 ML IVPB ONE (10:56)
--- NOTE | 2019-04-10 11:05 | PDOC ---
Documentation entered by Winifred Antunez SCRIBE, acting as scribe for Karen Amaya MD. Karen Amaya MD: This documentation has been prepared by the catrinae, Winifred Antunez SCRIBE, under my direction and personally reviewed by me in its entirety. I confirm that the documentation accurately reflects all work, treatment, procedures, and medical decision making performed by me. Attending Attestation - Resident Resident Name: Jasson Reyes - ED Attending Attestation I have performed the following: I have examined & evaluated the patient, The case was reviewed & discussed with the resident, I agree w/resident's findings & plan, Exceptions are as noted - HPI HPI: 04/10/19 10:17 58 yo [place] h/o CHF, CAD (s/p stents x3) CEA, HTN, DM, substance abuse ( cocaine use) who presents to the ED with acute onset chest pain that began approximately 45 minutes prior to arrival. Patient was sitting on the couch and suddenly felt a sharp left sided chest pain that lasted for about 4-5 seconds. Patient has had a cough the past week with green sputum. Patient states chest pain is not associated with cough. Patient has had diarrhea for the last 4 days. As per patient, he did not take his daily medication today. Patient states on his way to [place] he experienced SOB and asked his to bring him to the hospital. Patient denies and nausea or vomiting - Physicial Exam PE: 04/10/19 10:59 pt awake but somnolent, mild resp distress, accessory muscle use, bilat crackles and wheezes heard. heart reg tachycardia. abd soft obese, nontender. leg bilat pitting edema. 3+. nuero alert oriented x 3. - Medical Decision Making 04/10/19 11:00 58 yo male h/o cad stents. htn cocain abuse, copd/ asthma. here with c/o chest pain, and sudden onset shortness of breath. no h/o dvt / pe. does have h/o admission for prior hypertensive emergency. pt reports last cocain use 3 days ago. did not take his medication today on my initial evaluation pt in resp distress. give home bp meds. nitroglycerin SL, duoneb. focused ED us TTE performed, mild reduced contractility. no pericardial effuion. no rv strain. lung us with bilat b lines, worse on left. left base with small air bronchograms, small pleural effusion. impressIOn. mild reduced contractility, and air bronchograms left base, small pleural effusion. possible pneumonia, pulm edema. 04/10/19 11:03 04/10/19 12:09 Pt much improved with bp controlled, lasix given. cxr with pulm edema. bp improved to 149/80. will admit to telemetry. Heart Score/ECG Review #1 ECG reviewed & interpreted by me at: 11:04 General ECG Interpretation: Sinus Rhythm, Normal Intervals, No acute ischemic changes Compared to previous ECG there are: Other (sinus tachycardia, left axis. TWI v6. ) Critical Care Time/MDM Note Total Critical Care Time: 30 Critical Care Statement: The care of this patient involved high complexity decision making to prevent further life threatening deterioration of the patient 's condition and/or to evaluate & treat vital organ system(s) failure or risk of failure.
[2019-04-10] MEDS ORDERED: ASPIRIN 325 MG TABLET PO ONE (11:24)
[2019-04-10] MEDS ORDERED: FUROSEMIDE 40 MG/4 ML INJECTABLE VIAL IVPUSH ONE (11:25)
[2019-04-10] MEDS ORDERED: ASPIRIN 325 MG ENTERIC COATED TABLET (FP) ONE (11:49)
[2019-04-10] MEDS ORDERED: FUROSEMIDE 40 MG/4 ML INJECTABLE VIAL ONE ×2 (11:49→15:22)
[2019-04-10 11:53] LABS: CARBOXYHEMOGLOBIN 2.2 % (0-2)
[2019-04-10 11:55] LABS: ARTERIAL BLD GAS O2 SATURATION 92.2 % (95-98); ARTERIAL BLOOD GAS BASE EXCESS -1.2 meq/l (-2-2); ARTERIAL BLOOD GAS PCO2 38.8 mmHg (35-45); ARTERIAL BLOOD GAS PO2 69.4 mmHg (80-100); ARTERIAL BLOOD GAS pH 7.39 (7.35-7.45)
[2019-04-10 11:56] LABS: ALLENS TEST POSITIVE
--- NOTE | 2019-04-10 13:01 | HP ---
CHIEF COMPLAINT: Shortness of breath and chest pain PCP: Dr. Esquivel HISTORY OF PRESENT ILLNESS: Pt. is a 58 y.o. M w/ PMHx. of HTN, DM, HLD, CAD (s/ p [place] x 3 and stents), COPD/Asthma, R. Carotid endarterectomy (07/2018), HFpEF, CKD, TIA, stable AAA, cocaine and alcohol abuse presents from home for chest pain and shortness of breath. Pt. states that his shortness of breath and chest pain began about 5 days ago associated with yellow/green sputum production and diarrhea (Pt. reports 6x/ day of loose stool). Pt. states that his chest pain is worse with inspiration. Pt. denies any sick contacts but per chart review Pt. had recent contact with a sick niece with cough and diarrhea. Pt. currently endorses epigastric abdominal pain, chest discomfort with deep inspiration, welling of his abdomen since 4 days ago and lower extremity swelling. Pt. denies any blood in the stool and his urine. Of note Pt. has had multiple admission for similar presentations of chest pain and hypertensive emergency in the setting of recent cocaine use. ER course was notable for: (1) CBC, CMP, Trop, EKG, POCUS: showing curly B-lines (2)CXR (3) Recent Travel: No PAST MEDICAL HISTORY: As above PAST SURGICAL HISTORY: Carotid Endarterectomy Social History: Smoking: Yes, varies daily, 2 cigs/ day usually Alcohol: Last had 24 Oz. Beer x 2 three days ago Drugs: Cocaine (Last used 3 days ago) Allergies IRMA Inhibitors Allergy (Verified 04/10/19 09:25) HOME MEDICATIONS: Home Medications Medication Instructions Recorded Clopidogrel Bisulfate [Plavix] 75 mg PO DAILY 10/19/18 Albuterol 0.083% Nebulizer Jane 1 amp NEB Q4H #10 amp 11/01/18 [Ventolin 0.083% Nebulizer Soln -] Aspirin Coated [Ecotrin -] 81 mg PO DAILY tablet.ec 11/04/18 Insulin (Levemir) [Levemir Vial] 30 units SQ 0700,2200 units 11/04/18 Insulin Sliding Scale [Novolog 1 vial SQ ACHS units 11/04/18 Vial Sliding Scale -] Furosemide [Lasix -] 40 mg PO BID@0600,1400 #60 tablet 12/08/18 Labetalol HCl [Normodyne -] 400 mg PO TID #60 tablet 12/08/18 Atorvastatin Ca [Lipitor] 80 mg PO HS #90 tab 01/06/19 Hydralazine HCl 100 mg PO TID #180 tablet 01/06/19 Isosorbide Mononitrate [Imdur -] 60 mg PO DAILY #90 tab.sr.24h 01/06/19 Nifedipine [Procardia Xl] 120 mg PO DAILY #180 tab.er.24 01/06/19 Spironolactone [Aldactone -] 50 mg PO BID #120 tablet 01/06/19 Ergocalciferol (Vitamin D2) 50,000 unit PO WEEKLY 02/13/19 [Vitamin D2] REVIEW OF SYSTEMS As above. PHYSICAL EXAMINATION Vital Signs - 24 hr 04/10/19 04/10/19 09:23 09:25 Temperature 97.2 F L 97.4 F L Pulse Rate 102 H Pulse Rate [ 87 Apical] Respiratory 30 H 20 Rate Blood Pressure 200/123 H Blood Pressure 177/80 H [Left Arm] O2 Sat by Pulse 95 99 Oximetry (%) GENERAL: Awake, alert, and oriented, in no acute distress. HEAD: Normal with no signs of trauma. EYES: Extraocular movements intact, sclera anicteric, conjunctiva clear. EARS, NOSE, THROAT: Ears normal, nares patent, oropharynx clear without exudates. Moist mucous membranes. LUNGS: tachypneic, LML amd LLL crackles, wheezing, no accessory muscle use HEART: Tachycardic, RRR, no murmurs appreciated ABDOMEN: epigastric tenderness, distended, normoactive bowel sounds, no guarding , no rebound, no masses, dull to percussion MUSCULOSKELETAL: No CVA tenderness. UPPER EXTREMITIES: 2+ radial pulses, warm, well-perfused. LOWER EXTREMITIES: 2+ dorsal pedal pulses, warm, well-perfused. 2+ edema, L>R. NEUROLOGICAL: Pt. somnolent, nods off mid conversation PSYCHIATRIC: Cooperative. SKIN: Warm, dry Laboratory Results - last 24 hr 04/10/19 04/10/19 04/10/19 09:45 09:45 09:45 WBC 8.9 RBC 3.42 L Hgb 10.7 L Hct 32.3 L MCV 94.4 MCH 31.3 MCHC 33.1 RDW 15.4 D Plt Count 355 MPV 7.2 L Absolute Neuts (auto) 6.9 Neutrophils % 77.0 Lymphocytes % 13.5 Monocytes % 6.9 Eosinophils % 1.7 Basophils % 0.9 Nucleated RBC % 0 Anticoagulation Therapy Puncture Site ABG pH ABG pCO2 at Pt Temp ABG pO2 at Pt Temp ABG HCO3 ABG O2 Sat (Measured) ABG O2 Content ABG Base Excess Nelson Test Carboxyhemoglobin Methemoglobin O2 Delivery Device Oxygen Flow Rate Vent Mode Vent Rate Mechanical Rate Pressure Support Vent Sodium 139 Potassium 4.5 Chloride 109 H Carbon Dioxide 23 Anion Gap 7 L BUN 20.5 H Creatinine 1.3 Est GFR (CKD-EPI)AfAm 70.20 Est GFR (CKD-EPI)NonAf 60.57 Random Glucose 252 H Calcium 8.7 Total Bilirubin 0.5 AST 36 ALT 34 Alkaline Phosphatase 211 H Creatine Kinase 120 Troponin I 0.03 B-Natriuretic Peptide 3576.8 H Total Protein 7.6 Albumin 3.0 L 04/10/19 11:30 WBC RBC Hgb Hct MCV MCH MCHC RDW Plt Count MPV Absolute Neuts (auto) Neutrophils % Lymphocytes % Monocytes % Eosinophils % Basophils % Nucleated RBC % Anticoagulation Therapy No Result Required. Puncture Site Right radial ABG pH 7.39 ABG pCO2 at Pt Temp 38.8 ABG pO2 at Pt Temp 69.4 L ABG HCO3 23.0 ABG O2 Sat (Measured) 92.2 L ABG O2 Content 13.5 ABG Base Excess -1.2 Nelson Test Positive Carboxyhemoglobin 2.2 H Methemoglobin < 1.0 O2 Delivery Device No Result Required. Oxygen Flow Rate No Vent Mode No Result Required. Vent Rate No Result Required. Mechanical Rate No Result Required. Pressure Support Vent No Result Required. Sodium Potassium Chloride Carbon Dioxide Anion Gap BUN Creatinine Est GFR (CKD-EPI)AfAm Est GFR (CKD-EPI)NonAf Random Glucose Calcium Total Bilirubin AST ALT Alkaline Phosphatase Creatine Kinase Troponin I B-Natriuretic Peptide Total Protein Albumin ASSESSMENT/PLAN: Pt. is a 58 y.o. M w/ PMHx. of HTN, DM, HLD, CAD (s/p [place] x 3 and stents), COPD/ Asthma, R. Carotid endarterectomy (07/2018), HFpEF, CKD, TIA, stable AAA, cocaine and alcohol abuse presents from home for chest pain and shortness of breath. #Shortness of Breath 2/2 PNA and CHF Exacerbation vs. COPD exacerbation Cocaine likely precipitated Pneumonia(yellow and green sputum production and positive infiltrates in LLL on CXR) which likely precipitated CHF(higher likelihood given BNP and volume status) and COPD exacerbation? (low likelihood given ABG) in conjunction with Pt. stating he missed the last day of his home medications because he "ran out." Follow up Chest CT to characterize Pleural effusions vs. parapneumonic effusion and evaluate infiltrates Lasix 40mg IV BID, hold home PO lasix (40mg BID PO) Daily weights, strict Is & Os Counselled Pt. against Cocaine use, will c/w Labetalol b/c it has antagonistic alpha activity and per prior discussions with Cardiology regarding Pt.s prior admissions and BP controlling agents. ABG: pH-7.39, pO2-69.4, pCO-238.8 Solumedrol 40mg Q8H f/u SCx., BCx. and Legionella/Strep Pneumo Ag. Pt. given Levaquin in the ED prior Pt. afebrile and w/o elevated WBC, will treat empirically with Ceftriaxone and Azithromycin pending Chest CT results to r/o PNA Pulmonology and Cardiology consults appreciated to Dr. Azar and Jia Echo (01/03/19): mild concentric LVH, EF: 50-55%, mild bilateral atrial enlargement, mod-severe MR, mild-mod severe TR, RSVP 58mmHg, mild AR, ND. #Chest Pain likely 2/2 to volume overload and pleuritic chest pain (worse with inspiration) Troponins Neg., f/u Rpt. f/u EKG (unable to obtain down in ED?) #Epigastric pain likely 2/2 volume overload as Pt.s abdomen is distended with fluid? (dull to percussion) f/u Abd. US, low threshold for CT Abd/ Pelvis #NIDDM #CAD #HLD #HTN #Polysubstance Abuse #TIA #AAA c/w home medications except as noted above f/u UTox f/u Aortic US, given Hx. of AAA and recurrent cocaine use with episodes of HTN emergency #FEN no IVF, encourage PO intake monitor electrolytes and replete as needed Diabetic/ Na controlled diet #DVT Ppx. Hep SQ Visit type - Emergency Visit Emergency Visit: Yes ED Registration Date: 04/10/19 Care time: The patient presented to the Emergency Department on the above date and was hospitalized for further evaluation of their emergent condition. - New Patient This patient is new to me today: Yes Date on this admission: 04/10/19 - Critical Care Critical Care patient: No ATTENDING PHYSICIAN STATEMENT I saw and evaluated the patient. I reviewed the resident's note and discussed the case with the resident. I agree with the resident's findings and plan as documented. SUBJECTIVE: OBJECTIVE: ASSESSMENT AND PLAN:
[2019-04-10] MEDS ORDERED: methylPREDNISolone NA SUCC 40 MG/1 ML VIAL IVPUSH SCH (13:30)
[2019-04-10] MEDS ORDERED: FUROSEMIDE 40 MG TABLET (FP) PO SCH (14:00)
--- NOTE | 2019-04-10 14:16 | CON.PULM ---
Consult Consult Specialty:: PULM/CCM Referred by:: Hospitalist Reason for Consultation:: SOB - History of Present Illness Chief Complaint: SOB History of Present Illness: 53 M, well known to our service. Multiple admissions directly related to substance abuse, HTN, HLD, DM, diastolic CHF reduced EF, CAD (s/p SD x3), right carotid stenosis (s/p carotid endarterectomy 07/2018), COPD due to smoking history (diagnosis of true asthma has never been established). Admitted via the ER due to CP and SOB. Reports some cough small amount of clear/white phlegm. No hemoptysis. Last used cocaine on the . CXR: diffuse increase in pulmonary vascular congestion and small pleural effusions - History Source History Provided By: Patient Limitations to Obtaining History: No Limitations - Past Medical History Cardio/Vascular: Yes: CAD (S/P PCI), HTN, Hyperlipdemia, SD, Other (dilated cardiomyopathy (nonischemic), LV systolic dysfunction, ) Pulmonary: Yes: Asthma, Bronchitis, Pneumonia. No: Cancer, COPD, O2 Dependent, Previously Intubated, Pulmonary Embolus, Pulmonary Fibrosis Gastrointestinal: Yes: GERD Renal/: Yes: Renal Inusuff Musculoskeletal: Yes: Chronic low back pain Additional Medical History: Rightt achilles tendon tear. Rightt testicular torsion. Angioedema due to ACEI - Past Surgical History Past Surgical History: Yes: AAA Repair, Carotid Endarterectomy (right) - Alcohol/Substance Use Hx Alcohol Use: No Number of Drinks Daily: 3 (beer) History of Substance Use: reports: Cocaine - Smoking History Smoking history: Current every day smoker Have you smoked in the past 12 months: No Aproximately how many cigarettes per day: 2 If you are a former smoker, when did you quit?: smokes 2 x per week - Social History Usual Living Arrangement: Alone ADL: Independent Occupation: No working. On disability History of Recent Travel: No Home Medications - Allergies Allergies/Adverse Reactions: Allergies Allergy/AdvReac Type Severity Reaction Status Date / Time IRMA Inhibitors Allergy Verified 04/10/19 09:25 - Home Medications Home Medications: Ambulatory Orders Clopidogrel Bisulfate [Plavix] 75 mg PO DAILY 10/19/18 Albuterol 0.083% Nebulizer Jane [Ventolin 0.083% Nebulizer Soln -] 1 amp NEB Q4H #10 amp 11/01/18 Aspirin Coated [Ecotrin -] 81 mg PO DAILY tablet.ec 11/04/18 Insulin (Levemir) [Levemir Vial] 30 units SQ 0700,2200 units 11/04/18 Insulin Sliding Scale [Novolog Vial Sliding Scale -] 1 vial SQ ACHS units 11/04 Furosemide [Lasix -] 40 mg PO BID@0600,1400 #60 tablet 12/08/18 Labetalol HCl [Normodyne -] 400 mg PO TID #60 tablet 12/08/18 Atorvastatin Ca [Lipitor] 80 mg PO HS #90 tab 01/06/19 Hydralazine HCl 100 mg PO TID #180 tablet 01/06/19 Isosorbide Mononitrate [Imdur -] 60 mg PO DAILY #90 tab.sr.24h 01/06/19 Nifedipine [Procardia Xl] 120 mg PO DAILY #180 tab.er.24 01/06/19 Spironolactone [Aldactone -] 50 mg PO BID #120 tablet 01/06/19 Ergocalciferol (Vitamin D2) [Vitamin D2] 50,000 unit PO WEEKLY 02/13/19 Review of Systems - Review of Systems Constitutional: reports: Malaise. denies: Chills, Fever, Night Sweats Eyes: reports: No Symptoms HENT: reports: No Symptoms Neck: reports: No Symptoms Cardiovascular: reports: Chest Pain, Edema, Shortness of Breath. denies: Palpitations Respiratory: reports: Cough, Orthopnea, PND, Snoring, SOB, SOB on Exertion, Wheezing. denies: Hemoptysis Gastrointestinal: reports: No Symptoms Genitourinary: reports: No Symptoms Breasts: reports: No Symptoms Reported Musculoskeletal: reports: No Symptoms Integumentary: reports: No Symptoms Neurological: reports: No Symptoms Endocrine: reports: No Symptoms Hematology/Lymphatic: reports: No Symptoms Psychiatric: reports: No Symptoms Physical Exam Vital Sings: Vital Signs Temperature 97.4 F L 04/10/19 09:25 Pulse Rate 87 04/10/19 09:25 Respiratory Rate 20 04/10/19 09:25 Blood Pressure 177/80 H 04/10/19 09:25 O2 Sat by Pulse Oximetry (%) 99 04/10/19 09:25 Constitutional: Yes: No Distress, Anxious, Obese Eyes: Yes: Conjunctiva Clear, EOM Intact HENT: Yes: Atraumatic, Normocephalic Neck: Yes: Supple, Trachea Midline Cardiovascular: Yes: Regular Rate and Rhythm Respiratory: Yes: Cough, Diminished, Rales, Rhonchi, SOB, SOB on Exertion, Tachypnea. No: Accessory Muscle Use, Stridor, Wheezes ...Inspection: Yes: WNL ...Clubbing: No Gastrointestinal: Yes: WNL, Normal Bowel Sounds, Soft, Abdomen, Obese Renal/: Yes: WNL Musculoskeletal: Yes: WNL Extremities: Yes: WNL Edema: Yes Peripheral Pulses WNL: Yes Integumentary: Yes: WNL Neurological: Yes: WNL, Alert, Oriented ...Motor Strength: WNL Psychiatric: Yes: WNL, Alert, Oriented Labs: CBC, BMP 04/10/19 09:45 04/10/19 09:45 ABG Results ABG pH 7.39 (7.35-7.45) 04/10/19 11:30 ABG pCO2 at Pt Temp 38.8 mmHg (35-45) 04/10/19 11:30 ABG pO2 at Pt Temp 69.4 mmHg (80-100) L 04/10/19 11:30 ABG HCO3 23.0 mmol/L (22-27) 04/10/19 11:30 ABG O2 Sat (Measured) 92.2 % (95-98) L 04/10/19 11:30 ABG O2 Content 13.5 % vol 04/10/19 11:30 ABG Base Excess -1.2 meq/l (-2-2) 04/10/19 11:30 Imaging - Results Chest X-ray: Report Reviewed, Image Reviewed Cat Scan: Report Reviewed, Image Reviewed Problem List - Problems (1) Cocaine abuse Code(s): F14.10 - COCAINE ABUSE, UNCOMPLICATED (2) CHF (congestive heart failure) Code(s): I50.9 - HEART FAILURE, UNSPECIFIED Qualifiers: Heart failure type: unspecified Heart failure chronicity: unspecified Qualified Code(s): I50.9 - Heart failure, unspecified (3) COPD (chronic obstructive pulmonary disease) Code(s): J44.9 - CHRONIC OBSTRUCTIVE PULMONARY DISEASE, UNSPECIFIED Qualifiers: COPD type: unspecified COPD Qualified Code(s): J44.9 - Chronic obstructive pulmonary disease, unspecified (4) CHF exacerbation Code(s): I50.9 - HEART FAILURE, UNSPECIFIED Qualifiers: Heart failure type: diastolic Qualified Code(s): I50.33 - Acute on chronic diastolic (congestive) heart failure (5) CVA (cerebral vascular accident) Code(s): I63.9 - CEREBRAL INFARCTION, UNSPECIFIED Qualifiers: CVA mechanism: occlusion Precerebral and cerebral artery: unspecified cerebral artery Qualified Code(s): I63.50 - Cerebral infarction due to unspecified occlusion or stenosis of unspecified cerebral artery (6) Carotid stenosis Code(s): I65.29 - OCCLUSION AND STENOSIS OF UNSPECIFIED CAROTID ARTERY (7) Diastolic CHF Code(s): I50.30 - UNSPECIFIED DIASTOLIC (CONGESTIVE) HEART FAILURE (8) Heart failure with reduced ejection fraction Code(s): I50.20 - UNSPECIFIED SYSTOLIC (CONGESTIVE) HEART FAILURE (9) Nicotine abuse Code(s): Z72.0 - TOBACCO USE (10) Pleural effusion Code(s): J90 - PLEURAL EFFUSION, NOT ELSEWHERE CLASSIFIED (11) Shortness of breath Code(s): R06.02 - SHORTNESS OF BREATH (12) Tobacco use Code(s): Z72.0 - TOBACCO USE (13) Acute on chronic diastolic (congestive) heart failure Code(s): I50.33 - ACUTE ON CHRONIC DIASTOLIC (CONGESTIVE) HEART FAILURE (14) CAD (coronary artery disease) Code(s): I25.10 - ATHSCL HEART DISEASE OF [place] CORONARY ARTERY W/O ANG PCTRS Qualifiers: Coronary Disease-Associated Artery/Lesion type: [place] artery [place] vs. transplanted heart: [place] heart Associated angina: without angina Qualified Code(s): I25.10 - Atherosclerotic heart disease of [place] coronary artery without angina pectoris (15) CKD (chronic kidney disease) stage 3, GFR 30-59 ml/min Code(s): N18.3 - CHRONIC KIDNEY DISEASE, STAGE 3 (MODERATE) (16) Carotid stenosis, left Code(s): I65.22 - OCCLUSION AND STENOSIS OF LEFT CAROTID ARTERY (17) Cerebrovascular disease Code(s): I67.9 - CEREBROVASCULAR DISEASE, UNSPECIFIED (18) Diabetes Code(s): E11.9 - TYPE 2 DIABETES MELLITUS WITHOUT COMPLICATIONS Qualifiers: Diabetes mellitus type: type 2 (19) HTN (hypertension) Code(s): I10 - ESSENTIAL (PRIMARY) HYPERTENSION Qualifiers: Hypertension type: essential hypertension Qualified Code(s): I10 - Essential (primary) hypertension (20) History of myocardial infarction Code(s): I25.2 - OLD MYOCARDIAL INFARCTION (21) Hyperlipidemia Code(s): E78.5 - HYPERLIPIDEMIA, UNSPECIFIED Qualifiers: Hyperlipidemia type: pure hypercholesterolemia Qualified Code(s): E78.00 - Pure hypercholesterolemia, unspecified (22) Back pain Code(s): M54.9 - DORSALGIA, UNSPECIFIED Qualifiers: Back pain location: thoracic back pain Chronicity: acute Assessment/Plan Lasix Will DC ABX as I do not suspect an infectious process No smoking and illicit substances was counseled Supplemental O2 as needed BD TX PRN Monitor off systemic steroids for now Daily weights Sleep screen Will follow Thank you. Dr Azar
[2019-04-10] MEDS: ALBUTEROL SO4 0.083% IH SOL 2.5 MG/3 ML VIAL.NEB. NEB SCH ×3 (14:28→22:12)
[2019-04-10] MEDS: FUROSEMIDE 40 MG/4 ML INJECTABLE VIAL IVPUSH SCH (15:28)
[2019-04-10] MEDS: HEPARIN NA (PORCINE) 5,000 UNITS/ML 1ML VIAL SQ SCH ×2 (15:28→23:02)
[2019-04-10] MEDS: LABETALOL HCL 200 MG TABLET (FP) PO SCH ×2 (15:28→22:59)
[2019-04-10] MEDS: hydrALAZINE HCL 50 MG TABLET (FP) PO SCH ×2 (15:28→22:59)
[2019-04-10] MEDS: ALBUTEROL SO4 2.5/IPRATROPIUM 0.5 INH SOL 3 ML VIAL.NEB. NEB SCH ×2 (16:31→20:14)
[2019-04-10] MEDS: INSULIN SLIDING SCALE (NOVOLOG) 1 VIAL SQ SCH ×2 (16:32→22:59)
--- NOTE | 2019-04-10 16:57 | PN ---
Teaching Attending Note Name of Resident: Dimitrios Rosa ATTENDING PHYSICIAN STATEMENT I saw and evaluated the patient. I reviewed the resident's note and discussed the case with the resident. I agree with the resident's findings and plan as documented. SUBJECTIVE: Patient is a 58yom with Pmhx of HTN, DM, HLD, CAD (s/p IN x 3 and stents), COPD /Asthma, Right Carotid endarterectomy (07/2018), diastolic CHF, CKD, TIA, stable AAA, cocaine and alcohol abuse presents for having chest pain on inspiration and shortness of breath for 5 days with yellow/green sputum production and diarrhea (Pt. reports 6x/ day of loose stool). Patient had a recent sick contact with a niece and developed cough and diarrhea. Patient is having shortness of breath. No fever or chills, no headache. OBJECTIVE: Vital Signs Temperature 98.0 F 04/10/19 15:00 Pulse Rate 85 04/10/19 15:00 Respiratory Rate 20 04/10/19 15:00 Blood Pressure 158/90 04/10/19 15:00 O2 Sat by Pulse Oximetry (%) 97 04/10/19 15:00 GENERAL: The patient is awake, alert, and fully oriented, in no acute distress. HEAD: Normal with no signs of trauma. EYES: PERRL, extraocular movements intact, sclera anicteric, conjunctiva clear. ENT: Ears normal, oropharynx clear without exudates, moist mucous membranes. NECK: Trachea midline, full range of motion, supple. LUNGS: decreased Breath sounds bl + wheezing bl, no crackles, no accessory muscle use. HEART: Regular rate and rhythm, S1, S2 without murmur, rub or gallop. ABDOMEN: Soft, NT, mildly distended, normoactive bowel sounds, no guarding, no rebound, + hepatosplenomegaly, no masses. EXTREMITIES: 2+ pulses, warm, well-perfused, + left leg swelling > right NEUROLOGICAL: Cranial nerves II through XII grossly intact. Normal speech, gait not observed. PSYCH: Normal mood, normal affect. SKIN: Warm, dry, normal turgor, no rashes or lesions noted CBCD WBC 8.9 K/mm3 (4.0-10.0) 04/10/19 09:45 RBC 3.42 M/mm3 (4.00-5.60) L 04/10/19 09:45 Hgb 10.7 GM/dL (11.7-16.9) L 04/10/19 09:45 Hct 32.3 % (35.4-49) L 04/10/19 09:45 MCV 94.4 fl (80-96) 04/10/19 09:45 MCHC 33.1 g/dl (32.0-35.9) 04/10/19 09:45 RDW 15.4 % (11.9-15.9) D 04/10/19 09:45 Plt Count 355 K/MM3 (134-434) 04/10/19 09:45 MPV 7.2 fl (7.5-11.1) L 04/10/19 09:45 CMP Sodium 139 mmol/L (136-145) 04/10/19 09:45 Potassium 4.5 mmol/L (3.5-5.1) 04/10/19 09:45 Chloride 109 mmol/L (98-107) H 04/10/19 09:45 Carbon Dioxide 23 mmol/L (21-32) 04/10/19 09:45 Anion Gap 7 MMOL/L (8-16) L 04/10/19 09:45 BUN 20.5 mg/dL (7-18) H 04/10/19 09:45 Creatinine 1.3 mg/dL (0.55-1.3) 04/10/19 09:45 Random Glucose 252 mg/dL (74-106) H 04/10/19 09:45 Calcium 8.7 mg/dL (8.5-10.1) 04/10/19 09:45 Total Bilirubin 0.5 mg/dL (0.2-1) 04/10/19 09:45 AST 36 U/L (15-37) 04/10/19 09:45 ALT 34 U/L (13-61) 04/10/19 09:45 Alkaline Phosphatase 211 U/L (45-117) H 04/10/19 09:45 Total Protein 7.6 g/dl (6.4-8.2) 04/10/19 09:45 Albumin 3.0 g/dl (3.4-5.0) L 04/10/19 09:45 CARDIAC ENZYMES Creatine Kinase 120 U/L (26-308) 04/10/19 09:45 Troponin I 0.02 ng/ml (0.00-0.05) 04/10/19 15:00 Current Medications Generic Name Dose Route Start Last Admin Trade Name Rody PRN Reason Stop Dose Admin Albuterol Sulfate 1 amp 04/10/19 13:00 04/10/19 14:28 Ventolin 0.083% Nebulizer Soln - NEB 1 amp Q4H PUSHPA Administration Albuterol/Ipratropium 1 amp 04/10/19 16:00 04/10/19 16:31 Duoneb - NEB 1 amp RQID PUSHPA Administration Aspirin 81 mg 04/11/19 10:00 Ecotrin - PO DAILY [facility] Atorvastatin Calcium 80 mg 04/10/19 22:00 Lipitor - PO HS [facility] Clopidogrel Bisulfate 75 mg 04/11/19 10:00 Plavix - PO DAILY PUSHPA Furosemide 40 mg 04/10/19 14:00 04/10/19 15:28 Lasix Injection - IVPUSH 40 mg BID@0600,1400 PUSHPA Administration Heparin Sodium (Porcine) 5,000 unit 04/10/19 14:00 04/10/19 15:28 Heparin - SQ 5,000 unit TID PUSHPA Administration Hydralazine HCl 100 mg 04/10/19 14:00 04/10/19 15:28 Apresoline - PO 100 mg TID PUSHPA Administration Insulin Aspart 1 vial 04/10/19 16:30 04/10/19 16:32 Novolog Vial Sliding Scale - SQ 6 units ACHS PUSHPA Administration Protocol Isosorbide Mononitrate 60 mg 04/11/19 10:00 Imdur - PO DAILY [facility] Labetalol HCl 400 mg 04/10/19 14:00 04/10/19 15:28 Normodyne - PO 400 mg TID PUSHPA Administration Nifedipine 120 mg 04/11/19 10:00 Procardia Xl - PO DAILY [facility] Spironolactone 50 mg 04/10/19 22:00 Aldactone - PO BID [facility] Home Medications Medication Instructions Recorded Clopidogrel Bisulfate [Plavix] 75 mg PO DAILY 10/19/18 Albuterol 0.083% Nebulizer Jane 1 amp NEB Q4H #10 amp 11/01/18 [Ventolin 0.083% Nebulizer Soln -] Aspirin Coated [Ecotrin -] 81 mg PO DAILY tablet.ec 11/04/18 Insulin (Levemir) [Levemir Vial] 30 units SQ 0700,2200 units 11/04/18 Insulin Sliding Scale [Novolog 1 vial SQ ACHS units 11/04/18 Vial Sliding Scale -] Furosemide [Lasix -] 40 mg PO BID@0600,1400 #60 tablet 12/08/18 Labetalol HCl [Normodyne -] 400 mg PO TID #60 tablet 12/08/18 Atorvastatin Ca [Lipitor] 80 mg PO HS #90 tab 01/06/19 Hydralazine HCl 100 mg PO TID #180 tablet 01/06/19 Isosorbide Mononitrate [Imdur -] 60 mg PO DAILY #90 tab.sr.24h 01/06/19 Nifedipine [Procardia Xl] 120 mg PO DAILY #180 tab.er.24 01/06/19 Spironolactone [Aldactone -] 50 mg PO BID #120 tablet 01/06/19 Ergocalciferol (Vitamin D2) 50,000 unit PO WEEKLY 02/13/19 [Vitamin D2] ABG: pH-7.39, pO2-69.4, pCO-238.8 CT of the chest: small bl plerual effusions, multichamber Cm, dilatation of the main pulmonary artery (4.2cm) consistent with increased pulmonary arterial pressure. BL upper and lower lobe groundglass parenchymal opacity is noted as on the previous CT study of , acute on chronic vascular congestion. nonspecific mediastinal lymphadenopathy without definite interval change in comparison to the 12/01/2018 EKG: NSR, rate of 84, LAE, prologed Qtc of 493. US of LE: negative for DVT Echo (01/03/19): mild concentric LVH, EF: 50-55%, mild bilateral atrial enlargement, mod-severe MR, mild-mod severe TR, RSVP 58mmHg, mild AR, ID. ASSESSMENT AND PLAN: Pt. is a 58 y.o. M w/ PMHx. of HTN, DM, HLD, CAD (s/p IN x 3 and stents), COPD/ Asthma, R. Carotid endarterectomy (07/2018), HFpEF, CKD, TIA, stable AAA, cocaine and alcohol abuse presents from home for chest pain and shortness of breath. #Acute diastolic CHF exacerbation with possible liver [id number] will get US of abdomen pelvis since c/o Right sided mild pain , will start him on lasix IV #Acute COPD exacerbation with LLL pneumonia on cxr , will monitor off abx and steroid for now, IV lasix 40mg bID #LLL Pneumonia: Infiltrate on the cxr with green/brownish sputum , with no wbc or fever at this time, will monitor off abx #Acute CP pleuritic due to pneumonia possible aspiration will start Zosyn #Cocaine/alcohol dependency: last use was on #Qtc: 493, will not give any agents that prolong QTc, will not give Zithromax #NIDDM continue with SS #hx of CAD continue plavix/aspirin #Hx of HLD continue statin #Hx of HTN continue home meds. #Hx of TIA #Hx of AAA f/u Aortic US closely since patient still uses cocaine (last use was on ) #Potassium of 4.5 on aldactone 50mg bid, will lower the dose to 50mg daily -Donohue cx -No antibiotic os steroid for now, will monitor for now -f/u SCx., BCx. and Legionella/Strep Pneumo Ag. -continue home meds. DVT Ppx: Hep SQ
[2019-04-10] MEDS ORDERED: SPIRONOLACTONE 25 MG TABLET (FP) PO SCH ×2 (22:00)
[2019-04-10] MEDS: ATORVASTATIN CA 80 MG TABLET (FP) PO SCH (22:59)
[2019-04-10 23:41] VITALS: BMI 34.0
[2019-04-11] MEDS: ALBUTEROL SO4 0.083% IH SOL 2.5 MG/3 ML VIAL.NEB. NEB SCH ×2 (00:25→04:45)
[2019-04-11] MEDS: LABETALOL HCL 200 MG TABLET (FP) PO SCH ×3 (06:09→22:10)
[2019-04-11] MEDS: hydrALAZINE HCL 50 MG TABLET (FP) PO SCH ×3 (06:09→22:10)
[2019-04-11] MEDS: INSULIN SLIDING SCALE (NOVOLOG) 1 VIAL SQ SCH ×4 (06:12→22:17)
[2019-04-11] MEDS: HEPARIN NA (PORCINE) 5,000 UNITS/ML 1ML VIAL SQ SCH ×3 (06:13→22:11)
[2019-04-11] MEDS: FUROSEMIDE 40 MG/4 ML INJECTABLE VIAL IVPUSH SCH ×2 (06:13→14:01)
[2019-04-11 06:36] LABS: BASO % 0.5 % (0-2.0); EOS % 2.5 % (0-4.5); HEMATOCRIT 30.4 % (35.4-49); HEMOGLOBIN 9.9 GM/dL (11.7-16.9); MCH 30.7 pg (25.7-33.7); MCHC 32.4 g/dl (32.0-35.9); MEAN CELL VOLUME 94.6 fl (80-96); MEAN PLT VOLUME 7.3 fl (7.5-11.1); MONO % 7.5 % (3.8-10.2); NEUT % 70.5 % (42.8-82.8); PLATELET COUNT 319 K/MM3 (134-434); RBC 3.22 M/mm3 (4.00-5.60); RDW 15.8 % (11.9-15.9); WHITE BLOOD COUNT 8.5 K/mm3 (4.0-10.0)
[2019-04-11 06:50] LABS: INR 1.15 (0.83-1.09); PROTHROMBIN TIME (PATIENT) 13.6 SEC (9.7-13.0)
[2019-04-11 06:55] LABS: BILIRUBIN,TOTAL 0.6 mg/dL (0.2-1); CALCIUM 8.7 mg/dL (8.5-10.1); CREATININE 1.5 mg/dL (0.55-1.3); MAGNESIUM 1.9 mg/dL (1.8-2.4); PHOSPHOROUS 3.8 mg/dL (2.5-4.9); POTASSIUM 3.8 mmol/L (3.5-5.1); TOT PROT 7.2 g/dl (6.4-8.2)
[2019-04-11] MEDS: ALBUTEROL SO4 2.5/IPRATROPIUM 0.5 INH SOL 3 ML VIAL.NEB. NEB SCH ×4 (07:51→20:30)
[2019-04-11] MEDS ORDERED: ALBUTEROL SO4 0.083% IH SOL 2.5 MG/3 ML VIAL.NEB. NEB PRN (08:01)
[2019-04-11] MEDS ORDERED: SPIRONOLACTONE 25 MG TABLET (FP) PO SCH (10:00)
[2019-04-11] MEDS ORDERED: CEFTRIAXONE 1 GM in DEXTROSE 5%-WATER - 50 ML IVPB SCH (10:00)
[2019-04-11] MEDS ORDERED: AZITHROMYCIN IVPB 500 MG/250 ML BAG IVPB SCH (10:00)
--- NOTE | 2019-04-11 10:03 | EKG ---
Test Reason : Blood Pressure : / mmHG Vent. Rate : 084 BPM Atrial Rate : 084 BPM P-R Int : 178 ms QRS Dur : 112 ms QT Int : 418 ms P-R-T Axes : 053 -01 128 degrees QTc Int : 493 ms NORMAL SINUS RHYTHM POSSIBLE LEFT ATRIAL ENLARGEMENT NONSPECIFIC T WAVE ABNORMALITY PROLONGED QT ABNORMAL ECG WHEN COMPARED WITH ECG OF 10-APR-2019 10:04, INVERTED T WAVES HAVE REPLACED NONSPECIFIC T WAVE ABNORMALITY IN LATERAL LEADS Confirmed by Soumya Verdin ([id number]) on 04/11/2019 10:03:42 AM Referred By: Bailee BASILIO Confirmed By:Soumya Verdin
--- NOTE | 2019-04-11 10:10 | EKG ---
Test Reason : Blood Pressure : / mmHG Vent. Rate : 099 BPM Atrial Rate : 099 BPM P-R Int : 178 ms QRS Dur : 100 ms QT Int : 374 ms P-R-T Axes : 048 005 102 degrees QTc Int : 479 ms NORMAL SINUS RHYTHM POSSIBLE LEFT ATRIAL ENLARGEMENT NONSPECIFIC T WAVE ABNORMALITY PROLONGED QT ABNORMAL ECG WHEN COMPARED WITH ECG OF 13-FEB-2019 16:41, COMPARED TO EKG NO SIGNIFICANT CHANGE IS FOUND Confirmed by Soumya Verdin ([id number]) on 04/11/2019 10:10:26 AM Referred By: Confirmed By:Soumya Verdin
--- NOTE | 2019-04-11 10:23 | PN ---
Progress Note (short form) - Note Progress Note: Chief Complaint: Events noted, notes reviewed, reports progressive dyspnea, reports chest pain, reports cough productive of clear sputum History of Present Illness: Seen and examined on telemetry. Full consult dictated - Current Medication List Current Medications Albuterol Sulfate (Ventolin 0.083% Nebulizer Soln -) 1 amp NEB Q4H PRN PRN Reason: SHORT OF BREATH/WHEEZING Albuterol/Ipratropium (Duoneb -) 1 amp NEB RQID [facility] Last Admin: 04/11/19 07:51 Dose: 1 amp Aspirin (Ecotrin -) 81 mg PO DAILY [facility] Atorvastatin Calcium (Lipitor -) 80 mg PO HS [facility] Last Admin: 04/10/19 22:59 Dose: 80 mg Clopidogrel Bisulfate (Plavix -) 75 mg PO DAILY [facility] Furosemide (Lasix Injection -) 40 mg IVPUSH BID@0600,1400 [facility] Last Admin: 04/11/19 06:13 Dose: 40 mg Heparin Sodium (Porcine) (Heparin -) 5,000 unit SQ TID [facility] Last Admin: 04/11/19 06:13 Dose: 5,000 unit Hydralazine HCl (Apresoline -) 100 mg PO TID [facility] Last Admin: 04/11/19 06:09 Dose: 100 mg Insulin Aspart (Novolog Vial Sliding Scale -) 1 vial SQ [facility]; Protocol Last Admin: 04/11/19 06:12 Dose: 2 units Isosorbide Mononitrate (Imdur -) 60 mg PO DAILY [facility] Labetalol HCl (Normodyne -) 400 mg PO TID [facility] Last Admin: 04/11/19 06:09 Dose: 400 mg Nifedipine (Procardia Xl -) 120 mg PO DAILY [facility] Spironolactone (Aldactone -) 50 mg PO DAILY [facility] - Review of Systems Constitutional: denies: Chills, Fever Cardiovascular: As noted above Respiratory: reports: Cough, denies: Hemoptysis, Orthopnea, PND Gastrointestinal: denies: Abdominal Pain, Constipation, Melena, Nausea, Rectal Bleeding, Vomiting Genitourinary: denies: Dysuria, Hematuria Musculoskeletal: denies: Back Pain, Joint Pain Neurological: denies: Dizziness, Syncope. denies: Confusion, Headache, Numbness , Seizure, Unsteady Gait - Objective Vital Signs: Last Vital Signs Temp Pulse Resp BP Pulse Ox 99.6 F 78 18 158/105 H 95 04/11/19 07:00 04/11/19 07:00 04/11/19 07:00 04/11/19 07:00 04/10/19 22:45 Intake & Output 04/08/19 04/09/19 04/10/19 04/11/19 23:59 23:59 23:59 23:59 Intake Total 370 Balance 370 Weight 244 lb 4 oz 244 lb 3.2 oz Neck: Supple Negative JVD Cardiovascular: S1 S2 Regular Rate and Rhythm Respiratory: Scattered Rhonchi Bilaterally Gastrointestinal: Soft Benign Normal Bowel Sounds Ext: Edema Labs: Troponin, BNP 04/10/19 04/10/19 04/10/19 09:45 09:45 15:00 Troponin I 0.03 0.02 B-Natriuretic Peptide 3576.8 H CBC, BMP 04/11/19 05:34 04/11/19 05:34 ABG Results ABG pH 7.39 (7.35-7.45) 04/10/19 11:30 ABG pCO2 at Pt Temp 38.8 mmHg (35-45) 04/10/19 11:30 ABG pO2 at Pt Temp 69.4 mmHg (80-100) L 04/10/19 11:30 ABG HCO3 23.0 mmol/L (22-27) 04/10/19 11:30 ABG O2 Sat (Measured) 92.2 % (95-98) L 04/10/19 11:30 ABG O2 Content 13.5 % vol 04/10/19 11:30 ABG Base Excess -1.2 meq/l (-2-2) 04/10/19 11:30 Assessment/Plan ASSESSMENT: 1. Clinical presentation is consistent with acute on chronic class II-III NYHA classification LV diastolic failure, probably precipitated by dietary non compliance, unclear if medical therapy non compliance in addition 2. COPD with probable acute exacerbation 3. CAD history of MD/PCI/stent angina pectoris 4. Hypertensive cardiovascular disease 5. DM 6. Hypercholesterolemia 7. History of cerebro-vascular disease 8. Post right CEA 9. History of AAA/4.3 cm infra-renal with mural thrombus 10. CKD 11. Anemia 12. History of substance abuse (Cocaine) 13. History of angioedema related to ACEI PLAN: 1. Continue Furosemide and Spironolactone with close monitoring of renal function and electrolytes 2. Continue Labetolol 3. Continue Hydralazine and Imdur/BiDil as outpatient 4. Continue Procardia XL 5. Continue ASA 6. Continue Lipitor 7. Continue bronchodilators as per the primary team 8. Emphasized importance of compliance to therapy administration and dietary restrictions including caloric restriction/salt restriction 9. Counselled substance abuse and smoking cessation Fabienne Hayward MD
[2019-04-11] MEDS: ISOSORBIDE MONONITRATE 60 MG TAB.SR.24H (FP) PO SCH (10:38)
[2019-04-11] MEDS: CLOPIDOGREL BISULFATE 75 MG TABLET (FP) PO SCH (10:38)
[2019-04-11] MEDS: ASPIRIN COATED 81 MG TABLET.EC PO SCH (10:38)
[2019-04-11] MEDS: NIFEdipine E.R 60 MG TABLET PO SCH (10:38)
[2019-04-11] MEDS ORDERED: INSULIN (NOVOLOG) ASPART 100 UNITS/ML 10ML VIAL ONE (11:04)
--- NOTE | 2019-04-11 12:02 | PN ---
Progress Note (short form) - Note Progress Note: Receiving a BD TX. Reports breathing feels better today, likely due to diuresis. No CP. No acute events overnight. CT Chest: Pulmonary vascular congestion / basilar atelectasis Intake & Output 04/08/19 04/09/19 04/10/19 04/11/19 23:59 23:59 23:59 23:59 Intake Total 370 Balance 370 Weight 244 lb 4 oz 244 lb 3.2 oz Last Vital Signs Temp Pulse Resp BP Pulse Ox 99.6 F 78 18 158/105 H 95 04/11/19 07:00 04/11/19 07:00 04/11/19 07:00 04/11/19 07:00 04/10/19 22:45 Active Medications Albuterol Sulfate (Ventolin 0.083% Nebulizer Soln -) 1 amp NEB Q4H PRN PRN Reason: SHORT OF BREATH/WHEEZING Albuterol/Ipratropium (Duoneb -) 1 amp NEB RQID [facility] Last Admin: 04/11/19 07:51 Dose: 1 amp Aspirin (Ecotrin -) 81 mg PO DAILY [facility] Last Admin: 04/11/19 10:38 Dose: 81 mg Atorvastatin Calcium (Lipitor -) 80 mg PO HS [facility] Last Admin: 04/10/19 22:59 Dose: 80 mg Clopidogrel Bisulfate (Plavix -) 75 mg PO DAILY [facility] Last Admin: 04/11/19 10:38 Dose: 75 mg Furosemide (Lasix Injection -) 40 mg IVPUSH BID@0600,1400 [facility] Last Admin: 04/11/19 06:13 Dose: 40 mg Heparin Sodium (Porcine) (Heparin -) 5,000 unit SQ TID [facility] Last Admin: 04/11/19 06:13 Dose: 5,000 unit Hydralazine HCl (Apresoline -) 100 mg PO TID [facility] Last Admin: 04/11/19 06:09 Dose: 100 mg Insulin Aspart (Novolog Vial Sliding Scale -) [address] [facility]; Protocol Last Admin: 04/11/19 11:04 Dose: 6 units Isosorbide Mononitrate (Imdur -) 60 mg PO DAILY [facility] Last Admin: 04/11/19 10:38 Dose: 60 mg Labetalol HCl (Normodyne -) 400 mg PO TID [facility] Last Admin: 04/11/19 06:09 Dose: 400 mg Nifedipine (Procardia Xl -) 120 mg PO DAILY [facility] Last Admin: 04/11/19 10:38 Dose: 120 mg Spironolactone (Aldactone -) 50 mg PO DAILY [facility] Last Admin: 04/11/19 10:37 Dose: 50 mg Constitutional: Yes: No Distress, Obese Eyes: Yes: Conjunctiva Clear, EOM Intact HENT: Yes: Atraumatic, Normocephalic Neck: Yes: Supple, Trachea Midline Cardiovascular: Yes: Regular Rate and Rhythm Respiratory: Yes: Cough, Diminished, Rales, Rhonchi. No: Accessory Muscle Use, Stridor, Wheezes ...Inspection: Yes: WNL ...Clubbing: No Gastrointestinal: Yes: WNL, Normal Bowel Sounds, Soft, Abdomen, Obese Renal/: Yes: WNL Musculoskeletal: Yes: WNL Extremities: Yes: WNL Edema: Yes Peripheral Pulses WNL: Yes Integumentary: Yes: WNL Neurological: Yes: WNL, Alert, Oriented ...Motor Strength: WNL Psychiatric: Yes: WNL, Alert, Oriented Labs: Laboratory Results - last 24 hr 04/10/19 04/10/19 04/10/19 10:50 15:00 16:30 WBC RBC Hgb Hct MCV MCH MCHC RDW Plt Count MPV Absolute Neuts (auto) Neutrophils % Lymphocytes % Monocytes % Eosinophils % Basophils % Nucleated RBC % PT with INR INR Sodium Potassium Chloride Carbon Dioxide Anion Gap BUN Creatinine Est GFR (CKD-EPI)AfAm Est GFR (CKD-EPI)NonAf POC Glucometer 309 Random Glucose Hemoglobin A1c % Calcium Phosphorus Magnesium Total Bilirubin AST ALT Alkaline Phosphatase Troponin I 0.02 Total Protein Albumin Influenza A (Rapid) Negative Influenza B (Rapid) Negative 04/10/19 04/11/19 04/11/19 22:29 05:34 05:34 WBC 8.5 RBC 3.22 L Hgb 9.9 L Hct 30.4 L MCV 94.6 MCH 30.7 MCHC 32.4 RDW 15.8 Plt Count 319 MPV 7.3 L Absolute Neuts (auto) 6.0 Neutrophils % 70.5 Lymphocytes % 19.0 D Monocytes % 7.5 Eosinophils % 2.5 Basophils % 0.5 Nucleated RBC % 0 PT with INR INR Sodium 138 Potassium 3.8 Chloride 106 Carbon Dioxide 26 Anion Gap 7 L BUN 24.0 H Creatinine 1.5 H Est GFR (CKD-EPI)AfAm 59.05 Est GFR (CKD-EPI)NonAf 50.95 POC Glucometer 219 Random Glucose 227 H Hemoglobin A1c % Calcium 8.7 Phosphorus 3.8 Magnesium 1.9 Total Bilirubin 0.6 AST 26 ALT 33 Alkaline Phosphatase 185 H Troponin I Total Protein 7.2 Albumin 3.0 L Influenza A (Rapid) Influenza B (Rapid) 04/11/19 04/11/19 04/11/19 05:34 05:34 06:09 WBC RBC Hgb Hct MCV MCH MCHC RDW Plt Count MPV Absolute Neuts (auto) Neutrophils % Lymphocytes % Monocytes % Eosinophils % Basophils % Nucleated RBC % PT with INR 13.60 H INR 1.15 H Sodium Potassium Chloride Carbon Dioxide Anion Gap BUN Creatinine Est GFR (CKD-EPI)AfAm Est GFR (CKD-EPI)NonAf POC Glucometer 220 Random Glucose Hemoglobin A1c % 6.8 H Calcium Phosphorus Magnesium Total Bilirubin AST ALT Alkaline Phosphatase Troponin I Total Protein Albumin Influenza A (Rapid) Influenza B (Rapid) 04/11/19 11:01 WBC RBC Hgb Hct MCV MCH MCHC RDW Plt Count MPV Absolute Neuts (auto) Neutrophils % Lymphocytes % Monocytes % Eosinophils % Basophils % Nucleated RBC % PT with INR INR Sodium Potassium Chloride Carbon Dioxide Anion Gap BUN Creatinine Est GFR (CKD-EPI)AfAm Est GFR (CKD-EPI)NonAf POC Glucometer 316 Random Glucose Hemoglobin A1c % Calcium Phosphorus Magnesium Total Bilirubin AST ALT Alkaline Phosphatase Troponin I Total Protein Albumin Influenza A (Rapid) Influenza B (Rapid) Problem List - Problems (1) Cocaine abuse Code(s): F14.10 - COCAINE ABUSE, UNCOMPLICATED (2) CHF (congestive heart failure) Code(s): I50.9 - HEART FAILURE, UNSPECIFIED Qualifiers: Heart failure type: unspecified Heart failure chronicity: unspecified Qualified Code(s): I50.9 - Heart failure, unspecified (3) COPD (chronic obstructive pulmonary disease) Code(s): J44.9 - CHRONIC OBSTRUCTIVE PULMONARY DISEASE, UNSPECIFIED Qualifiers: COPD type: unspecified COPD Qualified Code(s): J44.9 - Chronic obstructive pulmonary disease, unspecified (4) CHF exacerbation Code(s): I50.9 - HEART FAILURE, UNSPECIFIED Qualifiers: Heart failure type: diastolic Qualified Code(s): I50.33 - Acute on chronic diastolic (congestive) heart failure (5) CVA (cerebral vascular accident) Code(s): I63.9 - CEREBRAL INFARCTION, UNSPECIFIED Qualifiers: CVA mechanism: occlusion Precerebral and cerebral artery: unspecified cerebral artery Qualified Code(s): I63.50 - Cerebral infarction due to unspecified occlusion or stenosis of unspecified cerebral artery (6) Carotid stenosis Code(s): I65.29 - OCCLUSION AND STENOSIS OF UNSPECIFIED CAROTID ARTERY (7) Diastolic CHF Code(s): I50.30 - UNSPECIFIED DIASTOLIC (CONGESTIVE) HEART FAILURE (8) Heart failure with reduced ejection fraction Code(s): I50.20 - UNSPECIFIED SYSTOLIC (CONGESTIVE) HEART FAILURE (9) Nicotine abuse Code(s): Z72.0 - TOBACCO USE (10) Pleural effusion Code(s): J90 - PLEURAL EFFUSION, NOT ELSEWHERE CLASSIFIED (11) Shortness of breath Code(s): R06.02 - SHORTNESS OF BREATH (12) Tobacco use Code(s): Z72.0 - TOBACCO USE (13) Acute on chronic diastolic (congestive) heart failure Code(s): I50.33 - ACUTE ON CHRONIC DIASTOLIC (CONGESTIVE) HEART FAILURE (14) CAD (coronary artery disease) Code(s): I25.10 - ATHSCL HEART DISEASE OF [place] CORONARY ARTERY W/O ANG PCTRS Qualifiers: Coronary Disease-Associated Artery/Lesion type: [place] artery [place] vs. transplanted heart: [place] heart Associated angina: without angina Qualified Code(s): I25.10 - Atherosclerotic heart disease of [place] coronary artery without angina pectoris (15) CKD (chronic kidney disease) stage 3, GFR 30-59 ml/min Code(s): N18.3 - CHRONIC KIDNEY DISEASE, STAGE 3 (MODERATE) (16) Carotid stenosis, left Code(s): I65.22 - OCCLUSION AND STENOSIS OF LEFT CAROTID ARTERY (17) Cerebrovascular disease Code(s): I67.9 - CEREBROVASCULAR DISEASE, UNSPECIFIED (18) Diabetes Code(s): E11.9 - TYPE 2 DIABETES MELLITUS WITHOUT COMPLICATIONS Qualifiers: Diabetes mellitus type: type 2 (19) HTN (hypertension) Code(s): I10 - ESSENTIAL (PRIMARY) HYPERTENSION Qualifiers: Hypertension type: essential hypertension Qualified Code(s): I10 - Essential (primary) hypertension (20) History of myocardial infarction Code(s): I25.2 - OLD MYOCARDIAL INFARCTION (21) Hyperlipidemia Code(s): E78.5 - HYPERLIPIDEMIA, UNSPECIFIED Qualifiers: Hyperlipidemia type: pure hypercholesterolemia Qualified Code(s): E78.00 - Pure hypercholesterolemia, unspecified (22) Back pain Code(s): M54.9 - DORSALGIA, UNSPECIFIED Qualifiers: Back pain location: thoracic back pain Chronicity: acute Assessment/Plan Lasix Monitor off ABX as I do not suspect an infectious process No smoking and illicit substances was counseled Supplemental O2 as needed BD [place] PRN Monitor off systemic steroids for now Daily weights Sleep screen Dr Azar Problem List - Problems (1) Cocaine abuse Code(s): F14.10 - COCAINE ABUSE, UNCOMPLICATED (2) CHF (congestive heart failure) Code(s): I50.9 - HEART FAILURE, UNSPECIFIED Qualifiers: Heart failure type: unspecified Heart failure chronicity: unspecified Qualified Code(s): I50.9 - Heart failure, unspecified (3) COPD (chronic obstructive pulmonary disease) Code(s): J44.9 - CHRONIC OBSTRUCTIVE PULMONARY DISEASE, UNSPECIFIED Qualifiers: COPD type: unspecified COPD Qualified Code(s): J44.9 - Chronic obstructive pulmonary disease, unspecified (4) CHF exacerbation Code(s): I50.9 - HEART FAILURE, UNSPECIFIED Qualifiers: Heart failure type: diastolic Qualified Code(s): I50.33 - Acute on chronic diastolic (congestive) heart failure (5) CVA (cerebral vascular accident) Code(s): I63.9 - CEREBRAL INFARCTION, UNSPECIFIED Qualifiers: CVA mechanism: occlusion Precerebral and cerebral artery: unspecified cerebral artery Qualified Code(s): I63.50 - Cerebral infarction due to unspecified occlusion or stenosis of unspecified cerebral artery (6) Carotid stenosis Code(s): I65.29 - OCCLUSION AND STENOSIS OF UNSPECIFIED CAROTID ARTERY (7) Diastolic CHF Code(s): I50.30 - UNSPECIFIED DIASTOLIC (CONGESTIVE) HEART FAILURE (8) Heart failure with reduced ejection fraction Code(s): I50.20 - UNSPECIFIED SYSTOLIC (CONGESTIVE) HEART FAILURE (9) Nicotine abuse Code(s): Z72.0 - TOBACCO USE (10) Pleural effusion Code(s): J90 - PLEURAL EFFUSION, NOT ELSEWHERE CLASSIFIED (11) Shortness of breath Code(s): R06.02 - SHORTNESS OF BREATH (12) Tobacco use Code(s): Z72.0 - TOBACCO USE (13) Acute on chronic diastolic (congestive) heart failure Code(s): I50.33 - ACUTE ON CHRONIC DIASTOLIC (CONGESTIVE) HEART FAILURE (14) CAD (coronary artery disease) Code(s): I25.10 - ATHSCL HEART DISEASE OF [place] CORONARY ARTERY W/O ANG PCTRS Qualifiers: Coronary Disease-Associated Artery/Lesion type: [place] artery [place] vs. transplanted heart: [place] heart Associated angina: without angina Qualified Code(s): I25.10 - Atherosclerotic heart disease of [place] coronary artery without angina pectoris (15) CKD (chronic kidney disease) stage 3, GFR 30-59 ml/min Code(s): N18.3 - CHRONIC KIDNEY DISEASE, STAGE 3 (MODERATE) (16) Carotid stenosis, left Code(s): I65.22 - OCCLUSION AND STENOSIS OF LEFT CAROTID ARTERY (17) Cerebrovascular disease Code(s): I67.9 - CEREBROVASCULAR DISEASE, UNSPECIFIED (18) Diabetes Code(s): E11.9 - TYPE 2 DIABETES MELLITUS WITHOUT COMPLICATIONS Qualifiers: Diabetes mellitus type: type 2 (19) HTN (hypertension) Code(s): I10 - ESSENTIAL (PRIMARY) HYPERTENSION Qualifiers: Hypertension type: essential hypertension Qualified Code(s): I10 - Essential (primary) hypertension (20) History of myocardial infarction Code(s): I25.2 - OLD MYOCARDIAL INFARCTION (21) Hyperlipidemia Code(s): E78.5 - HYPERLIPIDEMIA, UNSPECIFIED Qualifiers: Hyperlipidemia type: pure hypercholesterolemia Qualified Code(s): E78.00 - Pure hypercholesterolemia, unspecified (22) Back pain Code(s): M54.9 - DORSALGIA, UNSPECIFIED Qualifiers: Back pain location: thoracic back pain Chronicity: acute
--- NOTE | 2019-04-11 12:03 | CONS ---
DATE OF CONSULTATION: 04/11/2019 REQUESTED BY: Hospitalist service CHIEF COMPLAINT: Dyspnea, cough productive of clear sputum, increasing bilateral lower extremity edema. HISTORY: A 58-year-old male of descent known to our service from several recent admissions. Known history of coronary artery disease status post myocardial infarction, status post percutaneous coronary intervention stenting, angina pectoris, diastolic left ventricular dysfunction with class 1-2 [place] Heart Association classification left ventricular failure, hypertensive cardiovascular disease, labile blood pressure, [id number] diabetes mellitus, hypercholesterolemia, cerebrovascular disease, transient ischemic attack, carotid stenosis, post carotid endarterectomy, chronic obstructive pulmonary disease, polysubstance abuse. Presented to [facility] with progressive dyspnea, which has been noted over the last several days and, in addition, increasing bilateral lower extremity edema. Although patient stated that he has been compliant with medical therapy administration, admits dietary indiscretion. Patient in addition reported cough productive of clear sputum. Patient denied any chest discomfort. Patient reported orthopnea but denied any paroxysmal or nocturnal dyspnea. Patient denied any palpitations, dizziness, lightheadedness, or syncope. Patient reported fatigue and tiredness. PAST MEDICAL HISTORY: Coronary artery disease status post myocardial infarction, status post percutaneous coronary intervention stenting, angina pectoris, diastolic left ventricular dysfunction with chronic class 1-2 [place] Heart Association classification left ventricular failure, hypertensive cardiovascular disease, diabetes mellitus, hypercholesterolemia, cerebrovascular disease, transient ischemic attack, carotid stenosis, post carotid endarterectomy, chronic obstructive pulmonary disease, gastroesophageal reflux disease, chronic kidney disease, degenerative lumbosacral disk disease with chronic low back pain syndrome. SOCIAL HISTORY: Smoker. In addition, admits to alcohol intake and cocaine abuse. FAMILY HISTORY: Positive for coronary artery disease. ALLERGIES: IRMA INHIBITOR in the form of angioedema. MEDICAL THERAPY: Currently includes albuterol nebulizer every 4 hours as needed, aspirin 81 mg once a day, Lipitor 80 mg once a day, Plavix 75 mg once a day, Lasix 40 mg IV push twice a day, subcutaneous heparin 5000 units 3 times a day, hydralazine 100 mg 3 times a day, insulin coverage, Imdur 60 mg once a day, labetalol 400 mg 3 times a day, Procardia XL 120 mg once a day, Aldactone 50 mg once a day. REVIEW OF SYSTEMS: Head and Neck: Denies headache, photophobia, blurring of vision. Respiratory: Cough productive of clear production. Cardiovascular: As noted above. Gastrointestinal: Denies nausea, vomiting, constipation. Genitourinary: No symptoms reported. Musculoskeletal: No symptoms reported. PHYSICAL EXAMINATION: Vital Signs: Blood pressure is 158/105 mmHg, pulse rate is 78 beats per minute. Head and Neck: Pupils equal, reactive to light and accommodation. Extraocular muscles are intact. Anicteric sclerae. Negative JVD. No bruits appreciated. Chest: Bilateral scattered rhonchi. Diminished breath sounds at the bases with bilateral basilar rales. Cardiovascular: S1, S2. Regular. Grade 1/6 to 2/6 systolic ejection murmur. No clicks or gallops. Abdomen: Soft, benign. Normoactive bowel sounds. Extremities: Have 1+ edema bilaterally, 1 to 2+ bilateral distal pulses. DIAGNOSTIC DATA: B-type natriuretic peptide was 3576. Troponin 0.02. CBC revealed white cell count 8.5, hemoglobin 9.9, platelet count 319. Basic metabolic profile revealed a sodium 138, potassium 3.8, BUN 24, creatinine 1.5, glucose 327. ABG revealed pH 7.39, PCO2 of 38.8, PO2 of 69.4, saturation 92.2%. CT scan of the chest performed revealed small bilateral pleural effusion, multi chamber cardiomegaly, bilateral upper and lower lobe ground-glass parenchymal opacity consistent with vascular congestion. EKG revealed sinus rhythm at 84 beats per minute with increased voltage and nonspecific T-wave abnormality. Abdominal ultrasound revealed evidence of distention of the hepatic veins and the inferior vena cava, aneurysmal dilatation of the infrarenal aorta. ASSESSMENT: 1. Clinical presentation is consistent with acute on chronic class 2-3 [place] Heart Association classification left ventricular failure probably precipitated by dietary noncompliance, unclear past medical therapy administration noncompliance in addition. 2. Chronic obstructive pulmonary disease with probable acute exacerbation. 3. Coronary artery disease with history of myocardial infarction, post percutaneous coronary intervention stenting angina pectoris. 4. Hypertensive cardiovascular disease, labile blood pressure not at goal. 5. Diabetes mellitus. 6. Hypercholesterolemia. 7. History of cerebrovascular disease/transient ischemic attack. 8. Carotid stenosis post carotid endarterectomy. 9. History of abdominal aortic aneurysm 4.3 cm infrarenal with evidence of mural thrombus. 10. Chronic kidney disease. 11. Anemia. 12. Substance abuse including cocaine and alcohol. 13. History of angioedema related to dmtlyroveam-bfahpsvifi-cnhupl inhibitor therapy administration. RECOMMENDATION: 1. Continuation of Lasix and Aldactone therapies with close monitoring of renal function electrolytes. 2. Continuation of labetalol therapy. 3. Continuation of hydralazine and Imdur therapies. Patient may switch to BiDil therapy as outpatient. 4. Continuation of Procardia XL therapy. 5. Continuation of aspirin therapy. 6. Continuation of Lipitor therapy. 7. Continuation of bronchodilators as per the primary team. 8. Emphasized the importance of compliance to therapy administration and dietary restrictions including caloric restriction and salt restriction. 9. Patient was strongly counseled smoking cessation and abstinence. Thank you for kind referral. JOSEPH CORTES M.D. KRISTOFER/[id number]
--- NOTE | 2019-04-11 14:16 | PN ---
Physical Exam: SUBJECTIVE: Patient seen and examined. He says he feels less SOB. He reports feeling tired when walking. OBJECTIVE: Vital Signs Period Temp Pulse Resp BP Sys/Caal Pulse Ox Last 24 Hr 97.8 F-99.6 F 78-87 17-20 137-163/90-105 95-98 GENERAL: The patient is awake, alert, and fully oriented, in no acute distress. LUNGS: Breath sounds equal, clear to auscultation bilaterally, no wheezes, no crackles, no accessory muscle use. HEART: Regular rate and rhythm, S1, S2 without murmur, rub or gallop. ABDOMEN: Obese, soft, nontender, nondistended, normoactive bowel sounds, no guarding, no rebound, no hepatosplenomegaly, no masses. EXTREMITIES: 2+ pulses, warm, well-perfused, 2+ edema. Laboratory Results - last 24 hr 04/10/19 04/10/19 04/10/19 15:00 16:30 22:29 WBC RBC Hgb Hct MCV MCH MCHC RDW Plt Count MPV Absolute Neuts (auto) Neutrophils % Lymphocytes % Monocytes % Eosinophils % Basophils % Nucleated RBC % PT with INR INR Sodium Potassium Chloride Carbon Dioxide Anion Gap BUN Creatinine Est GFR (CKD-EPI)AfAm Est GFR (CKD-EPI)NonAf POC Glucometer 309 219 Random Glucose Hemoglobin A1c % Calcium Phosphorus Magnesium Total Bilirubin AST ALT Alkaline Phosphatase Troponin I 0.02 Total Protein Albumin 04/11/19 04/11/19 04/11/19 05:34 05:34 05:34 WBC 8.5 RBC 3.22 L Hgb 9.9 L Hct 30.4 L MCV 94.6 MCH 30.7 MCHC 32.4 RDW 15.8 Plt Count 319 MPV 7.3 L Absolute Neuts (auto) 6.0 Neutrophils % 70.5 Lymphocytes % 19.0 D Monocytes % 7.5 Eosinophils % 2.5 Basophils % 0.5 Nucleated RBC % 0 PT with INR INR Sodium 138 Potassium 3.8 Chloride 106 Carbon Dioxide 26 Anion Gap 7 L BUN 24.0 H Creatinine 1.5 H Est GFR (CKD-EPI)AfAm 59.05 Est GFR (CKD-EPI)NonAf 50.95 POC Glucometer Random Glucose 227 H Hemoglobin A1c % 6.8 H Calcium 8.7 Phosphorus 3.8 Magnesium 1.9 Total Bilirubin 0.6 AST 26 ALT 33 Alkaline Phosphatase 185 H Troponin I Total Protein 7.2 Albumin 3.0 L 04/11/19 04/11/19 04/11/19 05:34 06:09 11:01 WBC RBC Hgb Hct MCV MCH MCHC RDW Plt Count MPV Absolute Neuts (auto) Neutrophils % Lymphocytes % Monocytes % Eosinophils % Basophils % Nucleated RBC % PT with INR 13.60 H INR 1.15 H Sodium Potassium Chloride Carbon Dioxide Anion Gap BUN Creatinine Est GFR (CKD-EPI)AfAm Est GFR (CKD-EPI)NonAf POC Glucometer 220 316 Random Glucose Hemoglobin A1c % Calcium Phosphorus Magnesium Total Bilirubin AST ALT Alkaline Phosphatase Troponin I Total Protein Albumin Active Medications Generic Name Dose Route Start Last Admin Trade Name Freq PRN Reason Stop Dose Admin Albuterol Sulfate 1 amp 04/11/19 08:01 Ventolin 0.083% Nebulizer Soln - NEB Q4H PRN SHORT OF BREATH/WHEEZING Albuterol/Ipratropium 1 amp 04/10/19 16:00 04/11/19 12:10 Duoneb - NEB 1 amp RQID [facility] Administration Aspirin 81 mg 04/11/19 10:00 04/11/19 10:38 Ecotrin - PO 81 mg DAILY [facility] Administration Atorvastatin Calcium 80 mg 04/10/19 22:00 04/10/19 22:59 Lipitor - PO 80 mg HS [facility] Administration Clopidogrel Bisulfate 75 mg 04/11/19 10:00 04/11/19 10:38 Plavix - PO 75 mg DAILY [facility] Administration Furosemide 40 mg 04/10/19 14:00 04/11/19 14:01 Lasix Injection - IVPUSH 40 mg BID@0600,1400 [facility] Administration Heparin Sodium (Porcine) 5,000 unit 04/10/19 14:00 04/11/19 14:01 Heparin - SQ 5,000 unit TID [facility] Administration Hydralazine HCl 100 mg 04/10/19 14:00 04/11/19 14:00 Apresoline - PO Not Given TID [facility] Insulin Aspart 1 vial 04/10/19 16:30 04/11/19 11:04 Novolog Vial Sliding Scale - SQ 6 units ACHS [facility] Administration Protocol Isosorbide Mononitrate 60 mg 04/11/19 10:00 04/11/19 10:38 Imdur - PO 60 mg DAILY [facility] Administration Labetalol HCl 400 mg 04/10/19 14:00 04/11/19 14:01 Normodyne - PO 400 mg TID [facility] Administration Nifedipine 120 mg 04/11/19 10:00 04/11/19 10:38 Procardia Xl - PO 120 mg DAILY [facility] Administration Spironolactone 50 mg 04/11/19 10:00 04/11/19 10:37 Aldactone - PO 50 mg DAILY [facility] Administration ASSESSMENT/PLAN: This is a 58 year old man with a history of HTN, hyperlipidemia, CAD, NM, stents , chronic diastolic heart failure, type 2 DM, COPD/asthma, right carotid endarterectomy, stage 3 CKD, TIA, AAA, cocaine and alcohol abuse who presented to the ED with chest pain and shortness of breath. 1. Acute on chronic diastolic heart failure - Improving - Continue Lasix IV, Aldactone - Chest CT shows bilateral small pleural effusions, cardiomegaly, dilated main pulmonary artery c/w increased PA pressure, bilateral ground glass parenchymal opacity, mild left posterior basilar opacity 2. Chest pain secondary to acute CHF - Resolved 3. Abdominal pain - Resolved - US shows bilateral small pleural effusions, distended hepatic veins and IVC , non-obstructing right renal calculus, aneurysmal dilatation of infrarenal aorta 4. HTN - Continue Procardia XL, Labetalol, Hydralazine, Aldactone, Lasix 5. Hyperlipidemia - Continue Lipitor 6. CAD, history of NM, PCI with stents - Continue aspirin, Plavix, Lipitor, Imdur 7. Type 2 DM - Continue Novolog sliding scale 8. Asthma/COPD - Stable - Continue DuoNeb 9. Stage 3 CKD - Monitor BUN, creatinine with diuresis 10. History of TIA - Continue aspirin, Plavix, Lipitor 11. History of right carotid endarterectomy 12. AAA 13. Polysubstance abuse 14. Anemia secondary to chronic illness - Monitor hgb Visit type - Emergency Visit Emergency Visit: Yes ED Registration Date: 04/10/19 Care time: The patient presented to the Emergency Department on the above date and was hospitalized for further evaluation of their emergent condition. - New Patient This patient is new to me today: Yes Date on this admission: 04/11/19 - Critical Care Critical Care patient: No - Discharge Referral Referred to [facility] Med P.C.: No
[2019-04-11] MEDS: ATORVASTATIN CA 80 MG TABLET (FP) PO SCH (22:11)
[2019-04-12] MEDS: LABETALOL HCL 200 MG TABLET (FP) PO SCH ×3 (06:06→22:40)
[2019-04-12] MEDS: hydrALAZINE HCL 50 MG TABLET (FP) PO SCH ×3 (06:06→22:40)
[2019-04-12] MEDS: FUROSEMIDE 40 MG/4 ML INJECTABLE VIAL IVPUSH SCH ×2 (06:06→13:50)
[2019-04-12] MEDS: HEPARIN NA (PORCINE) 5,000 UNITS/ML 1ML VIAL SQ SCH ×3 (06:12→22:41)
[2019-04-12] MEDS: INSULIN SLIDING SCALE (NOVOLOG) 1 VIAL SQ SCH ×4 (06:20→22:41)
[2019-04-12 06:55] LABS: HEMOGLOBIN 9.7 GM/dL (11.7-16.9); MCH 30.2 pg (25.7-33.7); MCHC 32.3 g/dl (32.0-35.9); MEAN CELL VOLUME 93.5 fl (80-96); MEAN PLT VOLUME 7.3 fl (7.5-11.1); PLATELET COUNT 324 K/MM3 (134-434); RBC 3.21 M/mm3 (4.00-5.60); RDW 15.8 % (11.9-15.9); WHITE BLOOD COUNT 7.7 K/mm3 (4.0-10.0)
[2019-04-12] MEDS ORDERED: BENZOCAINE/MENTH/CETYLPYRD CL 1 EACH LOZENGE MM PRN (07:10)
[2019-04-12] MEDS ORDERED: guaiFENesin 200 MG/10 ML 10 ML UNIT-DOSE CUPS PO PRN (07:10)
[2019-04-12 07:13] LABS: CALCIUM 8.7 mg/dL (8.5-10.1); CREATININE 1.5 mg/dL (0.55-1.3); POTASSIUM 3.9 mmol/L (3.5-5.1)
[2019-04-12] MEDS: ALBUTEROL SO4 2.5/IPRATROPIUM 0.5 INH SOL 3 ML VIAL.NEB. NEB SCH ×4 (07:15→21:10)
--- NOTE | 2019-04-12 08:21 | PN ---
Physical Exam: SUBJECTIVE: Patient seen and examined at bedside. Pt states that he still is having a productive cough and chest pain. OBJECTIVE: Vital Signs Period Temp Pulse Resp BP Sys/Caal Pulse Ox Last 24 Hr 97.6 F-98.2 F 70-88 20-20 102-152/74-101 95-96 GENERAL: The patient is awake, alert, and fully oriented, in no acute distress. HEAD: Normal with no signs of trauma. EYES: extraocular movements intact ENT: oropharynx clear without exudates, moist mucous membranes. LUNGS: scattered wheezes b/l,no accessory muscle use. HEART: Regular rate and rhythm, S1, S2 ABDOMEN: Soft, nontender, nondistended, normoactive bowel sounds, no guarding, no rebound EXTREMITIES: 2+ pulses, warm, well-perfused, 2+ pitting edema b/l SKIN: Warm, dry, normal turgor, no rashes or lesions noted CBC, BMP 04/12/19 05:54 04/12/19 05:54 Current Medications Albuterol Sulfate (Ventolin 0.083% Nebulizer Soln -) 1 amp NEB Q4H PRN PRN Reason: SHORT OF BREATH/WHEEZING Albuterol/Ipratropium (Duoneb -) 1 amp NEB RQID [facility] Last Admin: 04/11/19 20:30 Dose: 1 amp Aspirin (Ecotrin -) 81 mg PO DAILY [facility] Last Admin: 04/11/19 10:38 Dose: 81 mg Atorvastatin Calcium (Lipitor -) 80 mg PO HS [facility] Last Admin: 04/11/19 22:11 Dose: 80 mg Benzocaine/Menthol (Cepacol Lozenge -) 1 each MM PRN PRN PRN Reason: SORE THROAT Clopidogrel Bisulfate (Plavix -) 75 mg PO DAILY [facility] Last Admin: 04/11/19 10:38 Dose: 75 mg Furosemide (Lasix Injection -) 40 mg IVPUSH DAILY [facility] Guaifenesin (Robitussin -) 10 ml PO Q8H PRN PRN Reason: COUGH Heparin Sodium (Porcine) (Heparin -) 5,000 unit SQ TID [facility] Last Admin: 04/12/19 06:12 Dose: 5,000 unit Hydralazine HCl (Apresoline -) 100 mg PO TID [facility] Last Admin: 04/12/19 06:06 Dose: 100 mg Insulin Aspart (Novolog Vial Sliding Scale -) 1 vial SQ [facility]; Protocol Last Admin: 04/12/19 06:20 Dose: 4 units Isosorbide Mononitrate (Imdur -) 60 mg PO DAILY [facility] Last Admin: 04/11/19 10:38 Dose: 60 mg Labetalol HCl (Normodyne -) 400 mg PO TID [facility] Last Admin: 04/12/19 06:06 Dose: 400 mg Nifedipine (Procardia Xl -) 120 mg PO DAILY [facility] Last Admin: 04/11/19 10:38 Dose: 120 mg Spironolactone (Aldactone -) 50 mg PO DAILY [facility] Last Admin: 04/11/19 10:37 Dose: 50 mg ASSESSMENT/PLAN: 58 yo M PMH of HTN, HLD, CAD ( [place], stents), HFpEF,DM 2 , COPD/asthma, right carotid endarterectomy, stage 3 CKD, TIA, AAA (stable), Polysubstance abuse ( cocaine and alcohol)presented to the ED with chest pain and shortness of breath. Acute on chronic HFpEF - -Continue Lasix IV daily , Aldactone -Chest CT shows bilateral small pleural effusions, cardiomegaly, dilated main pulmonary artery c/w increased PA pressure, bilateral ground glass parenchymal opacity, mild left posterior basilar opacity Abdominal pain - US shows bilateral small pleural effusions, distended hepatic veins and IVC, non-obstructing right renal calculus, aneurysmal dilatation of infrarenal aorta HTN - c/w Procardia XL, Labetalol, Hydralazine, Aldactone, Lasix Hyperlipidemia -c/w Continue Lipitor CAD,s/p PCI with stents - Continue aspirin, Plavix, Lipitor, Imdur DM: -ISS/ BGM Asthma/COPD - Continue DuoNeb, Ventolin prn -solumedrol 40 q 8 -pulm (Dr. Mcdaniel) recs appreciated - NIKOS sleep screen on DC Stage 3 CKD - Monitor BUN, creatinine -avoid nephrotoxic agents -pt Cr at baseline History of TIA - Continue aspirin, Plavix, Lipitor AAA -stable at 4.3cm, compared to 12/2018 Polysubstance abuse -not actively withdrawing Anemia secondary to chronic illness -H/H stable Visit type - Emergency Visit Emergency Visit: No - New Patient This patient is new to me today: No - Critical Care Critical Care patient: No - Discharge Referral Referred to [facility] Med P.C[facility] No ATTENDING PHYSICIAN STATEMENT I saw and evaluated the patient. I reviewed the resident's note and discussed the case with the resident. I agree with the resident's findings and plan as documented. SUBJECTIVE: OBJECTIVE: ASSESSMENT AND PLAN:
--- NOTE | 2019-04-12 09:21 | PN ---
Progress Note (short form) - Note Progress Note: Chief Complaint: Events noted, notes reviewed, reports persistent dyspnea, denies chest pain, reports persistent cough productive of clear sputum, non sustained VT noted History of Present Illness: Seen and examined on telemetry. Events noted, notes reviewed, reports persistent dyspnea, denies chest pain, reports persistent cough productive of clear sputum, non sustained VT noted - Current Medication List Current Medications Albuterol Sulfate (Ventolin 0.083% Nebulizer Soln -) 1 amp NEB Q4H PRN PRN Reason: SHORT OF BREATH/WHEEZING Albuterol/Ipratropium (Duoneb -) 1 amp NEB RQID [facility] Last Admin: 04/11/19 20:30 Dose: 1 amp Aspirin (Ecotrin -) 81 mg PO DAILY [facility] Last Admin: 04/11/19 10:38 Dose: 81 mg Atorvastatin Calcium (Lipitor -) 80 mg PO HS [facility] Last Admin: 04/11/19 22:11 Dose: 80 mg Benzocaine/Menthol (Cepacol Lozenge -) 1 each MM PRN PRN PRN Reason: SORE THROAT Clopidogrel Bisulfate (Plavix -) 75 mg PO DAILY [facility] Last Admin: 04/11/19 10:38 Dose: 75 mg Furosemide (Lasix Injection -) 40 mg IVPUSH DAILY [facility] Guaifenesin (Robitussin -) 10 ml PO Q8H PRN PRN Reason: COUGH Heparin Sodium (Porcine) (Heparin -) 5,000 unit SQ TID [facility] Last Admin: 04/12/19 06:12 Dose: 5,000 unit Hydralazine HCl (Apresoline -) 100 mg PO TID [facility] Last Admin: 04/12/19 06:06 Dose: 100 mg Insulin Aspart (Novolog Vial Sliding Scale -) 1 vial SQ [facility]; Protocol Last Admin: 04/12/19 06:20 Dose: 4 units Isosorbide Mononitrate (Imdur -) 60 mg PO DAILY [facility] Last Admin: 04/11/19 10:38 Dose: 60 mg Labetalol HCl (Normodyne -) 400 mg PO TID [facility] Last Admin: 04/12/19 06:06 Dose: 400 mg Nifedipine (Procardia Xl -) 120 mg PO DAILY [facility] Last Admin: 04/11/19 10:38 Dose: 120 mg Spironolactone (Aldactone -) 50 mg PO DAILY [facility] Last Admin: 04/11/19 10:37 Dose: 50 mg - Review of Systems Constitutional: denies: Chills, Fever Cardiovascular: As noted above Respiratory: reports: Cough, denies: Hemoptysis, Orthopnea, PND Gastrointestinal: denies: Abdominal Pain, Constipation, Melena, Nausea, Rectal Bleeding, Vomiting Genitourinary: denies: Dysuria, Hematuria Musculoskeletal: denies: Back Pain, Joint Pain Neurological: denies: Dizziness, Syncope. denies: Confusion, Headache, Numbness , Seizure, Unsteady Gait - Objective Vital Signs: Last Vital Signs Temp Pulse Resp BP Pulse Ox 98.2 F 88 20 152/101 H 96 04/12/19 06:00 04/12/19 06:00 04/12/19 06:00 04/12/19 06:00 04/11/19 21:00 Intake & Output 04/09/19 04/10/19 04/11/19 04/12/19 23:59 23:59 23:59 23:59 Intake Total 370 790 30 Balance 370 790 30 Weight 244 lb 4 oz 244 lb 3.2 oz 248 lb 12.8 oz Neck: Supple Negative JVD Cardiovascular: S1 S2 Regular Rate and Rhythm Respiratory: Scattered Rhonchi Bilaterally Gastrointestinal: Soft Benign Normal Bowel Sounds Ext: Edema Labs: CBC, BMP 04/12/19 05:54 04/12/19 05:54 Hepatic Panel Total Bilirubin 0.6 mg/dL (0.2-1) 04/11/19 05:34 AST 26 U/L (15-37) 04/11/19 05:34 ALT 33 U/L (13-61) 04/11/19 05:34 Alkaline Phosphatase 185 U/L (45-117) H 04/11/19 05:34 Albumin 3.0 g/dl (3.4-5.0) L 04/11/19 05:34 INR, PTT INR 1.15 (0.83-1.09) H 04/11/19 05:34 Assessment/Plan ASSESSMENT: 1. Clinical presentation is consistent with acute on chronic class II-III NYHA classification LV diastolic failure, probably precipitated by dietary non compliance, unclear if medical therapy non compliance in addition 2. COPD with probable acute exacerbation 3. CAD history of PR/PCI/stent angina pectoris 4. Hypertensive cardiovascular disease 5. DM 6. Hypercholesterolemia 7. History of cerebro-vascular disease 8. Post right CEA 9. History of AAA/4.3 cm infra-renal with mural thrombus 10. CKD 11. Anemia 12. History of substance abuse (Cocaine) 13. History of angioedema related to ACEI PLAN: 1. Continue Furosemide and Spironolactone- dose titration with close monitoring of renal function and electrolytes 2. Continue Labetolol 3. Continue Hydralazine and Imdur/BiDil as outpatient 4. Continue Procardia XL 5. Continue ASA 6. Continue Lipitor 7. Continue bronchodilators as per the primary team 8. Emphasized importance of compliance to therapy administration and dietary restrictions including caloric restriction/salt restriction 9. Counselled substance abuse and smoking cessation Fabienne Hayward MD
[2019-04-12] MEDS: CLOPIDOGREL BISULFATE 75 MG TABLET (FP) PO SCH (09:29)
[2019-04-12] MEDS: ISOSORBIDE MONONITRATE 60 MG TAB.SR.24H (FP) PO SCH (09:29)
[2019-04-12] MEDS: NIFEdipine E.R 60 MG TABLET PO SCH (09:29)
[2019-04-12] MEDS: ASPIRIN COATED 81 MG TABLET.EC PO SCH (09:29)
[2019-04-12] MEDS: SPIRONOLACTONE 25 MG TABLET (FP) PO SCH ×2 (09:29→22:40)
[2019-04-12] MEDS ORDERED: FUROSEMIDE 40 MG/4 ML INJECTABLE VIAL IVPUSH SCH (10:00)
--- NOTE | 2019-04-12 11:20 | PN ---
Progress Note, Physician History of Present Illness: PULMONARY ALERT,C/O SOB,COUGH CONGESTION - Current Medication List Current Medications: Active Medications Albuterol Sulfate (Ventolin 0.083% Nebulizer Soln -) 1 amp NEB Q4H PRN PRN Reason: SHORT OF BREATH/WHEEZING Albuterol/Ipratropium (Duoneb -) 1 amp NEB RQID [facility] Last Admin: 04/11/19 20:30 Dose: 1 amp Aspirin (Ecotrin -) 81 mg PO DAILY [facility] Last Admin: 04/12/19 09:29 Dose: 81 mg Atorvastatin Calcium (Lipitor -) 80 mg PO HS [facility] Last Admin: 04/11/19 22:11 Dose: 80 mg Benzocaine/Menthol (Cepacol Lozenge -) 1 each MM PRN PRN PRN Reason: SORE THROAT Clopidogrel Bisulfate (Plavix -) 75 mg PO DAILY [facility] Last Admin: 04/12/19 09:29 Dose: 75 mg Furosemide (Lasix Injection -) 40 mg IVPUSH BID@0600,1400 [facility] Guaifenesin (Robitussin -) 10 ml PO Q8H PRN PRN Reason: COUGH Heparin Sodium (Porcine) (Heparin -) 5,000 unit SQ TID [facility] Last Admin: 04/12/19 06:12 Dose: 5,000 unit Hydralazine HCl (Apresoline -) 100 mg PO TID [facility] Last Admin: 04/12/19 06:06 Dose: 100 mg Insulin Aspart (Novolog Vial Sliding Scale -) 1 vial SQ [facility]; Protocol Last Admin: 04/12/19 06:20 Dose: 4 units Isosorbide Mononitrate (Imdur -) 60 mg PO DAILY [facility] Last Admin: 04/12/19 09:29 Dose: 60 mg Labetalol HCl (Normodyne -) 400 mg PO TID [facility] Last Admin: 04/12/19 06:06 Dose: 400 mg Nifedipine (Procardia Xl -) 120 mg PO DAILY [facility] Last Admin: 04/12/19 09:29 Dose: 120 mg Spironolactone (Aldactone -) 50 mg PO BID [facility] Last Admin: 04/12/19 09:29 Dose: 50 mg - Objective Vital Signs: Vital Signs Temperature 98.2 F 04/12/19 06:00 Pulse Rate 88 04/12/19 06:00 Respiratory Rate 20 04/12/19 06:00 Blood Pressure 152/101 H 04/12/19 06:00 O2 Sat by Pulse Oximetry (%) 96 04/11/19 21:00 Constitutional: Yes: Well Nourished, Calm Eyes: Yes: WNL HENT: Yes: WNL Neck: Yes: WNL Cardiovascular: Yes: Regular Rate and Rhythm, S1, S2 Respiratory: Yes: Rhonchi (BILATERAL WHEEZES AND RHONCHI), Wheezes Gastrointestinal: Yes: Normal Bowel Sounds, Soft Extremities: Yes: WNL Edema: Yes Labs: CBC, BMP 04/12/19 05:54 04/12/19 05:54 INR, PTT INR 1.15 (0.83-1.09) H 04/11/19 05:34 Assessment/Plan Problem List - Problems (1) Cocaine abuse Code(s): F14.10 - COCAINE ABUSE, UNCOMPLICATED (2) CHF (congestive heart failure) Code(s): I50.9 - HEART FAILURE, UNSPECIFIED Qualifiers: Heart failure type: unspecified Heart failure chronicity: unspecified Qualified Code(s): I50.9 - Heart failure, unspecified (3) COPD (chronic obstructive pulmonary disease) Code(s): J44.9 - CHRONIC OBSTRUCTIVE PULMONARY DISEASE, UNSPECIFIED Qualifiers: COPD type: unspecified COPD Qualified Code(s): J44.9 - Chronic obstructive pulmonary disease, unspecified (4) CHF exacerbation Code(s): I50.9 - HEART FAILURE, UNSPECIFIED Qualifiers: Heart failure type: diastolic Qualified Code(s): I50.33 - Acute on chronic diastolic (congestive) heart failure (5) CVA (cerebral vascular accident) Code(s): I63.9 - CEREBRAL INFARCTION, UNSPECIFIED Qualifiers: CVA mechanism: occlusion Precerebral and cerebral artery: unspecified cerebral artery Qualified Code(s): I63.50 - Cerebral infarction due to unspecified occlusion or stenosis of unspecified cerebral artery (6) Carotid stenosis Code(s): I65.29 - OCCLUSION AND STENOSIS OF UNSPECIFIED CAROTID ARTERY (7) Diastolic CHF Code(s): I50.30 - UNSPECIFIED DIASTOLIC (CONGESTIVE) HEART FAILURE (8) Heart failure with reduced ejection fraction Code(s): I50.20 - UNSPECIFIED SYSTOLIC (CONGESTIVE) HEART FAILURE (9) Nicotine abuse Code(s): Z72.0 - TOBACCO USE (10) Pleural effusion Code(s): J90 - PLEURAL EFFUSION, NOT ELSEWHERE CLASSIFIED (11) Shortness of breath Code(s): R06.02 - SHORTNESS OF BREATH (12) Tobacco use Code(s): Z72.0 - TOBACCO USE (13) Acute on chronic diastolic (congestive) heart failure Code(s): I50.33 - ACUTE ON CHRONIC DIASTOLIC (CONGESTIVE) HEART FAILURE (14) CAD (coronary artery disease) Code(s): I25.10 - ATHSCL HEART DISEASE OF [place] CORONARY ARTERY W/O ANG PCTRS Qualifiers: Coronary Disease-Associated Artery/Lesion type: [place] artery [place] vs. transplanted heart: [place] heart Associated angina: without angina Qualified Code(s): I25.10 - Atherosclerotic heart disease of [place] coronary artery without angina pectoris (15) CKD (chronic kidney disease) stage 3, GFR 30-59 ml/min Code(s): N18.3 - CHRONIC KIDNEY DISEASE, STAGE 3 (MODERATE) (16) Carotid stenosis, left Code(s): I65.22 - OCCLUSION AND STENOSIS OF LEFT CAROTID ARTERY (17) Cerebrovascular disease Code(s): I67.9 - CEREBROVASCULAR DISEASE, UNSPECIFIED (18) Diabetes Code(s): E11.9 - TYPE 2 DIABETES MELLITUS WITHOUT COMPLICATIONS Qualifiers: Diabetes mellitus type: type 2 (19) HTN (hypertension) Code(s): I10 - ESSENTIAL (PRIMARY) HYPERTENSION Qualifiers: Hypertension type: essential hypertension Qualified Code(s): I10 - Essential (primary) hypertension (20) History of myocardial infarction Code(s): I25.2 - OLD MYOCARDIAL INFARCTION (21) Hyperlipidemia Code(s): E78.5 - HYPERLIPIDEMIA, UNSPECIFIED Qualifiers: Hyperlipidemia type: pure hypercholesterolemia Qualified Code(s): E78.00 - Pure hypercholesterolemia, unspecified (22) Back pain Code(s): M54.9 - DORSALGIA, UNSPECIFIED Qualifiers: Back pain location: thoracic back pain Chronicity: acute Assessment/Plan Lasix Monitor off ABX as I do not suspect an infectious process No smoking and illicit substances was counseled Supplemental O2 as needed BD TX PRN Daily weights Sleep screen short course of medrol Dr Mcdaniel Problem List - Problems (1) Cocaine abuse Code(s): F14.10 - COCAINE ABUSE, UNCOMPLICATED (2) CHF (congestive heart failure) Code(s): I50.9 - HEART FAILURE, UNSPECIFIED Qualifiers: Heart failure type: unspecified Heart failure chronicity: unspecified Qualified Code(s): I50.9 - Heart failure, unspecified (3) COPD (chronic obstructive pulmonary disease) Code(s): J44.9 - CHRONIC OBSTRUCTIVE PULMONARY DISEASE, UNSPECIFIED Qualifiers: COPD type: unspecified COPD Qualified Code(s): J44.9 - Chronic obstructive pulmonary disease, unspecified (4) CHF exacerbation Code(s): I50.9 - HEART FAILURE, UNSPECIFIED Qualifiers: Heart failure type: diastolic Qualified Code(s): I50.33 - Acute on chronic diastolic (congestive) heart failure (5) CVA (cerebral vascular accident) Code(s): I63.9 - CEREBRAL INFARCTION, UNSPECIFIED Qualifiers: CVA mechanism: occlusion Precerebral and cerebral artery: unspecified cerebral artery Qualified Code(s): I63.50 - Cerebral infarction due to unspecified occlusion or stenosis of unspecified cerebral artery (6) Carotid stenosis Code(s): I65.29 - OCCLUSION AND STENOSIS OF UNSPECIFIED CAROTID ARTERY (7) Diastolic CHF Code(s): I50.30 - UNSPECIFIED DIASTOLIC (CONGESTIVE) HEART FAILURE (8) Heart failure with reduced ejection fraction Code(s): I50.20 - UNSPECIFIED SYSTOLIC (CONGESTIVE) HEART FAILURE (9) Nicotine abuse Code(s): Z72.0 - TOBACCO USE (10) Pleural effusion Code(s): J90 - PLEURAL EFFUSION, NOT ELSEWHERE CLASSIFIED (11) Shortness of breath Code(s): R06.02 - SHORTNESS OF BREATH (12) Tobacco use Code(s): Z72.0 - TOBACCO USE (13) Acute on chronic diastolic (congestive) heart failure Code(s): I50.33 - ACUTE ON CHRONIC DIASTOLIC (CONGESTIVE) HEART FAILURE (14) CAD (coronary artery disease) Code(s): I25.10 - ATHSCL HEART DISEASE OF [place] CORONARY ARTERY W/O ANG PCTRS Qualifiers: Coronary Disease-Associated Artery/Lesion type: [place] artery [place] vs. transplanted heart: [place] heart Associated angina: without angina Qualified Code(s): I25.10 - Atherosclerotic heart disease of [place] coronary artery without angina pectoris (15) CKD (chronic kidney disease) stage 3, GFR 30-59 ml/min Code(s): N18.3 - CHRONIC KIDNEY DISEASE, STAGE 3 (MODERATE) (16) Carotid stenosis, left Code(s): I65.22 - OCCLUSION AND STENOSIS OF LEFT CAROTID ARTERY (17) Cerebrovascular disease Code(s): I67.9 - CEREBROVASCULAR DISEASE, UNSPECIFIED (18) Diabetes Code(s): E11.9 - TYPE 2 DIABETES MELLITUS WITHOUT COMPLICATIONS Qualifiers: Diabetes mellitus type: type 2 (19) HTN (hypertension) Code(s): I10 - ESSENTIAL (PRIMARY) HYPERTENSION Qualifiers: Hypertension type: essential hypertension Qualified Code(s): I10 - Essential (primary) hypertension (20) History of myocardial infarction Code(s): I25.2 - OLD MYOCARDIAL INFARCTION (21) Hyperlipidemia Code(s): E78.5 - HYPERLIPIDEMIA, UNSPECIFIED Qualifiers: Hyperlipidemia type: pure hypercholesterolemia Qualified Code(s): E78.00 - Pure hypercholesterolemia, unspecified (22) Back pain Code(s): M54.9 - DORSALGIA, UNSPECIFIED Qualifiers: Back pain location: thoracic back pain Chronicity: acute
[2019-04-12] MEDS: methylPREDNISolone NA SUCC 40 MG/1 ML VIAL IVPUSH SCH ×2 (11:42→17:00)
[2019-04-12] MEDS: DOCUSATE SODIUM 100 MG CAPSULE (FP) PO SCH (13:50)
--- NOTE | 2019-04-12 14:21 | PN ---
Teaching Attending Note Name of Resident: Roxane Lauren ATTENDING PHYSICIAN STATEMENT I saw and evaluated the patient. I reviewed the resident's note and discussed the case with the resident. I agree with the resident's findings and plan as documented. SUBJECTIVE: Patient complains of a cough. OBJECTIVE: Vital Signs Period Temp Pulse Resp BP Sys/Caal Pulse Ox Last 24 Hr 97.6 F-98.2 F 70-88 20-20 102-152/74-101 96-96 GENERAL: The patient is awake, alert, and fully oriented, in no acute distress. LUNGS: Breath sounds equal, bilaterall wheezes, no crackles, no accessory muscle use. HEART: Regular rate and rhythm, S1, S2 without murmur, rub or gallop. ABDOMEN: Obese, soft, nontender, nondistended, normoactive bowel sounds, no guarding, no rebound, no hepatosplenomegaly, no masses. EXTREMITIES: 2+ pulses, warm, well-perfused, 2+ edema. Laboratory Results - last 24 hr 04/11/19 04/11/19 04/11/19 17:06 19:30 22:15 WBC RBC Hgb Hct MCV MCH MCHC RDW Plt Count MPV Sodium Potassium Chloride Carbon Dioxide Anion Gap BUN Creatinine Est GFR (CKD-EPI)AfAm Est GFR (CKD-EPI)NonAf POC Glucometer 285 249 Random Glucose Calcium Magnesium Blood Type O POSITIVE Antibody Screen Negative 04/12/19 04/12/19 04/12/19 05:54 05:54 06:15 WBC 7.7 RBC 3.21 L Hgb 9.7 L Hct 30.0 L MCV 93.5 MCH 30.2 MCHC 32.3 RDW 15.8 Plt Count 324 MPV 7.3 L Sodium 135 L Potassium 3.9 Chloride 104 Carbon Dioxide 25 Anion Gap 7 L BUN 24.0 H Creatinine 1.5 H Est GFR (CKD-EPI)AfAm 59.05 Est GFR (CKD-EPI)NonAf 50.95 POC Glucometer 263 Random Glucose 279 H Calcium 8.7 Magnesium 2.0 Blood Type Antibody Screen 04/12/19 11:37 WBC RBC Hgb Hct MCV MCH MCHC RDW Plt Count MPV Sodium Potassium Chloride Carbon Dioxide Anion Gap BUN Creatinine Est GFR (CKD-EPI)AfAm Est GFR (CKD-EPI)NonAf POC Glucometer 285 Random Glucose Calcium Magnesium Blood Type Antibody Screen Current Medications Generic Name Dose Route Start Last Admin Trade Name Freq PRN Reason Stop Dose Admin Albuterol Sulfate 1 amp 04/11/19 08:01 Ventolin 0.083% Nebulizer Soln - NEB Q4H PRN SHORT OF BREATH/WHEEZING Albuterol/Ipratropium 1 amp 04/10/19 16:00 04/12/19 12:00 Duoneb - NEB 1 amp RQID [facility] Administration Aspirin 81 mg 04/11/19 10:00 04/12/19 09:29 Ecotrin - PO 81 mg DAILY [facility] Administration Atorvastatin Calcium 80 mg 04/10/19 22:00 04/11/19 22:11 Lipitor - PO 80 mg HS [facility] Administration Benzocaine/Menthol 1 each 04/12/19 07:10 Cepacol Lozenge - MM PRN PRN SORE THROAT Clopidogrel Bisulfate 75 mg 04/11/19 10:00 04/12/19 09:29 Plavix - PO 75 mg DAILY [facility] Administration Docusate Sodium 200 mg 04/12/19 12:00 04/12/19 13:50 Colace - PO 200 mg DAILY [facility] Administration Furosemide 40 mg 04/12/19 14:00 04/12/19 13:50 Lasix Injection - IVPUSH 40 mg BID@0600,1400 [facility] Administration Guaifenesin 10 ml 04/12/19 07:10 Robitussin - PO Q8H PRN COUGH Heparin Sodium (Porcine) 5,000 unit 04/10/19 14:00 04/12/19 13:49 Heparin - SQ 5,000 unit TID [facility] Administration Hydralazine HCl 100 mg 04/10/19 14:00 04/12/19 13:51 Apresoline - PO Not Given TID [facility] Insulin Aspart 1 vial 04/10/19 16:30 04/12/19 11:43 Novolog Vial Sliding Scale - SQ 4 units ACHS [facility] Administration Protocol Isosorbide Mononitrate 60 mg 04/11/19 10:00 04/12/19 09:29 Imdur - PO 60 mg DAILY [facility] Administration Labetalol HCl 400 mg 04/10/19 14:00 04/12/19 13:50 Normodyne - PO 400 mg TID [facility] Administration Methylprednisolone Sodium Succinate 40 mg 04/12/19 11:30 04/12/19 11:42 Solu-Medrol - IVPUSH 40 mg Q8H-IV [facility] Administration Nifedipine 120 mg 04/11/19 10:00 04/12/19 09:29 Procardia Xl - PO 120 mg DAILY [facility] Administration Senna 2 tab 04/12/19 22:00 Senna - PO HS PRN CONSTIPATION Spironolactone 50 mg 04/12/19 10:00 04/12/19 09:29 Aldactone - PO 50 mg BID [facility] Administration ASSESSMENT AND PLAN: This is a 58 year old man with a history of HTN, hyperlipidemia, CAD, [place], stents , chronic diastolic heart failure, type 2 DM, COPD/asthma, right carotid endarterectomy, stage 3 CKD, TIA, AAA, cocaine and alcohol abuse who presented to the ED with chest pain and shortness of breath. 1. Acute on chronic diastolic heart failure - Improving - Continue Lasix IV, Aldactone - Chest CT shows bilateral small pleural effusions, cardiomegaly, dilated main pulmonary artery c/w increased PA pressure, bilateral ground glass parenchymal opacity, mild left posterior basilar opacity 2. Chest pain secondary to acute CHF - Resolved 3. Abdominal pain - Resolved - US shows bilateral small pleural effusions, distended hepatic veins and IVC , non-obstructing right renal calculus, aneurysmal dilatation of infrarenal aorta 4. Asthma/COPD exacerbation - SoluMedrol started - Continue DuoNeb 5. HTN - Continue Procardia XL, Labetalol, Hydralazine, Aldactone, Lasix 6. Hyperlipidemia - Continue Lipitor 7. CAD, history of [place], PCI with stents - Continue aspirin, Plavix, Lipitor, Imdur 8. Type 2 DM - Continue Novolog sliding scale 9. Stage 3 CKD - Stable - Monitor BUN, creatinine with diuresis 10. History of TIA - Continue aspirin, Plavix, Lipitor 11. History of right carotid endarterectomy 12. AAA 13. Polysubstance abuse 14. Anemia secondary to chronic illness - Continue to monitor hemoglobin 15, Obesity with BMI 34.7
[2019-04-12] MEDS ORDERED: SENNOSIDES 8.6MG TABLET (FP) PO PRN (22:00)
[2019-04-12] MEDS: ATORVASTATIN CA 80 MG TABLET (FP) PO SCH (22:41)
[2019-04-13] MEDS ORDERED: INSULIN (NOVOLOG) ASPART 100 UNITS/ML 10ML VIAL SQ ONE (00:53)
[2019-04-13] MEDS: methylPREDNISolone NA SUCC 40 MG/1 ML VIAL IVPUSH SCH ×4 (01:26→21:37)
[2019-04-13] MEDS: LABETALOL HCL 200 MG TABLET (FP) PO SCH ×3 (05:55→21:37)
[2019-04-13] MEDS: hydrALAZINE HCL 50 MG TABLET (FP) PO SCH ×3 (05:55→21:37)
[2019-04-13] MEDS: FUROSEMIDE 40 MG/4 ML INJECTABLE VIAL IVPUSH SCH (05:56)
[2019-04-13] MEDS: INSULIN SLIDING SCALE (NOVOLOG) 1 VIAL SQ SCH ×4 (06:03→21:40)
[2019-04-13] MEDS: HEPARIN NA (PORCINE) 5,000 UNITS/ML 1ML VIAL SQ SCH ×3 (06:03→21:37)
[2019-04-13 06:05] LABS: BASO % 0.3 % (0-2.0); HEMATOCRIT 30.6 % (35.4-49); LYMPH % 5.5 % (8-40); MCH 30.6 pg (25.7-33.7); MCHC 32.5 g/dl (32.0-35.9); MEAN CELL VOLUME 94.1 fl (80-96); MEAN PLT VOLUME 7.3 fl (7.5-11.1); MONO % 4.9 % (3.8-10.2); NEUT % 89.3 % (42.8-82.8); PLATELET COUNT 300 K/MM3 (134-434); RBC 3.25 M/mm3 (4.00-5.60); RDW 15.8 % (11.9-15.9); WHITE BLOOD COUNT 10.7 K/mm3 (4.0-10.0)
[2019-04-13 06:41] LABS: ALBUMIN 3.3 g/dl (3.4-5.0); BILIRUBIN,TOTAL 0.8 mg/dL (0.2-1); BLOOD UREA NITROGEN 27.5 mg/dL (7-18); CALCIUM 9.1 mg/dL (8.5-10.1); CREATININE 1.6 mg/dL (0.55-1.3); MAGNESIUM 2.2 mg/dL (1.8-2.4); PHOSPHOROUS 3.3 mg/dL (2.5-4.9); POTASSIUM 4.8 mmol/L (3.5-5.1); TOT PROT 7.8 g/dl (6.4-8.2)
[2019-04-13] MEDS: ALBUTEROL SO4 2.5/IPRATROPIUM 0.5 INH SOL 3 ML VIAL.NEB. NEB SCH ×4 (08:05→20:31)
[2019-04-13 09:43] LABS: HEMATOCRIT 30.7 % (35.4-49); HEMOGLOBIN 9.9 GM/dL (11.7-16.9); MCH 30.4 pg (25.7-33.7); MCHC 32.2 g/dl (32.0-35.9); MEAN CELL VOLUME 94.2 fl (80-96); MEAN PLT VOLUME 7.6 fl (7.5-11.1); PLATELET COUNT 290 K/MM3 (134-434); RBC 3.26 M/mm3 (4.00-5.60); RDW 15.7 % (11.9-15.9); WHITE BLOOD COUNT 11.7 K/mm3 (4.0-10.0)
[2019-04-13] MEDS: ISOSORBIDE MONONITRATE 60 MG TAB.SR.24H (FP) PO SCH (09:43)
[2019-04-13] MEDS: SPIRONOLACTONE 25 MG TABLET (FP) PO SCH ×2 (09:43→21:37)
[2019-04-13] MEDS: CLOPIDOGREL BISULFATE 75 MG TABLET (FP) PO SCH (09:43)
[2019-04-13] MEDS: DOCUSATE SODIUM 100 MG CAPSULE (FP) PO SCH (09:44)
[2019-04-13] MEDS: NIFEdipine E.R 60 MG TABLET PO SCH (09:44)
[2019-04-13] MEDS: ASPIRIN COATED 81 MG TABLET.EC PO SCH (09:46)
[2019-04-13] MEDS ORDERED: INSULIN (LEVEMIR) 100 UNITS/ML UNITS SQ SCH (10:00)
[2019-04-13 10:16] LABS: BLOOD UREA NITROGEN 27.7 mg/dL (7-18); CALCIUM 9.1 mg/dL (8.5-10.1); CREATININE 1.6 mg/dL (0.55-1.3); MAGNESIUM 2.2 mg/dL (1.8-2.4); PHOSPHOROUS 3.3 mg/dL (2.5-4.9); POTASSIUM 4.8 mmol/L (3.5-5.1)
--- NOTE | 2019-04-13 10:54 | PN ---
Progress Note, Physician History of Present Illness: PULMONARY ALERT,SIGNIFICANT IMPROVEMENT,LESS CONGESTION,LESS COUGH - Current Medication List Current Medications: Active Medications Albuterol Sulfate (Ventolin 0.083% Nebulizer Soln -) 1 amp NEB Q4H PRN PRN Reason: SHORT OF BREATH/WHEEZING Albuterol/Ipratropium (Duoneb -) 1 amp NEB RQID [facility] Last Admin: 04/12/19 21:10 Dose: 1 amp Aspirin (Ecotrin -) 81 mg PO DAILY [facility] Last Admin: 04/13/19 09:46 Dose: 81 mg Atorvastatin Calcium (Lipitor -) 80 mg PO HS [facility] Last Admin: 04/12/19 22:41 Dose: 80 mg Benzocaine/Menthol (Cepacol Lozenge -) 1 each MM PRN PRN PRN Reason: SORE THROAT Clopidogrel Bisulfate (Plavix -) 75 mg PO DAILY [facility] Last Admin: 04/13/19 09:43 Dose: 75 mg Docusate Sodium (Colace -) 200 mg PO DAILY [facility] Last Admin: 04/13/19 09:44 Dose: 200 mg Furosemide (Lasix Injection -) 40 mg IVPUSH BID@0600,1400 [facility] Last Admin: 04/13/19 05:56 Dose: 40 mg Heparin Sodium (Porcine) (Heparin -) 5,000 unit SQ TID [facility] Last Admin: 04/13/19 06:03 Dose: 5,000 unit Hydralazine HCl (Apresoline -) 100 mg PO TID [facility] Last Admin: 04/13/19 05:55 Dose: 100 mg Insulin Aspart (Novolog Vial Sliding Scale -) 1 vial SQ [facility]; Protocol Last Admin: 04/13/19 06:03 Dose: 4 units Insulin Detemir (Levemir Vial) 30 units SQ BID@0700,2200 [facility] Isosorbide Mononitrate (Imdur -) 60 mg PO DAILY [facility] Last Admin: 04/13/19 09:43 Dose: 60 mg Labetalol HCl (Normodyne -) 400 mg PO TID [facility] Last Admin: 04/13/19 05:55 Dose: 400 mg Methylprednisolone Sodium Succinate (Solu-Medrol -) 40 mg IVPUSH BID [facility] Nifedipine (Procardia Xl -) 120 mg PO DAILY [facility] Last Admin: 04/13/19 09:44 Dose: 120 mg Senna (Senna -) 2 tab PO HS PRN PRN Reason: CONSTIPATION Spironolactone (Aldactone -) 50 mg PO BID [facility] Last Admin: 04/13/19 09:43 Dose: 50 mg - Objective Vital Signs: Vital Signs Temperature 97.6 F 04/13/19 06:00 Pulse Rate 81 04/13/19 06:00 Respiratory Rate 04/13/19 08:37 Blood Pressure 157/105 H 04/13/19 06:00 O2 Sat by Pulse Oximetry (%) 98 04/13/19 08:37 Constitutional: Yes: Well Nourished, Calm Eyes: Yes: WNL HENT: Yes: WNL Neck: Yes: WNL Cardiovascular: Yes: Regular Rate and Rhythm, S1, S2 Respiratory: Yes: Wheezes (FEW SCTTERED WHEEZES) Gastrointestinal: Yes: Normal Bowel Sounds, Soft Extremities: Yes: WNL Edema: Yes Labs: CBC, BMP 04/13/19 08:50 04/13/19 08:50 INR, PTT INR 1.15 (0.83-1.09) H 04/11/19 05:34 Assessment/Plan Problem List - Problems (1) Cocaine abuse Code(s): F14.10 - COCAINE ABUSE, UNCOMPLICATED (2) CHF (congestive heart failure) Code(s): I50.9 - HEART FAILURE, UNSPECIFIED Qualifiers: Heart failure type: unspecified Heart failure chronicity: unspecified Qualified Code(s): I50.9 - Heart failure, unspecified (3) COPD (chronic obstructive pulmonary disease) Code(s): J44.9 - CHRONIC OBSTRUCTIVE PULMONARY DISEASE, UNSPECIFIED Qualifiers: COPD type: unspecified COPD Qualified Code(s): J44.9 - Chronic obstructive pulmonary disease, unspecified (4) CHF exacerbation Code(s): I50.9 - HEART FAILURE, UNSPECIFIED Qualifiers: Heart failure type: diastolic Qualified Code(s): I50.33 - Acute on chronic diastolic (congestive) heart failure (5) CVA (cerebral vascular accident) Code(s): I63.9 - CEREBRAL INFARCTION, UNSPECIFIED Qualifiers: CVA mechanism: occlusion Precerebral and cerebral artery: unspecified cerebral artery Qualified Code(s): I63.50 - Cerebral infarction due to unspecified occlusion or stenosis of unspecified cerebral artery (6) Carotid stenosis Code(s): I65.29 - OCCLUSION AND STENOSIS OF UNSPECIFIED CAROTID ARTERY (7) Diastolic CHF Code(s): I50.30 - UNSPECIFIED DIASTOLIC (CONGESTIVE) HEART FAILURE (8) Heart failure with reduced ejection fraction Code(s): I50.20 - UNSPECIFIED SYSTOLIC (CONGESTIVE) HEART FAILURE (9) Nicotine abuse Code(s): Z72.0 - TOBACCO USE (10) Pleural effusion Code(s): J90 - PLEURAL EFFUSION, NOT ELSEWHERE CLASSIFIED (11) Shortness of breath Code(s): R06.02 - SHORTNESS OF BREATH (12) Tobacco use Code(s): Z72.0 - TOBACCO USE (13) Acute on chronic diastolic (congestive) heart failure Code(s): I50.33 - ACUTE ON CHRONIC DIASTOLIC (CONGESTIVE) HEART FAILURE (14) CAD (coronary artery disease) Code(s): I25.10 - ATHSCL HEART DISEASE OF [place] CORONARY ARTERY W/O ANG PCTRS Qualifiers: Coronary Disease-Associated Artery/Lesion type: [place] artery [place] vs. transplanted heart: [place] heart Associated angina: without angina Qualified Code(s): I25.10 - Atherosclerotic heart disease of [place] coronary artery without angina pectoris (15) CKD (chronic kidney disease) stage 3, GFR 30-59 ml/min Code(s): N18.3 - CHRONIC KIDNEY DISEASE, STAGE 3 (MODERATE) (16) Carotid stenosis, left Code(s): I65.22 - OCCLUSION AND STENOSIS OF LEFT CAROTID ARTERY (17) Cerebrovascular disease Code(s): I67.9 - CEREBROVASCULAR DISEASE, UNSPECIFIED (18) Diabetes Code(s): E11.9 - TYPE 2 DIABETES MELLITUS WITHOUT COMPLICATIONS Qualifiers: Diabetes mellitus type: type 2 (19) HTN (hypertension) Code(s): I10 - ESSENTIAL (PRIMARY) HYPERTENSION Qualifiers: Hypertension type: essential hypertension Qualified Code(s): I10 - Essential (primary) hypertension (20) History of myocardial infarction Code(s): I25.2 - OLD MYOCARDIAL INFARCTION (21) Hyperlipidemia Code(s): E78.5 - HYPERLIPIDEMIA, UNSPECIFIED Qualifiers: Hyperlipidemia type: pure hypercholesterolemia Qualified Code(s): E78.00 - Pure hypercholesterolemia, unspecified (22) Back pain Code(s): M54.9 - DORSALGIA, UNSPECIFIED Qualifiers: Back pain location: thoracic back pain Chronicity: acute Assessment/Plan Lasix Monitor off ABX as I do not suspect an infectious process No smoking and illicit substances was counseled Supplemental O2 as needed BD TX PRN Daily weights Sleep screen medrol taper Dr Mcdaniel Problem List - Problems (1) Cocaine abuse Code(s): F14.10 - COCAINE ABUSE, UNCOMPLICATED (2) CHF (congestive heart failure) Code(s): I50.9 - HEART FAILURE, UNSPECIFIED Qualifiers: Heart failure type: unspecified Heart failure chronicity: unspecified Qualified Code(s): I50.9 - Heart failure, unspecified (3) COPD (chronic obstructive pulmonary disease) Code(s): J44.9 - CHRONIC OBSTRUCTIVE PULMONARY DISEASE, UNSPECIFIED Qualifiers: COPD type: unspecified COPD Qualified Code(s): J44.9 - Chronic obstructive pulmonary disease, unspecified (4) CHF exacerbation Code(s): I50.9 - HEART FAILURE, UNSPECIFIED Qualifiers: Heart failure type: diastolic Qualified Code(s): I50.33 - Acute on chronic diastolic (congestive) heart failure (5) CVA (cerebral vascular accident) Code(s): I63.9 - CEREBRAL INFARCTION, UNSPECIFIED Qualifiers: CVA mechanism: occlusion Precerebral and cerebral artery: unspecified cerebral artery Qualified Code(s): I63.50 - Cerebral infarction due to unspecified occlusion or stenosis of unspecified cerebral artery (6) Carotid stenosis Code(s): I65.29 - OCCLUSION AND STENOSIS OF UNSPECIFIED CAROTID ARTERY (7) Diastolic CHF Code(s): I50.30 - UNSPECIFIED DIASTOLIC (CONGESTIVE) HEART FAILURE (8) Heart failure with reduced ejection fraction Code(s): I50.20 - UNSPECIFIED SYSTOLIC (CONGESTIVE) HEART FAILURE (9) Nicotine abuse Code(s): Z72.0 - TOBACCO USE (10) Pleural effusion Code(s): J90 - PLEURAL EFFUSION, NOT ELSEWHERE CLASSIFIED (11) Shortness of breath Code(s): R06.02 - SHORTNESS OF BREATH (12) Tobacco use Code(s): Z72.0 - TOBACCO USE (13) Acute on chronic diastolic (congestive) heart failure Code(s): I50.33 - ACUTE ON CHRONIC DIASTOLIC (CONGESTIVE) HEART FAILURE (14) CAD (coronary artery disease) Code(s): I25.10 - ATHSCL HEART DISEASE OF [place] CORONARY ARTERY W/O ANG PCTRS Qualifiers: Coronary Disease-Associated Artery/Lesion type: [place] artery [place] vs. transplanted heart: [place] heart Associated angina: without angina Qualified Code(s): I25.10 - Atherosclerotic heart disease of [place] coronary artery without angina pectoris (15) CKD (chronic kidney disease) stage 3, GFR 30-59 ml/min Code(s): N18.3 - CHRONIC KIDNEY DISEASE, STAGE 3 (MODERATE) (16) Carotid stenosis, left Code(s): I65.22 - OCCLUSION AND STENOSIS OF LEFT CAROTID ARTERY (17) Cerebrovascular disease Code(s): I67.9 - CEREBROVASCULAR DISEASE, UNSPECIFIED (18) Diabetes Code(s): E11.9 - TYPE 2 DIABETES MELLITUS WITHOUT COMPLICATIONS Qualifiers: Diabetes mellitus type: type 2 (19) HTN (hypertension) Code(s): I10 - ESSENTIAL (PRIMARY) HYPERTENSION Qualifiers: Hypertension type: essential hypertension Qualified Code(s): I10 - Essential (primary) hypertension (20) History of myocardial infarction Code(s): I25.2 - OLD MYOCARDIAL INFARCTION (21) Hyperlipidemia Code(s): E78.5 - HYPERLIPIDEMIA, UNSPECIFIED Qualifiers: Hyperlipidemia type: pure hypercholesterolemia Qualified Code(s): E78.00 - Pure hypercholesterolemia, unspecified (22) Back pain Code(s): M54.9 - DORSALGIA, UNSPECIFIED Qualifiers: Back pain location: thoracic back pain Chronicity: acute
[2019-04-13] MEDS: INSULIN (LEVEMIR) 100 UNITS/ML UNITS SQ SCH ×2 (11:00→21:49)
[2019-04-13] MEDS ORDERED: INSULIN (LEVEMIR) 100 UNITS/ML UNITS SQ ONE (12:47)
--- NOTE | 2019-04-13 14:57 | PN ---
Physical Exam: SUBJECTIVE: Patient seen and examined at bedside. pt states his breathing is improved. he states he has 3/10 midline abdominal pain. OBJECTIVE: Vital Signs Period Temp Pulse Resp BP Sys/Caal Pulse Ox Last 24 Hr 97.5 F-98.0 F 80-84 20-20 139-157/91-105 96-98 GENERAL: The patient is awake, alert, and fully oriented, in no acute distress. LUNGS: Breath sounds equal, good air entry b/l, no wheezes, no accessory muscle use. HEART: Regular rate and rhythm, S1, S2 ABDOMEN: Soft, nontender, nondistended, normoactive bowel sounds, midline reducible hernia EXTREMITIES: 2+ pulses, warm, well-perfused, b/l 2+ pitting edema PSYCH: Normal mood, normal affect. SKIN: Warm, dry, normal turgor, no rashes or lesions noted Laboratory Results - last 24 hr CBC, BMP 04/13/19 08:50 04/13/19 08:50 Current Medications Albuterol Sulfate (Ventolin 0.083% Nebulizer Soln -) 1 amp NEB Q4H PRN PRN Reason: SHORT OF BREATH/WHEEZING Albuterol/Ipratropium (Duoneb -) 1 amp NEB RQID [facility] Last Admin: 04/13/19 15:37 Dose: 1 amp Aspirin (Ecotrin -) 81 mg PO DAILY [facility] Last Admin: 04/13/19 09:46 Dose: 81 mg Atorvastatin Calcium (Lipitor -) 80 mg PO HS [facility] Last Admin: 04/12/19 22:41 Dose: 80 mg Benzocaine/Menthol (Cepacol Lozenge -) 1 each MM PRN PRN PRN Reason: SORE THROAT Clopidogrel Bisulfate (Plavix -) 75 mg PO DAILY [facility] Last Admin: 04/13/19 09:43 Dose: 75 mg Docusate Sodium (Colace -) 200 mg PO DAILY [facility] Last Admin: 04/13/19 09:44 Dose: 200 mg Furosemide (Lasix -) 40 mg PO BID@0600,1400 [facility] Heparin Sodium (Porcine) (Heparin -) 5,000 unit SQ TID [facility] Last Admin: 04/13/19 15:18 Dose: 5,000 unit Hydralazine HCl (Apresoline -) 100 mg PO TID [facility] Last Admin: 04/13/19 15:17 Dose: 100 mg Insulin Aspart (Novolog Vial Sliding Scale -) 1 vial SQ ACHS [facility]; Protocol Last Admin: 04/13/19 12:30 Dose: 6 units Insulin Detemir (Levemir Vial) 30 units SQ BID@0700,2200 [facility] Last Admin: 04/13/19 11:00 Dose: 30 units Isosorbide Mononitrate (Imdur -) 60 mg PO DAILY [facility] Last Admin: 04/13/19 09:43 Dose: 60 mg Labetalol HCl (Normodyne -) 400 mg PO TID [facility] Last Admin: 04/13/19 15:18 Dose: 400 mg Methylprednisolone Sodium Succinate (Solu-Medrol -) 40 mg IVPUSH BID [facility] Last Admin: 04/13/19 10:29 Dose: 40 mg Nifedipine (Procardia Xl -) 120 mg PO DAILY [facility] Last Admin: 04/13/19 09:44 Dose: 120 mg Senna (Senna -) 2 tab PO HS PRN PRN Reason: CONSTIPATION Spironolactone (Aldactone -) 50 mg PO BID [facility] Last Admin: 04/13/19 09:43 Dose: [address]: Impression: Small bilateral pleural effusions. Multichamber cardiomegaly. Dilatation of the main pulmonary artery is again noted (4.2 cm diameter) consistent with increased pulmonary arterial pressure. Bilateral upper and lower lobe groundglass parenchymal opacity is noted as on the previous CT study of 12/01/2018 which may be on the basis of acute and/or chronic vascular congestion. As on the prior exam there is mild left posterior basilar opacity probably due to atelectasis, less likely representing a small infiltrate. Minimal bilateral flank subcutaneous edema which appears improved. Note is again made of nonspecific mediastinal lymphadenopathy without definite interval change in comparison to the 12/01/2018 CT exam. This finding however appears somewhat increased in comparison to a more remote CT exam of 11/02/2018. PET/CT evaluation may be considered. Duplex U/S Impression: No DVT is identified involving either leg. Please see above. Abdomen U/s IMPRESSION: Small bilateral pleural effusions. Distention of the hepatic veins and inferior vena cava is noted presumably secondary to cardiac dysfunction. 0.9 x 0.3 cm nonobstructing right renal calculus. Aneurysmal dilatation of the infrarenal aorta is noted. The current ultrasound exam under appreciates the degree of aneurysmal dilatation possibly due to superimposed bowel gas. A 4.3 cm infrarenal aortic aneurysm was identified on CT performed . The current ultrasound exam under appreciates the degree of aortic dilatation suggesting a 3 cm diameter. Subsequent periodic surveillance imaging is suggested utilizing CT or MRI. ASSESSMENT/PLAN: 58 yo M PMH of HTN, HLD, CAD ( CT, stents), HFpEF,DM 2 , COPD/asthma, right carotid endarterectomy, stage 3 CKD, TIA, AAA (stable), Polysubstance abuse ( cocaine and alcohol)presented to the ED with chest pain and shortness of breath. Acute on chronic HFpEF -BNP 3576.8 -lasix changed to home dose, 40 mg PO BID -c/w Aldactone -Chest CT shows bilateral small pleural effusions, cardiomegaly, dilated main pulmonary artery c/w increased PA pressure, bilateral ground glass parenchymal opacity, mild left posterior basilar opacity - cardio recs appreciated, Dr. Ro Abdominal pain - US shows bilateral small pleural effusions, distended hepatic veins and IVC, non-obstructing right renal calculus, aneurysmal dilatation of infrarenal aorta HTN - c/w Procardia XL, Labetalol, Hydralazine, Aldactone, Lasix Hyperlipidemia -c/w Continue Lipitor - continue to monitor LFTs, may need to DC tomorrow CAD,s/p PCI with stents - Continue aspirin, Plavix, Lipitor, Imdur DM: -ISS/ BGM - sugars have b[place] uncontrolled - increased Levemir back to home dose 30 mg BID - continue to monitor Asthma/COPD - Continue DuoNeb, Ventolin prn -will decrease steroid to solumedrol 40 BID -pulm (Dr. Azar) recs appreciated - NIKOS sleep screen on DC Stage 3 CKD - Monitor BUN, creatinine -avoid nephrotoxic agents -pt Cr at baseline , 1.6 today History of TIA - Continue aspirin, Plavix, Lipitor AAA -stable at 4.3cm, compared to 12/2018 Polysubstance abuse -not actively withdrawing Anemia secondary to chronic illness -H/H stable DVT ppx: heparin 5K Possible DC tomorrow Visit type - Emergency Visit Emergency Visit: No - New Patient This patient is new to me today: No - Critical Care Critical Care patient: No - Discharge Referral Referred to [facility] No ATTENDING PHYSICIAN STATEMENT I saw and evaluated the patient. I reviewed the resident's note and discussed the case with the resident. I agree with the resident's findings and plan as documented. SUBJECTIVE: OBJECTIVE: ASSESSMENT AND PLAN:
--- NOTE | 2019-04-13 15:03 | PN ---
Progress Note, Physician History of Present Illness: [place], cough improving with diuresis. - Current Medication List Current Medications: Active Medications Albuterol Sulfate (Ventolin 0.083% Nebulizer Soln -) 1 amp NEB Q4H PRN PRN Reason: SHORT OF BREATH/WHEEZING Albuterol/Ipratropium (Duoneb -) 1 amp NEB RQID [facility] Last Admin: 04/13/19 12:05 Dose: 1 amp Aspirin (Ecotrin -) 81 mg PO DAILY [facility] Last Admin: 04/13/19 09:46 Dose: 81 mg Atorvastatin Calcium (Lipitor -) 80 mg PO HS [facility] Last Admin: 04/12/19 22:41 Dose: 80 mg Benzocaine/Menthol (Cepacol Lozenge -) 1 each MM PRN PRN PRN Reason: SORE THROAT Clopidogrel Bisulfate (Plavix -) 75 mg PO DAILY [facility] Last Admin: 04/13/19 09:43 Dose: 75 mg Docusate Sodium (Colace -) 200 mg PO DAILY [facility] Last Admin: 04/13/19 09:44 Dose: 200 mg Furosemide (Lasix Injection -) 40 mg IVPUSH BID@0600,1400 [facility] Last Admin: 04/13/19 05:56 Dose: 40 mg Heparin Sodium (Porcine) (Heparin -) 5,000 unit SQ TID [facility] Last Admin: 04/13/19 06:03 Dose: 5,000 unit Hydralazine HCl (Apresoline -) 100 mg PO TID [facility] Last Admin: 04/13/19 05:55 Dose: 100 mg Insulin Aspart (Novolog Vial Sliding Scale -) 1 vial SQ [facility]; Protocol Last Admin: 04/13/19 12:30 Dose: 6 units Insulin Detemir (Levemir Vial) 30 units SQ BID@0700,2200 [facility] Last Admin: 04/13/19 11:00 Dose: 30 units Isosorbide Mononitrate (Imdur -) 60 mg PO DAILY [facility] Last Admin: 04/13/19 09:43 Dose: 60 mg Labetalol HCl (Normodyne -) 400 mg PO TID [facility] Last Admin: 04/13/19 05:55 Dose: 400 mg Methylprednisolone Sodium Succinate (Solu-Medrol -) 40 mg IVPUSH BID [facility] Last Admin: 04/13/19 10:29 Dose: 40 mg Nifedipine (Procardia Xl -) 120 mg PO DAILY [facility] Last Admin: 04/13/19 09:44 Dose: 120 mg Senna (Senna -) 2 tab PO HS PRN PRN Reason: CONSTIPATION Spironolactone (Aldactone -) 50 mg PO BID [facility] Last Admin: 04/13/19 09:43 Dose: 50 mg - Objective Vital Signs: Vital Signs Temperature 97.6 F 04/13/19 06:00 Pulse Rate 81 04/13/19 06:00 Respiratory Rate 20 04/13/19 08:37 Blood Pressure 157/105 H 04/13/19 06:00 O2 Sat by Pulse Oximetry (%) 98 04/13/19 08:37 Constitutional: Yes: No Distress, Calm Neck: Yes: Supple Cardiovascular: Yes: Regular Rate and Rhythm Respiratory: Yes: Regular, Diminished Gastrointestinal: Yes: Normal Bowel Sounds, Soft Edema: Yes Edema: LLE: 1+, RLE: 1+ Labs: CBC, BMP 04/13/19 08:50 04/13/19 08:50 INR, PTT INR 1.15 (0.83-1.09) H 04/11/19 05:34 - ....Imaging EKG: Report Reviewed (Tele: NSR) Problem List - Problems (1) COPD (chronic obstructive pulmonary disease) Code(s): J44.9 - CHRONIC OBSTRUCTIVE PULMONARY DISEASE, UNSPECIFIED Qualifiers: COPD type: unspecified COPD Qualified Code(s): J44.9 - Chronic obstructive pulmonary disease, unspecified (2) Diastolic CHF Code(s): I50.30 - UNSPECIFIED DIASTOLIC (CONGESTIVE) HEART FAILURE Qualifiers: Heart failure chronicity: acute on chronic Qualified Code(s): I50.33 - Acute on chronic diastolic (congestive) heart failure (3) Hypertensive urgency Code(s): I16.0 - HYPERTENSIVE URGENCY (4) Acute on chronic diastolic (congestive) heart failure Code(s): I50.33 - ACUTE ON CHRONIC DIASTOLIC (CONGESTIVE) HEART FAILURE (5) CAD (coronary artery disease) Code(s): I25.10 - ATHSCL HEART DISEASE OF [place] CORONARY ARTERY W/O ANG PCTRS Qualifiers: Coronary Disease-Associated Artery/Lesion type: [place] artery [place] vs. transplanted heart: [place] heart Associated angina: without angina Qualified Code(s): I25.10 - Atherosclerotic heart disease of [place] coronary artery without angina pectoris (6) CKD (chronic kidney disease) stage 3, GFR 30-59 ml/min Code(s): N18.3 - CHRONIC KIDNEY DISEASE, STAGE 3 (MODERATE) (7) Diabetic nephropathy associated with type 2 diabetes mellitus Code(s): E11.21 - TYPE 2 DIABETES MELLITUS WITH DIABETIC NEPHROPATHY (8) HTN (hypertension) Code(s): I10 - ESSENTIAL (PRIMARY) HYPERTENSION Qualifiers: Hypertension type: essential hypertension Qualified Code(s): I10 - Essential (primary) hypertension (9) Hyperlipidemia Code(s): E78.5 - HYPERLIPIDEMIA, UNSPECIFIED Qualifiers: Hyperlipidemia type: pure hypercholesterolemia Qualified Code(s): E78.00 - Pure hypercholesterolemia, unspecified Assessment/Plan 01/03/2019 Echo: Mildly dilated, mild cLVH, low normal LVEF 50-55%, normal RV fxn, mild SHAHANA, mod-severe MR, mild-mod TR RVSP 58 mmHg, mild AR, ND 12/02/2018 Mri of brain: No acute stroke, old right posterior temporal cortical infarct 12/02/2018 Carotid ultrasound should left moderate stenosis and vacular surgery consult pending 12/02/2018 Echo: Normal LV size and fxn with mod cLVH, normal RV size and fxn, mild SHAHANA, mild MR, TR, AR 12/01/2018 Ct head right old posterior temoral lobe infarct identified 11/02/[address]: Bilateral min-mild upper and lower lung opacity c/w congestion, mild LAE, LV dilatation 04/13/2018 Echo: Normal LV size and fxn with mild cLVH, grade II diastolic dysfunction, mod LAE, mild MR, mild AR 10/27/2017 Echo: Mild cLVH, normal RV and LV size and fxn, mild-mod MR, mild AR 10/29/2017 Regadenoson stress: Large inferior, inferolateral and apical infarct without ischemia, LVEF 29% ASSESSMENT: 1. Clinical presentation is consistent with acute on chronic class II-III NYHA classification LV diastolic failure, probably precipitated by dietary non compliance, unclear if medical therapy non compliance in addition 2. COPD with probable acute exacerbation 3. CAD history of MD/PCI/stent angina pectoris 4. Hypertensive cardiovascular disease 5. DM 6. Hypercholesterolemia 7. History of cerebro-vascular disease 8. Post right CEA 9. History of AAA/4.3 cm infra-renal with mural thrombus 10. CKD 11. Anemia 12. History of substance abuse (Cocaine) 13. History of angioedema related to ACEI PLAN: 1. Resume oral Furosemide 40 po bid and Spironolactone 50 bid dose titration with close monitoring of renal function and electrolytes 2. Continue Labetolol 400 tid 3. Continue Hydralazine 100 tid and Imdur 60 qd (BiDil as outpatient) 4. Continue Procardia XL 120 qd 5. Continue ASA 81 qd and Plavix 75 qd 6. Continue Lipitor 80 qd 7. Continue IV steroid taper, bronchodilators, O2 as needed per the primary team 8. Emphasized importance of compliance to therapy administration and dietary restrictions including caloric restriction/salt restriction 9. Counselled substance abuse and smoking cessation
--- NOTE | 2019-04-13 18:00 | PN ---
Teaching Attending Note Name of Resident: Roxane Lauren ATTENDING PHYSICIAN STATEMENT I saw and evaluated the patient. I reviewed the resident's note and discussed the case with the resident. I agree with the resident's findings and plan as documented. SUBJECTIVE:seen at 11 am He feels much better . No SOB . has cough . abd pain with cough LE edema is better OBJECTIVE: NAD, awake, alert, cooperative Lungs: minimal bibasilar crackles, no wheezes. Abd:sfot, mid line abd hernia with straining. tenderness in epigastric area. nl BS Ext : 1+ edema on legs ASSESSMENT AND PLAN: 58 y/o man withh/o chronic diastolic CHF, COPD, HTN, HLP, CAD, s/p CO and stents , DM, CKD, anemia, cocaine abuse, Angioedema ( ACEI), AAA, TIA, R CEA, who presented with SOb and was found to have acute CHF 1- Acute diastolic CHF 2- Possible acute COPD exacerbation 3- CP : resolved . 4- HTN 5- Uncontrolled DM. 6- HLP 7- CKD 8- b/l pleural effusions Plan: - cont PO lasix - decrease solu-Medrol to BID dosing - cont nebs - increase levemir to 30 BID - cont SSI - cont procardia, HZN, aldactone, Imdur, and labetalol - cont lipitor, asa, plavix - heaprin sq - Possible dc tomorrow
[2019-04-14] MEDS: FUROSEMIDE 40 MG TABLET (FP) PO SCH ×3 (04:04→14:01)
[2019-04-14] MEDS: INSULIN (LEVEMIR) 100 UNITS/ML UNITS SQ SCH (06:23)
[2019-04-14] MEDS: LABETALOL HCL 200 MG TABLET (FP) PO SCH ×3 (06:24→21:56)
[2019-04-14] MEDS: INSULIN SLIDING SCALE (NOVOLOG) 1 VIAL SQ SCH ×4 (06:24→21:59)
[2019-04-14] MEDS: hydrALAZINE HCL 50 MG TABLET (FP) PO SCH ×3 (06:25→21:55)
[2019-04-14] MEDS: HEPARIN NA (PORCINE) 5,000 UNITS/ML 1ML VIAL SQ SCH ×3 (06:25→21:54)
[2019-04-14 07:17] LABS: HEMATOCRIT 31.4 % (35.4-49); HEMOGLOBIN 10.1 GM/dL (11.7-16.9); MCH 30.2 pg (25.7-33.7); MCHC 32.1 g/dl (32.0-35.9); MEAN PLT VOLUME 7.6 fl (7.5-11.1); PLATELET COUNT 340 K/MM3 (134-434); RBC 3.34 M/mm3 (4.00-5.60); RDW 15.8 % (11.9-15.9); WHITE BLOOD COUNT 12.7 K/mm3 (4.0-10.0)
[2019-04-14 07:49] LABS: BLOOD UREA NITROGEN 32.5 mg/dL (7-18); CREATININE 1.6 mg/dL (0.55-1.3); MAGNESIUM 2.3 mg/dL (1.8-2.4); PHOSPHOROUS 3.5 mg/dL (2.5-4.9); POTASSIUM 5.2 mmol/L (3.5-5.1)
[2019-04-14 08:25] LABS: ALBUMIN 3.4 g/dl (3.4-5.0); BILIRUBIN,DIRECT 0.2 mg/dL (0.0-0.2); BILIRUBIN,TOTAL 0.4 mg/dL (0.2-1); TOT PROT 7.6 g/dl (6.4-8.2)
--- NOTE | 2019-04-14 08:56 | PN ---
Progress Note, Physician History of Present Illness: [place], cough improving with diuresis. - Current Medication List Current Medications: Active Medications Albuterol Sulfate (Ventolin 0.083% Nebulizer Soln -) 1 amp NEB Q4H PRN PRN Reason: SHORT OF BREATH/WHEEZING Albuterol/Ipratropium (Duoneb -) 1 amp NEB RQID [facility] Last Admin: 04/13/19 20:31 Dose: 1 amp Aspirin (Ecotrin -) 81 mg PO DAILY [facility] Last Admin: 04/13/19 09:46 Dose: 81 mg Atorvastatin Calcium (Lipitor -) 80 mg PO HS [facility] Last Admin: 04/12/19 22:41 Dose: 80 mg Benzocaine/Menthol (Cepacol Lozenge -) 1 each MM PRN PRN PRN Reason: SORE THROAT Clopidogrel Bisulfate (Plavix -) 75 mg PO DAILY [facility] Last Admin: 04/13/19 09:43 Dose: 75 mg Docusate Sodium (Colace -) 200 mg PO DAILY [facility] Last Admin: 04/13/19 09:44 Dose: 200 mg Furosemide (Lasix -) 40 mg PO BID@0600,1400 [facility] Last Admin: 04/14/19 06:29 Dose: Not Given Heparin Sodium (Porcine) (Heparin -) 5,000 unit SQ TID [facility] Last Admin: 04/14/19 06:25 Dose: 5,000 unit Hydralazine HCl (Apresoline -) 100 mg PO TID [facility] Last Admin: 04/14/19 06:25 Dose: 100 mg Insulin Aspart (Novolog Vial Sliding Scale -) 1 vial SQ [facility]; Protocol Last Admin: 04/14/19 06:24 Dose: 6 units Insulin Detemir (Levemir Vial) 30 units SQ BID@0700,2200 [facility] Last Admin: 04/14/19 06:23 Dose: 30 units Isosorbide Mononitrate (Imdur -) 60 mg PO DAILY [facility] Last Admin: 04/13/19 09:43 Dose: 60 mg Labetalol HCl (Normodyne -) 400 mg PO TID [facility] Last Admin: 04/14/19 06:24 Dose: 400 mg Nifedipine (Procardia Xl -) 120 mg PO DAILY [facility] Last Admin: 04/13/19 09:44 Dose: 120 mg Prednisone (Deltasone -) 40 mg PO DAILY [facility] Senna (Senna -) 2 tab PO HS PRN PRN Reason: CONSTIPATION Spironolactone (Aldactone -) 50 mg PO BID [facility] Last Admin: 04/13/19 21:37 Dose: 50 mg - Objective Vital Signs: Vital Signs Temperature 97.8 F 04/14/19 02:11 Pulse Rate 75 04/14/19 06:00 Respiratory Rate 20 04/14/19 06:00 Blood Pressure 192/125 H 04/14/19 06:00 O2 Sat by Pulse Oximetry (%) 98 04/13/19 08:37 Constitutional: Yes: No Distress, Calm Neck: Yes: Supple Cardiovascular: Yes: Regular Rate and Rhythm Respiratory: Yes: Regular, CTA Bilaterally Gastrointestinal: Yes: Normal Bowel Sounds, Soft Edema: Yes Edema: LLE: 1+, RLE: 1+ Labs: CBC, BMP 04/14/19 06:32 04/14/19 06:32 INR, PTT INR 1.15 (0.83-1.09) H 04/11/19 05:34 - ....Imaging EKG: Report Reviewed (Tele: NSR) Problem List - Problems (1) COPD (chronic obstructive pulmonary disease) Code(s): J44.9 - CHRONIC OBSTRUCTIVE PULMONARY DISEASE, UNSPECIFIED Qualifiers: COPD type: unspecified COPD Qualified Code(s): J44.9 - Chronic obstructive pulmonary disease, unspecified (2) Diastolic CHF Code(s): I50.30 - UNSPECIFIED DIASTOLIC (CONGESTIVE) HEART FAILURE Qualifiers: Heart failure chronicity: acute on chronic Qualified Code(s): I50.33 - Acute on chronic diastolic (congestive) heart failure (3) Hypertensive urgency Code(s): I16.0 - HYPERTENSIVE URGENCY (4) Acute on chronic diastolic (congestive) heart failure Code(s): I50.33 - ACUTE ON CHRONIC DIASTOLIC (CONGESTIVE) HEART FAILURE (5) CAD (coronary artery disease) Code(s): I25.10 - ATHSCL HEART DISEASE OF [place] CORONARY ARTERY W/O ANG PCTRS Qualifiers: Coronary Disease-Associated Artery/Lesion type: [place] artery [place] vs. transplanted heart: [place] heart Associated angina: without angina Qualified Code(s): I25.10 - Atherosclerotic heart disease of [place] coronary artery without angina pectoris (6) CKD (chronic kidney disease) stage 3, GFR 30-59 ml/min Code(s): N18.3 - CHRONIC KIDNEY DISEASE, STAGE 3 (MODERATE) (7) Diabetic nephropathy associated with type 2 diabetes mellitus Code(s): E11.21 - TYPE 2 DIABETES MELLITUS WITH DIABETIC NEPHROPATHY (8) HTN (hypertension) Code(s): I10 - ESSENTIAL (PRIMARY) HYPERTENSION Qualifiers: Hypertension type: essential hypertension Qualified Code(s): I10 - Essential (primary) hypertension (9) Hyperlipidemia Code(s): E78.5 - HYPERLIPIDEMIA, UNSPECIFIED Qualifiers: Hyperlipidemia type: pure hypercholesterolemia Qualified Code(s): E78.00 - Pure hypercholesterolemia, unspecified Assessment/Plan 01/03/2019 Echo: Mildly dilated, mild cLVH, low normal LVEF 50-55%, normal RV fxn, mild SHAHANA, mod-severe MR, mild-mod TR RVSP 58 mmHg, mild AR, AR 12/02/2018 Mri of brain: No acute stroke, old right posterior temporal cortical infarct 12/02/2018 Carotid ultrasound should left moderate stenosis and vacular surgery consult pending 12/02/2018 Echo: Normal LV size and fxn with mod cLVH, normal RV size and fxn, mild SHAHANA, mild MR, TR, AR 12/01/2018 Ct head right old posterior temoral lobe infarct identified 11/02/[address]: Bilateral min-mild upper and lower lung opacity c/w congestion, mild LAE, LV dilatation 04/13/2018 Echo: Normal LV size and fxn with mild cLVH, grade II diastolic dysfunction, mod LAE, mild MR, mild AR 10/27/2017 Echo: Mild cLVH, normal RV and LV size and fxn, mild-mod MR, mild AR 10/29/2017 Regadenoson stress: Large inferior, inferolateral and apical infarct without ischemia, LVEF 29% ASSESSMENT: 1. Clinical presentation is consistent with acute on chronic class II-III NYHA classification LV diastolic failure and pleural effusions, probably precipitated by dietary non compliance, unclear if medical therapy non compliance in addition 2. COPD with probable acute exacerbation 3. CAD history of [place]/PCI/stent angina pectoris 4. Hypertensive cardiovascular disease 5. DM 6. Hypercholesterolemia 7. History of cerebrovascular disease 8. Post right CEA 9. History of AAA/4.3 cm infra-renal with mural thrombus 10. CKD with hyperkalemia 11. Anemia 12. History of substance abuse (Cocaine) 13. History of angioedema related to ACEI PLAN: 1. Resumed oral Furosemide 40 po bid and Spironolactone 50 bid dose titration with close monitoring of renal function and electrolytes 2. Continue Labetolol 400 tid 3. Continue Hydralazine 100 tid and Imdur 60 qd (BiDil as outpatient) 4. Continue Procardia XL 120 qd 5. Continue ASA 81 qd and Plavix 75 qd 6. Continue Lipitor 80 qd 7. Continue IV steroid taper, bronchodilators, O2 as needed per the primary team 8. Emphasized importance of compliance to therapy administration and dietary restrictions including caloric restriction/salt restriction 9. Counselled substance abuse and smoking cessation 10. D/c planning with f/u in office
[2019-04-14] MEDS: CLOPIDOGREL BISULFATE 75 MG TABLET (FP) PO SCH (09:38)
[2019-04-14] MEDS: ISOSORBIDE MONONITRATE 60 MG TAB.SR.24H (FP) PO SCH (09:38)
[2019-04-14] MEDS: DOCUSATE SODIUM 100 MG CAPSULE (FP) PO SCH (09:38)
[2019-04-14] MEDS: ASPIRIN COATED 81 MG TABLET.EC PO SCH (09:39)
[2019-04-14] MEDS: SPIRONOLACTONE 25 MG TABLET (FP) PO SCH (09:39)
[2019-04-14] MEDS: NIFEdipine E.R 60 MG TABLET PO SCH (09:39)
[2019-04-14] MEDS: ALBUTEROL SO4 2.5/IPRATROPIUM 0.5 INH SOL 3 ML VIAL.NEB. NEB SCH ×4 (09:45→20:56)
[2019-04-14] MEDS ORDERED: predniSONE 20 MG TABLET (UD) PO SCH (10:00)
--- NOTE | 2019-04-14 10:42 | PN ---
Progress Note, Physician History of Present Illness: PULMONARY ALERT,COMFORTABLE,OOB-CHAIR,-SOB,-CONGETSION - Current Medication List Current Medications: Active Medications Albuterol Sulfate (Ventolin 0.083% Nebulizer Soln -) 1 amp NEB Q4H PRN PRN Reason: SHORT OF BREATH/WHEEZING Albuterol/Ipratropium (Duoneb -) 1 amp NEB RQID [facility] Last Admin: 04/14/19 09:45 Dose: 1 amp Aspirin (Ecotrin -) 81 mg PO DAILY [facility] Last Admin: 04/14/19 09:39 Dose: 81 mg Atorvastatin Calcium (Lipitor -) 80 mg PO HS [facility] Last Admin: 04/12/19 22:41 Dose: 80 mg Benzocaine/Menthol (Cepacol Lozenge -) 1 each MM PRN PRN PRN Reason: SORE THROAT Clopidogrel Bisulfate (Plavix -) 75 mg PO DAILY [facility] Last Admin: 04/14/19 09:38 Dose: 75 mg Docusate Sodium (Colace -) 200 mg PO DAILY [facility] Last Admin: 04/14/19 09:38 Dose: 200 mg Furosemide (Lasix -) 40 mg PO BID@0600,1400 [facility] Last Admin: 04/14/19 06:29 Dose: Not Given Heparin Sodium (Porcine) (Heparin -) 5,000 unit SQ TID [facility] Last Admin: 04/14/19 06:25 Dose: 5,000 unit Hydralazine HCl (Apresoline -) 100 mg PO TID [facility] Last Admin: 04/14/19 06:25 Dose: 100 mg Insulin Aspart (Novolog Vial Sliding Scale -) 1 vial SQ [facility]; Protocol Last Admin: 04/14/19 06:24 Dose: 6 units Insulin Detemir (Levemir Vial) 30 units SQ BID@0700,2200 [facility] Last Admin: 04/14/19 06:23 Dose: 30 units Isosorbide Mononitrate (Imdur -) 60 mg PO DAILY [facility] Last Admin: 04/14/19 09:38 Dose: 60 mg Labetalol HCl (Normodyne -) 400 mg PO TID [facility] Last Admin: 04/14/19 06:24 Dose: 400 mg Nifedipine (Procardia Xl -) 120 mg PO DAILY [facility] Last Admin: 04/14/19 09:39 Dose: 120 mg Prednisone (Deltasone -) 40 mg PO DAILY [facility] Last Admin: 04/14/19 09:39 Dose: 40 mg Senna (Senna -) 2 tab PO HS PRN PRN Reason: CONSTIPATION Spironolactone (Aldactone -) 50 mg PO BID [facility] Last Admin: 04/14/19 09:39 Dose: 50 mg - Objective Vital Signs: Vital Signs Temperature 98.2 F 04/14/19 10:00 Pulse Rate 81 04/14/19 10:00 Respiratory Rate 20 04/14/19 10:00 Blood Pressure 181/111 H 04/14/19 10:00 O2 Sat by Pulse Oximetry (%) 98 04/14/19 09:00 Constitutional: Yes: Well Nourished, Calm Eyes: Yes: WNL Neck: Yes: WNL Cardiovascular: Yes: Regular Rate and Rhythm, S1, S2 Respiratory: Yes: CTA Bilaterally Gastrointestinal: Yes: Normal Bowel Sounds, Soft Extremities: Yes: WNL Edema: No Labs: CBC, BMP 04/14/19 06:32 04/14/19 06:32 INR, PTT INR 1.15 (0.83-1.09) H 04/11/19 05:34 Assessment/Plan Problem List - Problems (1) Cocaine abuse Code(s): F14.10 - COCAINE ABUSE, UNCOMPLICATED (2) CHF (congestive heart failure) Code(s): I50.9 - HEART FAILURE, UNSPECIFIED Qualifiers: Heart failure type: unspecified Heart failure chronicity: unspecified Qualified Code(s): I50.9 - Heart failure, unspecified (3) COPD (chronic obstructive pulmonary disease) Code(s): J44.9 - CHRONIC OBSTRUCTIVE PULMONARY DISEASE, UNSPECIFIED Qualifiers: COPD type: unspecified COPD Qualified Code(s): J44.9 - Chronic obstructive pulmonary disease, unspecified (4) CHF exacerbation Code(s): I50.9 - HEART FAILURE, UNSPECIFIED Qualifiers: Heart failure type: diastolic Qualified Code(s): I50.33 - Acute on chronic diastolic (congestive) heart failure (5) CVA (cerebral vascular accident) Code(s): I63.9 - CEREBRAL INFARCTION, UNSPECIFIED Qualifiers: CVA mechanism: occlusion Precerebral and cerebral artery: unspecified cerebral artery Qualified Code(s): I63.50 - Cerebral infarction due to unspecified occlusion or stenosis of unspecified cerebral artery (6) Carotid stenosis Code(s): I65.29 - OCCLUSION AND STENOSIS OF UNSPECIFIED CAROTID ARTERY (7) Diastolic CHF Code(s): I50.30 - UNSPECIFIED DIASTOLIC (CONGESTIVE) HEART FAILURE (8) Heart failure with reduced ejection fraction Code(s): I50.20 - UNSPECIFIED SYSTOLIC (CONGESTIVE) HEART FAILURE (9) Nicotine abuse Code(s): Z72.0 - TOBACCO USE (10) Pleural effusion Code(s): J90 - PLEURAL EFFUSION, NOT ELSEWHERE CLASSIFIED (11) Shortness of breath Code(s): R06.02 - SHORTNESS OF BREATH (12) Tobacco use Code(s): Z72.0 - TOBACCO USE (13) Acute on chronic diastolic (congestive) heart failure Code(s): I50.33 - ACUTE ON CHRONIC DIASTOLIC (CONGESTIVE) HEART FAILURE (14) CAD (coronary artery disease) Code(s): I25.10 - ATHSCL HEART DISEASE OF [place] CORONARY ARTERY W/O ANG PCTRS Qualifiers: Coronary Disease-Associated Artery/Lesion type: [place] artery [place] vs. transplanted heart: [place] heart Associated angina: without angina Qualified Code(s): I25.10 - Atherosclerotic heart disease of [place] coronary artery without angina pectoris (15) CKD (chronic kidney disease) stage 3, GFR 30-59 ml/min Code(s): N18.3 - CHRONIC KIDNEY DISEASE, STAGE 3 (MODERATE) (16) Carotid stenosis, left Code(s): I65.22 - OCCLUSION AND STENOSIS OF LEFT CAROTID ARTERY (17) Cerebrovascular disease Code(s): I67.9 - CEREBROVASCULAR DISEASE, UNSPECIFIED (18) Diabetes Code(s): E11.9 - TYPE 2 DIABETES MELLITUS WITHOUT COMPLICATIONS Qualifiers: Diabetes mellitus type: type 2 (19) HTN (hypertension) Code(s): I10 - ESSENTIAL (PRIMARY) HYPERTENSION Qualifiers: Hypertension type: essential hypertension Qualified Code(s): I10 - Essential (primary) hypertension (20) History of myocardial infarction Code(s): I25.2 - OLD MYOCARDIAL INFARCTION (21) Hyperlipidemia Code(s): E78.5 - HYPERLIPIDEMIA, UNSPECIFIED Qualifiers: Hyperlipidemia type: pure hypercholesterolemia Qualified Code(s): E78.00 - Pure hypercholesterolemia, unspecified (22) Back pain Code(s): M54.9 - DORSALGIA, UNSPECIFIED Qualifiers: Back pain location: thoracic back pain Chronicity: acute Assessment/Plan Lasix No smoking and illicit substances was counseled Supplemental O2 as needed BD TX PRN Daily weights Sleep screen Prednisone pfts outpatient Dr Mcdaniel Problem List - Problems (1) Cocaine abuse Code(s): F14.10 - COCAINE ABUSE, UNCOMPLICATED (2) CHF (congestive heart failure) Code(s): I50.9 - HEART FAILURE, UNSPECIFIED Qualifiers: Heart failure type: unspecified Heart failure chronicity: unspecified Qualified Code(s): I50.9 - Heart failure, unspecified (3) COPD (chronic obstructive pulmonary disease) Code(s): J44.9 - CHRONIC OBSTRUCTIVE PULMONARY DISEASE, UNSPECIFIED Qualifiers: COPD type: unspecified COPD Qualified Code(s): J44.9 - Chronic obstructive pulmonary disease, unspecified (4) CHF exacerbation Code(s): I50.9 - HEART FAILURE, UNSPECIFIED Qualifiers: Heart failure type: diastolic Qualified Code(s): I50.33 - Acute on chronic diastolic (congestive) heart failure (5) CVA (cerebral vascular accident) Code(s): I63.9 - CEREBRAL INFARCTION, UNSPECIFIED Qualifiers: CVA mechanism: occlusion Precerebral and cerebral artery: unspecified cerebral artery Qualified Code(s): I63.50 - Cerebral infarction due to unspecified occlusion or stenosis of unspecified cerebral artery (6) Carotid stenosis Code(s): I65.29 - OCCLUSION AND STENOSIS OF UNSPECIFIED CAROTID ARTERY (7) Diastolic CHF Code(s): I50.30 - UNSPECIFIED DIASTOLIC (CONGESTIVE) HEART FAILURE (8) Heart failure with reduced ejection fraction Code(s): I50.20 - UNSPECIFIED SYSTOLIC (CONGESTIVE) HEART FAILURE (9) Nicotine abuse Code(s): Z72.0 - TOBACCO USE (10) Pleural effusion Code(s): J90 - PLEURAL EFFUSION, NOT ELSEWHERE CLASSIFIED (11) Shortness of breath Code(s): R06.02 - SHORTNESS OF BREATH (12) Tobacco use Code(s): Z72.0 - TOBACCO USE (13) Acute on chronic diastolic (congestive) heart failure Code(s): I50.33 - ACUTE ON CHRONIC DIASTOLIC (CONGESTIVE) HEART FAILURE (14) CAD (coronary artery disease) Code(s): I25.10 - ATHSCL HEART DISEASE OF [place] CORONARY ARTERY W/O ANG PCTRS Qualifiers: Coronary Disease-Associated Artery/Lesion type: [place] vs. transplanted heart: [place] heart Associated angina: without angina Qualified Code(s): I25.10 - Atherosclerotic heart disease of [place] coronary artery without angina pectoris (15) CKD (chronic kidney disease) stage 3, GFR 30-59 ml/min Code(s): N18.3 - CHRONIC KIDNEY DISEASE, STAGE 3 (MODERATE) (16) Carotid stenosis, left Code(s): I65.22 - OCCLUSION AND STENOSIS OF LEFT CAROTID ARTERY (17) Cerebrovascular disease Code(s): I67.9 - CEREBROVASCULAR DISEASE, UNSPECIFIED (18) Diabetes Code(s): E11.9 - TYPE 2 DIABETES MELLITUS WITHOUT COMPLICATIONS Qualifiers: Diabetes mellitus type: type 2 (19) HTN (hypertension) Code(s): I10 - ESSENTIAL (PRIMARY) HYPERTENSION Qualifiers: Hypertension type: essential hypertension Qualified Code(s): I10 - Essential (primary) hypertension (20) History of myocardial infarction Code(s): I25.2 - OLD MYOCARDIAL INFARCTION (21) Hyperlipidemia Code(s): E78.5 - HYPERLIPIDEMIA, UNSPECIFIED Qualifiers: Hyperlipidemia type: pure hypercholesterolemia Qualified Code(s): E78.00 - Pure hypercholesterolemia, unspecified (22) Back pain Code(s): M54.9 - DORSALGIA, UNSPECIFIED Qualifiers: Back pain location: thoracic back pain Chronicity: acute
--- NOTE | 2019-04-14 15:18 | PN ---
Teaching Attending Note Name of Resident: Roxane Lauren ATTENDING PHYSICIAN STATEMENT I saw and evaluated the patient. I reviewed the resident's note and discussed the case with the resident. I agree with the resident's findings and plan as documented. SUBJECTIVE: no pain, no fever or chills. No HURD OBJECTIVE: NAD, awake, alert, cooperative CV: RRR, Lungs: minimal bibasilar crackles, no wheezes. Ext : 1+ edema on legs ASSESSMENT AND PLAN: 58 y/o man with h/o chronic diastolic CHF, COPD, HTN, HLP, CAD, s/p ND and stents , DM, CKD, anemia, cocaine abuse, Angioedema ( ACEI), AAA, TIA, R CEA, who presented with SOb and was found to have acute CHF 1- Acute diastolic CHF 2- Possible acute COPD exacerbation 3- CP : resolved . 4- HTN urgency 5- Uncontrolled DM. 6- HLP 7- CKD 8- b/l pleural effusions 9- infrarenal AAA 3 cm 10- mediastinal lymphadenopathy Plan: - cont PO lasix - side effects form steroids ( severe HTn and hyperglycemia) . will change to po prednisone with a quick taper - BP improved after am meds were given - cont nebs - add symbicort and add Albuterol inhaler after dc - cont home dose levemir 30 BID and SSI . he can increase his levemir dose to 33 bid while on steroids - cont SSI - cont procardia, HZN, aldactone, Imdur, and labetalol - asa, plavix. - hold lipitor until LFTS are repated as out pt - f/u with vascular fro the AAA - f/u with pulmonary for mediastinal lymphadeniopathy - repeat K , if betetr or stable can dc home with close f/u
[2019-04-14] MEDS ORDERED: ALBUTEROL SO4 2.5/IPRATROPIUM 0.5 INH SOL 3 ML VIAL.NEB. NEB ONE (17:19)
[2019-04-14] MEDS ORDERED: SODIUM ZIRCONIUM CYCLOSILICATE (LOKELMA) 5 GM PACKET PO ONE (17:20)
--- NOTE | 2019-04-14 18:35 | PN ---
Physical Exam: SUBJECTIVE: Patient seen and examined at bedside. pt states he feels improved and feels that the swelling in his legs improved. pt denies sob, cp, palpitations OBJECTIVE: Vital Signs Period Temp Pulse Resp BP Sys/Caal Pulse Ox Last 24 Hr 97.4 F-98.2 F 75-81 20-20 148-192/82-125 98 GENERAL: The patient is awake, alert, and fully oriented, in no acute distress. HEAD: Normal with no signs of trauma. LUNGS: Breath sounds equal, clear to auscultation bilaterally, no wheezes, no accessory muscle use. HEART: Regular rate and rhythm, S1, S2 without murmur ABDOMEN: Soft, nontender, nondistended, normoactive bowel sounds, no guarding EXTREMITIES: 2+ pulses, warm, well-perfused, 2+ LE edema. NEUROLOGICAL: Cranial nerves II through XII grossly intact. Normal speech SKIN: Warm, dry, normal turgor, no rashes or lesions noted Laboratory Results 04/14/19 04/14/19 04/14/19 06:32 06:32 12:07 WBC 12.7 H RBC 3.34 L Hgb 10.1 L Hct 31.4 L MCV 94.0 MCH 30.2 MCHC 32.1 RDW 15.8 Plt Count 340 MPV 7.6 Sodium 132 L Potassium 5.2 H Chloride 100 Carbon Dioxide 24 Anion Gap 7 L BUN 32.5 H Creatinine 1.6 H Est GFR (CKD-EPI)AfAm 54.61 Est GFR (CKD-EPI)NonAf 47.12 POC Glucometer 282 Random Glucose 337 H Calcium 9.0 Phosphorus 3.5 Magnesium 2.3 Total Bilirubin 0.4 Direct Bilirubin 0.2 AST 47 H ALT 91 H Alkaline Phosphatase 245 H Total Protein 7.6 Albumin 3.4 Current Medications Albuterol Sulfate (Ventolin 0.083% Nebulizer Soln -) 1 amp NEB Q4H PRN PRN Reason: SHORT OF BREATH/WHEEZING Albuterol/Ipratropium (Duoneb -) 1 amp NEB RQID [facility] Last Admin: 04/14/19 16:58 Dose: 1 amp Aspirin (Ecotrin -) 81 mg PO DAILY [facility] Last Admin: 04/14/19 09:39 Dose: 81 mg Atorvastatin Calcium (Lipitor -) 80 mg PO HS [facility] Last Admin: 04/12/19 22:41 Dose: 80 mg Benzocaine/Menthol (Cepacol Lozenge -) 1 each MM PRN PRN PRN Reason: SORE THROAT Clopidogrel Bisulfate (Plavix -) 75 mg PO DAILY [facility] Last Admin: 04/14/19 09:38 Dose: 75 mg Docusate Sodium (Colace -) 200 mg PO DAILY [facility] Last Admin: 04/14/19 09:38 Dose: 200 mg Furosemide (Lasix -) 40 mg PO BID@0600,1400 [facility] Last Admin: 04/14/19 14:01 Dose: 40 mg Heparin Sodium (Porcine) (Heparin -) 5,000 unit SQ TID [facility] Last Admin: 04/14/19 14:01 Dose: 5,000 unit Hydralazine HCl (Apresoline -) 100 mg PO TID [facility] Last Admin: 04/14/19 14:01 Dose: 100 mg Insulin Aspart (Novolog Vial Sliding Scale -) 1 vial SQ [facility]; Protocol Last Admin: 04/14/19 17:42 Dose: 8 units Insulin Detemir (Levemir Vial) 33 units SQ BID@0700,2200 [facility] Isosorbide Mononitrate (Imdur -) 60 mg PO DAILY [facility] Last Admin: 04/14/19 09:38 Dose: 60 mg Labetalol HCl (Normodyne -) 400 mg PO TID [facility] Last Admin: 04/14/19 15:01 Dose: 400 mg Nifedipine (Procardia Xl -) 120 mg PO DAILY [facility] Last Admin: 04/14/19 09:39 Dose: 120 mg Prednisone (Deltasone -) 30 mg PO DAILY [facility] Senna (Senna -) 2 tab PO HS PRN PRN Reason: CONSTIPATION chest CT: Impression: Small bilateral pleural effusions. Multichamber cardiomegaly. Dilatation of the main pulmonary artery is again noted (4.2 cm diameter) consistent with increased pulmonary arterial pressure. Bilateral upper and lower lobe groundglass parenchymal opacity is noted as on the previous CT study of 12/01/2018 which may be on the basis of acute and/or chronic vascular congestion. As on the prior exam there is mild left posterior basilar opacity probably due to atelectasis, less likely representing a small infiltrate. Minimal bilateral flank subcutaneous edema which appears improved. Note is again made of nonspecific mediastinal lymphadenopathy without definite interval change in comparison to the 12/01/2018 CT exam. This finding however appears somewhat increased in comparison to a more remote CT exam of 11/02/2018. PET/CT evaluation may be considered. Duplex U/S Impression: No DVT is identified involving either leg. Please see above. Abdomen U/s IMPRESSION: Small bilateral pleural effusions. Distention of the hepatic veins and inferior vena cava is noted presumably secondary to cardiac dysfunction. 0.9 x 0.3 cm nonobstructing right renal calculus. Aneurysmal dilatation of the infrarenal aorta is noted. The current ultrasound exam under appreciates the degree of aneurysmal dilatation possibly due to superimposed bowel gas. A 4.3 cm infrarenal aortic aneurysm was identified on CT performed 12/01/2018. The current ultrasound exam under appreciates the degree of aortic dilatation suggesting a 3 cm diameter. Subsequent periodic surveillance imaging is suggested utilizing CT or MRI. ASSESSMENT/PLAN: 58 yo M PMH of HTN, HLD, CAD ( [place], stents), HFpEF,DM 2 , COPD/asthma, right carotid endarterectomy, stage 3 CKD, TIA, AAA (stable), Polysubstance abuse (cocaine and alcohol)presented to the ED with chest pain and shortness of breath. Acute on chronic HFpEF -BNP 3576.8 -lasix changed to home dose, 40 mg PO BID -c/w Aldactone -Chest CT shows bilateral small pleural effusions, cardiomegaly, dilated main pulmonary artery c/w increased PA pressure, bilateral ground glass parenchymal opacity, mild left posterior basilar opacity - cardio recs appreciated, Dr. Ro Abdominal pain - US shows bilateral small pleural effusions, distended hepatic veins and IVC, non-obstructing right renal calculus, aneurysmal dilatation of infrarenal aorta HTN - c/w Procardia XL, Labetalol, Hydralazine, Aldactone, Lasix Hyperlipidemia -Lipitor is held 2/2 elevated LFTs - continue to monitor LFTs, may need to DC tomorrow CAD,s/p PCI with stents - Continue aspirin, Plavix, Lipitor, Imdur DM: -ISS/ BGM - sugars have bethany uncontrolled, likely 2/2 steroid - increase to Levemir 33 mg BID while on steroids - continue to monitor Asthma/COPD - Continue DuoNeb, Ventolin prn -will decrease steroid to prednisone 40 today. -pulm (Dr. Azar) recs appreciated - NIKOS sleep screen on DC Stage 3 CKD - Monitor BUN, creatinine -avoid nephrotoxic agents -pt Cr at baseline , 1.6 today History of TIA - Continue aspirin, Plavix, Lipitor AAA -stable at 4.3cm, compared to 12/2018 Polysubstance abuse -not actively withdrawing Anemia secondary to chronic illness -H/H stable Transminitis - Lipitor held - LFTs improving - pt should f/u outpt to discuss restarting HyperKalemia -lokelma, albuterol, hold spironolactone - rpt bmp - continue to monitor DVT ppx: heparin 5K Possible DC tomorrow Visit type - Emergency Visit Emergency Visit: No - New Patient This patient is new to me today: No - Critical Care Critical Care patient: No - Discharge Referral Referred to [facility] Yes Physician Referral: Lenny Esquivel MD ([facility]) ATTENDING PHYSICIAN STATEMENT I saw and evaluated the patient. I reviewed the resident's note and discussed the case with the resident. I agree with the resident's findings and plan as documented. SUBJECTIVE: OBJECTIVE: ASSESSMENT AND PLAN:
[2019-04-14] MEDS ORDERED: INSULIN (LEVEMIR) 100 UNITS/ML UNITS SQ SCH (22:00)
[2019-04-15 01:12] LABS: BLOOD UREA NITROGEN 38.4 mg/dL (7-18); CALCIUM 9.2 mg/dL (8.5-10.1); CREATININE 1.7 mg/dL (0.55-1.3)
[2019-04-15] MEDS ORDERED: SPIRONOLACTONE 25 MG TABLET (FP) PO ONE (01:53)
[2019-04-15 01:55] VITALS: TEMP 98
[2019-04-15] MEDS ORDERED: LABETALOL HCL 200 MG TABLET (FP) PO ONE (02:03)
[2019-04-15 08:03] VITALS: BP 199/138; PULSE 83
[2019-04-15] MEDS ORDERED: predniSONE 10 MG TABLET (UD) PO SCH (10:00)
--- NOTE | 2019-04-15 19:18 | DS ---
Physical Exam: SUBJECTIVE: Pt left AMA and was unable to be seen OBJECTIVE: Vital Signs Period Temp Pulse Resp BP Sys/Caal Pulse Ox Last 24 Hr 97.9 F-98 F 82-83 20-20 164-199/119-138 97-97 PHYSICAL EXAM could not evaluate as pt left ama LABS Laboratory Results - last 24 hr 04/14/19 04/15/19 20:34 00:05 Sodium 134 L Potassium 4.0 Chloride 97 L Carbon Dioxide 26 Anion Gap 11 BUN 38.4 H Creatinine 1.7 H Est GFR (CKD-EPI)AfAm 50.75 Est GFR (CKD-EPI)NonAf 43.79 POC Glucometer 366 Random Glucose 344 H Calcium 9.2 HOSPITAL COURSE: Date of Admission:04/10/[address]: Impression: Small bilateral pleural effusions. Multichamber cardiomegaly. Dilatation of the main pulmonary artery is again noted (4.2 cm diameter) consistent with increased pulmonary arterial pressure. Bilateral upper and lower lobe groundglass parenchymal opacity is noted as on the previous CT study of 12/01/2018 which may be on the basis of acute and/or chronic vascular congestion. As on the prior exam there is mild left posterior basilar opacity probably due to atelectasis, less likely representing a small infiltrate. Minimal bilateral flank subcutaneous edema which appears improved. Note is again made of nonspecific mediastinal lymphadenopathy without definite interval change in comparison to the 12/01/2018 CT exam. This finding however appears somewhat increased in comparison to a more remote CT exam of 11/02/2018. PET/CT evaluation may be considered. Duplex U/S Impression: No DVT is identified involving either leg. Please see above. Abdomen U/s IMPRESSION: Small bilateral pleural effusions. Distention of the hepatic veins and inferior vena cava is noted presumably secondary to cardiac dysfunction. 0.9 x 0.3 cm nonobstructing right renal calculus. Aneurysmal dilatation of the infrarenal aorta is noted. The current ultrasound exam under appreciates the degree of aneurysmal dilatation possibly due to superimposed bowel gas. A 4.3 cm infrarenal aortic aneurysm was identified on CT performed . The current ultrasound exam under appreciates the degree of aortic dilatation suggesting a 3 cm diameter. Subsequent periodic surveillance imaging is suggested utilizing CT or MRI. 58 yo M PMH of HTN, HLD, CAD ( [place], stents), HFpEF,DM 2 , COPD/asthma, right carotid endarterectomy, stage 3 CKD, TIA, AAA (stable), Polysubstance abuse ( cocaine and alcohol)presented to the ED with chest pain and shortness of breath. Pt was admitted for sob 2/2 Acute on chronic HFpEF and COPD exacerbation. For HFpEF pt was given IV lasix and home po aldacone. cardiology was consulted and recommendations were appreciated. Pt was continued on procardia xl, labetalol, hydralazine, plavix, imdur , aldactone and lasix. pt had several episodes of hypertensive urgency during hospital course, despite being medicated. Pt was also being treated with duonebs, ventolin and steroids for copd exacerbation. steroids likely contributed to poor glycemic and BP control, steroids tapered. pt was continued on levemir and sliding scale during hospital course. CKD was monitored and nephrotoxic agents were avoided. AAA was seen again on CT and stable at 4.3. During hospial course, pt had transaminitis and statin was held. yesterday pt had hyperkalemia and was given lokelma. pt could not be re- evaluated today as pt left AMA . pt should follow up with PMD, pulmonology, cardiology regarding close follow up for chronic medical conditions and repeat labs Date of Discharge: 04/15/19 Minutes to complete discharge: 36 Discharge Summary Problems reviewed: Yes Reason For Visit: ACUTE ON CHRONIC CHF Condition: Improved - Instructions Diet, Activity, Other Instructions: You came into the hospital for chest pain and shortness of breath. You were found to have an exacerbation of your heart failure. You were treated with a diuretic, Lasix. You also had an exacerbation of your COPD. You were treated with steroids and nebulizer treatments. Because you are on steroids, it is very important for you to have close monitoring of your sugar and to use your insulin sliding scale appropriately.in addition to your long acting insulin While you were in the hospital, your liver numbers were elevated. These numbers improved when we stopped your Atorvastatin. Your CT of your chest shows that you have an aortic aneurysm, this is unchanged in size. Medications: Please continue to take Prednisone for 6 days as follows: stat tomorrow ( ) Day 1: Prednisone 30 mg daily Day 2: Prednisone 30 mg daily Day 3: Prednisone 20 mg daily Day 4: Prednisone 20 mg daily Day 5: Prednisone 10 mg daily Day 6: Prednisone 10 mg daily Please continue to take your home medications as prescribed. Please continue to use your inhalers as prescribed. Please do not continue to take Atorvastatin until you consult your primary care provider. ( repeat liver enzymes is needed in 1 week ) Please follow up with your primary care physician, Dr. Hernandez, in 1 week to monitor your blood pressure and diabetes. You will need to have a repeat CBC and CMP. Please readdress resuming Atorvastatin Please follow up with your Artist Manager, Dr. Mcdaniel, to evaluate the enlarged lymph nodes in your mediastinum. Please follow up with your Receiving Lead, Dr. Ro, in 1 week to monitor the improvement of your heart failure please follow with Dr. Johnson, vascular surgeon to follow up on the AAA ( aortic aneurysm ) you need BMP done in 1 week ( important ) If you have any new, alarming, or concerning symptoms please come back to the ER or call 911. while on the prednisone, it is ok to take 33 units of levemir twice a day , then drop down to your normal dose of 30 twice a day after you finishe predniosne taper. Call MD with any sugar value > 400. or < 80. Referrals: Basil Mcdaniel MD [Staff Physician] - 1 Week Lenny Hernandez MD [Primary Care Provider] - 1 Week Rajeev Johnson DO [Staff Physician] - Nils Ro MD [Staff Physician] - 1 Week Disposition: HOME - Home Medications Comprehensive Discharge Medication List: Ambulatory Orders Clopidogrel Bisulfate [Plavix] 75 mg PO DAILY 10/19/18 Albuterol 0.083% Nebulizer Jane [Ventolin 0.083% Nebulizer Soln -] 1 amp NEB Q4H #10 amp 11/01/18 Aspirin Coated [Ecotrin -] 81 mg PO DAILY tablet.ec 11/04/18 Insulin (Levemir) [Levemir Vial] 30 units SQ 0700,2200 units 11/04/18 Insulin Sliding Scale [Novolog Vial Sliding Scale -] 1 vial SQ ACHS units 11/04 Furosemide [Lasix -] 40 mg PO BID@0600,1400 #60 tablet 12/08/18 Labetalol HCl [Normodyne -] 400 mg PO TID #60 tablet 12/08/18 Hydralazine HCl 100 mg PO TID #180 tablet 01/06/19 Isosorbide Mononitrate [Imdur -] 60 mg PO DAILY #90 tab.sr.24h 01/06/19 Nifedipine [Procardia Xl] 120 mg PO DAILY #180 tab.er.24 01/06/19 Spironolactone [Aldactone -] 50 mg PO BID #120 tablet 01/06/19 Ergocalciferol (Vitamin D2) [Vitamin D2] 50,000 unit PO WEEKLY 02/13/19 Albuterol Sulfate Inhaler - [Ventolin HFA Inhaler -] 1 - 2 inh PO Q4H #1 inhaler 04/14/19 Budesonide/Formeterol Fumarate [SYMBICORT 80/4.5mcg -] 1 inh PO BID #1 cannister 04/14/19 Prednisone See Taper PO DAILY #13 tablet 04/14/19 This patient is new to me today: No Emergency Visit: No Critical Care patient: No - Discharge Referral Referred to [facility] Yes Physician Referral: Lenny Esquivel MD ([facility]) ATTENDING PHYSICIAN STATEMENT I saw and evaluated the patient. I reviewed the resident's note and discussed the case with the resident. I agree with the resident's findings and plan as documented. SUBJECTIVE: OBJECTIVE: ASSESSMENT AND PLAN:
--- NOTE | 2019-04-15 19:58 | HOSP ---
Subjective - Review of Symptoms Events since last encounter: patient left at 6:45 am , before the start of the day shift. He did not wait for MD counseling Physical Examination Vital Signs: Labs: CBC, BMP 04/14/19 06:32 04/15/19 00:05
--- NOTE | 2019-04-29 11:38 | EKG ---
Test Reason : Blood Pressure : / mmHG Vent. Rate : 077 BPM Atrial Rate : 077 BPM P-R Int : 172 ms QRS Dur : 118 ms QT Int : 406 ms P-R-T Axes : 061 025 126 degrees QTc Int : 459 ms NORMAL SINUS RHYTHM NON-SPECIFIC INTRA-VENTRICULAR CONDUCTION DELAY NONSPECIFIC ST AND T WAVE ABNORMALITY ABNORMAL ECG WHEN COMPARED WITH ECG OF 10-APR-2019 15:30, NONSPECIFIC T WAVE ABNORMALITY NOW EVIDENT IN INFERIOR LEADS T WAVE INVERSION NO LONGER EVIDENT IN LATERAL LEADS Confirmed by LETTY JESUS MD ([id number]) on 04/29/2019 11:37:55 AM Referred By: Confirmed By:LETTY JESUS MD
== END 2019-04-15 08:18 | disposition home or self-care (01) | DRG 194 ==
LOC: JER 09:14 → JERBED 11:53 → J4W 22:10
PROVIDERS: ADMIT Internal Medicine; ATTEND Internal Medicine
DX: I13.0 Hypertensive heart and chronic kidney disease with heart failure and stage 1 through stage 4 chronic kidney disease, or unspecified chronic kidney disease (principal); I50.33 Acute on chronic diastolic (congestive) heart failure; J18.9 Pneumonia, unspecified organism; F14.20 Cocaine dependence, uncomplicated; E11.22 Type 2 diabetes mellitus with diabetic chronic kidney disease; J44.1 Chronic obstructive pulmonary disease with (acute) exacerbation; E11.65 Type 2 diabetes mellitus with hyperglycemia; F10.20 Alcohol dependence, uncomplicated; E87.5 Hyperkalemia; Z79.4 Long term (current) use of insulin; E66.9 Obesity, unspecified; N18.3 Chronic kidney disease, stage 3 (moderate); I25.10 Atherosclerotic heart disease of native coronary artery without angina pectoris; F17.210 Nicotine dependence, cigarettes, uncomplicated; I25.2 Old myocardial infarction; E78.5 Hyperlipidemia, unspecified; Z91.11 Patient's noncompliance with dietary regimen; D64.9 Anemia, unspecified; Z68.35 Body mass index [BMI] 35.0-35.9, adult; N20.0 Calculus of kidney; D63.8 Anemia in other chronic diseases classified elsewhere; R59.0 Localized enlarged lymph nodes
CPT/HCPCS: 36415; 36600; 71045-TC-FY; 71250-TC; 76604; 76700-TC; 76775-TC; 80048; 80053; 80076; 82375; 82550; 82803; 82947; 82962; 83036; 83050; 83735; 83880; 84100; 84132; 84484; 85025; 85027; 85610; 86850; 86900; 86901; 87040; 87804; 93005; 93010; 93308; 93970-TC; 94640; 99291; J0131; J1644

== ENCOUNTER 2019-08-29 06:53 | Inpatient (IN) | payer OTHER ==
--- NOTE | 2019-08-29 07:24 | PDOC ---
Rapid Medical Evaluation Chief Complaint: Shortness of Breath Time Seen by Provider: 08/29/19 07:05 Medical Evaluation: Allergies Allergy/AdvReac Type Severity Reaction Status Date / Time IRMA Inhibitors Allergy Verified 08/29/19 07:14 Vital Signs Temp Pulse Resp BP Pulse Ox 98.3 F 107 H 20 196/122 H 98 08/29/19 07:14 08/29/19 07:14 08/29/19 07:14 08/29/19 07:14 08/29/19 07:14 08/29/19 07:23 I have performed a brief in-person evaluation of this patient. The patient presents with a chief complaint of: sob w/ chest pressure and wheezing. Of note covid + 06/12. H/o asthma/COPD, CAD (s/p CO x 3, s/p PCI/stents), cardiomyopathy, cocaine use, HTN, HLD, DM, CKD Pertinent physical exam findings:NAD , BP sig elevated I have ordered the following:ekg/cxr/labs The patient will proceed to the ED for further evaluation. Discharge Disposition - Diagnosis SOB (shortness of breath) - Discharge Dispostion Last Admission D/C Date: 07/14/19 - Referrals Referrals: Lenny Hernandez MD [Primary Care Provider] - - Patient Instructions - Post Discharge Activity
--- NOTE | 2019-08-29 07:33 | PDOC ---
History of Present Illness - General Chief Complaint: Shortness of Breath Stated Complaint: DIFF BREATHING Time Seen by Provider: 08/29/19 07:05 History Source: Patient Exam Limitations: No Limitations - History of Present Illness Initial Comments: 08/29/19 07:33 59 y.o. M well known to the hospital w/ PMHx. of CKD(Stage III), asthma, COPD, CVA (no residual deficits), CAD( s/p [place] x 3, s/p PCI/stents), Non-ischemic cardiomyopathy, HTN, HLD, DM2, HFpEF( EF: 55%), Polysubstance Abuse(Cocaine and EtOH), AAA(3.9 cm), covid+ 06/20 presenting w sudden onset severe exertional/positional (worse lying down) braulio chest pressure, SOB, mild epigastric white productive cough which woke him up from sleep at 530a this morning. Took his nifedipine, hydralazine, symptoms slightly improved. Endorsed drinking 1 can of beer yesterday, no recent cocaine. Didn't take aspirin or prescribed lasix, labetalol, or spironolactone for past 6d bc he ran out. Doesn't follow up with cardiology, doesn't remember who is his doctor. Last seen on 07/13 for HTN, CVA workup which was negative. Past History - Medical History Allergies/Adverse Reactions: Allergies Allergy/AdvReac Type Severity Reaction Status Date / Time IRMA Inhibitors Allergy Verified 08/29/19 07:14 Home Medications: Ambulatory Orders Albuterol Sulfate Inhaler - [Ventolin HFA Inhaler -] 1 - 2 inh PO Q4H #1 inhaler 05/16/19 Aspirin Coated [Ecotrin -] 81 mg PO DAILY #30 tablet.ec 05/16/19 Budesonide/Formeterol Fumarate [SYMBICORT 80/4.5mcg -] 1 inh PO BID #1 cannister 05/16/19 Glipizide [Glipizide Xl] 10 mg PO DAILY #30 tab.er.24 05/16/19 Hydralazine HCl 100 mg PO TID #90 tablet 05/16/19 Isosorbide Mononitrate [Imdur -] 60 mg PO DAILY #30 tab.sr.24h 05/16/19 Labetalol HCl [Normodyne -] 400 mg PO TID #90 tablet 05/16/19 Nifedipine ER [Procardia XL -] 120 mg PO DAILY #60 tab.er.24 05/16/19 Tamsulosin HCl [Flomax -] 0.4 mg PO DAILY@0830 #30 cap.er.24h 05/16/19 Ergocalciferol (Vitamin D2) [Vitamin D2] 50,000 unit PO FR 06/21/19 Fluticasone Propionate [Flovent Hfa] 2 puff IH BID 06/21/19 Albuterol 2.5/Ipratropium 0.5 [Duoneb -] 1 amp NEB TID PRN #10 amp 06/23/19 Clopidogrel Bisulfate [Plavix] 75 mg PO DAILY 07/11/19 Atorvastatin Ca [Lipitor] 40 mg PO HS #30 tablet 07/14/19 Furosemide [Lasix -] 40 mg PO BID@0600,1400 #60 tablet 07/14/19 Spironolactone [Aldactone -] 50 mg PO BID #60 tablet 07/14/19 Anemia: No Asthma: Yes Cancer: No Cardiac Disorders: Yes (ACS, CAD - s/p PCI/Stents, [place] X3, non-ischemic Cardiomyopathy,) CVA: Yes COPD: No CHF: Yes (Diastolic CHF) DVT: No Dementia: No Diabetes: Yes GI Disorders: No Disorders: No HTN: Yes Hypercholesterolemia: Yes Kidney Stones: No Liver Disease: No Seizures: No Thyroid Disease: No - Surgical History Abdominal Surgery: No Appendectomy: No Cardiac Surgery: Yes (Carotid endareterectomy) Cholecystectomy: No Lung Surgery: No Neurologic Surgery: No Orthopedic Surgery: Yes (Old injury fractured left ankle x2) - Reproductive History Testicular Surgery: No - Immunization History Immunization Up to Date: Yes - Psycho-Social/Smoking History Smoking Status: No Smoking History: Current every day smoker Have you smoked in the past 12 months: Yes Number of Cigarettes Smoked Daily: 1 If you are a former smoker, when did you quit?: smokes 2 x per week Information on smoking cessation initiated: Yes 'Breaking Loose' booklet given: 04/10/19 - Substance Abuse Hx (Audit-C & DAST Scrn) How often the patient has a drink containing alcohol: 2-4 times / month Number of drinks the patient has on a typical day: 1 or 2 How often the patient has six or more drinks on one occasion: Never Score: In Men: 4 or > Positive; In Women: 3 or > Positive: 2 Screen Result (Pos requires Nsg. Audit-10AR): Negative In the last yr the pt used illegal drug/Rx for NonMed reason: Yes Score: Yes response is considered Positive: 1 Screen Result (Positive result requires Nsg. DAST-10): Positive Review of Systems - Review of Systems Constitutional: No: Chills, Fever HEENTM: No: Eye Pain, Nose Pain Respiratory: Yes: Cough, Shortness of Breath Cardiac (ROS): Yes: Chest Pain. No: Palpitations ABD/GI: Yes: Abdominal Distended (chronic). No: Constipated, Diarrhea, Nausea, Vomiting : No: Burning, Dysuria Musculoskeletal: No: Back Pain, Joint Pain Integumentary: No: Bruising, Flushing Neurological: No: Headache, Seizure Psychiatric: No: Anxiety, Depression Endocrine: No: Intolerance to Cold, Intolerance to Heat Hematologic/Lymphatic: No: Anemia, Blood Clots *Physical Exam - Vital Signs Last Vital Signs Temp Pulse Resp BP Pulse Ox 98.3 F 107 H 20 196/122 H 98 08/29/19 07:14 08/29/19 07:14 08/29/19 07:14 08/29/19 07:14 08/29/19 07:14 - Physical Exam General Appearance: Yes: Nourished, Appropriately Dressed, Mild Distress HEENT: positive: EOMI, TATIANNA, Normal Voice, Hearing Grossly Normal. negative: Scleral Icterus (R), Scleral Icterus (L), Nasal Congestion Respiratory/Chest: positive: Wheezing (intermittent braulio). negative: Chest Tender, Accessory Muscle Use, Labored Respiration, Crackles, Rhonchi, Stridor Cardiovascular: positive: Regular Rhythm, S1, S2, Tachycardia. negative: Murmur Gastrointestinal/Abdominal: positive: Normal Bowel Sounds, Tender (mild e pigastric), Soft, Distended Extremity: positive: Pedal Edema (+1 pitting to knees braulio) Integumentary: positive: Normal Color, Warm Neurologic: positive: Fully Oriented, Alert, Normal Response, Responsive. negative: Confused, Disoriented Heart Score/ECG Review - History History: Moderately suspicious - Electrocardiogram EKG: Non specific repolarization disturbance - Age Age: 45-65 - Risk Factors Risk Factors Heart Score: Yes Hx Hypercholesterolemia, Yes Hx Hypertension, Yes Hx Diabetes, Yes Hx Obesity Based on the list above the patient has:: >/=3 risk factors or Hx atherosclerotic disease - Troponin Troponin: </= normal limit - Score Heart Score - Total: 5 ED Treatment Course - LABORATORY CBC & Chemistry Diagram: 08/29/19 07:42 08/29/19 07:42 Medical Decision Making - Medical Decision Making 08/29/19 08:04 EKG - sinus tachycardia, HR 108, QTc 485, new TWI V5, unchanged TWI V6 vs 07/11/19 CXR - no acute consolidation/infiltrates Chest CTA - no evidence of PE, diffuse groundglass opacities, small effusions ddimer 1100, BNP 3800, trop neg, Cr unchanged, WBC 10.5 --- 59 y.o. M well known to the hospital w/ PMHx. of CKD(Stage III), asthma, COPD, CVA (no residual deficits), CAD( s/p [place] x 3, s/p PCI/stents), Non-ischemic cardiomyopathy, HTN, HLD, DM2, HFpEF( EF: 55%), Polysubstance Abuse(Cocaine and EtOH), AAA(3.9 cm), covid+ 4/ presenting w sudden onset severe exertional/positional braulio chest pressure, SOB, mild epigastric white productive cough since 530a. Also HTN 196/122 and tachycardic 107 CHF exacerbation (leg/abd swelling, med noncompliance) vs drug abuse. Lower concern for COPD exacerbation vs PNA (afebrile, no consolidation) vs PE (neg) vs ACS (neg trop). Cr 1.7 unchanged Consented to CTA with high Cr 1.7 d/t medical emergency, need to r/o PE. Given 325 aspirin, 200 labetalolx2, pepcid, maalox, nitrox1, albuterol, tylenol, chest pressured relieved. Repeat BP 158/101 Admit tele for hypertensive emergency, CHF exacerbation, chest pain, ACS r/o (HEART 5) Discharge - Discharge Information Problems reviewed: Yes Clinical Impression/Diagnosis: Hypertensive urgency Chest pain Qualifiers: Chest pain type: unspecified Qualified Code(s): R07.9 - Chest pain, unspecified Condition: Improved - Follow up/Referral Referrals: Lenny Hernnadez MD [Primary Care Provider] - - Patient Discharge Instructions - Post Discharge Activity
--- NOTE | 2019-08-29 07:36 | PDOC ---
Attending Attestation - Resident Resident Name: Sotero Nguyen - ED Attending Attestation I have performed the following: I have examined & evaluated the patient, The case was reviewed & discussed with the resident, I agree w/resident's findings & plan - HPI HPI: 08/29/19 08:49 59 y.o. M well known to the hospital w/ PMHx. of CKD(Stage III), asthma, COPD, CVA (no residual deficits), CAD( s/p [place] x 3, s/p PCI/stents), Non-ischemic cardiomyopathy, HTN, HLD, DM2, HFpEF( EF: 55%), Polysubstance Abuse(Cocaine and EtOH), AAA(3.9 cm), covid+ 06/20 presenting w sudden onset severe exertional/positional (worse lying down) braulio chest pressure, SOB, mild epigastric white productive cough which woke him up from sleep at 530a this morning. Took his nifedipine, hydralazine, symptoms slightly improved. Endorsed drinking 1 can of beer yesterday, no recent cocaine. Didn't take aspirin or prescribed lasix, labetalol, or spironolactone for past 6d bc he ran out. Doesn't follow up with cardiology, doesn't remember who is his doctor. Last seen on 07/13 for HTN, CVA workup which was negative. - Physicial Exam PE: 08/29/19 08:20 General: awake and alert, NAD. HEENT: NCAT, PERRL, EOMI, clear conjunctiva, anicteric, moist mucous membranes, clear oropharynx, no oral lesions.. Neck: neck supple, FROM Resp: lungs clear, normal and even respirations, no respiratory distress CVS: RRR, no murmurs, 2+ peripheral pulses throughout, no peripheral edema Abdomen: soft, NTND, no rebound or guarding. No CVAT. Back: nontender, normal inspection and ROM] MSK: no edema, MESA x4, ROM intact. No clubbing or cyanosis. normal bulk and tone. Extremities: no calf tenderness Neuro: alert, oriented appropriately; no focal neurologic deficits Skin: warm and well perfused, cap refill <2 sec, normal color 08/29/19 12:28 - Medical Decision Making 08/29/19 07:36 Vital Signs Temp Pulse Resp BP Pulse Ox 98.3 F 107 H 20 196/122 H 98 08/29/19 07:14 08/29/19 07:14 08/29/19 07:14 08/29/19 07:14 08/29/19 07:14 vitals reviewed, HTN and mild tachy DDx SOB: ACS, PE, PTX, CHF, COPD exac, pulmonary edema, pleurisy, pneumonia, viral syndrome. effusion. anemia, electrolyte/metabolic derangements. Considered but clinically doubt based on HPI and PE: Low suspicion for pulmonary embolism or dissection. Interpreted by ED Physician: CXR (1 view): no acute abnormality: Cardiomegaly, hilar prominence and some atelectatic changes and scarring in the left base otherwise no acute pathology is noted, no significant change compared to previous EKG Sinus tachycardia 108 bpm, T wave inversions in V5 and F0yksymy QRS, ST and T wave segments and morphology normal. Nonspecific T wave abnormalities, unchanged from prior Chest pain HEART score 5 which denotes Moderate risk and probability for ACS, risk of 14-16% of MACE at 4-6 wks Given risk factors including comorbidities, gender, clinical history labs and lytes with baseline anemia, no change. baseline CKD, trop neg bnp is elevated, similar to prior range and has h/o ckd and chf. ASA given epigastric pain - trial GI cocktail labetalol for HTN urgency in the setting of cp and symptoms Plan for admit observation, for HTN urgency/Chest pain, r/o ACS, to r/o ischemia, serial trops and EKG/tele monitoring. ASA administered, pain controlled, discussion with patient and family at bedside, made aware of impression and plan, questions answered. 08/29/19 08:20 08/29/19 12:29 Heart Score/ECG Review - History History: Moderately suspicious - Electrocardiogram EKG: Non specific repolarization disturbance - Age Age: 45-65 - Risk Factors Risk Factors Heart Score: Yes Hx Hypercholesterolemia, Yes Hx Hypertension, Yes Hx Diabetes Based on the list above the patient has:: >/=3 risk factors or Hx atherosclerotic disease - Troponin Troponin: </= normal limit - Score Heart Score - Total: 5 #1 ECG reviewed & interpreted by me at: 07:50 General ECG Interpretation: Sinus Rhythm Compared to previous ECG there are: No significant change 08/29/19 08:21 EKG Sinus tachycardia 108 bpm, T wave inversions in V5 and Q2mohwms QRS, ST and T wave segments and morphology normal. Nonspecific T wave abnormalities, unchanged from prior Discharge - Discharge Information Problems reviewed: Yes Clinical Impression/Diagnosis: Hypertensive urgency Chest pain Qualifiers: Chest pain type: unspecified Qualified Code(s): R07.9 - Chest pain, unspecified Condition: Guarded - Admission Yes - Follow up/Referral Referrals: Lenny Hernandez MD [Primary Care Provider] - - Patient Discharge Instructions - Post Discharge Activity Vital Signs - Vital Signs Vital signs refused: No Pulse Rate: 88 Respiratory Rate: 18 Blood Pressure: 164/121 BP Location: Left Arm Blood Pressure position: Sitting
[2019-08-29] MEDS ORDERED: NITROGLYCERIN SUBLINGUAL 1/150 0.4 MG TAB SL ONE (07:55)
[2019-08-29] MEDS ORDERED: ASPIRIN 325 MG TABLET PO ONE (07:55)
[2019-08-29] MEDS ORDERED: LABETALOL HCL 200 MG TABLET (FP) PO ONE ×2 (07:55→09:06)
[2019-08-29] MEDS ORDERED: MAG HYDROX/AL HYDROX/SIMETH 30 ML UNIT-DOSE CUP PO ONE (08:03)
[2019-08-29] MEDS ORDERED: ASPIRIN 81 MG CHEWABLE TABLETS ONE (08:06)
[2019-08-29] MEDS ORDERED: ALBUTEROL SO4 2.5/IPRATROPIUM 0.5 INH SOL 3 ML VIAL.NEB. NEB ONE (08:06)
[2019-08-29] MEDS ORDERED: LABETALOL HCL 100 MG TABLET (FP) ONE ×2 (08:07→09:08)
[2019-08-29] MEDS ORDERED: MAG HYDROX/AL HYDROX/SIMETH 30 ML UNIT-DOSE CUP ONE (08:07)
[2019-08-29] MEDS ORDERED: ALBUTEROL SO4 HFA INHALER IH ONE ×2 (08:08→08:09)
[2019-08-29] MEDS ORDERED: FAMOTIDINE 20 MG/50 ML IVPB 20 MG/50 ML MG IVPB ONE ×2 (08:08→08:15)
[2019-08-29 08:09] LABS: BASO % 0.7 % (0-2.0); EOS % 1.6 % (0-4.5); HEMATOCRIT 34.4 % (35.4-49); HEMOGLOBIN 11.1 GM/dL (11.7-16.9); LYMPH % 12.4 % (8-40); MCH 31.3 pg (25.7-33.7); MCHC 32.2 g/dl (32.0-35.9); MEAN CELL VOLUME 97.2 fl (80-96); MEAN PLT VOLUME 7.4 fl (7.5-11.1); MONO % 5.9 % (3.8-10.2); NEUT % 79.4 % (42.8-82.8); PLATELET COUNT 326 K/MM3 (134-434); RBC 3.54 M/mm3 (4.00-5.60); RDW 15.1 % (11.9-15.9); WHITE BLOOD COUNT 10.5 K/mm3 (4.0-10.0)
[2019-08-29] MEDS ORDERED: ACETAMINOPHEN 500 MG TABLET (FP) PO ONE (08:16)
[2019-08-29] MEDS ORDERED: ACETAMINOPHEN 325 MG TABLET (FP) ONE (08:36)
[2019-08-29 08:44] LABS: ALBUMIN 3.2 g/dl (3.4-5.0); BILIRUBIN,TOTAL 0.5 mg/dL (0.2-1); BLOOD UREA NITROGEN 22.5 mg/dL (7-18); CALCIUM 8.8 mg/dL (8.5-10.1); CREATININE 1.7 mg/dL (0.55-1.3); N-TERMINAL BNP 3880.2 pg/ml (5-125); POTASSIUM 4.6 mmol/L (3.5-5.1); TOT PROT 7.2 g/dl (6.4-8.2)
[2019-08-29 08:49] LABS: INR 1.03 (0.83-1.09); PROTHROMBIN TIME (PATIENT) 12.2 SEC (9.7-13.0)
--- NOTE | 2019-08-29 10:18 | EKG ---
Test Reason : Blood Pressure : / mmHG Vent. Rate : 108 BPM Atrial Rate : 108 BPM P-R Int : 162 ms QRS Dur : 104 ms QT Int : 362 ms P-R-T Axes : 057 -04 094 degrees QTc Int : 485 ms SINUS TACHYCARDIA POSSIBLE LEFT ATRIAL ENLARGEMENT ABNORMAL ECG WHEN COMPARED WITH ECG OF 11-JUL-2019 09:37, NO SIGNIFICANT CHANGE WAS FOUND Confirmed by Soumya Verdin ([id number]) on 08/29/2019 10:18:30 AM Referred By: Confirmed By:Soumya Verdin
[2019-08-29] MEDS: HEPARIN NA (PORCINE) 5,000 UNITS/ML 1ML VIAL SQ SCH ×2 (15:00→22:07)
--- NOTE | 2019-08-29 15:41 | PN ---
Teaching Attending Note Name of Resident: Rosmery Guillen ATTENDING PHYSICIAN STATEMENT I saw and evaluated the patient. I reviewed the resident's note and discussed the case with the resident. I agree with the resident's findings and plan as documented. SUBJECTIVE:59 y.o. M well known to the hospital w/ PMHx. of CKD(Stage III), asthma, COPD, CVA (no residual deficits), CAD( s/p [place] x 3, s/p PCI/stents), Non- ischemic cardiomyopathy, HTN, HLD, DM2, HFpEF( EF: 55%), Polysubstance Abuse(Cocaine and EtOH), AAA(3.9 cm), covid+ 06/20 presenting w sudden onset severe exertional/positional (worse lying down) braulio chest pressure, SOB, mild epigastric white productive cough which woke him up from sleep at 530a this morning. Took his nifedipine, only, symptoms slightly improved. Endorsed drinking 1 can of beer yesterday, no recent cocaine. Didn't take aspirin or prescribed lasix, labetalol, or spironolactone for past 6d bc he ran out. Doesn't follow up with cardiology, doesn't remember who is his doctor. Last seen on 07/13 for HTN, CVA workup which was negative. is non compliant with his meds, and ends up at the hospital with htn emergency, was given Given 325 aspirin, 200 labetalolx2, pepcid, maalox, nitrox1, albuterol, tylenol, chest pressured relieved. OBJECTIVE: O/e is comfortable nad alert awake oriented into 3, bp 164/1221 neck supple no jvd cvs s1/s2/0 chest ctab abd benign ext no c/c/2+edema legs braulio. neuro non focal ASSESSMENT AND PLAN: 59 y.o. M well known to the hospital w/ PMHx. of CKD(Stage III), asthma, COPD, CVA (no residual deficits), CAD( s/p [place] x 3, s/p PCI/stents), Non-ischemic cardiomyopathy, HTN, HLD, DM2, HFpEF( EF: 55%), Polysubstance Abuse(Cocaine and EtOH), AAA(3.9 cm), covid+ 06/20 1.HTN Urgency/CHF exacerbation vs drug abuse. braulio chest pressure, PE ruled out , CTa is negative, no sign of pna, or infection, Given 325 aspirin, 200 labetalolx2, pepcid, maalox, nitrox1, albuterol, tylenol, chest pressured relieved. Repeat BP 158/[address] t changes, will get serial of cardiac markers, pt is non complant with the meds, and frequently admissions with similar complaints, Admit to tele for hypertensive Urgency CHF exacerbation, chest pain, ACS DM RISS, dvt prophylaxis,
[2019-08-29] MEDS ORDERED: HEPARIN NA (PORCINE) 5,000 UNITS/ML 1ML VIAL ONE (15:56)
--- NOTE | 2019-08-29 17:57 | HP ---
CHIEF COMPLAINT: chest pressure PCP: Dr. Hernandez HISTORY OF PRESENT ILLNESS: 59M well-known to the hospital w/ PMHx. of CKD(Stage III), asthma, COPD, CVA (no residual deficits), CAD( s/p MT x 3, s/p PCI/stents), Non-ischemic cardiomyopathy, HTN, HLD, DM2, HFpEF( EF: 55%), Polysubstance Abuse(Cocaine and EtOH), AAA(3.9 cm), covid+ 06/20 presenting w sudden onset severe exertional/positional (worse lying down) bilateral chest pressure, SOB, mild epigastric white productive cough. States he woke up at 530am due to his symptoms after which he took Nifedipine and Hydralazine. States he has had these symptoms in the past. Per ED note, he ran out of some of his prescription medications ~6 days ago (ASA, Lasix, Labetolol, Spironolactone). States he saw his PCP several months ago, but was not able to follow up with cardiology. Denies moore/d, f/c, n/v, abd pain, urinary/bowel symptoms. ER course was notable for: (1) Initial BP 196/122, 98% RA -- given PO Labetolol 200 x2 --> BP improved now to 144/94 (2) Trop neg x1, WBC 10.5, D-dimer 1166, Cr 1.7, BNP ~3880, COVID pending (3) ASA 325, Nitro SL, IV Pepcid, Mylanta, PO Tylenol given Recent Travel: Denies PAST MEDICAL HISTORY: As per HPI PAST SURGICAL HISTORY: CEA (2019) L testicular torsion repair Social History: Smokin cig/week Alcohol: 1 beer/week Drugs: former cocaine user, denies recent use Allergies IRMA Inhibitors Allergy (Verified 08/29/19 07:14) HOME MEDICATIONS: Home Medications Medication Instructions Recorded Albuterol Sulfate Inhaler - 1 - 2 inh PO Q4H #1 inhaler 05/16/19 [Ventolin HFA Inhaler -] Aspirin Coated [Ecotrin -] 81 mg PO DAILY #30 tablet.ec 05/16/19 Budesonide/Formeterol Fumarate 1 inh PO BID #1 cannister 05/16/19 [SYMBICORT 80/4.5mcg -] Hydralazine HCl 100 mg PO TID #90 tablet 05/16/19 Isosorbide Mononitrate [Imdur -] 60 mg PO DAILY #30 tab.sr.24h 05/16/19 Labetalol HCl [Normodyne -] 400 mg PO TID #90 tablet 05/16/19 Nifedipine ER [Procardia XL -] 120 mg PO DAILY #60 tab.er.24 05/16/19 Tamsulosin HCl [Flomax -] 0.4 mg PO DAILY@0830 #30 cap.er.24h 05/16/19 Ergocalciferol (Vitamin D2) 50,000 unit PO FR 06/21/19 [Vitamin D2] Fluticasone Propionate [Flovent 2 puff IH BID 06/21/19 Hfa] Albuterol 2.5/Ipratropium 0.5 1 amp NEB TID PRN #10 amp 06/23/19 [Duoneb -] Clopidogrel Bisulfate [Plavix] 75 mg PO DAILY 07/11/19 Atorvastatin Ca [Lipitor] 40 mg PO HS #30 tablet 07/14/19 Spironolactone [Aldactone -] 50 mg PO BID #60 tablet 07/14/19 Furosemide [Lasix -] 40 mg PO BID 08/29/19 Glipizide Xl [Glucotrol Xl -] 2.5 mg PO DAILY 08/29/19 Metformin HCl [Glucophage] 1,000 mg PO BID 08/29/19 REVIEW OF SYSTEMS CONSTITUTIONAL: Absent: fever, chills, diaphoresis, generalized weakness, malaise, loss of appetite, weight change HEENT: Absent: rhinorrhea, nasal congestion, throat pain, throat swelling, difficulty swallowing, mouth swelling, ear pain, eye pain, visual changes CARDIOVASCULAR: +chest pressure b/l Absent: chest pain, syncope, palpitations, irregular heart rate, lightheadedness, peripheral edema RESPIRATORY: cough w/ white productive sputum Absent: shortness of breath, dyspnea with exertion, orthopnea, wheezing, stridor, hemoptysis GASTROINTESTINAL: Absent: abdominal pain, abdominal distension, nausea, vomiting, diarrhea, constipation, melena, hematochezia GENITOURINARY: Absent: dysuria, frequency, urgency, hesitancy, hematuria, flank pain, genital pain MUSCULOSKELETAL: Absent: myalgia, arthralgia, joint swelling, back pain, neck pain SKIN: Absent: rash, itching, pallor HEMATOLOGIC/IMMUNOLOGIC: Absent: easy bleeding, easy bruising, lymphadenopathy, frequent infections ENDOCRINE: Absent: unexplained weight gain, unexplained weight loss, heat intolerance, cold intolerance NEUROLOGIC: Absent: headache, focal weakness or paresthesias, dizziness, unsteady gait, seizure, mental status changes, bladder or bowel incontinence PSYCHIATRIC: Absent: anxiety, depression, suicidal or homicidal ideation, hallucinations. PHYSICAL EXAMINATION Vital Signs - 24 hr 08/29/19 08/29/19 08/29/19 07:14 08:30 09:00 Temperature 98.3 F Pulse Rate 107 H Pulse Rate [ 104 H 89 Apical] Respiratory 20 26 H 25 H Rate Blood Pressure 196/122 H Blood Pressure 191/126 H 164/121 H [Left Arm] O2 Sat by Pulse 98 96 94 L Oximetry (%) 08/29/19 08/29/19 08/29/19 10:00 11:40 12:29 Temperature Pulse Rate 88 Pulse Rate [ 84 81 Apical] Respiratory 20 21 H 18 Rate Blood Pressure 164/121 H Blood Pressure 158/108 H 150/94 [Left Arm] O2 Sat by Pulse 98 98 Oximetry (%) 08/29/19 16:20 Temperature 98.3 F Pulse Rate Pulse Rate [ 91 H Apical] Respiratory 20 Rate Blood Pressure Blood Pressure 144/94 [Left Arm] O2 Sat by Pulse 96 Oximetry (%) GENERAL: AAOx3. NAD. Resting comfortably in bed. HEENT: AT/NC. EOMI. Dry mucus membranes. NECK: Normal range of motion, supple without lymphadenopathy, JVD, or masses. LUNGS: Mild b/l scattered wheezes. No accessory muscle use noted. Symmetric chest rise. HEART: RRR. Normal S1, S2. No murmurs noted. ABDOMEN: Protruberant. Obese, nontender, nondistended. Normoactive BS. No rebound tenderness or guarding. MUSCULOSKELETAL: Moves all extremities. EXTREMITIES: Mild b/l 1+ pitting edema noted. NEUROLOGICAL: Normal speech. Facial muscles intact. Normal sensation b/l. PSYCHIATRIC: Cooperative. Good eye contact. Appropriate mood and affect. SKIN: Warm, dry, normal turgor, no rashes or lesions noted, normal capillary refill. Laboratory Results - last 24 hr 08/29/19 08/29/19 08/29/19 07:42 07:42 07:42 WBC 10.5 H RBC 3.54 L Hgb 11.1 L Hct 34.4 L MCV 97.2 H MCH 31.3 MCHC 32.2 RDW 15.1 D Plt Count 326 MPV 7.4 L Absolute Neuts (auto) 8.3 H Neutrophils % 79.4 Lymphocytes % 12.4 Monocytes % 5.9 Eosinophils % 1.6 Basophils % 0.7 Nucleated RBC % 0 PT with INR 12.20 INR 1.03 D-Dimer Sodium 138 Potassium 4.6 Chloride 109 H Carbon Dioxide 22 Anion Gap 7 L BUN 22.5 H Creatinine 1.7 H Est GFR (CKD-EPI)AfAm 50.40 Est GFR (CKD-EPI)NonAf 43.49 POC Glucometer Random Glucose 151 H Calcium 8.8 Total Bilirubin 0.5 AST 27 ALT 34 Alkaline Phosphatase 154 H Creatine Kinase 115 Troponin I 0.02 B-Natriuretic Peptide 3880.2 H Total Protein 7.2 Albumin 3.2 L 08/29/19 08/29/19 08/29/19 07:42 09:06 16:43 WBC RBC Hgb Hct MCV MCH MCHC RDW Plt Count MPV Absolute Neuts (auto) Neutrophils % Lymphocytes % Monocytes % Eosinophils % Basophils % Nucleated RBC % PT with INR INR D-Dimer 1166 H Sodium Potassium Chloride Carbon Dioxide Anion Gap BUN Creatinine Est GFR (CKD-EPI)AfAm Est GFR (CKD-EPI)NonAf POC Glucometer 158 224 Random Glucose Calcium Total Bilirubin AST ALT Alkaline Phosphatase Creatine Kinase Troponin I B-Natriuretic Peptide Total Protein Albumin Active Medications Albuterol Sulfate (Ventolin Hfa Inhaler -) 2 puff IH Q4H PRN PRN Reason: ASTHMA Albuterol Sulfate (Ventolin Hfa Inhaler -) 1 puff IH Q4H PRN PRN Reason: ASTHMA Aspirin (Ecotrin -) 81 mg PO DAILY [facility] Atorvastatin Calcium (Lipitor -) 40 mg PO HS [facility] Budesonide/Formoterol Fumarate (Symbicort 80/4.5mcg -) 1 puff IH BID [facility] Clopidogrel Bisulfate (Plavix -) 75 mg PO DAILY [facility] Ergocalciferol (Drisdol -) 50,000 unit PO Fr@1000 [facility] Furosemide (Lasix -) 40 mg PO BIDLASIX [facility] Heparin Sodium (Porcine) (Heparin -) 5,000 unit SQ TID [facility] Last Admin: 08/29/19 15:00 Dose: 5,000 unit Documented by: Hydralazine HCl (Apresoline -) 100 mg PO TID [facility] Insulin Aspart (Novolog Vial Sliding Scale -) 1 vial SQ ACHS [facility]; Protocol Labetalol HCl (Normodyne -) 400 mg PO TID [facility] Nifedipine (Procardia Xl -) 120 mg PO DAILY [facility] Spironolactone (Aldactone -) 50 mg PO BID [facility] Tamsulosin HCl (Flomax -) 0.4 mg PO DAILY@0830 [facility] ASSESSMENT/PLAN: 59M well-known to the hospital w/ PMHx. of CKD(Stage III), asthma, COPD, CVA (no residual deficits), CAD( s/p MT x 3, s/p PCI/stents), Non-ischemic cardiomyopathy, HTN, HLD, DM2, HFpEF( EF: 55%), Polysubstance Abuse(Cocaine and EtOH), AAA(3.9 cm), covid+ 06/20 presenting w sudden onset severe exertional/positional (worse lying down) bilateral chest pressure, SOB, mild epigastric white productive cough admitted for hypertensive urgency. #Hypertensive Urgency; in setting of known CAD s/p MT/PCI/stent, hypertensive cardiovascular disease, diastolic CHF, medication non-compliance; r/o ACS/PE -Initial BP 196/122. Given PO Labetolol 200 mg x2, ASA 325, Nitro SL -EKG showed sinus tach, HR 108, QTc 485 ms, L atrial enlargement; unchanged from previous EKG -Trop neg x1, repeat trop pending -CTA neg for PE, diffuse GGO, small b/l pleural effusions, cardiomegaly, mediastinal LAD; no change since 05/12/19 -Latest Echo (01/03/19): LV mildly dilated, mild conc LVH, EF 50-55%, LA/RA mild dilated, mod to sev MR, mild to mod TR, mild AorScl, mild AR, mild pulm valv regurg, no pericardial effusion. -Cont to monitor BP; stress important of medication compliance and close outpatient follow up with PCP and cardio Cont home meds: Hydralazine 100 TID, Labetolol 400 TID, Nifedipine 120 QD, Spironolactone 50 BID #Hx of HFpEF; EF: 55%. Poorly compliant with meds. Cont home meds: Spironolactone 50 BID, Lasix 40 BID #CAD (s/p PCI/stents)/Non-ischemic cardiomyopathy; Cont home med: ASA 81, Labetolol 400 TID #Hx of CVA; Cont home meds: ASA 81, Plavix 75 #COPD; Stable. Cont home med: Symbicort, Ventolin inhaler. Will need pulm follow up as outpatient. #HLD; Cont home med: Atorvastatin 40 HS #NIDDM; Hold home oral DM meds. BGM/ISS ACHS. #Hx of Substance Abuse; Cocaine/Alcohol. Tobacco/Cocaine cessation counseling. #Prophylaxis DVT: SQH #FEN -no IVf -recheck lytes in AM -Diabetic/sodium diet Dispo -Admit to tele -COVID pending Visit type - Emergency Visit Emergency Visit: Yes ED Registration Date: 08/29/19 Care time: The patient presented to the Emergency Department on the above date and was hospitalized for further evaluation of their emergent condition. - New Patient This patient is new to me today: No - Critical Care Critical Care patient: No ATTENDING PHYSICIAN STATEMENT I saw and evaluated the patient. I reviewed the resident's note and discussed the case with the resident. I agree with the resident's findings and plan as documented. SUBJECTIVE: OBJECTIVE: ASSESSMENT AND PLAN:
[2019-08-29] MEDS ORDERED: ALBUTEROL SO4 HFA INHALER IH PRN (18:24)
[2019-08-29] MEDS: ALBUTEROL SO4 HFA INHALER IH PRN (21:30)
[2019-08-29] MEDS: hydrALAZINE HCL 50 MG TABLET (FP) PO SCH (22:02)
[2019-08-29] MEDS: ATORVASTATIN CA 40 MG TABLET (FP) PO SCH (22:03)
[2019-08-29] MEDS: SPIRONOLACTONE 25 MG TABLET PO SCH (22:03)
[2019-08-29] MEDS: ASPIRIN COATED 81 MG TABLET.EC PO SCH (22:03)
[2019-08-29] MEDS: LABETALOL HCL 200 MG TABLET (FP) PO SCH (22:03)
[2019-08-29] MEDS: BUDESONIDE/FORMETEROL FUMARATE 80/4.5 mcg INHALER IH SCH (22:04)
[2019-08-29] MEDS: INSULIN SLIDING SCALE (NOVOLOG) 1 VIAL SQ SCH (22:04)
[2019-08-30 01:39] VITALS: BMI 32.5
[2019-08-30] MEDS: hydrALAZINE HCL 50 MG TABLET (FP) PO SCH ×3 (06:10→21:45)
[2019-08-30] MEDS: FUROSEMIDE 40 MG TABLET (FP) PO SCH ×2 (06:10→15:20)
[2019-08-30] MEDS: HEPARIN NA (PORCINE) 5,000 UNITS/ML 1ML VIAL SQ SCH ×3 (06:10→21:44)
[2019-08-30] MEDS: LABETALOL HCL 200 MG TABLET (FP) PO SCH ×3 (06:10→21:45)
[2019-08-30] MEDS: INSULIN SLIDING SCALE (NOVOLOG) 1 VIAL SQ SCH ×4 (06:11→21:45)
[2019-08-30] MEDS: ALBUTEROL SO4 HFA INHALER IH PRN (06:14)
[2019-08-30 06:51] LABS: EOS % 1.8 % (0-4.5); HEMATOCRIT 34.5 % (35.4-49); HEMOGLOBIN 10.9 GM/dL (11.7-16.9); LYMPH % 14.9 % (8-40); MCH 30.9 pg (25.7-33.7); MCHC 31.6 g/dl (32.0-35.9); MEAN CELL VOLUME 97.7 fl (80-96); MEAN PLT VOLUME 7.8 fl (7.5-11.1); MONO % 7.7 % (3.8-10.2); NEUT % 74.6 % (42.8-82.8); PLATELET COUNT 290 K/MM3 (134-434); RBC 3.53 M/mm3 (4.00-5.60); RDW 15.2 % (11.9-15.9); WHITE BLOOD COUNT 9.1 K/mm3 (4.0-10.0)
[2019-08-30 07:19] LABS: BILIRUBIN,TOTAL 0.5 mg/dL (0.2-1); BLOOD UREA NITROGEN 27.2 mg/dL (7-18); CREATININE 1.6 mg/dL (0.55-1.3); MAGNESIUM 2.4 mg/dL (1.8-2.4); PHOSPHOROUS 4.1 mg/dL (2.5-4.9); POTASSIUM 4.6 mmol/L (3.5-5.1)
[2019-08-30 07:20] LABS: TOT PROT 7.1 g/dl (6.4-8.2)
--- NOTE | 2019-08-30 08:09 | PN ---
Physical Exam: SUBJECTIVE: Patient seen and examined Patient reports he feels much better than last night. Reports that he is better able to breath. Patient denies chest pressure/pain, headache, or SOB. OBJECTIVE: Vital Signs Period Temp Pulse Resp BP Sys/Caal Pulse Ox Last 24 Hr 97.8 F-98.3 F 81-104 18-26 144-191/94-126 94-99 GENERAL: The patient is awake, alert, and fully oriented, in no acute distress. HEAD: Normal with no signs of trauma. EYES: PERRL, extraocular movements intact, sclera anicteric, conjunctiva clear. No ptosis. LUNGS: Bilateral crackles at the bases HEART: Regular rate and rhythm, S1, S2 without murmur, rub or gallop. ABDOMEN: Soft, nontender, nondistended, normoactive bowel sounds, no guarding, no rebound, no hepatosplenomegaly, no masses. EXTREMITIES: 2+ edema bilateral LE PSYCH: Normal mood, normal affect. SKIN: Warm, dry, normal turgor, no rashes or lesions noted Laboratory Results - last 24 hr 08/29/19 08/29/19 08/29/19 07:42 07:42 07:42 WBC 10.5 H RBC 3.54 L Hgb 11.1 L Hct 34.4 L MCV 97.2 H MCH 31.3 MCHC 32.2 RDW 15.1 D Plt Count 326 MPV 7.4 L Absolute Neuts (auto) 8.3 H Neutrophils % 79.4 Lymphocytes % 12.4 Monocytes % 5.9 Eosinophils % 1.6 Basophils % 0.7 Nucleated RBC % 0 PT with INR 12.20 INR 1.03 D-Dimer Sodium 138 Potassium 4.6 Chloride 109 H Carbon Dioxide 22 Anion Gap 7 L BUN 22.5 H Creatinine 1.7 H Est GFR (CKD-EPI)AfAm 50.40 Est GFR (CKD-EPI)NonAf 43.49 POC Glucometer Random Glucose 151 H Calcium 8.8 Phosphorus Magnesium Total Bilirubin 0.5 AST 27 ALT 34 Alkaline Phosphatase 154 H Creatine Kinase 115 Troponin I 0.02 B-Natriuretic Peptide 3880.2 H Total Protein 7.2 Albumin 3.2 L 08/29/19 08/29/19 08/29/19 07:42 09:06 16:43 WBC RBC Hgb Hct MCV MCH MCHC RDW Plt Count MPV Absolute Neuts (auto) Neutrophils % Lymphocytes % Monocytes % Eosinophils % Basophils % Nucleated RBC % PT with INR INR D-Dimer 1166 H Sodium Potassium Chloride Carbon Dioxide Anion Gap BUN Creatinine Est GFR (CKD-EPI)AfAm Est GFR (CKD-EPI)NonAf POC Glucometer 158 224 Random Glucose Calcium Phosphorus Magnesium Total Bilirubin AST ALT Alkaline Phosphatase Creatine Kinase Troponin I B-Natriuretic Peptide Total Protein Albumin 08/29/19 08/29/19 08/30/19 21:09 22:02 05:50 WBC 9.1 RBC 3.53 L Hgb 10.9 L Hct 34.5 L MCV 97.7 H MCH 30.9 MCHC 31.6 L RDW 15.2 Plt Count 290 MPV 7.8 Absolute Neuts (auto) 6.8 Neutrophils % 74.6 Lymphocytes % 14.9 D Monocytes % 7.7 Eosinophils % 1.8 Basophils % 1.0 Nucleated RBC % 0 PT with INR INR D-Dimer Sodium Potassium Chloride Carbon Dioxide Anion Gap BUN Creatinine Est GFR (CKD-EPI)AfAm Est GFR (CKD-EPI)NonAf POC Glucometer 172 Random Glucose Calcium Phosphorus Magnesium Total Bilirubin AST ALT Alkaline Phosphatase Creatine Kinase Troponin I 0.02 B-Natriuretic Peptide Total Protein Albumin 08/30/19 05:50 WBC RBC Hgb Hct MCV MCH MCHC RDW Plt Count MPV Absolute Neuts (auto) Neutrophils % Lymphocytes % Monocytes % Eosinophils % Basophils % Nucleated RBC % PT with INR INR D-Dimer Sodium 134 L Potassium 4.6 Chloride 106 Carbon Dioxide 18 L Anion Gap 10 BUN 27.2 H Creatinine 1.6 H Est GFR (CKD-EPI)AfAm 54.23 Est GFR (CKD-EPI)NonAf 46.79 POC Glucometer Random Glucose 214 H Calcium 9.0 Phosphorus 4.1 Magnesium 2.4 Total Bilirubin 0.5 AST 26 ALT 34 Alkaline Phosphatase 171 H Creatine Kinase Troponin I B-Natriuretic Peptide Total Protein 7.1 Albumin 3.0 L Active Medications Generic Name Dose Route Start Last Admin Trade Name Freq PRN Reason Stop Dose Admin Albuterol Sulfate 2 puff 08/29/19 18:17 08/30/19 06:14 Ventolin Hfa Inhaler - IH 2 puff Q4H PRN Administration ASTHMA Albuterol Sulfate 1 puff 08/29/19 18:24 08/30/19 00:12 Ventolin Hfa Inhaler - IH 1 puff Q4H PRN Administration ASTHMA Aspirin 81 mg 08/29/19 18:30 08/29/19 22:03 Ecotrin - PO 81 mg DAILY [facility] Administration Atorvastatin Calcium 40 mg 08/29/19 22:00 08/29/19 22:03 Lipitor - PO 40 mg HS [facility] Administration Budesonide/Formoterol Fumarate 1 puff 08/29/19 22:00 08/29/19 22:04 Symbicort 80/4.5mcg - IH 1 puff BID [facility] Administration Clopidogrel Bisulfate 75 mg 08/30/19 10:00 Plavix - PO DAILY [facility] Ergocalciferol 50,000 unit 09/02/19 10:00 Drisdol - PO Fr@1000 [facility] Furosemide 40 mg 08/30/19 06:00 08/30/19 06:10 Lasix - PO 40 mg BIDLASIX [facility] Administration Heparin Sodium (Porcine) 5,000 unit 08/29/19 14:00 08/30/19 06:10 Heparin - SQ 5,000 unit TID [facility] Administration Hydralazine HCl 100 mg 08/29/19 22:00 08/30/19 06:10 Apresoline - PO 100 mg TID [facility] Administration Insulin Aspart 1 vial 08/29/19 22:00 08/30/19 06:11 Novolog Vial Sliding Scale - SQ 2 units ACHS [facility] Administration Protocol Labetalol HCl 400 mg 08/29/19 22:00 08/30/19 06:10 Normodyne - PO 400 mg TID [facility] Administration Nifedipine 120 mg 08/30/19 10:00 Procardia Xl - PO DAILY [facility] Spironolactone 50 mg 08/29/19 22:00 08/29/19 22:03 Aldactone - PO 50 mg BID [facility] Administration Tamsulosin HCl 0.4 mg 08/30/19 08:30 Flomax - PO DAILY@0830 [facility] ASSESSMENT/PLAN: Patient is a 59 M w a PMHx of CKD III, asthma, COPD, CAD s/p PCI stent, [place] x3, HFpEF 55%, cocaine and alcohol abuse in the past, AAA 3.9cm, COVID + in May 2019 is admitted for exertion and positional chest pressure. Patient reported not being able to refil his blood pressure medications and was not compliant with his medication regimen. 1. HTN urgency - 100mg hydralizine given at 6 am - Labetalol 400mg at 6 am - 40mg PO lasix given at 6 am - BP rechecked at 3am - 129/85- down from 174/111 from 6 am this morning - Holding Labetolol 400mg - Continuing Lasix 40mg - continuing hydralizine 100mg - will recheck BP 2. Possible covid re-infection (patient was diagnosed with COVID-19 virus on 05/2019 - CTA of chest and thorax reveals - ground glass opacification and small bilateral pleural effusions - D-Dimer - 1166 - results are suggestive of covid infection - follow up D-Dimer ordered - CRP ordered - Ferritin ordered -LDH ordered 3. HFpEF 55% - Continue home medications for blood pressure - [id number] BID - Lasix 40mgBID 4. CAD s/p PCI - Continue ASA 81 - Labetalol 400 TID 5. HLD - Atorvastatin 40 before bed 6. COPD - Follow up outpatient pulmonology - Symbicort - ventolin 7. DVT px - Lovenox SQ 8. FEN - Follow up with CBC/electrolytes - sodium/diabetic controlled diet 9. Dispo - COVID 19 FRACISCO specimen leaked in transit - ordered a retest ATTENDING PHYSICIAN STATEMENT I saw and evaluated the patient. I reviewed the resident's note and discussed the case with the resident. I agree with the resident's findings and plan as documented. SUBJECTIVE: OBJECTIVE: ASSESSMENT AND PLAN:
[2019-08-30] MEDS: CLOPIDOGREL BISULFATE 75 MG TABLET (FP) PO SCH (09:17)
[2019-08-30] MEDS: ASPIRIN COATED 81 MG TABLET.EC PO SCH (09:17)
[2019-08-30] MEDS: TAMSULOSIN HCL 0.4 MG CAP PO SCH (09:17)
[2019-08-30] MEDS: SPIRONOLACTONE 25 MG TABLET PO SCH ×2 (09:17→21:44)
[2019-08-30] MEDS: NIFEdipine E.R 60 MG TABLET PO SCH (09:17)
[2019-08-30] MEDS: BUDESONIDE/FORMETEROL FUMARATE 80/4.5 mcg INHALER IH SCH ×2 (09:18→21:39)
--- NOTE | 2019-08-30 14:29 | PN ---
Teaching Attending Note Name of Resident: Roshan Steven ATTENDING PHYSICIAN STATEMENT I saw and evaluated the patient. I reviewed the resident's note and discussed the case with the resident. I agree with the resident's findings and plan as documented. SUBJECTIVE: Seen and examined at bedside. Patient's blood pressure elevated this morning, improved after morning meds. Reports breathing is improved. Initial COVID test needs to be repeated as sample was contaminated. States chest pressure improved. OBJECTIVE: Last Vital Signs Temp Pulse Resp BP Pulse Ox 97.6 F 81 20 134/97 99 08/30/19 09:01 08/30/19 09:01 08/30/19 09:01 08/30/19 09:01 08/29/19 22:00 PE: Per resident note Labs/Imaging: reviewed ASSESSMENT AND PLAN: 59M well-known to the hospital w/ PMHx. of CKD(Stage III), asthma, COPD, CVA (no residual deficits), CAD( s/p [place] x 3, s/p PCI/stents), Non-ischemic cardiomyopath y, HTN, HLD, DM2, HFpEF( EF: 55%), Polysubstance Abuse(Cocaine and EtOH), AAA(3.9 cm), covid+ 06/20 presenting w sudden onset severe exertional/positional chest pressure, SOB, white productive cough and hypertensive urgency. #Hypertensive Urgency; improving -continue hydralazine, labetalol, nefidipine, aldactone -lasix 40mg bid #Chest pain in setting of medication non-compliance, known CAD s/p IA/PCI/stent, hypertensive cardiovascular disease, diastolic CHF, medication non-compliance; -PE ruled out -trop negative x2, cont to trend -EKG showed sinus tach, HR 108, QTc 485 ms, L atrial enlargement; unchanged from previous EKG -CTA neg for PE, diffuse GGO, small b/l pleural effusions, cardiomegaly, mediastinal LAD; no change since 05/12/19 #Hx of HFpEF; Mildly hypervolemic Cont home meds: Spironolactone 50 BID, Lasix 40 BID #CAD (s/p PCI/stents)/Non-ischemic cardiomyopathy; -cont home asa/statin #COPD; Stable. Cont home med: Symbicort, Ventolin inhaler. Will need pulm follow up as outpatient. #HLD; -cont home statin #NIDDM; Hold home oral DM meds. BGM/ISS ACHS. #Hx of Substance Abuse; Cocaine/Alcohol. Tobacco/Cocaine cessation counseling. #Prophylaxis DVT: SQ #Dispo: pending clinical course/covid test
[2019-08-30] MEDS ORDERED: LABETALOL HCL 100 MG TABLET (FP) ONE (14:58)
[2019-08-30] MEDS ORDERED: FUROSEMIDE 40 MG/4 ML INJECTABLE VIAL IVPUSH ONE (18:37)
[2019-08-30] MEDS: ATORVASTATIN CA 40 MG TABLET (FP) PO SCH (21:44)
[2019-08-31] MEDS: LABETALOL HCL 200 MG TABLET (FP) PO SCH ×3 (05:36→21:49)
[2019-08-31] MEDS: hydrALAZINE HCL 50 MG TABLET (FP) PO SCH ×3 (05:37→21:49)
[2019-08-31] MEDS: HEPARIN NA (PORCINE) 5,000 UNITS/ML 1ML VIAL SQ SCH ×3 (05:37→21:49)
[2019-08-31] MEDS: FUROSEMIDE 40 MG TABLET (FP) PO SCH ×2 (05:37→15:06)
[2019-08-31] MEDS: INSULIN SLIDING SCALE (NOVOLOG) 1 VIAL SQ SCH ×4 (06:27→21:50)
[2019-08-31 07:20] LABS: HEMATOCRIT 32.4 % (35.4-49); HEMOGLOBIN 10.3 GM/dL (11.7-16.9); MCH 30.7 pg (25.7-33.7); MCHC 31.9 g/dl (32.0-35.9); MEAN CELL VOLUME 96.5 fl (80-96); MEAN PLT VOLUME 7.6 fl (7.5-11.1); PLATELET COUNT 298 K/MM3 (134-434); RBC 3.36 M/mm3 (4.00-5.60); RDW 15.2 % (11.9-15.9); WHITE BLOOD COUNT 9.4 K/mm3 (4.0-10.0)
[2019-08-31 07:54] LABS: ALBUMIN 2.8 g/dl (3.4-5.0); BILIRUBIN,TOTAL 0.9 mg/dL (0.2-1); BLOOD UREA NITROGEN 20.9 mg/dL (7-18); CALCIUM 8.7 mg/dL (8.5-10.1); CREATININE 1.5 mg/dL (0.55-1.3); TOT PROT 6.8 g/dl (6.4-8.2)
[2019-08-31] MEDS: TAMSULOSIN HCL 0.4 MG CAP PO SCH (08:28)
[2019-08-31] MEDS: SPIRONOLACTONE 25 MG TABLET PO SCH ×2 (10:41→21:49)
[2019-08-31] MEDS: BUDESONIDE/FORMETEROL FUMARATE 80/4.5 mcg INHALER IH SCH ×2 (10:42→21:50)
[2019-08-31] MEDS: NIFEdipine E.R 60 MG TABLET PO SCH (10:42)
[2019-08-31] MEDS: CLOPIDOGREL BISULFATE 75 MG TABLET (FP) PO SCH (10:42)
[2019-08-31] MEDS: ASPIRIN COATED 81 MG TABLET.EC PO SCH (10:42)
--- NOTE | 2019-08-31 11:59 | PN ---
Physical Exam: SUBJECTIVE: Patient seen and examined Patient endorses a mild cough. Otherwise patient has no further complaints OBJECTIVE: Vital Signs Period Temp Pulse Resp BP Sys/Caal Pulse Ox Last 24 Hr 97.6 F-98.6 F 83-91 20-20 130-152/77-107 96 GENERAL: The patient is awake, alert, and fully oriented, in no acute distress. HEAD: Normal with no signs of trauma. EYES: PERRL, extraocular movements intact, sclera anicteric, conjunctiva clear. No ptosis. ENT: Ears normal, nares patent, oropharynx clear without exudates, moist mucous membranes. NECK: Trachea midline, full range of motion, supple. LUNGS: bilateral crackles at lung bases HEART: Regular rate and rhythm, S1, S2 without murmur, rub or gallop. ABDOMEN: Soft, nontender, nondistended, normoactive bowel sounds, no guarding, no rebound, no hepatosplenomegaly, no masses. EXTREMITIES: 2+ pitting edema bilateral LE. NEUROLOGICAL: Cranial nerves II through XII grossly intact. Normal speech, gait not observed. PSYCH: Normal mood, normal affect. SKIN: Warm, dry, normal turgor, no rashes or lesions noted Laboratory Results - last 24 hr 08/29/19 08/30/19 08/30/19 10:00 15:00 15:00 WBC RBC Hgb Hct MCV MCH MCHC RDW Plt Count MPV D-Dimer Sodium Potassium Chloride Carbon Dioxide Anion Gap BUN Creatinine Est GFR (CKD-EPI)AfAm Est GFR (CKD-EPI)NonAf POC Glucometer Random Glucose Calcium Ferritin Total Bilirubin AST ALT Alkaline Phosphatase LD Total Troponin I < 0.02 C-Reactive Protein 5.5 H Total Protein Albumin COVID-19 (FRACISCO) TNP 08/30/19 08/30/19 08/30/19 15:00 15:00 16:50 WBC RBC Hgb Hct MCV MCH MCHC RDW Plt Count MPV D-Dimer 931 H Sodium Potassium Chloride Carbon Dioxide Anion Gap BUN Creatinine Est GFR (CKD-EPI)AfAm Est GFR (CKD-EPI)NonAf POC Glucometer 166 Random Glucose Calcium Ferritin 187.9 Total Bilirubin AST ALT Alkaline Phosphatase LD Total 172 Troponin I C-Reactive Protein Total Protein Albumin COVID-19 (FRACISCO) 08/30/19 08/31/19 08/31/19 21:41 06:25 06:26 WBC 9.4 RBC 3.36 L Hgb 10.3 L Hct 32.4 L MCV 96.5 H MCH 30.7 MCHC 31.9 L RDW 15.2 Plt Count 298 MPV 7.6 D-Dimer Sodium Potassium Chloride Carbon Dioxide Anion Gap BUN Creatinine Est GFR (CKD-EPI)AfAm Est GFR (CKD-EPI)NonAf POC Glucometer 176 217 Random Glucose Calcium Ferritin Total Bilirubin AST ALT Alkaline Phosphatase LD Total Troponin I C-Reactive Protein Total Protein Albumin COVID-19 (FRACISCO) 08/31/19 06:26 WBC RBC Hgb Hct MCV MCH MCHC RDW Plt Count MPV D-Dimer Sodium 138 Potassium 4.0 Chloride 106 Carbon Dioxide 23 Anion Gap 8 BUN 20.9 H Creatinine 1.5 H Est GFR (CKD-EPI)AfAm 58.63 Est GFR (CKD-EPI)NonAf 50.59 POC Glucometer Random Glucose 202 H Calcium 8.7 Ferritin Total Bilirubin 0.9 AST 26 ALT 36 Alkaline Phosphatase 166 H LD Total Troponin I C-Reactive Protein Total Protein 6.8 Albumin 2.8 L COVID-19 (FRACISCO) Active Medications Generic Name Dose Route Start Last Admin Trade Name Freq PRN Reason Stop Dose Admin Albuterol Sulfate 2 puff 08/29/19 18:17 08/30/19 06:14 Ventolin Hfa Inhaler - IH 2 puff Q4H PRN Administration ASTHMA Albuterol Sulfate 1 puff 08/29/19 18:24 08/30/19 00:12 Ventolin Hfa Inhaler - IH 1 puff Q4H PRN Administration ASTHMA Aspirin 81 mg 08/29/19 18:30 08/31/19 10:42 Ecotrin - PO 81 mg DAILY PUSHPA Administration Atorvastatin Calcium 40 mg 08/29/19 22:00 08/30/19 21:44 Lipitor - PO 40 mg HS PUSHPA Administration Budesonide/Formoterol Fumarate 1 puff 08/29/19 22:00 08/31/19 10:42 Symbicort 80/4.5mcg - IH 1 puff BID PUSHPA Administration Clopidogrel Bisulfate 75 mg 08/30/19 10:00 08/31/19 10:42 Plavix - PO 75 mg DAILY PUSHPA Administration Ergocalciferol 50,000 unit 09/02/19 10:00 Drisdol - PO Fr@1000 PUSHPA Furosemide 40 mg 08/30/19 06:00 08/31/19 05:37 Lasix - PO 40 mg BIDLASIX PUSHPA Administration Heparin Sodium (Porcine) 5,000 unit 08/29/19 14:00 08/31/19 05:37 Heparin - SQ 5,000 unit TID PUSHPA Administration Hydralazine HCl 100 mg 08/29/19 22:00 08/31/19 05:37 Apresoline - PO 100 mg TID PUSHPA Administration Insulin Aspart 1 vial 08/29/19 22:00 08/31/19 11:57 Novolog Vial Sliding Scale - SQ 2 units ACHS PUSHPA Administration Protocol Labetalol HCl 400 mg 08/29/19 22:00 08/31/19 05:36 Normodyne - PO 400 mg TID PUSHPA Administration Nifedipine 120 mg 08/30/19 10:00 08/31/19 10:42 Procardia Xl - PO 120 mg DAILY PUSHPA Administration Spironolactone 50 mg 08/29/19 22:00 08/31/19 10:41 Aldactone - PO 50 mg BID PUSHPA Administration Tamsulosin HCl 0.4 mg 08/30/19 08:30 08/31/19 08:28 Flomax - PO 0.4 mg DAILY@0830 PUSHPA Administration ASSESSMENT/PLAN: 59M frequently admitted to [facility] w PMHx. of COPD, CAD s/p [place] x 3, s/p PCI/stents, Non-ischemic cardiomyopathy, HTN, HLD, DM2, HFpEF( EF: 55%), Polysubstance Abuse(Cocaine and EtOH), AAA(3.9 cm), covid+ 4/28, CKD(Stage III), asthma presenting w sudden onset severe exertional/positional chest pressure, SOB, white productive sputum and cough and hypertensive urgency 170s/100s on admission. #Hypertensive Urgency - routine BP show goal BP -continue home BP medication -lasix 40mg bid #Hx of HFpEF; - EF of 55% - continuing Lasix 40 BID PO - monitor I/O - Daily weights - Monitor BP #COPD; - No current exacerbation - patient satting well on 2L NC - SYmbicort and ventolin inhaler - pulm outpatient Stable #HLD; -cont home statin #Hx of Substance Abuse; Cocaine/Alcohol. Tobacco/Cocaine cessation counseling. #Prophylaxis DVT: [facility] ATTENDING PHYSICIAN STATEMENT I saw and evaluated the patient. I reviewed the resident's note and discussed the case with the resident. I agree with the resident's findings and plan as documented. SUBJECTIVE: OBJECTIVE: ASSESSMENT AND PLAN:
[2019-08-31] MEDS ORDERED: FUROSEMIDE 40 MG/4 ML INJECTABLE VIAL IVPUSH ONE (12:15)
--- NOTE | 2019-08-31 13:20 | PN ---
Teaching Attending Note Name of Resident: Roshan Steven ATTENDING PHYSICIAN STATEMENT I saw and evaluated the patient. I reviewed the resident's note and discussed the case with the resident. I agree with the resident's findings and plan as documented. SUBJECTIVE: Seen and examined at bedside. Patient reports chest pressure worsened over night. Blood pressure mildly elevated but better controlled than before. Slightly fluid overloaded, will increase Lasix. Cardiology consulted to evaluate for possible cath OBJECTIVE: Last Vital Signs Temp Pulse Resp BP Pulse Ox 98.5 F 85 20 154/96 96 08/31/19 13:18 08/31/19 13:18 08/31/19 13:18 08/31/19 13:18 08/30/19 21:00 PE: Per resident note Labs/Imaging: reviewed ASSESSMENT AND PLAN: 59M well-known to the hospital w/ PMHx. of CKD(Stage III), asthma, COPD, CVA (no residual deficits), CAD( s/p [place] x 3, s/p PCI/stents), Non-ischemic card iomyopathy, HTN, HLD, DM2, HFpEF( EF: 55%), Polysubstance Abuse(Cocaine and EtOH), AAA(3.9 cm), covid+ 06/20 presenting w sudden onset severe exertional/positional chest pressure, SOB, white productive cough and hypertensive urgency. #Hypertensive Urgency; improving -continue hydralazine, labetalol, nefidipine, aldactone -lasix 40mg bid #Chest pain in setting of medication non-compliance, known CAD s/p NJ/PCI/stent, hypertensive cardiovascular disease, diastolic CHF, medication non-compliance; -given extensive hx and recent admission for similar, will consult cardiology to evaluate for possible cardiac cath. -PE ruled out -trop negative x2, cont to trend -EKG showed sinus tach, HR 108, QTc 485 ms, L atrial enlargement; unchanged from previous EKG -CTA neg for PE, diffuse GGO, small b/l pleural effusions, cardiomegaly, mediastinal LAD; no change since 05/12/19 #Hx of HFpEF; Mildly hypervolemic Cont home meds: Spironolactone 50 BID, Lasix 40 BID #CAD (s/p PCI/stents)/Non-ischemic cardiomyopathy; -cont home asa/statin #COPD; Stable. Cont home med: Symbicort, Ventolin inhaler. Will need pulm follow up as outpatient. #HLD; -cont home statin #NIDDM; Hold home oral DM meds. BGM/ISS ACHS. #Hx of Substance Abuse; Cocaine/Alcohol. Tobacco/Cocaine cessation counseling. #Prophylaxis DVT: SQ #Dispo: pending clinical course/covid test
--- NOTE | 2019-08-31 16:41 | CON.CARD ---
Consult Consult Specialty:: Cardiology Referred by:: Hospitalist Medicine Reason for Consultation:: Recurrent HTN urgency, diastolic heart failure - History of Present Illness Chief Complaint: Chest pain, dyspnea History of Present Illness: Pt. is a 59 y.o. M w/ PMHx. of CKD(Stage III), asthma, CVA (no residual deficits), CAD( s/p SD x 3, s/p PCI/stents), Non-ischemic cardiomyopathy, HTN, HLD, DM2, HFpEF( EF: 55 %), Polysubstance Abuse(Cocaine and ), COPD, Polysubstance Abuse(Cocaine and EtOH), AAA(3.9 cm), covid+ 06/20, carotis stenosis s/p CEA presented w/ sudden onset severe exertional/positional (worse lying down) braulio chest pressure, SOB, mild epigastric white productive cough which woke him up from sleep at 530a this morning. Took his nifedipine, only, symptoms slightly improved. Endorsed drinking 1 can of beer yesterday, no recent cocaine. Didn't take aspirin or prescribed lasix, labetalol, or spironolactone for past 6d bc he ran out. Doesn't follow up with cardiology, doesn't remember who is his doctor. Last seen on 07/13 for HTN, CVA workup which was negative. He is non compliant with his meds, and ends up at the hospital with htn emergency, was given Given 325 aspirin, 200 labetalolx2, pepcid, maalox, nitrox1, albuterol, tylenol, chest pressure and dyspnea relieved with improved [employer] control, receiving diuresis. - History Source History Provided By: Patient Limitations to Obtaining History: No Limitations - Past Medical History Cardio/Vascular: Yes: CAD (S/P PCI), HTN, Hyperlipdemia, SD, Other (dilated cardiomyopathy (nonischemic), LV systolic dysfunction, ) Pulmonary: Yes: Asthma, Bronchitis, Pneumonia Gastrointestinal: Yes: GERD Renal/: Yes: Renal Inusuff Musculoskeletal: Yes: Chronic low back pain Additional Medical History: Rightt achilles tendon tear. Rightt testicular torsion. Angioedema due to ACEI - Past Surgical History Past Surgical History: Yes: AAA Repair, Carotid Endarterectomy (right) - Alcohol/Substance Use Hx Alcohol Use: No Number of Drinks Daily: 3 (beer) History of Substance Use: reports: Cocaine - Smoking History Smoking history: Current every day smoker Have you smoked in the past 12 months: Yes Aproximately how many cigarettes per day: 1 If you are a former smoker, when did you quit?: smokes 2 x per week - Social History Usual Living Arrangement: Alone ADL: Independent Occupation: No working. On disability History of Recent Travel: No Home Medications - Allergies Allergies/Adverse Reactions: Allergies Allergy/AdvReac Type Severity Reaction Status Date / Time IRMA Inhibitors Allergy Verified 08/29/19 07:14 - Home Medications Home Medications: Ambulatory Orders Aspirin Coated [Ecotrin -] 81 mg PO DAILY #30 tablet.ec 05/16/19 Budesonide/Formeterol Fumarate [SYMBICORT 80/4.5mcg -] 1 inh PO BID #1 cannister 05/16/19 Hydralazine HCl 100 mg PO TID #90 tablet 05/16/19 Labetalol HCl [Normodyne -] 400 mg PO TID #90 tablet 05/16/19 Nifedipine ER [Procardia XL -] 120 mg PO DAILY #60 tab.er.24 05/16/19 Tamsulosin HCl [Flomax -] 0.4 mg PO DAILY@0830 #30 cap.er.24h 05/16/19 Ergocalciferol (Vitamin D2) [Vitamin D2] 50,000 unit PO FR 06/21/19 Fluticasone Propionate [Flovent Hfa] 2 puff IH BID 06/21/19 Albuterol 2.5/Ipratropium 0.5 [Duoneb -] 1 amp NEB TID PRN #10 amp 06/23/19 Clopidogrel Bisulfate [Plavix] 75 mg PO DAILY 07/11/19 Atorvastatin Ca [Lipitor] 40 mg PO HS #30 tablet 07/14/19 Spironolactone [Aldactone -] 50 mg PO BID #60 tablet 07/14/19 Albuterol Sulfate Inhaler - [Ventolin HFA Inhaler -] 1 - 2 inh PO Q4H PRN 08/29/19 Furosemide [Lasix -] 40 mg PO BID 08/29/19 Glipizide Xl [Glucotrol Xl -] 2.5 mg PO DAILY 08/29/19 Metformin HCl [Glucophage] 1,000 mg PO BID 08/29/19 Review of Systems - Review of Systems Cardiovascular: reports: Chest Pain, Shortness of Breath Respiratory: reports: Orthopnea, SOB Vital Signs: Vital Signs Temperature 98.5 F 08/31/19 13:18 Pulse Rate 87 08/31/19 15:05 Respiratory Rate 19 08/31/19 15:05 Blood Pressure 129/89 08/31/19 15:05 O2 Sat by Pulse Oximetry (%) 97 08/31/19 09:00 Constitutional: Yes: No Distress, Calm Neck: Yes: Supple Respiratory: Yes: Regular, Diminished, On Nasal O2 Gastrointestinal: Yes: Normal Bowel Sounds, Soft Cardiovascular: Yes: Regular Rate and Rhythm JVD: No Carotid Bruit: No Heart Sounds: Yes: S1, S2 Edema: No - Other Data Labs, Other Data: CBC, BMP 08/31/19 06:26 08/31/19 06:26 INR, PTT INR 1.03 (0.83-1.09) 08/29/19 07:42 ST @ 108 LVH, LAE Ejection Fraction %: LVEF > or = 40 % Imaging - Results Cat Scan: Report Reviewed (Chest CTA: No PE, diffuse groundglass opacification, small bilateral effusion) Problem List - Problems (1) Hypertensive urgency Code(s): I16.0 - HYPERTENSIVE URGENCY (2) CAD (coronary artery disease) Code(s): I25.10 - ATHSCL HEART DISEASE OF [place] CORONARY ARTERY W/O ANG PCTRS Qualifiers: Coronary Disease-Associated Artery/Lesion type: unspecified vessel or lesion type [place] vs. transplanted heart: [place] heart Associated angina: angina presence unspecified Qualified Code(s): I25.10 - Atherosclerotic heart disease of [place] coronary artery without angina pectoris (3) CHF (congestive heart failure) Code(s): I50.9 - HEART FAILURE, UNSPECIFIED Qualifiers: Heart failure type: diastolic Heart failure chronicity: chronic Qualified Code(s): I50.32 - Chronic diastolic (congestive) heart failure (4) CKD (chronic kidney disease) stage 3, GFR 30-59 ml/min Code(s): N18.3 - CHRONIC KIDNEY DISEASE, STAGE 3 (MODERATE) (5) Cerebrovascular disease Code(s): I67.9 - CEREBROVASCULAR DISEASE, UNSPECIFIED (6) Diabetic nephropathy associated with type 2 diabetes mellitus Code(s): E11.21 - TYPE 2 DIABETES MELLITUS WITH DIABETIC NEPHROPATHY (7) Diastolic CHF Code(s): I50.30 - UNSPECIFIED DIASTOLIC (CONGESTIVE) HEART FAILURE Qualifiers: Heart failure chronicity: chronic Qualified Code(s): I50.32 - Chronic diastolic (congestive) heart failure (8) History of myocardial infarction Code(s): I25.2 - OLD MYOCARDIAL INFARCTION (9) Hyperlipidemia Code(s): E78.5 - HYPERLIPIDEMIA, UNSPECIFIED Qualifiers: Hyperlipidemia type: pure hypercholesterolemia Qualified Code(s): E78.00 - Pure hypercholesterolemia, unspecified (10) Polysubstance (excluding opioids) dependence Code(s): F19.20 - OTHER PSYCHOACTIVE SUBSTANCE DEPENDENCE, UNCOMPLICATED (11) Acute on chronic diastolic (congestive) heart failure Code(s): I50.33 - ACUTE ON CHRONIC DIASTOLIC (CONGESTIVE) HEART FAILURE Assessment/Plan 08/30/[address]: No PE, diffuse groundglass opacification, small bilateral effusions similar to previous 05/12/2019 01/03/2019 Echo: Mildly dilated, mild cLVH, low normal LVEF 50-55%, normal RV fxn, mild SHAHANA, mod-severe MR, mild-mod TR RVSP 58 mmHg, mild AR, IN 12/02/2018 Mri of brain: No acute stroke, old right posterior temporal cortical infarct 12/02/2018 Carotid ultrasound should left moderate stenosis and vacular surgery consult pending 12/02/2018 Echo: Normal LV size and fxn with mod cLVH, normal RV size and fxn, mild SHAHANA, mild MR, TR, AR 12/01/2018 Ct head right 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 Chest pain syndrome in a patient with known history of coronary artery disease post SD/PCI/stent angina pectoris, no evidence of acute coronary syndrome 2. Acute on chronic diastolic heart failure 3. Recent COVID diagnosis 4. History of COPD with intermittent acute exacerbations 5. Hypertensive cardiovascular disease, not at goal poor compliance with therapy administration 6. Type 2 DM c/b peripheral neuropathy 7. Hypercholesterolemia 8. History of cerebro-vascular disease 9. History of carotid stenosis post right CEA 10. History of abdominal aortic aneurysm/4.3 cm infra-renal with mural thrombus 11. CKD Stage III 12. Anemia 13. History of polysubstance abuse (ETOH and Cocaine) 14. History of angioedema related to ACEI therapy 15. AAA(3.9 cm) PLAN: 1. Ruled out SD and PE, continue Furosemide 40 bid and Spironolactone 50 bid with close monitoring of diuretic response, renal function and electrolytes 2. Continue Labetolol 400 tid 3. Continue Hydralazine 100 tid and Imdur 60 qd 4. Continue Procardia XL 120 qd (Counseled importance of compliance to therapy administration) 5. Continue ASA 81 qd and Plavix 75 qd 6. Continue Lipitor 80 qhs 7. Continue bronchodilators as per the primary team 8. Counselled substance abuse and smoking cessation, importance of medication compliance 9. Not ideal cardiac cath candidate due to continued noncompliance with meds and f/u 10. Thank you for consultative opportunity
[2019-08-31] MEDS: ATORVASTATIN CA 40 MG TABLET (FP) PO SCH (21:49)
[2019-09-01] MEDS: hydrALAZINE HCL 50 MG TABLET (FP) PO SCH ×2 (05:33→15:05)
[2019-09-01] MEDS: FUROSEMIDE 40 MG TABLET (FP) PO SCH ×2 (05:33→14:04)
[2019-09-01] MEDS: LABETALOL HCL 200 MG TABLET (FP) PO SCH ×2 (05:33→14:04)
[2019-09-01] MEDS: HEPARIN NA (PORCINE) 5,000 UNITS/ML 1ML VIAL SQ SCH ×2 (05:33→14:04)
[2019-09-01] MEDS: INSULIN SLIDING SCALE (NOVOLOG) 1 VIAL SQ SCH ×3 (06:48→17:25)
[2019-09-01 08:06] LABS: BASO % 0.6 % (0-2.0); EOS % 2.6 % (0-4.5); HEMATOCRIT 34.8 % (35.4-49); HEMOGLOBIN 11.2 GM/dL (11.7-16.9); LYMPH % 16.1 % (8-40); MCHC 32.1 g/dl (32.0-35.9); MEAN CELL VOLUME 96.5 fl (80-96); MEAN PLT VOLUME 7.7 fl (7.5-11.1); MONO % 8.8 % (3.8-10.2); NEUT % 71.9 % (42.8-82.8); PLATELET COUNT 333 K/MM3 (134-434); RBC 3.61 M/mm3 (4.00-5.60); RDW 14.9 % (11.9-15.9); WHITE BLOOD COUNT 8.3 K/mm3 (4.0-10.0)
[2019-09-01 08:12] LABS: BLOOD UREA NITROGEN 20.9 mg/dL (7-18); CREATININE 1.5 mg/dL (0.55-1.3); POTASSIUM 3.9 mmol/L (3.5-5.1)
[2019-09-01] MEDS: TAMSULOSIN HCL 0.4 MG CAP PO SCH (09:00)
[2019-09-01] MEDS: NIFEdipine E.R 60 MG TABLET PO SCH (09:27)
[2019-09-01] MEDS: ASPIRIN COATED 81 MG TABLET.EC PO SCH (09:27)
[2019-09-01] MEDS: SPIRONOLACTONE 25 MG TABLET PO SCH (09:27)
[2019-09-01] MEDS: CLOPIDOGREL BISULFATE 75 MG TABLET (FP) PO SCH (09:27)
[2019-09-01] MEDS: BUDESONIDE/FORMETEROL FUMARATE 80/4.5 mcg INHALER IH SCH (09:28)
--- NOTE | 2019-09-01 09:36 | PN ---
Progress Note, Physician History of Present Illness: Chest pressure and dyspnea relieved with improved BP control, receiving diuresis. - Current Medication List Current Medications: Active Medications Albuterol Sulfate (Ventolin Hfa Inhaler -) 2 puff IH Q4H PRN PRN Reason: ASTHMA Last Admin: 08/30/19 06:14 Dose: 2 puff Documented by: Albuterol Sulfate (Ventolin Hfa Inhaler -) 1 puff IH Q4H PRN PRN Reason: ASTHMA Last Admin: 08/30/19 00:12 Dose: 1 puff Documented by: Aspirin (Ecotrin -) 81 mg PO DAILY [facility] Last Admin: 09/01/19 09:27 Dose: 81 mg Documented by: Atorvastatin Calcium (Lipitor -) 40 mg PO HS [facility] Last Admin: 08/31/19 21:49 Dose: 40 mg Documented by: Budesonide/Formoterol Fumarate (Symbicort 80/4.5mcg -) 1 puff IH BID [facility] Last Admin: 09/01/19 09:28 Dose: 1 puff Documented by: Clopidogrel Bisulfate (Plavix -) 75 mg PO DAILY [facility] Last Admin: 09/01/19 09:27 Dose: 75 mg Documented by: Ergocalciferol (Drisdol -) 50,000 unit PO Fr@1000 [facility] Furosemide (Lasix -) 40 mg PO BIDLASIX [facility] Last Admin: 09/01/19 05:33 Dose: 40 mg Documented by: Heparin Sodium (Porcine) (Heparin -) 5,000 unit SQ TID [facility] Last Admin: 09/01/19 05:33 Dose: 5,000 unit Documented by: Hydralazine HCl (Apresoline -) 100 mg PO TID [facility] Last Admin: 09/01/19 05:33 Dose: 100 mg Documented by: Insulin Aspart (Novolog Vial Sliding Scale -) 1 vial SQ [facility]; Protocol Last Admin: 09/01/19 06:48 Dose: 4 units Documented by: Labetalol HCl (Normodyne -) 400 mg PO TID [facility] Last Admin: 09/01/19 05:33 Dose: 400 mg Documented by: Nifedipine (Procardia Xl -) 120 mg PO DAILY [facility] Last Admin: 09/01/19 09:27 Dose: 120 mg Documented by: Spironolactone (Aldactone -) 50 mg PO BID [facility] Last Admin: 09/01/19 09:27 Dose: 50 mg Documented by: Tamsulosin HCl (Flomax -) 0.4 mg PO DAILY@0830 [facility] Last Admin: 09/01/19 09:00 Dose: 0.4 mg Documented by: - Objective Vital Signs: Vital Signs Temperature 98.1 F 09/01/19 09:26 Pulse Rate 83 09/01/19 09:26 Respiratory Rate 19 09/01/19 09:26 Blood Pressure 149/94 09/01/19 09:26 O2 Sat by Pulse Oximetry (%) 95 08/31/19 21:00 Constitutional: Yes: No Distress, Calm Neck: Yes: Supple Cardiovascular: Yes: Regular Rate and Rhythm Respiratory: Yes: Regular, CTA Bilaterally Gastrointestinal: Yes: Normal Bowel Sounds, Soft Edema: No Labs: CBC, BMP 09/01/19 05:50 09/01/19 05:50 INR, PTT INR 1.03 (0.83-1.09) 08/29/19 07:42 - ....Imaging EKG: Report Reviewed (Tele: SR) Problem List - Problems (1) Hypertensive urgency Code(s): I16.0 - HYPERTENSIVE URGENCY (2) CAD (coronary artery disease) Code(s): I25.10 - ATHSCL HEART DISEASE OF [place] CORONARY ARTERY W/O ANG PCTRS Qualifiers: Coronary Disease-Associated Artery/Lesion type: unspecified vessel or lesion type [place] vs. transplanted heart: [place] heart Associated angina: angina presence unspecified Qualified Code(s): I25.10 - Atherosclerotic heart disease of [place] coronary artery without angina pectoris (3) CHF (congestive heart failure) Code(s): I50.9 - HEART FAILURE, UNSPECIFIED Qualifiers: Heart failure type: diastolic Heart failure chronicity: chronic Qualified Code(s): I50.32 - Chronic diastolic (congestive) heart failure (4) CKD (chronic kidney disease) stage 3, GFR 30-59 ml/min Code(s): N18.3 - CHRONIC KIDNEY DISEASE, STAGE 3 (MODERATE) (5) Cerebrovascular disease Code(s): I67.9 - CEREBROVASCULAR DISEASE, UNSPECIFIED (6) Diabetic nephropathy associated with type 2 diabetes mellitus Code(s): E11.21 - TYPE 2 DIABETES MELLITUS WITH DIABETIC NEPHROPATHY (7) Diastolic CHF Code(s): I50.30 - UNSPECIFIED DIASTOLIC (CONGESTIVE) HEART FAILURE Qualifiers: Heart failure chronicity: chronic Qualified Code(s): I50.32 - Chronic diastolic (congestive) heart failure (8) History of myocardial infarction Code(s): I25.2 - OLD MYOCARDIAL INFARCTION (9) Hyperlipidemia Code(s): E78.5 - HYPERLIPIDEMIA, UNSPECIFIED Qualifiers: Hyperlipidemia type: pure hypercholesterolemia Qualified Code(s): E78.00 - Pure hypercholesterolemia, unspecified (10) Polysubstance (excluding opioids) dependence Code(s): F19.20 - OTHER PSYCHOACTIVE SUBSTANCE DEPENDENCE, UNCOMPLICATED (11) Acute on chronic diastolic (congestive) heart failure Code(s): I50.33 - ACUTE ON CHRONIC DIASTOLIC (CONGESTIVE) HEART FAILURE Assessment/Plan 08/30/[address]: No PE, diffuse groundglass opacification, small bilateral effusions similar to previous 05/12/2019 01/03/2019 Echo: Mildly dilated, mild cLVH, low normal LVEF 50-55%, normal RV fxn, mild SHAHANA, mod-severe MR, mild-mod TR RVSP 58 mmHg, mild AR, MI 12/02/2018 Mri of brain: No acute stroke, old right posterior temporal cortical infarct 12/02/2018 Carotid ultrasound should left moderate stenosis and vacular surgery consult pending 12/02/2018 Echo: Normal LV size and fxn with mod cLVH, normal RV size and fxn, mild SHAHANA, mild MR, TR, AR 12/01/2018 Ct head right 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 Chest pain syndrome in a patient with known history of coronary artery disease post MA/PCI/stent angina pectoris, no evidence of acute coronary syndrome 2. Acute on chronic diastolic heart failure improved 3. Recent COVID 4. History of COPD with intermittent acute exacerbations 5. Hypertensive cardiovascular disease, not at goal poor compliance with therapy administration 6. Type 2 DM c/b peripheral neuropathy 7. Hypercholesterolemia 8. History of cerebro-vascular disease 9. History of carotid stenosis post right CEA 10. History of abdominal aortic aneurysm/4.3 cm infra-renal with mural thrombus 11. CKD Stage III 12. Anemia 13. History of polysubstance abuse (ETOH and Cocaine) 14. History of angioedema related to ACEI therapy 15. AAA(3.9 cm) PLAN: 1. Ruled out MA and PE, continue Furosemide 40 bid and Spironolactone 50 bid with close monitoring of diuretic response, renal function and electrolytes 2. Continue Labetolol 400 tid 3. Continue Hydralazine 100 tid and Imdur 60 qd 4. Continue Procardia XL 120 qd (Counseled importance of compliance to therapy administration) 5. Continue ASA 81 qd and Plavix 75 qd 6. Continue Lipitor 80 qhs 7. Continue bronchodilators as per the primary team 8. Counselled substance abuse and smoking cessation, importance of medication compliance 9. Not ideal cardiac cath candidate due to continued noncompliance with meds and f/u 10. D/c planning with recommended f/u in office
[2019-09-01 09:53] LABS: ANISOCYTOSIS 0; MACROCYTOSIS 0; PLATELET ESTIMATE NORMAL
--- NOTE | 2019-09-01 13:41 | PN ---
Physical Exam: SUBJECTIVE: Patient seen and examined Patient reports feeling "fluttering" in his chest overnight. Tele monitor reported 13 beats of vTac. Patient is otherwise comfortable and does not endorse any further complaints. OBJECTIVE: Vital Signs Period Temp Pulse Resp BP Sys/Caal Pulse Ox Last 24 Hr 98.1 F-98.6 F 80-87 19-20 129-161/82-101 95-99 GENERAL: The patient is awake, alert, and fully oriented, in no acute distress. HEAD: Normal with no signs of trauma. EYES: PERRL, extraocular movements intact, sclera anicteric, conjunctiva clear. No ptosis. ENT: Ears normal, nares patent, oropharynx clear without exudates, moist mucous membranes. NECK: Trachea midline, full range of motion, supple. LUNGS: Breath sounds equal, clear to auscultation bilaterally, no wheezes, no crackles, no accessory muscle use. HEART: Regular rate and rhythm, S1, S2 without murmur, rub or gallop. ABDOMEN: Soft, nontender, nondistended, normoactive bowel sounds, no guarding, no rebound, no hepatosplenomegaly, no masses. EXTREMITIES: 2+ pulses, warm, well-perfused, no edema. NEUROLOGICAL: Cranial nerves II through XII grossly intact. Normal speech, gait not observed. PSYCH: Normal mood, normal affect. SKIN: Warm, dry, normal turgor, no rashes or lesions noted Laboratory Results - last 24 hr 08/30/19 08/31/19 09/01/19 14:22 21:48 05:32 WBC RBC Hgb Hct MCV MCH MCHC RDW Plt Count MPV Absolute Neuts (auto) Neutrophils % Neutrophils % (Manual) Band Neutrophils % Lymphocytes % Lymphocytes % (Manual) Monocytes % Monocytes % (Manual) Eosinophils % Eosinophils % (Manual) Basophils % Basophils % (Manual) Myelocytes % (Man) Promyelocytes % (Man) Blast Cells % (Manual) Nucleated RBC % Metamyelocytes Hypochromia Platelet Estimate Poikilocytosis Anisocytosis Microcytosis Macrocytosis Sodium Potassium Chloride Carbon Dioxide Anion Gap BUN Creatinine Est GFR (CKD-EPI)AfAm Est GFR (CKD-EPI)NonAf POC Glucometer 159 218 Random Glucose Calcium COVID-19 ([facility]) Not detected 09/01/19 09/01/19 09/01/19 05:50 05:50 11:30 WBC 8.3 RBC 3.61 L Hgb 11.2 L Hct 34.8 L MCV 96.5 H MCH 31.0 MCHC 32.1 RDW 14.9 Plt Count 333 MPV 7.7 Absolute Neuts (auto) 6.0 Neutrophils % 71.9 Neutrophils % (Manual) 71.4 Band Neutrophils % 1.0 Lymphocytes % 16.1 Lymphocytes % (Manual) 18.4 D Monocytes % 8.8 Monocytes % (Manual) 7 D Eosinophils % 2.6 Eosinophils % (Manual) 2.0 D Basophils % 0.6 Basophils % (Manual) 0.0 Myelocytes % (Man) 0 Promyelocytes % (Man) 0 Blast Cells % (Manual) 0 Nucleated RBC % 0 Metamyelocytes 0 D Hypochromia 0 Platelet Estimate Normal Poikilocytosis 0 Anisocytosis 0 Microcytosis 0 Macrocytosis 0 Sodium 138 Potassium 3.9 Chloride 103 Carbon Dioxide 27 Anion Gap 9 BUN 20.9 H Creatinine 1.5 H Est GFR (CKD-EPI)AfAm 58.63 Est GFR (CKD-EPI)NonAf 50.59 POC Glucometer 184 Random Glucose 208 H Calcium 9.0 COVID-19 ([facility]) Active Medications Generic Name Dose Route Start Last Admin Trade Name Freq PRN Reason Stop Dose Admin Albuterol Sulfate 2 puff 08/29/19 18:17 08/30/19 06:14 Ventolin Hfa Inhaler - IH 2 puff Q4H PRN Administration ASTHMA Albuterol Sulfate 1 puff 08/29/19 18:24 08/30/19 00:12 Ventolin Hfa Inhaler - IH 1 puff Q4H PRN Administration ASTHMA Aspirin 81 mg 08/29/19 18:30 09/01/19 09:27 Ecotrin - PO 81 mg DAILY [facility] Administration Atorvastatin Calcium 40 mg 08/29/19 22:00 08/31/19 21:49 Lipitor - PO 40 mg HS [facility] Administration Budesonide/Formoterol Fumarate 1 puff 08/29/19 22:00 09/01/19 09:28 Symbicort 80/4.5mcg - IH 1 puff BID [facility] Administration Clopidogrel Bisulfate 75 mg 08/30/19 10:00 09/01/19 09:27 Plavix - PO 75 mg DAILY [facility] Administration Ergocalciferol 50,000 unit 09/02/19 10:00 Drisdol - PO Fr@1000 [facility] Furosemide 40 mg 08/30/19 06:00 09/01/19 05:33 Lasix - PO 40 mg BIDLASIX [facility] Administration Heparin Sodium (Porcine) 5,000 unit 08/29/19 14:00 09/01/19 05:33 Heparin - SQ 5,000 unit TID [facility] Administration Hydralazine HCl 100 mg 08/29/19 22:00 09/01/19 05:33 Apresoline - PO 100 mg TID [facility] Administration Insulin Aspart 1 vial 08/29/19 22:00 09/01/19 11:36 Novolog Vial Sliding Scale - SQ 2 units ACHS [facility] Administration Protocol Labetalol HCl 400 mg 08/29/19 22:00 09/01/19 05:33 Normodyne - PO 400 mg TID [facility] Administration Nifedipine 120 mg 08/30/19 10:00 09/01/19 09:27 Procardia Xl - PO 120 mg DAILY [facility] Administration Spironolactone 50 mg 08/29/19 22:00 09/01/19 09:27 Aldactone - PO 50 mg BID [facility] Administration Tamsulosin HCl 0.4 mg 08/30/19 08:30 09/01/19 09:00 Flomax - PO 0.4 mg DAILY@0830 [facility] Administration ASSESSMENT/PLAN: ATTENDING PHYSICIAN STATEMENT I saw and evaluated the patient. I reviewed the resident's note and discussed the case with the resident. I agree with the resident's findings and plan as documented. SUBJECTIVE: OBJECTIVE: ASSESSMENT AND PLAN:
--- NOTE | 2019-09-01 14:08 | CONSULT ---
Consult Consult Specialty:: Nephrology Reason for Consultation:: htn and ckd - History of Present Illness Chief Complaint: chest pain and shortness of breath History of Present Illness: Pt is a 59 year old male with pmhx of htn, ckd, asthma, copd, cva, cad, dm, cocaine use, AAA, and covid who presented with chest pain and shortness of breath. He was found to be hypertensive and admitted for further workup. 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 He denies history of CKD. He says that he is unaware of abnormal kidney function. He last saw his primary last years. He says he takes his meds only at night. He was using cocaine before he came to the [facility]. He also says that he ran out of his lasix and a few other meds. He denies dysuria or hematuria. He feels that his breathing is much improved. - History Source History Provided By: Patient, Medical Record - Past Medical History Cardio/Vascular: Yes: CAD (S/P PCI), HTN, Hyperlipdemia, [place], Other (dilated cardiomyopathy (nonischemic), LV systolic dysfunction, ) Pulmonary: Yes: Asthma, Bronchitis, Pneumonia Gastrointestinal: Yes: GERD Renal/: Yes: Renal Inusuff Musculoskeletal: Yes: Chronic low back pain Additional Medical History: Rightt achilles tendon tear. Rightt testicular tors ion. Angioedema due to ACEI - Past Surgical History Past Surgical History: Yes: AAA Repair, Carotid Endarterectomy (right) - Alcohol/Substance Use Hx Alcohol Use: No Number of Drinks Daily: 3 (beer) History of Substance Use: reports: Cocaine - Smoking History Smoking history: Current every day smoker Have you smoked in the past 12 months: Yes Aproximately how many cigarettes per day: 1 If you are a former smoker, when did you quit?: smokes 2 x per week - Social History Usual Living Arrangement: Alone ADL: Independent Occupation: No working. On disability History of Recent Travel: No Home Medications - Allergies Allergies/Adverse Reactions: Allergies Allergy/AdvReac Type Severity Reaction Status Date / Time YING Inhibitors Allergy Verified 08/29/19 07:14 - Home Medications Home Medications: Ambulatory Orders Aspirin Coated [Ecotrin -] 81 mg PO DAILY #30 tablet.ec 05/16/19 Budesonide/Formeterol Fumarate [SYMBICORT 80/4.5mcg -] 1 inh PO BID #1 cannister 05/16/19 Hydralazine HCl 100 mg PO TID #90 tablet 05/16/19 Labetalol HCl [Normodyne -] 400 mg PO TID #90 tablet 05/16/19 Nifedipine ER [Procardia XL -] 120 mg PO DAILY #60 tab.er.24 05/16/19 Tamsulosin HCl [Flomax -] 0.4 mg PO DAILY@0830 #30 cap.er.24h 05/16/19 Ergocalciferol (Vitamin D2) [Vitamin D2] 50,000 unit PO FR 06/21/19 Fluticasone Propionate [Flovent Hfa] 2 puff IH BID 06/21/19 Albuterol 2.5/Ipratropium 0.5 [Duoneb -] 1 amp NEB TID PRN #10 amp 06/23/19 Clopidogrel Bisulfate [Plavix] 75 mg PO DAILY 07/11/19 Atorvastatin Ca [Lipitor] 40 mg PO HS #30 tablet 07/14/19 Spironolactone [Aldactone -] 50 mg PO BID #60 tablet 07/14/19 Albuterol Sulfate Inhaler - [Ventolin HFA Inhaler -] 1 - 2 inh PO Q4H PRN 08/29/19 Furosemide [Lasix -] 40 mg PO BID 08/29/19 Glipizide Xl [Glucotrol Xl -] 2.5 mg PO DAILY 08/29/19 Metformin HCl [Glucophage] 1,000 mg PO BID 08/29/19 Family Medical History Family History: Denies Review of Systems - Review of Systems Eyes: reports: No Symptoms Neck: reports: No Symptoms Cardiovascular: reports: No Symptoms Respiratory: reports: No Symptoms Gastrointestinal: reports: No Symptoms Genitourinary: reports: No Symptoms Musculoskeletal: reports: No Symptoms Integumentary: reports: No Symptoms Neurological: reports: No Symptoms Endocrine: reports: No Symptoms Hematology/Lymphatic: reports: No Symptoms Psychiatric: reports: No Symptoms Physical Exam Vital Signs: Vital Signs Temperature 98.1 F 09/01/19 09:26 Pulse Rate 83 09/01/19 09:26 Respiratory Rate 19 09/01/19 09:26 Blood Pressure 149/94 09/01/19 09:26 O2 Sat by Pulse Oximetry (%) 99 09/01/19 09:00 Constitutional: Yes: Calm Eyes: Yes: Conjunctiva Clear HENT: Yes: Atraumatic Cardiovascular: Yes: S1, S2 Respiratory: Yes: CTA Bilaterally Gastrointestinal: Yes: Soft Musculoskeletal: Yes: WNL Edema: Yes Edema: LLE: Trace, RLE: Trace Neurological: Yes: Oriented Psychiatric: Yes: Oriented Labs: CBC, BMP 09/01/19 05:50 09/01/19 05:50 Selected Entries 08/31/19 08/31/19 08/31/19 15:05 18:00 21:30 Blood Pressure 129/89 129/82 151/98 09/01/19 09/01/19 09/01/19 02:02 06:00 09:26 Blood Pressure 159/101 H 161/100 149/94 Imaging - Results Cat Scan: Report Reviewed Problem List - Problems (1) Hypertensive urgency Code(s): I16.0 - HYPERTENSIVE URGENCY (2) AAA (abdominal aortic aneurysm) Code(s): I71.4 - ABDOMINAL AORTIC ANEURYSM, WITHOUT RUPTURE (3) CAD (coronary artery disease) Code(s): I25.10 - ATHSCL HEART DISEASE OF [place] CORONARY ARTERY W/O ANG PCTRS Qualifiers: Coronary Disease-Associated Artery/Lesion type: unspecified vessel or lesion type [place] vs. transplanted heart: [place] heart Associated angina: angina presence unspecified Qualified Code(s): I25.10 - Atherosclerotic heart disease of [place] coronary artery without angina pectoris (4) CHF (congestive heart failure) Code(s): I50.9 - HEART FAILURE, UNSPECIFIED Qualifiers: Heart failure type: diastolic Heart failure chronicity: chronic Qualified Code(s): I50.32 - Chronic diastolic (congestive) heart failure (5) CKD (chronic kidney disease) stage 3, GFR 30-59 ml/min Code(s): N18.3 - CHRONIC KIDNEY DISEASE, STAGE 3 (MODERATE) Assessment/Plan Current Medications Generic Name Dose Route Start Last Admin Trade Name Freq PRN Reason Stop Dose Admin Albuterol Sulfate 2 puff 08/29/19 18:17 08/30/19 06:14 Ventolin Hfa Inhaler - IH 2 puff Q4H PRN Administration ASTHMA Albuterol Sulfate 1 puff 08/29/19 18:24 08/30/19 00:12 Ventolin Hfa Inhaler - IH 1 puff Q4H PRN Administration ASTHMA Aspirin 81 mg 07/06/20 18:30 09/01/19 09:27 Ecotrin - PO 81 mg DAILY [facility] Administration Atorvastatin Calcium 40 mg 08/29/19 22:00 08/31/19 21:49 Lipitor - PO 40 mg HS [facility] Administration Budesonide/Formoterol Fumarate 1 puff 08/29/19 22:00 09/01/19 09:28 Symbicort 80/4.5mcg - IH 1 puff BID [facility] Administration Clopidogrel Bisulfate 75 mg 08/30/19 10:00 09/01/19 09:27 Plavix - PO 75 mg DAILY [facility] Administration Ergocalciferol 50,000 unit 09/02/19 10:00 Drisdol - PO Fr@1000 [facility] Furosemide 40 mg 08/30/19 06:00 09/01/19 14:04 Lasix - PO 40 mg BIDLASIX [facility] Administration Heparin Sodium (Porcine) 5,000 unit 08/29/19 14:00 09/01/19 14:04 Heparin - SQ 5,000 unit TID [facility] Administration Hydralazine HCl 100 mg 08/29/19 22:00 09/01/19 05:33 Apresoline - PO 100 mg TID [facility] Administration Insulin Aspart 1 vial 08/29/19 22:00 09/01/19 11:36 Novolog Vial Sliding Scale - SQ 2 units ACHS [facility] Administration Protocol Labetalol HCl 400 mg 08/29/19 22:00 09/01/19 14:04 Normodyne - PO 400 mg TID [facility] Administration Nifedipine 120 mg 08/30/19 10:00 09/01/19 09:27 Procardia Xl - PO 120 mg DAILY [facility] Administration Spironolactone 50 mg 08/29/19 22:00 09/01/19 09:27 Aldactone - PO 50 mg BID [facility] Administration Tamsulosin HCl 0.4 mg 08/30/19 08:30 09/01/19 09:00 Flomax - PO 0.4 mg DAILY@0830 [facility] Administration Laboratory Tests 08/30/19 14:22 COVID-19 ([facility]) Not detected Impression 1. HTN 2. CKD 3. cocain use 4. hx covid 5. non compliance 6. cad 7. hld 8. angioedema from ying 9. chest pain 10. pleural effusion Plan - bp is improving - renal function stable - will need outpt follow up - discussed with medical team - cont current meds - avoid nsaids - discussed cocain use with pt - 2 grams sodium diet - volume status improving
[2019-09-01 14:14] VITALS: TEMP 97.9
--- NOTE | 2019-09-01 14:20 | PN ---
Teaching Attending Note Name of Resident: Roshan Steven ATTENDING PHYSICIAN STATEMENT I saw and evaluated the patient. I reviewed the resident's note and discussed the case with the resident. I agree with the resident's findings and plan as documented. SUBJECTIVE: Seen and examined at bedside. Patient denies chest pain, shortness of breath, palpitations. Overnight patient states he had a "twinge" in his chest. Telemetry shows a short run of V. tach. Discussed with Livestock Trucker Dr. Ro: States that patient is currently on a beta-ar, has intact LV function, and does not require any further inpatient monitoring or work-up. Patient is medically cleared for discharge. OBJECTIVE: Last Vital Signs Temp Pulse Resp BP Pulse Ox 98.1 F 83 19 149/94 99 09/01/19 09:26 09/01/19 09:26 09/01/19 09:26 09/01/19 09:26 09/01/19 09:00 PE: Per resident note Labs/Imaging: reviewed ASSESSMENT AND PLAN: 59M well-known to the hospital w/ PMHx. of CKD(Stage III), asthma, COPD, CVA (no residual deficits), CAD( s/p ME x 3, s/p PCI/stents), Non-ischemic cardiomyopathy, HTN, HLD, DM2, HFpEF( EF: 55%), Polysubstance Abuse(Cocaine and EtOH), AAA(3.9 cm), covid+ 06/20 presenting w sudden onset severe exertional/positional chest pressure, SOB, white productive cough and hypertensive urgency. Patient was restarted with his home medications and given Lasix with improvement in his blood pressure and return to euvolemia. A CTA was negative for PE but showed Groundglass opacities, likely residual from his previous COVID infection in may. COVID PCR was negative.. Patient was strongly encouraged to be compliant with his medications and to discontinue cocaine use, as these are the likely reasons for his symptoms.
[2019-09-01 15:07] VITALS: BP 116/77; PULSE 85
--- NOTE | 2019-09-01 17:16 | DS ---
Physical Exam: SUBJECTIVE: Patient seen and examined Patient examined. No acute events overnight. OBJECTIVE: Vital Signs Period Temp Pulse Resp BP Sys/Caal Pulse Ox Last 24 Hr 97.9 F-98.6 F 80-90 18-20 116-161/77-101 95-99 PHYSICAL EXAM GENERAL: The patient is awake, alert, and fully oriented, in no acute distress. HEAD: Normal with no signs of trauma. EYES: PERRL, extraocular movements intact, sclera anicteric, conjunctiva clear. ENT: Ears normal, nares patent, oropharynx clear without exudates, moist mucous membranes. NECK: Trachea midline, full range of motion, supple. LUNGS: Breath sounds equal, clear to auscultation bilaterally, no wheezes, no crackles, no accessory muscle use. HEART: Regular rate and rhythm, S1, S2 without murmur, rub or gallop. ABDOMEN: Soft, nontender, nondistended, normoactive bowel sounds, no guarding, no rebound, no hepatosplenomegaly, no masses. EXTREMITIES: EDEMA RESOLVED NEUROLOGICAL: Cranial nerves II through XII grossly intact. Normal speech, gait not observed. PSYCH: Normal mood, normal affect. SKIN: Warm, dry, normal turgor, no rashes or lesions noted. LABS Laboratory Results - last 24 hr 08/30/19 08/31/19 09/01/19 14:22 21:48 05:32 WBC RBC Hgb Hct MCV MCH MCHC RDW Plt Count MPV Absolute Neuts (auto) Neutrophils % Neutrophils % (Manual) Band Neutrophils % Lymphocytes % Lymphocytes % (Manual) Monocytes % Monocytes % (Manual) Eosinophils % Eosinophils % (Manual) Basophils % Basophils % (Manual) Myelocytes % (Man) Promyelocytes % (Man) Blast Cells % (Manual) Nucleated RBC % Metamyelocytes Hypochromia Platelet Estimate Poikilocytosis Anisocytosis Microcytosis Macrocytosis Sodium Potassium Chloride Carbon Dioxide Anion Gap BUN Creatinine Est GFR (CKD-EPI)AfAm Est GFR (CKD-EPI)NonAf POC Glucometer 159 218 Random Glucose Calcium COVID-19 ([facility]) Not detected 09/01/19 09/01/19 09/01/19 05:50 05:50 11:30 WBC 8.3 RBC 3.61 L Hgb 11.2 L Hct 34.8 L MCV 96.5 H MCH 31.0 MCHC 32.1 RDW 14.9 Plt Count 333 MPV 7.7 Absolute Neuts (auto) 6.0 Neutrophils % 71.9 Neutrophils % (Manual) 71.4 Band Neutrophils % 1.0 Lymphocytes % 16.1 Lymphocytes % (Manual) 18.4 D Monocytes % 8.8 Monocytes % (Manual) 7 D Eosinophils % 2.6 Eosinophils % (Manual) 2.0 D Basophils % 0.6 Basophils % (Manual) 0.0 Myelocytes % (Man) 0 Promyelocytes % (Man) 0 Blast Cells % (Manual) 0 Nucleated RBC % 0 Metamyelocytes 0 D Hypochromia 0 Platelet Estimate Normal Poikilocytosis 0 Anisocytosis 0 Microcytosis 0 Macrocytosis 0 Sodium 138 Potassium 3.9 Chloride 103 Carbon Dioxide 27 Anion Gap 9 BUN 20.9 H Creatinine 1.5 H Est GFR (CKD-EPI)AfAm 58.63 Est GFR (CKD-EPI)NonAf 50.59 POC Glucometer 184 Random Glucose 208 H Calcium 9.0 COVID-19 ([facility]) HOSPITAL COURSE: Date of Admission:08/29/19 IMAGING: * CTA: 1. No evidence of pulmonary embolism * 2. diffuse groundglass opacification and small bilateral pleural effusions * 3. Cardiomegaly and mediastinal lymphadenopathy\ * 4. No significant change since 05/12/2019 * CXR: * 1. SINGLE VIEW of the chest shows a large heart, folded aorta, hilar prominence, and some minimal atelectatic change or scarring at [place]. An acute process is not seen Mr. Ernandez is a 59M with frequent visits to the hospital has a PMHx. of CKD(Stage III), asthma, COPD, CVA (no residual deficits), CAD( s/p NE x 3, s/p PCI/stents), Non-ischemic cardiomyopathy, HTN, HLD, DM2, HFpEF( EF: 55%), Ashutosh ysubstance Abuse(Cocaine and EtOH), AAA(3.9 cm), covid+ 06/20. Mr Ernandez presented to the emergency department with sudden onset of severe bilateral chest pressure, SOB and epigastric pain and a white productive cough. In the emergency department the patient had labs and electrolytes drawn showing no changes from prior visit back in june with negative trops and an elevated BNP. The patient recieved a chest CTA and CXR for his SOB and chest pain and tachycardia which showed no acute pathology. Patient was given ASA, labetalol and a trial GI cocktail for epigastric pain. Patient was monitored on telemetry for HTN urgency, chest pain to rule out ACS/ischemia. Pt's home meds were continued: hydralazine, labetalol, nefidipine, aldactone and lasix. The patient was evaluated by cardiology and nephrology Dr. Holloway and was deemed apt for discharge and follow up within 1 week to their office. The internal medicine team was able to have his medications filled out by [facility] and discharge the patient safely. Date of Discharge: 09/01/19 Minutes to complete discharge: 40 Discharge Summary Problems reviewed: Yes Reason For Visit: HYPERTENSIVE URGENCY CHEST PAIN Condition: Improved - Instructions Diet, Activity, Other Instructions: You were admitted for having chest pressure, SOB, white productive cough and high blood pressure. While you were here we evaluated you with lab work, blood work, imaging including x rays of your chest. We had our oven technician evaluate you and your symptoms were likely due to uncontrolled blood pressure. You were treated with IV lasix and your blood pressure returned to goal levels. You were also tested for COVID again and were negative. You have received a chest xray and chest ct scan that did not show any significant findings. You had high blood pressure when you came in and now it is stable. Your imaging findings showed a small pleural effusion. Please follow up with the primary care physician for this. MEDICATIONS: Please take your medications as prescribed Please ensure you are following adequate sodium controlled diet. Please refrain form recreational drugs, specifically cocaine due to the fact that cocaine cause worsening of your blood pressure and heart failure, leading to worsening of your chest pain. You should continue your home medications as prescribed. FOLLOW UPS: You should follow up with your primary care physician (Dr. Hernandez) in 1 week after you are discharged to check your blood pressure again. You should follow up with your oven technician (Dr. Ro) for your hypertension within 1 week Please follow up with the Office Services Associate Dr. Manrique within 1 week. Return to the ER if you have worsening of your current symptoms or: chest pain, shortness of breath, numbness, weakness in extremities. Referrals: Lenny Hernandez MD [Primary Care Provider] - 1 Week Ragini Holloway MD [Staff Physician] - 1 Week Nils Ro MD [Staff Physician] - 1 Week Disposition: HOME - Home Medications Comprehensive Discharge Medication List: Ambulatory Orders Fluticasone Propionate [Flovent Hfa] 2 puff IH BID 06/21/19 Albuterol 2.5/Ipratropium 0.5 [Duoneb -] 1 amp NEB TID PRN #10 amp 09/01/19 Albuterol Sulfate Inhaler - [Ventolin HFA Inhaler -] 1 - 2 inh PO Q4H PRN #2 inhaler 09/01/19 Aspirin Coated [Ecotrin -] 81 mg PO DAILY #30 tablet.ec 09/01/19 Atorvastatin Ca [Lipitor] 40 mg PO HS #30 tablet 09/01/19 Budesonide/Formeterol Fumarate [SYMBICORT 80/4.5mcg -] 1 inh PO BID #1 cannister 09/01/19 Clopidogrel Bisulfate [Plavix] 75 mg PO DAILY #30 tablet 09/01/19 Ergocalciferol (Vitamin D2) [Vitamin D2] 50,000 unit PO FR #30 cap 09/01/19 Furosemide [Lasix -] 40 mg PO BID #60 tablet 09/01/19 Glipizide Xl [Glucotrol Xl -] 2.5 mg PO DAILY #30 tab.sr 09/01/19 Hydralazine HCl 100 mg PO TID #90 tablet 09/01/19 Labetalol HCl [Normodyne -] 400 mg PO TID #90 tablet 09/01/19 Metformin HCl [Glucophage] 1,000 mg PO BID #60 tablet 09/01/19 Nifedipine ER [Procardia XL -] 120 mg PO DAILY #60 tab.er.24 09/01/19 Spironolactone [Aldactone -] 50 mg PO BID #60 tablet 09/01/19 Tamsulosin HCl [Flomax -] 0.4 mg PO DAILY@0830 #30 cap.er.24h 09/01/19 ATTENDING PHYSICIAN STATEMENT I saw and evaluated the patient. I reviewed the resident's note and discussed the case with the resident. I agree with the resident's findings and plan as documented. SUBJECTIVE: OBJECTIVE: ASSESSMENT AND PLAN:
[2019-09-02] MEDS ORDERED: ERGOCALCIFEROL (VIT D2) 50,000 UNIT (1.25 MG) CAPSULE PO SCH (10:00)
== END 2019-09-01 18:25 | disposition home or self-care (01) | DRG 199 ==
LOC: JER 06:53 → JERBED 12:59 → J4S 20:41
PROVIDERS: ADMIT Internal Medicine; ATTEND Internal Medicine
DX: I16.0 Hypertensive urgency (principal); I42.8 Other cardiomyopathies; I47.2 Ventricular tachycardia; E11.42 Type 2 diabetes mellitus with diabetic polyneuropathy; E11.21 Type 2 diabetes mellitus with diabetic nephropathy; J45.909 Unspecified asthma, uncomplicated; J44.9 Chronic obstructive pulmonary disease, unspecified; I50.33 Acute on chronic diastolic (congestive) heart failure; F10.10 Alcohol abuse, uncomplicated; F14.10 Cocaine abuse, uncomplicated; E78.5 Hyperlipidemia, unspecified; F17.210 Nicotine dependence, cigarettes, uncomplicated; I25.10 Atherosclerotic heart disease of native coronary artery without angina pectoris; I13.0 Hypertensive heart and chronic kidney disease with heart failure and stage 1 through stage 4 chronic kidney disease, or unspecified chronic kidney disease; N18.3 Chronic kidney disease, stage 3 (moderate); Z95.5 Presence of coronary angioplasty implant and graft; Z91.14 Patient's other noncompliance with medication regimen; D64.9 Anemia, unspecified; I71.4 Abdominal aortic aneurysm, without rupture; K21.9 Gastro-esophageal reflux disease without esophagitis; E66.9 Obesity, unspecified; Z68.32 Body mass index [BMI] 32.0-32.9, adult; R07.89 Other chest pain
CPT/HCPCS: 36415; 71045-TC-FY; 71275-TC; 80048; 80053; 82550; 82728; 82962; 83615; 83735; 83880; 84100; 84484; 85025; 85027; 85379; 85610; 86140; 93005; 93010; 99285-25; J1644; U0003

== ENCOUNTER 2019-10-20 19:22 | Inpatient (IN) | payer OTHER ==
[2019-10-20 19:35] VITALS: BMI 32.9
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
[2019-10-20 20:15] LABS: BASO % 0.6 % (0-2.0); EOS % 1.2 % (0-4.5); HEMATOCRIT 33.4 % (35.4-49); LYMPH % 13.1 % (8-40); MCH 31.6 pg (25.7-33.7); MEAN CELL VOLUME 95.8 fl (80-96); MEAN PLT VOLUME 6.9 fl (7.5-11.1); MONO % 8.7 % (3.8-10.2); NEUT % 76.4 % (42.8-82.8); PLATELET COUNT 373 K/MM3 (134-434); RBC 3.49 M/mm3 (4.00-5.60); RDW 15.1 % (11.9-15.9); WHITE BLOOD COUNT 10.7 K/mm3 (4.0-10.0)
[2019-10-20] MEDS ORDERED: NIFEdipine E.R. 90 MG TABLET PO ONE (20:16)
[2019-10-20] MEDS ORDERED: hydrALAZINE HCL 50 MG TABLET (FP) PO ONE (20:16)
[2019-10-20] MEDS ORDERED: LABETALOL HCL 200 MG TABLET (FP) PO ONE (20:18)
[2019-10-20 20:23] LABS: INR 0.97 (0.83-1.09); PROTHROMBIN TIME (PATIENT) 11.4 SEC (9.7-13.0)
[2019-10-20 20:26] LABS: ACTIVATED PTT 32.2 SECONDS (25.2-36.5)
[2019-10-20] MEDS ORDERED: ALBUTEROL SO4 HFA INHALER IH ONE (20:28)
[2019-10-20] MEDS ORDERED: ALBUTEROL SO4 2.5/IPRATROPIUM 0.5 INH SOL 3 ML VIAL.NEB. NEB ONE (20:42)
[2019-10-20 20:56] LABS: ALBUMIN 3.4 g/dl (3.4-5.0); BILIRUBIN,TOTAL 0.6 mg/dL (0.2-1); BLOOD UREA NITROGEN 26.1 mg/dL (7-18); CALCIUM 8.8 mg/dL (8.5-10.1); CREATININE 1.5 mg/dL (0.55-1.3); POTASSIUM 4.3 mmol/L (3.5-5.1); TOT PROT 7.4 g/dl (6.4-8.2)
[2019-10-20] MEDS ORDERED: FUROSEMIDE 40 MG/4 ML INJECTABLE VIAL IVPUSH ONE (20:58)
[2019-10-20] MEDS ORDERED: ACETAMINOPHEN 1000 MG/100 ML VIAL (NON FORMULARY) IVPB ONE (20:59)
[2019-10-20] MEDS: ALBUTEROL SO4 2.5/IPRATROPIUM 0.5 INH SOL 3 ML VIAL.NEB. NEB SCH (21:06)
[2019-10-20] MEDS ORDERED: FUROSEMIDE 40 MG/4 ML INJECTABLE VIAL ONE (21:14)
--- NOTE | 2019-10-20 22:15 | PDOC ---
Attending Attestation - Resident Resident Name: Pepito Martinez - ED Attending Attestation I have performed the following: I have examined & evaluated the patient, The case was reviewed & discussed with the resident, I agree w/resident's findings & plan, Exceptions are as noted - HPI HPI: 10/21/19 07:33 See resident HPI - Physicial Exam PE: 10/21/19 07:33 Agree with documented exam - Medical Decision Making 10/21/19 07:33 typical cp in high risk patient a/w significantly elevated BP, has not had home meds for several days f/u labs, ekg, cxr, trop, give home bp meds re-eval will need admission Discharge - Discharge Information Problems reviewed: Yes Clinical Impression/Diagnosis: Shortness of breath Chest pain Qualifiers: Chest pain type: unspecified Qualified Code(s): R07.9 - Chest pain, unspecified Condition: Stable - Follow up/Referral - Patient Discharge Instructions - Post Discharge Activity
--- NOTE | 2019-10-21 01:41 | PDOC ---
*Physical Exam - Vital Signs Last Vital Signs Temp Pulse Resp BP Pulse Ox 98.7 F 87 19 150/97 99 10/20/19 19:31 10/20/19 23:21 10/20/19 23:21 10/20/19 23:21 10/20/19 23:21 ED Treatment Course - LABORATORY CBC & Chemistry Diagram: 10/20/19 20:05 10/20/19 20:05 - ADDITIONAL ORDERS Additional order review: Laboratory Results 10/20/19 10/20/19 10/20/19 20:05 20:05 20:05 PT with INR 11.40 INR 0.97 PTT (Actin FS) 32.2 Sodium 142 Potassium 4.3 Chloride 111 H Carbon Dioxide 21 Anion Gap 10 BUN 26.1 H Creatinine 1.5 H Est GFR (CKD-EPI)AfAm 58.63 Est GFR (CKD-EPI)NonAf 50.59 Random Glucose 147 H Calcium 8.8 Total Bilirubin 0.6 AST 27 ALT 31 Alkaline Phosphatase 143 H Creatine Kinase 121 Troponin I 0.03 B-Natriuretic Peptide 5072.0 H Total Protein 7.4 Albumin 3.4 Lipase 76 10/20/19 20:05 RBC 3.49 L MCV 95.8 MCHC 33.0 RDW 15.1 MPV 6.9 L D Neutrophils % 76.4 Lymphocytes % 13.1 Monocytes % 8.7 Eosinophils % 1.2 Basophils % 0.6 - Medications Given in the ED: ED Medications Discontinued Medications Generic Name Dose Route Start Last Admin Trade Name Freq PRN Reason Stop Dose Admin Acetaminophen 1,000 mg 10/20/19 20:59 10/20/19 21:05 Ofirmev Injection - IVPB 10/20/19 21:00 1,000 mg ONCE ONE Administration Albuterol Sulfate 2 puff 10/20/19 20:28 10/20/19 20:41 Ventolin Hfa Inhaler - IH 10/20/19 20:29 Not Given ONCE ONE Albuterol/Ipratropium 1 amp 10/20/19 20:45 10/20/19 21:06 Duoneb - NEB 10/20/19 21:16 1 amp Q15M PUSHPA Administration Furosemide 40 mg 10/20/19 20:58 10/20/19 21:27 Lasix Injection - IVPUSH 10/20/19 20:59 40 mg ONCE ONE Administration Hydralazine HCl 100 mg 10/20/19 20:16 10/20/19 21:27 Apresoline - PO 10/20/19 20:17 100 mg ONCE ONE Administration Labetalol HCl 400 mg 10/20/19 20:18 10/20/19 21:27 Normodyne - PO 10/20/19 20:19 400 mg ONCE ONE Administration Nifedipine 120 mg 10/20/19 20:16 10/20/19 21:27 Procardia Xl - PO 10/20/19 20:17 120 mg ONCE ONE Administration Medical Decision Making - Medical Decision Making Patient has known history of CAD/HI, CHF, CKD, COPD, and AAA presenting with HTN and abdominal/chest/back/head pain, concerning for HTN emergency vs. ACS vs. COPD/CHF exacerbation vs. AAA rupture or aortic dissection. -CTA: No aortic dissection, but 3.7cm infrarenal saccular aortic aneurysm -Admit to tele obs Discharge - Discharge Information Problems reviewed: Yes Clinical Impression/Diagnosis: Shortness of breath Chest pain Qualifiers: Chest pain type: unspecified Qualified Code(s): R07.9 - Chest pain, unspecified Condition: Stable - Admission Yes - Follow up/Referral Referrals: Lenny Hernandez MD [Primary Care Provider] - - Patient Discharge Instructions - Post Discharge Activity
[2019-10-21] MEDS ORDERED: LIDOCAINE 5% TOPICAL PATCH TP ONE (03:11)
[2019-10-21] MEDS ORDERED: LIDOCAINE 5% TOPICAL PATCH ONE (03:12)
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
[2019-10-21] MEDS ORDERED: LORazepam 1 MG TABLET PO PRN (05:11)
[2019-10-21] MEDS ORDERED: chlordiazePOXIDE HCL 10 MG CAPSULE PO PRN (05:29)
[2019-10-21] MEDS ORDERED: [UNRECOGNIZED DRUG - OTHER] IVPB ONE (05:30)
[2019-10-21] MEDS ORDERED: SODIUM CHLORIDE IVPB ONE (05:30)
[2019-10-21] MEDS ORDERED: FOLIC ACID IVPB ONE (05:30)
[2019-10-21] MEDS ORDERED: THIAMINE HCL IVPB ONE (05:30)
[2019-10-21] MEDS ORDERED: FUROSEMIDE 40 MG TABLET (FP) PO SCH (06:00)
[2019-10-21] MEDS ORDERED: PATIENT'S OWN MEDICATION (NON-FORMULARY) (Hydralazine Hcl [Hydralazine Hcl] 100 MG) PO SCH (06:00)
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
[2019-10-21] MEDS ORDERED: FUROSEMIDE 40 MG TABLET (FP) ONE (06:20)
[2019-10-21] MEDS ORDERED: HEPARIN NA (PORCINE) 5,000 UNITS/ML 1ML VIAL ONE (06:21)
[2019-10-21] MEDS ORDERED: hydrALAZINE HCL 25 MG TABLET (FP) ONE (06:21)
[2019-10-21] MEDS ORDERED: LABETALOL HCL 100 MG TABLET (FP) ONE (06:21)
[2019-10-21] MEDS: LABETALOL HCL 200 MG TABLET (FP) PO SCH ×3 (06:34→21:33)
[2019-10-21] MEDS: HEPARIN NA (PORCINE) 5,000 UNITS/ML 1ML VIAL SQ SCH ×3 (06:34→21:34)
[2019-10-21] MEDS: hydrALAZINE HCL 50 MG TABLET (FP) PO SCH ×3 (06:34→21:32)
[2019-10-21 07:10] LABS: URINE APPEARANCE CLEAR; URINE BILIRUBIN NEGATIVE (NEGATIVE); URINE COLOR YELLOW; URINE GLUCOSE (UA) NEGATIVE (NEGATIVE); URINE KETONE NEGATIVE (NEGATIVE); URINE LEUK ESTERASE NEGATIVE (NEGATIVE); URINE NITRITE NEGATIVE (NEGATIVE); URINE PROTEIN TRACE (NEGATIVE); URINE UROBILINOGEN 0.2 mg/dL (0.2-1.0)
[2019-10-21 07:21] LABS: COCAINE, UR NEGATIVE ng/ml (CUTOFF=300); OPIATES, URI NEGATIVE ng/ml (CUTOFF=300); PHENCYCLIDINE,URINE NEGATIVE ng/ml (CUTOFF=25); URINE BARBITURATES NEGATIVE ng/ml (CUTOFF=200)
[2019-10-21] MEDS ORDERED: ALBUTEROL SO4 2.5/IPRATROPIUM 0.5 INH SOL 3 ML VIAL.NEB. NEB PRN ×2 (07:23→21:12)
[2019-10-21 07:42] LABS: METHADONE, UR NEGATIVE ng/ml (CUTOFF=300); URINE AMPHETAMINES NEGATIVE ng/ml (CUTOFF=500); URINE BENZODIAZEPINES NEGATIVE ng/ml (CUTOFF=200)
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
[2019-10-21] MEDS: INSULIN SLIDING SCALE (NOVOLOG) 1 VIAL SQ SCH ×4 (08:11→21:37)
[2019-10-21] MEDS ORDERED: NIFEdipine E.R. 30 MG TABLET ONE (09:26)
[2019-10-21] MEDS ORDERED: THIAMINE HCL 100 MG TABLET (FP) ONE (09:26)
[2019-10-21] MEDS ORDERED: ASPIRIN COATED 81 MG TABLET.EC ONE (09:26)
[2019-10-21] MEDS ORDERED: FOLIC ACID 1 MG TABLET (FP) ONE (09:27)
[2019-10-21] MEDS ORDERED: TAMSULOSIN HCL 0.4 MG CAP ONE (09:27)
[2019-10-21] MEDS ORDERED: CLOPIDOGREL BISULFATE 75 MG TABLET (FP) ONE (09:27)
[2019-10-21] MEDS ORDERED: SPIRONOLACTONE 25 MG TABLET ONE (09:27)
[2019-10-21] MEDS: TAMSULOSIN HCL 0.4 MG CAP PO SCH (09:38)
[2019-10-21] MEDS: FOLIC ACID 1 MG TABLET (FP) PO SCH (09:38)
[2019-10-21] MEDS: NIFEdipine E.R 60 MG TABLET PO SCH (09:38)
[2019-10-21] MEDS: CLOPIDOGREL BISULFATE 75 MG TABLET (FP) PO SCH (09:38)
[2019-10-21] MEDS: SPIRONOLACTONE 25 MG TABLET PO SCH ×2 (09:38→21:33)
[2019-10-21] MEDS: THIAMINE HCL 100 MG TABLET (FP) PO SCH (09:38)
[2019-10-21] MEDS: ASPIRIN COATED 81 MG TABLET.EC PO SCH (09:38)
[2019-10-21] MEDS: ACETAMINOPHEN 325 MG TABLET (FP) PO PRN ×2 (09:39→18:02)
[2019-10-21 09:55] LABS: BASO % 0.7 % (0-2.0); EOS % 1.2 % (0-4.5); HEMATOCRIT 32.8 % (35.4-49); HEMOGLOBIN 10.7 GM/dL (11.7-16.9); LYMPH % 9.1 % (8-40); MCH 31.7 pg (25.7-33.7); MCHC 32.7 g/dl (32.0-35.9); MEAN CELL VOLUME 96.9 fl (80-96); MONO % 7.8 % (3.8-10.2); NEUT % 81.2 % (42.8-82.8); PLATELET COUNT 345 K/MM3 (134-434); RBC 3.39 M/mm3 (4.00-5.60); RDW 15.2 % (11.9-15.9); WHITE BLOOD COUNT 9.6 K/mm3 (4.0-10.0)
[2019-10-21 10:01] LABS: INR 0.99 (0.83-1.09); PROTHROMBIN TIME (PATIENT) 11.7 SEC (9.7-13.0)
[2019-10-21 10:03] LABS: ACTIVATED PTT 31.3 SECONDS (25.2-36.5)
[2019-10-21] MEDS: FUROSEMIDE 40 MG/4 ML INJECTABLE VIAL IVPUSH SCH (10:06)
[2019-10-21] MEDS: NICOTINE 7 MG/24 HOURS TOPICAL PATCH TD SCH (10:07)
[2019-10-21] MEDS: BUDESONIDE/FORMETEROL FUMARATE 80/4.5 mcg INHALER IH SCH ×2 (10:07→21:33)
[2019-10-21 10:40] LABS: ALBUMIN 3.1 g/dl (3.4-5.0); BILIRUBIN,TOTAL 0.6 mg/dL (0.2-1); BLOOD UREA NITROGEN 19.6 mg/dL (7-18); CALCIUM 8.7 mg/dL (8.5-10.1); CREATININE 1.4 mg/dL (0.55-1.3); MAGNESIUM 2.2 mg/dL (1.8-2.4); PHOSPHOROUS 3.8 mg/dL (2.5-4.9); POTASSIUM 3.6 mmol/L (3.5-5.1)
[2019-10-21] MEDS ORDERED: LORazepam 2 MG TABLET PO SCH (11:00)
[2019-10-21] MEDS: chlordiazePOXIDE HCL 25 MG CAPSULE PO SCH ×2 (13:52→21:38)
--- NOTE | 2019-10-21 14:56 | EKG ---
Test Reason : Blood Pressure : / mmHG Vent. Rate : 112 BPM Atrial Rate : 112 BPM P-R Int : 172 ms QRS Dur : 096 ms QT Int : 346 ms P-R-T Axes : 069 033 064 degrees QTc Int : 472 ms SINUS TACHYCARDIA VOLTAGE CRITERIA FOR LEFT VENTRICULAR HYPERTROPHY NONSPECIFIC ST ABNORMALITY POSSIBLE LEFT ATRIAL ENLARGEMENT NONSPECIFIC ST AND T WAVE ABNORMALITY NONSPECIFIC INTRAVENTRICULAR CONDUCTION DEFECT ABNORMAL ECG Confirmed by LETTY JESUS MD ([id number]) on 10/21/2019 2:55:49 PM Referred By: Confirmed By:LETTY JESUS MD
[2019-10-21] MEDS ORDERED: LIDOCAINE PATCH REMOVAL MC ONE (15:00)
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
[2019-10-21] MEDS ORDERED: ALBUTEROL SO4 HFA INHALER IH PRN (21:12)
[2019-10-21] MEDS: LIDOCAINE 5% TOPICAL PATCH TP SCH (21:32)
[2019-10-21] MEDS: ATORVASTATIN CA 40 MG TABLET (FP) PO SCH (21:33)
[2019-10-22] MEDS: ACETAMINOPHEN 325 MG TABLET (FP) PO PRN ×3 (04:51→21:35)
[2019-10-22] MEDS: chlordiazePOXIDE HCL 25 MG CAPSULE PO SCH (04:52)
[2019-10-22] MEDS: hydrALAZINE HCL 50 MG TABLET (FP) PO SCH ×3 (05:01→21:30)
[2019-10-22] MEDS: LABETALOL HCL 200 MG TABLET (FP) PO SCH ×3 (05:01→21:32)
[2019-10-22] MEDS: HEPARIN NA (PORCINE) 5,000 UNITS/ML 1ML VIAL SQ SCH ×3 (05:02→21:30)
[2019-10-22] MEDS: LIDOCAINE PATCH REMOVAL MC SCH (06:16)
[2019-10-22] MEDS: INSULIN SLIDING SCALE (NOVOLOG) 1 VIAL SQ SCH ×4 (06:18→22:44)
--- NOTE | 2019-10-22 06:23 | PN ---
Progress Note, Physician Chief Complaint: NO CP/SOB Enzymes negative x 2 History of Present Illness: Pt. is a 59 y.o. M w/ PMHx. of CKD(Stage III), asthma, CVA (no residual deficits), CAD( s/p WA x 3, s/p PCI/stents), Non-ischemic cardiomyopathy, HTN, HLD, DM2, HFpEF( EF: 55 %), Polysubstance Abuse(Cocaine and ), COPD, Polysubstance Abuse(Cocaine and EtOH), AAA(3.9 cm), covid+ 06/20, carotis stenosis s/p CEA presented chest pain. Ran out of medications, states [facility]. CTA done in ER: no PE, b/l groundlass opacities. Past Medical History Cardio/Vascular: Yes: CAD (S/P PCI), HTN, Hyperlipdemia, WA, Other (dilated cardiomyopathy (nonischemic), LV systolic dysfunction, ) Pulmonary: Yes: Asthma, Bronchitis, Pneumonia Gastrointestinal: Yes: GERD Renal/: Yes: Renal Inusuff Musculoskeletal: Yes: Chronic low back pain Additional Medical History: Rightt achilles tendon tear. Rightt testicular torsion. Angioedema due to ACEI - Current Medication List Current Medications: Active Medications Acetaminophen (Tylenol -) 650 mg PO Q6H PRN PRN Reason: PAIN LEVEL 1-5 Last Admin: 10/22/19 04:51 Dose: 650 mg Documented by: Albuterol Sulfate (Ventolin Hfa Inhaler -) 2 puff IH Q8H PRN PRN Reason: SHORT OF BREATH/WHEEZING Last Admin: 10/22/19 04:52 Dose: 2 puff Documented by: Albuterol/Ipratropium (Duoneb -) 1 amp NEB TID PRN PRN Reason: SHORT OF BREATH/WHEEZING Aspirin (Ecotrin -) 81 mg PO DAILY [facility] Last Admin: 10/21/19 09:38 Dose: 81 mg Documented by: Atorvastatin Calcium (Lipitor -) 40 mg PO HS [facility] Last Admin: 10/21/19 21:33 Dose: 40 mg Documented by: Budesonide/Formoterol Fumarate (Symbicort 80/4.5mcg -) 1 puff IH BID [facility] Last Admin: 10/21/19 21:33 Dose: 1 puff Documented by: Chlordiazepoxide HCl (Librium -) 25 mg PO Q8H [facility] Stop: 10/22/19 21:01 Last Admin: 10/22/19 04:52 Dose: 25 mg Documented by: Chlordiazepoxide HCl (Librium -) 10 mg PO Q12H PRN PRN Reason: Signs/symptoms of Withdrawal Stop: 10/24/19 23:59 Chlordiazepoxide HCl (Librium -) 10 mg PO Q8H PRN PRN Reason: Signs/symptoms of Withdrawal Stop: 10/23/19 23:59 Chlordiazepoxide HCl (Librium -) 15 mg PO Q8H [facility] Stop: 10/23/19 21:01 Chlordiazepoxide HCl (Librium -) 10 mg PO Q8H [facility] Stop: 10/24/19 21:01 Chlordiazepoxide HCl (Librium -) 10 mg PO ONCE ONE Stop: 10/25/19 05:01 Clopidogrel Bisulfate (Plavix -) 75 mg PO DAILY [facility] Last Admin: 10/21/19 09:38 Dose: 75 mg Documented by: Folic Acid (Folic Acid -) 1 mg PO DAILY [facility] Last Admin: 10/21/19 09:38 Dose: 1 mg Documented by: Furosemide (Lasix Injection -) 40 mg IVPUSH DAILY [facility] Last Admin: 10/21/19 10:06 Dose: 40 mg Documented by: Heparin Sodium (Porcine) (Heparin -) 5,000 unit SQ TID [facility] Last Admin: 10/22/19 05:02 Dose: 5,000 unit Documented by: Hydralazine HCl (Apresoline -) 100 mg PO TID [facility] Last Admin: 10/22/19 05:01 Dose: 100 mg Documented by: Insulin Aspart (Novolog Vial Sliding Scale -) 1 vial SQ [facility]; Protocol Last Admin: 10/22/19 06:18 Dose: 2 units Documented by: Labetalol HCl (Normodyne -) 400 mg PO TID [facility] Last Admin: 10/22/19 05:01 Dose: 400 mg Documented by: Lidocaine (Lidoderm Patch -) 1 patch TP DAILY@1900 [facility] Last Admin: 10/21/19 21:32 Dose: 1 patch Documented by: Miscellaneous (Lidoderm Patch Removal) 1 each MC DAILY@0700 [facility] Last Admin: 10/22/19 06:16 Dose: Not Given Documented by: Nicotine (Nicoderm Patch -) 7 mg TD DAILY [facility] Last Admin: 10/21/19 10:07 Dose: Not Given Documented by: Nifedipine (Procardia Xl -) 120 mg PO DAILY [facility] Last Admin: 10/21/19 09:38 Dose: 120 mg Documented by: Spironolactone (Aldactone -) 50 mg PO BID [facility] Last Admin: 10/21/19 21:33 Dose: 50 mg Documented by: Tamsulosin HCl (Flomax -) 0.4 mg PO DAILY@0830 [facility] Last Admin: 10/21/19 09:38 Dose: 0.4 mg Documented by: Thiamine HCl (Vitamin B1 -) 100 mg PO DAILY [facility] Last Admin: 10/21/19 09:38 Dose: 100 mg Documented by: - Objective Vital Signs: Vital Signs Temperature 98.4 F 10/22/19 05:00 Pulse Rate 88 10/22/19 05:00 Respiratory Rate 20 10/22/19 05:00 Blood Pressure 160/84 10/22/19 05:00 O2 Sat by Pulse Oximetry (%) 96 10/22/19 05:00 Constitutional: Yes: No Distress, Calm Cardiovascular: Yes: Regular Rate and Rhythm Respiratory: Yes: CTA Bilaterally (no rales today) Gastrointestinal: Yes: Soft (nt) Edema: No Neurological: Yes: Alert, Oriented ...Motor Strength: WNL Labs: CBC, BMP 10/21/19 09:28 10/21/19 09:28 INR, PTT INR 0.99 (0.83-1.09) 10/21/19 09:28 Laboratory Tests 10/20/19 10/20/19 10/21/19 20:05 20:05 06:50 WBC 10.7 H Hgb 11.0 L Plt Count 373 Sodium 142 Potassium 4.3 BUN 26.1 H Creatinine 1.5 H Creatine Kinase 121 Troponin I 0.03 B-Natriuretic Peptide 5072.0 H Opiates Screen Negative Methadone Screen Negative Barbiturate Screen Negative Phencyclidine Screen Negative Ur Amphetamines Screen Negative MDMA (Ecstasy) Screen Negative Benzodiazepines Screen Negative Cocaine Screen Negative U Marijuana (THC) Screen Negative COVID-19 (FRACISCO) 10/21/19 10/21/19 10/22/19 08:10 18:00 07:42 WBC 10.1 H Hgb 10.0 L Plt Count 321 Sodium Potassium BUN Creatinine Creatine Kinase Troponin I < 0.02 B-Natriuretic Peptide Opiates Screen Methadone Screen Barbiturate Screen Phencyclidine Screen Ur Amphetamines Screen MDMA (Ecstasy) Screen Benzodiazepines Screen Cocaine Screen U Marijuana (THC) Screen COVID-19 (FRACISCO) Pending 10/22/19 07:42 WBC Hgb Plt Count Sodium 139 Potassium 3.6 BUN Creatinine 1.3 Creatine Kinase Troponin I B-Natriuretic Peptide Opiates Screen Methadone Screen Barbiturate Screen Phencyclidine Screen Ur Amphetamines Screen MDMA (Ecstasy) Screen Benzodiazepines Screen Cocaine Screen U Marijuana (THC) Screen COVID-19 (FRACISCO) Assessment/Plan Assessment/Plan DATA: 10/20/2019: CTA: No PE, groundglass opacities, mediastinal adenopathy 08/30/[address]: No PE, diffuse groundglass opacification, small bilateral effusions similar to previous 05/12/2019 01/03/2019 Echo: Mildly dilated, mild cLVH, low normal LVEF 50-55%, normal RV fxn, mild SHAHANA, mod-severe MR, mild-mod TR RVSP 58 mmHg, mild AR, GA 12/02/2018 Mri of brain: No acute stroke, old right posterior temporal cortical infarct 12/02/2018 Carotid ultrasound should left moderate stenosis 12/02/2018 Echo: Normal LV size and fxn with mod cLVH, normal RV size and fxn, mild SHAHANA, mild MR, TR, AR 12/01/2018 Ct head right old posterior temoral lobe infarct identified 11/02/[address]: Bilateral min-mild upper and lower lung opacity c/w congestion, mild LAE, LV dilatation 04/13/2018 Echo: Normal LV size and fxn with mild cLVH, grade II diastolic dysfunction, mod LAE, mild MR, mild AR 10/27/2017 Echo: Mild cLVH, normal RV and LV size and fxn, mild-mod MR, mild AR 10/29/2017 Regadenoson stress: Large inferior, inferolateral and apical infarct without ischemia, LVEF 29% IMP: 1. Chest pain syndrome in a patient with known history of coronary artery d isease post WA/PCI/stent. Likely precipitated by uncontrolled HTN 2. Acute on chronic diastolic heart failure 3. Recent COVID diagnosis 4. History of COPD with intermittent acute exacerbations 5. Hypertensive heart disease, poorly compliant 6. Type 2 DM c/b peripheral neuropathy 7. Hypercholesterolemia 8. History of cerebro-vascular disease 9. History of carotid stenosis post right CEA 10. History of abdominal aortic aneurysm/4.3 cm infra-renal with mural thrombus 11. CKD Stage III 12. Anemia 13. History of polysubstance abuse (ETOH and Cocaine) 14. History of angioedema related to ACEI therapy 15. AAA(3.9 cm) PLAN: 1. Chest pain: CTA negative PE. -in setting uncontrolled HTN, now resolved -Cardiac enzymes negative x 2 sets -Continue home ASA 81mg daily; clarify timing of prior cardiac stents in order to determine need for Plavix 2. Acute on chronic diastolic CHF: BNP slightly higher now than previous admissions, likely triggered uncontrolled HTN -Lasix 40mg IV daily, daily BMP to monitor renal fx, daily weights 3. Recent COVID PNA: groundglass opacities on CT. -Check COVID status 4. COPD: -Smoking cessation, cont home regimen 5. HTN heart dz: ANGIOEDEMA TO IRMA-I -On prior admission in [facility] MEDS were as follows: -Labetolol 400 tid -Hydralazine 100 tid and Imdur 60 qd -Procardia XL 120 qd (Counseled importance of compliance to therapy administration) 6. DM: as per PMD 7. HLD: cont statin, LDL goal 70 8. Carotid disease: -ASA/Statin -Vascular f/u as outpt 9. AAA: -BP control/Beta blockade/smoking cessation -Vascular f/u 10: CKD: -Check daily BMP while on IV Lasix 11. Polysubstance abuse: -suggest social work assist pt with plan for rehab on discharge
[2019-10-22 08:43] LABS: BASO % 0.5 % (0-2.0); EOS % 2.2 % (0-4.5); HEMATOCRIT 31.2 % (35.4-49); LYMPH % 13.3 % (8-40); MCHC 32.1 g/dl (32.0-35.9); MEAN CELL VOLUME 96.6 fl (80-96); MEAN PLT VOLUME 7.3 fl (7.5-11.1); MONO % 7.2 % (3.8-10.2); NEUT % 76.8 % (42.8-82.8); PLATELET COUNT 321 K/MM3 (134-434); RBC 3.23 M/mm3 (4.00-5.60); RDW 15.2 % (11.9-15.9); WHITE BLOOD COUNT 10.1 K/mm3 (4.0-10.0)
[2019-10-22 09:11] LABS: ALBUMIN 2.8 g/dl (3.4-5.0); BILIRUBIN,TOTAL 0.9 mg/dL (0.2-1); BLOOD UREA NITROGEN 15.5 mg/dL (7-18); CALCIUM 8.6 mg/dL (8.5-10.1); CREATININE 1.3 mg/dL (0.55-1.3); MAGNESIUM 2.2 mg/dL (1.8-2.4); POTASSIUM 3.6 mmol/L (3.5-5.1); TOT PROT 6.5 g/dl (6.4-8.2)
[2019-10-22] MEDS ORDERED: PT OWN MED DRAWER 7, Y5N ONE (10:01)
[2019-10-22] MEDS: FOLIC ACID 1 MG TABLET (FP) PO SCH (10:10)
[2019-10-22] MEDS: FUROSEMIDE 40 MG/4 ML INJECTABLE VIAL IVPUSH SCH (10:10)
[2019-10-22] MEDS: TAMSULOSIN HCL 0.4 MG CAP PO SCH (10:10)
[2019-10-22] MEDS: CLOPIDOGREL BISULFATE 75 MG TABLET (FP) PO SCH (10:10)
[2019-10-22] MEDS: NIFEdipine E.R 60 MG TABLET PO SCH (10:10)
[2019-10-22] MEDS: SPIRONOLACTONE 25 MG TABLET PO SCH ×2 (10:10→21:31)
[2019-10-22] MEDS: ASPIRIN COATED 81 MG TABLET.EC PO SCH (10:11)
[2019-10-22] MEDS: THIAMINE HCL 100 MG TABLET (FP) PO SCH (10:11)
[2019-10-22] MEDS: NICOTINE 7 MG/24 HOURS TOPICAL PATCH TD SCH (10:11)
[2019-10-22] MEDS: BUDESONIDE/FORMETEROL FUMARATE 80/4.5 mcg INHALER IH SCH ×2 (10:13→21:33)
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
[2019-10-22] MEDS: ALBUTEROL SO4 2.5/IPRATROPIUM 0.5 INH SOL 3 ML VIAL.NEB. NEB PRN ×2 (16:49→21:30)
[2019-10-22] MEDS: LIDOCAINE 5% TOPICAL PATCH TP SCH (19:08)
[2019-10-22] MEDS: ATORVASTATIN CA 40 MG TABLET (FP) PO SCH (21:32)
[2019-10-23] MEDS ORDERED: LORazepam 1 MG TABLET PO SCH (05:00)
[2019-10-23] MEDS ORDERED: chlordiazePOXIDE 5 MG CAPSULE PO SCH (05:00)
[2019-10-23] MEDS: LABETALOL HCL 200 MG TABLET (FP) PO SCH ×3 (05:08→21:16)
[2019-10-23] MEDS: hydrALAZINE HCL 50 MG TABLET (FP) PO SCH ×3 (05:09→21:16)
[2019-10-23] MEDS: HEPARIN NA (PORCINE) 5,000 UNITS/ML 1ML VIAL SQ SCH ×3 (05:09→21:16)
[2019-10-23] MEDS: INSULIN SLIDING SCALE (NOVOLOG) 1 VIAL SQ SCH ×4 (06:53→21:17)
[2019-10-23 07:51] LABS: BASO % 0.8 % (0-2.0); EOS % 2.5 % (0-4.5); HEMATOCRIT 31.2 % (35.4-49); HEMOGLOBIN 10.1 GM/dL (11.7-16.9); LYMPH % 12.1 % (8-40); MCH 31.3 pg (25.7-33.7); MCHC 32.4 g/dl (32.0-35.9); MEAN CELL VOLUME 96.6 fl (80-96); MEAN PLT VOLUME 7.4 fl (7.5-11.1); MONO % 7.3 % (3.8-10.2); NEUT % 77.3 % (42.8-82.8); PLATELET COUNT 339 K/MM3 (134-434); RBC 3.23 M/mm3 (4.00-5.60); WHITE BLOOD COUNT 10.1 K/mm3 (4.0-10.0)
[2019-10-23] MEDS: ALBUTEROL SO4 2.5/IPRATROPIUM 0.5 INH SOL 3 ML VIAL.NEB. NEB PRN ×2 (07:58→16:28)
[2019-10-23 08:09] LABS: ALBUMIN 2.9 g/dl (3.4-5.0); BILIRUBIN,TOTAL 0.6 mg/dL (0.2-1); BLOOD UREA NITROGEN 19.6 mg/dL (7-18); CALCIUM 8.5 mg/dL (8.5-10.1); CREATININE 1.5 mg/dL (0.55-1.3); MAGNESIUM 2.1 mg/dL (1.8-2.4); TOT PROT 6.7 g/dl (6.4-8.2)
[2019-10-23] MEDS: SPIRONOLACTONE 25 MG TABLET PO SCH ×2 (09:27→21:16)
[2019-10-23] MEDS: NIFEdipine E.R 60 MG TABLET PO SCH (09:27)
[2019-10-23] MEDS: CLOPIDOGREL BISULFATE 75 MG TABLET (FP) PO SCH (09:27)
[2019-10-23] MEDS: FOLIC ACID 1 MG TABLET (FP) PO SCH (09:27)
[2019-10-23] MEDS: ACETAMINOPHEN 325 MG TABLET (FP) PO PRN ×2 (09:27→21:17)
[2019-10-23] MEDS: FUROSEMIDE 40 MG/4 ML INJECTABLE VIAL IVPUSH SCH (09:27)
[2019-10-23] MEDS: TAMSULOSIN HCL 0.4 MG CAP PO SCH (09:27)
[2019-10-23] MEDS: LIDOCAINE PATCH REMOVAL MC SCH (09:28)
[2019-10-23] MEDS: ASPIRIN COATED 81 MG TABLET.EC PO SCH (09:28)
[2019-10-23] MEDS: THIAMINE HCL 100 MG TABLET (FP) PO SCH (09:28)
[2019-10-23] MEDS: NICOTINE 7 MG/24 HOURS TOPICAL PATCH TD SCH (09:28)
[2019-10-23] MEDS: BUDESONIDE/FORMETEROL FUMARATE 80/4.5 mcg INHALER IH SCH ×2 (09:29→21:17)
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
[2019-10-23] MEDS ORDERED: FUROSEMIDE 20 MG TABLET (FP) PO SCH (14:00)
[2019-10-23] MEDS: LIDOCAINE 5% TOPICAL PATCH TP SCH (18:36)
[2019-10-23] MEDS: ATORVASTATIN CA 40 MG TABLET (FP) PO SCH (21:16)
[2019-10-24] MEDS ORDERED: LORazepam 0.5 MG TABLET PO PRN
[2019-10-24] MEDS ORDERED: chlordiazePOXIDE HCL 10 MG CAPSULE PO PRN
[2019-10-24] MEDS ORDERED: LORazepam 0.5 MG TABLET PO SCH (05:00)
[2019-10-24] MEDS ORDERED: chlordiazePOXIDE HCL 10 MG CAPSULE PO SCH (05:00)
[2019-10-24] MEDS: HEPARIN NA (PORCINE) 5,000 UNITS/ML 1ML VIAL SQ SCH ×2 (06:09→13:11)
[2019-10-24] MEDS: LIDOCAINE PATCH REMOVAL MC SCH (06:09)
[2019-10-24] MEDS: hydrALAZINE HCL 50 MG TABLET (FP) PO SCH ×2 (06:09→13:01)
[2019-10-24] MEDS: LABETALOL HCL 200 MG TABLET (FP) PO SCH ×2 (06:09→13:01)
[2019-10-24] MEDS: INSULIN SLIDING SCALE (NOVOLOG) 1 VIAL SQ SCH ×2 (06:10→11:27)
[2019-10-24] MEDS: ACETAMINOPHEN 325 MG TABLET (FP) PO PRN (06:10)
[2019-10-24 08:24] LABS: BASO % 0.9 % (0-2.0); EOS % 2.7 % (0-4.5); HEMATOCRIT 32.6 % (35.4-49); HEMOGLOBIN 10.6 GM/dL (11.7-16.9); LYMPH % 17.1 % (8-40); MCH 31.2 pg (25.7-33.7); MCHC 32.5 g/dl (32.0-35.9); MEAN PLT VOLUME 7.5 fl (7.5-11.1); MONO % 6.9 % (3.8-10.2); NEUT % 72.4 % (42.8-82.8); PLATELET COUNT 361 K/MM3 (134-434); RDW 15.2 % (11.9-15.9); WHITE BLOOD COUNT 8.5 K/mm3 (4.0-10.0)
[2019-10-24 08:52] LABS: ALBUMIN 2.9 g/dl (3.4-5.0); BILIRUBIN,TOTAL 0.6 mg/dL (0.2-1); BLOOD UREA NITROGEN 19.9 mg/dL (7-18); CALCIUM 9.3 mg/dL (8.5-10.1); CREATININE 1.5 mg/dL (0.55-1.3); MAGNESIUM 2.1 mg/dL (1.8-2.4); POTASSIUM 4.1 mmol/L (3.5-5.1); TOT PROT 6.9 g/dl (6.4-8.2)
[2019-10-24] MEDS: ASPIRIN COATED 81 MG TABLET.EC PO SCH (09:42)
[2019-10-24] MEDS: NIFEdipine E.R 60 MG TABLET PO SCH (09:42)
[2019-10-24] MEDS: FOLIC ACID 1 MG TABLET (FP) PO SCH (09:42)
[2019-10-24] MEDS: CLOPIDOGREL BISULFATE 75 MG TABLET (FP) PO SCH (09:42)
[2019-10-24] MEDS: TAMSULOSIN HCL 0.4 MG CAP PO SCH (09:42)
[2019-10-24] MEDS: SPIRONOLACTONE 25 MG TABLET PO SCH (09:42)
[2019-10-24] MEDS: THIAMINE HCL 100 MG TABLET (FP) PO SCH (09:43)
[2019-10-24] MEDS: BUDESONIDE/FORMETEROL FUMARATE 80/4.5 mcg INHALER IH SCH (09:43)
[2019-10-24] MEDS: NICOTINE 7 MG/24 HOURS TOPICAL PATCH TD SCH (09:48)
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
--- NOTE | 2019-10-24 12:09 | PN ---
Progress Note (short form) - Note Progress Note: s: no cp sob palps dizzy Current Medications Generic Name Dose Route Start Last Admin Trade Name Freq PRN Reason Stop Dose Admin Acetaminophen 650 mg 10/21/19 08:45 10/24/19 06:10 Tylenol - PO 650 mg Q6H PRN Administration PAIN LEVEL 1-5 Albuterol/Ipratropium 1 amp 10/22/19 14:38 10/23/19 16:28 Duoneb - NEB 1 amp Q6H PRN Administration SHORTNESS OF BREATH Aspirin 81 mg 10/21/19 10:00 10/24/19 09:42 Ecotrin - PO 81 mg DAILY PUSHPA Administration Atorvastatin Calcium 40 mg 10/21/19 22:00 10/23/19 21:16 Lipitor - PO 40 mg HS PUSHPA Administration Budesonide/Formoterol Fumarate 1 puff 10/21/19 10:00 10/24/19 09:43 Symbicort 80/4.5mcg - IH 1 puff BID PUSHPA Administration Clopidogrel Bisulfate 75 mg 10/21/19 10:00 10/24/19 09:42 Plavix - PO 75 mg DAILY PUSHPA Administration Folic Acid 1 mg 10/21/19 10:00 10/24/19 09:42 Folic Acid - PO 1 mg DAILY PUSHPA Administration Furosemide 20 mg 10/24/19 14:00 Lasix - PO BID@0600,1400 [facility] Heparin Sodium (Porcine) 5,000 unit 10/21/19 06:00 10/24/19 06:09 Heparin - SQ 5,000 unit TID PUSHPA Administration Hydralazine HCl 100 mg 10/21/19 06:00 10/24/19 06:09 Apresoline - PO 100 mg TID P[facility] Administration Insulin Aspart 1 vial 10/21/19 07:00 10/24/19 11:27 Novolog Vial Sliding Scale - SQ 2 units ACHS PUSHPA Administration Protocol Labetalol HCl 400 mg 10/21/19 06:00 10/24/19 06:09 Normodyne - PO 400 mg TID PUSH[facility] Administration Lidocaine 1 patch 10/21/19 19:00 10/23/19 18:36 Lidoderm Patch - TP 1 patch DAILY@1900 [facility] Administration Miscellaneous 1 each 10/22/19 07:00 10/24/19 06:09 Lidoderm Patch Removal MC Not Given DAILY@0700 [facility] Nicotine 7 mg 10/21/19 10:00 10/24/19 09:48 Nicoderm Patch - TD Not Given DAILY P[facility] Nifedipine 120 mg 10/21/19 10:00 10/24/19 09:42 Procardia Xl - PO 120 mg DAILY [facility] Administration Spironolactone 50 mg 10/21/19 10:00 10/24/19 09:42 Aldactone - PO 50 mg BID PUSH[facility] Administration Tamsulosin HCl 0.4 mg 10/21/19 08:30 10/24/19 09:42 Flomax - PO 0.4 mg DAILY@0830 [facility] Administration Thiamine HCl 100 mg 10/21/19 10:00 10/24/19 09:43 Vitamin B1 - PO 100 mg DAILY P[facility] Administration Vital Signs Period Temp Pulse Resp BP Sys/Caal Pulse Ox Last 24 Hr 98.2 F-99.1 F 84-91 20-20 117-155/74-92 90-96 Constitutional: Yes: No Distress, Calm Cardiovascular: Yes: Regular Rate and Rhythm Respiratory: Yes: CTA Bilaterally (no rales today) Gastrointestinal: Yes: Soft (nt) Edema: No Neurological: Yes: Alert, Oriented ...Motor Strength: WNL no jaundice diaphoresis Labs: CBC, BMP 10/24/19 07:30 10/24/19 07:30 Assessment/Plan Assessment/Plan DATA: 10/20/2019: CTA: No PE, groundglass opacities, mediastinal adenopathy 08/30/[address]: No PE, diffuse groundglass opacification, small bilateral effusions similar to previous 05/12/2019 01/03/2019 Echo: Mildly dilated, mild cLVH, low normal LVEF 50-55%, normal RV fxn, mild SHAHANA, mod-severe MR, mild-mod TR RVSP 58 mmHg, mild AR, MO 12/02/2018 Mri of brain: No acute stroke, old right posterior temporal cortical infarct 12/02/2018 Carotid ultrasound should left moderate stenosis 12/02/2018 Echo: Normal LV size and fxn with mod cLVH, normal RV size and fxn, mild SHAHANA, mild MR, TR, AR 12/01/2018 Ct head right old posterior temoral lobe infarct identified 11/02/[address]: Bilateral min-mild upper and lower lung opacity c/w congestion, mild LAE, LV dilatation 04/13/2018 Echo: Normal LV size and fxn with mild cLVH, grade II diastolic dysfunction, mod LAE, mild MR, mild AR 10/27/2017 Echo: Mild cLVH, normal RV and LV size and fxn, mild-mod MR, mild AR 10/29/2017 Regadenoson stress: Large inferior, inferolateral and apical infarct without ischemia, LVEF 29% IMP: 1. Chest pain syndrome in a patient with known history of coronary artery d isease post DC/PCI/stent. Likely precipitated by uncontrolled HTN 2. Acute on chronic diastolic heart failure 3. Recent COVID diagnosis 4. History of COPD with intermittent acute exacerbations 5. Hypertensive heart disease, poorly compliant 6. Type 2 DM c/b peripheral neuropathy 7. Hypercholesterolemia 8. History of cerebro-vascular disease 9. History of carotid stenosis post right CEA 10. History of abdominal aortic aneurysm/4.3 cm infra-renal with mural thrombus 11. CKD Stage III 12. Anemia 13. History of polysubstance abuse (ETOH and Cocaine) 14. History of angioedema related to ACEI therapy 15. AAA(3.9 cm) PLAN: 1. Chest pain: CTA negative PE. -in setting uncontrolled HTN, now resolved -Cardiac enzymes negative x 2 sets -Continue home ASA 81mg daily; clarify timing of prior cardiac stents in order to determine need for Plavix 2. Acute on chronic diastolic CHF: BNP slightly higher now than previous admissions, likely triggered uncontrolled HTN -improved, cont po lasix 4. COPD: -Smoking cessation, cont home regimen 5. HTN heart dz: ANGIOEDEMA TO IRMA-I -On prior admission in [facility] MEDS were as follows: -Labetolol 400 tid -Hydralazine 100 tid and Imdur 60 qd -Procardia XL 120 qd (Counseled importance of compliance to therapy administration) 6. DM: as per PMD 7. HLD: cont statin, LDL goal 70 8. Carotid disease: -ASA/Statin -Vascular f/u as outpt 9. AAA: -BP control/Beta blockade/smoking cessation -Vascular f/u 10: CKD: -Check daily BMP while on IV Lasix 11. Polysubstance abuse: -suggest social work assist pt with plan for rehab on discharge cardiac penaloza stable
[2019-10-24] MEDS ORDERED: FUROSEMIDE 20 MG TABLET (FP) PO SCH (14:00)
[2019-10-24 14:23] VITALS: BP 124/90; PULSE 83; TEMP 97.8
--- NOTE | 2019-10-24 14:27 | PN ---
Progress Note, Physician History of Present Illness: Pt seen and examined at bedside. He is awake and alert. - Current Medication List Current Medications: Active Medications Acetaminophen (Tylenol -) 650 mg PO Q6H PRN PRN Reason: PAIN LEVEL 1-5 Last Admin: 10/24/19 06:10 Dose: 650 mg Documented by: Albuterol/Ipratropium (Duoneb -) 1 amp NEB Q6H PRN PRN Reason: SHORTNESS OF BREATH Last Admin: 10/23/19 16:28 Dose: 1 amp Documented by: Aspirin (Ecotrin -) 81 mg PO DAILY [facility] Last Admin: 10/24/19 09:42 Dose: 81 mg Documented by: Atorvastatin Calcium (Lipitor -) 40 mg PO HS [facility] Last Admin: 10/23/19 21:16 Dose: 40 mg Documented by: Budesonide/Formoterol Fumarate (Symbicort 80/4.5mcg -) 1 puff IH BID [facility] Last Admin: 10/24/19 09:43 Dose: 1 puff Documented by: Clopidogrel Bisulfate (Plavix -) 75 mg PO DAILY [facility] Last Admin: 10/24/19 09:42 Dose: 75 mg Documented by: Folic Acid (Folic Acid -) 1 mg PO DAILY [facility] Last Admin: 10/24/19 09:42 Dose: 1 mg Documented by: Furosemide (Lasix -) 20 mg PO BID@0600,1400 [facility] Last Admin: 10/24/19 13:01 Dose: 20 mg Documented by: Heparin Sodium (Porcine) (Heparin -) 5,000 unit SQ TID [facility] Last Admin: 10/24/19 13:11 Dose: 5,000 unit Documented by: Hydralazine HCl (Apresoline -) 100 mg PO TID [facility] Last Admin: 10/24/19 13:01 Dose: 100 mg Documented by: Insulin Aspart (Novolog Vial Sliding Scale -) 1 vial SQ [facility]; Protocol Last Admin: 10/24/19 11:27 Dose: 2 units Documented by: Labetalol HCl (Normodyne -) 400 mg PO TID [facility] Last Admin: 10/24/19 13:01 Dose: 400 mg Documented by: Lidocaine (Lidoderm Patch -) 1 patch TP DAILY@1900 [facility] Last Admin: 10/23/19 18:36 Dose: 1 patch Documented by: Miscellaneous (Lidoderm Patch Removal) 1 each MC DAILY@0700 [facility] Last Admin: 10/24/19 06:09 Dose: Not Given Documented by: Nicotine (Nicoderm Patch -) 7 mg TD DAILY [facility] Last Admin: 10/24/19 09:48 Dose: Not Given Documented by: Nifedipine (Procardia Xl -) 120 mg PO DAILY [facility] Last Admin: 10/24/19 09:42 Dose: 120 mg Documented by: Spironolactone (Aldactone -) 50 mg PO BID [facility] Last Admin: 10/24/19 09:42 Dose: 50 mg Documented by: Tamsulosin HCl (Flomax -) 0.4 mg PO DAILY@0830 [facility] Last Admin: 10/24/19 09:42 Dose: 0.4 mg Documented by: Thiamine HCl (Vitamin B1 -) 100 mg PO DAILY [facility] Last Admin: 10/24/19 09:43 Dose: 100 mg Documented by: - Objective Vital Signs: Vital Signs Temperature 97.8 F 10/24/19 10:00 Pulse Rate 83 10/24/19 10:00 Respiratory Rate 10/24/19 10:00 Blood Pressure 124/90 10/24/19 10:00 O2 Sat by Pulse Oximetry (%) 94 L 10/24/19 10:00 Constitutional: Yes: Calm Eyes: Yes: Conjunctiva Clear HENT: Yes: Atraumatic Neck: Yes: Supple Cardiovascular: Yes: S1, S2 Respiratory: Yes: CTA Bilaterally Gastrointestinal: Yes: Soft Genitourinary: Yes: WNL Musculoskeletal: Yes: WNL Edema: Yes Edema: LLE: Trace, RLE: Trace Neurological: Yes: Oriented Psychiatric: Yes: Oriented Labs: CBC, BMP 10/24/19 07:30 10/24/19 07:30 INR, PTT INR 0.99 (0.83-1.09) 10/21/19 09:28 Assessment/Plan Current Medications Generic Name Dose Route Start Last Admin Trade Name Freq PRN Reason Stop Dose Admin Acetaminophen 650 mg 10/21/19 08:45 10/24/19 06:10 Tylenol - PO 650 mg Q6H PRN Administration PAIN LEVEL 1-5 Albuterol/Ipratropium 1 amp 10/22/19 14:38 10/23/19 16:28 Duoneb - NEB 1 amp Q6H PRN Administration SHORTNESS OF BREATH Aspirin 81 mg 10/21/19 10:00 10/24/19 09:42 Ecotrin - PO 81 mg DAILY [facility] Administration Atorvastatin Calcium 40 mg 10/21/19 22:00 10/23/19 21:16 Lipitor - PO 40 mg HS [facility] Administration Budesonide/Formoterol Fumarate 1 puff 10/21/19 10:00 10/24/19 09:43 Symbicort 80/4.5mcg - IH 1 puff BID [facility] Administration Clopidogrel Bisulfate 75 mg 10/21/19 10:00 10/24/19 09:42 Plavix - PO 75 mg DAILY [facility] Administration Folic Acid 1 mg 10/21/19 10:00 10/24/19 09:42 Folic Acid - PO 1 mg DAILY [facility] Administration Furosemide 20 mg 10/24/19 14:00 10/24/19 13:01 Lasix - PO 20 mg BID@0600,1400 [facility] Administration Heparin Sodium (Porcine) 5,000 unit 10/21/19 06:00 10/24/19 13:11 Heparin - SQ 5,000 unit TID [facility] Administration Hydralazine HCl 100 mg 10/21/19 06:00 10/24/19 13:01 Apresoline - PO 100 mg TID [facility] Administration Insulin Aspart 1 vial 10/21/19 07:00 10/24/19 11:27 Novolog Vial Sliding Scale - SQ 2 units ACHS [facility] Administration Protocol Labetalol HCl 400 mg 10/21/19 06:00 10/24/19 13:01 Normodyne - PO 400 mg TID [facility] Administration Lidocaine 1 patch 10/21/19 19:00 10/23/19 18:36 Lidoderm Patch - TP 1 patch DAILY@1900 [facility] Administration Miscellaneous 1 each 10/22/19 07:00 10/24/19 06:09 Lidoderm Patch Removal MC Not Given DAILY@0700 [facility] Nicotine 7 mg 10/21/19 10:00 10/24/19 09:48 Nicoderm Patch - TD Not Given DAILY [facility] Nifedipine 120 mg 10/21/19 10:00 10/24/19 09:42 Procardia Xl - PO 120 mg DAILY [facility] Administration Spironolactone 50 mg 10/21/19 10:00 10/24/19 09:42 Aldactone - PO 50 mg BID [facility] Administration Tamsulosin HCl 0.4 mg 10/21/19 08:30 10/24/19 09:42 Flomax - PO 0.4 mg DAILY@0830 [facility] Administration Thiamine HCl 100 mg 10/21/19 10:00 10/24/19 09:43 Vitamin B1 - PO 100 mg DAILY [facility] Administration Impression 1. CKD 2. htn 3. dm 4. AAA 5. hx of covid 6. chest pain 7. hx etoh abuse 8. cocaine use Plan - bp is stable - cont current meds - will need outpt follow up - avoid nephrotoxins - discussed plan with pt
[2019-10-25] MEDS ORDERED: LORazepam 0.5 MG TABLET PO ONE (05:00)
[2019-10-25] MEDS ORDERED: chlordiazePOXIDE HCL 10 MG CAPSULE PO ONE (05:00)
== END 2019-10-24 14:45 | disposition home or self-care (01) | DRG 199 ==
LOC: JER 19:22 → JERBED 10-21 01:55 → J8W 10-21 12:48
PROVIDERS: ADMIT Internal Medicine; ATTEND Internal Medicine
DX: I16.0 Hypertensive urgency (principal); I13.0 Hypertensive heart and chronic kidney disease with heart failure and stage 1 through stage 4 chronic kidney disease, or unspecified chronic kidney disease; I50.33 Acute on chronic diastolic (congestive) heart failure; N17.9 Acute kidney failure, unspecified; E11.22 Type 2 diabetes mellitus with diabetic chronic kidney disease; E11.40 Type 2 diabetes mellitus with diabetic neuropathy, unspecified; I71.4 Abdominal aortic aneurysm, without rupture; I42.8 Other cardiomyopathies; I25.10 Atherosclerotic heart disease of native coronary artery without angina pectoris; I25.2 Old myocardial infarction; J44.9 Chronic obstructive pulmonary disease, unspecified; N18.3 Chronic kidney disease, stage 3 (moderate); F14.10 Cocaine abuse, uncomplicated; Z98.61 Coronary angioplasty status; F10.10 Alcohol abuse, uncomplicated; Z79.84 Long term (current) use of oral hypoglycemic drugs; F17.210 Nicotine dependence, cigarettes, uncomplicated; D64.9 Anemia, unspecified; Z68.32 Body mass index [BMI] 32.0-32.9, adult; E66.9 Obesity, unspecified; R07.89 Other chest pain; Z86.19 Personal history of other infectious and parasitic diseases; Z86.73 Personal history of transient ischemic attack (TIA), and cerebral infarction without residual deficits; M54.9 Dorsalgia, unspecified
CPT/HCPCS: 36415; 71045-TC-FY; 71275-TC; 74174-TC; 80053; 80061; 80307; 81003; 82550; 82728; 82962; 83540; 83550; 83690; 83721; 83735; 83880; 84100; 84484; 85025; 85045; 85610; 85730; 86769; 93005; 93010; 94640; 94761; 99285-25; J0131; J1644; Q9967; U0003

== ENCOUNTER 2019-11-24 17:05 | Inpatient (IN) | payer OTHER ==
[2019-11-24] MEDS ORDERED: FUROSEMIDE 40 MG/4 ML INJECTABLE VIAL IVPUSH ONE (17:37)
[2019-11-24] MEDS ORDERED: NITROGLYCERIN 2% OINTMENT - 1GM PACKET TD ONE ×2 (17:37→17:44)
[2019-11-24] MEDS ORDERED: ACETAMINOPHEN INJECTION 100 ML IVPB ONE (17:47)
[2019-11-24] MEDS ORDERED: FUROSEMIDE 40 MG/4 ML INJECTABLE VIAL ONE (17:47)
--- NOTE | 2019-11-24 18:10 | PDOC ---
Documentation entered by Alyse Craig SCRIBE, acting as scribe for Sharmin Moss DO. Sharmin Moss DO: This documentation has been prepared by the Kiara devi Brenda, SCRIBE, under my direction and personally reviewed by me in its entirety. I confirm that the documentation accurately reflects all work, treatment, procedures, and medical decision making performed by me. Attending Attestation - Resident Resident Name: Fredi Lora - ED Attending Attestation I have performed the following: I have examined & evaluated the patient, The case was reviewed & discussed with the resident, I agree w/resident's findings & plan, Exceptions are as noted - HPI HPI: 11/24/19 17:44 The patient is a 59 year old male with a significant PMH of HTN, DM, HLD, ME s/p 3x stents, R. Carotid endarterectomy (07/2018), COPD/asthma, HFpEF, CKD, TIA, stable AAA and cocaine/alcohol use disorder who presents to the emergency department for evaluation of chest pain and shortness of breath since last night. The patient notes that he has been experiencing tight chest pain along with orthopnea with an inability to lay flat. Patient reports that he ran out of medications 3 days ago and lost his PCP's number so has not been compliant with medications for 3 days. The patient denies headache and dizziness. Denies fever, chills, nausea, vomiting, diarrhea and constipation. Denies dysuria, frequency, urgency and hem aturia. Allergies: IRMA Inhibitors Past surgical history: 3x Stents, Carotid endarterectomy (07/2018) Social history: Cocaine/alcohol use disorder PCP: Mary - Physicial Exam PE: 11/24/19 17:47 GENERAL: Awake, alert, and fully oriented, in no acute distress HEAD: No signs of trauma EYES: PERRLA, EOMI, sclera anicteric, conjunctiva clear ENT: Auricles normal inspection, hearing grossly normal, nares patent, oropharynx clear without exudates. Moist mucosa NECK: Normal ROM, supple, no lymphadenopathy, JVD, or masses LUNGS: (+) Diffuse rales (+) Diffuse wheezes. (+) Conversational dyspnea (3- 4words). Breath sounds equal. HEART: (+)tachycardic. (+) Hypertensive. Regular rhythm, normal S1 and S2, no murmurs, rubs or gallops ABDOMEN: Soft, nontender, normoactive bowel sounds. No guarding, no rebound. No masses EXTREMITIES: (+) LE 3+ pitting edema bilaterally. Normal range of motion. No clubbing or cyanosis. No cords, erythema, or tenderness NEUROLOGICAL: Cranial nerves II through XII grossly intact. SKIN: Warm, Dry, normal turgor, no rashes or lesions noted. - Critical Care Time Total Critical Care Time: 35 Critical Care Statement: The care of this patient involved high complexity decision making to prevent further life threatening deterioration of the patien t's condition and/or to evaluate & treat vital organ system(s) failure or risk of failure. - Medical Decision Making 11/24/19 17:57 a/p: 59yo male with hx of copd, chf, cad, mi in the past with cp/sob since last night -states cough, productive white sputum -no f/c -ran out of his meds 3 days ago, sob and cp since last night -pt with conversational dyspnea -pt with b lines and L pleural effusion on ultrasound -LE edema -concern for CHF exacerbation with hypertensive emergency -will need lasix iv, admission -will need labs, cxr, ekg -admission -pmd dr. kim 11/24/19 18:22 cxr shows pulm vasc congestion re-eval: BP still 206/136 will give iv meds for bp iv tylenol for nitro moore pt states feeling better RR down from 44->33 11/24/19 19:11 trop neg ckd - cr at baseline bp improving microblog sent for [employer] bnp 7000 11/24/19 20:48 resident discussed the case with [employer] who accepts pt to service Heart Score/ECG Review - ECG Intrepretation Comment:: 11/24/19 19:19 sinus tach at 112, nl axis, lvh, t wave inversions v6,i, avl, abnl ekg, unchnaged from prior Discharge - Discharge Information Problems reviewed: Yes Clinical Impression/Diagnosis: Shortness of breath, Chest pain, CHF (congestive heart failure), Hypertensive urgency Condition: Guarded - Admission Yes - Follow up/Referral - Patient Discharge Instructions - Post Discharge Activity
[2019-11-24] MEDS ORDERED: hydrALAZINE HCL 20 MG/ML VIAL ONE (18:19)
[2019-11-24] MEDS ORDERED: ACETAMINOPHEN 1000 MG/100 ML VIAL (NON FORMULARY) IVPB ONE (18:19)
[2019-11-24] MEDS ORDERED: hydrALAZINE HCL 20 MG/ML VIAL IVPUSH ONE (18:19)
[2019-11-24 18:22] LABS: BASO % 0.7 % (0-2.0); EOS % 1.1 % (0-4.5); HEMATOCRIT 35.1 % (35.4-49); HEMOGLOBIN 11.6 GM/dL (11.7-16.9); LYMPH % 14.2 % (8-40); MEAN CELL VOLUME 97.1 fl (80-96); MEAN PLT VOLUME 7.7 fl (7.5-11.1); MONO % 9.8 % (3.8-10.2); NEUT % 74.2 % (42.8-82.8); PLATELET COUNT 282 K/MM3 (134-434); RBC 3.61 M/mm3 (4.00-5.60); RDW 14.8 % (11.9-15.9); WHITE BLOOD COUNT 10.3 K/mm3 (4.0-10.0)
[2019-11-24 18:33] LABS: INR 1.08 (0.83-1.09); PROTHROMBIN TIME (PATIENT) 12.8 SEC (9.7-13.0)
[2019-11-24 18:36] LABS: ACTIVATED PTT 31.7 SECONDS (25.2-36.5)
--- NOTE | 2019-11-24 18:36 | PDOC ---
History of Present Illness - General Chief Complaint: Chest Pain Stated Complaint: CHEST PAIN Time Seen by Provider: 11/24/19 17:14 - History of Present Illness Initial Comments: 11/24/19 19:22 Tank Ernandez is a 59M who is well known to [facility] for admission for chest pain and SOB, has PMH CAD/PR (s/p PCI/stents), NICM, asthma/COPD, CKD Stage III, T2DM, HFpEF w/last EF 55%, AAA (last 3.9 or 4.3cm), cocaine/EtOH abuse disorder, presents with one day of SOB, chest pressure, and leg swelling in the setting of not taking any for his medications for the last three days. States he was not able to refill his meds because he lost his wallet. Reports intermitted SOB since last night, associated with chest pressure. Reports left sided chest pain, worse with deep breaths. Reports orthopnea, paroxysmal dyspnea, dyspnea on exertion, b/l leg swelling, cough productive of clear sputum. Denies fever, headache, vision problems, abdominal pain, GI/ symptoms. ROS GENERAL/CONSTITUTIONAL: No fever or chills. No weakness. HEAD, EYES, EARS, NOSE AND THROAT: No change in vision. No ear pain or discharge. No sore throat. CARDIOVASCULAR: chest pain and shortness of breath RESPIRATORY: cough, no wheezing, or hemoptysis. GASTROINTESTINAL: No nausea, vomiting, diarrhea or constipation. GENITOURINARY: No dysuria, frequency, or change in urination. MUSCULOSKELETAL: No joint or muscle swelling or pain. No neck or back pain. SKIN: No rash NEUROLOGIC: No headache, vertigo, loss of consciousness, or change in strength/sensation. ENDOCRINE: No increased thirst. No abnormal weight change HEMATOLOGIC/LYMPHATIC: No anemia, easy bleeding, or history of blood clots. ALLERGIC/IMMUNOLOGIC: No hives or skin allergy. PE GENERAL: Awake, alert, and fully oriented, tachypneaic HEAD: No signs of trauma, normocephalic, atraumatic EYES: PERRLA, EOMI, sclera anicteric, conjunctiva clear ENT: Auricles normal inspection, hearing grossly normal, nares patent, orophary nx clear without exudates. Moist mucosa NECK: Normal ROM, supple, no lymphadenopathy, JVD, or masses LUNGS: tachypneaic, bibasilar crackles L>R, wheezing HEART: Regular tachycardia, normal S1 and S2, no murmurs, rubs or gallops ABDOMEN: Soft, nontender, normoactive bowel sounds. No guarding, no rebound. No masses EXTREMITIES : 2+ b/l LE pitting edema to the knees. No clubbing or cyanosis. NEUROLOGICAL: Normal speech, no focal sensorimotor deficits SKIN: no rashes or lesions noted Vital Signs - 24 hr 11/24/19 11/24/19 11/24/19 17:10 17:19 18:15 Temperature 98.5 F Pulse Rate 117 H Pulse Rate [ 111 H 104 H Right Apical] Respiratory 28 H 26 H 30 H Rate Blood Pressure 216/142 H Blood Pressure 213/136 H 206/136 H [Left Arm] O2 Sat by Pulse 93 L 93 L 99 Oximetry (%) 11/24/19 11/24/19 18:41 19:16 Temperature Pulse Rate Pulse Rate [ 103 H 102 H Right Apical] Respiratory 36 H 30 H Rate Blood Pressure Blood Pressure 172/127 H 177/112 H [Left Arm] O2 Sat by Pulse 100 100 Oximetry (%) MDM: Tank Ernandez is a 59M who is well known to [facility] for admission for chest pain and SOB, has PMH CAD/PR (s/p PCI/stents), NICM, asthma/COPD, CKD Stage III, T2DM, HFpEF w/last EF 55%, AAA (last 3.9 or 4.3cm), cocaine/EtOH abuse disorder, presents with one day of SOB, chest pressure, leg swelling, cough in the setting of not taking any for his medications for the last three days. Vitals notable for elevated BP to 216/142, tachycardia to 117, RR 28, O2 sat 93% on RA. DDx include CHF exacerbation, ACS, asthma/COPD exacerbation, pneumonia. -EKG -CXR -CBC, CMP, cardiac enzymes, coags, mg, covid -aspirin 324, lasix 40 IV, nitro past Repeat BP after lasix was 206/136, so given 10mg hydralazine IV Repeat BP after hydralazine was 172/127 11/24/19 22:01 EKG: Sinus tachycardia with PACs, rate 112, normal axis, QTc 483, non-specific T wave abnormalities not significantly changed from prior CXR: no acute pathology Labs: no emergent values. Baseline anemia, renal disfunction. Elevated BNP. Trop neg x1 Laboratory Tests 11/24/19 11/24/19 11/24/19 17:40 17:40 17:40 WBC 10.3 H RBC 3.61 L Hgb 11.6 L Hct 35.1 L MCV 97.1 H MCH 32.0 MCHC 33.0 RDW 14.8 Plt Count 282 D MPV 7.7 Absolute Neuts (auto) 7.7 Neutrophils % 74.2 Lymphocytes % 14.2 Monocytes % 9.8 Eosinophils % 1.1 Basophils % 0.7 Nucleated RBC % 0 PT with INR 12.80 INR 1.08 PTT (Actin FS) 31.7 Sodium 136 Potassium 5.0 Chloride 107 Carbon Dioxide 20 L Anion Gap 9 BUN 18.1 H Creatinine 1.6 H Est GFR (CKD-EPI)AfAm 54.23 Est GFR (CKD-EPI)NonAf 46.79 Random Glucose 125 H Calcium 8.8 Magnesium 2.3 Total Bilirubin 1.2 H AST 42 H ALT 36 Alkaline Phosphatase 176 H Creatine Kinase 156 Creatine Kinase Index 1.1 CK-MB (CK-2) 1.8 Troponin I < 0.02 B-Natriuretic Peptide 7842.2 H Total Protein 8.0 Albumin 3.3 L 11/24/19 22:03 Admitted to telemetry for hypertensive emergency and CHF exacerbation Signed out to admitting team Past History - Medical History Allergies/Adverse Reactions: Allergies Allergy/AdvReac Type Severity Reaction Status Date / Time IRMA Inhibitors Allergy Verified 11/24/19 17:08 Home Medications: Ambulatory Orders Fluticasone Propionate [Flovent Hfa] 2 puff IH BID 06/21/19 Albuterol 2.5/Ipratropium 0.5 [Duoneb -] 1 amp NEB TID PRN #10 amp 09/01/19 Albuterol Sulfate Inhaler - [Ventolin HFA Inhaler -] 1 - 2 inh PO Q4H PRN #2 inhaler 09/01/19 Aspirin Coated [Ecotrin -] 81 mg PO DAILY #30 tablet.ec 09/01/19 Budesonide/Formeterol Fumarate [SYMBICORT 80/4.5mcg -] 1 inh PO BID #1 cannister 09/01/19 Ergocalciferol (Vitamin D2) [Vitamin D2] 50,000 unit PO FR #30 cap 09/01/19 Hydralazine HCl 100 mg PO TID #90 tablet 09/01/19 Labetalol HCl [Normodyne -] 400 mg PO TID #90 tablet 09/01/19 Metformin HCl [Glucophage] 1,000 mg PO BID #60 tablet 09/01/19 Miscellaneous Medical Supply [Outpatient Order] 1 each ASDIR #1 misc 09/01/19 Miscellaneous Medical Supply [Outpatient Order] 1 each ASDIR #1 misc 09/01/19 Nebulizer and Compressor [[place] Choice Nebulizer] 1 each PRN #1 each 09/01/19 Nifedipine ER [Procardia XL -] 120 mg PO DAILY #60 tab.er.24 09/01/19 Tamsulosin HCl [Flomax -] 0.4 mg PO DAILY@0830 #30 cap.er.24h 09/01/19 Atorvastatin Ca [Lipitor] 40 mg PO HS #30 tablet 10/22/19 Budesonide/Formeterol Fumarate [SYMBICORT 80/4.5mcg -] 1 puff IH BID #1 inhaler 10/22/19 Clopidogrel Bisulfate [Plavix] 75 mg PO DAILY #30 tablet 10/22/19 Furosemide [Lasix -] 40 mg PO BID #60 tablet 10/22/19 Glipizide Xl [Glucotrol Xl -] 2.5 mg PO DAILY #30 tab.sr 10/22/19 Labetalol HCl [Normodyne -] 400 mg PO TID #90 tablet 10/22/19 Spironolactone [Aldactone -] 50 mg PO BID #60 tablet 10/22/19 hydrALAZINE HCL [Apresoline -] 100 mg PO TID #90 tablet 10/22/19 Lidocaine 5% Patch [Lidoderm -] 1 patch TP DAILY@1900 #30 patch 10/23/19 Anemia: No Asthma: Yes Cancer: No Cardiac Disorders: Yes (CAD) CVA: Yes COPD: Yes CHF: Yes (Diastolic CHF) DVT: No Dementia: No Diabetes: Yes GI Disorders: No Disorders: No HTN: Yes Hypercholesterolemia: Yes Kidney Stones: No Liver Disease: No Seizures: No Thyroid Disease: No - Surgical History Abdominal Surgery: No Appendectomy: No Cardiac Surgery: Yes (Carotid endareterectomy) Cholecystectomy: No Lung Surgery: No Neurologic Surgery: No Orthopedic Surgery: Yes (Old injury fractured left ankle x2) - Reproductive History Testicular Surgery: No - Immunization History Immunization Up to Date: Yes - Psycho-Social/Smoking History Smoking Status: No Smoking History: Current every day smoker Have you smoked in the past 12 months: Yes Number of Cigarettes Smoked Daily: 3 If you are a former smoker, when did you quit?: smokes 2 x per week Information on smoking cessation initiated: Yes 'Breaking Loose' booklet given: 04/10/19 - Substance Abuse Hx (Audit-C & DAST Scrn) How often the patient has a drink containing alcohol: Monthly or less Number of drinks the patient has on a typical day: 1 or 2 How often the patient has six or more drinks on one occasion: Never Score: In Men: 4 or > Positive; In Women: 3 or > Positive: 1 Screen Result (Pos requires Nsg. Audit-10AR): Negative In the last yr the pt used illegal drug/Rx for NonMed reason: Yes Score: Yes response is considered Positive: 1 Screen Result (Positive result requires Nsg. DAST-10): Positive *Physical Exam - Vital Signs Last Vital Signs Temp Pulse Resp BP Pulse Ox 98.5 F 111 H 26 H 213/136 H 93 L 11/24/19 17:10 11/24/19 17:19 11/24/19 17:19 11/24/19 17:19 11/24/19 17:19 ED Treatment Course - LABORATORY CBC & Chemistry Diagram: 11/24/19 17:40 11/24/19 17:40 - ADDITIONAL ORDERS Additional order review: Laboratory Results 11/24/19 17:40 PT with INR 12.80 INR 1.08 PTT (Actin FS) 31.7 11/24/19 17:40 RBC 3.61 L MCV 97.1 H MCHC 33.0 RDW 14.8 MPV 7.7 Neutrophils % 74.2 Lymphocytes % 14.2 Monocytes % 9.8 Eosinophils % 1.1 Basophils % 0.7 - Medications Given in the ED: ED Medications Discontinued Medications Generic Name Dose Route Start Last Admin Trade Name Freq PRN Reason Stop Dose Admin Acetaminophen 1,000 mg 11/24/19 18:19 11/24/19 18:24 Ofirmev Injection - IVPB 11/24/19 18:20 1,000 mg ONCE ONE Administration Furosemide 40 mg 11/24/19 17:37 11/24/19 17:52 Lasix Injection - IVPUSH 11/24/19 17:38 40 mg ONCE ONE Administration Hydralazine HCl 10 mg 11/24/19 18:19 11/24/19 18:24 Apresoline Injection - IVPUSH 11/24/19 18:20 10 mg ONCE ONE Administration Nitroglycerin 1 inch 11/24/19 17:37 11/24/19 17:52 Nitro-Bid 2% Paste - TD 11/24/19 17:38 1 inch ONCE ONE Administration Medical Decision Making - Critical Care Time Total Critical Care Time (minutes): 35 Critical Care Statement: The care of this patient involved high complexity decision making to prevent further life threatening deterioration of the patient's condition and/or to evaluate & treat vital organ system(s) failure or risk of failure. Discharge - Discharge Information Problems reviewed: Yes Clinical Impression/Diagnosis: Shortness of breath, Chest pain, CHF (congestive heart failure), Hypertensive urgency Condition: Guarded - Follow up/Referral - Patient Discharge Instructions - Post Discharge Activity
[2019-11-24 19:01] LABS: ALBUMIN 3.3 g/dl (3.4-5.0); ALK PHOS 176 U/L (45-117); ANION GAP 9 MMOL/L (8-16); BILIRUBIN,TOTAL 1.2 mg/dL (0.2-1); BLOOD UREA NITROGEN 18.1 mg/dL (7-18); CALCIUM 8.8 mg/dL (8.5-10.1); CHLORIDE 107 mmol/L (98-107); CO2 20 mmol/L (21-32); CREATININE 1.6 mg/dL (0.55-1.3); GLUCOSE,RANDOM 125 mg/dL (74-106); MAGNESIUM 2.3 mg/dL (1.8-2.4); N-TERMINAL BNP 7842.2 pg/ml (5-125); SGOT/AST 42 U/L (15-37); SGPT/ALT 36 U/L (13-61); SODIUM 136 mmol/L (136-145)
[2019-11-24] MEDS ORDERED: ASPIRIN 81 MG CHEWABLE TABLETS PO ONE (19:13)
[2019-11-24] MEDS ORDERED: ALBUTEROL SO4 HFA INHALER IH ONE ×2 (19:17→19:26)
[2019-11-24] MEDS ORDERED: ASPIRIN 81 MG CHEWABLE TABLETS ONE (19:19)
--- NOTE | 2019-11-24 21:43 | HP ---
CHIEF COMPLAINT: Dyspnea and chest pain HISTORY OF PRESENT ILLNESS: Mr. Tank Deng is a 59 year old man with PMH of HFpEF, CAD (hx 3 [place]; PCI, stent placement), AAA (3.9 cm in 09/2019) hypertension, hyperlipidemia, COPD, NIDDM, Stage III CKD, CVA, polysubstance abuse (alcohol and cocaine), presenting with one day of chest pain, dyspnea, and orthopnea. He has a long history of medication non-compliance, and ran out of all of his medications 3 days ago. He reports the chest pain is localized over the sternum, and worsens during coughing. He has been coughing for 2 days, bringing up clear sputum. He also describes worsening lower extremity edema up to the knees, within the past 2 days. Denies fevers, chills, headache, nausea, vomiting, dysuria. ER course was notable for the following: - BP on arrival found to be 216/142, was given nitroglycerin --> repeat BP 216/136 --> given 10 hydralazine iv --> repeat systolic 170s - Lasix 40 iv push - U/S revealing B lines and pleural effusion - CXR revealing pulmonary vascular congestion PAST MEDICAL HISTORY: NIDDM Hypertension Hyperlipidemia CAD, hx [place]; stent placement x3 HFpEF (ECHO 2019 with EF 55%) Stable AAA (last measured at 3.9 cm) CKD, Stage 3 CVA, TIA without residual neuro dysfunction Polysubstance abuse: cocaine, alcohol PAST SURGICAL HISTORY: L testicular torsion repair Stent placement x3 Carotid endarterectomy 2019 Social History: Smokin cigarettes/day Drugs: Cocaine use ~3x / week Allergies IRMA Inhibitors Allergy (Verified 11/24/19 17:08) HOME MEDICATIONS: Home Medications Medication Instructions Recorded Fluticasone Propionate [Flovent 2 puff IH BID 06/21/19 Hfa] Albuterol 2.5/Ipratropium 0.5 1 amp NEB TID PRN #10 amp 09/01/19 [Duoneb -] Albuterol Sulfate Inhaler - 1 - 2 inh PO Q4H PRN #2 inhaler 09/01/19 [Ventolin HFA Inhaler -] Aspirin Coated [Ecotrin -] 81 mg PO DAILY #30 tablet.ec 09/01/19 Budesonide/Formeterol Fumarate 1 inh PO BID #1 cannister 09/01/19 [SYMBICORT 80/4.5mcg -] Ergocalciferol (Vitamin D2) 50,000 unit PO FR #30 cap 09/01/19 [Vitamin D2] Hydralazine HCl 100 mg PO TID #90 tablet 09/01/19 Labetalol HCl [Normodyne -] 400 mg PO TID #90 tablet 09/01/19 Metformin HCl [Glucophage] 1,000 mg PO BID #60 tablet 09/01/19 Miscellaneous Medical Supply 1 each ASDIR #1 misc 09/01/19 [Outpatient Order] Miscellaneous Medical Supply 1 each ASDIR #1 misc 09/01/19 [Outpatient Order] Nebulizer and Compressor [[place] 1 each PRN #1 each 09/01/19 Choice Nebulizer] Nifedipine ER [Procardia XL -] 120 mg PO DAILY #60 tab.er.24 09/01/19 Tamsulosin HCl [Flomax -] 0.4 mg PO DAILY@0830 #30 cap.er.24h 09/01/19 Atorvastatin Ca [Lipitor] 40 mg PO HS #30 tablet 10/22/19 Budesonide/Formeterol Fumarate 1 puff IH BID #1 inhaler 10/22/19 [SYMBICORT 80/4.5mcg -] Clopidogrel Bisulfate [Plavix] 75 mg PO DAILY #30 tablet 10/22/19 Furosemide [Lasix -] 40 mg PO BID #60 tablet 10/22/19 Glipizide Xl [Glucotrol Xl -] 2.5 mg PO DAILY #30 tab.sr 10/22/19 Labetalol HCl [Normodyne -] 400 mg PO TID #90 tablet 10/22/19 Spironolactone [Aldactone -] 50 mg PO BID #60 tablet 10/22/19 hydrALAZINE HCL [Apresoline -] 100 mg PO TID #90 tablet 10/22/19 Lidocaine 5% Patch [Lidoderm -] 1 patch TP DAILY@1900 #30 patch 10/23/19 REVIEW OF SYSTEMS SEE HPI PHYSICAL EXAMINATION Vital Signs - 24 hr 11/24/19 11/24/19 11/24/19 17:10 17:19 18:15 Temperature 98.5 F Pulse Rate 117 H Pulse Rate [ 111 H 104 H Right Apical] Respiratory 28 H 26 H 30 H Rate Blood Pressure 216/142 H Blood Pressure 213/136 H 206/136 H [Left Arm] O2 Sat by Pulse 93 L 93 L 99 Oximetry (%) 11/24/19 11/24/19 18:41 19:16 Temperature Pulse Rate Pulse Rate [ 103 H 102 H Right Apical] Respiratory 36 H 30 H Rate Blood Pressure Blood Pressure 172/127 H 177/112 H [Left Arm] O2 Sat by Pulse 100 100 Oximetry (%) GENERAL: Awake, alert, and fully oriented, in no acute distress. HEAD: Normal with no signs of trauma. EYES: Pupils equal, round and reactive to light, extraocular movements intact, sclera anicteric EARS, NOSE, THROAT: Ears normal, nares patent, oropharynx clear without exudates. NECK: Normal range of motion, supple without lymphadenopathy LUNGS: Crackles at bases of both lungs; no accessory muscle use. HEART: Regular rate and rhythm, normal S1 and S2 without murmur, rub or gallop. ABDOMEN: Soft, diffuse tenderness to palpation, worst in RUQ. No guarding. LOWER EXTREMITIES: 2+ pulses, warm, well-perfused. No calf tenderness. B/l pitting edema to the knees with L leg more edemateous. NEUROLOGICAL: Cranial nerves II-XII intact. Normal speech. PSYCHIATRIC: Cooperative. Good eye contact. Appropriate mood and affect. Laboratory Results - last 24 hr 11/24/19 11/24/19 11/24/19 17:40 17:40 17:40 WBC 10.3 H RBC 3.61 L Hgb 11.6 L Hct 35.1 L MCV 97.1 H MCH 32.0 MCHC 33.0 RDW 14.8 Plt Count 282 D MPV 7.7 Absolute Neuts (auto) 7.7 Neutrophils % 74.2 Lymphocytes % 14.2 Monocytes % 9.8 Eosinophils % 1.1 Basophils % 0.7 Nucleated RBC % 0 PT with INR 12.80 INR 1.08 PTT (Actin FS) 31.7 Sodium 136 Potassium 5.0 Chloride 107 Carbon Dioxide 20 L Anion Gap 9 BUN 18.1 H Creatinine 1.6 H Est GFR (CKD-EPI)AfAm 54.23 Est GFR (CKD-EPI)NonAf 46.79 Random Glucose 125 H Calcium 8.8 Magnesium 2.3 Total Bilirubin 1.2 H AST 42 H ALT 36 Alkaline Phosphatase 176 H Creatine Kinase 156 Creatine Kinase Index 1.1 CK-MB (CK-2) 1.8 Troponin I < 0.02 B-Natriuretic Peptide 7842.2 H Total Protein 8.0 Albumin 3.3 L ASSESSMENT/PLAN: Mr. Tank Deng is a 59 year old man with PMH of HFpEF, CAD (hx 3 [place]; PCI, stent placement), COPD, NIDDM, Stage III CKD, presenting with one day of chest pain and dyspnea, found to have BP 216/142 in ED, being admitted with hypertensive emergency. #Hypertensive Emergency - BP 216/142 on admission; given nitroglycierin and hydralazine, bringing it down to 170s systolic. - Evidence of end organ dysfunction: elevated BNP to above 7000 - Caution in lowering BP; monitor closely, goal keep diastolic <110 - Hydralazine 50 mg tid ordered - Hold spironolactone until f/u bmp, as potassium on admission was at 5 #Acute on Chronic diastolic heart failure - Likely secondary to chronically uncontrolled hypertension (hasn't taken meds in 3 days) - Patient is fluid overloaded: Crackles, B/l LE edema, ascites - Last ECHO revealing EF 55% (December 2018) - Start Lasix 40 bid - Daily I&Os - Cardiology consult placed #Chest pain - Pt reporting increased chest pain directly after coughing; likely muscular etiology - EKG: sinus tachycardia with premature atrial complexes, non-specific t wave abnormalities, possible LA enlargement - Troponin negative x2 #Transaminitis - AST mildy elevated 42; elevated alk phos 176, Tbili mildly elevated at 1.2 - Patient reporting mild RUQ pain - Consider abd US if pain persists - F/u am labs #COPD - Continue home Symbicort and Ventolin - Counseling on smoking cessation #Diabetes, T2 - BGMs - Sliding scale insulin during admission #CKD, Stage 3 - Creatinine on admission 1.6, appears to be at his baseline - Avoid nephrotoxic drugs #Polysubstance abuse - Patient states he has been using cocaine; currently using ~3x/wk - Avoid future beta ar use given recent cocaine - Provide counseling DVT prophylaxis: Heparin 5000 tid FEN - No standing fluids - Monitor electrolytes; f/u BMP - Low salt/diabetic diet Dispo: Tele FULL CODE Family Medical History Family History: As Documented Visit type - Emergency Visit Emergency Visit: Yes ED Registration Date: 11/24/19 Care time: The patient presented to the Emergency Department on the above date and was hospitalized for further evaluation of their emergent condition. - New Patient This patient is new to me today: Yes Date on this admission: 11/25/19 - Critical Care Critical Care patient: No ATTENDING PHYSICIAN STATEMENT I saw and evaluated the patient. I reviewed the resident's note and discussed the case with the resident. I agree with the resident's findings and plan as documented. SUBJECTIVE: OBJECTIVE: ASSESSMENT AND PLAN:
--- NOTE | 2019-11-24 22:07 | PN ---
Teaching Attending Note Name of Resident: Karen Strange ATTENDING PHYSICIAN STATEMENT I saw and evaluated the patient. I reviewed the resident's note and discussed the case with the resident. I agree with the resident's findings and plan as documented. SUBJECTIVE: 59 y/o M with PMHx of CKD III, CVA, CAD S/P [place] x3 s/p PCI stents, HTN, HLD, DMII, HFpEF (50-55% in 2019) ,COPD/Asthma, Polysubstance abuse AAA (3.6cm on CT 10/12), Carotid stenosis s/p CEA p/w HTN Urgency 2/2 medication non- compliance. OBJECTIVE: VS: Afeb HR 103 BP 206-172/136-127 PE: Gen : male in NAD Card: s1 s2 sys murmut Lungs: Dec b/s b/l Ext: no edema Abd: soft non tender no guarding, rigidity Labs: WBC: 10.3 H/H 11.6/35 Plt 282 BUN/Creat 18.1/1.6 (previously 1.5-1.7) ASSESSMENT AND PLAN: HTN Urgency HFpEF CAD S/P IA X3 s/p PCI HLD Carotid Stenosis s/p CEA Aldactone 50mg Reconcile dose and frequency -repeat K level first Hydralazine 100mg 3 times daily-repeat BP before resuming Lasix 40mg BID PO Lipitor 40mg Nightly PO Labetalol 400mg 3 times daily->200 mg and uptitrate Plavix 75mg daily-reconcile if still on ASA 81 mg daily COPD/Asthma Resume Symbicort 80/4.5 Pulmonary follow up as o/p Smoking cessation counseling CKD III Creatinine stable range Monitor BMP AAA (3.6cm on CT 10/12) Resume Serial follow up as o/p Polysubstance abuse Last used 1 month ago Counseling, SW referral DM II Glipizide 2.5mg daily-reconcile ISS Supp care: DVT Px HSQ 5K BID Diet Na controlled
[2019-11-24] MEDS ORDERED: LABETALOL HCL 200 MG TABLET (FP) PO ONE (23:45)
[2019-11-25 00:32] VITALS: BMI 32.6
[2019-11-25] MEDS: HEPARIN NA (PORCINE) 5,000 UNITS/ML 1ML VIAL SQ SCH ×4 (01:59→21:34)
--- OUTSIDE RECORDS SUMMARY | 2019-11-25 04:36 | XMS ---
:1960 Author Organization [facility] Care Team Providers Name Role Phone [facility], [id number] Unavailable Unavailable [facility], CNR9 Unavailable Unavailable [facility], MHAW9 Unavailable Unavailable Re-disclosure Warning The records that you are about to access may contain information from federally- assisted alcohol or drug abuse programs. If such information is present, then the following federally mandated warning applies: This information has been disclosed to you from records protected by federal confidentiality rules (42 CFR part 2). The federal rules prohibit you from making any further disclosure of this information unless further disclosure is expressly permitted by the written consent of the person to whom it pertains or as otherwise permitted by 42 CFR part 2. A general authorization for the release of medical or other information is NOT sufficient for this purpose. The Federal rules restrict any use of the information to criminally investigate or prosecute any alcohol or drug abuse patient.The records that you are about to access may contain highly sensitive health information, the redisclosure of which is protected by Article 27-F of the [facility] Public Health law. If you continue you may haveaccess to information: Regarding HIV / AIDS; Provided by facilities licensed or operated by the [facility] Office of Mental Health; or Provided by the [facility] Office for People With Developmental Disabilities. If such information is present, then the following [facility] mandated warning applies: This information has been disclosed to you from confidential records which are protected by state law. State law prohibits you from making any further disclosure of this information without the specific written consent of the person to whom it pertains, or as otherwise permitted by law. Any unauthorized further disclosure in violation of state law may result in a fine or fpc sentence or both. A general authorization for the release of medical or other information is NOT sufficient authorization for further disclosure. Encounters Encounter Providers Location Date Indications Data Source(s ) Outpatient Attender: CNR9 [facility] 09/01/2019 [facility] 04:48:44 PM [facility] EDT [facility]) Patient admitted. Outpatient Attender: MH9 [facility] 09/01/2019 04:48:41 PM [facility]) Patient admitted. Outpatient Attender: CN9 [facility] 09/01/2019 03:46:48 PM [facility] ([facility]) Patient admitted. Outpatient Attender: MHAW9 [facility] 09/01/2019 03:46:46 PM [facility] ([facility]) Patient admitted. Outpatient Attender: CN9 [facility] 09/01/2019 03:46:38 PM [facility] ([facility]) Patient admitted. Outpatient Attender: [facility] 09/01/2019 03:46:35 PM [facility]) Patient admitted. Outpatient Attender: CN9 [facility] 09[facility]01[facility]2019 03[facility]36:[facility]. Outpatient Attender: MHAW9 [facility] 09/01/2019 03:36:06 PM [facility]) Patient admitted. Outpatient Attender: SJ9 [facility] 04/12/2019 12:22:03 PM [facility] ([facility]) Patient admitted. Insurance Providers Payer name Policy type Policy ID Covered Covered alliance party's Policy P sameer / Coverage alliance party ID relationship to Dejesus Inf ormation type dejesus AFFINITY [id number] SP [id number] MEDICAID [id number] SP [id number] AFFINITY [id number] SP [id number] AFFINITY [id number] 1 [id number] E[place] KARLEE AFFINITY [id number] SP [id number] AFFINITY [id number] ESSENTIAL [place] Results ID Date Data Source [id number] 10/21/2019 08:10:00 AM EDT [facility] Name Value Range Interpretation Description Data Sup porting Code Source(s) Document(s ) SARS [facility] coronavirus 2 RNA This lab was ordered by [facility] and reported by [facility]. ID Date Data Source [id number] 08/30/2019 02:22:00 PM EDT [facility] Name Value Range Interpretation Description Data Sup porting Code Source(s) Document(s ) SARS [facility] coronavirus 2 RNA This lab was ordered by [facility] and reported by [facility]. ID Date Data Source [id number] 06/21/2019 05:00:00 PM EDT [facility] Name Value Range Interpretation Description Data Sup porting Code Source(s) Document(s ) SARS [facility] CORONAVIRUS 2 RNA This lab was ordered by [facility] and reported by [facility]. ID Date Data Source [id number] 05/31/2019 03:50:00 AM EDT [facility] Name Value Range Interpretation Description Data Sup porting Code Source(s) Document(s ) SARS [facility] CORONAVIRUS 2 RNA This lab was ordered by [facility] and reported by [facility]. Procedure
[2019-11-25] MEDS ORDERED: hydrALAZINE HCL 50 MG TABLET (FP) PO ONE (05:01)
[2019-11-25] MEDS: FUROSEMIDE 40 MG TABLET (FP) PO SCH ×2 (05:06→14:48)
[2019-11-25] MEDS ORDERED: LABETALOL HCL 100 MG TABLET (FP) PO SCH (06:00)
[2019-11-25] MEDS: INSULIN SLIDING SCALE (NOVOLOG) 1 VIAL SQ SCH ×4 (06:11→21:24)
[2019-11-25 06:52] LABS: BASO % 0.5 % (0-2.0); HEMATOCRIT 29.6 % (35.4-49); HEMOGLOBIN 9.8 GM/dL (11.7-16.9); LYMPH % 11.7 % (8-40); MCH 31.8 pg (25.7-33.7); MCHC 33.2 g/dl (32.0-35.9); MEAN PLT VOLUME 7.4 fl (7.5-11.1); MONO % 9.4 % (3.8-10.2); NEUT % 76.4 % (42.8-82.8); PLATELET COUNT 281 K/MM3 (134-434); RBC 3.08 M/mm3 (4.00-5.60); RDW 14.6 % (11.9-15.9); WHITE BLOOD COUNT 8.7 K/mm3 (4.0-10.0)
[2019-11-25 07:15] LABS: ALBUMIN 2.9 g/dl (3.4-5.0); BILIRUBIN,TOTAL 0.7 mg/dL (0.2-1); BLOOD UREA NITROGEN 20.3 mg/dL (7-18); CALCIUM 8.2 mg/dL (8.5-10.1); CREATININE 1.6 mg/dL (0.55-1.3); MAGNESIUM 2.2 mg/dL (1.8-2.4); PHOSPHOROUS 3.9 mg/dL (2.5-4.9); TOT PROT 6.8 g/dl (6.4-8.2)
--- NOTE | 2019-11-25 08:35 | CON.CARD ---
Consult Consult Specialty:: Cardiology Referred by:: Hospitalist Medicine Reason for Consultation:: HTN urgency - History of Present Illness Chief Complaint: HTN urgency History of Present Illness: Pt. is a 59 y.o. M w/ PMHx. of CKD(Stage III), asthma, CVA (no residual deficits), CAD( s/p [place] x 3, s/p PCI/stents), Non-ischemic cardiomyopathy, HTN, HLD, DM2, HFpEF( EF: 55 %), Polysubstance Abuse(Cocaine and ), COPD, Polysubstance Abuse(Cocaine and EtOH), AAA(3.9 cm), covid+ 06/20, carotis stenosis s/p CEA presented with chest pain, dyspnea, orthopnea referable to HTN Urgency 2/2 recurrent medication non- compliance (ran out of medications 3 days ago). - History Source History Provided By: Patient, Medical Record Limitations to Obtaining History: No Limitations - Past Medical History Cardio/Vascular: Yes: CAD (S/P PCI), HTN, Hyperlipdemia, [place], Other (dilated cardiomyopathy (nonischemic), LV systolic dysfunction, ) Pulmonary: Yes: Asthma, Bronchitis, Pneumonia Gastrointestinal: Yes: GERD Renal/: Yes: Renal Inusuff Musculoskeletal: Yes: Chronic low back pain Additional Medical History: Rightt achilles tendon tear. Rightt testicular torsion. Angioedema due to ACEI - Past Surgical History Past Surgical History: Yes: AAA Repair, Carotid Endarterectomy (right) - Alcohol/Substance Use Hx Alcohol Use: No Number of Drinks Daily: 3 (beer) History of Substance Use: reports: Cocaine - Smoking History Smoking history: Current every day smoker Have you smoked in the past 12 months: Yes Aproximately how many cigarettes per day: 3 If you are a former smoker, when did you quit?: smokes 2 x per week - Social History Usual Living Arrangement: Alone ADL: Independent Occupation: No working. On disability History of Recent Travel: No Home Medications - Allergies Allergies/Adverse Reactions: Allergies Allergy/AdvReac Type Severity Reaction Status Date / Time IRMA Inhibitors Allergy Verified 11/24/19 17:08 - Home Medications Home Medications: Ambulatory Orders Fluticasone Propionate [Flovent Hfa] 2 puff IH BID 06/21/19 Albuterol 2.5/Ipratropium 0.5 [Duoneb -] 1 amp NEB TID PRN #10 amp 07/09/20 Albuterol Sulfate Inhaler - [Ventolin HFA Inhaler -] 1 - 2 inh PO Q4H PRN #2 inhaler 09/01/19 Aspirin Coated [Ecotrin -] 81 mg PO DAILY #30 tablet.ec 09/01/19 Budesonide/Formeterol Fumarate [SYMBICORT 80/4.5mcg -] 1 inh PO BID #1 cannister 09/01/19 Ergocalciferol (Vitamin D2) [Vitamin D2] 50,000 unit PO FR #30 cap 09/01/19 Hydralazine HCl 100 mg PO TID #90 tablet 09/01/19 Labetalol HCl [Normodyne -] 400 mg PO TID #90 tablet 09/01/19 Metformin HCl [Glucophage] 1,000 mg PO BID #60 tablet 09/01/19 Miscellaneous Medical Supply [Outpatient Order] 1 each ASDIR #1 misc 09/01/19 Miscellaneous Medical Supply [Outpatient Order] 1 each ASDIR #1 misc 09/01/19 Nebulizer and Compressor [[place] Nebulizer] 1 each PRN #1 each 09/01/19 Nifedipine ER [Procardia XL -] 120 mg PO DAILY #60 tab.er.24 09/01/19 Tamsulosin HCl [Flomax -] 0.4 mg PO DAILY@30 #30 cap.er.24h 09/01/19 Atorvastatin Ca [Lipitor] 40 mg PO HS #30 tablet 10/22/19 Budesonide/Formeterol Fumarate [SYMBICORT 80/4.5mcg -] 1 puff IH BID #1 inhaler 10/22/19 Clopidogrel Bisulfate [Plavix] 75 mg PO DAILY #30 tablet 10/22/19 Furosemide [Lasix -] 40 mg PO BID #60 tablet 10/22/19 Glipizide Xl [Glucotrol Xl -] 2.5 mg PO DAILY #30 tab.sr 10/22/19 Labetalol HCl [Normodyne -] 400 mg PO TID #90 tablet 10/22/19 Spironolactone [Aldactone -] 50 mg PO BID #60 tablet 10/22/19 hydrALAZINE HCL [Apresoline -] 100 mg PO TID #90 tablet 10/22/19 Lidocaine 5% Patch [Lidoderm -] 1 patch TP DAILY@1900 #30 patch 10/23/19 Family Medical History Family Hx Diabetes: Sister Review of Systems - Review of Systems Cardiovascular: reports: Chest Pain Respiratory: reports: Exercise Intolerance, Orthopnea, SOB, SOB on Exertion Vital Signs: Vital Signs Temperature 97.8 F 11/25/19 06:00 Pulse Rate 96 H 11/25/19 06:00 Respiratory Rate 18 11/25/19 06:00 Blood Pressure 175/101 H 11/25/19 06:00 O2 Sat by Pulse Oximetry (%) 96 11/25/19 06:00 Constitutional: Yes: No Distress, Calm Neck: Yes: Supple Respiratory: Yes: Regular, Diminished, On Nasal O2 Gastrointestinal: Yes: Normal Bowel Sounds, Soft Cardiovascular: Yes: Regular Rate and Rhythm JVD: No Carotid Bruit: No Heart Sounds: Yes: S1, S2 Murmur: Yes: Systolic Murmur, Grade 1 Edema: No - Other Data Labs, Other Data: CBC, BMP 11/25/19 06:00 11/25/19 06:00 INR, PTT INR 1.08 (0.83-1.09) 11/24/19 17:40 Troponin, BNP 11/24/19 11/24/19 11/25/19 17:40 23:18 06:00 Troponin I < 0.02 0.02 < 0.02 B-Natriuretic Peptide 7842.2 H Troponin, BNP 11/24/19 11/24/19 11/25/19 17:40 23:18 06:00 Troponin I < 0.02 0.02 < 0.02 B-Natriuretic Peptide 7842.2 H NSR PAC Ejection Fraction %: LVEF > or = 40 % Imaging - Results Chest X-ray: Report Reviewed (Pulm venous congestion, left base ATX) Ultrasound: Report Reviewed (Neg LLE DVT) Problem List - Problems (1) Hypertensive urgency Code(s): I16.0 - HYPERTENSIVE URGENCY (2) Shortness of breath Code(s): R06.02 - SHORTNESS OF BREATH (3) CHF (congestive heart failure) Code(s): I50.9 - HEART FAILURE, UNSPECIFIED Qualifiers: Heart failure type: diastolic Heart failure chronicity: acute on chronic Qualified Code(s): I50.33 - Acute on chronic diastolic (congestive) heart failure (4) CAD (coronary artery disease) Code(s): I25.10 - ATHSCL HEART DISEASE OF [place] CORONARY ARTERY W/O ANG PCTRS Qualifiers: Coronary Disease-Associated Artery/Lesion type: nikolai artery [place] vs. transplanted heart: nikolai heart Associated angina: without angina Qualified Code(s): I25.10 - Atherosclerotic heart disease of [place] coronary artery without angina pectoris (5) CKD (chronic kidney disease) stage 3, GFR 30-59 ml/min Code(s): N18.3 - CHRONIC KIDNEY DISEASE, STAGE 3 (MODERATE) * DO NOT USE * (6) COPD (chronic obstructive pulmonary disease) Code(s): J44.9 - CHRONIC OBSTRUCTIVE PULMONARY DISEASE, UNSPECIFIED Qualifiers: COPD type: unspecified COPD Qualified Code(s): J44.9 - Chronic obstructive pulmonary disease, unspecified (7) Carotid stenosis, left Code(s): I65.22 - OCCLUSION AND STENOSIS OF LEFT CAROTID ARTERY (8) Cerebrovascular disease Code(s): I67.9 - CEREBROVASCULAR DISEASE, UNSPECIFIED (9) HTN (hypertension) Code(s): I10 - ESSENTIAL (PRIMARY) HYPERTENSION Qualifiers: Hypertension type: essential hypertension Qualified Code(s): I10 - Essential (primary) hypertension (10) Hyperlipidemia Code(s): E78.5 - HYPERLIPIDEMIA, UNSPECIFIED Qualifiers: Hyperlipidemia type: pure hypercholesterolemia Qualified Code(s): E78.00 - Pure hypercholesterolemia, unspecified (11) Polysubstance (excluding opioids) dependence Code(s): F19.20 - OTHER PSYCHOACTIVE SUBSTANCE DEPENDENCE, UNCOMPLICATED Assessment/Plan 10/20/2019: CTA: No PE, diffuse groundglass opacities and small bilateral effusions, 3.6 cm distal AAA, mediastinal adenopathy similar to previous 08/30/19 08/30/[address]: No PE, diffuse groundglass opacification, small bilateral effusions similar to previous 05/12/2019 01/03/2019 Echo: Mildly dilated, mild cLVH, low normal LVEF 50-55%, normal RV fxn, mild SHAHANA, mod-severe MR, mild-mod TR RVSP 58 mmHg, mild AR, UT 12/02/2018 Mri of brain: No acute stroke, old right posterior temporal cortical infarct 12/02/2018 Carotid ultrasound should left moderate stenosis and vacular surgery consult pending 12/02/2018 Echo: Normal LV size and fxn with mod cLVH, normal RV size and fxn, mild SHAHANA, mild MR, TR, AR 12/01/2018 Ct head right 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 Chest pain syndrome in a patient with known history of coronary artery disease post [place]/PCI/stent angina pectoris, no evidence of acute coronary syndrome 2. Acute on chronic diastolic heart failure 3. H/o COVID pneumonitis 4. History of COPD with intermittent acute exacerbations 5. Hypertensive cardiovascular disease, not at goal poor compliance with therapy administration 6. Type 2 DM c/b peripheral neuropathy 7. Hypercholesterolemia 8. History of cerebrovascular disease 9. History of carotid stenosis post right CEA 10. History of abdominal aortic aneurysm/4.3 cm infra-renal with mural thrombus 11. CKD Stage III 12. Anemia 13. History of polysubstance abuse (ETOH and Cocaine) 14. History of angioedema related to ACEI therapy 15. Distal AAA(3.6 cm) PLAN: 1. Ruled out KS, COVID PCR pending, continue Furosemide 40 IV bid and Spironolactone 50 bid with close monitoring of diuretic response, renal function and electrolytes 2. Continue Labetolol 400 tid 3. Continue Hydralazine 100 tid and Imdur 60 qd 4. Continue Procardia XL 120 qd (Counseled importance of compliance to therapy administration) 5. Continue ASA 81 qd and Plavix 75 qd 6. Continue Lipitor 40 qhs 7. Started empiric steroids, continue bronchodilators and O2 as needed as per the primary team 8. Counselled substance abuse and smoking cessation, importance of medication compliance 9. Not ideal cardiac cath candidate due to continued noncompliance with meds and f/u 10. Thank you for consultative opportunity
[2019-11-25] MEDS: ACETAMINOPHEN 500 MG TABLET (FP) PO PRN (09:58)
[2019-11-25] MEDS ORDERED: ENOXAPARIN NA (PORCINE) 40 MG/0.4 ML DISP.SYRIN SQ SCH (10:00)
--- NOTE | 2019-11-25 10:39 | EKG ---
Test Reason : Blood Pressure : / mmHG Vent. Rate : 112 BPM Atrial Rate : 112 BPM P-R Int : 164 ms QRS Dur : 096 ms QT Int : 354 ms P-R-T Axes : 058 031 073 degrees QTc Int : 483 ms SINUS TACHYCARDIA WITH PREMATURE ATRIAL COMPLEXES POSSIBLE LEFT ATRIAL ENLARGEMENT NONSPECIFIC T WAVE ABNORMALITY ABNORMAL ECG WHEN COMPARED WITH ECG OF 20-OCT-2019 19:33, PREMATURE ATRIAL COMPLEXES ARE NOW PRESENT Confirmed by LETTY JESUS MD ([id number]) on 11/25/2019 10:38:50 AM Referred By: Confirmed By:LETTY JESUS MD
[2019-11-25] MEDS ORDERED: methylPREDNISolone NA SUCC 40 MG/1 ML VIAL IVPUSH ONE ×2 (11:12→12:30)
[2019-11-25] MEDS ORDERED: hydrALAZINE HCL 20 MG/ML VIAL IVPUSH ONE (11:45)
[2019-11-25] MEDS ORDERED: MAGNESIUM 1GM/D5W 100ML - 100 ML IVPB IVPB ONE (11:45)
[2019-11-25] MEDS: ASPIRIN COATED 81 MG TABLET.EC PO SCH (11:55)
[2019-11-25] MEDS: SPIRONOLACTONE 25 MG TABLET PO SCH ×2 (11:55→21:29)
[2019-11-25] MEDS ORDERED: LABETALOL HCL 200 MG TABLET (FP) PO SCH ×2 (12:00→14:00)
--- NOTE | 2019-11-25 12:20 | PN ---
Teaching Attending Note Name of Resident: Harley Palacios ATTENDING PHYSICIAN STATEMENT I saw and evaluated the patient. I reviewed the resident's note and discussed the case with the resident. I agree with the resident's findings and plan as documented. SUBJECTIVE: Seen and examined at bedside. Patient's stating "I cannot breathe" and is sitti ng up on the bed. Vitals show oxygen 99%. Systolic blood pressure greater than 210. Exam significant for poor air movement and wheezing in both lungs. OBJECTIVE Last Vital Signs Temp Pulse Resp BP Pulse Ox 98.3 F 104 H 18 179/118 H 100 11/25/19 08:55 11/25/19 08:55 11/25/19 08:55 11/25/19 08:55 11/25/19 09:00 PE: Per resident note Labs/Imaging: reviewed ASSESSMENT/PLAN 59-year-old male past medical history of CKD stage III, asthma, CVA, CAD status post [place] x3 and multiple stents, nonischemic cardiomyopathy, HTN, HLD, DM 2, HFpEF, EtOH and cocaine abuse, COPD, AAA, culture positive in May presents with chest pain, dyspnea, and orthopnea after he ran out of medication 3 days ago #CHF exacerbation with acute hypoxic respiratory failure Cardiology on board: Appreciate recommendations Lasix IV 40mg daily Fluid restrict Daily weights K>4, Mg>2 #COPD exacerbation/airway hyperreactivity Poor air movement and wheezing bilaterally on exam -Start methyrlprednisolone 40mg q8h, taper tomorrow if clinically improved -duonebs q4h -IV mag given #Hypertensive urgency -restart home hydralazine 100mg TID -restart home spironolactone -restart imdur 60 -restart labetalol at 200mg TID, if tolerates increase to home dose 400mg TID tomorrow -holding home procardia XL 120mg qd. restart tomorrow if tolerates above regimen #Hx CAD, stroke, AAA -cont home asa, statin #Chest/Back Pain pt has tenerdness in R trapezius muscle without stiffness of the muscle. Describes it as lightning. Reports he snapped his head back the other day -likley muscle strain vs radiculopathy. Unlikely aortic dissection -trops neg x3
[2019-11-25] MEDS: hydrALAZINE HCL 50 MG TABLET (FP) PO SCH ×2 (13:08→21:30)
[2019-11-25] MEDS: ISOSORBIDE MONONITRATE 60 MG TAB.SR.24H (FP) PO SCH (13:08)
[2019-11-25] MEDS: LABETALOL HCL 200 MG TABLET (FP) PO SCH ×2 (13:08→21:29)
[2019-11-25 14:17] LABS: COCAINE, UR NEGATIVE ng/ml (CUTOFF=300); METHADONE, UR NEGATIVE ng/ml (CUTOFF=300); OPIATES, URI NEGATIVE ng/ml (CUTOFF=300); PHENCYCLIDINE,URINE NEGATIVE ng/ml (CUTOFF=25); URINE AMPHETAMINES NEGATIVE ng/ml (CUTOFF=500); URINE BARBITURATES NEGATIVE ng/ml (CUTOFF=200); URINE BENZODIAZEPINES NEGATIVE ng/ml (CUTOFF=200)
--- NOTE | 2019-11-25 17:27 | PN ---
Physical Exam: SUBJECTIVE: Patient seen and examined at bedside. Admitted for Hypertensive emergency. Patient with shortness of breath upon exam and expiratory wheezing; duonebs, solumedrol, and magnesium ordered. OBJECTIVE: Vital Signs Period Temp Pulse Resp BP Sys/Caal Pulse Ox Last 24 Hr 97.4 F-98.4 F 91-104 18-36 153-206/98-136 95-100 GENERAL: Mild distress. HEAD: Normal with no signs of trauma. EYES: EOMI Sclera clear NECK: No JVD appreciated LUNGS: Expiratory wheezing throughout HEART: RRR S1S2 ABDOMEN: Soft, NDNT EXTREMITIES: 2+ edema b/l Lower extremities NEUROLOGICAL: Cranial nerves II through XII grossly intact. PSYCH: Normal mood, normal affect. SKIN: Warm, dry, normal turgor, no rashes or lesions noted Laboratory Results - last 24 hr 11/24/19 11/24/19 11/24/19 17:30 17:40 17:40 WBC 10.3 H RBC 3.61 L Hgb 11.6 L Hct 35.1 L MCV 97.1 H MCH 32.0 MCHC 33.0 RDW 14.8 Plt Count 282 D MPV 7.7 Absolute Neuts (auto) 7.7 Neutrophils % 74.2 Lymphocytes % 14.2 Monocytes % 9.8 Eosinophils % 1.1 Basophils % 0.7 Nucleated RBC % 0 PT with INR 12.80 INR 1.08 PTT (Actin FS) 31.7 Sodium Potassium Chloride Carbon Dioxide Anion Gap BUN Creatinine Est GFR (CKD-EPI)AfAm Est GFR (CKD-EPI)NonAf Random Glucose Calcium Phosphorus Magnesium Total Bilirubin AST ALT Alkaline Phosphatase Creatine Kinase Creatine Kinase Index CK-MB (CK-2) Troponin I B-Natriuretic Peptide Total Protein Albumin Opiates Screen Methadone Screen Barbiturate Screen Phencyclidine Screen Ur Amphetamines Screen MDMA (Ecstasy) Screen Benzodiazepines Screen Cocaine Screen U Marijuana (THC) Screen COVID-19 (FRACISCO) Not detected 11/24/19 11/24/19 11/25/19 17:40 23:18 06:00 WBC RBC Hgb Hct MCV MCH MCHC RDW Plt Count MPV Absolute Neuts (auto) Neutrophils % Lymphocytes % Monocytes % Eosinophils % Basophils % Nucleated RBC % PT with INR INR PTT (Actin FS) Sodium 136 Potassium 5.0 Chloride 107 Carbon Dioxide 20 L Anion Gap 9 BUN 18.1 H Creatinine 1.6 H Est GFR (CKD-EPI)AfAm 54.23 Est GFR (CKD-EPI)NonAf 46.79 Random Glucose 125 H Calcium 8.8 Phosphorus Magnesium 2.3 Total Bilirubin 1.2 H AST 42 H ALT 36 Alkaline Phosphatase 176 H Creatine Kinase 156 Creatine Kinase Index 1.1 CK-MB (CK-2) 1.8 Troponin I < 0.02 0.02 < 0.02 B-Natriuretic Peptide 7842.2 H Total Protein 8.0 Albumin 3.3 L Opiates Screen Methadone Screen Barbiturate Screen Phencyclidine Screen Ur Amphetamines Screen MDMA (Ecstasy) Screen Benzodiazepines Screen Cocaine Screen U Marijuana (THC) Screen COVID-19 (FRACISCO) 11/25/19 11/25/19 11/25/19 06:00 06:00 13:20 WBC 8.7 RBC 3.08 L Hgb 9.8 L Hct 29.6 L D MCV 96.0 MCH 31.8 MCHC 33.2 RDW 14.6 Plt Count 281 MPV 7.4 L Absolute Neuts (auto) 6.6 Neutrophils % 76.4 Lymphocytes % 11.7 Monocytes % 9.4 Eosinophils % 2.0 D Basophils % 0.5 Nucleated RBC % 0 PT with INR INR PTT (Actin FS) Sodium 138 Potassium 4.0 Chloride 106 Carbon Dioxide 24 Anion Gap 8 BUN 20.3 H Creatinine 1.6 H Est GFR (CKD-EPI)AfAm 54.23 Est GFR (CKD-EPI)NonAf 46.79 Random Glucose 176 H Calcium 8.2 L Phosphorus 3.9 Magnesium 2.2 Total Bilirubin 0.7 AST 18 ALT 29 Alkaline Phosphatase 154 H Creatine Kinase Creatine Kinase Index CK-MB (CK-2) Troponin I B-Natriuretic Peptide Total Protein 6.8 Albumin 2.9 L Opiates Screen Negative Methadone Screen Negative Barbiturate Screen Negative Phencyclidine Screen Negative Ur Amphetamines Screen Negative MDMA (Ecstasy) Screen Negative Benzodiazepines Screen Negative Cocaine Screen Negative U Marijuana (THC) Screen Negative COVID-19 (FRACISCO) Active Medications Generic Name Dose Route Start Last Admin Trade Name Freq PRN Reason Stop Dose Admin Acetaminophen 1,000 mg 11/25/19 08:17 11/25/19 09:58 Tylenol - PO 1,000 mg Q6H PRN Administration PAIN LEVEL 1-5 Albuterol/Ipratropium 1 amp 11/25/19 16:30 Duoneb - NEB RQID PUSHPA Aspirin 81 mg 11/25/19 11:30 11/25/19 11:55 Ecotrin - PO 81 mg DAILY PUSHPA Administration Atorvastatin Calcium 40 mg 11/25/19 22:00 Lipitor - PO HS [facility] Budesonide/Formoterol Fumarate 1 puff 11/25/19 22:00 Symbicort 80/4.5mcg - IH BID PUSHPA Furosemide 40 mg 11/25/19 06:00 11/25/19 14:48 Lasix - PO 40 mg BID@0600,1400 PUSH[facility] Administration Heparin Sodium (Porcine) 5,000 unit 11/25/19 02:00 11/25/19 13:08 Heparin - SQ 5,000 unit TID PUSHPA Administration Hydralazine HCl 100 mg 11/25/19 12:00 11/25/19 13:08 Apresoline - PO 100 mg TID PUSH[facility] Administration Insulin Aspart 1 vial 11/25/19 07:00 11/25/19 16:55 Novolog Vial Sliding Scale - SQ 4 unit ACHS [facility] Administration Protocol Isosorbide Mononitrate 60 mg 11/25/19 12:00 11/25/19 13:08 Imdur - PO 60 mg DAILY P[facility] Administration Labetalol HCl 200 mg 11/25/19 12:00 11/25/19 13:08 Normodyne - PO 200 mg TID PUSH[facility] Administration Spironolactone 50 mg 11/25/19 11:30 11/25/19 11:55 Aldactone - PO 50 mg BID P[facility] Administration Tamsulosin HCl 0.4 mg 11/26/19 08:30 Flomax - PO DAILY@0830 [facility] ASSESSMENT/PLAN: Mr. Tank Ernandez is a 59 year old man with PMH of HFpEF, CAD (hx 3 KS; PCI, stent placement), COPD, NIDDM, Stage III CKD, presenting with one day of chest pain and dyspnea, found to have BP 216/142 in ED, being admitted with hypertensive emergency. #Hypertensive Emergency 2/2 medication noncompliance - BP 216/142 on admission - Evidence of end organ dysfunction: elevated BNP to above 7000 - Caution in lowering BP; monitor closely, goal keep diastolic <110 - Hydralazine 100 mg tid - Labetolol 200 BId. If tolerates, will restart 400 tid which is patient's home dose. - Continue Hydralazine 100 tid and Imdur 60 qd -Will hold Procardia XL 120 qd at this juncture and likely resume tomorrow if patient tolerates current anti-htn regimen. #Acute on chronic HFpEF - Likely in setting of chronically uncontrolled hypertension (hasn't taken meds in 3 days) - Last ECHO revealing EF 55% (December 2018) - Resume home lasix - Daily I&Os - Cardiology consult. Recs appreciated #COPD - Continue home Symbicort and Ventolin - Solumedrol 60 one time dose. Starting patient on solu-medrol 40mg q8h, taper tomorrow if clinically improved IV Magnesium given today #DM - BGMs - ISS #CKD, Stage 3 - Creatinine on admission 1.6, appears to be at his baseline - Avoid nephrotoxic drugs #PSA - Patient stating he hasn't used cocaine in 1 month. tox negative. DVT ppx Heparin 5000 tid FEN - No standing fluids - Monitor electrolytes; f/u BMP - Low salt/diabetic diet Dispo: Tele Visit type - Emergency Visit Emergency Visit: Yes ED Registration Date: 11/24/19 Care time: The patient presented to the Emergency Department on the above date and was hospitalized for further evaluation of their emergent condition. - New Patient This patient is new to me today: Yes Date on this admission: 11/25/19 - Critical Care Critical Care patient: No - Discharge Referral Referred to [facility] Med P.C.: No ATTENDING PHYSICIAN STATEMENT I saw and evaluated the patient. I reviewed the resident's note and discussed the case with the resident. I agree with the resident's findings and plan as documented. SUBJECTIVE: OBJECTIVE: ASSESSMENT AND PLAN:
[2019-11-25] MEDS: ATORVASTATIN CA 40 MG TABLET (FP) PO SCH (21:28)
[2019-11-25] MEDS: methylPREDNISolone NA SUCC 40 MG/1 ML VIAL IVPUSH SCH (21:38)
[2019-11-25] MEDS: BUDESONIDE/FORMETEROL FUMARATE 80/4.5 mcg INHALER IH SCH (21:48)
[2019-11-26] MEDS: ALBUTEROL SO4 2.5/IPRATROPIUM 0.5 INH SOL 3 ML VIAL.NEB. NEB SCH ×6 (00:05→21:24)
[2019-11-26] MEDS: methylPREDNISolone NA SUCC 40 MG/1 ML VIAL IVPUSH SCH ×3 (02:32→17:52)
[2019-11-26] MEDS: ACETAMINOPHEN 500 MG TABLET (FP) PO PRN (04:19)
[2019-11-26] MEDS: hydrALAZINE HCL 50 MG TABLET (FP) PO SCH ×3 (05:52→21:28)
[2019-11-26] MEDS: FUROSEMIDE 40 MG TABLET (FP) PO SCH ×2 (05:52→14:32)
[2019-11-26] MEDS: LABETALOL HCL 200 MG TABLET (FP) PO SCH ×3 (05:52→21:28)
[2019-11-26] MEDS: HEPARIN NA (PORCINE) 5,000 UNITS/ML 1ML VIAL SQ SCH ×3 (05:53→21:28)
[2019-11-26] MEDS: INSULIN SLIDING SCALE (NOVOLOG) 1 VIAL SQ SCH ×4 (06:03→21:29)
[2019-11-26 06:56] LABS: HEMATOCRIT 30.4 % (35.4-49); HEMOGLOBIN 9.7 GM/dL (11.7-16.9); MCH 30.9 pg (25.7-33.7); MCHC 31.8 g/dl (32.0-35.9); MEAN PLT VOLUME 7.3 fl (7.5-11.1); PLATELET COUNT 268 K/MM3 (134-434); RBC 3.14 M/mm3 (4.00-5.60); RDW 14.5 % (11.9-15.9); WHITE BLOOD COUNT 10.8 K/mm3 (4.0-10.0)
[2019-11-26 07:19] LABS: BLOOD UREA NITROGEN 25.4 mg/dL (7-18); CALCIUM 8.6 mg/dL (8.5-10.1); CREATININE 1.8 mg/dL (0.55-1.3); MAGNESIUM 2.5 mg/dL (1.8-2.4); PHOSPHOROUS 3.7 mg/dL (2.5-4.9); POTASSIUM 4.8 mmol/L (3.5-5.1)
[2019-11-26] MEDS: TAMSULOSIN HCL 0.4 MG CAP PO SCH (08:18)
--- NOTE | 2019-11-26 10:01 | PN ---
Progress Note, Physician Chief Complaint: Events noted Not in distress History of Present Illness: Patient was seen and examined. Awake and alert. Chart was reviewed Remains hypertensive up to 170's mmHg systolic Denies chest pain, SOB or palpitations - Current Medication List Current Medications: Active Medications Acetaminophen (Tylenol -) 1,000 mg PO Q6H PRN PRN Reason: PAIN LEVEL 1-5 Last Admin: 11/26/19 04:19 Dose: 1,000 mg Documented by: Albuterol/Ipratropium (Duoneb -) 1 amp NEB RQID [facility] Last Admin: 11/26/19 07:45 Dose: 1 amp Documented by: Aspirin (Ecotrin -) 81 mg PO DAILY [facility] Last Admin: 11/25/19 11:55 Dose: 81 mg Documented by: Atorvastatin Calcium (Lipitor -) 40 mg PO HS [facility] Last Admin: 11/25/19 21:28 Dose: 40 mg Documented by: Budesonide/Formoterol Fumarate (Symbicort 80/4.5mcg -) 1 puff IH BID [facility] Last Admin: 11/25/19 21:48 Dose: 1 puff Documented by: Furosemide (Lasix -) 40 mg PO BID@0600,1400 [facility] Last Admin: 11/26/19 05:52 Dose: 40 mg Documented by: Heparin Sodium (Porcine) (Heparin -) 5,000 unit SQ TID [facility] Last Admin: 11/26/19 05:53 Dose: 5,000 unit Documented by: Hydralazine HCl (Apresoline -) 100 mg PO TID [facility] Last Admin: 11/26/19 05:52 Dose: 100 mg Documented by: Insulin Aspart (Novolog Vial Sliding Scale -) 1 vial SQ [facility]; Protocol Last Admin: 11/26/19 06:03 Dose: 4 unit Documented by: Isosorbide Mononitrate (Imdur -) 60 mg PO DAILY [facility] Last Admin: 11/25/19 13:08 Dose: 60 mg Documented by: Labetalol HCl (Normodyne -) 200 mg PO TID [facility] Last Admin: 11/26/19 05:52 Dose: 200 mg Documented by: Methylprednisolone Sodium Succinate (Solu-Medrol -) 40 mg IVPUSH Q8H-IV [facility] Last Admin: 11/26/19 02:32 Dose: 40 mg Documented by: Spironolactone (Aldactone -) 50 mg PO BID [facility] Last Admin: 11/25/19 21:29 Dose: 50 mg Documented by: Tamsulosin HCl (Flomax -) 0.4 mg PO DAILY@0830 [facility] Last Admin: 11/26/19 08:18 Dose: 0.4 mg Documented by: - Objective Vital Signs: Vital Signs Temperature 97.6 F 11/26/19 09:06 Pulse Rate 77 11/26/19 09:06 Respiratory Rate 18 11/26/19 09:06 Blood Pressure 155/102 H 11/26/19 09:06 O2 Sat by Pulse Oximetry (%) 100 11/26/19 09:06 Neck: Yes: Supple Cardiovascular: Yes: Regular Rate and Rhythm, Murmur (Soft SM), S1, S2 Respiratory: Yes: CTA Bilaterally Gastrointestinal: Yes: Normal Bowel Sounds, Soft. No: Tenderness Edema: No Additional Findings/Remarks: - Review of Systems Constitutional: denies: Chills, Fever Cardiovascular: reports: Shortness of Breath. (+) Chest Pain, denies:Palpitations Respiratory: denies: Cough, (+) SOB. denies: Hemoptysis, Orthopnea, PND, Wheezing Gastrointestinal: denies: Abdominal Pain, Constipation, Diarrhea, Melena, Nausea, Rectal Bleeding, Vomiting Musculoskeletal: denies: Back Pain, Joint Pain Neurological: denies: Dizziness, Headache, Seizure, Syncope Labs: CBC, BMP 11/26/19 06:30 11/26/19 06:30 INR, PTT INR 1.08 (0.83-1.09) 11/24/19 17:40 Problem List - Problems (1) Hypertensive urgency Code(s): I16.0 - HYPERTENSIVE URGENCY (2) CHF (congestive heart failure) Code(s): I50.9 - HEART FAILURE, UNSPECIFIED Qualifiers: Heart failure type: diastolic Heart failure chronicity: acute on chronic Qualified Code(s): I50.33 - Acute on chronic diastolic (congestive) heart failure (3) AAA (abdominal aortic aneurysm) Code(s): I71.4 - ABDOMINAL AORTIC ANEURYSM, WITHOUT RUPTURE (4) Alcohol dependence Code(s): F10.20 - ALCOHOL DEPENDENCE, UNCOMPLICATED Qualifiers: Substance use status: unspecified alcohol-induced disorder Qualified Code(s): F10.29 - Alcohol dependence with unspecified alcohol-induced disorder (5) CAD (coronary artery disease) Code(s): I25.10 - ATHSCL HEART DISEASE OF [place] CORONARY ARTERY W/O ANG PCTRS Qualifiers: Coronary Disease-Associated Artery/Lesion type: [place] artery [place] vs. transplanted heart: [place] heart Associated angina: without angina Qualified Code(s): I25.10 - Atherosclerotic heart disease of [place] coronary artery without angina pectoris (6) CKD (chronic kidney disease) stage 3, GFR 30-59 ml/min Code(s): N18.3 - CHRONIC KIDNEY DISEASE, STAGE 3 (MODERATE) * DO NOT USE * (7) COPD (chronic obstructive pulmonary disease) Code(s): J44.9 - CHRONIC OBSTRUCTIVE PULMONARY DISEASE, UNSPECIFIED Qualifiers: COPD type: unspecified COPD Qualified Code(s): J44.9 - Chronic obstructive pulmonary disease, unspecified (8) Carotid stenosis, left Code(s): I65.22 - OCCLUSION AND STENOSIS OF LEFT CAROTID ARTERY (9) Cerebrovascular disease Code(s): I67.9 - CEREBROVASCULAR DISEASE, UNSPECIFIED (10) Cocaine abuse Code(s): F14.10 - COCAINE ABUSE, UNCOMPLICATED (11) Diabetes Code(s): E11.9 - TYPE 2 DIABETES MELLITUS WITHOUT COMPLICATIONS Qualifiers: Diabetes mellitus type: type 2 (12) Heart failure with reduced ejection fraction Code(s): I50.20 - UNSPECIFIED SYSTOLIC (CONGESTIVE) HEART FAILURE (13) History of myocardial infarction Code(s): I25.2 - OLD MYOCARDIAL INFARCTION (14) Hyperlipidemia Code(s): E78.5 - HYPERLIPIDEMIA, UNSPECIFIED Qualifiers: Hyperlipidemia type: pure hypercholesterolemia Qualified Code(s): E78.00 - Pure hypercholesterolemia, unspecified (15) Acute on chronic diastolic (congestive) heart failure Code(s): I50.33 - ACUTE ON CHRONIC DIASTOLIC (CONGESTIVE) HEART FAILURE Assessment/Plan 1. Chest pain syndrome in a patient with known history of coronary artery disease post NH/PCI/stent angina pectoris 2. Acute on chronic diastolic heart failure 3. History of COVID pneumonitis 4. History of COPD with intermittent acute exacerbations 5. Hypertensive cardiovascular disease, not at goal poor compliance with therapy administration 6. Type 2 DM and peripheral neuropathy 7. Hypercholesterolemia 8. History of cerebrovascular disease 9. History of carotid stenosis post right CEA 10. History of abdominal aortic aneurysm - 4.3 cm infra-renal with mural thrombus 11. CKD Stage III 12. Anemia 13. History of polysubstance abuse (ETOH and Cocaine) 14. History of angioedema related to ACEI therapy PLAN: 1. Continue Furosemide 40 mg PO BID and Spironolactone 50 mg BID with close monitoring of renal function and electrolytes 2. Continue Labetolol but may titrate up to 400 mg TID (increase initially to 300 mg TID) 3. Continue Hydralazine 100 mg TID and Imdur 60 mg QD 4. Reinitiate Procardia XL 120 mg QD (currently not on active medication list) 5. Continue ASA 81 mg QD and resume Plavix 75 mg QD 6. Continue Lipitor 40 mg QHS 7. Continue steroids, bronchodilators and O2 as needed 8. Counselled substance abuse and smoking cessation and importance of medication compliance 9. Not ideal cardiac cardiac cath candidate due to continued noncompliance with meds and follow up Further plans are to follow Nicholas Singletary MD
[2019-11-26] MEDS: ISOSORBIDE MONONITRATE 60 MG TAB.SR.24H (FP) PO SCH (10:52)
[2019-11-26] MEDS: ASPIRIN COATED 81 MG TABLET.EC PO SCH (10:52)
[2019-11-26] MEDS: SPIRONOLACTONE 25 MG TABLET PO SCH ×2 (10:52→21:27)
[2019-11-26] MEDS: BUDESONIDE/FORMETEROL FUMARATE 80/4.5 mcg INHALER IH SCH ×2 (10:53→21:29)
[2019-11-26] MEDS: NIFEdipine E.R. 90 MG TABLET PO SCH (11:01)
[2019-11-26] MEDS: CLOPIDOGREL BISULFATE 75 MG TABLET (FP) PO SCH (11:01)
--- NOTE | 2019-11-26 13:24 | CONSULT ---
Consult Consult Specialty:: Nephrology Reason for Consultation:: CKD - History of Present Illness Chief Complaint: chest pain and dyspnea History of Present Illness: Pt is a 59 year old male with pmhx of chf, ckd, cad, AAA, htn, hld, copd, DM, cva, cocaine and etoh abuse who presents to the ER with shortness of breath. He says that he ran out of all of his meds. He also complains of lower ext edema. He did have chest pain yesterday. He was found to have elevated behavioral health consultant today. He denies dysuria or hematuria. He has history of CKD. He has poor outpt follow up. He does complains of a productive cough. - History Source History Provided By: Patient, Medical Record - Past Medical History Cardio/Vascular: Yes: CAD (S/P PCI), HTN, Hyperlipdemia, [place], Other (dilated cardiomyopathy (nonischemic), LV systolic dysfunction, ) Pulmonary: Yes: Asthma, Bronchitis, Pneumonia Gastrointestinal: Yes: GERD Renal/: Yes: Renal Inusuff Musculoskeletal: Yes: Chronic low back pain Additional Medical History: Rightt achilles tendon tear. Rightt testicular torsion. Angioedema due to ACEI - Past Surgical History Past Surgical History: Yes: AAA Repair, Carotid Endarterectomy (right) - Alcohol/Substance Use Hx Alcohol Use: No Number of Drinks Daily: 3 (beer) History of Substance Use: reports: Cocaine - Smoking History Smoking history: Current every day smoker Have you smoked in the past 12 months: Yes Aproximately how many cigarettes per day: 3 If you are a former smoker, when did you quit?: smokes 2 x per week - Social History Usual Living Arrangement: Alone ADL: Independent Occupation: No working. On disability History of Recent Travel: No Home Medications - Allergies Allergies/Adverse Reactions: Allergies Allergy/AdvReac Type Severity Reaction Status Date / Time IRMA Inhibitors Allergy Verified 11/24/19 17:08 - Home Medications Home Medications: Ambulatory Orders Fluticasone Propionate [Flovent Hfa] 2 puff IH BID 06/21/19 Albuterol 2.5/Ipratropium 0.5 [Duoneb -] 1 amp NEB TID PRN #10 amp 09/01/19 Albuterol Sulfate Inhaler - [Ventolin HFA Inhaler -] 1 - 2 inh PO Q4H PRN #2 inhaler 09/01/19 Aspirin Coated [Ecotrin -] 81 mg PO DAILY #30 tablet.ec 09/01/19 Budesonide/Formeterol Fumarate [SYMBICORT 80/4.5mcg -] 1 inh PO BID #1 cannister 09/01/19 Ergocalciferol (Vitamin D2) [Vitamin D2] 50,000 unit PO FR #30 cap 09/01/19 Hydralazine HCl 100 mg PO TID #90 tablet 09/01/19 Labetalol HCl [Normodyne -] 400 mg PO TID #90 tablet 09/01/19 Metformin HCl [Glucophage] 1,000 mg PO BID #60 tablet 09/01/19 Miscellaneous Medical Supply [Outpatient Order] 1 each ASDIR #1 misc 09/01/19 Miscellaneous Medical Supply [Outpatient Order] 1 each ASDIR #1 misc 09/01/19 Nebulizer and Compressor [[place] Choice Nebulizer] 1 each PRN #1 each 09/01/19 Nifedipine ER [Procardia XL -] 120 mg PO DAILY #60 tab.er.24 09/01/19 Tamsulosin HCl [Flomax -] 0.4 mg PO DAILY@0830 #30 cap.er.24h 09/01/19 Atorvastatin Ca [Lipitor] 40 mg PO HS #30 tablet 10/22/19 Budesonide/Formeterol Fumarate [SYMBICORT 80/4.5mcg -] 1 puff IH BID #1 inhaler 10/22/19 Clopidogrel Bisulfate [Plavix] 75 mg PO DAILY #30 tablet 10/22/19 Furosemide [Lasix -] 40 mg PO BID #60 tablet 10/22/19 Glipizide Xl [Glucotrol Xl -] 2.5 mg PO DAILY #30 tab.sr 10/22/19 Labetalol HCl [Normodyne -] 400 mg PO TID #90 tablet 10/22/19 Spironolactone [Aldactone -] 50 mg PO BID #60 tablet 10/22/19 hydrALAZINE HCL [Apresoline -] 100 mg PO TID #90 tablet 10/22/19 Lidocaine 5% Patch [Lidoderm -] 1 patch TP DAILY@1900 #30 patch 10/23/19 Family Medical History Family History: Denies Family Hx Diabetes: Sister Review of Systems - Review of Systems Constitutional: reports: Malaise Eyes: reports: No Symptoms HENT: reports: No Symptoms Neck: reports: No Symptoms Cardiovascular: reports: Chest Pain, Edema Respiratory: reports: SOB on Exertion, Wheezing Gastrointestinal: reports: No Symptoms Genitourinary: reports: No Symptoms Musculoskeletal: reports: No Symptoms Integumentary: reports: No Symptoms Neurological: reports: No Symptoms Endocrine: reports: No Symptoms Hematology/Lymphatic: reports: No Symptoms Psychiatric: reports: No Symptoms Physical Exam Vital Signs: Vital Signs Temperature 97.6 F 11/26/19 09:06 Pulse Rate 77 11/26/19 09:06 Respiratory Rate 18 11/26/19 09:06 Blood Pressure 155/102 H 11/26/19 09:06 O2 Sat by Pulse Oximetry (%) 100 11/26/19 09:06 Constitutional: Yes: Calm Eyes: Yes: Conjunctiva Clear HENT: Yes: Atraumatic Neck: Yes: Supple Cardiovascular: Yes: S1, S2 Respiratory: Yes: On Nasal O2, Rhonchi, Wheezes Gastrointestinal: Yes: Soft Musculoskeletal: Yes: WNL Edema: Yes Edema: LLE: 2+, RLE: 2+ Neurological: Yes: Oriented Psychiatric: Yes: Oriented Labs: CBC, BMP 11/26/19 06:30 11/26/19 06:30 Selected Entries 10/20/19 10/21/19 10/21/19 19:31 13:09 14:00 Blood Pressure 208/134 H 150/86 150/86 10/21/19 17:01 Blood Pressure 142/86 Laboratory Tests 10/20/19 10/21/19 10/21/19 20:05 06:50 08:10 Creatinine 1.5 H Urine Protein Trace Urine Blood Negative COVID-19 ([facility]) Pending SARS-CoV-2 Ab Interp 10/21/19 10/21/19 10/24/19 09:28 09:28 07:30 Creatinine 1.4 H 1.5 H Urine Protein Urine Blood COVID-19 ([facility]) SARS-CoV-2 Ab Interp Reactive 11/24/19 11/24/19 11/25/19 17:30 17:40 06:00 Creatinine 1.6 H 1.6 H Urine Protein Urine Blood COVID-19 ([facility]) Not detected SARS-CoV-2 Ab Interp 11/26/19 06:30 Creatinine 1.8 H Urine Protein Urine Blood COVID-19 ([facility]) SARS-CoV-2 Ab Interp Imaging - Results Chest X-ray: Report Reviewed Ultrasound: Report Reviewed Problem List - Problems (1) Chest pain Code(s): R07.9 - CHEST PAIN, UNSPECIFIED (2) Hypertensive urgency Code(s): I16.0 - HYPERTENSIVE URGENCY (3) Shortness of breath Code(s): R06.02 - SHORTNESS OF BREATH (4) CHF (congestive heart failure) Code(s): I50.9 - HEART FAILURE, UNSPECIFIED Qualifiers: Heart failure type: diastolic Heart failure chronicity: acute on chronic Qualified Code(s): I50.33 - Acute on chronic diastolic (congestive) heart failure (5) AAA (abdominal aortic aneurysm) Code(s): I71.4 - ABDOMINAL AORTIC ANEURYSM, WITHOUT RUPTURE (6) CKD (chronic kidney disease) stage 3, GFR 30-59 ml/min Code(s): N18.3 - CHRONIC KIDNEY DISEASE, STAGE 3 (MODERATE) * DO NOT USE * Assessment/Plan Current Medications Generic Name Dose Route Start Last Admin Trade Name Freq PRN Reason Stop Dose Admin Acetaminophen 1,000 mg 11/25/19 08:17 11/26/19 04:19 Tylenol - PO 1,000 mg Q6H PRN Administration PAIN LEVEL 1-5 Albuterol/Ipratropium 1 amp 11/25/19 16:30 11/26/19 11:35 Duoneb - NEB 1 amp RQID PUSHPA Administration Aspirin 81 mg 11/25/19 11:30 11/26/19 10:52 Ecotrin - PO 81 mg DAILY PUSH[facility] Administration Atorvastatin Calcium 40 mg 11/25/19 22:00 11/25/19 21:28 Lipitor - PO 40 mg HS PUSHPA Administration Budesonide/Formoterol Fumarate 1 puff 11/25/19 22:00 11/26/19 10:53 Symbicort 80/4.5mcg - IH 1 puff BID PUSH[facility] Administration Clopidogrel Bisulfate 75 mg 11/26/19 10:45 11/26/19 11:01 Plavix - PO 75 mg DAILY PUSH[facility] Administration Furosemide 40 mg 11/25/19 06:00 11/26/19 05:52 Lasix - PO 40 mg BID@0600,1400 P[facility] Administration Heparin Sodium (Porcine) 5,000 unit 11/25/19 02:00 11/26/19 05:53 Heparin - SQ 5,000 unit TID PUSH[facility] Administration Hydralazine HCl 100 mg 11/25/19 12:00 11/26/19 05:52 Apresoline - PO 100 mg TID P[facility] Administration Insulin Aspart 1 vial 11/25/19 07:00 11/26/19 11:05 Novolog Vial Sliding Scale - SQ 8 unit ACHS P[facility] Administration Protocol Isosorbide Mononitrate 60 mg 11/25/19 12:00 11/26/19 10:52 Imdur - PO 60 mg DAILY P[facility] Administration Labetalol HCl 300 mg 11/26/19 10:05 Normodyne - PO TID PUSHPA Methylprednisolone Sodium Succinate 40 mg 11/25/19 20:30 11/26/19 10:52 Solu-Medrol - IVPUSH 40 mg Q8H-IV [facility] Administration Nifedipine 90 mg 11/26/19 10:15 11/26/19 11:01 Procardia Xl - PO 90 mg DAILY [facility] Administration Spironolactone 50 mg 11/25/19 11:30 11/26/19 10:52 Aldactone - PO 50 mg BID P[facility] Administration Tamsulosin HCl 0.4 mg 11/26/19 08:30 11/26/19 08:18 Flomax - PO 0.4 mg DAILY@0830 PUSH[facility] Administration Impression 1. CKD with acute component 2. htn 3. dm 4. AAA 5. hx of covid 6. chest pain 7. hx etoh abuse 8. cocaine use 9. chest pain Plan - cont to monitor bp - cont lasix - repeat labs in am - renal ultrasound reviewed - pt will likely have progression of his kidney disease due to non compliance - check ua - check prt to behavioral health consultant ration - will start arb once renal function stable
[2019-11-26 15:38] LABS: EPI CELLS 4 /uL (0-25.1); HYALINE CASTS 0 /uL (0-3.1); URINE APPEARANCE CLEAR; URINE BACTERIA 8 /uL (0-1359); URINE BILIRUBIN NEGATIVE (NEGATIVE); URINE COLOR YELLOW; URINE GLUCOSE (UA) 2+ (NEGATIVE); URINE KETONE NEGATIVE (NEGATIVE); URINE LEUK ESTERASE NEGATIVE (NEGATIVE); URINE NITRITE NEGATIVE (NEGATIVE); URINE PROTEIN 2+ (NEGATIVE); URINE RBC 4 /uL (0-23.9); URINE UROBILINOGEN 0.2 mg/dL (0.2-1.0); URINE WBC 2 /uL (0-25.8)
[2019-11-26] MEDS: ATORVASTATIN CA 40 MG TABLET (FP) PO SCH (21:28)
--- NOTE | 2019-11-26 21:47 | PN ---
Physical Exam: SUBJECTIVE: Patient seen and examined at bedside, feeling better, BP improving. OBJECTIVE: Vital Signs Period Temp Pulse Resp BP Sys/Caal Pulse Ox Last 24 Hr 97.6 F-98.8 F 75-88 18-20 140-174/83-112 97-100 GENERAL: NAD, AAox3 HEAD: Normal with no signs of trauma. EYES: EOMI Sclera clear NECK: No JVD appreciated LUNGS: faint end-expiratory wheezing b/l, no increased WOB HEART: RRR S1S2 ABDOMEN: Soft, NDNT EXTREMITIES: 2+ edema b/l Lower extremities NEUROLOGICAL: Cranial nerves II through XII grossly intact. PSYCH: Normal mood, normal affect. SKIN: Warm, dry, normal turgor, no rashes or lesions noted Laboratory Results - last 24 hr 11/26/19 11/26/19 11/26/19 06:30 06:30 15:15 WBC 10.8 H RBC 3.14 L Hgb 9.7 L Hct 30.4 L MCV 97.0 H MCH 30.9 MCHC 31.8 L RDW 14.5 Plt Count 268 MPV 7.3 L Sodium 134 L Potassium 4.8 Chloride 104 Carbon Dioxide 24 Anion Gap 7 L BUN 25.4 H Creatinine 1.8 H Est GFR (CKD-EPI)AfAm 47.03 Est GFR (CKD-EPI)NonAf 40.58 POC Glucometer Random Glucose 242 H Calcium 8.6 Phosphorus 3.7 Magnesium 2.5 H Urine Color Yellow Urine Appearance Clear Urine pH 5.0 Ur Specific [place] 1.011 Urine Protein 2+ H Urine Glucose (UA) 2+ H Urine Ketones Negative Urine Blood Negative Urine Nitrite Negative Urine Bilirubin Negative Urine Urobilinogen 0.2 Ur Leukocyte Esterase Negative Urine WBC (Auto) 2 Urine RBC (Auto) 4 Urine Casts (Auto) 0 U Epithel Cells (Auto) 4 Urine Bacteria (Auto) 8 11/26/19 21:14 WBC RBC Hgb Hct MCV MCH MCHC RDW Plt Count MPV Sodium Potassium Chloride Carbon Dioxide Anion Gap BUN Creatinine Est GFR (CKD-EPI)AfAm Est GFR (CKD-EPI)NonAf POC Glucometer 251 Random Glucose Calcium Phosphorus Magnesium Urine Color Urine Appearance Urine pH Ur Specific [place] Urine Protein Urine Glucose (UA) Urine Ketones Urine Blood Urine Nitrite Urine Bilirubin Urine Urobilinogen Ur Leukocyte Esterase Urine WBC (Auto) Urine RBC (Auto) Urine Casts (Auto) U Epithel Cells (Auto) Urine Bacteria (Auto) Active Medications Generic Name Dose Route Start Last Admin Trade Name Freq PRN Reason Stop Dose Admin Acetaminophen 1,000 mg 11/25/19 08:17 11/26/19 04:19 Tylenol - PO 1,000 mg Q6H PRN Administration PAIN LEVEL 1-5 Albuterol/Ipratropium 1 amp 11/25/19 16:30 11/26/19 21:24 Duoneb - NEB Not Given RQID PUSHPA Aspirin 81 mg 11/25/19 11:30 11/26/19 10:52 Ecotrin - PO 81 mg DAILY PUSHPA Administration Atorvastatin Calcium 40 mg 11/25/19 22:00 11/26/19 21:28 Lipitor - PO 40 mg HS PUSHPA Administration Budesonide/Formoterol Fumarate 1 puff 11/25/19 22:00 11/26/19 21:29 Symbicort 80/4.5mcg - IH 1 puff BID PUSHPA Administration Clopidogrel Bisulfate 75 mg 11/26/19 10:45 11/26/19 11:01 Plavix - PO 75 mg DAILY P[facility] Administration Furosemide 40 mg 11/25/19 06:00 11/26/19 14:32 Lasix - PO 40 mg BID@0600,1400 P[facility] Administration Heparin Sodium (Porcine) 5,000 unit 11/25/19 02:00 11/26/19 21:28 Heparin - SQ 5,000 unit TID PUSHPA Administration Hydralazine HCl 100 mg 11/25/19 12:00 11/26/19 21:28 Apresoline - PO 100 mg TID PUSHPA Administration Insulin Aspart 1 vial 11/25/19 07:00 11/26/19 21:29 Novolog Vial Sliding Scale - SQ 6 unit ACHS PUSHPA Administration Protocol Isosorbide Mononitrate 60 mg 11/25/19 12:00 11/26/19 10:52 Imdur - PO 60 mg DAILY P[facility] Administration Labetalol HCl 300 mg 11/26/19 10:05 11/26/19 21:28 Normodyne - PO 300 mg TID PUSHPA Administration Methylprednisolone Sodium Succinate 40 mg 11/25/19 20:30 11/26/19 17:52 Solu-Medrol - IVPUSH 40 mg Q8H-IV PUSHPA Administration Nifedipine 90 mg 11/26/19 10:15 11/26/19 11:01 Procardia Xl - PO 90 mg DAILY P[facility] Administration Spironolactone 50 mg 11/25/19 11:30 11/26/19 21:27 Aldactone - PO 50 mg BID P[facility] Administration Tamsulosin HCl 0.4 mg 11/26/19 08:30 11/26/19 08:18 Flomax - PO 0.4 mg DAILY@0830 P[facility] Administration ASSESSMENT/PLAN: 59 M HTN emergency HLD CAD s/p stents BPH HFpEF COPD Asthma Obesity Medication non-compliance Plan: Cont. PO BP medications obtain renal US send renin/sona levels will eventually need resistant HTN workup w/ renal doppler to r/o PURVI Utox negative Renal evaluation Cardiology following DVT ppx: Heparin SC Visit type - Emergency Visit Emergency Visit: Yes ED Registration Date: 11/24/19 Care time: The patient presented to the Emergency Department on the above date and was hospitalized for further evaluation of their emergent condition. - New Patient This patient is new to me today: Yes Date on this admission: 11/26/19 - Critical Care Critical Care patient: No - Discharge Referral Referred to [facility] Med P.C.: No
[2019-11-27] MEDS: methylPREDNISolone NA SUCC 40 MG/1 ML VIAL IVPUSH SCH ×3 (01:40→21:54)
[2019-11-27] MEDS: FUROSEMIDE 40 MG TABLET (FP) PO SCH ×2 (05:23→13:47)
[2019-11-27] MEDS: hydrALAZINE HCL 50 MG TABLET (FP) PO SCH ×3 (05:23→21:54)
[2019-11-27] MEDS: HEPARIN NA (PORCINE) 5,000 UNITS/ML 1ML VIAL SQ SCH ×3 (05:23→21:54)
[2019-11-27] MEDS: LABETALOL HCL 200 MG TABLET (FP) PO SCH ×4 (05:23→22:17)
[2019-11-27] MEDS: INSULIN SLIDING SCALE (NOVOLOG) 1 VIAL SQ SCH ×4 (06:09→21:54)
[2019-11-27 07:12] LABS: BASO % 0.1 % (0-2.0); HEMATOCRIT 28.9 % (35.4-49); HEMOGLOBIN 9.3 GM/dL (11.7-16.9); LYMPH % 2.7 % (8-40); MCH 31.4 pg (25.7-33.7); MCHC 32.4 g/dl (32.0-35.9); MEAN PLT VOLUME 7.5 fl (7.5-11.1); NEUT % 95.2 % (42.8-82.8); PLATELET COUNT 310 K/MM3 (134-434); RBC 2.98 M/mm3 (4.00-5.60); RDW 14.5 % (11.9-15.9); WHITE BLOOD COUNT 12.6 K/mm3 (4.0-10.0)
[2019-11-27 07:41] LABS: BILIRUBIN,TOTAL 0.5 mg/dL (0.2-1); BLOOD UREA NITROGEN 28.8 mg/dL (7-18); CREATININE 1.7 mg/dL (0.55-1.3); POTASSIUM 5.2 mmol/L (3.5-5.1)
[2019-11-27] MEDS: ALBUTEROL SO4 2.5/IPRATROPIUM 0.5 INH SOL 3 ML VIAL.NEB. NEB SCH ×4 (07:50→20:20)
[2019-11-27] MEDS: TAMSULOSIN HCL 0.4 MG CAP PO SCH (08:50)
[2019-11-27] MEDS: NIFEdipine E.R. 90 MG TABLET PO SCH (09:01)
[2019-11-27] MEDS: SPIRONOLACTONE 25 MG TABLET PO SCH (09:02)
[2019-11-27] MEDS: ISOSORBIDE MONONITRATE 60 MG TAB.SR.24H (FP) PO SCH (09:02)
[2019-11-27] MEDS: ASPIRIN COATED 81 MG TABLET.EC PO SCH (09:02)
[2019-11-27] MEDS: BUDESONIDE/FORMETEROL FUMARATE 80/4.5 mcg INHALER IH SCH ×2 (09:02→22:18)
[2019-11-27] MEDS: CLOPIDOGREL BISULFATE 75 MG TABLET (FP) PO SCH (09:02)
--- NOTE | 2019-11-27 09:05 | PN ---
Progress Note, Physician Chief Complaint: Events noted Not in distress History of Present Illness: Patient was seen and examined. Awake and alert. Chart was reviewed BP a little better today but still in 150's systolic Denies chest pain, SOB or palpitations - Current Medication List Current Medications: Active Medications Acetaminophen (Tylenol -) 1,000 mg PO Q6H PRN PRN Reason: PAIN LEVEL 1-5 Last Admin: 11/26/19 04:19 Dose: 1,000 mg Documented by: Albuterol/Ipratropium (Duoneb -) 1 amp NEB RQID [facility] Last Admin: 11/26/19 21:24 Dose: Not Given Documented by: Aspirin (Ecotrin -) 81 mg PO DAILY [facility] Last Admin: 11/26/19 10:52 Dose: 81 mg Documented by: Atorvastatin Calcium (Lipitor -) 40 mg PO HS [facility] Last Admin: 11/26/19 21:28 Dose: 40 mg Documented by: Budesonide/Formoterol Fumarate (Symbicort 80/4.5mcg -) 1 puff IH BID [facility] Last Admin: 11/26/19 21:29 Dose: 1 puff Documented by: Clopidogrel Bisulfate (Plavix -) 75 mg PO DAILY [facility] Last Admin: 11/26/19 11:01 Dose: 75 mg Documented by: Furosemide (Lasix -) 40 mg PO BID@0600,1400 [facility] Last Admin: 11/27/19 05:23 Dose: 40 mg Documented by: Heparin Sodium (Porcine) (Heparin -) 5,000 unit SQ TID [facility] Last Admin: 11/27/19 05:23 Dose: 5,000 unit Documented by: Hydralazine HCl (Apresoline -) 100 mg PO TID [facility] Last Admin: 11/27/19 05:23 Dose: 100 mg Documented by: Insulin Aspart (Novolog Vial Sliding Scale -) 1 vial SQ [facility]; Protocol Last Admin: 11/27/19 06:09 Dose: 8 unit Documented by: Isosorbide Mononitrate (Imdur -) 60 mg PO DAILY [facility] Last Admin: 11/26/19 10:52 Dose: 60 mg Documented by: Labetalol HCl (Normodyne -) 400 mg PO TID [facility] Methylprednisolone Sodium Succinate (Solu-Medrol -) 40 mg IVPUSH BID [facility] Nifedipine (Procardia Xl -) 90 mg PO DAILY [facility] Last Admin: 11/26/19 11:01 Dose: 90 mg Documented by: Spironolactone (Aldactone -) 50 mg PO BID [facility] Last Admin: 11/26/19 21:27 Dose: 50 mg Documented by: Tamsulosin HCl (Flomax -) 0.4 mg PO DAILY@0830 [facility] Last Admin: 11/26/19 08:18 Dose: 0.4 mg Documented by: - Objective Vital Signs: Vital Signs Temperature 98.8 F 11/27/19 05:21 Pulse Rate 86 11/27/19 05:21 Respiratory Rate 18 11/27/19 05:21 Blood Pressure 154/99 11/27/19 05:21 O2 Sat by Pulse Oximetry (%) 99 11/27/19 05:21 Neck: Yes: Supple Cardiovascular: Yes: Regular Rate and Rhythm, S1, S2 Respiratory: Yes: CTA Bilaterally Gastrointestinal: Yes: Normal Bowel Sounds, Soft. No: Tenderness Edema: No Additional Findings/Remarks: - Review of Systems Constitutional: denies: Chills, Fever Cardiovascular: reports: Shortness of Breath. (+) Chest Pain, denies:Palpitations Respiratory: denies: Cough, (+) SOB. denies: Hemoptysis, Orthopnea, PND, Wheezing Gastrointestinal: denies: Abdominal Pain, Constipation, Diarrhea, Melena, Nausea, Rectal Bleeding, Vomiting Musculoskeletal: denies: Back Pain, Joint Pain Neurological: denies: Dizziness, Headache, Seizure, Syncope Labs: CBC, BMP 11/27/19 06:27 11/27/19 06:27 Problem List - Problems (1) Hypertensive urgency Code(s): I16.0 - HYPERTENSIVE URGENCY (2) CHF (congestive heart failure) Code(s): I50.9 - HEART FAILURE, UNSPECIFIED Qualifiers: Heart failure type: diastolic Heart failure chronicity: acute on chronic Qualified Code(s): I50.33 - Acute on chronic diastolic (congestive) heart failure (3) AAA (abdominal aortic aneurysm) Code(s): I71.4 - ABDOMINAL AORTIC ANEURYSM, WITHOUT RUPTURE (4) Alcohol dependence Code(s): F10.20 - ALCOHOL DEPENDENCE, UNCOMPLICATED Qualifiers: Substance use status: unspecified alcohol-induced disorder Qualified Code(s): F10.29 - Alcohol dependence with unspecified alcohol-induced disorder (5) CAD (coronary artery disease) Code(s): I25.10 - ATHSCL HEART DISEASE OF [place] CORONARY ARTERY W/O ANG PCTRS Qualifiers: Coronary Disease-Associated Artery/Lesion type: [place] artery [place] vs. transplanted heart: [place] heart Associated angina: without angina Qualified Code(s): I25.10 - Atherosclerotic heart disease of [place] coronary artery without angina pectoris (6) CKD (chronic kidney disease) stage 3, GFR 30-59 ml/min Code(s): N18.3 - CHRONIC KIDNEY DISEASE, STAGE 3 (MODERATE) * DO NOT USE * (7) COPD (chronic obstructive pulmonary disease) Code(s): J44.9 - CHRONIC OBSTRUCTIVE PULMONARY DISEASE, UNSPECIFIED Qualifiers: COPD type: unspecified COPD Qualified Code(s): J44.9 - Chronic obstructive pulmonary disease, unspecified (8) Carotid stenosis, left Code(s): I65.22 - OCCLUSION AND STENOSIS OF LEFT CAROTID ARTERY (9) Cerebrovascular disease Code(s): I67.9 - CEREBROVASCULAR DISEASE, UNSPECIFIED (10) Cocaine abuse Code(s): F14.10 - COCAINE ABUSE, UNCOMPLICATED (11) Diabetes Code(s): E11.9 - TYPE 2 DIABETES MELLITUS WITHOUT COMPLICATIONS Qualifiers: Diabetes mellitus type: type 2 (12) Heart failure with reduced ejection fraction Code(s): I50.20 - UNSPECIFIED SYSTOLIC (CONGESTIVE) HEART FAILURE (13) History of myocardial infarction Code(s): I25.2 - OLD MYOCARDIAL INFARCTION (14) Hyperlipidemia Code(s): E78.5 - HYPERLIPIDEMIA, UNSPECIFIED Qualifiers: Hyperlipidemia type: pure hypercholesterolemia Qualified Code(s): E78.00 - Pure hypercholesterolemia, unspecified (15) Acute on chronic diastolic (congestive) heart failure Code(s): I50.33 - ACUTE ON CHRONIC DIASTOLIC (CONGESTIVE) HEART FAILURE Assessment/Plan 1. Chest pain syndrome in a patient with known history of coronary artery disease post AL/PCI/stent angina pectoris 2. Acute on chronic diastolic heart failure 3. History of COVID pneumonitis 4. History of COPD with intermittent acute exacerbations 5. Hypertensive cardiovascular disease, not at goal poor compliance with therapy administration 6. Type 2 DM and peripheral neuropathy 7. Hypercholesterolemia 8. History of cerebrovascular disease 9. History of carotid stenosis post right CEA 10. History of abdominal aortic aneurysm - 4.3 cm infra-renal with mural thrombus 11. CKD Stage III 12. Anemia 13. History of polysubstance abuse (ETOH and Cocaine) 14. History of angioedema related to ACEI therapy PLAN: 1. Continue Furosemide 40 mg PO BID and Spironolactone 50 mg BID with close monitoring of renal function and electrolytes 2. Continue Labetolol 400 mg TID 3. Continue Hydralazine 100 mg TID and Imdur 60 mg QD 4. Reinitiate Procardia XL 120 mg QD (currently not on active medication list). May give IV Hydralazine if needed 5. Continue ASA 81 mg QD and resume Plavix 75 mg QD 6. Continue Lipitor 40 mg QHS 7. Continue steroids, bronchodilators and O2 as needed 8. Counselled substance abuse and smoking cessation and importance of medication compliance 9. Not ideal cardiac cardiac cath candidate due to continued noncompliance with meds and follow up Further plans are to follow Nicholas Singletary MD
[2019-11-27 11:38] LABS: ANISOCYTOSIS 1+; MACROCYTOSIS 1+; PLATELET ESTIMATE NORMAL
--- NOTE | 2019-11-27 12:16 | PN ---
Progress Note (short form) - Note Progress Note: SUBJECTIVE: Seen and examined at bedside. Breathing significantly improved. Good air movement bilaterally with minimal wheezing. Labetalol and Procardia increased to home dose. Steroids tapered to 40 IV BID OBJECTIVE Last Vital Signs Temp Pulse Resp BP Pulse Ox 98 F 80 19 149/91 96 11/27/19 09:09 11/27/19 09:09 11/27/19 09:09 11/27/19 09:09 11/27/19 09:09 PE: GEN: NAD HEENT: NC/AT [facility] RESP: CTAB CARDS: RRR, -MRG ABD: soft, nt/nd +BS EXT: No swelling/Edema Neuro: Non-focal, A&OX3 Labs/Imaging: reviewed ASSESSMENT/PLAN 59-year-old male past medical history of CKD stage III, asthma, CVA, CAD status post [place] x3 and multiple stents, nonischemic cardiomyopathy, HTN, HLD, DM 2, HFpEF, EtOH and cocaine abuse, COPD, AAA, culture positive in May presents with chest pain, dyspnea, and orthopnea after he ran out of medication 3 days ago #CHF exacerbation with acute hypoxic respiratory failure Cardiology on board: Appreciate recommendations Lasix IV 40mg daily Fluid restrict Daily weights K>4, Mg>2 #COPD exacerbation/airway hyperreactivity Poor air movement and wheezing bilaterally on exam -taper methyrlprednisolone 40mg q12h, switch to oral tomorrow if improves -duonebs q4h -IV mag given #Hypertensive urgency -cont home hydralazine 100mg TID -cont home spironolactone -cont imdur 60 -labetalol 400mg TID tomorrow -cont home procardia XL 120mg qd. #Hx CAD, stroke, AAA -cont home asa, statin #Chest/Back Pain: resolved pt has tenerdness in R trapezius muscle without stiffness of the muscle. Describes it as lightning. Reports he snapped his head back the other day -likley muscle strain vs radiculopathy. Unlikely aortic dissection -trops neg x3 Visit type - Emergency Visit Emergency Visit: Yes ED Registration Date: 11/24/19 Care time: The patient presented to the Emergency Department on the above date and was hospitalized for further evaluation of their emergent condition. - New Patient This patient is new to me today: No - Critical Care Critical Care patient: No
[2019-11-27] MEDS ORDERED: SODIUM ZIRCONIUM CYCLOSILICATE (LOKELMA) 5 GM PACKET PO ONE (13:34)
--- NOTE | 2019-11-27 13:34 | PN ---
Progress Note, Physician History of Present Illness: Pt seen and examined at bedside. he is awake and alert. He feels that his breathing is improving. - Current Medication List Current Medications: Active Medications Acetaminophen (Tylenol -) 1,000 mg PO Q6H PRN PRN Reason: PAIN LEVEL 1-5 Last Admin: 11/26/19 04:19 Dose: 1,000 mg Documented by: Albuterol/Ipratropium (Duoneb -) 1 amp NEB RQID [facility] Last Admin: 11/27/19 11:32 Dose: 1 amp Documented by: Aspirin (Ecotrin -) 81 mg PO DAILY [facility] Last Admin: 11/27/19 09:02 Dose: 81 mg Documented by: Atorvastatin Calcium (Lipitor -) 40 mg PO HS [facility] Last Admin: 11/26/19 21:28 Dose: 40 mg Documented by: Budesonide/Formoterol Fumarate (Symbicort 80/4.5mcg -) 1 puff IH BID [facility] Last Admin: 11/27/19 09:02 Dose: 1 puff Documented by: Clopidogrel Bisulfate (Plavix -) 75 mg PO DAILY [facility] Last Admin: 11/27/19 09:02 Dose: 75 mg Documented by: Furosemide (Lasix -) 40 mg PO BID@0600,1400 [facility] Last Admin: 11/27/19 05:23 Dose: 40 mg Documented by: Heparin Sodium (Porcine) (Heparin -) 5,000 unit SQ TID [facility] Last Admin: 11/27/19 05:23 Dose: 5,000 unit Documented by: Hydralazine HCl (Apresoline -) 100 mg PO TID [facility] Last Admin: 11/27/19 05:23 Dose: 100 mg Documented by: Insulin Aspart (Novolog Vial Sliding Scale -) 1 vial SQ [facility]; Protocol Last Admin: 11/27/19 11:43 Dose: 8 unit Documented by: Isosorbide Mononitrate (Imdur -) 60 mg PO DAILY [facility] Last Admin: 11/27/19 09:02 Dose: 60 mg Documented by: Labetalol HCl (Normodyne -) 400 mg PO TID [facility] Methylprednisolone Sodium Succinate (Solu-Medrol -) 40 mg IVPUSH BID [facility] Last Admin: 11/27/19 09:02 Dose: 40 mg Documented by: Nifedipine (Procardia Xl -) 120 mg PO DAILY [facility] Spironolactone (Aldactone -) 50 mg PO BID [facility] Last Admin: 11/27/19 09:02 Dose: 50 mg Documented by: Tamsulosin HCl (Flomax -) 0.4 mg PO DAILY@0830 [facility] Last Admin: 11/27/19 08:50 Dose: 0.4 mg Documented by: - Objective Vital Signs: Vital Signs Temperature 98 F 11/27/19 09:09 Pulse Rate 80 11/27/19 09:09 Respiratory Rate 19 11/27/19 09:09 Blood Pressure 149/91 11/27/19 09:09 O2 Sat by Pulse Oximetry (%) 96 11/27/19 09:09 Constitutional: Yes: Calm Eyes: Yes: Conjunctiva Clear HENT: Yes: Atraumatic Neck: Yes: Supple Cardiovascular: Yes: S1, S2 Respiratory: Yes: On Nasal O2, Wheezes Gastrointestinal: Yes: Normal Bowel Sounds, Soft Musculoskeletal: Yes: WNL Edema: Yes Edema: LLE: 1+, RLE: 1+ Neurological: Yes: Oriented Psychiatric: Yes: Oriented Labs: CBC, BMP 11/27/19 06:27 11/27/19 06:27 INR, PTT INR 1.08 (0.83-1.09) 11/24/19 17:40 Problem List - Problems (1) Chest pain Code(s): R07.9 - CHEST PAIN, UNSPECIFIED (2) Hypertensive urgency Code(s): I16.0 - HYPERTENSIVE URGENCY (3) Shortness of breath Code(s): R06.02 - SHORTNESS OF BREATH (4) CHF (congestive heart failure) Code(s): I50.9 - HEART FAILURE, UNSPECIFIED Qualifiers: Heart failure type: diastolic Heart failure chronicity: acute on chronic Qualified Code(s): I50.33 - Acute on chronic diastolic (congestive) heart f ailure (5) AAA (abdominal aortic aneurysm) Code(s): I71.4 - ABDOMINAL AORTIC ANEURYSM, WITHOUT RUPTURE (6) CKD (chronic kidney disease) stage 3, GFR 30-59 ml/min Code(s): N18.3 - CHRONIC KIDNEY DISEASE, STAGE 3 (MODERATE) * DO NOT USE * Assessment/Plan Current Medications Generic Name Dose Route Start Last Admin Trade Name Freq PRN Reason Stop Dose Admin Acetaminophen 1,000 mg 11/25/19 08:17 11/26/19 04:19 Tylenol - PO 1,000 mg Q6H PRN Administration PAIN LEVEL 1-5 Albuterol/Ipratropium 1 amp 11/25/19 16:30 11/27/19 11:32 Duoneb - NEB 1 amp RQID PUSHPA Administration Aspirin 81 mg 11/25/19 11:30 11/27/19 09:02 Ecotrin - PO 81 mg DAILY PUSH[facility] Administration Atorvastatin Calcium 40 mg 11/25/19 22:00 11/26/19 21:28 Lipitor - PO 40 mg HS PUSHPA Administration Budesonide/Formoterol Fumarate 1 puff 11/25/19 22:00 11/27/19 09:02 Symbicort 80/4.5mcg - IH 1 puff BID PUSHPA Administration Clopidogrel Bisulfate 75 mg 11/26/19 10:45 11/27/19 09:02 Plavix - PO 75 mg DAILY P[facility] Administration Furosemide 40 mg 11/25/19 06:00 11/27/19 05:23 Lasix - PO 40 mg BID@0600,1400 [facility] Administration Heparin Sodium (Porcine) 5,000 unit 11/25/19 02:00 11/27/19 05:23 Heparin - SQ 5,000 unit TID PUSH[facility] Administration Hydralazine HCl 100 mg 11/25/19 12:00 11/27/19 05:23 Apresoline - PO 100 mg TID PUSH[facility] Administration Insulin Aspart 1 vial 11/25/19 07:00 11/27/19 11:43 Novolog Vial Sliding Scale - SQ 8 unit ACHS PUSHPA Administration Protocol Isosorbide Mononitrate 60 mg 11/25/19 12:00 11/27/19 09:02 Imdur - PO 60 mg DAILY [facility] Administration Labetalol HCl 400 mg 11/27/19 14:00 Normodyne - PO TID [facility] Methylprednisolone Sodium Succinate 40 mg 11/27/19 10:00 11/27/19 09:02 Solu-Medrol - IVPUSH 40 mg BID [facility] Administration Nifedipine 120 mg 11/28/19 10:00 Procardia Xl - PO DAILY [facility] Spironolactone 50 mg 11/25/19 11:30 11/27/19 09:02 Aldactone - PO 50 mg BID [facility] Administration Tamsulosin HCl 0.4 mg 11/26/19 08:30 11/27/19 08:50 Flomax - PO 0.4 mg DAILY@0830 [facility]USH[facility] Administration Impression 1. CKD with acute component 2. htn 3. dm 4. AAA 5. hx of covid 6. chest pain 7. hx etoh abuse 8. cocaine use 9. chest pain Plan - potassium is rising - decrease aldactone to daily - will give a dose of lokelma - repeat labs in am - low potassium diet - cont lasix - will start arb once renal function stable
[2019-11-27] MEDS ORDERED: PT OWN MED DRAWER 7, Y5N ONE (14:43)
[2019-11-27] MEDS: ATORVASTATIN CA 40 MG TABLET (FP) PO SCH (21:54)
[2019-11-28] MEDS: ACETAMINOPHEN 500 MG TABLET (FP) PO PRN (01:10)
[2019-11-28] MEDS: hydrALAZINE HCL 50 MG TABLET (FP) PO SCH ×3 (06:22→21:07)
[2019-11-28] MEDS: FUROSEMIDE 40 MG TABLET (FP) PO SCH ×2 (06:23→09:22)
[2019-11-28] MEDS: LABETALOL HCL 200 MG TABLET (FP) PO SCH ×3 (06:23→21:08)
[2019-11-28] MEDS: HEPARIN NA (PORCINE) 5,000 UNITS/ML 1ML VIAL SQ SCH ×3 (06:23→21:50)
[2019-11-28] MEDS: INSULIN SLIDING SCALE (NOVOLOG) 1 VIAL SQ SCH ×4 (06:24→21:50)
[2019-11-28 07:01] LABS: BASO % 0.1 % (0-2.0); EOS % 0.1 % (0-4.5); HEMATOCRIT 32.4 % (35.4-49); HEMOGLOBIN 10.5 GM/dL (11.7-16.9); LYMPH % 4.1 % (8-40); MCH 31.2 pg (25.7-33.7); MCHC 32.4 g/dl (32.0-35.9); MEAN CELL VOLUME 96.4 fl (80-96); MEAN PLT VOLUME 7.4 fl (7.5-11.1); MONO % 3.7 % (3.8-10.2); PLATELET COUNT 365 K/MM3 (134-434); RBC 3.36 M/mm3 (4.00-5.60); RDW 14.2 % (11.9-15.9); WHITE BLOOD COUNT 13.2 K/mm3 (4.0-10.0)
[2019-11-28 07:32] LABS: ALBUMIN 3.2 g/dl (3.4-5.0); BILIRUBIN,TOTAL 0.5 mg/dL (0.2-1); BLOOD UREA NITROGEN 34.8 mg/dL (7-18); CALCIUM 9.5 mg/dL (8.5-10.1); CREATININE 1.9 mg/dL (0.55-1.3); MAGNESIUM 2.1 mg/dL (1.8-2.4); POTASSIUM 4.9 mmol/L (3.5-5.1); TOT PROT 7.4 g/dl (6.4-8.2)
[2019-11-28] MEDS: ALBUTEROL SO4 2.5/IPRATROPIUM 0.5 INH SOL 3 ML VIAL.NEB. NEB SCH ×4 (08:12→20:25)
--- NOTE | 2019-11-28 08:58 | PN ---
Progress Note, Physician Chief Complaint: Events noted Not in distress History of Present Illness: Patient was seen and examined. Awake and alert. Chart was reviewed Denies chest pain, SOB or palpitations - Current Medication List Current Medications: Active Medications Acetaminophen (Tylenol -) 1,000 mg PO Q6H PRN PRN Reason: PAIN LEVEL 1-5 Last Admin: 11/28/19 01:10 Dose: 1,000 mg Documented by: Albuterol/Ipratropium (Duoneb -) 1 amp NEB RQID [facility] Last Admin: 11/28/19 08:12 Dose: 1 amp Documented by: Aspirin (Ecotrin -) 81 mg PO DAILY [facility] Last Admin: 11/27/19 09:02 Dose: 81 mg Documented by: Atorvastatin Calcium (Lipitor -) 40 mg PO HS [facility] Last Admin: 11/27/19 21:54 Dose: 40 mg Documented by: Budesonide/Formoterol Fumarate (Symbicort 80/4.5mcg -) 1 puff IH BID [facility] Last Admin: 11/27/19 22:18 Dose: 1 puff Documented by: Clopidogrel Bisulfate (Plavix -) 75 mg PO DAILY [facility] Last Admin: 11/27/19 09:02 Dose: 75 mg Documented by: Furosemide (Lasix -) 40 mg PO BID@0600,1400 [facility] Last Admin: 11/28/19 06:23 Dose: 40 mg Documented by: Heparin Sodium (Porcine) (Heparin -) 5,000 unit SQ TID [facility] Last Admin: 11/28/19 06:23 Dose: 5,000 unit Documented by: Hydralazine HCl (Apresoline -) 100 mg PO TID [facility] Last Admin: 11/28/19 06:22 Dose: 100 mg Documented by: Insulin Aspart (Novolog Vial Sliding Scale -) 1 vial SQ [facility]; Protocol Last Admin: 11/28/19 06:24 Dose: 10 unit Documented by: Isosorbide Mononitrate (Imdur -) 60 mg PO DAILY [facility] Last Admin: 11/27/19 09:02 Dose: 60 mg Documented by: Labetalol HCl (Normodyne -) 400 mg PO TID [facility] Last Admin: 11/28/19 06:23 Dose: 400 mg Documented by: Methylprednisolone Sodium Succinate (Solu-Medrol -) 40 mg IVPUSH BID [facility] Last Admin: 11/27/19 21:54 Dose: 40 mg Documented by: Nifedipine (Procardia Xl -) 120 mg PO DAILY [facility] Spironolactone (Aldactone -) 50 mg PO DAILY [facility] Tamsulosin HCl (Flomax -) 0.4 mg PO DAILY@0830 [facility] Last Admin: 11/27/19 08:50 Dose: 0.4 mg Documented by: - Objective Vital Signs: Vital Signs Temperature 98.2 F 11/28/19 06:00 Pulse Rate 83 11/28/19 06:00 Respiratory Rate 18 11/28/19 06:00 Blood Pressure 152/93 11/28/19 06:00 O2 Sat by Pulse Oximetry (%) 99 11/28/19 06:00 Neck: Yes: Supple Cardiovascular: Yes: Regular Rate and Rhythm, S1, S2 Respiratory: Yes: CTA Bilaterally. No: Wheezes Gastrointestinal: Yes: Normal Bowel Sounds, Soft. No: Tenderness Edema: No Additional Findings/Remarks: - Review of Systems Constitutional: denies: Chills, Fever Cardiovascular: reports: Shortness of Breath. (+) Chest Pain, denies:Palpitations Respiratory: denies: Cough, (+) SOB. denies: Hemoptysis, Orthopnea, PND, Whee zing Gastrointestinal: denies: Abdominal Pain, Constipation, Diarrhea, Melena, Nausea, Rectal Bleeding, Vomiting Musculoskeletal: denies: Back Pain, Joint Pain Neurological: denies: Dizziness, Headache, Seizure, Syncope Labs: CBC, BMP 11/28/19 06:41 11/28/19 06:41 Problem List - Problems (1) Hypertensive urgency Code(s): I16.0 - HYPERTENSIVE URGENCY (2) CHF (congestive heart failure) Code(s): I50.9 - HEART FAILURE, UNSPECIFIED Qualifiers: Heart failure type: diastolic Heart failure chronicity: acute on chronic Qualified Code(s): I50.33 - Acute on chronic diastolic (congestive) heart failure (3) AAA (abdominal aortic aneurysm) Code(s): I71.4 - ABDOMINAL AORTIC ANEURYSM, WITHOUT RUPTURE (4) Alcohol dependence Code(s): F10.20 - ALCOHOL DEPENDENCE, UNCOMPLICATED Qualifiers: Substance use status: unspecified alcohol-induced disorder Qualified Code(s): F10.29 - Alcohol dependence with unspecified alcohol-induced disorder (5) CAD (coronary artery disease) Code(s): I25.10 - ATHSCL HEART DISEASE OF [place] CORONARY ARTERY W/O ANG PCTRS Qualifiers: Coronary Disease-Associated Artery/Lesion type: [place] artery [place] vs. transplanted heart: [place] heart Associated angina: without angina Qualified Code(s): I25.10 - Atherosclerotic heart disease of [place] coronary artery without angina pectoris (6) CKD (chronic kidney disease) stage 3, GFR 30-59 ml/min Code(s): N18.3 - CHRONIC KIDNEY DISEASE, STAGE 3 (MODERATE) * DO NOT USE * (7) COPD (chronic obstructive pulmonary disease) Code(s): J44.9 - CHRONIC OBSTRUCTIVE PULMONARY DISEASE, UNSPECIFIED Qualifiers: COPD type: unspecified COPD Qualified Code(s): J44.9 - Chronic obstructive pulmonary disease, unspecified (8) Carotid stenosis, left Code(s): I65.22 - OCCLUSION AND STENOSIS OF LEFT CAROTID ARTERY (9) Cerebrovascular disease Code(s): I67.9 - CEREBROVASCULAR DISEASE, UNSPECIFIED (10) Cocaine abuse Code(s): F14.10 - COCAINE ABUSE, UNCOMPLICATED (11) Diabetes Code(s): E11.9 - TYPE 2 DIABETES MELLITUS WITHOUT COMPLICATIONS Qualifiers: Diabetes mellitus type: type 2 (12) Heart failure with reduced ejection fraction Code(s): I50.20 - UNSPECIFIED SYSTOLIC (CONGESTIVE) HEART FAILURE (13) History of myocardial infarction Code(s): I25.2 - OLD MYOCARDIAL INFARCTION (14) Hyperlipidemia Code(s): E78.5 - HYPERLIPIDEMIA, UNSPECIFIED Qualifiers: Hyperlipidemia type: pure hypercholesterolemia Qualified Code(s): E78.00 - Pure hypercholesterolemia, unspecified (15) Acute on chronic diastolic (congestive) heart failure Code(s): I50.33 - ACUTE ON CHRONIC DIASTOLIC (CONGESTIVE) HEART FAILURE Assessment/Plan 1. Chest pain syndrome in a patient with known history of coronary artery disease post LA/PCI/stent angina pectoris 2. Acute on chronic diastolic heart failure 3. History of COVID pneumonitis 4. History of COPD with intermittent acute exacerbations 5. Hypertensive cardiovascular disease, not at goal poor compliance with therapy administration 6. Type 2 DM and peripheral neuropathy 7. Hypercholesterolemia 8. History of cerebrovascular disease 9. History of carotid stenosis post right CEA 10. History of abdominal aortic aneurysm - 4.3 cm infra-renal with mural thrombus 11. CKD Stage III 12. Anemia 13. History of polysubstance abuse (ETOH and Cocaine) 14. History of angioedema related to ACEI therapy PLAN: 1. Continue Furosemide 40 mg PO BID and Spironolactone 50 mg BID with close monitoring of renal function and electrolytes 2. Continue Labetolol 400 mg TID 3. Continue Hydralazine 100 mg TID and Imdur 60 mg QD 4. Reinitiate Procardia XL 120 mg QD. 5. Continue ASA 81 mg QD and Plavix 75 mg QD 6. Continue Lipitor 40 mg QHS 7. Continue steroids, bronchodilators and O2 as needed 8. Counselled substance abuse and smoking cessation and importance of medication compliance 9. Not ideal cardiac cardiac cath candidate due to continued noncompliance with meds and follow up Further plans are to follow Nicholas Singletary MD
[2019-11-28] MEDS: TAMSULOSIN HCL 0.4 MG CAP PO SCH (09:22)
[2019-11-28] MEDS: ISOSORBIDE MONONITRATE 60 MG TAB.SR.24H (FP) PO SCH (09:22)
[2019-11-28] MEDS: SPIRONOLACTONE 25 MG TABLET PO SCH (09:22)
[2019-11-28] MEDS: CLOPIDOGREL BISULFATE 75 MG TABLET (FP) PO SCH (09:22)
[2019-11-28] MEDS: ASPIRIN COATED 81 MG TABLET.EC PO SCH (09:22)
[2019-11-28] MEDS: NIFEdipine E.R 60 MG TABLET PO SCH (09:23)
[2019-11-28] MEDS: BUDESONIDE/FORMETEROL FUMARATE 80/4.5 mcg INHALER IH SCH ×2 (09:23→21:52)
[2019-11-28] MEDS: predniSONE 20 MG TABLET (UD) PO SCH (09:23)
--- NOTE | 2019-11-28 10:52 | PN ---
Teaching Attending Note Name of Resident: Faby Sidhu ATTENDING PHYSICIAN STATEMENT I saw and evaluated the patient. I reviewed the resident's note and discussed the case with the resident. I agree with the resident's findings and plan as documented. SUBJECTIVE: Seen and examined at bedside. Breathing significantly improved. Good air movem ent bilaterally with minimal wheezing. Remains hypertensive. Steroids tapered to prednisone 40 mg daily. Increasing creatinine. Lasix frequency decreased to daily from twice daily. Steroid-induced hyperglycemia: Started on Levemir 10 units twice daily OBJECTIVE Last Vital Signs Temp Pulse Resp BP Pulse Ox 97.8 F 79 20 152/99 100 11/28/19 09:26 11/28/19 09:26 11/28/19 09:26 11/28/19 09:26 11/28/19 09:26 PE: GEN: NAD HEENT: NC/AT [place] RESP: CTAB CARDS: RRR, -MRG ABD: soft, nt/nd +BS EXT: No swelling/Edema Neuro: Non-focal, A&OX3 Labs/Imaging: reviewed ASSESSMENT/PLAN 59-year-old male past medical history of CKD stage III, asthma, CVA, CAD status post VT x3 and multiple stents, nonischemic cardiomyopathy, HTN, HLD, DM 2, HFpEF, EtOH and cocaine abuse, COPD, AAA, culture positive in May presents with chest pain, dyspnea, and orthopnea after he ran out of medication 3 days ago #CHF exacerbation with acute hypoxic respiratory failure Appears close to euvolemic. lasix tapered to 40mg po daily. Cardiology on board: Appreciate recommendations Lasix PO 40mg daily Fluid restrict Daily weights K>4, Mg>2 #COPD exacerbation/airway hyperreactivity Breathing improving -switch to PO prednisone -duonebs q4h #GOGO 2/2 diuretic use -taper diuretics #Steroid induced hyperglycemia -start levemir 10U BID -check A1C -tapering steroids #Hypertensive urgency: improving -cont home hydralazine 100mg TID -cont home spironolactone -cont imdur 60 -labetalol 400mg TID tomorrow -cont home procardia XL 120mg qd. #Hx CAD, stroke, AAA -cont home asa, statin #Chest/Back Pain: resolved pt has tenerdness in R trapezius muscle without stiffness of the muscle. Describes it as lightning. Reports he snapped his head back the other day -likley muscle strain vs radiculopathy. Unlikely aortic dissection -trops neg x3
[2019-11-28] MEDS: INSULIN (LEVEMIR) 100 UNITS/ML UNITS SQ SCH ×2 (11:19→21:50)
--- NOTE | 2019-11-28 11:56 | PN ---
Physical Exam: SUBJECTIVE: Patient seen and examined, only complains that his clothes are missing. OBJECTIVE: Vital Signs Period Temp Pulse Resp BP Sys/Caal Pulse Ox Last 24 Hr 97.5 F-98.4 F 79-87 18-20 146-175/87-109 98-100 GENERAL: The patient is awake, alert, and fully oriented, in no acute distress. HEAD: Normal with no signs of trauma. EYES: PERRL, extraocular movements intact, s ENT: Ears normal, nares patent, oropharynx clear without exudates, moist mucous membranes. LUNGS: Breath sounds equal, clear to auscultation bilaterally, no wheezes, no crackles, no accessory muscle use. HEART: Regular rate and rhythm, S1, S2 without murmur, rub or gallop. ABDOMEN: Soft, nontender, nondistended, EXTREMITIES: mild edema SKIN: Warm, dry, normal turgor, no rashes or lesions noted CBC, BMP 11/28/19 06:41 11/28/19 06:41 Active Medications Generic Name Dose Route Start Last Admin Trade Name Freq PRN Reason Stop Dose Admin Acetaminophen 1,000 mg 11/25/19 08:17 11/28/19 01:10 Tylenol - PO 1,000 mg Q6H PRN Administration PAIN LEVEL 1-5 Albuterol/Ipratropium 1 amp 11/25/19 16:30 11/28/19 11:51 Duoneb - NEB 1 amp RQID [facility] Administration Aspirin 81 mg 11/25/19 11:30 11/28/19 09:22 Ecotrin - PO 81 mg DAILY [facility] Administration Atorvastatin Calcium 40 mg 11/25/19 22:00 11/27/19 21:54 Lipitor - PO 40 mg HS [facility] Administration Budesonide/Formoterol Fumarate 1 puff 11/25/19 22:00 11/28/19 09:23 Symbicort 80/4.5mcg - IH 1 puff BID [facility] Administration Clopidogrel Bisulfate 75 mg 11/26/19 10:45 11/28/19 09:22 Plavix - PO 75 mg DAILY [facility] Administration Furosemide 40 mg 11/28/19 10:00 11/28/19 09:22 Lasix - PO 40 mg DAILY [facility] Administration Heparin Sodium (Porcine) 5,000 unit 11/25/19 02:00 11/28/19 06:23 Heparin - SQ 5,000 unit TID [facility] Administration Hydralazine HCl 100 mg 11/25/19 12:00 11/28/19 06:22 Apresoline - PO 100 mg TID [facility] Administration Insulin Aspart 1 vial 11/25/19 07:00 11/28/19 11:20 Novolog Vial Sliding Scale - SQ 4 unit ACHS [facility] Administration Protocol Insulin Detemir 10 units 11/28/19 11:00 11/28/19 11:19 Levemir Vial SQ 10 unit BID@0700,2200 [facility] Administration Isosorbide Mononitrate 60 mg 11/25/19 12:00 11/28/19 09:22 Imdur - PO 60 mg DAILY [facility] Administration Labetalol HCl 400 mg 11/27/19 14:00 11/28/19 06:23 Normodyne - PO 400 mg TID [facility] Administration Nifedipine 120 mg 11/28/19 10:00 11/28/19 09:23 Procardia Xl - PO 120 mg DAILY [facility] Administration Prednisone 40 mg 11/28/19 10:00 11/28/19 09:23 Deltasone - PO 40 mg DAILY [facility] Administration Spironolactone 50 mg 11/28/19 10:00 11/28/19 09:22 Aldactone - PO 50 mg DAILY [facility] Administration Tamsulosin HCl 0.4 mg 11/26/19 08:30 11/28/19 09:22 Flomax - PO 0.4 mg DAILY@0830 [facility] Administration ASSESSMENT/PLAN: Mr. Tank Deng is a 59 year old man with PMH of HFpEF, CAD (hx 3 OH; PCI, stent placement), AAA (3.9 cm in 09/2019) hypertension, hyperlipidemia, COPD, NIDDM, Stage III CKD, CVA, polysubstance abuse (alcohol and cocaine), who is admitted for CHF exacerbation. #Acute on chronic CHF in setting of HTN urgency - trial of lasix, decreased to 40 po daily - monitored by Cardio - contineu antihypertenzives including: Labetolol, Hydraazine, Procardia, imdur - Spironolactone decerased, patient has allx to ACEi - conitnue ASA and lipitor - hx CAD: continue CLopidogrel - monitor daily weights #GOGO on CKD - spironolactone decreased - likely in the setting of increase lasix dosage - continue to monitor electrolytes #COPD exacerbation - prednisone taper with po 40 mg - continue resp treamtnets #DM - continue Levemir - SS - diabetic diet DVT ppx: heaprin TID Dispo: monitor on tele Visit type - Emergency Visit Emergency Visit: No - New Patient This patient is new to me today: Yes Date on this admission: 11/28/19 - Critical Care Critical Care patient: No ATTENDING PHYSICIAN STATEMENT I saw and evaluated the patient. I reviewed the resident's note and discussed the case with the resident. I agree with the resident's findings and plan as documented. SUBJECTIVE: OBJECTIVE: ASSESSMENT AND PLAN:
--- NOTE | 2019-11-28 12:11 | PN ---
Progress Note, Physician History of Present Illness: Pt seen and examined at bedside. He is awake and alert. He feels that his breathing is improving. - Current Medication List Current Medications: Active Medications Acetaminophen (Tylenol -) 1,000 mg PO Q6H PRN PRN Reason: PAIN LEVEL 1-5 Last Admin: 11/28/19 01:10 Dose: 1,000 mg Documented by: Albuterol/Ipratropium (Duoneb -) 1 amp NEB RQID [facility] Last Admin: 11/28/19 11:51 Dose: 1 amp Documented by: Aspirin (Ecotrin -) 81 mg PO DAILY [facility] Last Admin: 11/28/19 09:22 Dose: 81 mg Documented by: Atorvastatin Calcium (Lipitor -) 40 mg PO HS [facility] Last Admin: 11/27/19 21:54 Dose: 40 mg Documented by: Budesonide/Formoterol Fumarate (Symbicort 80/4.5mcg -) 1 puff IH BID [facility] Last Admin: 11/28/19 09:23 Dose: 1 puff Documented by: Clopidogrel Bisulfate (Plavix -) 75 mg PO DAILY [facility] Last Admin: 11/28/19 09:22 Dose: 75 mg Documented by: Furosemide (Lasix -) 40 mg PO DAILY [facility] Last Admin: 11/28/19 09:22 Dose: 40 mg Documented by: Heparin Sodium (Porcine) (Heparin -) 5,000 unit SQ TID [facility] Last Admin: 11/28/19 06:23 Dose: 5,000 unit Documented by: Hydralazine HCl (Apresoline -) 100 mg PO TID [facility] Last Admin: 11/28/19 06:22 Dose: 100 mg Documented by: Insulin Aspart (Novolog Vial Sliding Scale -) 1 vial SQ [facility]; Protocol Last Admin: 11/28/19 11:20 Dose: 4 unit Documented by: Insulin Detemir (Levemir Vial) 10 units SQ BID@0700,2200 [facility] Last Admin: 11/28/19 11:19 Dose: 10 unit Documented by: Isosorbide Mononitrate (Imdur -) 60 mg PO DAILY [facility] Last Admin: 11/28/19 09:22 Dose: 60 mg Documented by: Labetalol HCl (Normodyne -) 400 mg PO TID [facility] Last Admin: 11/28/19 06:23 Dose: 400 mg Documented by: Nifedipine (Procardia Xl -) 120 mg PO DAILY [facility] Last Admin: 11/28/19 09:23 Dose: 120 mg Documented by: Prednisone (Deltasone -) 40 mg PO DAILY [facility] Last Admin: 11/28/19 09:23 Dose: 40 mg Documented by: Spironolactone (Aldactone -) 50 mg PO DAILY [facility] Last Admin: 11/28/19 09:22 Dose: 50 mg Documented by: Tamsulosin HCl (Flomax -) 0.4 mg PO DAILY@0830 [facility] Last Admin: 11/28/19 09:22 Dose: 0.4 mg Documented by: - Objective Vital Signs: Vital Signs Temperature 97.8 F 11/28/19 09:26 Pulse Rate 79 11/28/19 09:26 Respiratory Rate 20 11/28/19 09:26 Blood Pressure 152/99 11/28/19 09:26 O2 Sat by Pulse Oximetry (%) 100 11/28/19 09:26 Constitutional: Yes: Calm Eyes: Yes: Conjunctiva Clear HENT: Yes: Atraumatic Neck: Yes: Supple Cardiovascular: Yes: S1, S2 Respiratory: Yes: On Nasal O2, Wheezes, Other (improved) Gastrointestinal: Yes: Soft Genitourinary: Yes: WNL Edema: Yes Edema: LLE: Trace, RLE: Trace Neurological: Yes: Oriented Psychiatric: Yes: Oriented Labs: CBC, BMP 11/28/19 06:41 11/28/19 06:41 INR, PTT INR 1.08 (0.83-1.09) 11/24/19 17:40 Problem List - Problems (1) Chest pain Code(s): R07.9 - CHEST PAIN, UNSPECIFIED (2) Hypertensive urgency Code(s): I16.0 - HYPERTENSIVE URGENCY (3) Shortness of breath Code(s): R06.02 - SHORTNESS OF BREATH (4) CHF (congestive heart failure) Code(s): I50.9 - HEART FAILURE, UNSPECIFIED Qualifiers: Heart failure type: diastolic Heart failure chronicity: acute on chronic Qualified Code(s): I50.33 - Acute on chronic diastolic (congestive) heart failure (5) AAA (abdominal aortic aneurysm) Code(s): I71.4 - ABDOMINAL AORTIC ANEURYSM, WITHOUT RUPTURE (6) CKD (chronic kidney disease) stage 3, GFR 30-59 ml/min Code(s): N18.3 - CHRONIC KIDNEY DISEASE, STAGE 3 (MODERATE) * DO NOT USE * Assessment/Plan Current Medications Generic Name Dose Route Start Last Admin Trade Name Freq PRN Reason Stop Dose Admin Acetaminophen 1,000 mg 11/25/19 08:17 11/28/19 01:10 Tylenol - PO 1,000 mg Q6H PRN Administration PAIN LEVEL 1-5 Albuterol/Ipratropium 1 amp 11/25/19 16:30 11/28/19 11:51 Duoneb - NEB 1 amp RQID [facility] Administration Aspirin 81 mg 11/25/19 11:30 11/28/19 09:22 Ecotrin - PO 81 mg DAILY [facility] Administration Atorvastatin Calcium 40 mg 11/25/19 22:00 11/27/19 21:54 Lipitor - PO 40 mg HS [facility] Administration Budesonide/Formoterol Fumarate 1 puff 11/25/19 22:00 11/28/19 09:23 Symbicort 80/4.5mcg - IH 1 puff BID [facility] Administration Clopidogrel Bisulfate 75 mg 11/26/19 10:45 11/28/19 09:22 Plavix - PO 75 mg DAILY [facility] Administration Furosemide 40 mg 11/28/19 10:00 11/28/19 09:22 Lasix - PO 40 mg DAILY [facility] Administration Heparin Sodium (Porcine) 5,000 unit 11/25/19 02:00 11/28/19 06:23 Heparin - SQ 5,000 unit TID [facility] Administration Hydralazine HCl 100 mg 11/25/19 12:00 11/28/19 06:22 Apresoline - PO 100 mg TID [facility] Administration Insulin Aspart 1 vial 11/25/19 07:00 11/28/19 11:20 Novolog Vial Sliding Scale - SQ 4 unit ACHS [facility] Administration Protocol Insulin Detemir 10 units 11/28/19 11:00 11/28/19 11:19 Levemir Vial SQ 10 unit BID@0700,2200 [facility] Administration Isosorbide Mononitrate 60 mg 11/25/19 12:00 11/28/19 09:22 Imdur - PO 60 mg DAILY [facility] Administration Labetalol HCl 400 mg 11/27/19 14:00 11/28/19 06:23 Normodyne - PO 400 mg TID [facility] Administration Nifedipine 120 mg 11/28/19 10:00 11/28/19 09:23 Procardia Xl - PO 120 mg DAILY [facility] Administration Prednisone 40 mg 11/28/19 10:00 11/28/19 09:23 Deltasone - PO 40 mg DAILY [facility] Administration Spironolactone 50 mg 11/28/19 10:00 11/28/19 09:22 Aldactone - PO 50 mg DAILY [facility] Administration Tamsulosin HCl 0.4 mg 11/26/19 08:30 11/28/19 09:22 Flomax - PO 0.4 mg DAILY@0830 [facility] Administration Impression 1. CKD with acute component 2. htn 3. dm 4. AAA 5. hx of covid 6. chest pain 7. hx etoh abuse 8. cocaine use 9. chest pain Plan - potassium improved - cont lasix - decreased dose of aldactone - monitor lytes - steroids with taper as tolerated - will need close outpt follow up - pt has an ying allergy
[2019-11-28 14:19] LABS: ANISOCYTOSIS 1+; MACROCYTOSIS 0; PLATELET ESTIMATE NORMAL
[2019-11-28] MEDS: ATORVASTATIN CA 40 MG TABLET (FP) PO SCH (21:50)
[2019-11-29] MEDS: hydrALAZINE HCL 50 MG TABLET (FP) PO SCH ×3 (05:54→21:03)
[2019-11-29] MEDS: HEPARIN NA (PORCINE) 5,000 UNITS/ML 1ML VIAL SQ SCH ×3 (05:54→21:10)
[2019-11-29] MEDS: LABETALOL HCL 200 MG TABLET (FP) PO SCH ×3 (05:54→21:03)
[2019-11-29] MEDS: INSULIN (LEVEMIR) 100 UNITS/ML UNITS SQ SCH ×3 (06:03→21:06)
[2019-11-29] MEDS: INSULIN SLIDING SCALE (NOVOLOG) 1 VIAL SQ SCH ×4 (06:04→21:06)
--- NOTE | 2019-11-29 06:27 | PN ---
Progress Note (short form) - Note Progress Note: Chief Complaint: Events noted, notes reviewed, resting in bed denies any chest discomfort, reports persistent dyspnea, denies any orthopnea or paroxysmal nocturnal dyspnea History of Present Illness: Seen and examined on telemetry. Events noted, notes reviewed, resting in bed denies any chest discomfort, reports persistent dyspnea, denies any orthopnea or paroxysmal nocturnal dyspnea Patient as usual has demonstrated poor compliance with medical therapy administration and hence recurrent admissions/hospitalizations, patient has been counseled on several occasion in reference to the above noted issue- compliance with medical therapy administration - Current Medication List Current Medications Generic Name Dose Route Start Last Admin Trade Name Freq PRN Reason Stop Dose Admin Acetaminophen 1,000 mg 11/25/19 08:17 11/28/19 01:10 Tylenol - PO 1,000 mg Q6H PRN Administration PAIN LEVEL 1-5 Albuterol/Ipratropium 1 amp 11/25/19 16:30 11/28/19 20:25 Duoneb - NEB 1 amp RQID PUSH[facility] Administration Aspirin 81 mg 11/25/19 11:30 11/28/19 09:22 Ecotrin - PO 81 mg DAILY [facility] Administration Atorvastatin Calcium 40 mg 11/25/19 22:00 11/28/19 21:50 Lipitor - PO 40 mg HS P[facility] Administration Budesonide/Formoterol Fumarate 1 puff 11/25/19 22:00 11/28/19 21:52 Symbicort 80/4.5mcg - IH 1 puff BID P[facility] Administration Clopidogrel Bisulfate 75 mg 11/26/19 10:45 11/28/19 09:22 Plavix - PO 75 mg DAILY [facility] Administration Furosemide 40 mg 11/28/19 10:00 11/28/19 09:22 Lasix - PO 40 mg DAILY [facility] Administration Heparin Sodium (Porcine) 5,000 unit 11/25/19 02:00 11/29/19 05:54 Heparin - SQ 5,000 unit TID [facility] Administration Hydralazine HCl 100 mg 11/25/19 12:00 11/29/19 05:54 Apresoline - PO 100 mg TID [facility] Administration Insulin Aspart 1 vial 11/25/19 07:00 11/29/19 06:04 Novolog Vial Sliding Scale - SQ 6 unit ACHS [facility] Administration Protocol Insulin Detemir 10 units 11/28/19 11:00 11/29/19 06:03 Levemir Vial SQ 10 unit BID@0700,2200 [facility] Administration Isosorbide Mononitrate 60 mg 11/25/19 12:00 11/28/19 09:22 Imdur - PO 60 mg DAILY [facility] Administration Labetalol HCl 400 mg 11/27/19 14:00 11/29/19 05:54 Normodyne - PO 400 mg TID [facility] Administration Nifedipine 120 mg 11/28/19 10:00 11/28/19 09:23 Procardia Xl - PO 120 mg DAILY [facility] Administration Prednisone 40 mg 11/28/19 10:00 11/28/19 09:23 Deltasone - PO 40 mg DAILY [facility] Administration Spironolactone 50 mg 11/28/19 10:00 11/28/19 09:22 Aldactone - PO 50 mg DAILY [facility] Administration Tamsulosin HCl 0.4 mg 11/26/19 08:30 11/28/19 09:22 Flomax - PO 0.4 mg DAILY@0830 [facility] Administration - Review of Systems Constitutional: denies: Chills, Fever Cardiovascular: As noted above Respiratory: reports: Cough, denies: Hemoptysis, Orthopnea, PND Gastrointestinal: denies: Abdominal Pain, Constipation, Melena, Nausea, Rectal Bleeding, Vomiting Genitourinary: denies: Dysuria, Hematuria Musculoskeletal: denies: Back Pain, Joint Pain Neurological: denies: Dizziness, Syncope. denies: Confusion, Headache, Numbness, Seizure, Unsteady Gait - Objective Vital Signs: Last Vital Signs Temp Pulse Resp BP Pulse Ox 97.8 F 77 18 148/93 98 11/29/19 01:00 11/29/19 01:00 11/29/19 01:00 11/29/19 01:00 11/29/19 01:00 Intake & Output 11/26/19 11/27/19 11/28/19 11/29/19 23:59 23:59 23:59 23:59 Intake Total 9223 548 6063 Balance 1652 424 4220 Weight 230 lb 4 oz 238 lb 6.4 oz Neck: Supple Negative JVD Cardiovascular: S1 S2 Regular Rate and Rhythm Respiratory: Scattered Rhonchi Bilaterally Gastrointestinal: Soft Benign Normal Bowel Sounds Ext: Edema Labs: CBC, BMP 11/29/19 06:51 11/29/19 06:51 Hepatic Panel Total Bilirubin 0.5 mg/dL (0.2-1) 11/29/19 06:51 AST 38 U/L (15-37) H 11/29/19 06:51 ALT 78 U/L (13-61) H 11/29/19 06:51 Alkaline Phosphatase 162 U/L (45-117) H 11/29/19 06:51 Albumin 2.9 g/dl (3.4-5.0) L 11/29/19 06:51 CBC, BMP 11/28/19 06:41 11/28/19 17:55 Hepatic Panel Total Bilirubin 0.5 mg/dL (0.2-1) 11/28/19 06:41 AST 37 U/L (15-37) 11/28/19 06:41 ALT 61 U/L (13-61) 11/28/19 06:41 Alkaline Phosphatase 172 U/L (45-117) H 11/28/19 06:41 Albumin 3.2 g/dl (3.4-5.0) L 11/28/19 06:41 INR, PTT INR 1.08 (0.83-1.09) 11/24/19 17:40 Assessment/Plan ASSESSMENT: 1. Chest pain syndrome in a patient with known history of coronary artery disease post PR/PCI/stent angina pectoris 2. Diastolic left ventricular dysfunction with acute on chronic class I-II NYHA classification LV diastolic failure, currently clinically compensated/euvolemic 3. History of COPD with intermittent acute exacerbations/History of coronavirus/COVID 19 pneumonitis 4. Hypertensive cardiovascular disease, not at goal- history of poor compliance with therapy administration 5. DM 6. Hypercholesterolemia 7. History of cerebro-vascular disease 8. History of carotid stenosis post right CEA 9. History of abdominal aortic aneurysm/4.3 cm infra-renal with mural thrombus 10. CKD 11. Anemia 12. History of substance abuse (Cocaine) 13. History of angioedema related to ACEI therapy PLAN: 1. Continue Furosemide and Spironolactone therapies with close monitoring of renal function and electrolytes 2. Continue Labetolol 3. Continue Hydralazine and Imdur therapies 4. Continue Procardia XL (counseled again importance of compliance to therapy administration) 5. Continue ASA and Plavix therapies with caution 6. Continue Lipitor 7. Continue bronchodilators as per the primary team 8. Counselled substance abuse cessation and smoking cessation 9. Patient is not an ideal patient for further invasive cardiovascular evaluation/testing- right and left heart catheterization/coronary angiography since he has demonstrated poor compliance with medical follow-up and therapy administration Fabienne Hayward MD
[2019-11-29 07:26] LABS: HEMATOCRIT 35.5 % (35.4-49); HEMOGLOBIN 11.3 GM/dL (11.7-16.9); MCH 30.5 pg (25.7-33.7); MCHC 31.9 g/dl (32.0-35.9); MEAN CELL VOLUME 95.6 fl (80-96); MEAN PLT VOLUME 7.3 fl (7.5-11.1); PLATELET COUNT 415 K/MM3 (134-434); RBC 3.71 M/mm3 (4.00-5.60); RDW 14.4 % (11.9-15.9); WHITE BLOOD COUNT 12.8 K/mm3 (4.0-10.0)
[2019-11-29] MEDS: ALBUTEROL SO4 2.5/IPRATROPIUM 0.5 INH SOL 3 ML VIAL.NEB. NEB SCH ×4 (07:35→20:37)
[2019-11-29 07:59] LABS: ALBUMIN 2.9 g/dl (3.4-5.0); BILIRUBIN,TOTAL 0.5 mg/dL (0.2-1); BLOOD UREA NITROGEN 38.8 mg/dL (7-18); CALCIUM 9.1 mg/dL (8.5-10.1); CREATININE 1.8 mg/dL (0.55-1.3); TOT PROT 7.2 g/dl (6.4-8.2)
[2019-11-29] MEDS: predniSONE 20 MG TABLET (UD) PO SCH (09:35)
[2019-11-29] MEDS: FUROSEMIDE 40 MG TABLET (FP) PO SCH (09:35)
[2019-11-29] MEDS: CLOPIDOGREL BISULFATE 75 MG TABLET (FP) PO SCH (09:35)
[2019-11-29] MEDS: SPIRONOLACTONE 25 MG TABLET PO SCH ×2 (09:35→21:03)
[2019-11-29] MEDS: NIFEdipine E.R 60 MG TABLET PO SCH (09:35)
[2019-11-29] MEDS: ISOSORBIDE MONONITRATE 60 MG TAB.SR.24H (FP) PO SCH (09:35)
[2019-11-29] MEDS: TAMSULOSIN HCL 0.4 MG CAP PO SCH (09:35)
[2019-11-29] MEDS: ASPIRIN COATED 81 MG TABLET.EC PO SCH (09:36)
[2019-11-29] MEDS: BUDESONIDE/FORMETEROL FUMARATE 80/4.5 mcg INHALER IH SCH ×2 (09:36→21:03)
[2019-11-29] MEDS: Insulin (LOG) Aspart 100 UNITS/ML VIAL SQ SCH ×2 (11:22→16:39)
--- NOTE | 2019-11-29 11:24 | PN ---
Teaching Attending Note Name of Resident: Harley Palacios ATTENDING PHYSICIAN STATEMENT I saw and evaluated the patient. I reviewed the resident's note and discussed the case with the resident. I agree with the resident's findings and plan as documented. SUBJECTIVE: Seen and examined at bedside. Wheezing resolved. Remains hyperglycemic. Stero ids discontinued. Insulin dosing increased. Creatinine improving. Will observe overnight with plan for discharge tomorrow if creatinine and glucose control continue to improve OBJECTIVE Last Vital Signs Temp Pulse Resp BP Pulse Ox 98.0 F 71 18 147/75 100 11/29/19 10:00 11/29/19 10:00 11/29/19 10:00 11/29/19 10:00 11/29/19 10:00 PE: GEN: NAD HEENT: NC/AT ISRAELLL RESP: CTAB CARDS: RRR, -MRG ABD: soft, nt/nd +BS EXT: No swelling/Edema Neuro: Non-focal, A&OX3 Labs/Imaging: reviewed ASSESSMENT/PLAN 59-year-old male past medical history of CKD stage III, asthma, CVA, CAD status post [place] x3 and multiple stents, nonischemic cardiomyopathy, HTN, HLD, DM 2, HFpEF, EtOH and cocaine abuse, COPD, AAA, culture positive in May presents with chest pain, dyspnea, and orthopnea after he ran out of medication 3 days ago #CHF exacerbation with acute hypoxic respiratory failure Appears close to euvolemic. lasix tapered to 40mg po daily. Cardiology on board: Appreciate recommendations Lasix PO 40mg daily, spironolactone 50mg daily Fluid restrict Daily weights K>4, Mg>2 #COPD exacerbation/airway hyperreactivity Breathing improving -switch to PO prednisone -duonebs q4h #GOGO 2/2 diuretic use -taper diuretics to 40mg daily #Steroid induced hyperglycemia -levemir 15U BID, lispro TIDAC -check A1C -tapering steroids #Hypertensive urgency: improving -cont home hydralazine 100mg TID -cont home spironolactone -cont imdur 60 -labetalol 400mg TID tomorrow -cont home procardia XL 120mg qd. #Hx CAD, stroke, AAA -cont home asa, statin #Chest/Back Pain: resolved pt has tenerdness in R trapezius muscle without stiffness of the muscle. Describes it as lightning. Reports he snapped his head back the other day -likley muscle strain vs radiculopathy. Unlikely aortic dissection -trops neg x3
--- NOTE | 2019-11-29 12:41 | PN ---
Progress Note, Physician History of Present Illness: Pt seen and examined at bedside. He is awake and alert. He feels that his breathing is improved. - Current Medication List Current Medications: Active Medications Acetaminophen (Tylenol -) 1,000 mg PO Q6H PRN PRN Reason: PAIN LEVEL 1-5 Last Admin: 11/28/19 01:10 Dose: 1,000 mg Documented by: Albuterol/Ipratropium (Duoneb -) 1 amp NEB RQID [facility] Last Admin: 11/29/19 11:05 Dose: 1 amp Documented by: Aspirin (Ecotrin -) 81 mg PO DAILY [facility] Last Admin: 11/29/19 09:36 Dose: 81 mg Documented by: Atorvastatin Calcium (Lipitor -) 40 mg PO HS [facility] Last Admin: 11/28/19 21:50 Dose: 40 mg Documented by: Budesonide/Formoterol Fumarate (Symbicort 80/4.5mcg -) 1 puff IH BID [facility] Last Admin: 11/29/19 09:36 Dose: 1 puff Documented by: Clopidogrel Bisulfate (Plavix -) 75 mg PO DAILY [facility] Last Admin: 11/29/19 09:35 Dose: 75 mg Documented by: Furosemide (Lasix -) 40 mg PO DAILY [facility] Last Admin: 11/29/19 09:35 Dose: 40 mg Documented by: Heparin Sodium (Porcine) (Heparin -) 5,000 unit SQ TID [facility] Last Admin: 11/29/19 05:54 Dose: 5,000 unit Documented by: Hydralazine HCl (Apresoline -) 100 mg PO TID [facility] Last Admin: 11/29/19 05:54 Dose: 100 mg Documented by: Insulin Aspart (Novolog Vial Sliding Scale -) 1 vial SQ [facility]; Protocol Last Admin: 11/29/19 11:21 Dose: 4 unit Documented by: Insulin Aspart (Novolog) 5 units SQ TIDAC [facility] Last Admin: 11/29/19 11:22 Dose: 5 units Documented by: Insulin Detemir (Levemir Vial) 15 units SQ BID@0700,2200 [facility] Last Admin: 11/29/19 09:35 Dose: 15 unit Documented by: Isosorbide Mononitrate (Imdur -) 60 mg PO DAILY [facility] Last Admin: 11/29/19 09:35 Dose: 60 mg Documented by: Labetalol HCl (Normodyne -) 400 mg PO TID [facility] Last Admin: 11/29/19 05:54 Dose: 400 mg Documented by: Nifedipine (Procardia Xl -) 120 mg PO DAILY [facility] Last Admin: 11/29/19 09:35 Dose: 120 mg Documented by: Prednisone (Deltasone -) 40 mg PO DAILY [facility] Last Admin: 11/29/19 09:35 Dose: 40 mg Documented by: Spironolactone (Aldactone -) 50 mg PO DAILY [facility] Last Admin: 11/29/19 09:35 Dose: 50 mg Documented by: Tamsulosin HCl (Flomax -) 0.4 mg PO DAILY@0830 [facility] Last Admin: 11/29/19 09:35 Dose: 0.4 mg Documented by: - Objective Vital Signs: Vital Signs Temperature 98.0 F 11/29/19 10:00 Pulse Rate 92 H 11/29/19 10:50 Respiratory Rate 18 11/29/19 10:00 Blood Pressure 147/75 11/29/19 10:00 O2 Sat by Pulse Oximetry (%) 92 L 11/29/19 10:50 Constitutional: Yes: Calm Eyes: Yes: Conjunctiva Clear HENT: Yes: Atraumatic Neck: Yes: Supple Cardiovascular: Yes: S1, S2 Respiratory: Yes: On Nasal O2 Gastrointestinal: Yes: Soft Genitourinary: Yes: WNL Musculoskeletal: Yes: WNL Edema: Yes Edema: LLE: Trace, RLE: Trace Neurological: Yes: Oriented Psychiatric: Yes: Oriented Labs: CBC, BMP 11/29/19 06:51 11/29/19 06:51 INR, PTT INR 1.08 (0.83-1.09) 11/24/19 17:40 Problem List - Problems (1) Chest pain Code(s): R07.9 - CHEST PAIN, UNSPECIFIED (2) Hypertensive urgency Code(s): I16.0 - HYPERTENSIVE URGENCY (3) Shortness of breath Code(s): R06.02 - SHORTNESS OF BREATH (4) CHF (congestive heart failure) Code(s): I50.9 - HEART FAILURE, UNSPECIFIED Qualifiers: Heart failure type: diastolic Heart failure chronicity: acute on chronic Qualified Code(s): I50.33 - Acute on chronic diastolic (congestive) heart failure (5) AAA (abdominal aortic aneurysm) Code(s): I71.4 - ABDOMINAL AORTIC ANEURYSM, WITHOUT RUPTURE (6) CKD (chronic kidney disease) stage 3, GFR 30-59 ml/min Code(s): N18.3 - CHRONIC KIDNEY DISEASE, STAGE 3 (MODERATE) * DO NOT USE * Assessment/Plan Current Medications Generic Name Dose Route Start Last Admin Trade Name Freq PRN Reason Stop Dose Admin Acetaminophen 1,000 mg 11/25/19 08:17 11/28/19 01:10 Tylenol - PO 1,000 mg Q6H PRN Administration PAIN LEVEL 1-5 Albuterol/Ipratropium 1 amp 11/25/19 16:30 11/28/19 11:51 Duoneb - NEB 1 amp RQID PUSH[facility] Administration Aspirin 81 mg 11/25/19 11:30 11/28/19 09:22 Ecotrin - PO 81 mg DAILY [facility] Administration Atorvastatin Calcium 40 mg 11/25/19 22:00 11/27/19 21:54 Lipitor - PO 40 mg HS P[facility] Administration Budesonide/Formoterol Fumarate 1 puff 11/25/19 22:00 11/28/19 09:23 Symbicort 80/4.5mcg - IH 1 puff BID [facility] Administration Clopidogrel Bisulfate 75 mg 11/26/19 10:45 11/28/19 09:22 Plavix - PO 75 mg DAILY [facility] Administration Furosemide 40 mg 11/28/19 10:00 11/28/19 09:22 Lasix - PO 40 mg DAILY [facility] Administration Heparin Sodium (Porcine) 5,000 unit 11/25/19 02:00 11/28/19 06:23 Heparin - SQ 5,000 unit TID P[facility] Administration Hydralazine HCl 100 mg 11/25/19 12:00 11/28/19 06:22 Apresoline - PO 100 mg TID P[facility] Administration Insulin Aspart 1 vial 11/25/19 07:00 11/28/19 11:20 Novolog Vial Sliding Scale - SQ 4 unit ACHS [facility] Administration Protocol Insulin Detemir 10 units 11/28/19 11:00 11/28/19 11:19 Levemir Vial SQ 10 unit BID@0700,2200 [facility] Administration Isosorbide Mononitrate 60 mg 11/25/19 12:00 11/28/19 09:22 Imdur - PO 60 mg DAILY [facility] Administration Labetalol HCl 400 mg 11/27/19 14:00 11/28/19 06:23 Normodyne - PO 400 mg TID [facility] Administration Nifedipine 120 mg 11/28/19 10:00 11/28/19 09:23 Procardia Xl - PO 120 mg DAILY [facility] Administration Prednisone 40 mg 11/28/19 10:00 11/28/19 09:23 Deltasone - PO 40 mg DAILY [facility] Administration Spironolactone 50 mg 11/28/19 10:00 11/28/19 09:22 Aldactone - PO 50 mg DAILY [facility] Administration Tamsulosin HCl 0.4 mg 11/26/19 08:30 11/28/19 09:22 Flomax - PO 0.4 mg DAILY@0830 [facility] Administration Impression 1. CKD with acute component 2. htn 3. dm 4. AAA 5. hx of covid 6. chest pain 7. hx etoh abuse 8. cocaine use 9. chest pain Plan - renal function stable - potassium stable - can change aldactone back to bid dosing - repeat labs in am - monitor lytes - discussed importance of compliance - pt has an ying allergy
--- NOTE | 2019-11-29 17:55 | PN ---
Physical Exam: SUBJECTIVE: Patient seen and examined at bedside. Denies any complaints. No acute events overnight. OBJECTIVE: Vital Signs Period Temp Pulse Resp BP Sys/Caal Pulse Ox Last 24 Hr 97.4 F-98.5 F 71-92 16-18 119-160/67-104 92-100 GENERAL: NAD HEAD: Normal with no signs of trauma. EYES: EOMI Sclera clear NECK: No JVD appreciated LUNGS: Clear to auscultation, no wheezing rales or rhonchi appreciated HEART: RRR S1S2 ABDOMEN: Soft, NDNT EXTREMITIES: No CCE NEUROLOGICAL: Cranial nerves II through XII grossly intact. PSYCH: Normal mood, normal affect. SKIN: Warm, dry, normal turgor, no rashes or lesions noted Laboratory Results - last 24 hr 11/28/19 11/28/19 11/29/19 17:55 19:35 05:33 WBC RBC Hgb Hct MCV MCH MCHC RDW Plt Count MPV Sodium Potassium Chloride Carbon Dioxide Anion Gap BUN Creatinine Est GFR (CKD-EPI)AfAm Est GFR (CKD-EPI)NonAf POC Glucometer 302 255 Random Glucose 398 H Hemoglobin A1c % Calcium Total Bilirubin AST ALT Alkaline Phosphatase Total Protein Albumin 11/29/19 11/29/19 11/29/19 06:51 06:51 06:59 WBC 12.8 H RBC 3.71 L Hgb 11.3 L Hct 35.5 MCV 95.6 MCH 30.5 MCHC 31.9 L RDW 14.4 Plt Count 415 MPV 7.3 L Sodium 136 Potassium 4.0 Chloride 100 Carbon Dioxide 28 Anion Gap 8 BUN 38.8 H Creatinine 1.8 H Est GFR (CKD-EPI)AfAm 47.03 Est GFR (CKD-EPI)NonAf 40.58 POC Glucometer Random Glucose 297 H Hemoglobin A1c % 6.0 Calcium 9.1 Total Bilirubin 0.5 AST 38 H ALT 78 H Alkaline Phosphatase 162 H Total Protein 7.2 Albumin 2.9 L 11/29/19 11/29/19 11:21 16:37 WBC RBC Hgb Hct MCV MCH MCHC RDW Plt Count MPV Sodium Potassium Chloride Carbon Dioxide Anion Gap BUN Creatinine Est GFR (CKD-EPI)AfAm Est GFR (CKD-EPI)NonAf POC Glucometer 216 378 Random Glucose Hemoglobin A1c % Calcium Total Bilirubin AST ALT Alkaline Phosphatase Total Protein Albumin Active Medications Generic Name Dose Route Start Last Admin Trade Name Freq PRN Reason Stop Dose Admin Acetaminophen 1,000 mg 11/25/19 08:17 11/28/19 01:10 Tylenol - PO 1,000 mg Q6H PRN Administration PAIN LEVEL 1-5 Albuterol/Ipratropium 1 amp 11/25/19 16:30 11/29/19 11:05 Duoneb - NEB 1 amp RQID [facility] Administration Aspirin 81 mg 11/25/19 11:30 11/29/19 09:36 Ecotrin - PO 81 mg DAILY [facility] Administration Atorvastatin Calcium 40 mg 11/25/19 22:00 11/28/19 21:50 Lipitor - PO 40 mg HS [facility] Administration Budesonide/Formoterol Fumarate 1 puff 11/25/19 22:00 11/29/19 09:36 Symbicort 80/4.5mcg - IH 1 puff BID [facility] Administration Clopidogrel Bisulfate 75 mg 11/26/19 10:45 11/29/19 09:35 Plavix - PO 75 mg DAILY [facility] Administration Furosemide 40 mg 11/28/19 10:00 11/29/19 09:35 Lasix - PO 40 mg DAILY [facility] Administration Heparin Sodium (Porcine) 5,000 unit 11/25/19 02:00 11/29/19 14:30 Heparin - SQ 5,000 unit TID [facility] Administration Hydralazine HCl 100 mg 11/25/19 12:00 11/29/19 14:29 Apresoline - PO 100 mg TID [facility] Administration Insulin Aspart 1 vial 11/25/19 07:00 11/29/19 16:38 Novolog Vial Sliding Scale - SQ 10 unit ACHS [facility] Administration Protocol Insulin Aspart 5 units 11/29/19 11:00 11/29/19 16:39 Novolog SQ 5 units TIDAC [facility] Administration Insulin Detemir 15 units 11/29/19 08:30 11/29/19 09:35 Levemir Vial SQ 15 unit BID@0700,2200 [facility] Administration Isosorbide Mononitrate 60 mg 11/25/19 12:00 11/29/19 09:35 Imdur - PO 60 mg DAILY [facility] Administration Labetalol HCl 400 mg 11/27/19 14:00 11/29/19 14:29 Normodyne - PO 400 mg TID [facility] Administration Nifedipine 120 mg 11/28/19 10:00 11/29/19 09:35 Procardia Xl - PO 120 mg DAILY [facility] Administration Prednisone 40 mg 11/28/19 10:00 11/29/19 09:35 Deltasone - PO 40 mg DAILY [facility] Administration Spironolactone 50 mg 11/29/19 22:00 Aldactone - PO BID [facility] Tamsulosin HCl 0.4 mg 11/26/19 08:30 11/29/19 09:35 Flomax - PO 0.4 mg DAILY@0830 [facility] Administration ASSESSMENT/PLAN: Patient is a 59 year old man with PMH of HFpEF, CAD (hx 3 SC; PCI, stent placement), AAA (3.9 cm in 09/2019) hypertension, hyperlipidemia, COPD, NIDDM, S tage III CKD, CVA, polysubstance abuse (alcohol and cocaine), who is admitted for CHF exacerbation. #Acute on chronic CHF in setting of HTN urgency - lasix 40 po daily - monitored by Cardio - continue antihypertensives including: Labetolol, Hydraazine, Procardia, imdur - Spironolactone 50 BID, patient has allx to ACEi - conitnue ASA and lipitor - hx CAD: continue CLopidogrel - monitor daily weights #GOGO on CKD - spironolactone decreased - likely in the setting of increase lasix dosage - continue to monitor electrolytes #COPD exacerbation - prednisone taper with po 40 mg - continue resp treatments #DM - levemir 15U BID, lispro TIDAC - SS - diabetic diet DVT ppx: heparin TID Dispo: likely d/c tomorrow Visit type - Emergency Visit Emergency Visit: Yes ED Registration Date: 11/24/19 Care time: The patient presented to the Emergency Department on the above date and was hospitalized for further evaluation of their emergent condition. - New Patient This patient is new to me today: No - Critical Care Critical Care patient: No - Discharge Referral Referred to [facility] Med [facility].C[facility] No ATTENDING PHYSICIAN STATEMENT I saw and evaluated the patient. I reviewed the resident's note and discussed the case with the resident. I agree with the resident's findings and plan as documented. SUBJECTIVE: OBJECTIVE: ASSESSMENT AND PLAN:
[2019-11-29] MEDS: ATORVASTATIN CA 40 MG TABLET (FP) PO SCH (21:03)
[2019-11-30] MEDS: HEPARIN NA (PORCINE) 5,000 UNITS/ML 1ML VIAL SQ SCH ×2 (05:50→14:36)
[2019-11-30] MEDS: hydrALAZINE HCL 50 MG TABLET (FP) PO SCH ×2 (05:50→14:35)
[2019-11-30] MEDS: LABETALOL HCL 200 MG TABLET (FP) PO SCH ×2 (05:50→14:35)
[2019-11-30] MEDS: INSULIN SLIDING SCALE (NOVOLOG) 1 VIAL SQ SCH ×2 (06:47→11:44)
[2019-11-30] MEDS: Insulin (LOG) Aspart 100 UNITS/ML VIAL SQ SCH ×2 (06:49→11:44)
[2019-11-30] MEDS: INSULIN (LEVEMIR) 100 UNITS/ML UNITS SQ SCH (06:49)
[2019-11-30 07:34] LABS: HEMATOCRIT 35.7 % (35.4-49); HEMOGLOBIN 11.4 GM/dL (11.7-16.9); MCH 30.7 pg (25.7-33.7); MEAN CELL VOLUME 96.1 fl (80-96); MEAN PLT VOLUME 7.3 fl (7.5-11.1); PLATELET COUNT 425 K/MM3 (134-434); RBC 3.71 M/mm3 (4.00-5.60); RDW 14.3 % (11.9-15.9); WHITE BLOOD COUNT 12.6 K/mm3 (4.0-10.0)
[2019-11-30 07:54] LABS: BILIRUBIN,TOTAL 0.4 mg/dL (0.2-1); BLOOD UREA NITROGEN 38.8 mg/dL (7-18); CREATININE 1.8 mg/dL (0.55-1.3); MAGNESIUM 2.2 mg/dL (1.8-2.4); PHOSPHOROUS 3.9 mg/dL (2.5-4.9); POTASSIUM 4.1 mmol/L (3.5-5.1); TOT PROT 6.8 g/dl (6.4-8.2)
[2019-11-30] MEDS: ALBUTEROL SO4 2.5/IPRATROPIUM 0.5 INH SOL 3 ML VIAL.NEB. NEB SCH ×3 (08:08→15:20)
[2019-11-30] MEDS: TAMSULOSIN HCL 0.4 MG CAP PO SCH (08:56)
[2019-11-30] MEDS: CLOPIDOGREL BISULFATE 75 MG TABLET (FP) PO SCH (09:00)
[2019-11-30] MEDS: predniSONE 20 MG TABLET (UD) PO SCH (09:00)
[2019-11-30] MEDS: ISOSORBIDE MONONITRATE 60 MG TAB.SR.24H (FP) PO SCH (09:00)
[2019-11-30] MEDS: SPIRONOLACTONE 25 MG TABLET PO SCH (09:00)
[2019-11-30] MEDS: ASPIRIN COATED 81 MG TABLET.EC PO SCH (09:01)
[2019-11-30] MEDS: BUDESONIDE/FORMETEROL FUMARATE 80/4.5 mcg INHALER IH SCH (09:01)
[2019-11-30] MEDS: NIFEdipine E.R 60 MG TABLET PO SCH (09:01)
[2019-11-30] MEDS: FUROSEMIDE 40 MG TABLET (FP) PO SCH (09:01)
--- NOTE | 2019-11-30 09:13 | PN ---
Progress Note, Physician History of Present Illness: Ambulating in room, denies any chest discomfort, dyspnea worse than baseline, denies any orthopnea or paroxysmal nocturnal dyspnea or LE edema. Patient as usual has demonstrated poor compliance with medical therapy administration and hence recurrent admissions/hospitalizations, patient has been counseled on several occasion in reference to the above noted issue- compliance with medical therapy administration - Current Medication List Current Medications: Active Medications Acetaminophen (Tylenol -) 1,000 mg PO Q6H PRN PRN Reason: PAIN LEVEL 1-5 Last Admin: 11/28/19 01:10 Dose: 1,000 mg Documented by: Albuterol/Ipratropium (Duoneb -) 1 amp NEB RQID [facility] Last Admin: 11/30/19 08:08 Dose: 1 amp Documented by: Aspirin (Ecotrin -) 81 mg PO DAILY [facility] Last Admin: 11/30/19 09:01 Dose: 81 mg Documented by: Atorvastatin Calcium (Lipitor -) 40 mg PO HS [facility] Last Admin: 11/29/19 21:03 Dose: 40 mg Documented by: Budesonide/Formoterol Fumarate (Symbicort 80/4.5mcg -) 1 puff IH BID [facility] Last Admin: 11/30/19 09:01 Dose: 1 puff Documented by: Clopidogrel Bisulfate (Plavix -) 75 mg PO DAILY [facility] Last Admin: 11/30/19 09:00 Dose: 75 mg Documented by: Furosemide (Lasix -) 40 mg PO DAILY [facility] Last Admin: 11/30/19 09:01 Dose: 40 mg Documented by: Heparin Sodium (Porcine) (Heparin -) 5,000 unit SQ TID [facility] Last Admin: 11/30/19 05:50 Dose: Not Given Documented by: Hydralazine HCl (Apresoline -) 100 mg PO TID [facility] Last Admin: 11/30/19 05:50 Dose: 100 mg Documented by: Insulin Aspart (Novolog Vial Sliding Scale -) 1 vial SQ ACHS [facility]; Protocol Last Admin: 11/30/19 06:47 Dose: 8 unit Documented by: Insulin Aspart (Novolog) 5 units SQ TIDAC [facility] Last Admin: 11/30/19 06:49 Dose: 5 units Documented by: Insulin Detemir (Levemir Vial) 15 units SQ BID@0700,2200 [facility] Last Admin: 11/30/19 06:49 Dose: 15 unit Documented by: Isosorbide Mononitrate (Imdur -) 60 mg PO DAILY [facility] Last Admin: 11/30/19 09:00 Dose: 60 mg Documented by: Labetalol HCl (Normodyne -) 400 mg PO TID [facility] Last Admin: 11/30/19 05:50 Dose: 400 mg Documented by: Nifedipine (Procardia Xl -) 120 mg PO DAILY [facility] Last Admin: 11/30/19 09:01 Dose: 120 mg Documented by: Prednisone (Deltasone -) 40 mg PO DAILY [facility] Last Admin: 11/30/19 09:00 Dose: 40 mg Documented by: Spironolactone (Aldactone -) 50 mg PO BID [facility] Last Admin: 11/30/19 09:00 Dose: 50 mg Documented by: Tamsulosin HCl (Flomax -) 0.4 mg PO DAILY@0830 [facility] Last Admin: 11/30/19 08:56 Dose: 0.4 mg Documented by: - Objective Vital Signs: Vital Signs Temperature 97.9 F 11/30/19 08:46 Pulse Rate 74 11/30/19 08:46 Respiratory Rate 18 11/30/19 08:46 Blood Pressure 151/78 11/30/19 08:46 O2 Sat by Pulse Oximetry (%) 99 11/30/19 08:46 Constitutional: Yes: No Distress, Calm Neck: Yes: Supple Cardiovascular: Yes: Regular Rate and Rhythm Respiratory: Yes: Regular, Diminished Gastrointestinal: Yes: Normal Bowel Sounds, Soft Edema: No Labs: CBC, BMP 11/30/19 07:00 11/30/19 07:00 INR, PTT INR 1.08 (0.83-1.09) 11/24/19 17:40 - ....Imaging EKG: Report Reviewed (Tele: NSR) Problem List - Problems (1) Hypertensive urgency Code(s): I16.0 - HYPERTENSIVE URGENCY (2) Shortness of breath Code(s): R06.02 - SHORTNESS OF BREATH (3) CHF (congestive heart failure) Code(s): I50.9 - HEART FAILURE, UNSPECIFIED Qualifiers: Heart failure type: diastolic Heart failure chronicity: acute on chronic Qualified Code(s): I50.33 - Acute on chronic diastolic (congestive) heart failure (4) CAD (coronary artery disease) Code(s): I25.10 - ATHSCL HEART DISEASE OF [place] CORONARY ARTERY W/O ANG PCTRS Qualifiers: Coronary Disease-Associated Artery/Lesion type: [place] artery [place] vs. transplanted heart: [place] heart Associated angina: without angina Qualified Code(s): I25.10 - Atherosclerotic heart disease of [place] coronary artery without angina pectoris (5) CKD (chronic kidney disease) stage 3, GFR 30-59 ml/min Code(s): N18.3 - CHRONIC KIDNEY DISEASE, STAGE 3 (MODERATE) * DO NOT USE * (6) COPD (chronic obstructive pulmonary disease) Code(s): J44.9 - CHRONIC OBSTRUCTIVE PULMONARY DISEASE, UNSPECIFIED Qualifiers: COPD type: unspecified COPD Qualified Code(s): J44.9 - Chronic obstructive pulmonary disease, unspecified (7) Carotid stenosis, left Code(s): I65.22 - OCCLUSION AND STENOSIS OF LEFT CAROTID ARTERY (8) Cerebrovascular disease Code(s): I67.9 - CEREBROVASCULAR DISEASE, UNSPECIFIED (9) HTN (hypertension) Code(s): I10 - ESSENTIAL (PRIMARY) HYPERTENSION Qualifiers: Hypertension type: essential hypertension Qualified Code(s): I10 - Essential (primary) hypertension (10) Hyperlipidemia Code(s): E78.5 - HYPERLIPIDEMIA, UNSPECIFIED Qualifiers: Hyperlipidemia type: pure hypercholesterolemia Qualified Code(s): E78.00 - Pure hypercholesterolemia, unspecified (11) Polysubstance (excluding opioids) dependence Code(s): F19.20 - OTHER PSYCHOACTIVE SUBSTANCE DEPENDENCE, UNCOMPLICATED Assessment/Plan 10/20/2019: CTA: No PE, diffuse groundglass opacities and small bilateral effusions, 3.6 cm distal AAA, mediastinal adenopathy similar to previous 08/30/19 08/30/[address]: No PE, diffuse groundglass opacification, small bilateral effusions similar to previous 05/12/2019 01/03/2019 Echo: Mildly dilated, mild cLVH, low normal LVEF 50-55%, normal RV fxn, mild SHAHANA, mod-severe MR, mild-mod TR RVSP 58 mmHg, mild AR, [place] 12/02/2018 Mri of brain: No acute stroke, old right posterior temporal cortical infarct 12/02/2018 Carotid ultrasound should left moderate stenosis and vacular surgery consult pending 12/02/2018 Echo: Normal LV size and fxn with mod cLVH, normal RV size and fxn, mild SHAHANA, mild MR, TR, AR 12/01/2018 Ct head right 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 Chest pain syndrome in a patient with known history of coronary artery disease post [place]/PCI/stent angina pectoris 2. Diastolic left ventricular dysfunction with acute on chronic class I-II NYHA classification LV diastolic failure, currently clinically compensated/euvolemic 3. History of COPD with intermittent acute exacerbations/History of coronavirus/COVID 19 pneumonitis 4. Hypertensive cardiovascular disease, not at goal- history of poor compliance with therapy administration 5. DM 6. Hypercholesterolemia 7. History of cerebro-vascular disease 8. History of carotid stenosis post right CEA 9. History of abdominal aortic aneurysm/4.3 cm infra-renal with mural thrombus 10. CKD 11. Anemia 12. History of substance abuse (Cocaine) 13. History of angioedema related to ACEI therapy PLAN: 1. Continue Furosemide 40 qd and Spironolactone 50 bid with close monitoring of renal function and electrolytes 2. Continue Labetolol 400 tid 3. Continue Hydralazine 100 tid and Imdur 60 qd 4. Continue Procardia XL 120 qd 5. Continue ASA 81 qd and Plavix 75 qd 6. Continue Lipitor 40 qd 7. Continue bronchodilators, oral steroid taper, O2 as needed per the primary team 8. Counselled substance abuse cessation and smoking cessation 9. Patient is not an ideal patient for further invasive cardiovascular evaluation/testing- right and left heart catheterization/coronary angiography since he has demonstrated poor compliance with medical follow-up and therapy administration (counseled again importance of compliance to therapy administration) 10. June d/c home with f/u in office
--- NOTE | 2019-11-30 13:31 | PN ---
Teaching Attending Note Name of Resident: Harley Palacios ATTENDING PHYSICIAN STATEMENT I saw and evaluated the patient. I reviewed the resident's note and discussed the case with the resident. I agree with the resident's findings and plan as documented. SUBJECTIVE: Seen and examined at bedside. Wheezing resolved. Hyperglycemia and creatinine improving. Blood pressure relatively well controlled. Patient is medically cleared for discharge. Will be sent home on his home medications as well as a brief insulin taper given his steroid-induced hyperglycemiae OBJECTIVE Last Vital Signs Temp Pulse Resp BP Pulse Ox 98.0 F 71 18 147/75 100 11/29/19 10:00 11/29/19 10:00 11/29/19 10:00 11/29/19 10:11/29/19 10:00 PE: GEN: NAD HEENT: NC/AT [place] RESP: CTAB CARDS: RRR, -MRG ABD: soft, nt/nd +BS EXT: No swelling/Edema Neuro: Non-focal, A&OX3 Labs/Imaging: reviewed ASSESSMENT/PLAN 59-year-old male past medical history of CKD stage III, asthma, CVA, CAD status post ID x3 and multiple stents, nonischemic cardiomyopathy, HTN, HLD, DM 2, HFpEF, EtOH and cocaine abuse, COPD, AAA, culture positive in May presents with chest pain, dyspnea, and orthopnea after he ran out of medication 3 days ago. Patient was admitted for CHF exacerbation with acute hypoxic respiratory failure, COPD exacerbation, GOGO, and hypertensive urgency. Patient was diuresed, treated with his blood pressure medications and treated for COPD exacerbation with improvement. Course was complicated by steroid-induced hyperglycemia. Patient will be given all new prescriptions for his medications which per his request were sent to his outside pharmacy as well as a short insulin taper to treat his steroid-induced hyperglycemia. Patient should follow-up with his PCP within 1 to 2 weeks. The importance of medication adherence was strongly encouraged
[2019-11-30 13:34] VITALS: BP 121/64; PULSE 78; TEMP 98.4
--- NOTE | 2019-11-30 13:48 | PN ---
Progress Note, Physician History of Present Illness: Pt seen and examined at bedside. He is awake and alert. He denies shortness of breath. - Current Medication List Current Medications: Active Medications Acetaminophen (Tylenol -) 1,000 mg PO Q6H PRN PRN Reason: PAIN LEVEL 1-5 Last Admin: 11/28/19 01:10 Dose: 1,000 mg Documented by: Albuterol/Ipratropium (Duoneb -) 1 amp NEB RQID [facility] Last Admin: 11/30/19 11:15 Dose: 1 amp Documented by: Aspirin (Ecotrin -) 81 mg PO DAILY [facility] Last Admin: 11/30/19 09:01 Dose: 81 mg Documented by: Atorvastatin Calcium (Lipitor -) 40 mg PO HS [facility] Last Admin: 11/29/19 21:03 Dose: 40 mg Documented by: Budesonide/Formoterol Fumarate (Symbicort 80/4.5mcg -) 1 puff IH BID [facility] Last Admin: 11/30/19 09:01 Dose: 1 puff Documented by: Clopidogrel Bisulfate (Plavix -) 75 mg PO DAILY [facility] Last Admin: 11/30/19 09:00 Dose: 75 mg Documented by: Furosemide (Lasix -) 40 mg PO DAILY [facility] Last Admin: 11/30/19 09:01 Dose: 40 mg Documented by: Heparin Sodium (Porcine) (Heparin -) 5,000 unit SQ TID [facility] Last Admin: 11/30/19 05:50 Dose: Not Given Documented by: Hydralazine HCl (Apresoline -) 100 mg PO TID [facility] Last Admin: 11/30/19 05:50 Dose: 100 mg Documented by: Insulin Aspart (Novolog Vial Sliding Scale -) [address] [facility]; Protocol Last Admin: 11/30/19 11:44 Dose: Not Given Documented by: Insulin Aspart (Novolog) 5 units SQ TIDAC [facility] Last Admin: 11/30/19 11:44 Dose: Not Given Documented by: Insulin Detemir (Levemir Vial) 15 units SQ BID@0700,2200 [facility] Last Admin: 11/30/19 06:49 Dose: 15 unit Documented by: Isosorbide Mononitrate (Imdur -) 60 mg PO DAILY [facility] Last Admin: 11/30/19 09:00 Dose: 60 mg Documented by: Labetalol HCl (Normodyne -) 400 mg PO TID [facility] Last Admin: 11/30/19 05:50 Dose: 400 mg Documented by: Nifedipine (Procardia Xl -) 120 mg PO DAILY [facility] Last Admin: 11/30/19 09:01 Dose: 120 mg Documented by: Prednisone (Deltasone -) 40 mg PO DAILY [facility] Last Admin: 11/30/19 09:00 Dose: 40 mg Documented by: Spironolactone (Aldactone -) 50 mg PO BID [facility] Last Admin: 11/30/19 09:00 Dose: 50 mg Documented by: Tamsulosin HCl (Flomax -) 0.4 mg PO DAILY@0830 [facility] Last Admin: 11/30/19 08:56 Dose: 0.4 mg Documented by: - Objective Vital Signs: Vital Signs Temperature 98.4 F 11/30/19 13:32 Pulse Rate 78 11/30/19 13:32 Respiratory Rate 16 11/30/19 13:32 Blood Pressure 121/64 11/30/19 13:32 O2 Sat by Pulse Oximetry (%) 99 11/30/19 09:00 Constitutional: Yes: Calm Eyes: Yes: Conjunctiva Clear HENT: Yes: Atraumatic Neck: Yes: Supple Cardiovascular: Yes: S1, S2 Respiratory: Yes: CTA Bilaterally Gastrointestinal: Yes: Soft Genitourinary: Yes: WNL Musculoskeletal: Yes: WNL Extremities: Yes: WNL Edema: No Neurological: Yes: Oriented Psychiatric: Yes: Oriented Labs: CBC, BMP 11/30/19 07:00 11/30/19 07:00 INR, PTT INR 1.08 (0.83-1.09) 11/24/19 17:40 Problem List - Problems (1) Chest pain Code(s): R07.9 - CHEST PAIN, UNSPECIFIED (2) Hypertensive urgency Code(s): I16.0 - HYPERTENSIVE URGENCY (3) Shortness of breath Code(s): R06.02 - SHORTNESS OF BREATH (4) CHF (congestive heart failure) Code(s): I50.9 - HEART FAILURE, UNSPECIFIED Qualifiers: Heart failure type: diastolic Heart failure chronicity: acute on chronic Qualified Code(s): I50.33 - Acute on chronic diastolic (congestive) heart failure (5) AAA (abdominal aortic aneurysm) Code(s): I71.4 - ABDOMINAL AORTIC ANEURYSM, WITHOUT RUPTURE (6) CKD (chronic kidney disease) stage 3, GFR 30-59 ml/min Code(s): N18.3 - CHRONIC KIDNEY DISEASE, STAGE 3 (MODERATE) * DO NOT USE * Assessment/Plan Current Medications Generic Name Dose Route Start Last Admin Trade Name Freq PRN Reason Stop Dose Admin Acetaminophen 1,000 mg 11/25/19 08:17 11/28/19 01:10 Tylenol - PO 1,000 mg Q6H PRN Administration PAIN LEVEL 1-5 Albuterol/Ipratropium 1 amp 11/25/19 16:30 11/30/19 11:15 Duoneb - NEB 1 amp RQID [facility] Administration Aspirin 81 mg 11/25/19 11:30 11/30/19 09:01 Ecotrin - PO 81 mg DAILY [facility] Administration Atorvastatin Calcium 40 mg 11/25/19 22:00 11/29/19 21:03 Lipitor - PO 40 mg HS [facility] Administration Budesonide/Formoterol Fumarate 1 puff 11/25/19 22:00 11/30/19 09:01 Symbicort 80/4.5mcg - IH 1 puff BID [facility] Administration Clopidogrel Bisulfate 75 mg 11/26/19 10:45 11/30/19 09:00 Plavix - PO 75 mg DAILY [facility] Administration Furosemide 40 mg 11/28/19 10:00 11/30/19 09:01 Lasix - PO 40 mg DAILY [facility] Administration Heparin Sodium (Porcine) 5,000 unit 11/25/19 02:00 11/30/19 05:50 Heparin - SQ Not Given TID [facility] Hydralazine HCl 100 mg 11/25/19 12:00 11/30/19 05:50 Apresoline - PO 100 mg TID [facility] Administration Insulin Aspart 1 vial 11/25/19 07:00 11/30/19 11:44 Novolog Vial Sliding Scale - SQ Not Given ACHS [facility] Protocol Insulin Aspart 5 units 11/29/19 11:00 11/30/19 11:44 Novolog SQ Not Given TIDAC [facility] Insulin Detemir 15 units 11/29/19 08:30 11/30/19 06:49 Levemir Vial SQ 15 unit BID@0700,2200 [facility] Administration Isosorbide Mononitrate 60 mg 11/25/19 12:00 11/30/19 09:00 Imdur - PO 60 mg DAILY [facility] Administration Labetalol HCl 400 mg 11/27/19 14:00 11/30/19 05:50 Normodyne - PO 400 mg TID [facility] Administration Nifedipine 120 mg 11/28/19 10:00 11/30/19 09:01 Procardia Xl - PO 120 mg DAILY [facility] Administration Prednisone 40 mg 11/28/19 10:00 11/30/19 09:00 Deltasone - PO 40 mg DAILY [facility] Administration Spironolactone 50 mg 11/29/19 22:00 11/30/19 09:00 Aldactone - PO 50 mg BID [facility] Administration Tamsulosin HCl 0.4 mg 11/26/19 08:30 11/30/19 08:56 Flomax - PO 0.4 mg DAILY@0830 [facility] Administration Impression 1. CKD with acute component 2. htn 3. dm 4. AAA 5. hx of covid 6. chest pain 7. hx etoh abuse 8. cocaine use 9. chest pain Plan - cont to monitor renal function - pt needs outpt follow up - discussed importance of compliance with meds - avoid cocaine - cont lasix and aldactone - pt has an ying allergy
[2019-11-30] MEDS ORDERED: PCA PUMP NR ONE ×2 (18:21→18:22)
--- NOTE | 2019-11-30 18:24 | DS ---
Physical Exam: SUBJECTIVE: Patient seen and examined OBJECTIVE: Vital Signs Period Temp Pulse Resp BP Sys/Caal Pulse Ox Last 24 Hr 97.9 F-98.8 F 71-78 16-20 121-155/64-94 94-100 PHYSICAL EXAM GENERAL: The patient is awake, alert, and fully oriented, in no acute distress. HEAD: Normal with no signs of trauma. EYES: PERRL, extraocular movements intact, sclera anicteric, conjunctiva clear. ENT: Ears normal, nares patent, oropharynx clear without exudates, moist mucous membranes. NECK: Trachea midline, full range of motion, supple. LUNGS: Breath sounds equal, clear to auscultation bilaterally, no wheezes, no crackles, no accessory muscle use. HEART: Regular rate and rhythm, S1, S2 without murmur, rub or gallop. ABDOMEN: Soft, nontender, nondistended, normoactive bowel sounds, no guarding, no rebound, no hepatosplenomegaly, no masses. EXTREMITIES: 2+ pulses, warm, well-perfused, no edema. NEUROLOGICAL: Cranial nerves II through XII grossly intact. Normal speech, gait not observed. PSYCH: Normal mood, normal affect. SKIN: Warm, dry, normal turgor, no rashes or lesions noted. LABS Laboratory Results - last 24 hr 11/29/19 11/30/19 11/30/19 21:02 07:00 07:00 WBC 12.6 H RBC 3.71 L Hgb 11.4 L Hct 35.7 MCV 96.1 H MCH 30.7 MCHC 32.0 RDW 14.3 Plt Count 425 MPV 7.3 L Sodium 134 L Potassium 4.1 Chloride 99 Carbon Dioxide 29 Anion Gap 6 L BUN 38.8 H Creatinine 1.8 H Est GFR (CKD-EPI)AfAm 47.03 Est GFR (CKD-EPI)NonAf 40.58 POC Glucometer 388 Random Glucose 317 H Calcium 9.0 Phosphorus 3.9 Magnesium 2.2 Total Bilirubin 0.4 AST 29 ALT 78 H Alkaline Phosphatase 185 H Total Protein 6.8 Albumin 3.0 L 11/30/19 11:43 WBC RBC Hgb Hct MCV MCH MCHC RDW Plt Count MPV Sodium Potassium Chloride Carbon Dioxide Anion Gap BUN Creatinine Est GFR (CKD-EPI)AfAm Est GFR (CKD-EPI)NonAf POC Glucometer 93 Random Glucose Calcium Phosphorus Magnesium Total Bilirubin AST ALT Alkaline Phosphatase Total Protein Albumin HOSPITAL COURSE: Date of Admission:11/24/19 Date of Discharge: 11/30/19 Discharge Summary Problems reviewed: Yes Reason For Visit: HYPERTENSIVE EMERGENCY, CONGESTIVE HEART FAILURE Current Active Problems Chest pain (Acute) Hypertensive urgency (Acute) Shortness of breath (Acute) CHF (congestive heart failure) (Chronic) Condition: Improved - Instructions Diet, Activity, Other Instructions: You presented to the hospital due to uncontrolled elevated blood pressure. You were restarted on your home medications for high blood pressure. It is very important for you to take your mediations everyday as prescribed. Uncontrolled high blood pressure can lead to stroke and heart disease. You Furosemide medication has been changed to ONCE daily. You will be sent home on a short course of IV Insulin. Please take 10 Units tonight and then 5 Units tomorrow morning (11/30) and then 5 Units tomorrow night (11/30) Please follow up with your primary care doctor this week to recheck your blood pressure and repeat your blood work. Some of the medications you are on may adversely affect your kidney function and it is very important to monitor your kidney function regularly. Please return to the emergency department immediately if you begin to experience chest pain, shortness of breath, lightheadedness, blurry vision, or any other abnormal symptoms . Referrals: Lenny Hernandez MD [Staff Physician] - 1 Week Nils Ro MD [Staff Physician] - 2 Weeks Disposition: HOME - Home Medications Comprehensive Discharge Medication List: Ambulatory Orders Fluticasone Propionate [Flovent Hfa] 2 puff IH BID 06/21/19 Albuterol 2.5/Ipratropium 0.5 [Duoneb -] 1 amp NEB TID PRN #10 amp 09/01/19 Albuterol Sulfate Inhaler - [Ventolin HFA Inhaler -] 1 - 2 inh PO Q4H PRN #2 inhaler 09/01/19 Aspirin Coated [Ecotrin -] 81 mg PO DAILY #30 tablet.ec 09/01/19 Ergocalciferol (Vitamin D2) [Vitamin D2] 50,000 unit PO FR #30 cap 09/01/19 Hydralazine HCl 100 mg PO TID #90 tablet 09/01/19 Metformin HCl [Glucophage] 1,000 mg PO BID #60 tablet 09/01/19 Nebulizer and Compressor [[place] Choice Nebulizer] 1 each MC PRN #1 each 09/01/19 Nifedipine ER [Procardia XL -] 120 mg PO DAILY #60 tab.er.24 09/01/19 Tamsulosin HCl [Flomax -] 0.4 mg PO DAILY@0830 #30 cap.er.24h 09/01/19 Atorvastatin Ca [Lipitor] 40 mg PO HS #30 tablet 10/22/19 Budesonide/Formeterol Fumarate [SYMBICORT 80/4.5mcg -] 1 puff IH BID #1 inhaler 10/22/19 Clopidogrel Bisulfate [Plavix] 75 mg PO DAILY #30 tablet 10/22/19 Glipizide Xl [Glucotrol Xl -] 2.5 mg PO DAILY #30 tab.sr 10/22/19 Labetalol HCl [Normodyne -] 400 mg PO TID #90 tablet 10/22/19 Spironolactone [Aldactone -] 50 mg PO BID #60 tablet 10/22/19 hydrALAZINE HCL [Apresoline -] 100 mg PO TID #90 tablet 10/22/19 Lidocaine 5% Patch [Lidoderm -] 1 patch TP DAILY@1900 #30 patch 10/23/19 Furosemide [Lasix -] 40 mg PO DAILY #30 tablet 11/30/19 Insulin Detemir [Levemir Flextouch] 5 unit SQ BID #1 insuln.pen 11/30/19 - Discharge Referral Referred to [facility] No ATTENDING PHYSICIAN STATEMENT I saw and evaluated the patient. I reviewed the resident's note and discussed the case with the resident. I agree with the resident's findings and plan as documented. SUBJECTIVE: OBJECTIVE: ASSESSMENT AND PLAN:
[2019-12-03 14:08] LABS: RENIN ACTIVITY(PRA) 0.907 ng/mL/hr (0.167-5.380)
== END 2019-11-30 17:00 | disposition home or self-care (01) | DRG 194 ==
LOC: JER 17:05 → JERBED 20:27 → J4S 21:43
PROVIDERS: ADMIT Internal Medicine; ATTEND Internal Medicine
DX: I13.0 Hypertensive heart and chronic kidney disease with heart failure and stage 1 through stage 4 chronic kidney disease, or unspecified chronic kidney disease (principal); I50.33 Acute on chronic diastolic (congestive) heart failure; J96.01 Acute respiratory failure with hypoxia; N17.9 Acute kidney failure, unspecified; E11.22 Type 2 diabetes mellitus with diabetic chronic kidney disease; F11.20 Opioid dependence, uncomplicated; E11.42 Type 2 diabetes mellitus with diabetic polyneuropathy; J44.1 Chronic obstructive pulmonary disease with (acute) exacerbation; N18.30 Chronic kidney disease, stage 3 unspecified; I42.8 Other cardiomyopathies; E78.5 Hyperlipidemia, unspecified; I25.2 Old myocardial infarction; J44.9 Chronic obstructive pulmonary disease, unspecified; N18.9 Chronic kidney disease, unspecified; Z86.73 Personal history of transient ischemic attack (TIA), and cerebral infarction without residual deficits; F10.10 Alcohol abuse, uncomplicated; F14.10 Cocaine abuse, uncomplicated; I16.0 Hypertensive urgency; I25.10 Atherosclerotic heart disease of native coronary artery without angina pectoris; I71.4 Abdominal aortic aneurysm, without rupture; Z95.5 Presence of coronary angioplasty implant and graft; Z79.84 Long term (current) use of oral hypoglycemic drugs; R74.01 Elevation of levels of liver transaminase levels; Z91.14 Patient's other noncompliance with medication regimen; M54.9 Dorsalgia, unspecified; F17.210 Nicotine dependence, cigarettes, uncomplicated; N40.0 Benign prostatic hyperplasia without lower urinary tract symptoms; E66.9 Obesity, unspecified; Z68.31 Body mass index [BMI] 31.0-31.9, adult
CPT/HCPCS: 36415; 71045-TC-FY; 76775-TC; 80048; 80053; 80307; 81003; 82088; 82550; 82553; 82565; 82947; 82962; 83036; 83735; 83880; 84100; 84156; 84244; 84484; 85025; 85027; 85610; 85730; 93005; 93010; 93971-TC; 94640; 94761; 99291; J0131; J1644; U0003

== ENCOUNTER 2020-01-31 14:26 | Inpatient (IN) | payer OTHER ==
[2020-01-31] MEDS ORDERED: methylPREDNISolone NA SUCC 125 MG/2 ML VIAL IVPUSH ONE (15:33)
[2020-01-31] MEDS ORDERED: ALBUTEROL SO4 2.5/IPRATROPIUM 0.5 INH SOL 3 ML VIAL.NEB. NEB ONE ×4 (15:33→19:49)
[2020-01-31] MEDS ORDERED: ALBUTEROL SO4 HFA INHALER IH ONE ×2 (15:38→15:45)
[2020-01-31] MEDS ORDERED: AZITHROMYCIN IVPB 500 MG in DEXTROSE 5%-WATER - 250 ML IVPB ONE (15:41)
[2020-01-31 15:54] LABS: VENOUS BASE EXCESS -1.2 mmol/L (-2-2); VENOUS O2 SATURATION 47.2 % (70-80); VENOUS PCO2 48.8 mmHg (38-52); VENOUS PH 7.331 (7.310-7.410)
[2020-01-31] MEDS ORDERED: methylPREDNISolone NA SUCC 125 MG/2 ML VIAL ONE (15:57)
[2020-01-31] MEDS ORDERED: AZITHROMYCIN IVPB 500 MG/250 ML BAG IVPB ONE (15:57)
[2020-01-31 15:58] LABS: BASO % 0.3 % (0-2.0); HEMATOCRIT 35.2 % (35.4-49); HEMOGLOBIN 11.2 GM/dL (11.7-16.9); LYMPH % 11.3 % (8-40); MCH 30.6 pg (25.7-33.7); MCHC 31.9 g/dl (32.0-35.9); MEAN CELL VOLUME 95.8 fl (80-96); MEAN PLT VOLUME 7.4 fl (7.5-11.1); MONO % 7.2 % (3.8-10.2); NEUT % 79.2 % (42.8-82.8); PLATELET COUNT 315 K/MM3 (134-434); RBC 3.68 M/mm3 (4.00-5.60); RDW 14.3 % (11.9-15.9); WHITE BLOOD COUNT 11.1 K/mm3 (4.0-10.0)
[2020-01-31 16:16] LABS: POTASSIUM 4.2 mmol/L (3.5-5.1)
[2020-01-31 16:17] LABS: CALCIUM 8.6 mg/dL (8.5-10.1)
[2020-01-31 16:18] LABS: ALBUMIN 3.1 g/dl (3.4-5.0); BLOOD UREA NITROGEN 15.5 mg/dL (7-18); MAGNESIUM 2.3 mg/dL (1.8-2.4)
[2020-01-31 16:21] LABS: CREATININE 1.4 mg/dL (0.55-1.3)
[2020-01-31 16:22] LABS: BILIRUBIN,TOTAL 0.5 mg/dL (0.2-1)
[2020-01-31 16:24] LABS: TOT PROT 7.1 g/dl (6.4-8.2)
[2020-01-31 16:27] LABS: N-TERMINAL BNP 3781.8 pg/ml (5-125)
[2020-01-31] MEDS: ALBUTEROL SO4 2.5/IPRATROPIUM 0.5 INH SOL 3 ML VIAL.NEB. NEB SCH ×2 (19:52→20:42)
[2020-01-31] MEDS ORDERED: LABETALOL HCL 200 MG TABLET (FP) PO STA (20:33)
[2020-01-31] MEDS ORDERED: FUROSEMIDE 40 MG/4 ML INJECTABLE VIAL IVPUSH ONE (20:34)
[2020-01-31] MEDS ORDERED: FUROSEMIDE 40 MG TABLET (FP) PO STA (20:34)
[2020-01-31] MEDS ORDERED: FUROSEMIDE 40 MG TABLET (FP) ONE (20:48)
[2020-01-31] MEDS ORDERED: LABETALOL HCL 100 MG TABLET (FP) ONE (20:49)
[2020-01-31] MEDS ORDERED: ALBUTEROL SO4 HFA INHALER IH PRN (22:58)
[2020-01-31 23:26] LABS: EPI CELLS 4 /uL (0-25.1); HYALINE CASTS 1 /uL (0-3.1); URINE APPEARANCE CLEAR; URINE BACTERIA 3 /uL (0-1359); URINE BILIRUBIN NEGATIVE (NEGATIVE); URINE COLOR YELLOW; URINE GLUCOSE (UA) 3+ (NEGATIVE); URINE KETONE NEGATIVE (NEGATIVE); URINE LEUK ESTERASE NEGATIVE (NEGATIVE); URINE NITRITE NEGATIVE (NEGATIVE); URINE PROTEIN 3+ (NEGATIVE); URINE RBC 7 /uL (0-23.9); URINE UROBILINOGEN 0.2 mg/dL (0.2-1.0); URINE WBC 5 /uL (0-25.8)
[2020-01-31] MEDS ORDERED: HEPARIN NA (PORCINE) 5,000 UNITS/ML 1ML VIAL ONE (23:44)
[2020-01-31] MEDS ORDERED: ATORVASTATIN CA 40 MG TABLET (FP) ONE (23:44)
[2020-01-31] MEDS: HEPARIN NA (PORCINE) 5,000 UNITS/ML 1ML VIAL SQ SCH (23:50)
[2020-01-31] MEDS: ATORVASTATIN CA 40 MG TABLET (FP) PO SCH (23:51)
[2020-02-01] MEDS ORDERED: FUROSEMIDE 40 MG/4 ML INJECTABLE VIAL ONE (00:05)
[2020-02-01] MEDS ORDERED: methylPREDNISolone NA SUCC 40 MG/1 ML VIAL ONE (00:05)
[2020-02-01] MEDS: methylPREDNISolone NA SUCC 40 MG/1 ML VIAL IVPUSH SCH ×2 (00:15→09:22)
[2020-02-01] MEDS ORDERED: FUROSEMIDE 100 MG/10 ML INJECTABLE VIAL IVPB ONE ×2 (00:17→22:30)
[2020-02-01 00:54] LABS: OPIATES, URI NEGATIVE ng/ml (CUTOFF=300); PHENCYCLIDINE,URINE NEGATIVE ng/ml (CUTOFF=25)
[2020-02-01 00:55] LABS: URINE BARBITURATES NEGATIVE ng/ml (CUTOFF=200); URINE BENZODIAZEPINES NEGATIVE ng/ml (CUTOFF=200)
[2020-02-01 00:56] LABS: METHADONE, UR NEGATIVE ng/ml (CUTOFF=300); URINE AMPHETAMINES NEGATIVE ng/ml (CUTOFF=500)
[2020-02-01 00:57] LABS: COCAINE, UR POSITIVE ng/ml (CUTOFF=300)
[2020-02-01 03:31] VITALS: BMI 34.2
[2020-02-01] MEDS: HEPARIN NA (PORCINE) 5,000 UNITS/ML 1ML VIAL SQ SCH ×3 (05:41→22:03)
[2020-02-01] MEDS: hydrALAZINE HCL 50 MG TABLET (FP) PO SCH ×3 (05:41→22:03)
[2020-02-01] MEDS ORDERED: LABETALOL HCL 200 MG TABLET (FP) PO SCH (06:00)
[2020-02-01 07:39] LABS: HEMATOCRIT 35.9 % (35.4-49); HEMOGLOBIN 11.2 GM/dL (11.7-16.9); MCH 30.4 pg (25.7-33.7); MCHC 31.3 g/dl (32.0-35.9); MEAN CELL VOLUME 97.3 fl (80-96); MEAN PLT VOLUME 8.1 fl (7.5-11.1); PLATELET COUNT 315 K/MM3 (134-434); RBC 3.68 M/mm3 (4.00-5.60); RDW 14.5 % (11.9-15.9); WHITE BLOOD COUNT 11.8 K/mm3 (4.0-10.0)
[2020-02-01 07:44] LABS: POTASSIUM 4.7 mmol/L (3.5-5.1)
[2020-02-01 07:48] LABS: CALCIUM 8.5 mg/dL (8.5-10.1)
[2020-02-01 07:49] LABS: ALBUMIN 3.2 g/dl (3.4-5.0); BLOOD UREA NITROGEN 22.9 mg/dL (7-18); MAGNESIUM 2.1 mg/dL (1.8-2.4)
[2020-02-01 07:52] LABS: CREATININE 1.8 mg/dL (0.55-1.3)
[2020-02-01 07:53] LABS: BILIRUBIN,TOTAL 0.8 mg/dL (0.2-1); PHOSPHOROUS 3.9 mg/dL (2.5-4.9); TOT PROT 7.4 g/dl (6.4-8.2)
[2020-02-01] MEDS ORDERED: ALBUTEROL SO4 2.5/IPRATROPIUM 0.5 INH SOL 3 ML VIAL.NEB. NEB PRN (08:32)
[2020-02-01] MEDS: CLOPIDOGREL BISULFATE 75 MG TABLET (FP) PO SCH (09:21)
[2020-02-01] MEDS: SPIRONOLACTONE 25 MG TABLET PO SCH ×2 (09:21→22:03)
[2020-02-01] MEDS: NIFEdipine E.R 60 MG TABLET PO SCH (09:22)
[2020-02-01] MEDS: AZITHROMYCIN 250 MG TABLET PO SCH (09:22)
[2020-02-01] MEDS: FUROSEMIDE 40 MG/4 ML INJECTABLE VIAL IVPUSH SCH (09:34)
[2020-02-01] MEDS ORDERED: FLUTICASONE PROPIONATE IH SCH (10:00)
[2020-02-01] MEDS ORDERED: PT OWN MED DRAWER 7, Y5N ONE (10:47)
[2020-02-01] MEDS: BUDESONIDE/FORMETEROL FUMARATE 80/4.5 mcg INHALER IH SCH ×2 (10:48→22:17)
[2020-02-01 15:47] LABS: POTASSIUM 4.5 mmol/L (3.5-5.1)
[2020-02-01 15:48] LABS: CALCIUM 8.8 mg/dL (8.5-10.1)
[2020-02-01 15:49] LABS: BLOOD UREA NITROGEN 30.7 mg/dL (7-18)
[2020-02-01 15:53] LABS: CREATININE 2.1 mg/dL (0.55-1.3)
[2020-02-01] MEDS ORDERED: INSULIN REGULAR HUMAN 100 UNITS/ML *VIAL SQ ONE (15:56)
[2020-02-01] MEDS ORDERED: INSULIN (NOVOLOG) ASPART 100 UNITS/ML 10ML VIAL SQ ONE (15:56)
[2020-02-01] MEDS ORDERED: INSULIN REGULAR HUMAN 100 UNITS/ML *VIAL IVPUSH ONE (15:56)
[2020-02-01] MEDS ORDERED: INSULIN (LEVEMIR) 100 UNITS/ML UNITS SQ ONE (15:58)
[2020-02-01] MEDS ORDERED: methylPREDNISolone NA SUCC 40 MG/1 ML VIAL IVPUSH SCH (16:00)
[2020-02-01] MEDS ORDERED: INSULIN SLIDING SCALE (NOVOLOG) 1 VIAL SQ SCH (16:30)
[2020-02-01] MEDS: INSULIN SLIDING SCALE (NOVOLOG) 1 VIAL SQ SCH ×2 (17:07→22:17)
[2020-02-01] MEDS: ATORVASTATIN CA 40 MG TABLET (FP) PO SCH (22:03)
[2020-02-02] MEDS: HEPARIN NA (PORCINE) 5,000 UNITS/ML 1ML VIAL SQ SCH ×2 (06:29→14:56)
[2020-02-02] MEDS: hydrALAZINE HCL 50 MG TABLET (FP) PO SCH ×2 (06:29→14:56)
[2020-02-02] MEDS: INSULIN SLIDING SCALE (NOVOLOG) 1 VIAL SQ SCH ×2 (06:29→12:32)
[2020-02-02] MEDS: FUROSEMIDE 40 MG/4 ML INJECTABLE VIAL IVPUSH SCH (09:16)
[2020-02-02] MEDS: SPIRONOLACTONE 25 MG TABLET PO SCH (09:16)
[2020-02-02] MEDS: CLOPIDOGREL BISULFATE 75 MG TABLET (FP) PO SCH (09:16)
[2020-02-02] MEDS: AZITHROMYCIN 250 MG TABLET PO SCH (09:17)
[2020-02-02] MEDS: NIFEdipine E.R 60 MG TABLET PO SCH (09:20)
[2020-02-02] MEDS: BUDESONIDE/FORMETEROL FUMARATE 80/4.5 mcg INHALER IH SCH (09:24)
[2020-02-02] MEDS ORDERED: methylPREDNISolone NA SUCC 40 MG/1 ML VIAL IVPUSH SCH (10:00)
[2020-02-02] MEDS ORDERED: INSULIN (LEVEMIR) 100 UNITS/ML UNITS SQ SCH (10:00)
[2020-02-02] MEDS: LABETALOL HCL 200 MG TABLET (FP) PO SCH ×2 (10:37→14:56)
[2020-02-02 11:04] LABS: URINE UREA NITROGEN 855 mg/dL (350-1000)
[2020-02-02 12:10] LABS: POTASSIUM 4.1 mmol/L (3.5-5.1)
[2020-02-02 12:13] LABS: CALCIUM 9.1 mg/dL (8.5-10.1)
[2020-02-02 12:14] LABS: BLOOD UREA NITROGEN 31.6 mg/dL (7-18); MAGNESIUM 2.6 mg/dL (1.8-2.4)
[2020-02-02 12:17] LABS: CREATININE 1.8 mg/dL (0.55-1.3); PHOSPHOROUS 3.9 mg/dL (2.5-4.9)
[2020-02-02 14:07] VITALS: BP 117/74; PULSE 85; TEMP 98
== END 2020-02-02 17:06 | disposition home or self-care (01) | DRG 194 ==
LOC: JER 14:26 → JERBED 19:28 → J4W 02-01 02:53
PROVIDERS: ADMIT Internal Medicine; ATTEND Student in an Organized Health Care Education/Training Program
DX: I13.0 Hypertensive heart and chronic kidney disease with heart failure and stage 1 through stage 4 chronic kidney disease, or unspecified chronic kidney disease (principal); I50.33 Acute on chronic diastolic (congestive) heart failure; I25.10 Atherosclerotic heart disease of native coronary artery without angina pectoris; J44.1 Chronic obstructive pulmonary disease with (acute) exacerbation; E78.5 Hyperlipidemia, unspecified; F19.10 Other psychoactive substance abuse, uncomplicated; Z72.89 Other problems related to lifestyle; I16.0 Hypertensive urgency; E66.01 Morbid (severe) obesity due to excess calories; Z68.34 Body mass index [BMI] 34.0-34.9, adult; R07.9 Chest pain, unspecified; E11.65 Type 2 diabetes mellitus with hyperglycemia; N17.9 Acute kidney failure, unspecified; N18.30 Chronic kidney disease, stage 3 unspecified; J44.9 Chronic obstructive pulmonary disease, unspecified; Z95.5 Presence of coronary angioplasty implant and graft; Z91.14 Patient's other noncompliance with medication regimen
CPT/HCPCS: 36415; 71045-TC-FY; 73560-TC-RT-FY; 80048; 80053; 80307; 81003; 82010; 82550; 82565; 82803; 82962; 83036; 83735; 83880; 84100; 84300; 84484; 84540; 85025; 85027; 93005; 93010; 94640; 99285-25; C9803; J1644; U0003

== ENCOUNTER 2020-03-15 12:38 | Inpatient (IN) | payer OTHER ==
[2020-03-15] MEDS ORDERED: FUROSEMIDE 40 MG/4 ML INJECTABLE VIAL IVPUSH ONE (14:04)
[2020-03-15] MEDS ORDERED: FUROSEMIDE 40 MG/4 ML INJECTABLE VIAL ONE (14:18)
[2020-03-15 14:31] LABS: BASO % 0.5 % (0-2.0); HEMATOCRIT 35.4 % (35.4-49); HEMOGLOBIN 11.5 GM/dL (11.7-16.9); LYMPH % 9.8 % (8-40); MCH 31.1 pg (25.7-33.7); MCHC 32.6 g/dl (32.0-35.9); MEAN CELL VOLUME 95.3 fl (80-96); MEAN PLT VOLUME 7.5 fl (7.5-11.1); MONO % 6.9 % (3.8-10.2); NEUT % 81.8 % (42.8-82.8); PLATELET COUNT 342 K/MM3 (134-434); RBC 3.71 M/mm3 (4.00-5.60); RDW 14.8 % (11.9-15.9); WHITE BLOOD COUNT 10.5 K/mm3 (4.0-10.0)
[2020-03-15 14:37] LABS: INR 1.05 (0.83-1.09); PROTHROMBIN TIME (PATIENT) 12.7 SEC (9.7-13.0)
[2020-03-15 14:40] LABS: ACTIVATED PTT 31.7 SECONDS (25.2-36.5)
[2020-03-15 14:49] LABS: CHLORIDE 106 mmol/L (98-107); POTASSIUM 4.6 mmol/L (3.5-5.1); SODIUM 135 mmol/L (136-145)
[2020-03-15 14:50] LABS: CALCIUM 9.5 mg/dL (8.5-10.1)
[2020-03-15 14:52] LABS: ALBUMIN 3.5 g/dl (3.4-5.0); ANION GAP 4 MMOL/L (8-16); BLOOD UREA NITROGEN 21.5 mg/dL (7-18); CO2 25 mmol/L (21-32); GLUCOSE,RANDOM 198 mg/dL (74-106)
[2020-03-15 14:55] LABS: SGPT/ALT 30 U/L (13-61)
[2020-03-15 14:56] LABS: SGOT/AST 20 U/L (15-37)
[2020-03-15 14:57] LABS: BILIRUBIN,TOTAL 0.9 mg/dL (0.2-1); TOT PROT 7.6 g/dl (6.4-8.2)
[2020-03-15 14:58] LABS: ALK PHOS 163 U/L (45-117); CREATININE 1.5 mg/dL (0.55-1.3)
[2020-03-15 15:00] LABS: N-TERMINAL BNP 2195.2 pg/ml (5-125)
[2020-03-15] MEDS ORDERED: LABETALOL HCL 200 MG TABLET (FP) PO SCH (22:00)
[2020-03-15] MEDS ORDERED: hydrALAZINE HCL 25 MG TABLET (FP) ONE (22:28)
[2020-03-15] MEDS ORDERED: ATORVASTATIN CA 40 MG TABLET (FP) ONE (22:28)
[2020-03-15] MEDS ORDERED: SPIRONOLACTONE 25 MG TABLET ONE (22:28)
[2020-03-15] MEDS ORDERED: HEPARIN NA (PORCINE) 5,000 UNITS/ML 1ML VIAL ONE (22:29)
[2020-03-15] MEDS: hydrALAZINE HCL 50 MG TABLET (FP) PO SCH (22:40)
[2020-03-15] MEDS: SPIRONOLACTONE 25 MG TABLET PO SCH (22:40)
[2020-03-15] MEDS: HEPARIN NA (PORCINE) 5,000 UNITS/ML 1ML VIAL SQ SCH (22:40)
[2020-03-15] MEDS: INSULIN (LEVEMIR) 100 UNITS/ML UNITS SQ SCH (22:40)
[2020-03-15] MEDS: ATORVASTATIN CA 40 MG TABLET (FP) PO SCH (22:40)
[2020-03-15] MEDS: INSULIN SLIDING SCALE (NOVOLOG) 1 VIAL SQ SCH (22:41)
[2020-03-16] MEDS ORDERED: LABETALOL HCL 5 MG/1 ML (100MG/20 ML VIAL) IVPUSH ONE ×2 (02:04→08:27)
[2020-03-16] MEDS ORDERED: LABETALOL HCL 5 MG/1 ML (200MG/40ML VIAL) IVPB ONE (02:04)
[2020-03-16] MEDS ORDERED: HEPARIN NA (PORCINE) 5,000 UNITS/ML 1ML VIAL ONE ×2 (06:52→14:37)
[2020-03-16] MEDS ORDERED: hydrALAZINE HCL 25 MG TABLET (FP) ONE (06:52)
[2020-03-16] MEDS: HEPARIN NA (PORCINE) 5,000 UNITS/ML 1ML VIAL SQ SCH ×4 (07:00→22:21)
[2020-03-16] MEDS: INSULIN (LEVEMIR) 100 UNITS/ML UNITS SQ SCH ×2 (07:00→22:19)
[2020-03-16] MEDS: hydrALAZINE HCL 50 MG TABLET (FP) PO SCH ×3 (07:00→22:18)
[2020-03-16] MEDS: INSULIN SLIDING SCALE (NOVOLOG) 1 VIAL SQ SCH ×4 (07:01→22:22)
[2020-03-16 08:51] LABS: HEMOGLOBIN 11.5 GM/dL (11.7-16.9); MCH 31.2 pg (25.7-33.7); MEAN CELL VOLUME 94.7 fl (80-96); MEAN PLT VOLUME 8.1 fl (7.5-11.1); PLATELET COUNT 361 K/MM3 (134-434); RBC 3.69 M/mm3 (4.00-5.60); RDW 14.7 % (11.9-15.9)
[2020-03-16 09:16] LABS: POTASSIUM 4.3 mmol/L (3.5-5.1)
[2020-03-16 09:19] LABS: ALBUMIN 3.3 g/dl (3.4-5.0); BLOOD UREA NITROGEN 24.3 mg/dL (7-18); CALCIUM 8.8 mg/dL (8.5-10.1); MAGNESIUM 1.9 mg/dL (1.8-2.4)
[2020-03-16 09:22] LABS: CREATININE 1.6 mg/dL (0.55-1.3)
[2020-03-16 09:23] LABS: PHOSPHOROUS 3.2 mg/dL (2.5-4.9)
[2020-03-16 09:24] LABS: BILIRUBIN,TOTAL 0.6 mg/dL (0.2-1); TOT PROT 7.2 g/dl (6.4-8.2)
[2020-03-16] MEDS ORDERED: ERGOCALCIFEROL (VIT D2) 50,000 UNIT (1.25 MG) CAPSULE PO SCH ×2 (10:00→15:30)
[2020-03-16] MEDS ORDERED: FUROSEMIDE 40 MG TABLET (FP) PO SCH (10:00)
[2020-03-16] MEDS ORDERED: FUROSEMIDE 40 MG/4 ML INJECTABLE VIAL IVPUSH ONE ×2 (10:02→14:00)
[2020-03-16] MEDS ORDERED: CLOPIDOGREL BISULFATE 75 MG TABLET (FP) ONE (10:52)
[2020-03-16] MEDS ORDERED: SPIRONOLACTONE 25 MG TABLET ONE (10:52)
[2020-03-16] MEDS ORDERED: FUROSEMIDE 40 MG/4 ML INJECTABLE VIAL ONE (10:53)
[2020-03-16] MEDS: CLOPIDOGREL BISULFATE 75 MG TABLET (FP) PO SCH (10:55)
[2020-03-16] MEDS: NIFEdipine E.R 60 MG TABLET PO SCH (10:55)
[2020-03-16] MEDS: SPIRONOLACTONE 25 MG TABLET PO SCH ×2 (10:55→22:17)
[2020-03-16 16:13] VITALS: BMI 33.7
[2020-03-16] MEDS ORDERED: PT OWN MED DRAWER 7, Y5N ONE (16:28)
[2020-03-16] MEDS: ATORVASTATIN CA 40 MG TABLET (FP) PO SCH ×2 (22:00→22:18)
[2020-03-16] MEDS ORDERED: FLUTICASONE PROPIONATE IH SCH (22:00)
[2020-03-16] MEDS: BUDESONIDE/FORMETEROL FUMARATE 80/4.5 mcg INHALER IH SCH (22:00)
[2020-03-16] MEDS: MOMETASONE FUROATE 220 MCG/IH INHALER IH SCH (22:19)
[2020-03-16] MEDS: LABETALOL HCL 200 MG TABLET (FP) PO SCH (22:25)
[2020-03-17] MEDS: hydrALAZINE HCL 50 MG TABLET (FP) PO SCH ×3 (05:56→21:45)
[2020-03-17] MEDS: LABETALOL HCL 200 MG TABLET (FP) PO SCH ×3 (05:56→21:46)
[2020-03-17] MEDS: HEPARIN NA (PORCINE) 5,000 UNITS/ML 1ML VIAL SQ SCH ×2 (05:58→13:07)
[2020-03-17] MEDS: INSULIN SLIDING SCALE (NOVOLOG) 1 VIAL SQ SCH ×4 (06:08→21:47)
[2020-03-17] MEDS: INSULIN (LEVEMIR) 100 UNITS/ML UNITS SQ SCH ×2 (06:09→21:53)
[2020-03-17 09:39] LABS: HEMATOCRIT 35.7 % (35.4-49); HEMOGLOBIN 11.9 GM/dL (11.7-16.9); MCH 31.6 pg (25.7-33.7); MCHC 33.3 g/dl (32.0-35.9); MEAN CELL VOLUME 94.8 fl (80-96); PLATELET COUNT 372 K/MM3 (134-434); RBC 3.77 M/mm3 (4.00-5.60); RDW 15.1 % (11.9-15.9); WHITE BLOOD COUNT 8.6 K/mm3 (4.0-10.0)
[2020-03-17] MEDS: FUROSEMIDE 40 MG TABLET (FP) PO SCH (09:51)
[2020-03-17] MEDS: NIFEdipine E.R 60 MG TABLET PO SCH (09:51)
[2020-03-17] MEDS: ASPIRIN COATED 81 MG TABLET.EC PO SCH (09:51)
[2020-03-17] MEDS: SPIRONOLACTONE 25 MG TABLET PO SCH ×2 (09:51→21:46)
[2020-03-17] MEDS: CLOPIDOGREL BISULFATE 75 MG TABLET (FP) PO SCH (09:51)
[2020-03-17] MEDS: BUDESONIDE/FORMETEROL FUMARATE 80/4.5 mcg INHALER IH SCH ×2 (09:52→21:48)
[2020-03-17] MEDS: MOMETASONE FUROATE 220 MCG/IH INHALER IH SCH ×2 (09:52→21:54)
[2020-03-17] MEDS: TAMSULOSIN HCL 0.4 MG CAP PO SCH (09:52)
[2020-03-17 10:40] LABS: BLOOD UREA NITROGEN 21.5 mg/dL (7-18); CALCIUM 8.8 mg/dL (8.5-10.1)
[2020-03-17 10:41] LABS: ALBUMIN 3.2 g/dl (3.4-5.0)
[2020-03-17 10:43] LABS: CREATININE 1.6 mg/dL (0.55-1.3)
[2020-03-17 10:54] LABS: TOT PROT 7.1 g/dl (6.4-8.2)
[2020-03-17 10:55] LABS: BILIRUBIN,TOTAL 0.6 mg/dL (0.2-1)
[2020-03-17] MEDS ORDERED: AZITHROMYCIN 250 MG TABLET PO ONE (11:49)
[2020-03-17 13:00] LABS: MAGNESIUM 1.8 mg/dL (1.8-2.4)
[2020-03-18] MEDS: HEPARIN NA (PORCINE) 5,000 UNITS/ML 1ML VIAL SQ SCH ×3 (06:30→22:14)
[2020-03-18] MEDS: LABETALOL HCL 200 MG TABLET (FP) PO SCH (06:31)
[2020-03-18] MEDS: hydrALAZINE HCL 50 MG TABLET (FP) PO SCH ×3 (06:31→22:14)
[2020-03-18] MEDS: INSULIN (LEVEMIR) 100 UNITS/ML UNITS SQ SCH ×2 (06:40→22:23)
[2020-03-18] MEDS: INSULIN SLIDING SCALE (NOVOLOG) 1 VIAL SQ SCH ×4 (06:41→22:22)
[2020-03-18 07:53] LABS: BASO % 0.6 % (0-2.0); EOS % 1.7 % (0-4.5); HEMATOCRIT 35.5 % (35.4-49); HEMOGLOBIN 11.6 GM/dL (11.7-16.9); LYMPH % 12.6 % (8-40); MCH 31.2 pg (25.7-33.7); MCHC 32.7 g/dl (32.0-35.9); MEAN CELL VOLUME 95.3 fl (80-96); MEAN PLT VOLUME 7.8 fl (7.5-11.1); MONO % 11.9 % (3.8-10.2); NEUT % 73.2 % (42.8-82.8); PLATELET COUNT 373 K/MM3 (134-434); RBC 3.73 M/mm3 (4.00-5.60); RDW 15.1 % (11.9-15.9); WHITE BLOOD COUNT 8.6 K/mm3 (4.0-10.0)
[2020-03-18 08:25] LABS: POTASSIUM 4.6 mmol/L (3.5-5.1)
[2020-03-18 08:32] LABS: ALBUMIN 3.3 g/dl (3.4-5.0); BLOOD UREA NITROGEN 18.9 mg/dL (7-18); CALCIUM 8.8 mg/dL (8.5-10.1); MAGNESIUM 1.9 mg/dL (1.8-2.4)
[2020-03-18 08:36] LABS: CREATININE 1.7 mg/dL (0.55-1.3)
[2020-03-18 08:37] LABS: BILIRUBIN,TOTAL 0.6 mg/dL (0.2-1); TOT PROT 7.2 g/dl (6.4-8.2)
[2020-03-18] MEDS: FUROSEMIDE 40 MG TABLET (FP) PO SCH (09:26)
[2020-03-18] MEDS: ASPIRIN COATED 81 MG TABLET.EC PO SCH (09:26)
[2020-03-18] MEDS: TAMSULOSIN HCL 0.4 MG CAP PO SCH (09:26)
[2020-03-18] MEDS: CLOPIDOGREL BISULFATE 75 MG TABLET (FP) PO SCH (09:26)
[2020-03-18] MEDS: NIFEdipine E.R 60 MG TABLET PO SCH (09:26)
[2020-03-18] MEDS: AZITHROMYCIN 250 MG TABLET PO SCH (09:26)
[2020-03-18] MEDS: SPIRONOLACTONE 25 MG TABLET PO SCH ×2 (09:27→22:14)
[2020-03-18] MEDS: BUDESONIDE/FORMETEROL FUMARATE 80/4.5 mcg INHALER IH SCH ×2 (09:27→22:19)
[2020-03-18] MEDS: MOMETASONE FUROATE 220 MCG/IH INHALER IH SCH ×2 (09:27→22:18)
[2020-03-18 10:07] LABS: ANISOCYTOSIS 0; MACROCYTOSIS 0; PLATELET ESTIMATE NORMAL
[2020-03-18] MEDS ORDERED: CARVEDILOL 12.5 MG TABLET (FP) PO ONE (11:03)
[2020-03-18] MEDS ORDERED: CARVEDILOL 25 MG TABLET (FP) PO SCH (22:00)
[2020-03-18] MEDS: ATORVASTATIN CA 40 MG TABLET (FP) PO SCH (22:14)
[2020-03-18] MEDS: CARVEDILOL 25 MG TABLET (FP) PO SCH (22:14)
[2020-03-19] MEDS ORDERED: ACETAMINOPHEN 325 MG TABLET (FP) PO PRN (02:02)
[2020-03-19] MEDS: HEPARIN NA (PORCINE) 5,000 UNITS/ML 1ML VIAL SQ SCH (06:28)
[2020-03-19] MEDS: hydrALAZINE HCL 50 MG TABLET (FP) PO SCH (06:28)
[2020-03-19] MEDS: INSULIN SLIDING SCALE (NOVOLOG) 1 VIAL SQ SCH (06:30)
[2020-03-19] MEDS: INSULIN (LEVEMIR) 100 UNITS/ML UNITS SQ SCH (06:31)
[2020-03-19] MEDS ORDERED: INSULIN (NOVOLOG) ASPART 100 UNITS/ML 10ML VIAL ONE (07:49)
[2020-03-19 08:34] LABS: BASO % 0.9 % (0-2.0); EOS % 2.5 % (0-4.5); HEMATOCRIT 37.3 % (35.4-49); HEMOGLOBIN 11.9 GM/dL (11.7-16.9); LYMPH % 14.4 % (8-40); MCH 30.7 pg (25.7-33.7); MCHC 31.9 g/dl (32.0-35.9); MEAN CELL VOLUME 96.2 fl (80-96); MEAN PLT VOLUME 8.1 fl (7.5-11.1); MONO % 11.9 % (3.8-10.2); NEUT % 70.3 % (42.8-82.8); PLATELET COUNT 369 K/MM3 (134-434); RBC 3.87 M/mm3 (4.00-5.60); RDW 15.3 % (11.9-15.9); WHITE BLOOD COUNT 8.5 K/mm3 (4.0-10.0)
[2020-03-19 08:51] LABS: POTASSIUM 4.5 mmol/L (3.5-5.1)
[2020-03-19] MEDS ORDERED: PT OWN MED DRAWER 7, Y5N ONE (08:52)
[2020-03-19 09:00] LABS: CALCIUM 9.1 mg/dL (8.5-10.1)
[2020-03-19 09:01] LABS: ALBUMIN 3.1 g/dl (3.4-5.0); BLOOD UREA NITROGEN 21.1 mg/dL (7-18); MAGNESIUM 2.1 mg/dL (1.8-2.4)
[2020-03-19 09:04] LABS: CREATININE 1.5 mg/dL (0.55-1.3)
[2020-03-19 09:05] LABS: BILIRUBIN,TOTAL 0.6 mg/dL (0.2-1)
[2020-03-19] MEDS: FUROSEMIDE 40 MG TABLET (FP) PO SCH (09:28)
[2020-03-19] MEDS: TAMSULOSIN HCL 0.4 MG CAP PO SCH (09:28)
[2020-03-19] MEDS: SPIRONOLACTONE 25 MG TABLET PO SCH (09:28)
[2020-03-19] MEDS: AZITHROMYCIN 250 MG TABLET PO SCH (09:28)
[2020-03-19] MEDS: NIFEdipine E.R 60 MG TABLET PO SCH (09:28)
[2020-03-19] MEDS: CARVEDILOL 25 MG TABLET (FP) PO SCH (09:28)
[2020-03-19] MEDS: CLOPIDOGREL BISULFATE 75 MG TABLET (FP) PO SCH (09:28)
[2020-03-19] MEDS: MOMETASONE FUROATE 220 MCG/IH INHALER IH SCH (09:29)
[2020-03-19] MEDS: BUDESONIDE/FORMETEROL FUMARATE 80/4.5 mcg INHALER IH SCH (09:29)
[2020-03-19] MEDS: ASPIRIN COATED 81 MG TABLET.EC PO SCH (09:29)
[2020-03-19 10:17] VITALS: BP 179/109; PULSE 84; TEMP 98.2
[2020-03-19 11:56] LABS: ANISOCYTOSIS 0; MACROCYTOSIS 0; PLATELET ESTIMATE NORMAL
== END 2020-03-19 11:45 | disposition home or self-care (01) | DRG 199 ==
LOC: JER 12:38 → JERBED 17:24 → J4W 03-16 15:52
PROVIDERS: ATTEND Nurse Practitioner Family
DX: I16.0 Hypertensive urgency (principal); I13.0 Hypertensive heart and chronic kidney disease with heart failure and stage 1 through stage 4 chronic kidney disease, or unspecified chronic kidney disease; I50.33 Acute on chronic diastolic (congestive) heart failure; N13.9 Obstructive and reflux uropathy, unspecified; I25.10 Atherosclerotic heart disease of native coronary artery without angina pectoris; F10.10 Alcohol abuse, uncomplicated; J44.9 Chronic obstructive pulmonary disease, unspecified; E66.9 Obesity, unspecified; N18.30 Chronic kidney disease, stage 3 unspecified; F14.10 Cocaine abuse, uncomplicated; R07.89 Other chest pain; E11.9 Type 2 diabetes mellitus without complications; D64.9 Anemia, unspecified; Z95.5 Presence of coronary angioplasty implant and graft; I42.8 Other cardiomyopathies; Z68.33 Body mass index [BMI] 33.0-33.9, adult; Z91.14 Patient's other noncompliance with medication regimen; N40.0 Benign prostatic hyperplasia without lower urinary tract symptoms
CPT/HCPCS: 36415; 71046-TC-FY; 80053; 82550; 82962; 83036; 83735; 83880; 84100; 84443; 84484; 85025; 85027; 85610; 85730; 93005; 93010; 93970-TC; 99285-25; C9803; J1644; U0003

== ENCOUNTER 2020-05-15 18:56 | Inpatient (IN) | payer OTHER ==
[2020-05-15 19:12] VITALS: BMI 32.9
[2020-05-15] MEDS ORDERED: FAMOTIDINE 20 MG/50 ML IVPB 20 MG/50 ML MG IVPB ONE (21:34)
[2020-05-15] MEDS ORDERED: SODIUM CHLORIDE 1,000 ML IV STA (21:34)
[2020-05-15 21:51] LABS: BASO % 0.5 % (0-2.0); EOS % 1.1 % (0-4.5); HEMATOCRIT 31.9 % (35.4-49); HEMOGLOBIN 10.6 GM/dL (11.7-16.9); LYMPH % 16.8 % (8-40); MCH 31.6 pg (25.7-33.7); MCHC 33.1 g/dl (32.0-35.9); MEAN CELL VOLUME 95.4 fl (80-96); MEAN PLT VOLUME 7.7 fl (7.5-11.1); MONO % 5.4 % (3.8-10.2); NEUT % 76.2 % (42.8-82.8); PLATELET COUNT 336 K/MM3 (134-434); RBC 3.34 M/mm3 (4.00-5.60); RDW 14.6 % (11.9-15.9); WHITE BLOOD COUNT 9.3 K/mm3 (4.0-10.0)
[2020-05-15 22:02] LABS: INR 1.12 (0.83-1.09); PROTHROMBIN TIME (PATIENT) 13.7 SEC (9.7-13.0)
[2020-05-15 22:04] LABS: ACTIVATED PTT 28.6 SECONDS (25.2-36.5)
[2020-05-15 22:14] LABS: CALCIUM 9.4 mg/dL (8.5-10.1); CHLORIDE 101 mmol/L (98-107); SODIUM 134 mmol/L (136-145)
[2020-05-15 22:16] LABS: ALBUMIN 3.1 g/dl (3.4-5.0); ANION GAP 10 MMOL/L (8-16); BLOOD UREA NITROGEN 28.3 mg/dL (7-18); CO2 22 mmol/L (21-32); LIPASE 59 U/L (73-393); MAGNESIUM 2.2 mg/dL (1.8-2.4)
[2020-05-15 22:17] LABS: GLUCOSE,RANDOM 241 mg/dL (74-106)
[2020-05-15 22:19] LABS: CREATININE 2.1 mg/dL (0.55-1.3); SGOT/AST 30 U/L (15-37); SGPT/ALT 37 U/L (13-61)
[2020-05-15 22:21] LABS: BILIRUBIN,TOTAL 0.5 mg/dL (0.2-1)
[2020-05-15 22:22] LABS: ALK PHOS 172 U/L (45-117)
[2020-05-15 22:24] LABS: N-TERMINAL BNP 4781.4 pg/ml (5-125)
[2020-05-16] MEDS ORDERED: FUROSEMIDE 40 MG/4 ML INJECTABLE VIAL IVPUSH ONE (00:45)
[2020-05-16] MEDS ORDERED: SODIUM CHLORIDE 500 ML IV STA (00:46)
[2020-05-16] MEDS ORDERED: FUROSEMIDE 40 MG/4 ML INJECTABLE VIAL ONE (00:48)
[2020-05-16] MEDS: SPIRONOLACTONE 25 MG TABLET PO SCH ×2 (09:00→22:57)
[2020-05-16] MEDS: TAMSULOSIN HCL 0.4 MG CAP PO SCH (09:00)
[2020-05-16] MEDS: INSULIN SLIDING SCALE (NOVOLOG) 1 VIAL SQ SCH ×4 (09:00→21:43)
[2020-05-16] MEDS: PANTOPRAZOLE 20 MG TABLET PO SCH ×2 (09:00→21:43)
[2020-05-16] MEDS: NIFEdipine E.R 60 MG TABLET PO SCH (09:00)
[2020-05-16] MEDS ORDERED: TAMSULOSIN HCL 0.4 MG CAP ONE (09:17)
[2020-05-16] MEDS ORDERED: CARVEDILOL 12.5 MG TABLET (FP) ONE (09:17)
[2020-05-16] MEDS ORDERED: SPIRONOLACTONE 25 MG TABLET ONE ×2 (09:17→09:28)
[2020-05-16] MEDS ORDERED: PANTOPRAZOLE 20 MG TABLET PO ONE (09:17)
[2020-05-16] MEDS ORDERED: HEPARIN NA (PORCINE) 5,000 UNITS/ML 1ML VIAL SQ SCH (10:00)
[2020-05-16] MEDS: CARVEDILOL 25 MG TABLET (FP) PO SCH ×2 (11:13→21:43)
[2020-05-16 12:05] LABS: BASO % 0.6 % (0-2.0); EOS % 1.1 % (0-4.5); HEMATOCRIT 31.8 % (35.4-49); HEMOGLOBIN 10.5 GM/dL (11.7-16.9); LYMPH % 9.8 % (8-40); MCH 31.7 pg (25.7-33.7); MCHC 32.9 g/dl (32.0-35.9); MEAN CELL VOLUME 96.3 fl (80-96); MEAN PLT VOLUME 7.8 fl (7.5-11.1); MONO % 7.7 % (3.8-10.2); NEUT % 80.8 % (42.8-82.8); PLATELET COUNT 325 K/MM3 (134-434); WHITE BLOOD COUNT 7.9 K/mm3 (4.0-10.0)
[2020-05-16 12:26] LABS: ALBUMIN 2.8 g/dl (3.4-5.0); BLOOD UREA NITROGEN 26.6 mg/dL (7-18); CALCIUM 9.1 mg/dL (8.5-10.1); MAGNESIUM 2.2 mg/dL (1.8-2.4)
[2020-05-16 12:29] LABS: PHOSPHOROUS 3.8 mg/dL (2.5-4.9)
[2020-05-16 12:30] LABS: CREATININE 2.1 mg/dL (0.55-1.3)
[2020-05-16 12:31] LABS: BILIRUBIN,TOTAL 0.4 mg/dL (0.2-1); TOT PROT 6.7 g/dl (6.4-8.2)
[2020-05-16] MEDS: MOMETASONE FUROATE 220 MCG/IH INHALER IH SCH ×2 (13:23→22:11)
[2020-05-16] MEDS: hydrALAZINE HCL 50 MG TABLET (FP) PO SCH ×2 (14:33→21:43)
[2020-05-16] MEDS: ALBUTEROL SO4 HFA INHALER IH ONE ×2 (16:23→16:29)
[2020-05-16] MEDS: ALBUTEROL SO4 2.5/IPRATROPIUM 0.5 INH SOL 3 ML VIAL.NEB. NEB PRN (20:10)
[2020-05-16] MEDS: ATORVASTATIN CA 40 MG TABLET (FP) PO SCH (21:43)
[2020-05-16] MEDS ORDERED: FAMOTIDINE 20 MG TABLET PO ONE (23:11)
[2020-05-17] MEDS ORDERED: MAG HYDROX/AL HYDROX/SIMETH 30 ML UNIT-DOSE CUP PO ONE (00:41)
[2020-05-17] MEDS ORDERED: LIDOCAINE VISCOUS 2% ORAL/TOP 20 ML UNIT-DOSE CUP MM ONE (00:42)
[2020-05-17] MEDS: hydrALAZINE HCL 50 MG TABLET (FP) PO SCH ×3 (05:49→21:56)
[2020-05-17] MEDS: INSULIN SLIDING SCALE (NOVOLOG) 1 VIAL SQ SCH ×4 (07:01→21:51)
[2020-05-17] MEDS: ALBUTEROL SO4 2.5/IPRATROPIUM 0.5 INH SOL 3 ML VIAL.NEB. NEB PRN ×2 (07:03→15:19)
[2020-05-17 08:19] LABS: CALCIUM 9.1 mg/dL (8.5-10.1)
[2020-05-17 08:21] LABS: BLOOD UREA NITROGEN 28.2 mg/dL (7-18)
[2020-05-17 08:24] LABS: CREATININE 1.8 mg/dL (0.55-1.3)
[2020-05-17] MEDS: TAMSULOSIN HCL 0.4 MG CAP PO SCH (09:15)
[2020-05-17] MEDS: SPIRONOLACTONE 25 MG TABLET PO SCH ×2 (09:16→21:56)
[2020-05-17] MEDS: FUROSEMIDE 40 MG/4 ML INJECTABLE VIAL IVPUSH SCH (09:16)
[2020-05-17] MEDS: NIFEdipine E.R 60 MG TABLET PO SCH (09:16)
[2020-05-17] MEDS: CARVEDILOL 25 MG TABLET (FP) PO SCH ×2 (09:16→21:50)
[2020-05-17] MEDS: PANTOPRAZOLE 20 MG TABLET PO SCH ×2 (09:17→21:50)
[2020-05-17] MEDS ORDERED: FUROSEMIDE 40 MG TABLET (FP) PO SCH (10:00)
[2020-05-17] MEDS: MOMETASONE FUROATE 220 MCG/IH INHALER IH SCH ×2 (10:29→21:56)
[2020-05-17] MEDS: SIMETHICONE 80 MG TAB.CHEW (FP) PO SCH ×4 (10:29→21:50)
[2020-05-17] MEDS: ASPIRIN COATED 81 MG TABLET.EC PO SCH (10:31)
[2020-05-17] MEDS: HEPARIN NA (PORCINE) 5,000 UNITS/ML 1ML VIAL SQ SCH ×2 (10:38→21:50)
[2020-05-17] MEDS: INSULIN (LEVEMIR) 100 UNITS/ML UNITS SQ SCH ×2 (10:39→21:51)
[2020-05-17] MEDS: CLOPIDOGREL BISULFATE 75 MG TABLET (FP) PO SCH (10:39)
[2020-05-17] MEDS: ATORVASTATIN CA 40 MG TABLET (FP) PO SCH (21:50)
[2020-05-18] MEDS: SIMETHICONE 80 MG TAB.CHEW (FP) PO SCH (01:36)
[2020-05-18] MEDS: ALBUTEROL SO4 2.5/IPRATROPIUM 0.5 INH SOL 3 ML VIAL.NEB. NEB PRN (05:13)
[2020-05-18] MEDS: hydrALAZINE HCL 50 MG TABLET (FP) PO SCH ×3 (06:53→22:12)
[2020-05-18] MEDS: INSULIN (LEVEMIR) 100 UNITS/ML UNITS SQ SCH ×2 (06:53→22:13)
[2020-05-18] MEDS: INSULIN SLIDING SCALE (NOVOLOG) 1 VIAL SQ SCH ×4 (06:53→22:13)
[2020-05-18 07:54] LABS: CALCIUM 9.5 mg/dL (8.5-10.1)
[2020-05-18 07:55] LABS: BLOOD UREA NITROGEN 27.5 mg/dL (7-18)
[2020-05-18 07:56] LABS: HEMATOCRIT 32.8 % (35.4-49); HEMOGLOBIN 10.7 GM/dL (11.7-16.9); MCH 31.5 pg (25.7-33.7); MCHC 32.6 g/dl (32.0-35.9); MEAN CELL VOLUME 96.4 fl (80-96); MEAN PLT VOLUME 7.5 fl (7.5-11.1); PLATELET COUNT 372 K/MM3 (134-434); RDW 15.7 % (11.9-15.9); WHITE BLOOD COUNT 9.2 K/mm3 (4.0-10.0)
[2020-05-18 07:58] LABS: CREATININE 1.7 mg/dL (0.55-1.3)
[2020-05-18] MEDS: ASPIRIN COATED 81 MG TABLET.EC PO SCH (09:45)
[2020-05-18] MEDS: CARVEDILOL 25 MG TABLET (FP) PO SCH ×2 (09:45→22:12)
[2020-05-18] MEDS: CLOPIDOGREL BISULFATE 75 MG TABLET (FP) PO SCH (09:45)
[2020-05-18] MEDS: TAMSULOSIN HCL 0.4 MG CAP PO SCH (09:45)
[2020-05-18] MEDS: FUROSEMIDE 40 MG/4 ML INJECTABLE VIAL IVPUSH SCH (09:46)
[2020-05-18] MEDS: HEPARIN NA (PORCINE) 5,000 UNITS/ML 1ML VIAL SQ SCH ×2 (09:56→22:12)
[2020-05-18] MEDS: SPIRONOLACTONE 25 MG TABLET PO SCH ×2 (09:57→22:12)
[2020-05-18] MEDS: NIFEdipine E.R 60 MG TABLET PO SCH (09:58)
[2020-05-18] MEDS: MOMETASONE FUROATE 220 MCG/IH INHALER IH SCH ×2 (09:58→22:14)
[2020-05-18] MEDS: PANTOPRAZOLE 20 MG TABLET PO SCH ×2 (11:15→22:14)
[2020-05-18] MEDS: ATORVASTATIN CA 40 MG TABLET (FP) PO SCH (22:13)
[2020-05-19] MEDS ORDERED: amLODIPine BESYLATE 5 MG TABLET (FP) PO ONE ×2 (01:01→04:15)
[2020-05-19] MEDS: hydrALAZINE HCL 50 MG TABLET (FP) PO SCH ×3 (06:28→22:07)
[2020-05-19] MEDS: INSULIN SLIDING SCALE (NOVOLOG) 1 VIAL SQ SCH ×4 (06:34→22:07)
[2020-05-19] MEDS: INSULIN (LEVEMIR) 100 UNITS/ML UNITS SQ SCH ×2 (06:35→22:08)
[2020-05-19] MEDS: ASPIRIN COATED 81 MG TABLET.EC PO SCH (09:37)
[2020-05-19] MEDS: TAMSULOSIN HCL 0.4 MG CAP PO SCH (09:37)
[2020-05-19] MEDS: CARVEDILOL 25 MG TABLET (FP) PO SCH ×2 (09:37→22:07)
[2020-05-19] MEDS: MOMETASONE FUROATE 220 MCG/IH INHALER IH SCH ×2 (09:37→22:08)
[2020-05-19] MEDS: SPIRONOLACTONE 25 MG TABLET PO SCH ×2 (09:37→22:07)
[2020-05-19] MEDS: PANTOPRAZOLE 20 MG TABLET PO SCH ×2 (09:38→22:07)
[2020-05-19] MEDS: CLOPIDOGREL BISULFATE 75 MG TABLET (FP) PO SCH (09:38)
[2020-05-19] MEDS: NIFEdipine E.R 60 MG TABLET PO SCH (09:38)
[2020-05-19] MEDS: HEPARIN NA (PORCINE) 5,000 UNITS/ML 1ML VIAL SQ SCH ×2 (09:38→22:08)
[2020-05-19] MEDS: FUROSEMIDE 40 MG/4 ML INJECTABLE VIAL IVPUSH SCH (09:38)
[2020-05-19 09:42] LABS: HEMATOCRIT 34.6 % (35.4-49); HEMOGLOBIN 11.4 GM/dL (11.7-16.9); MCH 31.7 pg (25.7-33.7); MCHC 32.9 g/dl (32.0-35.9); MEAN CELL VOLUME 96.5 fl (80-96); MEAN PLT VOLUME 7.3 fl (7.5-11.1); PLATELET COUNT 400 K/MM3 (134-434); RBC 3.59 M/mm3 (4.00-5.60); RDW 15.5 % (11.9-15.9); WHITE BLOOD COUNT 10.4 K/mm3 (4.0-10.0)
[2020-05-19 11:31] LABS: BLOOD UREA NITROGEN 27.9 mg/dL (7-18)
[2020-05-19 11:34] LABS: CREATININE 1.6 mg/dL (0.55-1.3)
[2020-05-19 11:36] LABS: BILIRUBIN,TOTAL 0.6 mg/dL (0.2-1); TOT PROT 7.2 g/dl (6.4-8.2)
[2020-05-19 11:41] LABS: CALCIUM 9.5 mg/dL (8.5-10.1)
[2020-05-19] MEDS: ALBUTEROL SO4 2.5/IPRATROPIUM 0.5 INH SOL 3 ML VIAL.NEB. NEB PRN (20:47)
[2020-05-19] MEDS: ATORVASTATIN CA 40 MG TABLET (FP) PO SCH (22:07)
[2020-05-20] MEDS: hydrALAZINE HCL 50 MG TABLET (FP) PO SCH ×3 (08:22→21:22)
[2020-05-20] MEDS: INSULIN (LEVEMIR) 100 UNITS/ML UNITS SQ SCH ×2 (08:23→21:22)
[2020-05-20] MEDS: INSULIN SLIDING SCALE (NOVOLOG) 1 VIAL SQ SCH ×4 (08:23→21:23)
[2020-05-20] MEDS: CARVEDILOL 25 MG TABLET (FP) PO SCH ×2 (10:07→21:22)
[2020-05-20] MEDS: HEPARIN NA (PORCINE) 5,000 UNITS/ML 1ML VIAL SQ SCH ×2 (10:07→21:22)
[2020-05-20] MEDS: MOMETASONE FUROATE 220 MCG/IH INHALER IH SCH ×2 (10:07→21:21)
[2020-05-20] MEDS: SPIRONOLACTONE 25 MG TABLET PO SCH ×2 (10:07→21:22)
[2020-05-20] MEDS: ASPIRIN COATED 81 MG TABLET.EC PO SCH (10:07)
[2020-05-20] MEDS: TAMSULOSIN HCL 0.4 MG CAP PO SCH (10:07)
[2020-05-20] MEDS: NIFEdipine E.R 60 MG TABLET PO SCH (10:08)
[2020-05-20] MEDS: FUROSEMIDE 40 MG/4 ML INJECTABLE VIAL IVPUSH SCH (10:08)
[2020-05-20] MEDS: CLOPIDOGREL BISULFATE 75 MG TABLET (FP) PO SCH (10:08)
[2020-05-20] MEDS: PANTOPRAZOLE 20 MG TABLET PO SCH ×2 (10:08→21:22)
[2020-05-20] MEDS: ATORVASTATIN CA 40 MG TABLET (FP) PO SCH (21:22)
[2020-05-21] MEDS: hydrALAZINE HCL 50 MG TABLET (FP) PO SCH ×3 (06:37→21:05)
[2020-05-21] MEDS: INSULIN SLIDING SCALE (NOVOLOG) 1 VIAL SQ SCH ×4 (06:38→21:32)
[2020-05-21] MEDS: INSULIN (LEVEMIR) 100 UNITS/ML UNITS SQ SCH ×2 (06:39→21:06)
[2020-05-21] MEDS: TAMSULOSIN HCL 0.4 MG CAP PO SCH (08:06)
[2020-05-21 08:41] LABS: HEMATOCRIT 35.5 % (35.4-49); HEMOGLOBIN 11.7 GM/dL (11.7-16.9); MCH 31.6 pg (25.7-33.7); MCHC 32.8 g/dl (32.0-35.9); MEAN CELL VOLUME 96.3 fl (80-96); MEAN PLT VOLUME 7.4 fl (7.5-11.1); PLATELET COUNT 446 K/MM3 (134-434); RBC 3.68 M/mm3 (4.00-5.60); RDW 14.9 % (11.9-15.9)
[2020-05-21 09:08] LABS: CALCIUM 9.1 mg/dL (8.5-10.1)
[2020-05-21 09:09] LABS: BLOOD UREA NITROGEN 29.3 mg/dL (7-18)
[2020-05-21 09:12] LABS: CREATININE 1.7 mg/dL (0.55-1.3)
[2020-05-21] MEDS: CLOPIDOGREL BISULFATE 75 MG TABLET (FP) PO SCH (10:24)
[2020-05-21] MEDS: SPIRONOLACTONE 25 MG TABLET PO SCH ×2 (10:24→21:04)
[2020-05-21] MEDS: CARVEDILOL 25 MG TABLET (FP) PO SCH ×2 (10:24→21:03)
[2020-05-21] MEDS: ASPIRIN COATED 81 MG TABLET.EC PO SCH (10:24)
[2020-05-21] MEDS: NIFEdipine E.R 60 MG TABLET PO SCH (10:25)
[2020-05-21] MEDS: PANTOPRAZOLE 20 MG TABLET PO SCH ×2 (10:25→21:04)
[2020-05-21] MEDS: HEPARIN NA (PORCINE) 5,000 UNITS/ML 1ML VIAL SQ SCH ×2 (10:29→21:05)
[2020-05-21] MEDS: FUROSEMIDE 40 MG/4 ML INJECTABLE VIAL IVPUSH SCH (11:00)
[2020-05-21] MEDS: MOMETASONE FUROATE 220 MCG/IH INHALER IH SCH ×2 (11:00→21:05)
[2020-05-21] MEDS ORDERED: ACETAMINOPHEN 325 MG TABLET (FP) PO ONE (20:33)
[2020-05-21] MEDS: ATORVASTATIN CA 40 MG TABLET (FP) PO SCH (21:04)
[2020-05-22] MEDS: INSULIN (LEVEMIR) 100 UNITS/ML UNITS SQ SCH (07:00)
[2020-05-22] MEDS: INSULIN SLIDING SCALE (NOVOLOG) 1 VIAL SQ SCH ×2 (07:00→12:11)
[2020-05-22] MEDS: hydrALAZINE HCL 50 MG TABLET (FP) PO SCH ×2 (07:01→14:38)
[2020-05-22 08:23] LABS: RBC 3.99 M/mm3 (4.00-5.60); RDW 14.5 % (11.9-15.9); WHITE BLOOD COUNT 8.3 K/mm3 (4.0-10.0)
[2020-05-22 08:26] LABS: HEMOGLOBIN 12.5 GM/dL (11.7-16.9); MCH 31.4 pg (25.7-33.7); MCHC 32.9 g/dl (32.0-35.9); MEAN CELL VOLUME 95.3 fl (80-96); MEAN PLT VOLUME 7.2 fl (7.5-11.1); PLATELET COUNT 437 K/MM3 (134-434)
[2020-05-22 08:35] LABS: ALBUMIN 3.1 g/dl (3.4-5.0); BLOOD UREA NITROGEN 27.7 mg/dL (7-18); CALCIUM 9.9 mg/dL (8.5-10.1)
[2020-05-22 08:38] LABS: CREATININE 1.6 mg/dL (0.55-1.3)
[2020-05-22 08:40] LABS: BILIRUBIN,TOTAL 0.6 mg/dL (0.2-1); TOT PROT 7.6 g/dl (6.4-8.2)
[2020-05-22] MEDS ORDERED: INSULIN (LEVEMIR) 100 UNITS/ML UNITS SQ SCH (08:48)
[2020-05-22] MEDS ORDERED: INSULIN (LEVEMIR) 100 UNITS/ML UNITS SQ ONE (09:15)
[2020-05-22] MEDS: NIFEdipine E.R 60 MG TABLET PO SCH (09:45)
[2020-05-22] MEDS: PANTOPRAZOLE 20 MG TABLET PO SCH (09:45)
[2020-05-22] MEDS: CLOPIDOGREL BISULFATE 75 MG TABLET (FP) PO SCH (09:45)
[2020-05-22] MEDS: CARVEDILOL 25 MG TABLET (FP) PO SCH (09:45)
[2020-05-22] MEDS: ASPIRIN COATED 81 MG TABLET.EC PO SCH (09:45)
[2020-05-22] MEDS: SPIRONOLACTONE 25 MG TABLET PO SCH (09:45)
[2020-05-22] MEDS: TAMSULOSIN HCL 0.4 MG CAP PO SCH (09:46)
[2020-05-22] MEDS: MOMETASONE FUROATE 220 MCG/IH INHALER IH SCH (09:47)
[2020-05-22] MEDS: HEPARIN NA (PORCINE) 5,000 UNITS/ML 1ML VIAL SQ SCH (09:47)
[2020-05-22] MEDS ORDERED: FUROSEMIDE 40 MG TABLET (FP) PO SCH (10:00)
[2020-05-22] MEDS ORDERED: COLCHICINE 0.6 MG CAP PO SCH (10:00)
[2020-05-22 10:45] LABS: URIC ACID 7.6 mg/dL (2.6-7.2)
[2020-05-22] MEDS ORDERED: COLCHICINE 0.6 MG CAP PO ONE (13:53)
[2020-05-22 15:12] VITALS: BP 123/72; PULSE 80; TEMP 98.3
[2020-05-22] MEDS ORDERED: ISOSORBIDE MONONITRATE 60 MG TAB.SR.24H (FP) PO SCH (22:00)
== END 2020-05-22 15:45 | disposition home or self-care (01) | DRG 194 ==
LOC: JER 18:56 → JERBED 05-16 02:02 → J6WEST-2 05-16 11:15
PROVIDERS: ADMIT Internal Medicine; ATTEND Internal Medicine
DX: I13.0 Hypertensive heart and chronic kidney disease with heart failure and stage 1 through stage 4 chronic kidney disease, or unspecified chronic kidney disease (principal); J44.9 Chronic obstructive pulmonary disease, unspecified; I25.2 Old myocardial infarction; F10.20 Alcohol dependence, uncomplicated; I71.4 Abdominal aortic aneurysm, without rupture; F17.210 Nicotine dependence, cigarettes, uncomplicated; I25.111 Atherosclerotic heart disease of native coronary artery with angina pectoris with documented spasm; I16.0 Hypertensive urgency; I50.33 Acute on chronic diastolic (congestive) heart failure; I65.22 Occlusion and stenosis of left carotid artery; F14.288 Cocaine dependence with other cocaine-induced disorder; N18.30 Chronic kidney disease, stage 3 unspecified; N17.9 Acute kidney failure, unspecified; R07.89 Other chest pain; Z95.5 Presence of coronary angioplasty implant and graft; E11.65 Type 2 diabetes mellitus with hyperglycemia; N40.0 Benign prostatic hyperplasia without lower urinary tract symptoms; E66.9 Obesity, unspecified; Z68.34 Body mass index [BMI] 34.0-34.9, adult; I16.1 Hypertensive emergency; E78.5 Hyperlipidemia, unspecified; K21.9 Gastro-esophageal reflux disease without esophagitis; D63.1 Anemia in chronic kidney disease
CPT/HCPCS: 36415; 70450-TC; 71045-TC-FY; 71250-TC; 73610-TC-LT-FY; 74176-TC; 76705-TC; 80048; 80053; 80307; 82272; 82550; 82962; 83690; 83735; 83880; 84100; 84484; 84550; 85025; 85027; 85610; 85730; 93005; 93010; 93971-TC; 94640; 99285-25; 99291; C9803; J1644; U0003

== ENCOUNTER 2020-08-07 14:12 | Observation (INO) | payer OTHER ==
[2020-08-07] MEDS ORDERED: ALBUTEROL SO4 2.5/IPRATROPIUM 0.5 INH SOL 3 ML VIAL.NEB. NEB ONE ×3 (15:27→16:04)
[2020-08-07] MEDS ORDERED: methylPREDNISolone NA SUCC 125 MG/2 ML VIAL ONE (15:32)
[2020-08-07] MEDS ORDERED: MAGNESIUM SULF 50% (8.12 MEQ/2 ML-1 GM VIAL) IVPB ONE (15:44)
[2020-08-07] MEDS ORDERED: hydrALAZINE HCL 50 MG TABLET (FP) PO ONE (15:46)
[2020-08-07] MEDS ORDERED: hydrALAZINE HCL 25 MG TABLET (FP) ONE ×2 (16:00→20:47)
[2020-08-07] MEDS ORDERED: FUROSEMIDE 40 MG/4 ML INJECTABLE VIAL IVPUSH ONE (16:00)
[2020-08-07] MEDS ORDERED: MAGNESIUM SULFATE IN WATER 2 GM/50 ML IVPB IVPB ONE (16:01)
[2020-08-07] MEDS ORDERED: methylPREDNISolone NA SUCC 125 MG/2 ML VIAL IVPUSH ONE (16:04)
[2020-08-07 16:21] LABS: HEMATOCRIT 33.7 % (35.4-49); MCH 30.6 pg (25.7-33.7); MCHC 32.8 g/dl (32.0-35.9); MEAN CELL VOLUME 93.3 fl (80-96); PLATELET COUNT 353 10^3/uL (134-434); RBC 3.61 M/mm3 (4.00-5.60); RDW 14.7 % (11.9-15.9); WHITE BLOOD COUNT 12.3 K/mm3 (4.0-10.0)
[2020-08-07 16:32] LABS: INR 1.02 (0.83-1.09); PROTHROMBIN TIME (PATIENT) 12.5 SEC (9.7-13.0)
[2020-08-07 16:42] LABS: CALCIUM 8.8 mg/dL (8.5-10.1)
[2020-08-07 16:43] LABS: ALBUMIN 3.4 g/dl (3.4-5.0); BLOOD UREA NITROGEN 16.6 mg/dL (7-18); MAGNESIUM 2.1 mg/dL (1.8-2.4)
[2020-08-07 16:46] LABS: CREATININE 1.5 mg/dL (0.55-1.3)
[2020-08-07 16:47] LABS: BILIRUBIN,TOTAL 0.5 mg/dL (0.2-1)
[2020-08-07 16:48] LABS: TOT PROT 7.6 g/dl (6.4-8.2)
[2020-08-07 16:51] LABS: N-TERMINAL BNP 4502.1 pg/ml (5-125)
[2020-08-07] MEDS ORDERED: FUROSEMIDE 40 MG/4 ML INJECTABLE VIAL ONE (17:06)
[2020-08-07] MEDS ORDERED: NIFEdipine E.R. 30 MG TABLET PO ONE (19:53)
[2020-08-07] MEDS ORDERED: NIFEdipine E.R. 30 MG TABLET ONE (20:08)
[2020-08-07] MEDS ORDERED: ALBUTEROL SO4 HFA INHALER IH PRN (20:30)
[2020-08-07] MEDS ORDERED: TAMSULOSIN HCL 0.4 MG CAP ONE (20:48)
[2020-08-07] MEDS ORDERED: ATORVASTATIN CA 40 MG TABLET (FP) ONE (20:48)
[2020-08-07] MEDS ORDERED: SPIRONOLACTONE 25 MG TABLET ONE (20:48)
[2020-08-07] MEDS ORDERED: CLOPIDOGREL BISULFATE 75 MG TABLET (FP) ONE (20:48)
[2020-08-07] MEDS ORDERED: ISOSORBIDE MONONITRATE 60 MG TAB.SR.24H (FP) PO ONE (20:48)
[2020-08-07] MEDS: TAMSULOSIN HCL 0.4 MG CAP PO SCH (21:00)
[2020-08-07] MEDS: SPIRONOLACTONE 25 MG TABLET PO SCH (21:00)
[2020-08-07] MEDS: CLOPIDOGREL BISULFATE 75 MG TABLET (FP) PO SCH (21:00)
[2020-08-07] MEDS: ATORVASTATIN CA 40 MG TABLET (FP) PO SCH (21:00)
[2020-08-07] MEDS: hydrALAZINE HCL 50 MG TABLET (FP) PO SCH (21:00)
[2020-08-07] MEDS: INSULIN SLIDING SCALE (NOVOLOG) 1 VIAL SQ SCH (21:00)
[2020-08-07] MEDS: ISOSORBIDE MONONITRATE 60 MG TAB.SR.24H (FP) PO SCH (21:00)
[2020-08-07] MEDS: BUDESONIDE/FORMETEROL FUMARATE 80/4.5 mcg INHALER IH SCH (21:39)
[2020-08-07 21:58] LABS: EPI CELLS 4 /uL (0-25.1); HYALINE CASTS 4 /uL (0-3.1); URINE APPEARANCE CLEAR; URINE BACTERIA 3 /uL (0-1359); URINE BILIRUBIN NEGATIVE (NEGATIVE); URINE COLOR YELLOW; URINE GLUCOSE (UA) 3+ (NEGATIVE); URINE KETONE NEGATIVE (NEGATIVE); URINE LEUK ESTERASE NEGATIVE (NEGATIVE); URINE NITRITE NEGATIVE (NEGATIVE); URINE PROTEIN 2+ (NEGATIVE); URINE RBC 3 /uL (0-23.9); URINE UROBILINOGEN 0.2 mg/dL (0.2-1.0); URINE WBC 2 /uL (0-25.8)
[2020-08-07 22:23] LABS: METHADONE, UR NEGATIVE (NEGATIVE); URINE BARBITURATES NEGATIVE (NEGATIVE); URINE BENZODIAZEPINES NEGATIVE (NEGATIVE)
[2020-08-07 22:24] LABS: OPIATES, URI NEGATIVE (NEGATIVE); PHENCYCLIDINE,URINE NEGATIVE (NEGATIVE)
[2020-08-07 22:39] LABS: COCAINE, UR POSITIVE (NEGATIVE); URINE AMPHETAMINES NEGATIVE (NEGATIVE)
[2020-08-08] MEDS ORDERED: CARVEDILOL 25 MG TABLET (FP) PO ONE (02:45)
[2020-08-08] MEDS ORDERED: MELATONIN 5 MG TABLETS PO ONE (02:45)
[2020-08-08] MEDS ORDERED: INSULIN (NOVOLOG) ASPART 100 UNITS/ML 10ML VIAL SQ ONE (02:45)
[2020-08-08 03:15] VITALS: BMI 33.0
[2020-08-08] MEDS ORDERED: ALBUTEROL SO4 2.5/IPRATROPIUM 0.5 INH SOL 3 ML VIAL.NEB. NEB PRN (06:00)
[2020-08-08] MEDS: INSULIN SLIDING SCALE (NOVOLOG) 1 VIAL SQ SCH ×4 (06:45→21:26)
[2020-08-08] MEDS: hydrALAZINE HCL 50 MG TABLET (FP) PO SCH ×3 (06:45→21:24)
[2020-08-08] MEDS: HEPARIN NA (PORCINE) 5,000 UNITS/ML 1ML VIAL SQ SCH ×3 (06:45→21:25)
[2020-08-08 07:29] LABS: HEMATOCRIT 31.8 % (35.4-49); HEMOGLOBIN 10.3 GM/dL (11.7-16.9); MCH 30.9 pg (25.7-33.7); MCHC 32.5 g/dl (32.0-35.9); MEAN CELL VOLUME 95.1 fl (80-96); MEAN PLT VOLUME 7.4 fl (7.5-11.1); PLATELET COUNT 303 10^3/uL (134-434); RBC 3.34 M/mm3 (4.00-5.60); RDW 14.5 % (11.9-15.9); WHITE BLOOD COUNT 9.7 K/mm3 (4.0-10.0)
[2020-08-08 07:50] LABS: CHLORIDE 106 mmol/L (98-107); SODIUM 135 mmol/L (136-145)
[2020-08-08 07:53] LABS: CALCIUM 8.2 mg/dL (8.5-10.1)
[2020-08-08 07:54] LABS: ALBUMIN 2.9 g/dl (3.4-5.0); ANION GAP 9 MMOL/L (8-16); BLOOD UREA NITROGEN 26.1 mg/dL (7-18); CO2 21 mmol/L (21-32); GLUCOSE,RANDOM 314 mg/dL (74-106); MAGNESIUM 2.8 mg/dL (1.8-2.4)
[2020-08-08 07:57] LABS: CREATININE 1.8 mg/dL (0.55-1.3); PHOSPHOROUS 3.2 mg/dL (2.5-4.9); SGOT/AST 15 U/L (15-37); SGPT/ALT 24 U/L (13-61)
[2020-08-08 07:59] LABS: BILIRUBIN,TOTAL 0.5 mg/dL (0.2-1); TOT PROT 6.5 g/dl (6.4-8.2)
[2020-08-08 08:00] LABS: ALK PHOS 128 U/L (45-117)
[2020-08-08] MEDS ORDERED: PT OWN MED DRAWER 7, Y5N ONE (09:26)
[2020-08-08] MEDS: NIFEdipine E.R 60 MG TABLET PO SCH (09:31)
[2020-08-08] MEDS: SPIRONOLACTONE 25 MG TABLET PO SCH ×2 (09:31→21:25)
[2020-08-08] MEDS: TAMSULOSIN HCL 0.4 MG CAP PO SCH (09:31)
[2020-08-08] MEDS: CLOPIDOGREL BISULFATE 75 MG TABLET (FP) PO SCH (09:31)
[2020-08-08] MEDS: FUROSEMIDE 40 MG/4 ML INJECTABLE VIAL IVPUSH SCH (09:31)
[2020-08-08] MEDS: ASPIRIN COATED 81 MG TABLET.EC PO SCH (09:31)
[2020-08-08] MEDS: BUDESONIDE/FORMETEROL FUMARATE 80/4.5 mcg INHALER IH SCH ×2 (09:41→21:38)
[2020-08-08] MEDS ORDERED: CARVEDILOL 25 MG TABLET (FP) PO SCH (10:00)
[2020-08-08] MEDS: ALBUTEROL SO4 2.5/IPRATROPIUM 0.5 INH SOL 3 ML VIAL.NEB. NEB SCH ×3 (15:13→20:13)
[2020-08-08] MEDS: ATORVASTATIN CA 40 MG TABLET (FP) PO SCH (21:25)
[2020-08-08] MEDS: ISOSORBIDE MONONITRATE 60 MG TAB.SR.24H (FP) PO SCH (21:25)
[2020-08-08] MEDS ORDERED: LABETALOL HCL 200 MG TABLET (FP) PO SCH (22:00)
[2020-08-09] MEDS: INSULIN SLIDING SCALE (NOVOLOG) 1 VIAL SQ SCH ×2 (06:08→11:56)
[2020-08-09] MEDS: hydrALAZINE HCL 50 MG TABLET (FP) PO SCH ×2 (06:08→14:07)
[2020-08-09] MEDS: HEPARIN NA (PORCINE) 5,000 UNITS/ML 1ML VIAL SQ SCH ×2 (06:08→14:07)
[2020-08-09 06:41] LABS: BASO % 0.3 % (0-2.0); EOS % 1.3 % (0-4.5); HEMATOCRIT 33.1 % (35.4-49); HEMOGLOBIN 10.6 GM/dL (11.7-16.9); LYMPH % 14.6 % (8-40); MCH 30.8 pg (25.7-33.7); MCHC 31.9 g/dl (32.0-35.9); MEAN CELL VOLUME 96.4 fl (80-96); MEAN PLT VOLUME 7.5 fl (7.5-11.1); MONO % 6.3 % (3.8-10.2); NEUT % 77.5 % (42.8-82.8); PLATELET COUNT 364 10^3/uL (134-434); RBC 3.43 M/mm3 (4.00-5.60)
[2020-08-09 06:59] LABS: CALCIUM 8.4 mg/dL (8.5-10.1)
[2020-08-09 07:02] LABS: BLOOD UREA NITROGEN 24.4 mg/dL (7-18)
[2020-08-09 07:04] LABS: CREATININE 1.6 mg/dL (0.55-1.3)
[2020-08-09] MEDS: ALBUTEROL SO4 2.5/IPRATROPIUM 0.5 INH SOL 3 ML VIAL.NEB. NEB SCH ×3 (07:35→16:15)
[2020-08-09] MEDS: TAMSULOSIN HCL 0.4 MG CAP PO SCH (08:30)
[2020-08-09] MEDS: NIFEdipine E.R 60 MG TABLET PO SCH (09:13)
[2020-08-09] MEDS: SPIRONOLACTONE 25 MG TABLET PO SCH (09:13)
[2020-08-09] MEDS: ASPIRIN COATED 81 MG TABLET.EC PO SCH (09:13)
[2020-08-09] MEDS: CLOPIDOGREL BISULFATE 75 MG TABLET (FP) PO SCH (09:13)
[2020-08-09] MEDS: FUROSEMIDE 40 MG/4 ML INJECTABLE VIAL IVPUSH SCH (09:13)
[2020-08-09] MEDS: BUDESONIDE/FORMETEROL FUMARATE 80/4.5 mcg INHALER IH SCH (11:55)
[2020-08-09 15:04] VITALS: BP 128/76; PULSE 93; TEMP 98.1
== END 2020-08-09 17:36 | disposition home or self-care (01) ==
LOC: JER 14:12 → JERBED 18:17 → J4S 08-08 01:27
PROVIDERS: ATTEND Internal Medicine
PROC: 3E0F7SF Introduction of Other Gas into Respiratory Tract, Via Natural or Artificial Opening (ICD-10-PCS; principal; 2020-08-07)
PROC: 3E0F7SF Introduction of Other Gas into Respiratory Tract, Via Natural or Artificial Opening (ICD-10-PCS; 2020-08-07)
PROC: 3E0F7SF Introduction of Other Gas into Respiratory Tract, Via Natural or Artificial Opening (ICD-10-PCS; 2020-08-07)
PROC: 3E013VG Introduction of Insulin into Subcutaneous Tissue, Percutaneous Approach (ICD-10-PCS; 2020-08-07)
PROC: 3E013GC Introduction of Other Therapeutic Substance into Subcutaneous Tissue, Percutaneous Approach (ICD-10-PCS; 2020-08-07)
PROC: 3E033GC Introduction of Other Therapeutic Substance into Peripheral Vein, Percutaneous Approach (ICD-10-PCS; 2020-08-07)
DX: I25.10 Atherosclerotic heart disease of native coronary artery without angina pectoris (principal); I13.0 Hypertensive heart and chronic kidney disease with heart failure and stage 1 through stage 4 chronic kidney disease, or unspecified chronic kidney disease; N18.30 Chronic kidney disease, stage 3 unspecified; I50.33 Acute on chronic diastolic (congestive) heart failure; Z95.5 Presence of coronary angioplasty implant and graft; I25.2 Old myocardial infarction; E11.9 Type 2 diabetes mellitus without complications; Z79.84 Long term (current) use of oral hypoglycemic drugs; J44.9 Chronic obstructive pulmonary disease, unspecified; Z86.73 Personal history of transient ischemic attack (TIA), and cerebral infarction without residual deficits; F14.10 Cocaine abuse, uncomplicated; F10.10 Alcohol abuse, uncomplicated; Z88.8 Allergy status to other drugs, medicaments and biological substances
CPT/HCPCS: 94640; 96372; 96374; S8100; 36415; 71045-TC-FY; 71250-TC; 80048; 80053; 80307; 81003; 82550; 82962; 83036; 83735; 83880; 84100; 84484; 85025; 85027; 85610; 93005; 93010; 93306-TC; 93970-TC; 99285-25; C9803; G0378; J1644; U0003; U0005

== ENCOUNTER 2020-10-04 14:52 | Emergency (ER) | payer OTHER ==
[2020-10-04 15:09] VITALS: BMI 34.2
[2020-10-04] MEDS ORDERED: LABETALOL HCL 200 MG TABLET (FP) PO ONE (16:20)
[2020-10-04] MEDS ORDERED: hydrALAZINE HCL 50 MG TABLET (FP) PO ONE (16:23)
[2020-10-04] MEDS ORDERED: NIFEdipine E.R 60 MG TABLET PO SCH (16:30)
[2020-10-04] MEDS ORDERED: LABETALOL HCL 100 MG TABLET (FP) ONE ×2 (16:35→17:36)
[2020-10-04 16:38] LABS: BASO % 0.8 % (0-2.0); EOS % 1.2 % (0-4.5); HEMATOCRIT 36.1 % (35.4-49); HEMOGLOBIN 12.1 GM/dL (11.7-16.9); LYMPH % 12.1 % (8-40); MCH 31.8 pg (25.7-33.7); MCHC 33.6 g/dl (32.0-35.9); MEAN CELL VOLUME 94.5 fl (80-96); MEAN PLT VOLUME 6.8 fl (7.5-11.1); MONO % 9.2 % (3.8-10.2); NEUT % 76.7 % (42.8-82.8); PLATELET COUNT 395 10^3/uL (134-434); RBC 3.82 M/mm3 (4.00-5.60); RDW 14.4 % (11.9-15.9); WHITE BLOOD COUNT 8.6 K/mm3 (4.0-10.0)
[2020-10-04 16:47] LABS: CHLORIDE 106 mmol/L (98-107); SODIUM 139 mmol/L (136-145)
[2020-10-04 16:50] LABS: ALBUMIN 3.6 g/dl (3.4-5.0); ANION GAP 14 MMOL/L (8-16); BLOOD UREA NITROGEN 19.7 mg/dL (7-18); CO2 19 mmol/L (21-32); GLUCOSE,RANDOM 98 mg/dL (74-106)
[2020-10-04 16:53] LABS: CREATININE 1.7 mg/dL (0.55-1.3); SGOT/AST 20 U/L (15-37); SGPT/ALT 24 U/L (13-61)
[2020-10-04 16:54] LABS: BILIRUBIN,TOTAL 0.5 mg/dL (0.2-1); TOT PROT 7.8 g/dl (6.4-8.2)
[2020-10-04 16:56] LABS: ALK PHOS 125 U/L (45-117)
[2020-10-04] MEDS ORDERED: DEXAMETHASONE SOD PHOSPHATE 4 MG/1 ML VIAL IVPUSH ONE (17:09)
[2020-10-04] MEDS ORDERED: hydrALAZINE HCL 25 MG TABLET (FP) ONE (17:36)
[2020-10-04] MEDS ORDERED: NIFEdipine E.R. 30 MG TABLET ONE (17:36)
[2020-10-04] MEDS ORDERED: METOCLOPRAMIDE HCL INJECTION 10 MG/2 ML VIAL IVPUSH ONE (18:19)
[2020-10-04] MEDS ORDERED: ACETAMINOPHEN 325 MG TABLET (FP) PO ONE (18:19)
[2020-10-04] MEDS ORDERED: METOCLOPRAMIDE HCL INJECTION 10 MG/2 ML VIAL ONE (18:59)
[2020-10-04] MEDS ORDERED: ACETAMINOPHEN 325 MG TABLET (FP) ONE (18:59)
[2020-10-04 19:52] VITALS: BP 165/90; PULSE 87; TEMP 98.3
== END 2020-10-04 21:25 | disposition home or self-care (01) ==
LOC: JER 14:52
DX: I16.0 Hypertensive urgency (principal); R51.9 Headache, unspecified; R07.9 Chest pain, unspecified
CPT/HCPCS: 36415; 70450-TC; 71045-TC-FY; 71250-TC; 72125-TC; 80053; 82550; 84484; 85025; 93005; 93010; 99285-25

== ENCOUNTER 2020-10-14 17:04 | Observation (INO) | payer OTHER ==
[2020-10-14 17:08] VITALS: BMI 34.2
[2020-10-14] MEDS ORDERED: METOCLOPRAMIDE HCL INJECTION 10 MG/2 ML VIAL IVPB ONE (18:13)
[2020-10-14] MEDS ORDERED: LABETALOL HCL 200 MG TABLET (FP) PO ONE (18:15)
[2020-10-14] MEDS ORDERED: hydrALAZINE HCL 50 MG TABLET (FP) PO ONE (18:16)
[2020-10-14] MEDS ORDERED: LABETALOL HCL 100 MG TABLET (FP) ONE (18:37)
[2020-10-14] MEDS ORDERED: hydrALAZINE HCL 25 MG TABLET (FP) ONE (18:37)
[2020-10-14] MEDS ORDERED: METOCLOPRAMIDE HCL INJECTION 10 MG/2 ML VIAL ONE (18:38)
[2020-10-14 19:36] LABS: BASO % 0.7 % (0-2.0); EOS % 0.8 % (0-4.5); HEMATOCRIT 34.6 % (35.4-49); HEMOGLOBIN 11.7 GM/dL (11.7-16.9); LYMPH % 7.4 % (8-40); MCH 31.7 pg (25.7-33.7); MCHC 33.8 g/dl (32.0-35.9); MEAN CELL VOLUME 93.9 fl (80-96); MEAN PLT VOLUME 7.6 fl (7.5-11.1); MONO % 11.4 % (3.8-10.2); NEUT % 79.7 % (42.8-82.8); PLATELET COUNT 404 10^3/uL (134-434); RBC 3.69 M/mm3 (4.00-5.60); RDW 14.1 % (11.9-15.9); WHITE BLOOD COUNT 12.4 K/mm3 (4.0-10.0)
[2020-10-14 19:58] LABS: CHLORIDE 103 mmol/L (98-107); SODIUM 132 mmol/L (136-145)
[2020-10-14 20:02] LABS: ALBUMIN 3.4 g/dl (3.4-5.0); CALCIUM 8.7 mg/dL (8.5-10.1); CO2 21 mmol/L (21-32); GLUCOSE,RANDOM 117 mg/dL (74-106)
[2020-10-14 20:05] LABS: CREATININE 1.6 mg/dL (0.55-1.3); SGOT/AST 79 U/L (15-37)
[2020-10-14 20:07] LABS: BILIRUBIN,TOTAL 0.6 mg/dL (0.2-1); TOT PROT 8.3 g/dl (6.4-8.2)
[2020-10-14 20:08] LABS: ALK PHOS 132 U/L (45-117)
[2020-10-14] MEDS ORDERED: morphine CARPU-JECT 4 MG/1 ML DISP.SYRIN IVPUSH ONE (20:41)
[2020-10-14] MEDS ORDERED: morphine SULFATE 4 MG/ML VIAL ONE (20:45)
[2020-10-14 20:47] LABS: ANION GAP 7 MMOL/L (8-16); SGPT/ALT 35 U/L (13-61)
[2020-10-14 22:22] LABS: INR 0.99 (0.83-1.09)
[2020-10-14 22:35] LABS: ALBUMIN 3.1 g/dl (3.4-5.0); BLOOD UREA NITROGEN 18.4 mg/dL (7-18); CALCIUM 8.5 mg/dL (8.5-10.1)
[2020-10-14 22:38] LABS: CREATININE 1.7 mg/dL (0.55-1.3)
[2020-10-14 22:40] LABS: BILIRUBIN,TOTAL 0.5 mg/dL (0.2-1); TOT PROT 7.3 g/dl (6.4-8.2)
[2020-10-14 23:23] LABS: EPI CELLS 3 /uL (0-25.1); HYALINE CASTS 2 /uL (0-3.1); URINE APPEARANCE CLEAR; URINE BACTERIA 3 /uL (0-1359); URINE BILIRUBIN NEGATIVE (NEGATIVE); URINE COLOR YELLOW; URINE GLUCOSE (UA) NEGATIVE (NEGATIVE); URINE KETONE NEGATIVE (NEGATIVE); URINE LEUK ESTERASE NEGATIVE (NEGATIVE); URINE NITRITE NEGATIVE (NEGATIVE); URINE PROTEIN 3+ (NEGATIVE); URINE RBC 6 /uL (0-23.9); URINE UROBILINOGEN 0.2 mg/dL (0.2-1.0); URINE WBC 11 /uL (0-25.8)
[2020-10-15] MEDS ORDERED: LEVALBUTEROL HCL 0.63 MG/3 ML VIAL.NEB. IH PRN (00:48)
[2020-10-15 01:09] LABS: METHADONE, UR NEGATIVE (NEGATIVE); URINE AMPHETAMINES NEGATIVE (NEGATIVE); URINE BARBITURATES NEGATIVE (NEGATIVE); URINE BENZODIAZEPINES NEGATIVE (NEGATIVE)
[2020-10-15 01:10] LABS: PHENCYCLIDINE,URINE NEGATIVE (NEGATIVE)
[2020-10-15 01:36] LABS: COCAINE, UR POSITIVE (NEGATIVE); OPIATES, URI POSITIVE (NEGATIVE)
[2020-10-15] MEDS ORDERED: traMADol HCL 50 MG TABLET PO PRN (02:04)
[2020-10-15] MEDS ORDERED: traMADol HCL 50 MG TABLET ONE (02:08)
[2020-10-15] MEDS ORDERED: ACETAMINOPHEN 1000 MG/100 ML VIAL (NON FORMULARY) IVPB PRN (03:21)
[2020-10-15] MEDS ORDERED: hydrALAZINE HCL 25 MG TABLET (FP) ONE ×2 (04:39→21:57)
[2020-10-15] MEDS ORDERED: LABETALOL HCL 100 MG TABLET (FP) ONE ×2 (04:39→21:57)
[2020-10-15] MEDS: LABETALOL HCL 200 MG TABLET (FP) PO SCH ×3 (06:57→22:11)
[2020-10-15] MEDS: HEPARIN NA (PORCINE) 5,000 UNITS/ML 1ML VIAL SQ SCH ×3 (06:57→22:11)
[2020-10-15] MEDS: hydrALAZINE HCL 50 MG TABLET (FP) PO SCH ×3 (06:57→22:11)
[2020-10-15 08:15] LABS: BASO % 0.3 % (0-2.0); EOS % 1.2 % (0-4.5); HEMATOCRIT 33.5 % (35.4-49); HEMOGLOBIN 11.3 GM/dL (11.7-16.9); LYMPH % 9.3 % (8-40); MCH 32.2 pg (25.7-33.7); MCHC 33.6 g/dl (32.0-35.9); MEAN CELL VOLUME 95.9 fl (80-96); MEAN PLT VOLUME 7.5 fl (7.5-11.1); MONO % 11.7 % (3.8-10.2); NEUT % 77.5 % (42.8-82.8); PLATELET COUNT 364 10^3/uL (134-434); RDW 13.9 % (11.9-15.9)
[2020-10-15 08:36] LABS: CHLORIDE 106 mmol/L (98-107); SODIUM 136 mmol/L (136-145)
[2020-10-15] MEDS: INSULIN SLIDING SCALE (NOVOLOG) 1 VIAL SQ SCH ×4 (08:40→22:11)
[2020-10-15 08:51] LABS: CALCIUM 8.5 mg/dL (8.5-10.1)
[2020-10-15 08:52] LABS: ANION GAP 10 MMOL/L (8-16); BLOOD UREA NITROGEN 14.9 mg/dL (7-18); CO2 21 mmol/L (21-32); GLUCOSE,RANDOM 141 mg/dL (74-106)
[2020-10-15 08:55] LABS: CREATININE 1.5 mg/dL (0.55-1.3); PHOSPHOROUS 3.2 mg/dL (2.5-4.9); SGOT/AST 16 U/L (15-37); SGPT/ALT 25 U/L (13-61)
[2020-10-15 08:56] LABS: BILIRUBIN,TOTAL 0.5 mg/dL (0.2-1)
[2020-10-15 08:57] LABS: ALK PHOS 122 U/L (45-117)
[2020-10-15] MEDS ORDERED: NIFEdipine E.R 60 MG TABLET PO SCH (10:00)
[2020-10-15] MEDS ORDERED: CLOPIDOGREL BISULFATE 75 MG TABLET (FP) PO SCH (10:00)
[2020-10-15] MEDS ORDERED: FUROSEMIDE 40 MG TABLET (FP) PO SCH (10:00)
[2020-10-15] MEDS ORDERED: CLOPIDOGREL BISULFATE 75 MG TABLET (FP) ONE (10:34)
[2020-10-15] MEDS ORDERED: FUROSEMIDE 40 MG TABLET (FP) ONE (10:34)
[2020-10-15] MEDS ORDERED: SPIRONOLACTONE 25 MG TABLET ONE ×2 (10:35→21:58)
[2020-10-15] MEDS: SPIRONOLACTONE 25 MG TABLET PO SCH ×2 (10:42→22:11)
[2020-10-15] MEDS ORDERED: LIDOCAINE 5% TOPICAL PATCH TP ONE (11:30)
[2020-10-15] MEDS ORDERED: LIDOCAINE 5% TOPICAL PATCH ONE ×2 (11:58→21:58)
[2020-10-15] MEDS ORDERED: ALBUTEROL SO4 HFA INHALER IH PRN (14:33)
[2020-10-15] MEDS ORDERED: HEPARIN NA (PORCINE) 5,000 UNITS/ML 1ML VIAL ONE ×2 (14:45→21:58)
[2020-10-15 14:56] VITALS: PULSE 90
[2020-10-15 17:04] VITALS: BP 137/85; TEMP 97.9
[2020-10-15] MEDS ORDERED: ISOSORBIDE MONONITRATE 60 MG TAB.SR.24H (FP) PO ONE (21:57)
[2020-10-15] MEDS ORDERED: ATORVASTATIN CA 40 MG TABLET (FP) ONE (21:57)
[2020-10-15] MEDS ORDERED: ATORVASTATIN CA 40 MG TABLET (FP) PO SCH (22:00)
[2020-10-15] MEDS ORDERED: LIDOCAINE PATCH REMOVAL MC ONE (22:00)
[2020-10-15] MEDS ORDERED: ISOSORBIDE MONONITRATE 60 MG TAB.SR.24H (FP) PO SCH (22:00)
== END 2020-10-16 06:38 | disposition home or self-care (01) ==
LOC: JER 17:04 → INTOOBSV 23:29 → UNDOADMOB 23:29 → JERBED 23:29
PROVIDERS: ADMIT Internal Medicine
PROC: 3E023GC Introduction of Other Therapeutic Substance into Muscle, Percutaneous Approach (ICD-10-PCS; principal; 2020-10-15)
PROC: 3E033GC Introduction of Other Therapeutic Substance into Peripheral Vein, Percutaneous Approach (ICD-10-PCS; 2020-10-15)
PROC: 3E033NZ Introduction of Analgesics, Hypnotics, Sedatives into Peripheral Vein, Percutaneous Approach (ICD-10-PCS; 2020-10-15)
DX: I11.0 Hypertensive heart disease with heart failure (principal); F19.10 Other psychoactive substance abuse, uncomplicated; I10 Essential (primary) hypertension; E11.9 Type 2 diabetes mellitus without complications; I25.10 Atherosclerotic heart disease of native coronary artery without angina pectoris; I69.354 Hemiplegia and hemiparesis following cerebral infarction affecting left non-dominant side; E66.9 Obesity, unspecified; Z68.34 Body mass index [BMI] 34.0-34.9, adult; I71.4 Abdominal aortic aneurysm, without rupture; I25.2 Old myocardial infarction; Z88.8 Allergy status to other drugs, medicaments and biological substances
CPT/HCPCS: 36415; 70450-TC; 73070-TC-LT-FY; 80053; 80307; 81003; 82550; 82553; 82962; 83735; 84100; 84484; 85025; 85610; 93005; 93010; 93971; 96372; 96374; 96375; 99285-25; C9803; G0378; J1644; U0003; U0005

== ENCOUNTER 2020-11-04 11:59 | Inpatient (IN) | payer OTHER ==
[2020-11-04] MEDS ORDERED: VANCOMYCIN 1 GM in D5W (PRE-DOCKED) 1,000 MG/250 ML IVPB ONE (15:14)
[2020-11-04] MEDS ORDERED: VANCOMYCIN 1 GRAM (PRE-DOCKED) 1,000 MG/250 ML BAG IVPB ONE (15:39)
[2020-11-04] MEDS ORDERED: HEPARIN NA (PORCINE) 5,000 UNITS/ML 1ML VIAL IVPUSH PRN (16:15)
[2020-11-04 16:16] LABS: BASO % 0.4 % (0-2.0); HEMATOCRIT 32.2 % (35.4-49); HEMOGLOBIN 10.6 GM/dL (11.7-16.9); LYMPH % 8.6 % (8-40); MCH 31.4 pg (25.7-33.7); MEAN PLT VOLUME 7.3 fl (7.5-11.1); MONO % 11.1 % (3.8-10.2); NEUT % 78.9 % (42.8-82.8); PLATELET COUNT 370 10^3/uL (134-434); RBC 3.39 M/mm3 (4.00-5.60); RDW 14.5 % (11.9-15.9); WHITE BLOOD COUNT 11.4 K/mm3 (4.0-10.0)
[2020-11-04 16:26] LABS: INR 1.07 (0.83-1.09); PROTHROMBIN TIME (PATIENT) 13.1 SEC (9.7-13.0)
[2020-11-04 16:29] LABS: ACTIVATED PTT 30.5 SECONDS (25.2-36.5)
[2020-11-04 16:37] LABS: BLOOD UREA NITROGEN 14.6 mg/dL (7-18)
[2020-11-04 16:40] LABS: CREATININE 1.6 mg/dL (0.55-1.3)
[2020-11-04 16:42] LABS: BILIRUBIN,TOTAL 0.4 mg/dL (0.2-1); TOT PROT 7.6 g/dl (6.4-8.2)
[2020-11-04] MEDS ORDERED: SODIUM CHLORIDE 0.9% 500 ML INFUS.BAG IV ONE (17:58)
[2020-11-04] MEDS ORDERED: HEPARIN NA (PORCINE) 5,000 UNITS/ML 1ML VIAL ONE (19:08)
[2020-11-04] MEDS: HEPARIN - 25,000 UNIT in SODIUM CHLORIDE 495 ML IV SCH (19:17)
[2020-11-04] MEDS: HEPARIN NA (PORCINE) 5,000 UNITS/ML 1ML VIAL IVPUSH PRN (19:17)
[2020-11-04] MEDS ORDERED: LORazepam 1 MG TABLET PO PRN (21:05)
[2020-11-04 22:25] LABS: EPI CELLS 33 /uL (0-25.1); HYALINE CASTS 35 /uL (0-3.1); PH,URINE 5.5 (5.0-8.0); URINE APPEARANCE CLEAR; URINE BACTERIA 99 /uL (0-1359); URINE BILIRUBIN NEGATIVE (NEGATIVE); URINE COLOR YELLOW; URINE GLUCOSE (UA) TRACE (NEGATIVE); URINE KETONE TRACE (NEGATIVE); URINE LEUK ESTERASE TRACE (NEGATIVE); URINE NITRITE NEGATIVE (NEGATIVE); URINE PROTEIN 4+ (NEGATIVE); URINE RBC 35 /uL (0-23.9); URINE UROBILINOGEN 0.2 mg/dL (0.2-1.0); URINE WBC 11 /uL (0-25.8)
[2020-11-04] MEDS ORDERED: FOLIC ACID 1 MG TABLET (FP) ONE (22:26)
[2020-11-04] MEDS ORDERED: THIAMINE HCL 200 MG/2 ML VIAL ONE (22:26)
[2020-11-04] MEDS: THIAMINE HCL 200 MG/2 ML VIAL IVPB SCH (22:42)
[2020-11-04] MEDS: LABETALOL HCL 200 MG TABLET (FP) PO SCH (22:42)
[2020-11-04] MEDS: hydrALAZINE HCL 50 MG TABLET (FP) PO SCH (22:42)
[2020-11-04] MEDS: FOLIC ACID 1 MG TABLET (FP) PO SCH (22:42)
[2020-11-04] MEDS: INSULIN SLIDING SCALE (NOVOLOG) 1 VIAL SQ SCH (22:43)
[2020-11-05] MEDS ORDERED: ACETAMINOPHEN 1000 MG/100 ML VIAL (NON FORMULARY) IVPB ONE (02:07)
[2020-11-05] MEDS: ALBUTEROL SO4 HFA INHALER IH SCH ×4 (02:15→13:35)
[2020-11-05 02:28] LABS: INR 1.03 (0.83-1.09); PROTHROMBIN TIME (PATIENT) 12.7 SEC (9.7-13.0)
[2020-11-05 02:56] LABS: ACTIVATED PTT 31.6 SECONDS (25.2-36.5)
[2020-11-05] MEDS ORDERED: ACETAMINOPHEN 325 MG TABLET (FP) PO ONE (03:29)
[2020-11-05] MEDS: HEPARIN NA (PORCINE) 5,000 UNITS/ML 1ML VIAL IVPUSH PRN ×2 (03:57→13:30)
[2020-11-05] MEDS ORDERED: ALBUTEROL SO4 2.5/IPRATROPIUM 0.5 INH SOL 3 ML VIAL.NEB. NEB ONE (04:04)
[2020-11-05] MEDS: LABETALOL HCL 200 MG TABLET (FP) PO SCH ×3 (05:30→21:50)
[2020-11-05] MEDS: hydrALAZINE HCL 50 MG TABLET (FP) PO SCH ×3 (05:30→21:51)
[2020-11-05] MEDS: INSULIN SLIDING SCALE (NOVOLOG) 1 VIAL SQ SCH ×4 (06:57→22:49)
[2020-11-05] MEDS ORDERED: ALBUTEROL SO4 2.5/IPRATROPIUM 0.5 INH SOL 3 ML VIAL.NEB. NEB SCH ×2 (08:30→17:00)
[2020-11-05] MEDS: FOLIC ACID 1 MG TABLET (FP) PO SCH (09:26)
[2020-11-05] MEDS: NIFEdipine E.R 60 MG TABLET PO SCH (09:27)
[2020-11-05] MEDS: THIAMINE HCL 200 MG/2 ML VIAL IVPB SCH ×2 (09:27→09:31)
[2020-11-05] MEDS: FUROSEMIDE 40 MG TABLET (FP) PO SCH (09:27)
[2020-11-05 10:23] LABS: BASO % 0.5 % (0-2.0); EOS % 2.6 % (0-4.5); HEMATOCRIT 28.7 % (35.4-49); HEMOGLOBIN 9.5 GM/dL (11.7-16.9); LYMPH % 12.1 % (8-40); MCH 31.7 pg (25.7-33.7); MCHC 33.2 g/dl (32.0-35.9); MEAN CELL VOLUME 95.4 fl (80-96); MEAN PLT VOLUME 7.6 fl (7.5-11.1); MONO % 10.2 % (3.8-10.2); NEUT % 74.6 % (42.8-82.8); PLATELET COUNT 327 10^3/uL (134-434); RBC 3.01 M/mm3 (4.00-5.60); RDW 14.6 % (11.9-15.9); WHITE BLOOD COUNT 10.9 K/mm3 (4.0-10.0)
[2020-11-05 11:00] LABS: BLOOD UREA NITROGEN 17.9 mg/dL (7-18); CALCIUM 8.1 mg/dL (8.5-10.1)
[2020-11-05 11:01] LABS: MAGNESIUM 2.1 mg/dL (1.8-2.4)
[2020-11-05 11:03] LABS: CREATININE 1.7 mg/dL (0.55-1.3); PHOSPHOROUS 3.4 mg/dL (2.5-4.9)
[2020-11-05 11:04] LABS: BILIRUBIN,TOTAL 0.6 mg/dL (0.2-1); TOT PROT 6.3 g/dl (6.4-8.2)
[2020-11-05 11:08] LABS: ALBUMIN 2.4 g/dl (3.4-5.0); IRON SERUM 20 ug/dL (50-175); TOTAL IRON BINDING CAPACITY 191 ug/dL (250-450)
[2020-11-05] MEDS: HEPARIN - 25,000 UNIT in SODIUM CHLORIDE 495 ML IV SCH (14:50)
[2020-11-05 16:05] VITALS: BMI 33.0
[2020-11-05] MEDS: ALBUTEROL SO4 2.5/IPRATROPIUM 0.5 INH SOL 3 ML VIAL.NEB. NEB SCH (20:32)
[2020-11-06] MEDS ORDERED: LORazepam 0.5 MG TABLET PO PRN
[2020-11-06] MEDS: ALBUTEROL SO4 2.5/IPRATROPIUM 0.5 INH SOL 3 ML VIAL.NEB. NEB SCH ×6 (00:30→20:02)
[2020-11-06] MEDS: LABETALOL HCL 200 MG TABLET (FP) PO SCH ×3 (06:19→21:46)
[2020-11-06] MEDS: hydrALAZINE HCL 50 MG TABLET (FP) PO SCH ×3 (06:19→21:46)
[2020-11-06] MEDS: INSULIN SLIDING SCALE (NOVOLOG) 1 VIAL SQ SCH ×4 (06:32→21:47)
[2020-11-06 08:42] LABS: HEMATOCRIT 26.1 % (35.4-49); HEMOGLOBIN 8.7 GM/dL (11.7-16.9); MCH 31.5 pg (25.7-33.7); MCHC 33.5 g/dl (32.0-35.9); MEAN CELL VOLUME 94.2 fl (80-96); MEAN PLT VOLUME 7.2 fl (7.5-11.1); PLATELET COUNT 308 10^3/uL (134-434); RBC 2.77 M/mm3 (4.00-5.60); RDW 14.3 % (11.9-15.9); WHITE BLOOD COUNT 10.8 K/mm3 (4.0-10.0)
[2020-11-06 08:59] LABS: BLOOD UREA NITROGEN 17.2 mg/dL (7-18); CALCIUM 8.1 mg/dL (8.5-10.1)
[2020-11-06 09:00] LABS: ALBUMIN 2.5 g/dl (3.4-5.0)
[2020-11-06 09:03] LABS: CREATININE 1.7 mg/dL (0.55-1.3)
[2020-11-06 09:05] LABS: BILIRUBIN,TOTAL 0.6 mg/dL (0.2-1); TOT PROT 6.4 g/dl (6.4-8.2)
[2020-11-06] MEDS ORDERED: IRON SUCROSE INJECTION 200 MG in SODIUM CHLORIDE 90 ML IVPB ONE (09:23)
[2020-11-06] MEDS: FUROSEMIDE 40 MG TABLET (FP) PO SCH (09:31)
[2020-11-06] MEDS: FOLIC ACID 1 MG TABLET (FP) PO SCH (09:31)
[2020-11-06] MEDS: NIFEdipine E.R 60 MG TABLET PO SCH (09:31)
[2020-11-06] MEDS: THIAMINE HCL 200 MG/2 ML VIAL IVPB SCH (09:31)
[2020-11-06] MEDS: PANTOPRAZOLE 40 MG TABLET PO SCH (10:41)
[2020-11-06] MEDS ORDERED: FUROSEMIDE 40 MG/4 ML INJECTABLE VIAL IVPUSH ONE (16:15)
[2020-11-06] MEDS ORDERED: COLCHICINE 0.6 MG TAB PO ONE (17:03)
[2020-11-06] MEDS: HEPARIN - 25,000 UNIT in SODIUM CHLORIDE 495 ML IV SCH (17:19)
[2020-11-06] MEDS: CARVEDILOL 25 MG TABLET (FP) PO SCH (21:46)
[2020-11-07] MEDS: ALBUTEROL SO4 2.5/IPRATROPIUM 0.5 INH SOL 3 ML VIAL.NEB. NEB SCH ×7 (00:01→23:55)
[2020-11-07] MEDS: hydrALAZINE HCL 50 MG TABLET (FP) PO SCH ×3 (05:56→21:10)
[2020-11-07] MEDS: LABETALOL HCL 200 MG TABLET (FP) PO SCH ×3 (05:56→21:11)
[2020-11-07] MEDS: INSULIN SLIDING SCALE (NOVOLOG) 1 VIAL SQ SCH ×4 (06:09→21:12)
[2020-11-07] MEDS: HEPARIN - 25,000 UNIT in SODIUM CHLORIDE 495 ML IV SCH ×2 (07:34→16:15)
[2020-11-07 08:40] LABS: BASO % 0.6 % (0-2.0); EOS % 2.3 % (0-4.5); HEMATOCRIT 26.4 % (35.4-49); HEMOGLOBIN 8.8 GM/dL (11.7-16.9); LYMPH % 9.7 % (8-40); MCH 31.5 pg (25.7-33.7); MCHC 33.2 g/dl (32.0-35.9); MEAN CELL VOLUME 94.8 fl (80-96); MEAN PLT VOLUME 7.6 fl (7.5-11.1); MONO % 13.1 % (3.8-10.2); NEUT % 74.3 % (42.8-82.8); PLATELET COUNT 317 10^3/uL (134-434); RBC 2.79 M/mm3 (4.00-5.60); RDW 14.5 % (11.9-15.9); WHITE BLOOD COUNT 11.4 K/mm3 (4.0-10.0)
[2020-11-07 09:05] LABS: CALCIUM 8.7 mg/dL (8.5-10.1)
[2020-11-07 09:06] LABS: ALBUMIN 2.8 g/dl (3.4-5.0); BLOOD UREA NITROGEN 15.4 mg/dL (7-18); CREATININE 1.6 mg/dL (0.55-1.3)
[2020-11-07 09:07] LABS: BILIRUBIN,TOTAL 0.8 mg/dL (0.2-1)
[2020-11-07 09:08] LABS: TOT PROT 7.1 g/dl (6.4-8.2)
[2020-11-07] MEDS ORDERED: PT OWN MED DRAWER 7, Y5N ONE (09:44)
[2020-11-07] MEDS: FOLIC ACID 1 MG TABLET (FP) PO SCH (10:22)
[2020-11-07] MEDS: CARVEDILOL 25 MG TABLET (FP) PO SCH ×2 (10:22→21:10)
[2020-11-07] MEDS: NIFEdipine E.R 60 MG TABLET PO SCH (10:22)
[2020-11-07] MEDS: FUROSEMIDE 40 MG TABLET (FP) PO SCH (10:22)
[2020-11-07] MEDS: PANTOPRAZOLE 40 MG TABLET PO SCH (10:22)
[2020-11-07] MEDS ORDERED: INSULIN (NOVOLOG) ASPART 100 UNITS/ML 10ML VIAL ONE ×2 (12:12→20:32)
[2020-11-07] MEDS: THIAMINE HCL 100 MG TABLET (FP) PO SCH (12:16)
[2020-11-07] MEDS: THIAMINE HCL 200 MG/2 ML VIAL IVPB SCH (13:37)
[2020-11-07] MEDS ORDERED: FUROSEMIDE 40 MG/4 ML INJECTABLE VIAL IVPUSH ONE (18:38)
[2020-11-07] MEDS: HEPARIN NA (PORCINE) 5,000 UNITS/ML 1ML VIAL IVPUSH PRN (18:40)
[2020-11-08] MEDS: ALBUTEROL SO4 2.5/IPRATROPIUM 0.5 INH SOL 3 ML VIAL.NEB. NEB SCH ×4 (04:45→15:21)
[2020-11-08] MEDS: LABETALOL HCL 200 MG TABLET (FP) PO SCH ×2 (05:47→15:02)
[2020-11-08] MEDS: hydrALAZINE HCL 50 MG TABLET (FP) PO SCH ×2 (05:47→15:02)
[2020-11-08] MEDS: INSULIN SLIDING SCALE (NOVOLOG) 1 VIAL SQ SCH ×3 (06:00→16:36)
[2020-11-08] MEDS: NIFEdipine E.R 60 MG TABLET PO SCH (09:14)
[2020-11-08] MEDS: CARVEDILOL 25 MG TABLET (FP) PO SCH (09:14)
[2020-11-08] MEDS: THIAMINE HCL 100 MG TABLET (FP) PO SCH (09:14)
[2020-11-08] MEDS: PANTOPRAZOLE 40 MG TABLET PO SCH (09:14)
[2020-11-08] MEDS: FUROSEMIDE 40 MG TABLET (FP) PO SCH (09:15)
[2020-11-08] MEDS: FOLIC ACID 1 MG TABLET (FP) PO SCH (09:15)
[2020-11-08] MEDS ORDERED: ASPIRIN COATED 81 MG TABLET.EC PO SCH (10:00)
[2020-11-08] MEDS ORDERED: CLOPIDOGREL BISULFATE 75 MG TABLET (FP) PO SCH (10:00)
[2020-11-08 10:29] LABS: BASO % 0.7 % (0-2.0); EOS % 2.4 % (0-4.5); HEMATOCRIT 25.7 % (35.4-49); HEMOGLOBIN 8.5 GM/dL (11.7-16.9); LYMPH % 11.8 % (8-40); MCH 31.4 pg (25.7-33.7); MEAN PLT VOLUME 7.3 fl (7.5-11.1); MONO % 9.8 % (3.8-10.2); NEUT % 75.3 % (42.8-82.8); PLATELET COUNT 341 10^3/uL (134-434); RBC 2.71 M/mm3 (4.00-5.60); RDW 14.6 % (11.9-15.9); WHITE BLOOD COUNT 9.7 K/mm3 (4.0-10.0)
[2020-11-08] MEDS ORDERED: FUROSEMIDE 40 MG/4 ML INJECTABLE VIAL IVPUSH ONE ×2 (14:45)
[2020-11-08] MEDS ORDERED: predniSONE 20 MG TABLET (UD) PO ONE (14:45)
[2020-11-08 16:24] VITALS: BP 137/99; PULSE 77; TEMP 98.8
[2020-11-08 20:07] LABS: GLIADIN ANTIBODY IGA 15 units (0-19); GLIADIN ANTIBODY IGG 5 units (0-19); TRANSGLUTAMINASE IGG 7 U/mL (0-5)
== END 2020-11-08 18:35 | disposition home or self-care (01) | DRG 197 ==
LOC: JER 11:59 → JERBED 18:11 → J8W 11-05 00:38
PROVIDERS: ADMIT Internal Medicine; ATTEND Internal Medicine
DX: I70.201 Unspecified atherosclerosis of native arteries of extremities, right leg (principal); E11.22 Type 2 diabetes mellitus with diabetic chronic kidney disease; I42.0 Dilated cardiomyopathy; I50.33 Acute on chronic diastolic (congestive) heart failure; E11.51 Type 2 diabetes mellitus with diabetic peripheral angiopathy without gangrene; I13.0 Hypertensive heart and chronic kidney disease with heart failure and stage 1 through stage 4 chronic kidney disease, or unspecified chronic kidney disease; E78.5 Hyperlipidemia, unspecified; F11.10 Opioid abuse, uncomplicated; F14.10 Cocaine abuse, uncomplicated; F17.210 Nicotine dependence, cigarettes, uncomplicated; I25.10 Atherosclerotic heart disease of native coronary artery without angina pectoris; I25.2 Old myocardial infarction; I83.90 Asymptomatic varicose veins of unspecified lower extremity; J44.9 Chronic obstructive pulmonary disease, unspecified; J45.909 Unspecified asthma, uncomplicated; K21.9 Gastro-esophageal reflux disease without esophagitis; K31.89 Other diseases of stomach and duodenum; K42.9 Umbilical hernia without obstruction or gangrene; K57.90 Diverticulosis of intestine, part unspecified, without perforation or abscess without bleeding; M10.9 Gout, unspecified; M17.11 Unilateral primary osteoarthritis, right knee; M25.571 Pain in right ankle and joints of right foot; M79.661 Pain in right lower leg; M79.89 Other specified soft tissue disorders; N18.32 Chronic kidney disease, stage 3b; R00.0 Tachycardia, unspecified; R07.9 Chest pain, unspecified; R19.7 Diarrhea, unspecified; R26.2 Difficulty in walking, not elsewhere classified; R59.0 Localized enlarged lymph nodes; R60.9 Edema, unspecified; T50.B95A Adverse effect of other viral vaccines, initial encounter; Z98.61 Coronary angioplasty status; E66.9 Obesity, unspecified; Z68.33 Body mass index [BMI] 33.0-33.9, adult
CPT/HCPCS: 36415; 73610-TC-RT-FY; 73630-TC-RT-FY; 73706-TC-RT; 80053; 81003; 82272; 82784; 82962; 83516; 83540; 83550; 83735; 84100; 85025; 85027; 85045; 85610; 85730; 87040; 93005; 93010; 93925-TC; 93971-TC; 94640; 97116-GP; 97161-GP; 99285-25; C9803; J1644; Q9967; U0003; U0005

== ENCOUNTER 2020-11-14 17:00 | Emergency (ER) | payer OTHER ==
[2020-11-14 17:05] VITALS: BP 154/89; PULSE 96; TEMP 99.1; BMI 32.9
== END 2020-11-14 18:52 | disposition home or self-care (01) ==
LOC: JERFT 17:00
DX: M25.571 Pain in right ankle and joints of right foot (principal); W10.1XXA Fall (on)(from) sidewalk curb, initial encounter; Y93.01 Activity, walking, marching and hiking
CPT/HCPCS: 73590-TC-RT-FY; 73610-TC-RT-FY; 73630-TC-RT-FY; 99284-25

== ENCOUNTER 2020-12-07 16:34 | Inpatient (IN) | payer OTHER ==
[2020-12-07] MEDS ORDERED: SODIUM CHLORIDE 1,000 ML IV SCH (17:15)
[2020-12-07] MEDS ORDERED: LABETALOL HCL 5 MG/1 ML (100MG/20 ML VIAL) IVPUSH ONE (17:34)
[2020-12-07] MEDS ORDERED: methylPREDNISolone NA SUCC 125 MG/2 ML VIAL ONE (17:52)
[2020-12-07] MEDS ORDERED: ALTEPLASE 100 MG/100 ML VIAL IVPB ONE (18:00)
[2020-12-07] MEDS ORDERED: ALTEPLASE BOLUS IVPUSH ONE (18:00)
[2020-12-07] MEDS ORDERED: ONDANSETRON 4 MG/2 ML VIAL IVPUSH ONE (18:02)
[2020-12-07] MEDS ORDERED: methylPREDNISolone NA SUCC 125 MG/2 ML VIAL IVPB ONE (18:02)
[2020-12-07] MEDS ORDERED: ONDANSETRON 4 MG/2 ML VIAL ONE (18:02)
[2020-12-07] MEDS ORDERED: ALTEPLASE 100MG 100 ML ONE (18:31)
[2020-12-07 18:46] LABS: BASO % 0.9 % (0-2.0); EOS % 1.4 % (0-4.5); HEMATOCRIT 28.5 % (35.4-49); HEMOGLOBIN 9.5 GM/dL (11.7-16.9); LYMPH % 12.8 % (8-40); MCH 29.9 pg (25.7-33.7); MCHC 33.3 g/dl (32.0-35.9); MEAN CELL VOLUME 89.9 fl (80-96); MEAN PLT VOLUME 7.5 fl (7.5-11.1); MONO % 7.3 % (3.8-10.2); NEUT % 77.6 % (42.8-82.8); PLATELET COUNT 390 10^3/uL (134-434); RBC 3.17 M/mm3 (4.00-5.60); RDW 15.6 % (11.9-15.9); WHITE BLOOD COUNT 9.6 K/mm3 (4.0-10.0)
[2020-12-07 18:53] LABS: INR 1.1 (0.83-1.09); PROTHROMBIN TIME (PATIENT) 12.3 SEC (9.7-13.0)
[2020-12-07 18:55] LABS: ACTIVATED PTT 29.8 SECONDS (25.2-36.5)
[2020-12-07 19:06] LABS: CHLORIDE 108 mmol/L (98-107); SODIUM 137 mmol/L (136-145)
[2020-12-07 19:09] LABS: ALBUMIN 2.6 g/dl (3.4-5.0); ANION GAP 11 MMOL/L (8-16); CALCIUM 8.4 mg/dL (8.5-10.1); CO2 19 mmol/L (21-32); GLUCOSE,RANDOM 144 mg/dL (74-106)
[2020-12-07 19:12] LABS: CREATININE 1.7 mg/dL (0.55-1.3); SGOT/AST 38 U/L (15-37); SGPT/ALT 28 U/L (13-61)
[2020-12-07 19:13] LABS: BILIRUBIN,TOTAL 0.4 mg/dL (0.2-1); CHOLESTEROL 174 mg/dL (50-200); LDL CHOLESTEROL (ONLY SJRH) 95 mg/dL (5-100); TOT PROT 7.4 g/dl (6.4-8.2); TRIGLYCERIDES 152 mg/dL (0-150)
[2020-12-07 19:15] LABS: ALK PHOS 140 U/L (45-117); HDL CHOLESTEROL 40 mg/dL (40-60)
[2020-12-07] MEDS: NICARDIPINE 25 MG in DEXTROSE 5%-WATER - 240 ML IVPB SCH (19:48)
[2020-12-07 21:21] LABS: EPI CELLS 3 /uL (0-25.1); HYALINE CASTS 2 /uL (0-3.1); URINE APPEARANCE CLEAR; URINE BACTERIA 4 /uL (0-1359); URINE BILIRUBIN NEGATIVE (NEGATIVE); URINE COLOR YELLOW; URINE GLUCOSE (UA) NEGATIVE (NEGATIVE); URINE KETONE NEGATIVE (NEGATIVE); URINE LEUK ESTERASE NEGATIVE (NEGATIVE); URINE NITRITE NEGATIVE (NEGATIVE); URINE PROTEIN 2+ (NEGATIVE); URINE RBC 9 /uL (0-23.9); URINE UROBILINOGEN 0.2 mg/dL (0.2-1.0); URINE WBC 3 /uL (0-25.8)
[2020-12-07 21:30] LABS: OPIATES, URI NEGATIVE (NEGATIVE); PHENCYCLIDINE,URINE NEGATIVE (NEGATIVE)
[2020-12-07] MEDS ORDERED: ALBUTEROL SO4 2.5/IPRATROPIUM 0.5 INH SOL 3 ML VIAL.NEB. NEB SCH (21:30)
[2020-12-07 21:31] LABS: METHADONE, UR NEGATIVE (NEGATIVE); URINE BARBITURATES NEGATIVE (NEGATIVE); URINE BENZODIAZEPINES NEGATIVE (NEGATIVE)
[2020-12-07 21:43] LABS: COCAINE, UR POSITIVE (NEGATIVE); URINE AMPHETAMINES NEGATIVE (NEGATIVE)
[2020-12-07] MEDS ORDERED: ALBUTEROL SO4 2.5/IPRATROPIUM 0.5 INH SOL 3 ML VIAL.NEB. NEB ONE (22:15)
[2020-12-08] MEDS: ATORVASTATIN CA 40 MG TABLET (FP) PO SCH ×2 (00:20→21:37)
[2020-12-08] MEDS: SPIRONOLACTONE 25 MG TABLET PO SCH ×3 (00:20→21:35)
[2020-12-08] MEDS: BUDESONIDE/FORMETEROL FUMARATE 80/4.5 mcg INHALER IH SCH ×3 (01:29→21:40)
[2020-12-08] MEDS: HEPARIN NA (PORCINE) 5,000 UNITS/ML 1ML VIAL SQ SCH ×3 (05:33→21:36)
[2020-12-08 06:49] LABS: HEMOGLOBIN 9.4 GM/dL (11.7-16.9); MCH 29.9 pg (25.7-33.7); MCHC 32.5 g/dl (32.0-35.9); MEAN CELL VOLUME 91.8 fl (80-96); MEAN PLT VOLUME 7.3 fl (7.5-11.1); PLATELET COUNT 352 10^3/uL (134-434); RBC 3.16 M/mm3 (4.00-5.60); RDW 15.9 % (11.9-15.9); WHITE BLOOD COUNT 8.3 K/mm3 (4.0-10.0)
[2020-12-08 07:10] LABS: ALBUMIN 2.4 g/dl (3.4-5.0); CALCIUM 8.2 mg/dL (8.5-10.1); CO2 19 mmol/L (21-32)
[2020-12-08 07:14] LABS: CREATININE 1.7 mg/dL (0.55-1.3); PHOSPHOROUS 3.1 mg/dL (2.5-4.9); SGOT/AST 17 U/L (15-37); SGPT/ALT 24 U/L (13-61)
[2020-12-08 07:15] LABS: BILIRUBIN,TOTAL 0.2 mg/dL (0.2-1)
[2020-12-08 07:17] LABS: ALK PHOS 145 U/L (45-117)
[2020-12-08 07:26] LABS: ANION GAP 11 MMOL/L (8-16); CHLORIDE 105 mmol/L (98-107); GLUCOSE,RANDOM 423 mg/dL (74-106); SODIUM 135 mmol/L (136-145)
[2020-12-08] MEDS: LABETALOL HCL 200 MG TABLET (FP) PO SCH ×2 (08:30→13:13)
[2020-12-08] MEDS: hydrALAZINE HCL 50 MG TABLET (FP) PO SCH ×3 (08:30→21:36)
[2020-12-08] MEDS: TAMSULOSIN HCL 0.4 MG CAP PO SCH (08:30)
[2020-12-08] MEDS: NIFEdipine E.R 60 MG TABLET PO SCH (09:20)
[2020-12-08] MEDS: FUROSEMIDE 40 MG TABLET (FP) PO SCH (09:20)
[2020-12-08] MEDS: CLOPIDOGREL BISULFATE 75 MG TABLET (FP) PO SCH (09:20)
[2020-12-08] MEDS: PANTOPRAZOLE SODIUM 40 MG VIAL IVPUSH SCH (09:20)
[2020-12-08] MEDS: ASPIRIN COATED 81 MG TABLET.EC PO SCH (09:21)
[2020-12-08 10:14] LABS: ANISOCYTOSIS 0; HELMET CELLS 0; HOWELL-JOLLY BODIES 0; MACROCYTOSIS 0; OVALOCYTE 0; PLATELET ESTIMATE NORMAL; ROULEAU 0; SICKELED CELLS 0; TARGET CELLS 0; TEAR DROP CELLS 0; TOXIC GRANULATION 0
[2020-12-08] MEDS: NICARDIPINE 25 MG in DEXTROSE 5%-WATER - 240 ML IVPB SCH (10:50)
[2020-12-08] MEDS: MUPIROCIN 2% TOPICAL OINTMENT FOR DECOLONIZATION NS SCH ×2 (10:50→21:36)
[2020-12-08] MEDS: INSULIN SLIDING SCALE (NOVOLOG) 1 VIAL SQ SCH ×3 (10:57→21:40)
[2020-12-08] MEDS: ALBUTEROL SO4 2.5/IPRATROPIUM 0.5 INH SOL 3 ML VIAL.NEB. NEB SCH ×3 (11:30→20:41)
[2020-12-08] MEDS ORDERED: LACTATED RINGERS SOLUTION 1000 ML INFUS.BAG IV ONE (16:00)
[2020-12-08] MEDS: CHLORHEXIDINE GLUCONATE 4% CLEANSER FOR DECOLONIZATION TP SCH (21:36)
[2020-12-08] MEDS: LABETALOL HCL 100 MG TABLET (FP) PO SCH (21:37)
[2020-12-09] MEDS ORDERED: INSULIN (LEVEMIR) 100 UNITS/ML UNITS SQ SCH (01:15)
[2020-12-09] MEDS ORDERED: ALBUTEROL SO4 2.5/IPRATROPIUM 0.5 INH SOL 3 ML VIAL.NEB. NEB ONE (01:15)
[2020-12-09] MEDS ORDERED: methylPREDNISolone NA SUCC 40 MG/1 ML VIAL IVPUSH SCH (02:00)
[2020-12-09] MEDS: hydrALAZINE HCL 50 MG TABLET (FP) PO SCH ×3 (05:09→22:03)
[2020-12-09] MEDS: LABETALOL HCL 100 MG TABLET (FP) PO SCH ×3 (05:09→22:03)
[2020-12-09] MEDS: HEPARIN NA (PORCINE) 5,000 UNITS/ML 1ML VIAL SQ SCH ×3 (05:10→22:04)
[2020-12-09] MEDS: INSULIN SLIDING SCALE (NOVOLOG) 1 VIAL SQ SCH ×4 (06:14→22:15)
[2020-12-09 07:18] LABS: ALBUMIN 2.6 g/dl (3.4-5.0); CALCIUM 8.4 mg/dL (8.5-10.1)
[2020-12-09 07:19] LABS: BLOOD UREA NITROGEN 26.4 mg/dL (7-18); MAGNESIUM 2.1 mg/dL (1.8-2.4)
[2020-12-09 07:23] LABS: BILIRUBIN,TOTAL 0.3 mg/dL (0.2-1); CREATININE 1.9 mg/dL (0.55-1.3); PHOSPHOROUS 4.2 mg/dL (2.5-4.9); TOT PROT 7.3 g/dl (6.4-8.2)
[2020-12-09] MEDS: ALBUTEROL SO4 2.5/IPRATROPIUM 0.5 INH SOL 3 ML VIAL.NEB. NEB SCH ×3 (07:30→20:27)
[2020-12-09 07:46] LABS: HEMATOCRIT 29.2 % (35.4-49); HEMOGLOBIN 9.5 GM/dL (11.7-16.9); MCH 29.7 pg (25.7-33.7); MCHC 32.7 g/dl (32.0-35.9); MEAN PLT VOLUME 7.7 fl (7.5-11.1); PLATELET COUNT 397 10^3/uL (134-434); RBC 3.21 M/mm3 (4.00-5.60); RDW 15.4 % (11.9-15.9); WHITE BLOOD COUNT 15.2 K/mm3 (4.0-10.0)
[2020-12-09] MEDS ORDERED: FUROSEMIDE 40 MG/4 ML INJECTABLE VIAL IVPUSH ONE (08:30)
[2020-12-09] MEDS ORDERED: PT OWN MED DRAWER 7, Y5N ONE (09:01)
[2020-12-09] MEDS: TAMSULOSIN HCL 0.4 MG CAP PO SCH (09:23)
[2020-12-09] MEDS: CLOPIDOGREL BISULFATE 75 MG TABLET (FP) PO SCH (09:24)
[2020-12-09] MEDS: SPIRONOLACTONE 25 MG TABLET PO SCH ×2 (09:24→22:04)
[2020-12-09] MEDS: FUROSEMIDE 40 MG TABLET (FP) PO SCH (09:24)
[2020-12-09] MEDS: NIFEdipine E.R 60 MG TABLET PO SCH (09:24)
[2020-12-09] MEDS: PANTOPRAZOLE SODIUM 40 MG VIAL IVPUSH SCH (09:25)
[2020-12-09] MEDS: ASPIRIN COATED 81 MG TABLET.EC PO SCH (09:25)
[2020-12-09] MEDS: MUPIROCIN 2% TOPICAL OINTMENT FOR DECOLONIZATION NS SCH ×2 (09:27→22:04)
[2020-12-09] MEDS: INSULIN (LEVEMIR) 100 UNITS/ML UNITS SQ SCH (09:27)
[2020-12-09] MEDS: BUDESONIDE/FORMETEROL FUMARATE 80/4.5 mcg INHALER IH SCH ×2 (09:33→22:04)
[2020-12-09] MEDS: CHLORHEXIDINE GLUCONATE 4% CLEANSER FOR DECOLONIZATION TP SCH (22:04)
[2020-12-09] MEDS: ATORVASTATIN CA 40 MG TABLET (FP) PO SCH (22:04)
[2020-12-10 00:38] VITALS: BMI 32.3
[2020-12-10] MEDS ORDERED: ALBUTEROL SO4 2.5/IPRATROPIUM 0.5 INH SOL 3 ML VIAL.NEB. NEB ONE ×2 (05:34→11:11)
[2020-12-10] MEDS: hydrALAZINE HCL 50 MG TABLET (FP) PO SCH ×3 (06:19→22:01)
[2020-12-10] MEDS: LABETALOL HCL 100 MG TABLET (FP) PO SCH ×3 (06:19→22:04)
[2020-12-10] MEDS: HEPARIN NA (PORCINE) 5,000 UNITS/ML 1ML VIAL SQ SCH ×3 (06:20→22:00)
[2020-12-10] MEDS: INSULIN SLIDING SCALE (NOVOLOG) 1 VIAL SQ SCH ×4 (06:29→22:19)
[2020-12-10 07:12] LABS: HEMATOCRIT 27.8 % (35.4-49); HEMOGLOBIN 9.2 GM/dL (11.7-16.9); MCH 30.1 pg (25.7-33.7); MCHC 33.2 g/dl (32.0-35.9); MEAN CELL VOLUME 90.6 fl (80-96); MEAN PLT VOLUME 7.5 fl (7.5-11.1); PLATELET COUNT 389 10^3/uL (134-434); RBC 3.07 M/mm3 (4.00-5.60); RDW 15.8 % (11.9-15.9); WHITE BLOOD COUNT 10.5 K/mm3 (4.0-10.0)
[2020-12-10 07:21] LABS: INR 1.15 (0.83-1.09); PROTHROMBIN TIME (PATIENT) 12.9 SEC (9.7-13.0)
[2020-12-10 07:24] LABS: ACTIVATED PTT 28.9 SECONDS (25.2-36.5)
[2020-12-10 07:29] LABS: BLOOD UREA NITROGEN 25.2 mg/dL (7-18); CALCIUM 8.3 mg/dL (8.5-10.1)
[2020-12-10 07:30] LABS: ALBUMIN 2.4 g/dl (3.4-5.0); MAGNESIUM 1.5 mg/dL (1.8-2.4)
[2020-12-10 07:34] LABS: BILIRUBIN,TOTAL 0.6 mg/dL (0.2-1); CREATININE 1.7 mg/dL (0.55-1.3); TOT PROT 6.6 g/dl (6.4-8.2)
[2020-12-10] MEDS: ALBUTEROL SO4 2.5/IPRATROPIUM 0.5 INH SOL 3 ML VIAL.NEB. NEB SCH ×3 (08:02→20:40)
[2020-12-10] MEDS: ASPIRIN COATED 81 MG TABLET.EC PO SCH (09:11)
[2020-12-10] MEDS: TAMSULOSIN HCL 0.4 MG CAP PO SCH (09:11)
[2020-12-10] MEDS: NIFEdipine E.R 60 MG TABLET PO SCH (09:11)
[2020-12-10] MEDS: SPIRONOLACTONE 25 MG TABLET PO SCH ×2 (09:11→22:01)
[2020-12-10] MEDS: FUROSEMIDE 40 MG TABLET (FP) PO SCH (09:12)
[2020-12-10] MEDS: CLOPIDOGREL BISULFATE 75 MG TABLET (FP) PO SCH (09:12)
[2020-12-10] MEDS: MUPIROCIN 2% TOPICAL OINTMENT FOR DECOLONIZATION NS SCH ×2 (09:12→22:00)
[2020-12-10] MEDS: BUDESONIDE/FORMETEROL FUMARATE 80/4.5 mcg INHALER IH SCH ×2 (09:13→22:04)
[2020-12-10] MEDS: INSULIN (LEVEMIR) 100 UNITS/ML UNITS SQ SCH (09:14)
[2020-12-10] MEDS: PANTOPRAZOLE SODIUM 40 MG VIAL IVPUSH SCH (09:46)
[2020-12-10] MEDS ORDERED: ALBUTEROL SO4 2.5/IPRATROPIUM 0.5 INH SOL 3 ML VIAL.NEB. NEB SCH (11:00)
[2020-12-10] MEDS ORDERED: ALBUTEROL SO4 2.5/IPRATROPIUM 0.5 INH SOL 3 ML VIAL.NEB. NEB PRN (11:13)
[2020-12-10] MEDS: methylPREDNISolone NA SUCC 40 MG/1 ML VIAL IVPUSH SCH ×2 (12:21→17:37)
[2020-12-10] MEDS ORDERED: MAGNESIUM SULF 50% (8.12 MEQ/2 ML-1 GM VIAL) IVPB ONE (14:34)
[2020-12-10] MEDS: CHLORHEXIDINE GLUCONATE 4% CLEANSER FOR DECOLONIZATION TP SCH (22:04)
[2020-12-10] MEDS: ATORVASTATIN CA 40 MG TABLET (FP) PO SCH (22:04)
[2020-12-11] MEDS: methylPREDNISolone NA SUCC 40 MG/1 ML VIAL IVPUSH SCH ×3 (01:37→17:29)
[2020-12-11] MEDS: INSULIN SLIDING SCALE (NOVOLOG) 1 VIAL SQ SCH ×3 (06:13→16:45)
[2020-12-11] MEDS: LABETALOL HCL 100 MG TABLET (FP) PO SCH ×3 (06:13→21:40)
[2020-12-11] MEDS: HEPARIN NA (PORCINE) 5,000 UNITS/ML 1ML VIAL SQ SCH ×3 (06:13→21:39)
[2020-12-11] MEDS: hydrALAZINE HCL 50 MG TABLET (FP) PO SCH ×3 (06:13→21:39)
[2020-12-11 06:43] LABS: HEMATOCRIT 27.3 % (35.4-49); HEMOGLOBIN 9.1 GM/dL (11.7-16.9); MCH 30.3 pg (25.7-33.7); MCHC 33.2 g/dl (32.0-35.9); MEAN CELL VOLUME 91.1 fl (80-96); MEAN PLT VOLUME 7.8 fl (7.5-11.1); PLATELET COUNT 390 10^3/uL (134-434); RDW 16.2 % (11.9-15.9); WHITE BLOOD COUNT 11.2 K/mm3 (4.0-10.0)
[2020-12-11 07:01] LABS: BLOOD UREA NITROGEN 29.9 mg/dL (7-18); CALCIUM 8.6 mg/dL (8.5-10.1)
[2020-12-11 07:03] LABS: ALBUMIN 2.4 g/dl (3.4-5.0); MAGNESIUM 1.6 mg/dL (1.8-2.4)
[2020-12-11 07:04] LABS: CREATININE 1.6 mg/dL (0.55-1.3)
[2020-12-11 07:05] LABS: PHOSPHOROUS 2.7 mg/dL (2.5-4.9)
[2020-12-11 07:06] LABS: BILIRUBIN,TOTAL 0.5 mg/dL (0.2-1)
[2020-12-11] MEDS: ALBUTEROL SO4 2.5/IPRATROPIUM 0.5 INH SOL 3 ML VIAL.NEB. NEB SCH ×3 (08:55→20:45)
[2020-12-11] MEDS: FUROSEMIDE 40 MG TABLET (FP) PO SCH (09:16)
[2020-12-11] MEDS: TAMSULOSIN HCL 0.4 MG CAP PO SCH (09:16)
[2020-12-11] MEDS: CLOPIDOGREL BISULFATE 75 MG TABLET (FP) PO SCH (09:16)
[2020-12-11] MEDS: MUPIROCIN 2% TOPICAL OINTMENT FOR DECOLONIZATION NS SCH ×2 (09:16→21:40)
[2020-12-11] MEDS: NIFEdipine E.R 60 MG TABLET PO SCH (09:16)
[2020-12-11] MEDS: SPIRONOLACTONE 25 MG TABLET PO SCH ×2 (09:16→21:39)
[2020-12-11] MEDS: ASPIRIN COATED 81 MG TABLET.EC PO SCH (09:16)
[2020-12-11] MEDS: INSULIN (LEVEMIR) 100 UNITS/ML UNITS SQ SCH (09:17)
[2020-12-11] MEDS: PANTOPRAZOLE SODIUM 40 MG VIAL IVPUSH SCH (09:17)
[2020-12-11 09:38] LABS: ANISOCYTOSIS 1+; MACROCYTOSIS 0; PLATELET ESTIMATE NORMAL
[2020-12-11] MEDS: BUDESONIDE/FORMETEROL FUMARATE 80/4.5 mcg INHALER IH SCH ×2 (10:12→21:40)
[2020-12-11] MEDS: CHLORHEXIDINE GLUCONATE 4% CLEANSER FOR DECOLONIZATION TP SCH (21:40)
[2020-12-11] MEDS: ATORVASTATIN CA 40 MG TABLET (FP) PO SCH (21:40)
[2020-12-12] MEDS ORDERED: ALBUTEROL SO4 2.5/IPRATROPIUM 0.5 INH SOL 3 ML VIAL.NEB. NEB PRN (02:54)
[2020-12-12] MEDS ORDERED: hydrALAZINE HCL 50 MG TABLET (FP) PO SCH (06:00)
[2020-12-12] MEDS: LABETALOL HCL 100 MG TABLET (FP) PO SCH ×2 (06:51→14:11)
[2020-12-12] MEDS: HEPARIN NA (PORCINE) 5,000 UNITS/ML 1ML VIAL SQ SCH ×2 (06:51→14:11)
[2020-12-12] MEDS: INSULIN SLIDING SCALE (NOVOLOG) 1 VIAL SQ SCH ×2 (06:52→11:55)
[2020-12-12] MEDS: ALBUTEROL SO4 2.5/IPRATROPIUM 0.5 INH SOL 3 ML VIAL.NEB. NEB SCH ×2 (08:04→13:18)
[2020-12-12] MEDS ORDERED: TAMSULOSIN HCL 0.4 MG CAP PO SCH (08:30)
[2020-12-12] MEDS ORDERED: SPIRONOLACTONE 25 MG TABLET PO SCH (10:00)
[2020-12-12] MEDS ORDERED: CLOPIDOGREL BISULFATE 75 MG TABLET (FP) PO SCH (10:00)
[2020-12-12] MEDS ORDERED: NIFEdipine E.R 60 MG TABLET PO SCH (10:00)
[2020-12-12] MEDS ORDERED: FUROSEMIDE 40 MG TABLET (FP) PO SCH (10:00)
[2020-12-12] MEDS ORDERED: PANTOPRAZOLE SODIUM 40 MG VIAL IVPUSH SCH (10:00)
[2020-12-12] MEDS ORDERED: methylPREDNISolone NA SUCC 40 MG/1 ML VIAL IVPUSH SCH (10:00)
[2020-12-12] MEDS ORDERED: INSULIN (LEVEMIR) 100 UNITS/ML UNITS SQ SCH ×2 (10:00→22:00)
[2020-12-12] MEDS ORDERED: MUPIROCIN 2% TOPICAL OINTMENT FOR DECOLONIZATION NS SCH (10:00)
[2020-12-12] MEDS ORDERED: BUDESONIDE/FORMETEROL FUMARATE 80/4.5 mcg INHALER IH SCH (10:00)
[2020-12-12] MEDS ORDERED: ASPIRIN COATED 81 MG TABLET.EC PO SCH (10:00)
[2020-12-12 10:02] VITALS: PULSE 88
[2020-12-12] MEDS ORDERED: hydrALAZINE HCL 25 MG TABLET (FP) PO SCH (11:00)
[2020-12-12 15:08] VITALS: BP 176/101
[2020-12-12 16:45] VITALS: TEMP 98.1
[2020-12-12] MEDS ORDERED: ATORVASTATIN CA 40 MG TABLET (FP) PO SCH (22:00)
[2020-12-12] MEDS ORDERED: CHLORHEXIDINE GLUCONATE 4% CLEANSER FOR DECOLONIZATION TP SCH (22:00)
== END 2020-12-12 17:39 | disposition left against medical advice (07) | DRG 199 ==
LOC: JER 16:34 → JICU 19:09 → JER 23:43 → J2W 12-11 21:34
PROVIDERS: ADMIT Internal Medicine
DX: I16.1 Hypertensive emergency (principal); I50.43 Acute on chronic combined systolic (congestive) and diastolic (congestive) heart failure; N17.9 Acute kidney failure, unspecified; I25.10 Atherosclerotic heart disease of native coronary artery without angina pectoris; I25.2 Old myocardial infarction; J44.9 Chronic obstructive pulmonary disease, unspecified; E11.22 Type 2 diabetes mellitus with diabetic chronic kidney disease; I13.0 Hypertensive heart and chronic kidney disease with heart failure and stage 1 through stage 4 chronic kidney disease, or unspecified chronic kidney disease; N18.32 Chronic kidney disease, stage 3b; Z79.84 Long term (current) use of oral hypoglycemic drugs; F14.10 Cocaine abuse, uncomplicated; N40.0 Benign prostatic hyperplasia without lower urinary tract symptoms; E11.65 Type 2 diabetes mellitus with hyperglycemia; E78.00 Pure hypercholesterolemia, unspecified; D64.9 Anemia, unspecified; I71.4 Abdominal aortic aneurysm, without rupture; F10.20 Alcohol dependence, uncomplicated; E11.51 Type 2 diabetes mellitus with diabetic peripheral angiopathy without gangrene; R29.810 Facial weakness; I27.20 Pulmonary hypertension, unspecified; Z53.29 Procedure and treatment not carried out because of patient's decision for other reasons
CPT/HCPCS: 36415; 70450-TC; 70544-TC; 70551-TC; 71275-TC; 74174-TC; 80053; 80061; 80307; 81003; 82550; 82728; 82962; 83036; 83540; 83550; 83735; 84100; 84443; 84466; 84484; 85025; 85027; 85045; 85610; 85730; 86850; 86900; 86901; 93005; 93010; 93306-TC; 93880-TC; 94640; 97116-GP; 97162-GP; 99291; C9803; J1644; Q9967; U0003; U0005

== ENCOUNTER 2021-01-06 18:36 | Inpatient (IN) | payer OTHER ==
[2021-01-06] MEDS ORDERED: ACETAMINOPHEN 1000 MG/100 ML VIAL IVPB ONE (19:45)
[2021-01-06] MEDS ORDERED: SODIUM CHLORIDE 0.9% 500 ML INFUS.BAG IV ONE (19:45)
[2021-01-06] MEDS ORDERED: ACETAMINOPHEN INJECTION 100 ML IVPB ONE (19:54)
[2021-01-06 20:34] LABS: ALBUMIN 2.6 g/dl (3.4-5.0); BLOOD UREA NITROGEN 23.1 mg/dL (7-18); CALCIUM 8.3 mg/dL (8.5-10.1); MAGNESIUM 2.4 mg/dL (1.8-2.4)
[2021-01-06 20:37] LABS: CREATININE 1.6 mg/dL (0.55-1.3)
[2021-01-06 20:38] LABS: PHOSPHOROUS 3.7 mg/dL (2.5-4.9)
[2021-01-06 20:39] LABS: BILIRUBIN,TOTAL 0.4 mg/dL (0.2-1); TOT PROT 6.5 g/dl (6.4-8.2)
[2021-01-06 20:46] LABS: BASO % 0.6 % (0-2.0); EOS % 1.6 % (0-4.5); HEMATOCRIT 23.4 % (35.4-49); HEMOGLOBIN 7.5 GM/dL (11.7-16.9); MCH 29.7 pg (25.7-33.7); MCHC 32.2 g/dl (32.0-35.9); MEAN PLT VOLUME 6.2 fl (7.5-11.1); MONO % 5.2 % (3.8-10.2); NEUT % 84.6 % (42.8-82.8); PLATELET COUNT 400 10^3/uL (134-434); RBC 2.54 M/mm3 (4.00-5.60); WHITE BLOOD COUNT 10.7 K/mm3 (4.0-10.0)
[2021-01-06] MEDS ORDERED: PANTOPRAZOLE SODIUM 40 MG VIAL IVPUSH ONE (21:10)
[2021-01-06] MEDS ORDERED: PANTOPRAZOLE SODIUM 40 MG VIAL ONE (21:42)
[2021-01-06 22:34] LABS: CALCIUM 8.5 mg/dL (8.5-10.1)
[2021-01-06 22:35] LABS: ALBUMIN 2.7 g/dl (3.4-5.0); BLOOD UREA NITROGEN 23.5 mg/dL (7-18); MAGNESIUM 2.4 mg/dL (1.8-2.4)
[2021-01-06 22:38] LABS: CREATININE 1.7 mg/dL (0.55-1.3); PHOSPHOROUS 3.8 mg/dL (2.5-4.9)
[2021-01-06 22:39] LABS: BILIRUBIN,TOTAL 0.4 mg/dL (0.2-1); TOT PROT 6.4 g/dl (6.4-8.2)
[2021-01-06] MEDS ORDERED: MEROPENEM 1 GM in DEXTROSE 5%-WATER 100 ML IVPB ONE (23:47)
[2021-01-07] MEDS ORDERED: MEROPENEM 1 GM VIAL (RESTRICTED TO ID) IVPB ONE (00:03)
[2021-01-07] MEDS ORDERED: ALBUTEROL SO4 HFA INHALER IH PRN (02:37)
[2021-01-07 03:23] LABS: EPI CELLS 10 /uL (0-25.1); HYALINE CASTS 13 /uL (0-3.1); URINE APPEARANCE CLEAR; URINE BACTERIA 2 /uL (0-1359); URINE BILIRUBIN NEGATIVE (NEGATIVE); URINE COLOR YELLOW; URINE GLUCOSE (UA) NEGATIVE (NEGATIVE); URINE KETONE NEGATIVE (NEGATIVE); URINE LEUK ESTERASE NEGATIVE (NEGATIVE); URINE NITRITE NEGATIVE (NEGATIVE); URINE PROTEIN 2+ (NEGATIVE); URINE RBC 7 /uL (0-23.9); URINE UROBILINOGEN 0.2 mg/dL (0.2-1.0); URINE WBC 9 /uL (0-25.8)
[2021-01-07 03:29] LABS: URINE BARBITURATES NEGATIVE (NEGATIVE)
[2021-01-07 03:30] LABS: METHADONE, UR NEGATIVE (NEGATIVE); PHENCYCLIDINE,URINE NEGATIVE (NEGATIVE); URINE BENZODIAZEPINES NEGATIVE (NEGATIVE)
[2021-01-07 03:38] LABS: COCAINE, UR POSITIVE (NEGATIVE); OPIATES, URI NEGATIVE (NEGATIVE); URINE AMPHETAMINES NEGATIVE (NEGATIVE)
[2021-01-07] MEDS ORDERED: LORazepam 2 MG/ML SDV VIAL IVPUSH PRN (04:18)
[2021-01-07 05:12] VITALS: BMI 30.2
[2021-01-07] MEDS ORDERED: hydrALAZINE HCL 25 MG TABLET (FP) PO SCH (06:00)
[2021-01-07] MEDS ORDERED: hydrALAZINE HCL 25 MG TABLET (FP) ONE ×3 (06:05→22:12)
[2021-01-07] MEDS ORDERED: hydrALAZINE HCL 50 MG TABLET (FP) ONE ×3 (06:05→22:12)
[2021-01-07] MEDS: INSULIN SLIDING SCALE (NOVOLOG) 1 VIAL SQ SCH ×4 (06:14→22:45)
[2021-01-07] MEDS: FUROSEMIDE 40 MG TABLET (FP) PO SCH (06:14)
[2021-01-07] MEDS ORDERED: LABETALOL HCL 100 MG TABLET (FP) PO SCH (10:00)
[2021-01-07] MEDS ORDERED: CLOPIDOGREL BISULFATE 75 MG TABLET (FP) PO SCH (10:00)
[2021-01-07] MEDS ORDERED: ASPIRIN COATED 81 MG TABLET.EC PO SCH (10:00)
[2021-01-07] MEDS: PANTOPRAZOLE SODIUM 40 MG VIAL IVPUSH SCH ×2 (10:52→22:45)
[2021-01-07] MEDS: NIFEdipine E.R 60 MG TABLET PO SCH (11:30)
[2021-01-07] MEDS: LABETALOL HCL 200 MG TABLET (FP) PO SCH ×2 (11:30→22:44)
[2021-01-07] MEDS: TAMSULOSIN HCL 0.4 MG CAP PO SCH (11:30)
[2021-01-07 11:43] LABS: INR 1.16 (0.83-1.09)
[2021-01-07] MEDS: CEFTRIAXONE 1 GM in DEXTROSE 5%-WATER - 50 ML IVPB SCH (11:45)
[2021-01-07 11:46] LABS: HEMATOCRIT 21.9 % (35.4-49); HEMOGLOBIN 7.2 GM/dL (11.7-16.9); MCH 29.9 pg (25.7-33.7); MCHC 32.9 g/dl (32.0-35.9); MEAN CELL VOLUME 90.9 fl (80-96); MEAN PLT VOLUME 6.7 fl (7.5-11.1); PLATELET COUNT 338 10^3/uL (134-434); RBC 2.41 M/mm3 (4.00-5.60); RDW 17.5 % (11.9-15.9); WHITE BLOOD COUNT 9.3 K/mm3 (4.0-10.0)
[2021-01-07 12:06] LABS: ALBUMIN 2.6 g/dl (3.4-5.0); BLOOD UREA NITROGEN 23.9 mg/dL (7-18); CALCIUM 8.2 mg/dL (8.5-10.1); MAGNESIUM 2.5 mg/dL (1.8-2.4)
[2021-01-07 12:09] LABS: CREATININE 1.6 mg/dL (0.55-1.3); PHOSPHOROUS 3.7 mg/dL (2.5-4.9)
[2021-01-07 12:14] LABS: BILIRUBIN,TOTAL 0.4 mg/dL (0.2-1)
[2021-01-07] MEDS ORDERED: ATORVASTATIN CA 40 MG TABLET (FP) PO SCH (22:00)
[2021-01-08] MEDS ORDERED: hydrALAZINE HCL 25 MG TABLET (FP) ONE ×2 (06:18→13:29)
[2021-01-08] MEDS ORDERED: hydrALAZINE HCL 50 MG TABLET (FP) ONE ×2 (06:18→13:29)
[2021-01-08] MEDS: INSULIN SLIDING SCALE (NOVOLOG) 1 VIAL SQ SCH ×3 (06:31→17:56)
[2021-01-08] MEDS: FUROSEMIDE 40 MG TABLET (FP) PO SCH (06:31)
[2021-01-08] MEDS ORDERED: cefTRIAXone SODIUM 1 GM VIAL ONE (09:06)
[2021-01-08] MEDS ORDERED: DEXTROSE 5%-WATER - 50 ML IVPB ONE (09:06)
[2021-01-08] MEDS: CEFTRIAXONE 1 GM in DEXTROSE 5%-WATER - 50 ML IVPB SCH (09:15)
[2021-01-08] MEDS: TAMSULOSIN HCL 0.4 MG CAP PO SCH (09:15)
[2021-01-08] MEDS: PANTOPRAZOLE SODIUM 40 MG VIAL IVPUSH SCH (09:16)
[2021-01-08] MEDS: LABETALOL HCL 200 MG TABLET (FP) PO SCH (09:16)
[2021-01-08] MEDS: NIFEdipine E.R 60 MG TABLET PO SCH (09:17)
[2021-01-08 10:57] LABS: BASO % 0.8 % (0-2.0); HEMATOCRIT 22.7 % (35.4-49); HEMOGLOBIN 7.6 GM/dL (11.7-16.9); LYMPH % 10.1 % (8-40); MCH 30.8 pg (25.7-33.7); MCHC 33.3 g/dl (32.0-35.9); MEAN CELL VOLUME 92.4 fl (80-96); MEAN PLT VOLUME 6.7 fl (7.5-11.1); MONO % 8.2 % (3.8-10.2); NEUT % 77.9 % (42.8-82.8); PLATELET COUNT 327 10^3/uL (134-434); RBC 2.46 M/mm3 (4.00-5.60); RDW 17.4 % (11.9-15.9); WHITE BLOOD COUNT 8.7 K/mm3 (4.0-10.0)
[2021-01-08 10:59] LABS: INR 1.05 (0.83-1.09); PROTHROMBIN TIME (PATIENT) 12.3 SEC (9.7-13.0)
[2021-01-08 11:19] LABS: ALBUMIN 2.5 g/dl (3.4-5.0); BLOOD UREA NITROGEN 13.7 mg/dL (7-18); CALCIUM 7.8 mg/dL (8.5-10.1); MAGNESIUM 2.1 mg/dL (1.8-2.4)
[2021-01-08 11:22] LABS: CREATININE 1.7 mg/dL (0.55-1.3)
[2021-01-08 11:24] LABS: TOT PROT 6.1 g/dl (6.4-8.2)
[2021-01-08 11:26] LABS: BILIRUBIN,TOTAL 0.4 mg/dL (0.2-1)
[2021-01-08 13:04] LABS: HEMATOCRIT 21.5 % (35.4-49); HEMOGLOBIN 7.2 GM/dL (11.7-16.9); MCH 30.4 pg (25.7-33.7); MCHC 33.4 g/dl (32.0-35.9); MEAN CELL VOLUME 91.1 fl (80-96); MEAN PLT VOLUME 6.5 fl (7.5-11.1); PLATELET COUNT 282 10^3/uL (134-434); RBC 2.36 M/mm3 (4.00-5.60); RDW 17.3 % (11.9-15.9); WHITE BLOOD COUNT 8.6 K/mm3 (4.0-10.0)
[2021-01-08 17:43] VITALS: BP 105/63; PULSE 84; TEMP 97.8
[2021-01-09] MEDS ORDERED: PANTOPRAZOLE 40 MG TABLET PO SCH (10:00)
== END 2021-01-08 19:08 | disposition left against medical advice (07) | DRG 244 ==
LOC: JER 18:36 → JERBED 23:43 → J5S 01-07 04:31
PROVIDERS: ATTEND Nurse Practitioner Acute Care
PROC: 30233N1 Transfusion of Nonautologous Red Blood Cells into Peripheral Vein, Percutaneous Approach (ICD-10-PCS; principal; 2021-01-06)
DX: K57.33 Diverticulitis of large intestine without perforation or abscess with bleeding (principal); I13.0 Hypertensive heart and chronic kidney disease with heart failure and stage 1 through stage 4 chronic kidney disease, or unspecified chronic kidney disease; I69.354 Hemiplegia and hemiparesis following cerebral infarction affecting left non-dominant side; N17.9 Acute kidney failure, unspecified; I50.32 Chronic diastolic (congestive) heart failure; N18.32 Chronic kidney disease, stage 3b; D64.9 Anemia, unspecified; F14.90 Cocaine use, unspecified, uncomplicated; I71.4 Abdominal aortic aneurysm, without rupture; I25.119 Atherosclerotic heart disease of native coronary artery with unspecified angina pectoris; Z98.61 Coronary angioplasty status; E11.22 Type 2 diabetes mellitus with diabetic chronic kidney disease; K21.9 Gastro-esophageal reflux disease without esophagitis
CPT/HCPCS: 36415; 36430; 36511; 74176-TC; 80053; 80307; 81003; 82272; 82728; 82962; 82977; 83540; 83550; 83735; 84100; 85025; 85027; 85610; 86140; 86850; 86900; 86901; 86922; 87086; 93005; 93010; 99285-25; C9803; J0131; P9038; P9058; U0003; U0005

== ENCOUNTER 2021-01-25 11:04 | Inpatient (IN) | payer OTHER ==
[2021-01-25] MEDS ORDERED: ALBUTEROL SO4 2.5/IPRATROPIUM 0.5 INH SOL 3 ML VIAL.NEB. NEB ONE ×4 (11:50→13:29)
[2021-01-25] MEDS ORDERED: NITROGLYCERIN SUBLINGUAL 1/150 0.4 MG TAB SL ONE ×3 (11:59→14:26)
[2021-01-25] MEDS ORDERED: ACETAMINOPHEN 1000 MG/100 ML VIAL IVPB ONE (12:17)
[2021-01-25] MEDS ORDERED: NITROGLYCERIN SUBLINGUAL 1/150 0.4 MG TAB ONE ×2 (12:40→15:03)
[2021-01-25] MEDS ORDERED: ACETAMINOPHEN INJECTION 100 ML IVPB ONE (12:40)
[2021-01-25 13:19] LABS: BASO % 0.9 % (0-2.0); EOS % 1.1 % (0-4.5); HEMOGLOBIN 7.2 GM/dL (11.7-16.9); LYMPH % 11.5 % (8-40); MCHC 31.6 g/dl (32.0-35.9); MEAN PLT VOLUME 6.9 fl (7.5-11.1); MONO % 9.3 % (3.8-10.2); NEUT % 77.2 % (42.8-82.8); PLATELET COUNT 414 10^3/uL (134-434); RBC 2.42 M/mm3 (4.00-5.60); RDW 18.8 % (11.9-15.9); WHITE BLOOD COUNT 9.9 K/mm3 (4.0-10.0)
[2021-01-25] MEDS ORDERED: FUROSEMIDE 40 MG/4 ML INJECTABLE VIAL IVPUSH ONE ×2 (13:24→19:00)
[2021-01-25 13:26] LABS: INR 1.19 (0.83-1.09); PROTHROMBIN TIME (PATIENT) 13.4 SEC (9.7-13.0)
[2021-01-25] MEDS ORDERED: FUROSEMIDE 40 MG/4 ML INJECTABLE VIAL ONE ×2 (13:26→22:01)
[2021-01-25 13:27] LABS: VENOUS PCO2 40.2 mmHg (38-52); VENOUS PH 7.311 (7.310-7.410)
[2021-01-25 13:28] LABS: ACTIVATED PTT 28.2 SECONDS (25.2-36.5)
[2021-01-25 13:43] LABS: CHLORIDE 112 mmol/L (98-107); SODIUM 141 mmol/L (136-145)
[2021-01-25 13:45] LABS: CALCIUM 8.1 mg/dL (8.5-10.1)
[2021-01-25 13:46] LABS: ANION GAP 9 MMOL/L (8-16); BLOOD UREA NITROGEN 27.1 mg/dL (7-18); CO2 20 mmol/L (21-32)
[2021-01-25 13:49] LABS: CREATININE 1.7 mg/dL (0.55-1.3); SGOT/AST 27 U/L (15-37); SGPT/ALT 25 U/L (13-61)
[2021-01-25 13:50] LABS: TOT PROT 6.7 g/dl (6.4-8.2)
[2021-01-25 13:51] LABS: BILIRUBIN,TOTAL 0.3 mg/dL (0.2-1)
[2021-01-25 13:52] LABS: ALK PHOS 199 U/L (45-117)
[2021-01-25 13:54] LABS: N-TERMINAL BNP 7297.7 pg/ml (5-125)
[2021-01-25 14:01] LABS: GLUCOSE,RANDOM 143 mg/dL (74-106)
[2021-01-25] MEDS ORDERED: NITROGLYCERIN 2% OINTMENT - 1GM PACKET TD ONE ×2 (14:26→15:02)
[2021-01-25] MEDS ORDERED: methylPREDNISolone NA SUCC 125 MG/2 ML VIAL IVPUSH ONE (16:12)
[2021-01-25] MEDS ORDERED: methylPREDNISolone NA SUCC 125 MG/2 ML VIAL ONE (16:19)
[2021-01-25] MEDS: INSULIN SLIDING SCALE (NOVOLOG) 1 VIAL SQ SCH ×2 (17:30→22:14)
[2021-01-25] MEDS ORDERED: NIFEdipine 10 MG CAPSULE (FP) PO ONE (18:47)
[2021-01-25] MEDS ORDERED: NIFEdipine E.R. 30 MG TABLET ONE (19:25)
[2021-01-25] MEDS ORDERED: hydrALAZINE HCL 25 MG TABLET (FP) ONE ×2 (19:25→22:00)
[2021-01-25] MEDS: NIFEdipine E.R 60 MG TABLET PO SCH (19:30)
[2021-01-25] MEDS: hydrALAZINE HCL 25 MG TABLET (FP) PO SCH ×2 (19:30→22:00)
[2021-01-25] MEDS ORDERED: PANTOPRAZOLE SODIUM 40 MG/100 ML BAG IVPB ONE (22:00)
[2021-01-25] MEDS: PANTOPRAZOLE SODIUM 40 MG VIAL IVPUSH SCH (22:00)
[2021-01-26] MEDS ORDERED: niCARdipine HCL 25 MG/10 ML - 10 ML VIAL IV ONE (00:04)
[2021-01-26] MEDS ORDERED: niCARdipine HCL 25 MG/10 ML AMPUL IVPB ONE (01:09)
[2021-01-26] MEDS ORDERED: hydrALAZINE HCL 25 MG TABLET (FP) ONE ×3 (05:30→22:55)
[2021-01-26] MEDS: hydrALAZINE HCL 25 MG TABLET (FP) PO SCH ×2 (05:42→15:02)
[2021-01-26 09:40] LABS: HEMATOCRIT 25.4 % (35.4-49); HEMOGLOBIN 8.2 GM/dL (11.7-16.9); MCH 30.4 pg (25.7-33.7); MCHC 32.4 g/dl (32.0-35.9); MEAN CELL VOLUME 93.9 fl (80-96); MEAN PLT VOLUME 6.9 fl (7.5-11.1); PLATELET COUNT 393 10^3/uL (134-434); RDW 19.3 % (11.9-15.9); WHITE BLOOD COUNT 8.6 K/mm3 (4.0-10.0)
[2021-01-26] MEDS ORDERED: FUROSEMIDE 40 MG/4 ML INJECTABLE VIAL IVPUSH SCH (10:00)
[2021-01-26 10:01] LABS: INR 1.14 (0.83-1.09); PROTHROMBIN TIME (PATIENT) 13.4 SEC (9.7-13.0)
[2021-01-26 10:03] LABS: ACTIVATED PTT 29.3 SECONDS (25.2-36.5)
[2021-01-26] MEDS ORDERED: FUROSEMIDE 40 MG/4 ML INJECTABLE VIAL ONE (10:19)
[2021-01-26] MEDS ORDERED: PANTOPRAZOLE SODIUM 40 MG VIAL ONE ×2 (10:20→22:56)
[2021-01-26 10:25] LABS: ALBUMIN 2.9 g/dl (3.4-5.0); CALCIUM 8.6 mg/dL (8.5-10.1)
[2021-01-26 10:26] LABS: BLOOD UREA NITROGEN 22.6 mg/dL (7-18); MAGNESIUM 2.2 mg/dL (1.8-2.4)
[2021-01-26] MEDS: NIFEdipine E.R 60 MG TABLET PO SCH (10:29)
[2021-01-26] MEDS: PANTOPRAZOLE SODIUM 40 MG VIAL IVPUSH SCH (10:29)
[2021-01-26 10:30] LABS: BILIRUBIN,TOTAL 0.4 mg/dL (0.2-1)
[2021-01-26 10:32] LABS: CREATININE 1.7 mg/dL (0.55-1.3); PHOSPHOROUS 2.8 mg/dL (2.5-4.9)
[2021-01-26 10:55] LABS: ANISOCYTOSIS 1+; MACROCYTOSIS 1+; PLATELET ESTIMATE NORMAL
[2021-01-26] MEDS: INSULIN SLIDING SCALE (NOVOLOG) 1 VIAL SQ SCH ×3 (15:19→19:24)
[2021-01-26 18:47] LABS: EPI CELLS 2 /uL (0-25.1); HYALINE CASTS 0 /uL (0-3.1); URINE APPEARANCE CLEAR; URINE BACTERIA 1 /uL (0-1359); URINE BILIRUBIN NEGATIVE (NEGATIVE); URINE COLOR YELLOW; URINE GLUCOSE (UA) NEGATIVE (NEGATIVE); URINE KETONE NEGATIVE (NEGATIVE); URINE LEUK ESTERASE NEGATIVE (NEGATIVE); URINE NITRITE NEGATIVE (NEGATIVE); URINE PROTEIN 2+ (NEGATIVE); URINE RBC 3 /uL (0-23.9); URINE UROBILINOGEN 0.2 mg/dL (0.2-1.0); URINE WBC 1 /uL (0-25.8)
[2021-01-26 18:54] LABS: COCAINE, UR POSITIVE (NEGATIVE); METHADONE, UR NEGATIVE (NEGATIVE); OPIATES, URI NEGATIVE (NEGATIVE); PHENCYCLIDINE,URINE NEGATIVE (NEGATIVE); URINE AMPHETAMINES NEGATIVE (NEGATIVE); URINE BARBITURATES NEGATIVE (NEGATIVE); URINE BENZODIAZEPINES NEGATIVE (NEGATIVE)
[2021-01-26] MEDS ORDERED: ALBUTEROL SO4 2.5/IPRATROPIUM 0.5 INH SOL 3 ML VIAL.NEB. NEB ONE (23:47)
[2021-01-27] MEDS: INSULIN SLIDING SCALE (NOVOLOG) 1 VIAL SQ SCH ×5 (00:01→21:24)
[2021-01-27] MEDS: hydrALAZINE HCL 25 MG TABLET (FP) PO SCH ×4 (00:01→22:22)
[2021-01-27] MEDS: PANTOPRAZOLE SODIUM 40 MG VIAL IVPUSH SCH ×3 (00:01→21:23)
[2021-01-27] MEDS ORDERED: ALBUTEROL SO4 2.5/IPRATROPIUM 0.5 INH SOL 3 ML VIAL.NEB. NEB ONE ×3 (05:13→18:25)
[2021-01-27] MEDS: ALBUTEROL SO4 2.5/IPRATROPIUM 0.5 INH SOL 3 ML VIAL.NEB. NEB PRN (05:21)
[2021-01-27] MEDS ORDERED: hydrALAZINE HCL 25 MG TABLET (FP) ONE ×2 (05:25→18:26)
[2021-01-27] MEDS ORDERED: PANTOPRAZOLE SODIUM 40 MG/100 ML BAG IVPB ONE (07:55)
[2021-01-27 08:30] LABS: HEMATOCRIT 27.4 % (35.4-49); HEMOGLOBIN 8.5 GM/dL (11.7-16.9); MCH 29.2 pg (25.7-33.7); MEAN CELL VOLUME 94.1 fl (80-96); MEAN PLT VOLUME 6.9 fl (7.5-11.1); PLATELET COUNT 435 10^3/uL (134-434); RBC 2.92 M/mm3 (4.00-5.60); RDW 19.4 % (11.9-15.9); WHITE BLOOD COUNT 13.5 K/mm3 (4.0-10.0)
[2021-01-27 08:54] LABS: BLOOD UREA NITROGEN 21.8 mg/dL (7-18); CALCIUM 8.7 mg/dL (8.5-10.1)
[2021-01-27 08:57] LABS: CREATININE 1.6 mg/dL (0.55-1.3); TOT PROT 6.9 g/dl (6.4-8.2)
[2021-01-27 08:59] LABS: BILIRUBIN,TOTAL 0.4 mg/dL (0.2-1)
[2021-01-27 10:00] LABS: ANISOCYTOSIS 2+; MACROCYTOSIS 0; PLATELET ESTIMATE NORMAL
[2021-01-27] MEDS: ASPIRIN COATED 81 MG TABLET.EC PO SCH (11:00)
[2021-01-27] MEDS: TAMSULOSIN HCL 0.4 MG CAP PO SCH (11:00)
[2021-01-27] MEDS: BUDESONIDE/FORMETEROL FUMARATE 80/4.5 mcg INHALER IH SCH ×2 (11:00→21:25)
[2021-01-27] MEDS ORDERED: CLOPIDOGREL BISULFATE 75 MG TABLET (FP) ONE (12:34)
[2021-01-27] MEDS ORDERED: ASPIRIN COATED 81 MG TABLET.EC ONE (12:34)
[2021-01-27] MEDS ORDERED: TAMSULOSIN HCL 0.4 MG CAP ONE (12:35)
[2021-01-27] MEDS ORDERED: FUROSEMIDE 40 MG/4 ML INJECTABLE VIAL ONE (12:35)
[2021-01-27] MEDS: NIFEdipine E.R 60 MG TABLET PO SCH (15:14)
[2021-01-27] MEDS: CLOPIDOGREL BISULFATE 75 MG TABLET (FP) PO SCH (15:14)
[2021-01-27] MEDS: FUROSEMIDE 40 MG/4 ML INJECTABLE VIAL IVPUSH SCH (19:48)
[2021-01-27] MEDS: ATORVASTATIN CA 40 MG TABLET (FP) PO SCH (21:23)
[2021-01-28] MEDS: guaiFENesin/D-METHORPHAN HB 10 ML UNIT-DOSE CUPS PO PRN ×2 (01:27→09:46)
[2021-01-28] MEDS ORDERED: ACETAMINOPHEN 325 MG TABLET (FP) PO ONE (06:05)
[2021-01-28] MEDS: FUROSEMIDE 40 MG/4 ML INJECTABLE VIAL IVPUSH SCH ×2 (06:26→14:23)
[2021-01-28] MEDS: hydrALAZINE HCL 25 MG TABLET (FP) PO SCH ×3 (06:27→22:22)
[2021-01-28] MEDS: INSULIN SLIDING SCALE (NOVOLOG) 1 VIAL SQ SCH ×4 (06:27→22:22)
[2021-01-28] MEDS: TAMSULOSIN HCL 0.4 MG CAP PO SCH (09:46)
[2021-01-28] MEDS: ASPIRIN COATED 81 MG TABLET.EC PO SCH (09:46)
[2021-01-28] MEDS: NIFEdipine E.R 60 MG TABLET PO SCH (09:46)
[2021-01-28] MEDS: CLOPIDOGREL BISULFATE 75 MG TABLET (FP) PO SCH (09:46)
[2021-01-28] MEDS: PANTOPRAZOLE SODIUM 40 MG VIAL IVPUSH SCH ×2 (09:46→22:20)
[2021-01-28] MEDS: BUDESONIDE/FORMETEROL FUMARATE 80/4.5 mcg INHALER IH SCH ×2 (09:47→22:23)
[2021-01-28 10:14] LABS: BASO % 0.5 % (0-2.0); EOS % 1.1 % (0-4.5); HEMATOCRIT 29.1 % (35.4-49); HEMOGLOBIN 9.4 GM/dL (11.7-16.9); LYMPH % 5.9 % (8-40); MCH 29.4 pg (25.7-33.7); MCHC 32.5 g/dl (32.0-35.9); MEAN CELL VOLUME 90.5 fl (80-96); MEAN PLT VOLUME 6.9 fl (7.5-11.1); MONO % 8.7 % (3.8-10.2); NEUT % 83.8 % (42.8-82.8); PLATELET COUNT 446 10^3/uL (134-434); RBC 3.21 M/mm3 (4.00-5.60); RDW 18.2 % (11.9-15.9); WHITE BLOOD COUNT 10.9 K/mm3 (4.0-10.0)
[2021-01-28 10:40] LABS: CALCIUM 9.4 mg/dL (8.5-10.1)
[2021-01-28 10:41] LABS: ALBUMIN 2.8 g/dl (3.4-5.0); BLOOD UREA NITROGEN 17.8 mg/dL (7-18); MAGNESIUM 2.1 mg/dL (1.8-2.4)
[2021-01-28 10:43] LABS: BILIRUBIN,TOTAL 0.5 mg/dL (0.2-1)
[2021-01-28 10:44] LABS: CREATININE 1.4 mg/dL (0.55-1.3)
[2021-01-28] MEDS ORDERED: INSULIN (NOVOLOG) ASPART 100 UNITS/ML 10ML VIAL ONE (11:52)
[2021-01-28] MEDS ORDERED: PT OWN MED DRAWER 7, Y5N ONE (22:05)
[2021-01-28] MEDS: SPIRONOLACTONE 25 MG TABLET PO SCH (22:20)
[2021-01-28] MEDS: ATORVASTATIN CA 40 MG TABLET (FP) PO SCH (22:20)
[2021-01-29] MEDS: ALBUTEROL SO4 2.5/IPRATROPIUM 0.5 INH SOL 3 ML VIAL.NEB. NEB PRN (03:30)
[2021-01-29] MEDS: guaiFENesin/D-METHORPHAN HB 10 ML UNIT-DOSE CUPS PO PRN ×2 (05:22→20:39)
[2021-01-29] MEDS ORDERED: PT OWN MED DRAWER 7, Y5N ONE ×2 (06:08→13:48)
[2021-01-29] MEDS: hydrALAZINE HCL 25 MG TABLET (FP) PO SCH (06:15)
[2021-01-29] MEDS: FUROSEMIDE 40 MG/4 ML INJECTABLE VIAL IVPUSH SCH ×2 (06:16→13:49)
[2021-01-29] MEDS: INSULIN SLIDING SCALE (NOVOLOG) 1 VIAL SQ SCH ×4 (06:16→22:10)
[2021-01-29] MEDS: PANTOPRAZOLE SODIUM 40 MG VIAL IVPUSH SCH ×2 (09:34→22:11)
[2021-01-29] MEDS: NIFEdipine E.R 60 MG TABLET PO SCH (09:34)
[2021-01-29] MEDS: TAMSULOSIN HCL 0.4 MG CAP PO SCH (09:34)
[2021-01-29] MEDS: CLOPIDOGREL BISULFATE 75 MG TABLET (FP) PO SCH (09:34)
[2021-01-29] MEDS: ASPIRIN COATED 81 MG TABLET.EC PO SCH (09:34)
[2021-01-29] MEDS: SPIRONOLACTONE 25 MG TABLET PO SCH ×2 (09:34→22:10)
[2021-01-29] MEDS: BUDESONIDE/FORMETEROL FUMARATE 80/4.5 mcg INHALER IH SCH ×2 (09:35→22:09)
[2021-01-29 10:59] LABS: BASO % 0.6 % (0-2.0); EOS % 3.8 % (0-4.5); HEMATOCRIT 31.6 % (35.4-49); HEMOGLOBIN 10.1 GM/dL (11.7-16.9); LYMPH % 6.8 % (8-40); MCHC 32.1 g/dl (32.0-35.9); MEAN CELL VOLUME 90.3 fl (80-96); MEAN PLT VOLUME 7.2 fl (7.5-11.1); NEUT % 80.8 % (42.8-82.8); PLATELET COUNT 526 10^3/uL (134-434); RBC 3.49 M/mm3 (4.00-5.60); RDW 17.7 % (11.9-15.9); WHITE BLOOD COUNT 10.3 K/mm3 (4.0-10.0)
[2021-01-29 11:22] LABS: ALBUMIN 2.8 g/dl (3.4-5.0); CALCIUM 9.1 mg/dL (8.5-10.1); MAGNESIUM 2.1 mg/dL (1.8-2.4)
[2021-01-29 11:25] LABS: CREATININE 1.5 mg/dL (0.55-1.3)
[2021-01-29 11:27] LABS: BILIRUBIN,TOTAL 0.7 mg/dL (0.2-1)
[2021-01-29] MEDS ORDERED: INSULIN (NOVOLOG) ASPART 100 UNITS/ML 10ML VIAL ONE ×2 (11:36→17:28)
[2021-01-29] MEDS: hydrALAZINE HCL 50 MG TABLET (FP) PO SCH ×2 (13:49→22:10)
[2021-01-29] MEDS: ATORVASTATIN CA 40 MG TABLET (FP) PO SCH (22:10)
[2021-01-30] MEDS: ALBUTEROL SO4 2.5/IPRATROPIUM 0.5 INH SOL 3 ML VIAL.NEB. NEB PRN ×2 (00:42→10:10)
[2021-01-30] MEDS: INSULIN SLIDING SCALE (NOVOLOG) 1 VIAL SQ SCH ×4 (06:39→22:25)
[2021-01-30] MEDS: FUROSEMIDE 40 MG/4 ML INJECTABLE VIAL IVPUSH SCH ×2 (06:40→14:02)
[2021-01-30] MEDS: hydrALAZINE HCL 50 MG TABLET (FP) PO SCH (06:41)
[2021-01-30] MEDS: guaiFENesin/D-METHORPHAN HB 10 ML UNIT-DOSE CUPS PO PRN (06:51)
[2021-01-30 09:07] LABS: BASO % 0.3 % (0-2.0); EOS % 2.2 % (0-4.5); HEMATOCRIT 31.5 % (35.4-49); HEMOGLOBIN 10.1 GM/dL (11.7-16.9); LYMPH % 6.6 % (8-40); MCH 28.5 pg (25.7-33.7); MEAN CELL VOLUME 89.2 fl (80-96); MEAN PLT VOLUME 7.2 fl (7.5-11.1); NEUT % 81.9 % (42.8-82.8); PLATELET COUNT 459 10^3/uL (134-434); RBC 3.53 M/mm3 (4.00-5.60); RDW 18.2 % (11.9-15.9)
[2021-01-30] MEDS: NIFEdipine E.R 60 MG TABLET PO SCH (10:02)
[2021-01-30] MEDS: PANTOPRAZOLE SODIUM 40 MG VIAL IVPUSH SCH ×2 (10:02→21:27)
[2021-01-30] MEDS: ASPIRIN COATED 81 MG TABLET.EC PO SCH (10:03)
[2021-01-30] MEDS: TAMSULOSIN HCL 0.4 MG CAP PO SCH (10:03)
[2021-01-30] MEDS: SPIRONOLACTONE 25 MG TABLET PO SCH ×2 (10:03→22:19)
[2021-01-30] MEDS: CLOPIDOGREL BISULFATE 75 MG TABLET (FP) PO SCH (10:03)
[2021-01-30 10:23] LABS: ALBUMIN 2.8 g/dl (3.4-5.0); CALCIUM 8.8 mg/dL (8.5-10.1); MAGNESIUM 2.1 mg/dL (1.8-2.4)
[2021-01-30 10:26] LABS: CREATININE 1.7 mg/dL (0.55-1.3)
[2021-01-30 10:28] LABS: BILIRUBIN,TOTAL 0.5 mg/dL (0.2-1)
[2021-01-30] MEDS: BUDESONIDE/FORMETEROL FUMARATE 80/4.5 mcg INHALER IH SCH ×2 (10:53→22:18)
[2021-01-30] MEDS ORDERED: LABETALOL HCL 200 MG TABLET (FP) PO SCH (11:30)
[2021-01-30] MEDS ORDERED: LABETALOL HCL 100 MG TABLET (FP) ONE ×2 (12:20→21:20)
[2021-01-30] MEDS: methylPREDNISolone NA SUCC 40 MG/1 ML VIAL IVPUSH SCH ×3 (12:23→20:59)
[2021-01-30] MEDS ORDERED: CEFTRIAXONE 1 GM in DEXTROSE 5%-WATER - 50 ML IVPB SCH (12:45)
[2021-01-30] MEDS ORDERED: DEXTROSE 5%-WATER - 50 ML IVPB ONE (13:06)
[2021-01-30] MEDS ORDERED: cefTRIAXone SODIUM 1 GM VIAL ONE (13:06)
[2021-01-30] MEDS: hydrALAZINE HCL 25 MG TABLET (FP) PO SCH ×2 (14:02→22:19)
[2021-01-30] MEDS ORDERED: ACETAMINOPHEN 325 MG TABLET (FP) PO PRN (14:05)
[2021-01-30] MEDS ORDERED: CEFEPIME 1 GM in DEXTROSE 5%-WATER 100 ML IVPB SCH (16:45)
[2021-01-30] MEDS ORDERED: DEXTROSE 5%-WATER 100 ML IVPB ONE (20:57)
[2021-01-30] MEDS ORDERED: CEFEPIME HCL 1 GM VIAL (RESTRICTED TO ID) ONE (20:57)
[2021-01-30] MEDS: CEFEPIME 1 GM in DEXTROSE 5%-WATER 100 ML IVPB SCH (20:59)
[2021-01-30] MEDS ORDERED: INSULIN (NOVOLOG) ASPART 100 UNITS/ML 10ML VIAL ONE (21:20)
[2021-01-30] MEDS: ATORVASTATIN CA 40 MG TABLET (FP) PO SCH (22:19)
[2021-01-30] MEDS ORDERED: LABETALOL HCL 100 MG TABLET (FP) PO SCH (22:28)
[2021-01-30] MEDS: LABETALOL HCL 100 MG TABLET (FP) PO SCH (22:30)
[2021-01-31] MEDS ORDERED: DEXTROSE 5%-WATER 100 ML IVPB ONE ×3 (04:11→20:01)
[2021-01-31] MEDS ORDERED: CEFEPIME HCL 1 GM VIAL (RESTRICTED TO ID) ONE ×3 (04:11→20:01)
[2021-01-31] MEDS: methylPREDNISolone NA SUCC 40 MG/1 ML VIAL IVPUSH SCH ×4 (04:12→21:55)
[2021-01-31] MEDS: CEFEPIME 1 GM in DEXTROSE 5%-WATER 100 ML IVPB SCH ×3 (04:12→20:10)
[2021-01-31] MEDS: hydrALAZINE HCL 25 MG TABLET (FP) PO SCH ×3 (07:11→21:56)
[2021-01-31] MEDS: FUROSEMIDE 40 MG/4 ML INJECTABLE VIAL IVPUSH SCH (07:11)
[2021-01-31] MEDS: INSULIN SLIDING SCALE (NOVOLOG) 1 VIAL SQ SCH ×4 (07:21→21:51)
[2021-01-31] MEDS ORDERED: INSULIN (NOVOLOG) ASPART 100 UNITS/ML 10ML VIAL SQ ONE (07:30)
[2021-01-31] MEDS ORDERED: INSULIN (LEVEMIR) 100 UNITS/ML UNITS SQ SCH (07:45)
[2021-01-31] MEDS: TAMSULOSIN HCL 0.4 MG CAP PO SCH (09:04)
[2021-01-31] MEDS: PANTOPRAZOLE SODIUM 40 MG VIAL IVPUSH SCH ×2 (11:04→21:55)
[2021-01-31] MEDS: NIFEdipine E.R 60 MG TABLET PO SCH (11:06)
[2021-01-31] MEDS: LABETALOL HCL 100 MG TABLET (FP) PO SCH ×2 (11:06→21:55)
[2021-01-31] MEDS: CLOPIDOGREL BISULFATE 75 MG TABLET (FP) PO SCH (11:06)
[2021-01-31] MEDS: ASPIRIN COATED 81 MG TABLET.EC PO SCH (11:07)
[2021-01-31] MEDS: SPIRONOLACTONE 25 MG TABLET PO SCH ×2 (11:07→21:56)
[2021-01-31] MEDS: BUDESONIDE/FORMETEROL FUMARATE 80/4.5 mcg INHALER IH SCH ×2 (11:11→22:03)
[2021-01-31] MEDS: ALBUTEROL SO4 2.5/IPRATROPIUM 0.5 INH SOL 3 ML VIAL.NEB. NEB SCH ×2 (14:10→20:21)
[2021-01-31] MEDS: INSULIN (LEVEMIR) 100 UNITS/ML UNITS SQ SCH (21:51)
[2021-01-31] MEDS: ATORVASTATIN CA 40 MG TABLET (FP) PO SCH (21:56)
[2021-02-01] MEDS ORDERED: INSULIN (NOVOLOG) ASPART 100 UNITS/ML 10ML VIAL SQ STA (00:13)
[2021-02-01 02:05] LABS: CHLORIDE 97 mmol/L (98-107); SODIUM 127 mmol/L (136-145)
[2021-02-01 02:06] LABS: CALCIUM 8.7 mg/dL (8.5-10.1)
[2021-02-01 02:07] LABS: ANION GAP 13 MMOL/L (8-16); BLOOD UREA NITROGEN 46.5 mg/dL (7-18); CO2 18 mmol/L (21-32)
[2021-02-01 02:10] LABS: CREATININE 2.3 mg/dL (0.55-1.3)
[2021-02-01] MEDS ORDERED: CEFEPIME HCL 1 GM VIAL (RESTRICTED TO ID) ONE ×4 (02:15→17:02)
[2021-02-01] MEDS ORDERED: SODIUM CHLORIDE 100 ML IVPB ONE ×3 (02:16→17:02)
[2021-02-01 02:24] LABS: GLUCOSE,RANDOM 664 mg/dL (74-106)
[2021-02-01] MEDS ORDERED: INSULIN (NOVOLOG) ASPART 100 UNITS/ML 10ML VIAL SQ ONE (02:33)
[2021-02-01] MEDS: methylPREDNISolone NA SUCC 40 MG/1 ML VIAL IVPUSH SCH ×2 (02:53→09:18)
[2021-02-01] MEDS: CEFEPIME 1 GM in SODIUM CHLORIDE 100 ML IVPB SCH ×3 (02:54→17:29)
[2021-02-01] MEDS: hydrALAZINE HCL 25 MG TABLET (FP) PO SCH ×3 (06:05→21:31)
[2021-02-01] MEDS: INSULIN (LEVEMIR) 100 UNITS/ML UNITS SQ SCH ×2 (06:46→21:31)
[2021-02-01] MEDS: INSULIN SLIDING SCALE (NOVOLOG) 1 VIAL SQ SCH ×4 (06:47→21:44)
[2021-02-01] MEDS ORDERED: INSULIN (NOVOLOG) ASPART 100 UNITS/ML 10ML VIAL ONE (06:50)
[2021-02-01] MEDS: ALBUTEROL SO4 2.5/IPRATROPIUM 0.5 INH SOL 3 ML VIAL.NEB. NEB SCH ×3 (08:05→19:39)
[2021-02-01] MEDS: TAMSULOSIN HCL 0.4 MG CAP PO SCH (09:15)
[2021-02-01] MEDS: ASPIRIN COATED 81 MG TABLET.EC PO SCH (09:15)
[2021-02-01] MEDS: FUROSEMIDE 40 MG TABLET (FP) PO SCH (09:15)
[2021-02-01] MEDS: CLOPIDOGREL BISULFATE 75 MG TABLET (FP) PO SCH (09:15)
[2021-02-01] MEDS: NIFEdipine E.R 60 MG TABLET PO SCH (09:15)
[2021-02-01] MEDS: LABETALOL HCL 100 MG TABLET (FP) PO SCH ×2 (09:15→21:31)
[2021-02-01] MEDS: SPIRONOLACTONE 25 MG TABLET PO SCH ×2 (09:15→21:30)
[2021-02-01] MEDS: PANTOPRAZOLE SODIUM 40 MG VIAL IVPUSH SCH ×2 (09:19→21:32)
[2021-02-01] MEDS: BUDESONIDE/FORMETEROL FUMARATE 80/4.5 mcg INHALER IH SCH ×2 (09:27→21:43)
[2021-02-01] MEDS: predniSONE 20 MG TABLET (UD) PO SCH (21:31)
[2021-02-01] MEDS: ATORVASTATIN CA 40 MG TABLET (FP) PO SCH (21:31)
[2021-02-02] MEDS ORDERED: SODIUM CHLORIDE 100 ML IVPB ONE ×3 (00:54→17:17)
[2021-02-02] MEDS ORDERED: CEFEPIME HCL 1 GM VIAL (RESTRICTED TO ID) ONE ×3 (00:54→17:16)
[2021-02-02] MEDS: CEFEPIME 1 GM in SODIUM CHLORIDE 100 ML IVPB SCH ×3 (01:31→17:22)
[2021-02-02] MEDS: hydrALAZINE HCL 25 MG TABLET (FP) PO SCH ×3 (06:11→21:00)
[2021-02-02] MEDS: INSULIN (LEVEMIR) 100 UNITS/ML UNITS SQ SCH ×2 (06:12→21:08)
[2021-02-02] MEDS: INSULIN SLIDING SCALE (NOVOLOG) 1 VIAL SQ SCH ×4 (06:12→21:07)
[2021-02-02] MEDS: ALBUTEROL SO4 2.5/IPRATROPIUM 0.5 INH SOL 3 ML VIAL.NEB. NEB SCH ×3 (07:55→20:03)
[2021-02-02] MEDS: PANTOPRAZOLE SODIUM 40 MG VIAL IVPUSH SCH ×2 (09:50→21:01)
[2021-02-02] MEDS: SPIRONOLACTONE 25 MG TABLET PO SCH ×2 (09:50→21:00)
[2021-02-02] MEDS: LABETALOL HCL 100 MG TABLET (FP) PO SCH ×2 (09:51→21:00)
[2021-02-02] MEDS: predniSONE 20 MG TABLET (UD) PO SCH (09:51)
[2021-02-02] MEDS: ASPIRIN COATED 81 MG TABLET.EC PO SCH (09:51)
[2021-02-02] MEDS: CLOPIDOGREL BISULFATE 75 MG TABLET (FP) PO SCH (09:51)
[2021-02-02] MEDS: NIFEdipine E.R 60 MG TABLET PO SCH (09:51)
[2021-02-02] MEDS: FUROSEMIDE 40 MG TABLET (FP) PO SCH (09:51)
[2021-02-02] MEDS: TAMSULOSIN HCL 0.4 MG CAP PO SCH (09:51)
[2021-02-02] MEDS: BUDESONIDE/FORMETEROL FUMARATE 80/4.5 mcg INHALER IH SCH ×2 (10:00→21:08)
[2021-02-02] MEDS ORDERED: INSULIN (NOVOLOG) ASPART 100 UNITS/ML 10ML VIAL ONE ×2 (11:33→20:48)
[2021-02-02 15:44] LABS: CHLORIDE 98 mmol/L (98-107); SODIUM 130 mmol/L (136-145)
[2021-02-02 15:47] LABS: ALBUMIN 2.9 g/dl (3.4-5.0); ANION GAP 9 MMOL/L (8-16); BLOOD UREA NITROGEN 43.8 mg/dL (7-18); CO2 23 mmol/L (21-32); MAGNESIUM 2.7 mg/dL (1.8-2.4)
[2021-02-02 15:50] LABS: SGOT/AST 32 U/L (15-37); SGPT/ALT 67 U/L (13-61)
[2021-02-02 15:51] LABS: BASO % 0.1 % (0-2.0); BILIRUBIN,TOTAL 0.2 mg/dL (0.2-1); HEMATOCRIT 29.6 % (35.4-49); HEMOGLOBIN 9.2 GM/dL (11.7-16.9); LYMPH % 2.5 % (8-40); MCH 27.6 pg (25.7-33.7); MEAN CELL VOLUME 88.9 fl (80-96); MEAN PLT VOLUME 7.2 fl (7.5-11.1); NEUT % 92.4 % (42.8-82.8); PLATELET COUNT 531 10^3/uL (134-434); RBC 3.32 M/mm3 (4.00-5.60); TOT PROT 7.4 g/dl (6.4-8.2); WHITE BLOOD COUNT 15.4 K/mm3 (4.0-10.0)
[2021-02-02 15:53] LABS: ALK PHOS 209 U/L (45-117)
[2021-02-02 16:17] LABS: GLUCOSE,RANDOM 487 mg/dL (74-106)
[2021-02-02] MEDS ORDERED: Insulin (LOG) Aspart 100 UNITS/ML VIAL SQ ONE (16:22)
[2021-02-02] MEDS ORDERED: sitaGLIPtin PHOSPHATE 50 MG TABLET PO ONE (16:27)
[2021-02-02 17:23] LABS: ANISOCYTOSIS 2+; MACROCYTOSIS 0; PLATELET ESTIMATE INCREASED; TARGET CELLS 1+
[2021-02-02] MEDS: ATORVASTATIN CA 40 MG TABLET (FP) PO SCH (21:00)
[2021-02-03] MEDS: guaiFENesin/D-METHORPHAN HB 10 ML UNIT-DOSE CUPS PO PRN ×2 (00:19→09:25)
[2021-02-03] MEDS ORDERED: CEFEPIME HCL 1 GM VIAL (RESTRICTED TO ID) ONE ×3 (01:07→16:23)
[2021-02-03] MEDS ORDERED: SODIUM CHLORIDE 100 ML IVPB ONE ×2 (01:07→09:18)
[2021-02-03] MEDS: CEFEPIME 1 GM in SODIUM CHLORIDE 100 ML IVPB SCH ×3 (01:19→17:37)
[2021-02-03] MEDS ORDERED: INSULIN (NOVOLOG) ASPART 100 UNITS/ML 10ML VIAL ONE ×2 (06:23→21:36)
[2021-02-03] MEDS: hydrALAZINE HCL 25 MG TABLET (FP) PO SCH ×3 (06:25→21:54)
[2021-02-03] MEDS: sitaGLIPtin PHOSPHATE 50 MG TABLET PO SCH (06:25)
[2021-02-03] MEDS: INSULIN (LEVEMIR) 100 UNITS/ML UNITS SQ SCH ×2 (06:26→21:55)
[2021-02-03] MEDS: INSULIN SLIDING SCALE (NOVOLOG) 1 VIAL SQ SCH ×4 (06:31→21:55)
[2021-02-03] MEDS: ALBUTEROL SO4 2.5/IPRATROPIUM 0.5 INH SOL 3 ML VIAL.NEB. NEB SCH ×3 (07:49→20:18)
[2021-02-03] MEDS: SPIRONOLACTONE 25 MG TABLET PO SCH ×2 (09:25→21:55)
[2021-02-03] MEDS: TAMSULOSIN HCL 0.4 MG CAP PO SCH (09:25)
[2021-02-03] MEDS: PANTOPRAZOLE SODIUM 40 MG VIAL IVPUSH SCH ×2 (09:25→21:53)
[2021-02-03] MEDS: LABETALOL HCL 100 MG TABLET (FP) PO SCH ×2 (09:25→21:54)
[2021-02-03] MEDS: CLOPIDOGREL BISULFATE 75 MG TABLET (FP) PO SCH (09:25)
[2021-02-03] MEDS: NIFEdipine E.R 60 MG TABLET PO SCH (09:25)
[2021-02-03] MEDS: FUROSEMIDE 40 MG TABLET (FP) PO SCH (09:26)
[2021-02-03] MEDS: ASPIRIN COATED 81 MG TABLET.EC PO SCH (09:26)
[2021-02-03] MEDS: BUDESONIDE/FORMETEROL FUMARATE 80/4.5 mcg INHALER IH SCH ×2 (09:26→21:56)
[2021-02-03] MEDS ORDERED: predniSONE 20 MG TABLET (UD) PO SCH (10:00)
[2021-02-03] MEDS: guaiFENesin 600 MG TABLET.ER (FP) PO SCH ×2 (13:08→21:55)
[2021-02-03 14:26] VITALS: BMI 31.5
[2021-02-03] MEDS: methylPREDNISolone NA SUCC 40 MG/1 ML VIAL IVPUSH SCH ×2 (15:27→21:53)
[2021-02-03] MEDS: INSULIN (NOVOLOG MIX 70/30) 100 UNITS/ML MDV SQ SCH (16:24)
[2021-02-03] MEDS ORDERED: morphine SULFATE IMMEDIATE RELEASE 30 MG TAB PO ONE (17:24)
[2021-02-03 18:40] LABS: BASO % 0.2 % (0-2.0); EOS % 0.4 % (0-4.5); HEMATOCRIT 30.1 % (35.4-49); HEMOGLOBIN 9.6 GM/dL (11.7-16.9); LYMPH % 3.6 % (8-40); MCH 27.9 pg (25.7-33.7); MCHC 31.8 g/dl (32.0-35.9); MEAN CELL VOLUME 87.7 fl (80-96); MEAN PLT VOLUME 7.1 fl (7.5-11.1); MONO % 4.2 % (3.8-10.2); NEUT % 91.6 % (42.8-82.8); PLATELET COUNT 516 10^3/uL (134-434); RBC 3.43 M/mm3 (4.00-5.60); RDW 19.4 % (11.9-15.9); WHITE BLOOD COUNT 13.6 K/mm3 (4.0-10.0)
[2021-02-03 18:59] LABS: CHLORIDE 101 mmol/L (98-107); SODIUM 131 mmol/L (136-145)
[2021-02-03 19:02] LABS: ALBUMIN 2.8 g/dl (3.4-5.0); ANION GAP 7 MMOL/L (8-16); BLOOD UREA NITROGEN 43.6 mg/dL (7-18); CALCIUM 8.8 mg/dL (8.5-10.1); CO2 23 mmol/L (21-32); MAGNESIUM 2.4 mg/dL (1.8-2.4)
[2021-02-03 19:06] LABS: CREATININE 2.1 mg/dL (0.55-1.3); SGOT/AST 36 U/L (15-37); SGPT/ALT 78 U/L (13-61); TOT PROT 6.9 g/dl (6.4-8.2)
[2021-02-03 19:08] LABS: ALK PHOS 184 U/L (45-117); BILIRUBIN,TOTAL 0.2 mg/dL (0.2-1)
[2021-02-03 19:12] LABS: GLUCOSE,RANDOM 409 mg/dL (74-106)
[2021-02-03 19:40] LABS: ANISOCYTOSIS 1+; MACROCYTOSIS 1+; PLATELET ESTIMATE INCREASED
[2021-02-03] MEDS: ATORVASTATIN CA 40 MG TABLET (FP) PO SCH (21:55)
[2021-02-04] MEDS ORDERED: CEFEPIME HCL 1 GM VIAL (RESTRICTED TO ID) ONE ×3 (02:07→17:21)
[2021-02-04] MEDS ORDERED: SODIUM CHLORIDE 100 ML IVPB ONE ×3 (02:08→17:21)
[2021-02-04] MEDS: methylPREDNISolone NA SUCC 40 MG/1 ML VIAL IVPUSH SCH ×4 (02:12→21:46)
[2021-02-04] MEDS: CEFEPIME 1 GM in SODIUM CHLORIDE 100 ML IVPB SCH ×3 (02:12→17:28)
[2021-02-04] MEDS: sitaGLIPtin PHOSPHATE 50 MG TABLET PO SCH (06:21)
[2021-02-04] MEDS: hydrALAZINE HCL 25 MG TABLET (FP) PO SCH ×3 (06:21→21:40)
[2021-02-04] MEDS: INSULIN SLIDING SCALE (NOVOLOG) 1 VIAL SQ SCH ×4 (06:22→21:45)
[2021-02-04] MEDS: INSULIN (LEVEMIR) 100 UNITS/ML UNITS SQ SCH ×2 (06:22→21:45)
[2021-02-04] MEDS: INSULIN (NOVOLOG MIX 70/30) 100 UNITS/ML MDV SQ SCH ×2 (06:22→17:25)
[2021-02-04] MEDS: ALBUTEROL SO4 2.5/IPRATROPIUM 0.5 INH SOL 3 ML VIAL.NEB. NEB SCH ×3 (07:40→20:00)
[2021-02-04] MEDS: TAMSULOSIN HCL 0.4 MG CAP PO SCH (10:31)
[2021-02-04] MEDS: guaiFENesin 600 MG TABLET.ER (FP) PO SCH ×2 (10:31→21:40)
[2021-02-04] MEDS: CLOPIDOGREL BISULFATE 75 MG TABLET (FP) PO SCH (10:31)
[2021-02-04] MEDS: SPIRONOLACTONE 25 MG TABLET PO SCH (10:31)
[2021-02-04] MEDS: LABETALOL HCL 100 MG TABLET (FP) PO SCH (10:31)
[2021-02-04] MEDS: NIFEdipine E.R 60 MG TABLET PO SCH (10:32)
[2021-02-04] MEDS: PANTOPRAZOLE SODIUM 40 MG VIAL IVPUSH SCH (10:32)
[2021-02-04] MEDS: ASPIRIN COATED 81 MG TABLET.EC PO SCH (10:32)
[2021-02-04] MEDS: BUDESONIDE/FORMETEROL FUMARATE 80/4.5 mcg INHALER IH SCH ×2 (10:33→21:46)
[2021-02-04] MEDS: FUROSEMIDE 40 MG TABLET (FP) PO SCH (10:46)
[2021-02-04] MEDS: SODIUM ZIRCONIUM CYCLOSILICATE (LOKELMA) 10 GM PACKET PO SCH ×2 (14:16→22:14)
[2021-02-04] MEDS ORDERED: INSULIN (NOVOLOG) ASPART 100 UNITS/ML 10ML VIAL ONE (21:06)
[2021-02-04] MEDS ORDERED: LABETALOL HCL 100 MG TABLET (FP) ONE (21:18)
[2021-02-04] MEDS: LABETALOL HCL 200 MG TABLET (FP) PO SCH (21:40)
[2021-02-04] MEDS: ATORVASTATIN CA 40 MG TABLET (FP) PO SCH (21:40)
[2021-02-05] MEDS ORDERED: SODIUM CHLORIDE 100 ML IVPB ONE ×2 (01:15→10:05)
[2021-02-05] MEDS ORDERED: CEFEPIME HCL 1 GM VIAL (RESTRICTED TO ID) ONE ×3 (01:15→17:28)
[2021-02-05] MEDS: CEFEPIME 1 GM in SODIUM CHLORIDE 100 ML IVPB SCH ×3 (01:24→17:49)
[2021-02-05] MEDS: methylPREDNISolone NA SUCC 40 MG/1 ML VIAL IVPUSH SCH ×3 (02:37→22:03)
[2021-02-05] MEDS ORDERED: LABETALOL HCL 100 MG TABLET (FP) ONE (05:41)
[2021-02-05] MEDS: INSULIN (LEVEMIR) 100 UNITS/ML UNITS SQ SCH ×2 (06:43→21:59)
[2021-02-05] MEDS: sitaGLIPtin PHOSPHATE 50 MG TABLET PO SCH (06:43)
[2021-02-05] MEDS: INSULIN (NOVOLOG MIX 70/30) 100 UNITS/ML MDV SQ SCH ×2 (06:43→17:49)
[2021-02-05] MEDS: hydrALAZINE HCL 25 MG TABLET (FP) PO SCH (06:43)
[2021-02-05] MEDS: LABETALOL HCL 200 MG TABLET (FP) PO SCH ×2 (06:43→21:59)
[2021-02-05] MEDS: INSULIN SLIDING SCALE (NOVOLOG) 1 VIAL SQ SCH ×4 (06:44→22:00)
[2021-02-05] MEDS: ALBUTEROL SO4 2.5/IPRATROPIUM 0.5 INH SOL 3 ML VIAL.NEB. NEB SCH ×3 (08:58→20:20)
[2021-02-05] MEDS: guaiFENesin 600 MG TABLET.ER (FP) PO SCH ×2 (10:11→21:59)
[2021-02-05] MEDS: SPIRONOLACTONE 25 MG TABLET PO SCH (10:11)
[2021-02-05] MEDS: BUDESONIDE/FORMETEROL FUMARATE 80/4.5 mcg INHALER IH SCH ×2 (10:11→21:58)
[2021-02-05] MEDS: TAMSULOSIN HCL 0.4 MG CAP PO SCH (10:11)
[2021-02-05] MEDS: CLOPIDOGREL BISULFATE 75 MG TABLET (FP) PO SCH (10:11)
[2021-02-05] MEDS: ASPIRIN COATED 81 MG TABLET.EC PO SCH (10:11)
[2021-02-05] MEDS: NIFEdipine E.R 60 MG TABLET PO SCH (10:11)
[2021-02-05] MEDS: FUROSEMIDE 40 MG TABLET (FP) PO SCH (10:11)
[2021-02-05] MEDS: ISOSORBIDE MONONITRATE 60 MG TAB.SR.24H (FP) PO SCH (11:53)
[2021-02-05] MEDS: hydrALAZINE HCL 50 MG TABLET (FP) PO SCH ×2 (14:49→21:58)
[2021-02-05] MEDS: LIDOCAINE 5% TOPICAL PATCH TP SCH (17:49)
[2021-02-05] MEDS: ATORVASTATIN CA 40 MG TABLET (FP) PO SCH (21:59)
[2021-02-05] MEDS: LIDOCAINE PATCH REMOVAL MC SCH (22:11)
[2021-02-06] MEDS ORDERED: CEFEPIME HCL 1 GM VIAL (RESTRICTED TO ID) ONE ×3 (03:25→17:00)
[2021-02-06] MEDS ORDERED: SODIUM CHLORIDE 100 ML IVPB ONE ×3 (03:25→17:00)
[2021-02-06] MEDS: CEFEPIME 1 GM in SODIUM CHLORIDE 100 ML IVPB SCH ×4 (03:26→17:12)
[2021-02-06] MEDS: hydrALAZINE HCL 50 MG TABLET (FP) PO SCH ×3 (06:42→22:48)
[2021-02-06] MEDS: sitaGLIPtin PHOSPHATE 50 MG TABLET PO SCH (06:42)
[2021-02-06] MEDS: INSULIN (LEVEMIR) 100 UNITS/ML UNITS SQ SCH ×2 (06:43→23:11)
[2021-02-06] MEDS: INSULIN SLIDING SCALE (NOVOLOG) 1 VIAL SQ SCH ×4 (06:44→22:47)
[2021-02-06] MEDS: INSULIN (NOVOLOG MIX 70/30) 100 UNITS/ML MDV SQ SCH ×2 (06:45→17:05)
[2021-02-06] MEDS: ALBUTEROL SO4 2.5/IPRATROPIUM 0.5 INH SOL 3 ML VIAL.NEB. NEB SCH ×3 (08:47→20:27)
[2021-02-06] MEDS: TAMSULOSIN HCL 0.4 MG CAP PO SCH (09:40)
[2021-02-06] MEDS: SPIRONOLACTONE 25 MG TABLET PO SCH (09:40)
[2021-02-06] MEDS: ISOSORBIDE MONONITRATE 60 MG TAB.SR.24H (FP) PO SCH (09:41)
[2021-02-06] MEDS: NIFEdipine E.R 60 MG TABLET PO SCH (09:41)
[2021-02-06] MEDS: methylPREDNISolone NA SUCC 40 MG/1 ML VIAL IVPUSH SCH ×2 (09:41→22:50)
[2021-02-06] MEDS: ASPIRIN COATED 81 MG TABLET.EC PO SCH (09:41)
[2021-02-06] MEDS: LABETALOL HCL 200 MG TABLET (FP) PO SCH ×2 (09:41→22:48)
[2021-02-06] MEDS: FUROSEMIDE 40 MG TABLET (FP) PO SCH (09:41)
[2021-02-06] MEDS: BUDESONIDE/FORMETEROL FUMARATE 80/4.5 mcg INHALER IH SCH ×2 (09:41→22:51)
[2021-02-06] MEDS: guaiFENesin 600 MG TABLET.ER (FP) PO SCH ×2 (09:41→22:48)
[2021-02-06] MEDS: CLOPIDOGREL BISULFATE 75 MG TABLET (FP) PO SCH (09:41)
[2021-02-06] MEDS: LIDOCAINE 5% TOPICAL PATCH TP SCH (09:41)
[2021-02-06] MEDS: ATORVASTATIN CA 40 MG TABLET (FP) PO SCH (22:49)
[2021-02-06] MEDS: LIDOCAINE PATCH REMOVAL MC SCH (22:54)
[2021-02-06] MEDS ORDERED: INSULIN (LEVEMIR) 100 UNITS/ML UNITS SQ SCH (23:33)
[2021-02-07] MEDS: CEFEPIME 1 GM in SODIUM CHLORIDE 100 ML IVPB SCH (02:20)
[2021-02-07] MEDS: ALBUTEROL SO4 2.5/IPRATROPIUM 0.5 INH SOL 3 ML VIAL.NEB. NEB PRN (05:59)
[2021-02-07] MEDS: hydrALAZINE HCL 50 MG TABLET (FP) PO SCH (06:50)
[2021-02-07] MEDS: sitaGLIPtin PHOSPHATE 50 MG TABLET PO SCH (06:50)
[2021-02-07] MEDS: INSULIN SLIDING SCALE (NOVOLOG) 1 VIAL SQ SCH (06:51)
[2021-02-07] MEDS ORDERED: INSULIN (LEVEMIR) 100 UNITS/ML UNITS SQ SCH (07:00)
[2021-02-07] MEDS: ALBUTEROL SO4 2.5/IPRATROPIUM 0.5 INH SOL 3 ML VIAL.NEB. NEB SCH (07:36)
[2021-02-07 08:40] LABS: BASO % 0.1 % (0-2.0); EOS % 3.1 % (0-4.5); HEMATOCRIT 30.8 % (35.4-49); HEMOGLOBIN 9.8 GM/dL (11.7-16.9); LYMPH % 12.7 % (8-40); MCH 27.8 pg (25.7-33.7); MCHC 31.9 g/dl (32.0-35.9); MEAN CELL VOLUME 86.9 fl (80-96); MEAN PLT VOLUME 7.2 fl (7.5-11.1); NEUT % 76.1 % (42.8-82.8); PLATELET COUNT 593 10^3/uL (134-434); RBC 3.54 M/mm3 (4.00-5.60); RDW 19.3 % (11.9-15.9); WHITE BLOOD COUNT 16.8 K/mm3 (4.0-10.0)
[2021-02-07 09:03] LABS: ALBUMIN 2.9 g/dl (3.4-5.0); BLOOD UREA NITROGEN 36.3 mg/dL (7-18); CALCIUM 9.4 mg/dL (8.5-10.1); MAGNESIUM 2.6 mg/dL (1.8-2.4)
[2021-02-07 09:06] LABS: CREATININE 1.5 mg/dL (0.55-1.3)
[2021-02-07 09:08] LABS: BILIRUBIN,TOTAL 0.3 mg/dL (0.2-1); TOT PROT 6.8 g/dl (6.4-8.2)
[2021-02-07] MEDS: CLOPIDOGREL BISULFATE 75 MG TABLET (FP) PO SCH (09:20)
[2021-02-07] MEDS: FUROSEMIDE 40 MG TABLET (FP) PO SCH (09:20)
[2021-02-07] MEDS: ISOSORBIDE MONONITRATE 60 MG TAB.SR.24H (FP) PO SCH (09:20)
[2021-02-07] MEDS: ASPIRIN COATED 81 MG TABLET.EC PO SCH (09:20)
[2021-02-07] MEDS: SPIRONOLACTONE 25 MG TABLET PO SCH (09:20)
[2021-02-07] MEDS: LABETALOL HCL 200 MG TABLET (FP) PO SCH (09:20)
[2021-02-07] MEDS: guaiFENesin 600 MG TABLET.ER (FP) PO SCH (09:20)
[2021-02-07] MEDS: TAMSULOSIN HCL 0.4 MG CAP PO SCH (09:20)
[2021-02-07] MEDS: NIFEdipine E.R 60 MG TABLET PO SCH (09:21)
[2021-02-07] MEDS: LIDOCAINE 5% TOPICAL PATCH TP SCH (09:22)
[2021-02-07] MEDS: BUDESONIDE/FORMETEROL FUMARATE 80/4.5 mcg INHALER IH SCH (09:24)
[2021-02-07] MEDS ORDERED: predniSONE 20 MG TABLET (UD) PO SCH ×2 (10:00)
[2021-02-07 10:59] VITALS: BP 148/82; PULSE 88; TEMP 97.9
== END 2021-02-07 13:31 | disposition home or self-care (01) | DRG 194 ==
LOC: JER 11:04 → JERBED 13:31 → J6S 01-27 21:02
PROVIDERS: ADMIT Internal Medicine; ATTEND Nurse Practitioner Acute Care
DX: I13.0 Hypertensive heart and chronic kidney disease with heart failure and stage 1 through stage 4 chronic kidney disease, or unspecified chronic kidney disease (principal); I50.33 Acute on chronic diastolic (congestive) heart failure; N18.32 Chronic kidney disease, stage 3b; E11.22 Type 2 diabetes mellitus with diabetic chronic kidney disease; J44.9 Chronic obstructive pulmonary disease, unspecified; I25.10 Atherosclerotic heart disease of native coronary artery without angina pectoris; I71.4 Abdominal aortic aneurysm, without rupture; J96.00 Acute respiratory failure, unspecified whether with hypoxia or hypercapnia; N17.9 Acute kidney failure, unspecified; I16.1 Hypertensive emergency; E87.5 Hyperkalemia; E78.5 Hyperlipidemia, unspecified; E87.1 Hypo-osmolality and hyponatremia; Z95.5 Presence of coronary angioplasty implant and graft; F19.10 Other psychoactive substance abuse, uncomplicated; J44.1 Chronic obstructive pulmonary disease with (acute) exacerbation; D50.9 Iron deficiency anemia, unspecified; E11.65 Type 2 diabetes mellitus with hyperglycemia; D63.8 Anemia in other chronic diseases classified elsewhere; E11.51 Type 2 diabetes mellitus with diabetic peripheral angiopathy without gangrene; F14.10 Cocaine abuse, uncomplicated; K57.90 Diverticulosis of intestine, part unspecified, without perforation or abscess without bleeding; K21.9 Gastro-esophageal reflux disease without esophagitis; M54.50 Low back pain, unspecified; Z91.14 Patient's other noncompliance with medication regimen; Z86.73 Personal history of transient ischemic attack (TIA), and cerebral infarction without residual deficits
CPT/HCPCS: 36415; 36430; 71045-TC-FY; 71046-TC-FY; 76604; 80048; 80053; 80307; 81003; 82550; 82803; 82962; 83036; 83735; 83880; 84100; 84484; 85025; 85610; 85730; 86850; 86900; 86901; 86922; 87040; 87070; 87205; 87804; 93005; 93010; 93308; 94640; 99291; C9803; J0131; P9058; U0003; U0005

== ENCOUNTER 2021-03-27 20:20 | Inpatient (IN) | payer OTHER ==
[2021-03-27] MEDS ORDERED: NITROGLYCERIN SUBLINGUAL 1/150 0.4 MG TAB SL ONE ×2 (20:59→22:50)
[2021-03-27] MEDS ORDERED: ALBUTEROL SO4 2.5/IPRATROPIUM 0.5 INH SOL 3 ML VIAL.NEB. NEB ONE (21:10)
[2021-03-27 21:24] LABS: HEMATOCRIT 26.2 % (35.4-49); HEMOGLOBIN 8.4 GM/dL (11.7-16.9); MCH 28.2 pg (25.7-33.7); MCHC 32.1 g/dl (32.0-35.9); PLATELET COUNT 387 10^3/uL (134-434); RBC 2.98 M/mm3 (4.00-5.60); RDW 19.7 % (11.9-15.9); WHITE BLOOD COUNT 12.3 K/mm3 (4.0-10.0)
[2021-03-27 21:49] LABS: BLOOD UREA NITROGEN 27.8 mg/dL (7-18); CALCIUM 8.2 mg/dL (8.5-10.1)
[2021-03-27 21:50] LABS: ALBUMIN 2.9 g/dl (3.4-5.0)
[2021-03-27 21:53] LABS: CREATININE 1.6 mg/dL (0.55-1.3)
[2021-03-27 21:55] LABS: BILIRUBIN,TOTAL 0.6 mg/dL (0.2-1)
[2021-03-27 21:57] LABS: N-TERMINAL BNP 7055.6 pg/ml (5-125)
[2021-03-27 22:28] LABS: ANISOCYTOSIS 1+; MACROCYTOSIS 1+; PLATELET ESTIMATE NORMAL
[2021-03-27] MEDS ORDERED: FUROSEMIDE 40 MG/4 ML INJECTABLE VIAL IVPUSH ONE (22:28)
[2021-03-27] MEDS ORDERED: FUROSEMIDE 40 MG/4 ML INJECTABLE VIAL ONE (22:36)
[2021-03-27] MEDS ORDERED: LORazepam 2 MG/ML SDV VIAL IVPUSH ONE (22:43)
[2021-03-27] MEDS ORDERED: NITROGLYCERIN SUBLINGUAL 1/150 0.4 MG TAB ONE (22:51)
[2021-03-27 23:48] LABS: ARTERIAL BLD GAS O2 SATURATION 99.5 % (95-98); ARTERIAL BLOOD GAS BASE EXCESS -5.8 mmol/L (-2-2); ARTERIAL BLOOD GAS PO2 230.4 mmHg (80-100); ARTERIAL BLOOD GAS pH 7.362 (7.350-7.450)
[2021-03-28] MEDS ORDERED: ACETAMINOPHEN 325 MG TABLET (FP) PO PRN (00:46)
[2021-03-28] MEDS ORDERED: ALBUTEROL SO4 HFA INHALER IH PRN (01:01)
[2021-03-28] MEDS: NITROGLYCERIN 50MG/D5W 250ML 50 MG/250 ML ML IVPB SCH (01:46)
[2021-03-28] MEDS: HEPARIN NA (PORCINE) 5,000 UNITS/ML 1ML VIAL SQ SCH ×3 (06:19→22:07)
[2021-03-28] MEDS: FUROSEMIDE 40 MG/4 ML INJECTABLE VIAL IVPUSH SCH (06:19)
[2021-03-28] MEDS: INSULIN SLIDING SCALE (NOVOLOG) 1 VIAL SQ SCH ×4 (06:35→22:08)
[2021-03-28 08:09] LABS: INR 1.22 (0.83-1.09); PROTHROMBIN TIME (PATIENT) 14.1 SEC (9.7-13.0)
[2021-03-28 08:11] LABS: BASO % 0.6 % (0-2.0); EOS % 1.9 % (0-4.5); HEMATOCRIT 28.1 % (35.4-49); LYMPH % 8.6 % (8-40); MCH 28.7 pg (25.7-33.7); MCHC 32.2 g/dl (32.0-35.9); MEAN CELL VOLUME 89.3 fl (80-96); MEAN PLT VOLUME 7.2 fl (7.5-11.1); MONO % 10.2 % (3.8-10.2); NEUT % 78.7 % (42.8-82.8); PLATELET COUNT 393 10^3/uL (134-434); RBC 3.14 M/mm3 (4.00-5.60); RDW 19.2 % (11.9-15.9); WHITE BLOOD COUNT 9.6 K/mm3 (4.0-10.0)
[2021-03-28 08:14] LABS: EPI CELLS 2 /uL (0-25.1); HYALINE CASTS 1 /uL (0-3.1); URINE APPEARANCE CLEAR; URINE BACTERIA 1 /uL (0-1359); URINE BILIRUBIN NEGATIVE (NEGATIVE); URINE COLOR YELLOW; URINE GLUCOSE (UA) NEGATIVE (NEGATIVE); URINE KETONE NEGATIVE (NEGATIVE); URINE LEUK ESTERASE NEGATIVE (NEGATIVE); URINE NITRITE NEGATIVE (NEGATIVE); URINE PROTEIN 1+ (NEGATIVE); URINE RBC 1 /uL (0-23.9); URINE UROBILINOGEN 0.2 mg/dL (0.2-1.0); URINE WBC 1 /uL (0-25.8)
[2021-03-28 08:38] LABS: CALCIUM 8.7 mg/dL (8.5-10.1)
[2021-03-28 08:39] LABS: BLOOD UREA NITROGEN 32.2 mg/dL (7-18); MAGNESIUM 2.5 mg/dL (1.8-2.4)
[2021-03-28 08:42] LABS: CREATININE 1.9 mg/dL (0.55-1.3)
[2021-03-28 08:43] LABS: BILIRUBIN,TOTAL 0.9 mg/dL (0.2-1); TOT PROT 6.9 g/dl (6.4-8.2)
[2021-03-28] MEDS: CLOPIDOGREL BISULFATE 75 MG TABLET (FP) PO SCH (09:12)
[2021-03-28] MEDS: ASPIRIN COATED 81 MG TABLET.EC PO SCH (09:12)
[2021-03-28] MEDS: BUDESONIDE/FORMETEROL FUMARATE 80/4.5 mcg INHALER IH SCH ×2 (09:12→22:14)
[2021-03-28] MEDS: LABETALOL HCL 200 MG TABLET (FP) PO SCH ×2 (10:50→22:07)
[2021-03-28] MEDS: NIFEdipine E.R 60 MG TABLET PO SCH (11:27)
[2021-03-28] MEDS ORDERED: FUROSEMIDE 40 MG/4 ML INJECTABLE VIAL ONE (11:36)
[2021-03-28] MEDS ORDERED: ALBUTEROL SO4 0.083% IH SOL 2.5 MG/3 ML VIAL.NEB. NEB ONE (11:37)
[2021-03-28] MEDS ORDERED: FUROSEMIDE 40 MG/4 ML INJECTABLE VIAL IVPUSH ONE (12:00)
[2021-03-28] MEDS: ALBUTEROL SO4 0.083% IH SOL 2.5 MG/3 ML VIAL.NEB. NEB PRN ×2 (12:07→15:25)
[2021-03-28] MEDS: MUPIROCIN 2% TOPICAL OINTMENT FOR DECOLONIZATION NS SCH ×2 (12:31→22:08)
[2021-03-28] MEDS ORDERED: PATIENT'S OWN MEDICATION (NON-FORMULARY) (Hydralazine Hcl [Hydralazine Hcl] 100 MG Tablet) PO SCH (14:00)
[2021-03-28] MEDS: hydrALAZINE HCL 50 MG TABLET (FP) PO SCH (22:07)
[2021-03-28] MEDS: CHLORHEXIDINE GLUCONATE 4% CLEANSER FOR DECOLONIZATION TP SCH (22:07)
[2021-03-28] MEDS: ATORVASTATIN CA 80 MG TABLET (FP) PO SCH (22:07)
[2021-03-29] MEDS: NITROGLYCERIN 50MG/D5W 250ML 50 MG/250 ML ML IVPB SCH (06:29)
[2021-03-29] MEDS: HEPARIN NA (PORCINE) 5,000 UNITS/ML 1ML VIAL SQ SCH ×3 (06:30→23:48)
[2021-03-29] MEDS: INSULIN SLIDING SCALE (NOVOLOG) 1 VIAL SQ SCH ×4 (06:30→23:45)
[2021-03-29] MEDS: hydrALAZINE HCL 50 MG TABLET (FP) PO SCH ×3 (06:30→23:47)
[2021-03-29] MEDS: FUROSEMIDE 40 MG/4 ML INJECTABLE VIAL IVPUSH SCH (06:30)
[2021-03-29 07:17] LABS: BASO % 0.5 % (0-2.0); EOS % 2.5 % (0-4.5); HEMATOCRIT 26.6 % (35.4-49); HEMOGLOBIN 8.3 GM/dL (11.7-16.9); LYMPH % 12.5 % (8-40); MCH 28.2 pg (25.7-33.7); MCHC 31.2 g/dl (32.0-35.9); MEAN CELL VOLUME 90.4 fl (80-96); MEAN PLT VOLUME 7.5 fl (7.5-11.1); MONO % 6.9 % (3.8-10.2); NEUT % 77.6 % (42.8-82.8); PLATELET COUNT 376 10^3/uL (134-434); RBC 2.95 M/mm3 (4.00-5.60); WHITE BLOOD COUNT 10.4 K/mm3 (4.0-10.0)
[2021-03-29 07:44] LABS: ALBUMIN 2.8 g/dl (3.4-5.0); BLOOD UREA NITROGEN 44.7 mg/dL (7-18); CALCIUM 8.3 mg/dL (8.5-10.1); MAGNESIUM 2.4 mg/dL (1.8-2.4)
[2021-03-29 07:47] LABS: CREATININE 1.9 mg/dL (0.55-1.3); PHOSPHOROUS 3.8 mg/dL (2.5-4.9)
[2021-03-29 07:49] LABS: BILIRUBIN,TOTAL 0.6 mg/dL (0.2-1); TOT PROT 6.4 g/dl (6.4-8.2)
[2021-03-29] MEDS: ALBUTEROL SO4 0.083% IH SOL 2.5 MG/3 ML VIAL.NEB. NEB PRN (09:16)
[2021-03-29] MEDS ORDERED: SPIRONOLACTONE 25 MG TABLET PO SCH (10:00)
[2021-03-29] MEDS ORDERED: ISOSORBIDE MONONITRATE 60 MG TAB.SR.24H (FP) PO ONE (10:00)
[2021-03-29] MEDS: BUDESONIDE/FORMETEROL FUMARATE 80/4.5 mcg INHALER IH SCH ×2 (11:30→23:49)
[2021-03-29] MEDS: LABETALOL HCL 200 MG TABLET (FP) PO SCH ×2 (11:44→23:47)
[2021-03-29] MEDS: CLOPIDOGREL BISULFATE 75 MG TABLET (FP) PO SCH (11:44)
[2021-03-29] MEDS: NIFEdipine E.R 60 MG TABLET PO SCH (11:44)
[2021-03-29] MEDS: MUPIROCIN 2% TOPICAL OINTMENT FOR DECOLONIZATION NS SCH ×2 (11:44→23:48)
[2021-03-29] MEDS: ASPIRIN COATED 81 MG TABLET.EC PO SCH (11:44)
[2021-03-29] MEDS: ATORVASTATIN CA 80 MG TABLET (FP) PO SCH (23:47)
[2021-03-29] MEDS: CHLORHEXIDINE GLUCONATE 4% CLEANSER FOR DECOLONIZATION TP SCH (23:48)
[2021-03-30] MEDS ORDERED: ACETAMINOPHEN 325 MG TABLET (FP) PO PRN (03:35)
[2021-03-30] MEDS ORDERED: ALBUTEROL SO4 0.083% IH SOL 2.5 MG/3 ML VIAL.NEB. NEB PRN (03:35)
[2021-03-30] MEDS: HEPARIN NA (PORCINE) 5,000 UNITS/ML 1ML VIAL SQ SCH ×3 (05:40→21:35)
[2021-03-30] MEDS: hydrALAZINE HCL 50 MG TABLET (FP) PO SCH ×3 (05:40→21:33)
[2021-03-30] MEDS ORDERED: INSULIN (NOVOLOG) ASPART 100 UNITS/ML 10ML VIAL ONE (05:50)
[2021-03-30] MEDS: INSULIN SLIDING SCALE (NOVOLOG) 1 VIAL SQ SCH ×4 (06:41→21:38)
[2021-03-30 07:00] LABS: BASO % 0.8 % (0-2.0); EOS % 2.2 % (0-4.5); HEMATOCRIT 25.9 % (35.4-49); HEMOGLOBIN 8.3 GM/dL (11.7-16.9); LYMPH % 9.3 % (8-40); MCH 28.7 pg (25.7-33.7); MEAN CELL VOLUME 89.7 fl (80-96); MEAN PLT VOLUME 6.7 fl (7.5-11.1); MONO % 6.4 % (3.8-10.2); NEUT % 81.3 % (42.8-82.8); PLATELET COUNT 356 10^3/uL (134-434); RBC 2.88 M/mm3 (4.00-5.60); RDW 19.1 % (11.9-15.9); WHITE BLOOD COUNT 9.5 K/mm3 (4.0-10.0)
[2021-03-30] MEDS ORDERED: FUROSEMIDE 40 MG/4 ML INJECTABLE VIAL IVPUSH SCH (07:00)
[2021-03-30 07:27] LABS: CALCIUM 8.6 mg/dL (8.5-10.1)
[2021-03-30 07:28] LABS: ALBUMIN 2.7 g/dl (3.4-5.0); BLOOD UREA NITROGEN 39.2 mg/dL (7-18); MAGNESIUM 2.2 mg/dL (1.8-2.4)
[2021-03-30 07:31] LABS: PHOSPHOROUS 3.4 mg/dL (2.5-4.9)
[2021-03-30 07:32] LABS: BILIRUBIN,TOTAL 0.3 mg/dL (0.2-1)
[2021-03-30 07:33] LABS: TOT PROT 6.2 g/dl (6.4-8.2)
[2021-03-30] MEDS: CLOPIDOGREL BISULFATE 75 MG TABLET (FP) PO SCH (09:10)
[2021-03-30] MEDS: ASPIRIN COATED 81 MG TABLET.EC PO SCH (09:10)
[2021-03-30] MEDS: LABETALOL HCL 200 MG TABLET (FP) PO SCH ×2 (09:11→21:33)
[2021-03-30] MEDS: SPIRONOLACTONE 25 MG TABLET PO SCH (09:11)
[2021-03-30] MEDS: ISOSORBIDE MONONITRATE 60 MG TAB.SR.24H (FP) PO SCH (09:11)
[2021-03-30] MEDS: NIFEdipine E.R 60 MG TABLET PO SCH (09:12)
[2021-03-30] MEDS: BUDESONIDE/FORMETEROL FUMARATE 80/4.5 mcg INHALER IH SCH ×2 (09:15→21:39)
[2021-03-30] MEDS: FUROSEMIDE 40 MG/4 ML INJECTABLE VIAL IVPUSH SCH (13:46)
[2021-03-30] MEDS: ATORVASTATIN CA 80 MG TABLET (FP) PO SCH (21:33)
[2021-03-31] MEDS: hydrALAZINE HCL 50 MG TABLET (FP) PO SCH ×3 (06:36→21:20)
[2021-03-31] MEDS: FUROSEMIDE 40 MG/4 ML INJECTABLE VIAL IVPUSH SCH ×2 (06:36→14:10)
[2021-03-31] MEDS: HEPARIN NA (PORCINE) 5,000 UNITS/ML 1ML VIAL SQ SCH ×3 (06:36→21:21)
[2021-03-31] MEDS: INSULIN SLIDING SCALE (NOVOLOG) 1 VIAL SQ SCH ×4 (06:37→21:21)
[2021-03-31 07:35] LABS: EOS % 2.1 % (0-4.5); HEMATOCRIT 28.6 % (35.4-49); LYMPH % 10.5 % (8-40); MCH 28.5 pg (25.7-33.7); MCHC 31.4 g/dl (32.0-35.9); MEAN CELL VOLUME 90.8 fl (80-96); MEAN PLT VOLUME 7.2 fl (7.5-11.1); MONO % 7.9 % (3.8-10.2); NEUT % 78.5 % (42.8-82.8); PLATELET COUNT 422 10^3/uL (134-434); RBC 3.15 M/mm3 (4.00-5.60); RDW 19.2 % (11.9-15.9); WHITE BLOOD COUNT 9.1 K/mm3 (4.0-10.0)
[2021-03-31 08:06] LABS: BLOOD UREA NITROGEN 38.8 mg/dL (7-18); MAGNESIUM 2.3 mg/dL (1.8-2.4)
[2021-03-31 08:10] LABS: CREATININE 1.9 mg/dL (0.55-1.3)
[2021-03-31 08:11] LABS: BILIRUBIN,TOTAL 0.4 mg/dL (0.2-1)
[2021-03-31 08:12] LABS: TOT PROT 6.7 g/dl (6.4-8.2)
[2021-03-31] MEDS: CLOPIDOGREL BISULFATE 75 MG TABLET (FP) PO SCH (09:38)
[2021-03-31] MEDS: NIFEdipine E.R 60 MG TABLET PO SCH (09:39)
[2021-03-31] MEDS: LABETALOL HCL 200 MG TABLET (FP) PO SCH ×2 (09:40→21:20)
[2021-03-31] MEDS: SPIRONOLACTONE 25 MG TABLET PO SCH (09:40)
[2021-03-31] MEDS: ISOSORBIDE MONONITRATE 60 MG TAB.SR.24H (FP) PO SCH (09:40)
[2021-03-31] MEDS: ASPIRIN COATED 81 MG TABLET.EC PO SCH (09:40)
[2021-03-31] MEDS: BUDESONIDE/FORMETEROL FUMARATE 80/4.5 mcg INHALER IH SCH ×2 (09:44→21:27)
[2021-03-31] MEDS: MINERAL OIL/PET HY-PHL TOPICAL OINTMENT 454 GM JAR TP SCH (11:20)
[2021-03-31] MEDS: ATORVASTATIN CA 80 MG TABLET (FP) PO SCH (21:21)
[2021-04-01] MEDS: hydrALAZINE HCL 50 MG TABLET (FP) PO SCH ×3 (06:13→21:22)
[2021-04-01] MEDS: FUROSEMIDE 40 MG/4 ML INJECTABLE VIAL IVPUSH SCH ×2 (06:13→14:01)
[2021-04-01] MEDS: HEPARIN NA (PORCINE) 5,000 UNITS/ML 1ML VIAL SQ SCH ×3 (06:13→21:22)
[2021-04-01] MEDS: INSULIN SLIDING SCALE (NOVOLOG) 1 VIAL SQ SCH ×4 (06:15→21:22)
[2021-04-01 08:34] LABS: BASO % 0.6 % (0-2.0); EOS % 2.3 % (0-4.5); HEMATOCRIT 27.7 % (35.4-49); LYMPH % 11.5 % (8-40); MCH 29.1 pg (25.7-33.7); MCHC 32.4 g/dl (32.0-35.9); MEAN CELL VOLUME 89.8 fl (80-96); MONO % 9.2 % (3.8-10.2); NEUT % 76.4 % (42.8-82.8); PLATELET COUNT 436 10^3/uL (134-434); RBC 3.08 M/mm3 (4.00-5.60); RDW 18.6 % (11.9-15.9)
[2021-04-01 08:57] LABS: ALBUMIN 3.1 g/dl (3.4-5.0); BLOOD UREA NITROGEN 37.1 mg/dL (7-18); CALCIUM 9.6 mg/dL (8.5-10.1); MAGNESIUM 2.3 mg/dL (1.8-2.4)
[2021-04-01 08:59] LABS: CREATININE 1.9 mg/dL (0.55-1.3)
[2021-04-01 09:02] LABS: BILIRUBIN,TOTAL 0.5 mg/dL (0.2-1)
[2021-04-01] MEDS: SPIRONOLACTONE 25 MG TABLET PO SCH (09:45)
[2021-04-01] MEDS: ASPIRIN COATED 81 MG TABLET.EC PO SCH (09:45)
[2021-04-01] MEDS: CLOPIDOGREL BISULFATE 75 MG TABLET (FP) PO SCH (09:45)
[2021-04-01] MEDS: ISOSORBIDE MONONITRATE 60 MG TAB.SR.24H (FP) PO SCH (09:45)
[2021-04-01] MEDS: LABETALOL HCL 200 MG TABLET (FP) PO SCH ×2 (09:45→21:22)
[2021-04-01] MEDS: NIFEdipine E.R 60 MG TABLET PO SCH (09:47)
[2021-04-01] MEDS: MINERAL OIL/PET HY-PHL TOPICAL OINTMENT 454 GM JAR TP SCH (09:47)
[2021-04-01] MEDS: BUDESONIDE/FORMETEROL FUMARATE 80/4.5 mcg INHALER IH SCH ×2 (09:47→21:27)
[2021-04-01] MEDS: AMOX TR/POT CLAV 500MG/125MG TABLETS (FP) PO SCH (18:44)
[2021-04-01] MEDS: ATORVASTATIN CA 80 MG TABLET (FP) PO SCH (21:22)
[2021-04-02] MEDS: hydrALAZINE HCL 50 MG TABLET (FP) PO SCH ×2 (05:11→14:20)
[2021-04-02] MEDS: FUROSEMIDE 40 MG/4 ML INJECTABLE VIAL IVPUSH SCH (05:11)
[2021-04-02] MEDS: HEPARIN NA (PORCINE) 5,000 UNITS/ML 1ML VIAL SQ SCH ×2 (05:16→14:20)
[2021-04-02] MEDS: INSULIN SLIDING SCALE (NOVOLOG) 1 VIAL SQ SCH ×2 (06:15→11:48)
[2021-04-02 07:37] LABS: BASO % 0.5 % (0-2.0); EOS % 2.8 % (0-4.5); HEMATOCRIT 28.4 % (35.4-49); LYMPH % 12.5 % (8-40); MCH 28.3 pg (25.7-33.7); MCHC 31.7 g/dl (32.0-35.9); MEAN CELL VOLUME 89.1 fl (80-96); MEAN PLT VOLUME 7.3 fl (7.5-11.1); MONO % 9.2 % (3.8-10.2); PLATELET COUNT 462 10^3/uL (134-434); RBC 3.19 M/mm3 (4.00-5.60); RDW 18.8 % (11.9-15.9)
[2021-04-02 08:05] LABS: BLOOD UREA NITROGEN 38.1 mg/dL (7-18); CALCIUM 9.1 mg/dL (8.5-10.1)
[2021-04-02 08:06] LABS: MAGNESIUM 2.1 mg/dL (1.8-2.4)
[2021-04-02 08:07] LABS: CREATININE 1.7 mg/dL (0.55-1.3)
[2021-04-02 08:09] LABS: BILIRUBIN,TOTAL 0.5 mg/dL (0.2-1); TOT PROT 6.9 g/dl (6.4-8.2)
[2021-04-02] MEDS: AMOX TR/POT CLAV 500MG/125MG TABLETS (FP) PO SCH (10:54)
[2021-04-02] MEDS: SPIRONOLACTONE 25 MG TABLET PO SCH (10:54)
[2021-04-02] MEDS: ISOSORBIDE MONONITRATE 60 MG TAB.SR.24H (FP) PO SCH (10:55)
[2021-04-02] MEDS: LABETALOL HCL 200 MG TABLET (FP) PO SCH (10:55)
[2021-04-02] MEDS: ASPIRIN COATED 81 MG TABLET.EC PO SCH (10:55)
[2021-04-02] MEDS: CLOPIDOGREL BISULFATE 75 MG TABLET (FP) PO SCH (10:55)
[2021-04-02] MEDS: NIFEdipine E.R 60 MG TABLET PO SCH (10:56)
[2021-04-02] MEDS: BUDESONIDE/FORMETEROL FUMARATE 80/4.5 mcg INHALER IH SCH (10:58)
[2021-04-02] MEDS: MINERAL OIL/PET HY-PHL TOPICAL OINTMENT 454 GM JAR TP SCH (11:50)
[2021-04-02 12:44] VITALS: BMI 32.9
[2021-04-02] MEDS ORDERED: FUROSEMIDE 40 MG TABLET (FP) PO SCH (14:00)
[2021-04-02 15:58] VITALS: BP 151/90; PULSE 83; TEMP 97.9
== END 2021-04-02 17:32 | disposition home or self-care (01) | DRG 194 ==
LOC: JER 20:20 → JERBED 21:24 → JICU 03-28 02:35 → J4W 03-29 21:01
PROVIDERS: ADMIT Internal Medicine Pulmonary Disease; ATTEND Nurse Practitioner Acute Care
DX: I13.0 Hypertensive heart and chronic kidney disease with heart failure and stage 1 through stage 4 chronic kidney disease, or unspecified chronic kidney disease (principal); J96.21 Acute and chronic respiratory failure with hypoxia; I42.0 Dilated cardiomyopathy; E87.5 Hyperkalemia; F14.10 Cocaine abuse, uncomplicated; F19.10 Other psychoactive substance abuse, uncomplicated; I16.0 Hypertensive urgency; N18.30 Chronic kidney disease, stage 3 unspecified; N39.0 Urinary tract infection, site not specified; I50.33 Acute on chronic diastolic (congestive) heart failure; Z91.14 Patient's other noncompliance with medication regimen; I16.1 Hypertensive emergency; E11.9 Type 2 diabetes mellitus without complications; Z98.61 Coronary angioplasty status; I25.119 Atherosclerotic heart disease of native coronary artery with unspecified angina pectoris; F17.210 Nicotine dependence, cigarettes, uncomplicated; E78.5 Hyperlipidemia, unspecified
CPT/HCPCS: 36415; 36600; 71045-TC-FY; 80053; 81003; 82803; 82962; 83036; 83735; 83880; 84100; 84484; 85025; 85610; 87086; 87186; 93005; 93010; 93308; 94640; 94660; 94761; 99291; C9803; J1644; U0003; U0005

== ENCOUNTER 2021-04-08 14:44 | Inpatient (IN) | payer OTHER ==
[2021-04-08] MEDS ORDERED: HYDROCORTISONE SOD SUCCINATE 100 MG/2 ML VIAL IVPUSH ONE (15:25)
[2021-04-08] MEDS ORDERED: MAGNESIUM SULF 50% (8.12 MEQ/2 ML-1 GM VIAL) IVPB ONE (15:25)
[2021-04-08] MEDS ORDERED: ALBUTEROL SO4 2.5/IPRATROPIUM 0.5 INH SOL 3 ML VIAL.NEB. NEB ONE ×2 (15:28→19:29)
[2021-04-08] MEDS: ALBUTEROL SO4 2.5/IPRATROPIUM 0.5 INH SOL 3 ML VIAL.NEB. NEB SCH ×3 (15:58→19:36)
[2021-04-08] MEDS ORDERED: ALBUTEROL SO4 0.083% IH SOL 2.5 MG/3 ML VIAL.NEB. NEB ONE ×2 (16:25→19:29)
[2021-04-08] MEDS ORDERED: MAGNESIUM SULFATE IN WATER 2 GM/50 ML IVPB IVPB ONE (16:25)
[2021-04-08] MEDS ORDERED: methylPREDNISolone NA SUCC 125 MG/2 ML VIAL IVPB ONE (16:26)
[2021-04-08] MEDS: ALBUTEROL SO4 0.083% IH SOL 2.5 MG/3 ML VIAL.NEB. NEB SCH ×3 (16:29→19:36)
[2021-04-08 16:59] LABS: BASO % 0.7 % (0-2.0); EOS % 0.4 % (0-4.5); HEMATOCRIT 29.7 % (35.4-49); HEMOGLOBIN 9.5 GM/dL (11.7-16.9); MCH 28.4 pg (25.7-33.7); MCHC 32.2 g/dl (32.0-35.9); MEAN CELL VOLUME 88.5 fl (80-96); MEAN PLT VOLUME 6.9 fl (7.5-11.1); MONO % 9.9 % (3.8-10.2); PLATELET COUNT 465 10^3/uL (134-434); RBC 3.36 M/mm3 (4.00-5.60); RDW 18.3 % (11.9-15.9); WHITE BLOOD COUNT 13.9 K/mm3 (4.0-10.0)
[2021-04-08 17:13] LABS: CALCIUM 9.3 mg/dL (8.5-10.1)
[2021-04-08 17:14] LABS: ALBUMIN 3.4 g/dl (3.4-5.0); BLOOD UREA NITROGEN 19.1 mg/dL (7-18)
[2021-04-08 17:18] LABS: CREATININE 1.5 mg/dL (0.55-1.3); TOT PROT 7.7 g/dl (6.4-8.2)
[2021-04-08] MEDS ORDERED: methylPREDNISolone NA SUCC 125 MG/2 ML VIAL ONE (17:18)
[2021-04-08 17:19] LABS: BILIRUBIN,TOTAL 0.9 mg/dL (0.2-1)
[2021-04-08] MEDS ORDERED: hydrALAZINE HCL 20 MG/ML VIAL IVPUSH ONE (17:55)
[2021-04-08] MEDS ORDERED: ALBUTEROL SO4 HFA INHALER IH PRN (18:31)
[2021-04-08] MEDS ORDERED: hydrALAZINE HCL 20 MG/ML VIAL ONE (18:35)
[2021-04-08 20:02] LABS: EPI CELLS 12 /uL (0-25.1); HYALINE CASTS 5 /uL (0-3.1); URINE APPEARANCE CLEAR; URINE BACTERIA 4 /uL (0-1359); URINE BILIRUBIN NEGATIVE (NEGATIVE); URINE COLOR YELLOW; URINE GLUCOSE (UA) NEGATIVE (NEGATIVE); URINE KETONE NEGATIVE (NEGATIVE); URINE LEUK ESTERASE NEGATIVE (NEGATIVE); URINE NITRITE NEGATIVE (NEGATIVE); URINE PROTEIN 3+ (NEGATIVE); URINE RBC 11 /uL (0-23.9); URINE UROBILINOGEN 0.2 mg/dL (0.2-1.0); URINE WBC 5 /uL (0-25.8)
[2021-04-08 21:10] LABS: METHADONE, UR NEGATIVE (NEGATIVE); PHENCYCLIDINE,URINE NEGATIVE (NEGATIVE); URINE BENZODIAZEPINES NEGATIVE (NEGATIVE)
[2021-04-08 21:11] LABS: OPIATES, URI NEGATIVE (NEGATIVE); URINE AMPHETAMINES NEGATIVE (NEGATIVE); URINE BARBITURATES NEGATIVE (NEGATIVE)
[2021-04-08 21:23] LABS: COCAINE, UR POSITIVE (NEGATIVE)
[2021-04-08] MEDS: HEPARIN NA (PORCINE) 5,000 UNITS/ML 1ML VIAL SQ SCH (23:07)
[2021-04-08] MEDS: hydrALAZINE HCL 50 MG TABLET (FP) PO SCH (23:08)
[2021-04-08] MEDS: ATORVASTATIN CA 80 MG TABLET (FP) PO SCH (23:08)
[2021-04-08] MEDS: LABETALOL HCL 200 MG TABLET (FP) PO SCH (23:08)
[2021-04-09] MEDS: INSULIN SLIDING SCALE (NOVOLOG) 1 VIAL SQ SCH ×5 (00:54→21:16)
[2021-04-09 05:06] VITALS: BMI 33.0
[2021-04-09] MEDS: BUDESONIDE/FORMETEROL FUMARATE 80/4.5 mcg INHALER IH SCH ×3 (05:43→21:17)
[2021-04-09] MEDS: hydrALAZINE HCL 50 MG TABLET (FP) PO SCH ×3 (05:46→21:12)
[2021-04-09] MEDS: FUROSEMIDE 40 MG TABLET (FP) PO SCH ×2 (05:47→15:42)
[2021-04-09] MEDS: HEPARIN NA (PORCINE) 5,000 UNITS/ML 1ML VIAL SQ SCH ×3 (05:47→21:12)
[2021-04-09 09:36] LABS: HEMATOCRIT 28.4 % (35.4-49); HEMOGLOBIN 8.8 GM/dL (11.7-16.9); MCH 28.3 pg (25.7-33.7); MCHC 31.1 g/dl (32.0-35.9); MEAN CELL VOLUME 91.1 fl (80-96); MEAN PLT VOLUME 7.5 fl (7.5-11.1); PLATELET COUNT 370 10^3/uL (134-434); RBC 3.11 M/mm3 (4.00-5.60); RDW 18.2 % (11.9-15.9); WHITE BLOOD COUNT 9.8 K/mm3 (4.0-10.0)
[2021-04-09 09:54] LABS: CHLORIDE 102 mmol/L (98-107); SODIUM 131 mmol/L (136-145)
[2021-04-09 10:01] LABS: ANION GAP 9 MMOL/L (8-16); BLOOD UREA NITROGEN 34.5 mg/dL (7-18); CO2 19 mmol/L (21-32); MAGNESIUM 2.7 mg/dL (1.8-2.4)
[2021-04-09 10:03] LABS: CALCIUM 8.1 mg/dL (8.5-10.1)
[2021-04-09 10:04] LABS: ALBUMIN 2.9 g/dl (3.4-5.0); CREATININE 1.9 mg/dL (0.55-1.3); SGOT/AST 24 U/L (15-37); SGPT/ALT 56 U/L (13-61)
[2021-04-09 10:05] LABS: BILIRUBIN,TOTAL 0.8 mg/dL (0.2-1); TOT PROT 7.2 g/dl (6.4-8.2)
[2021-04-09 10:06] LABS: ALK PHOS 178 U/L (45-117)
[2021-04-09 10:11] LABS: GLUCOSE,RANDOM 449 mg/dL (74-106)
[2021-04-09] MEDS: ASPIRIN COATED 81 MG TABLET.EC PO SCH (11:17)
[2021-04-09] MEDS: ISOSORBIDE MONONITRATE 60 MG TAB.SR.24H (FP) PO SCH (11:17)
[2021-04-09] MEDS: NIFEdipine E.R 60 MG TABLET PO SCH (11:17)
[2021-04-09] MEDS: CLOPIDOGREL BISULFATE 75 MG TABLET (FP) PO SCH (11:17)
[2021-04-09] MEDS: SPIRONOLACTONE 25 MG TABLET PO SCH (11:17)
[2021-04-09] MEDS: LABETALOL HCL 200 MG TABLET (FP) PO SCH ×2 (11:18→21:18)
[2021-04-09] MEDS: methylPREDNISolone NA SUCC 40 MG/1 ML VIAL IVPUSH SCH ×2 (13:00→21:12)
[2021-04-09] MEDS: INSULIN (LEVEMIR) 100 UNITS/ML UNITS SQ SCH (21:12)
[2021-04-09] MEDS: ATORVASTATIN CA 80 MG TABLET (FP) PO SCH (21:14)
[2021-04-09 23:07] LABS: GLUCOSE,RANDOM 533 mg/dL (74-106)
[2021-04-10] MEDS: methylPREDNISolone NA SUCC 40 MG/1 ML VIAL IVPUSH SCH ×3 (03:16→17:48)
[2021-04-10] MEDS: HEPARIN NA (PORCINE) 5,000 UNITS/ML 1ML VIAL SQ SCH ×3 (07:18→21:53)
[2021-04-10] MEDS: hydrALAZINE HCL 50 MG TABLET (FP) PO SCH ×3 (07:18→21:53)
[2021-04-10] MEDS: FUROSEMIDE 40 MG TABLET (FP) PO SCH ×2 (07:18→14:20)
[2021-04-10] MEDS: INSULIN (LEVEMIR) 100 UNITS/ML UNITS SQ SCH ×3 (07:19→21:44)
[2021-04-10] MEDS: INSULIN SLIDING SCALE (NOVOLOG) 1 VIAL SQ SCH ×4 (07:19→21:55)
[2021-04-10 08:53] LABS: HEMATOCRIT 26.4 % (35.4-49); HEMOGLOBIN 8.4 GM/dL (11.7-16.9); MCH 28.8 pg (25.7-33.7); MCHC 31.9 g/dl (32.0-35.9); MEAN CELL VOLUME 90.2 fl (80-96); MEAN PLT VOLUME 7.3 fl (7.5-11.1); PLATELET COUNT 378 10^3/uL (134-434); RBC 2.92 M/mm3 (4.00-5.60); RDW 18.2 % (11.9-15.9); WHITE BLOOD COUNT 14.5 K/mm3 (4.0-10.0)
[2021-04-10 09:15] LABS: CHLORIDE 100 mmol/L (98-107); SODIUM 128 mmol/L (136-145)
[2021-04-10 09:34] LABS: ANION GAP 9 MMOL/L (8-16); BLOOD UREA NITROGEN 44.1 mg/dL (7-18); CALCIUM 8.4 mg/dL (8.5-10.1); CO2 19 mmol/L (21-32); MAGNESIUM 2.7 mg/dL (1.8-2.4)
[2021-04-10 09:37] LABS: SGOT/AST 16 U/L (15-37); SGPT/ALT 49 U/L (13-61)
[2021-04-10 09:39] LABS: BILIRUBIN,TOTAL 0.7 mg/dL (0.2-1); TOT PROT 7.1 g/dl (6.4-8.2)
[2021-04-10 09:40] LABS: ALK PHOS 176 U/L (45-117)
[2021-04-10 09:41] LABS: GLUCOSE,RANDOM 502 mg/dL (74-106)
[2021-04-10] MEDS: ASPIRIN COATED 81 MG TABLET.EC PO SCH (10:37)
[2021-04-10] MEDS: CLOPIDOGREL BISULFATE 75 MG TABLET (FP) PO SCH (10:37)
[2021-04-10] MEDS: NIFEdipine E.R 60 MG TABLET PO SCH (10:37)
[2021-04-10] MEDS: glipiZIDE-XL 2.5 MG TAB.ER.24 PO SCH (10:37)
[2021-04-10] MEDS: ISOSORBIDE MONONITRATE 60 MG TAB.SR.24H (FP) PO SCH (10:37)
[2021-04-10] MEDS: LABETALOL HCL 200 MG TABLET (FP) PO SCH ×2 (10:37→21:54)
[2021-04-10] MEDS: BUDESONIDE/FORMETEROL FUMARATE 80/4.5 mcg INHALER IH SCH ×2 (10:53→22:00)
[2021-04-10] MEDS: SODIUM ZIRCONIUM CYCLOSILICATE (LOKELMA) 5 GM PACKET PO SCH (11:18)
[2021-04-10] MEDS: SPIRONOLACTONE 25 MG TABLET PO SCH (11:46)
[2021-04-10] MEDS ORDERED: SODIUM CHLORIDE 1,000 ML IV STA (12:58)
[2021-04-10 13:07] LABS: ANISOCYTOSIS 0; HELMET CELLS 0; HOWELL-JOLLY BODIES 0; MACROCYTOSIS 0; OVALOCYTE 0; ROULEAU 0; SICKELED CELLS 0; TARGET CELLS 0; TEAR DROP CELLS 0; TOXIC GRANULATION 0
[2021-04-10 15:54] LABS: CHLORIDE 99 mmol/L (98-107); SODIUM 125 mmol/L (136-145)
[2021-04-10 16:00] LABS: CALCIUM 8.7 mg/dL (8.5-10.1)
[2021-04-10 16:01] LABS: ANION GAP 6 MMOL/L (8-16); BLOOD UREA NITROGEN 44.5 mg/dL (7-18); CO2 20 mmol/L (21-32)
[2021-04-10 16:06] LABS: CREATININE 1.6 mg/dL (0.55-1.3); GLUCOSE,RANDOM 571 mg/dL (74-106)
[2021-04-10] MEDS: metFORMIN HCL 500 MG TABLET (FP) PO SCH (17:47)
[2021-04-10] MEDS: PANTOPRAZOLE 40 MG TABLET PO SCH (17:47)
[2021-04-10] MEDS: INSULIN (NOVOLOG MIX 70/30) 100 UNITS/ML MDV SQ SCH (17:48)
[2021-04-10] MEDS: ATORVASTATIN CA 80 MG TABLET (FP) PO SCH (21:54)
[2021-04-11] MEDS: methylPREDNISolone NA SUCC 40 MG/1 ML VIAL IVPUSH SCH ×2 (01:12→11:15)
[2021-04-11] MEDS: metFORMIN HCL 500 MG TABLET (FP) PO SCH ×2 (06:17→16:02)
[2021-04-11] MEDS: HEPARIN NA (PORCINE) 5,000 UNITS/ML 1ML VIAL SQ SCH ×2 (06:17→14:04)
[2021-04-11] MEDS: hydrALAZINE HCL 50 MG TABLET (FP) PO SCH ×2 (06:17→14:04)
[2021-04-11] MEDS: FUROSEMIDE 40 MG TABLET (FP) PO SCH ×2 (06:17→14:04)
[2021-04-11] MEDS: INSULIN (NOVOLOG MIX 70/30) 100 UNITS/ML MDV SQ SCH ×2 (06:18→16:01)
[2021-04-11] MEDS: INSULIN SLIDING SCALE (NOVOLOG) 1 VIAL SQ SCH ×3 (06:18→16:01)
[2021-04-11] MEDS: INSULIN (LEVEMIR) 100 UNITS/ML UNITS SQ SCH (06:19)
[2021-04-11] MEDS: glipiZIDE-XL 2.5 MG TAB.ER.24 PO SCH (06:23)
[2021-04-11] MEDS: NIFEdipine E.R 60 MG TABLET PO SCH (11:14)
[2021-04-11] MEDS: ISOSORBIDE MONONITRATE 60 MG TAB.SR.24H (FP) PO SCH (11:14)
[2021-04-11] MEDS: ASPIRIN COATED 81 MG TABLET.EC PO SCH (11:14)
[2021-04-11] MEDS: SODIUM ZIRCONIUM CYCLOSILICATE (LOKELMA) 5 GM PACKET PO SCH (11:14)
[2021-04-11] MEDS: PANTOPRAZOLE 40 MG TABLET PO SCH (11:14)
[2021-04-11] MEDS: LABETALOL HCL 200 MG TABLET (FP) PO SCH (11:14)
[2021-04-11] MEDS: CLOPIDOGREL BISULFATE 75 MG TABLET (FP) PO SCH (11:15)
[2021-04-11] MEDS: BUDESONIDE/FORMETEROL FUMARATE 80/4.5 mcg INHALER IH SCH (11:15)
[2021-04-11 13:16] VITALS: BP 138/86; PULSE 78; TEMP 97.7
[2021-04-11 14:14] LABS: BASO % 0.1 % (0-2.0); EOS % 0.3 % (0-4.5); HEMOGLOBIN 8.9 GM/dL (11.7-16.9); MCH 27.8 pg (25.7-33.7); MCHC 31.8 g/dl (32.0-35.9); MEAN CELL VOLUME 87.3 fl (80-96); MEAN PLT VOLUME 7.1 fl (7.5-11.1); MONO % 5.4 % (3.8-10.2); NEUT % 84.2 % (42.8-82.8); PLATELET COUNT 443 10^3/uL (134-434); RDW 18.2 % (11.9-15.9); WHITE BLOOD COUNT 16.9 K/mm3 (4.0-10.0)
[2021-04-11 14:42] LABS: BLOOD UREA NITROGEN 44.9 mg/dL (7-18); CALCIUM 9.3 mg/dL (8.5-10.1)
[2021-04-11 14:43] LABS: ALBUMIN 2.9 g/dl (3.4-5.0)
[2021-04-11 14:45] LABS: CREATININE 1.9 mg/dL (0.55-1.3)
[2021-04-11 14:47] LABS: BILIRUBIN,TOTAL 0.4 mg/dL (0.2-1); TOT PROT 7.1 g/dl (6.4-8.2)
== END 2021-04-11 16:21 | disposition home or self-care (01) | DRG 140 ==
LOC: JER 14:44 → JERBED 17:05 → J5S 22:30
PROVIDERS: ADMIT Internal Medicine; ATTEND Nurse Practitioner Family
DX: J44.1 Chronic obstructive pulmonary disease with (acute) exacerbation (principal); I50.33 Acute on chronic diastolic (congestive) heart failure; I13.0 Hypertensive heart and chronic kidney disease with heart failure and stage 1 through stage 4 chronic kidney disease, or unspecified chronic kidney disease; E87.2 Acidosis; E83.41 Hypermagnesemia; F10.10 Alcohol abuse, uncomplicated; F14.10 Cocaine abuse, uncomplicated; F17.210 Nicotine dependence, cigarettes, uncomplicated; I16.0 Hypertensive urgency; N18.30 Chronic kidney disease, stage 3 unspecified; E87.5 Hyperkalemia; J45.901 Unspecified asthma with (acute) exacerbation; I25.10 Atherosclerotic heart disease of native coronary artery without angina pectoris; Z98.61 Coronary angioplasty status; I27.20 Pulmonary hypertension, unspecified; E87.1 Hypo-osmolality and hyponatremia; E11.65 Type 2 diabetes mellitus with hyperglycemia; N17.9 Acute kidney failure, unspecified
CPT/HCPCS: 36415; 71045-TC-FY; 80048; 80053; 80307; 81003; 82947; 82962; 83735; 84100; 85025; 85027; 93005; 93010; 94761; 99285-25; C9803; J1644; U0003; U0005

== ENCOUNTER 2021-06-03 07:32 | Inpatient (IN) | payer OTHER ==
[2021-06-03] MEDS ORDERED: methylPREDNISolone NA SUCC 125 MG/2 ML VIAL IVPUSH ONE (08:04)
[2021-06-03] MEDS ORDERED: ONDANSETRON 4 MG/2 ML VIAL IVPUSH ONE (08:05)
[2021-06-03] MEDS ORDERED: ACETAMINOPHEN 1000 MG/100 ML BAG IVPB ONE (08:06)
[2021-06-03] MEDS: ALBUTEROL SO4 2.5/IPRATROPIUM 0.5 INH SOL 3 ML VIAL.NEB. NEB SCH ×4 (08:22→10:04)
[2021-06-03] MEDS ORDERED: methylPREDNISolone NA SUCC 125 MG/2 ML VIAL ONE (08:56)
[2021-06-03] MEDS ORDERED: ACETAMINOPHEN INJECTION 100 ML IVPB ONE (08:56)
[2021-06-03] MEDS ORDERED: ONDANSETRON 4 MG/2 ML VIAL ONE (08:56)
[2021-06-03 09:44] LABS: BASO % 0.6 % (0-2.0); EOS % 2.2 % (0-4.5); HEMATOCRIT 30.2 % (35.4-49); HEMOGLOBIN 9.6 GM/dL (11.7-16.9); LYMPH % 12.3 % (8-40); MCH 28.5 pg (25.7-33.7); MCHC 31.8 g/dl (32.0-35.9); MEAN CELL VOLUME 89.6 fl (80-96); MEAN PLT VOLUME 7.3 fl (7.5-11.1); MONO % 6.5 % (3.8-10.2); NEUT % 78.4 % (42.8-82.8); PLATELET COUNT 322 10^3/uL (134-434); RBC 3.38 M/mm3 (4.00-5.60); RDW 18.9 % (11.9-15.9); WHITE BLOOD COUNT 10.4 K/mm3 (4.0-10.0)
[2021-06-03 09:50] LABS: INR 1.27 (0.83-1.09); PROTHROMBIN TIME (PATIENT) 14.6 SEC (9.7-13.0)
[2021-06-03 09:51] LABS: VENOUS BASE EXCESS -8.5 mmol/L (-2-2); VENOUS O2 SATURATION 70.2 % (70-80); VENOUS PCO2 50.4 mmHg (38-52); VENOUS PH 7.204 (7.310-7.410)
[2021-06-03 09:53] LABS: ACTIVATED PTT 31.1 SECONDS (25.2-36.5)
[2021-06-03 10:14] LABS: CALCIUM 8.5 mg/dL (8.5-10.1)
[2021-06-03 10:15] LABS: BLOOD UREA NITROGEN 35.4 mg/dL (7-18)
[2021-06-03 10:16] LABS: ALBUMIN 2.8 g/dl (3.4-5.0)
[2021-06-03 10:19] LABS: CREATININE 2.2 mg/dL (0.55-1.3)
[2021-06-03 10:21] LABS: BILIRUBIN,TOTAL 0.6 mg/dL (0.2-1)
[2021-06-03 10:24] LABS: N-TERMINAL BNP 9291.5 pg/ml (5-125)
[2021-06-03] MEDS ORDERED: FUROSEMIDE 40 MG/4 ML INJECTABLE VIAL IVPUSH SCH (13:00)
[2021-06-03] MEDS ORDERED: FUROSEMIDE 40 MG/4 ML INJECTABLE VIAL ONE (13:05)
[2021-06-03] MEDS ORDERED: SPIRONOLACTONE 25 MG TABLET PO SCH (13:15)
[2021-06-03] MEDS ORDERED: HEPARIN NA (PORCINE) 5,000 UNITS/ML 1ML VIAL ONE (13:16)
[2021-06-03] MEDS ORDERED: ISOSORBIDE MONONITRATE 60 MG TAB.SR.24H (FP) PO SCH (13:30)
[2021-06-03] MEDS ORDERED: NIFEdipine E.R 60 MG TABLET PO SCH (13:30)
[2021-06-03] MEDS ORDERED: ALBUTEROL SO4 2.5/IPRATROPIUM 0.5 INH SOL 3 ML VIAL.NEB. NEB PRN ×2 (13:34→17:54)
[2021-06-03] MEDS ORDERED: hydrALAZINE HCL 50 MG TABLET (FP) PO SCH (14:00)
[2021-06-03] MEDS ORDERED: LABETALOL IN NACL, ISO-OSMOTIC 300 MG/300 ML BAG IV SCH (15:00)
[2021-06-03] MEDS ORDERED: diazePAM CARPU-JECT 10 MG/2 ML DISP.SYRIN IVPUSH ONE (15:13)
[2021-06-03] MEDS: NICARDIPINE 25 MG in DEXTROSE 5%-WATER - 240 ML IVPB SCH ×2 (15:15→22:04)
[2021-06-03] MEDS ORDERED: AZITHROMYCIN IVPB 500 MG/250 ML BAG IVPB SCH (15:45)
[2021-06-03] MEDS ORDERED: INSULIN SLIDING SCALE (NOVOLOG) 1 VIAL SQ SCH (16:30)
[2021-06-03] MEDS ORDERED: hydrALAZINE HCL 25 MG TABLET (FP) ONE (17:33)
[2021-06-03] MEDS: INSULIN SLIDING SCALE (NOVOLOG) 1 VIAL SQ SCH ×2 (18:17→22:02)
[2021-06-03 18:34] LABS: URINE BARBITURATES NEGATIVE (NEGATIVE)
[2021-06-03 18:35] LABS: METHADONE, UR NEGATIVE (NEGATIVE); OPIATES, URI NEGATIVE (NEGATIVE); PHENCYCLIDINE,URINE NEGATIVE (NEGATIVE); URINE BENZODIAZEPINES NEGATIVE (NEGATIVE)
[2021-06-03 18:38] LABS: COCAINE, UR POSITIVE (NEGATIVE); URINE AMPHETAMINES NEGATIVE (NEGATIVE)
[2021-06-03] MEDS: HEPARIN NA (PORCINE) 5,000 UNITS/ML 1ML VIAL SQ SCH (21:50)
[2021-06-03] MEDS: ATORVASTATIN CA 80 MG TABLET (FP) PO SCH (21:54)
[2021-06-03] MEDS: hydrALAZINE HCL 50 MG TABLET (FP) PO SCH (21:54)
[2021-06-03] MEDS: CHLORHEXIDINE GLUCONATE 4% CLEANSER FOR DECOLONIZATION TP SCH (21:55)
[2021-06-03] MEDS: MUPIROCIN 2% TOPICAL OINTMENT FOR DECOLONIZATION NS SCH (21:56)
[2021-06-03] MEDS ORDERED: LABETALOL HCL 200 MG TABLET (FP) PO SCH (22:00)
[2021-06-03] MEDS ORDERED: INSULIN (LEVEMIR) 100 UNITS/ML UNITS SQ SCH ×2 (22:00)
[2021-06-03] MEDS ORDERED: ATORVASTATIN CA 80 MG TABLET (FP) PO SCH (22:00)
[2021-06-03] MEDS: AZITHROMYCIN 500 MG TABLET PO SCH (22:45)
[2021-06-04] MEDS ORDERED: NITROGLYCERIN SUBLINGUAL 1/150 0.4 MG TAB SL ONE (01:17)
[2021-06-04] MEDS ORDERED: PANTOPRAZOLE SODIUM 40 MG VIAL IVPUSH ONE (01:18)
[2021-06-04] MEDS ORDERED: ACETAMINOPHEN 1000 MG/100 ML BAG IVPB ONE (02:21)
[2021-06-04] MEDS ORDERED: MELATONIN 5 MG TABLETS PO PRN (03:18)
[2021-06-04] MEDS: NICARDIPINE 25 MG in DEXTROSE 5%-WATER - 240 ML IVPB SCH (03:55)
[2021-06-04] MEDS: hydrALAZINE HCL 50 MG TABLET (FP) PO SCH ×3 (05:29→22:14)
[2021-06-04] MEDS: HEPARIN NA (PORCINE) 5,000 UNITS/ML 1ML VIAL SQ SCH ×3 (05:29→22:15)
[2021-06-04] MEDS: FUROSEMIDE 40 MG/4 ML INJECTABLE VIAL IVPUSH SCH ×3 (05:29→13:42)
[2021-06-04] MEDS: INSULIN SLIDING SCALE (NOVOLOG) 1 VIAL SQ SCH ×4 (06:30→22:19)
[2021-06-04 06:37] LABS: BASO % 0.3 % (0-2.0); EOS % 0.1 % (0-4.5); LYMPH % 5.1 % (8-40); MCHC 30.9 g/dl (32.0-35.9); MEAN CELL VOLUME 90.5 fl (80-96); MEAN PLT VOLUME 7.6 fl (7.5-11.1); MONO % 5.9 % (3.8-10.2); NEUT % 88.6 % (42.8-82.8); PLATELET COUNT 293 10^3/uL (134-434); RDW 18.5 % (11.9-15.9); WHITE BLOOD COUNT 9.8 K/mm3 (4.0-10.0)
[2021-06-04] MEDS: ALBUTEROL SO4 HFA INHALER IH PRN (07:00)
[2021-06-04 07:01] LABS: ALBUMIN 2.5 g/dl (3.4-5.0); BLOOD UREA NITROGEN 46.6 mg/dL (7-18); CALCIUM 7.7 mg/dL (8.5-10.1); MAGNESIUM 2.1 mg/dL (1.8-2.4)
[2021-06-04 07:04] LABS: CREATININE 2.3 mg/dL (0.55-1.3); PHOSPHOROUS 3.5 mg/dL (2.5-4.9)
[2021-06-04 07:06] LABS: BILIRUBIN,TOTAL 0.7 mg/dL (0.2-1); TOT PROT 6.4 g/dl (6.4-8.2)
[2021-06-04] MEDS ORDERED: FUROSEMIDE 40 MG TABLET (FP) PO ONE ×2 (07:55)
[2021-06-04 08:06] LABS: SARS-CoV-2 NAA Not Detected (Not Detected)
[2021-06-04] MEDS: CLOPIDOGREL BISULFATE 75 MG TABLET (FP) PO SCH (08:59)
[2021-06-04] MEDS: ASPIRIN COATED 81 MG TABLET.EC PO SCH (08:59)
[2021-06-04] MEDS: AZITHROMYCIN 500 MG TABLET PO SCH (08:59)
[2021-06-04] MEDS: ISOSORBIDE MONONITRATE 30 MG TAB.SR.24H (FP) PO SCH (08:59)
[2021-06-04] MEDS: MUPIROCIN 2% TOPICAL OINTMENT FOR DECOLONIZATION NS SCH ×2 (09:43→22:15)
[2021-06-04] MEDS ORDERED: SODIUM ZIRCONIUM CYCLOSILICATE (LOKELMA) 5 GM PACKET PO SCH (10:00)
[2021-06-04] MEDS ORDERED: SPIRONOLACTONE 25 MG TABLET PO SCH (10:00)
[2021-06-04] MEDS ORDERED: CLOPIDOGREL BISULFATE 75 MG TABLET (FP) PO SCH (10:00)
[2021-06-04] MEDS ORDERED: ASPIRIN COATED 81 MG TABLET.EC PO SCH (10:00)
[2021-06-04] MEDS: methylPREDNISolone NA SUCC 40 MG/1 ML VIAL IVPUSH SCH ×2 (11:05→17:25)
[2021-06-04] MEDS: METOPROLOL TARTRATE 25 MG TABLET (FP) PO SCH ×2 (11:27→22:19)
[2021-06-04] MEDS ORDERED: INSULIN (LEVEMIR) 100 UNITS/ML UNITS SQ SCH (12:00)
[2021-06-04] MEDS: SODIUM BICARBONATE 650 MG TABLET PO SCH (17:25)
[2021-06-04] MEDS: SODIUM ZIRCONIUM CYCLOSILICATE (LOKELMA) 5 GM PACKET PO SCH ×2 (17:26→22:18)
[2021-06-04] MEDS: METOPROLOL TARTRATE 5 MG/5 ML VIAL IVPUSH PRN (18:53)
[2021-06-04] MEDS: CHLORHEXIDINE GLUCONATE 4% CLEANSER FOR DECOLONIZATION TP SCH (22:15)
[2021-06-04] MEDS: INSULIN (LEVEMIR) 100 UNITS/ML UNITS SQ SCH (22:16)
[2021-06-04] MEDS: ATORVASTATIN CA 80 MG TABLET (FP) PO SCH (22:18)
[2021-06-05] MEDS ORDERED: INSULIN (NOVOLOG) ASPART 100 UNITS/ML 10ML VIAL SQ ONE ×2 (00:09→02:57)
[2021-06-05] MEDS: METOPROLOL TARTRATE 5 MG/5 ML VIAL IVPUSH PRN ×4 (00:33→18:32)
[2021-06-05] MEDS: methylPREDNISolone NA SUCC 40 MG/1 ML VIAL IVPUSH SCH (01:05)
[2021-06-05] MEDS ORDERED: METOPROLOL TARTRATE 5 MG/5 ML VIAL IVPUSH ONE ×2 (02:13→02:48)
[2021-06-05] MEDS: hydrALAZINE HCL 50 MG TABLET (FP) PO SCH ×3 (05:22→21:24)
[2021-06-05] MEDS: HEPARIN NA (PORCINE) 5,000 UNITS/ML 1ML VIAL SQ SCH ×3 (05:22→21:25)
[2021-06-05] MEDS: FUROSEMIDE 40 MG/4 ML INJECTABLE VIAL IVPUSH SCH ×2 (05:23→13:23)
[2021-06-05] MEDS: INSULIN (LEVEMIR) 100 UNITS/ML UNITS SQ SCH ×2 (06:15→22:23)
[2021-06-05] MEDS: INSULIN SLIDING SCALE (NOVOLOG) 1 VIAL SQ SCH ×4 (06:16→22:24)
[2021-06-05 07:29] LABS: HEMATOCRIT 29.7 % (35.4-49); HEMOGLOBIN 9.5 GM/dL (11.7-16.9); MCH 28.6 pg (25.7-33.7); MCHC 31.9 g/dl (32.0-35.9); MEAN CELL VOLUME 89.6 fl (80-96); MEAN PLT VOLUME 7.6 fl (7.5-11.1); PLATELET COUNT 330 10^3/uL (134-434); RBC 3.32 M/mm3 (4.00-5.60); RDW 18.3 % (11.9-15.9); WHITE BLOOD COUNT 10.2 K/mm3 (4.0-10.0)
[2021-06-05 07:52] LABS: CALCIUM 8.5 mg/dL (8.5-10.1)
[2021-06-05 07:53] LABS: BLOOD UREA NITROGEN 46.3 mg/dL (7-18); MAGNESIUM 2.2 mg/dL (1.8-2.4)
[2021-06-05 07:56] LABS: CREATININE 2.1 mg/dL (0.55-1.3); PHOSPHOROUS 3.8 mg/dL (2.5-4.9)
[2021-06-05 07:57] LABS: BILIRUBIN,TOTAL 0.6 mg/dL (0.2-1); TOT PROT 7.2 g/dl (6.4-8.2)
[2021-06-05] MEDS: SODIUM ZIRCONIUM CYCLOSILICATE (LOKELMA) 5 GM PACKET PO SCH ×2 (09:45→21:26)
[2021-06-05] MEDS: ISOSORBIDE MONONITRATE 30 MG TAB.SR.24H (FP) PO SCH (09:46)
[2021-06-05] MEDS: SODIUM BICARBONATE 650 MG TABLET PO SCH (09:46)
[2021-06-05] MEDS: CLOPIDOGREL BISULFATE 75 MG TABLET (FP) PO SCH (09:46)
[2021-06-05] MEDS: METOPROLOL TARTRATE 25 MG TABLET (FP) PO SCH (09:46)
[2021-06-05] MEDS: ASPIRIN COATED 81 MG TABLET.EC PO SCH (09:46)
[2021-06-05] MEDS: MUPIROCIN 2% TOPICAL OINTMENT FOR DECOLONIZATION NS SCH ×2 (09:48→21:25)
[2021-06-05] MEDS: AZITHROMYCIN 500 MG TABLET PO SCH (09:53)
[2021-06-05] MEDS: ALBUTEROL SO4 HFA INHALER IH PRN (09:53)
[2021-06-05 12:24] LABS: ANISOCYTOSIS 1+; MACROCYTOSIS 1+; PLATELET ESTIMATE NORMAL
[2021-06-05] MEDS ORDERED: METOPROLOL TARTRATE 50 MG TABLET (FP) PO SCH (17:29)
[2021-06-05] MEDS: ATORVASTATIN CA 80 MG TABLET (FP) PO SCH (21:25)
[2021-06-05] MEDS: CHLORHEXIDINE GLUCONATE 4% CLEANSER FOR DECOLONIZATION TP SCH (21:25)
[2021-06-05] MEDS: LABETALOL HCL 200 MG TABLET (FP) PO SCH (21:26)
[2021-06-06] MEDS: HEPARIN NA (PORCINE) 5,000 UNITS/ML 1ML VIAL SQ SCH ×3 (06:33→21:51)
[2021-06-06] MEDS: hydrALAZINE HCL 50 MG TABLET (FP) PO SCH ×3 (06:33→21:50)
[2021-06-06] MEDS: INSULIN (LEVEMIR) 100 UNITS/ML UNITS SQ SCH ×2 (06:34→21:51)
[2021-06-06] MEDS: INSULIN SLIDING SCALE (NOVOLOG) 1 VIAL SQ SCH ×4 (06:34→21:51)
[2021-06-06] MEDS: FUROSEMIDE 40 MG/4 ML INJECTABLE VIAL IVPUSH SCH ×2 (06:34→13:59)
[2021-06-06 07:30] LABS: HEMATOCRIT 29.5 % (35.4-49); HEMOGLOBIN 9.3 GM/dL (11.7-16.9); MCH 27.8 pg (25.7-33.7); MCHC 31.4 g/dl (32.0-35.9); MEAN CELL VOLUME 88.5 fl (80-96); MEAN PLT VOLUME 7.3 fl (7.5-11.1); PLATELET COUNT 340 10^3/uL (134-434); RBC 3.33 M/mm3 (4.00-5.60); RDW 18.3 % (11.9-15.9); WHITE BLOOD COUNT 11.8 K/mm3 (4.0-10.0)
[2021-06-06 07:42] LABS: ALBUMIN 2.7 g/dl (3.4-5.0); BLOOD UREA NITROGEN 54.1 mg/dL (7-18); CALCIUM 8.5 mg/dL (8.5-10.1); MAGNESIUM 2.2 mg/dL (1.8-2.4)
[2021-06-06 07:46] LABS: CREATININE 2.1 mg/dL (0.55-1.3)
[2021-06-06 07:47] LABS: BILIRUBIN,TOTAL 0.4 mg/dL (0.2-1); TOT PROT 6.5 g/dl (6.4-8.2)
[2021-06-06] MEDS: ASPIRIN COATED 81 MG TABLET.EC PO SCH (09:58)
[2021-06-06] MEDS: ISOSORBIDE MONONITRATE 30 MG TAB.SR.24H (FP) PO SCH (09:58)
[2021-06-06] MEDS: LABETALOL HCL 200 MG TABLET (FP) PO SCH ×2 (09:58→21:52)
[2021-06-06] MEDS: CLOPIDOGREL BISULFATE 75 MG TABLET (FP) PO SCH (09:59)
[2021-06-06] MEDS: SODIUM BICARBONATE 650 MG TABLET PO SCH (09:59)
[2021-06-06] MEDS: MUPIROCIN 2% TOPICAL OINTMENT FOR DECOLONIZATION NS SCH ×2 (09:59→21:51)
[2021-06-06] MEDS: AZITHROMYCIN 500 MG TABLET PO SCH (09:59)
[2021-06-06 11:01] LABS: ANISOCYTOSIS 1+; MACROCYTOSIS 0; OVALOCYTE 1+; TEAR DROP CELLS 1+
[2021-06-06] MEDS: MINERAL OIL/PET HY-PHL TOPICAL OINTMENT 454 GM JAR TP SCH ×2 (17:40→21:50)
[2021-06-06] MEDS: CHLORHEXIDINE GLUCONATE 4% CLEANSER FOR DECOLONIZATION TP SCH (21:51)
[2021-06-06] MEDS: ATORVASTATIN CA 80 MG TABLET (FP) PO SCH (21:52)
[2021-06-07] MEDS: FUROSEMIDE 40 MG/4 ML INJECTABLE VIAL IVPUSH SCH ×2 (06:16→14:19)
[2021-06-07] MEDS: HEPARIN NA (PORCINE) 5,000 UNITS/ML 1ML VIAL SQ SCH ×3 (06:16→21:32)
[2021-06-07] MEDS: hydrALAZINE HCL 50 MG TABLET (FP) PO SCH ×3 (06:17→21:32)
[2021-06-07] MEDS: INSULIN SLIDING SCALE (NOVOLOG) 1 VIAL SQ SCH ×4 (06:22→21:50)
[2021-06-07] MEDS: INSULIN (LEVEMIR) 100 UNITS/ML UNITS SQ SCH ×2 (06:23→21:50)
[2021-06-07 07:27] LABS: HEMATOCRIT 29.7 % (35.4-49); HEMOGLOBIN 9.5 GM/dL (11.7-16.9); MCH 28.4 pg (25.7-33.7); MCHC 32.1 g/dl (32.0-35.9); MEAN CELL VOLUME 88.5 fl (80-96); MEAN PLT VOLUME 7.4 fl (7.5-11.1); PLATELET COUNT 358 10^3/uL (134-434); RBC 3.36 M/mm3 (4.00-5.60); RDW 18.4 % (11.9-15.9); WHITE BLOOD COUNT 9.8 K/mm3 (4.0-10.0)
[2021-06-07 07:44] LABS: CALCIUM 8.4 mg/dL (8.5-10.1)
[2021-06-07 07:45] LABS: ALBUMIN 2.8 g/dl (3.4-5.0); BLOOD UREA NITROGEN 51.7 mg/dL (7-18)
[2021-06-07 07:48] LABS: CREATININE 2.2 mg/dL (0.55-1.3)
[2021-06-07 07:50] LABS: BILIRUBIN,TOTAL 0.6 mg/dL (0.2-1); TOT PROT 6.3 g/dl (6.4-8.2)
[2021-06-07 09:10] LABS: ANISOCYTOSIS 0; MACROCYTOSIS 0; TARGET CELLS 1+
[2021-06-07] MEDS: LABETALOL HCL 200 MG TABLET (FP) PO SCH ×2 (09:15→21:32)
[2021-06-07] MEDS: CLOPIDOGREL BISULFATE 75 MG TABLET (FP) PO SCH (09:15)
[2021-06-07] MEDS: SODIUM BICARBONATE 650 MG TABLET PO SCH (09:15)
[2021-06-07] MEDS: ISOSORBIDE MONONITRATE 30 MG TAB.SR.24H (FP) PO SCH (09:16)
[2021-06-07] MEDS: ASPIRIN COATED 81 MG TABLET.EC PO SCH (09:16)
[2021-06-07] MEDS: MUPIROCIN 2% TOPICAL OINTMENT FOR DECOLONIZATION NS SCH (09:16)
[2021-06-07] MEDS: MINERAL OIL/PET HY-PHL TOPICAL OINTMENT 454 GM JAR TP SCH ×2 (09:16→21:32)
[2021-06-07] MEDS: METOPROLOL TARTRATE 5 MG/5 ML VIAL IVPUSH PRN (18:04)
[2021-06-07] MEDS ORDERED: ALBUTEROL SO4 HFA INHALER IH PRN (19:29)
[2021-06-07] MEDS ORDERED: ALBUTEROL SO4 2.5/IPRATROPIUM 0.5 INH SOL 3 ML VIAL.NEB. NEB PRN (19:29)
[2021-06-07] MEDS: ATORVASTATIN CA 80 MG TABLET (FP) PO SCH (21:32)
[2021-06-07] MEDS ORDERED: CHLORHEXIDINE GLUCONATE 4% CLEANSER FOR DECOLONIZATION TP SCH (22:00)
[2021-06-07] MEDS ORDERED: MUPIROCIN 2% TOPICAL OINTMENT FOR DECOLONIZATION NS SCH (22:00)
[2021-06-08] MEDS: METOPROLOL TARTRATE 5 MG/5 ML VIAL IVPUSH PRN ×2 (01:19→20:39)
[2021-06-08] MEDS: HEPARIN NA (PORCINE) 5,000 UNITS/ML 1ML VIAL SQ SCH ×3 (05:58→21:17)
[2021-06-08] MEDS: hydrALAZINE HCL 50 MG TABLET (FP) PO SCH ×3 (05:58→21:19)
[2021-06-08] MEDS: FUROSEMIDE 40 MG/4 ML INJECTABLE VIAL IVPUSH SCH ×2 (06:01→14:16)
[2021-06-08] MEDS: INSULIN SLIDING SCALE (NOVOLOG) 1 VIAL SQ SCH ×4 (06:01→21:25)
[2021-06-08] MEDS: INSULIN (LEVEMIR) 100 UNITS/ML UNITS SQ SCH ×2 (06:01→21:26)
[2021-06-08 07:55] LABS: HEMATOCRIT 29.1 % (35.4-49); HEMOGLOBIN 9.3 GM/dL (11.7-16.9); MEAN CELL VOLUME 87.4 fl (80-96); MEAN PLT VOLUME 7.1 fl (7.5-11.1); PLATELET COUNT 385 10^3/uL (134-434); RBC 3.33 M/mm3 (4.00-5.60); RDW 18.3 % (11.9-15.9); WHITE BLOOD COUNT 10.8 K/mm3 (4.0-10.0)
[2021-06-08 08:11] LABS: ALBUMIN 2.7 g/dl (3.4-5.0); BLOOD UREA NITROGEN 49.7 mg/dL (7-18); CALCIUM 8.9 mg/dL (8.5-10.1); MAGNESIUM 1.9 mg/dL (1.8-2.4)
[2021-06-08 08:13] LABS: CREATININE 2.1 mg/dL (0.55-1.3)
[2021-06-08 08:14] LABS: TOT PROT 6.5 g/dl (6.4-8.2)
[2021-06-08 08:15] LABS: BILIRUBIN,TOTAL 0.7 mg/dL (0.2-1)
[2021-06-08] MEDS: ISOSORBIDE MONONITRATE 30 MG TAB.SR.24H (FP) PO SCH (09:37)
[2021-06-08] MEDS: ASPIRIN COATED 81 MG TABLET.EC PO SCH (09:37)
[2021-06-08] MEDS: SODIUM BICARBONATE 650 MG TABLET PO SCH (09:37)
[2021-06-08] MEDS: MINERAL OIL/PET HY-PHL TOPICAL OINTMENT 454 GM JAR TP SCH ×2 (09:38→21:19)
[2021-06-08] MEDS: LABETALOL HCL 200 MG TABLET (FP) PO SCH ×2 (09:38→21:18)
[2021-06-08] MEDS: CLOPIDOGREL BISULFATE 75 MG TABLET (FP) PO SCH (09:38)
[2021-06-08 11:14] LABS: ANISOCYTOSIS 0; HELMET CELLS 0; HOWELL-JOLLY BODIES 0; MACROCYTOSIS 0; OVALOCYTE 0; ROULEAU 0; SICKELED CELLS 0; TARGET CELLS 0; TEAR DROP CELLS 0; TOXIC GRANULATION 0
[2021-06-08] MEDS: MELATONIN 5 MG TABLETS PO PRN (21:17)
[2021-06-08] MEDS: ATORVASTATIN CA 80 MG TABLET (FP) PO SCH (21:37)
[2021-06-09] MEDS: HEPARIN NA (PORCINE) 5,000 UNITS/ML 1ML VIAL SQ SCH ×3 (06:16→21:38)
[2021-06-09] MEDS: FUROSEMIDE 40 MG/4 ML INJECTABLE VIAL IVPUSH SCH ×2 (06:16→14:16)
[2021-06-09] MEDS: hydrALAZINE HCL 50 MG TABLET (FP) PO SCH ×3 (06:16→21:30)
[2021-06-09] MEDS: INSULIN (LEVEMIR) 100 UNITS/ML UNITS SQ SCH ×2 (06:17→21:30)
[2021-06-09] MEDS: INSULIN SLIDING SCALE (NOVOLOG) 1 VIAL SQ SCH ×4 (06:17→21:28)
[2021-06-09 07:30] LABS: BASO % 0.8 % (0-2.0); EOS % 2.2 % (0-4.5); HEMATOCRIT 27.1 % (35.4-49); HEMOGLOBIN 8.9 GM/dL (11.7-16.9); LYMPH % 13.2 % (8-40); MCH 28.8 pg (25.7-33.7); MCHC 32.8 g/dl (32.0-35.9); MEAN CELL VOLUME 87.8 fl (80-96); MEAN PLT VOLUME 7.2 fl (7.5-11.1); MONO % 10.2 % (3.8-10.2); NEUT % 73.6 % (42.8-82.8); PLATELET COUNT 360 10^3/uL (134-434); RBC 3.08 M/mm3 (4.00-5.60); RDW 18.5 % (11.9-15.9); WHITE BLOOD COUNT 10.3 K/mm3 (4.0-10.0)
[2021-06-09 08:06] LABS: ALBUMIN 2.6 g/dl (3.4-5.0); BLOOD UREA NITROGEN 48.6 mg/dL (7-18); CALCIUM 8.6 mg/dL (8.5-10.1); MAGNESIUM 1.8 mg/dL (1.8-2.4)
[2021-06-09 08:11] LABS: TOT PROT 6.2 g/dl (6.4-8.2)
[2021-06-09] MEDS: SODIUM BICARBONATE 650 MG TABLET PO SCH (09:24)
[2021-06-09] MEDS: CLOPIDOGREL BISULFATE 75 MG TABLET (FP) PO SCH (09:24)
[2021-06-09] MEDS: ISOSORBIDE MONONITRATE 30 MG TAB.SR.24H (FP) PO SCH (09:24)
[2021-06-09] MEDS: LABETALOL HCL 200 MG TABLET (FP) PO SCH (09:24)
[2021-06-09] MEDS: ASPIRIN COATED 81 MG TABLET.EC PO SCH (09:24)
[2021-06-09] MEDS: MINERAL OIL/PET HY-PHL TOPICAL OINTMENT 454 GM JAR TP SCH ×2 (09:25→21:30)
[2021-06-09 18:03] LABS: URINE APPEARANCE CLEAR; URINE BILIRUBIN NEGATIVE (NEGATIVE); URINE COLOR YELLOW; URINE GLUCOSE (UA) NEGATIVE (NEGATIVE); URINE KETONE NEGATIVE (NEGATIVE); URINE LEUK ESTERASE NEGATIVE (NEGATIVE); URINE NITRITE NEGATIVE (NEGATIVE); URINE PROTEIN NEGATIVE (NEGATIVE); URINE UROBILINOGEN 0.2 mg/dL (0.2-1.0)
[2021-06-09] MEDS: ATORVASTATIN CA 80 MG TABLET (FP) PO SCH (21:30)
[2021-06-10] MEDS: METOPROLOL TARTRATE 5 MG/5 ML VIAL IVPUSH PRN (01:21)
[2021-06-10] MEDS ORDERED: ACETAMINOPHEN 325 MG TABLET (FP) PO ONE ×2 (05:09→10:06)
[2021-06-10] MEDS: FUROSEMIDE 40 MG/4 ML INJECTABLE VIAL IVPUSH SCH ×2 (06:04→13:56)
[2021-06-10] MEDS: HEPARIN NA (PORCINE) 5,000 UNITS/ML 1ML VIAL SQ SCH ×3 (06:05→21:49)
[2021-06-10] MEDS: hydrALAZINE HCL 50 MG TABLET (FP) PO SCH ×3 (06:09→21:48)
[2021-06-10] MEDS: INSULIN (LEVEMIR) 100 UNITS/ML UNITS SQ SCH ×2 (06:11→21:51)
[2021-06-10] MEDS: INSULIN SLIDING SCALE (NOVOLOG) 1 VIAL SQ SCH ×4 (06:12→21:52)
[2021-06-10 07:18] LABS: BASO % 0.6 % (0-2.0); EOS % 2.3 % (0-4.5); HEMATOCRIT 27.9 % (35.4-49); HEMOGLOBIN 8.9 GM/dL (11.7-16.9); MCH 28.3 pg (25.7-33.7); MEAN CELL VOLUME 88.5 fl (80-96); MEAN PLT VOLUME 7.7 fl (7.5-11.1); NEUT % 70.1 % (42.8-82.8); PLATELET COUNT 385 10^3/uL (134-434); RBC 3.15 M/mm3 (4.00-5.60); RDW 18.1 % (11.9-15.9); WHITE BLOOD COUNT 10.4 K/mm3 (4.0-10.0)
[2021-06-10 07:50] LABS: ALBUMIN 2.7 g/dl (3.4-5.0); CALCIUM 8.2 mg/dL (8.5-10.1); MAGNESIUM 1.7 mg/dL (1.8-2.4)
[2021-06-10 07:53] LABS: CREATININE 2.2 mg/dL (0.55-1.3)
[2021-06-10 07:55] LABS: TOT PROT 6.6 g/dl (6.4-8.2)
[2021-06-10] MEDS: CLOPIDOGREL BISULFATE 75 MG TABLET (FP) PO SCH (09:15)
[2021-06-10] MEDS: ISOSORBIDE MONONITRATE 30 MG TAB.SR.24H (FP) PO SCH (09:15)
[2021-06-10] MEDS: ASPIRIN COATED 81 MG TABLET.EC PO SCH (09:15)
[2021-06-10] MEDS: SODIUM BICARBONATE 650 MG TABLET PO SCH (09:15)
[2021-06-10] MEDS ORDERED: PANTOPRAZOLE 40 MG TABLET PO SCH (10:00)
[2021-06-10] MEDS: PANTOPRAZOLE 20 MG TABLET PO SCH (10:59)
[2021-06-10] MEDS: BENZOCAINE 20 % GEL TUBE MM SCH (10:59)
[2021-06-10] MEDS: MINERAL OIL/PET HY-PHL TOPICAL OINTMENT 454 GM JAR TP SCH ×2 (11:01→21:50)
[2021-06-10] MEDS ORDERED: MAGNESIUM OXIDE 400 MG TABLET (FP) PO ONE (13:00)
[2021-06-10] MEDS: MELATONIN 5 MG TABLETS PO PRN (21:48)
[2021-06-10] MEDS: ATORVASTATIN CA 80 MG TABLET (FP) PO SCH (21:49)
[2021-06-11] MEDS: BENZOCAINE 20 % GEL TUBE MM SCH ×4 (00:25→18:19)
[2021-06-11] MEDS ORDERED: DEXTROSE 50%-WATER - 25 GM/50 ML VIAL IVPUSH ONE (04:46)
[2021-06-11] MEDS ORDERED: DEXTROSE 50%-WATER 25 GM/50 ML DISP.SYRIN ONE (04:48)
[2021-06-11] MEDS: HEPARIN NA (PORCINE) 5,000 UNITS/ML 1ML VIAL SQ SCH ×3 (06:32→22:09)
[2021-06-11] MEDS: FUROSEMIDE 40 MG/4 ML INJECTABLE VIAL IVPUSH SCH ×2 (06:32→14:00)
[2021-06-11] MEDS: hydrALAZINE HCL 50 MG TABLET (FP) PO SCH ×3 (06:33→22:09)
[2021-06-11] MEDS: INSULIN SLIDING SCALE (NOVOLOG) 1 VIAL SQ SCH ×4 (06:49→22:20)
[2021-06-11] MEDS: INSULIN (LEVEMIR) 100 UNITS/ML UNITS SQ SCH ×2 (08:21→22:19)
[2021-06-11] MEDS ORDERED: DEXTROSE 50%-WATER 25 GM/50 ML DISP.SYRIN IVPUSH ONE (08:52)
[2021-06-11] MEDS: ISOSORBIDE MONONITRATE 30 MG TAB.SR.24H (FP) PO SCH (10:01)
[2021-06-11] MEDS: MINERAL OIL/PET HY-PHL TOPICAL OINTMENT 454 GM JAR TP SCH ×2 (10:01→22:20)
[2021-06-11] MEDS: ASPIRIN COATED 81 MG TABLET.EC PO SCH (10:01)
[2021-06-11] MEDS: SODIUM BICARBONATE 650 MG TABLET PO SCH (10:02)
[2021-06-11] MEDS: PANTOPRAZOLE 20 MG TABLET PO SCH (10:02)
[2021-06-11] MEDS: LABETALOL HCL 200 MG TABLET (FP) PO SCH ×2 (10:02→22:09)
[2021-06-11 12:47] LABS: BASO % 0.4 % (0-2.0); EOS % 0.4 % (0-4.5); HEMATOCRIT 33.3 % (35.4-49); HEMOGLOBIN 10.5 GM/dL (11.7-16.9); LYMPH % 10.6 % (8-40); MCH 28.1 pg (25.7-33.7); MCHC 31.6 g/dl (32.0-35.9); MEAN CELL VOLUME 88.9 fl (80-96); MONO % 9.2 % (3.8-10.2); NEUT % 79.4 % (42.8-82.8); PLATELET COUNT 398 10^3/uL (134-434); RBC 3.75 M/mm3 (4.00-5.60); RDW 18.5 % (11.9-15.9); WHITE BLOOD COUNT 11.2 K/mm3 (4.0-10.0)
[2021-06-11 13:12] LABS: CHLORIDE 96 mmol/L (98-107); SODIUM 130 mmol/L (136-145)
[2021-06-11 13:14] LABS: CALCIUM 9.2 mg/dL (8.5-10.1)
[2021-06-11 13:15] LABS: ALBUMIN 3.2 g/dl (3.4-5.0); BLOOD UREA NITROGEN 57.9 mg/dL (7-18); CO2 23 mmol/L (21-32); GLUCOSE,RANDOM 127 mg/dL (74-106); MAGNESIUM 2.5 mg/dL (1.8-2.4)
[2021-06-11 13:18] LABS: CREATININE 2.2 mg/dL (0.55-1.3); SGOT/AST 589 U/L (15-37); SGPT/ALT 502 U/L (13-61)
[2021-06-11 13:20] LABS: BILIRUBIN,TOTAL 2.3 mg/dL (0.2-1); TOT PROT 7.9 g/dl (6.4-8.2)
[2021-06-11 13:38] LABS: ALK PHOS 383 U/L (45-117); ANION GAP 10 MMOL/L (8-16)
[2021-06-11 21:59] LABS: INR 1.3 (0.83-1.09)
[2021-06-11] MEDS ORDERED: traMADol HCL 50 MG TABLET PO ONE (22:42)
[2021-06-12] MEDS: FUROSEMIDE 40 MG/4 ML INJECTABLE VIAL IVPUSH SCH ×2 (06:38→13:37)
[2021-06-12] MEDS: HEPARIN NA (PORCINE) 5,000 UNITS/ML 1ML VIAL SQ SCH ×3 (06:38→21:58)
[2021-06-12] MEDS: INSULIN (LEVEMIR) 100 UNITS/ML UNITS SQ SCH ×2 (06:39→21:59)
[2021-06-12] MEDS: hydrALAZINE HCL 50 MG TABLET (FP) PO SCH ×3 (06:39→21:58)
[2021-06-12] MEDS: BENZOCAINE 20 % GEL TUBE MM SCH ×4 (06:40→17:51)
[2021-06-12] MEDS: INSULIN SLIDING SCALE (NOVOLOG) 1 VIAL SQ SCH ×4 (06:41→21:59)
[2021-06-12 08:40] LABS: INR 1.32 (0.83-1.09); PROTHROMBIN TIME (PATIENT) 15.2 SEC (9.7-13.0)
[2021-06-12] MEDS: PANTOPRAZOLE 20 MG TABLET PO SCH (09:54)
[2021-06-12] MEDS: SODIUM BICARBONATE 650 MG TABLET PO SCH (09:54)
[2021-06-12] MEDS: LABETALOL HCL 200 MG TABLET (FP) PO SCH ×2 (09:54→21:58)
[2021-06-12] MEDS: ASPIRIN COATED 81 MG TABLET.EC PO SCH (09:54)
[2021-06-12] MEDS: MINERAL OIL/PET HY-PHL TOPICAL OINTMENT 454 GM JAR TP SCH ×2 (09:55→21:59)
[2021-06-12] MEDS: ISOSORBIDE MONONITRATE 30 MG TAB.SR.24H (FP) PO SCH (09:55)
[2021-06-12 11:05] LABS: CALCIUM 8.6 mg/dL (8.5-10.1)
[2021-06-12 11:06] LABS: BLOOD UREA NITROGEN 59.3 mg/dL (7-18)
[2021-06-12 11:08] LABS: BILIRUBIN,DIRECT 0.6 mg/dL (0.0-0.2)
[2021-06-12 11:10] LABS: BILIRUBIN,TOTAL 1.3 mg/dL (0.2-1)
[2021-06-12 11:11] LABS: TOT PROT 6.4 g/dl (6.4-8.2)
[2021-06-12 11:12] LABS: CREATININE 2.3 mg/dL (0.55-1.3)
[2021-06-12 13:39] LABS: HEMOGLOBIN 8.7 GM/dL (11.7-16.9); MCH 28.2 pg (25.7-33.7); PLATELET COUNT 323 10^3/uL (134-434); RBC 3.07 M/mm3 (4.00-5.60); RDW 18.7 % (11.9-15.9); WHITE BLOOD COUNT 7.6 K/mm3 (4.0-10.0)
[2021-06-12 13:56] LABS: INR 1.3 (0.83-1.09)
[2021-06-12 14:05] LABS: ALBUMIN 2.8 g/dl (3.4-5.0); BLOOD UREA NITROGEN 56.5 mg/dL (7-18); CALCIUM 8.6 mg/dL (8.5-10.1); MAGNESIUM 2.3 mg/dL (1.8-2.4)
[2021-06-12 14:08] LABS: CREATININE 2.3 mg/dL (0.55-1.3)
[2021-06-12 14:10] LABS: TOT PROT 6.1 g/dl (6.4-8.2)
[2021-06-12 14:12] LABS: ANISOCYTOSIS 1+; MACROCYTOSIS 0
[2021-06-12 23:48] VITALS: BMI 34.4
[2021-06-13] MEDS: BENZOCAINE 20 % GEL TUBE MM SCH ×4 (00:15→18:18)
[2021-06-13] MEDS: hydrALAZINE HCL 50 MG TABLET (FP) PO SCH ×3 (06:54→21:16)
[2021-06-13] MEDS: FUROSEMIDE 40 MG/4 ML INJECTABLE VIAL IVPUSH SCH ×2 (06:54→14:37)
[2021-06-13] MEDS: INSULIN SLIDING SCALE (NOVOLOG) 1 VIAL SQ SCH ×4 (06:54→21:16)
[2021-06-13] MEDS: INSULIN (LEVEMIR) 100 UNITS/ML UNITS SQ SCH ×2 (06:58→21:16)
[2021-06-13] MEDS: HEPARIN NA (PORCINE) 5,000 UNITS/ML 1ML VIAL SQ SCH ×3 (06:58→21:22)
[2021-06-13 07:35] LABS: BASO % 0.9 % (0-2.0); EOS % 1.4 % (0-4.5); HEMATOCRIT 26.8 % (35.4-49); HEMOGLOBIN 8.5 GM/dL (11.7-16.9); LYMPH % 14.9 % (8-40); MCH 28.3 pg (25.7-33.7); MCHC 31.9 g/dl (32.0-35.9); MEAN CELL VOLUME 88.9 fl (80-96); MEAN PLT VOLUME 7.7 fl (7.5-11.1); MONO % 14.6 % (3.8-10.2); NEUT % 68.2 % (42.8-82.8); PLATELET COUNT 336 10^3/uL (134-434); RBC 3.01 M/mm3 (4.00-5.60); RDW 18.1 % (11.9-15.9); WHITE BLOOD COUNT 8.1 K/mm3 (4.0-10.0)
[2021-06-13 07:49] LABS: INR 1.23 (0.83-1.09); PROTHROMBIN TIME (PATIENT) 14.2 SEC (9.7-13.0)
[2021-06-13 08:05] LABS: MAGNESIUM 2.4 mg/dL (1.8-2.4)
[2021-06-13 08:07] LABS: CREATININE 2.2 mg/dL (0.55-1.3)
[2021-06-13 08:08] LABS: BLOOD UREA NITROGEN 55.8 mg/dL (7-18); CALCIUM 8.7 mg/dL (8.5-10.1)
[2021-06-13 08:09] LABS: BILIRUBIN,TOTAL 1.5 mg/dL (0.2-1); TOT PROT 6.5 g/dl (6.4-8.2)
[2021-06-13] MEDS: SODIUM BICARBONATE 650 MG TABLET PO SCH (09:47)
[2021-06-13] MEDS: ISOSORBIDE MONONITRATE 30 MG TAB.SR.24H (FP) PO SCH (09:47)
[2021-06-13] MEDS: LABETALOL HCL 200 MG TABLET (FP) PO SCH ×2 (09:47→21:16)
[2021-06-13] MEDS: PANTOPRAZOLE 20 MG TABLET PO SCH (09:47)
[2021-06-13] MEDS: ASPIRIN COATED 81 MG TABLET.EC PO SCH (09:47)
[2021-06-13] MEDS: MINERAL OIL/PET HY-PHL TOPICAL OINTMENT 454 GM JAR TP SCH ×2 (09:48→21:22)
[2021-06-13] MEDS ORDERED: ISOSORBIDE MONONITRATE 60 MG TAB.SR.24H (FP) PO ONE (15:23)
[2021-06-13] MEDS ORDERED: ISOSORBIDE MONONITRATE 30 MG TAB.SR.24H (FP) PO SCH (15:24)
[2021-06-13] MEDS ORDERED: traMADol HCL 50 MG TABLET PO ONE (22:45)
[2021-06-14] MEDS: BENZOCAINE 20 % GEL TUBE MM SCH ×3 (00:39→13:20)
[2021-06-14] MEDS: FUROSEMIDE 40 MG/4 ML INJECTABLE VIAL IVPUSH SCH ×2 (06:12→14:49)
[2021-06-14] MEDS: hydrALAZINE HCL 50 MG TABLET (FP) PO SCH ×2 (06:12→14:48)
[2021-06-14] MEDS: METOPROLOL TARTRATE 5 MG/5 ML VIAL IVPUSH PRN (06:13)
[2021-06-14] MEDS: INSULIN (LEVEMIR) 100 UNITS/ML UNITS SQ SCH (06:21)
[2021-06-14] MEDS: INSULIN SLIDING SCALE (NOVOLOG) 1 VIAL SQ SCH ×3 (06:21→17:56)
[2021-06-14 06:58] LABS: BASO % 0.6 % (0-2.0); EOS % 1.5 % (0-4.5); HEMATOCRIT 24.9 % (35.4-49); HEMOGLOBIN 7.8 GM/dL (11.7-16.9); LYMPH % 11.8 % (8-40); MCH 28.1 pg (25.7-33.7); MCHC 31.4 g/dl (32.0-35.9); MEAN CELL VOLUME 89.2 fl (80-96); MEAN PLT VOLUME 7.5 fl (7.5-11.1); MONO % 15.1 % (3.8-10.2); PLATELET COUNT 279 10^3/uL (134-434); RBC 2.79 M/mm3 (4.00-5.60); RDW 18.3 % (11.9-15.9); WHITE BLOOD COUNT 9.4 K/mm3 (4.0-10.0)
[2021-06-14 07:11] LABS: INR 1.2 (0.83-1.09); PROTHROMBIN TIME (PATIENT) 13.8 SEC (9.7-13.0)
[2021-06-14 08:06] LABS: ALBUMIN 2.8 g/dl (3.4-5.0); BLOOD UREA NITROGEN 47.4 mg/dL (7-18)
[2021-06-14 08:07] LABS: BILIRUBIN,TOTAL 0.9 mg/dL (0.2-1); TOT PROT 6.2 g/dl (6.4-8.2)
[2021-06-14 08:11] LABS: CALCIUM 8.5 mg/dL (8.5-10.1)
[2021-06-14 08:12] LABS: MAGNESIUM 2.3 mg/dL (1.8-2.4)
[2021-06-14] MEDS ORDERED: METOPROLOL TARTRATE 5 MG/5 ML VIAL IVPUSH ONE (09:28)
[2021-06-14] MEDS: ASPIRIN COATED 81 MG TABLET.EC PO SCH (09:44)
[2021-06-14] MEDS: PANTOPRAZOLE 20 MG TABLET PO SCH (09:44)
[2021-06-14] MEDS: LABETALOL HCL 200 MG TABLET (FP) PO SCH (09:44)
[2021-06-14] MEDS: MINERAL OIL/PET HY-PHL TOPICAL OINTMENT 454 GM JAR TP SCH (09:45)
[2021-06-14 10:10] VITALS: TEMP 98.6
[2021-06-14 14:55] VITALS: BP 159/95; PULSE 128
[2021-06-14] MEDS ORDERED: LABETALOL HCL 200 MG TABLET (FP) PO SCH (22:00)
[2021-06-14] MEDS ORDERED: COLCHICINE 0.6 MG CAPSULE PO SCH (22:00)
== END 2021-06-14 18:43 | disposition left against medical advice (07) | DRG 816 ==
LOC: JER 07:32 → JERBED 11:40 → JICU 18:01 → J4W 06-07 19:39
PROVIDERS: ADMIT Internal Medicine; ATTEND Nurse Practitioner Acute Care
PROC: 5A09357 Assistance with Respiratory Ventilation, Less than 24 Consecutive Hours, Continuous Positive Airway Pressure (ICD-10-PCS; principal; 2021-06-03)
DX: T40.5X1A Poisoning by cocaine, accidental (unintentional), initial encounter (principal); J96.21 Acute and chronic respiratory failure with hypoxia; N17.9 Acute kidney failure, unspecified; I50.33 Acute on chronic diastolic (congestive) heart failure; E11.22 Type 2 diabetes mellitus with diabetic chronic kidney disease; I27.20 Pulmonary hypertension, unspecified; J44.1 Chronic obstructive pulmonary disease with (acute) exacerbation; E87.5 Hyperkalemia; I13.0 Hypertensive heart and chronic kidney disease with heart failure and stage 1 through stage 4 chronic kidney disease, or unspecified chronic kidney disease; E87.1 Hypo-osmolality and hyponatremia; E11.65 Type 2 diabetes mellitus with hyperglycemia; I48.92 Unspecified atrial flutter; I16.1 Hypertensive emergency; F14.120 Cocaine abuse with intoxication, uncomplicated; N18.30 Chronic kidney disease, stage 3 unspecified; I25.10 Atherosclerotic heart disease of native coronary artery without angina pectoris; I25.2 Old myocardial infarction; Z79.84 Long term (current) use of oral hypoglycemic drugs; I73.9 Peripheral vascular disease, unspecified; Z91.14 Patient's other noncompliance with medication regimen; I71.4 Abdominal aortic aneurysm, without rupture; D64.9 Anemia, unspecified; R74.8 Abnormal levels of other serum enzymes; R42 Dizziness and giddiness; I48.91 Unspecified atrial fibrillation; F10.20 Alcohol dependence, uncomplicated; F19.10 Other psychoactive substance abuse, uncomplicated
CPT/HCPCS: 36415; 71045-TC-FY; 76705-TC; 76775-TC; 80048; 80053; 80076; 80307; 81003; 82150; 82375; 82550; 82728; 82803; 82962; 83036; 83516; 83540; 83550; 83605; 83690; 83735; 83880; 84100; 84132; 84443; 84484; 85025; 85379; 85610; 85730; 86038; 86140; 86704; 86709; 86803; 87340; 87517; 93005; 93010; 93306-TC; 94640; 94660; 99291; C9803-CS; J1644; U0003; U0005

== ENCOUNTER 2021-06-17 09:42 | Inpatient (IN) | payer OTHER ==
[2021-06-17] MEDS ORDERED: ACETAMINOPHEN 1000 MG/100 ML BAG IVPB ONE (11:45)
[2021-06-17] MEDS ORDERED: ACETAMINOPHEN INJECTION 100 ML IVPB ONE (11:58)
[2021-06-17 12:04] LABS: BASO % 0.2 % (0-2.0); EOS % 0.2 % (0-4.5); HEMOGLOBIN 8.6 GM/dL (11.7-16.9); LYMPH % 5.1 % (8-40); MCH 28.4 pg (25.7-33.7); MEAN CELL VOLUME 88.8 fl (80-96); MEAN PLT VOLUME 7.4 fl (7.5-11.1); MONO % 10.3 % (3.8-10.2); NEUT % 84.2 % (42.8-82.8); PLATELET COUNT 278 10^3/uL (134-434); RBC 3.04 M/mm3 (4.00-5.60); RDW 19.1 % (11.9-15.9)
[2021-06-17 12:33] LABS: ALBUMIN 3.1 g/dl (3.4-5.0); BLOOD UREA NITROGEN 58.1 mg/dL (7-18)
[2021-06-17 12:35] LABS: METHADONE, UR NEGATIVE (NEGATIVE); OPIATES, URI NEGATIVE (NEGATIVE); PHENCYCLIDINE,URINE NEGATIVE (NEGATIVE); URINE BENZODIAZEPINES NEGATIVE (NEGATIVE)
[2021-06-17 12:37] LABS: BILIRUBIN,TOTAL 1.2 mg/dL (0.2-1); CREATININE 2.5 mg/dL (0.55-1.3)
[2021-06-17 12:39] LABS: TOT PROT 6.9 g/dl (6.4-8.2)
[2021-06-17] MEDS ORDERED: FUROSEMIDE 40 MG/4 ML INJECTABLE VIAL IVPUSH ONE (12:58)
[2021-06-17 13:06] LABS: COCAINE, UR POSITIVE (NEGATIVE); URINE AMPHETAMINES NEGATIVE (NEGATIVE); URINE BARBITURATES NEGATIVE (NEGATIVE)
[2021-06-17] MEDS ORDERED: FUROSEMIDE 40 MG/4 ML INJECTABLE VIAL ONE (13:55)
[2021-06-17] MEDS ORDERED: PIPERACILLIN/TAZOB 3.375 GM 3.375 GM in DEXTROSE 5%-WATER - 50 ML IVPB SCH ×3 (14:15→18:00)
[2021-06-17] MEDS: SODIUM BICARBONATE 650 MG TABLET PO SCH (15:52)
[2021-06-17] MEDS ORDERED: ISOSORBIDE MONONITRATE 60 MG TAB.SR.24H (FP) PO ONE (16:30)
[2021-06-17] MEDS ORDERED: hydrALAZINE HCL 50 MG TABLET (FP) ONE ×2 (16:31→22:07)
[2021-06-17] MEDS: ISOSORBIDE MONONITRATE 60 MG TAB.SR.24H (FP) PO SCH (16:32)
[2021-06-17] MEDS: hydrALAZINE HCL 50 MG TABLET (FP) PO SCH ×2 (16:32→22:12)
[2021-06-17] MEDS: OSELTAMIVIR PHOSPHATE 75 MG CAPSULE PO SCH (17:53)
[2021-06-17 21:23] LABS: EPI CELLS 3 /uL (0-25.1); HYALINE CASTS 0 /uL (0-3.1); URINE APPEARANCE CLEAR; URINE BACTERIA 16 /uL (0-1359); URINE BILIRUBIN NEGATIVE (NEGATIVE); URINE COLOR YELLOW; URINE GLUCOSE (UA) NEGATIVE (NEGATIVE); URINE KETONE NEGATIVE (NEGATIVE); URINE LEUK ESTERASE NEGATIVE (NEGATIVE); URINE NITRITE NEGATIVE (NEGATIVE); URINE PROTEIN 2+ (NEGATIVE); URINE RBC 420 /uL (0-23.9); URINE WBC 8 /uL (0-25.8)
[2021-06-17] MEDS ORDERED: LABETALOL HCL 200 MG TABLET (FP) PO SCH ×2 (22:00)
[2021-06-17] MEDS ORDERED: LABETALOL HCL 100 MG TABLET (FP) ONE (22:07)
[2021-06-18] MEDS ORDERED: ACETAMINOPHEN 500 MG TABLET (FP) PO ONE (00:23)
[2021-06-18 02:27] VITALS: BMI 34.8
[2021-06-18] MEDS: hydrALAZINE HCL 50 MG TABLET (FP) PO SCH ×3 (05:47→21:42)
[2021-06-18] MEDS: FUROSEMIDE 40 MG/4 ML INJECTABLE VIAL IVPUSH SCH ×2 (05:47→15:27)
[2021-06-18] MEDS: INSULIN SLIDING SCALE (NOVOLOG) 1 VIAL SQ SCH ×4 (06:06→21:57)
[2021-06-18] MEDS: ISOSORBIDE MONONITRATE 60 MG TAB.SR.24H (FP) PO SCH (09:30)
[2021-06-18] MEDS: SODIUM BICARBONATE 650 MG TABLET PO SCH (09:30)
[2021-06-18] MEDS: BUDESONIDE/FORMETEROL FUMARATE 80/4.5 mcg INHALER IH SCH ×2 (09:38→21:43)
[2021-06-18] MEDS: OSELTAMIVIR PHOSPHATE 75 MG CAPSULE PO SCH ×2 (11:38→21:44)
[2021-06-18] MEDS: methylPREDNISolone NA SUCC 40 MG/1 ML VIAL IVPUSH SCH ×2 (15:27→21:43)
[2021-06-18] MEDS: METOPROLOL TARTRATE 5 MG/5 ML VIAL IVPUSH PRN (18:07)
[2021-06-18] MEDS ORDERED: DEXTROSE 5%-WATER - 50 ML IVPB ONE (19:25)
[2021-06-18] MEDS ORDERED: PIPERACILLIN/TAZOBACTAM 3.375 GM VIAL IVPB ONE (19:25)
[2021-06-18] MEDS: PIPERACILLIN/TAZOB 3.375 GM 3.375 GM in DEXTROSE 5%-WATER - 50 ML IVPB SCH (19:54)
[2021-06-18] MEDS ORDERED: ACETAMINOPHEN 325 MG TABLET (FP) PO PRN (20:28)
[2021-06-18] MEDS: HEPARIN NA (PORCINE) 5,000 UNITS/ML 1ML VIAL SQ SCH (21:43)
[2021-06-18] MEDS: guaiFENesin 600 MG TABLET.ER (FP) PO SCH (21:43)
[2021-06-19] MEDS ORDERED: DEXTROSE 5%-WATER - 50 ML IVPB ONE ×2 (01:21→10:28)
[2021-06-19] MEDS ORDERED: PIPERACILLIN/TAZOBACTAM 3.375 GM VIAL IVPB ONE ×2 (01:21→10:28)
[2021-06-19] MEDS: PIPERACILLIN/TAZOB 3.375 GM 3.375 GM in DEXTROSE 5%-WATER - 50 ML IVPB SCH ×3 (02:13→18:00)
[2021-06-19] MEDS: methylPREDNISolone NA SUCC 40 MG/1 ML VIAL IVPUSH SCH ×4 (02:13→21:33)
[2021-06-19] MEDS: HEPARIN NA (PORCINE) 5,000 UNITS/ML 1ML VIAL SQ SCH ×3 (06:06→21:34)
[2021-06-19] MEDS: FUROSEMIDE 40 MG/4 ML INJECTABLE VIAL IVPUSH SCH ×2 (06:06→14:37)
[2021-06-19] MEDS: hydrALAZINE HCL 50 MG TABLET (FP) PO SCH ×3 (06:06→21:34)
[2021-06-19] MEDS: INSULIN SLIDING SCALE (NOVOLOG) 1 VIAL SQ SCH ×4 (06:07→21:35)
[2021-06-19 07:43] LABS: CHLORIDE 94 mmol/L (98-107); SODIUM 126 mmol/L (136-145)
[2021-06-19 07:45] LABS: ANION GAP 9 MMOL/L (8-16); BLOOD UREA NITROGEN 64.7 mg/dL (7-18); CALCIUM 7.8 mg/dL (8.5-10.1); CO2 22 mmol/L (21-32)
[2021-06-19 07:46] LABS: ALBUMIN 2.9 g/dl (3.4-5.0)
[2021-06-19 07:48] LABS: SGPT/ALT 422 U/L (13-61); TOTAL IRON BINDING CAPACITY 342 ug/dL (250-450)
[2021-06-19 07:50] LABS: IRON SERUM 42 ug/dL (50-175); SGOT/AST 207 U/L (15-37); TOT PROT 6.6 g/dl (6.4-8.2)
[2021-06-19 07:52] LABS: ALK PHOS 344 U/L (45-117)
[2021-06-19 07:55] LABS: GLUCOSE,RANDOM 473 mg/dL (74-106)
[2021-06-19 08:01] LABS: HEMATOCRIT 25.1 % (35.4-49); HEMOGLOBIN 8.1 GM/dL (11.7-16.9); MCHC 32.3 g/dl (32.0-35.9); MEAN CELL VOLUME 89.6 fl (80-96); MEAN PLT VOLUME 7.7 fl (7.5-11.1); PLATELET COUNT 216 10^3/uL (134-434); RDW 19.5 % (11.9-15.9); WHITE BLOOD COUNT 5.8 K/mm3 (4.0-10.0)
[2021-06-19 08:18] LABS: INR 1.32 (0.83-1.09); PROTHROMBIN TIME (PATIENT) 15.2 SEC (9.7-13.0)
[2021-06-19 09:57] LABS: ANISOCYTOSIS 1+; MACROCYTOSIS 1+; OVALOCYTE 1+
[2021-06-19] MEDS: BUDESONIDE/FORMETEROL FUMARATE 80/4.5 mcg INHALER IH SCH ×2 (10:02→21:33)
[2021-06-19] MEDS: ISOSORBIDE MONONITRATE 60 MG TAB.SR.24H (FP) PO SCH (10:31)
[2021-06-19] MEDS: OSELTAMIVIR PHOSPHATE 75 MG CAPSULE PO SCH ×2 (10:31→21:39)
[2021-06-19] MEDS: guaiFENesin 600 MG TABLET.ER (FP) PO SCH ×2 (10:31→21:33)
[2021-06-19] MEDS: SODIUM BICARBONATE 650 MG TABLET PO SCH (10:31)
[2021-06-19] MEDS: INSULIN (NOVOLOG MIX 70/30) 100 UNITS/ML MDV SQ SCH ×2 (12:02→17:59)
[2021-06-19] MEDS: DOCUSATE SODIUM 100 MG CAPSULE (FP) PO SCH (21:33)
[2021-06-19] MEDS: INSULIN (LEVEMIR) 100 UNITS/ML UNITS SQ SCH (21:34)
[2021-06-19] MEDS: POLYETHYLENE GLYCOL (HEALTHYLAX) 3350 17 GM PACKET PO SCH (21:35)
[2021-06-20] MEDS ORDERED: DEXTROSE 5%-WATER - 50 ML IVPB ONE ×5 (03:05→21:56)
[2021-06-20] MEDS ORDERED: PIPERACILLIN/TAZOBACTAM 3.375 GM VIAL IVPB ONE ×5 (03:05→21:56)
[2021-06-20] MEDS: methylPREDNISolone NA SUCC 40 MG/1 ML VIAL IVPUSH SCH ×4 (03:07→22:28)
[2021-06-20] MEDS: PIPERACILLIN/TAZOB 3.375 GM 3.375 GM in DEXTROSE 5%-WATER - 50 ML IVPB SCH ×3 (03:07→17:53)
[2021-06-20] MEDS: DOCUSATE SODIUM 100 MG CAPSULE (FP) PO SCH (06:25)
[2021-06-20] MEDS: HEPARIN NA (PORCINE) 5,000 UNITS/ML 1ML VIAL SQ SCH ×3 (06:25→22:32)
[2021-06-20] MEDS: hydrALAZINE HCL 50 MG TABLET (FP) PO SCH ×3 (06:25→22:28)
[2021-06-20] MEDS: FUROSEMIDE 40 MG/4 ML INJECTABLE VIAL IVPUSH SCH ×2 (06:25→14:12)
[2021-06-20] MEDS: INSULIN SLIDING SCALE (NOVOLOG) 1 VIAL SQ SCH ×4 (06:26→22:52)
[2021-06-20] MEDS: ALBUTEROL SO4 2.5/IPRATROPIUM 0.5 INH SOL 3 ML VIAL.NEB. NEB PRN ×3 (06:33→20:24)
[2021-06-20] MEDS: INSULIN (NOVOLOG MIX 70/30) 100 UNITS/ML MDV SQ SCH ×3 (06:39→16:48)
[2021-06-20 07:42] LABS: HEMATOCRIT 26.9 % (35.4-49); HEMOGLOBIN 8.4 GM/dL (11.7-16.9); MCH 28.2 pg (25.7-33.7); MCHC 31.4 g/dl (32.0-35.9); MEAN PLT VOLUME 7.9 fl (7.5-11.1); PLATELET COUNT 249 10^3/uL (134-434); RBC 2.99 M/mm3 (4.00-5.60); RDW 19.3 % (11.9-15.9)
[2021-06-20 08:03] LABS: ALBUMIN 2.9 g/dl (3.4-5.0); BLOOD UREA NITROGEN 78.4 mg/dL (7-18); CALCIUM 8.3 mg/dL (8.5-10.1); MAGNESIUM 2.6 mg/dL (1.8-2.4)
[2021-06-20 08:09] LABS: BILIRUBIN,TOTAL 1.1 mg/dL (0.2-1); TOT PROT 6.9 g/dl (6.4-8.2)
[2021-06-20] MEDS: BUDESONIDE/FORMETEROL FUMARATE 80/4.5 mcg INHALER IH SCH ×2 (09:30→22:52)
[2021-06-20] MEDS: OSELTAMIVIR PHOSPHATE 75 MG CAPSULE PO SCH ×2 (09:43→23:30)
[2021-06-20] MEDS: ISOSORBIDE MONONITRATE 60 MG TAB.SR.24H (FP) PO SCH (09:43)
[2021-06-20] MEDS: POLYETHYLENE GLYCOL (HEALTHYLAX) 3350 17 GM PACKET PO SCH ×3 (09:43→22:30)
[2021-06-20] MEDS: INSULIN (LEVEMIR) 100 UNITS/ML UNITS SQ SCH ×2 (09:43→22:30)
[2021-06-20] MEDS: guaiFENesin 600 MG TABLET.ER (FP) PO SCH ×2 (09:43→22:28)
[2021-06-20 10:37] LABS: ANISOCYTOSIS 2+; MACROCYTOSIS 2+; OVALOCYTE 2+
[2021-06-21] MEDS: PIPERACILLIN/TAZOB 3.375 GM 3.375 GM in DEXTROSE 5%-WATER - 50 ML IVPB SCH ×3 (01:35→17:36)
[2021-06-21] MEDS: METOPROLOL TARTRATE 5 MG/5 ML VIAL IVPUSH PRN (02:19)
[2021-06-21] MEDS: methylPREDNISolone NA SUCC 40 MG/1 ML VIAL IVPUSH SCH ×4 (02:24→21:37)
[2021-06-21] MEDS: ALBUTEROL SO4 2.5/IPRATROPIUM 0.5 INH SOL 3 ML VIAL.NEB. NEB PRN (02:37)
[2021-06-21] MEDS ORDERED: METOPROLOL TARTRATE 5 MG/5 ML VIAL IVPUSH ONE (03:45)
[2021-06-21] MEDS: hydrALAZINE HCL 50 MG TABLET (FP) PO SCH ×3 (06:45→21:36)
[2021-06-21] MEDS: FUROSEMIDE 40 MG/4 ML INJECTABLE VIAL IVPUSH SCH ×2 (06:45→15:50)
[2021-06-21] MEDS: HEPARIN NA (PORCINE) 5,000 UNITS/ML 1ML VIAL SQ SCH (06:45)
[2021-06-21] MEDS: INSULIN (NOVOLOG MIX 70/30) 100 UNITS/ML MDV SQ SCH ×3 (06:46→17:38)
[2021-06-21] MEDS: POLYETHYLENE GLYCOL (HEALTHYLAX) 3350 17 GM PACKET PO SCH ×3 (06:46→21:38)
[2021-06-21] MEDS: INSULIN SLIDING SCALE (NOVOLOG) 1 VIAL SQ SCH ×4 (06:51→21:37)
[2021-06-21 08:11] LABS: HEMATOCRIT 30.1 % (35.4-49); HEMOGLOBIN 9.2 GM/dL (11.7-16.9); MCH 28.1 pg (25.7-33.7); MCHC 30.6 g/dl (32.0-35.9); MEAN CELL VOLUME 91.6 fl (80-96); MEAN PLT VOLUME 8.2 fl (7.5-11.1); PLATELET COUNT 280 10^3/uL (134-434); RBC 3.29 M/mm3 (4.00-5.60); WHITE BLOOD COUNT 11.4 K/mm3 (4.0-10.0)
[2021-06-21 08:32] LABS: ALBUMIN 3.1 g/dl (3.4-5.0); BLOOD UREA NITROGEN 84.7 mg/dL (7-18); CALCIUM 8.5 mg/dL (8.5-10.1); MAGNESIUM 2.6 mg/dL (1.8-2.4)
[2021-06-21 08:34] LABS: CREATININE 3.2 mg/dL (0.55-1.3)
[2021-06-21 08:36] LABS: TOT PROT 7.1 g/dl (6.4-8.2)
[2021-06-21] MEDS ORDERED: PIPERACILLIN/TAZOBACTAM 3.375 GM VIAL IVPB ONE ×2 (09:21→17:11)
[2021-06-21] MEDS ORDERED: DEXTROSE 5%-WATER - 50 ML IVPB ONE ×2 (09:21→17:11)
[2021-06-21 09:26] LABS: ANISOCYTOSIS 0; MACROCYTOSIS 0
[2021-06-21] MEDS ORDERED: dilTIAZem HCL 25 MG/5 ML - 5 ML VIAL IVPUSH ONE (09:30)
[2021-06-21] MEDS: guaiFENesin 600 MG TABLET.ER (FP) PO SCH ×2 (09:44→21:36)
[2021-06-21] MEDS: ISOSORBIDE MONONITRATE 60 MG TAB.SR.24H (FP) PO SCH (09:44)
[2021-06-21] MEDS: INSULIN (LEVEMIR) 100 UNITS/ML UNITS SQ SCH ×2 (09:53→21:37)
[2021-06-21] MEDS: BUDESONIDE/FORMETEROL FUMARATE 80/4.5 mcg INHALER IH SCH ×2 (09:53→21:38)
[2021-06-21] MEDS: OSELTAMIVIR PHOSPHATE 75 MG CAPSULE PO SCH ×2 (09:55→21:39)
[2021-06-21] MEDS ORDERED: FUROSEMIDE 40 MG/4 ML INJECTABLE VIAL IVPUSH ONE (09:57)
[2021-06-21] MEDS ORDERED: HEPARIN NA (PORCINE) 5,000 UNITS/ML 1ML VIAL IVPUSH PRN ×2 (10:37)
[2021-06-21] MEDS: HEPARIN SOD,PORK IN 0.45% NACL 25,000 UNITS/500 ML INFUS.BAG IVPB SCH (12:10)
[2021-06-22] MEDS ORDERED: PIPERACILLIN/TAZOBACTAM 3.375 GM VIAL IVPB ONE ×3 (00:38→15:43)
[2021-06-22] MEDS ORDERED: DEXTROSE 5%-WATER - 50 ML IVPB ONE ×3 (00:38→15:43)
[2021-06-22] MEDS: PIPERACILLIN/TAZOB 3.375 GM 3.375 GM in DEXTROSE 5%-WATER - 50 ML IVPB SCH ×3 (02:00→17:02)
[2021-06-22] MEDS: methylPREDNISolone NA SUCC 40 MG/1 ML VIAL IVPUSH SCH ×4 (03:14→21:04)
[2021-06-22] MEDS: hydrALAZINE HCL 50 MG TABLET (FP) PO SCH ×3 (06:08→21:04)
[2021-06-22] MEDS: FUROSEMIDE 40 MG/4 ML INJECTABLE VIAL IVPUSH SCH ×2 (06:08→13:15)
[2021-06-22] MEDS: INSULIN SLIDING SCALE (NOVOLOG) 1 VIAL SQ SCH ×4 (06:16→21:04)
[2021-06-22] MEDS: INSULIN (NOVOLOG MIX 70/30) 100 UNITS/ML MDV SQ SCH ×3 (06:16→16:30)
[2021-06-22] MEDS: POLYETHYLENE GLYCOL (HEALTHYLAX) 3350 17 GM PACKET PO SCH ×4 (06:22→21:05)
[2021-06-22] MEDS: ALBUTEROL SO4 2.5/IPRATROPIUM 0.5 INH SOL 3 ML VIAL.NEB. NEB PRN ×2 (08:20→23:09)
[2021-06-22] MEDS: ISOSORBIDE MONONITRATE 60 MG TAB.SR.24H (FP) PO SCH (10:21)
[2021-06-22] MEDS: OSELTAMIVIR PHOSPHATE 75 MG CAPSULE PO SCH ×2 (10:21→21:06)
[2021-06-22] MEDS: guaiFENesin 600 MG TABLET.ER (FP) PO SCH ×2 (10:21→21:05)
[2021-06-22] MEDS: BUDESONIDE/FORMETEROL FUMARATE 80/4.5 mcg INHALER IH SCH ×2 (10:22→21:12)
[2021-06-22] MEDS: HEPARIN SOD,PORK IN 0.45% NACL 25,000 UNITS/500 ML INFUS.BAG IVPB SCH (10:22)
[2021-06-22] MEDS: INSULIN (LEVEMIR) 100 UNITS/ML UNITS SQ SCH ×2 (10:26→21:05)
[2021-06-22 13:29] LABS: HEMATOCRIT 29.8 % (35.4-49); HEMOGLOBIN 9.2 GM/dL (11.7-16.9); MCH 27.9 pg (25.7-33.7); MCHC 30.8 g/dl (32.0-35.9); MEAN CELL VOLUME 90.7 fl (80-96); MEAN PLT VOLUME 8.3 fl (7.5-11.1); PLATELET COUNT 281 10^3/uL (134-434); RBC 3.28 M/mm3 (4.00-5.60); RDW 19.2 % (11.9-15.9); WHITE BLOOD COUNT 12.9 K/mm3 (4.0-10.0)
[2021-06-22 13:36] LABS: CALCIUM 8.7 mg/dL (8.5-10.1)
[2021-06-22 13:37] LABS: ALBUMIN 2.8 g/dl (3.4-5.0); BLOOD UREA NITROGEN 80.5 mg/dL (7-18)
[2021-06-22 13:40] LABS: CREATININE 2.9 mg/dL (0.55-1.3)
[2021-06-22 13:41] LABS: BILIRUBIN,TOTAL 0.7 mg/dL (0.2-1); TOT PROT 6.9 g/dl (6.4-8.2)
[2021-06-22 14:57] LABS: ANISOCYTOSIS 2+; MACROCYTOSIS 0; TARGET CELLS 2+
[2021-06-22] MEDS: METOPROLOL TARTRATE 5 MG/5 ML VIAL IVPUSH PRN (23:30)
[2021-06-23] MEDS ORDERED: DEXTROSE 5%-WATER - 50 ML IVPB ONE ×3 (00:38→16:08)
[2021-06-23] MEDS ORDERED: PIPERACILLIN/TAZOBACTAM 3.375 GM VIAL IVPB ONE ×3 (00:38→16:08)
[2021-06-23] MEDS: PIPERACILLIN/TAZOB 3.375 GM 3.375 GM in DEXTROSE 5%-WATER - 50 ML IVPB SCH ×3 (01:15→17:01)
[2021-06-23] MEDS: methylPREDNISolone NA SUCC 40 MG/1 ML VIAL IVPUSH SCH ×4 (02:30→21:57)
[2021-06-23] MEDS: ALBUTEROL SO4 2.5/IPRATROPIUM 0.5 INH SOL 3 ML VIAL.NEB. NEB PRN ×4 (03:00→20:00)
[2021-06-23] MEDS: POLYETHYLENE GLYCOL (HEALTHYLAX) 3350 17 GM PACKET PO SCH ×3 (05:37→22:16)
[2021-06-23] MEDS: FUROSEMIDE 40 MG/4 ML INJECTABLE VIAL IVPUSH SCH ×3 (05:55→21:57)
[2021-06-23] MEDS: hydrALAZINE HCL 50 MG TABLET (FP) PO SCH ×3 (05:55→21:57)
[2021-06-23] MEDS ORDERED: guaiFENesin/D-M SUGAR-FREE/ACLHOL-FREE 118 ML BOTTLE PO PRN (06:08)
[2021-06-23] MEDS ORDERED: ALBUTEROL SO4 2.5/IPRATROPIUM 0.5 INH SOL 3 ML VIAL.NEB. NEB ONE (06:08)
[2021-06-23] MEDS: INSULIN (NOVOLOG MIX 70/30) 100 UNITS/ML MDV SQ SCH ×3 (06:10→16:29)
[2021-06-23] MEDS: INSULIN SLIDING SCALE (NOVOLOG) 1 VIAL SQ SCH ×4 (06:10→22:16)
[2021-06-23] MEDS: INSULIN (LEVEMIR) 100 UNITS/ML UNITS SQ SCH ×2 (10:31→21:59)
[2021-06-23] MEDS: guaiFENesin 600 MG TABLET.ER (FP) PO SCH ×2 (10:31→21:58)
[2021-06-23] MEDS: ISOSORBIDE MONONITRATE 60 MG TAB.SR.24H (FP) PO SCH (10:32)
[2021-06-23] MEDS: OSELTAMIVIR PHOSPHATE 75 MG CAPSULE PO SCH (10:32)
[2021-06-23] MEDS: BUDESONIDE/FORMETEROL FUMARATE 80/4.5 mcg INHALER IH SCH ×2 (10:32→21:59)
[2021-06-23] MEDS: HEPARIN SOD,PORK IN 0.45% NACL 25,000 UNITS/500 ML INFUS.BAG IVPB SCH (11:00)
[2021-06-23] MEDS ORDERED: METOLAZONE 2.5 MG TABLET (FP) PO ONE (12:23)
[2021-06-23] MEDS ORDERED: INSULIN (NOVOLOG) ASPART 100 UNITS/ML 10ML VIAL ONE (18:39)
[2021-06-23] MEDS: METOPROLOL TARTRATE 5 MG/5 ML VIAL IVPUSH PRN (19:45)
[2021-06-24] MEDS: ALBUTEROL SO4 2.5/IPRATROPIUM 0.5 INH SOL 3 ML VIAL.NEB. NEB PRN ×5 (00:14→20:34)
[2021-06-24] MEDS ORDERED: PIPERACILLIN/TAZOBACTAM 3.375 GM VIAL IVPB ONE ×3 (01:02→15:48)
[2021-06-24] MEDS ORDERED: DEXTROSE 5%-WATER - 50 ML IVPB ONE ×3 (01:03→15:48)
[2021-06-24] MEDS: PIPERACILLIN/TAZOB 3.375 GM 3.375 GM in DEXTROSE 5%-WATER - 50 ML IVPB SCH ×3 (01:09→18:20)
[2021-06-24] MEDS: METOPROLOL TARTRATE 5 MG/5 ML VIAL IVPUSH PRN ×2 (01:51→06:37)
[2021-06-24] MEDS: methylPREDNISolone NA SUCC 40 MG/1 ML VIAL IVPUSH SCH ×4 (03:11→22:45)
[2021-06-24] MEDS ORDERED: hydrALAZINE HCL 20 MG/ML VIAL IVPUSH ONE ×2 (04:12→05:18)
[2021-06-24] MEDS: POLYETHYLENE GLYCOL (HEALTHYLAX) 3350 17 GM PACKET PO SCH ×3 (06:34→22:46)
[2021-06-24] MEDS: FUROSEMIDE 40 MG/4 ML INJECTABLE VIAL IVPUSH SCH (06:34)
[2021-06-24] MEDS: hydrALAZINE HCL 25 MG TABLET (FP) PO SCH ×3 (06:40→22:45)
[2021-06-24] MEDS: INSULIN (NOVOLOG MIX 70/30) 100 UNITS/ML MDV SQ SCH ×3 (06:41→18:24)
[2021-06-24] MEDS: INSULIN SLIDING SCALE (NOVOLOG) 1 VIAL SQ SCH ×4 (06:50→22:55)
[2021-06-24] MEDS: hydrALAZINE HCL 50 MG TABLET (FP) PO SCH (06:56)
[2021-06-24 07:48] LABS: HEMATOCRIT 31.4 % (35.4-49); HEMOGLOBIN 9.6 GM/dL (11.7-16.9); MCH 27.8 pg (25.7-33.7); MCHC 30.6 g/dl (32.0-35.9); MEAN PLT VOLUME 8.4 fl (7.5-11.1); PLATELET COUNT 354 10^3/uL (134-434); RBC 3.45 M/mm3 (4.00-5.60); RDW 19.4 % (11.9-15.9); WHITE BLOOD COUNT 14.3 K/mm3 (4.0-10.0)
[2021-06-24 07:57] LABS: CHLORIDE 93 mmol/L (98-107); SODIUM 132 mmol/L (136-145)
[2021-06-24 08:00] LABS: ANION GAP 9 MMOL/L (8-16); BLOOD UREA NITROGEN 71.7 mg/dL (7-18); CALCIUM 9.1 mg/dL (8.5-10.1); CO2 30 mmol/L (21-32)
[2021-06-24 08:01] LABS: ALBUMIN 3.3 g/dl (3.4-5.0)
[2021-06-24 08:03] LABS: CREATININE 2.3 mg/dL (0.55-1.3); SGOT/AST 45 U/L (15-37); SGPT/ALT 234 U/L (13-61)
[2021-06-24 08:05] LABS: TOT PROT 7.4 g/dl (6.4-8.2)
[2021-06-24 08:06] LABS: ALK PHOS 273 U/L (45-117)
[2021-06-24 08:07] LABS: BILIRUBIN,TOTAL 1.4 mg/dL (0.2-1)
[2021-06-24 08:13] LABS: GLUCOSE,RANDOM 416 mg/dL (74-106)
[2021-06-24] MEDS ORDERED: POTASSIUM CHLORIDE TABS 20 MEQ TABLET.ER (FP) PO ONE ×2 (08:14→16:00)
[2021-06-24] MEDS: INSULIN (LEVEMIR) 100 UNITS/ML UNITS SQ SCH ×2 (08:56→22:46)
[2021-06-24] MEDS ORDERED: FUROSEMIDE INJECTION 100 MG in SODIUM CHLORIDE 40 ML IVPB SCH (11:00)
[2021-06-24] MEDS: HEPARIN SOD,PORK IN 0.45% NACL 25,000 UNITS/500 ML INFUS.BAG IVPB SCH (11:57)
[2021-06-24] MEDS: guaiFENesin 600 MG TABLET.ER (FP) PO SCH ×2 (12:28→22:45)
[2021-06-24] MEDS: APIXABAN 5 MG TABLET PO SCH ×2 (12:28→22:45)
[2021-06-24] MEDS: BUDESONIDE/FORMETEROL FUMARATE 80/4.5 mcg INHALER IH SCH ×2 (12:28→22:46)
[2021-06-24] MEDS: ISOSORBIDE MONONITRATE 60 MG TAB.SR.24H (FP) PO SCH (12:28)
[2021-06-24] MEDS: FUROSEMIDE INJECTION 100 MG in SODIUM CHLORIDE 40 ML IVPB SCH ×2 (12:59→20:24)
[2021-06-24] MEDS ORDERED: METOLAZONE 5 MG TABLET PO ONE (13:30)
[2021-06-25] MEDS: methylPREDNISolone NA SUCC 40 MG/1 ML VIAL IVPUSH SCH ×3 (02:19→13:59)
[2021-06-25] MEDS: FUROSEMIDE INJECTION 100 MG in SODIUM CHLORIDE 40 ML IVPB SCH ×2 (02:20→12:08)
[2021-06-25] MEDS: METOPROLOL TARTRATE 5 MG/5 ML VIAL IVPUSH PRN (05:25)
[2021-06-25] MEDS: hydrALAZINE HCL 25 MG TABLET (FP) PO SCH ×3 (06:57→21:50)
[2021-06-25] MEDS: POLYETHYLENE GLYCOL (HEALTHYLAX) 3350 17 GM PACKET PO SCH ×3 (06:58→21:50)
[2021-06-25] MEDS: INSULIN (LEVEMIR) 100 UNITS/ML UNITS SQ SCH ×2 (07:06→21:54)
[2021-06-25] MEDS: INSULIN SLIDING SCALE (NOVOLOG) 1 VIAL SQ SCH ×4 (07:06→21:53)
[2021-06-25] MEDS: INSULIN (NOVOLOG MIX 70/30) 100 UNITS/ML MDV SQ SCH ×3 (07:06→17:43)
[2021-06-25] MEDS: ALBUTEROL SO4 2.5/IPRATROPIUM 0.5 INH SOL 3 ML VIAL.NEB. NEB PRN ×2 (09:42→20:10)
[2021-06-25] MEDS: ISOSORBIDE MONONITRATE 60 MG TAB.SR.24H (FP) PO SCH (10:00)
[2021-06-25] MEDS: guaiFENesin 600 MG TABLET.ER (FP) PO SCH ×2 (10:00→21:50)
[2021-06-25] MEDS: APIXABAN 5 MG TABLET PO SCH ×2 (10:00→21:50)
[2021-06-25] MEDS: BUDESONIDE/FORMETEROL FUMARATE 80/4.5 mcg INHALER IH SCH ×2 (10:01→21:51)
[2021-06-25] MEDS ORDERED: SPIRONOLACTONE 25 MG TABLET PO ONE ×2 (11:30→16:30)
[2021-06-25 11:49] LABS: HEMATOCRIT 31.7 % (35.4-49); HEMOGLOBIN 10.3 GM/dL (11.7-16.9); MCH 28.5 pg (25.7-33.7); MCHC 32.3 g/dl (32.0-35.9); MEAN CELL VOLUME 88.1 fl (80-96); MEAN PLT VOLUME 7.6 fl (7.5-11.1); PLATELET COUNT 384 10^3/uL (134-434); RDW 19.3 % (11.9-15.9); WHITE BLOOD COUNT 14.2 K/mm3 (4.0-10.0)
[2021-06-25 12:08] LABS: CHLORIDE 84 mmol/L (98-107); SODIUM 132 mmol/L (136-145)
[2021-06-25 12:13] LABS: BLOOD UREA NITROGEN 75.3 mg/dL (7-18); CALCIUM 9.9 mg/dL (8.5-10.1)
[2021-06-25 12:14] LABS: ALBUMIN 3.2 g/dl (3.4-5.0); ANION GAP 11 MMOL/L (8-16); CO2 36 mmol/L (21-32)
[2021-06-25 12:17] LABS: BILIRUBIN,TOTAL 1.2 mg/dL (0.2-1); CREATININE 2.3 mg/dL (0.55-1.3); SGOT/AST 40 U/L (15-37); SGPT/ALT 205 U/L (13-61)
[2021-06-25 12:18] LABS: TOT PROT 7.4 g/dl (6.4-8.2)
[2021-06-25 12:19] LABS: ALK PHOS 298 U/L (45-117)
[2021-06-25 12:24] LABS: GLUCOSE,RANDOM 410 mg/dL (74-106)
[2021-06-25] MEDS ORDERED: POTASSIUM CHLORIDE TABS 20 MEQ TABLET.ER (FP) PO ONE (13:15)
[2021-06-25] MEDS: KCL 10 MEQ IVPB 10 MEQ/100 ML INFUS.BAG IVPB SCH ×3 (13:58→17:29)
[2021-06-25 19:53] LABS: INFLU A MOLECULAR Negative (Negative); INFLU B MOLECULAR Negative (Negative)
[2021-06-26] MEDS: methylPREDNISolone NA SUCC 40 MG/1 ML VIAL IVPUSH SCH ×3 (01:32→18:19)
[2021-06-26] MEDS: hydrALAZINE HCL 25 MG TABLET (FP) PO SCH ×3 (05:58→22:18)
[2021-06-26] MEDS: POLYETHYLENE GLYCOL (HEALTHYLAX) 3350 17 GM PACKET PO SCH ×3 (05:59→22:18)
[2021-06-26] MEDS: INSULIN (LEVEMIR) 100 UNITS/ML UNITS SQ SCH ×2 (06:02→22:18)
[2021-06-26] MEDS: INSULIN (NOVOLOG MIX 70/30) 100 UNITS/ML MDV SQ SCH ×3 (06:03→17:13)
[2021-06-26] MEDS: INSULIN SLIDING SCALE (NOVOLOG) 1 VIAL SQ SCH ×4 (06:05→22:19)
[2021-06-26 07:41] LABS: HEMATOCRIT 32.2 % (35.4-49); HEMOGLOBIN 10.3 GM/dL (11.7-16.9); MCH 28.3 pg (25.7-33.7); MCHC 31.9 g/dl (32.0-35.9); MEAN CELL VOLUME 88.6 fl (80-96); MEAN PLT VOLUME 7.5 fl (7.5-11.1); PLATELET COUNT 401 10^3/uL (134-434); RBC 3.63 M/mm3 (4.00-5.60); RDW 19.2 % (11.9-15.9); WHITE BLOOD COUNT 14.1 K/mm3 (4.0-10.0)
[2021-06-26 07:44] LABS: CHLORIDE 84 mmol/L (98-107); SODIUM 130 mmol/L (136-145)
[2021-06-26 07:48] LABS: CALCIUM 9.6 mg/dL (8.5-10.1)
[2021-06-26 07:49] LABS: ALBUMIN 3.2 g/dl (3.4-5.0); BLOOD UREA NITROGEN 71.2 mg/dL (7-18); CO2 37 mmol/L (21-32); GLUCOSE,RANDOM 324 mg/dL (74-106)
[2021-06-26 07:52] LABS: SGOT/AST 36 U/L (15-37); SGPT/ALT 174 U/L (13-61)
[2021-06-26 07:54] LABS: BILIRUBIN,TOTAL 1.5 mg/dL (0.2-1); TOT PROT 7.2 g/dl (6.4-8.2)
[2021-06-26 08:04] LABS: ALK PHOS 255 U/L (45-117); ANION GAP 9 MMOL/L (8-16)
[2021-06-26] MEDS ORDERED: POTASSIUM CHLORIDE TABS 20 MEQ TABLET.ER (FP) PO ONE ×3 (08:22→17:34)
[2021-06-26] MEDS ORDERED: dilTIAZem HCL 30 MG TABLET PO ONE (09:21)
[2021-06-26] MEDS: SPIRONOLACTONE 25 MG TABLET PO SCH ×2 (10:04→22:18)
[2021-06-26] MEDS: KCL 10 MEQ IVPB 10 MEQ/100 ML INFUS.BAG IVPB SCH ×3 (10:05→14:04)
[2021-06-26] MEDS: guaiFENesin 600 MG TABLET.ER (FP) PO SCH ×2 (10:05→22:18)
[2021-06-26] MEDS: ISOSORBIDE MONONITRATE 60 MG TAB.SR.24H (FP) PO SCH (10:05)
[2021-06-26] MEDS: APIXABAN 5 MG TABLET PO SCH ×2 (10:05→22:18)
[2021-06-26] MEDS: BUDESONIDE/FORMETEROL FUMARATE 80/4.5 mcg INHALER IH SCH ×2 (10:06→22:25)
[2021-06-26] MEDS: FUROSEMIDE INJECTION 100 MG in SODIUM CHLORIDE 40 ML IVPB SCH (11:32)
[2021-06-26] MEDS: dilTIAZem HCL 30 MG TABLET PO SCH ×2 (14:02→22:18)
[2021-06-26 17:05] LABS: CALCIUM 9.4 mg/dL (8.5-10.1)
[2021-06-26 17:06] LABS: BLOOD UREA NITROGEN 76.2 mg/dL (7-18)
[2021-06-26 17:09] LABS: CREATININE 2.3 mg/dL (0.55-1.3)
[2021-06-27] MEDS: methylPREDNISolone NA SUCC 40 MG/1 ML VIAL IVPUSH SCH ×2 (02:06→10:26)
[2021-06-27] MEDS: dilTIAZem HCL 30 MG TABLET PO SCH (06:22)
[2021-06-27] MEDS: POLYETHYLENE GLYCOL (HEALTHYLAX) 3350 17 GM PACKET PO SCH (06:22)
[2021-06-27] MEDS: hydrALAZINE HCL 25 MG TABLET (FP) PO SCH ×3 (06:22→21:51)
[2021-06-27] MEDS: INSULIN (NOVOLOG MIX 70/30) 100 UNITS/ML MDV SQ SCH ×3 (06:22→17:36)
[2021-06-27] MEDS: INSULIN (LEVEMIR) 100 UNITS/ML UNITS SQ SCH ×2 (06:22→21:51)
[2021-06-27] MEDS: INSULIN SLIDING SCALE (NOVOLOG) 1 VIAL SQ SCH ×4 (06:23→21:52)
[2021-06-27 07:56] LABS: HEMATOCRIT 32.5 % (35.4-49); HEMOGLOBIN 10.1 GM/dL (11.7-16.9); MCH 27.6 pg (25.7-33.7); MCHC 31.1 g/dl (32.0-35.9); MEAN CELL VOLUME 88.8 fl (80-96); MEAN PLT VOLUME 7.8 fl (7.5-11.1); PLATELET COUNT 430 10^3/uL (134-434); RBC 3.66 M/mm3 (4.00-5.60); RDW 19.1 % (11.9-15.9)
[2021-06-27] MEDS: ISOSORBIDE MONONITRATE 60 MG TAB.SR.24H (FP) PO SCH (10:27)
[2021-06-27] MEDS: APIXABAN 5 MG TABLET PO SCH ×2 (10:27→21:51)
[2021-06-27] MEDS: SPIRONOLACTONE 25 MG TABLET PO SCH ×2 (10:27→21:51)
[2021-06-27] MEDS: BUDESONIDE/FORMETEROL FUMARATE 80/4.5 mcg INHALER IH SCH ×2 (10:28→21:52)
[2021-06-27] MEDS: guaiFENesin 600 MG TABLET.ER (FP) PO SCH ×2 (10:28→21:51)
[2021-06-27] MEDS: FUROSEMIDE INJECTION 100 MG in SODIUM CHLORIDE 40 ML IVPB SCH (11:01)
[2021-06-27 12:08] LABS: BLOOD UREA NITROGEN 83.4 mg/dL (7-18); CALCIUM 9.7 mg/dL (8.5-10.1)
[2021-06-27 12:09] LABS: ALBUMIN 3.1 g/dl (3.4-5.0)
[2021-06-27 12:12] LABS: CREATININE 2.4 mg/dL (0.55-1.3)
[2021-06-27 12:13] LABS: BILIRUBIN,TOTAL 1.5 mg/dL (0.2-1); TOT PROT 6.7 g/dl (6.4-8.2)
[2021-06-27] MEDS ORDERED: POTASSIUM CHLORIDE TABS 20 MEQ TABLET.ER (FP) PO ONE ×2 (12:29→12:40)
[2021-06-27] MEDS: dilTIAZem HCL 60 MG TABLET PO SCH ×2 (14:27→21:51)
[2021-06-27] MEDS: ALBUTEROL SO4 2.5/IPRATROPIUM 0.5 INH SOL 3 ML VIAL.NEB. NEB PRN (23:44)
[2021-06-28] MEDS: dilTIAZem HCL 60 MG TABLET PO SCH ×3 (05:51→21:28)
[2021-06-28] MEDS: INSULIN (LEVEMIR) 100 UNITS/ML UNITS SQ SCH ×2 (06:01→21:35)
[2021-06-28] MEDS: hydrALAZINE HCL 50 MG TABLET (FP) PO SCH ×3 (06:01→21:28)
[2021-06-28] MEDS: INSULIN (NOVOLOG MIX 70/30) 100 UNITS/ML MDV SQ SCH ×4 (06:01→18:05)
[2021-06-28] MEDS: INSULIN SLIDING SCALE (NOVOLOG) 1 VIAL SQ SCH ×4 (06:02→21:35)
[2021-06-28 07:29] LABS: HEMATOCRIT 33.3 % (35.4-49); HEMOGLOBIN 10.2 GM/dL (11.7-16.9); MCH 27.6 pg (25.7-33.7); MCHC 30.7 g/dl (32.0-35.9); MEAN CELL VOLUME 89.7 fl (80-96); MEAN PLT VOLUME 8.1 fl (7.5-11.1); PLATELET COUNT 442 10^3/uL (134-434); RBC 3.71 M/mm3 (4.00-5.60); RDW 18.9 % (11.9-15.9); WHITE BLOOD COUNT 16.9 K/mm3 (4.0-10.0)
[2021-06-28 07:45] LABS: ALBUMIN 3.2 g/dl (3.4-5.0); BLOOD UREA NITROGEN 98.4 mg/dL (7-18); CALCIUM 9.3 mg/dL (8.5-10.1); MAGNESIUM 2.3 mg/dL (1.8-2.4)
[2021-06-28 07:48] LABS: CREATININE 2.6 mg/dL (0.55-1.3)
[2021-06-28 07:50] LABS: BILIRUBIN,TOTAL 1.6 mg/dL (0.2-1); TOT PROT 6.7 g/dl (6.4-8.2)
[2021-06-28 08:45] LABS: ANISOCYTOSIS 0; HELMET CELLS 0; HOWELL-JOLLY BODIES 0; MACROCYTOSIS 0; OVALOCYTE 0; ROULEAU 0; SICKELED CELLS 0; TARGET CELLS 0; TEAR DROP CELLS 0; TOXIC GRANULATION 0
[2021-06-28] MEDS ORDERED: methylPREDNISolone NA SUCC 40 MG/1 ML VIAL IVPUSH SCH (10:00)
[2021-06-28] MEDS: SPIRONOLACTONE 25 MG TABLET PO SCH ×2 (10:26→21:28)
[2021-06-28] MEDS: guaiFENesin 600 MG TABLET.ER (FP) PO SCH ×2 (10:26→21:30)
[2021-06-28] MEDS: ISOSORBIDE MONONITRATE 60 MG TAB.SR.24H (FP) PO SCH (10:26)
[2021-06-28] MEDS: BUDESONIDE/FORMETEROL FUMARATE 80/4.5 mcg INHALER IH SCH ×2 (10:27→21:33)
[2021-06-28] MEDS: APIXABAN 5 MG TABLET PO SCH ×2 (10:27→21:29)
[2021-06-28] MEDS: predniSONE 20 MG TABLET (UD) PO SCH (10:29)
[2021-06-28] MEDS: POLYETHYLENE GLYCOL (HEALTHYLAX) 3350 17 GM PACKET PO SCH (10:29)
[2021-06-28] MEDS ORDERED: FUROSEMIDE 40 MG/4 ML INJECTABLE VIAL IVPUSH SCH (14:00)
[2021-06-28] MEDS: FUROSEMIDE 40 MG/4 ML INJECTABLE VIAL IVPUSH SCH (14:40)
[2021-06-28] MEDS: ALBUTEROL SO4 2.5/IPRATROPIUM 0.5 INH SOL 3 ML VIAL.NEB. NEB PRN (20:05)
[2021-06-29] MEDS: dilTIAZem HCL 60 MG TABLET PO SCH ×3 (06:10→21:08)
[2021-06-29] MEDS: hydrALAZINE HCL 50 MG TABLET (FP) PO SCH ×3 (06:10→21:08)
[2021-06-29] MEDS: FUROSEMIDE 40 MG/4 ML INJECTABLE VIAL IVPUSH SCH (06:10)
[2021-06-29] MEDS: INSULIN (LEVEMIR) 100 UNITS/ML UNITS SQ SCH ×2 (06:10→21:09)
[2021-06-29] MEDS: INSULIN (NOVOLOG MIX 70/30) 100 UNITS/ML MDV SQ SCH ×3 (06:10→18:34)
[2021-06-29] MEDS: INSULIN SLIDING SCALE (NOVOLOG) 1 VIAL SQ SCH ×4 (06:11→21:08)
[2021-06-29 07:24] LABS: ALBUMIN 3.2 g/dl (3.4-5.0); CREATININE 2.3 mg/dL (0.55-1.3)
[2021-06-29 07:25] LABS: BLOOD UREA NITROGEN 89.8 mg/dL (7-18); CALCIUM 8.8 mg/dL (8.5-10.1)
[2021-06-29 07:26] LABS: BILIRUBIN,TOTAL 1.4 mg/dL (0.2-1); MAGNESIUM 2.3 mg/dL (1.8-2.4); TOT PROT 6.6 g/dl (6.4-8.2)
[2021-06-29 07:51] LABS: HEMATOCRIT 33.1 % (35.4-49); HEMOGLOBIN 10.1 GM/dL (11.7-16.9); MCH 27.3 pg (25.7-33.7); MCHC 30.5 g/dl (32.0-35.9); MEAN CELL VOLUME 89.6 fl (80-96); MEAN PLT VOLUME 8.1 fl (7.5-11.1); PLATELET COUNT 430 10^3/uL (134-434); RDW 18.6 % (11.9-15.9); WHITE BLOOD COUNT 17.1 K/mm3 (4.0-10.0)
[2021-06-29 08:36] LABS: ANISOCYTOSIS 1+; MACROCYTOSIS 1+
[2021-06-29] MEDS: ALBUTEROL SO4 2.5/IPRATROPIUM 0.5 INH SOL 3 ML VIAL.NEB. NEB PRN (09:11)
[2021-06-29] MEDS: guaiFENesin 600 MG TABLET.ER (FP) PO SCH ×2 (10:19→21:08)
[2021-06-29] MEDS: ISOSORBIDE MONONITRATE 60 MG TAB.SR.24H (FP) PO SCH (10:19)
[2021-06-29] MEDS: SPIRONOLACTONE 25 MG TABLET PO SCH ×2 (10:20→21:08)
[2021-06-29] MEDS: BUDESONIDE/FORMETEROL FUMARATE 80/4.5 mcg INHALER IH SCH ×2 (10:20→21:14)
[2021-06-29] MEDS: predniSONE 20 MG TABLET (UD) PO SCH (10:20)
[2021-06-29] MEDS: APIXABAN 5 MG TABLET PO SCH ×2 (10:20→21:08)
[2021-06-29] MEDS: FUROSEMIDE 20 MG TABLET (FP) PO SCH ×2 (10:20→15:39)
[2021-06-29] MEDS ORDERED: SIMETHICONE 80 MG TAB.CHEW (FP) PO PRN (10:21)
[2021-06-29] MEDS: POLYETHYLENE GLYCOL (HEALTHYLAX) 3350 17 GM PACKET PO SCH (10:22)
[2021-06-30] MEDS: ALBUTEROL SO4 2.5/IPRATROPIUM 0.5 INH SOL 3 ML VIAL.NEB. NEB PRN (00:15)
[2021-06-30] MEDS: FUROSEMIDE 20 MG TABLET (FP) PO SCH ×2 (06:31→14:04)
[2021-06-30] MEDS: hydrALAZINE HCL 50 MG TABLET (FP) PO SCH ×3 (06:32→22:08)
[2021-06-30] MEDS: dilTIAZem HCL 60 MG TABLET PO SCH (06:32)
[2021-06-30] MEDS: INSULIN SLIDING SCALE (NOVOLOG) 1 VIAL SQ SCH ×4 (06:32→22:07)
[2021-06-30] MEDS: INSULIN (LEVEMIR) 100 UNITS/ML UNITS SQ SCH (06:33)
[2021-06-30] MEDS: INSULIN (NOVOLOG MIX 70/30) 100 UNITS/ML MDV SQ SCH ×3 (06:34→17:06)
[2021-06-30 06:59] LABS: BASO % 0.2 % (0-2.0); EOS % 0.6 % (0-4.5); HEMATOCRIT 31.5 % (35.4-49); HEMOGLOBIN 9.8 GM/dL (11.7-16.9); LYMPH % 10.8 % (8-40); MEAN CELL VOLUME 90.2 fl (80-96); MONO % 9.9 % (3.8-10.2); NEUT % 78.5 % (42.8-82.8); PLATELET COUNT 399 10^3/uL (134-434); RDW 18.7 % (11.9-15.9); WHITE BLOOD COUNT 15.5 K/mm3 (4.0-10.0)
[2021-06-30 07:26] LABS: ALBUMIN 2.9 g/dl (3.4-5.0)
[2021-06-30 07:28] LABS: CALCIUM 8.7 mg/dL (8.5-10.1)
[2021-06-30 07:29] LABS: BLOOD UREA NITROGEN 77.5 mg/dL (7-18); MAGNESIUM 2.2 mg/dL (1.8-2.4)
[2021-06-30 07:33] LABS: BILIRUBIN,TOTAL 1.1 mg/dL (0.2-1); TOT PROT 6.1 g/dl (6.4-8.2)
[2021-06-30] MEDS: predniSONE 20 MG TABLET (UD) PO SCH (09:09)
[2021-06-30] MEDS: SPIRONOLACTONE 25 MG TABLET PO SCH ×2 (09:09→22:08)
[2021-06-30] MEDS: POLYETHYLENE GLYCOL (HEALTHYLAX) 3350 17 GM PACKET PO SCH (09:10)
[2021-06-30] MEDS: BUDESONIDE/FORMETEROL FUMARATE 80/4.5 mcg INHALER IH SCH ×2 (09:10→22:10)
[2021-06-30] MEDS: ISOSORBIDE MONONITRATE 60 MG TAB.SR.24H (FP) PO SCH (09:10)
[2021-06-30] MEDS: guaiFENesin 600 MG TABLET.ER (FP) PO SCH ×2 (09:10→22:08)
[2021-06-30] MEDS: APIXABAN 5 MG TABLET PO SCH ×2 (09:10→22:08)
[2021-06-30] MEDS ORDERED: INSULIN (LEVEMIR) 100 UNITS/ML UNITS SQ SCH ×2 (10:00→22:00)
[2021-06-30] MEDS: valACYclovir HCL 1000 MG TABLET PO SCH ×2 (11:41→22:09)
[2021-06-30] MEDS: dilTIAZem HCL 30 MG TABLET PO SCH ×2 (14:04→22:08)
[2021-06-30] MEDS ORDERED: valACYclovir HCL 500 MG TABLET (FP) ONE (22:05)
[2021-07-01] MEDS: dilTIAZem HCL 30 MG TABLET PO SCH (06:33)
[2021-07-01] MEDS: INSULIN SLIDING SCALE (NOVOLOG) 1 VIAL SQ SCH ×2 (06:33→12:29)
[2021-07-01] MEDS: FUROSEMIDE 20 MG TABLET (FP) PO SCH ×2 (06:33→14:26)
[2021-07-01] MEDS: hydrALAZINE HCL 50 MG TABLET (FP) PO SCH ×2 (06:33→14:26)
[2021-07-01] MEDS: INSULIN (NOVOLOG MIX 70/30) 100 UNITS/ML MDV SQ SCH ×2 (06:34→12:35)
[2021-07-01] MEDS ORDERED: INSULIN (LEVEMIR) 100 UNITS/ML UNITS SQ SCH (07:00)
[2021-07-01] MEDS ORDERED: predniSONE 10 MG TABLET (UD) PO SCH (10:00)
[2021-07-01] MEDS: APIXABAN 5 MG TABLET PO SCH (10:22)
[2021-07-01] MEDS: guaiFENesin 600 MG TABLET.ER (FP) PO SCH (10:22)
[2021-07-01] MEDS: SPIRONOLACTONE 25 MG TABLET PO SCH (10:23)
[2021-07-01] MEDS: ISOSORBIDE MONONITRATE 60 MG TAB.SR.24H (FP) PO SCH (10:23)
[2021-07-01] MEDS: POLYETHYLENE GLYCOL (HEALTHYLAX) 3350 17 GM PACKET PO SCH (10:24)
[2021-07-01] MEDS: BUDESONIDE/FORMETEROL FUMARATE 80/4.5 mcg INHALER IH SCH (10:24)
[2021-07-01 14:53] VITALS: BP 125/66; PULSE 88; TEMP 98.4
[2021-07-01 15:00] LABS: EPI CELLS 1 /uL (0-25.1); HYALINE CASTS 0 /uL (0-3.1); URINE APPEARANCE CLEAR; URINE BACTERIA 2 /uL (0-1359); URINE BILIRUBIN NEGATIVE (NEGATIVE); URINE COLOR YELLOW; URINE GLUCOSE (UA) 2+ (NEGATIVE); URINE KETONE NEGATIVE (NEGATIVE); URINE LEUK ESTERASE NEGATIVE (NEGATIVE); URINE NITRITE NEGATIVE (NEGATIVE); URINE PROTEIN 1+ (NEGATIVE); URINE RBC 6 /uL (0-23.9); URINE WBC 3 /uL (0-25.8)
[2021-07-01 15:54] LABS: YEAST PRESENT (NEGATIVE)
== END 2021-07-01 16:41 | disposition home or self-care (01) | DRG 194 ==
LOC: JER 09:42 → JERBED 14:28 → J4W 23:19
PROVIDERS: ADMIT Internal Medicine; ATTEND Nurse Practitioner Acute Care
DX: I13.0 Hypertensive heart and chronic kidney disease with heart failure and stage 1 through stage 4 chronic kidney disease, or unspecified chronic kidney disease (principal); I25.10 Atherosclerotic heart disease of native coronary artery without angina pectoris; I25.2 Old myocardial infarction; J44.9 Chronic obstructive pulmonary disease, unspecified; E11.22 Type 2 diabetes mellitus with diabetic chronic kidney disease; I50.43 Acute on chronic combined systolic (congestive) and diastolic (congestive) heart failure; Z86.73 Personal history of transient ischemic attack (TIA), and cerebral infarction without residual deficits; F14.10 Cocaine abuse, uncomplicated; Z79.84 Long term (current) use of oral hypoglycemic drugs; I48.91 Unspecified atrial fibrillation; I27.20 Pulmonary hypertension, unspecified; J11.1 Influenza due to unidentified influenza virus with other respiratory manifestations; I71.4 Abdominal aortic aneurysm, without rupture; E11.51 Type 2 diabetes mellitus with diabetic peripheral angiopathy without gangrene; N17.9 Acute kidney failure, unspecified; I48.92 Unspecified atrial flutter; I16.9 Hypertensive crisis, unspecified; R79.89 Other specified abnormal findings of blood chemistry; D64.9 Anemia, unspecified; Z95.5 Presence of coronary angioplasty implant and graft; J44.1 Chronic obstructive pulmonary disease with (acute) exacerbation; N18.32 Chronic kidney disease, stage 3b; E87.1 Hypo-osmolality and hyponatremia; F10.11 Alcohol abuse, in remission; I47.2 Ventricular tachycardia; E66.9 Obesity, unspecified; I16.1 Hypertensive emergency; E87.6 Hypokalemia
CPT/HCPCS: 36415; 71045-TC-FY; 74021-TC-FY; 76705-TC; 80048; 80053; 80307; 81003; 82272; 82550; 82728; 82962; 83540; 83550; 83605; 83690; 83735; 84484; 85025; 85027; 85610; 85730; 87040; 87086; 87502; 87804; 93005; 93010; 94640; 97116-GP; 97162-GP; 99285-25; C9803-CS; J1644; U0003; U0005

== ENCOUNTER 2021-07-08 15:30 | Inpatient (IN) | payer OTHER ==
[2021-07-08 15:52] VITALS: BMI 32.1
[2021-07-08] MEDS ORDERED: diphenhydrAMINE HCL 25 MG CAPSULE (FP) PO ONE ×3 (21:52→22:18)
[2021-07-08] MEDS ORDERED: FUROSEMIDE 40 MG/4 ML INJECTABLE VIAL IVPUSH ONE (21:53)
[2021-07-08] MEDS ORDERED: FAMOTIDINE 20 MG/50 ML IVPB 20 MG/50 ML MG IVPB ONE (21:53)
[2021-07-08] MEDS ORDERED: FUROSEMIDE 40 MG/4 ML INJECTABLE VIAL ONE (22:16)
[2021-07-08] MEDS ORDERED: FAMOTIDINE 10 MG/ML VIAL IVPB ONE (22:16)
[2021-07-08 22:59] LABS: BASO % 0.3 % (0-2.0); EOS % 1.1 % (0-4.5); HEMATOCRIT 33.2 % (35.4-49); HEMOGLOBIN 10.6 GM/dL (11.7-16.9); MCH 28.8 pg (25.7-33.7); MCHC 31.9 g/dl (32.0-35.9); MEAN CELL VOLUME 90.4 fl (80-96); MONO % 3.3 % (3.8-10.2); NEUT % 89.3 % (42.8-82.8); PLATELET COUNT 169 10^3/uL (134-434); RBC 3.67 M/mm3 (4.00-5.60); WHITE BLOOD COUNT 14.1 K/mm3 (4.0-10.0)
[2021-07-08 23:06] LABS: INR 1.21 (0.83-1.09); PROTHROMBIN TIME (PATIENT) 13.9 SEC (9.7-13.0)
[2021-07-08 23:09] LABS: ACTIVATED PTT 25.4 SECONDS (25.2-36.5)
[2021-07-08 23:17] LABS: CHLORIDE 91 mmol/L (98-107); SODIUM 128 mmol/L (136-145)
[2021-07-08 23:22] LABS: ALBUMIN 2.9 g/dl (3.4-5.0); ANION GAP 12 MMOL/L (8-16); BLOOD UREA NITROGEN 67.8 mg/dL (7-18); CALCIUM 8.3 mg/dL (8.5-10.1); CO2 24 mmol/L (21-32); MAGNESIUM 2.6 mg/dL (1.8-2.4)
[2021-07-08 23:24] LABS: CREATININE 3.4 mg/dL (0.55-1.3); SGOT/AST 126 U/L (15-37); SGPT/ALT 413 U/L (13-61)
[2021-07-08 23:25] LABS: ANISOCYTOSIS 2+; MACROCYTOSIS 1+; TARGET CELLS 1+; TEAR DROP CELLS 1+
[2021-07-08 23:26] LABS: BILIRUBIN,TOTAL 1.3 mg/dL (0.2-1)
[2021-07-08] MEDS ORDERED: CEFTRIAXONE 1,000 MG in DEXTROSE 5%-WATER - 50 ML IVPB ONE (23:39)
[2021-07-08] MEDS ORDERED: AZITHROMYCIN IVPB 500 MG in DEXTROSE 5%-WATER - 250 ML IVPB ONE (23:40)
[2021-07-08 23:50] LABS: ALK PHOS 275 U/L (45-117); GLUCOSE,RANDOM 494 mg/dL (74-106); LIPASE 169 U/L (73-393); N-TERMINAL BNP 8498.4 pg/ml (5-125)
[2021-07-08] MEDS ORDERED: ASPIRIN 325 MG TABLET PO ONE (23:57)
[2021-07-08] MEDS ORDERED: INSULIN REGULAR HUMAN 100 UNITS/ML *VIAL SQ ONE (23:58)
[2021-07-09] MEDS ORDERED: CEFTRIAXONE 1 GM/50 ML BAG ONE (00:35)
[2021-07-09] MEDS ORDERED: AZITHROMYCIN IVPB 500 MG/250 ML BAG IVPB ONE (00:36)
[2021-07-09 03:21] LABS: CHLORIDE 90 mmol/L (98-107); SODIUM 128 mmol/L (136-145)
[2021-07-09 03:22] LABS: ANION GAP 16 MMOL/L (8-16); CALCIUM 8.2 mg/dL (8.5-10.1); CO2 22 mmol/L (21-32)
[2021-07-09 03:23] LABS: BLOOD UREA NITROGEN 67.1 mg/dL (7-18)
[2021-07-09 03:26] LABS: CREATININE 3.4 mg/dL (0.55-1.3)
[2021-07-09 03:43] LABS: GLUCOSE,RANDOM 535 mg/dL (74-106)
[2021-07-09] MEDS ORDERED: INSULIN REGULAR HUMAN 100 UNITS/ML *VIAL IVPUSH ONE (03:52)
[2021-07-09] MEDS ORDERED: INSULIN REGULAR HUMAN 100 UNITS/ML *VIAL ONE (04:00)
[2021-07-09] MEDS ORDERED: hydrALAZINE HCL 50 MG TABLET (FP) ONE ×2 (06:33→23:32)
[2021-07-09] MEDS: hydrALAZINE HCL 50 MG TABLET (FP) PO SCH ×3 (06:51→22:21)
[2021-07-09] MEDS: INSULIN (LEVEMIR) 100 UNITS/ML UNITS SQ SCH ×2 (06:51→22:22)
[2021-07-09] MEDS: INSULIN SLIDING SCALE (NOVOLOG) 1 VIAL SQ SCH ×3 (06:52→16:57)
[2021-07-09] MEDS ORDERED: INSULIN (LEVEMIR) 100 UNITS/ML UNITS SQ SCH (07:00)
[2021-07-09] MEDS ORDERED: FUROSEMIDE 40 MG/4 ML INJECTABLE VIAL IVPUSH SCH (10:00)
[2021-07-09] MEDS ORDERED: METOCLOPRAMIDE HCL INJECTION 10 MG/2 ML VIAL ONE (10:21)
[2021-07-09] MEDS ORDERED: APIXABAN 5 MG TABLET ONE ×2 (10:28→23:32)
[2021-07-09] MEDS ORDERED: ASPIRIN COATED 81 MG TABLET.EC ONE (10:28)
[2021-07-09] MEDS ORDERED: FUROSEMIDE 40 MG/4 ML INJECTABLE VIAL ONE ×2 (10:29→16:58)
[2021-07-09] MEDS ORDERED: PIPERACILLIN/TAZOB 2.25 GM 2.25 GM in DEXTROSE 5%-WATER - 50 ML IVPB ONE (10:33)
[2021-07-09] MEDS: ASPIRIN COATED 81 MG TABLET.EC PO SCH (10:34)
[2021-07-09] MEDS: APIXABAN 5 MG TABLET PO SCH ×2 (10:34→22:22)
[2021-07-09] MEDS: FUROSEMIDE 40 MG/4 ML INJECTABLE VIAL IVPUSH SCH ×2 (10:34→17:43)
[2021-07-09] MEDS: ISOSORBIDE MONONITRATE 30 MG TAB.SR.24H (FP) PO SCH (10:34)
[2021-07-09] MEDS ORDERED: PIPERACILLIN/TAZOB 2.25 GM 2.25 GM/50 ML BAG IVPB ONE (10:42)
[2021-07-09] MEDS ORDERED: valACYclovir HCL 1000 MG TABLET PO SCH ×3 (10:45→22:00)
[2021-07-09] MEDS: BUDESONIDE/FORMETEROL FUMARATE 80/4.5 mcg INHALER IH SCH (10:46)
[2021-07-09] MEDS ORDERED: valACYclovir HCL 500 MG TABLET (FP) PO SCH (10:55)
[2021-07-09] MEDS ORDERED: INSULIN (NOVOLOG MIX 70/30) 100 UNITS/ML MDV SQ SCH (11:00)
[2021-07-09 11:22] LABS: BASO % 0.3 % (0-2.0); EOS % 0.8 % (0-4.5); HEMATOCRIT 29.2 % (35.4-49); HEMOGLOBIN 9.2 GM/dL (11.7-16.9); LYMPH % 7.8 % (8-40); MCH 28.7 pg (25.7-33.7); MCHC 31.4 g/dl (32.0-35.9); MEAN CELL VOLUME 91.3 fl (80-96); MEAN PLT VOLUME 7.9 fl (7.5-11.1); MONO % 4.2 % (3.8-10.2); NEUT % 86.9 % (42.8-82.8); PLATELET COUNT 166 10^3/uL (134-434); RDW 20.6 % (11.9-15.9); WHITE BLOOD COUNT 13.7 K/mm3 (4.0-10.0)
[2021-07-09 11:38] LABS: ALBUMIN 2.9 g/dl (3.4-5.0); BLOOD UREA NITROGEN 65.5 mg/dL (7-18); CALCIUM 8.7 mg/dL (8.5-10.1)
[2021-07-09 11:39] LABS: MAGNESIUM 2.4 mg/dL (1.8-2.4)
[2021-07-09 11:41] LABS: CREATININE 3.1 mg/dL (0.55-1.3); PHOSPHOROUS 3.6 mg/dL (2.5-4.9)
[2021-07-09 11:43] LABS: BILIRUBIN,TOTAL 0.9 mg/dL (0.2-1); TOT PROT 6.4 g/dl (6.4-8.2)
[2021-07-09] MEDS ORDERED: SPIRONOLACTONE 25 MG TABLET ONE ×2 (15:45→23:32)
[2021-07-09] MEDS ORDERED: INSULIN (NOVOLOG MIX 70/30) 100 UNITS/ML MDV SQ ONE (15:47)
[2021-07-09] MEDS: SPIRONOLACTONE 25 MG TABLET PO SCH ×2 (15:50→22:21)
[2021-07-09] MEDS ORDERED: PIPERACILLIN/TAZOB 3.375 GM 3.375 GM/50 ML BAG IVPB ONE (17:44)
[2021-07-09] MEDS: PIPERACILLIN/TAZOB 3.375 GM 3.375 GM in DEXTROSE 5%-WATER - 50 ML IVPB SCH (17:44)
[2021-07-09 18:25] LABS: METHADONE, UR NEGATIVE (NEGATIVE); OPIATES, URI NEGATIVE (NEGATIVE); PHENCYCLIDINE,URINE NEGATIVE (NEGATIVE); URINE BARBITURATES NEGATIVE (NEGATIVE); URINE BENZODIAZEPINES NEGATIVE (NEGATIVE)
[2021-07-09 18:39] LABS: COCAINE, UR POSITIVE (NEGATIVE); URINE AMPHETAMINES NEGATIVE (NEGATIVE)
[2021-07-09] MEDS ORDERED: valACYclovir HCL 500 MG TABLET (FP) ONE (23:32)
[2021-07-10] MEDS: PIPERACILLIN/TAZOB 3.375 GM 3.375 GM in DEXTROSE 5%-WATER - 50 ML IVPB SCH ×2 (02:42→10:28)
[2021-07-10] MEDS: INSULIN SLIDING SCALE (NOVOLOG) 1 VIAL SQ SCH ×5 (06:22→21:44)
[2021-07-10] MEDS ORDERED: hydrALAZINE HCL 50 MG TABLET (FP) ONE ×2 (06:28→16:38)
[2021-07-10] MEDS ORDERED: SPIRONOLACTONE 25 MG TABLET ONE ×2 (06:28→10:07)
[2021-07-10] MEDS ORDERED: FUROSEMIDE 40 MG/4 ML INJECTABLE VIAL ONE ×2 (06:29→16:38)
[2021-07-10] MEDS ORDERED: PIPERACILLIN/TAZOB 3.375 GM 3.375 GM/50 ML BAG IVPB ONE ×2 (06:29→10:07)
[2021-07-10] MEDS: hydrALAZINE HCL 50 MG TABLET (FP) PO SCH ×3 (06:42→21:40)
[2021-07-10] MEDS: FUROSEMIDE 40 MG/4 ML INJECTABLE VIAL IVPUSH SCH ×2 (06:42→16:57)
[2021-07-10] MEDS: INSULIN (LEVEMIR) 100 UNITS/ML UNITS SQ SCH ×2 (06:43→21:45)
[2021-07-10] MEDS ORDERED: APIXABAN 5 MG TABLET ONE (10:06)
[2021-07-10] MEDS ORDERED: ASPIRIN COATED 81 MG TABLET.EC ONE (10:06)
[2021-07-10] MEDS ORDERED: ISOSORBIDE MONONITRATE 60 MG TAB.SR.24H (FP) PO ONE (10:07)
[2021-07-10] MEDS: SPIRONOLACTONE 25 MG TABLET PO SCH ×2 (10:27→21:40)
[2021-07-10] MEDS: APIXABAN 5 MG TABLET PO SCH ×2 (10:28→21:40)
[2021-07-10] MEDS: ASPIRIN COATED 81 MG TABLET.EC PO SCH (10:28)
[2021-07-10] MEDS: ISOSORBIDE MONONITRATE 30 MG TAB.SR.24H (FP) PO SCH (10:28)
[2021-07-10] MEDS: BUDESONIDE/FORMETEROL FUMARATE 80/4.5 mcg INHALER IH SCH ×3 (11:27→22:30)
[2021-07-10] MEDS ORDERED: PIPERACILLIN/TAZOB 2.25 GM 2.25 GM/50 ML BAG IVPB ONE (16:38)
[2021-07-10] MEDS: PIPERACILLIN/TAZOB 2.25 GM 2.25 GM in DEXTROSE 5%-WATER - 50 ML IVPB SCH ×2 (16:57→21:36)
[2021-07-10] MEDS ORDERED: PIPERACILLIN/TAZOBACTAM 2.25 GM VIAL IVPB ONE (20:11)
[2021-07-10] MEDS ORDERED: DEXTROSE 5%-WATER - 50 ML IVPB ONE (20:11)
[2021-07-10] MEDS: ACETAMINOPHEN 1000 MG/100 ML BAG IVPB PRN (20:36)
[2021-07-11] MEDS ORDERED: DEXTROSE 5%-WATER - 50 ML IVPB ONE ×4 (03:27→21:44)
[2021-07-11] MEDS ORDERED: PIPERACILLIN/TAZOBACTAM 2.25 GM VIAL IVPB ONE ×4 (03:27→21:44)
[2021-07-11] MEDS: PIPERACILLIN/TAZOB 2.25 GM 2.25 GM in DEXTROSE 5%-WATER - 50 ML IVPB SCH ×4 (03:32→21:57)
[2021-07-11] MEDS: FUROSEMIDE 40 MG/4 ML INJECTABLE VIAL IVPUSH SCH ×2 (06:46→14:05)
[2021-07-11] MEDS: hydrALAZINE HCL 50 MG TABLET (FP) PO SCH ×3 (06:46→21:58)
[2021-07-11] MEDS: INSULIN (LEVEMIR) 100 UNITS/ML UNITS SQ SCH ×2 (06:54→21:59)
[2021-07-11] MEDS: INSULIN SLIDING SCALE (NOVOLOG) 1 VIAL SQ SCH ×4 (06:55→22:00)
[2021-07-11 08:22] LABS: BASO % 0.2 % (0-2.0); EOS % 4.3 % (0-4.5); HEMATOCRIT 28.4 % (35.4-49); HEMOGLOBIN 8.7 GM/dL (11.7-16.9); LYMPH % 2.7 % (8-40); MCH 28.6 pg (25.7-33.7); MCHC 30.8 g/dl (32.0-35.9); MEAN CELL VOLUME 92.8 fl (80-96); MEAN PLT VOLUME 8.1 fl (7.5-11.1); MONO % 5.3 % (3.8-10.2); NEUT % 87.5 % (42.8-82.8); PLATELET COUNT 164 10^3/uL (134-434); RBC 3.05 M/mm3 (4.00-5.60); RDW 21.2 % (11.9-15.9); WHITE BLOOD COUNT 8.7 K/mm3 (4.0-10.0)
[2021-07-11 08:58] LABS: ALBUMIN 2.5 g/dl (3.4-5.0); CALCIUM 8.5 mg/dL (8.5-10.1); CREATININE 3.1 mg/dL (0.55-1.3)
[2021-07-11 08:59] LABS: BILIRUBIN,TOTAL 0.9 mg/dL (0.2-1); BLOOD UREA NITROGEN 54.5 mg/dL (7-18)
[2021-07-11 09:00] LABS: TOT PROT 5.9 g/dl (6.4-8.2)
[2021-07-11] MEDS: SPIRONOLACTONE 25 MG TABLET PO SCH ×2 (09:07→21:58)
[2021-07-11] MEDS: ASPIRIN COATED 81 MG TABLET.EC PO SCH (09:07)
[2021-07-11] MEDS: ISOSORBIDE MONONITRATE 30 MG TAB.SR.24H (FP) PO SCH (09:07)
[2021-07-11] MEDS: APIXABAN 5 MG TABLET PO SCH ×2 (09:07→21:58)
[2021-07-11] MEDS: BUDESONIDE/FORMETEROL FUMARATE 80/4.5 mcg INHALER IH SCH ×2 (09:08→22:02)
[2021-07-11] MEDS: GABAPENTIN 100 MG CAPSULE PO SCH ×2 (14:05→21:58)
[2021-07-11] MEDS: DILTIAZEM CD PO SCH (17:20)
[2021-07-11] MEDS: valACYclovir HCL 500 MG TABLET (FP) PO SCH (21:58)
[2021-07-12] MEDS ORDERED: DEXTROSE 5%-WATER - 50 ML IVPB ONE ×4 (02:19→22:02)
[2021-07-12] MEDS ORDERED: PIPERACILLIN/TAZOBACTAM 2.25 GM VIAL IVPB ONE ×4 (02:19→22:01)
[2021-07-12] MEDS: PIPERACILLIN/TAZOB 2.25 GM 2.25 GM in DEXTROSE 5%-WATER - 50 ML IVPB SCH ×4 (03:03→23:46)
[2021-07-12] MEDS: hydrALAZINE HCL 50 MG TABLET (FP) PO SCH ×3 (06:51→23:48)
[2021-07-12] MEDS: GABAPENTIN 100 MG CAPSULE PO SCH ×3 (06:51→23:48)
[2021-07-12] MEDS: FUROSEMIDE 40 MG/4 ML INJECTABLE VIAL IVPUSH SCH ×2 (06:51→13:40)
[2021-07-12] MEDS: INSULIN (LEVEMIR) 100 UNITS/ML UNITS SQ SCH ×2 (06:51→23:45)
[2021-07-12] MEDS: INSULIN SLIDING SCALE (NOVOLOG) 1 VIAL SQ SCH ×4 (06:52→23:46)
[2021-07-12 07:56] LABS: BASO % 0.2 % (0-2.0); EOS % 6.2 % (0-4.5); HEMATOCRIT 27.8 % (35.4-49); HEMOGLOBIN 8.7 GM/dL (11.7-16.9); LYMPH % 8.2 % (8-40); MCH 29.1 pg (25.7-33.7); MCHC 31.3 g/dl (32.0-35.9); MEAN CELL VOLUME 92.8 fl (80-96); MEAN PLT VOLUME 8.3 fl (7.5-11.1); MONO % 9.6 % (3.8-10.2); NEUT % 75.8 % (42.8-82.8); PLATELET COUNT 217 10^3/uL (134-434); RDW 21.4 % (11.9-15.9); WHITE BLOOD COUNT 7.2 K/mm3 (4.0-10.0)
[2021-07-12 08:20] LABS: ALBUMIN 2.5 g/dl (3.4-5.0); CREATININE 3.1 mg/dL (0.55-1.3)
[2021-07-12 08:21] LABS: BLOOD UREA NITROGEN 49.7 mg/dL (7-18)
[2021-07-12 08:22] LABS: BILIRUBIN,TOTAL 0.9 mg/dL (0.2-1); TOT PROT 6.1 g/dl (6.4-8.2)
[2021-07-12 08:23] LABS: CALCIUM 7.9 mg/dL (8.5-10.1)
[2021-07-12] MEDS: SPIRONOLACTONE 25 MG TABLET PO SCH ×2 (09:05→23:48)
[2021-07-12] MEDS: APIXABAN 5 MG TABLET PO SCH ×2 (09:05→23:48)
[2021-07-12] MEDS: valACYclovir HCL 500 MG TABLET (FP) PO SCH ×2 (09:06→23:49)
[2021-07-12] MEDS: ASPIRIN COATED 81 MG TABLET.EC PO SCH (09:08)
[2021-07-12] MEDS: ISOSORBIDE MONONITRATE 30 MG TAB.SR.24H (FP) PO SCH (09:09)
[2021-07-12] MEDS: DILTIAZEM CD PO SCH (09:25)
[2021-07-12 11:02] LABS: ANISOCYTOSIS 1+; MACROCYTOSIS 0; PLATELET ESTIMATE NORMAL
[2021-07-12] MEDS: methylPREDNISolone NA SUCC 40 MG/1 ML VIAL IVPUSH SCH ×2 (11:06→17:57)
[2021-07-12] MEDS: BUDESONIDE/FORMETEROL FUMARATE 80/4.5 mcg INHALER IH SCH (12:28)
[2021-07-13] MEDS: BUDESONIDE/FORMETEROL FUMARATE 80/4.5 mcg INHALER IH SCH ×3 (00:03→21:58)
[2021-07-13] MEDS: methylPREDNISolone NA SUCC 40 MG/1 ML VIAL IVPUSH SCH ×2 (02:00→09:50)
[2021-07-13] MEDS ORDERED: DEXTROSE 5%-WATER - 50 ML IVPB ONE ×4 (02:35→20:33)
[2021-07-13] MEDS ORDERED: PIPERACILLIN/TAZOBACTAM 2.25 GM VIAL IVPB ONE ×4 (02:35→20:33)
[2021-07-13] MEDS: hydrALAZINE HCL 50 MG TABLET (FP) PO SCH ×3 (06:07→21:43)
[2021-07-13] MEDS: PIPERACILLIN/TAZOB 2.25 GM 2.25 GM in DEXTROSE 5%-WATER - 50 ML IVPB SCH ×4 (06:07→21:40)
[2021-07-13] MEDS: INSULIN (LEVEMIR) 100 UNITS/ML UNITS SQ SCH ×2 (06:08→21:57)
[2021-07-13] MEDS: FUROSEMIDE 40 MG/4 ML INJECTABLE VIAL IVPUSH SCH ×2 (06:08→13:36)
[2021-07-13] MEDS: GABAPENTIN 100 MG CAPSULE PO SCH ×3 (06:08→21:43)
[2021-07-13] MEDS: INSULIN SLIDING SCALE (NOVOLOG) 1 VIAL SQ SCH ×4 (06:08→21:57)
[2021-07-13] MEDS: SPIRONOLACTONE 25 MG TABLET PO SCH ×2 (09:48→21:46)
[2021-07-13] MEDS: ASPIRIN COATED 81 MG TABLET.EC PO SCH (09:49)
[2021-07-13] MEDS: APIXABAN 5 MG TABLET PO SCH ×2 (09:49→21:43)
[2021-07-13] MEDS: ISOSORBIDE MONONITRATE 30 MG TAB.SR.24H (FP) PO SCH (09:49)
[2021-07-13] MEDS: DILTIAZEM CD PO SCH (09:49)
[2021-07-13] MEDS: valACYclovir HCL 500 MG TABLET (FP) PO SCH (09:50)
[2021-07-13] MEDS: INSULIN (NOVOLOG MIX 70/30) 100 UNITS/ML MDV SQ SCH (17:25)
[2021-07-14] MEDS ORDERED: PIPERACILLIN/TAZOBACTAM 2.25 GM VIAL IVPB ONE ×2 (04:25→08:59)
[2021-07-14] MEDS ORDERED: DEXTROSE 5%-WATER - 50 ML IVPB ONE ×2 (04:26→08:59)
[2021-07-14] MEDS: PIPERACILLIN/TAZOB 2.25 GM 2.25 GM in DEXTROSE 5%-WATER - 50 ML IVPB SCH ×3 (04:40→15:57)
[2021-07-14] MEDS: hydrALAZINE HCL 50 MG TABLET (FP) PO SCH ×3 (05:55→21:36)
[2021-07-14] MEDS: GABAPENTIN 100 MG CAPSULE PO SCH ×3 (05:56→21:36)
[2021-07-14] MEDS: FUROSEMIDE 40 MG/4 ML INJECTABLE VIAL IVPUSH SCH ×2 (05:56→14:30)
[2021-07-14] MEDS: INSULIN (LEVEMIR) 100 UNITS/ML UNITS SQ SCH ×2 (06:09→21:37)
[2021-07-14] MEDS: INSULIN (NOVOLOG MIX 70/30) 100 UNITS/ML MDV SQ SCH ×3 (06:10→17:02)
[2021-07-14] MEDS: INSULIN SLIDING SCALE (NOVOLOG) 1 VIAL SQ SCH ×4 (06:10→21:38)
[2021-07-14 07:48] LABS: BASO % 0.2 % (0-2.0); EOS % 0.1 % (0-4.5); HEMOGLOBIN 8.2 GM/dL (11.7-16.9); LYMPH % 6.3 % (8-40); MCH 29.1 pg (25.7-33.7); MCHC 31.6 g/dl (32.0-35.9); MEAN PLT VOLUME 8.3 fl (7.5-11.1); MONO % 11.2 % (3.8-10.2); NEUT % 82.2 % (42.8-82.8); PLATELET COUNT 306 10^3/uL (134-434); RBC 2.82 M/mm3 (4.00-5.60); RDW 21.2 % (11.9-15.9); WHITE BLOOD COUNT 8.5 K/mm3 (4.0-10.0)
[2021-07-14 08:00] LABS: CALCIUM 8.3 mg/dL (8.5-10.1)
[2021-07-14 08:01] LABS: ALBUMIN 2.6 g/dl (3.4-5.0); BLOOD UREA NITROGEN 56.2 mg/dL (7-18); MAGNESIUM 2.3 mg/dL (1.8-2.4)
[2021-07-14 08:04] LABS: CREATININE 3.2 mg/dL (0.55-1.3)
[2021-07-14 08:05] LABS: TOT PROT 6.4 g/dl (6.4-8.2)
[2021-07-14 08:06] LABS: BILIRUBIN,TOTAL 0.7 mg/dL (0.2-1)
[2021-07-14] MEDS: APIXABAN 5 MG TABLET PO SCH ×2 (09:08→21:37)
[2021-07-14] MEDS: DILTIAZEM CD PO SCH (09:08)
[2021-07-14] MEDS: ISOSORBIDE MONONITRATE 30 MG TAB.SR.24H (FP) PO SCH (09:08)
[2021-07-14] MEDS: SPIRONOLACTONE 25 MG TABLET PO SCH ×2 (09:09→21:36)
[2021-07-14] MEDS: ASPIRIN COATED 81 MG TABLET.EC PO SCH (09:09)
[2021-07-14] MEDS: BUDESONIDE/FORMETEROL FUMARATE 80/4.5 mcg INHALER IH SCH ×2 (09:09→21:43)
[2021-07-14] MEDS: predniSONE 20 MG TABLET (UD) PO SCH (09:16)
[2021-07-14] MEDS ORDERED: INSULIN (NOVOLOG) ASPART 100 UNITS/ML 10ML VIAL ONE (11:34)
[2021-07-14] MEDS: ACETAMINOPHEN 1000 MG/100 ML BAG IVPB PRN (11:37)
[2021-07-14] MEDS: AMOX TR/POT CLAV 875MG/125MG TABLETS (FP) PO SCH (21:37)
[2021-07-15] MEDS: hydrALAZINE HCL 50 MG TABLET (FP) PO SCH ×3 (06:24→21:20)
[2021-07-15] MEDS: GABAPENTIN 100 MG CAPSULE PO SCH ×3 (06:24→21:20)
[2021-07-15] MEDS: FUROSEMIDE 40 MG/4 ML INJECTABLE VIAL IVPUSH SCH ×2 (06:24→13:46)
[2021-07-15] MEDS: INSULIN (LEVEMIR) 100 UNITS/ML UNITS SQ SCH ×2 (06:25→21:27)
[2021-07-15] MEDS: INSULIN (NOVOLOG MIX 70/30) 100 UNITS/ML MDV SQ SCH ×3 (06:25→19:04)
[2021-07-15] MEDS: INSULIN SLIDING SCALE (NOVOLOG) 1 VIAL SQ SCH ×4 (06:25→21:26)
[2021-07-15 07:34] LABS: HEMATOCRIT 27.9 % (35.4-49); HEMOGLOBIN 8.8 GM/dL (11.7-16.9); MCHC 31.5 g/dl (32.0-35.9); MEAN CELL VOLUME 92.3 fl (80-96); MEAN PLT VOLUME 7.8 fl (7.5-11.1); PLATELET COUNT 397 10^3/uL (134-434); RBC 3.02 M/mm3 (4.00-5.60); RDW 21.2 % (11.9-15.9); WHITE BLOOD COUNT 8.7 K/mm3 (4.0-10.0)
[2021-07-15 08:09] LABS: CHLORIDE 97 mmol/L (98-107); SODIUM 131 mmol/L (136-145)
[2021-07-15 08:27] LABS: ANION GAP 10 MMOL/L (8-16); BLOOD UREA NITROGEN 61.4 mg/dL (7-18); CO2 24 mmol/L (21-32)
[2021-07-15 08:28] LABS: ALBUMIN 2.7 g/dl (3.4-5.0)
[2021-07-15 08:29] LABS: BILIRUBIN,TOTAL 0.7 mg/dL (0.2-1); CALCIUM 8.4 mg/dL (8.5-10.1); TOT PROT 6.5 g/dl (6.4-8.2)
[2021-07-15 08:30] LABS: SGOT/AST 18 U/L (15-37)
[2021-07-15 08:34] LABS: SGPT/ALT 107 U/L (13-61)
[2021-07-15 08:37] LABS: ALK PHOS 261 U/L (45-117)
[2021-07-15 08:40] LABS: CREATININE 3.1 mg/dL (0.55-1.3); GLUCOSE,RANDOM 433 mg/dL (74-106)
[2021-07-15 09:17] LABS: ANISOCYTOSIS 2+; MACROCYTOSIS 2+; TARGET CELLS 2+; TEAR DROP CELLS 1+
[2021-07-15] MEDS: AMOX TR/POT CLAV 875MG/125MG TABLETS (FP) PO SCH ×2 (09:49→19:04)
[2021-07-15] MEDS: ISOSORBIDE MONONITRATE 30 MG TAB.SR.24H (FP) PO SCH (09:49)
[2021-07-15] MEDS: predniSONE 20 MG TABLET (UD) PO SCH (09:49)
[2021-07-15] MEDS: DILTIAZEM CD PO SCH (09:49)
[2021-07-15] MEDS: APIXABAN 5 MG TABLET PO SCH ×2 (09:49→21:20)
[2021-07-15] MEDS: ASPIRIN COATED 81 MG TABLET.EC PO SCH (09:49)
[2021-07-15] MEDS: SPIRONOLACTONE 25 MG TABLET PO SCH ×2 (09:49→21:20)
[2021-07-15] MEDS: BUDESONIDE/FORMETEROL FUMARATE 80/4.5 mcg INHALER IH SCH ×2 (09:50→21:27)
[2021-07-16] MEDS: hydrALAZINE HCL 50 MG TABLET (FP) PO SCH ×2 (06:11→14:49)
[2021-07-16] MEDS: FUROSEMIDE 40 MG/4 ML INJECTABLE VIAL IVPUSH SCH ×2 (06:11→14:48)
[2021-07-16] MEDS: GABAPENTIN 100 MG CAPSULE PO SCH ×2 (06:11→14:49)
[2021-07-16] MEDS: INSULIN SLIDING SCALE (NOVOLOG) 1 VIAL SQ SCH ×3 (06:11→17:27)
[2021-07-16] MEDS: INSULIN (NOVOLOG MIX 70/30) 100 UNITS/ML MDV SQ SCH ×3 (06:11→17:28)
[2021-07-16] MEDS: INSULIN (LEVEMIR) 100 UNITS/ML UNITS SQ SCH (06:11)
[2021-07-16 07:32] LABS: HEMATOCRIT 28.8 % (35.4-49); HEMOGLOBIN 8.9 GM/dL (11.7-16.9); MCH 28.9 pg (25.7-33.7); MCHC 30.9 g/dl (32.0-35.9); MEAN CELL VOLUME 93.4 fl (80-96); MEAN PLT VOLUME 7.7 fl (7.5-11.1); PLATELET COUNT 441 10^3/uL (134-434); RBC 3.08 M/mm3 (4.00-5.60); RDW 20.8 % (11.9-15.9); WHITE BLOOD COUNT 8.8 K/mm3 (4.0-10.0)
[2021-07-16 07:54] LABS: ALBUMIN 2.6 g/dl (3.4-5.0); BLOOD UREA NITROGEN 60.4 mg/dL (7-18); CALCIUM 8.6 mg/dL (8.5-10.1); MAGNESIUM 1.8 mg/dL (1.8-2.4)
[2021-07-16 07:57] LABS: CREATININE 2.7 mg/dL (0.55-1.3)
[2021-07-16 07:58] LABS: BILIRUBIN,TOTAL 0.7 mg/dL (0.2-1); TOT PROT 6.4 g/dl (6.4-8.2)
[2021-07-16 09:05] LABS: ANISOCYTOSIS 2+; MACROCYTOSIS 2+
[2021-07-16 09:08] VITALS: BP 144/87; TEMP 98.8
[2021-07-16] MEDS: DILTIAZEM CD PO SCH (09:23)
[2021-07-16] MEDS: SPIRONOLACTONE 25 MG TABLET PO SCH (09:23)
[2021-07-16] MEDS: APIXABAN 5 MG TABLET PO SCH (09:23)
[2021-07-16] MEDS: AMOX TR/POT CLAV 875MG/125MG TABLETS (FP) PO SCH ×2 (09:23→17:27)
[2021-07-16] MEDS: predniSONE 20 MG TABLET (UD) PO SCH (09:23)
[2021-07-16] MEDS: ISOSORBIDE MONONITRATE 30 MG TAB.SR.24H (FP) PO SCH (09:23)
[2021-07-16] MEDS: ASPIRIN COATED 81 MG TABLET.EC PO SCH (09:23)
[2021-07-16] MEDS: BUDESONIDE/FORMETEROL FUMARATE 80/4.5 mcg INHALER IH SCH (09:26)
[2021-07-16 10:14] VITALS: PULSE 103
[2021-07-16] MEDS ORDERED: BACITRACIN 15 GM TUBE TOPICAL OINTMENT TP SCH (10:15)
[2021-07-17] MEDS ORDERED: INSULIN (NOVOLOG MIX 70/30) 100 UNITS/ML MDV SQ SCH (07:00)
== END 2021-07-16 18:45 | disposition home or self-care (01) | DRG 194 ==
LOC: JER 15:30 → JERBED 23:40 → J4W 07-10 18:26
PROVIDERS: ADMIT Hospitalist; ATTEND Nurse Practitioner Family
DX: I13.0 Hypertensive heart and chronic kidney disease with heart failure and stage 1 through stage 4 chronic kidney disease, or unspecified chronic kidney disease (principal); I50.43 Acute on chronic combined systolic (congestive) and diastolic (congestive) heart failure; E11.22 Type 2 diabetes mellitus with diabetic chronic kidney disease; N18.32 Chronic kidney disease, stage 3b; I27.20 Pulmonary hypertension, unspecified; J18.9 Pneumonia, unspecified organism; E11.51 Type 2 diabetes mellitus with diabetic peripheral angiopathy without gangrene; L03.115 Cellulitis of right lower limb; L03.116 Cellulitis of left lower limb; F14.10 Cocaine abuse, uncomplicated; E11.65 Type 2 diabetes mellitus with hyperglycemia; B00.2 Herpesviral gingivostomatitis and pharyngotonsillitis; I25.10 Atherosclerotic heart disease of native coronary artery without angina pectoris; E78.5 Hyperlipidemia, unspecified; M54.50 Low back pain, unspecified; I25.119 Atherosclerotic heart disease of native coronary artery with unspecified angina pectoris; K21.9 Gastro-esophageal reflux disease without esophagitis; K57.90 Diverticulosis of intestine, part unspecified, without perforation or abscess without bleeding; I42.0 Dilated cardiomyopathy; J44.9 Chronic obstructive pulmonary disease, unspecified; N17.9 Acute kidney failure, unspecified; D64.9 Anemia, unspecified; F10.11 Alcohol abuse, in remission; I48.0 Paroxysmal atrial fibrillation; R79.89 Other specified abnormal findings of blood chemistry; Z95.5 Presence of coronary angioplasty implant and graft; Z86.73 Personal history of transient ischemic attack (TIA), and cerebral infarction without residual deficits; I25.2 Old myocardial infarction
CPT/HCPCS: 0241U-QW; 36415; 71045-TC-FY; 80048; 80053; 80307; 82962; 83690; 83735; 83880; 84100; 84484; 85025; 85610; 85730; 86140; 87040; 87070; 87205; 87899; 93005; 93010; 94761; 99285-25

== ENCOUNTER 2021-07-21 08:40 | Inpatient (IN) | payer OTHER ==
[2021-07-21 11:45] LABS: HEMATOCRIT 29.9 % (35.4-49); HEMOGLOBIN 9.1 GM/dL (11.7-16.9); MCH 28.7 pg (25.7-33.7); MCHC 30.4 g/dl (32.0-35.9); MEAN CELL VOLUME 94.3 fl (80-96); MEAN PLT VOLUME 7.8 fl (7.5-11.1); PLATELET COUNT 441 10^3/uL (134-434); RBC 3.17 M/mm3 (4.00-5.60); WHITE BLOOD COUNT 12.7 K/mm3 (4.0-10.0)
[2021-07-21 11:54] LABS: CHLORIDE 100 mmol/L (98-107); SODIUM 132 mmol/L (136-145)
[2021-07-21 11:55] LABS: CALCIUM 8.5 mg/dL (8.5-10.1)
[2021-07-21 11:56] LABS: ALBUMIN 2.6 g/dl (3.4-5.0); ANION GAP 7 MMOL/L (8-16); BLOOD UREA NITROGEN 37.6 mg/dL (7-18); CO2 25 mmol/L (21-32)
[2021-07-21 11:59] LABS: CREATININE 2.2 mg/dL (0.55-1.3); SGOT/AST 16 U/L (15-37); SGPT/ALT 53 U/L (13-61)
[2021-07-21 12:01] LABS: BILIRUBIN,TOTAL 0.8 mg/dL (0.2-1); TOT PROT 6.5 g/dl (6.4-8.2)
[2021-07-21 12:04] LABS: N-TERMINAL BNP 7922.8 pg/ml (5-125)
[2021-07-21 12:15] LABS: ALK PHOS 245 U/L (45-117); GLUCOSE,RANDOM 543 mg/dL (74-106)
[2021-07-21 12:28] LABS: EPI CELLS 2 /uL (0-25.1); HYALINE CASTS 0 /uL (0-3.1); PH,URINE 6.5 (5.0-8.0); URINE APPEARANCE CLEAR; URINE BACTERIA 3 /uL (0-1359); URINE BILIRUBIN NEGATIVE (NEGATIVE); URINE COLOR YELLOW; URINE GLUCOSE (UA) 3+ (NEGATIVE); URINE KETONE NEGATIVE (NEGATIVE); URINE LEUK ESTERASE NEGATIVE (NEGATIVE); URINE NITRITE NEGATIVE (NEGATIVE); URINE PROTEIN 2+ (NEGATIVE); URINE RBC 380 /uL (0-23.9); URINE UROBILINOGEN 0.2 mg/dL (0.2-1.0); URINE WBC 9 /uL (0-25.8)
[2021-07-21] MEDS ORDERED: INSULIN REGULAR HUMAN 100 UNITS/ML *VIAL SQ ONE (12:31)
[2021-07-21 12:32] LABS: URINE BARBITURATES NEGATIVE (NEGATIVE)
[2021-07-21] MEDS ORDERED: FUROSEMIDE 40 MG/4 ML INJECTABLE VIAL IVPUSH ONE (12:32)
[2021-07-21 12:33] LABS: METHADONE, UR NEGATIVE (NEGATIVE); OPIATES, URI NEGATIVE (NEGATIVE); PHENCYCLIDINE,URINE NEGATIVE (NEGATIVE); URINE BENZODIAZEPINES NEGATIVE (NEGATIVE)
[2021-07-21 12:39] LABS: URINE AMPHETAMINES NEGATIVE (NEGATIVE)
[2021-07-21] MEDS ORDERED: FUROSEMIDE 40 MG/4 ML INJECTABLE VIAL ONE (13:06)
[2021-07-21] MEDS ORDERED: INSULIN REGULAR HUMAN 100 UNITS/ML *VIAL ONE (13:06)
[2021-07-21] MEDS ORDERED: PIPERACILLIN/TAZOB 3.375 GM 3.375 GM in DEXTROSE 5%-WATER - 50 ML IVPB ONE (13:31)
[2021-07-21] MEDS ORDERED: VANCOMYCIN 1 GM in D5W (PRE-DOCKED) 1,000 MG/250 ML IVPB ONE (13:31)
[2021-07-21 14:08] LABS: HELMET CELLS 0; HOWELL-JOLLY BODIES 0; OVALOCYTE 0; ROULEAU 0; SICKELED CELLS 0; TARGET CELLS 0; TEAR DROP CELLS 0; TOXIC GRANULATION 0
[2021-07-21 14:10] LABS: ANISOCYTOSIS 2+; MACROCYTOSIS 2+
[2021-07-21] MEDS ORDERED: VANCOMYCIN 1 GRAM (PRE-DOCKED) 1,000 MG/250 ML BAG IVPB ONE (14:15)
[2021-07-21] MEDS ORDERED: PIPERACILLIN/TAZOB 3.375 GM 0 GM/0 ML BAG IVPB ONE (14:16)
[2021-07-21] MEDS ORDERED: PIPERACILLIN/TAZOB 3.375 GM 3.375 GM/50 ML BAG IVPB ONE (14:17)
[2021-07-21] MEDS ORDERED: ALBUTEROL SO4 HFA INHALER IH PRN (14:59)
[2021-07-21] MEDS ORDERED: INSULIN SLIDING SCALE (NOVOLOG) 1 VIAL SQ SCH (16:30)
[2021-07-21] MEDS: INSULIN SLIDING SCALE (NOVOLOG) 1 VIAL SQ SCH (18:01)
[2021-07-21] MEDS ORDERED: INSULIN (NOVOLOG MIX 70/30) 100 UNITS/ML MDV SQ ONE (18:03)
[2021-07-21] MEDS: INSULIN (NOVOLOG MIX 70/30) 100 UNITS/ML MDV SQ SCH (18:07)
[2021-07-21] MEDS ORDERED: hydrALAZINE HCL 50 MG TABLET (FP) PO ONE (19:01)
[2021-07-21] MEDS ORDERED: CARVEDILOL 25 MG TABLET (FP) ONE ×2 (19:15→22:27)
[2021-07-21] MEDS ORDERED: hydrALAZINE HCL 50 MG TABLET (FP) ONE ×2 (19:15→22:27)
[2021-07-21] MEDS: CARVEDILOL 25 MG TABLET (FP) PO SCH ×2 (19:19→22:36)
[2021-07-21] MEDS ORDERED: ACETAMINOPHEN 325 MG TABLET (FP) ONE (22:15)
[2021-07-21] MEDS ORDERED: ACETAMINOPHEN 325 MG TABLET (FP) PO STA (22:18)
[2021-07-21] MEDS ORDERED: BACITRACIN 0.9 GM PACKET ONE (22:26)
[2021-07-21] MEDS ORDERED: SPIRONOLACTONE 25 MG TABLET ONE (22:27)
[2021-07-21] MEDS: BACITRACIN 15 GM TUBE TOPICAL OINTMENT TP SCH (22:35)
[2021-07-21] MEDS: SPIRONOLACTONE 25 MG TABLET PO SCH (22:35)
[2021-07-21] MEDS: hydrALAZINE HCL 50 MG TABLET (FP) PO SCH (22:35)
[2021-07-21] MEDS: BUDESONIDE/FORMETEROL FUMARATE 80/4.5 mcg INHALER IH SCH (22:46)
[2021-07-22] MEDS: INSULIN SLIDING SCALE (NOVOLOG) 1 VIAL SQ SCH ×5 (00:43→23:02)
[2021-07-22] MEDS ORDERED: FUROSEMIDE 40 MG TABLET (FP) ONE ×2 (06:13→15:22)
[2021-07-22] MEDS ORDERED: hydrALAZINE HCL 50 MG TABLET (FP) ONE ×2 (06:14→15:22)
[2021-07-22] MEDS: hydrALAZINE HCL 50 MG TABLET (FP) PO SCH ×3 (06:19→23:02)
[2021-07-22] MEDS: FUROSEMIDE 40 MG TABLET (FP) PO SCH ×2 (06:19→16:40)
[2021-07-22] MEDS ORDERED: INSULIN (LEVEMIR) 100 UNITS/ML UNITS SQ SCH (07:00)
[2021-07-22] MEDS ORDERED: INSULIN (NOVOLOG MIX 70/30) 100 UNITS/ML MDV SQ ONE ×2 (07:38→17:26)
[2021-07-22] MEDS: INSULIN (NOVOLOG MIX 70/30) 100 UNITS/ML MDV SQ SCH ×3 (08:00→17:40)
[2021-07-22] MEDS ORDERED: SPIRONOLACTONE 25 MG TABLET ONE (08:54)
[2021-07-22] MEDS ORDERED: PANTOPRAZOLE 20 MG TABLET PO ONE (08:54)
[2021-07-22] MEDS ORDERED: ISOSORBIDE MONONITRATE 60 MG TAB.SR.24H (FP) PO ONE (08:54)
[2021-07-22] MEDS ORDERED: CARVEDILOL 25 MG TABLET (FP) ONE (08:55)
[2021-07-22] MEDS ORDERED: PIPERACILLIN/TAZOB 2.25 GM 2.25 GM in DEXTROSE 5%-WATER - 50 ML IVPB ONE (09:00)
[2021-07-22] MEDS ORDERED: PIPERACILLIN/TAZOB 2.25 GM 2.25 GM/50 ML BAG IVPB ONE ×2 (09:47→18:05)
[2021-07-22 09:49] LABS: BASO % 0.5 % (0-2.0); EOS % 0.3 % (0-4.5); HEMATOCRIT 30.7 % (35.4-49); HEMOGLOBIN 9.9 GM/dL (11.7-16.9); LYMPH % 7.5 % (8-40); MCH 29.6 pg (25.7-33.7); MCHC 32.2 g/dl (32.0-35.9); MEAN CELL VOLUME 92.1 fl (80-96); MONO % 6.1 % (3.8-10.2); NEUT % 85.6 % (42.8-82.8); PLATELET COUNT 393 10^3/uL (134-434); RBC 3.34 M/mm3 (4.00-5.60); RDW 21.8 % (11.9-15.9); WHITE BLOOD COUNT 13.8 K/mm3 (4.0-10.0)
[2021-07-22 09:57] LABS: CALCIUM 8.8 mg/dL (8.5-10.1)
[2021-07-22 09:58] LABS: ALBUMIN 2.7 g/dl (3.4-5.0); BLOOD UREA NITROGEN 34.1 mg/dL (7-18); MAGNESIUM 2.1 mg/dL (1.8-2.4)
[2021-07-22] MEDS: CARVEDILOL 25 MG TABLET (FP) PO SCH ×2 (10:00→23:02)
[2021-07-22] MEDS: ISOSORBIDE MONONITRATE 30 MG TAB.SR.24H (FP) PO SCH (10:00)
[2021-07-22] MEDS: PANTOPRAZOLE 20 MG TABLET PO SCH (10:00)
[2021-07-22] MEDS: BACITRACIN 15 GM TUBE TOPICAL OINTMENT TP SCH ×2 (10:00→23:03)
[2021-07-22] MEDS: SPIRONOLACTONE 25 MG TABLET PO SCH ×2 (10:00→23:02)
[2021-07-22] MEDS ORDERED: glipiZIDE-XL 2.5 MG TAB.ER.24 PO SCH (10:00)
[2021-07-22] MEDS: BUDESONIDE/FORMETEROL FUMARATE 80/4.5 mcg INHALER IH SCH ×2 (10:00→23:03)
[2021-07-22 10:01] LABS: CREATININE 2.3 mg/dL (0.55-1.3)
[2021-07-22 10:02] LABS: BILIRUBIN,TOTAL 0.8 mg/dL (0.2-1)
[2021-07-22 10:03] LABS: TOT PROT 6.6 g/dl (6.4-8.2)
[2021-07-22] MEDS: PIPERACILLIN/TAZOB 2.25 GM 2.25 GM in DEXTROSE 5%-WATER - 50 ML IVPB SCH ×2 (10:05→18:32)
[2021-07-22] MEDS ORDERED: DEXTROSE 50%-WATER 25 GM/50 ML DISP.SYRIN ONE (12:35)
[2021-07-22] MEDS ORDERED: DEXTROSE 50%-WATER - 25 GM/50 ML VIAL IVPUSH ONE (12:36)
[2021-07-22] MEDS ORDERED: DEXTROSE 50%-WATER - 25 GM/50 ML VIAL IVPUSH PRN (16:57)
[2021-07-22] MEDS: INSULIN (LEVEMIR) 100 UNITS/ML UNITS SQ SCH (23:02)
[2021-07-23] MEDS ORDERED: PIPERACILLIN/TAZOBACTAM 2.25 GM VIAL IVPB ONE ×3 (00:38→16:41)
[2021-07-23] MEDS ORDERED: DEXTROSE 5%-WATER - 50 ML IVPB ONE ×3 (00:38→16:42)
[2021-07-23] MEDS: PIPERACILLIN/TAZOB 2.25 GM 2.25 GM in DEXTROSE 5%-WATER - 50 ML IVPB SCH ×3 (01:02→17:38)
[2021-07-23 04:07] VITALS: BMI 32.5
[2021-07-23] MEDS: INSULIN SLIDING SCALE (NOVOLOG) 1 VIAL SQ SCH ×4 (06:40→21:25)
[2021-07-23] MEDS: hydrALAZINE HCL 50 MG TABLET (FP) PO SCH ×3 (07:05→21:22)
[2021-07-23] MEDS: FUROSEMIDE 40 MG TABLET (FP) PO SCH ×2 (07:06→14:08)
[2021-07-23] MEDS: INSULIN (NOVOLOG MIX 70/30) 100 UNITS/ML MDV SQ SCH ×3 (07:07→17:36)
[2021-07-23] MEDS: INSULIN (LEVEMIR) 100 UNITS/ML UNITS SQ SCH ×2 (07:07→21:26)
[2021-07-23 07:46] LABS: MCH 29.7 pg (25.7-33.7); MEAN CELL VOLUME 92.7 fl (80-96); MEAN PLT VOLUME 7.1 fl (7.5-11.1); PLATELET COUNT 314 10^3/uL (134-434); RDW 22.2 % (11.9-15.9); WHITE BLOOD COUNT 14.1 K/mm3 (4.0-10.0)
[2021-07-23 08:10] LABS: ALBUMIN 2.3 g/dl (3.4-5.0); BLOOD UREA NITROGEN 32.4 mg/dL (7-18); CALCIUM 8.1 mg/dL (8.5-10.1)
[2021-07-23 08:13] LABS: CREATININE 2.2 mg/dL (0.55-1.3); PHOSPHOROUS 3.4 mg/dL (2.5-4.9)
[2021-07-23 08:15] LABS: BILIRUBIN,TOTAL 0.8 mg/dL (0.2-1); TOT PROT 5.6 g/dl (6.4-8.2)
[2021-07-23 10:02] LABS: ANISOCYTOSIS 1+; MACROCYTOSIS 1+
[2021-07-23] MEDS: ISOSORBIDE MONONITRATE 30 MG TAB.SR.24H (FP) PO SCH (10:48)
[2021-07-23] MEDS: SPIRONOLACTONE 25 MG TABLET PO SCH ×2 (10:49→21:23)
[2021-07-23] MEDS: PANTOPRAZOLE 20 MG TABLET PO SCH (10:49)
[2021-07-23] MEDS: CARVEDILOL 25 MG TABLET (FP) PO SCH ×2 (10:49→21:23)
[2021-07-23] MEDS: BACITRACIN 15 GM TUBE TOPICAL OINTMENT TP SCH ×2 (10:49→21:26)
[2021-07-23] MEDS: BUDESONIDE/FORMETEROL FUMARATE 80/4.5 mcg INHALER IH SCH ×2 (14:07→21:24)
[2021-07-24] MEDS ORDERED: PIPERACILLIN/TAZOBACTAM 2.25 GM VIAL IVPB ONE ×3 (01:05→17:31)
[2021-07-24] MEDS ORDERED: DEXTROSE 5%-WATER - 50 ML IVPB ONE ×3 (01:05→17:31)
[2021-07-24] MEDS: PIPERACILLIN/TAZOB 2.25 GM 2.25 GM in DEXTROSE 5%-WATER - 50 ML IVPB SCH ×3 (01:39→17:49)
[2021-07-24] MEDS ORDERED: ACETAMINOPHEN 325 MG TABLET (FP) PO ONE (02:41)
[2021-07-24] MEDS: hydrALAZINE HCL 50 MG TABLET (FP) PO SCH ×3 (06:22→21:13)
[2021-07-24] MEDS: FUROSEMIDE 40 MG TABLET (FP) PO SCH ×2 (06:23→14:22)
[2021-07-24] MEDS: INSULIN SLIDING SCALE (NOVOLOG) 1 VIAL SQ SCH ×4 (06:27→21:14)
[2021-07-24] MEDS: INSULIN (NOVOLOG MIX 70/30) 100 UNITS/ML MDV SQ SCH ×3 (06:27→17:28)
[2021-07-24] MEDS: INSULIN (LEVEMIR) 100 UNITS/ML UNITS SQ SCH ×2 (06:29→21:14)
[2021-07-24 08:57] LABS: HEMATOCRIT 26.1 % (35.4-49); HEMOGLOBIN 8.2 GM/dL (11.7-16.9); MCH 29.5 pg (25.7-33.7); MCHC 31.4 g/dl (32.0-35.9); MEAN CELL VOLUME 93.9 fl (80-96); MEAN PLT VOLUME 7.7 fl (7.5-11.1); PLATELET COUNT 299 10^3/uL (134-434); RBC 2.78 M/mm3 (4.00-5.60); RDW 21.7 % (11.9-15.9); WHITE BLOOD COUNT 18.5 K/mm3 (4.0-10.0)
[2021-07-24 09:35] LABS: ALBUMIN 2.6 g/dl (3.4-5.0); BLOOD UREA NITROGEN 31.7 mg/dL (7-18)
[2021-07-24 09:38] LABS: ANISOCYTOSIS 1+; CREATININE 2.3 mg/dL (0.55-1.3); MACROCYTOSIS 1+
[2021-07-24 09:40] LABS: TOT PROT 6.5 g/dl (6.4-8.2)
[2021-07-24 09:42] LABS: CALCIUM 8.3 mg/dL (8.5-10.1)
[2021-07-24 09:43] LABS: MAGNESIUM 2.1 mg/dL (1.8-2.4)
[2021-07-24 09:49] LABS: BILIRUBIN,TOTAL 0.8 mg/dL (0.2-1)
[2021-07-24] MEDS: BACITRACIN 15 GM TUBE TOPICAL OINTMENT TP SCH ×2 (11:34→21:14)
[2021-07-24] MEDS: SPIRONOLACTONE 25 MG TABLET PO SCH ×2 (11:34→21:13)
[2021-07-24] MEDS: CARVEDILOL 25 MG TABLET (FP) PO SCH ×2 (11:35→21:14)
[2021-07-24] MEDS: BUDESONIDE/FORMETEROL FUMARATE 80/4.5 mcg INHALER IH SCH ×2 (11:35→21:14)
[2021-07-24] MEDS: ISOSORBIDE MONONITRATE 30 MG TAB.SR.24H (FP) PO SCH (11:35)
[2021-07-24] MEDS: PANTOPRAZOLE 20 MG TABLET PO SCH (11:35)
[2021-07-24] MEDS: ACETAMINOPHEN 325 MG TABLET (FP) PO PRN (15:53)
[2021-07-24 17:55] LABS: COCAINE, UR POSITIVE (NEGATIVE)
[2021-07-25] MEDS ORDERED: DEXTROSE 5%-WATER - 50 ML IVPB ONE ×3 (01:29→17:31)
[2021-07-25] MEDS ORDERED: PIPERACILLIN/TAZOBACTAM 2.25 GM VIAL IVPB ONE ×3 (01:29→17:30)
[2021-07-25] MEDS: PIPERACILLIN/TAZOB 2.25 GM 2.25 GM in DEXTROSE 5%-WATER - 50 ML IVPB SCH ×3 (02:22→17:40)
[2021-07-25] MEDS: ACETAMINOPHEN 325 MG TABLET (FP) PO PRN ×3 (02:22→17:47)
[2021-07-25] MEDS: hydrALAZINE HCL 50 MG TABLET (FP) PO SCH ×3 (06:18→21:26)
[2021-07-25] MEDS: FUROSEMIDE 40 MG TABLET (FP) PO SCH ×2 (06:18→14:11)
[2021-07-25] MEDS: INSULIN (LEVEMIR) 100 UNITS/ML UNITS SQ SCH ×2 (06:22→21:28)
[2021-07-25] MEDS: INSULIN (NOVOLOG MIX 70/30) 100 UNITS/ML MDV SQ SCH ×3 (06:22→16:35)
[2021-07-25] MEDS: INSULIN SLIDING SCALE (NOVOLOG) 1 VIAL SQ SCH ×4 (06:23→21:29)
[2021-07-25 09:24] LABS: HEMATOCRIT 25.1 % (35.4-49); HEMOGLOBIN 8.1 GM/dL (11.7-16.9); WHITE BLOOD COUNT 14.3 K/mm3 (4.0-10.0)
[2021-07-25 09:25] LABS: MCH 30.1 pg (25.7-33.7); MCHC 32.3 g/dl (32.0-35.9); MEAN PLT VOLUME 7.2 fl (7.5-11.1); PLATELET COUNT 276 10^3/uL (134-434)
[2021-07-25 09:58] LABS: ALBUMIN 2.5 g/dl (3.4-5.0); CALCIUM 8.4 mg/dL (8.5-10.1)
[2021-07-25 10:02] LABS: CREATININE 2.3 mg/dL (0.55-1.3)
[2021-07-25 10:03] LABS: BILIRUBIN,TOTAL 0.8 mg/dL (0.2-1); TOT PROT 6.4 g/dl (6.4-8.2)
[2021-07-25] MEDS: CARVEDILOL 25 MG TABLET (FP) PO SCH ×2 (11:04→21:26)
[2021-07-25] MEDS: ISOSORBIDE MONONITRATE 30 MG TAB.SR.24H (FP) PO SCH (11:04)
[2021-07-25] MEDS: SPIRONOLACTONE 25 MG TABLET PO SCH ×2 (11:04→21:28)
[2021-07-25] MEDS: PANTOPRAZOLE 20 MG TABLET PO SCH (11:05)
[2021-07-25] MEDS: BACITRACIN 15 GM TUBE TOPICAL OINTMENT TP SCH ×2 (11:06→21:29)
[2021-07-25] MEDS: BUDESONIDE/FORMETEROL FUMARATE 80/4.5 mcg INHALER IH SCH ×2 (11:06→21:29)
[2021-07-25] MEDS ORDERED: traMADol HCL 50 MG TABLET PO ONE (21:01)
[2021-07-25] MEDS ORDERED: MELATONIN 5 MG TABLETS PO ONE (21:01)
[2021-07-25] MEDS: valACYclovir HCL 500 MG TABLET (FP) PO SCH (21:26)
[2021-07-26 00:06] LABS: CALCIUM 8.4 mg/dL (8.5-10.1)
[2021-07-26 00:10] LABS: CREATININE 2.7 mg/dL (0.55-1.3)
[2021-07-26] MEDS ORDERED: DEXTROSE 5%-WATER - 50 ML IVPB ONE ×3 (01:35→17:17)
[2021-07-26] MEDS ORDERED: PIPERACILLIN/TAZOBACTAM 2.25 GM VIAL IVPB ONE ×3 (01:35→17:16)
[2021-07-26] MEDS: ACETAMINOPHEN 325 MG TABLET (FP) PO PRN ×2 (01:51→10:13)
[2021-07-26] MEDS: PIPERACILLIN/TAZOB 2.25 GM 2.25 GM in DEXTROSE 5%-WATER - 50 ML IVPB SCH ×3 (01:51→17:17)
[2021-07-26] MEDS: FUROSEMIDE 40 MG TABLET (FP) PO SCH ×2 (05:46→14:59)
[2021-07-26] MEDS: hydrALAZINE HCL 50 MG TABLET (FP) PO SCH ×2 (05:46→19:32)
[2021-07-26] MEDS: INSULIN (NOVOLOG MIX 70/30) 100 UNITS/ML MDV SQ SCH ×3 (06:01→17:15)
[2021-07-26] MEDS: INSULIN SLIDING SCALE (NOVOLOG) 1 VIAL SQ SCH ×4 (06:01→21:15)
[2021-07-26] MEDS: INSULIN (LEVEMIR) 100 UNITS/ML UNITS SQ SCH ×2 (06:02→21:08)
[2021-07-26 08:50] LABS: BASO % 0.5 % (0-2.0); EOS % 0.5 % (0-4.5); HEMATOCRIT 24.1 % (35.4-49); HEMOGLOBIN 7.6 GM/dL (11.7-16.9); LYMPH % 5.6 % (8-40); MCH 29.1 pg (25.7-33.7); MCHC 31.4 g/dl (32.0-35.9); MEAN CELL VOLUME 92.8 fl (80-96); MEAN PLT VOLUME 7.3 fl (7.5-11.1); MONO % 11.3 % (3.8-10.2); NEUT % 82.1 % (42.8-82.8); PLATELET COUNT 294 10^3/uL (134-434); RDW 21.1 % (11.9-15.9); WHITE BLOOD COUNT 15.7 K/mm3 (4.0-10.0)
[2021-07-26 09:27] LABS: ALBUMIN 2.3 g/dl (3.4-5.0); BLOOD UREA NITROGEN 36.5 mg/dL (7-18)
[2021-07-26 09:28] LABS: CALCIUM 8.7 mg/dL (8.5-10.1); MAGNESIUM 2.2 mg/dL (1.8-2.4)
[2021-07-26 09:31] LABS: CREATININE 2.5 mg/dL (0.55-1.3)
[2021-07-26 09:32] LABS: BILIRUBIN,TOTAL 0.7 mg/dL (0.2-1)
[2021-07-26 09:33] LABS: TOT PROT 6.2 g/dl (6.4-8.2)
[2021-07-26] MEDS: BACITRACIN 15 GM TUBE TOPICAL OINTMENT TP SCH ×2 (10:09→21:09)
[2021-07-26] MEDS: SPIRONOLACTONE 25 MG TABLET PO SCH ×2 (10:09→21:08)
[2021-07-26] MEDS: CARVEDILOL 25 MG TABLET (FP) PO SCH ×2 (10:09→21:08)
[2021-07-26] MEDS: ISOSORBIDE MONONITRATE 30 MG TAB.SR.24H (FP) PO SCH (10:10)
[2021-07-26] MEDS: PANTOPRAZOLE 20 MG TABLET PO SCH (10:10)
[2021-07-26] MEDS: BUDESONIDE/FORMETEROL FUMARATE 80/4.5 mcg INHALER IH SCH ×2 (10:10→21:09)
[2021-07-26] MEDS: valACYclovir HCL 500 MG TABLET (FP) PO SCH ×2 (10:10→21:08)
[2021-07-26] MEDS: GABAPENTIN 300 MG CAPSULE PO SCH ×2 (14:59→21:08)
[2021-07-26] MEDS: traMADol HCL 50 MG TABLET PO PRN (21:08)
[2021-07-26] MEDS: guaiFENesin/D-M SUGAR-FREE/ACLHOL-FREE 118 ML BOTTLE PO PRN (22:13)
[2021-07-27] MEDS ORDERED: DEXTROSE 5%-WATER - 50 ML IVPB ONE ×3 (01:22→17:58)
[2021-07-27] MEDS ORDERED: PIPERACILLIN/TAZOBACTAM 2.25 GM VIAL IVPB ONE ×3 (01:22→17:58)
[2021-07-27] MEDS: PIPERACILLIN/TAZOB 2.25 GM 2.25 GM in DEXTROSE 5%-WATER - 50 ML IVPB SCH ×3 (01:29→18:26)
[2021-07-27] MEDS: traMADol HCL 50 MG TABLET PO PRN ×3 (04:28→21:17)
[2021-07-27] MEDS: FUROSEMIDE 40 MG TABLET (FP) PO SCH ×2 (05:49→13:46)
[2021-07-27] MEDS: GABAPENTIN 300 MG CAPSULE PO SCH (05:49)
[2021-07-27] MEDS: INSULIN (LEVEMIR) 100 UNITS/ML UNITS SQ SCH ×2 (06:00→21:10)
[2021-07-27] MEDS: INSULIN SLIDING SCALE (NOVOLOG) 1 VIAL SQ SCH ×4 (06:00→21:10)
[2021-07-27] MEDS: INSULIN (NOVOLOG MIX 70/30) 100 UNITS/ML MDV SQ SCH ×3 (06:00→16:56)
[2021-07-27 06:36] LABS: BASO % 0.5 % (0-2.0); EOS % 0.2 % (0-4.5); HEMATOCRIT 23.9 % (35.4-49); HEMOGLOBIN 7.6 GM/dL (11.7-16.9); LYMPH % 7.6 % (8-40); MCH 29.6 pg (25.7-33.7); MCHC 31.8 g/dl (32.0-35.9); MEAN CELL VOLUME 93.2 fl (80-96); MEAN PLT VOLUME 7.4 fl (7.5-11.1); MONO % 12.3 % (3.8-10.2); NEUT % 79.4 % (42.8-82.8); PLATELET COUNT 314 10^3/uL (134-434); RBC 2.56 M/mm3 (4.00-5.60); RDW 21.4 % (11.9-15.9); WHITE BLOOD COUNT 14.4 K/mm3 (4.0-10.0)
[2021-07-27 07:01] LABS: ALBUMIN 2.2 g/dl (3.4-5.0); BLOOD UREA NITROGEN 40.4 mg/dL (7-18); CALCIUM 8.2 mg/dL (8.5-10.1)
[2021-07-27 07:03] LABS: CREATININE 2.7 mg/dL (0.55-1.3)
[2021-07-27 07:06] LABS: BILIRUBIN,TOTAL 0.9 mg/dL (0.2-1); TOT PROT 6.3 g/dl (6.4-8.2)
[2021-07-27] MEDS: ISOSORBIDE MONONITRATE 30 MG TAB.SR.24H (FP) PO SCH (09:03)
[2021-07-27] MEDS: SPIRONOLACTONE 25 MG TABLET PO SCH ×2 (09:05→21:10)
[2021-07-27] MEDS: CARVEDILOL 25 MG TABLET (FP) PO SCH ×2 (09:05→21:10)
[2021-07-27] MEDS: PANTOPRAZOLE 20 MG TABLET PO SCH (09:05)
[2021-07-27] MEDS: BUDESONIDE/FORMETEROL FUMARATE 80/4.5 mcg INHALER IH SCH ×2 (09:06→21:11)
[2021-07-27] MEDS: BACITRACIN 15 GM TUBE TOPICAL OINTMENT TP SCH ×2 (09:06→21:10)
[2021-07-27] MEDS: valACYclovir HCL 500 MG TABLET (FP) PO SCH ×2 (11:09→21:10)
[2021-07-27] MEDS: GABAPENTIN 400 MG CAPSULE PO SCH ×2 (13:46→21:10)
[2021-07-27] MEDS: hydrALAZINE HCL 50 MG TABLET (FP) PO SCH (21:10)
[2021-07-27] MEDS: APIXABAN 5 MG TABLET PO SCH (21:11)
[2021-07-27] MEDS: guaiFENesin/D-M SUGAR-FREE/ACLHOL-FREE 118 ML BOTTLE PO PRN (21:12)
[2021-07-27] MEDS: ACETAMINOPHEN 325 MG TABLET (FP) PO PRN (21:35)
[2021-07-28] MEDS ORDERED: PIPERACILLIN/TAZOBACTAM 2.25 GM VIAL IVPB ONE ×3 (00:55→17:57)
[2021-07-28] MEDS ORDERED: DEXTROSE 5%-WATER - 50 ML IVPB ONE ×3 (00:56→17:57)
[2021-07-28] MEDS: PIPERACILLIN/TAZOB 2.25 GM 2.25 GM in DEXTROSE 5%-WATER - 50 ML IVPB SCH ×3 (01:13→18:06)
[2021-07-28] MEDS: GABAPENTIN 400 MG CAPSULE PO SCH (06:25)
[2021-07-28] MEDS: FUROSEMIDE 40 MG TABLET (FP) PO SCH ×2 (06:25→13:42)
[2021-07-28] MEDS: traMADol HCL 50 MG TABLET PO PRN ×2 (06:26→21:46)
[2021-07-28] MEDS: INSULIN (LEVEMIR) 100 UNITS/ML UNITS SQ SCH ×2 (06:31→21:46)
[2021-07-28] MEDS: INSULIN SLIDING SCALE (NOVOLOG) 1 VIAL SQ SCH ×4 (06:31→21:46)
[2021-07-28] MEDS: INSULIN (NOVOLOG MIX 70/30) 100 UNITS/ML MDV SQ SCH ×3 (06:31→16:43)
[2021-07-28] MEDS: ISOSORBIDE MONONITRATE 30 MG TAB.SR.24H (FP) PO SCH (09:33)
[2021-07-28] MEDS: hydrALAZINE HCL 50 MG TABLET (FP) PO SCH ×2 (09:34→21:45)
[2021-07-28] MEDS: APIXABAN 5 MG TABLET PO SCH ×2 (09:35→21:45)
[2021-07-28] MEDS: SPIRONOLACTONE 25 MG TABLET PO SCH ×2 (09:36→21:45)
[2021-07-28] MEDS: PANTOPRAZOLE 20 MG TABLET PO SCH (09:36)
[2021-07-28] MEDS: valACYclovir HCL 500 MG TABLET (FP) PO SCH ×2 (09:36→21:45)
[2021-07-28] MEDS: BUDESONIDE/FORMETEROL FUMARATE 80/4.5 mcg INHALER IH SCH ×2 (09:36→21:51)
[2021-07-28] MEDS: CARVEDILOL 25 MG TABLET (FP) PO SCH ×2 (09:36→21:45)
[2021-07-28] MEDS: BACITRACIN 15 GM TUBE TOPICAL OINTMENT TP SCH ×2 (09:37→21:52)
[2021-07-28 12:48] LABS: BASO % 0.3 % (0-2.0); EOS % 0.4 % (0-4.5); HEMATOCRIT 24.3 % (35.4-49); HEMOGLOBIN 7.6 GM/dL (11.7-16.9); LYMPH % 5.8 % (8-40); MCH 29.2 pg (25.7-33.7); MCHC 31.4 g/dl (32.0-35.9); MEAN CELL VOLUME 93.1 fl (80-96); MEAN PLT VOLUME 6.9 fl (7.5-11.1); MONO % 10.9 % (3.8-10.2); NEUT % 82.6 % (42.8-82.8); PLATELET COUNT 371 10^3/uL (134-434); RBC 2.61 M/mm3 (4.00-5.60); RDW 20.7 % (11.9-15.9); WHITE BLOOD COUNT 14.1 K/mm3 (4.0-10.0)
[2021-07-28 13:09] LABS: ALBUMIN 2.2 g/dl (3.4-5.0); BLOOD UREA NITROGEN 41.1 mg/dL (7-18); CALCIUM 8.5 mg/dL (8.5-10.1); MAGNESIUM 2.1 mg/dL (1.8-2.4)
[2021-07-28 13:12] LABS: CREATININE 2.7 mg/dL (0.55-1.3)
[2021-07-28 13:14] LABS: BILIRUBIN,TOTAL 0.9 mg/dL (0.2-1); TOT PROT 6.8 g/dl (6.4-8.2)
[2021-07-28] MEDS: ACETAMINOPHEN 325 MG TABLET (FP) PO PRN ×2 (13:42→23:54)
[2021-07-28 13:55] LABS: ANISOCYTOSIS 1+; MACROCYTOSIS 1+
[2021-07-28] MEDS: COLLAGENASE CLOSTRIDIUM HIST. 30 GRAMS TUBE TP SCH (14:31)
[2021-07-28] MEDS ORDERED: FUROSEMIDE 40 MG TABLET (FP) PO SCH (14:50)
[2021-07-28] MEDS: SODIUM CHLORIDE 1 GM TABLET PO SCH (21:45)
[2021-07-29] MEDS ORDERED: PIPERACILLIN/TAZOBACTAM 2.25 GM VIAL IVPB ONE ×4 (01:08→17:13)
[2021-07-29] MEDS ORDERED: DEXTROSE 5%-WATER - 50 ML IVPB ONE ×3 (01:08→17:13)
[2021-07-29] MEDS: PIPERACILLIN/TAZOB 2.25 GM 2.25 GM in DEXTROSE 5%-WATER - 50 ML IVPB SCH ×3 (01:33→17:24)
[2021-07-29] MEDS: INSULIN (NOVOLOG MIX 70/30) 100 UNITS/ML MDV SQ SCH ×3 (06:43→16:45)
[2021-07-29] MEDS: INSULIN SLIDING SCALE (NOVOLOG) 1 VIAL SQ SCH ×4 (06:43→22:06)
[2021-07-29] MEDS: INSULIN (LEVEMIR) 100 UNITS/ML UNITS SQ SCH ×2 (06:44→22:05)
[2021-07-29 07:54] LABS: BASO % 0.4 % (0-2.0); EOS % 0.5 % (0-4.5); HEMATOCRIT 22.9 % (35.4-49); HEMOGLOBIN 7.3 GM/dL (11.7-16.9); LYMPH % 6.8 % (8-40); MCH 29.3 pg (25.7-33.7); MCHC 31.7 g/dl (32.0-35.9); MEAN CELL VOLUME 92.2 fl (80-96); MEAN PLT VOLUME 7.1 fl (7.5-11.1); MONO % 11.6 % (3.8-10.2); NEUT % 80.7 % (42.8-82.8); PLATELET COUNT 363 10^3/uL (134-434); RBC 2.49 M/mm3 (4.00-5.60); RDW 20.9 % (11.9-15.9); WHITE BLOOD COUNT 15.2 K/mm3 (4.0-10.0)
[2021-07-29 08:11] LABS: CALCIUM 8.6 mg/dL (8.5-10.1)
[2021-07-29 08:12] LABS: ALBUMIN 2.2 g/dl (3.4-5.0); MAGNESIUM 2.3 mg/dL (1.8-2.4)
[2021-07-29 08:15] LABS: CREATININE 3.1 mg/dL (0.55-1.3)
[2021-07-29 08:16] LABS: TOT PROT 6.8 g/dl (6.4-8.2)
[2021-07-29 08:17] LABS: BILIRUBIN,TOTAL 0.7 mg/dL (0.2-1)
[2021-07-29] MEDS: PANTOPRAZOLE 20 MG TABLET PO SCH (09:20)
[2021-07-29] MEDS: APIXABAN 5 MG TABLET PO SCH ×2 (09:20→22:03)
[2021-07-29] MEDS: ISOSORBIDE MONONITRATE 30 MG TAB.SR.24H (FP) PO SCH (09:21)
[2021-07-29] MEDS: CARVEDILOL 25 MG TABLET (FP) PO SCH ×2 (09:21→22:03)
[2021-07-29] MEDS: SPIRONOLACTONE 25 MG TABLET PO SCH ×2 (09:21→22:03)
[2021-07-29] MEDS: hydrALAZINE HCL 50 MG TABLET (FP) PO SCH ×2 (09:21→22:02)
[2021-07-29] MEDS: valACYclovir HCL 500 MG TABLET (FP) PO SCH ×2 (09:22→22:03)
[2021-07-29] MEDS: SODIUM CHLORIDE 1 GM TABLET PO SCH ×2 (09:22→22:02)
[2021-07-29] MEDS: guaiFENesin/D-M SUGAR-FREE/ACLHOL-FREE 118 ML BOTTLE PO PRN (09:23)
[2021-07-29] MEDS: BACITRACIN 15 GM TUBE TOPICAL OINTMENT TP SCH ×2 (09:26→22:05)
[2021-07-29] MEDS: COLLAGENASE CLOSTRIDIUM HIST. 30 GRAMS TUBE TP SCH (09:27)
[2021-07-29] MEDS: BUDESONIDE/FORMETEROL FUMARATE 80/4.5 mcg INHALER IH SCH ×2 (09:28→22:30)
[2021-07-29] MEDS: traMADol HCL 50 MG TABLET PO PRN ×2 (13:48→22:04)
[2021-07-29] MEDS: FUROSEMIDE 40 MG TABLET (FP) PO SCH (13:49)
[2021-07-29] MEDS: ACETAMINOPHEN 325 MG TABLET (FP) PO PRN (17:25)
[2021-07-30] MEDS ORDERED: PIPERACILLIN/TAZOBACTAM 2.25 GM VIAL IVPB ONE ×3 (01:19→17:03)
[2021-07-30] MEDS ORDERED: DEXTROSE 5%-WATER - 50 ML IVPB ONE ×3 (01:19→17:03)
[2021-07-30] MEDS: guaiFENesin/D-M SUGAR-FREE/ACLHOL-FREE 118 ML BOTTLE PO PRN (01:27)
[2021-07-30] MEDS: PIPERACILLIN/TAZOB 2.25 GM 2.25 GM in DEXTROSE 5%-WATER - 50 ML IVPB SCH ×3 (01:27→17:04)
[2021-07-30] MEDS: FUROSEMIDE 40 MG TABLET (FP) PO SCH ×2 (06:03→15:47)
[2021-07-30] MEDS: traMADol HCL 50 MG TABLET PO PRN ×3 (06:03→21:52)
[2021-07-30] MEDS: INSULIN (LEVEMIR) 100 UNITS/ML UNITS SQ SCH ×2 (06:04→21:55)
[2021-07-30] MEDS: INSULIN (NOVOLOG MIX 70/30) 100 UNITS/ML MDV SQ SCH ×3 (06:05→18:15)
[2021-07-30] MEDS: INSULIN SLIDING SCALE (NOVOLOG) 1 VIAL SQ SCH ×4 (06:05→21:56)
[2021-07-30] MEDS ORDERED: INSULIN (LEVEMIR) 100 UNITS/ML UNITS SQ ONE (06:52)
[2021-07-30] MEDS ORDERED: INSULIN (NOVOLOG MIX 70/30) 100 UNITS/ML MDV SQ ONE (06:52)
[2021-07-30] MEDS ORDERED: INSULIN SLIDING SCALE (NOVOLOG) 1 VIAL SQ ONE ×2 (06:52→11:24)
[2021-07-30] MEDS: SPIRONOLACTONE 25 MG TABLET PO SCH ×2 (09:49→21:48)
[2021-07-30] MEDS: ISOSORBIDE MONONITRATE 30 MG TAB.SR.24H (FP) PO SCH (09:49)
[2021-07-30] MEDS: PANTOPRAZOLE 20 MG TABLET PO SCH (09:50)
[2021-07-30] MEDS: APIXABAN 5 MG TABLET PO SCH ×2 (09:50→21:48)
[2021-07-30] MEDS: valACYclovir HCL 500 MG TABLET (FP) PO SCH ×2 (09:50→21:52)
[2021-07-30] MEDS: CARVEDILOL 25 MG TABLET (FP) PO SCH ×2 (09:50→21:48)
[2021-07-30] MEDS: hydrALAZINE HCL 50 MG TABLET (FP) PO SCH ×2 (09:51→21:49)
[2021-07-30] MEDS: SODIUM CHLORIDE 1 GM TABLET PO SCH ×2 (09:51→21:52)
[2021-07-30] MEDS: BUDESONIDE/FORMETEROL FUMARATE 80/4.5 mcg INHALER IH SCH ×2 (10:00→21:53)
[2021-07-30] MEDS: COLLAGENASE CLOSTRIDIUM HIST. 30 GRAMS TUBE TP SCH (10:52)
[2021-07-30] MEDS: BACITRACIN 15 GM TUBE TOPICAL OINTMENT TP SCH ×2 (10:52→21:53)
[2021-07-30 12:48] LABS: BASO % 0.9 % (0-2.0); EOS % 0.6 % (0-4.5); HEMATOCRIT 23.9 % (35.4-49); HEMOGLOBIN 7.6 GM/dL (11.7-16.9); LYMPH % 4.2 % (8-40); MCH 28.8 pg (25.7-33.7); MCHC 31.8 g/dl (32.0-35.9); MEAN CELL VOLUME 90.6 fl (80-96); MEAN PLT VOLUME 7.1 fl (7.5-11.1); MONO % 9.5 % (3.8-10.2); NEUT % 84.8 % (42.8-82.8); PLATELET COUNT 452 10^3/uL (134-434); RBC 2.64 M/mm3 (4.00-5.60); RDW 20.5 % (11.9-15.9); WHITE BLOOD COUNT 15.9 K/mm3 (4.0-10.0)
[2021-07-30 13:05] LABS: CALCIUM 9.2 mg/dL (8.5-10.1)
[2021-07-30 13:06] LABS: ALBUMIN 2.2 g/dl (3.4-5.0); BLOOD UREA NITROGEN 47.9 mg/dL (7-18); MAGNESIUM 2.2 mg/dL (1.8-2.4)
[2021-07-30 13:09] LABS: CREATININE 2.4 mg/dL (0.55-1.3)
[2021-07-30 13:11] LABS: BILIRUBIN,TOTAL 1.1 mg/dL (0.2-1); TOT PROT 7.3 g/dl (6.4-8.2)
[2021-07-30] MEDS: ACETAMINOPHEN 325 MG TABLET (FP) PO PRN (17:05)
[2021-07-31] MEDS ORDERED: PIPERACILLIN/TAZOBACTAM 2.25 GM VIAL IVPB ONE ×3 (01:04→17:05)
[2021-07-31] MEDS ORDERED: DEXTROSE 5%-WATER - 50 ML IVPB ONE ×3 (01:05→17:06)
[2021-07-31] MEDS: PIPERACILLIN/TAZOB 2.25 GM 2.25 GM in DEXTROSE 5%-WATER - 50 ML IVPB SCH ×3 (01:24→17:21)
[2021-07-31] MEDS: traMADol HCL 50 MG TABLET PO PRN ×3 (06:40→22:22)
[2021-07-31] MEDS: FUROSEMIDE 40 MG TABLET (FP) PO SCH ×2 (06:40→14:15)
[2021-07-31] MEDS: INSULIN (LEVEMIR) 100 UNITS/ML UNITS SQ SCH ×2 (06:42→22:24)
[2021-07-31] MEDS: INSULIN (NOVOLOG MIX 70/30) 100 UNITS/ML MDV SQ SCH ×3 (06:42→18:40)
[2021-07-31] MEDS: guaiFENesin/D-M SUGAR-FREE/ACLHOL-FREE 118 ML BOTTLE PO PRN (06:44)
[2021-07-31] MEDS ORDERED: INSULIN SLIDING SCALE (NOVOLOG) 1 VIAL SQ ONE (06:59)
[2021-07-31] MEDS: INSULIN SLIDING SCALE (NOVOLOG) 1 VIAL SQ SCH ×4 (06:59→22:24)
[2021-07-31] MEDS ORDERED: INSULIN (NOVOLOG MIX 70/30) 100 UNITS/ML MDV SQ ONE (07:00)
[2021-07-31] MEDS ORDERED: INSULIN (LEVEMIR) 100 UNITS/ML UNITS SQ ONE (07:00)
[2021-07-31 07:30] LABS: BASO % 0.5 % (0-2.0); HEMATOCRIT 22.5 % (35.4-49); HEMOGLOBIN 7.2 GM/dL (11.7-16.9); LYMPH % 6.4 % (8-40); MCH 28.7 pg (25.7-33.7); MCHC 32.1 g/dl (32.0-35.9); MEAN CELL VOLUME 89.4 fl (80-96); MEAN PLT VOLUME 6.7 fl (7.5-11.1); MONO % 10.6 % (3.8-10.2); NEUT % 81.5 % (42.8-82.8); PLATELET COUNT 464 10^3/uL (134-434); RBC 2.52 M/mm3 (4.00-5.60); RDW 20.5 % (11.9-15.9); WHITE BLOOD COUNT 14.3 K/mm3 (4.0-10.0)
[2021-07-31 07:58] LABS: CALCIUM 9.3 mg/dL (8.5-10.1)
[2021-07-31 07:59] LABS: BLOOD UREA NITROGEN 46.2 mg/dL (7-18); MAGNESIUM 2.3 mg/dL (1.8-2.4)
[2021-07-31 08:02] LABS: CREATININE 2.4 mg/dL (0.55-1.3)
[2021-07-31 08:03] LABS: TOT PROT 6.9 g/dl (6.4-8.2)
[2021-07-31 08:04] LABS: BILIRUBIN,TOTAL 0.9 mg/dL (0.2-1)
[2021-07-31] MEDS: SODIUM CHLORIDE 1 GM TABLET PO SCH ×2 (09:42→22:23)
[2021-07-31] MEDS: SPIRONOLACTONE 25 MG TABLET PO SCH ×2 (09:42→22:22)
[2021-07-31] MEDS: APIXABAN 5 MG TABLET PO SCH ×2 (09:42→22:22)
[2021-07-31] MEDS: valACYclovir HCL 500 MG TABLET (FP) PO SCH ×2 (09:42→22:23)
[2021-07-31] MEDS: PANTOPRAZOLE 20 MG TABLET PO SCH (09:42)
[2021-07-31] MEDS: ISOSORBIDE MONONITRATE 30 MG TAB.SR.24H (FP) PO SCH (09:42)
[2021-07-31] MEDS: CARVEDILOL 25 MG TABLET (FP) PO SCH ×2 (09:43→22:22)
[2021-07-31] MEDS: hydrALAZINE HCL 50 MG TABLET (FP) PO SCH ×2 (09:43→22:23)
[2021-07-31] MEDS: BUDESONIDE/FORMETEROL FUMARATE 80/4.5 mcg INHALER IH SCH ×2 (09:43→22:23)
[2021-07-31] MEDS: COLLAGENASE CLOSTRIDIUM HIST. 30 GRAMS TUBE TP SCH (09:43)
[2021-07-31] MEDS: BACITRACIN 15 GM TUBE TOPICAL OINTMENT TP SCH ×2 (09:43→23:23)
[2021-08-01] MEDS ORDERED: PIPERACILLIN/TAZOBACTAM 2.25 GM VIAL IVPB ONE ×3 (01:28→17:06)
[2021-08-01] MEDS ORDERED: DEXTROSE 5%-WATER - 50 ML IVPB ONE ×3 (01:28→17:06)
[2021-08-01] MEDS: PIPERACILLIN/TAZOB 2.25 GM 2.25 GM in DEXTROSE 5%-WATER - 50 ML IVPB SCH ×3 (01:37→17:13)
[2021-08-01] MEDS: FUROSEMIDE 40 MG TABLET (FP) PO SCH ×2 (06:24→13:24)
[2021-08-01 07:21] LABS: BASO % 0.8 % (0-2.0); EOS % 1.3 % (0-4.5); HEMATOCRIT 23.8 % (35.4-49); HEMOGLOBIN 7.6 GM/dL (11.7-16.9); LYMPH % 6.4 % (8-40); MCH 28.9 pg (25.7-33.7); MCHC 31.9 g/dl (32.0-35.9); MEAN CELL VOLUME 90.7 fl (80-96); MEAN PLT VOLUME 6.9 fl (7.5-11.1); MONO % 12.2 % (3.8-10.2); NEUT % 79.3 % (42.8-82.8); PLATELET COUNT 506 10^3/uL (134-434); RBC 2.62 M/mm3 (4.00-5.60); RDW 20.6 % (11.9-15.9); WHITE BLOOD COUNT 13.7 K/mm3 (4.0-10.0)
[2021-08-01] MEDS: INSULIN SLIDING SCALE (NOVOLOG) 1 VIAL SQ SCH ×4 (07:32→21:35)
[2021-08-01] MEDS: INSULIN (LEVEMIR) 100 UNITS/ML UNITS SQ SCH ×2 (07:37→21:36)
[2021-08-01] MEDS: INSULIN (NOVOLOG MIX 70/30) 100 UNITS/ML MDV SQ SCH ×2 (07:37→11:02)
[2021-08-01 07:53] LABS: BLOOD UREA NITROGEN 44.2 mg/dL (7-18); CALCIUM 8.9 mg/dL (8.5-10.1)
[2021-08-01 07:54] LABS: MAGNESIUM 2.3 mg/dL (1.8-2.4)
[2021-08-01 07:56] LABS: CREATININE 2.4 mg/dL (0.55-1.3)
[2021-08-01 07:57] LABS: BILIRUBIN,TOTAL 0.8 mg/dL (0.2-1); TOT PROT 7.2 g/dl (6.4-8.2)
[2021-08-01] MEDS: SPIRONOLACTONE 25 MG TABLET PO SCH ×2 (09:31→21:26)
[2021-08-01] MEDS: hydrALAZINE HCL 50 MG TABLET (FP) PO SCH ×2 (09:31→21:27)
[2021-08-01] MEDS: CARVEDILOL 25 MG TABLET (FP) PO SCH ×2 (09:32→21:27)
[2021-08-01] MEDS: PANTOPRAZOLE 20 MG TABLET PO SCH (09:33)
[2021-08-01] MEDS: SODIUM CHLORIDE 1 GM TABLET PO SCH ×2 (09:34→21:27)
[2021-08-01] MEDS: valACYclovir HCL 500 MG TABLET (FP) PO SCH ×2 (09:34→21:32)
[2021-08-01] MEDS: BUDESONIDE/FORMETEROL FUMARATE 80/4.5 mcg INHALER IH SCH ×2 (09:34→21:32)
[2021-08-01] MEDS: APIXABAN 5 MG TABLET PO SCH ×2 (09:36→21:27)
[2021-08-01] MEDS: COLLAGENASE CLOSTRIDIUM HIST. 30 GRAMS TUBE TP SCH (10:06)
[2021-08-01] MEDS: BACITRACIN 15 GM TUBE TOPICAL OINTMENT TP SCH ×2 (10:06→21:27)
[2021-08-01] MEDS: ISOSORBIDE MONONITRATE 30 MG TAB.SR.24H (FP) PO SCH (10:07)
[2021-08-01 15:34] LABS: ANISOCYTOSIS 2+; OVALOCYTE 2+; TEAR DROP CELLS 2+
[2021-08-01 15:35] LABS: PLATELET ESTIMATE INCREASED
[2021-08-01] MEDS: ACETAMINOPHEN 325 MG TABLET (FP) PO PRN (15:37)
[2021-08-01] MEDS: traMADol HCL 50 MG TABLET PO PRN (21:33)
[2021-08-02] MEDS ORDERED: DEXTROSE 5%-WATER - 50 ML IVPB ONE ×3 (01:33→17:00)
[2021-08-02] MEDS ORDERED: PIPERACILLIN/TAZOBACTAM 2.25 GM VIAL IVPB ONE ×3 (01:33→17:00)
[2021-08-02] MEDS: PIPERACILLIN/TAZOB 2.25 GM 2.25 GM in DEXTROSE 5%-WATER - 50 ML IVPB SCH ×3 (02:32→17:01)
[2021-08-02] MEDS: traMADol HCL 50 MG TABLET PO PRN (04:18)
[2021-08-02] MEDS: FUROSEMIDE 40 MG TABLET (FP) PO SCH ×2 (06:32→13:37)
[2021-08-02] MEDS: INSULIN (LEVEMIR) 100 UNITS/ML UNITS SQ SCH ×2 (06:32→22:30)
[2021-08-02] MEDS: INSULIN SLIDING SCALE (NOVOLOG) 1 VIAL SQ SCH ×4 (06:34→22:37)
[2021-08-02] MEDS: ACETAMINOPHEN 325 MG TABLET (FP) PO PRN ×2 (08:38→15:46)
[2021-08-02 08:51] LABS: BASO % 0.4 % (0-2.0); EOS % 1.7 % (0-4.5); HEMATOCRIT 25.3 % (35.4-49); HEMOGLOBIN 7.9 GM/dL (11.7-16.9); LYMPH % 6.1 % (8-40); MCH 28.3 pg (25.7-33.7); MCHC 31.4 g/dl (32.0-35.9); MEAN CELL VOLUME 90.3 fl (80-96); MEAN PLT VOLUME 6.5 fl (7.5-11.1); MONO % 9.2 % (3.8-10.2); NEUT % 82.6 % (42.8-82.8); PLATELET COUNT 563 10^3/uL (134-434); RBC 2.81 M/mm3 (4.00-5.60); RDW 20.4 % (11.9-15.9); WHITE BLOOD COUNT 15.1 K/mm3 (4.0-10.0)
[2021-08-02 09:15] LABS: CALCIUM 9.2 mg/dL (8.5-10.1)
[2021-08-02 09:16] LABS: BLOOD UREA NITROGEN 39.9 mg/dL (7-18); MAGNESIUM 2.3 mg/dL (1.8-2.4)
[2021-08-02 09:18] LABS: ALBUMIN 1.9 g/dl (3.4-5.0)
[2021-08-02 09:19] LABS: CREATININE 2.4 mg/dL (0.55-1.3)
[2021-08-02 09:20] LABS: BILIRUBIN,TOTAL 0.8 mg/dL (0.2-1)
[2021-08-02 09:21] LABS: TOT PROT 7.2 g/dl (6.4-8.2)
[2021-08-02] MEDS: CARVEDILOL 25 MG TABLET (FP) PO SCH ×2 (10:02→22:27)
[2021-08-02] MEDS: PANTOPRAZOLE 20 MG TABLET PO SCH (10:02)
[2021-08-02] MEDS: hydrALAZINE HCL 50 MG TABLET (FP) PO SCH ×2 (10:02→22:29)
[2021-08-02] MEDS: SPIRONOLACTONE 25 MG TABLET PO SCH ×2 (10:02→22:28)
[2021-08-02] MEDS: APIXABAN 5 MG TABLET PO SCH ×2 (10:03→22:29)
[2021-08-02] MEDS: ISOSORBIDE MONONITRATE 30 MG TAB.SR.24H (FP) PO SCH (10:03)
[2021-08-02] MEDS: BACITRACIN 15 GM TUBE TOPICAL OINTMENT TP SCH ×2 (10:04→22:29)
[2021-08-02] MEDS: SODIUM CHLORIDE 1 GM TABLET PO SCH ×2 (10:04→22:30)
[2021-08-02] MEDS: BUDESONIDE/FORMETEROL FUMARATE 80/4.5 mcg INHALER IH SCH ×2 (10:04→22:31)
[2021-08-02] MEDS: valACYclovir HCL 500 MG TABLET (FP) PO SCH ×2 (10:04→22:27)
[2021-08-02] MEDS: COLLAGENASE CLOSTRIDIUM HIST. 30 GRAMS TUBE TP SCH (10:04)
[2021-08-03] MEDS ORDERED: DEXTROSE 5%-WATER - 50 ML IVPB ONE ×3 (01:12→16:57)
[2021-08-03] MEDS ORDERED: PIPERACILLIN/TAZOBACTAM 2.25 GM VIAL IVPB ONE ×3 (01:12→16:57)
[2021-08-03] MEDS: PIPERACILLIN/TAZOB 2.25 GM 2.25 GM in DEXTROSE 5%-WATER - 50 ML IVPB SCH ×3 (01:20→17:09)
[2021-08-03] MEDS: FUROSEMIDE 40 MG TABLET (FP) PO SCH ×2 (06:53→13:29)
[2021-08-03] MEDS: INSULIN (LEVEMIR) 100 UNITS/ML UNITS SQ SCH ×2 (06:54→21:38)
[2021-08-03] MEDS: INSULIN SLIDING SCALE (NOVOLOG) 1 VIAL SQ SCH ×4 (07:02→21:38)
[2021-08-03 08:42] LABS: BASO % 0.9 % (0-2.0); EOS % 2.9 % (0-4.5); HEMATOCRIT 23.6 % (35.4-49); HEMOGLOBIN 7.6 GM/dL (11.7-16.9); MCH 28.9 pg (25.7-33.7); MCHC 32.2 g/dl (32.0-35.9); MEAN CELL VOLUME 89.7 fl (80-96); MEAN PLT VOLUME 6.7 fl (7.5-11.1); MONO % 8.7 % (3.8-10.2); NEUT % 80.5 % (42.8-82.8); PLATELET COUNT 626 10^3/uL (134-434); RBC 2.63 M/mm3 (4.00-5.60); RDW 20.9 % (11.9-15.9); WHITE BLOOD COUNT 15.2 K/mm3 (4.0-10.0)
[2021-08-03 09:00] LABS: CALCIUM 9.1 mg/dL (8.5-10.1)
[2021-08-03 09:01] LABS: ALBUMIN 2.1 g/dl (3.4-5.0); BLOOD UREA NITROGEN 44.9 mg/dL (7-18)
[2021-08-03 09:04] LABS: CREATININE 2.3 mg/dL (0.55-1.3)
[2021-08-03 09:05] LABS: TOT PROT 7.3 g/dl (6.4-8.2)
[2021-08-03 09:06] LABS: BILIRUBIN,TOTAL 0.6 mg/dL (0.2-1)
[2021-08-03] MEDS: CARVEDILOL 25 MG TABLET (FP) PO SCH ×2 (09:22→21:37)
[2021-08-03] MEDS: ACETAMINOPHEN 325 MG TABLET (FP) PO PRN (09:22)
[2021-08-03] MEDS: SPIRONOLACTONE 25 MG TABLET PO SCH ×2 (09:22→21:37)
[2021-08-03] MEDS: ISOSORBIDE MONONITRATE 30 MG TAB.SR.24H (FP) PO SCH (09:22)
[2021-08-03] MEDS: APIXABAN 5 MG TABLET PO SCH ×2 (09:23→21:38)
[2021-08-03] MEDS: hydrALAZINE HCL 50 MG TABLET (FP) PO SCH ×2 (09:23→21:37)
[2021-08-03] MEDS: BUDESONIDE/FORMETEROL FUMARATE 80/4.5 mcg INHALER IH SCH ×2 (09:24→21:38)
[2021-08-03] MEDS: SODIUM CHLORIDE 1 GM TABLET PO SCH ×2 (09:24→21:38)
[2021-08-03] MEDS: PANTOPRAZOLE 20 MG TABLET PO SCH (09:24)
[2021-08-03] MEDS: valACYclovir HCL 500 MG TABLET (FP) PO SCH ×2 (09:24→22:09)
[2021-08-03] MEDS: BACITRACIN 15 GM TUBE TOPICAL OINTMENT TP SCH ×2 (11:36→22:08)
[2021-08-03] MEDS: COLLAGENASE CLOSTRIDIUM HIST. 30 GRAMS TUBE TP SCH (11:37)
[2021-08-03] MEDS: traMADol HCL 50 MG TABLET PO PRN (12:25)
[2021-08-04] MEDS ORDERED: DEXTROSE 5%-WATER - 50 ML IVPB ONE ×3 (02:02→15:24)
[2021-08-04] MEDS ORDERED: PIPERACILLIN/TAZOBACTAM 2.25 GM VIAL IVPB ONE ×3 (02:02→15:24)
[2021-08-04] MEDS: PIPERACILLIN/TAZOB 2.25 GM 2.25 GM in DEXTROSE 5%-WATER - 50 ML IVPB SCH ×3 (02:11→17:13)
[2021-08-04] MEDS: FUROSEMIDE 40 MG TABLET (FP) PO SCH ×2 (06:21→13:48)
[2021-08-04] MEDS: INSULIN (LEVEMIR) 100 UNITS/ML UNITS SQ SCH ×2 (06:21→21:38)
[2021-08-04] MEDS: INSULIN SLIDING SCALE (NOVOLOG) 1 VIAL SQ SCH ×4 (06:21→21:38)
[2021-08-04 08:28] LABS: BASO % 0.9 % (0-2.0); EOS % 3.5 % (0-4.5); HEMATOCRIT 24.3 % (35.4-49); HEMOGLOBIN 7.8 GM/dL (11.7-16.9); LYMPH % 9.4 % (8-40); MCH 29.2 pg (25.7-33.7); MEAN PLT VOLUME 6.6 fl (7.5-11.1); MONO % 7.8 % (3.8-10.2); NEUT % 78.4 % (42.8-82.8); PLATELET COUNT 691 10^3/uL (134-434); RBC 2.67 M/mm3 (4.00-5.60); RDW 20.7 % (11.9-15.9); WHITE BLOOD COUNT 14.3 K/mm3 (4.0-10.0)
[2021-08-04] MEDS: ISOSORBIDE MONONITRATE 30 MG TAB.SR.24H (FP) PO SCH (09:00)
[2021-08-04] MEDS: CARVEDILOL 25 MG TABLET (FP) PO SCH ×2 (09:01→21:37)
[2021-08-04] MEDS: hydrALAZINE HCL 50 MG TABLET (FP) PO SCH ×2 (09:01→21:37)
[2021-08-04] MEDS: traMADol HCL 50 MG TABLET PO PRN (09:01)
[2021-08-04] MEDS: BUDESONIDE/FORMETEROL FUMARATE 80/4.5 mcg INHALER IH SCH ×2 (09:02→21:39)
[2021-08-04] MEDS: APIXABAN 5 MG TABLET PO SCH ×2 (09:02→21:38)
[2021-08-04] MEDS: valACYclovir HCL 500 MG TABLET (FP) PO SCH ×2 (09:02→21:37)
[2021-08-04] MEDS: PANTOPRAZOLE 20 MG TABLET PO SCH (09:02)
[2021-08-04] MEDS: SPIRONOLACTONE 25 MG TABLET PO SCH ×2 (09:02→21:37)
[2021-08-04] MEDS: SODIUM CHLORIDE 1 GM TABLET PO SCH (09:02)
[2021-08-04 09:22] LABS: CREATININE 2.3 mg/dL (0.55-1.3)
[2021-08-04 09:23] LABS: CALCIUM 9.4 mg/dL (8.5-10.1)
[2021-08-04 09:32] LABS: BLOOD UREA NITROGEN 45.9 mg/dL (7-18)
[2021-08-04 10:18] LABS: ANISOCYTOSIS 1+; MACROCYTOSIS 1+; TARGET CELLS 1+
[2021-08-04] MEDS ORDERED: dilTIAZem HCL 50 MG/10 ML - 10 ML VIAL IVPUSH ONE (11:16)
[2021-08-04] MEDS ORDERED: dilTIAZem HCL 25 MG/5 ML - 5 ML VIAL IVPUSH ONE (11:30)
[2021-08-04] MEDS: COLLAGENASE CLOSTRIDIUM HIST. 30 GRAMS TUBE TP SCH (13:48)
[2021-08-04] MEDS: BACITRACIN 15 GM TUBE TOPICAL OINTMENT TP SCH ×2 (13:49→21:38)
[2021-08-05] MEDS ORDERED: DEXTROSE 5%-WATER - 50 ML IVPB ONE ×3 (01:32→17:09)
[2021-08-05] MEDS ORDERED: PIPERACILLIN/TAZOBACTAM 2.25 GM VIAL IVPB ONE ×3 (01:32→17:08)
[2021-08-05] MEDS: PIPERACILLIN/TAZOB 2.25 GM 2.25 GM in DEXTROSE 5%-WATER - 50 ML IVPB SCH ×3 (01:49→17:09)
[2021-08-05] MEDS: INSULIN (LEVEMIR) 100 UNITS/ML UNITS SQ SCH ×2 (06:27→21:53)
[2021-08-05] MEDS: FUROSEMIDE 40 MG TABLET (FP) PO SCH ×2 (06:27→14:28)
[2021-08-05] MEDS: INSULIN SLIDING SCALE (NOVOLOG) 1 VIAL SQ SCH ×4 (06:28→22:12)
[2021-08-05 08:51] LABS: EOS % 3.8 % (0-4.5); HEMATOCRIT 25.1 % (35.4-49); HEMOGLOBIN 8.1 GM/dL (11.7-16.9); LYMPH % 11.6 % (8-40); MCHC 32.1 g/dl (32.0-35.9); MEAN CELL VOLUME 90.3 fl (80-96); MEAN PLT VOLUME 6.7 fl (7.5-11.1); MONO % 6.7 % (3.8-10.2); NEUT % 76.9 % (42.8-82.8); PLATELET COUNT 802 10^3/uL (134-434); RBC 2.78 M/mm3 (4.00-5.60); RDW 20.9 % (11.9-15.9); WHITE BLOOD COUNT 14.2 K/mm3 (4.0-10.0)
[2021-08-05] MEDS: CARVEDILOL 25 MG TABLET (FP) PO SCH ×2 (09:00→21:52)
[2021-08-05] MEDS: SPIRONOLACTONE 25 MG TABLET PO SCH ×2 (09:01→21:52)
[2021-08-05] MEDS: ISOSORBIDE MONONITRATE 30 MG TAB.SR.24H (FP) PO SCH (09:01)
[2021-08-05] MEDS: traMADol HCL 50 MG TABLET PO PRN ×2 (09:02→17:10)
[2021-08-05] MEDS: PANTOPRAZOLE 20 MG TABLET PO SCH (09:02)
[2021-08-05] MEDS: APIXABAN 5 MG TABLET PO SCH (09:02)
[2021-08-05] MEDS: hydrALAZINE HCL 50 MG TABLET (FP) PO SCH ×2 (09:04→21:52)
[2021-08-05] MEDS: BACITRACIN 15 GM TUBE TOPICAL OINTMENT TP SCH ×2 (09:04→21:52)
[2021-08-05 09:13] LABS: ALBUMIN 2.3 g/dl (3.4-5.0); CALCIUM 9.5 mg/dL (8.5-10.1)
[2021-08-05 09:14] LABS: BLOOD UREA NITROGEN 44.5 mg/dL (7-18)
[2021-08-05 09:15] LABS: MAGNESIUM 2.1 mg/dL (1.8-2.4)
[2021-08-05 09:16] LABS: CREATININE 2.3 mg/dL (0.55-1.3)
[2021-08-05 09:18] LABS: BILIRUBIN,TOTAL 0.5 mg/dL (0.2-1)
[2021-08-05] MEDS: BUDESONIDE/FORMETEROL FUMARATE 80/4.5 mcg INHALER IH SCH ×2 (11:13→21:53)
[2021-08-05] MEDS: valACYclovir HCL 500 MG TABLET (FP) PO SCH ×2 (11:13→21:53)
[2021-08-05] MEDS: COLLAGENASE CLOSTRIDIUM HIST. 30 GRAMS TUBE TP SCH (11:14)
[2021-08-05] MEDS: ACETAMINOPHEN 325 MG TABLET (FP) PO PRN ×2 (14:28→21:56)
[2021-08-06] MEDS ORDERED: PIPERACILLIN/TAZOBACTAM 2.25 GM VIAL IVPB ONE ×3 (00:51→17:37)
[2021-08-06] MEDS ORDERED: DEXTROSE 5%-WATER - 50 ML IVPB ONE ×3 (00:51→17:37)
[2021-08-06] MEDS: PIPERACILLIN/TAZOB 2.25 GM 2.25 GM in DEXTROSE 5%-WATER - 50 ML IVPB SCH ×3 (02:00→17:40)
[2021-08-06] MEDS: traMADol HCL 50 MG TABLET PO PRN ×3 (06:32→21:57)
[2021-08-06] MEDS: FUROSEMIDE 40 MG TABLET (FP) PO SCH ×2 (06:32→14:35)
[2021-08-06] MEDS: INSULIN (LEVEMIR) 100 UNITS/ML UNITS SQ SCH ×2 (06:43→22:01)
[2021-08-06] MEDS: INSULIN SLIDING SCALE (NOVOLOG) 1 VIAL SQ SCH ×4 (06:43→22:00)
[2021-08-06] MEDS: CARVEDILOL 25 MG TABLET (FP) PO SCH ×2 (10:37→21:59)
[2021-08-06] MEDS: SPIRONOLACTONE 25 MG TABLET PO SCH ×2 (10:37→21:58)
[2021-08-06] MEDS: hydrALAZINE HCL 50 MG TABLET (FP) PO SCH ×2 (10:37→21:58)
[2021-08-06] MEDS: PANTOPRAZOLE 20 MG TABLET PO SCH (10:37)
[2021-08-06] MEDS: BACITRACIN 15 GM TUBE TOPICAL OINTMENT TP SCH ×2 (10:38→21:59)
[2021-08-06] MEDS: ISOSORBIDE MONONITRATE 30 MG TAB.SR.24H (FP) PO SCH (10:38)
[2021-08-06] MEDS: BUDESONIDE/FORMETEROL FUMARATE 80/4.5 mcg INHALER IH SCH ×2 (11:03→22:19)
[2021-08-06 11:26] LABS: HEMATOCRIT 26.6 % (35.4-49); HEMOGLOBIN 8.4 GM/dL (11.7-16.9); MCH 28.7 pg (25.7-33.7); MCHC 31.6 g/dl (32.0-35.9); MEAN CELL VOLUME 90.8 fl (80-96); MEAN PLT VOLUME 6.1 fl (7.5-11.1); PLATELET COUNT 764 10^3/uL (134-434); RBC 2.93 M/mm3 (4.00-5.60); RDW 20.9 % (11.9-15.9); WHITE BLOOD COUNT 11.4 K/mm3 (4.0-10.0)
[2021-08-06 11:47] LABS: CALCIUM 9.5 mg/dL (8.5-10.1)
[2021-08-06 11:48] LABS: ALBUMIN 2.2 g/dl (3.4-5.0); BLOOD UREA NITROGEN 40.3 mg/dL (7-18); MAGNESIUM 2.2 mg/dL (1.8-2.4)
[2021-08-06 11:51] LABS: CREATININE 2.3 mg/dL (0.55-1.3)
[2021-08-06 11:52] LABS: TOT PROT 7.8 g/dl (6.4-8.2)
[2021-08-06 11:53] LABS: BILIRUBIN,TOTAL 0.5 mg/dL (0.2-1)
[2021-08-06 12:16] LABS: ANISOCYTOSIS 2+; MACROCYTOSIS 1+
[2021-08-06] MEDS: COLLAGENASE CLOSTRIDIUM HIST. 30 GRAMS TUBE TP SCH (17:01)
[2021-08-06] MEDS: APIXABAN 5 MG TABLET PO SCH (22:00)
[2021-08-07] MEDS ORDERED: DEXTROSE 5%-WATER - 50 ML IVPB ONE ×2 (01:09→08:57)
[2021-08-07] MEDS ORDERED: PIPERACILLIN/TAZOBACTAM 2.25 GM VIAL IVPB ONE ×2 (01:09→08:57)
[2021-08-07] MEDS: PIPERACILLIN/TAZOB 2.25 GM 2.25 GM in DEXTROSE 5%-WATER - 50 ML IVPB SCH ×2 (01:48→09:16)
[2021-08-07] MEDS: FUROSEMIDE 40 MG TABLET (FP) PO SCH (06:10)
[2021-08-07] MEDS: INSULIN SLIDING SCALE (NOVOLOG) 1 VIAL SQ SCH ×2 (06:14→11:57)
[2021-08-07] MEDS: INSULIN (LEVEMIR) 100 UNITS/ML UNITS SQ SCH (06:15)
[2021-08-07 08:59] LABS: BASO % 0.8 % (0-2.0); EOS % 5.7 % (0-4.5); HEMATOCRIT 26.8 % (35.4-49); HEMOGLOBIN 8.6 GM/dL (11.7-16.9); LYMPH % 12.6 % (8-40); MCH 29.3 pg (25.7-33.7); MCHC 32.1 g/dl (32.0-35.9); MEAN CELL VOLUME 91.1 fl (80-96); MEAN PLT VOLUME 6.3 fl (7.5-11.1); MONO % 9.9 % (3.8-10.2); PLATELET COUNT 816 10^3/uL (134-434); RBC 2.94 M/mm3 (4.00-5.60); RDW 20.5 % (11.9-15.9)
[2021-08-07] MEDS: SPIRONOLACTONE 25 MG TABLET PO SCH (09:17)
[2021-08-07] MEDS: APIXABAN 5 MG TABLET PO SCH (09:17)
[2021-08-07] MEDS: hydrALAZINE HCL 50 MG TABLET (FP) PO SCH (09:17)
[2021-08-07] MEDS: PANTOPRAZOLE 20 MG TABLET PO SCH (09:18)
[2021-08-07] MEDS: ISOSORBIDE MONONITRATE 30 MG TAB.SR.24H (FP) PO SCH (09:18)
[2021-08-07] MEDS: CARVEDILOL 25 MG TABLET (FP) PO SCH (09:18)
[2021-08-07] MEDS: BACITRACIN 15 GM TUBE TOPICAL OINTMENT TP SCH (09:18)
[2021-08-07] MEDS: BUDESONIDE/FORMETEROL FUMARATE 80/4.5 mcg INHALER IH SCH (09:19)
[2021-08-07] MEDS: COLLAGENASE CLOSTRIDIUM HIST. 30 GRAMS TUBE TP SCH (09:19)
[2021-08-07 09:20] LABS: ALBUMIN 2.4 g/dl (3.4-5.0); CALCIUM 9.7 mg/dL (8.5-10.1)
[2021-08-07 09:21] LABS: BLOOD UREA NITROGEN 37.4 mg/dL (7-18); MAGNESIUM 2.1 mg/dL (1.8-2.4)
[2021-08-07 09:24] LABS: CREATININE 2.1 mg/dL (0.55-1.3)
[2021-08-07 09:25] LABS: BILIRUBIN,TOTAL 0.4 mg/dL (0.2-1)
[2021-08-07 10:02] LABS: ANISOCYTOSIS 1+; MACROCYTOSIS 1+
[2021-08-07 10:38] VITALS: BP 136/79; PULSE 81; TEMP 97.7
== END 2021-08-07 12:09 | disposition home or self-care (01) | DRG 661 ==
LOC: JER 08:40 → JERBED 14:33 → J4W 07-23 00:11 → J4S 07-23 23:31
PROVIDERS: ADMIT Internal Medicine; ATTEND Nurse Practitioner Acute Care
DX: D68.32 Hemorrhagic disorder due to extrinsic circulating anticoagulants (principal); I13.0 Hypertensive heart and chronic kidney disease with heart failure and stage 1 through stage 4 chronic kidney disease, or unspecified chronic kidney disease; J18.9 Pneumonia, unspecified organism; N17.9 Acute kidney failure, unspecified; I50.33 Acute on chronic diastolic (congestive) heart failure; I27.20 Pulmonary hypertension, unspecified; E11.22 Type 2 diabetes mellitus with diabetic chronic kidney disease; E11.51 Type 2 diabetes mellitus with diabetic peripheral angiopathy without gangrene; R04.2 Hemoptysis; I48.92 Unspecified atrial flutter; E11.65 Type 2 diabetes mellitus with hyperglycemia; L03.115 Cellulitis of right lower limb; L03.116 Cellulitis of left lower limb; E87.1 Hypo-osmolality and hyponatremia; I69.351 Hemiplegia and hemiparesis following cerebral infarction affecting right dominant side; J98.4 Other disorders of lung; N18.30 Chronic kidney disease, stage 3 unspecified; Z79.01 Long term (current) use of anticoagulants; I25.10 Atherosclerotic heart disease of native coronary artery without angina pectoris; J44.9 Chronic obstructive pulmonary disease, unspecified; I42.0 Dilated cardiomyopathy; I71.4 Abdominal aortic aneurysm, without rupture; F14.10 Cocaine abuse, uncomplicated; F10.10 Alcohol abuse, uncomplicated; D64.9 Anemia, unspecified; Z79.4 Long term (current) use of insulin; I25.2 Old myocardial infarction; E78.5 Hyperlipidemia, unspecified; B00.2 Herpesviral gingivostomatitis and pharyngotonsillitis; I48.0 Paroxysmal atrial fibrillation; Z91.14 Patient's other noncompliance with medication regimen; Z86.16 Personal history of COVID-19; E66.9 Obesity, unspecified; Z68.31 Body mass index [BMI] 31.0-31.9, adult; T45.515A Adverse effect of anticoagulants, initial encounter
CPT/HCPCS: 36415; 70450-TC; 71045-TC-FY; 71046-TC-FY; 71250-TC; 76700-TC; 76856-TC; 80048; 80053; 80307; 81003; 82962; 83735; 83880; 84075; 84100; 84484; 85025; 87040; 87070; 87086; 87107; 87116; 87186; 87205; 87206; 93005; 93010; 93970-TC; 94010; 97116-GP; 97161-GP; 99285-25; C9803-CS; U0003; U0005